=== PATIENT | female | born 1940 | race Caucasian/White ===

== ENCOUNTER 2019-12-01 10:47 | Inpatient (IN) | payer OTHER, SELFPAY ==
--- NOTE | 2019-12-01 10:50 | ED.WEAKNESS ---
HPI - Weakness General Chief complaint: Weakness Stated complaint: DIZZY,WEAK FOR DAYS Time Seen by Provider: 12/01/19 10:50 Source: patient and EMS Mode of arrival: EMS Limitations: no limitations History of Present Illness MD Complaint: generalized weakness Onset (ago): day(s) (3) Duration: constant Location: generalized Migration: none Severity: moderate Relieving factors: none Exacerbating factors: movement and exertion Associated symptoms: dysuria, loss of appetite and myalgias Related Data Home Medications Medication Instructions Recorded Confirmed albuterol sulfate mg INHALATION Q6H PRN 11/21/19 11/21/19 apixaban 5 mg tablet 5 mg PO BID 11/21/19 11/21/19 ascorbic acid (vitamin C) 500 mg PO 11/21/19 11/21/19 tablet atorvastatin 40 mg tablet mg PO 11/21/19 11/21/19 carvedilol 12.5 mg tablet 12.5 mg PO BID 11/21/19 11/21/19 cyanocobalamin (vitamin B-12) 1,000 mcg IM 11/21/19 11/21/19 1,000 mcg/mL injection solution dexlansoprazole 30 mg 30 mg PO DAILY 11/21/19 11/21/19 capsule,biphase delayed release duloxetine 30 mg capsule,delayed 30 mg PO DAILY 11/21/19 11/21/19 release fluticasone 500 mcg-salmeterol 50 INHALATION 11/21/19 11/21/19 mcg/dose blistr powdr for inhalation furosemide 40 mg tablet 40 mg PO BID 11/21/19 11/21/19 losartan 25 mg tablet 25 mg PO DAILY 11/21/19 11/21/19 losartan 50 mg tablet 75 mg PO DAILY 11/21/19 11/21/19 potassium chloride 10 mEq 10 meq PO BID 11/21/19 11/21/19 tablet,extended release sucralfate 100 mg/mL oral 10 ml PO BEDTIME 11/21/19 11/21/19 suspension syringe with needle, safety 3 mL #100 ea 11/21/19 11/21/19 25 gauge x 5/8 Previous Rx's Medication Instructions Recorded levothyroxine 100 mcg tablet 100 mcg PO QAM #90 tab 11/23/19 nitroglycerin 0.4 mg sublingual 0.4 mg SUBLINGUAL Q5M PRN #25 tab 11/30/19 tablet Allergies Allergy/AdvReac Type Severity Reaction Status Date / Time morphine [MORPHINE] Allergy Unknown RASH Verified 11/21/19 09:16 pregabalin [From LYRICA] Allergy Unknown NAUSEA, Verified 11/21/19 09:16 felt high on drugs Review of Systems Review of Systems: Constitutional : No Weight loss, No Fever, positive Chills, positive Fatigue, positive Malaise ENT/Mouth : No sore throat, No Rhinorrhea Eyes: No Eye Pain, No Swelling, No Redness Cardiovascular : No Chest Pain, No SOB, No Dyspnea on Exertion, No Orthopnea, No Edema, No Palpitations Respiratory : No Cough, No Sputum, No Wheezing Gastrointestinal : positive Nausea, No Vomiting, No Diarrhea, No Constipation, No abdominal Pain, No Hematochezia, No Melena Genitourinary : No Dysuria, positive hesitancy Musculoskeletal : No joint pain, No Myalgias, No Joint Swelling Skin : No Skin Lesions, No rash Neuro : positive Weakness, No Numbness, positive constant Dizziness, No Headache Psych : No Anxiety/Panic, No Depression Heme/Lymph: No Bruising, No Bleeding,No Lymphadenopathy Endocrine : No Polyuria, No Polydipsia All other systems reviewed and are negative [facility] Past Medical History Medical History (Updated 12/01/19 @ 15:31 by Germania Fraser DO) Afib Anxiety CAD (coronary artery disease) Clostridium difficile colitis Diverticulitis DVT (deep venous thrombosis) GERD (gastroesophageal reflux disease) HTN (hypertension) Hypercholesterolemia Surgical History H/O angioplasty H/O cardiac catheterization H/O: hysterectomy Hx of appendectomy Hx of cholecystectomy Social History Social History Alcohol intake: current Alcohol intake frequency: holidays/special occasions only Smoking Status: Former smoker Smoked in Last 30 Days: No Use of substances other than those prescribed or required for medical reasons: No Advance Directives: No Advance Directives Information Provided: Yes Physical Exam Vital Signs: Vital Signs: Vital Signs Temp Pulse Resp BP Pulse Ox 12/01/19 10:55 97.9 F 89 18 187/79 H 99 Body Mass Index 45.7 Appearance: Alert. Oriented X3. No acute distress. anxious Eyes: Pupils equal, round and reactive to light. ENT: Pharynx normal. Neck: Normal inspection. Neck supple. CVS: Normal heart rate and rhythm. Pulses normal. Respiratory: No respiratory distress. Breath sounds normal. Abdomen: Soft and nontender. Skin: Skin warm and dry. Normal skin color. Normal skin turgor. Extremities: No lower extremity edema. No calf ttp Neuro: Oriented X 3. No motor deficit. No sensory deficit. Course Course Course Narrative: given CT scan started antibiotics as well as rapid covid sent off plan for admit MDM - Weakness MDM Narrative Medical decision making narrative: 79 yo female on eliquis reports malaise, anorexia, feels dizzy all the time, no GIB symptoms, no CP/SOB, has chills at this time will need labs, CT head for ICH, UA, straight cath, gentle fluids, ortho VS, dispo per results and findings Lab Data Result diagrams: 12/01/19 11:32 12/01/19 12:00 Labs: Lab Results 12/01/19 12/01/19 12/01/19 Range/Units 11:31 11:32 11:32 WBC 7.5 (4.8-10.8) X10*3/uL RBC 4.12 L (4.20-5.50) X10*6/uL Hgb 11.8 L (12.0-16.0) g/dl Hct 37.5 (37-47) % MCV 91.0 (80-98) fL MCH 28.6 (27.0-33.0) pg MCHC 31.5 (31.0-35.0) g/dl RDW 12.7 (11.0-16.0) % Plt Count 236 (160-400) X10*3/uL MPV 9.5 (9.4-12.3) fL Immature Gran % (Auto) 0.8 H (0.0-0.4) % Neut % (Auto) 60.8 (45-73) % Lymph % (Auto) 27.5 (20-40) % Cottle % (Auto) 9.0 (2-11) % Eos % (Auto) 1.6 (0-4) % Baso % (Auto) 0.3 (0-2) % Lymph # (Auto) 2.1 (1.2-4.9) X10*3/uL Cottle # (Auto) 0.7 (0.1-1.2) X10*3/uL Eos # (Auto) 0.1 (0.0-0.4) X10*3/uL Baso # (Auto) 0.0 (0.0-0.2) X10*3/uL Abs Immat Gran (auto) 0.06 H (0.00-0.03) X10*3/uL Absolute Neuts (auto) 4.6 (2.0-8.3) X10*3/uL Absolute Nucleated RBC 0.000 (0.0-0.012) X10*3/uL Nucleated RBC % (auto) 0.0 (0.0-0.2) /100WBC PT (10.8-13.0) SEC INR (0.9-1.1) APTT (24.1-38.0) SEC Sodium (135-145) mmol/L Potassium (3.3-5.1) mmol/l Chloride (96-108) mmol/L Carbon Dioxide (22-29) mmol/L Anion Gap (12-20) BUN (9-16) mg/dL Creatinine (0.5-1.4) mg/dL Estim Creat Clear Calc Estimated GFR Random Glucose (60-115) mg/dL Lactic Acid 1.4 (0.5-2.0) mmol/L Calcium (8.4-10.2) mg/dL Magnesium (1.6-2.6) mg/dL Total Bilirubin (0.0-1.0) mg/dL Direct Bilirubin (0.0-0.5) mg/dL AST (5-31) U/L ALT (0-31) U/L Alkaline Phosphatase (39-117) U/L Troponin I High Sens 7.0 (<3.5-17.0) ng/L B-Natriuretic Peptide 99 (<100) pg/mL Total Protein (6.5-8.0) g/dL Albumin (3.5-5.0) g/dL Lipase (8-78) U/L Urine Color Urine Appearance Urine pH (5.0-8.0) Ur Specific [place] (1.005-1.025) Urine Protein (NEG-TRACE) MG/DL Urine Glucose (UA) (NEG) MG/DL Urine Ketones (NEG) MG/DL Urine Blood (NEG) Urine Nitrite (NEG) Ur Leukocyte Esterase (NEG) Urine RBC (0) /HPF Urine WBC (0-4) /HPF Ur Squamous Epith Cells /LPF Calcium Oxalate Crystal /LPF Urine Bacteria /LPF 12/01/19 12/01/19 12/01/19 Range/Units 12:00 12:00 12:17 WBC (4.8-10.8) X10*3/uL RBC (4.20-5.50) X10*6/uL Hgb (12.0-16.0) g/dl Hct (37-47) % MCV (80-98) fL MCH (27.0-33.0) pg MCHC (31.0-35.0) g/dl RDW (11.0-16.0) % Plt Count (160-400) X10*3/uL MPV (9.4-12.3) fL Immature Gran % (Auto) (0.0-0.4) % Neut % (Auto) (45-73) % Lymph % (Auto) (20-40) % Cottle % (Auto) (2-11) % Eos % (Auto) (0-4) % Baso % (Auto) (0-2) % Lymph # (Auto) (1.2-4.9) X10*3/uL [place]le # (Auto) (0.1-1.2) X10*3/uL Eos # (Auto) (0.0-0.4) X10*3/uL Baso # (Auto) (0.0-0.2) X10*3/uL Abs Immat Gran (auto) (0.00-0.03) X10*3/uL Absolute Neuts (auto) (2.0-8.3) X10*3/uL Absolute Nucleated RBC (0.0-0.012) X10*3/uL Nucleated RBC % (auto) (0.0-0.2) /100WBC PT 12.0 (10.8-13.0) SEC INR 1.0 (0.9-1.1) APTT 33.7 (24.1-38.0) SEC Sodium 142 (135-145) mmol/L Potassium 3.9 (3.3-5.1) mmol/l Chloride 106 (96-108) mmol/L Carbon Dioxide 29 (22-29) mmol/L Anion Gap 11 L (12-20) BUN 12 (9-16) mg/dL Creatinine 0.81 (0.5-1.4) mg/dL Estim Creat Clear Calc 64.5 Estimated GFR > 60 Random Glucose 101 (60-115) mg/dL Lactic Acid (0.5-2.0) mmol/L Calcium 8.5 (8.4-10.2) mg/dL Magnesium 1.9 (1.6-2.6) mg/dL Total Bilirubin 0.5 (0.0-1.0) mg/dL Direct Bilirubin 0.2 (0.0-0.5) mg/dL AST 13 (5-31) U/L ALT 11 (0-31) U/L Alkaline Phosphatase 175 H (39-117) U/L Troponin I High Sens (<3.5-17.0) ng/L B-Natriuretic Peptide (<100) pg/mL Total Protein 6.2 L (6.5-8.0) g/dL Albumin 3.7 (3.5-5.0) g/dL Lipase 10 (8-78) U/L Urine Color YELLOW Urine Appearance CLEAR Urine pH 6.0 (5.0-8.0) Ur Specific [place] 1.025 (1.005-1.025) Urine Protein NEG (NEG-TRACE) MG/DL Urine Glucose (UA) NEG (NEG) MG/DL Urine Ketones NEG (NEG) MG/DL Urine Blood NEG (NEG) Urine Nitrite NEG (NEG) Ur Leukocyte Esterase NEG (NEG) Urine RBC 0 (0) /HPF Urine WBC 0-2 (0-4) /HPF Ur Squamous Epith Cells TRACE /LPF Calcium Oxalate Crystal TRACE /LPF Urine Bacteria NONE /LPF ECG Data Attestation: I personally reviewed and interpreted this ECG as follows: ECG interpretation date: 12/01/19 ECG interpretation time: 11:34 Interpretation: Rate: 86 Rhythm: NSR [place]: normal Normal P waves. 1st degree AVB Normal QRS complex. poor R wave progression ST T wave : normal qTC: normal prior studies: no acute ischemia The study has been interpreted contemporaneously by me. . Discharge Plan Discharge Clinical Impression: Weakness, Pneumonia Patient Disposition: Admitted As Inpatient Prescriptions: No Action levothyroxine 100 mcg tablet 100 mcg PO QAM Qty: 90 RF: 1 nitroglycerin 0.4 mg tablet, sublingual 0.4 mg sublingual Q5M PRN (Reason: chest pain) Qty: 25 RF: 0 ascorbic acid (vitamin C) 500 mg tablet PO RF: 0 fluticasone propion-salmeterol 500-50 mcg/dose blister with device inhalation RF: 0 sucralfate 100 mg/mL suspension 10 ml PO BEDTIME RF: 0 Eliquis 5 mg tablet 5 mg PO BID RF: 0 losartan 50 mg tablet 75 mg PO DAILY RF: 0 carvedilol 12.5 mg tablet 12.5 mg PO BID RF: 0 furosemide 40 mg tablet 40 mg PO BID RF: 0 albuterol sulfate 2.5 mg /3 mL (0.083 %) solution for nebulization inhalation Q6H PRNRF: 0 Dexilant 30 mg capsule,biphase delayed releas 30 mg PO DAILY RF: 0 duloxetine 30 mg capsule,delayed release(DR/EC) 30 mg PO DAILY RF: 0 cyanocobalamin (vitamin B-12) 1,000 mcg/mL solution 1,000 mcg IM RF: 0 atorvastatin 40 mg tablet PO RF: 0 losartan 25 mg tablet 25 mg PO DAILY RF: 0 potassium chloride 10 mEq tablet extended release 10 meq PO BID RF: 0 (DME) BD Integra Syringe 3 mL 25 gauge x 5/8 syringe See Rx Instructions ml .ROUTE .MEDSUPPLY Qty: 100 RF: 0
[2019-12-01 10:55] VITALS: BP 187/79; PULSE 89; RESP 18; TEMP 36.6; O2SAT 99; BMI 45.7
--- NOTE | 2019-12-01 11:01 | XR_ITS ---
EXAMINATION: XR CHEST CLINICAL INFORMATION: Weakness COMPARISON: 12/17/2018 TECHNIQUE: Frontal view of the chest was obtained. FINDINGS: Rotated positioning. There is prominence of the cardiac silhouette, accentuated by the rotated positioning. Calcification of the aortic arch. There is opacity in the peripheral aspect of the left lower lung, which could be related to overlapping densities versus underlying airspace disease. Mild patchy opacity in the left upper lobe, new/more prominent than previous, could represent atelectasis or infiltrate. Blunting of the left costophrenic angle, from pleural thickening or trace pleural effusion. Monitor leads overlie the chest. Left shoulder hemiarthroplasty. IMPRESSION: 1. Opacity in the peripheral aspect of the left lower lung, could be related to overlapping densities versus airspace disease. Additional frontal and lateral radiographs can be obtained for further clarification as clinically warranted. Mild patchy opacity in the left upper lobe, could represent atelectasis or infiltrate. 2. Left costophrenic angle pleural thickening or trace pleural effusion.
--- NOTE | 2019-12-01 11:01 | CT_ITS ---
EXAMINATION: CT HEAD WITHOUT CONTRAST CLINICAL INFORMATION: Dizziness on Eliquis. COMPARISON: No prior CTs available for comparison. Correlation with MRI 04/26/2009. TECHNIQUE: Contiguous axial imaging was performed from the skull base to vertex without intravenous administration of contrast. This CT examination was performed using dose optimization techniques as appropriate, variously including the following: *Automated exposure control *Adjustment of mA and/or kV according to patient size (this includes techniques or standardized protocols for targeted exams where dose is matched to indication/reason for exam; i.e. extremities or head) *Use of iterative reconstruction technique DLP: 766 mGy-cm. FINDINGS: There is no evidence of acute intracranial hemorrhage or territorial infarction. No abnormal mass effect or midline shift is seen. [place] to white matter differentiation is well preserved. No extra-axial fluid collections are identified. Basal ganglia calcification. [id number] periventricular and deep white matter hypodensities, more commonly seen with chronic microangiopathic changes. The osseous structures and soft tissues are normal. Mild right ethmoid sinus mucosal thickening. The mastoid air cells and remainder of the visualized portions of the paranasal sinuses are well aerated. IMPRESSION: No CT evidence of acute intracranial pathology. Mild right ethmoid sinus mucosal thickening.
--- NOTE | 2019-12-01 11:01 | ECG_ITS ---
Test Reason : WEAKNESS Blood Pressure : / mmHG Vent. Rate : 086 BPM Atrial Rate : 086 BPM P-R Int : 208 ms QRS Dur : 088 ms QT Int : 370 ms P-R-T Axes : 047 071 104 degrees QTc Int : 442 ms Normal sinus rhythm Nonspecific ST abnormality T-wave inversion in Lateral leads Abnormal ECG When compared with ECG of 12-JUN-2019 10:31, Premature ventricular complexes are no longer Present Nonspecific T wave abnormality, improved in Lateral leads Referred By: Germania Fraser Electronically Signed By:KAN MILLIGAN MD
[2019-12-01] MEDS: Meclizine HCl 25 MG TABLET PO (11:29)
[2019-12-01] MEDS: ondansetron HCL 4 MG/2 ML VIAL IVPUSH (11:29)
[2019-12-01] MEDS: 0.9 % Sodium Chloride 500 ML 1000 ML IV (11:30)
[2019-12-01 11:47] LABS: MANUAL DIFF FLAG NO
[2019-12-01 11:54] LABS: Basophils Percent Auto 0.3 % (0-2); Eosinophils Absolute Auto 0.1 X10*3/uL (0.0-0.4); Eosinophils Percent Auto 1.6 % (0-4); Hematocrit 37.5 % (37-47); Hemoglobin 11.8 g/dl (12.0-16.0); Imm Gran Abs Auto 0.06 X10*3/uL (0.00-0.03); Imm Gran Pct Auto 0.8 % (0.0-0.4); Lymphocytes Absolute Auto 2.1 X10*3/uL (1.2-4.9); Lymphocytes Percent Auto 27.5 % (20-40); Mean Corpuscular HGB Conc 31.5 g/dl (31.0-35.0); Mean Corpuscular Hemoglobin 28.6 pg (27.0-33.0); Mean Platelet Volume 9.5 fL (9.4-12.3); Monocytes Absolute Auto 0.7 X10*3/uL (0.1-1.2); Neutrophils Absolute Auto 4.6 X10*3/uL (2.0-8.3); Neutrophils Percent Auto 60.8 % (45-73); Platelet Count 236 X10*3/uL (160-400); Red Blood Count 4.12 X10*6/uL (4.20-5.50); Red Cell Distribution Width 12.7 % (11.0-16.0); White Blood Count 7.5 X10*3/uL (4.8-10.8)
[2019-12-01 12:14] LABS: Lactic Acid 1.4 mmol/L (0.5-2.0)
[2019-12-01 12:20] LABS: Partial Thromboplastin Time 33.7 SEC (24.1-38.0)
[2019-12-01 12:25] LABS: B Type Natriuretic Peptide 99 pg/mL (<100)
[2019-12-01 12:35] LABS: Alanine Aminotransferase 11 U/L (0-31); Albumin Level 3.7 g/dL (3.5-5.0); Alkaline Phosphatase 175 U/L (39-117); Anion Gap 11 (12-20); Aspartate Amino Transferase 13 U/L (5-31); Bilirubin Direct 0.2 mg/dL (0.0-0.5); Bilirubin Total 0.5 mg/dL (0.0-1.0); Blood Urea Nitrogen 12 mg/dL (9-16); Calcium 8.5 mg/dL (8.4-10.2); Carbon Dioxide 29 mmol/L (22-29); Chloride 106 mmol/L (96-108); Creatinine Clr Calc Pharmacy 64.5; Estimated Glomerular Filt Rate > 60; Glucose Random 101 mg/dL (60-115); Lipase 10 U/L (8-78); Magnesium 1.9 mg/dL (1.6-2.6); Potassium 3.9 mmol/l (3.3-5.1); Sodium 142 mmol/L (135-145); Total Protein 6.2 g/dL (6.5-8.0)
[2019-12-01 12:47] LABS: Glucose Urine UA NEG (NEG); Leukocyte Esterase Urine NEG (NEG); Nitrite Urine NEG (NEG); Specific Gravity - Urine 1.025 (1.005-1.025); Urine Blood NEG (NEG); Urine Ketones NEG (NEG); Urine Protein NEG (NEG-TRACE)
[2019-12-01 12:53] LABS: Appearance Urine CLEAR; Color Urine YELLOW
[2019-12-01 13:19] LABS: RBC Urine 0 /HPF (0); Squamous Epithelial Cell Urine TRACE /LPF; WBC Urine 0-2 /HPF (0-4)
[2019-12-01 13:20] LABS: Calcium Oxalate Crystals Urine TRACE /LPF
--- NOTE | 2019-12-01 13:36 | CT_ITS ---
EXAMINATION: CT CHEST WITHOUT CONTRAST CLINICAL INFORMATION: Evaluate for pneumonia. COMPARISON: Prior chest x-ray from earlier today. TECHNIQUE: Multidetector volumetric CT imaging of the chest was done. Axial MIP volume rendering provided. Sagittal and coronal reformatted images were obtained. This CT examination was performed using dose optimization techniques as appropriate, variously including the following: *Automated exposure control *Adjustment of mA and/or kV according to patient size (this includes techniques or standardized protocols for targeted exams where dose is matched to indication/reason for exam; i.e. extremities or head) *Use of iterative reconstruction technique DLP: 476 mGy-cm FINDINGS: LUNGS: Trachea and central airway are patent. There is airspace and ground-glass opacity in the peripheral aspect of the left lower lobe, as well as in the peripheral left lower lobe. Area of ground-glass opacity in the left upper lobe, for example image 4:18. This could represent infectious or inflammatory process. Mild ground-glass and airspace opacity in the superior peripheral aspect of the left lower lobe. Linear opacities in the inferior lingula adjacent the cardiac silhouette, which could represent atelectasis or infiltrate. MEDIASTINUM: Subcentimeter lymph nodes in the mediastinum, larger measuring 8.5 mm in short axis. No hilar lymphadenopathy. Streak artifact limits evaluation of the thyroid gland. Normal caliber aorta with atherosclerotic vascular calcification. Coronary artery calcification. Normal heart size. No pericardial effusion. There are surgical clips in the posterior mediastinum. PLEURA: There is no pleural effusion. No pleural mass or thickening. AXILLA: No lymphadenopathy. UPPER ABDOMEN: Right renal 4.4 cm cyst. Transverse colon diverticulosis. OSSEOUS STRUCTURES: Multilevel disc degeneration in the visualized thoracolumbar spine. Arthroplasty of the left humerus. IMPRESSION: 1. Airspace opacities and ground glass opacities, in the left upper lobe, left lower lobe, which could reflect infectious or inflammatory process. Linear opacities in the inferior lingula adjacent to the cardiac silhouette could represent atelectasis or infiltrate. 2. Right renal 4.4 cm cyst.
--- NOTE | 2019-12-01 15:51 | PM.EVENT ---
Event Note Event Note: I saw and examined the patient and participated in the alva portion of the E/M service. I agree with the history and exam as documented by [employer]OR [employer]. She presents with weakness, and PNA on CXR. Will admit for IV Abx for PNA, check covid and Physical therapy. Otherwise, I agree with assessment and plan as outlined in the H and P.
[2019-12-01 15:59] VITALS: BP 147/54; PULSE 87; RESP 16
[2019-12-01 16:22] LABS: C Reactive Protein 1.47 mg/dL (< or = 0.50); Lactate Dehydrogenase 89 U/L (122-220)
[2019-12-01 16:27] LABS: Procalcitonin 0.03 ng/mL
[2019-12-01] MEDS: cefTRIAXone sodium 1 GM in 0.9 % Sodium Chloride 50 ML IV (16:37)
[2019-12-01] MEDS: Azithromycin 500 MG TABLET PO (16:38)
[2019-12-01 16:43] LABS: Ferritin 60 ng/mL (10-250)
[2019-12-01 16:44] LABS: SARS COV2 PCR INHOUSE NEGATIVE (Negative)
--- NOTE | 2019-12-01 16:53 | PC.NURSE ---
PT IS A TOUGH STICK. IV LINE INFILTRATED. MULTIPLE RNS ATTEMPTED. PAT RN TO ATTEMPT AND US GUIDED NEEDED.
--- NOTE | 2019-12-01 17:43 | PM.IMHP ---
History of Present Illness Date of Service: 12/01/19 <Marlyn Shook NP - Last Filed: 12/01/19 17:54> Chief Complaint: Weakness <Marlyn Shook NP - Last Filed: 12/01/19 17:54> 79-year-old woman presenting to the ER with complaints of several days of weakness, chills, cough with thick sputum. She denied fever, sick contacts, recent travel. She did report that she has aides that come into her house to help. She denies chest pain, nausea, vomiting, diarrhea. She reported that she was also felt quite weak and having difficulty with ambulation. Chest CT in the ER showed airspace opacities in ground-glass of PC in the left lower lobe left lower lobe. Her coronavirus PCR was negative. She was not noted to have a fever or leukocytosis. All of her labs within acceptable limits. In the ER , she was given a dose of ceftriaxone, azithromycin, Zofran, half a L of IV fluid and meclizine. to be admitted for further management treatment community-acquired pneumonia. <Marlyn Shook NP - Last Filed: 12/01/19 17:54> Review of Systems Review of Systems: Denies any recent fever, or decrease in appetite respiratory See HPI cardiovascular is adjustment of any PND or edema gastrointestinal denies any dysphagia abdominal pain nausea vomiting or diarrhea genitourinary reports dysuria musculoskeletal denies any joint pain or swelling neuropsych denies any weakness or seizures all other systems reviewed are negative <Marlyn Shook NP - Last Filed: 12/01/19 17:54> [facility] Medical History: Medical History (Updated 12/07/19 @ 12:19 by Jet Toribio MD) Afib Anxiety CAD (coronary artery disease) Clostridium difficile colitis Diverticulitis DVT (deep venous thrombosis) GERD (gastroesophageal reflux disease) HTN (hypertension) Hypercholesterolemia <Marlyn Shook NP - Last Filed: 12/01/19 17:54> Functional capacity: uses cane/walker <Marlyn Shook NP - Last Filed: 12/01/19 17:54> Pertinent family history: denies cardiac disease <Marlyn Shook NP - Last Filed: 12/01/19 17:54> Surgical History: Surgical History H/O angioplasty H/O cardiac catheterization H/O: hysterectomy Hx of appendectomy Hx of cholecystectomy <aMrlyn Shook NP - Last Filed: 12/01/19 17:54> Social History: Social History Housing: House Alcohol intake: current Alcohol intake frequency: holidays/special occasions only Smoking Status: Former smoker Second Hand Smoke Exposure: No service: No Current occupational status: retired <Marlyn Shook NP - Last Filed: 12/01/19 17:54> Meds Allergies/Adverse reactions: Allergies Allergy/AdvReac Type Severity Reaction Status Date / Time morphine [MORPHINE] Allergy Unknown RASH Verified 11/21/19 09:16 pregabalin [From LYRICA] Allergy Unknown NAUSEA, Verified 11/21/19 09:16 felt high on drugs <Marlyn Shook NP - Last Filed: 12/01/19 17:54> Home medications: Home Medications Medication Instructions Recorded Confirmed Type ascorbic acid (vitamin C) 500 mg 500 mg PO BID 11/21/19 12/01/19 History tablet atorvastatin 40 mg tablet 40 mg PO BEDTIME 11/21/19 12/01/19 History carvedilol 12.5 mg tablet 12.5 mg PO BID 11/21/19 12/01/19 History cyanocobalamin (vitamin B-12) 1,000 mcg IM Q30D 11/21/19 12/01/19 History 1,000 mcg/mL injection solution dexlansoprazole 30 mg 30 mg PO DAILY 11/21/19 12/01/19 History capsule,biphase delayed release duloxetine 30 mg capsule,delayed 30 mg PO DAILY 11/21/19 12/01/19 History release fluticasone 500 mcg-salmeterol 50 1 inh INHALATION BID 11/21/19 12/01/19 History mcg/dose blistr powdr for inhalation furosemide 40 mg tablet 40 mg PO DAILY 11/21/19 12/01/19 History losartan 50 mg tablet 75 mg PO DAILY 11/21/19 12/01/19 History sucralfate 100 mg/mL oral 1 g PO BEDTIME 11/21/19 12/01/19 History suspension syringe with needle, safety 3 mL #100 ea 11/21/19 11/21/19 History 25 gauge x 5/8 Spiriva with HandiHaler 1 cap INHALATION DAILY 12/01/19 12/01/19 History albuterol sulfate 2.5 mg INHALATION Q6H PRN 12/01/19 12/01/19 History albuterol sulfate [ProAir HFA] 2 puff INHALATION Q4H PRN 12/01/19 12/01/19 History aspirin 81 mg PO DAILY 12/01/19 12/01/19 History cholecalciferol (vitamin D3) 25 mcg PO DAILY 12/01/19 12/01/19 History [Vitamin D3] dicyclomine 10 mg PO QID PRN 12/01/19 12/01/19 History ezetimibe [Zetia] 10 mg PO DAILY 12/01/19 12/01/19 History ferrous sulfate 325 mg PO DAILY 12/01/19 12/01/19 History <Marlyn Shook NP - Last Filed: 12/01/19 17:54> Physical Exam Vital Signs and Narrative: Vital Signs: Last Vital Signs Temp 97.9 F 12/01/19 10:55 Pulse 87 12/01/19 15:59 Resp 16 12/01/19 15:59 BP 147/54 H 12/01/19 15:59 Pulse Ox 99 12/01/19 10:55 Body Mass Index 45.7 <Marlyn Shook NP - Last Filed: 12/01/19 17:54> Appearing in no acute distress head is normocephalic atraumatic eyes pupils are PERRLA sclera is anicteric mouth throat mucous membranes are intact and moist neck is supple no lymphadenopathy, no JVD noted lung sounds diminished throughout heart regular rate rhythm, clear S1, S2 positive bowel sounds, abdomen is soft, nontender, obese neuro patient is alert x3, no focal deficits <Marlyn Shook NP - Last Filed: 12/01/19 17:54> Results Labs Labs: Laboratory Tests 12/01/19 12/01/19 12/01/19 11:31 11:32 11:32 WBC 7.5 RBC 4.12 L Hgb 11.8 L Hct 37.5 MCV 91.0 MCH 28.6 MCHC 31.5 RDW 12.7 Plt Count 236 MPV 9.5 Immature Gran % (Auto) 0.8 H Neut % (Auto) 60.8 Lymph % (Auto) 27.5 Louisa % (Auto) 9.0 Eos % (Auto) 1.6 Baso % (Auto) 0.3 Lymph # (Auto) 2.1 Louisa # (Auto) 0.7 Eos # (Auto) 0.1 Baso # (Auto) 0.0 Abs Immat Gran (auto) 0.06 H Absolute Neuts (auto) 4.6 Absolute Nucleated RBC 0.000 Nucleated RBC % (auto) 0.0 PT INR APTT Sodium Potassium Chloride Carbon Dioxide Anion Gap BUN Creatinine Estim Creat Clear Calc Estimated GFR Random Glucose Lactic Acid 1.4 Calcium Magnesium Ferritin Total Bilirubin Direct Bilirubin AST ALT Alkaline Phosphatase Lactate Dehydrogenase Troponin I High Sens 7.0 C-Reactive Protein B-Natriuretic Peptide 99 Total Protein Albumin Lipase Procalcitonin Urine Color Urine Appearance Urine pH Ur Specific [place] Urine Protein Urine Glucose (UA) Urine Ketones Urine Blood Urine Nitrite Ur Leukocyte Esterase Urine RBC Urine WBC Ur Squamous Epith Cells Calcium Oxalate Crystal Urine Bacteria Coronavirus (PCR) 12/01/19 12/01/19 12/01/19 12:00 12:00 12:00 WBC RBC Hgb Hct MCV MCH MCHC RDW Plt Count MPV Immature Gran % (Auto) Neut % (Auto) Lymph % (Auto) Louisa % (Auto) Eos % (Auto) Baso % (Auto) Lymph # (Auto) Louisa # (Auto) Eos # (Auto) Baso # (Auto) Abs Immat Gran (auto) Absolute Neuts (auto) Absolute Nucleated RBC Nucleated RBC % (auto) PT 12.0 INR 1.0 APTT 33.7 Sodium 142 Potassium 3.9 Chloride 106 Carbon Dioxide 29 Anion Gap 11 L BUN 12 Creatinine 0.81 Estim Creat Clear Calc 64.5 Estimated GFR > 60 Random Glucose 101 Lactic Acid Calcium 8.5 Magnesium 1.9 Ferritin 60 Total Bilirubin 0.5 Direct Bilirubin 0.2 AST 13 ALT 11 Alkaline Phosphatase 175 H Lactate Dehydrogenase 89 L Troponin I High Sens C-Reactive Protein 1.47 H B-Natriuretic Peptide Total Protein 6.2 L Albumin 3.7 Lipase 10 Procalcitonin 0.03 Urine Color Urine Appearance Urine pH Ur Specific [place] Urine Protein Urine Glucose (UA) Urine Ketones Urine Blood Urine Nitrite Ur Leukocyte Esterase Urine RBC Urine WBC Ur Squamous Epith Cells Calcium Oxalate Crystal Urine Bacteria Coronavirus (PCR) 12/01/19 12/01/19 12:17 15:35 WBC RBC Hgb Hct MCV MCH MCHC RDW Plt Count MPV Immature Gran % (Auto) Neut % (Auto) Lymph % (Auto) Louisa % (Auto) Eos % (Auto) Baso % (Auto) Lymph # (Auto) Louisa # (Auto) Eos # (Auto) Baso # (Auto) Abs Immat Gran (auto) Absolute Neuts (auto) Absolute Nucleated RBC Nucleated RBC % (auto) PT INR APTT Sodium Potassium Chloride Carbon Dioxide Anion Gap BUN Creatinine Estim Creat Clear Calc Estimated GFR Random Glucose Lactic Acid Calcium Magnesium Ferritin Total Bilirubin Direct Bilirubin AST ALT Alkaline Phosphatase Lactate Dehydrogenase Troponin I High Sens C-Reactive Protein B-Natriuretic Peptide Total Protein Albumin Lipase Procalcitonin Urine Color YELLOW Urine Appearance CLEAR Urine pH 6.0 Ur Specific [place] 1.025 Urine Protein NEG Urine Glucose (UA) NEG Urine Ketones NEG Urine Blood NEG Urine Nitrite NEG Ur Leukocyte Esterase NEG Urine RBC 0 Urine WBC 0-2 Ur Squamous Epith Cells TRACE Calcium Oxalate Crystal TRACE Urine Bacteria NONE Coronavirus (PCR) NEGATIVE <Marlyn Shook NP - Last Filed: 12/01/19 17:54> Assessment and Plan (1) Community acquired pneumonia: Status: Acute <Marlyn Shook NP - Last Filed: 12/01/19 17:54> (2) Weakness: Status: Acute <Marlyn Shook NP - Last Filed: 12/01/19 17:54> (3) Hypercholesterolemia: Status: Acute <Marlyn Shook NP - Last Filed: 12/01/19 17:54> (4) HTN (hypertension): Status: Inactive <Marlyn Shook NP - Last Filed: 12/01/19 17:54> (5) CAD (coronary artery disease): Status: Acute <Marlyn Shook NP - Last Filed: 12/01/19 17:54> 79-year-old woman admitted with community-acquired pneumonia and weakness. Community-acquired pneumonia. Rocephin, azithromycin, Robitussin for cough, supplemental oxygen as needed. Weakness. Physical therapy evaluation. Hypertension. Home medications. History of atrial fibrillation. Continue Eliquis and carvedilol. History of coronary artery disease. Continue statin and beta-becca. Obesity. BMI 45.7. Likely contributing to worsening medical conditions include hypertension. DVT prophylaxis with Eliquis Case discussed with Dr. Christy Full code <Marlyn Shook NP - Last Filed: 12/01/19 17:54>
--- NOTE | 2019-12-01 17:44 | PC.NURSE ---
CALL FOR REPORT TO [facility]3 STATES UNAWARE OF GETTING THE ADMISSION AND THE BED ISNT CLEAN
--- NOTE | 2019-12-01 18:09 | PC.NURSE ---
REPORT GIVEN TO JANAK ON S3
--- NOTE | 2019-12-01 18:39 | PC.NURSE ---
PT VOIDED IN BED [facility], CLEANED UP AND REPOSITIONED. AWAITING TRANSFER TO [facility] FOR ADMISSION.
--- NOTE | 2019-12-01 20:05 | PC.NURSE ---
raissa guido will call back for report.
[2019-12-01 20:49] VITALS: BP 143/63; PULSE 87; RESP 16; TEMP 36.9; O2SAT 96
[2019-12-01 21:58] VITALS: BP 146/64; PULSE 81; RESP 20; TEMP 36.5; O2SAT 97
[2019-12-01] MEDS: Ascorbic Acid 500 MG TABLET PO (22:35)
[2019-12-01 22:36] VITALS: BP 146/76; PULSE 84
[2019-12-01] MEDS: Apixaban 5 MG TABLET PO (22:36)
[2019-12-01] MEDS: Atorvastatin Calcium 40 MG TABLET PO (22:36)
[2019-12-01] MEDS: carvediloL 12.5 MG TABLET PO (22:36)
[2019-12-01] MEDS: 0.9 % Sodium Chloride Flush 3 ML SYRINGE IVFLUSH (22:49)
[2019-12-01 23:16] VITALS: BP 148/46; PULSE 85; RESP 19; TEMP 36.1
[2019-12-02] VITALS (8 sets, daily range): BP systolic 119–154; BP diastolic 48–73; PULSE 60–84; RESP 16–19; TEMP 35.6–37.1; O2SAT 95–97; BMI 45.7
[2019-12-02] MEDS: Levothyroxine Sodium 100 MCG TABLET PO (05:59)
[2019-12-02 06:23] LABS: MANUAL DIFF FLAG NO
[2019-12-02 06:50] LABS: Basophils Percent Auto 0.3 % (0-2); Eosinophils Absolute Auto 0.1 X10*3/uL (0.0-0.4); Eosinophils Percent Auto 1.7 % (0-4); Hemoglobin 11.2 g/dl (12.0-16.0); Imm Gran Abs Auto 0.04 X10*3/uL (0.00-0.03); Imm Gran Pct Auto 0.6 % (0.0-0.4); Lymphocytes Absolute Auto 2.1 X10*3/uL (1.2-4.9); Lymphocytes Percent Auto 32.6 % (20-40); Mean Corpuscular HGB Conc 31.1 g/dl (31.0-35.0); Mean Corpuscular Hemoglobin 28.8 pg (27.0-33.0); Mean Corpuscular Volume 92.5 fL (80-98); Mean Platelet Volume 9.7 fL (9.4-12.3); Monocytes Absolute Auto 0.8 X10*3/uL (0.1-1.2); Monocytes Percent Auto 11.8 % (2-11); Neutrophils Absolute Auto 3.5 X10*3/uL (2.0-8.3); Platelet Count 203 X10*3/uL (160-400); Red Blood Count 3.89 X10*6/uL (4.20-5.50); Red Cell Distribution Width 12.8 % (11.0-16.0); White Blood Count 6.5 X10*3/uL (4.8-10.8)
[2019-12-02 06:59] LABS: Anion Gap 10 (12-20); Blood Urea Nitrogen 13 mg/dL (9-16); Calcium 8.6 mg/dL (8.4-10.2); Carbon Dioxide 31 mmol/L (22-29); Chloride 107 mmol/L (96-108); Creatinine Clr Calc Pharmacy 64.5; Estimated Glomerular Filt Rate > 60; Glucose Random 104 mg/dL (60-115); Potassium 4.2 mmol/l (3.3-5.1); Sodium 144 mmol/L (135-145)
[2019-12-02] MEDS: Aspirin 81 MG TAB.CHEW PO (08:40)
[2019-12-02] MEDS: carvediloL 12.5 MG TABLET PO ×2 (08:41→21:21)
[2019-12-02] MEDS: Losartan Potassium 25 MG TABLET 75 MG PO (08:41)
[2019-12-02] MEDS: DULoxetine HCl 30 MG CAPSULE.DR PO (08:41)
[2019-12-02] MEDS: Ezetimibe 10 MG TABLET PO (08:41)
[2019-12-02] MEDS: Cholecalciferol (Vitamin D3) 25 MCG TABLET PO (08:41)
[2019-12-02] MEDS: Apixaban 5 MG TABLET PO ×2 (08:41→21:20)
[2019-12-02] MEDS: Ferrous Sulfate 324 MG TABLET.DR PO (08:41)
[2019-12-02] MEDS: Ascorbic Acid 500 MG TABLET PO ×2 (08:42→21:21)
[2019-12-02] MEDS: 0.9 % Sodium Chloride Flush 3 ML SYRINGE IVFLUSH ×3 (08:42→23:34)
--- NOTE | 2019-12-02 13:00 | MHC.CM.PN ---
IMM 12/02/19 Female 79 DX CAP. Pt lives alone with assist [facility] daily x [address] [facility] in place. Pt uses walker/cane as needed. DP home resumption [employer] [facility] + [facility]. CM will follow.
--- NOTE | 2019-12-02 13:01 | HO.PM.IMPN ---
Subjective Subjective Date of Service: 12/02/19 Interval History: Seen in follow up for CAP. Generally still doesn't feel good Physical Exam Vital Signs: Vital Signs: Selected Entries 12/02/19 11:14 Temperature 97.7 F Pulse Rate 77 Respiratory Rate 16 Blood Pressure 135/66 Pulse Oximetry 96 Oxygen Flow Rate 2 Appearing in no acute distress head is normocephalic atraumatic eyes pupils are PERRLA sclera is anicteric mouth throat mucous membranes are intact and moist neck is supple no lymphadenopathy, no JVD noted lung sounds diminished throughout heart regular rate rhythm, clear S1, S2 positive bowel sounds, abdomen is soft, nontender, obese neuro patient is alert x3, no focal deficits Objective Data Current Medications Generic Name Dose Route Start Last Admin Trade Name Freq PRN Reason Stop Dose Admin Acetaminophen 650 mg 12/01/19 20:57 Acetaminophen 325 Mg Tablet PO Q6H PRN Pain, Mild (Pain Scale 1-3) Apixaban 5 mg 12/01/19 21:00 12/02/19 08:41 Apixaban 5 Mg Tablet PO 5 mg BID DANIEL Administration Ascorbic Acid 500 mg 12/01/19 21:00 12/02/19 08:42 Ascorbic Acid 500 Mg Tablet PO 500 mg BID DANIEL Administration Aspirin 81 mg 12/02/19 09:00 12/02/19 08:40 Aspirin 81 Mg Tab.Chew PO 81 mg DAILY DANIEL Administration Atorvastatin Calcium 40 mg 12/01/19 21:00 12/01/19 22:36 Atorvastatin Calcium 40 Mg Tablet PO 40 mg BEDTIME DANIEL Administration Carvedilol 12.5 mg 12/01/19 21:00 12/02/19 08:41 Carvedilol 12.5 Mg Tablet PO 12.5 mg BID DANIEL Administration Protocol Cyanocobalamin 1,000 mcg 12/16/19 10:00 Cyanocobalamin (Vitamin B-12) 1,000 Mcg/Ml Vial IM Q30D DANIEL Dicyclomine HCl 10 mg 12/01/19 20:57 Dicyclomine Hcl 10 Mg Capsule PO QID PRN Abdominal Pain Duloxetine HCl 30 mg 12/02/19 09:00 12/02/19 08:41 Duloxetine Hcl 30 Mg Capsule.Dr PO 30 mg DAILY DANIEL Administration Ezetimibe 10 mg 12/02/19 09:00 12/02/19 08:41 Ezetimibe 10 Mg Tablet PO 10 mg DAILY DANIEL Administration Ferrous Sulfate 324 mg 12/02/19 09:00 12/02/19 08:41 Ferrous Sulfate 324 Mg Tablet. PO 324 mg DAILY DANIEL Administration Furosemide 40 mg 12/01/19 20:57 Furosemide 40 Mg Tablet PO DAILY PRN SWELLING Protocol Guaifenesin/Dextromethorphan 5 ml 12/01/19 20:57 Guaifenesin Dm 100/10/5 Ml 5 Ml Syrup PO Q4H PRN cough Ceftriaxone Sodium 1 gm/ 50 mls @ 100 mls/hr 12/02/19 15:00 Sodium Chloride IV Q24H DANIEL Azithromycin 500 mg/ Sodium 250 mls @ 250 mls/hr 12/02/19 15:00 Chloride IV Q24H DANIEL Levothyroxine Sodium 100 mcg 12/02/19 06:30 12/02/19 05:59 Levothyroxine Sodium 100 Mcg Tablet PO 100 mcg DAILY@0630 DANIEL Administration Losartan Potassium 75 mg 12/02/19 09:00 12/02/19 08:41 Losartan Potassium 25 Mg Tablet PO 75 mg DAILY DANIEL Administration Protocol Nitroglycerin 0.4 mg 12/01/19 20:57 Nitroglycerin 0.4 Mg Tab.Subl SUBLINGUAL Q5M PRN chest pain Non-Formulary Medication 30 mg 12/02/19 09:00 Dexlansoprazole PO DAILY [facility] Ondansetron HCl 4 mg 12/01/19 20:57 Ondansetron Hcl 4 Mg/2 Ml Vial IVPUSH Q8H PRN Nausea and Vomiting Pharmacy Consult 1 each 12/01/19 17:36 Consult Rx Perform Med Rec MISCELLANE ONCE PRN Consult order Potassium Chloride 10 meq 12/01/19 21:00 12/02/19 08:40 Potassium Chloride Er 10 Meq Capsule.Er PO 10 meq BID DANIEL Administration Sodium Chloride 3 ml 12/02/19 00:00 12/02/19 08:42 0.9 % Sodium Chloride Flush 3 Ml Syringe IVFLUSH 3 ml QSHIFT [facility] Administration Sucralfate 1 gm 12/01/19 21:00 12/01/19 22:38 Sucralfate 1 Gm/10 Ml Oral.Susp PO 1 gm BEDTIME DANIEL Administration Vitamin D 25 mcg 12/02/19 09:00 12/02/19 08:41 Cholecalciferol (Vitamin D3) 25 Mcg Tablet PO 25 mcg DAILY DANIEL Administration Labs CBC & Chem 7: 12/02/19 05:56 12/02/19 05:56 Assessment and Plan (1) Community acquired pneumonia: Status: Acute (2) Weakness: Status: Acute (3) Hypercholesterolemia: Status: Acute (4) HTN (hypertension): Status: Inactive (5) CAD (coronary artery disease): Status: Acute Assessment and Plan: 79-year-old woman admitted with community-acquired pneumonia and weakness. Community-acquired pneumonia. Clinically stable, still feels fairly weak Rocephin, azithromycin, Robitussin for cough, supplemental oxygen as needed. Weakness. Physical therapy evaluation before dc Hypertension. Home medications (coreg, Lasix) History of atrial fibrillation. Continue Eliquis and carvedilol. History of coronary artery disease. Continue statin and beta-becca. Obesity. BMI 45.7. Likely contributing to worsening medical conditions include hypertension AFIB rate controlled, continue Coreg and Eliquis
[2019-12-02] MEDS: cefTRIAXone sodium 1 GM in 0.9 % Sodium Chloride 50 ML IV (16:06)
[2019-12-02] MEDS: Azithromycin 500 MG in 0.9 % Sodium Chloride 250 ML 250 MG IV (17:01)
[2019-12-02] MEDS: Atorvastatin Calcium 40 MG TABLET PO (21:21)
[2019-12-03] VITALS (10 sets, daily range): BP systolic 116–160; BP diastolic 58–84; PULSE 73–91; RESP 16–20; TEMP 36.4–36.7; O2SAT 94–98
[2019-12-03] MEDS: Levothyroxine Sodium 100 MCG TABLET PO (06:14)
[2019-12-03] MEDS: Ezetimibe 10 MG TABLET PO (08:56)
[2019-12-03] MEDS: Ascorbic Acid 500 MG TABLET PO ×2 (08:56→20:18)
[2019-12-03] MEDS: DULoxetine HCl 30 MG CAPSULE.DR PO (08:56)
[2019-12-03] MEDS: carvediloL 12.5 MG TABLET PO ×2 (08:56→20:19)
[2019-12-03] MEDS: Ferrous Sulfate 324 MG TABLET.DR PO (08:57)
[2019-12-03] MEDS: Aspirin 81 MG TAB.CHEW PO (08:57)
[2019-12-03] MEDS: Losartan Potassium 25 MG TABLET 75 MG PO (08:57)
[2019-12-03] MEDS: Cholecalciferol (Vitamin D3) 25 MCG TABLET PO (08:57)
[2019-12-03] MEDS: Apixaban 5 MG TABLET PO ×2 (08:57→20:18)
[2019-12-03] MEDS: 0.9 % Sodium Chloride Flush 3 ML SYRINGE IVFLUSH ×3 (08:57→20:19)
--- NOTE | 2019-12-03 11:13 | HO.PM.IMPN ---
Subjective Subjective Interval History: Seen in follow up for CAP. She feels a little better but c/o vertigo this morning. She did well with ambulation Physical Exam Vital Signs: Vital Signs: Vital Signs Temp Pulse Resp BP Pulse Ox 12/03/19 11:01 85 126/59 L 12/03/19 08:57 85 126/59 L 12/03/19 08:56 85 126/59 L 12/03/19 07:17 97.8 F 85 16 126/59 L 95 12/03/19 00:00 97.7 F 79 20 116/58 L 94 12/02/19 21:21 84 147/73 H 12/02/19 19:34 98.7 F 83 18 139/66 95 12/02/19 15:18 98 F 83 18 154/71 H 96 12/02/19 11:14 97.7 F 77 16 135/66 96 Body Mass Index 45.7 Appearing in no acute distress head is normocephalic atraumatic eyes pupils are PERRLA sclera is anicteric mouth throat mucous membranes are intact and moist neck is supple no lymphadenopathy, no JVD noted lung sounds diminished throughout heart regular rate rhythm, clear S1, S2 positive bowel sounds, abdomen is soft, nontender, obese neuro patient is alert x3, no focal deficits Objective Data Current Medications Generic Name Dose Route Start Last Admin Trade Name Francescoq PRN Reason Stop Dose Admin Acetaminophen 650 mg 12/01/19 20:57 Acetaminophen 325 Mg Tablet PO Q6H PRN Pain, Mild (Pain Scale 1-3) Apixaban 5 mg 12/01/19 21:00 12/03/19 08:57 Apixaban 5 Mg Tablet PO 5 mg BID DANIEL Administration Ascorbic Acid 500 mg 12/01/19 21:00 12/03/19 08:56 Ascorbic Acid 500 Mg Tablet PO 500 mg BID DANIEL Administration Aspirin 81 mg 12/02/19 09:00 12/03/19 08:57 Aspirin 81 Mg Tab.Chew PO 81 mg DAILY DANIEL Administration Atorvastatin Calcium 40 mg 12/01/19 21:00 12/02/19 21:21 Atorvastatin Calcium 40 Mg Tablet PO 40 mg BEDTIME DANIEL Administration Carvedilol 12.5 mg 12/01/19 21:00 12/03/19 08:56 Carvedilol 12.5 Mg Tablet PO 12.5 mg BID DANIEL Administration Protocol Cyanocobalamin 1,000 mcg 12/16/19 10:00 Cyanocobalamin (Vitamin B-12) 1,000 Mcg/Ml Vial IM Q30D [facility] Dicyclomine HCl 10 mg 12/01/19 20:57 Dicyclomine Hcl 10 Mg Capsule PO QID PRN Abdominal Pain Duloxetine HCl 30 mg 12/02/19 09:00 12/03/19 08:56 Duloxetine Hcl 30 Mg Capsule. PO 30 mg DAILY DANIEL Administration Ezetimibe 10 mg 12/02/19 09:00 12/03/19 08:56 Ezetimibe 10 Mg Tablet PO 10 mg DAILY DANIEL Administration Ferrous Sulfate 324 mg 12/02/19 09:00 12/03/19 08:57 Ferrous Sulfate 324 Mg Tablet. PO 324 mg DAILY DANIEL Administration Furosemide 40 mg 12/01/19 20:57 Furosemide 40 Mg Tablet PO DAILY PRN SWELLING Protocol Guaifenesin/Dextromethorphan 5 ml 12/01/19 20:57 Guaifenesin Dm 100/10/5 Ml 5 Ml Syrup PO Q4H PRN cough Ceftriaxone Sodium 1 gm/ 50 mls @ 100 mls/hr 12/02/19 15:00 12/02/19 16:36 Sodium Chloride IV Infused Q24H DANIEL Infusion Azithromycin 500 mg/ Sodium 250 mls @ 250 mls/hr 12/02/19 15:00 12/02/19 23:31 Chloride IV Infused Q24H DANIEL Infusion Levothyroxine Sodium 100 mcg 12/02/19 06:30 12/03/19 06:14 Levothyroxine Sodium 100 Mcg Tablet PO 100 mcg DAILY@0630 DANIEL Administration Losartan Potassium 75 mg 12/02/19 09:00 12/03/19 08:57 Losartan Potassium 25 Mg Tablet PO 75 mg DAILY DANIEL Administration Protocol Nitroglycerin 0.4 mg 12/01/19 20:57 Nitroglycerin 0.4 Mg Tab.Subl SUBLINGUAL Q5M PRN chest pain Non-Formulary Medication 30 mg 12/02/19 09:00 Dexlansoprazole PO DAILY [facility] Ondansetron HCl 4 mg 12/01/19 20:57 Ondansetron Hcl 4 Mg/2 Ml Vial IVPUSH Q8H PRN Nausea and Vomiting Pharmacy Consult 1 each 12/01/19 17:36 Consult Rx Perform Med Rec MISCELLANE ONCE PRN Consult order Potassium Chloride 10 meq 12/01/19 21:00 12/03/19 08:57 Potassium Chloride Er 10 Meq Capsule.Er PO 10 meq BID DANIEL Administration Sodium Chloride 3 ml 12/02/19 00:00 12/03/19 08:57 0.9 % Sodium Chloride Flush 3 Ml Syringe IVFLUSH 3 ml QSHIFT DANIEL Administration Sucralfate 1 gm 12/01/19 21:00 12/02/19 21:22 Sucralfate 1 Gm/10 Ml Oral.Susp PO 1 gm BEDTIME DANIEL Administration Vitamin D 25 mcg 12/02/19 09:00 12/03/19 08:57 Cholecalciferol (Vitamin D3) 25 Mcg Tablet PO 25 mcg DAILY DANIEL Administration Labs CBC & Chem 7: 12/02/19 05:56 12/02/19 05:56 Microbiology Microbiology Results: Microbiology 12/01/19 11:59 Blood - Venous Blood Culture - Preliminary No growth after 24 hours. 12/01/19 11:32 Blood - Venous Blood Culture - Preliminary No growth after 24 hours. Assessment and Plan (1) Community acquired pneumonia: Status: Acute (2) Weakness: Status: Acute (3) Hypercholesterolemia: Status: Acute (4) HTN (hypertension): Status: Inactive (5) CAD (coronary artery disease): Status: Acute Assessment and Plan: 79-year-old woman admitted with community-acquired pneumonia and weakness. Community-acquired pneumonia. Clinically stable, still feels fairly weak Rocephin, azithromycin, Robitussin for cough, supplemental oxygen as needed. Change to PO Abx Weakness. Physical therapy is following Hypertension. Home medications (coreg, Lasix) History of atrial fibrillation. Continue Eliquis and carvedilol. History of coronary artery disease. Continue statin and beta-becca. Obesity. BMI 45.7. Likely contributing to worsening medical conditions include hypertension AFIB rate controlled, continue Coreg and Eliquis Vertigo--Benign positional type, will try Meclizine Trnasfer to med surg
[2019-12-03] MEDS: cefTRIAXone sodium 1 GM in 0.9 % Sodium Chloride 50 ML IV (14:20)
[2019-12-03] MEDS: guaiFENesin DM 100/10/5 ML 5 ML SYRUP PO (14:20)
[2019-12-03] MEDS: Azithromycin 500 MG in 0.9 % Sodium Chloride 250 ML 250 MG IV (15:04)
[2019-12-03] MEDS: Atorvastatin Calcium 40 MG TABLET PO (20:18)
[2019-12-03] MEDS: Acetaminophen 325 MG TABLET 650 MG PO (20:18)
[2019-12-04] VITALS (8 sets, daily range): BP systolic 127–149; BP diastolic 63–85; PULSE 72–97; RESP 17–20; TEMP 36.4–36.7; O2SAT 93–95
[2019-12-04] MEDS: ondansetron HCL 4 MG/2 ML VIAL IVPUSH (05:52)
[2019-12-04] MEDS: 0.9 % Sodium Chloride Flush 3 ML SYRINGE IVFLUSH ×3 (09:19→21:53)
[2019-12-04] MEDS: Losartan Potassium 25 MG TABLET 75 MG PO (09:20)
[2019-12-04] MEDS: Aspirin 81 MG TAB.CHEW PO (09:23)
[2019-12-04] MEDS: DULoxetine HCl 30 MG CAPSULE.DR PO (09:23)
[2019-12-04] MEDS: Ezetimibe 10 MG TABLET PO (09:23)
[2019-12-04] MEDS: Cholecalciferol (Vitamin D3) 25 MCG TABLET PO (09:24)
[2019-12-04] MEDS: Ascorbic Acid 500 MG TABLET PO ×2 (09:24→21:52)
[2019-12-04] MEDS: Apixaban 5 MG TABLET PO ×2 (09:24→21:52)
[2019-12-04] MEDS: Ferrous Sulfate 324 MG TABLET.DR PO (09:24)
[2019-12-04] MEDS: carvediloL 12.5 MG TABLET PO ×2 (09:24→21:52)
--- NOTE | 2019-12-04 13:09 | MHC.CM.PN ---
DP Return home with [facility] and [facility] cytogenetic technologist
[2019-12-04] MEDS: cefTRIAXone sodium 1 GM in 0.9 % Sodium Chloride 50 ML IV (16:08)
[2019-12-04] MEDS: Azithromycin 500 MG in 0.9 % Sodium Chloride 250 ML 250 MG IV (16:10)
--- NOTE | 2019-12-04 16:49 | HO.PM.IMPN ---
Subjective Subjective Date of Service: 12/04/19 Interval History: Seen in follow up for CAP. She feels a little better but c/o vertigo this morning. She is overall feeling better, minimal SOB and weakness is better Review of Systems Feel dizzy--vertigo type No SOB weakness if better Physical Exam Vital Signs: Vital Signs: Vital Signs Temp Pulse Resp BP Pulse Ox 12/04/19 15:14 97.6 F 85 18 127/77 93 12/04/19 12:29 97.9 F 72 20 137/63 95 12/04/19 11:17 97 129/68 12/04/19 09:24 97 129/68 12/04/19 09:20 97 129/68 12/04/19 08:00 97.5 F 92 20 149/85 H 95 12/04/19 04:57 97.7 F 79 18 138/78 95 12/03/19 23:42 97.8 F 73 18 136/63 98 12/03/19 20:19 77 134/84 12/03/19 20:05 98.0 F 91 16 134/84 95 Body Mass Index 45.7 Appearing in no acute distress head is normocephalic atraumatic eyes pupils are PERRLA sclera is anicteric mouth throat mucous membranes are intact and moist neck is supple no lymphadenopathy, no JVD noted lung sounds diminished throughout heart regular rate rhythm, clear S1, S2 positive bowel sounds, abdomen is soft, nontender, obese neuro patient is alert x3, no focal deficits Objective Data Current Medications Generic Name Dose Route Start Last Admin Trade Name Freq PRN Reason Stop Dose Admin Acetaminophen 650 mg 12/01/19 20:57 12/03/19 20:18 Acetaminophen 325 Mg Tablet PO 650 mg Q6H PRN Administration Pain, Mild (Pain Scale 1-3) Apixaban 5 mg 12/01/19 21:00 12/04/19 09:24 Apixaban 5 Mg Tablet PO 5 mg BID DANIEL Administration Ascorbic Acid 500 mg 12/01/19 21:00 12/04/19 09:24 Ascorbic Acid 500 Mg Tablet PO 500 mg BID DANIEL Administration Aspirin 81 mg 12/02/19 09:00 12/04/19 09:23 Aspirin 81 Mg Tab.Chew PO 81 mg DAILY DANIEL Administration Atorvastatin Calcium 40 mg 12/01/19 21:00 12/03/19 20:18 Atorvastatin Calcium 40 Mg Tablet PO 40 mg BEDTIME DANIEL Administration Carvedilol 12.5 mg 12/01/19 21:00 12/04/19 09:24 Carvedilol 12.5 Mg Tablet PO 12.5 mg BID DANIEL Administration Protocol Cyanocobalamin 1,000 mcg 12/16/19 10:00 Cyanocobalamin (Vitamin B-12) 1,000 Mcg/Ml Vial IM Q30D DANIEL Dicyclomine HCl 10 mg 12/01/19 20:57 Dicyclomine Hcl 10 Mg Capsule PO QID PRN Abdominal Pain Duloxetine HCl 30 mg 12/02/19 09:00 12/04/19 09:23 Duloxetine Hcl 30 Mg Capsule. PO 30 mg DAILY DANIEL Administration Ezetimibe 10 mg 12/02/19 09:00 12/04/19 09:23 Ezetimibe 10 Mg Tablet PO 10 mg DAILY DANIEL Administration Ferrous Sulfate 324 mg 12/02/19 09:00 12/04/19 09:24 Ferrous Sulfate 324 Mg Tablet. PO 324 mg DAILY DANIEL Administration Furosemide 40 mg 12/01/19 20:57 Furosemide 40 Mg Tablet PO DAILY PRN SWELLING Protocol Guaifenesin/Dextromethorphan 5 ml 12/01/19 20:57 12/03/19 14:20 Guaifenesin Dm 100/10/5 Ml 5 Ml Syrup PO 5 ml Q4H PRN Administration cough Ceftriaxone Sodium 1 gm/ 50 mls @ 100 mls/hr 12/02/19 15:00 12/04/19 16:08 Sodium Chloride IV 100 mls/hr Q24H DANIEL Administration Azithromycin 500 mg/ Sodium 250 mls @ 250 mls/hr 12/02/19 15:00 12/04/19 16:10 Chloride IV 250 mls/hr Q24H DANIEL Administration Levothyroxine Sodium 100 mcg 12/02/19 06:30 12/04/19 05:54 Levothyroxine Sodium 100 Mcg Tablet PO Not Given DAILY@0630 PENDING SALE TO [facility] Losartan Potassium 75 mg 12/02/19 09:00 12/04/19 09:20 Losartan Potassium 25 Mg Tablet PO 75 mg DAILY DANIEL Administration Protocol Nitroglycerin 0.4 mg 12/01/19 20:57 Nitroglycerin 0.4 Mg Tab.Subl SUBLINGUAL Q5M PRN chest pain Omeprazole 40 mg 12/04/19 06:30 12/04/19 06:35 Omeprazole 40 Mg Capsule. PO Not Given DAILY@0630 PENDING [facility] TO [facility] Ondansetron HCl 4 mg 12/01/19 20:57 12/04/19 05:52 Ondansetron Hcl 4 Mg/2 Ml Vial IVPUSH 4 mg Q8H PRN Administration Nausea and Vomiting Pharmacy Consult 1 each 12/01/19 17:36 Consult Rx Perform Med Rec MISCELLANE ONCE PRN Consult order Potassium Chloride 10 meq 12/01/19 21:00 12/04/19 09:23 Potassium Chloride Er 10 Meq Capsule.Er PO 10 meq BID DANIEL Administration Sodium Chloride 3 ml 12/02/19 00:00 12/04/19 16:08 0.9 % Sodium Chloride Flush 3 Ml Syringe IVFLUSH 3 ml QSHIFT DANIEL Administration Sucralfate 1 gm 12/01/19 21:00 12/03/19 20:19 Sucralfate 1 Gm/10 Ml Oral.Susp PO 1 gm BEDTIME DANIEL Administration Vitamin D 25 mcg 12/02/19 09:00 12/04/19 09:24 Cholecalciferol (Vitamin D3) 25 Mcg Tablet PO 25 mcg DAILY DANIEL Administration Labs CBC & Chem 7: 12/02/19 05:56 12/02/19 05:56 Microbiology Microbiology Results: Microbiology 12/01/19 11:59 Blood - Venous Blood Culture - Preliminary No growth after 48 hours. 12/01/19 11:32 Blood - Venous Blood Culture - Preliminary No growth after 48 hours. Assessment and Plan (1) Community acquired pneumonia: Status: Acute (2) Weakness: Status: Acute (3) Hypercholesterolemia: Status: Acute (4) HTN (hypertension): Status: Inactive (5) CAD (coronary artery disease): Status: Acute Assessment and Plan: 79-year-old woman admitted with community-acquired pneumonia and weakness. Community-acquired pneumonia. Clinically stable, still feels fairly weak Rocephin, azithromycin, Robitussin for cough, supplemental oxygen as needed. Change to PO Abx in the morning for d/c Weakness. Home with home PT Hypertension. Home medications (coreg, Lasix) History of atrial fibrillation. Continue Eliquis and carvedilol. History of coronary artery disease. Continue statin and beta-becca. Obesity. BMI 45.7. Likely contributing to worsening medical conditions include hypertension , weight loss advised AFIB rate controlled, continue Coreg and Eliquis Vertigo--Benign positional type, will try Meclizine Trnasfer to med surg if bed needed
[2019-12-04] MEDS: Atorvastatin Calcium 40 MG TABLET PO (21:52)
[2019-12-05] MEDS: Omeprazole 40 MG CAPSULE.DR PO (06:25)
[2019-12-05] MEDS: Levothyroxine Sodium 100 MCG TABLET PO (06:25)
[2019-12-05 07:38] VITALS: PULSE 83; RESP 18; TEMP 36.9; O2SAT 95
[2019-12-05 07:50] VITALS: BP 179/81
[2019-12-05] MEDS: ondansetron HCL 4 MG/2 ML VIAL IVPUSH (08:01)
[2019-12-05] MEDS: 0.9 % Sodium Chloride Flush 3 ML SYRINGE IVFLUSH ×2 (08:02→14:42)
[2019-12-05] MEDS: Furosemide 40 MG TABLET PO (08:03)
[2019-12-05] MEDS: Ascorbic Acid 500 MG TABLET PO ×2 (08:03→21:44)
[2019-12-05] MEDS: Ezetimibe 10 MG TABLET PO (08:03)
[2019-12-05] MEDS: Aspirin 81 MG TAB.CHEW PO (08:03)
[2019-12-05] MEDS: Acetaminophen 325 MG TABLET 650 MG PO (08:03)
[2019-12-05] MEDS: Ferrous Sulfate 324 MG TABLET.DR PO (08:03)
[2019-12-05] MEDS: Apixaban 5 MG TABLET PO ×2 (08:03→21:44)
[2019-12-05] MEDS: DULoxetine HCl 30 MG CAPSULE.DR PO (08:04)
[2019-12-05] MEDS: Cholecalciferol (Vitamin D3) 25 MCG TABLET PO (08:04)
[2019-12-05] MEDS: carvediloL 12.5 MG TABLET PO ×2 (08:04→21:44)
[2019-12-05] MEDS: Losartan Potassium 25 MG TABLET 75 MG PO (08:04)
--- NOTE | 2019-12-05 12:41 | PM.DS ---
DS: Providers Provider Date of admission: 12/01/19 17:36 Date of discharge: 12/01/19 Date of Service: 12/01/19 Primary care physician: Unknown Physician DS: Diagnosis Discharge Diagnosis (1) Community acquired pneumonia: Status: Acute (2) Weakness: Status: Acute (3) Hypercholesterolemia: Status: Acute (4) HTN (hypertension): Status: Inactive (5) CAD (coronary artery disease): Status: Acute DS: Summary Hospital Course Hospital Course: See H and P for detail. 79 year female with AFIB, CAD, DVT, HTN, HLD, CODP who presented with shortness of breath and generalized weakness and found to have Community-acquired pneumonia. COVID test was negative. She was initiated on IV ceftriaxone and azithromycin admitted for further management. During hospitalization patient was continued on azithromycin and ceftriaxone and over the course of hospitalization has significantly improved she is feeling much better she is not hypoxic. She does use oxygen at 2 L by nasal cannula at all time at home. Are she has been evaluated by Physical therapy and overall is feeling better and would like to go home. She will be discharged with Ceftin to complete a 7 day course of antibiotics. Presently has no fever and WBC is normal. Time Spent with Patient Time attestation: Total time spent providing and/or coordinating discharge services: Physical Exam Vital Signs: Vital Signs: Selected Entries 12/07/19 08:00 Temperature 96.9 F Pulse Rate 80 Respiratory Rate 20 Blood Pressure 129/62 Pulse Oximetry 94 Oxygen Delivery Me thod Nasal Cannula Oxygen Flow Rate 2 Appearing in no acute distress head is normocephalic atraumatic eyes pupils are PERRLA sclera is anicteric mouth throat mucous membranes are intact and moist neck is supple no lymphadenopathy, no JVD noted lung sounds diminished throughout heart regular rate rhythm, clear S1, S2 positive bowel sounds, abdomen is soft, nontender, obese neuro patient is alert x3, no focal deficits DS: Data Data Completed and Pending Labs on day of discharge: Preliminary micro results at discharge 12/01/19 11:59 Blood Culture - Preliminary Blood - Venous No growth after 48 hours. 12/01/19 11:32 Blood Culture - Preliminary Blood - Venous No growth after 48 hours. Discharge Plan Discharge Anticipated Discharge Date/Time: 12/07/19 09:48 Patient Disposition: Home Health Service Referrals: [facility] [Other] [facility] [Outside] Physician,Unknown [Primary Care Provider] - Discharge Medications: New cefuroxime axetil 500 mg tablet 500 mg PO BID 3 Days Qty: 6 RF: 0 Continued levothyroxine 100 mcg tablet 100 mcg PO QAM Qty: 90 RF: 1 nitroglycerin 0.4 mg tablet, sublingual 0.4 mg sublingual Q5M PRN (Reason: chest pain) Qty: 25 RF: 0 Spiriva with HandiHaler 18 mcg Capsule, W/Inhalation Device 1 cap INHALATION DAILY RF: 0 ferrous sulfate 325 mg (65 mg iron) Tablet 325 mg PO DAILY RF: 0 aspirin 81 mg Tablet 81 mg PO DAILY RF: 0 cholecalciferol (vitamin D3) [Vitamin D3] 25 mcg (1,000 unit) Capsule 25 mcg PO DAILY RF: 0 albuterol sulfate 2.5 mg /3 mL (0.083 %) Solution For Nebulization 2.5 mg INHALATION Q6H PRN (Reason: Respiratory Distress) RF: 0 dicyclomine 10 mg Capsule 10 mg PO QID PRN (Reason: Abdominal Pain) RF: 0 albuterol sulfate [ProAir HFA] 90 mcg/actuation Hfa Aerosol Inhaler 2 puff INHALATION Q4H PRN (Reason: Respiratory Distress) RF: 0 ezetimibe [Zetia] 10 mg Tablet 10 mg PO DAILY RF: 0 ascorbic acid (vitamin C) 500 mg tablet 500 mg PO BID RF: 0 fluticasone propion-salmeterol 500-50 mcg/dose blister with device 1 inh inhalation BID RF: 0 sucralfate 100 mg/mL suspension 1 g PO BEDTIME RF: 0 Eliquis 5 mg tablet 5 mg PO BID RF: 0 losartan 50 mg tablet 75 mg PO DAILY RF: 0 carvedilol 12.5 mg tablet 12.5 mg PO BID RF: 0 furosemide 40 mg tablet 40 mg PO DAILY RF: 0 Dexilant 30 mg capsule,biphase delayed releas 30 mg PO DAILY RF: 0 duloxetine 30 mg capsule,delayed release(DR/EC) 30 mg PO DAILY RF: 0 cyanocobalamin (vitamin B-12) 1,000 mcg/mL solution 1,000 mcg IM Q30D RF: 0 atorvastatin 40 mg tablet 40 mg PO BEDTIME RF: 0 potassium chloride 10 mEq tablet extended release 10 meq PO BID RF: 0 (DME) BD Integra Syringe 3 mL 25 gauge x 5/8 syringe See Rx Instructions ml .ROUTE .MEDSUPPLY Qty: 100 RF: 0 Discharge Orders: Discharge Order (Routine); Ordered 12/07/19 Ordered By: Jac Christy Diet: advance to your usual diet Activity on Discharge: As tolerated Visit Report Forms: Patient Portal Discharge page Care Plan Goals: To fully recover from pneumonia Health Concerns: pneumonia, you don't have Kaufman virus Plan of Treatment: Use your inhalers as usual, take antibiotics (Ceftin ) as recommended, and follow up with your doctor savannah week. Call for appointment
--- NOTE | 2019-12-05 12:47 | P.PNIM_ITS ---
Subjective Subjective Date of Service: 12/05/19 Interval History: Seen in follow up for CAP. No shortness of breath, but has nausea Review of Systems Gen no fever Resp no sob GI: nausea Physical Exam Vital Signs: Vital Signs: Vital Signs Temp Pulse Resp BP Pulse Ox 12/05/19 07:50 179/81 H 12/05/19 07:38 98.4 F 83 18 95 12/04/19 23:53 98.0 F 83 17 139/65 93 12/04/19 15:14 97.6 F 85 18 127/77 93 Body Mass Index 45.7 Appearing in no acute distress head is normocephalic atraumatic eyes pupils are PERRLA sclera is anicteric mouth throat mucous membranes are intact and moist neck is supple no lymphadenopathy, no JVD noted lung sounds diminished throughout heart regular rate rhythm, clear S1, S2 positive bowel sounds, abdomen is soft, nontender, obese neuro patient is alert x3, no focal deficits Objective Data Current Medications Generic Name Dose Route Start Last Admin Trade Name Freq PRN Reason Stop Dose Admin Acetaminophen 650 mg 12/01/19 20:57 12/05/19 08:03 Acetaminophen 325 Mg Tablet PO 650 mg Q6H PRN Administration Pain, Mild (Pain Scale 1-3) Apixaban 5 mg 12/01/19 21:00 12/05/19 08:03 Apixaban 5 Mg Tablet PO 5 mg BID DANIEL Administration Ascorbic Acid 500 mg 12/01/19 21:00 12/05/19 08:03 Ascorbic Acid 500 Mg Tablet PO 500 mg BID DANIEL Administration Aspirin 81 mg 12/02/19 09:00 12/05/19 08:03 Aspirin 81 Mg Tab.Chew PO 81 mg DAILY DANIEL Administration Atorvastatin Calcium 40 mg 12/01/19 21:00 12/04/19 21:52 Atorvastatin Calcium 40 Mg Tablet PO 40 mg BEDTIME DANIEL Administration Carvedilol 12.5 mg 12/01/19 21:00 12/05/19 08:04 Carvedilol 12.5 Mg Tablet PO 12.5 mg BID DANIEL Administration Protocol Cyanocobalamin 1,000 mcg 12/16/19 10:00 Cyanocobalamin (Vitamin B-12) 1,000 Mcg/Ml Vial IM Q30D DANIEL Dicyclomine HCl 10 mg 12/01/19 20:57 Dicyclomine Hcl 10 Mg Capsule PO QID PRN Abdominal Pain Duloxetine HCl 30 mg 12/02/19 09:00 12/05/19 08:04 Duloxetine Hcl 30 Mg Capsule. PO 30 mg DAILY DANIEL Administration Ezetimibe 10 mg 12/02/19 09:00 12/05/19 08:03 Ezetimibe 10 Mg Tablet PO 10 mg DAILY DANIEL Administration Ferrous Sulfate 324 mg 12/02/19 09:00 12/05/19 08:03 Ferrous Sulfate 324 Mg Tablet. PO 324 mg DAILY DANIEL Administration Furosemide 40 mg 12/01/19 20:57 12/05/19 08:03 Furosemide 40 Mg Tablet PO 40 mg DAILY PRN Administration SWELLING Protocol Guaifenesin/Dextromethorphan 5 ml 12/01/19 20:57 12/03/19 14:20 Guaifenesin Dm 100/10/5 Ml 5 Ml Syrup PO 5 ml Q4H PRN Administration cough Ceftriaxone Sodium 1 gm/ 50 mls @ 100 mls/hr 12/02/19 15:00 12/04/19 17:08 Sodium Chloride IV Infused Q24H DANIEL Infusion Azithromycin 500 mg/ Sodium 250 mls @ 250 mls/hr 12/02/19 15:00 12/04/19 17: 11 Chloride IV Infused Q24H DANIEL Infusion Levothyroxine Sodium 100 mcg 12/02/19 06:30 12/05/19 06:25 Levothyroxine Sodium 100 Mcg Tablet PO 100 mcg DAILY@0630 DANIEL Administration Losartan Potassium 75 mg 12/02/19 09:00 12/05/19 08:04 Losartan Potassium 25 Mg Tablet PO 75 mg DAILY DANIEL Administration Protocol Nitroglycerin 0.4 mg 12/01/19 20:57 Nitroglycerin 0.4 Mg Tab.Subl SUBLINGUAL Q5M PRN chest pain Omeprazole 40 mg 12/04/19 06:30 12/05/19 06:25 Omeprazole 40 Mg Capsule. PO 40 mg DAILY@0630 DANIEL Administration Ondansetron HCl 4 mg 12/01/19 20:57 12/05/19 08:01 Ondansetron Hcl 4 Mg/2 Ml Vial IVPUSH 4 mg Q8H PRN Administration Nausea and Vomiting Ondansetron HCl 4 mg 12/05/19 12:46 Ondansetron Hcl 4 Mg/2 Ml Vial IVPUSH Q8H PRN Nausea and Vomiting Pharmacy Consult 1 each 10/13/20 17:36 Consult Rx Perform Med Rec MISCELLANE ONCE PRN Consult order Potassium Chloride 10 meq 12/01/19 21:00 12/05/19 08:04 Potassium Chloride Er 10 Meq Capsule.Er PO 10 meq BID DANIEL Administration Sodium Chloride 3 ml 12/02/19 00:00 12/05/19 08:02 0.9 % Sodium Chloride Flush 3 Ml Syringe IVFLUSH 3 ml QSHIFT DANIEL Administration Sucralfate 1 gm 12/01/19 21:00 12/04/19 21:52 Sucralfate 1 Gm/10 Ml Oral.Susp PO 1 gm BEDTIME DANIEL Administration Vitamin D 25 mcg 12/02/19 09:00 12/05/19 08:04 Cholecalciferol (Vitamin D3) 25 Mcg Tablet PO 25 mcg DAILY DANIEL Administration Labs CBC & Chem 7: 12/02/19 05:56 12/02/19 05:56 Microbiology Microbiology Results: Microbiology 12/01/19 11:59 Blood - Venous Blood Culture - Preliminary No growth after 48 hours. 12/01/19 11:32 Blood - Venous Blood Culture - Preliminary No growth after 48 hours. Assessment and Plan (1) Community acquired pneumonia: Status: Acute (2) Weakness: Status: Acute (3) Hypercholesterolemia: Status: Acute (4) HTN (hypertension): Status: Inactive (5) CAD (coronary artery disease): Status: Acute Assessment and Plan: 79-year-old woman admitted with community-acquired pneumonia and weakness. Community-acquired pneumonia. Clinically improve. change Ceftriaxone to PO Ceftin Weakness. Home with home PT Hypertension. Home medications (coreg, Lasix) History of atrial fibrillation. Continue Eliquis and carvedilol. History of coronary artery disease. Continue statin and beta-becca. Obesity. BMI 45.7. Likely contributing to worsening medical conditions include hypertension , weight loss advised AFIB rate controlled, continue Coreg and Eliquis Vertigo--Benign positional type, will try Meclizine GI: nause. Matthew Trnasfer to med surg if bed needed
[2019-12-05] MEDS: cefTRIAXone sodium 1 GM in 0.9 % Sodium Chloride 50 ML IV (14:42)
[2019-12-05 15:41] VITALS: BP 145/66; PULSE 75; RESP 16; TEMP 36.5; O2SAT 93
[2019-12-05] MEDS: Azithromycin 500 MG in 0.9 % Sodium Chloride 250 ML 250 MG IV (15:57)
[2019-12-05 21:44] VITALS: BP 133/60; PULSE 77
[2019-12-05] MEDS: Atorvastatin Calcium 40 MG TABLET PO (21:44)
[2019-12-05 23:46] VITALS: BP 106/52; PULSE 73; RESP 20; TEMP 36.7; O2SAT 94
[2019-12-06] VITALS (7 sets, daily range): BP systolic 139–175; BP diastolic 56–82; PULSE 77–86; RESP 18–20; TEMP 36.3–36.4; O2SAT 95–97
[2019-12-06] MEDS: 0.9 % Sodium Chloride Flush 3 ML SYRINGE IVFLUSH ×3 (00:07→15:22)
[2019-12-06] MEDS: Levothyroxine Sodium 100 MCG TABLET PO (05:47)
[2019-12-06] MEDS: Omeprazole 40 MG CAPSULE.DR PO (05:47)
[2019-12-06] MEDS: Ezetimibe 10 MG TABLET PO (08:21)
[2019-12-06] MEDS: Aspirin 81 MG TAB.CHEW PO (08:21)
[2019-12-06] MEDS: Apixaban 5 MG TABLET PO ×2 (08:21→21:35)
[2019-12-06] MEDS: Cholecalciferol (Vitamin D3) 25 MCG TABLET PO (08:22)
[2019-12-06] MEDS: carvediloL 12.5 MG TABLET PO ×2 (08:22→21:35)
[2019-12-06] MEDS: Ferrous Sulfate 324 MG TABLET.DR PO (08:22)
[2019-12-06] MEDS: Ascorbic Acid 500 MG TABLET PO ×2 (08:22→21:36)
[2019-12-06] MEDS: DULoxetine HCl 30 MG CAPSULE.DR PO (08:22)
[2019-12-06] MEDS: Losartan Potassium 25 MG TABLET 75 MG PO (08:25)
[2019-12-06] MEDS: ondansetron HCL 4 MG/2 ML VIAL IVPUSH (08:36)
[2019-12-06] MEDS: Furosemide 40 MG TABLET PO (10:30)
--- NOTE | 2019-12-06 10:36 | HO.PM.IMPN ---
Subjective Subjective Date of Service: 12/06/19 Interval History: Seen in follow up for CAP. vertigo and dizzy Review of Systems Gen: no fever GI: Nausea Neuro: vertigo Resp: no sob Physical Exam Vital Signs: Vital Signs: Vital Signs Temp Pulse Resp BP Pulse Ox 12/06/19 08:25 80 174/81 H 12/06/19 08:22 80 174/81 H 12/06/19 08:00 97.3 F 86 18 97 12/05/19 23:46 98.1 F 73 20 106/52 L 94 12/05/19 21:44 77 133/60 12/05/19 15:41 97.7 F 75 16 145/66 H 93 Body Mass Index 45.7 Appearing in no acute distress head is normocephalic atraumatic eyes pupils are PERRLA sclera is anicteric mouth throat mucous membranes are intact and moist neck is supple no lymphadenopathy, no JVD noted lung sounds diminished throughout heart regular rate rhythm, clear S1, S2 positive bowel sounds, abdomen is soft, nontender, obese neuro patient is alert x3, no focal deficits Objective Data Current Medications Generic Name Dose Route Start Last Admin Trade Name Freq PRN Reason Stop Dose Admin Acetaminophen 650 mg 12/01/19 20:57 12/05/19 08:03 Acetaminophen 325 Mg Tablet PO 650 mg Q6H PRN Administration Pain, Mild (Pain Scale 1-3) Apixaban 5 mg 12/01/19 21:00 12/06/19 08:21 Apixaban 5 Mg Tablet PO 5 mg BID DANIEL Administration Ascorbic Acid 500 mg 12/01/19 21:00 12/06/19 08:22 Ascorbic Acid 500 Mg Tablet PO 500 mg BID DANIEL Administration Aspirin 81 mg 12/02/19 09:00 12/06/19 08:21 Aspirin 81 Mg Tab.Chew PO 81 mg DAILY DANIEL Administration Atorvastatin Calcium 40 mg 12/01/19 21:00 12/05/19 21:44 Atorvastatin Calcium 40 Mg Tablet PO 40 mg BEDTIME DANIEL Administration Carvedilol 12.5 mg 12/01/19 21:00 12/06/19 08:22 Carvedilol 12.5 Mg Tablet PO 12.5 mg BID DANIEL Administration Protocol Cyanocobalamin 1,000 mcg 12/16/19 10:00 Cyanocobalamin (Vitamin B-12) 1,000 Mcg/Ml Vial IM Q30D [facility] Dicyclomine HCl 10 mg 12/01/19 20:57 Dicyclomine Hcl 10 Mg Capsule PO QID PRN Abdominal Pain Duloxetine HCl 30 mg 12/02/19 09:00 12/06/19 08:22 Duloxetine Hcl 30 Mg Capsule. PO 30 mg DAILY DANIEL Administration Ezetimibe 10 mg 12/02/19 09:00 12/06/19 08:21 Ezetimibe 10 Mg Tablet PO 10 mg DAILY DANIEL Administration Ferrous Sulfate 324 mg 12/02/19 09:00 12/06/19 08:22 Ferrous Sulfate 324 Mg Tablet. PO 324 mg DAILY DANIEL Administration Furosemide 40 mg 12/01/19 20:57 12/06/19 10:30 Furosemide 40 Mg Tablet PO 40 mg DAILY PRN Administration SWELLING Protocol Guaifenesin/Dextromethorphan 5 ml 12/01/19 20:57 12/03/19 14:20 Guaifenesin Dm 100/10/5 Ml 5 Ml Syrup PO 5 ml Q4H PRN Administration cough Ceftriaxone Sodium 1 gm/ 50 mls @ 100 mls/hr 12/02/19 15:00 12/05/19 15:55 Sodium Chloride IV Infused Q24H ADNIEL Infusion Azithromycin 500 mg/ Sodium 250 mls @ 250 mls/hr 12/02/19 15:00 12/05/19 18:06 Chloride IV Infused Q24H DANIEL Infusion Promethazine HCl 12.5 mg/ 50.5 mls @ 202 mls/hr 12/05/19 12:51 12/05/19 14:00 Sodium Chloride IV Infused Q4H PRN Infusion Nausea and Vomiting Levothyroxine Sodium 100 mcg 12/02/19 06:30 12/06/19 05:47 Levothyroxine Sodium 100 Mcg Tablet PO 100 mcg DAILY@0630 DANILE Administration Losartan Potassium 75 mg 12/02/19 09:00 12/06/19 08:25 Losartan Potassium 25 Mg Tablet PO 75 mg DAILY DANIEL Administration Protocol Meclizine HCl 12.5 mg 12/06/19 10:33 Meclizine Hcl 12.5 Mg Tablet PO 12/06/19 10:34 ONCE ONE Nitroglycerin 0.4 mg 12/01/19 20:57 Nitroglycerin 0.4 Mg Tab.Subl SUBLINGUAL Q5M PRN chest pain Omeprazole 40 mg 12/04/19 06:30 12/06/19 05:47 Omeprazole 40 Mg Capsule. PO 40 mg DAILY@0630 DANIEL Administration Ondansetron HCl 4 mg 12/01/19 20:57 12/06/19 08:36 Ondansetron Hcl 4 Mg/2 Ml Vial IVPUSH 4 mg Q8H PRN Administration Nausea and Vomiting Pharmacy Consult 1 each 12/01/19 17:36 Consult Rx Perform Med Rec MISCELLANE ONCE PRN Consult order Potassium Chloride 10 meq 12/01/19 21:00 12/06/19 08:22 Potassium Chloride Er 10 Meq Capsule.Er PO 10 meq BID DANIEL Administration Sodium Chloride 3 ml 12/02/19 00:00 12/06/19 08:25 0.9 % Sodium Chloride Flush 3 Ml Syringe IVFLUSH 3 ml QSHIFT DANIEL Administration Sucralfate 1 gm 12/01/19 21:00 12/05/19 21:59 Sucralfate 1 Gm/10 Ml Oral.Susp PO 1 gm BEDTIME DANIEL Administration Vitamin D 25 mcg 12/02/19 09:00 12/06/19 08:22 Cholecalciferol (Vitamin D3) 25 Mcg Tablet PO 25 mcg DAILY DANIEL Administration Labs CBC & Chem 7: 12/02/19 05:56 12/02/19 05:56 Microbiology Microbiology Results: Microbiology 12/01/19 11:59 Blood - Venous Blood Culture - Preliminary No growth after 48 hours. 12/01/19 11:32 Blood - Venous Blood Culture - Preliminary No growth after 48 hours. Assessment and Plan (1) Community acquired pneumonia: Status: Acute (2) Weakness: Status: Acute (3) Hypercholesterolemia: Status: Acute (4) HTN (hypertension): Status: Inactive (5) CAD (coronary artery disease): Status: Acute Assessment and Plan: 79-year-old woman admitted with community-acquired pneumonia and weakness. Community-acquired pneumonia. Clinically improve. change Ceftriaxone to PO Ceftin once nausea improves Weakness. Home with home PT Hypertension. Home medications (coreg, Lasix) History of atrial fibrillation. Continue Eliquis and carvedilol. History of coronary artery disease. Continue statin and beta-becca. Obesity. BMI 45.7. Likely contributing to worsening medical conditions include hypertension , weight loss advised AFIB rate controlled, continue Coreg and Eliquis Vertigo--Benign positional type, will try Meclizine GI: nause. Zofran, Phenergan Trnasfer to med surg if bed needed Discharge tomorrow
[2019-12-06] MEDS: Meclizine HCl 12.5 MG TABLET PO (11:51)
[2019-12-06] MEDS: cefTRIAXone sodium 1 GM in 0.9 % Sodium Chloride 50 ML IV (14:19)
[2019-12-06] MEDS: Azithromycin 500 MG in 0.9 % Sodium Chloride 250 ML 250 MG IV (15:10)
[2019-12-06] MEDS: Atorvastatin Calcium 40 MG TABLET PO (21:35)
[2019-12-07 00:04] VITALS: BP 138/58; PULSE 76; RESP 18; TEMP 36.9; O2SAT 93
[2019-12-07] MEDS: 0.9 % Sodium Chloride Flush 3 ML SYRINGE IVFLUSH ×2 (01:21→08:54)
[2019-12-07 03:48] VITALS: PULSE 75; RESP 18; TEMP 36.5; O2SAT 91
[2019-12-07 04:21] VITALS: BP 109/52
[2019-12-07] MEDS: Levothyroxine Sodium 100 MCG TABLET PO (05:47)
[2019-12-07] MEDS: Omeprazole 40 MG CAPSULE.DR PO (05:47)
[2019-12-07 08:00] VITALS: BP 129/62; PULSE 80; RESP 20; TEMP 36.1; O2SAT 94
--- NOTE | 2019-12-07 08:44 | MHC.CM.PN ---
IMM 12/07/19 DC today with resumption of [facility] and [facility] [facility] services. [facility].
[2019-12-07] MEDS: Apixaban 5 MG TABLET PO (08:53)
[2019-12-07] MEDS: Cholecalciferol (Vitamin D3) 25 MCG TABLET PO (08:54)
[2019-12-07] MEDS: Ascorbic Acid 500 MG TABLET PO (08:54)
[2019-12-07] MEDS: Furosemide 40 MG TABLET PO (08:54)
[2019-12-07] MEDS: Ferrous Sulfate 324 MG TABLET.DR PO (08:54)
[2019-12-07] MEDS: DULoxetine HCl 30 MG CAPSULE.DR PO (08:54)
[2019-12-07] MEDS: Ezetimibe 10 MG TABLET PO (08:54)
[2019-12-07] MEDS: Aspirin 81 MG TAB.CHEW PO (08:54)
[2019-12-07] MEDS: ondansetron HCL 4 MG/2 ML VIAL IVPUSH (08:58)
[2019-12-07] MEDS: Losartan Potassium 25 MG TABLET 75 MG PO (08:58)
[2019-12-07] MEDS: carvediloL 12.5 MG TABLET PO (08:59)
--- NOTE | 2019-12-07 10:00 | HO.PM.IMPN ---
Subjective Subjective Interval History: Seen in follow up for CAP. Still has some vertigo, better with Meclizine Review of Systems Neuro: dizzimes Resp: no sob GI..Nausea Physical Exam Vital Signs: Vital Signs: Vital Signs Temp Pulse Resp BP Pulse Ox 12/07/19 08:00 96.9 F 80 20 129/62 94 12/07/19 04:21 109/52 L 12/07/19 03:48 97.7 F 75 18 91 L 12/07/19 00:04 98.5 F 76 18 138/58 L 93 12/06/19 19:48 97.3 F 79 18 155/64 H 95 12/06/19 15:46 97.3 F 84 18 150/56 H 95 12/06/19 13:37 77 139/62 12/06/19 11:40 97.5 F 78 20 175/82 H 95 Body Mass Index 45.7 Appearing in no acute distress head is normocephalic atraumatic eyes pupils are PERRLA sclera is anicteric mouth throat mucous membranes are intact and moist neck is supple no lymphadenopathy, no JVD noted lung sounds diminished throughout heart regular rate rhythm, clear S1, S2 positive bowel sounds, abdomen is soft, nontender, obese neuro patient is alert x3, no focal deficits Objective Data Current Medications Generic Name Dose Route Start Last Admin Trade Name Francescoq PRN Reason Stop Dose Admin Acetaminophen 650 mg 12/01/19 20:57 12/05/19 08:03 Acetaminophen 325 Mg Tablet PO 650 mg Q6H PRN Administration Pain, Mild (Pain Scale 1-3) Apixaban 5 mg 12/01/19 21:00 12/07/19 08:53 Apixaban 5 Mg Tablet PO 5 mg BID DANIEL Administration Ascorbic Acid 500 mg 12/01/19 21:00 12/07/19 08:54 Ascorbic Acid 500 Mg Tablet PO 500 mg BID DANIEL Administration Aspirin 81 mg 12/02/19 09:00 12/07/19 08:54 Aspirin 81 Mg Tab.Chew PO 81 mg DAILY DANIEL Administration Atorvastatin Calcium 40 mg 12/01/19 21:00 12/06/19 21:35 Atorvastatin Calcium 40 Mg Tablet PO 40 mg BEDTIME DANIEL Administration Carvedilol 12.5 mg 12/01/19 21:00 12/07/19 08:59 Carvedilol 12.5 Mg Tablet PO 12.5 mg BID DANIEL Administration Protocol Cyanocobalamin 1,000 mcg 12/16/19 10:00 Cyanocobalamin (Vitamin B-12) 1,000 Mcg/Ml Vial IM Q30D DANIEL Dicyclomine HCl 10 mg 12/01/19 20:57 Dicyclomine Hcl 10 Mg Capsule PO QID PRN Abdominal Pain Duloxetine HCl 30 mg 12/02/19 09:00 12/07/19 08:54 Duloxetine Hcl 30 Mg Capsule. PO 30 mg DAILY DANIEL Administration Ezetimibe 10 mg 12/02/19 09:00 12/07/19 08:54 Ezetimibe 10 Mg Tablet PO 10 mg DAILY DANIEL Administration Ferrous Sulfate 324 mg 12/02/19 09:00 12/07/19 08:54 Ferrous Sulfate 324 Mg Tablet. PO 324 mg DAILY DANIEL Administration Furosemide 40 mg 12/01/19 20:57 12/07/19 08:54 Furosemide 40 Mg Tablet PO 40 mg DAILY PRN Administration SWELLING Protocol Guaifenesin/Dextromethorphan 5 ml 12/01/19 20:57 12/03/19 14:20 Guaifenesin Dm 100/10/5 Ml 5 Ml Syrup PO 5 ml Q4H PRN Administration cough Ceftriaxone Sodium 1 gm/ 50 mls @ 100 mls/hr 12/02/19 15:00 12/06/19 15:00 Sodium Chloride IV Infused Q24H DANIEL Infusion Azithromycin 500 mg/ Sodium 250 mls @ 250 mls/hr 12/02/19 15:00 12/06/19 17:23 Chloride IV Infused Q24H DANIEL Infusion Promethazine HCl 12.5 mg/ 50.5 mls @ 202 mls/hr 12/05/19 12:51 12/05/19 14:00 Sodium Chloride IV Infused Q4H PRN Infusion Nausea and Vomiting Levothyroxine Sodium 100 mcg 12/02/19 06:30 12/07/19 05:47 Levothyroxine Sodium 100 Mcg Tablet PO 100 mcg DAILY@0630 DANIEL Administration Losartan Potassium 75 mg 12/02/19 09:00 12/07/19 08:58 Losartan Potassium 25 Mg Tablet PO 75 mg DAILY DANIEL Administration Protocol Meclizine HCl 12.5 mg 12/06/19 10:33 Meclizine Hcl 12.5 Mg Tablet PO Q8H PRN Vertigo Nitroglycerin 0.4 mg 12/01/19 20:57 Nitroglycerin 0.4 Mg Tab.Subl SUBLINGUAL Q5M PRN chest pain Omeprazole 40 mg 12/04/19 06:30 12/07/19 05:47 Omeprazole 40 Mg Capsule. PO 40 mg DAILY@0630 DANIEL Administration Ondansetron HCl 4 mg 12/01/19 20:57 12/07/19 08:58 Ondansetron Hcl 4 Mg/2 Ml Vial IVPUSH 4 mg Q8H PRN Administration Nausea and Vomiting Pharmacy Consult 1 each 12/01/19 17:36 Consult Rx Perform Med Rec MISCELLANE ONCE PRN Consult order Potassium Chloride 10 meq 12/01/19 21:00 12/07/19 08:54 Potassium Chloride Er 10 Meq Capsule.Er PO 10 meq BID DANIEL Administration Sodium Chloride 3 ml 12/02/19 00:00 12/07/19 08:54 0.9 % Sodium Chloride Flush 3 Ml Syringe IVFLUSH 3 ml QSHIFT DAINEL Administration Sucralfate 1 gm 12/01/19 21:00 12/06/19 21:35 Sucralfate 1 Gm/10 Ml Oral.Susp PO 1 gm BEDTIME DANIEL Administration Vitamin D 25 mcg 12/02/19 09:00 12/07/19 08:54 Cholecalciferol (Vitamin D3) 25 Mcg Tablet PO 25 mcg DAILY DANIEL Administration Labs CBC & Chem 7: 12/02/19 05:56 12/02/19 05:56 Microbiology Microbiology Results: Microbiology 12/01/19 11:59 Blood - Venous Blood Culture - Final No growth after 5 days. 12/01/19 11:32 Blood - Venous Blood Culture - Final No growth after 5 days. Assessment and Plan (1) Community acquired pneumonia: Status: Acute (2) Weakness: Status: Acute (3) Hypercholesterolemia: Status: Acute (4) HTN (hypertension): Status: Inactive (5) CAD (coronary artery disease): Status: Acute Assessment and Plan: 79-year-old woman admitted with community-acquired pneumonia and weakness. Community-acquired pneumonia. Clinically improve. change Ceftriaxone to PO Ceftin once nausea improves Weakness. Home with home PT Hypertension. Home medications (coreg, Lasix) History of atrial fibrillation. Continue Eliquis and carvedilol. History of coronary artery disease. Continue statin and beta-becca. Obesity. BMI 45.7. Likely contributing to worsening medical conditions include hypertension , weight loss advised AFIB rate controlled, continue Coreg and Eliquis Vertigo--Benign positional type, Tried meclizine, Neuro eval and may benefit from vistular rehab GI: nause. Zofran, Phenergan Trnasfer to med surg if bed needed Discharge probably later today
[2019-12-07 10:42] VITALS: BP 129/62; PULSE 80; O2SAT 94
[2019-12-07 11:27] VITALS: BP 134/64; PULSE 78; RESP 20; TEMP 37; O2SAT 97
--- NOTE | 2019-12-07 12:13 | PM.NEUROCN ---
History of Present Illness Data of Consult Primary Care Provider: Unknown Physician 79 yo woman who started having headache and dizziness (sense of motion) a few days ago. She was admitted in hospital and was diagnosed with penumonia and getting antibiotics. Headache adn dizziness were still there. Dizziness was worse with getting up and around and better at rest. No brainstem symptoms. No ear symptoms. Review of Systems Review of Systems: General: no loss of weight, or fever Neuro: Headache and dizziness Psych: no active issues reported Heart: no SOB or chest pain Lungs: no cough or SOB Extremiteis: no edema Musculoskeletal: no joint pains Sleep: no sleep issues reported skin: no rashes ENT: no URI symptoms Neck: no neck pain PMFSH Past Medical History Medical History (Updated 12/07/19 @ 12:19 by Jet Toribio MD) Afib Anxiety CAD (coronary artery disease) Clostridium difficile colitis Diverticulitis DVT (deep venous thrombosis) GERD (gastroesophageal reflux disease) HTN (hypertension) Hypercholesterolemia Functional capacity: uses cane/walker Surgical History Surgical History H/O angioplasty H/O cardiac catheterization H/O: hysterectomy Hx of appendectomy Hx of cholecystectomy Social History Social History Housing: House Do you presently have visiting nurse or other home services: Yes Alcohol intake: current Alcohol intake frequency: holidays/special occasions only Smoking Status: Former smoker Smoked in Last 30 Days: No Patient Interested in Nicotine Replacement: No Patient Given Instructions on How to Stop Smoking: No Second Hand Smoke Exposure: No Use of substances other than those prescribed or required for medical reasons: No Currently Displaying Signs/Symptoms of Drug Intoxication Withdrawal: No Any prior treatment program specific to substance use: No Have you been hit, kicked, punched, or otherwise hurt by someone within the past year? If so, by whom?: No Do you feel safe in your current relationship?: No Current Relationship Is there a partner from a previous relationship who is making you feel unsafe now?: No Are you made to feel afraid or neglected: No Advance Directives: No Advance Directives Information Provided: Yes Do you have thoughts of harming others: None Do you have a plan to hurt others: No Plan Recently lost weight without trying: No service: No Current occupational status: retired [email or web address] Allergies Allergy/AdvReac Type Severity Reaction Status Date / Time morphine [MORPHINE] Allergy Unknown RASH Verified 11/21/19 09:16 pregabalin [From LYRICA] Allergy Unknown NAUSEA, Verified 11/21/19 09:16 felt high on drugs Home Medications Medication Instructions Recorded Confirmed Type apixaban 5 mg tablet 5 mg PO BID 11/21/19 12/01/19 History ascorbic acid (vitamin C) 500 mg 500 mg PO BID 11/21/19 12/01/19 History tablet atorvastatin 40 mg tablet 40 mg PO BEDTIME 11/21/19 12/01/19 History carvedilol 12.5 mg tablet 12.5 mg PO BID 11/21/19 12/01/19 History cyanocobalamin (vitamin B-12) 1,000 mcg IM Q30D 11/21/19 12/01/19 History 1,000 mcg/mL injection solution dexlansoprazole 30 mg 30 mg PO DAILY 11/21/19 12/01/19 History capsule,biphase delayed release duloxetine 30 mg capsule,delayed 30 mg PO DAILY 11/21/19 12/01/19 History release fluticasone 500 mcg-salmeterol 50 1 inh INHALATION BID 11/21/19 12/01/19 History mcg/dose blistr powdr for inhalation furosemide 40 mg tablet 40 mg PO DAILY 11/21/19 12/01/19 History losartan 50 mg tablet 75 mg PO DAILY 11/21/19 12/01/19 History potassium chloride 10 mEq 10 meq PO BID 11/21/19 12/01/19 History tablet,extended release sucralfate 100 mg/mL oral 1 g PO BEDTIME 11/21/19 12/01/19 History suspension syringe with needle, safety 3 mL #100 ea 11/21/19 11/21/19 History 25 gauge x 5/8 albuterol sulfate 2.5 mg INHALATION Q6H PRN 12/01/19 12/01/19 History albuterol sulfate [ProAir HFA] 2 puff INHALATION Q4H PRN 12/01/19 12/01/19 History aspirin 81 mg PO DAILY 12/01/19 12/01/19 History cholecalciferol (vitamin D3) 25 mcg PO DAILY 12/01/19 12/01/19 History [Vitamin D3] dicyclomine 10 mg PO QID PRN 12/01/19 12/01/19 History ezetimibe [Zetia] 10 mg PO DAILY 12/01/19 12/01/19 History ferrous sulfate 325 mg PO DAILY 12/01/19 12/01/19 History tiotropium bromide [Spiriva with 1 cap INHALATION DAILY 12/01/19 12/01/19 History HandiHaler] Physical Exam Vital Signs: Vital Signs: Vital Signs Temp Pulse Resp BP Pulse Ox 12/07/19 11:27 98.6 F 78 20 134/64 97 12/07/19 10:42 80 129/62 94 12/07/19 08:00 96.9 F 80 20 129/62 94 12/07/19 04:21 109/52 L 12/07/19 03:48 97.7 F 75 18 91 L 12/07/19 00:04 98.5 F 76 18 138/58 L 93 12/06/19 19:48 97.3 F 79 18 155/64 H 95 12/06/19 15:46 97.3 F 84 18 150/56 H 95 12/06/19 13:37 77 139/62 Body Mass Index 45.7 Mental status examination: Normal attention, orientation, memory and affect Cranial Nerve examination: Pupils are equal, round and reactive to light. External ocular muscles are intact. Visual diallo are full. Face is symmetrical. Facial sensations are normal. Tongue is midline. Palate elevates symmetrically. Shoulder shrugging is normal. Hearing to bedside conversation is normal. Motor examination: Normal muscle tone, bulk and strength, Deep tendon reflexes are 2+. Plantar reflexes are flexor bilaterally. Cerebellar examination: Finger to nose is normal. Speech: Normal. Extrapyramidal system: Within normal limits. Involuntary movements: None. Results Labs CBC & Chem 7: 12/02/19 05:56 12/02/19 05:56 Microbiology Microbiology Results: Microbiology 12/01/19 11:59 Blood - Venous Blood Culture - Final No growth after 5 days. 12/01/19 11:32 Blood - Venous Blood Culture - Final No growth after [address] brain: OK Assessment and Plan (1) Dizziness: Status: Acute Infection related dizziness and headache. use PRN meds. No neuro tests needed
[2019-12-07] MEDS: Meclizine HCl 12.5 MG TABLET PO (12:21)
== END 2019-12-07 15:45 | disposition home health service (06) | DRG 194 ==
LOC: HO.ED 15:31 → HO.IMC 18:20
PROVIDERS: Nurse Practitioner Acute Care; Admitting Provider Internal Medicine; Emergency Provider Emergency Medicine; Visit Provider Internal Medicine
DX: J18.9 Pneumonia, unspecified organism (principal); Z68.42 Body mass index [BMI] 45.0-49.9, adult; F41.9 Anxiety disorder, unspecified; I25.10 Atherosclerotic heart disease of native coronary artery without angina pectoris; K21.9 Gastro-esophageal reflux disease without esophagitis; E78.00 Pure hypercholesterolemia, unspecified; Z87.891 Personal history of nicotine dependence; E66.9 Obesity, unspecified; H81.10 Benign paroxysmal vertigo, unspecified ear; Z20.828 Contact with and (suspected) exposure to other viral communicable diseases; Z86.718 Personal history of other venous thrombosis and embolism; Z88.5 Allergy status to narcotic agent; Z79.01 Long term (current) use of anticoagulants; Z79.52 Long term (current) use of systemic steroids; Z79.82 Long term (current) use of aspirin; Z79.890 Hormone replacement therapy; Z79.899 Other long term (current) drug therapy
CPT/HCPCS: 36415; 70450; 71045; 71250; 80048; 80076; 81001; 81003; 82728; 83605; 83615; 83690; 83735; 83880; 84145; 84484; 85025; 85610; 85730; 86140; 87040; 87635; 93005; 96365; 97110; 97116; 97162; 99223; 99285; J2405

== ENCOUNTER → 2020-01-07 11:20 | Outpatient (BNVA) | payer OTHER, SELFPAY | PROVIDERS: PCP Internal Medicine; Referring Provider Internal Medicine; Visit Provider Internal Medicine | DX: J44.9 Chronic obstructive pulmonary disease, unspecified (principal); J98.4 Other disorders of lung; J96.91 Respiratory failure, unspecified with hypoxia; G47.33 Obstructive sleep apnea (adult) (pediatric); E66.01 Morbid (severe) obesity due to excess calories; Z79.899 Other long term (current) drug therapy | CPT/HCPCS: 99212 ==

== ENCOUNTER 2020-01-25 09:51 | Outpatient (REF) | payer OTHER, SELFPAY ==
--- NOTE | 2020-01-25 10:17 | XR_ITS ---
EXAMINATION: XR CHEST CLINICAL INFORMATION: Hemoptysis COMPARISON: Previous chest x-ray and chest CT November 2012 TECHNIQUE: 2 views of the chest were obtained. FINDINGS: The cardiac and mediastinal contours are stable. The lungs are clear. There is no pleural effusion or pneumothorax. There are surgical clips in the region of the GE junction/distal esophagus. There is a left humeral prosthesis. There are degenerative changes of the spine and mild scoliosis. XR/XR chest 2V IMPRESSION: No evidence for acute disease in the chest.
[2020-01-25 10:29] LABS: MANUAL DIFF FLAG NO
[2020-01-25 10:38] LABS: Basophils Percent Auto 0.2 % (0-2); Eosinophils Absolute Auto 0.1 X10*3/uL (0.0-0.4); Eosinophils Percent Auto 0.7 % (0-4); Hemoglobin 11.8 g/dl (12.0-16.0); Imm Gran Abs Auto 0.04 X10*3/uL (0.00-0.03); Imm Gran Pct Auto 0.5 % (0.0-0.4); Lymphocytes Absolute Auto 2.2 X10*3/uL (1.2-4.9); Lymphocytes Percent Auto 27.7 % (20-40); Mean Corpuscular HGB Conc 31.9 g/dl (31.0-35.0); Mean Corpuscular Hemoglobin 29.1 pg (27.0-33.0); Mean Corpuscular Volume 91.4 fL (80-98); Mean Platelet Volume 9.5 fL (9.4-12.3); Monocytes Absolute Auto 0.7 X10*3/uL (0.1-1.2); Monocytes Percent Auto 8.6 % (2-11); Neutrophils Percent Auto 62.3 % (45-73); Platelet Count 263 X10*3/uL (160-400); Red Blood Count 4.05 X10*6/uL (4.20-5.50); Red Cell Distribution Width 13.1 % (11.0-16.0); Retic HGB Equivalent 31.3 pg (30.0-35.0); Reticulocyte Percent 2.2 % (0.5-1.8); Reticulocytes Absolute 0.089 X10*6/uL (0.026-0.095); White Blood Count 8.1 X10*3/uL (4.8-10.8)
[2020-01-25 11:03] LABS: Alanine Aminotransferase 18 U/L (0-31); Albumin Level 3.7 g/dL (3.5-5.0); Alkaline Phosphatase 182 U/L (39-117); Anion Gap 13 (12-20); Aspartate Amino Transferase 18 U/L (5-31); Bilirubin Total 0.5 mg/dL (0.0-1.0); Blood Urea Nitrogen 20 mg/dL (9-16); Calcium 8.8 mg/dL (8.4-10.2); Carbon Dioxide 30 mmol/L (22-29); Chloride 104 mmol/L (96-108); Estimated Glomerular Filt Rate > 60; Glucose Random 112 mg/dL (60-115); Iron 63 mcg/dL (30-160); Percent Iron Saturation 21 % (15-50); Potassium 3.8 mmol/l (3.3-5.1); Sodium 143 mmol/L (135-145); Total Iron Binding Capacity 299 mcg/dL (228-428); Total Protein 6.5 g/dL (6.5-8.0); Unsaturated Iron Binding 236 ug/dL
[2020-01-25 11:25] LABS: Ferritin 45 ng/mL (10-250); Thyroid Stimulating Hormone 4.72 uIU/mL (0.32-4.0)
[2020-01-25 11:54] LABS: Vitamin B12 675 pg/mL (200-900)
== END 2020-01-25 09:52 | disposition home or self-care (01) ==
LOC: HO.LAB 09:51
PROVIDERS: PCP Internal Medicine; Visit Provider Internal Medicine
DX: R04.2 Hemoptysis (principal)
CPT/HCPCS: 36415; 71046; 80053; 82607; 82728; 82746; 83540; 84443; 85025; 85045

== ENCOUNTER 2020-02-22 09:53 | Outpatient (REF) | payer OTHER, SELFPAY ==
--- NOTE | 2020-02-22 09:59 | XR_ITS ---
EXAMINATION: XR SINUSES CLINICAL INFORMATION: Nasal congestion COMPARISON: Previous head CT scan November 2019 and sinus x-rays November 2015 TECHNIQUE: 3 views of the sinuses were obtained. FINDINGS: There is increased soft tissue attenuation of the left maxillary sinus questionable for sinusitis. The left paranasal sinus appears smaller than the right when compared with previous CT scan of the brain November 2019 and may account for some of the apparent changes on x-ray. No air-fluid level is seen. The paranasal sinuses are otherwise clear. Bony structures are unremarkable. XR/XR sinus min 3V IMPRESSION: Increased soft tissue attenuation of the left maxillary sinus compared to the right questionable for sinusitis. Some of these changes may be due to small size of the left maxillary sinus compared to the right when compared with prior CT scan.
--- NOTE | 2020-02-22 09:59 | US_ITS ---
EXAMINATION: US ABDOMINAL AORTA CLINICAL INFORMATION: Aortic aneurysm. COMPARISON: CT abdomen and pelvis 12/21/2018 TECHNIQUE: Retroperitoneal ultrasound imaging with attention to abdominal aorta was performed. FINDINGS: The proximal abdominal aorta measures 2.5 x 2.7 cm. The mid abdominal aorta measures 3.3 x 3.8 cm.] The distal abdominal aorta measures 2.3 x 2.5 cm. The exam was discontinued as the patient was unable to tolerate the exam further. Hence, the common iliac arteries and the peak systolic velocity of the abdominal aorta was not obtained. US/US abdominal aortic aneurysm IMPRESSION: Mild aneurysmal dilatation of the abdominal aorta measuring 3.8 x 3.3 cm. On the previous CT abdomen exam 12/21/2018, it measured approximately 3.3 x 3.1 cm and minimal thrombus around the right and left aortic frazier. Both the common and external iliac arteries were not evaluated. Peak systolic velocity of the aorta was not evaluated as the patient could not tolerate the exam and the exam was stopped.
== END 2020-02-22 09:54 | disposition home or self-care (01) ==
LOC: HO.US 09:53
PROVIDERS: PCP Internal Medicine; Visit Provider Internal Medicine
DX: I71.4 Abdominal aortic aneurysm, without rupture (principal); R09.81 Nasal congestion
CPT/HCPCS: 70220; 76706

== ENCOUNTER 2020-05-31 10:03 | Outpatient (REF) | payer OTHER, SELFPAY ==
[2020-05-31 11:17] LABS: Venous Blood Gas Refer to POC result
[2020-05-31 11:19] LABS: VBG Base Excess 6.3 mmol/L; VBG HCO3 32 mmol/L (22-26); VBG pCO2 54 mmHg; VBG pH 7.39 (7.32-7.43); VBG pO2 34 mmHg
[2020-05-31 11:55] LABS: Thyroid Stimulating Hormone 3.68 uIU/mL (0.32-4.0)
[2020-05-31 12:13] LABS: Glucose Urine UA NEG (NEG); Leukocyte Esterase Urine NEG (NEG); Nitrite Urine NEG (NEG); Specific Gravity - Urine 1.025 (1.005-1.025); Urine Blood NEG (NEG); Urine Ketones NEG (NEG); Urine Protein NEG (NEG-TRACE)
[2020-05-31 12:14] LABS: Appearance Urine HAZY; Color Urine YELLOW
== END 2020-05-31 10:04 | disposition home or self-care (01) ==
LOC: HO.LAB 10:03
PROVIDERS: Internal Medicine; PCP Internal Medicine; Visit Provider Internal Medicine
DX: J44.9 Chronic obstructive pulmonary disease, unspecified (principal); J98.4 Other disorders of lung; J96.91 Respiratory failure, unspecified with hypoxia; G47.33 Obstructive sleep apnea (adult) (pediatric); E66.01 Morbid (severe) obesity due to excess calories; E03.9 Hypothyroidism, unspecified; R30.0 Dysuria
CPT/HCPCS: 36415; 81003; 84439; 84443; 99212

== ENCOUNTER 2020-07-27 10:04 | Outpatient (REF) | payer OTHER, SELFPAY ==
[2020-07-27 11:40] LABS: MANUAL DIFF FLAG NO
[2020-07-27 11:49] LABS: Basophils Percent Auto 0.2 % (0-2); Eosinophils Absolute Auto 0.1 X10*3/uL (0.0-0.4); Eosinophils Percent Auto 1.2 % (0-4); Hematocrit 37.3 % (37-47); Hemoglobin 11.7 g/dl (12.0-16.0); Imm Gran Abs Auto 0.09 X10*3/uL (0.00-0.03); Imm Gran Pct Auto 1.1 % (0.0-0.4); Immature Retic Fraction 22.1 % (3.0-15.9); Lymphocytes Absolute Auto 2.1 X10*3/uL (1.2-4.9); Lymphocytes Percent Auto 25.2 % (20-40); Mean Corpuscular HGB Conc 31.4 g/dl (31.0-35.0); Mean Corpuscular Hemoglobin 28.6 pg (27.0-33.0); Mean Corpuscular Volume 91.2 fL (80-98); Mean Platelet Volume 9.9 fL (9.4-12.3); Monocytes Absolute Auto 0.8 X10*3/uL (0.1-1.2); Monocytes Percent Auto 9.7 % (2-11); Neutrophils Absolute Auto 5.1 X10*3/uL (2.0-8.3); Neutrophils Percent Auto 62.6 % (45-73); Platelet Count 300 X10*3/uL (160-400); Red Blood Count 4.09 X10*6/uL (4.20-5.50); Red Cell Distribution Width 13.2 % (11.0-16.0); Retic HGB Equivalent 30.5 pg (30.0-35.0); Reticulocyte Percent 1.9 % (0.5-1.8); Reticulocytes Absolute 0.077 X10*6/uL (0.026-0.095); White Blood Count 8.2 X10*3/uL (4.8-10.8)
[2020-07-27 12:15] LABS: B Type Natriuretic Peptide 68 pg/mL (<100)
[2020-07-27 12:54] LABS: Alanine Aminotransferase 15 U/L (0-31); Albumin Level 3.5 g/dL (3.5-5.0); Alkaline Phosphatase 190 U/L (39-117); Anion Gap 13 (12-20); Aspartate Amino Transferase 18 U/L (5-31); Bilirubin Total 0.4 mg/dL (0.0-1.0); Blood Urea Nitrogen 17 mg/dL (9-16); Calcium 9.2 mg/dL (8.4-10.2); Carbon Dioxide 27 mmol/L (22-29); Chloride 107 mmol/L (96-108); Cholesterol 165 mg/dL; Estimated Glomerular Filt Rate 59; Folate 8.9 ng/mL (> or = 4.0); Glucose Random 110 mg/dL (60-115); HDL Cholesterol 33 mg/dL; Iron 59 mcg/dL (30-160); LDL Cholesterol Calculated 88 mg/dl; Percent Iron Saturation 20 % (15-50); Potassium 4.2 mmol/L (3.3-5.1); Sodium 143 mmol/L (135-145); Total Iron Binding Capacity 300 mcg/dL (228-428); Total Protein 6.2 g/dL (6.5-8.0); Triglycerides 224 mg/dL; Unsaturated Iron Binding 241 ug/dL; Vitamin B12 > 2000 pg/mL (200-900)
[2020-07-27 12:58] LABS: Free T4 (Free Thyroxine) 0.87 ng/dL (0.71-1.85); Thyroid Stimulating Hormone 4.25 uIU/mL (0.32-4.0); Vitamin D 25-OH Total 16.9 ng/mL (>30)
[2020-07-27 13:32] LABS: Ferritin 51 ng/mL (10-250)
== END 2020-07-27 10:05 | disposition home or self-care (01) ==
LOC: HO.LAB 10:04
PROVIDERS: PCP Internal Medicine; Visit Provider Internal Medicine
DX: I11.0 Hypertensive heart disease with heart failure (principal); I50.32 Chronic diastolic (congestive) heart failure; I25.10 Atherosclerotic heart disease of native coronary artery without angina pectoris; E78.00 Pure hypercholesterolemia, unspecified; E03.9 Hypothyroidism, unspecified
CPT/HCPCS: 36415; 80053; 80061; 82306; 82607; 82728; 82746; 83540; 83880; 84439; 84443; 85025; 85045

== ENCOUNTER 2020-09-16 10:06 | Outpatient (REF) | payer OTHER, SELFPAY ==
[2020-09-16 11:31] LABS: Free T4 (Free Thyroxine) 0.93 ng/dL (0.71-1.85); Thyroid Stimulating Hormone 3.62 uIU/mL (0.32-4.0)
== END 2020-09-16 10:07 | disposition home or self-care (01) ==
LOC: HO.LAB 10:06
PROVIDERS: PCP Internal Medicine; Visit Provider Internal Medicine
DX: E03.9 Hypothyroidism, unspecified (principal)
CPT/HCPCS: 36415; 84439; 84443

== ENCOUNTER 2020-10-21 10:20 | Outpatient (REF) | payer OTHER, SELFPAY ==
--- NOTE | ~2020-10-21 | MM_ITS ---
EXAMINATION: BONE DENSITOMETRY CLINICAL INDICATION: Other specified disorders of bone density and structure. COMPARISON: Previous BD dated 09/25/2011 and baseline BD dated 03/22/2009. TECHNIQUE: Using a [employer] DXA System (software version: 13.1) manufactured by [employer], dual-energy x-ray absorptiometry was performed of the spine and left hip. The images are of good technical quality. Summary results are attached. FINDINGS: AP SPINE L1-L4 (excluding L3): The data of L1-L4 has been changed to exclude the L3 vertebral body, because levocurvature and degenerative changes at this level may cause overestimation of lumbar spine density. Current: BMD 0.945 g/cm2, Z-score -1.2, T-score -1.9, osteopenia, 5.2% decrease from previous, 4.8% decrease from baseline (<5% change is not significant). Prior: BMD 0.997 g/cm2. Baseline: BMD 0.993 g/cm2. LEFT FEMUR, NECK: Current: BMD 0.698 g/cm2, Z-score -1.0, T-score -2.4, osteopenia. Prior: BMD 0.773 g/cm2. Baseline: BMD 0.796 g/cm2. LEFT FEMUR, TOTAL: Current: BMD 0.806 g/cm2, Z-score -0.4, T-score -1.6, osteopenia, 4.2% decrease from previous, 6.7% decrease from baseline (<5% change is not significant). Prior: BMD 0.841 g/cm2. Baseline: BMD 0.864 g/cm2. IDENTIFIED RISK FACTORS: Height loss. Early menopause, secondary osteoporosis, anticonvulsants, hysterectomy, bilateral oophorectomy. HISTORY OF FRACTURE: None listed. MEDICATIONS: Calcium supplements or multivitamin, vitamin D. MM/XR DEXA axial skeleton IMPRESSION: 1. DIAGNOSIS: Osteopenia based on the lowest T-score value of -2.4 in the femoral neck applying World Health Organization criteria. 2. 10-YEAR FRACTURE RISK PREDICTION, FRAX: Major osteoporotic fracture (clinical spine, forearm, hip or shoulder) 16.2%. Hip fracture 5.2%. 3. Treatment Recommendations: NOF guidelines recommend consideration for treatment in postmenopausal women and men age 50 and older presenting with the following: -A hip or vertebral (clinical or morphometric) fracture. -T-score less than or equal to -2.5 at the femoral neck or spine after appropriate evaluation to exclude secondary causes. -Low bone mass at the hip or spine and a 10-year fracture probability by FRAX of greater than or equal to 3% for hip fracture or greater than or equal to 20% for major osteoporotic fracture based on the [place] adapted WHO algorithm. 4. Other Recommendations: All treatment decisions require clinical judgment and consideration of individual patient factors, including patient preferences, comorbidities, previous drug use, risk factors not captured in the FRAX model (e.g. frailty, falls, vitamin D deficiency, increased bone turnover, interval significant decline in bone density) and possible under or overestimation of fracture risk by FRAX. Additional medical evaluation for secondary cause of low bone mineral density may be appropriate. FUTURE SCAN RECOMMENDATION: People with diagnosed cases of osteoporosis or at high risk for fracture should have regular bone mineral density tests. For patients eligible for Medicare, routine testing is allowed once every 2 years. The testing frequency can be increased to one year for patients who have rapidly progressing disease, those who are receiving or discontinuing medical therapy to restore bone mass, or have additional risk factors.
== END 2020-10-21 10:21 | disposition home or self-care (01) ==
LOC: HO.MAMMO 10:20
PROVIDERS: PCP Internal Medicine; Visit Provider Internal Medicine
DX: Z13.820 Encounter for screening for osteoporosis (principal); M85.80 Other specified disorders of bone density and structure, unspecified site; Z78.0 Asymptomatic menopausal state; Z98.890 Other specified postprocedural states; Z90.722 Acquired absence of ovaries, bilateral; Z79.899 Other long term (current) drug therapy
CPT/HCPCS: 77080

== ENCOUNTER → 2020-10-27 08:59 | Outpatient (BNVA) | payer OTHER, SELFPAY | PROVIDERS: PCP Internal Medicine; Visit Provider Internal Medicine | DX: J43.1 Panlobular emphysema (principal); J98.4 Other disorders of lung; J96.91 Respiratory failure, unspecified with hypoxia; J96.92 Respiratory failure, unspecified with hypercapnia | CPT/HCPCS: 99212 ==

== ENCOUNTER → 2021-01-11 12:49 | Outpatient (BNVA) | payer OTHER, SELFPAY | PROVIDERS: PCP Internal Medicine; Visit Provider Anesthesiology | DX: M47.816 Spondylosis without myelopathy or radiculopathy, lumbar region (principal); M51.36 Other intervertebral disc degeneration, lumbar region; G89.4 Chronic pain syndrome | CPT/HCPCS: 99202 ==

== ENCOUNTER 2021-02-02 11:03 | Outpatient (REF) | payer OTHER, SELFPAY ==
[2021-02-02 11:46] LABS: Basophils Percent Auto 0.3 % (0-2); Eosinophils Absolute Auto 0.1 X10*3/uL (0.0-0.4); Eosinophils Percent Auto 0.5 % (0-4); Hematocrit 41.2 % (37.0-47.0); Hemoglobin 13.1 g/dl (12.0-16.0); Imm Gran Abs Auto 0.06 X10*3/uL (0.00-0.03); Imm Gran Pct Auto 0.6 % (0.0-0.4); Lymphocytes Absolute Auto 2.5 X10*3/uL (1.2-4.9); Lymphocytes Percent Auto 26.4 % (20-40); MANUAL DIFF FLAG NO; Mean Corpuscular HGB Conc 31.8 g/dl (31.0-35.0); Mean Corpuscular Hemoglobin 28.7 pg (27.0-33.0); Mean Corpuscular Volume 90.4 fL (80.0-98.0); Mean Platelet Volume 9.6 fL (9.4-12.3); Monocytes Absolute Auto 0.8 X10*3/uL (0.1-1.2); Monocytes Percent Auto 8.3 % (2-11); Neutrophils Percent Auto 63.9 % (45-73); Platelet Count 289 X10*3/uL (160-400); Red Blood Count 4.56 X10*6/uL (4.20-5.50); Red Cell Distribution Width 13.6 % (11.0-16.0); White Blood Count 9.5 X10*3/uL (4.8-10.8)
[2021-02-02 11:52] LABS: Estimated Average Glucose 114 mg/dL; Hemoglobin A1C 150.9048 umol/L; Hemoglobin A1c % 5.6 %
[2021-02-02 12:14] LABS: Alanine Aminotransferase 12 U/L (0-31); Alkaline Phosphatase 158 U/L (39-117); Anion Gap 14 (12-20); Aspartate Amino Transferase 16 U/L (5-31); Bilirubin Total 0.6 mg/dL (0.0-1.0); Blood Urea Nitrogen 19 mg/dL (9-16); C Reactive Protein 2.52 mg/dL (< or = 0.50); Calcium 9.5 mg/dL (8.4-10.2); Carbon Dioxide 30 mmol/L (22-29); Chloride 103 mmol/L (96-108); Estimated Glomerular Filt Rate 34; Glucose Random 104 mg/dL (60-115); Potassium 3.8 mmol/L (3.3-5.1); Sodium 143 mmol/L (135-145); Total Protein 6.9 g/dL (6.5-8.0)
[2021-02-02 12:20] LABS: B Type Natriuretic Peptide 98 pg/mL (<100)
[2021-02-02 12:35] LABS: Free T4 (Free Thyroxine) 0.91 ng/dL (0.71-1.85); Thyroid Stimulating Hormone 5.29 uIU/mL (0.32-4.0)
[2021-02-02 13:10] LABS: Erythrocyte Sedimentation Rate 44 MM/HR (0-20)
== END 2021-02-02 11:04 | disposition home or self-care (01) ==
LOC: HO.LAB 11:03
PROVIDERS: PCP Internal Medicine; Visit Provider Internal Medicine
DX: L65.9 Nonscarring hair loss, unspecified (principal); E11.65 Type 2 diabetes mellitus with hyperglycemia
CPT/HCPCS: 36415; 80053; 83036; 83880; 84439; 84443; 85025; 85652; 86140

== ENCOUNTER 2021-02-19 11:01 | Inpatient (IN) | payer OTHER, SELFPAY ==
[2021-02-19] VITALS (11 sets, daily range): BP systolic 114–140; BP diastolic 50–75; PULSE 50–111; RESP 16–22; TEMP 36.4–37.1; O2SAT 18–99; BMI 38.1
--- NOTE | ~2021-02-19 | CT_ITS ---
EXAMINATION: CT ANGIOGRAM OF THE CHEST WITH AND WITHOUT CONTRAST (CT PULMONARY ANGIOGRAM FOR PE) CLINICAL INFORMATION: Reason for Exam Shortness of breath, cough, pleuritic chest pain. COMPARISON: CT chest 12/01/2019 TECHNIQUE: Prior to contrast administration, noncontrast localization images were obtained. Subsequently, multidetector volumetric imaging was performed from the thoracic inlet to below the diaphragms following the administration of 65 mL Omnipaque 350 intravenous contrast. No contrast reaction reported Sagittal, coronal, and MIP oblique sagittal reformatted images were obtained on the CT workstation, uploaded to PACS, and reviewed. This CT examination was performed using dose optimization techniques as appropriate, variously including the following: *Automated exposure control *Adjustment of mA and/or kV according to patient size (this includes techniques or standardized protocols for targeted exams where dose is matched to indication/reason for exam; i.e. extremities or head) *Use of iterative reconstruction technique Total exam dose-length product 649 mGy-cm FINDINGS: QUALITY OF STUDY/CONTRAST BOLUS: Satisfactory. PULMONARY ARTERIES: No central or segmental pulmonary emboli. THORACIC AORTA: No aneurysm or dissection. There are scattered vascular wall calcifications of the aorta. LUNG: No acute airways disease. Small area of chronic unchanged subpleural parenchymal scarring at the posterior left upper lobe adjacent to major fissure. The central bronchial airways are open. No interstitial lung disease. No suspicious lung nodules. PLEURA: No pleural effusion or pneumothorax. MEDIASTINUM: Normal heart size. No pericardial effusion. No evidence of septal bowing or right heart strain.. There is an enlarged precarinal lymph node measuring 1.2 cm in short axis diameter. Axial image 19/64 series 5. This previously measured 0.8 cm on CAT scan 12/01/2019. There are a few smaller subcentimeter lymph nodes in the pretracheal retrovascular space and AP window CHEST WALL/AXILLA: No axillary or internal mammary lymphadenopathy. OSSEOUS STRUCTURES: No acute or suspicious osseous abnormality. UPPER ABDOMEN: Surgical clips at GE junction. Exophytic cyst upper pole right kidney measuring 5 cm. No follow-up imaging is recommended for simple renal cyst.. No reflux of contrast into the hepatic veins to suggest elevated right heart pressures. CT/CT angio chest PE protocol IMPRESSION: 1. No evidence of pulmonary embolism 2. Mildly enlarged precarinal lymph node in the mediastinum. VTE: negative
--- NOTE | ~2021-02-19 | XR_ITS ---
EXAMINATION: XR CHEST CLINICAL INFORMATION: Shortness of breath, cough. COMPARISON: 01/25/2020 chest radiographs. TECHNIQUE: Frontal view of the chest was obtained. FINDINGS: Minimal linear markings are seen in the left midlung. The right lung is clear. The heart and mediastinal structures are unremarkable. XR/XR chest 1V IMPRESSION: Minimal left midlung atelectasis versus scarring. No acute cardiopulmonary process.
--- NOTE | 2021-02-19 11:18 | ED.URI ---
HPI - URI/Sore Throat General Chief Complaint: Upper Respiratory Symptoms Stated Complaint: GENERAL WEAKNESS,ON HOME O2 Time Seen by Provider: 02/19/21 11:18 Source: patient Mode of arrival: ambulatory Limitations: no limitations History of Present Illness HPI Narrative: This is an 88-year-old female past medical history significant for type 2 diabetes, renal insufficiency, COPD, CAD, hypertension, CRISTA, atrial fibrillation and heart failure presenting to the emergency department with 1 week of malaise, body aches, cough, sore throat, shortness of breath, fevers/chills. Patient tells me that her cough has been productive in nature of green sputum. She tells me that she feels like her body aches started all of a sudden. She also reports shortness of breath, patient uses 2 L via nasal cannula at baseline. She tells me she has had no sick contacts. She is vaccinated against COVID-19. She denies headache, dizziness, vision changes, chest pain, abdominal pain, nausea, vomiting. MD elicited complaint: cough (productive), sore throat and other (Body aches ) Onset (ago): week(s) (1) Consistency: constant Severity: moderate Able to tolerate fluids by mouth: Yes Exacerbating factors: nothing Relieving factors: nothing Associated symptoms: denies other symptoms Treatments prior to arrival: none Related Data Home Medications Medication Instructions Recorded Confirmed sucralfate 100 mg/mL oral 1 g PO BEDTIME 11/21/19 10/05/20 suspension aspirin 81 mg tablet 81 mg PO DAILY 12/01/19 10/05/20 cholecalciferol (vitamin D3) 25 25 mcg PO DAILY 12/01/19 10/05/20 mcg (1,000 unit) capsule (Vitamin D3) dicyclomine 10 mg capsule 10 mg PO QID PRN 12/01/19 10/05/20 ferrous sulfate 325 mg (65 mg 325 mg PO DAILY 12/01/19 10/05/20 iron) tablet Previous Rx's Medication Instructions Recorded docusate sodium 100 mg capsule 100 mg PO BID PRN #60 cap 02/16/20 dexlansoprazole 30 mg 30 mg PO DAILY #90 cap 04/21/20 capsule,biphase delayed release (Dexilant) PUREWICK #90 ea 04/25/20 furosemide 40 mg tablet 40 mg PO BID #180 tab 05/04/20 syringe with needle, safety 3 mL 1 ml TOPICAL Q4W #3 ea 05/08/20 25 gauge x 5/8 (BD Integra Syringe) ascorbic acid (vitamin C) 500 mg 500 mg PO BID #180 tab 05/13/20 tablet levothyroxine 100 mcg tablet 100 mcg PO QAM #90 tab 05/26/20 atorvastatin 40 mg tablet 40 mg PO DAILY #90 tab 06/08/20 ezetimibe 10 mg tablet 10 mg PO DAILY #90 tab 06/19/20 apixaban 5 mg tablet (Eliquis) 5 mg PO BID 90 Days #180 tab 08/04/20 duloxetine 30 mg capsule,delayed 30 mg PO DAILY #90 cap 08/04/20 release clotrimazole 1 % topical cream See Rx Instructions TOPICAL BID 08/31/20 #45 g stair lift and ramp #1 ea 08/31/20 Accu-Chek Ruth Plus Meter #1 ea NS 09/02/20 (blood-glucose meter) Accu-Chek Ruth Plus test strp #100 ea NS 09/02/20 (blood sugar diagnostic) Accu-Chek Softclix Lancets #100 ea NS 09/02/20 (lancets) blood sugar diagnostic (OneTouch #100 ea 09/14/20 Ultra Test) blood-glucose meter (OneTouch #1 ea 09/14/20 Ultra2 Meter) lancets (OneTouch UltraSoft #100 ea 09/14/20 Lancets) blood sugar diagnostic (OneTouch #50 ea 09/16/20 Ultra Test) blood-glucose meter (OneTouch #1 ea 09/16/20 UltraMini) lancets (OneTouch UltraSoft #100 ea 09/16/20 Lancets) fluticasone 500 mcg-salmeterol 50 1 inh INHALATION BID #60 ea 09/19/20 mcg/dose blistr powdr for inhalation losartan 50 mg tablet 75 mg PO DAILY #45 tab 09/26/20 Wheelchair Ramp #1 ea 10/06/20 Transfer Bench #1 ea 11/01/20 blood pressure monitor (Blood #1 ea 11/03/20 Pressure Kit) carvedilol 25 mg tablet 25 mg PO BID 90 Days #180 tab 11/09/20 cyanocobalamin (vitamin B-12) 1,000 mcg IM Q4W 90 Days #4 ml 11/09/20 1,000 mcg/mL injection solution semaglutide 1 mg/dose (4 mg/3 mL) 1 mg (0.75 mL) SUBCUT QWEEK 30 11/23/20 subcutaneous pen injector Days #3.75 ml tizanidine 4 mg capsule 4 mg PO BEDTIME PRN #30 cap 11/29/20 potassium chloride 10 mEq 10 meq PO BID #180 tab 12/05/20 tablet,extended release nitroglycerin 0.4 mg sublingual 0.4 mg SUBLINGUAL Q5M PRN 90 Days 01/02/21 tablet #25 tab meclizine 12.5 mg tablet 12.5 mg PO DAILY PRN #30 tab 01/08/21 tiotropium bromide 18 mcg capsule 1 cap INHALATION DAILY #90 ea 01/08/21 with inhalation device (Spiriva with HandiHaler) albuterol sulfate 90 mcg/actuation 2 puff PO Q4H PRN #8.5 ea 01/13/21 aerosol inhaler albuterol sulfate 2.5 mg (3 mL) INHALATION Q6H PRN 01/17/21 #450 ml ipratropium 0.5 mg-albuterol 3 mg 3 ml INHALATION Q4-6H PRN 30 Days 01/18/21 (2.5 mg base)/3 mL nebulization #180 ml [facility] #1 ea 01/23/21 [id number]-birztamdo 3.5 4 drp OTIC (EAR) LEFT Q8H 5 Days 02/07/21 mg-10,000 unit/mL-1 % ear #10 ml drops,susp Allergies Allergy/AdvReac Type Severity Reaction Status Date / Time morphine [MORPHINE] Allergy Unknown RASH Verified 01/23/21 10:38 pregabalin [From LYRICA] Allergy Unknown NAUSEA, Verified 01/23/21 10:38 felt high on drugs Review of Systems Review of Systems: Constitutional : No Weight loss, + Fever, + Chills, No Fatigue, No Malaise ENT/Mouth : + sore throat, No Rhinorrhea Eyes: No Eye Pain, No Swelling, No Redness Cardiovascular : No Chest Pain, + SOB, + Dyspnea on Exertion, No Orthopnea, No Edema, No Palpitations Respiratory : No Cough, No Sputum, No Wheezing Gastrointestinal : No Nausea, No Vomiting, No Diarrhea, No Constipation, No abdominal Pain, No Hematochezia, No Melena Genitourinary : No Dysuria, No Urinary Frequency, No Hematuria, Musculoskeletal : No joint pain, No Myalgias, No Joint Swelling Skin : No Skin Lesions, No rash Neuro : No Weakness, No Numbness, No Dizziness, No Headache All other systems reviewed and are negative Yes all other systems are reviewed and are negative [facility] Past Medical History Attestation statement: The following information was validated with the patient. 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 Diarrhea Diverticulitis DVT (deep venous thrombosis) Fibromyalgia GERD (gastroesophageal reflux disease) History of spinal stenosis HTN (hypertension) Hypercholesterolemia Hypothyroid Low back pain Lower extremity weakness Nasal congestion Obesity (BMI 30-39.9) Obstructive sleep apnea Otitis externa Paroxysmal atrial fibrillation Pernicious anemia Respiratory failure with hypoxia and hypercapnia Restrictive lung disease Spondylosis of lumbar spine Surgical History H/O angioplasty H/O cardiac catheterization History of arthroplasty of left shoulder Hx of appendectomy Hx of cholecystectomy S/P BREANN-BSO (total abdominal hysterectomy and bilateral salpingo-oophorectomy) Family History Family History Father Hypertension CVD (cardiovascular disease) Mother Colon cancer Sister Leukemia Sister Colon cancer Son Lung cancer Colon polyps Social History Social History Housing: Apartment Do you presently have visiting nurse or other home services: Yes Alcohol intake: current Alcohol intake frequency: holidays/special occasions only Patient Tobacco Use Status: Former Tobacco user Tobacco use type: Cigarette Years Smoked: stopped 2009 e-Cigarette/Vaping Use: Never Used Second Hand Smoke Exposure: No Advance Directives: No Advance Directives Information Provided: No service: No Current occupational status: retired Current occupational exposures/hazards: No Physical Exam Vital Signs: Vital Signs: Last Vital Signs Temp 97.5 F 02/19/21 18:31 Pulse 111 H 02/19/21 18:31 Resp 20 02/19/21 18:31 BP 130/72 02/19/21 18:31 Pulse Ox 95 02/19/21 18:31 Oxygen Flow Rate 2 02/19/21 11:11 BMI result Body Mass Index 38.1 VSS patient on 2L via nasal canula Appearance: Alert.? Oriented X3.? No acute distress.? Head: Normocephalic, atraumatic, no step-offs or deformities Eyes: Pupils equal, round and reactive to light.? ENT: Pharynx normal.? Neck: Normal inspection.? Neck supple.? CVS: Normal heart rate and rhythm.? Pulses normal.? Respiratory: No respiratory distress.? Breath sounds normal.? Abdomen: Soft and nontender.? Skin: Skin warm and dry.? Normal skin color.? Normal skin turgor.? Extremities: 1+ pitting edema b/l.? No calf ttp. 5/5 strength to bilateral upper and lower extremities Back: No midline tenderness, no C-spine tenderness, full range of motion, no CVA tenderness bilaterally Neuro: Oriented X 3.? No motor deficit.? No sensory deficit. Course Reevaluation(s) Reevaluation #1: No leukocytosis, no anemia. Troponin is noted to be elevated 30.7, will repeat this in 3 hours. BNP 90. No acute electrolyte abnormalities. Carbon dioxide is noted to be slightly elevated however, this appears to be patient's baseline. is COVID negative. Cxray no acute findings. At this time this CTA of the chest has been ordered due to patient's pleuritic chest pain, PE can not be ruled out using PERC criteria. Time: 12:57 Reevaluation #2: CTA is negative for VTE/PE. It shows an enlarged precarinal lymph node in the mediastinum. At this time we have a troponin pending. Patient continues to not complain of chest pain. Time: 14:52 Reevaluation #3: Troponin flat. Patient is now having expiratory wheezes, I have ordered a DuoNeb X2. Time: 16:30 Additional Reevaluation(s): 1819 Ambulatory trial, unsuccessful due to patient being weak, and feeling like she is going to fall. I will admit patient for COPD exacerbation and bronchitis. At this time patient will be admitted to the hospitalist team. MDM - URI/Sore Throat MDM Narrative Medical decision making narrative: 1123 88 YO F pmhx DM renal insufficiency, COPD, CAD, HTN, CRISTA, afib and CHF presenting to the ED w/ 1 week of malaise, body aches, productive cough of green sputum, sore throat, shortness of breath currently at baseline 2L via nasal canula, subjective fevers/chills. Upon physical examination patient appears well, she is on 2 L via nasal cannula and saturating at 97%. Lungs are clear. Regular rate and rhythm. Abdomen soft nontender nondistended. No focal neuro deficits. Has 1+ pitting edema bilaterally. Patient tells me this is her baseline. Plan at this time is to obtain basic labs, chest x-ray, EKG, troponin & BNP Medical Records Attestation: I reviewed the patient's medical records. Lab Data Attestation: I reviewed the patient's lab results. Result diagrams: 02/19/21 12:18 02/19/21 12:18 Labs: Lab Results 02/19/21 02/19/21 02/19/21 Range/Units 12:18 12:18 12:18 WBC 7.8 (4.8-10.8) X10*3/uL RBC 4.55 (4.20-5.50) X10*6/uL Hgb 12.8 (12.0-16.0) g/dl Hct 40.3 (37.0-47.0) % MCV 88.6 (80.0-98.0) fL MCH 28.1 (27.0-33.0) pg MCHC 31.8 (31.0-35.0) g/dl RDW 13.8 (11.0-16.0) % Plt Count 221 (160-400) X10*3/uL MPV 9.7 (9.4-12.3) fL Immature Gran % (Auto) 0.8 H (0.0-0.4) % Neut % (Auto) 68.4 (45-73) % Lymph % (Auto) 16.5 L (20-40) % [place] % (Auto) 13.4 H (2-11) % Eos % (Auto) 0.6 (0-4) % Baso % (Auto) 0.3 (0-2) % Lymph # (Auto) 1.3 (1.2-4.9) X10*3/uL [place] # (Auto) 1.1 (0.1-1.2) X10*3/uL Eos # (Auto) 0.1 (0.0-0.4) X10*3/uL Baso # (Auto) 0.0 (0.0-0.2) X10*3/uL Abs Immat Gran (auto) 0.06 H (0.00-0.03) X10*3/uL Absolute Neuts (auto) 5.3 (2.0-8.3) x10*3/uL Absolute Nucleated RBC 0.000 (0.0-0.012) X10*3/uL Nucleated RBC % (auto) 0.0 (0.0-0.2) /100WBC Smear Tech's Comments VERIFIED Sodium 142 (135-145) mmol/L Potassium 3.3 (3.3-5.1) mmol/L Chloride 95 L (96-108) mmol/L Carbon Dioxide 34 H (22-29) mmol/L Anion Gap 16 (12-20) BUN 16 (9-16) mg/dL Creatinine 1.27 (0.5-1.4) mg/dL Estim Creat Clear Calc 36.4 Estimated GFR 40 Random Glucose 96 (60-115) mg/dL Calcium 8.7 D (8.4-10.2) mg/dL Magnesium 1.7 (1.6-2.6) mg/dL Total Bilirubin 0.7 (0.0-1.0) mg/dL AST 24 D (5-31) U/L ALT 14 (0-31) U/L Alkaline Phosphatase 162 H (39-117) U/L Troponin I High Sens 30.7 H (<3.5-17.0) ng/L B-Natriuretic Peptide (<100) pg/mL Total Protein 6.9 (6.5-8.0) g/dL Albumin 3.8 (3.5-5.0) g/dL Urine Color Urine Appearance Urine pH (5.0-8.0) Ur Specific [place] (1.005-1.025) Urine Protein (NEG-TRACE) MG/DL Urine Glucose (UA) (NEG) MG/DL Urine Ketones (NEG) MG/DL Urine Blood (NEG) Urine Nitrite (NEG) Ur Leukocyte Esterase (NEG) Urine RBC (0) /HPF Urine WBC (0-4) /HPF Ur Squamous Epith Cells /LPF Urine Bacteria /LPF COVID-19 (VALARIE) (Negative) COVID-19 Clin Com 02/19/21 02/19/21 02/19/21 Range/Units 12:18 12:18 15:57 WBC (4.8-10.8) X10*3/uL RBC (4.20-5.50) X10*6/uL Hgb (12.0-16.0) g/dl Hct (37.0-47.0) % MCV (80.0-98.0) fL MCH (27.0-33.0) pg MCHC (31.0-35.0) g/dl RDW (11.0-16.0) % Plt Count (160-400) X10*3/uL MPV (9.4-12.3) fL Immature Gran % (Auto) (0.0-0.4) % Neut % (Auto) (45-73) % Lymph % (Auto) (20-40) % [place] % (Auto) (2-11) % Eos % (Auto) (0-4) % Baso % (Auto) (0-2) % Lymph # (Auto) (1.2-4.9) X10*3/uL [place] # (Auto) (0.1-1.2) X10*3/uL Eos # (Auto) (0.0-0.4) X10*3/uL Baso # (Auto) (0.0-0.2) X10*3/uL Abs Immat Gran (auto) (0.00-0.03) X10*3/uL Absolute Neuts (auto) (2.0-8.3) x10*3/uL Absolute Nucleated RBC (0.0-0.012) X10*3/uL Nucleated RBC % (auto) (0.0-0.2) /100WBC Smear Tech's Comments Sodium (135-145) mmol/L Potassium (3.3-5.1) mmol/L Chloride (96-108) mmol/L Carbon Dioxide (22-29) mmol/L Anion Gap (12-20) BUN (9-16) mg/dL Creatinine (0.5-1.4) mg/dL Estim Creat Clear Calc Estimated GFR Random Glucose (60-115) mg/dL Calcium (8.4-10.2) mg/dL Magnesium (1.6-2.6) mg/dL Total Bilirubin (0.0-1.0) mg/dL AST (5-31) U/L ALT (0-31) U/L Alkaline Phosphatase (39-117) U/L Troponin I High Sens 34.1 H (<3.5-17.0) ng/L B-Natriuretic Peptide 90 (<100) pg/mL Total Protein (6.5-8.0) g/dL Albumin (3.5-5.0) g/dL Urine Color Urine Appearance Urine pH (5.0-8.0) Ur Specific [place] (1.005-1.025) Urine Protein (NEG-TRACE) MG/DL Urine Glucose (UA) (NEG) MG/DL Urine Ketones (NEG) MG/DL Urine Blood (NEG) Urine Nitrite (NEG) Ur Leukocyte Esterase (NEG) Urine RBC (0) /HPF Urine WBC (0-4) /HPF Ur Squamous Epith Cells /LPF Urine Bacteria /LPF COVID-19 (VALARIE) Negative (Negative) COVID-19 Clin Com See Note 02/19/21 Range/Units 15:57 WBC (4.8-10.8) X10*3/uL RBC (4.20-5.50) X10*6/uL Hgb (12.0-16.0) g/dl Hct (37.0-47.0) % MCV (80.0-98.0) fL MCH (27.0-33.0) pg MCHC (31.0-35.0) g/dl RDW (11.0-16.0) % Plt Count (160-400) X10*3/uL MPV (9.4-12.3) fL Immature Gran % (Auto) (0.0-0.4) % Neut % (Auto) (45-73) % Lymph % (Auto) (20-40) % [place] % (Auto) (2-11) % Eos % (Auto) (0-4) % Baso % (Auto) (0-2) % Lymph # (Auto) (1.2-4.9) X10*3/uL [place] # (Auto) (0.1-1.2) X10*3/uL Eos # (Auto) (0.0-0.4) X10*3/uL Baso # (Auto) (0.0-0.2) X10*3/uL Abs Immat Gran (auto) (0.00-0.03) X10*3/uL Absolute Neuts (auto) (2.0-8.3) x10*3/uL Absolute Nucleated RBC (0.0-0.012) X10*3/uL Nucleated RBC % (auto) (0.0-0.2) /100WBC Smear Tech's Comments Sodium (135-145) mmol/L Potassium (3.3-5.1) mmol/L Chloride (96-108) mmol/L Carbon Dioxide (22-29) mmol/L Anion Gap (12-20) BUN (9-16) mg/dL Creatinine (0.5-1.4) mg/dL Estim Creat Clear Calc Estimated GFR Random Glucose (60-115) mg/dL Calcium (8.4-10.2) mg/dL Magnesium (1.6-2.6) mg/dL Total Bilirubin (0.0-1.0) mg/dL AST (5-31) U/L ALT (0-31) U/L Alkaline Phosphatase (39-117) U/L Troponin I High Sens (<3.5-17.0) ng/L B-Natriuretic Peptide (<100) pg/mL Total Protein (6.5-8.0) g/dL Albumin (3.5-5.0) g/dL Urine Color YELLOW Urine Appearance CLEAR Urine pH 6.0 (5.0-8.0) Ur Specific [place] 1.010 (1.005-1.025) Urine Protein 1+ H (NEG-TRACE) MG/DL Urine Glucose (UA) NEG (NEG) MG/DL Urine Ketones NEG (NEG) MG/DL Urine Blood TRACE (NEG) Urine Nitrite NEG (NEG) Ur Leukocyte Esterase NEG (NEG) Urine RBC 0 (0) /HPF Urine WBC 0-2 (0-4) /HPF Ur Squamous Epith Cells TRACE /LPF Urine Bacteria NONE /LPF COVID-19 (VALARIE) (Negative) COVID-19 Clin Com Imaging Data Chest x-ray: Attestation: I personally reviewed and interpreted this imaging study as follows: Radiologist's impression: XR/XR chest 1V IMPRESSION: Minimal left midlung atelectasis versus scarring. No acute cardiopulmonary process. ? CTA: Attestation: I personally reviewed and interpreted this imaging study as follows: Radiologist's impression: CT/CT angio chest PE protocol IMPRESSION: ? 1. No evidence of pulmonary embolism 2. Mildly enlarged precarinal lymph node in the mediastinum. ? VTE: negative ECG Data Attestation: I personally reviewed and interpreted this ECG as follows: ECG interpretation date: 02/19/21 ECG interpretation time: 11:55 Prior ECG tracings: available for review Interpretation: Ventricular rate of 108, NE normal, QRS normal, QT/QTC normal. EKG shows sinus tachycardia with P a CTs. There are new ST depressions noted in leads V5 and V6. No acute ischemia. No significant changes when compared to EKG from December 01, 2019. Critical Care Time Critical Care Time Critical Care Time: No Discharge Plan Discharge Clinical Impression: Bronchitis, COPD exacerbation Patient Disposition: Admitted As Inpatient Instructions: Acute Bronchitis (ED) Additional Instructions: Take your medications as prescribed. If you were prescribed antibiotics today, it is important that you take your medication to their entirety, do not skip any doses, do not finish them early. Follow-up with your primary care provider this week. Return to the emergency department with new or worsening symptoms. In case of emergency call 911 Prescriptions: No Action docusate sodium 100 mg capsule 100 mg PO BID PRN (Reason: consti) Qty: 60 RF: 11 dexlansoprazole [Dexilant] 30 mg capsule,biphase delayed releas 30 mg PO DAILY Qty: 90 RF: 3 (DME) RICKCK See Rx Instructions .Route .MEDSUPPLY Qty: 90 RF: 3 furosemide 40 mg tablet 40 mg PO BID Qty: 180 RF: 3 syringe with needle, safety [BD Integra Syringe] 3 mL 25 gauge x 5/8 syringe 1 ml topical Q4W Qty: 3 RF: 12 ascorbic acid (vitamin C) 500 mg tablet 500 mg PO BID Qty: 180 RF: 3 levothyroxine 100 mcg tablet 100 mcg PO QAM Qty: 90 RF: 3 atorvastatin 40 mg tablet 40 mg PO DAILY Qty: 90 RF: 3 ezetimibe 10 mg tablet 10 mg PO DAILY Qty: 90 RF: 3 duloxetine 30 mg capsule,delayed release(DR/EC) 30 mg PO DAILY Qty: 90 RF: 2 Eliquis 5 mg tablet 5 mg PO BID 90 Days Qty: 180 RF: 3 (DME) stair lift and ramp See Rx Instructions .Route .MEDSUPPLY Qty: 1 RF: 0 clotrimazole 1 % cream See Rx Instructions topical BID Qty: 45 RF: 11 (DME) lancets [Accu-Chek Softclix Lancets] Misc See Rx Instructions .ROUTE .MEDSUPPLY Qty: 100 RF: 3 (DME) blood-glucose meter [Accu-Chek Ruth Plus Meter] Misc See Rx Instructions .ROUTE .MEDSUPPLY Qty: 1 RF: 0 (DME) Accu-Chek Ruth Plus test strp Strip See Rx Instructions .ROUTE .MEDSUPPLY Qty: 100 RF: 3 (DME) OneTouch Ultra Test Strip See Rx Instructions .Route Qty: 100 RF: 3 (DME) blood-glucose meter [OneTouch Ultra2 Meter] Kit See Rx Instructions .Route Qty: 1 RF: 0 (DME) lancets [OneTouch UltraSoft Lancets] Misc See Rx Instructions .Route Qty: 100 RF: 3 (DME) blood-glucose meter [OneTouch UltraMini] Kit See Rx Instructions .Route Qty: 1 RF: 0 (DME) OneTouch Ultra Test Strip See Rx Instructions .Route Qty: 50 RF: 11 (DME) lancets [OneTouch UltraSoft Lancets] Misc See Rx Instructions .Route Qty: 100 RF: 11 fluticasone propion-salmeterol 500-50 mcg/dose blister with device 1 inh inhalation BID Qty: 60 RF: 11 losartan 50 mg tablet 75 mg PO DAILY Qty: 45 RF: 3 (DME) Wheelchair Ramp See Rx Instructions .Route .MEDSUPPLY Qty: 1 RF: 0 (DME) Transfer Bench Misc See Rx Instructions .Route Qty: 1 RF: 0 (DME) blood pressure monitor [Blood Pressure Kit] Kit See Rx Instructions .Route Qty: 1 RF: 0 carvedilol 25 mg tablet 25 mg PO BID 90 Days Qty: 180 RF: 2 cyanocobalamin (vitamin B-12) 1,000 mcg/mL solution 1,000 mcg IM Q4W 90 Days Qty: 4 RF: 5 semaglutide 1 mg/dose (4 mg/3 mL) pen injector 1 mg subcut QWEEK 30 Days Qty: 3.75 RF: 3 tizanidine 4 mg capsule 4 mg PO BEDTIME PRN (Reason: muscle spasticity) Qty: 30 RF: 0 potassium chloride 10 mEq tablet extended release 10 meq PO BID Qty: 180 RF: 3 nitroglycerin 0.4 mg tablet, sublingual 0.4 mg sublingual Q5M PRN (Reason: for angina) 90 Days Qty: 25 RF: 0 meclizine 12.5 mg tablet 12.5 mg PO DAILY PRN (Reason: for motion sickness) Qty: 30 RF: 5 Spiriva with HandiHaler 18 mcg capsule, w/inhalation device 1 cap inhalation DAILY Qty: 90 RF: 3 albuterol sulfate 90 mcg/actuation HFA aerosol inhaler 2 puff PO Q4H PRN (Reason: for respiratory distress) Qty: 8.5 RF: 0 albuterol sulfate 2.5 mg /3 mL (0.083 %) solution for nebulization 2.5 mg inhalation Q6H PRN (Reason: shortness of breath or wheezing) Qty: 450 RF: 1 ipratropium-albuterol 0.5 mg-3 mg(2.5 mg base)/3 mL solution for nebulization 3 ml inhalation Q4-6H PRN (Reason: wheezing.DYSPNEA) 30 Days Qty: 180 RF: 3 pdfnnuze-ywjqiajda-IV 3.5-10,000-1 mg/mL-unit/mL-% drops,suspension 4 drp otic (ear) left Q8H 5 Days Qty: 10 RF: 0 ferrous sulfate 325 mg (65 mg iron) Tablet 325 mg PO DAILY RF: 0 aspirin 81 mg Tablet 81 mg PO DAILY RF: 0 cholecalciferol (vitamin D3) [Vitamin D3] 25 mcg (1,000 unit) Capsule 25 mcg PO DAILY RF: 0 dicyclomine 10 mg Capsule 10 mg PO QID PRN (Reason: Abdominal Pain) RF: 0 (DME) hospital bed See Rx Instructions .Route .MEDSUPPLY Qty: 1 RF: 0 sucralfate 100 mg/mL suspension 1 g PO BEDTIME RF: 0
--- NOTE | 2021-02-19 11:20 | ECG_ITS ---
Test Reason : CP Blood Pressure : / mmHG Vent. Rate : 108 BPM Atrial Rate : 108 BPM P-R Int : 196 ms QRS Dur : 090 ms QT Int : 342 ms P-R-T Axes : 101 060 118 degrees QTc Int : 458 ms Sinus tachycardia with Premature atrial complexes ST & T wave abnormality, consider lateral ischemia Abnormal ECG When compared with ECG of 01-DEC-2019 11:04, Premature atrial complexes are now Present T wave inversion now evident in Lateral leads Referred By: Samantha Cheek Electronically Signed By:TATO PERDOMO MD
[2021-02-19 12:37] LABS: Basophils Percent Auto 0.3 % (0-2); Eosinophils Absolute Auto 0.1 X10*3/uL (0.0-0.4); Eosinophils Percent Auto 0.6 % (0-4); Hematocrit 40.3 % (37.0-47.0); Hemoglobin 12.8 g/dl (12.0-16.0); Imm Gran Abs Auto 0.06 X10*3/uL (0.00-0.03); Imm Gran Pct Auto 0.8 % (0.0-0.4); Lymphocytes Absolute Auto 1.3 X10*3/uL (1.2-4.9); Lymphocytes Percent Auto 16.5 % (20-40); MANUAL DIFF FLAG SCAN; Mean Corpuscular HGB Conc 31.8 g/dl (31.0-35.0); Mean Corpuscular Hemoglobin 28.1 pg (27.0-33.0); Mean Corpuscular Volume 88.6 fL (80.0-98.0); Mean Platelet Volume 9.7 fL (9.4-12.3); Monocytes Absolute Auto 1.1 X10*3/uL (0.1-1.2); Monocytes Percent Auto 13.4 % (2-11); Neutrophils Absolute Auto 5.3 x10*3/uL (2.0-8.3); Neutrophils Percent Auto 68.4 % (45-73); PLT CLUMP 1; Red Blood Count 4.55 X10*6/uL (4.20-5.50); Red Cell Distribution Width 13.8 % (11.0-16.0); SCAN SMEAR FLAG 1
[2021-02-19 12:41] LABS: COVID-19 Test Negative (Negative)
[2021-02-19 12:46] LABS: White Blood Count 7.8 X10*3/uL (4.8-10.8)
[2021-02-19 12:47] LABS: Platelet Count 221 X10*3/uL (160-400)
[2021-02-19 12:48] LABS: SLIDE REVIEW VERIFIED; Troponin-I High Sensitivity 30.7 ng/L (<3.5-17.0)
[2021-02-19 12:49] LABS: B Type Natriuretic Peptide 90 pg/mL (<100)
[2021-02-19 12:56] LABS: Alanine Aminotransferase 14 U/L (0-31); Albumin Level 3.8 g/dL (3.5-5.0); Alkaline Phosphatase 162 U/L (39-117); Anion Gap 16 (12-20); Aspartate Amino Transferase 24 U/L (5-31); Bilirubin Total 0.7 mg/dL (0.0-1.0); Blood Urea Nitrogen 16 mg/dL (9-16); Calcium 8.7 mg/dL (8.4-10.2); Carbon Dioxide 34 mmol/L (22-29); Chloride 95 mmol/L (96-108); Creatinine Clr Calc Pharmacy 36.4; Estimated Glomerular Filt Rate 40; Glucose Random 96 mg/dL (60-115); Magnesium 1.7 mg/dL (1.6-2.6); Potassium 3.3 mmol/L (3.3-5.1); Sodium 142 mmol/L (135-145); Total Protein 6.9 g/dL (6.5-8.0)
[2021-02-19] MEDS: iohexoL 350 MG/ML 100 ML INFUS..BTL IV (13:59)
--- NOTE | 2021-02-19 15:43 | PC.NURSE ---
Patient was change and reposition in bed .
--- NOTE | 2021-02-19 15:58 | PC.NURSE ---
PATIENT WAS ASSISTED ON BED MARSHALL BY THIS PCT .
[2021-02-19 16:06] LABS: Appearance Urine CLEAR; Color Urine YELLOW; Glucose Urine UA NEG (NEG); Leukocyte Esterase Urine NEG (NEG); Nitrite Urine NEG (NEG); UACC Culture Trigger NO; Urine Blood TRACE (NEG); Urine Ketones NEG (NEG); Urine Protein 1+ MG/DL (NEG-TRACE)
[2021-02-19 16:13] LABS: RBC Urine 0 /HPF (0); Squamous Epithelial Cell Urine TRACE /LPF; WBC Urine 0-2 /HPF (0-4)
[2021-02-19 16:25] LABS: Troponin-I High Sensitivity 34.1 ng/L (<3.5-17.0)
[2021-02-19] MEDS: Albuterol/Iprat 2.5/0.5MG 3 ML AMPUL.NEB INHALE ×2 (16:40→18:15)
--- NOTE | 2021-02-19 18:36 | PC.NURSE ---
patient went for a short walk ,during walking patient stated she felt dizzy, came back to bed 02 stat drop to 86 % on 2 l ,also heart rate went up to 125 VENECIA Almendarez and rn rita peng is aware .
--- NOTE | 2021-02-19 20:21 | P.HPHOSP_ITS ---
History of Present Illness Date of Service: 02/19/21 Chief Complaint: sob 80F presented with SOB. patient has a PMH including chronic hypxic respiratory failure on 2L home o2 due to severe copd, DM (most recent a1c 5.6), paroxysmal atrial fibrillation on eliquis, chronic systolic and diastolic chf, CAD. she is complaining of 4-5 worsening shortness of breath, worse on exertion, associated with cough with green sputum, fever of 102 at home, chills, myalgias. she denies sick contacts, only leaves house to see doctors. in ED found to be hypoxic to 85% on ambulation on baseline 2L, CTA showed no PE, or lung opacities, did have mildly enlarged precarinal lymph node. Review of Systems Review of Systems: Constitutional: fever, Chills Eyes: denies blurry vision ENT: denies sore throat CVS: denies chest pain Respiratory: dyspnea GI: no abdominal pain : denies dysuria MSK: denies neck pain Skin: denies rash Neuro: denies specific motor weakness Psych: denies suicidal ideation Endocrine: denies heat/cold intolerance Hematologic: denies easy bleeding Allergy: denies hives [facility] Medical History Abdominal aortic aneurysm CAD (coronary artery disease) Carpal tunnel syndrome Chronic pain syndrome Clostridium difficile colitis Congestive heart failure COPD (chronic obstructive pulmonary disease) Coronary artery disease 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 Diarrhea Diverticulitis DVT (deep venous thrombosis) Fibromyalgia GERD (gastroesophageal reflux disease) History of spinal stenosis HTN (hypertension) Hypercholesterolemia Hypothyroid Low back pain Lower extremity weakness Nasal congestion Obesity (BMI 30-39.9) Obstructive sleep apnea Otitis externa Paroxysmal atrial fibrillation Pernicious anemia Respiratory failure with hypoxia and hypercapnia Restrictive lung disease Spondylosis of lumbar spine Family History Father Hypertension CVD (cardiovascular disease) Mother Colon cancer Sister Leukemia Sister Colon cancer Son Lung cancer Colon polyps Surgical History H/O angioplasty H/O cardiac catheterization History of arthroplasty of left shoulder Hx of appendectomy Hx of cholecystectomy S/P BREANN-BSO (total abdominal hysterectomy and bilateral salpingo-oophorectomy) Social History Housing: Apartment Do you presently have visiting nurse or other home services: Yes Alcohol intake: current Alcohol intake frequency: holidays/special occasions only Patient Tobacco Use Status: Former Tobacco user Tobacco use type: Cigarette Years Smoked: stopped 2009 e-Cigarette/Vaping Use: Never Used Second Hand Smoke Exposure: No Advance Directives: No Advance Directives Information Provided: No service: No Current occupational status: retired Current occupational exposures/hazards: No Meds Allergies Allergy/AdvReac Type Severity Reaction Status Date / Time morphine [MORPHINE] Allergy Unknown RASH Verified 01/23/21 10:38 pregabalin [From LYRICA] Allergy Unknown NAUSEA, Verified 01/23/21 10:38 felt high on drugs Active Medications: Current Medications Apixaban (Apixaban 5 Mg Tablet) 5 mg PO BID [facility] Ascorbic Acid (Ascorbic Acid 500 Mg Tablet) 500 mg PO BID [facility] Aspirin (Aspirin 81 Mg Tab.Chew) 81 mg PO DAILY [facility] Atorvastatin Calcium (Atorvastatin Calcium 40 Mg Tablet) 40 mg PO DAILY [facility] Carvedilol (Carvedilol 25 Mg Tablet) 25 mg PO BID [facility]; Protocol Dextrose (Dextrose 50 % 25 Gm/50 Ml Vial) 25 gm IVPUSH Q15M PRN; Protocol PRN Reason: per Hypoglycemia Standing Ord. Dicyclomine HCl (Dicyclomine Hcl 10 Mg Capsule) 10 mg PO BID PRN PRN Reason: Abdominal Pain Docusate Sodium (Docusate Sodium 100 Mg Capsule) 100 mg PO BID PRN PRN Reason: consti Duloxetine HCl (Duloxetine Hcl 30 Mg Capsule.) 30 mg PO DAILY [facility] Ezetimibe (Ezetimibe 10 Mg Tablet) 10 mg PO DAILY [facility] Ferrous Sulfate (Ferrous Sulfate 324 Mg Tablet.) 324 mg PO DAILY [facility] Fluticasone/Vilanterol (Fluticasone/Vilanterol 200/25 Blst.W.Dev) 1 puff INHALE RDAILY [facility] Furosemide (Furosemide 40 Mg Tablet) 40 mg PO BIDWM [facility]; Protocol Glucose (Glucose Gel 15 Gm Gel..Gram.) 15 gm PO Q15M PRN; Protocol PRN Reason: per Hypoglycemia Standing Ord. Insulin Human Lispro (Insulin Lispro 100 Unit/Ml 3 Ml Vial) 0 unit SUBCUT QIDACHS [facility]; Protocol Levothyroxine Sodium (Levothyroxine Sodium 100 Mcg Tablet) 100 mcg PO DAILY@0600 [facility] Losartan Potassium (Losartan Potassium 25 Mg Tablet) 75 mg PO DAILY [facility]; Protocol Meclizine HCl (Meclizine Hcl 12.5 Mg Tablet) 12.5 mg PO DAILY PRN PRN Reason: for motion sickness Nitroglycerin (Nitroglycerin 0.4 Mg Tab.Subl) 0.4 mg SUBLINGUAL Q5M PRN PRN Reason: for angina Non-Formulary Medication (Dexlansoprazole [Dexilant]) 30 mg PO DAILY [facility] Potassium Chloride (Potassium Chloride Er 10 Meq Capsule.Er) 10 meq PO BID [facility] Sucralfate (Sucralfate Oral Suspension 1 Gm/10 Ml Oral.Susp) 1 gm PO BEDTIME [facility] Vitamin D (Cholecalciferol (Vitamin D3) 25 Mcg Tablet) 25 mcg PO DAILY [facility] Home Medications Medication Instructions Recorded Confirmed Last Taken Type sucralfate 100 mg/mL oral 1 g PO BEDTIME 11/21/19 02/19/21 Unknown History suspension aspirin 81 mg tablet 81 mg PO DAILY 12/01/19 02/19/21 Unknown History cholecalciferol (vitamin D3) 25 25 mcg PO DAILY 12/01/19 02/19/21 Unknown History mcg (1,000 unit) capsule (Vitamin D3) dicyclomine 10 mg capsule 10 mg PO BID PRN 12/01/19 02/19/21 Unknown History ferrous sulfate 325 mg (65 mg 325 mg PO DAILY 12/01/19 02/19/21 Unknown History iron) tablet Physical Exam Vital Signs and Narrative: Vital Signs: Last Vital Signs Temp 97.5 F 02/19/21 18:31 Pulse 101 H 02/19/21 20:00 Resp 16 02/19/21 20:00 BP 114/67 02/19/21 20:00 Pulse Ox 94 02/19/21 20:03 Oxygen Flow Rate 2 02/19/21 20:03 BMI result Body Mass Index 38.1 General: dyspneic, tachypneic HEENT: atraumatic Neck: normal to visual inspection CVS: S1, S2, RRR Resp: rhonchi, accessory muscles used Chest: non tender GI: soft, non tender, non distended : no CVA tenderness Skin: no rashes Extremities: no edema Neuro: Oriented X3, grossly intact Psych: cooperative Results Labs CBC and Chem 7: 01/02/22 12:18 02/19/21 12:18 Labs: Laboratory Results - last 24 hr 02/19/21 02/19/21 02/19/21 12:18 12:18 12:18 MCV 88.6 MCH 28.1 MCHC 31.8 RDW 13.8 Plt Count 221 MPV 9.7 Immature Gran % (Auto) 0.8 H Neut % (Auto) 68.4 Lymph % (Auto) 16.5 L [place] % (Auto) 13.4 H Eos % (Auto) 0.6 Baso % (Auto) 0.3 Lymph # (Auto) 1.3 [place] # (Auto) 1.1 Eos # (Auto) 0.1 Baso # (Auto) 0.0 Abs Immat Gran (auto) 0.06 H Absolute Neuts (auto) 5.3 Absolute Nucleated RBC 0.000 Nucleated RBC % (auto) 0.0 Smear Tech's Comments VERIFIED Anion Gap 16 Estim Creat Clear Calc 36.4 Estimated GFR 40 Random Glucose 96 Calcium 8.7 D Magnesium 1.7 Total Bilirubin 0.7 AST 24 D ALT 14 Alkaline Phosphatase 162 H Troponin I High Sens 30.7 H B-Natriuretic Peptide Total Protein 6.9 Albumin 3.8 Urine Color Urine Appearance Urine pH Ur Specific [place] Urine Protein Urine Glucose (UA) Urine Ketones Urine Blood Urine Nitrite Ur Leukocyte Esterase Urine RBC Urine WBC Ur Squamous Epith Cells Urine Bacteria COVID-19 ([facility]) COVID-19 Clin Com 02/19/21 02/19/21 02/19/21 12:18 12:18 15:57 MCV MCH MCHC RDW Plt Count MPV Immature Gran % (Auto) Neut % (Auto) Lymph % (Auto) [place] % (Auto) Eos % (Auto) Baso % (Auto) Lymph # (Auto) [place] # (Auto) Eos # (Auto) Baso # (Auto) Abs Immat Gran (auto) Absolute Neuts (auto) Absolute Nucleated RBC Nucleated RBC % (auto) Smear Tech's Comments Anion Gap Estim Creat Clear Calc Estimated GFR Random Glucose Calcium Magnesium Total Bilirubin AST ALT Alkaline Phosphatase Troponin I High Sens 34.1 H B-Natriuretic Peptide 90 Total Protein Albumin Urine Color Urine Appearance Urine pH Ur Specific [place] Urine Protein Urine Glucose (UA) Urine Ketones Urine Blood Urine Nitrite Ur Leukocyte Esterase Urine RBC Urine WBC Ur Squamous Epith Cells Urine Bacteria COVID-19 ([facility]) Negative COVID-19 Clin Com See Note 02/19/21 15:57 MCV MCH MCHC RDW Plt Count MPV Immature Gran % (Auto) Neut % (Auto) Lymph % (Auto) [place] % (Auto) Eos % (Auto) Baso % (Auto) Lymph # (Auto) [place] # (Auto) Eos # (Auto) Baso # (Auto) Abs Immat Gran (auto) Absolute Neuts (auto) Absolute Nucleated RBC Nucleated RBC % (auto) Smear Tech's Comments Anion Gap Estim Creat Clear Calc Estimated GFR Random Glucose Calcium Magnesium Total Bilirubin AST ALT Alkaline Phosphatase Troponin I High Sens B-Natriuretic Peptide Total Protein Albumin Urine Color YELLOW Urine Appearance CLEAR Urine pH 6.0 Ur Specific [place] 1.010 Urine Protein 1+ H Urine Glucose (UA) NEG Urine Ketones NEG Urine Blood TRACE Urine Nitrite NEG Ur Leukocyte Esterase NEG Urine RBC 0 Urine WBC 0-2 Ur Squamous Epith Cells TRACE Urine Bacteria NONE COVID-19 ([facility]) COVID-19 Clin Com Imaging Radiologist's Impressions: Impressions Chest X-Ray 02/19/21 11:39 IMPRESSION: Minimal left midlung atelectasis versus scarring. No acute cardiopulmonary process. Chest CTA 02/19/21 14:10 IMPRESSION: 1. No evidence of pulmonary embolism 2. Mildly enlarged precarinal lymph node in the mediastinum. VTE: negative Assessment and Plan (1) COPD exacerbation: Status: Acute 80F presented with sob acute on chronic hypoxic respiratory failure due to severe copd with acute decompensation due to possible underlying viral infection solumedrol, duonebs, azithro check resp viral panel paroxysmal afib eliquis, coreg chronic systolic and diastolic chf appears euvolemic continue coreg, lasix, losartan DM last a1c 5.6 hold semaglutide insulin sliding scale, monitor poc hypothyroid synthroid CAD asa, statin eliquis obesity weight loss chronic iron defeciency anemia ferrous sulfate dvt prophylaxis - on eliquis for afib full code Quality Stroke Does the patient have a stroke diagnosis?: No VTE Prior VTE?: No VTE Risk Level:: Medical - moderate - high VTE Device Contraindication: Treatment Not Indicated VTE Drug Contraindication: N/A - Med Ordered
[2021-02-19 21:32] LABS: Glucose, Whole Blood 91 mg/dL (60-115)
[2021-02-19] MEDS: Azithromycin 500 MG TABLET PO (21:36)
[2021-02-19] MEDS: Apixaban 5 MG TABLET PO (21:36)
[2021-02-19] MEDS: carvediloL 25 MG TABLET PO (21:36)
[2021-02-19] MEDS: Ascorbic Acid 500 MG TABLET PO (21:36)
[2021-02-19] MEDS: methylPREDNISolone Sod Succ 125 MG/2 ML VIAL 60 MG IVPUSH (21:37)
[2021-02-19] MEDS: Sucralfate Oral Suspension 1 GM/10 ML ORAL.SUSP PO (21:37)
[2021-02-19 22:05] LABS: Glucose, Whole Blood 90 mg/dL (60-115)
[2021-02-19 23:35] LABS: Adenovirus PCR Not Detected (Not Detect.); Bordetella parapertussis PCR Not Detected (Not Detect.); Bordetella pertussis PCR Not Detected (Not Detect.); Chlamydia pneumoniae PCR Not Detected (Not Detect.); Coronavirus 229E PCR Not Detected (Not Detect.); Coronavirus HKU1 PCR Not Detected (Not Detect.); Coronavirus NL63 PCR Not Detected (Not Detect.); Coronavirus OC43 PCR Not Detected (Not Detect.); Human metapneumovirus PCR Not Detected (Not Detect.); Influenza A PCR Not Detected (Not Detect.); Influenza B PCR Not Detected (Not Detect.); Mycoplasma pneumoniae PCR Not Detected (Not Detect.); Parainfluenza 1 PCR Not Detected (Not Detect.); Parainfluenza 2 PCR Not Detected (Not Detect.); Parainfluenza 3 PCR Not Detected (Not Detect.); Parainfluenza 4 PCR Not Detected (Not Detect.); Rhino/Enterovirus PCR Not Detected (Not Detect.); SARS-CoV-2 PCR Not Detected (Not Detect.)
[2021-02-19] MEDS: 0.9 % Sodium Chloride Flush 3 ML SYRINGE IVFLUSH (23:48)
[2021-02-20] VITALS (11 sets, daily range): BP systolic 90–138; BP diastolic 49–74; PULSE 76–94; RESP 17–20; TEMP 36–36.6; O2SAT 90–99
[2021-02-20 05:54] LABS: Hematocrit 39.6 % (37.0-47.0); Hemoglobin 12.4 g/dl (12.0-16.0); Mean Corpuscular HGB Conc 31.3 g/dl (31.0-35.0); Mean Corpuscular Hemoglobin 28.6 pg (27.0-33.0); Mean Corpuscular Volume 91.5 fL (80.0-98.0); Mean Platelet Volume 9.9 fL (9.4-12.3); Platelet Count 201 X10*3/uL (160-400); Red Blood Count 4.33 X10*6/uL (4.20-5.50); Red Cell Distribution Width 13.7 % (11.0-16.0); White Blood Count 7.7 X10*3/uL (4.8-10.8)
[2021-02-20] MEDS: Levothyroxine Sodium 100 MCG TABLET PO (06:09)
[2021-02-20 06:17] LABS: Anion Gap 15 (12-20); Blood Urea Nitrogen 20 mg/dL (9-16); Calcium 8.8 mg/dL (8.4-10.2); Carbon Dioxide 33 mmol/L (22-29); Chloride 97 mmol/L (96-108); Creatinine Clr Calc Pharmacy 33.7; Estimated Glomerular Filt Rate 37; Glucose Fasting 108 mg/dL (60-99); Magnesium 1.9 mg/dL (1.6-2.6); Potassium 3.4 mmol/L (3.3-5.1); Sodium 142 mmol/L (135-145)
[2021-02-20 07:54] LABS: Glucose, Whole Blood 87 mg/dL (60-115)
[2021-02-20] MEDS: Fluticasone/Vilanterol 200/25 BLST.W.DEV 1 PUFF INHALE (08:08)
[2021-02-20] MEDS: Albuterol/Iprat 2.5/0.5MG 3 ML AMPUL.NEB INHALE ×3 (08:08→20:10)
[2021-02-20 08:20] LABS: RSV PCR Detected (Not Detect.)
[2021-02-20] MEDS: 0.9 % Sodium Chloride Flush 3 ML SYRINGE IVFLUSH ×3 (08:58→23:10)
[2021-02-20] MEDS: Cholecalciferol (Vitamin D3) 25 MCG TABLET PO (08:58)
[2021-02-20] MEDS: Ascorbic Acid 500 MG TABLET PO ×2 (08:58→21:36)
[2021-02-20] MEDS: Ferrous Sulfate 324 MG TABLET.DR PO (08:59)
[2021-02-20] MEDS: Furosemide 40 MG TABLET PO ×2 (08:59→17:51)
[2021-02-20] MEDS: carvediloL 25 MG TABLET PO ×2 (08:59→21:37)
[2021-02-20] MEDS: Atorvastatin Calcium 40 MG TABLET PO (08:59)
[2021-02-20] MEDS: Apixaban 5 MG TABLET PO ×2 (08:59→21:36)
[2021-02-20] MEDS: Aspirin 81 MG TAB.CHEW PO (08:59)
[2021-02-20] MEDS: DULoxetine HCl 30 MG CAPSULE.DR PO (08:59)
[2021-02-20] MEDS: Ezetimibe 10 MG TABLET PO (08:59)
[2021-02-20] MEDS: Losartan Potassium 25 MG TABLET 75 MG PO (09:00)
[2021-02-20] MEDS: methylPREDNISolone Sod Succ 125 MG/2 ML VIAL 60 MG IVPUSH ×2 (09:03→21:44)
--- NOTE | 2021-02-20 10:53 | HO.PM.IMPN ---
Subjective Subjective Date of Service: 02/20/21 Interval History: acute on chronic hypoxic respiratory failure due to severe copd Review of Systems sob similar to last night Has some cough dry Denies any chest pain or abdominal pain or fevers or chills Physical Exam Vital Signs: Vital Signs: Last Vital Signs Temp 97.7 F 02/20/21 07:55 Pulse 93 02/20/21 09:00 Resp 20 02/20/21 08:11 BP 109/53 L 02/20/21 09:00 Pulse Ox 94 02/20/21 07:55 Oxygen Flow Rate 2 02/19/21 20:03 BMI result Body Mass Index 38.1 Appearance: Alert.? Oriented X3.? not in distress.? Eyes: Pupils equal, round and reactive to light.? Sclera nonicteric.? ENT: Pharynx normal.? Moist mucous membranes. cvs: rrr, [id number] , no murmur res: air entry seems similar, has rhonchii abd: no rebound or guarding ,nt, bs present. ext pulses present , no cyanosis. neuro: axo3 , nonfocal. Objective Data Active Medications Acetaminophen (Acetaminophen 325 Mg Tablet) 650 mg PO Q6H PRN PRN Reason: Pain, Mild (Pain Scale 1-3) Albuterol/Ipratropium (Albuterol/Iprat 2.5/0.5mg 3 Ml Ampul.Neb) 3 ml INHALE RQ4H WHILE AWAKE [facility] Last Admin: 02/20/21 08:08 Dose: 3 ml Documented by: CHINA Apixaban (Apixaban 5 Mg Tablet) 5 mg PO BID [facility] Last Admin: 02/20/21 08:59 Dose: 5 mg Documented by: MARVIN Ascorbic Acid (Ascorbic Acid 500 Mg Tablet) 500 mg PO BID [facility] Last Admin: 02/20/21 08:58 Dose: 500 mg Documented by: MARVIN Aspirin (Aspirin 81 Mg Tab.Chew) 81 mg PO DAILY [facility] Last Admin: 02/20/21 08:59 Dose: 81 mg Documented by: MARVIN Atorvastatin Calcium (Atorvastatin Calcium 40 Mg Tablet) 40 mg PO DAILY [facility] Last Admin: 02/20/21 08:59 Dose: 40 mg Documented by: MARVIN Azithromycin (Azithromycin 500 Mg Tablet) 500 mg PO Q24H [facility] Last Admin: 02/19/21 21:36 Dose: 500 mg Documented by: OCTAVIO Carvedilol (Carvedilol 25 Mg Tablet) 25 mg PO BID [facility]; Protocol Last Admin: 02/20/21 08:59 Dose: 25 mg Documented by: MARVIN Dextrose (Dextrose 50 % 25 Gm/50 Ml Vial) 25 gm IVPUSH Q15M PRN; Protocol PRN Reason: per Hypoglycemia Standing Ord. Dicyclomine HCl (Dicyclomine Hcl 10 Mg Capsule) 10 mg PO BID PRN PRN Reason: Abdominal Pain Docusate Sodium (Docusate Sodium 100 Mg Capsule) 100 mg PO BID PRN PRN Reason: consti Duloxetine HCl (Duloxetine Hcl 30 Mg Capsule.) 30 mg PO DAILY [facility] Last Admin: 02/20/21 08:59 Dose: 30 mg Documented by: MARVIN Ezetimibe (Ezetimibe 10 Mg Tablet) 10 mg PO DAILY [facility] Last Admin: 02/20/21 08:59 Dose: 10 mg Documented by: MARVIN Ferrous Sulfate (Ferrous Sulfate 324 Mg Tablet.) 324 mg PO DAILY [facility] Last Admin: 02/20/21 08:59 Dose: 324 mg Documented by: MARVIN Fluticasone/Vilanterol (Fluticasone/Vilanterol 200/25 Blst.W.Dev) 1 puff INHALE RDAILY [facility] Last Admin: 02/20/21 08:08 Dose: 1 puff Documented by: CHINA Furosemide (Furosemide 40 Mg Tablet) 40 mg PO BIDWM [facility]; Protocol Last Admin: 02/20/21 08:59 Dose: 40 mg Documented by: MARVIN Glucose (Glucose Gel 15 Gm Gel..Gram.) 15 gm PO Q15M PRN; Protocol PRN Reason: per Hypoglycemia Standing Ord. Insulin Human Lispro (Insulin Lispro 100 Unit/Ml 3 Ml Vial) 0 unit SUBCUT QIDACHS [facility]; Protocol Last Admin: 02/20/21 07:52 Dose: Not Given Documented by: MARVIN Non-Admin Reason: No Insulin Coverage Levothyroxine Sodium (Levothyroxine Sodium 100 Mcg Tablet) 100 mcg PO DAILY@0600 [facility] Last Admin: 02/20/21 06:09 Dose: 100 mcg Documented by: SOUMYA Losartan Potassium (Losartan Potassium 25 Mg Tablet) 75 mg PO DAILY [facility]; Protocol Last Admin: 02/20/21 09:00 Dose: 75 mg Documented by: MARVIN Meclizine HCl (Meclizine Hcl 12.5 Mg Tablet) 12.5 mg PO DAILY PRN PRN Reason: for motion sickness Methylprednisolone Sodium Succinate (Methylprednisolone Sod Succ 125 Mg/2 Ml Vial) 60 mg IVPUSH Q12H [facility] Last Admin: 02/20/21 09:03 Dose: 60 mg Documented by: MARVIN Nitroglycerin (Nitroglycerin 0.4 Mg Tab.Subl) 0.4 mg SUBLINGUAL Q5M PRN PRN Reason: for angina Omeprazole (Omeprazole 20 Mg Capsule.Dr) 20 mg PO DAILY@0630 [facility] Potassium Chloride (Potassium Chloride Er 10 Meq Capsule.Er) 10 meq PO BID [facility] Last Admin: 02/20/21 08:59 Dose: 10 meq Documented by: MARVIN Sodium Chloride (0.9 % Sodium Chloride Flush 3 Ml Syringe) 3 ml IVFLUSH QSHIFT [facility] Last Admin: 02/20/21 08:58 Dose: 3 ml Documented by: MARVIN Sodium Chloride (Sodium Chloride 0.65 % Nasal 44 Ml Sprbtl) 1 spray NOSTRIL-B Q1H PRN PRN Reason: dry nose Sucralfate (Sucralfate Oral Suspension 1 Gm/10 Ml Oral.Susp) 1 gm PO BEDTIME [facility] Last Admin: 02/19/21 21:37 Dose: 1 gm Documented by: OCTAVIO Vitamin D (Cholecalciferol (Vitamin D3) 25 Mcg Tablet) 25 mcg PO DAILY [facility] Last Admin: 02/20/21 08:58 Dose: 25 mcg Documented by: MARVIN Labs CBC & Chem 7: 02/20/21 05:41 02/20/21 05:40 Labs: Laboratory Results - last 24 hr 02/19/21 02/19/21 02/19/21 12:18 12:18 12:18 MCV 88.6 MCH 28.1 MCHC 31.8 RDW 13.8 Plt Count 221 MPV 9.7 Immature Gran % (Auto) 0.8 H Neut % (Auto) 68.4 Lymph % (Auto) 16.5 L [place] % (Auto) 13.4 H Eos % (Auto) 0.6 Baso % (Auto) 0.3 Lymph # (Auto) 1.3 [place] # (Auto) 1.1 Eos # (Auto) 0.1 Baso # (Auto) 0.0 Abs Immat Gran (auto) 0.06 H Absolute Neuts (auto) 5.3 Absolute Nucleated RBC 0.000 Nucleated RBC % (auto) 0.0 Smear Tech's Comments VERIFIED Anion Gap 16 Estim Creat Clear Calc 36.4 Estimated GFR 40 POC Glucose Random Glucose 96 Fasting Glucose Calcium 8.7 D Magnesium 1.7 Total Bilirubin 0.7 AST 24 D ALT 14 Alkaline Phosphatase 162 H Troponin I High Sens 30.7 H B-Natriuretic Peptide Total Protein 6.9 Albumin 3.8 Urine Color Urine Appearance Urine pH Ur Specific [place] Urine Protein Urine Glucose (UA) Urine Ketones Urine Blood Urine Nitrite Ur Leukocyte Esterase Urine RBC Urine WBC Ur Squamous Epith Cells Urine Bacteria Respiratory Panel Rod Adenovirus (Rapid PCR) B.pert (TEM-PCR) B.parapertussis DNA PCR C. pneumoniae DNA (PCR) Coronavirus OC43 (PCR) Coronavirus HKU1 (PCR) Coronavirus 229E (PCR) COVID-19 ([facility]) COVID-19 Clin Com Coronavirus NL63 (PCR) Human Metapneumovir PCR Influenza A (RT-PCR) Influenza B (RT-PCR) M. pneumoniae (PCR) Parainfluenza 1 (PCR) Parainfluenza 2 (PCR) Parainfluenza 3 (PCR) Parainfluenza 4 (PCR) RSV (PCR) Entero/Rhino (PCR) SARS-CoV-2 RNA (RT-PCR) 02/19/21 02/19/21 02/19/21 12:18 12:18 15:57 MCV MCH MCHC RDW Plt Count MPV Immature Gran % (Auto) Neut % (Auto) Lymph % (Auto) [place] % (Auto) Eos % (Auto) Baso % (Auto) Lymph # (Auto) [place] # (Auto) Eos # (Auto) Baso # (Auto) Abs Immat Gran (auto) Absolute Neuts (auto) Absolute Nucleated RBC Nucleated RBC % (auto) Smear Tech's Comments Anion Gap Estim Creat Clear Calc Estimated GFR POC Glucose Random Glucose Fasting Glucose Calcium Magnesium Total Bilirubin AST ALT Alkaline Phosphatase Troponin I High Sens 34.1 H B-Natriuretic Peptide 90 Total Protein Albumin Urine Color Urine Appearance Urine pH Ur Specific [place] Urine Protein Urine Glucose (UA) Urine Ketones Urine Blood Urine Nitrite Ur Leukocyte Esterase Urine RBC Urine WBC Ur Squamous Epith Cells Urine Bacteria Respiratory Panel Rod Adenovirus (Rapid PCR) B.pert (TEM-PCR) B.parapertussis DNA PCR C. pneumoniae DNA (PCR) Coronavirus OC43 (PCR) Coronavirus HKU1 (PCR) Coronavirus 229E (PCR) COVID-19 ([facility]) Negative COVID-19 Clin Com See Note Coronavirus NL63 (PCR) Human Metapneumovir PCR Influenza A (RT-PCR) Influenza B (RT-PCR) M. pneumoniae (PCR) Parainfluenza 1 (PCR) Parainfluenza 2 (PCR) Parainfluenza 3 (PCR) Parainfluenza 4 (PCR) RSV (PCR) Entero/Rhino (PCR) SARS-CoV-2 RNA (RT-PCR) 02/19/21 02/19/21 02/19/21 15:57 21:28 22:00 MCV MCH MCHC RDW Plt Count MPV Immature Gran % (Auto) Neut % (Auto) Lymph % (Auto) [place] % (Auto) Eos % (Auto) Baso % (Auto) Lymph # (Auto) [place] # (Auto) Eos # (Auto) Baso # (Auto) Abs Immat Gran (auto) Absolute Neuts (auto) Absolute Nucleated RBC Nucleated RBC % (auto) Smear Tech's Comments Anion Gap Estim Creat Clear Calc Estimated GFR POC Glucose 91 90 Random Glucose Fasting Glucose Calcium Magnesium Total Bilirubin AST ALT Alkaline Phosphatase Troponin I High Sens B-Natriuretic Peptide Total Protein Albumin Urine Color YELLOW Urine Appearance CLEAR Urine pH 6.0 Ur Specific [place] 1.010 Urine Protein 1+ H Urine Glucose (UA) NEG Urine Ketones NEG Urine Blood TRACE Urine Nitrite NEG Ur Leukocyte Esterase NEG Urine RBC 0 Urine WBC 0-2 Ur Squamous Epith Cells TRACE Urine Bacteria NONE Respiratory Panel Rod Adenovirus (Rapid PCR) B.pert (TEM-PCR) B.parapertussis DNA PCR C. pneumoniae DNA (PCR) Coronavirus OC43 (PCR) Coronavirus HKU1 (PCR) Coronavirus 229E (PCR) COVID-19 ([facility]) COVID-19 Clin Com Coronavirus NL63 (PCR) Human Metapneumovir PCR Influenza A (RT-PCR) Influenza B (RT-PCR) M. pneumoniae (PCR) Parainfluenza 1 (PCR) Parainfluenza 2 (PCR) Parainfluenza 3 (PCR) Parainfluenza 4 (PCR) RSV (PCR) Entero/Rhino (PCR) SARS-CoV-2 RNA (RT-PCR) 02/19/21 02/20/21 02/20/21 23:20 05:40 05:41 MCV 91.5 MCH 28.6 MCHC 31.3 RDW 13.7 Plt Count 201 MPV 9.9 Immature Gran % (Auto) Neut % (Auto) Lymph % (Auto) [place] % (Auto) Eos % (Auto) Baso % (Auto) Lymph # (Auto) [place] # (Auto) Eos # (Auto) Baso # (Auto) Abs Immat Gran (auto) Absolute Neuts (auto) Absolute Nucleated RBC 0.000 Nucleated RBC % (auto) 0.0 Smear Tech's Comments Anion Gap 15 Estim Creat Clear Calc 33.7 Estimated GFR 37 POC Glucose Random Glucose Fasting Glucose 108 H Calcium 8.8 Magnesium 1.9 Total Bilirubin AST ALT Alkaline Phosphatase Troponin I High Sens B-Natriuretic Peptide Total Protein Albumin Urine Color Urine Appearance Urine pH Ur Specific [place] Urine Protein Urine Glucose (UA) Urine Ketones Urine Blood Urine Nitrite Ur Leukocyte Esterase Urine RBC Urine WBC Ur Squamous Epith Cells Urine Bacteria Respiratory Panel Rod See Note Adenovirus (Rapid PCR) Not Detected B.pert (TEM-PCR) Not Detected B.parapertussis DNA PCR Not Detected C. pneumoniae DNA (PCR) Not Detected Coronavirus OC43 (PCR) Not Detected Coronavirus HKU1 (PCR) Not Detected Coronavirus 229E (PCR) Not Detected COVID-19 ([facility]) COVID-19 Clin Com Coronavirus NL63 (PCR) Not Detected Human Metapneumovir PCR Not Detected Influenza A (RT-PCR) Not Detected Influenza B (RT-PCR) Not Detected M. pneumoniae (PCR) Not Detected Parainfluenza 1 (PCR) Not Detected Parainfluenza 2 (PCR) Not Detected Parainfluenza 3 (PCR) Not Detected Parainfluenza 4 (PCR) Not Detected RSV (PCR) Detected A Entero/Rhino (PCR) Not Detected SARS-CoV-2 RNA (RT-PCR) Not Detected 02/20/21 07:50 MCV MCH MCHC RDW Plt Count MPV Immature Gran % (Auto) Neut % (Auto) Lymph % (Auto) [place] % (Auto) Eos % (Auto) Baso % (Auto) Lymph # (Auto) [place] # (Auto) Eos # (Auto) Baso # (Auto) Abs Immat Gran (auto) Absolute Neuts (auto) Absolute Nucleated RBC Nucleated RBC % (auto) Smear Tech's Comments Anion Gap Estim Creat Clear Calc Estimated GFR POC Glucose 87 Random Glucose Fasting Glucose Calcium Magnesium Total Bilirubin AST ALT Alkaline Phosphatase Troponin I High Sens B-Natriuretic Peptide Total Protein Albumin Urine Color Urine Appearance Urine pH Ur Specific [place] Urine Protein Urine Glucose (UA) Urine Ketones Urine Blood Urine Nitrite Ur Leukocyte Esterase Urine RBC Urine WBC Ur Squamous Epith Cells Urine Bacteria Respiratory Panel Rod Adenovirus (Rapid PCR) B.pert (TEM-PCR) B.parapertussis DNA PCR C. pneumoniae DNA (PCR) Coronavirus OC43 (PCR) Coronavirus HKU1 (PCR) Coronavirus 229E (PCR) COVID-19 ([facility]) COVID-19 Clin Com Coronavirus NL63 (PCR) Human Metapneumovir PCR Influenza A (RT-PCR) Influenza B (RT-PCR) M. pneumoniae (PCR) Parainfluenza 1 (PCR) Parainfluenza 2 (PCR) Parainfluenza 3 (PCR) Parainfluenza 4 (PCR) RSV (PCR) Entero/Rhino (PCR) SARS-CoV-2 RNA (RT-PCR) Assessment and Plan (1) COPD exacerbation: Status: Acute (2) Bronchitis: Status: Acute Assessment and Plan: acute on chronic hypoxic respiratory failure due to severe copd with acute decompensation due to possible underlying viral infection res panel-shows rsv uri solumedrol, duonebs, azithro check resp viral panel paroxysmal afib eliquis, coreg chronic systolic and diastolic chf appears euvolemic continue coreg, lasix, losartan DM last a1c 5.6 hold semaglutide insulin sliding scale, monitor poc hypothyroid synthroid CAD asa, statin eliquis obesity weight loss chronic iron defeciency anemia ferrous sulfate dvt prophylaxis - on eliquis for afib full code Quality Stroke Does the patient have a stroke diagnosis?: No VTE Prior VTE?: No VTE Risk Level:: Medical - moderate - high VTE Device Contraindication: Treatment Not Indicated VTE Drug Contraindication: N/A - Med Ordered
[2021-02-20 11:58] LABS: Glucose, Whole Blood 109 mg/dL (60-115)
--- NOTE | 2021-02-20 15:35 | MHC.CM.PN ---
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 'she reports she is independent as she can but takes time for tasks to be completed rright now 14 hours of charge accounts audit clerk is all she needs but can be increased if needed. her daughter lives close by [place] [phone], discharge plan 1. [facility] for nursing 2. self resumpiton of her charge accounts audit clerk hpurs 14 hrs week 3 ?[facility] for her home oxygen [address] georgina reyes 5. pulmonary dr velez pulmonary 6. transportation family 7 medicare imm
--- NOTE | 2021-02-20 15:43 | MHC.CLN ---
NUTRITION PATIENT WITH SIGNIFICANT WEIGHT LOSS X 9 MONTHS, -37#, 15.5%. REPORTS THAT SHE WAS TRYING TO LOSE WEIGHT BY EATING LESS. REPORTS DECREASE IN APPETITE X 1 WEEK. REPORTS SOME CONCERNS WITH CHEWING AND ASKED FOR SOFTER FOOD. CHANGED DIET CONSISTENCY TO NDD2 FOR EASE OF CHEWING AND ALERTED MD OF CHEWING CONCERNS.
[2021-02-20 16:11] LABS: Glucose, Whole Blood 141 mg/dL (60-115)
[2021-02-20 19:53] LABS: Glucose, Whole Blood 163 mg/dL (60-115)
[2021-02-20] MEDS: Insulin Lispro 100 UNIT/ML 3 ML VIAL SUBCUT (21:34)
[2021-02-20] MEDS: Sucralfate Oral Suspension 1 GM/10 ML ORAL.SUSP PO (21:36)
[2021-02-20] MEDS: Azithromycin 500 MG TABLET PO (21:36)
[2021-02-21] VITALS (11 sets, daily range): BP systolic 90–133; BP diastolic 51–64; PULSE 72–96; RESP 14–20; TEMP 36–36.7; O2SAT 91–96
[2021-02-21] MEDS: Levothyroxine Sodium 100 MCG TABLET PO (05:35)
[2021-02-21 07:40] LABS: Glucose, Whole Blood 154 mg/dL (60-115)
[2021-02-21] MEDS: Fluticasone/Vilanterol 200/25 BLST.W.DEV 1 PUFF INHALE (07:58)
[2021-02-21] MEDS: Albuterol/Iprat 2.5/0.5MG 3 ML AMPUL.NEB INHALE ×4 (07:58→20:23)
[2021-02-21] MEDS: Insulin Lispro 100 UNIT/ML 3 ML VIAL SUBCUT ×4 (08:16→20:59)
[2021-02-21] MEDS: 0.9 % Sodium Chloride Flush 3 ML SYRINGE IVFLUSH ×3 (08:17→20:59)
[2021-02-21] MEDS: Omeprazole 20 MG CAPSULE.DR PO (08:17)
[2021-02-21] MEDS: Cholecalciferol (Vitamin D3) 25 MCG TABLET PO (08:17)
[2021-02-21] MEDS: Ascorbic Acid 500 MG TABLET PO ×2 (08:17→20:58)
[2021-02-21] MEDS: Ezetimibe 10 MG TABLET PO (08:17)
[2021-02-21] MEDS: Furosemide 40 MG TABLET PO (08:17)
[2021-02-21] MEDS: Atorvastatin Calcium 40 MG TABLET PO (08:18)
[2021-02-21] MEDS: DULoxetine HCl 30 MG CAPSULE.DR PO (08:18)
[2021-02-21] MEDS: Apixaban 5 MG TABLET PO ×2 (08:18→20:58)
[2021-02-21] MEDS: Aspirin 81 MG TAB.CHEW PO (08:18)
[2021-02-21] MEDS: Ferrous Sulfate 324 MG TABLET.DR PO (08:18)
[2021-02-21] MEDS: methylPREDNISolone Sod Succ 125 MG/2 ML VIAL 60 MG IVPUSH ×2 (08:18→20:58)
[2021-02-21] MEDS: Losartan Potassium 25 MG TABLET 75 MG PO (08:18)
[2021-02-21] MEDS: carvediloL 25 MG TABLET PO ×2 (08:18→21:00)
[2021-02-21] MEDS: Acetaminophen 325 MG TABLET 650 MG PO (08:22)
--- NOTE | 2021-02-21 11:16 | P.PNIM_ITS ---
Subjective Subjective Date of Service: 02/21/21 Interval History: f/u on copd exacerbation, doing better. Review of Systems +sob, no fever Physical Exam Vital Signs: Vital Signs: Last Vital Signs Temp 96.8 F 02/21/21 07:32 Pulse 96 02/21/21 07:59 Resp 18 02/21/21 07:59 BP 133/64 02/21/21 07:32 Pulse Ox 93 02/21/21 07:32 Oxygen Flow Rate 2 02/19/21 20:03 BMI result Body Mass Index 38.1 Const: Other: General: AO X 3, no acute distress Resp: occasional wheeze CVS: S1,S2,RRR GI: +BS, NT, no distention Skin: No rash Neuro: motor grossly intact Psych: appropriate affect Objective Data Active Medications Acetaminophen (Acetaminophen 325 Mg Tablet) 650 mg PO Q6H PRN PRN Reason: Pain, Mild (Pain Scale 1-3) Last Admin: 02/21/21 08:22 Dose: 650 mg Documented by: KENNETH Albuterol/Ipratropium (Albuterol/Iprat 2.5/0.5mg 3 Ml Ampul.Neb) 3 ml INHALE RQ4H WHILE AWAKE [facility] Last Admin: 02/21/21 07:58 Dose: 3 ml Documented by: CHINA Apixaban (Apixaban 5 Mg Tablet) 5 mg PO BID [facility] Last Admin: 02/21/21 08:18 Dose: 5 mg Documented by: KENNETH Ascorbic Acid (Ascorbic Acid 500 Mg Tablet) 500 mg PO BID [facility] Last Admin: 02/21/21 08:17 Dose: 500 mg Documented by: KENNETH Aspirin (Aspirin 81 Mg Tab.Chew) 81 mg PO DAILY [facility] Last Admin: 02/21/21 08:18 Dose: 81 mg Documented by: KENNETH Atorvastatin Calcium (Atorvastatin Calcium 40 Mg Tablet) 40 mg PO DAILY [facility] Last Admin: 02/21/21 08:18 Dose: 40 mg Documented by: KENNETH Azithromycin (Azithromycin 500 Mg Tablet) 500 mg PO Q24H [facility] Last Admin: 02/20/21 21:36 Dose: 500 mg Documented by: PARI Carvedilol (Carvedilol 25 Mg Tablet) 25 mg PO BID [facility]; Protocol Last Admin: 02/21/21 08:18 Dose: 25 mg Documented by: KENNETH Dextrose (Dextrose 50 % 25 Gm/50 Ml Vial) 25 gm IVPUSH Q15M PRN; Protocol PRN Reason: per Hypoglycemia Standing Ord. Dicyclomine HCl (Dicyclomine Hcl 10 Mg Capsule) 10 mg PO BID PRN PRN Reason: Abdominal Pain Docusate Sodium (Docusate Sodium 100 Mg Capsule) 100 mg PO BID PRN PRN Reason: consti Duloxetine HCl (Duloxetine Hcl 30 Mg Capsule.) 30 mg PO DAILY [facility] Last Admin: 02/21/21 08:18 Dose: 30 mg Documented by: KENNETH Ezetimibe (Ezetimibe 10 Mg Tablet) 10 mg PO DAILY [facility] Last Admin: 02/21/21 08:17 Dose: 10 mg Documented by: KENNETH Ferrous Sulfate (Ferrous Sulfate 324 Mg Tablet.) 324 mg PO DAILY [facility] Last Admin: 02/21/21 08:18 Dose: 324 mg Documented by: KENNETH Fluticasone/Vilanterol (Fluticasone/Vilanterol 200/25 Blst.W.Dev) 1 puff INHALE RDAILY [facility] Last Admin: 02/21/21 07:58 Dose: 1 puff Documented by: CHINA Furosemide (Furosemide 40 Mg Tablet) 40 mg PO BIDWM [facility]; Protocol Last Admin: 02/21/21 08:17 Dose: 40 mg Documented by: KENNETH Glucose (Glucose Gel 15 Gm Gel..Gram.) 15 gm PO Q15M PRN; Protocol PRN Reason: per Hypoglycemia Standing Ord. Insulin Human Lispro (Insulin Lispro 100 Unit/Ml 3 Ml Vial) 0 unit SUBCUT QIDACHS [facility]; Protocol Last Admin: 02/21/21 08:16 Dose: 2 unit Documented by: KENNETH Levothyroxine Sodium (Levothyroxine Sodium 100 Mcg Tablet) 100 mcg PO DAILY@0600 [facility] Last Admin: 02/21/21 05:35 Dose: 100 mcg Documented by: ROSALVAASY Losartan Potassium (Losartan Potassium 25 Mg Tablet) 75 mg PO DAILY [facility]; Protocol Last Admin: 02/21/21 08:18 Dose: 75 mg Documented by: KENNETH Meclizine HCl (Meclizine Hcl 12.5 Mg Tablet) 12.5 mg PO DAILY PRN PRN Reason: for motion sickness Methylprednisolone Sodium Succinate (Methylprednisolone Sod Succ 125 Mg/2 Ml Vial) 60 mg IVPUSH Q12H [facility] Last Admin: 02/21/21 08:18 Dose: 60 mg Documented by: KENNETH Nitroglycerin (Nitroglycerin 0.4 Mg Tab.Subl) 0.4 mg SUBLINGUAL Q5M PRN PRN Reason: for angina Omeprazole (Omeprazole 20 Mg Capsule.Dr) 20 mg PO DAILY@0630 [facility] Last Admin: 02/21/21 08:17 Dose: 20 mg Documented by: KENNETH Potassium Chloride (Potassium Chloride Er 10 Meq Capsule.Er) 10 meq PO BID [facility] Last Admin: 02/21/21 08:17 Dose: 10 meq Documented by: KENNETH Sodium Chloride (0.9 % Sodium Chloride Flush 3 Ml Syringe) 3 ml IVFLUSH QSHIFT [facility] Last Admin: 02/21/21 08:17 Dose: 3 ml Documented by: KENNETH Sodium Chloride (Sodium Chloride 0.65 % Nasal 44 Ml Sprbtl) 1 spray NOSTRIL-B Q1H PRN PRN Reason: dry nose Sucralfate (Sucralfate Oral Suspension 1 Gm/10 Ml Oral.Susp) 1 gm PO BEDTIME [facility] Last Admin: 02/20/21 21:36 Dose: 1 gm Documented by: PARI Vitamin D (Cholecalciferol (Vitamin D3) 25 Mcg Tablet) 25 mcg PO DAILY [facility] Last Admin: 02/21/21 08:17 Dose: 25 mcg Documented by: KENNETH Labs CBC & Chem 7: 02/20/21 05:41 02/20/21 05:40 Labs: Laboratory Results - last 24 hr 02/20/21 02/20/21 02/20/21 11:38 16:03 19:45 POC Glucose 109 141 H 163 H 02/21/21 07:28 POC Glucose 154 H Assessment and Plan (1) COPD exacerbation: Status: Acute (2) Bronchitis: Status: Acute Assessment and Plan: acute on chronic hypoxic respiratory failure due to severe copd with acute decompensation due RSV -continue bronchidilators, change to PO prednisone paroxysmal afib eliquis, coreg chronic systolic and diastolic chf appears euvolemic continue coreg, lasix, losartan DM last a1c 5.6 hold semaglutide insulin sliding scale, monitor poc hypothyroid synthroid CAD asa, statin eliquis obesity weight loss chronic iron defeciency anemia ferrous sulfate dvt prophylaxis - on eliquis for afib full code Dispo: home with VNA tomorrow Quality Stroke Does the patient have a stroke diagnosis?: No VTE Prior VTE?: No VTE Risk Level:: Medical - moderate - high VTE Device Contraindication: Treatment Not Indicated VTE Drug Contraindication: N/A - Med Ordered
[2021-02-21 11:21] LABS: Glucose, Whole Blood 242 mg/dL (60-115)
[2021-02-21 16:59] LABS: Glucose, Whole Blood 200 mg/dL (60-115)
[2021-02-21 20:13] LABS: Glucose, Whole Blood 185 mg/dL (60-115)
[2021-02-21] MEDS: Sucralfate Oral Suspension 1 GM/10 ML ORAL.SUSP PO (20:58)
[2021-02-21] MEDS: Azithromycin 500 MG TABLET PO (20:58)
[2021-02-22] VITALS (10 sets, daily range): BP systolic 117–149; BP diastolic 58–71; PULSE 78–92; RESP 16–20; TEMP 35.8–36.7; O2SAT 83–95
[2021-02-22] MEDS: Levothyroxine Sodium 100 MCG TABLET PO (05:36)
[2021-02-22] MEDS: Omeprazole 20 MG CAPSULE.DR PO (05:36)
[2021-02-22 07:48] LABS: Glucose, Whole Blood 168 mg/dL (60-115)
[2021-02-22] MEDS: Albuterol/Iprat 2.5/0.5MG 3 ML AMPUL.NEB INHALE ×4 (07:51→20:33)
[2021-02-22] MEDS: DULoxetine HCl 30 MG CAPSULE.DR PO (07:53)
[2021-02-22] MEDS: Losartan Potassium 25 MG TABLET 75 MG PO (07:53)
[2021-02-22] MEDS: Atorvastatin Calcium 40 MG TABLET PO (07:54)
[2021-02-22] MEDS: Furosemide 40 MG TABLET PO ×2 (07:55→16:50)
[2021-02-22] MEDS: Cholecalciferol (Vitamin D3) 25 MCG TABLET PO (07:55)
[2021-02-22] MEDS: Ascorbic Acid 500 MG TABLET PO ×2 (07:55→21:14)
[2021-02-22] MEDS: Aspirin 81 MG TAB.CHEW PO (07:56)
[2021-02-22] MEDS: Ferrous Sulfate 324 MG TABLET.DR PO (07:56)
[2021-02-22] MEDS: Ezetimibe 10 MG TABLET PO (07:56)
[2021-02-22] MEDS: Apixaban 5 MG TABLET PO ×2 (07:57→21:14)
[2021-02-22] MEDS: carvediloL 25 MG TABLET PO ×2 (07:57→21:14)
[2021-02-22] MEDS: Insulin Lispro 100 UNIT/ML 3 ML VIAL SUBCUT ×3 (07:58→21:20)
[2021-02-22] MEDS: Fluticasone/Vilanterol 200/25 BLST.W.DEV 1 PUFF INHALE (07:59)
[2021-02-22] MEDS: methylPREDNISolone Sod Succ 125 MG/2 ML VIAL 60 MG IVPUSH ×2 (08:04→21:14)
[2021-02-22] MEDS: 0.9 % Sodium Chloride Flush 3 ML SYRINGE IVFLUSH ×3 (08:07→21:14)
--- NOTE | 2021-02-22 10:53 | HO.PM.IMPN ---
Subjective Subjective Date of Service: 02/22/21 Interval History: f/u on copd exacerbation, feels the same Review of Systems +sob, no fever Physical Exam Vital Signs: Vital Signs: Last Vital Signs Temp 97.3 F 02/22/21 07:31 Pulse 92 02/22/21 10:25 Resp 16 02/22/21 07:52 BP 117/71 02/22/21 07:31 Pulse Ox 92 02/22/21 07:31 Oxygen Flow Rate 2 02/19/21 20:03 BMI result Body Mass Index 38.1 Const: Other: General: AO X 3, no acute distress, feels weak Resp: occasional wheeze CVS: S1,S2,RRR GI: +BS, NT, no distention Skin: No rash Neuro: motor grossly intact Psych: appropriate affect Objective Data Active Medications Acetaminophen (Acetaminophen 325 Mg Tablet) 650 mg PO Q6H PRN PRN Reason: Pain, Mild (Pain Scale 1-3) Last Admin: 02/21/21 08:22 Dose: 650 mg Documented by: KENNETH Albuterol/Ipratropium (Albuterol/Iprat 2.5/0.5mg 3 Ml Ampul.Neb) 3 ml INHALE RQ4H WHILE AWAKE [facility] Last Admin: 02/22/21 07:51 Dose: 3 ml Documented by: KAIT Apixaban (Apixaban 5 Mg Tablet) 5 mg PO BID [facility] Last Admin: 02/22/21 07:57 Dose: 5 mg Documented by: REYNOLD Ascorbic Acid (Ascorbic Acid 500 Mg Tablet) 500 mg PO BID [facility] Last Admin: 02/22/21 07:55 Dose: 500 mg Documented by: REYNOLD Aspirin (Aspirin 81 Mg Tab.Chew) 81 mg PO DAILY [facility] Last Admin: 02/22/21 07:56 Dose: 81 mg Documented by: REYNOLD Atorvastatin Calcium (Atorvastatin Calcium 40 Mg Tablet) 40 mg PO DAILY [facility] Last Admin: 02/22/21 07:54 Dose: 40 mg Documented by: REYNOLD Azithromycin (Azithromycin 500 Mg Tablet) 500 mg PO Q24H [facility] Last Admin: 02/21/21 20:58 Dose: 500 mg Documented by: MER Carvedilol (Carvedilol 25 Mg Tablet) 25 mg PO BID [facility]; Protocol Last Admin: 02/22/21 07:57 Dose: 25 mg Documented by: REYNOLD Dextrose (Dextrose 50 % 25 Gm/50 Ml Vial) 25 gm IVPUSH Q15M PRN; Protocol PRN Reason: per Hypoglycemia Standing Ord. Dicyclomine HCl (Dicyclomine Hcl 10 Mg Capsule) 10 mg PO BID PRN PRN Reason: Abdominal Pain Docusate Sodium (Docusate Sodium 100 Mg Capsule) 100 mg PO BID PRN PRN Reason: consti Duloxetine HCl (Duloxetine Hcl 30 Mg Capsule.) 30 mg PO DAILY [facility] Last Admin: 02/22/21 07:53 Dose: 30 mg Documented by: REYNOLD Ezetimibe (Ezetimibe 10 Mg Tablet) 10 mg PO DAILY [facility] Last Admin: 02/22/21 07:56 Dose: 10 mg Documented by: REYNOLD Ferrous Sulfate (Ferrous Sulfate 324 Mg Tablet.) 324 mg PO DAILY [facility] Last Admin: 02/22/21 07:56 Dose: 324 mg Documented by: REYNOLD Fluticasone/Vilanterol (Fluticasone/Vilanterol 200/25 Blst.W.Dev) 1 puff INHALE RDAILY [facility] Last Admin: 02/22/21 07:59 Dose: 1 puff Documented by: KAIT Furosemide (Furosemide 40 Mg Tablet) 40 mg PO BIDWM [facility]; Protocol Last Admin: 02/22/21 07:55 Dose: 40 mg Documented by: REYNOLD Glucose (Glucose Gel 15 Gm Gel..Gram.) 15 gm PO Q15M PRN; Protocol PRN Reason: per Hypoglycemia Standing Ord. Insulin Human Lispro (Insulin Lispro 100 Unit/Ml 3 Ml Vial) 0 unit SUBCUT QIDACHS [facility]; Protocol Last Admin: 02/22/21 07:58 Dose: 2 unit Documented by: REYNOLD Levothyroxine Sodium (Levothyroxine Sodium 100 Mcg Tablet) 100 mcg PO DAILY@0600 [facility] Last Admin: 02/22/21 05:36 Dose: 100 mcg Documented by: MER Losartan Potassium (Losartan Potassium 25 Mg Tablet) 75 mg PO DAILY [facility]; Protocol Last Admin: 02/22/21 07:53 Dose: 75 mg Documented by: REYNOLD Meclizine HCl (Meclizine Hcl 12.5 Mg Tablet) 12.5 mg PO DAILY PRN PRN Reason: for motion sickness Methylprednisolone Sodium Succinate (Methylprednisolone Sod Succ 125 Mg/2 Ml Vial) 60 mg IVPUSH Q12H [facility] Last Admin: 02/22/21 08:04 Dose: 60 mg Documented by: REYNOLD Nitroglycerin (Nitroglycerin 0.4 Mg Tab.Subl) 0.4 mg SUBLINGUAL Q5M PRN PRN Reason: for angina Omeprazole (Omeprazole 20 Mg Capsule.Dr) 20 mg PO DAILY@0630 [facility] Last Admin: 02/22/21 05:36 Dose: 20 mg Documented by: MER Potassium Chloride (Potassium Chloride Er 10 Meq Capsule.Er) 10 meq PO BID [facility] Last Admin: 02/22/21 07:53 Dose: 10 meq Documented by: REYNOLD Sodium Chloride (0.9 % Sodium Chloride Flush 3 Ml Syringe) 3 ml IVFLUSH QSHIFT [facility] Last Admin: 02/22/21 08:07 Dose: 3 ml Documented by: REYNOLD Sodium Chloride (Sodium Chloride 0.65 % Nasal 44 Ml Sprbtl) 1 spray NOSTRIL-B Q1H PRN PRN Reason: dry nose Sucralfate (Sucralfate Oral Suspension 1 Gm/10 Ml Oral.Susp) 1 gm PO BEDTIME [facility] Last Admin: 02/21/21 20:58 Dose: 1 gm Documented by: MER Vitamin D (Cholecalciferol (Vitamin D3) 25 Mcg Tablet) 25 mcg PO DAILY [facility] Last Admin: 02/22/21 07:55 Dose: 25 mcg Documented by: REYNOLD Labs CBC & Chem 7: 02/20/21 05:41 02/20/21 05:40 Labs: Laboratory Results - last 24 hr 02/21/21 02/21/21 02/21/21 11:08 16:49 19:54 POC Glucose 242 H 200 H 185 H 02/22/21 07:28 POC Glucose 168 H Assessment and Plan (1) COPD exacerbation: Status: Acute (2) Bronchitis: Status: Acute Assessment and Plan: acute on chronic hypoxic respiratory failure due to severe copd with acute decompensation due RSV -continue bronchidilators, change to PO prednisone paroxysmal afib eliquis for stroke prevention Coreg for rate control chronic systolic and diastolic chf appears euvolemic continue coreg, lasix, losartan DM last a1c 5.6 hold semaglutide insulin sliding scale, monitor poc hypothyroid synthroid CAD asa, statin eliquis obesity weight loss chronic iron defeciency anemia ferrous sulfate dvt prophylaxis - on eliquis for afib full code Dispo:PT eval for possible STR Quality Stroke Does the patient have a stroke diagnosis?: No VTE Prior VTE?: No VTE Risk Level:: Medical - moderate - high VTE Device Contraindication: Treatment Not Indicated VTE Drug Contraindication: N/A - Med Ordered
[2021-02-22 11:44] LABS: Glucose, Whole Blood 141 mg/dL (60-115)
--- NOTE | 2021-02-22 14:50 | MHC.CM.PN ---
NURSE CREW BOSS NOTE ELECTRONIC MEDICAL RECORD REVIEWED ALONG WITH CASE DISCUSSED ON MULTIPLE DISCIPLIANRY ROUNDS. MET WITH PATIENT GAVE HER A UPDATE ON THE SHORT TERM REHAB FACILITIES SHE REALLY WANTED TO BE ABLE TO GO TO THE [facility] SHE WAS THERE BEFORE , BBBBUT THEY ARE CLOSED TO NEW ADMISSIONS. I INFORMED HER MANY STR WERE FOLLOWING HER AND THEY MAY HAVE A BED AT 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 SHE HAS A ELEVATD TOILET SEAT. .
[2021-02-22 15:55] LABS: Glucose, Whole Blood 198 mg/dL (60-115)
[2021-02-22 20:20] LABS: Glucose, Whole Blood 156 mg/dL (60-115)
[2021-02-22] MEDS: Azithromycin 500 MG TABLET PO (21:14)
[2021-02-22] MEDS: Sucralfate Oral Suspension 1 GM/10 ML ORAL.SUSP PO (21:14)
[2021-02-23] VITALS: BP 130/59; PULSE 77; RESP 18; TEMP 36.6; O2SAT 93
[2021-02-23 04:00] VITALS: BP 154/67; PULSE 82; RESP 18; TEMP 36.2; O2SAT 94
[2021-02-23] MEDS: Omeprazole 20 MG CAPSULE.DR PO (05:50)
[2021-02-23] MEDS: Levothyroxine Sodium 100 MCG TABLET PO (05:50)
[2021-02-23 07:38] LABS: Glucose, Whole Blood 156 mg/dL (60-115)
[2021-02-23] MEDS: Insulin Lispro 100 UNIT/ML 3 ML VIAL SUBCUT (07:51)
[2021-02-23] MEDS: Atorvastatin Calcium 40 MG TABLET PO (07:52)
[2021-02-23] MEDS: Ferrous Sulfate 324 MG TABLET.DR PO (07:52)
[2021-02-23] MEDS: DULoxetine HCl 30 MG CAPSULE.DR PO (07:52)
[2021-02-23] MEDS: carvediloL 25 MG TABLET PO (07:53)
[2021-02-23] MEDS: Furosemide 40 MG TABLET PO (07:53)
[2021-02-23] MEDS: Apixaban 5 MG TABLET PO (07:53)
[2021-02-23] MEDS: Aspirin 81 MG TAB.CHEW PO (07:53)
[2021-02-23] MEDS: Ascorbic Acid 500 MG TABLET PO (07:53)
[2021-02-23] MEDS: Losartan Potassium 25 MG TABLET 75 MG PO (07:53)
[2021-02-23] MEDS: Ezetimibe 10 MG TABLET PO (07:54)
[2021-02-23] MEDS: Cholecalciferol (Vitamin D3) 25 MCG TABLET PO (07:54)
[2021-02-23 07:59] VITALS: BP 149/70; PULSE 96; RESP 20; TEMP 36.7; O2SAT 92
[2021-02-23] MEDS: Fluticasone/Vilanterol 200/25 BLST.W.DEV 1 PUFF INHALE (08:19)
[2021-02-23] MEDS: Albuterol/Iprat 2.5/0.5MG 3 ML AMPUL.NEB INHALE ×2 (08:19→11:40)
[2021-02-23 08:20] VITALS: PULSE 84; RESP 16; O2SAT 84
--- NOTE | 2021-02-23 11:15 | P.DS_ITS ---
DS: Providers Provider Date of Service: 02/23/21 Date of admission: 02/19/21 20:19 Primary care physician: Unknown Physician DS: Diagnosis Discharge Diagnosis (1) COPD exacerbation: Status: Resolved (2) Bronchitis: Status: Resolved DS: Summary Hospital Course Hospital Course: Patient was admitted due to exacerbation of COPD exacerbation due to RSV and treated with bronchidilators and seroid and is doing much better now. Will discharge home with Oral prednisone and continue inhalers. No change in chronic medications for AFIB, chronin systolic and diastolic CHF, CAD, iron deficiecy anemia, AFIB, HLD, Hypothyroidism. She declined rehab and will go home with VNS Time Spent with Patient Time attestation: Total time spent providing and/or coordinating discharge services: Discharge coordination time: Greater than 30 minutes Quality: Stroke Does the patient have a stroke diagnosis?: No Physical Exam Verdana 4l Vital Signs: Verdana 4d Verdana 4d Vital Signs: Verdana 4d Verdana 4Bd Last Vital Signs Verdana 4d Bar Roller New 4d Bar Roller New 4d Temp 98.1 F 02/23/21 07:59 Bar Roller New 4d Pulse 84 02/23/21 08:20 Bar Roller New 4d Resp 16 02/23/21 08:20 BP 149/70 H 02/23/21 07:59 Pulse Ox 92 02/23/21 07:59 Oxygen Flow Rate 2 02/19/21 20:03 BMI result Body Mass Index 38.1 DS: Data Data Completed and Pending Labs on day of discharge: Laboratory Results - last 24 hr 02/22/21 02/22/21 02/22/21 11:34 15:39 19:55 POC Glucose 141 H 198 H 156 H 02/23/21 07:27 POC Glucose 156 H Discharge Plan Discharge Anticipated Discharge Date/Time: 02/23/21 11:01 Patient Disposition: Home Health Service Discharge Diagnosis: Acute COPD exacerbation with bronchitis Referrals: [facility] [Other] - 1 Week (RESUMPTION OF YOU NURSING VISITS WITH [facility] , SELF REUMPTIOJ OF YOUR [facility]ANT SPECIALIST SERVICES PATIENT ALREADY HAS SET UP PCP DR PURCELL PATIENT INSTRUCTED TO CALL FOR [facility] FOLLOW UP TRANSPORTATION [facility] SELF RESUMPTION OF HER HOME OXYGEN) Physician,Unknown J [Physician] - 1 Week Discharge Medications: New prednisone 20 mg tablet 20 mg PO DAILY Qty: 4 0RF Continued (DME) PUREWICK See Rx Instructions .Route .MEDSUPPLY Qty: 90 3RF Rx Instructions: As directed syringe with needle, safety [BD Integra Syringe] 3 mL 25 gauge x 5/8 syringe 1 ml topical Q4W Qty: 3 12RF Eliquis 5 mg tablet 5 mg PO BID 90 Days Qty: 180 3RF (DME) stair lift and ramp See Rx Instructions .Route .MEDSUPPLY Qty: 1 0RF Rx Instructions: As directed clotrimazole 1 % cream See Rx Instructions topical BID Qty: 45 11RF Rx Instructions: apply to affected area topical 2 times a day; (DME) lancets [Accu-Chek Softclix Lancets] Misc See Rx Instructions .ROUTE .MEDSUPPLY Qty: 100 3RF Rx Instructions: As directed daily (DME) blood-glucose meter [Accu-Chek Ruth Plus Meter] Misc See Rx Instructions .ROUTE .MEDSUPPLY Qty: 1 0RF Rx Instructions: As directed test blood glucose daily (DME) Accu-Chek Ruth Plus test strp Strip See Rx Instructions .ROUTE .MEDSUPPLY Qty: 100 3RF Rx Instructions: test blood glucose daily (DME) OneTouch Ultra Test Strip See Rx Instructions .Route Qty: 100 3RF Rx Instructions: As directed test blood glucose daily (DME) blood-glucose meter [OneTouch Ultra2 Meter] Kit See Rx Instructions .Route Qty: 1 0RF Rx Instructions: As directed (DME) lancets [OneTouch UltraSoft Lancets] Misc See Rx Instructions .Route Qty: 100 3RF Rx Instructions: As directed test blood glucose daily (DME) blood-glucose meter [OneTouch UltraMini] Kit See Rx Instructions .Route Qty: 1 0RF Rx Instructions: As directed fluticasone propion-salmeterol 500-50 mcg/dose blister with device 1 inh inhalation BID Qty: 60 11RF (DME) Wheelchair Ramp See Rx Instructions .Route .MEDSUPPLY Qty: 1 0RF Rx Instructions: As directed (DME) Transfer Bench Misc See Rx Instructions .Route Qty: 1 0RF Rx Instructions: As directed for bath tub (DME) blood pressure monitor [Blood Pressure Kit] Kit See Rx Instructions .Route Qty: 1 0RF Rx Instructions: As directed carvedilol 25 mg tablet 25 mg PO BID 90 Days Qty: 180 2RF cyanocobalamin (vitamin B-12) 1,000 mcg/mL solution 1,000 mcg IM Q4W 90 Days Qty: 4 5RF semaglutide 1 mg/dose (4 mg/3 mL) pen injector 1 mg subcut QWEEK 30 Days Qty: 3.75 3RF Rx Instructions: for 4 doses potassium chloride 10 mEq tablet extended release 10 meq PO BID Qty: 180 3RF nitroglycerin 0.4 mg tablet, sublingual 0.4 mg sublingual Q5M PRN (Reason: for angina) 90 Days Qty: 25 0RF meclizine 12.5 mg tablet 12.5 mg PO DAILY PRN (Reason: for motion sickness) Qty: 30 5RF Spiriva with HandiHaler 18 mcg capsule, w/inhalation device 1 cap inhalation DAILY Qty: 90 3RF albuterol sulfate 2.5 mg /3 mL (0.083 %) solution for nebulization 2.5 mg inhalation Q6H PRN (Reason: shortness of breath or wheezing) Qty: 450 1RF ipratropium-albuterol 0.5 mg-3 mg(2.5 mg base)/3 mL solution for nebulization 3 ml inhalation Q4-6H PRN (Reason: wheezing.DYSPNEA) 30 Days Qty: 180 3RF docusate sodium 100 mg capsule 100 mg PO BID PRN (Reason: consti) Qty: 60 11RF ferrous sulfate 325 mg (65 mg iron) Tablet 325 mg PO DAILY 0RF aspirin 81 mg Tablet 81 mg PO DAILY 0RF cholecalciferol (vitamin D3) [Vitamin D3] 25 mcg (1,000 unit) Capsule 25 mcg PO DAILY 0RF dicyclomine 10 mg Capsule 10 mg PO BID PRN (Reason: Abdominal Pain) 0RF (DME) hospital bed See Rx Instructions .Route .MEDSUPPLY Qty: 1 0RF Rx Instructions: As directed sucralfate 100 mg/mL suspension 1 g PO BEDTIME 0RF No Action guaifenesin [Mucinex] 600 mg tablet extended release 12hr 600 mg PO Q12H PRN (Reason: congestion) Qty: 20 0RF furosemide 40 mg tablet 40 mg PO BID Qty: 180 3RF levothyroxine 100 mcg tablet 100 mcg PO QAM Qty: 90 3RF duloxetine 30 mg capsule,delayed release(DR/EC) 30 mg PO DAILY Qty: 90 2RF atorvastatin 40 mg tablet 40 mg PO DAILY Qty: 90 3RF ezetimibe 10 mg tablet 10 mg PO DAILY Qty: 90 3RF Dexilant 30 mg capsule,biphase delayed releas 30 mg PO DAILY Qty: 90 3RF ascorbic acid (vitamin C) 500 mg tablet 500 mg PO BID Qty: 180 3RF albuterol sulfate 90 mcg/actuation HFA aerosol inhaler 2 puff PO Q4H PRN (Reason: for respiratory distress) Qty: 8.5 0RF (DME) [facility] Bed diagnosis I50.32 See Rx Instructions .Route .MEDSUPPLY Qty: 1 0RF Rx Instructions: As directed, GERMAN 99 (DME) Nebulizer supplies See Rx Instructions .Route .MEDSUPPLY Qty: 3 3RF Rx Instructions: As directed losartan 25 mg tablet 50 mg PO DAILY 0RF Discharge Orders: Discharge Order (Routine); Ordered 02/23/21 Ordered By: Jac Christy Diet: advance to usual diet Activity on Discharge: As tolerated Stand Alone Forms: Patient Portal Discharge page Activity Restrictions/Additional Instructions: Take your medications as prescribed. If you were prescribed antibiotics today, it is important that you take your medication to their entirety, do not skip any doses, do not finish them early. Follow-up with your primary care provider this week. Return to the emergency department with new or worsening symptoms. In case of emergency call 911 Care Plan Goals: Full recovery from COPD exacerbation Health Concerns: COPD that is chronic Plan of Treatment: Continue taking your inhalers, take Prednisone as directed. Follow up with your Doctor. you declined rehab Assessment: As above Patient Instructions: Acute Bronchitis (ED) Discharge Date/Time: 02/23/21 18:19
--- NOTE | 2021-02-23 11:33 | W.MHC.F2F ---
Service Date Service Date: 02/23/21 Encounter Date of encounter: 02/23/21 Reasons for Services Signs and symptoms assessed: Shortness of breath, chronic and advanced COPD Reason for physical therapy: therapeutic exercises and energy conservation Homebound: Leaving the home is medically contraindicated at this time without the asist of a device and/or another person due th the listed conditions above and below. Reason homebound: shortness of breath at rest Homebound supporting statement: Homebound due to weakness and shortness of breath with minimal effort and therefore needs the assistance of another person Certification: Based on the above findings, I certify that this patient is confined to the home and needs intermittent residential care, physical therapy and/or speech therapy, or continues to need occupational therapy. The patient is under my care, and I have initiated the establishment of the plan of care. The patient will be followed by a physician who will periodically review the plan of care.
[2021-02-23 11:34] LABS: Glucose, Whole Blood 143 mg/dL (60-115)
[2021-02-23 11:41] VITALS: PULSE 84; RESP 16; O2SAT 94
--- NOTE | 2021-02-23 13:23 | MHC.CM.PN ---
nurse telephonic nurse case manager note electronic medical record reviewed seen by reggie amador with improvement since yesterday and recomending ok to go home with vna andf home pt . 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
--- NOTE | 2021-02-23 15:40 | MHC.CM.PN ---
NURSE CLOTH MERCERIZER BACK TENDER NOTE patient is awaiting to go to short term rehab i spoke with her daughter she would like me to advance my search out of the area to see if we can get one quicker , she reported she is still sick with the covid . referrals to [place] sent out today can be ready tomorrow , will need [facility] transportation see allscript for hcp and vacination information
[2021-02-23 16:12] LABS: Glucose, Whole Blood 140 mg/dL (60-115)
== END 2021-02-23 18:19 | disposition home health service (06) | DRG 190 ==
LOC: HO.ED 19:13 → HO.EDOVER 20:28 → HO.S3 22:12
PROVIDERS: Internal Medicine; Physician Assistant; Admitting Provider Internal Medicine; Emergency Provider Emergency Medicine; PCP Internal Medicine; Visit Provider Internal Medicine
DX: J44.1 Chronic obstructive pulmonary disease with (acute) exacerbation (principal); J96.21 Acute and chronic respiratory failure with hypoxia; I50.42 Chronic combined systolic (congestive) and diastolic (congestive) heart failure; J20.5 Acute bronchitis due to respiratory syncytial virus; E03.9 Hypothyroidism, unspecified; I25.10 Atherosclerotic heart disease of native coronary artery without angina pectoris; E11.9 Type 2 diabetes mellitus without complications; J44.0 Chronic obstructive pulmonary disease with (acute) lower respiratory infection; D50.9 Iron deficiency anemia, unspecified; G47.33 Obstructive sleep apnea (adult) (pediatric); I48.0 Paroxysmal atrial fibrillation; E66.9 Obesity, unspecified; Z68.38 Body mass index [BMI] 38.0-38.9, adult; Z20.822 Contact with and (suspected) exposure to COVID-19; Z87.891 Personal history of nicotine dependence; Z99.81 Dependence on supplemental oxygen; Z88.5 Allergy status to narcotic agent; Z79.01 Long term (current) use of anticoagulants; Z79.82 Long term (current) use of aspirin; Z79.890 Hormone replacement therapy; Z79.899 Other long term (current) drug therapy
CPT/HCPCS: 36415; 71045; 71275; 80048; 80053; 81001; 82947; 83735; 83880; 84484; 85025; 85027; 87633; 87635; 93005; 94640; 96374; 97116; 97162; 99285; J2930; Q9967

== ENCOUNTER → 2021-02-20 16:22 | Outpatient (BNVA) | payer OTHER, SELFPAY | PROVIDERS: PCP Internal Medicine; Visit Provider Anesthesiology ==

== ENCOUNTER → 2021-03-15 11:16 | Outpatient (BNVA) | payer OTHER, SELFPAY | PROVIDERS: PCP Internal Medicine; Visit Provider Internal Medicine | DX: Z13.89 Encounter for screening for other disorder (principal) | CPT/HCPCS: Q3014 ==

== ENCOUNTER 2021-03-27 07:20 | Outpatient (REF) | payer OTHER, SELFPAY ==
[2021-03-27 11:22] LABS: Appearance Urine HAZY; Color Urine YELLOW; Glucose Urine UA NEG (NEG); Leukocyte Esterase Urine NEG (NEG); Nitrite Urine NEG (NEG); Specific Gravity - Urine >= 1.030 (1.005-1.025); Urine Blood NEG (NEG); Urine Ketones NEG (NEG); Urine Protein 1+ MG/DL (NEG-TRACE)
[2021-03-27 12:05] LABS: Free T4 (Free Thyroxine) 0.79 ng/dL (0.71-1.85); Thyroid Stimulating Hormone 5.38 uIU/mL (0.32-4.0)
[2021-03-27 12:08] LABS: Alanine Aminotransferase 14 U/L (0-31); Albumin Level 3.8 g/dL (3.5-5.0); Alkaline Phosphatase 145 U/L (39-117); Anion Gap 14 (12-20); Aspartate Amino Transferase 22 U/L (5-31); Bilirubin Total 0.6 mg/dL (0.0-1.0); Blood Urea Nitrogen 19 mg/dL (9-16); Calcium 9.5 mg/dL (8.4-10.2); Carbon Dioxide 29 mmol/L (22-29); Chloride 103 mmol/L (96-108); Estimated Glomerular Filt Rate 58; Glucose Random 99 mg/dL (60-115); Potassium 3.9 mmol/L (3.3-5.1); Sodium 142 mmol/L (135-145); Total Protein 6.6 g/dL (6.5-8.0)
[2021-03-27 12:09] LABS: Bacteria Urine TRACE /LPF; RBC Urine 0 /HPF (0); Renal Epithelial Cells Urine TRACE /LPF; Squamous Epithelial Cell Urine 1+ /LPF
== END 2021-03-27 07:21 | disposition home or self-care (01) ==
LOC: HO.LAB 07:20
PROVIDERS: PCP Internal Medicine; Visit Provider Internal Medicine
DX: E03.9 Hypothyroidism, unspecified (principal); N28.9 Disorder of kidney and ureter, unspecified
CPT/HCPCS: 36415; 80053; 81001; 84439; 84443

== ENCOUNTER → 2021-04-19 10:55 | Outpatient (BNVA) | payer OTHER, SELFPAY | PROVIDERS: PCP Internal Medicine; Visit Provider Internal Medicine | DX: J43.1 Panlobular emphysema (principal); G47.33 Obstructive sleep apnea (adult) (pediatric); E66.9 Obesity, unspecified; J96.91 Respiratory failure, unspecified with hypoxia; J96.92 Respiratory failure, unspecified with hypercapnia; Z68.39 Body mass index [BMI] 39.0-39.9, adult | CPT/HCPCS: 99212 ==

== ENCOUNTER 2021-05-17 09:40 | Outpatient (REF) | payer OTHER, SELFPAY ==
--- NOTE | ~2021-05-17 | US_ITS ---
EXAMINATION: US SOFT TISSUE NECK CLINICAL INFORMATION: Right submandibular area lump. COMPARISON: None TECHNIQUE: Ultrasound of the neck soft tissues was performed with high-frequency grayscale imaging and color Doppler. FINDINGS: In the area indicated by the patient, there is a lump which corresponds an ultrasound finding of a small lymph node measuring 0.59 x 0.37 to 0.23 cm. It appears benign. US/US soft tiss head and/or neck IMPRESSION: There is a small lymph node in the area where the patient complains of a lump anterior to the right submandibular gland.
== END 2021-05-17 09:41 | disposition home or self-care (01) ==
LOC: HO.HMGCX 09:40
PROVIDERS: Visit Provider Internal Medicine
DX: M27.8 Other specified diseases of jaws (principal)
CPT/HCPCS: 76536

== ENCOUNTER → 2021-05-22 10:52 | Outpatient (BNVA) | payer OTHER, SELFPAY | PROVIDERS: PCP Internal Medicine; Referring Provider Internal Medicine; Visit Provider Internal Medicine | DX: I48.0 Paroxysmal atrial fibrillation (principal); I25.10 Atherosclerotic heart disease of native coronary artery without angina pectoris; R00.1 Bradycardia, unspecified; I10 Essential (primary) hypertension; E11.9 Type 2 diabetes mellitus without complications; G47.33 Obstructive sleep apnea (adult) (pediatric); Z79.01 Long term (current) use of anticoagulants; Z79.899 Other long term (current) drug therapy | CPT/HCPCS: 99212 ==

== ENCOUNTER 2021-06-15 11:17 | Emergency (ER) | payer OTHER, SELFPAY ==
--- NOTE | ~2021-06-15 | US_ITS ---
EXAMINATION: US VENOUS ULTRASOUND WITH DOPPLER LOWER EXTREMITY, LEFT CLINICAL INFORMATION: Left lower terminate pain COMPARISON: None TECHNIQUE: Ultrasound of the deep veins is performed from the hip to the calf with compression sonography and color and pulse Doppler assessment. Spectral analysis with color-flow imaging is performed. FINDINGS: There is normal venous compression and respiratory variation and augmented flow. The visualized common femoral vein, superficial femoral vein, profunda femoral vein, popliteal vein, and the trifurcation region shows no evidence of deep venous thrombosis. There is no significant popliteal fossa cyst. US/US venous duplex LE LT IMPRESSION: No acute DVT demonstrated in the left lower extremity.
--- NOTE | ~2021-06-15 | XR_ITS ---
EXAMINATION: XR FOOT, LEFT CLINICAL INFORMATION: Great toe pain COMPARISON: None TECHNIQUE: AP, lateral, and oblique views of the left foot. FINDINGS: No acute fracture or dislocation.. Alignment is anatomic. Small marginal osteophytes along the first metatarsophalangeal joint. Moderate plantar calcaneal enthesophyte. XR/XR foot LT 2V IMPRESSION: No acute fracture or dislocation.
[2021-06-15 11:35] VITALS: BP 131/56; BP 140/84; PULSE 94; PULSE 98; RESP 18; TEMP 36.5; O2SAT 98; BMI 38.0
--- NOTE | 2021-06-15 11:37 | ED.GENADULT ---
HPI - General Adult General Chief complaint: Extremity Injury, Lower Stated complaint: LLE PAIN Time Seen by Provider: 06/15/21 11:36 Source: patient Mode of arrival: ambulatory Limitations: no limitations History of Present Illness HPI narrative: Patient is an 81 year old female presenting to the emergency department today with left great toe pain. Patient states that she woke up this morning and her left great toe was red, swollen, and painful. Patient denies any dizziness, lightheadedness, abdominal pain, nausea, vomiting, fever, chills, blurry vision, double vision, loss of vision, chest pain, difficulty breathing, shortness of breath, back pain, night sweats, pain with urination, increased urinary frequency, increased urinary urgency, blood in her urine or stool, syncope or a near syncopal episode, recent trauma or falls, bowel incontinence, bladder incontinence, bowel retention, bladder retention, or any other complaints at this time. Patient denies any history of gout. Onset (ago): hour(s) Location: left (great toe) Radiation: non-radiation Severity: mild Severity scale (1-10): 4 Quality: burning and stabbing Pain Consistency: constant Relieving factors: none Exacerbating factors: movement Associated symptoms: denies other symptoms Treatments prior to arrival: none Related Data Home Medications Medication Instructions Recorded Confirmed sucralfate 100 mg/mL oral 1 g PO BEDTIME 11/21/19 05/22/21 suspension aspirin 81 mg tablet 81 mg PO DAILY 12/01/19 05/22/21 cholecalciferol (vitamin D3) 25 25 mcg PO DAILY 12/01/19 05/22/21 mcg (1,000 unit) capsule (Vitamin D3) dicyclomine 10 mg capsule 10 mg PO BID PRN 12/01/19 05/22/21 ferrous sulfate 325 mg (65 mg 325 mg PO DAILY 12/01/19 05/22/21 iron) tablet losartan 25 mg tablet 50 mg PO DAILY tab 03/15/21 05/22/21 Previous Rx's Medication Instructions Recorded PUREWICK #90 ea 04/25/20 clotrimazole 1 % topical cream See Rx Instructions TOPICAL BID 08/31/20 #45 g stair lift and ramp #1 ea 08/31/20 Accu-Chek Ruth Plus Meter #1 ea NS 09/02/20 (blood-glucose meter) Accu-Chek Ruth Plus test strp #100 ea NS 09/02/20 (blood sugar diagnostic) Accu-Chek Softclix Lancets #100 ea NS 09/02/20 (lancets) blood sugar diagnostic (OneTouch #100 ea 09/14/20 Ultra Test) blood-glucose meter (OneTouch #1 ea 09/14/20 Ultra2 Meter) lancets (OneTouch UltraSoft #100 ea 09/14/20 Lancets) blood-glucose meter (OneTouch #1 ea 09/16/20 UltraMini) fluticasone 500 mcg-salmeterol 50 1 inh INHALATION BID #60 ea 09/19/20 mcg/dose blistr powdr for inhalation Wheelchair Ramp #1 ea 10/06/20 Transfer Bench #1 ea 11/01/20 blood pressure monitor (Blood #1 ea 11/03/20 Pressure Kit) cyanocobalamin (vitamin B-12) 1,000 mcg IM Q4W 90 Days #4 ml 11/09/20 1,000 mcg/mL injection solution potassium chloride 10 mEq 10 meq PO BID #180 tab 12/05/20 tablet,extended release nitroglycerin 0.4 mg sublingual 0.4 mg SUBLINGUAL Q5M PRN 90 Days 01/02/21 tablet #25 tab meclizine 12.5 mg tablet 12.5 mg PO DAILY PRN #30 tab 01/08/21 tiotropium bromide 18 mcg capsule 1 cap INHALATION DAILY #90 ea 01/08/21 with inhalation device (Spiriva with HandiHaler) ipratropium 0.5 mg-albuterol 3 mg 3 ml INHALATION Q4-6H PRN 30 Days 01/18/21 (2.5 mg base)/3 mL nebulization #180 ml [facility] bed #1 ea 01/23/21 docusate sodium 100 mg capsule 100 mg PO BID PRN #60 cap 02/22/21 guaifenesin 600 mg tablet, 600 mg PO Q12H PRN #20 tab 03/03/21 extended release 12 hr (Mucinex) ascorbic acid (vitamin C) 500 mg 500 mg PO BID #180 tab 03/15/21 tablet atorvastatin 40 mg tablet 40 mg PO DAILY #90 tab 03/15/21 dexlansoprazole 30 mg 30 mg PO DAILY #90 cap 03/15/21 capsule,biphase delayed release (Dexilant) duloxetine 30 mg capsule,delayed 30 mg PO DAILY #90 cap 03/15/21 release ezetimibe 10 mg tablet 10 mg PO DAILY #90 tab 03/15/21 furosemide 40 mg tablet 40 mg PO BID #180 tab 03/15/21 levothyroxine 100 mcg tablet 100 mcg PO QAM #90 tab 03/15/21 Nebulizer supplies #3 ea 03/22/21 [facility] Bed #1 ea 03/22/21 diagnosis I50.32 semaglutide 1 mg/dose (4 mg/3 mL) 1.5 mg (1.125 mL) SUBCUT QWEEK 30 04/07/21 subcutaneous pen injector Days #5.625 ml cholestyramine-aspartame 4 gram 4 g PO QIDACHS #120 packet 04/28/21 oral powder for susp in a packet (Prevalite) ketoconazole 2 % shampoo 1 appl TOPICAL 2XW #120 ml 04/28/21 albuterol sulfate 2.5 mg (3 mL) INHALATION Q6H PRN 05/01/21 #450 ml apixaban 5 mg tablet (Eliquis) 5 mg PO BID 90 Days #180 tab 05/15/21 albuterol sulfate 90 mcg/actuation 2 puff PO Q4H PRN #8.5 ea 05/18/21 aerosol inhaler syringe with needle, safety 3 mL 1 ml TOPICAL Q4W #3 ea 05/22/21 25 gauge x 5/8 (BD Integra Syringe) carvedilol 25 mg tablet 25 mg PO BID 90 Days #180 tab 05/24/21 prednisone 20 mg tablet 20 mg PO DAILY 5 Days #5 tab 06/15/21 Allergies Allergy/AdvReac Type Severity Reaction Status Date / Time morphine [MORPHINE] Allergy Unknown RASH Verified 05/22/21 11:06 pregabalin [From LYRICA] Allergy Unknown NAUSEA, Verified 05/22/21 11:06 felt high on drugs Review of Systems Constitutional: Constitutional: Reports no additional constitutional complaints, Denies chills, Denies fever(s) and Denies night sweats Eyes: Eyes: Reports no additional eye complaints, Denies blurry vision, Denies change in vision, Denies diplopia, Denies eye discharge, Denies loss of vision and Denies eye pain ENT: Denies dizziness Cardiovascular: Cardiovascular: Reports no additional cardiovascular complaints, Denies chest pain, Denies lightheadedness, Denies Loss of Consciousness and Denies dyspnea Respiratory: Respiratory: Reports no additional respiratory complaints and Denies dyspnea Gastrointestinal: Gastrointestinal: Reports no additional gastrointestinal complaints, Denies abdominal pain, Denies melena, Denies hematochezia, Denies change in bowel habits and Denies change in stool character Comments: left great toe pain and swelling Genitourinary: Genitourinary: Denies hematuria, Denies urinary frequency, Denies dysuria, Denies urinary incontinence, Denies urinary hesitancy and Denies urinary urgency Musculoskeletal: Musculoskeletal: Reports no additional musculoskeletal complaints, Denies numbness and Denies tingling Neurologic: Denies dizziness, Denies loss of vision, Denies numbness and Denies tingling Psychiatric: Psychiatric: Reports no additional psychiatric complaints Endocrine: Endocrine: Reports no additional endocrine complaints Hematologic/Lymphatic: Hematologic/Lymphatic: Reports no additional hematologic/lymphatic complaints Allergic/Immunologic: Allergic/Immunologic: Reports no additional allergic/immunologic complaints [facility] Past Medical History Attestation statement: The following information was validated with the patient. 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 Diarrhea Diverticulitis DVT (deep venous thrombosis) Fibromyalgia GERD (gastroesophageal reflux disease) History of spinal stenosis HTN (hypertension) Hypercholesterolemia Hypothyroid Low back pain Lower extremity weakness Nasal congestion Obesity (BMI 30-39.9) Obstructive sleep apnea Otitis externa Paroxysmal atrial fibrillation Pernicious anemia Respiratory failure with hypoxia and hypercapnia Restrictive lung disease Spondylosis of lumbar spine Surgical History H/O angioplasty H/O cardiac catheterization History of arthroplasty of left shoulder Hx of appendectomy Hx of cholecystectomy S/P BREANN-BSO (total abdominal hysterectomy and bilateral salpingo-oophorectomy) Family History Family History Father Hypertension CVD (cardiovascular disease) Mother Colon cancer Sister Leukemia Sister Colon cancer Son Lung cancer Colon polyps Social History Social History Household Members: None Housing: Apartment Do you presently have visiting nurse or 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7 F 97.6 F 97.6 F Pulse Rate 94 97 90 Respiratory Rate 18 18 16 Blood Pressure 131/56 L 151/63 H 163/86 H Pulse Oximetry 98 99 99 BMI result Body Mass Index 38.0 Const General: cooperative, no acute distress, alert and awake Nutritional Appearance: well nourished Orientation/consciousness: patient oriented x3 Limitations: no limitations [facility] Head: Yes normal to inspection and Yes atraumatic Ears: hearing grossly normal bilaterally and external ears normal General nose exam: Normal external nose present, no nasal discharge noted and no epistaxis Face and sinus: Yes normal facial exam, No abrasion and No laceration Mouth: Normal oral and palatal mucosa present, no drooling and no muffled voice Eyes General: appearance normal, both eyes and all related structures Periorbital: periorbital findings normal Eyelids: Yes eyelids normal Conjunctivae: conjunctivae normal Pupils: Equal, round and reactive pupils present EOM: EOMs intact bilaterally Neck Neck: Yes normal visual inspection, Yes full ROM and Yes no lymphadenopathy Chest Chest palpation & inspection: normal inspection of the chest Resp Effort & Inspection: normal respiratory effort and able to speak in complete sentences Auscultation: clear to auscultation bilaterally Cardio Rate: regular rate Rhythm: regular rhythm GI Inspection: Yes normal to inspection Skin Other: warmth, erythema, and swelling to the left great toe Neuro General: patient oriented x3 and moves all extremities Cranial nerves: Yes Equal, round and reactive pupils present Cognition (Neuro): normal cognition Motor exam (neuro): 5/5 motor strength present throughout Sensory Exam: Normal double simultaneous stimulation for sensation Coordination: [id number] test normal Extrem General: Yes normal to inspection, Yes full ROM and Yes capillary refill normal Psych Appearance: grossly normal Mental Status: mental status grossly normal Affect: normal affect Attitude: cooperative Thought process: Normal thought process present Thought content: Normal thought content present Insight: Good insight present (Psych) Medical Decision Making MDM Narrative Medical decision making narrative: Patient is an 81 year old female presenting to the emergency department today with left great toe pain and swelling. Patient's physical exam showed erythema, swelling, and warmth to the left great toe but was otherwise unremarkable. Patient's physical exam findings were consistent with gout and did not appear cellulitic in nature. Patient's blood work was unremarkable. Patient's left foot x-ray showed no acute process. I explained my physical exam findings as well as all test results to the patient. I answered all questions asked by the patient. I stressed the importance of the patient taking her medication as prescribed. I stressed the importance of the patient following up with her primary care provider. I stressed the importance of the patient returning to the emergency department immediately if her symptoms were to worsen or if she were to develop any dizziness, shortness of breath, difficulty breathing, chest pain, blurry vision, loss of vision, nausea, vomiting, abdominal pain, fever, chills, back pain, or any other complaints. Patient verbalized agreement and understanding with this treatment plan and discharge. Differential Diagnosis Differential Diagnosis: gout Medical Records Medical records reviewed: Yes I reviewed the patient's medical records. Lab Data Lab results reviewed: Yes I reviewed the patient's lab results. Result diagrams: 06/15/21 12:42 06/15/21 14:18 Labs: Lab Results 06/15/21 06/15/21 06/15/21 Range/Units 12:42 12:42 14:18 WBC 9.2 (4.8-10.8) X10*3/uL RBC 4.30 (4.20-5.50) X10*6/uL Hgb 12.4 (12.0-16.0) g/dl Hct 39.4 (37.0-47.0) % MCV 91.6 (80.0-98.0) fL MCH 28.8 (27.0-33.0) pg MCHC 31.5 (31.0-35.0) g/dl RDW 13.5 (11.0-16.0) % Plt Count 268 D (160-400) X10*3/uL MPV 9.5 (9.4-12.3) fL Immature Gran % (Auto) 0.4 (0.0-0.4) % Neut % (Auto) 63.0 (45-73) % Lymph % (Auto) 27.1 (20-40) % Avery % (Auto) 8.7 (2-11) % Eos % (Auto) 0.5 (0-4) % Baso % (Auto) 0.3 (0-2) % Lymph # (Auto) 2.5 (1.2-4.9) X10*3/uL Avery # (Auto) 0.8 (0.1-1.2) X10*3/uL Eos # (Auto) 0.1 (0.0-0.4) X10*3/uL Baso # (Auto) 0.0 (0.0-0.2) X10*3/uL Abs Immat Gran (auto) 0.04 H (0.00-0.03) X10*3/uL Absolute Neuts (auto) 5.8 (2.0-8.3) x10*3/uL Absolute Nucleated RBC 0.000 (0.0-0.012) X10*3/uL Nucleated RBC % (auto) 0.0 (0.0-0.2) /100WBC ESR 40 H (0-20) MM/HR Sodium 143 (135-145) mmol/L Potassium 3.9 (3.3-5.1) mmol/L Chloride 105 (96-108) mmol/L Carbon Dioxide 30 H (22-29) mmol/L Anion Gap 12 (12-20) BUN 18 H (9-16) mg/dL Creatinine 0.86 (0.5-1.4) mg/dL Estim Creat Clear Calc 52.7 Estimated GFR > 60 Random Glucose 90 (60-115) mg/dL Calcium 9.2 (8.4-10.2) mg/dL Total Bilirubin 0.4 (0.0-1.0) mg/dL AST 16 (5-31) U/L ALT 10 (0-31) U/L Alkaline Phosphatase 147 H (39-117) U/L C-Reactive Protein 3.13 H (< or = 0.50) mg/dL Total Protein 6.2 L (6.5-8.0) g/dL Albumin 3.5 (3.5-5.0) g/dL Imaging Data Left foot x-ray: Attestation: I personally reviewed and interpreted this imaging study as follows: My impression: No acute process. Radiologist's impression: EXAMINATION: XR FOOT, LEFT CLINICAL INFORMATION: Great toe pain? COMPARISON: None? TECHNIQUE: AP, lateral, and oblique views of the left foot. FINDINGS: No acute fracture or dislocation.. Alignment is anatomic. Small marginal osteophytes along the first metatarsophalangeal joint. Moderate plantar calcaneal enthesophyte. XR/XR foot LT 2V IMPRESSION: No acute fracture or dislocation. Dictated By: Jeramie Chandra MD Signed By: Electronically signed by Jeramie Chandra MD 06/15/21 [id number] Venous US: Attestation: I personally reviewed and interpreted this imaging study as follows: Radiologist's impression: EXAMINATION:? US VENOUS ULTRASOUND WITH DOPPLER LOWER EXTREMITY, LEFT CLINICAL INFORMATION:? Left lower terminate pain COMPARISON:? None TECHNIQUE: Ultrasound of the deep veins is performed from the hip to the calf with compression sonography and color and pulse Doppler assessment. Spectral analysis with color-flow imaging is performed. FINDINGS: There is normal venous compression and respiratory variation and augmented flow. The visualized common femoral vein, superficial femoral vein, profunda femoral vein, popliteal vein, and the trifurcation region shows no evidence of deep venous thrombosis. ? There is no significant popliteal fossa cyst. US/US venous duplex LE LT IMPRESSION: No acute DVT demonstrated in the left lower extremity. Dictated By: Juan Camacho MD Signed By: Electronically signed by Juan Camacho MD 06/15/21 125 Discharge Plan Discharge Clinical Impression: Gout Patient Disposition: Home, Self-Care Instructions: Gout (ED) Additional Instructions: Follow up with your primary care provider. Return to the emergency department immediately if your symptoms worsen or if you develop any dizziness, shortness of breath, difficulty breathing, chest pain, blurry vision, loss of vision, nausea, vomiting, abdominal pain, fever, chills, back pain, or any other complaints. Prescriptions: New prednisone 20 mg tablet 20 mg PO DAILY 5 Days Qty: 5 0RF No Action (DME) PUREWICK See Rx Instructions .Route .MEDSUPPLY Qty: 90 3RF Rx Instructions: As directed (DME) stair lift and ramp See Rx Instructions .Route .MEDSUPPLY Qty: 1 0RF Rx Instructions: As directed clotrimazole 1 % cream See Rx Instructions topical BID Qty: 45 11RF Rx Instructions: apply to affected area topical 2 times a day; (DME) lancets [Accu-Chek Softclix Lancets] Misc See Rx Instructions .ROUTE .MEDSUPPLY Qty: 100 3RF Rx Instructions: As directed daily (DME) blood-glucose meter [Accu-Chek Ruth Plus Meter] Misc See Rx Instructions .[facility] 0RF Rx Instructions: As directed test blood glucose daily (DME) Accu-Chek Ruth Plus test strp Strip See Rx Instructions .ROUTE .[facility] Qty: 100 3RF Rx Instructions: test blood glucose daily (DME) OneTouch Ultra Test Strip See Rx Instructions .Route Qty: 100 3RF Rx Instructions: As directed test blood glucose daily (DME) blood-glucose meter [OneTouch Ultra2 Meter] Kit See Rx Instructions .Route Qty: 1 0RF Rx Instructions: As directed (DME) lancets [OneTouch UltraSoft Lancets] Misc See Rx Instructions .Route Qty: 100 3RF Rx Instructions: As directed test blood glucose daily (DME) blood-glucose meter [OneTouch UltraMini] Kit See Rx Instructions .Route Qty: 1 0RF Rx Instructions: As directed fluticasone propion-salmeterol 500-50 mcg/dose blister with device 1 inh inhalation BID Qty: 60 11RF (DME) Wheelchair Ramp See Rx Instructions .Route .MEDSUPPLY Qty: 1 0RF Rx Instructions: As directed (DME) Transfer Bench Misc See Rx Instructions .Route Qty: 1 0RF Rx Instructions: As directed for bath tub (DME) blood pressure monitor [Blood Pressure Kit] Kit See Rx Instructions .Route Qty: 1 0RF Rx Instructions: As directed cyanocobalamin (vitamin B-12) 1,000 mcg/mL solution 1,000 mcg IM Q4W 90 Days Qty: 4 5RF potassium chloride 10 mEq tablet extended release 10 meq PO BID Qty: 180 3RF nitroglycerin 0.4 mg tablet, sublingual 0.4 mg sublingual Q5M PRN (Reason: for angina) 90 Days Qty: 25 0RF meclizine 12.5 mg tablet 12.5 mg PO DAILY PRN (Reason: for motion sickness) Qty: 30 5RF Spiriva with HandiHaler 18 mcg capsule, w/inhalation device 1 cap inhalation DAILY Qty: 90 3RF ipratropium-albuterol 0.5 mg-3 mg(2.5 mg base)/3 mL solution for nebulization 3 ml inhalation Q4-6H PRN (Reason: wheezing.DYSPNEA) 30 Days Qty: 180 3RF docusate sodium 100 mg capsule 100 mg PO BID PRN (Reason: consti) Qty: 60 11RF guaifenesin [Mucinex] 600 mg tablet extended release 12hr 600 mg PO Q12H PRN (Reason: congestion) Qty: 20 0RF furosemide 40 mg tablet 40 mg PO BID Qty: 180 3RF levothyroxine 100 mcg tablet 100 mcg PO QAM Qty: 90 3RF duloxetine 30 mg capsule,delayed release(DR/EC) 30 mg PO DAILY Qty: 90 2RF atorvastatin 40 mg tablet 40 mg PO DAILY Qty: 90 3RF ezetimibe 10 mg tablet 10 mg PO DAILY Qty: 90 3RF Dexilant 30 mg capsule,biphase delayed releas 30 mg PO DAILY Qty: 90 3RF ascorbic acid (vitamin C) 500 mg tablet 500 mg PO BID Qty: 180 3RF (DME) [facility] Bed diagnosis I50.32 See Rx Instructions .Route .MEDSUPPLY Qty: 1 0RF Rx Instructions: As directed, GERMAN 99 (DME) Nebulizer supplies See Rx Instructions .Route .MEDSUPPLY Qty: 3 3RF Rx Instructions: As directed semaglutide 1 mg/dose (4 mg/3 mL) pen injector 1.5 mg subcut QWEEK 30 Days Qty: 5.625 11RF Rx Instructions: for 4 doses albuterol sulfate 2.5 mg /3 mL (0.083 %) solution for nebulization 2.5 mg inhalation Q6H PRN (Reason: for wheezing) Qty: 450 1RF Eliquis 5 mg tablet 5 mg PO BID 90 Days Qty: 180 3RF albuterol sulfate 90 mcg/actuation HFA aerosol inhaler 2 puff PO Q4H PRN (Reason: for respiratory distress) Qty: 8.5 0RF BD Integra Syringe 3 mL 25 gauge x 5/8 syringe 1 ml topical Q4W Qty: 3 12RF carvedilol 25 mg tablet 25 mg PO BID 90 Days Qty: 180 2RF ferrous sulfate 325 mg (65 mg iron) Tablet 325 mg PO DAILY 0RF aspirin 81 mg Tablet 81 mg PO DAILY 0RF cholecalciferol (vitamin D3) [Vitamin D3] 25 mcg (1,000 unit) Capsule 25 mcg PO DAILY 0RF dicyclomine 10 mg Capsule 10 mg PO BID PRN (Reason: Abdominal Pain) 0RF cholestyramine-aspartame [Prevalite] 4 gram powder in packet 4 g PO QIDACHS Qty: 120 1RF Rx Instructions: no meds 1 hr before/4-6 hr after dose ketoconazole 2 % shampoo 1 appl topical 2XW Qty: 120 0RF (DME) hospital bed See Rx Instructions .Route .MEDSUPPLY Qty: 1 0RF Rx Instructions: As directed sucralfate 100 mg/mL suspension 1 g PO BEDTIME 0RF losartan 25 mg tablet 50 mg PO DAILY 0RF Referrals: Po,Chantal Albrecht MD [Primary Care Provider] - (Follow up with your PCP. ) Print Language: German
[2021-06-15 12:46] LABS: MANUAL DIFF FLAG NO
[2021-06-15 12:51] VITALS: BP 151/63; PULSE 97; RESP 18; TEMP 36.4; O2SAT 99
[2021-06-15 12:53] LABS: Basophils Percent Auto 0.3 % (0-2); Eosinophils Absolute Auto 0.1 X10*3/uL (0.0-0.4); Eosinophils Percent Auto 0.5 % (0-4); Hematocrit 39.4 % (37.0-47.0); Hemoglobin 12.4 g/dl (12.0-16.0); Imm Gran Abs Auto 0.04 X10*3/uL (0.00-0.03); Imm Gran Pct Auto 0.4 % (0.0-0.4); Lymphocytes Absolute Auto 2.5 X10*3/uL (1.2-4.9); Lymphocytes Percent Auto 27.1 % (20-40); Mean Corpuscular HGB Conc 31.5 g/dl (31.0-35.0); Mean Corpuscular Hemoglobin 28.8 pg (27.0-33.0); Mean Corpuscular Volume 91.6 fL (80.0-98.0); Mean Platelet Volume 9.5 fL (9.4-12.3); Monocytes Absolute Auto 0.8 X10*3/uL (0.1-1.2); Monocytes Percent Auto 8.7 % (2-11); Neutrophils Absolute Auto 5.8 x10*3/uL (2.0-8.3); Platelet Count 268 X10*3/uL (160-400); Red Cell Distribution Width 13.5 % (11.0-16.0); White Blood Count 9.2 X10*3/uL (4.8-10.8)
--- NOTE | 2021-06-15 13:11 | PC.NURSE ---
n change in assessment. continues to complain of pain. provider approached for pain meds left toe red, inflammed, tender, elevated.
[2021-06-15 14:14] LABS: Erythrocyte Sedimentation Rate 40 MM/HR (0-20)
[2021-06-15] MEDS: Indomethacin 25 MG CAPSULE PO (14:44)
[2021-06-15 14:46] LABS: Alanine Aminotransferase 10 U/L (0-31); Albumin Level 3.5 g/dL (3.5-5.0); Alkaline Phosphatase 147 U/L (39-117); Anion Gap 12 (12-20); Aspartate Amino Transferase 16 U/L (5-31); Bilirubin Total 0.4 mg/dL (0.0-1.0); Blood Urea Nitrogen 18 mg/dL (9-16); C Reactive Protein 3.13 mg/dL (< or = 0.50); Calcium 9.2 mg/dL (8.4-10.2); Carbon Dioxide 30 mmol/L (22-29); Chloride 105 mmol/L (96-108); Creatinine Clr Calc Pharmacy 52.7; Estimated Glomerular Filt Rate > 60; Glucose Random 90 mg/dL (60-115); Potassium 3.9 mmol/L (3.3-5.1); Sodium 143 mmol/L (135-145); Total Protein 6.2 g/dL (6.5-8.0)
[2021-06-15 15:01] VITALS: BP 163/86; PULSE 90; RESP 16; TEMP 36.4; O2SAT 99
[2021-06-15 18:00] VITALS: BP 158/60; PULSE 85; RESP 16; TEMP 36.4; O2SAT 99
[2021-06-15] MEDS: predniSONE 20 MG TABLET 40 MG PO (18:04)
== END 2021-06-15 18:12 | disposition home or self-care (01) ==
PROVIDERS: Physician Assistant Medical; Emergency Provider Internal Medicine; PCP Internal Medicine
DX: M10.9 Gout, unspecified (principal); M79.605 Pain in left leg; I10 Essential (primary) hypertension; I25.10 Atherosclerotic heart disease of native coronary artery without angina pectoris; I48.0 Paroxysmal atrial fibrillation; J44.9 Chronic obstructive pulmonary disease, unspecified; Z86.718 Personal history of other venous thrombosis and embolism
CPT/HCPCS: 36415; 73620; 80053; 85025; 85652; 86140; 93971; 99284

== ENCOUNTER → 2021-06-29 11:07 | Outpatient (REF) | payer OTHER, SELFPAY ==
--- NOTE | 2021-06-29 11:14 | HM_ITS ---
* Total monitoring time 7 days and 2 hours. * Underlying rhythm is sinus. Average rate 103/Min. Range 86 to 128/Min. About 59% of the time, rate > 100/Min. * No atrial fibrillation or flutter or AV blocks or pauses. * Frequent supraventricular ectopy. [place] of 6.6%. * Frequent ventricular ectopy. 2 morphologies. 89 couplets. 2 episodes. Longest run 4 beats. Overall burden 2.75%. * No patient events. MTDD
== END ==
LOC: HO.CARD 11:07
PROVIDERS: PCP Internal Medicine; Visit Provider Internal Medicine
DX: I48.0 Paroxysmal atrial fibrillation (principal); R00.1 Bradycardia, unspecified; R00.2 Palpitations
CPT/HCPCS: 93246

== ENCOUNTER 2021-07-21 11:09 | Outpatient (REF) | payer OTHER, SELFPAY ==
[2021-07-21 11:36] LABS: MANUAL DIFF FLAG NO
[2021-07-21 12:06] LABS: Basophils Percent Auto 0.4 % (0-2); Eosinophils Percent Auto 0.5 % (0-4); Hematocrit 36.9 % (37.0-47.0); Hemoglobin 11.6 g/dl (12.0-16.0); Imm Gran Abs Auto 0.05 X10*3/uL (0.00-0.03); Imm Gran Pct Auto 0.6 % (0.0-0.4); Lymphocytes Absolute Auto 2.3 X10*3/uL (1.2-4.9); Lymphocytes Percent Auto 28.2 % (20-40); Mean Corpuscular HGB Conc 31.4 g/dl (31.0-35.0); Mean Corpuscular Hemoglobin 27.7 pg (27.0-33.0); Mean Corpuscular Volume 88.1 fL (80.0-98.0); Mean Platelet Volume 9.5 fL (9.4-12.3); Monocytes Absolute Auto 0.7 X10*3/uL (0.1-1.2); Monocytes Percent Auto 8.3 % (2-11); Neutrophils Absolute Auto 5.1 x10*3/uL (2.0-8.3); Platelet Count 323 X10*3/uL (160-400); Red Blood Count 4.19 X10*6/uL (4.20-5.50); Red Cell Distribution Width 13.3 % (11.0-16.0); White Blood Count 8.2 X10*3/uL (4.8-10.8)
[2021-07-21 12:32] LABS: Alanine Aminotransferase 13 U/L (0-31); Albumin Level 3.6 g/dL (3.5-5.0); Alkaline Phosphatase 161 U/L (39-117); Anion Gap 14 (12-20); Aspartate Amino Transferase 16 U/L (5-31); Bilirubin Total 0.7 mg/dL (0.0-1.0); Blood Urea Nitrogen 14 mg/dL (9-16); Calcium 9.2 mg/dL (8.4-10.2); Carbon Dioxide 27 mmol/L (22-29); Chloride 106 mmol/L (96-108); Cholesterol 201 mg/dL; Estimated Glomerular Filt Rate 57; Glucose Random 89 mg/dL (60-115); HDL Cholesterol 37 mg/dL; LDL Cholesterol Calculated 126 mg/dl; Potassium 4.1 mmol/L (3.3-5.1); Sodium 143 mmol/L (135-145); Total Protein 6.5 g/dL (6.5-8.0); Triglycerides 194 mg/dL
[2021-07-21 12:39] LABS: B Type Natriuretic Peptide 341 pg/mL (<100)
[2021-07-21 12:49] LABS: Microalbum/Creatinine Ratio Ur 12.3 ug/mg cr
[2021-07-21 12:54] LABS: Free T4 (Free Thyroxine) 0.98 ng/dL (0.71-1.85); Thyroid Stimulating Hormone 4.56 uIU/mL (0.32-4.0); Vitamin D 25-OH Total 16.1 ng/mL (>30)
[2021-07-21 12:58] LABS: Estimated Average Glucose 108 mg/dL; Hemoglobin A1c % 5.4 %
[2021-07-21 13:13] LABS: Folate 12.1 ng/mL (> or = 4.0)
[2021-07-21 14:23] LABS: Vitamin B12 1105 pg/mL (200-900)
== END 2021-07-21 11:10 | disposition home or self-care (01) ==
LOC: HO.LAB 11:09
PROVIDERS: PCP Internal Medicine; Visit Provider Internal Medicine
DX: E11.65 Type 2 diabetes mellitus with hyperglycemia (principal); E03.9 Hypothyroidism, unspecified; I50.32 Chronic diastolic (congestive) heart failure; E78.00 Pure hypercholesterolemia, unspecified; I25.10 Atherosclerotic heart disease of native coronary artery without angina pectoris; M81.0 Age-related osteoporosis without current pathological fracture
CPT/HCPCS: 36415; 80053; 80061; 82043; 82306; 82607; 82746; 83036; 83880; 84439; 84443; 85025

== ENCOUNTER 2021-08-07 09:39 | Outpatient (REF) | payer OTHER, SELFPAY ==
[2021-08-07 11:18] LABS: Free T4 (Free Thyroxine) 0.95 ng/dL (0.71-1.85); Thyroid Stimulating Hormone 3.68 uIU/mL (0.32-4.0)
[2021-08-07 11:23] LABS: Alanine Aminotransferase 11 U/L (0-31); Albumin Level 3.6 g/dL (3.5-5.0); Alkaline Phosphatase 163 U/L (39-117); Anion Gap 14 (12-20); Aspartate Amino Transferase 16 U/L (5-31); Bilirubin Total 0.4 mg/dL (0.0-1.0); Blood Urea Nitrogen 17 mg/dL (9-16); Calcium 9.1 mg/dL (8.4-10.2); Carbon Dioxide 27 mmol/L (22-29); Chloride 104 mmol/L (96-108); Cholesterol 195 mg/dL; Estimated Glomerular Filt Rate > 60; Glucose Random 94 mg/dL (60-115); HDL Cholesterol 36 mg/dL; LDL Cholesterol Calculated 119 mg/dl; Potassium 3.8 mmol/L (3.3-5.1); Sodium 141 mmol/L (135-145); Total Protein 6.4 g/dL (6.5-8.0); Triglycerides 202 mg/dL
== END 2021-08-07 09:40 | disposition home or self-care (01) ==
LOC: HO.LAB 09:39
PROVIDERS: PCP Internal Medicine; Visit Provider Internal Medicine
DX: E78.00 Pure hypercholesterolemia, unspecified (principal); R42 Dizziness and giddiness
CPT/HCPCS: 36415; 80053; 80061; 84439; 84443

== ENCOUNTER 2021-08-26 12:54 | Inpatient (IN) | payer OTHER, SELFPAY ==
[2021-08-26] VITALS (9 sets, daily range): BP systolic 74–146; BP diastolic 41–77; PULSE 64–83; RESP 12–22; TEMP 36.5–37.1; O2SAT 95–100; BMI 37.4
--- NOTE | ~2021-08-26 | XR_ITS ---
EXAMINATION: XR CHEST CLINICAL INFORMATION: Weakness COMPARISON: Chest radiograph 02/19/2021 TECHNIQUE: 2 views of the chest were obtained. FINDINGS: Clear lungs. No pleural effusion or pneumothorax. Cardiac silhouette is mildly enlarged unchanged from prior. Left shoulder arthroplasty. Mediastinal surgical clips. XR/XR chest 2V IMPRESSION: Clear lungs.
--- NOTE | ~2021-08-26 | CT_ITS ---
EXAMINATION: CT HEAD WITHOUT CONTRAST CLINICAL INFORMATION: Dizziness COMPARISON: Previous head CT most recent 08/26/2021 TECHNIQUE: Contiguous axial imaging was performed from the skull base to vertex without intravenous administration of contrast. This CT examination was performed using dose optimization techniques as appropriate, variously including the following: *Automated exposure control *Adjustment of mA and/or kV according to patient size (this includes techniques or standardized protocols for targeted exams where dose is matched to indication/reason for exam; i.e. extremities or head) *Use of iterative reconstruction technique DLP: 654 mGy-cm FINDINGS: There is no evidence of an extra-axial collection. There is no evidence of intra-axial or extra-axial hemorrhage. Ventricles and extra-axial CSF spaces are appropriate. There is nonspecific periventricular white matter disease. No mass, mass effect or infarct is seen. There is evidence of atherosclerotic disease. No skull fracture is seen. There are mild inflammatory changes seen in the floor right maxillary sinus. The paranasal sinuses mastoid air cells and middle ears are otherwise clear. CT/CT head/brain wo con IMPRESSION: No acute findings.
--- NOTE | ~2021-08-26 | MR_ITS ---
EXAMINATION: MR BRAIN WITHOUT CONTRAST CLINICAL INFORMATION: Dizziness. COMPARISON: CT angiogram from 08/28/2021. TECHNIQUE: Multiplanar, multisequence imaging of the brain was performed without contrast. Limited study with motion artifacts. FINDINGS: No diffusion abnormalities are identified to suggest an acute infarct. The ventricles are normal in size. No mass effect or midline shift is seen. Yczy-cp-axenjrrx chronic white matter microangiopathic changes are noted. No extra-axial fluid collections are seen. Small chronic lacunar infarcts are noted in the right cerebellar hemisphere. The ventral pontine distortion is again evident due to dolichoectasia of the basilar artery. The gradient refocused acquisition is normal. The craniovertebral junction, marrow signal, and midline structures are normal. The dural venous sinus flow voids are maintained. There are moderate bilateral mastoid effusions. Mild ethmoid sinus mucosal thickening is noted with a small independent fluid level in the right sphenoid sinus cavity. The major intracranial flow voids at the level of the [place] are preserved. 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 Additional high-grade stenosis is partially visualized in the proximal intradural left vertebral artery with slow vascular flow phenomenon in the cervical V3 segment. Reversal of the normal cervical lordosis is evident with multilevel spondylosis. MR/MR head/brain wo con IMPRESSION: No acute intracranial process. Ilrt-ou-kdsndtez chronic white matter microangiopathy. 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 High-grade stenosis with poor flow-related signal in the intradural left vertebral artery and slow flow phenomenon in the upper cervical V3 segment. 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 Nonspecific moderate bilateral mastoid effusions. Small fluid level in the dependent right sphenoid sinus cavity.
--- NOTE | ~2021-08-26 | XR_ITS ---
EXAMINATION: XR ABDOMEN KUB CLINICAL INDICATION: Pre-MRI. COMPARISON: None TECHNIQUE: AP of the abdomen. FINDINGS: There are surgical clips seen in the left medial lower chest in the region of the distal thoracic esophagus and GE junction. No other surgical clips are seen. Bowel gas pattern is normal. There is no free air. There is scoliosis and degenerative change of the spine. XR/XR KUB IMPRESSION: Surgical clips in the left medial lower chest in the region of the distal thoracic esophagus and GE junction.
--- NOTE | ~2021-08-26 | CT_ITS ---
EXAMINATION: CT head/brain wo con CLINICAL INFORMATION: Reason for Exam dizziness COMPARISON: CT brain 12/01/2019 TECHNIQUE: Contiguous axial imaging was performed from the skull base to vertex without intravenous contrast. Sagittal and coronal reformatted images were obtained. This CT examination was performed using dose optimization techniques as appropriate, variously including the following: * Automated exposure control * Adjustment of mA and/or kV according to patient size (this includes techniques or standardized protocols for targeted exams where dose is matched to indication/reason for exam; i.e. extremities or head) Use of iterative reconstruction technique DLP: 699 mGy-cm FINDINGS: No acute osseous or soft tissue abnormality. Bilateral partial mastoid effusions. No bony erosion. There is no evidence of acute intracranial hemorrhage or territorial infarction. No abnormal mass effect or midline shift is seen. [place] to white matter differentiation is well preserved. No extra-axial fluid collections are identified. No hydrocephalus. Patchy periventricular and deep white matter hypoattenuation is consistent with moderate small vessel ischemic changes. CT/CT head/brain wo con IMPRESSION: 1. No acute intracranial abnormality.
--- NOTE | ~2021-08-26 | CT_ITS ---
EXAMINATION: CT ANGIOGRAM NECK WITH CONTRAST CT ANGIOGRAM BRAIN WITH CONTRAST CLINICAL INFORMATION: Dizziness. COMPARISON: None. TECHNIQUE: Test bolus sequences followed by intravenous administration 80 mL of Omnipaque 350. Helical imaging was performed in the axial plane from the thoracic inlet to the skull vertex. Delayed postcontrast imaging of the head was also performed. The data was processed at the process safety engineering technologist workstation for generation of MIP sequences. Angled MIPs and volume rendered reformatted images were also generated at an offline 3D workstation. Stenoses are assessed in accordance with NASCET criteria unless otherwise indicated. This CT examination was performed using dose optimization techniques as appropriate, variously including the following: *Automated exposure control *Adjustment of mA and/or kV according to patient size (this includes techniques or standardized protocols for targeted exams where dose is matched to indication/reason for exam; i.e. extremities or head) *Use of iterative reconstruction technique DLP: 1421 mGy-cm FINDINGS: Head CT: There is no intracranial hemorrhage, extra-axial collection, mass effect, or territorial infarction. Hypoattenuation within the cerebral white matter most likely reflects sequela of chronic microangiopathy. The ventricles and sulci are commensurate. No hydrocephalus is seen. The dural venous sinuses appear normally opacified. The extracranial structures are unremarkable. Neck CTA: The left vertebral artery appears occluded from its origin but reconstitutes at the V3 segment. The right vertebral artery is normal in course and caliber. The aortic arch demonstrates atheromatous calcifications. There is focal mild to moderate stenosis of the left common carotid artery origin. The common carotid arteries demonstrate atheromatous calcifications with a retropharyngeal course. There is mild stenosis of the proximal left internal carotid artery estimated as less than 50%. There is no significant stenosis of the proximal right internal carotid artery. Head CTA: Significant atheromatous changes are noted at the bilateral carotid siphons resulting moderate to severe stenosis of the right paraclinoid segment and mild stenosis of the left paraclinoid segment. No large vessel occlusion is seen. The ACAs and MCAs are patent. The intradural left vertebral artery reconstitutes but with decreased contrast opacification compared with the contralateral side. Significant atheromatous calcifications are seen along the intradural left vertebral artery. There is focal high-grade stenosis of the left vertebral basilar junction. The right vertebral artery is patent and supplies the basilar artery which is patent. There is -type origin the left BUSINESS SERVICES COORDINATOR. There is an aneurysm projecting inferiorly from the right MCA bifurcation measuring up to 4.6 mm as seen on series 6 image 337. Non-vascular findings: There is emphysema within the upper lungs. There is no consolidation. CT/CT angio head neck IMPRESSION: No intracranial hemorrhage or territorial infarction. 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 Right vertebral artery and basilar artery are patent. 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 This critical result was discussed with Dr. Javier on 08/28/2021 10:20 AM, and it was ascertained that the content and urgency of the report was understood at the time of direct communication.
--- NOTE | 2021-08-26 13:11 | ECG_ITS ---
Test Reason : SOB Blood Pressure : / mmHG Vent. Rate : 075 BPM Atrial Rate : 075 BPM P-R Int : 228 ms QRS Dur : 090 ms QT Int : 428 ms P-R-T Axes : 089 047 121 degrees QTc Int : 477 ms Sinus rhythm with 1st degree A-V block with Premature atrial complexes Septal infarct , age undetermined Abnormal ECG When compared with ECG of 19-FEB-2021 11:55, VT interval has increased Nonspecific T wave abnormality now evident in Inferior leads Referred By: Generic ED Physician Electronically Signed By:Adelfo Anthony
--- NOTE | 2021-08-26 13:40 | ED.DIZZY ---
HPI - Dizziness General Chief Complaint: Dizziness Stated Complaint: dizziness Time Seen by Provider: 08/26/21 13:17 Source: patient and EMS Mode of arrival: EMS Limitations: no limitations History of Present Illness HPI Narrative: 81-year-old female type 2 diabetes, renal insufficiency, COPD, CAD, HTN, CRISTA, hypertension, CHF, Afib on eliquis who presents with reports of several hours of weakness, dizziness states I feel like I am going to pass out with nausea. 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 Patient denies any headache, vision changes, vomiting, chest pain, palpitations. Patient is oxygen dependent with a history of COPD and reports chronic shortness of breath but this is unchanged from previous. She does take several medications for blood pressure and took all of her home medications this morning Related Data Home Medications Medication Instructions Recorded Confirmed sucralfate 100 mg/mL oral 1 g PO BEDTIME 11/21/19 08/26/21 suspension aspirin 81 mg tablet 81 mg PO DAILY 12/01/19 08/26/21 cholecalciferol (vitamin D3) 25 25 mcg PO DAILY 12/01/19 08/26/21 mcg (1,000 unit) capsule (Vitamin D3) dicyclomine 10 mg capsule 10 - 20 mg PO QID PRN Abdominal 12/01/19 08/26/21 Pain ferrous sulfate 325 mg (65 mg 325 mg PO DAILY 12/01/19 08/26/21 iron) tablet diltiazem HCl 120 mg 1 cap PO DAILY 08/26/21 08/26/21 capsule,extended release 24 hr, controlled (DILT-XR) Previous Rx's Medication Instructions Recorded PUREWICK #90 ea 04/25/20 clotrimazole 1 % topical cream See Rx Instructions topical BID 08/31/20 #45 grams stair lift and ramp #1 ea 08/31/20 Accu-Chek Ruth Plus Meter #1 ea 09/02/20 (blood-glucose meter) Accu-Chek Ruth Plus test strp #100 ea 09/02/20 (blood sugar diagnostic) Accu-Chek Softclix Lancets #100 ea 09/02/20 (lancets) blood-glucose meter (OneTouch #1 ea 09/14/20 Ultra2 Meter) lancets (OneTouch UltraSoft #100 ea 09/14/20 Lancets) blood-glucose meter (OneTouch #1 ea 09/16/20 UltraMini) fluticasone 500 mcg-salmeterol 50 1 inh inhalation BID #60 ea 09/19/20 mcg/dose blistr powdr for inhalation Wheelchair Ramp #1 ea 10/06/20 Transfer Bench #1 ea 11/01/20 blood pressure monitor (Blood #1 ea 11/03/20 Pressure Kit) cyanocobalamin (vitamin B-12) 1,000 mcg IM Q4W 90 days #4 mL 11/09/20 1,000 mcg/mL injection solution potassium chloride 10 mEq 10 meq PO BID #180 tabs 12/05/20 tablet,extended release nitroglycerin 0.4 mg sublingual 0.4 mg sublingual Q5M PRN for 01/02/21 tablet angina 90 days #25 tabs meclizine 12.5 mg tablet 12.5 mg PO DAILY PRN for motion 01/08/21 sickness #30 tabs tiotropium bromide 18 mcg capsule 1 cap inhalation DAILY #90 ea 01/08/21 with inhalation device (Spiriva with HandiHaler) hospital bed #1 ea 01/23/21 docusate sodium 100 mg capsule 100 mg PO BID PRN consti #60 caps 02/22/21 guaifenesin 600 mg tablet, 600 mg PO Q12H PRN congestion #20 03/03/21 extended release 12 hr (Mucinex) tabs ascorbic acid (vitamin C) 500 mg 500 mg PO BID #180 tabs 03/15/21 tablet atorvastatin 40 mg tablet 40 mg PO DAILY #90 tabs 03/15/21 dexlansoprazole 30 mg 30 mg PO DAILY #90 caps 03/15/21 capsule,biphase delayed release (Dexilant) duloxetine 30 mg capsule,delayed 30 mg PO DAILY #90 caps 03/15/21 release ezetimibe 10 mg tablet 10 mg PO DAILY #90 tabs 03/15/21 furosemide 40 mg tablet 40 mg PO BID #180 tabs 03/15/21 levothyroxine 100 mcg tablet 100 mcg PO QAM #90 tabs 03/15/21 Nebulizer supplies #3 ea 03/22/21 Semi Electric Hospital Bed #1 ea 03/22/21 diagnosis I50.32 semaglutide 1 mg/dose (4 mg/3 mL) 1.5 mg (1.125 mL) subcut QWEEK 30 04/07/21 subcutaneous pen injector days #5.625 mL cholestyramine-aspartame 4 gram 4 g PO QIDACHS #120 packets 04/28/21 oral powder for susp in a packet (Prevalite) albuterol sulfate 2.5 mg (3 mL) inhalation Q6H PRN 05/01/21 for wheezing #450 mL apixaban 5 mg tablet (Eliquis) 5 mg PO BID 90 days #180 tabs 05/15/21 blood sugar diagnostic (OneTouch #100 strips 06/20/21 Ultra Test) losartan 50 mg tablet 50 mg PO DAILY 90 days #90 tabs 06/22/21 ipratropium 0.5 mg-albuterol 3 mg 3 ml inhalation Q4-6H PRN for 07/04/21 (2.5 mg base)/3 mL nebulization wheezing #180 mL soln carvedilol 25 mg tablet 25 mg PO BID 90 days #180 tabs 07/07/21 albuterol sulfate 90 mcg/actuation 2 puff PO Q4H PRN for respiratory 08/01/21 aerosol inhaler distress #8.5 ea meloxicam 7.5 mg tablet 7.5 mg PO DAILY #20 tabs 08/18/21 Allergies Allergy/AdvReac Type Severity Reaction Status Date / Time morphine [MORPHINE] Allergy Unknown RASH Verified 08/03/21 11:19 pregabalin [From LYRICA] Allergy Unknown NAUSEA, Verified 08/03/21 11:19 felt high on drugs Review of Systems Review of Systems: Yes all other systems are reviewed and are negative Constitutional: Constitutional: Reports no additional constitutional complaints, Denies body ache(s), Denies chills, Denies fever(s), Denies headache(s) and Reports weakness Eyes: Eyes: Reports no additional eye complaints and Denies change in vision ENT: Reports system reviewed and no additional complaints, except as documented, Reports dizziness, Denies headache(s), Denies nasal congestion, Denies nasal discharge and Denies neck pain Cardiovascular: Cardiovascular: Reports no additional cardiovascular complaints, Denies chest pain, Denies leg edema and Denies dyspnea Respiratory: Respiratory: Reports no additional respiratory complaints, Denies cough and Denies dyspnea Gastrointestinal: Gastrointestinal: Reports no additional gastrointestinal complaints, Denies abdominal pain, Denies diarrhea, Reports nausea and Denies vomiting Genitourinary: Genitourinary: Reports no additional female genitourinary complaints and Denies urinary incontinence Musculoskeletal: Musculoskeletal: Reports no additional musculoskeletal complaints, Denies back pain, Denies arthralgias, Denies joint swelling, Denies neck pain, Denies numbness and Denies tingling Integumentary/Breasts: Skin/Breast: Reports system reviewed and no additional complaints, except as docu and Denies rash Neurologic: Reports system reviewed and no additional complaints, except as documented, Denies Abnormal speech present, Reports dizziness, Denies headache(s), Denies numbness, Denies tingling and Reports weakness PMFSH Past Medical History Attestation statement: The following information was validated with the patient. 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 Diarrhea Diverticulitis DVT (deep venous thrombosis) Fibromyalgia GERD (gastroesophageal reflux disease) History of spinal stenosis HTN (hypertension) Hypercholesterolemia Hypothyroid Low back pain Lower extremity weakness Nasal congestion Obesity (BMI 30-39.9) Obstructive sleep apnea Otitis externa Paroxysmal atrial fibrillation Pernicious anemia Respiratory failure with hypoxia and hypercapnia Restrictive lung disease Spondylosis of lumbar spine Surgical History H/O angioplasty H/O cardiac catheterization History of arthroplasty of left shoulder Hx of appendectomy Hx of cholecystectomy S/P BREANN-BSO (total abdominal hysterectomy and bilateral salpingo-oophorectomy) Family History Family History Father Hypertension CVD (cardiovascular disease) Mother Colon cancer Sister Leukemia Sister Colon cancer Son Lung cancer Colon polyps Social History Social History Household Members: None Housing: Apartment Do you presently have visiting nurse or 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 home 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) Alcohol intake: never Patient Tobacco Use Status: Former Tobacco user Tobacco use type: Cigarette Years Smoked: stopped 2009 e-Cigarette/Vaping Use: Never Used Second Hand Smoke Exposure: No Advance Directives: No Advance Directives Information Provided: Yes service: No Current occupational status: retired Current occupational exposures/hazards: No Cognitive needs: No Hearing needs: No Vision needs: Yes Physical Exam Vital Signs: Vital Signs: Last Vital Signs Temp 98.7 F 08/26/21 19:08 Pulse 81 08/26/21 19:08 Resp 15 08/26/21 19:08 BP 141/77 H 08/26/21 19:08 Pulse Ox 99 08/26/21 19:08 O2 Del Method 08/26/21 19:08 O2 Flow Rate 3 08/26/21 17:49 Oxygen Flow Rate 2 08/26/21 13:05 BMI result Body Mass Index 37.4 Const: General: cooperative, healthy appearing, comfortable and no acute distress Orientation/consciousness: patient oriented x3 Limitations: no limitations HEENT: Head: Yes normal to inspection Ears: hearing grossly normal bilaterally General nose exam: Normal external nose present Face and sinus: Yes normal facial exam Mouth: Normal oral and palatal mucosa present Throat: Yes posterior oropharynx normal Eyes: General: appearance normal, both eyes and all related structures Pupils: Equal, round and reactive pupils present Neck: Neck: Yes normal visual inspection, Yes full ROM, Yes no lymphadenopathy and Yes no meningeal signs Chest: Chest palpation & inspection: normal inspection of the chest Resp: Effort & Inspection: normal respiratory effort Auscultation: clear to auscultation bilaterally Cardio: Rate: regular rate Rhythm: regular rhythm Peripheral pulses: Peripheral pulses 2+ throughout GI: Inspection: Yes normal to inspection Palpation (GI): Soft to palpation and nontender Auscultation: normal bowel sounds Back/Spine/Pelvis: Thoracic/Lumbar Spine: thoracic and lumbar spine normal to inspection Skin: General skin exam: no rashes or lesions noted Neuro: Other: Bilateral lower extremities 4/5 Upper extremities 5/5 General: patient oriented x3, no meningeal signs, no focal motor deficits, normal sensation to monofilament and Unable to assess gait Cranial nerves: Yes CN's II-XII intact bilaterally, Yes Equal, round and reactive pupils present, Yes Bilaterally intact EOM present, Yes Nystagmus not present, Yes Normal facial strength present and Yes Midline tongue present Cognition (Neuro): normal cognition Speech: No Abnormal speech present Gait exam (Neuro): Unable to assess gait Sensory Exam: Normal double simultaneous stimulation for sensation Coordination: [id number] test normal Extrem: General: Yes normal to inspection and Yes no calf tenderness NIH Stroke Scale Internal: Initial- Upon Arrival Level of Consciousness: Alert Level of Consciousness Questions: Answers both questions correctly Level of Consciousness Commands: Performs both tasks correctly Best Gaze: Normal Visual: No visual loss Facial Palsy: Normal Motor Arm (Right): No drift Motor Arm (Left): No drift Motor Leg (Right): No drift Motor Leg (Left): No drift Limb Ataxia: Absent Sensory: Normal Best Language: No aphasia Dysarthia: Normal Extinction and Inattention: No abnormality Score: 0 Course Course Course Narrative: I reviewed patient's previous records. She has longstanding history of intermittent dizziness. She has been seen by Cardiology. She had outpatient loop recorder that was negative. Normal neuro exam. Low concern for ICH/CVA although worsening symptoms today with no recent CT head. Will check CT head, CXR results pending, initial troponin indeterminate. Plan to repeat. Blood pressure is improving with 500 mL of normal saline Reevaluation(s) Reevaluation #1: Medications reconciled. CT head negative.. Repeat troponin negative. Orthostatics negative. Patient feels well at rest but tells me that when she stands up and moves around she feels generally weak and lightheaded. Again or neurological exam is nonfocal. There are no deficits. VSS. I think it is best for patient have a physical therapy evaluation and determine if she needs short-term rehab placement. Patient is agreeable to this. PT consult ordered. Case management consult ordered. Patient placed in physician observation pending disposition. Time: 20:40 MDM - Dizziness MDM Narrative Medical decision making narrative: 81-year-old female that presents to the emergency room with reports of generalized weakness, lightheadedness, nausea for several hours with an assisted fall to the ground with no reports of head strike or loss of consciousness. On arrival patient is alert oriented x3. She has a normal neurological exam the exception of some mild diffuse weakness. Her initial blood pressure is 74/41. Repeat blood pressure in the room without intervention is 90/50. Took all home blood pressure medications. Tacky mucous membranes. 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 At this time infection not suspected. Will need labs, chest x-ray, EKG, COVID screen, UA. Will give 500 cc of normal saline -Low concern for ACS with negative troponinx2, EKG. -Considered underlying infection as cause (negative CXR, UA) with no fever, no leukocytosis -Considered dehydration/eletrolyte abnormality with no normal labs -Considered ICH d/t AC use-negative CT head. Considered CVA however normal neuro exam. Medical Records Attestation: I reviewed the patient's medical records. Lab Data Attestation: I reviewed the patient's lab results. Result diagrams: 08/26/21 13:35 08/26/21 13:35 Labs: Lab Results 08/26/21 08/26/21 08/26/21 Range/Units 13:35 13:35 13:35 WBC 6.7 (4.8-10.8) X10*3/uL RBC 3.94 L (4.20-5.50) X10*6/uL Hgb 10.6 L (12.0-16.0) g/dl Hct 34.1 L (37.0-47.0) % MCV 86.5 (80.0-98.0) fL MCH 26.9 L (27.0-33.0) pg MCHC 31.1 (31.0-35.0) g/dl RDW 13.7 (11.0-16.0) % Plt Count 302 (160-400) X10*3/uL MPV 9.7 (9.4-12.3) fL Immature Gran % (Auto) 0.3 (0.0-0.4) % Neut % (Auto) 52.6 (45-73) % Lymph % (Auto) 35.4 (20-40) % [place] % (Auto) 10.7 (2-11) % Eos % (Auto) 0.7 (0-4) % Baso % (Auto) 0.3 (0-2) % Lymph # (Auto) 2.4 (1.2-4.9) X10*3/uL [place] # (Auto) 0.7 (0.1-1.2) X10*3/uL Eos # (Auto) 0.1 (0.0-0.4) X10*3/uL Baso # (Auto) 0.0 (0.0-0.2) X10*3/uL Abs Immat Gran (auto) 0.02 (0.00-0.03) X10*3/uL Absolute Neuts (auto) 3.5 (2.0-8.3) x10*3/uL Absolute Nucleated RBC 0.000 (0.0-0.012) X10*3/uL Nucleated RBC % (auto) 0.0 (0.0-0.2) /100WBC PT (10.0-13.1) SEC INR (0.9-1.1) Sodium 140 (135-145) mmol/L Potassium 4.8 D (3.3-5.1) mmol/L Chloride 110 H (96-108) mmol/L Carbon Dioxide 20 L (22-29) mmol/L Anion Gap 15 (12-20) BUN 19 H (9-16) mg/dL Creatinine 1.17 (0.5-1.4) mg/dL Estim Creat Clear Calc 38.4 Estimated GFR 44 Random Glucose 114 (60-115) mg/dL Lactic Acid (0.5-2.0) mmol/L Calcium 8.9 (8.4-10.2) mg/dL Magnesium 2.1 (1.6-2.6) mg/dL Total Bilirubin 0.6 (0.0-1.0) mg/dL Direct Bilirubin 0.2 (0.0-0.5) mg/dL AST 22 (5-31) U/L ALT 12 (0-31) U/L Alkaline Phosphatase 155 H (39-117) U/L Troponin I High Sens 12.6 D (<3.5-17.0) ng/L B-Natriuretic Peptide (<100) pg/mL Total Protein 6.5 (6.5-8.0) g/dL Albumin 3.6 (3.5-5.0) g/dL Urine Color Urine Appearance Urine pH (5.0-8.0) Ur Specific [place] (1.005-1.025) Urine Protein (NEG-TRACE) MG/DL Urine Glucose (UA) (NEG) MG/DL Urine Ketones (NEG) MG/DL Urine Blood (NEG) Urine Nitrite (NEG) Ur Leukocyte Esterase (NEG) COVID-19 (VALARIE) (Negative) COVID-19 Clin Com 08/26/21 08/26/21 08/26/21 Range/Units 13:35 13:43 14:44 WBC (4.8-10.8) X10*3/uL RBC (4.20-5.50) X10*6/uL Hgb (12.0-16.0) g/dl Hct (37.0-47.0) % MCV (80.0-98.0) fL MCH (27.0-33.0) pg MCHC (31.0-35.0) g/dl RDW (11.0-16.0) % Plt Count (160-400) X10*3/uL MPV (9.4-12.3) fL Immature Gran % (Auto) (0.0-0.4) % Neut % (Auto) (45-73) % Lymph % (Auto) (20-40) % [place] % (Auto) (2-11) % Eos % (Auto) (0-4) % Baso % (Auto) (0-2) % Lymph # (Auto) (1.2-4.9) X10*3/uL [place] # (Auto) (0.1-1.2) X10*3/uL Eos # (Auto) (0.0-0.4) X10*3/uL Baso # (Auto) (0.0-0.2) X10*3/uL Abs Immat Gran (auto) (0.00-0.03) X10*3/uL Absolute Neuts (auto) (2.0-8.3) x10*3/uL Absolute Nucleated RBC (0.0-0.012) X10*3/uL Nucleated RBC % (auto) (0.0-0.2) /100WBC PT 11.7 (10.0-13.1) SEC INR 1.0 (0.9-1.1) Sodium (135-145) mmol/L Potassium (3.3-5.1) mmol/L Chloride (96-108) mmol/L Carbon Dioxide (22-29) mmol/L Anion Gap (12-20) BUN (9-16) mg/dL Creatinine (0.5-1.4) mg/dL Estim Creat Clear Calc Estimated GFR Random Glucose (60-115) mg/dL Lactic Acid 1.2 (0.5-2.0) mmol/L Calcium (8.4-10.2) mg/dL Magnesium (1.6-2.6) mg/dL Total Bilirubin (0.0-1.0) mg/dL Direct Bilirubin (0.0-0.5) mg/dL AST (5-31) U/L ALT (0-31) U/L Alkaline Phosphatase (39-117) U/L Troponin I High Sens (<3.5-17.0) ng/L B-Natriuretic Peptide 384 H (<100) pg/mL Total Protein (6.5-8.0) g/dL Albumin (3.5-5.0) g/dL Urine Color Urine Appearance Urine pH (5.0-8.0) Ur Specific [place] (1.005-1.025) Urine Protein (NEG-TRACE) MG/DL Urine Glucose (UA) (NEG) MG/DL Urine Ketones (NEG) MG/DL Urine Blood (NEG) Urine Nitrite (NEG) Ur Leukocyte Esterase (NEG) COVID-19 (VALARIE) (Negative) COVID-19 Clin Com 08/26/21 08/26/21 08/26/21 Range/Units 14:44 15:06 17:14 WBC (4.8-10.8) X10*3/uL RBC (4.20-5.50) X10*6/uL Hgb (12.0-16.0) g/dl Hct (37.0-47.0) % MCV (80.0-98.0) fL MCH (27.0-33.0) pg MCHC (31.0-35.0) g/dl RDW (11.0-16.0) % Plt Count (160-400) X10*3/uL MPV (9.4-12.3) fL Immature Gran % (Auto) (0.0-0.4) % Neut % (Auto) (45-73) % Lymph % (Auto) (20-40) % [place] % (Auto) (2-11) % Eos % (Auto) (0-4) % Baso % (Auto) (0-2) % Lymph # (Auto) (1.2-4.9) X10*3/uL [place] # (Auto) (0.1-1.2) X10*3/uL Eos # (Auto) (0.0-0.4) X10*3/uL Baso # (Auto) (0.0-0.2) X10*3/uL Abs Immat Gran (auto) (0.00-0.03) X10*3/uL Absolute Neuts (auto) (2.0-8.3) x10*3/uL Absolute Nucleated RBC (0.0-0.012) X10*3/uL Nucleated RBC % (auto) (0.0-0.2) /100WBC PT (10.0-13.1) SEC INR (0.9-1.1) Sodium (135-145) mmol/L Potassium (3.3-5.1) mmol/L Chloride (96-108) mmol/L Carbon Dioxide (22-29) mmol/L Anion Gap (12-20) BUN (9-16) mg/dL Creatinine (0.5-1.4) mg/dL Estim Creat Clear Calc Estimated GFR Random Glucose (60-115) mg/dL Lactic Acid (0.5-2.0) mmol/L Calcium (8.4-10.2) mg/dL Magnesium (1.6-2.6) mg/dL Total Bilirubin (0.0-1.0) mg/dL Direct Bilirubin (0.0-0.5) mg/dL AST (5-31) U/L ALT (0-31) U/L Alkaline Phosphatase (39-117) U/L Troponin I High Sens 13.2 (<3.5-17.0) ng/L B-Natriuretic Peptide (<100) pg/mL Total Protein (6.5-8.0) g/dL Albumin (3.5-5.0) g/dL Urine Color YELLOW Urine Appearance HAZY Urine pH 5.5 (5.0-8.0) Ur Specific [place] >= 1.030 H (1.005-1.025) Urine Protein TRACE (NEG-TRACE) MG/DL Urine Glucose (UA) NEG (NEG) MG/DL Urine Ketones NEG (NEG) MG/DL Urine Blood NEG (NEG) Urine Nitrite NEG (NEG) Ur Leukocyte Esterase NEG (NEG) COVID-19 (VALARIE) Negative (Negative) COVID-19 Clin Com See Note Imaging Data Chest x-ray: Attestation: I personally reviewed and interpreted this imaging study as follows: Radiologist's impression: EXAMINATION: XR CHEST CLINICAL INFORMATION: Weakness COMPARISON: Chest radiograph 02/19/2021 TECHNIQUE: 2 views of the chest were obtained. FINDINGS: Clear lungs. No pleural effusion or pneumothorax. Cardiac silhouette is mildly enlarged unchanged from prior. Left shoulder arthroplasty. Mediastinal surgical clips. XR/XR chest 2V IMPRESSION: Clear lungs. CT scan - head: Attestation: I personally reviewed and interpreted this imaging study as follows: Radiologist's impression: [address] [address] [address] Scan Report Signed Patient: Carly Unger MR#: [id number] : 1940 Acct:[id number] Age/Sex: 81 / F ADM Date: 08/26/21 Loc: .ED Attending Dr: Ordering Physician: Evelyn Ervin NP Date of Service: 08/26/21 Procedure(s): CT head/brain wo con Accession Number(s): [id number] cc: Evelyn Ervin NP~ EXAMINATION: ?CT head/brain wo con CLINICAL INFORMATION: Reason for Exam dizziness COMPARISON: CT brain 12/01/2019 TECHNIQUE: Contiguous axial imaging was performed from the skull base to vertex without intravenous contrast. Sagittal and coronal reformatted images were obtained. This CT examination was performed using dose optimization techniques as appropriate, variously including the following: *? Automated exposure control *? Adjustment of mA and/or kV according to patient size (this includes techniques or standardized protocols for targeted exams where dose is matched to indication/reason for exam; i.e. extremities or head) Use of iterative reconstruction technique DLP: 699? mGy-cm FINDINGS: No acute osseous or soft tissue abnormality.? Bilateral partial mastoid effusions. No bony erosion. There is no evidence of acute intracranial hemorrhage or territorial infarction. No abnormal mass effect or midline shift is seen. [place] to white matter differentiation is well preserved. No extra-axial fluid collections are identified. No hydrocephalus. Patchy periventricular and deep white matter hypoattenuation is consistent with moderate small vessel ischemic changes. ? CT/CT head/brain wo con IMPRESSION: ? 1.? No acute intracranial abnormality. ? ECG Data Attestation: I personally reviewed and interpreted this ECG as follows: ECG interpretation date: 08/26/21 ECG interpretation time: 13:23 Interpretation: Sinus rhythm with first-degree AV block with rate of 75, normal QRS, normal QT Discharge Plan Discharge Clinical Impression: Dizziness, Weakness Patient Disposition: Still a Patient Prescriptions: No Action (DME) PUREWICK See Rx Instructions .Route .MEDSUPPLY Qty: 90 3RF Rx Instructions: As directed (DME) stair lift and ramp See Rx Instructions .Route .MEDSUPPLY Qty: 1 0RF Rx Instructions: As directed clotrimazole 1 % cream See Rx Instructions topical BID Qty: 45 11RF Rx Instructions: apply to affected area topical 2 times a day; (DME) lancets [Accu-Chek Softclix Lancets] Misc See Rx Instructions .ROUTE .MEDSUPPLY Qty: 100 3RF Rx Instructions: As directed daily (DME) blood-glucose meter [Accu-Chek Ruth Plus Meter] Misc See Rx Instructions .ROUTE .MEDSUPPLY Qty: 1 0RF Rx Instructions: As directed test blood glucose daily (DME) Accu-Chek Ruth Plus test strp Strip See Rx Instructions .ROUTE .MEDSUPPLY Qty: 100 3RF Rx Instructions: test blood glucose daily (DME) blood-glucose meter [OneTouch Ultra2 Meter] Kit See Rx Instructions .Route Qty: 1 0RF Rx Instructions: As directed (DME) lancets [OneTouch UltraSoft Lancets] Misc See Rx Instructions .Route Qty: 100 3RF Rx Instructions: As directed test blood glucose daily (DME) blood-glucose meter [OneTouch UltraMini] Kit See Rx Instructions .Route Qty: 1 0RF Rx Instructions: As directed fluticasone propion-salmeterol 500-50 mcg/dose blister with device 1 inh inhalation BID Qty: 60 11RF (DME) Wheelchair Ramp See Rx Instructions .Route .MEDSUPPLY Qty: 1 0RF Rx Instructions: As directed (DME) Transfer Bench Misc See Rx Instructions .Route Qty: 1 0RF Rx Instructions: As directed for bath tub (DME) blood pressure monitor [Blood Pressure Kit] Kit See Rx Instructions .Route Qty: 1 0RF Rx Instructions: As directed cyanocobalamin (vitamin B-12) 1,000 mcg/mL solution 1,000 mcg IM Q4W 90 Days Qty: 4 5RF potassium chloride 10 mEq tablet extended release 10 meq PO BID Qty: 180 3RF nitroglycerin 0.4 mg tablet, sublingual 0.4 mg sublingual Q5M PRN (Reason: for angina) 90 Days Qty: 25 0RF meclizine 12.5 mg tablet 12.5 mg PO DAILY PRN (Reason: for motion sickness) Qty: 30 5RF Spiriva with HandiHaler 18 mcg capsule, w/inhalation device 1 cap inhalation DAILY Qty: 90 3RF docusate sodium 100 mg capsule 100 mg PO BID PRN (Reason: consti) Qty: 60 11RF guaifenesin [Mucinex] 600 mg tablet extended release 12hr 600 mg PO Q12H PRN (Reason: congestion) Qty: 20 0RF furosemide 40 mg tablet 40 mg PO BID Qty: 180 3RF levothyroxine 100 mcg tablet 100 mcg PO QAM Qty: 90 3RF duloxetine 30 mg capsule,delayed release(DR/EC) 30 mg PO DAILY Qty: 90 2RF atorvastatin 40 mg tablet 40 mg PO DAILY Qty: 90 3RF ezetimibe 10 mg tablet 10 mg PO DAILY Qty: 90 3RF Dexilant 30 mg capsule,biphase delayed releas 30 mg PO DAILY Qty: 90 3RF ascorbic acid (vitamin C) 500 mg tablet 500 mg PO BID Qty: 180 3RF (DME) [facility] Bed diagnosis I50.32 See Rx Instructions .Route .MEDSUPPLY Qty: 1 0RF Rx Instructions: As directed, GERMAN 99 (DME) Nebulizer supplies See Rx Instructions .Route .MEDSUPPLY Qty: 3 3RF Rx Instructions: As directed semaglutide 1 mg/dose (4 mg/3 mL) pen injector 1.5 mg subcut QWEEK 30 Days Qty: 5.625 11RF Rx Instructions: for 4 doses albuterol sulfate 2.5 mg /3 mL (0.083 %) solution for nebulization 2.5 mg inhalation Q6H PRN (Reason: for wheezing) Qty: 450 1RF Eliquis 5 mg tablet 5 mg PO BID 90 Days Qty: 180 3RF (DME) OneTouch Ultra Test Strip See Rx Instructions .ROUTE .COMPLEX Qty: 100 3RF Dose Instruction: DIRECTED TEST BLOOD GLUCOSE DAILY Rx Instructions: DIRECTED TEST BLOOD GLUCOSE DAILY losartan 50 mg tablet 50 mg PO DAILY 90 Days Qty: 90 1RF ipratropium-albuterol 0.5 mg-3 mg(2.5 mg base)/3 mL solution for nebulization 3 ml inhalation Q4-6H PRN (Reason: for wheezing) Qty: 180 3RF carvedilol 25 mg tablet 25 mg PO BID 90 Days Qty: 180 2RF albuterol sulfate 90 mcg/actuation HFA aerosol inhaler 2 puff PO Q4H PRN (Reason: for respiratory distress) Qty: 8.5 0RF meloxicam 7.5 mg tablet 7.5 mg PO DAILY Qty: 20 0RF ferrous sulfate 325 mg (65 mg iron) Tablet 325 mg PO DAILY aspirin 81 mg Tablet 81 mg PO DAILY cholecalciferol (vitamin D3) [Vitamin D3] 25 mcg (1,000 unit) Capsule 25 mcg PO DAILY dicyclomine 10 mg Capsule 10 - 20 mg PO QID PRN (Reason: Abdominal Pain) diltiazem HCl [DILT-XR] 120 mg capsule,ext.rel 24h degradable 1 cap PO DAILY cholestyramine-aspartame [Prevalite] 4 gram powder in packet 4 g PO QIDACHS Qty: 120 1RF Rx Instructions: no meds 1 hr before/4-6 hr after dose (DME) hospital bed See Rx Instructions .Route .MEDSUPPLY Qty: 1 0RF Rx Instructions: As directed sucralfate 100 mg/mL suspension 1 g PO BEDTIME
[2021-08-26 13:41] LABS: MANUAL DIFF FLAG NO
[2021-08-26 13:42] LABS: Basophils Percent Auto 0.3 % (0-2); Eosinophils Absolute Auto 0.1 X10*3/uL (0.0-0.4); Eosinophils Percent Auto 0.7 % (0-4); Hematocrit 34.1 % (37.0-47.0); Hemoglobin 10.6 g/dl (12.0-16.0); Imm Gran Abs Auto 0.02 X10*3/uL (0.00-0.03); Imm Gran Pct Auto 0.3 % (0.0-0.4); Lymphocytes Absolute Auto 2.4 X10*3/uL (1.2-4.9); Lymphocytes Percent Auto 35.4 % (20-40); Mean Corpuscular HGB Conc 31.1 g/dl (31.0-35.0); Mean Corpuscular Hemoglobin 26.9 pg (27.0-33.0); Mean Corpuscular Volume 86.5 fL (80.0-98.0); Mean Platelet Volume 9.7 fL (9.4-12.3); Monocytes Absolute Auto 0.7 X10*3/uL (0.1-1.2); Monocytes Percent Auto 10.7 % (2-11); Neutrophils Absolute Auto 3.5 x10*3/uL (2.0-8.3); Neutrophils Percent Auto 52.6 % (45-73); Platelet Count 302 X10*3/uL (160-400); Red Blood Count 3.94 X10*6/uL (4.20-5.50); Red Cell Distribution Width 13.7 % (11.0-16.0); White Blood Count 6.7 X10*3/uL (4.8-10.8)
[2021-08-26] MEDS: 0.9 % Sodium Chloride 500 ML 999 ML IV (13:47)
[2021-08-26 13:59] LABS: Lactic Acid 1.2 mmol/L (0.5-2.0)
[2021-08-26 14:05] LABS: Alanine Aminotransferase 12 U/L (0-31); Albumin Level 3.6 g/dL (3.5-5.0); Alkaline Phosphatase 155 U/L (39-117); Anion Gap 15 (12-20); Aspartate Amino Transferase 22 U/L (5-31); B Type Natriuretic Peptide 384 pg/mL (<100); Bilirubin Direct 0.2 mg/dL (0.0-0.5); Bilirubin Total 0.6 mg/dL (0.0-1.0); Blood Urea Nitrogen 19 mg/dL (9-16); Calcium 8.9 mg/dL (8.4-10.2); Carbon Dioxide 20 mmol/L (22-29); Chloride 110 mmol/L (96-108); Creatinine Clr Calc Pharmacy 38.4; Estimated Glomerular Filt Rate 44; Glucose Random 114 mg/dL (60-115); Magnesium 2.1 mg/dL (1.6-2.6); Potassium 4.8 mmol/L (3.3-5.1); Sodium 140 mmol/L (135-145); Total Protein 6.5 g/dL (6.5-8.0); Troponin-I High Sensitivity 12.6 ng/L (<3.5-17.0)
[2021-08-26 15:09] LABS: COVID-19 Test Negative (Negative)
[2021-08-26 15:14] LABS: Prothrombin Time 11.7 SEC (10.0-13.1)
[2021-08-26 15:17] LABS: Appearance Urine HAZY; Color Urine YELLOW; Glucose Urine UA NEG (NEG); Leukocyte Esterase Urine NEG (NEG); Nitrite Urine NEG (NEG); PH 5.5 (5.0-8.0); Specific Gravity - Urine >= 1.030 (1.005-1.025); Urine Blood NEG (NEG); Urine Ketones NEG (NEG); Urine Protein TRACE MG/DL (NEG-TRACE)
[2021-08-26 17:58] LABS: Troponin-I High Sensitivity 13.2 ng/L (<3.5-17.0)
[2021-08-26] MEDS: Meclizine HCl 25 MG TABLET PO (19:07)
[2021-08-26] MEDS: Apixaban 5 MG TABLET PO (21:35)
[2021-08-26] MEDS: Furosemide 40 MG TABLET PO (21:36)
[2021-08-26] MEDS: carvediloL 25 MG TABLET PO (21:36)
[2021-08-26] MEDS: Ascorbic Acid 500 MG TABLET PO (21:36)
[2021-08-26] MEDS: Sucralfate Oral Suspension 1 GM/10 ML ORAL.SUSP PO (21:36)
--- NOTE | 2021-08-26 22:08 | PC.NURSE ---
pt refused PO potassium stating, it is too large for me to swallow
[2021-08-27] VITALS (11 sets, daily range): BP systolic 95–152; BP diastolic 32–73; PULSE 66–82; RESP 14–19; TEMP 36.8; O2SAT 95–99
[2021-08-27] MEDS: 0.9 % Sodium Chloride 500 ML IV (01:03)
--- NOTE | 2021-08-27 01:03 | PC.NURSE ---
Pt blood pressures were running around 97/40. Consulted Dr Fraser and she orderd 500mL bolus normal saline. Will continue to monitor BP, Dr Fraser instructed to hold BP medications in the moning
--- NOTE | 2021-08-27 05:09 | PC.NURSE ---
Pt is able to void by herself in a bedpan, can advise staff when she needs to go and is able to turn herself to assist with positioning.
[2021-08-27] MEDS: Levothyroxine Sodium 100 MCG TABLET PO (06:01)
[2021-08-27] MEDS: Omeprazole 20 MG CAPSULE.DR PO (06:01)
[2021-08-27] MEDS: dilTIAZem HCL CD 120 MG CAP.ER.DEG PO (08:46)
[2021-08-27] MEDS: Atorvastatin Calcium 40 MG TABLET PO (08:46)
[2021-08-27] MEDS: Ezetimibe 10 MG TABLET PO (08:46)
[2021-08-27] MEDS: DULoxetine HCl 30 MG CAPSULE.DR PO (08:46)
[2021-08-27] MEDS: Ferrous Sulfate 324 MG TABLET.DR PO (08:46)
[2021-08-27] MEDS: Aspirin 81 MG TAB.CHEW PO (08:47)
[2021-08-27] MEDS: carvediloL 25 MG TABLET PO ×2 (08:47→21:56)
[2021-08-27] MEDS: Ascorbic Acid 500 MG TABLET PO ×2 (08:48→21:56)
[2021-08-27] MEDS: Apixaban 5 MG TABLET PO ×2 (08:48→21:56)
[2021-08-27] MEDS: Furosemide 40 MG TABLET PO ×2 (08:49→21:55)
[2021-08-27] MEDS: Clotrimazole 1 % Cream 15 GM TUBE 1 APPL TOPICAL (08:57)
[2021-08-27] MEDS: Losartan Potassium 50 MG TABLET PO (09:00)
[2021-08-27] MEDS: Cholecalciferol (Vitamin D3) 25 MCG TABLET PO (09:00)
--- NOTE | 2021-08-27 11:25 | MHC.CM.ED ---
Received case management consult overnight. Patient came to the ER due to dizziness. Work up is essentially negative. Met with patient in regards to discharge planning. Patient lives alone, ambulates with a cane/walker, is active with [facility] and has oxygen at home. PCP verified. Patient denies having a HCP. Refuses to complete one. Patient received J&J x1 and 2 Moderna vaccines. Patient is declining the need for STR and is requesting to go home. She will arrange transportation for 12:20pm. Patient, Nadine RN and Ansley CUADRA aware. Continue to monitor for d/c needs.
[2021-08-27] MEDS: 0.9 % Sodium Chloride 1,000 ML 999 ML IVCONT (13:20)
[2021-08-27 13:29] LABS: MANUAL DIFF FLAG NO
[2021-08-27 13:42] LABS: Lactic Acid 0.6 mmol/L (0.5-2.0)
[2021-08-27 13:45] LABS: Basophils Percent Auto 0.3 % (0-2); Eosinophils Absolute Auto 0.1 X10*3/uL (0.0-0.4); Eosinophils Percent Auto 1.3 % (0-4); Imm Gran Abs Auto 0.02 X10*3/uL (0.00-0.03); Imm Gran Pct Auto 0.3 % (0.0-0.4); Lymphocytes Absolute Auto 1.7 X10*3/uL (1.2-4.9); Lymphocytes Percent Auto 26.7 % (20-40); Mean Corpuscular HGB Conc 31.4 g/dl (31.0-35.0); Mean Corpuscular Hemoglobin 27.4 pg (27.0-33.0); Mean Corpuscular Volume 87.1 fL (80.0-98.0); Mean Platelet Volume 9.6 fL (9.4-12.3); Monocytes Absolute Auto 0.6 X10*3/uL (0.1-1.2); Monocytes Percent Auto 8.8 % (2-11); Neutrophils Absolute Auto 3.9 x10*3/uL (2.0-8.3); Neutrophils Percent Auto 62.6 % (45-73); Platelet Count 282 X10*3/uL (160-400); Red Blood Count 4.02 X10*6/uL (4.20-5.50); Red Cell Distribution Width 13.6 % (11.0-16.0); White Blood Count 6.3 X10*3/uL (4.8-10.8)
[2021-08-27 14:02] LABS: Alanine Aminotransferase 12 U/L (0-31); Albumin Level 3.7 g/dL (3.5-5.0); Alkaline Phosphatase 149 U/L (39-117); Anion Gap 14 (12-20); Aspartate Amino Transferase 17 U/L (5-31); Bilirubin Direct 0.2 mg/dL (0.0-0.5); Bilirubin Total 0.5 mg/dL (0.0-1.0); Blood Urea Nitrogen 12 mg/dL (9-16); Calcium 8.6 mg/dL (8.4-10.2); Carbon Dioxide 25 mmol/L (22-29); Chloride 106 mmol/L (96-108); Creatinine Clr Calc Pharmacy 48.9; Estimated Glomerular Filt Rate 59; Glucose Random 103 mg/dL (60-115); Magnesium 1.7 mg/dL (1.6-2.6); Potassium 3.7 mmol/L (3.3-5.1); Sodium 141 mmol/L (135-145); Total Protein 6.2 g/dL (6.5-8.0)
--- NOTE | 2021-08-27 17:59 | PC.NURSE ---
pt with same C/O as when she got here, same lightheadedness and weakness. BP became and issue earlier in shift, IV bolus given. she will be staying overnight and not going home as planned. MD is aware of all the BP's
[2021-08-27] MEDS: Sucralfate Oral Suspension 1 GM/10 ML ORAL.SUSP PO (21:55)
[2021-08-28] VITALS (11 sets, daily range): BP systolic 58–135; BP diastolic 30–94; PULSE 69–82; RESP 14–20; TEMP 36.4–36.8; O2SAT 95–98; BMI 38.7
[2021-08-28] MEDS: Levothyroxine Sodium 100 MCG TABLET PO (06:09)
[2021-08-28] MEDS: Omeprazole 20 MG CAPSULE.DR PO (06:09)
[2021-08-28 08:06] LABS: Glucose, Whole Blood 97 mg/dL (60-115)
--- NOTE | 2021-08-28 08:12 | ECG_ITS ---
Test Reason : dizzy Blood Pressure : / mmHG Vent. Rate : 076 BPM Atrial Rate : 076 BPM P-R Int : 246 ms QRS Dur : 090 ms QT Int : 408 ms P-R-T Axes : 070 016 117 degrees QTc Int : 459 ms Sinus rhythm with 1st degree A-V block Septal infarct (cited on or before 26-AUG-2021) Abnormal ECG When compared with ECG of 26-AUG-2021 13:23, Premature atrial complexes are no longer Present Nonspecific T wave abnormality no longer evident in Inferior leads Referred By: Corin Javier Electronically Signed By:TATO PERDOMO MD
--- NOTE | 2021-08-28 08:16 | PC.NURSE ---
pt incontinent of urine, pt cleaned up while being moved around pt keeps saying how dizzy she is feeling, took bp 94/33 hr 70 and then stood the pt up and bp dropped to 58/30 and pt reports feeling extremely dizzy, feels like she is going to fall on her face, no facial droop at this time, no arm drift and hand grasp strong and equal, ns on the monitor dr dickson aware of this finding
[2021-08-28 08:33] LABS: MANUAL DIFF FLAG NO
[2021-08-28 08:41] LABS: Basophils Percent Auto 0.3 % (0-2); Eosinophils Absolute Auto 0.1 X10*3/uL (0.0-0.4); Eosinophils Percent Auto 0.9 % (0-4); Hematocrit 36.4 % (37.0-47.0); Hemoglobin 11.5 g/dl (12.0-16.0); Imm Gran Abs Auto 0.02 X10*3/uL (0.00-0.03); Imm Gran Pct Auto 0.3 % (0.0-0.4); Lymphocytes Percent Auto 26.7 % (20-40); Mean Corpuscular HGB Conc 31.6 g/dl (31.0-35.0); Mean Corpuscular Hemoglobin 27.6 pg (27.0-33.0); Mean Corpuscular Volume 87.3 fL (80.0-98.0); Mean Platelet Volume 9.6 fL (9.4-12.3); Monocytes Absolute Auto 0.7 X10*3/uL (0.1-1.2); Monocytes Percent Auto 9.5 % (2-11); Neutrophils Absolute Auto 4.6 x10*3/uL (2.0-8.3); Neutrophils Percent Auto 62.3 % (45-73); Platelet Count 318 X10*3/uL (160-400); Red Blood Count 4.17 X10*6/uL (4.20-5.50); Red Cell Distribution Width 13.7 % (11.0-16.0); White Blood Count 7.4 X10*3/uL (4.8-10.8)
[2021-08-28] MEDS: Fluticasone/Vilanterol 200/25 BLST.W.DEV 1 PUFF INHALE (08:46)
[2021-08-28 08:47] LABS: D Dimer High Sensitivity 227 NG/ML
[2021-08-28 09:02] LABS: Alanine Aminotransferase 12 U/L (0-31); Albumin Level 3.7 g/dL (3.5-5.0); Alkaline Phosphatase 158 U/L (39-117); Anion Gap 13 (12-20); Aspartate Amino Transferase 21 U/L (5-31); Bilirubin Total 0.6 mg/dL (0.0-1.0); Blood Urea Nitrogen 10 mg/dL (9-16); Calcium 8.6 mg/dL (8.4-10.2); Carbon Dioxide 26 mmol/L (22-29); Chloride 105 mmol/L (96-108); Creatinine Clr Calc Pharmacy 47.3; Estimated Glomerular Filt Rate 56; Glucose Random 105 mg/dL (60-115); Potassium 4.2 mmol/L (3.3-5.1); Sodium 140 mmol/L (135-145); Total Protein 6.5 g/dL (6.5-8.0)
[2021-08-28] MEDS: 0.9 % Sodium Chloride 1,000 ML 999 ML IV (09:10)
[2021-08-28] MEDS: iohexoL 350 MG/ML 100 ML INFUS..BTL 80 ML IV (09:58)
[2021-08-28 10:19] LABS: Glucose, Whole Blood 74 mg/dL (60-115)
[2021-08-28] MEDS: Dextrose 5 % and 0.45 % NaCl 1,000 ML 80 ML IVCONT ×2 (10:23→22:32)
[2021-08-28] MEDS: Clotrimazole 1 % Cream 15 GM TUBE 1 APPL TOPICAL (10:27)
--- NOTE | 2021-08-28 10:35 | PC.NURSE ---
pt reports feeling slightly dizzy when laying still but once moving around dizziness increases
[2021-08-28 13:23] LABS: Glucose, Whole Blood 87 mg/dL (60-115)
--- NOTE | 2021-08-28 13:58 | P.HPHOSP_ITS ---
History of Present Illness Date of Service: 08/28/21 Attending physician on admission: Jac [facility] Chief Complaint: Dizziness 81-year-old woman presented to the ER with complaints of lightheadedness especially with standing worsen Saturday and on and off over the last several months. She denied chest pain, shortness breath, nausea, vomiting, diarrhea, recent illness. She did report that often on she does see a white flash on the left side but no other symptoms. She denies any loss of consciousness. She reports that she lives alone and over the weekend the lightheadedness had been so severe she decided to come to the ER for further evaluation. Apparently she initially came to the ER on 08/26/2021 with this weakness and dizziness in the plan was to transfer to short-term rehab however patient declined. At some point she was found to be hypotensive with systolic blood pressure in the 90s, she is on multiple antihypertensive medications. After resolution of this plan was to send the patient home but her caregiver mentioned the frequent falls and dizziness and was concerned about this. 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 Plan was to admit patient. 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 She has been giving her regularly scheduled medications other than antihypertensives as well as IV fluids. She will be placed on observation for dizziness. Review of Systems Review of Systems: Denies any recent fever chills or decrease in appetite respiratory denies any shortness of breath coverage production cardiovascular denies chest pain gastrointestinal denies any dysphagia abdominal pain nausea vomiting or diarrhea genitourinary denies any dysuria frequency or hematuria musculoskeletal denies any joint pain or swelling neuropsych denies any weakness or seizures all other systems reviewed are negative [facility] Medical History (Updated 08/28/21 @ 14:00 by Marlyn Shook NP) Abdominal aortic aneurysm CAD (coronary artery disease) Carpal tunnel syndrome Chronic pain syndrome Clostridium difficile colitis Congestive heart failure COPD (chronic obstructive pulmonary disease) 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 Diarrhea Diverticulitis DVT (deep venous thrombosis) Fibromyalgia GERD (gastroesophageal reflux disease) History of spinal stenosis HTN (hypertension) Hypercholesterolemia Hypothyroid Low back pain Lower extremity weakness Nasal congestion Obesity (BMI 30-39.9) Obstructive sleep apnea Otitis externa Paroxysmal atrial fibrillation Pernicious anemia Respiratory failure with hypoxia and hypercapnia Restrictive lung disease Spondylosis of lumbar spine Family History Father Hypertension CVD (cardiovascular disease) Mother Colon cancer Sister Leukemia Sister Colon cancer Son Lung cancer Colon polyps Surgical History H/O angioplasty H/O cardiac catheterization History of arthroplasty of left shoulder Hx of appendectomy Hx of cholecystectomy S/P BREANN-BSO (total abdominal hysterectomy and bilateral salpingo-oophorectomy) Social History Household Members: None Housing: Apartment Do you presently have visiting nurse or other home services: Yes (domestic maid and vna) Alcohol intake: never Patient Tobacco Use Status: Former Tobacco user Tobacco use type: Cigarette Years Smoked: stopped 2009 e-Cigarette/Vaping Use: Never Used Second Hand Smoke Exposure: No Advance Directives: No Advance Directives Information Provided: Yes service: No Current occupational status: retired Current occupational exposures/hazards: No Cognitive needs: No Hearing needs: No Vision needs: Yes Meds Allergies Allergy/AdvReac Type Severity Reaction Status Date / Time morphine [MORPHINE] Allergy Unknown RASH Verified 08/03/21 11:19 pregabalin [From LYRICA] Allergy Unknown NAUSEA, Verified 08/03/21 11:19 felt high on drugs Active Medications: Current Medications Acetaminophen (Acetaminophen 325 Mg Tablet) 650 mg PO Q6H PRN PRN Reason: Pain, Mild (Pain Scale 1-3) Albuterol Sulfate (Albuterol Sulfate (0.083%) 2.5 Mg/3 Ml Vial.Neb) 2.5 mg INHALE Q6H PRN PRN Reason: for wheezing Albuterol Sulfate (Albuterol Sulfate 90 Mcg 8 Gm Inhaler) 2 puff INHALE Q4H PRN PRN Reason: for respiratory distress Albuterol/Ipratropium (Albuterol/Iprat 2.5/0.5mg 3 Ml Ampul.Neb) 3 ml INHALE Q4H PRN PRN Reason: for wheezing Apixaban (Apixaban 5 Mg Tablet) 5 mg PO BID DANIEL Last Admin: 08/28/21 10:27 Dose: Not Given Ascorbic Acid (Ascorbic Acid 500 Mg Tablet) 500 mg PO BID [facility] Last Admin: 08/28/21 10:27 Dose: Not Given Aspirin (Aspirin 81 Mg Tab.Chew) 81 mg PO DAILY [facility] Last Admin: 08/28/21 10:26 Dose: Not Given Atorvastatin Calcium (Atorvastatin Calcium 40 Mg Tablet) 40 mg PO DAILY [facility] Last Admin: 08/28/21 10:25 Dose: Not Given Carvedilol (Carvedilol 25 Mg Tablet) 25 mg PO BID [facility]; Protocol Last Admin: 08/28/21 10:27 Dose: Not Given Clotrimazole (Clotrimazole 1 % Cream 15 Gm Tube) 1 appl TOPICAL BID [facility]; Protocol Last Admin: 08/28/21 10:27 Dose: 1 appl Dicyclomine HCl (Dicyclomine Hcl 10 Mg Capsule) 10 mg PO QID PRN PRN Reason: Abdominal Pain Diltiazem HCl (Diltiazem Hcl Cd 120 Mg Cap.Er.Deg) 120 mg PO DAILY [facility]; Protocol Last Admin: 08/28/21 10:25 Dose: Not Given Docusate Sodium (Docusate Sodium 100 Mg Capsule) 100 mg PO BID PRN PRN Reason: consti Duloxetine HCl (Duloxetine Hcl 30 Mg Capsule.) 30 mg PO DAILY [facility] Last Admin: 08/28/21 10:25 Dose: Not Given Ezetimibe (Ezetimibe 10 Mg Tablet) 10 mg PO DAILY [facility] Last Admin: 08/28/21 10:25 Dose: Not Given Ferrous Sulfate (Ferrous Sulfate 324 Mg Tablet.) 324 mg PO DAILY [facility] Last Admin: 08/28/21 10:24 Dose: Not Given Fluticasone/Vilanterol (Fluticasone/Vilanterol 200/25 Blst.W.Dev) 1 puff INHALE RDAILY [facility] Last Admin: 08/28/21 08:46 Dose: 1 puff Furosemide (Furosemide 40 Mg Tablet) 40 mg PO BID [facility]; Protocol Last Admin: 08/28/21 10:26 Dose: Not Given Guaifenesin (Guaifenesin La 600 Mg Tab.Er.12h) 600 mg PO Q12H PRN PRN Reason: congestion Dextrose/Sodium Chloride (D51/2ns) 1,000 mls @ 80 mls/hr IVCONT .[id number] [facility] Last Admin: 08/28/21 10:23 Dose: 80 mls/hr Levothyroxine Sodium (Levothyroxine Sodium 100 Mcg Tablet) 100 mcg PO DAILY@0600 [facility] Last Admin: 08/28/21 06:09 Dose: 100 mcg Losartan Potassium (Losartan Potassium 50 Mg Tablet) 50 mg PO DAILY [facility]; Protocol Last Admin: 08/28/21 10:24 Dose: Not Given Meclizine HCl (Meclizine Hcl 12.5 Mg Tablet) 12.5 mg PO DAILY PRN PRN Reason: for motion sickness Nitroglycerin (Nitroglycerin 0.4 Mg Tab.Subl) 0.4 mg SUBLINGUAL Q5M PRN PRN Reason: for angina Non-Formulary Medication (Cholestyramine-Aspartame [Prevalite]) 4 gm PO QIDACHS [facility] Omeprazole (Omeprazole 20 Mg Capsule.Dr) 20 mg PO DAILY@0630 [facility] [place] Last Admin: 08/28/21 06:09 Dose: 20 mg Ondansetron HCl (Ondansetron Hcl 4 Mg/2 Ml Vial) 4 mg IVPUSH Q8H PRN PRN Reason: Nausea and Vomiting Potassium Chloride (Potassium Chloride Er 10 Meq Capsule.Er) 10 meq PO BID [facility] [place] Last Admin: 08/28/21 10:26 Dose: Not Given Sodium Chloride (0.9 % Sodium Chloride Flush 3 Ml Syringe) 3 ml IVFLUSH QSHIFT [facility] Sucralfate (Sucralfate Oral Suspension 1 Gm/10 Ml Oral.Susp) 1 gm PO BEDTIME [facility] [place] Last Admin: 08/27/21 21:55 Dose: 1 gm Tiotropium [place] (Tiotropium [place] 18 Mcg Cap.W.Dev) 1 puff INHALE RDAILY [facility] [place] Last Admin: 08/28/21 08:46 Dose: 1 puff Vitamin D (Cholecalciferol (Vitamin D3) 25 Mcg Tablet) 25 mcg PO DAILY [facility] [place] Last Admin: 08/28/21 10:25 Dose: Not Given Home Medications Medication Instructions Recorded Confirmed Last Taken Type sucralfate 100 mg/mL oral 1 g PO BEDTIME 11/21/19 08/26/21 Unknown History suspension aspirin 81 mg tablet 81 mg PO DAILY 12/01/19 08/26/21 Unknown History cholecalciferol (vitamin D3) 25 25 mcg PO DAILY 12/01/19 08/26/21 Unknown History mcg (1,000 unit) capsule (Vitamin D3) dicyclomine 10 mg capsule 10 - 20 mg PO QID PRN Abdominal 12/01/19 08/26/21 Unknown History Pain ferrous sulfate 325 mg (65 mg 325 mg PO DAILY 12/01/19 08/26/21 Unknown History iron) tablet diltiazem HCl 120 mg 1 cap PO DAILY 08/26/21 08/26/21 Unknown History capsule,extended release 24 hr, controlled (DILT-XR) Physical Exam Vital Signs and Narrative: Vital Signs: Last Vital Signs Temp 97.6 F 08/28/21 13:11 Pulse 75 08/28/21 13:11 Resp 20 08/28/21 09:18 BP 135/47 L 08/28/21 13:11 Pulse Ox 95 08/28/21 08:04 O2 Del Method 08/28/21 08:04 O2 Flow Rate 3 08/28/21 05:58 Oxygen Flow Rate 2 08/26/21 13:05 BMI result Body Mass Index 37.4 Appearing in no acute distress head is normocephalic atraumatic eyes pupils are PERRLA sclera is anicteric mouth throat mucous membranes are intact and moist neck is supple no lymphadenopathy, no JVD noted lung sounds are clear to auscultation heart regular rate rhythm, clear S1, S2 positive bowel sounds, abdomen is soft, nontender neuro patient is alert x3, no focal deficits Results Labs CBC and Chem 7: 08/28/21 08:30 08/28/21 08:30 Labs: Laboratory Results - last 24 hr 08/27/21 08/28/21 08/28/21 13:24 07:56 08:30 MCV 87.3 MCH 27.6 MCHC 31.6 RDW 13.7 Plt Count 318 MPV 9.6 Immature Gran % (Auto) 0.3 Neut % (Auto) 62.3 Lymph % (Auto) 26.7 [place] % (Auto) 9.5 Eos % (Auto) 0.9 Baso % (Auto) 0.3 Lymph # (Auto) 2.0 [place] # (Auto) 0.7 Eos # (Auto) 0.1 Baso # (Auto) 0.0 Abs Immat Gran (auto) 0.02 Absolute Neuts (auto) 4.6 Absolute Nucleated RBC 0.000 Nucleated RBC % (auto) 0.0 D-Dimer High Sensitivty Anion Gap 14 Estim Creat Clear Calc 48.9 Estimated GFR 59 POC Glucose 97 Random Glucose 103 Calcium 8.6 Magnesium 1.7 Total Bilirubin 0.5 Direct Bilirubin 0.2 AST 17 ALT 12 Alkaline Phosphatase 149 H Total Protein 6.2 L Albumin 3.7 08/28/21 08/28/21 08/28/21 08:30 08:30 10:14 MCV MCH MCHC RDW Plt Count MPV Immature Gran % (Auto) Neut % (Auto) Lymph % (Auto) [place] % (Auto) Eos % (Auto) Baso % (Auto) Lymph # (Auto) [place] # (Auto) Eos # (Auto) Baso # (Auto) Abs Immat Gran (auto) Absolute Neuts (auto) Absolute Nucleated RBC Nucleated RBC % (auto) D-Dimer High Sensitivty 227 Anion Gap 13 Estim Creat Clear Calc 47.3 Estimated GFR 56 POC Glucose 74 Random Glucose 105 Calcium 8.6 Magnesium Total Bilirubin 0.6 Direct Bilirubin AST 21 ALT 12 Alkaline Phosphatase 158 H Total Protein 6.5 Albumin 3.7 08/28/21 13:15 MCV MCH MCHC RDW Plt Count MPV Immature Gran % (Auto) Neut % (Auto) Lymph % (Auto) [place] % (Auto) Eos % (Auto) Baso % (Auto) Lymph # (Auto) [place] # (Auto) Eos # (Auto) Baso # (Auto) Abs Immat Gran (auto) Absolute Neuts (auto) Absolute Nucleated RBC Nucleated RBC % (auto) D-Dimer High Sensitivty Anion Gap Estim Creat Clear Calc Estimated GFR POC Glucose 87 Random Glucose Calcium Magnesium Total Bilirubin Direct Bilirubin AST ALT Alkaline Phosphatase Total Protein Albumin Imaging Radiologist's Impressions: Impressions Head CT 08/28/21 08:48 IMPRESSION: No acute findings. Head/Neck CTA 08/28/21 09:58 IMPRESSION: No intracranial hemorrhage or territorial infarction. 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 Right vertebral artery and basilar artery are patent. 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 This critical result was discussed with Dr. Javier on 08/28/2021 10:20 AM, and it was ascertained that the content and urgency of the report was understood at the time of direct communication. Assessment and Plan (1) Hypotension: Status: Acute (2) Occlusion of left vertebral artery: Status: Acute Plan 81-year-old woman placed on observation for dizziness and weakness Dizziness Mostly while standing, she is on multiple antihypertensives, will continue to hold Likely initially related to hypotension Monitor blood pressure closely On meclizine Hypotension. 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 BMI 37.4 Discussed importance of weight management as this is contributing to worsening of other comorbidities sign Hypothyroidism Continue levothyroxine History of paroxysmal atrial fibrillation No exacerbation Continue diltiazem and apixaban Coronary artery disease line continue aspirin and statin COPD. No exacerbation Continue albuterol and other necessary inhalers as needed Supplemental oxygen if needed DVT prophylaxis with Apixaban Attending Dr. Christy OBS Quality Stroke Does the patient have a stroke diagnosis?: No VTE Prior VTE?: No VTE Risk Level:: Medical - moderate - high VTE Device Contraindication: Treatment Not Indicated VTE Drug Contraindication: N/A - Med Ordered
--- NOTE | 2021-08-28 17:18 | PC.NURSE ---
patient a&ox3, pt brought from ed to overflow 3, monitoring and evaluation advisor applied- nsr 80s, vss, ivf running per order, call renteria within reach, will continue to monitor.
--- NOTE | 2021-08-28 19:39 | PHA.MEDREC ---
Pharmacy Consult ? Medication Reconciliation Pharmacy has reviewed the medication reconciliation completed by Ellie. There are no remarkable issues for provider's attention. Louise Melissa, VioletD
[2021-08-28] MEDS: carvediloL 25 MG TABLET PO (22:33)
[2021-08-28] MEDS: Dicyclomine HCl 10 MG CAPSULE PO (22:33)
[2021-08-28] MEDS: Furosemide 40 MG TABLET PO (22:33)
[2021-08-28] MEDS: Ascorbic Acid 500 MG TABLET PO (22:33)
[2021-08-28] MEDS: Apixaban 5 MG TABLET PO (22:33)
[2021-08-28] MEDS: Sucralfate Oral Suspension 1 GM/10 ML ORAL.SUSP PO (22:33)
[2021-08-29] MEDS: Acetaminophen 325 MG TABLET 650 MG PO (02:04)
[2021-08-29] MEDS: Omeprazole 20 MG CAPSULE.DR PO (05:30)
[2021-08-29] MEDS: Levothyroxine Sodium 100 MCG TABLET PO (05:30)
[2021-08-29 06:29] LABS: MANUAL DIFF FLAG NO
--- NOTE | 2021-08-29 06:49 | PC.NURSE ---
At 0645 pt had 13 beats of VTACH while using the bedpan, pt denies any symptoms, Dr. Hewitt was made aware.
[2021-08-29 07:02] LABS: Anion Gap 10 (12-20); Blood Urea Nitrogen 13 mg/dL (9-16); Calcium 8.6 mg/dL (8.4-10.2); Carbon Dioxide 30 mmol/L (22-29); Chloride 104 mmol/L (96-108); Creatinine Clr Calc Pharmacy 48.3; Estimated Glomerular Filt Rate 56; Glucose Random 111 mg/dL (60-115); Potassium 3.7 mmol/L (3.3-5.1); Sodium 140 mmol/L (135-145)
[2021-08-29 07:03] LABS: Basophils Percent Auto 0.3 % (0-2); Eosinophils Absolute Auto 0.1 X10*3/uL (0.0-0.4); Eosinophils Percent Auto 0.9 % (0-4); Hematocrit 32.9 % (37.0-47.0); Hemoglobin 10.5 g/dl (12.0-16.0); Imm Gran Abs Auto 0.03 X10*3/uL (0.00-0.03); Imm Gran Pct Auto 0.4 % (0.0-0.4); Lymphocytes Absolute Auto 2.5 X10*3/uL (1.2-4.9); Lymphocytes Percent Auto 31.8 % (20-40); Mean Corpuscular HGB Conc 31.9 g/dl (31.0-35.0); Mean Corpuscular Hemoglobin 27.8 pg (27.0-33.0); Mean Platelet Volume 9.9 fL (9.4-12.3); Monocytes Absolute Auto 0.8 X10*3/uL (0.1-1.2); Monocytes Percent Auto 10.5 % (2-11); Neutrophils Absolute Auto 4.5 x10*3/uL (2.0-8.3); Neutrophils Percent Auto 56.1 % (45-73); Platelet Count 265 X10*3/uL (160-400); Red Blood Count 3.78 X10*6/uL (4.20-5.50); Red Cell Distribution Width 13.6 % (11.0-16.0); White Blood Count 7.9 X10*3/uL (4.8-10.8)
[2021-08-29 07:12] LABS: Magnesium 1.6 mg/dL (1.6-2.6)
[2021-08-29 07:46] VITALS: BP 113/60; PULSE 76; RESP 18; TEMP 36.4; O2SAT 95
[2021-08-29] MEDS: Fluticasone/Vilanterol 200/25 BLST.W.DEV 1 PUFF INHALE (08:55)
[2021-08-29 08:56] VITALS: PULSE 74; RESP 16; O2SAT 95
[2021-08-29] MEDS: Dextrose 5 % and 0.45 % NaCl 1,000 ML 80 ML IVCONT (10:30)
[2021-08-29] MEDS: Apixaban 5 MG TABLET PO ×2 (10:32→22:01)
[2021-08-29] MEDS: Cholecalciferol (Vitamin D3) 25 MCG TABLET PO (10:32)
[2021-08-29] MEDS: DULoxetine HCl 30 MG CAPSULE.DR PO (10:32)
[2021-08-29] MEDS: Ezetimibe 10 MG TABLET PO (10:33)
[2021-08-29] MEDS: Aspirin 81 MG TAB.CHEW PO (10:33)
[2021-08-29] MEDS: Ferrous Sulfate 324 MG TABLET.DR PO (10:38)
--- NOTE | 2021-08-29 10:38 | MHC.CLN ---
RE: CONSULT PT REPORTED 34# OR MORE WT LOSS ON NURSING ADMISSION ASSESSMENT PREVIOUS WT HX FOLLOWS: 93KG (08/28/21) 91.5KG (08/03/21) X 30 DAYS = 1.6% NON-SIGNIFICANT WT CHANGE 91.6KG (05/22/21) [id number] =1.5% NON-SIGNIFICANT WT CHANGE 91.6KG (02/19/21) X 180DAYS = 1.5% NON-SIGNIFICANT WT CHANGE 102.5KG (09/21/2020) X 1 YEAR = 9% NON-SIGNIFICANT WT CHANGE PT DOES NOT TRIGGER FOR WT LOSS AT THIS TIME-REMAINS OBESE FOR HT CONTINUE CURRENT CARE PLAN
[2021-08-29] MEDS: Ascorbic Acid 500 MG TABLET PO ×2 (10:41→22:01)
[2021-08-29] MEDS: 0.9 % Sodium Chloride Flush 3 ML SYRINGE IVFLUSH ×2 (10:42→15:23)
[2021-08-29] MEDS: Atorvastatin Calcium 40 MG TABLET PO (10:43)
[2021-08-29 11:10] VITALS: BP 119/54; PULSE 76; RESP 20; TEMP 36.6; O2SAT 98
--- NOTE | 2021-08-29 12:08 | P.PNIM_ITS ---
Subjective Subjective Date of Service: 08/29/21 <Marlyn Shook NP - Last Filed: 08/29/21 15:43> 11/01/21 <Jac Christy MD - Last Filed: 11/01/21 07:17> Review of Systems Follow up dizziness dizzy with standing denied chest pain or sob some nausea with breakfast <Marlyn Shook NP - Last Filed: 08/29/21 15:43> Physical Exam Vital Signs: Vital Signs: Last Vital Signs Temp 97.8 F 08/29/21 11:10 Pulse 76 08/29/21 11:10 Resp 20 08/29/21 11:10 BP 119/54 L 08/29/21 11:10 Pulse Ox 98 08/29/21 11:10 O2 Del Method 08/29/21 11:10 O2 Flow Rate 2 08/29/21 11:10 Oxygen Flow Rate 2 08/26/21 13:05 BMI result Body Mass Index 38.7 <Marlyn Shook NP - Last Filed: 08/29/21 15:43> Appearing in no acute distress lung sounds are clear to auscultation heart regular rate rhythm, clear S1, S2 positive bowel sounds, abdomen is soft, nontender neuro patient is alert x3, no focal deficits <Marlyn Shook NP - Last Filed: 08/29/21 15:43> Objective Data Active Medications Acetaminophen (Acetaminophen 325 Mg Tablet) 650 mg PO Q6H PRN PRN Reason: Pain, Mild (Pain Scale 1-3) Last Admin: 08/29/21 02:04 Dose: 650 mg Documented By: FARHANA Albuterol Sulfate (Albuterol Sulfate (0.083%) 2.5 Mg/3 Ml Vial.Neb) 2.5 mg INHALE Q6H PRN PRN Reason: for wheezing Albuterol Sulfate (Albuterol Sulfate 90 Mcg 8 Gm Inhaler) 2 puff INHALE Q4H PRN PRN Reason: for respiratory distress Albuterol/Ipratropium (Albuterol/Iprat 2.5/0.5mg 3 Ml Ampul.Neb) 3 ml INHALE Q4H PRN PRN Reason: for wheezing Apixaban (Apixaban 5 Mg Tablet) 5 mg PO BID DANIEL Last Admin: 08/29/21 10:32 Dose: 5 mg Documented By: HO.LEWISK Ascorbic Acid (Ascorbic Acid 500 Mg Tablet) 500 mg PO BID [facility] Last Admin: 08/29/21 10:41 Dose: 500 mg Documented By: JUNI Aspirin (Aspirin 81 Mg Tab.Chew) 81 mg PO DAILY [facility] Last Admin: 08/29/21 10:33 Dose: 81 mg Documented By: JUNI Atorvastatin Calcium (Atorvastatin Calcium 40 Mg Tablet) 40 mg PO DAILY [facility] Last Admin: 08/29/21 10:43 Dose: 40 mg Documented By: JUNI Carvedilol (Carvedilol 25 Mg Tablet) 25 mg PO BID [facility]; Protocol Last Admin: 08/28/21 22:33 Dose: 25 mg Documented By: FARHANA Clotrimazole (Clotrimazole 1 % Cream 15 Gm Tube) 1 appl TOPICAL BID [facility]; Protocol Last Admin: 08/28/21 22:34 Dose: Not Given Documented By: FARHANA Non-Admin Reason: Med Not Available Dicyclomine HCl (Dicyclomine Hcl 10 Mg Capsule) 10 mg PO QID PRN PRN Reason: Abdominal Pain Last Admin: 08/28/21 22:33 Dose: 10 mg Documented By: FARHANA Diltiazem HCl (Diltiazem Hcl Cd 120 Mg Cap.Er.Deg) 120 mg PO DAILY [facility]; Protocol Last Admin: 08/28/21 10:25 Dose: Not Given Documented By: GERALDO Non-Admin Reason: Decreased Blood Pressure Docusate Sodium (Docusate Sodium 100 Mg Capsule) 100 mg PO BID PRN PRN Reason: consti Duloxetine HCl (Duloxetine Hcl 30 Mg Capsule.) 30 mg PO DAILY [facility] Last Admin: 08/29/21 10:32 Dose: 30 mg Documented By: JUNI Ezetimibe (Ezetimibe 10 Mg Tablet) 10 mg PO DAILY [facility] Last Admin: 08/29/21 10:33 Dose: 10 mg Documented By: JUNI Ferrous Sulfate (Ferrous Sulfate 324 Mg Tablet.) 324 mg PO DAILY [facility] Last Admin: 08/29/21 10:38 Dose: 324 mg Documented By: JUNI Fluticasone/Vilanterol (Fluticasone/Vilanterol 200/25 Blst.W.Dev) 1 puff INHALE RDAILY [facility] Last Admin: 08/29/21 08:55 Dose: 1 puff Documented By: FLORENTINO Furosemide (Furosemide 40 Mg Tablet) 40 mg PO BID [facility]; Protocol Last Admin: 08/28/21 22:33 Dose: 40 mg Documented By: FARHANA Guaifenesin (Guaifenesin La 600 Mg Tab.Er.12h) 600 mg PO Q12H PRN PRN Reason: congestion Dextrose/Sodium Chloride (D51/2ns) 1,000 mls @ 80 mls/hr IVCONT .[id number] [facility] Last Admin: 08/29/21 10:30 Dose: 80 mls/hr Documented By: JUNI Levothyroxine Sodium (Levothyroxine Sodium 100 Mcg Tablet) 100 mcg PO DAILY@0600 [facility] Last Admin: 08/29/21 05:30 Dose: 100 mcg Documented By: FARHANA Losartan Potassium (Losartan Potassium 50 Mg Tablet) 50 mg PO DAILY [facility]; Protocol Last Admin: 08/28/21 10:24 Dose: Not Given Documented By: GERALDO Non-Admin Reason: Decreased Blood Pressure Meclizine HCl (Meclizine Hcl 12.5 Mg Tablet) 12.5 mg PO DAILY PRN PRN Reason: for motion sickness Nitroglycerin (Nitroglycerin 0.4 Mg Tab.Subl) 0.4 mg SUBLINGUAL Q5M PRN PRN Reason: for angina Non-Formulary Medication (Cholestyramine-Aspartame [Prevalite]) 4 gm PO QIDACHS [facility] Omeprazole (Omeprazole 20 Mg Capsule.Dr) 20 mg PO DAILY@0630 [facility] Last Admin: 08/29/21 05:30 Dose: 20 mg Documented By: FARHANA Ondansetron HCl (Ondansetron Hcl 4 Mg/2 Ml Vial) 4 mg IVPUSH Q8H PRN PRN Reason: Nausea and Vomiting Potassium Chloride (Potassium Chloride Er 10 Meq Capsule.Er) 10 meq PO BID [facility] Last Admin: 08/29/21 10:32 Dose: 10 meq Documented By: JUNI Sodium Chloride (0.9 % Sodium Chloride Flush 3 Ml Syringe) 3 ml IVFLUSH QSHIFT [facility] Last Admin: 08/29/21 10:42 Dose: 3 ml Documented By: JUNI Sucralfate (Sucralfate Oral Suspension 1 Gm/10 Ml Oral.Susp) 1 gm PO BEDTIME [facility] Last Admin: 08/28/21 22:33 Dose: 1 gm Documented By: FARHANA Tiotropium [place] (Tiotropium [place] 18 Mcg Cap.W.Dev) 1 puff INHALE RDAILY [facility] Last Admin: 08/29/21 08:55 Dose: 1 puff Documented By: FLORENTINO Vitamin D (Cholecalciferol (Vitamin D3) 25 Mcg Tablet) 25 mcg PO DAILY [facility] Last Admin: 08/29/21 10:32 Dose: 25 mcg Documented By: JUNI <Marlyn Shook NP - Last Filed: 08/29/21 15:43> Labs CBC & Chem 7: : 08/29/21 05:56 08/29/21 05:56 <Marlyn Shook NP - Last Filed: 08/29/21 15:43> Labs: Laboratory Results - last 24 hr 08/28/21 08/29/21 08/29/21 13:15 05:56 05:56 MCV 87.0 MCH 27.8 MCHC 31.9 RDW 13.6 Plt Count 265 MPV 9.9 Immature Gran % (Auto) 0.4 Neut % (Auto) 56.1 Lymph % (Auto) 31.8 [place] % (Auto) 10.5 Eos % (Auto) 0.9 Baso % (Auto) 0.3 Lymph # (Auto) 2.5 [place] # (Auto) 0.8 Eos # (Auto) 0.1 Baso # (Auto) 0.0 Abs Immat Gran (auto) 0.03 Absolute Neuts (auto) 4.5 Absolute Nucleated RBC 0.000 Nucleated RBC % (auto) 0.0 Anion Gap 10 L Estim Creat Clear Calc 48.3 Estimated GFR 56 POC Glucose 87 Random Glucose 111 Calcium 8.6 Magnesium 1.6 <Marlyn Shook NP - Last Filed: 08/29/21 15:43> Microbiology Microbiology Results: Microbiology 08/26/21 14:44 Blood Culture - Preliminary Blood - Venous No growth after 48 hours. 08/26/21 13:43 Blood Culture - Preliminary Blood - Venous No growth after 48 hours. <Marlyn Shook NP - Last Filed: 08/29/21 15:43> Assessment and Plan (1) Hypotension: Status: Resolved <Marlyn Shook NP - Last Filed: 08/29/21 15:43> Assessment and Plan: 81-year-old woman placed on observation for dizziness and weakness Dizziness Mostly while standing, she is on multiple antihypertensives, will continue to hold Likely initially related to hypotension vs stroke MRI pending Monitor blood pressure closely On meclizine Hypotension. 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 BMI 37.4 Discussed importance of weight management as this is contributing to worsening of other comorbidities sign Hypothyroidism Continue levothyroxine History of paroxysmal atrial fibrillation No exacerbation Continue diltiazem and apixaban Coronary artery disease continue aspirin and statin COPD.? No exacerbation Continue albuterol and other necessary inhalers as needed Supplemental oxygen if needed DVT prophylaxis with Apixaban Attending Dr. Christy OBS <Marlyn Shook NP - Last Filed: 08/29/21 15:43> Quality Stroke Does the patient have a stroke diagnosis?: No <Marlyn Shook NP - Last Filed: 08/29/21 15:43> VTE Prior VTE?: No <Marlyn Shook NP - Last Filed: 08/29/21 15:43> VTE Risk Level:: Medical - moderate - high <Marlyn Shook NP - Last Filed: 08/29/21 15:43> VTE Device Contraindication: Treatment Not Indicated <Marlyn Shook NP - Last Filed: 08/29/21 15:43> VTE Drug Contraindication: N/A - Med Ordered <Marlyn Shook NP - Last Filed: 08/29/21 15:43>
--- NOTE | 2021-08-29 14:40 | MHC.CM.PN ---
CM met with pt to discuss PT recommendation for STR. Pt prefers to go home with [facility] and [facility]; however, she is willing to consider [facility] SNF's-pending Nickie rojas. Pt adamant she will not return to [facility]. Five SNF referrals made.
[2021-08-29 15:12] VITALS: BP 142/67; PULSE 80; RESP 18; TEMP 36.7; O2SAT 95
--- NOTE | 2021-08-29 16:03 | MHC.CM.PN ---
Per RNCM pt status has changed from OBS to Inpatient. IMM addressed, original to pt and copy in filed in chart.
--- NOTE | 2021-08-29 18:16 | PM.EVENT ---
Event Note Date of Service: 08/29/21 Event Note: patient had a panic episode during MRI and refused to do the MRI study without anxiolytic. 0.5 mg of IV lorazepam ordered
[2021-08-29 18:52] VITALS: BP 132/60; PULSE 78; RESP 18; TEMP 36.4; O2SAT 94
--- NOTE | 2021-08-29 20:00 | PC.NURSE ---
Patient refusing to go to MRI w/o anti anxiety meds. Dr Reveles ordered one time dose IV ativan. Ativan shortage at this time, none available from pharmacy at this time. ordered PO ativan, but MRI appointments ending, and Dr Reveles agreed to do MRI for morning instead for planned appointment with planned med administration. Patient agreeable with new plan. Ativan held.
[2021-08-29] MEDS: Sucralfate Oral Suspension 1 GM/10 ML ORAL.SUSP PO (22:01)
[2021-08-29] MEDS: Clotrimazole 1 % Cream 15 GM TUBE 1 APPL TOPICAL (22:03)
[2021-08-29 23:11] VITALS: BP 139/63; PULSE 98; RESP 18; TEMP 36.4; O2SAT 93
[2021-08-30] VITALS (7 sets, daily range): BP systolic 124–172; BP diastolic 58–81; PULSE 76–94; RESP 16–20; TEMP 36.1–36.9; O2SAT 95–97
[2021-08-30] MEDS: Dextrose 5 % and 0.45 % NaCl 1,000 ML 80 ML IVCONT ×2 (00:11→09:37)
--- NOTE | 2021-08-30 04:15 | PC.NURSE ---
Patient c/o bladder discomfort while voiding at approx 2100, patient voiding via purewick. Bladderscanned for 127ml. Patient denies pain, resting, non labored respirations. Left AC IV infiltrated. New #[id number] IV inserted right lower arm.
[2021-08-30] MEDS: Omeprazole 20 MG CAPSULE.DR PO (07:02)
[2021-08-30] MEDS: Levothyroxine Sodium 100 MCG TABLET PO (07:02)
[2021-08-30] MEDS: Fluticasone/Vilanterol 200/25 BLST.W.DEV 1 PUFF INHALE (07:26)
[2021-08-30] MEDS: Ezetimibe 10 MG TABLET PO (09:32)
[2021-08-30] MEDS: Ascorbic Acid 500 MG TABLET PO ×2 (09:32→20:39)
[2021-08-30] MEDS: Aspirin 81 MG TAB.CHEW PO (09:32)
[2021-08-30] MEDS: DULoxetine HCl 30 MG CAPSULE.DR PO (09:33)
[2021-08-30] MEDS: Apixaban 5 MG TABLET PO ×2 (09:33→20:39)
[2021-08-30] MEDS: Atorvastatin Calcium 40 MG TABLET PO (09:33)
[2021-08-30] MEDS: Cholecalciferol (Vitamin D3) 25 MCG TABLET PO (09:33)
[2021-08-30] MEDS: Clotrimazole 1 % Cream 15 GM TUBE 1 APPL TOPICAL ×2 (09:33→20:54)
[2021-08-30] MEDS: Ferrous Sulfate 324 MG TABLET.DR PO (09:33)
--- NOTE | 2021-08-30 09:34 | HO.PM.IMPN ---
Subjective Subjective Date of Service: 08/30/21 Review of Systems Follow up dizziness dizzy with standing denied chest pain or sob some nausea with breakfast Physical Exam Vital Signs: Vital Signs: Last Vital Signs Temp 97.7 F 08/30/21 07:26 Pulse 76 08/30/21 07:27 Resp 18 08/30/21 07:27 BP 143/66 H 08/30/21 07:26 Pulse Ox 95 08/30/21 07:26 O2 Del Method 08/30/21 07:26 O2 Flow Rate 2 08/30/21 07:26 Oxygen Flow Rate 2 08/26/21 13:05 BMI result Body Mass Index 38.7 Appearing in no acute distress lung sounds are clear to auscultation heart regular rate rhythm, clear S1, S2 positive bowel sounds, abdomen is soft, nontender neuro patient is alert x3, no focal deficits Objective Data Active Medications Acetaminophen (Acetaminophen 325 Mg Tablet) 650 mg PO Q6H PRN PRN Reason: Pain, Mild (Pain Scale 1-3) Last Admin: 08/29/21 02:04 Dose: 650 mg Documented By: FARHANA Albuterol Sulfate (Albuterol Sulfate (0.083%) 2.5 Mg/3 Ml Vial.Neb) 2.5 mg INHALE Q6H PRN PRN Reason: for wheezing Albuterol Sulfate (Albuterol Sulfate 90 Mcg 8 Gm Inhaler) 2 puff INHALE Q4H PRN PRN Reason: for respiratory distress Albuterol/Ipratropium (Albuterol/Iprat 2.5/0.5mg 3 Ml Ampul.Neb) 3 ml INHALE Q4H PRN PRN Reason: for wheezing Apixaban (Apixaban 5 Mg Tablet) 5 mg PO BID [facility] Last Admin: 08/29/21 22:01 Dose: 5 mg Documented By: URSULA Ascorbic Acid (Ascorbic Acid 500 Mg Tablet) 500 mg PO BID [facility] Last Admin: 08/29/21 22:01 Dose: 500 mg Documented By: URSULA Aspirin (Aspirin 81 Mg Tab.Chew) 81 mg PO DAILY [facility] Last Admin: 08/29/21 10:33 Dose: 81 mg Documented By: JUNI Atorvastatin Calcium (Atorvastatin Calcium 40 Mg Tablet) 40 mg PO DAILY [facility] Last Admin: 08/29/21 10:43 Dose: 40 mg Documented By: JUNI Carvedilol (Carvedilol 25 Mg Tablet) 25 mg PO BID [facility]; Protocol Last Admin: 08/28/21 22:33 Dose: 25 mg Documented By: FARHANA Clotrimazole (Clotrimazole 1 % Cream 15 Gm Tube) 1 appl TOPICAL BID [facility]; Protocol Last Admin: 08/29/21 22:03 Dose: 1 appl Documented By: URSULA Dicyclomine HCl (Dicyclomine Hcl 10 Mg Capsule) 10 mg PO QID PRN PRN Reason: Abdominal Pain Last Admin: 08/28/21 22:33 Dose: 10 mg Documented By: FARHANA Diltiazem HCl (Diltiazem Hcl Cd 120 Mg Cap.Er.Deg) 120 mg PO DAILY [facility]; Protocol Last Admin: 08/28/21 10:25 Dose: Not Given Documented By: GERALDO Non-Admin Reason: Decreased Blood Pressure Docusate Sodium (Docusate Sodium 100 Mg Capsule) 100 mg PO BID PRN PRN Reason: consti Duloxetine HCl (Duloxetine Hcl 30 Mg Capsule.) 30 mg PO DAILY [facility] Last Admin: 08/29/21 10:32 Dose: 30 mg Documented By: JUNI Ezetimibe (Ezetimibe 10 Mg Tablet) 10 mg PO DAILY [facility] Last Admin: 08/29/21 10:33 Dose: 10 mg Documented By: JUNI Ferrous Sulfate (Ferrous Sulfate 324 Mg Tablet.) 324 mg PO DAILY [facility] Last Admin: 08/29/21 10:38 Dose: 324 mg Documented By: JUNI Fluticasone/Vilanterol (Fluticasone/Vilanterol 200/25 Blst.W.Dev) 1 puff INHALE RDAILY [facility] Last Admin: 08/30/21 07:26 Dose: 1 puff Documented By: FLORENTINO Furosemide (Furosemide 40 Mg Tablet) 40 mg PO BID [facility]; Protocol Last Admin: 08/28/21 22:33 Dose: 40 mg Documented By: FARHANA Guaifenesin (Guaifenesin La 600 Mg Tab.Er.12h) 600 mg PO Q12H PRN PRN Reason: congestion Dextrose/Sodium Chloride (D51/2ns) 1,000 mls @ 80 mls/hr IVCONT .[id number] [facility] Last Admin: 08/30/21 00:11 Dose: 80 mls/hr Documented By: URSULA Levothyroxine Sodium (Levothyroxine Sodium 100 Mcg Tablet) 100 mcg PO DAILY@0600 [facility] Last Admin: 08/30/21 07:02 Dose: 100 mcg Documented By: URSULA Losartan Potassium (Losartan Potassium 50 Mg Tablet) 50 mg PO DAILY [facility]; Protocol Last Admin: 08/28/21 10:24 Dose: Not Given Documented By: GERALDO Non-Admin Reason: Decreased Blood Pressure Meclizine HCl (Meclizine Hcl 12.5 Mg Tablet) 12.5 mg PO DAILY PRN PRN Reason: for motion sickness Nitroglycerin (Nitroglycerin 0.4 Mg Tab.Subl) 0.4 mg SUBLINGUAL Q5M PRN PRN Reason: for angina Non-Formulary Medication (Cholestyramine-Aspartame [Prevalite]) 4 gm PO QIDACHS [facility] Omeprazole (Omeprazole 20 Mg Capsule.Dr) 20 mg PO DAILY@0630 [facility] Last Admin: 08/30/21 07:02 Dose: 20 mg Documented By: URSULA Ondansetron HCl (Ondansetron Hcl 4 Mg/2 Ml Vial) 4 mg IVPUSH Q8H PRN PRN Reason: Nausea and Vomiting Potassium Chloride (Potassium Chloride Er 10 Meq Capsule.Er) 10 meq PO BID [facility] Last Admin: 08/29/21 22:01 Dose: 10 meq Documented By: URSULA Sodium Chloride (0.9 % Sodium Chloride Flush 3 Ml Syringe) 3 ml IVFLUSH QSHIFT [facility] Last Admin: 08/30/21 00:12 Dose: Not Given Documented By: URSULA Non-Admin Reason: IV Running Sucralfate (Sucralfate Oral Suspension 1 Gm/10 Ml Oral.Susp) 1 gm PO BEDTIME [facility] Last Admin: 08/29/21 22:01 Dose: 1 gm Documented By: URSULA Tiotropium [place] (Tiotropium [place] 18 Mcg Cap.W.Dev) 1 puff INHALE RDAILY [facility] Last Admin: 08/30/21 07:26 Dose: 1 puff Documented By: FLORENTINO Vitamin D (Cholecalciferol (Vitamin D3) 25 Mcg Tablet) 25 mcg PO DAILY [facility] Last Admin: 08/29/21 10:32 Dose: 25 mcg Documented By: JUNI Labs CBC & Chem 7: 08/29/21 05:56 08/29/21 05:56 Assessment and Plan (1) Hypotension: Status: Acute Plan 81-year-old woman placed on observation for dizziness and weakness Dizziness Mostly while standing, she is on multiple antihypertensives, will continue to hold Likely initially related to hypotension vs stroke MRI pending, premedicate with antianxiolytics prior Monitor blood pressure closely On meclizine IV fluids PT consult recommend short-term rehab Hypotension. 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 BMI 37.4 Discussed importance of weight management as this is contributing to worsening of other comorbidities sign Hypothyroidism Continue levothyroxine History of paroxysmal atrial fibrillation No exacerbation Continue diltiazem and apixaban Coronary artery disease continue aspirin and statin COPD.? No exacerbation Continue albuterol and other necessary inhalers as needed Supplemental oxygen if needed DVT prophylaxis with Apixaban Attending Dr. Espinosa Continue hospitalization for treatment of dizziness requiring MRI and neurology consultation which are still pending Quality Stroke Does the patient have a stroke diagnosis?: No VTE Prior VTE?: No VTE Risk Level:: Medical - moderate - high VTE Device Contraindication: Treatment Not Indicated VTE Drug Contraindication: N/A - Med Ordered
--- NOTE | 2021-08-30 09:43 | PM.NEUROCN ---
History of Present Illness Data of Consult Service Date: 08/30/21 Primary Care Provider: Chantal Lay MD [facility] Reason for consult: Dizziness and vertebral stenosis 81 years old woman with multiple medical problems taking multiple medicines usually ambulating with the help of a cart if she went to a grocery store. She was in [employer] and was using 1 of those cards when she needed to go to bathroom. She went to the restroom and when she tried to come off commode she felt lightheaded and dizzy. There was no sense of spinning, any focal weakness or numbness, double vision, or loss of vision. There was no obvious confusion. She felt uncomfortable and put herself on the ground. Her helper called for embolus and she was brought here for she said that her speech now was not normal. 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 Diarrhea Diverticulitis DVT (deep venous thrombosis) Fibromyalgia GERD (gastroesophageal reflux disease) History of spinal stenosis HTN (hypertension) Hypercholesterolemia Hypothyroid Low back pain Lower extremity weakness Nasal congestion Obesity (BMI 30-39.9) Obstructive sleep apnea Otitis externa Paroxysmal atrial fibrillation Pernicious anemia Respiratory failure with hypoxia and hypercapnia Restrictive lung disease Spondylosis of lumbar spine Family History Family History Father Hypertension CVD (cardiovascular disease) Mother Colon cancer Sister Leukemia Sister Colon cancer Son Lung cancer Colon polyps Surgical History Surgical History H/O angioplasty H/O cardiac catheterization History of arthroplasty of left shoulder Hx of appendectomy Hx of cholecystectomy S/P BREANN-BSO (total abdominal hysterectomy and bilateral salpingo-oophorectomy) Social History Social History Household Members: None Housing: Apartment Do you presently have visiting nurse or other home services: Yes Alcohol intake: never Patient Tobacco Use Status: Former Tobacco user Tobacco use type: Cigarette Years Smoked: stopped 2009 e-Cigarette/Vaping Use: Never Used Second Hand Smoke Exposure: No service: No Current occupational status: retired Current occupational exposures/hazards: No Cognitive needs: No Hearing needs: No Vision needs: Yes Meds Allergies Allergy/AdvReac Type Severity Reaction Status Date / Time morphine [MORPHINE] Allergy Unknown RASH Verified 08/03/21 11:19 pregabalin [From LYRICA] Allergy Unknown NAUSEA, Verified 08/03/21 11:19 felt high on drugs Active Medications: Current Medications Acetaminophen (Acetaminophen 325 Mg Tablet) 650 mg PO Q6H PRN PRN Reason: Pain, Mild (Pain Scale 1-3) Last Admin: 08/29/21 02:04 Dose: 650 mg Albuterol Sulfate (Albuterol Sulfate (0.083%) 2.5 Mg/3 Ml Vial.Neb) 2.5 mg INHALE Q6H PRN PRN Reason: for wheezing Albuterol Sulfate (Albuterol Sulfate 90 Mcg 8 Gm Inhaler) 2 puff INHALE Q4H PRN PRN Reason: for respiratory distress Albuterol/Ipratropium (Albuterol/Iprat 2.5/0.5mg 3 Ml Ampul.Neb) 3 ml INHALE Q4H PRN PRN Reason: for wheezing Apixaban (Apixaban 5 Mg Tablet) 5 mg PO BID [facility] Last Admin: 08/30/21 09:33 Dose: 5 mg Ascorbic Acid (Ascorbic Acid 500 Mg Tablet) 500 mg PO BID [facility] Last Admin: 08/30/21 09:32 Dose: 500 mg Aspirin (Aspirin 81 Mg Tab.Chew) 81 mg PO DAILY [facility] Last Admin: 08/30/21 09:32 Dose: 81 mg Atorvastatin Calcium (Atorvastatin Calcium 40 Mg Tablet) 40 mg PO DAILY [facility] Last Admin: 08/30/21 09:33 Dose: 40 mg Carvedilol (Carvedilol 25 Mg Tablet) 25 mg PO BID [facility]; Protocol Last Admin: 08/28/21 22:33 Dose: 25 mg Clotrimazole (Clotrimazole 1 % Cream 15 Gm Tube) 1 appl TOPICAL BID [facility]; Protocol Last Admin: 08/30/21 09:33 Dose: 1 appl Dicyclomine HCl (Dicyclomine Hcl 10 Mg Capsule) 10 mg PO QID PRN PRN Reason: Abdominal Pain Last Admin: 08/28/21 22:33 Dose: 10 mg Diltiazem HCl (Diltiazem Hcl Cd 120 Mg Cap.Er.Deg) 120 mg PO DAILY [facility]; Protocol Last Admin: 08/28/21 10:25 Dose: Not Given Docusate Sodium (Docusate Sodium 100 Mg Capsule) 100 mg PO BID PRN PRN Reason: consti Duloxetine HCl (Duloxetine Hcl 30 Mg Capsule.Dr) 30 mg PO DAILY [facility] Last Admin: 08/30/21 09:33 Dose: 30 mg Ezetimibe (Ezetimibe 10 Mg Tablet) 10 mg PO DAILY [facility] Last Admin: 08/30/21 09:32 Dose: 10 mg Ferrous Sulfate (Ferrous Sulfate 324 Mg Tablet.) 324 mg PO DAILY [facility] Last Admin: 08/30/21 09:33 Dose: 324 mg Fluticasone/Vilanterol (Fluticasone/Vilanterol 200/25 Blst.W.Dev) 1 puff INHALE RDAILY [facility] Last Admin: 08/30/21 07:26 Dose: 1 puff Furosemide (Furosemide 40 Mg Tablet) 40 mg PO BID [facility]; Protocol Last Admin: 08/28/21 22:33 Dose: 40 mg Guaifenesin (Guaifenesin La 600 Mg Tab.Er.12h) 600 mg PO Q12H PRN PRN Reason: congestion Dextrose/Sodium Chloride (D51/2ns) 1,000 mls @ 80 mls/hr IVCONT .[id number] [facility] Last Admin: 08/30/21 09:37 Dose: 80 mls/hr Levothyroxine Sodium (Levothyroxine Sodium 100 Mcg Tablet) 100 mcg PO DAILY@0600 [facility] Last Admin: 08/30/21 07:02 Dose: 100 mcg Losartan Potassium (Losartan Potassium 50 Mg Tablet) 50 mg PO DAILY [facility]; Protocol Last Admin: 08/28/21 10:24 Dose: Not Given Meclizine HCl (Meclizine Hcl 12.5 Mg Tablet) 12.5 mg PO DAILY PRN PRN Reason: for motion sickness Nitroglycerin (Nitroglycerin 0.4 Mg Tab.Subl) 0.4 mg SUBLINGUAL Q5M PRN PRN Reason: for angina Non-Formulary Medication (Cholestyramine-Aspartame [Prevalite]) 4 gm PO QIDACHS [facility] Omeprazole (Omeprazole 20 Mg Capsule.Dr) 20 mg PO DAILY@0630 [facility] Last Admin: 08/30/21 07:02 Dose: 20 mg Ondansetron HCl (Ondansetron Hcl 4 Mg/2 Ml Vial) 4 mg IVPUSH Q8H PRN PRN Reason: Nausea and Vomiting Potassium Chloride (Potassium Chloride Er 10 Meq Capsule.Er) 10 meq PO BID [facility] Last Admin: 08/30/21 09:32 Dose: 10 meq Sodium Chloride (0.9 % Sodium Chloride Flush 3 Ml Syringe) 3 ml IVFLUSH QSHIFT [facility] Last Admin: 08/30/21 09:34 Dose: Not Given Sucralfate (Sucralfate Oral Suspension 1 Gm/10 Ml Oral.Susp) 1 gm PO BEDTIME [facility] Last Admin: 08/29/21 22:01 Dose: 1 gm Tiotropium [place] (Tiotropium [place] 18 Mcg Cap.W.Dev) 1 puff INHALE RDAILY [facility] Last Admin: 08/30/21 07:26 Dose: 1 puff Vitamin D (Cholecalciferol (Vitamin D3) 25 Mcg Tablet) 25 mcg PO DAILY [facility] Last Admin: 08/30/21 09:33 Dose: 25 mcg Home Medications Medication Instructions Recorded Confirmed Last Taken Type sucralfate 100 mg/mL oral 1 g PO BEDTIME 11/21/19 08/26/21 Unknown History suspension aspirin 81 mg tablet 81 mg PO DAILY 12/01/19 08/26/21 Unknown History cholecalciferol (vitamin D3) 25 25 mcg PO DAILY 12/01/19 08/26/21 Unknown History mcg (1,000 unit) capsule (Vitamin D3) dicyclomine 10 mg capsule 10 - 20 mg PO QID PRN Abdominal 12/01/19 08/26/21 Unknown History Pain ferrous sulfate 325 mg (65 mg 325 mg PO DAILY 12/01/19 08/26/21 Unknown History iron) tablet diltiazem HCl 120 mg 1 cap PO DAILY 08/26/21 08/26/21 Unknown History capsule,extended release 24 hr, controlled (DILT-XR) Physical Exam Vital Signs: Vital Signs: Last Vital Signs Temp 97.7 F 08/30/21 07:26 Pulse 76 08/30/21 07:27 Resp 18 08/30/21 07:27 BP 143/66 H 08/30/21 07:26 Pulse Ox 95 08/30/21 07:26 O2 Del Method 08/30/21 07:26 O2 Flow Rate 2 08/30/21 07:26 Oxygen Flow Rate 2 08/26/21 13:05 BMI result Body Mass Index 38.7 Neuro: Other: She was significantly obese woman in no acute distress. She was hiccuping frequently. Spontaneity and fluency of speech were normal. Comprehension was normal. Affect was anxious. Pupils were round reactive. Visual diallo seemed intact though she made some mistakes on left side. Face was pendulous and symmetrical. Tongue was midline. There was no obvious focal weakness though she has difficulty lifting her legs against gravity. She seemed to have significant arthritis and obesity. Deep tendon reflexes are absent with flexor plantars. Speech was normal except frequent interruption by hiccups Results Labs CBC & Chem 7: 08/29/21 05:56 08/29/21 05:56 Labs: Noncontrast head CT revealed [id number] chronic microvascular ischemic changes but otherwise no significant abnormality. Mild basal ganglia calcification was noted. CTA of brain and neck revealed occluded left vertebral artery with reconstitution and a 4.6 mm right MCA aneurysm. Microbiology Microbiology Results: Microbiology 08/26/21 14:44 Blood - Venous Blood Culture - Preliminary No growth after 48 hours. 08/26/21 13:43 Blood - Venous Blood Culture - Preliminary No growth after 48 hours. Assessment and Plan (1) Dizziness: Status: Acute Nonspecific type of dizziness with no clear indication of either vestibular disorder. Symptoms were not specific for vertebral artery ischemia either. I would consider bradycardia worse is hypotension or iatrogenic factors. Adjustment of medicines and appropriate common sense precautions are recommended. I noted that she has difficulty complaining MRI. MRI probably would not add any more significant data. An EEG on the other hand can be useful as per size reason for her dizziness has not been ascertained. (2) Vertebral artery stenosis: Status: Acute It was asymptomatic and treatment was control of vascular risk factors including anti-platelet agent, statin, and avoidance of hypertension (3) Aneurysm of middle cerebral artery: Status: Acute This was also asymptomatic. At this time no action was recommended other than repeating CTA of brain in a year time Procedures Date of Service Date of Service: 08/30/21
[2021-08-30] MEDS: LORazepam 1 MG TABLET PO (11:00)
--- NOTE | 2021-08-30 11:57 | MHC.CM.PN ---
Per MD Rounds, patient requires continued hospitalization due to pending Neurological Consult and an MRI. D/C plan is to STR vs Home with [facility] and home O2. CM will continue to follow.
[2021-08-30] MEDS: 0.9 % Sodium Chloride Flush 3 ML SYRINGE IVFLUSH ×2 (15:55→20:41)
[2021-08-30] MEDS: Sucralfate Oral Suspension 1 GM/10 ML ORAL.SUSP PO (20:40)
[2021-08-31] VITALS (12 sets, daily range): BP systolic 130–160; BP diastolic 64–93; PULSE 61–101; RESP 15–21; TEMP 36.2–37.1; O2SAT 95–96
[2021-08-31] MEDS: Levothyroxine Sodium 100 MCG TABLET PO (05:32)
[2021-08-31] MEDS: Omeprazole 20 MG CAPSULE.DR PO (05:33)
[2021-08-31] MEDS: Fluticasone/Vilanterol 200/25 BLST.W.DEV 1 PUFF INHALE (08:49)
[2021-08-31] MEDS: Albuterol Sulfate (0.083%) 2.5 MG/3 ML VIAL.NEB INHALE (08:55)
--- NOTE | 2021-08-31 09:07 | P.CDIC_ITS ---
CDI Concurrent Query Documentation Clarification: PHYSICIAN'S DOCUMENTATION REQUEST Date of Query: 08/31/21 09 Patient Name: Carly Unger Admit Date: 08/28/21 Dear Doctor, A review of the medical record indicates additional documentation may be needed. Please review below and update the documentation accordingly. Clinical Indicators: Risk Factors/Clinical Indicators/Treatments PMH: Congestive heart failure BNP 384 H Home medication: Furosemide 40 mg tab Please provide further specificity regarding the most likely type and acuity of CHF you are evaluating, treating, or monitoring: Type: * Systolic * Diastolic * Combined Systolic/Diastolic * Other ? please specify * Unable to determine Acuity: * Chronic * Acute on chronic * Unable to determine Use of terms such as suspected, likely, concern for, or probable (associated with a specific diagnosis that is being evaluated, monitored, or treated as if it exists) are acceptable and can be coded in the inpatient setting, when documented at the time of discharge. Thank you, Pema Leblanc [facility], CDIS Extension: [phone] Please use your independent medical judgment in providing your response. THIS QUERY IS PART OF THE PERMANENT MEDICAL RECORD Provider Response: CHF (CHF unspecified, chronic)
[2021-08-31] MEDS: Cholecalciferol (Vitamin D3) 25 MCG TABLET PO (10:16)
[2021-08-31] MEDS: Ezetimibe 10 MG TABLET PO (10:16)
[2021-08-31] MEDS: DULoxetine HCl 30 MG CAPSULE.DR PO (10:17)
[2021-08-31] MEDS: Apixaban 5 MG TABLET PO ×2 (10:17→21:18)
[2021-08-31] MEDS: Ferrous Sulfate 324 MG TABLET.DR PO (10:17)
[2021-08-31] MEDS: Atorvastatin Calcium 40 MG TABLET PO (10:17)
[2021-08-31] MEDS: Ascorbic Acid 500 MG TABLET PO ×2 (10:17→21:18)
[2021-08-31] MEDS: Aspirin 81 MG TAB.CHEW PO (10:18)
[2021-08-31] MEDS: 0.9 % Sodium Chloride Flush 3 ML SYRINGE IVFLUSH (10:18)
[2021-08-31] MEDS: Clotrimazole 1 % Cream 15 GM TUBE 1 APPL TOPICAL ×2 (10:20→21:22)
--- NOTE | 2021-08-31 11:15 | MHC.CM.PN ---
Per ROUNDS discussion, patient may be medically cleared for discharge, to STR, this afternoon (pending EEG) or tomorrow; Insurance Auth requested from [facility].
--- NOTE | 2021-08-31 15:57 | HO.PM.IMPN ---
Subjective Subjective Date of Service: 08/31/21 Interval History: Seen and examined this morning Follow-up for dizziness No shortness of breath no cough Review of Systems Review of Systems: Yes all other systems are reviewed and are negative Constitutional Constitutional: Denies chills and Denies fever(s) Cardiovascular Cardiovascular: Denies chest pain, Denies palpitations and Denies dyspnea Respiratory Respiratory: Denies cough and Denies dyspnea Endocrine Endocrine: Denies palpitations Physical Exam Vital Signs: Vital Signs: Last Vital Signs Temp 97.6 F 08/31/21 11:50 Pulse 85 08/31/21 15:48 Resp 21 H 08/31/21 11:50 BP 155/72 H 08/31/21 15:48 Pulse Ox 95 08/31/21 11:50 O2 Del Method 08/31/21 11:50 O2 Flow Rate 2 08/31/21 11:50 Oxygen Flow Rate 2 08/26/21 13:05 BMI result Body Mass Index 38.7 Const: General: cooperative, comfortable, no acute distress, alert and awake Nutritional Appearance: overweight Resp: Effort & Inspection: normal respiratory effort and able to speak in complete sentences Cardio: Rate: regular rate Heart sounds: S1 normal heart sound present and S2 normal heart sound present GI: Palpation (GI): Soft to palpation and nontender Extrem: General: Yes no pedal edema Objective Data Active Medications Acetaminophen (Acetaminophen 325 Mg Tablet) 650 mg PO Q6H PRN PRN Reason: Pain, Mild (Pain Scale 1-3) Last Admin: 08/29/21 02:04 Dose: 650 mg Documented By: FARHANA Albuterol Sulfate (Albuterol Sulfate (0.083%) 2.5 Mg/3 Ml Vial.Neb) 2.5 mg INHALE Q6H PRN PRN Reason: for wheezing Last Admin: 08/31/21 08:55 Dose: 2.5 mg Documented By: BECCA Albuterol Sulfate (Albuterol Sulfate 90 Mcg 8 Gm Inhaler) 2 puff INHALE Q4H PRN PRN Reason: for respiratory distress Albuterol/Ipratropium (Albuterol/Iprat 2.5/0.5mg 3 Ml Ampul.Neb) 3 ml INHALE Q4H PRN PRN Reason: for wheezing Apixaban (Apixaban 5 Mg Tablet) 5 mg PO BID DANIEL Last Admin: 08/31/21 10:17 Dose: 5 mg Documented By: KARTHIKEYAN Ascorbic Acid (Ascorbic Acid 500 Mg Tablet) 500 mg PO BID COUNT INCLUDES THE [facility] Last Admin: 08/31/21 10:17 Dose: 500 mg Documented By: KARTHIKEYAN Aspirin (Aspirin 81 Mg Tab.Chew) 81 mg PO DAILY COUNT INCLUDES THE [facility] Last Admin: 08/31/21 10:18 Dose: 81 mg Documented By: KARTHIKEYAN Atorvastatin Calcium (Atorvastatin Calcium 40 Mg Tablet) 40 mg PO DAILY COUNT INCLUDES THE [facility] Last Admin: 08/31/21 10:17 Dose: 40 mg Documented By: KARTHIKEYAN Carvedilol (Carvedilol 25 Mg Tablet) 25 mg PO BID COUNT INCLUDES [facility]; Protocol Last Admin: 08/28/21 22:33 Dose: 25 mg Documented By: CASTILLaverne Clotrimazole (Clotrimazole 1 % Cream 15 Gm Tube) 1 appl TOPICAL BID COUNT INCLUDES THE [facility]; Protocol Last Admin: 08/31/21 10:20 Dose: 1 appl Documented By: KARTHIKEYAN Dicyclomine HCl (Dicyclomine Hcl 10 Mg Capsule) 10 mg PO QID PRN PRN Reason: Abdominal Pain Last Admin: 08/28/21 22:33 Dose: 10 mg Documented By: FARHANA Diltiazem HCl (Diltiazem Hcl Cd 120 Mg Cap.Er.Deg) 120 mg PO DAILY COUNT [facility]CLUDES [facility]; Protocol Last Admin: 08/28/21 10:25 Dose: Not Given Documented By: GERALDO Non-Admin Reason: Decreased Blood Pressure Docusate Sodium (Docusate Sodium 100 Mg Capsule) 100 mg PO BID PRN PRN Reason: consti Duloxetine HCl (Duloxetine Hcl 30 Mg Capsule.) 30 mg PO DAILY COUNT INCLUDES THE [facility] Last Admin: 08/31/21 10:17 Dose: 30 mg Documented By: KARTHIKEYAN Ezetimibe (Ezetimibe 10 Mg Tablet) 10 mg PO DAILY COUNT INCLUDES [facility] Last Admin: 08/31/21 10:16 Dose: 10 mg Documented By: KARTHIKEYAN Ferrous Sulfate (Ferrous Sulfate 324 Mg Tablet.) 324 mg PO DAILY COUNT INCLUDES THE [facility] Last Admin: 08/31/21 10:17 Dose: 324 mg Documented By: KARTHIKEYAN Fluticasone/Vilanterol (Fluticasone/Vilanterol 200/25 Blst.W.Dev) 1 puff INHALE RDAILY COUNT INCLUDES THE [facility] Last Admin: 08/31/21 08:49 Dose: 1 puff Documented By: BECCA Furosemide (Furosemide 40 Mg Tablet) 40 mg PO BID COUNT INCLUDES THE [facility]; Protocol Last Admin: 08/28/21 22:33 Dose: 40 mg Documented By: FARHANA Guaifenesin (Guaifenesin La 600 Mg Tab.Er.12h) 600 mg PO Q12H PRN PRN Reason: congestion Levothyroxine Sodium (Levothyroxine Sodium 100 Mcg Tablet) 100 mcg PO DAILY@0600 COUNT INCLUDES THE [facility] Last Admin: 08/31/21 05:32 Dose: 100 mcg Documented By: ANAHY Losartan Potassium (Losartan Potassium 50 Mg Tablet) 50 mg PO DAILY COUNT INCLUDES THE [facility]; Protocol Last Admin: 08/28/21 10:24 Dose: Not Given Documented By: GERALDO Non-Admin Reason: Decreased Blood Pressure Meclizine HCl (Meclizine Hcl 12.5 Mg Tablet) 12.5 mg PO DAILY PRN PRN Reason: for motion sickness Nitroglycerin (Nitroglycerin 0.4 Mg Tab.Subl) 0.4 mg SUBLINGUAL Q5M PRN PRN Reason: for angina Non-Formulary Medication (Cholestyramine-Aspartame [Prevalite]) 4 gm PO QIDACHS COUNT INCLUDES THE [facility] Omeprazole (Omeprazole 20 Mg Capsule.Dr) 20 mg PO DAILY@0630 COUNT INCLUDES THE [facility] Last Admin: 08/31/21 05:33 Dose: 20 mg Documented By: ANAHY Ondansetron HCl (Ondansetron Hcl 4 Mg/2 Ml Vial) 4 mg IVPUSH Q8H PRN PRN Reason: Nausea and Vomiting Potassium Chloride (Potassium Chloride Er 10 Meq Capsule.Er) 10 meq PO BID COUNT INCLUDES THE [facility] Last Admin: 08/31/21 10:16 Dose: 10 meq Documented By: KARTHIKEYAN Sodium Chloride (0.9 % Sodium Chloride Flush 3 Ml Syringe) 3 ml IVFLUSH QSHIFT COUNT INCLUDES THE [facility] Last Admin: 08/31/21 10:18 Dose: 3 ml Documented By: KARTHIKEYAN Sucralfate (Sucralfate Oral Suspension 1 Gm/10 Ml Oral.Susp) 1 gm PO BEDTIME COUNT INCLUDES THE [facility] Last Admin: 08/30/21 20:40 Dose: 1 gm Documented By: ANAHY Tiotropium [place] (Tiotropium [place] 18 Mcg Cap.W.Dev) 1 puff INHALE RDAILY COUNT INCLUDES THE [facility] Last Admin: 08/31/21 08:49 Dose: 1 puff Documented By: BECCA Vitamin D (Cholecalciferol (Vitamin D3) 25 Mcg Tablet) 25 mcg PO DAILY COUNT INCLUDES THE [facility] Last Admin: 08/31/21 10:16 Dose: 25 mcg Documented By: KARTHIKEYAN Labs CBC & Chem 7: 08/29/21 05:56 08/29/21 05:56 Microbiology Microbiology Results: Microbiology 08/26/21 13:43 Blood Culture - Final Blood - Venous No growth after 5 days. Assessment and Plan (1) Dizziness: Status: Acute Plan 81-year-old woman placed on observation for dizziness and weakness Dizziness Mostly with movement Brain MRI negative for acute stroke Orthostatics negative prn meclizine PT consult recommend short-term rehab seen by neuro - rec EEG Hypotension. 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 BMI 37.4 Discussed importance of weight management as this is contributing to worsening of other comorbidities sign Hypothyroidism Continue levothyroxine History of paroxysmal atrial fibrillation No exacerbation Continue diltiazem and apixaban Coronary artery disease continue aspirin and statin COPD.? No exacerbation Continue albuterol and other necessary inhalers as needed Supplemental oxygen if needed DVT prophylaxis with Apixaban Attending Dr. Espinosa Continue hospitalization for treatment of dizziness and EEG Quality Stroke Does the patient have a stroke diagnosis?: No VTE Prior VTE?: No VTE Risk Level:: Medical - moderate - high VTE Device Contraindication: Treatment Not Indicated VTE Drug Contraindication: N/A - Med Ordered
[2021-08-31] MEDS: Sucralfate Oral Suspension 1 GM/10 ML ORAL.SUSP PO (21:18)
--- NOTE | 2021-09-01 | EEG_ITS ---
This is a 16-channel EEG with an EKG lead. The patient is reported awake during the tracing. Background EEG rhythm is 7 to 8 hertz, 5 to 30 microvolt posteriorly, lower amplitude fast anteriorly. Photic stimulation does not produce any significant driving. Hyperventilation is not performed. No sharp wave spikes or paroxysmal tendency noted. Cardiac lead does not reveal any significant abnormality. IMPRESSION: Mild slowing with no epileptic tendency. MD FRANKLIN Vogel/ITAL[place] / [id number]
[2021-09-01] MEDS: 0.9 % Sodium Chloride Flush 3 ML SYRINGE IVFLUSH ×2 (00:31→09:14)
[2021-09-01 03:52] VITALS: BP 145/69; PULSE 93; RESP 18; TEMP 36.8; O2SAT 95
[2021-09-01] MEDS: Omeprazole 20 MG CAPSULE.DR PO (06:13)
[2021-09-01] MEDS: Levothyroxine Sodium 100 MCG TABLET PO (06:13)
[2021-09-01 07:22] VITALS: BP 134/68; PULSE 96; RESP 19; TEMP 36.3; O2SAT 96
[2021-09-01] MEDS: Cholecalciferol (Vitamin D3) 25 MCG TABLET PO (09:08)
[2021-09-01] MEDS: dilTIAZem HCL CD 120 MG CAP.ER.DEG PO (09:09)
[2021-09-01] MEDS: Aspirin 81 MG TAB.CHEW PO (09:09)
[2021-09-01] MEDS: DULoxetine HCl 30 MG CAPSULE.DR PO (09:10)
[2021-09-01] MEDS: Ascorbic Acid 500 MG TABLET PO (09:10)
[2021-09-01] MEDS: Ezetimibe 10 MG TABLET PO (09:10)
[2021-09-01] MEDS: Ferrous Sulfate 324 MG TABLET.DR PO (09:11)
[2021-09-01] MEDS: Atorvastatin Calcium 40 MG TABLET PO (09:11)
[2021-09-01] MEDS: Apixaban 5 MG TABLET PO (09:11)
--- NOTE | 2021-09-01 11:27 | HO.PM.IMPN ---
Subjective Subjective Date of Service: 09/01/21 Interval History: Seen and examined this morning Follow-up for dizziness Still feeling dizzy upon standing, no dizziness at rest Review of Systems Review of Systems: Yes all other systems are reviewed and are negative Constitutional Constitutional: Denies chills and Denies fever(s) Cardiovascular Cardiovascular: Denies chest pain, Denies palpitations and Denies dyspnea Respiratory Respiratory: Denies cough and Denies dyspnea Gastrointestinal Gastrointestinal: Denies abdominal pain, Denies nausea and Denies vomiting Endocrine Endocrine: Denies palpitations Physical Exam Vital Signs: Vital Signs: Last Vital Signs Temp 97.4 F 09/01/21 07:22 Pulse 96 09/01/21 07:22 Resp 19 09/01/21 07:22 BP 134/68 09/01/21 07:22 Pulse Ox 96 09/01/21 07:22 O2 Del Method 09/01/21 07:22 O2 Flow Rate 2 09/01/21 07:22 Oxygen Flow Rate 2 08/26/21 13:05 BMI result Body Mass Index 38.7 Const: General: cooperative, comfortable, no acute distress, alert and awake Nutritional Appearance: overweight Resp: Effort & Inspection: normal respiratory effort and able to speak in complete sentences Cardio: Rate: regular rate Heart sounds: S1 normal heart sound present and S2 normal heart sound present GI: Palpation (GI): Soft to palpation and nontender Extrem: General: Yes no pedal edema Objective Data Active Medications Acetaminophen (Acetaminophen 325 Mg Tablet) 650 mg PO Q6H PRN PRN Reason: Pain, Mild (Pain Scale 1-3) Last Admin: 08/29/21 02:04 Dose: 650 mg Documented By: FARHANA Albuterol Sulfate (Albuterol Sulfate (0.083%) 2.5 Mg/3 Ml Vial.Neb) 2.5 mg INHALE Q6H PRN PRN Reason: for wheezing Last Admin: 08/31/21 08:55 Dose: 2.5 mg Documented By: BECCA Albuterol Sulfate (Albuterol Sulfate 90 Mcg 8 Gm Inhaler) 2 puff INHALE Q4H PRN PRN Reason: for respiratory distress Albuterol/Ipratropium (Albuterol/Iprat 2.5/0.5mg 3 Ml Ampul.Neb) 3 ml INHALE Q4H PRN PRN Reason: for wheezing Apixaban (Apixaban 5 Mg Tablet) 5 mg PO BID [facility] Last Admin: 09/01/21 09:11 Dose: 5 mg Documented By: DIPIKA Ascorbic Acid (Ascorbic Acid 500 Mg Tablet) 500 mg PO BID [facility] Last Admin: 09/01/21 09:10 Dose: 500 mg Documented By: DIPIKA Aspirin (Aspirin 81 Mg Tab.Chew) 81 mg PO DAILY [facility] Last Admin: 09/01/21 09:09 Dose: 81 mg Documented By: DIPIKA Atorvastatin Calcium (Atorvastatin Calcium 40 Mg Tablet) 40 mg PO DAILY [facility] Last Admin: 09/01/21 09:11 Dose: 40 mg Documented By: DIPIKA Carvedilol (Carvedilol 25 Mg Tablet) 25 mg PO BID [facility]; Protocol Last Admin: 08/28/21 22:33 Dose: 25 mg Documented By: FARHANA Clotrimazole (Clotrimazole 1 % Cream 15 Gm Tube) 1 appl TOPICAL BID [facility]; Protocol Last Admin: 08/31/21 21:22 Dose: 1 appl Documented By: DOBROTaryn Dicyclomine HCl (Dicyclomine Hcl 10 Mg Capsule) 10 mg PO QID PRN PRN Reason: Abdominal Pain Last Admin: 08/28/21 22:33 Dose: 10 mg Documented By: FARHANA Diltiazem HCl (Diltiazem Hcl Cd 120 Mg Cap.Er.Deg) 120 mg PO DAILY [facility]; Protocol Last Admin: 09/01/21 09:09 Dose: 120 mg Documented By: DIPIKA Docusate Sodium (Docusate Sodium 100 Mg Capsule) 100 mg PO BID PRN PRN Reason: consti Duloxetine HCl (Duloxetine Hcl 30 Mg Capsule.) 30 mg PO DAILY [facility] Last Admin: 09/01/21 09:10 Dose: 30 mg Documented By: DIPIKA Ezetimibe (Ezetimibe 10 Mg Tablet) 10 mg PO DAILY [facility] Last Admin: 09/01/21 09:10 Dose: 10 mg Documented By: DIPIKA Ferrous Sulfate (Ferrous Sulfate 324 Mg Tablet.) 324 mg PO DAILY [facility] Last Admin: 09/01/21 09:11 Dose: 324 mg Documented By: DIPIKA Fluticasone/Vilanterol (Fluticasone/Vilanterol 200/25 Blst.W.Dev) 1 puff INHALE RDAILY [facility] Last Admin: 09/01/21 07:34 Dose: Not Given Documented By: FLORENTINO Non-Admin Reason: Patient Refused Furosemide (Furosemide 40 Mg Tablet) 40 mg PO BID [facility]; Protocol Last Admin: 08/28/21 22:33 Dose: 40 mg Documented By: CASTILLaverne Guaifenesin (Guaifenesin La 600 Mg Tab.Er.12h) 600 mg PO Q12H PRN PRN Reason: congestion Levothyroxine Sodium (Levothyroxine Sodium 100 Mcg Tablet) 100 mcg PO DAILY@0600 [facility] Last Admin: 09/01/21 06:13 Dose: 100 mcg Documented By: ANYA Losartan Potassium (Losartan Potassium 50 Mg Tablet) 50 mg PO DAILY [facility]; Protocol Last Admin: 08/28/21 10:24 Dose: Not Given Documented By: GERALDO Non-Admin Reason: Decreased Blood Pressure Meclizine HCl (Meclizine Hcl 12.5 Mg Tablet) 12.5 mg PO DAILY PRN PRN Reason: for motion sickness Nitroglycerin (Nitroglycerin 0.4 Mg Tab.Subl) 0.4 mg SUBLINGUAL Q5M PRN PRN Reason: for angina Non-Formulary Medication (Cholestyramine-Aspartame [Prevalite]) 4 gm PO QIDACHS [facility] Omeprazole (Omeprazole 20 Mg Capsule.Dr) 20 mg PO DAILY@0630 [facility] Last Admin: 09/01/21 06:13 Dose: 20 mg Documented By: ANYA Ondansetron HCl (Ondansetron Hcl 4 Mg/2 Ml Vial) 4 mg IVPUSH Q8H PRN PRN Reason: Nausea and Vomiting Potassium Chloride (Potassium Chloride Er 10 Meq Capsule.Er) 10 meq PO BID [facility] Last Admin: 09/01/21 09:09 Dose: 10 meq Documented By: DIPIKA Sodium Chloride (0.9 % Sodium Chloride Flush 3 Ml Syringe) 3 ml IVFLUSH QSHIFT [facility] Last Admin: 09/01/21 09:14 Dose: 3 ml Documented By: DIPIKA Sucralfate (Sucralfate Oral Suspension 1 Gm/10 Ml Oral.Susp) 1 gm PO BEDTIME [facility] Last Admin: 08/31/21 21:18 Dose: 1 gm Documented By: CHUY Tiotropium [place] (Tiotropium [place] 18 Mcg Cap.W.Dev) 1 puff INHALE RDAILY [facility] Last Admin: 09/01/21 07:34 Dose: Not Given Documented By: FLORENTINO Non-Admin Reason: Patient Refused Vitamin D (Cholecalciferol (Vitamin D3) 25 Mcg Tablet) 25 mcg PO DAILY [facility] Last Admin: 09/01/21 09:08 Dose: 25 mcg Documented By: DIPIKA Labs CBC & Chem 7: 08/29/21 05:56 08/29/21 05:56 Microbiology Microbiology Results: Microbiology 08/26/21 14:44 Blood Culture - Final Blood - Venous No growth after 5 days. 08/26/21 13:43 Blood Culture - Final Blood - Venous No growth after 5 days. Assessment and Plan (1) Dizziness: Status: Acute Plan 81-year-old woman placed on observation for dizziness and weakness Dizziness Mostly with movement Brain MRI negative for acute stroke Orthostatics negative prn meclizine PT consult recommend short-term rehab seen by neuro - rec EEG, report pending Hypotension. 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 BMI 37.4 Discussed importance of weight management as this is contributing to worsening of other comorbidities sign Hypothyroidism Continue levothyroxine History of paroxysmal atrial fibrillation No exacerbation Continue diltiazem and apixaban Coronary artery disease continue aspirin and statin COPD.? No exacerbation Continue albuterol and other necessary inhalers as needed Supplemental oxygen if needed DVT prophylaxis with Apixaban Attending Dr. Espinosa Continue hospitalization for treatment of dizziness and EEG Quality Stroke Does the patient have a stroke diagnosis?: No VTE Prior VTE?: No VTE Risk Level:: Medical - moderate - high VTE Device Contraindication: Treatment Not Indicated VTE Drug Contraindication: N/A - Med Ordered
[2021-09-01 11:38] VITALS: BP 140/69; PULSE 95; RESP 19; TEMP 36.7; O2SAT 98
--- NOTE | 2021-09-01 12:09 | PM.DS ---
DS: Providers Provider Date of Service: 09/01/21 Date of admission: 08/28/21 13:54 Date of discharge: 09/01/21 Primary care physician: Chantal Lay MD Consults: 08/28/21 13:54 Consult to Neurology Routine Consulting Provider: [facility] Reason for consultation: dizziness, vertebral artery occlusion Has provider been notified: No Attending physician on discharge: Jonathon Espinosa Discharging clinician: Laurie Jaime DS: Diagnosis Discharge Diagnosis (1) Dizziness: Status: Acute DS: Summary Hospital Course Hospital Course: From H&P on day of admission 81-year-old woman presented to the ER with complaints of lightheadedness especially with standing worsen Saturday and on and off over the last several months.? She denied chest pain, shortness breath, nausea, vomiting, diarrhea, recent illness.? She did report that often on she does see a white flash on the left side but no other symptoms.? She denies any loss of consciousness.? She reports that she lives alone and over the weekend the lightheadedness had been so severe she decided to come to the ER for further evaluation.? Apparently she initially came to the ER on 08/26/2021 with this weakness and dizziness in the plan was to transfer to short-term rehab however patient declined.? At some point she was found to be hypotensive with systolic blood pressure in the 90s, she is on multiple antihypertensive medications.? After resolution of this plan was to send the patient home but her caregiver mentioned the frequent falls and dizziness and was concerned about this.? 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 Plan was to admit patient.? 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 She has been giving her regularly scheduled medications other than antihypertensives as well as IV fluids.? She will be placed on observation for dizziness. Dizziness Mostly with movement. Brain MRI negative for acute stroke. Orthostatics blood pressure negative. She was seen in consultation by Neurology who recommended EEG. EEG was obtained but report was pending at the time of discharge. She was seen by Physical therapy who recommended short-term rehab. She was treated with p.r.n. meclizine with no significant change in her symptoms. Hypotension. Severe was initially noted to be hypotensive on arrival. Her blood pressure medicine was placed on hold. Her blood pressure has rebounded and her Coreg has been resumed. Losartan and Lasix can be resumed as blood pressure allows. 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 Recommend outpatient follow up, likely with [facility] neurosurgery. No acute intervention required at this time. Chronic respiratory failure secondary to COPD. Patient was maintained on her home 2 L of supplemental oxygen. Time Spent with Patient Time attestation: Total time spent providing and/or coordinating discharge services: Discharge coordination time: Greater than 30 minutes Quality: Safe Use of Opioids Does Pt have an Active Cancer Diagnosis on the Problem List?: No Quality: Stroke Does the patient have a stroke diagnosis?: No Physical Exam Vital Signs: Vital Signs: Last Vital Signs Temp 98.0 F 09/01/21 11:38 Pulse 95 09/01/21 11:38 Resp 19 09/01/21 11:38 BP 140/69 H 09/01/21 11:38 Pulse Ox 98 09/01/21 11:38 O2 Del Method 09/01/21 11:38 O2 Flow Rate 2 09/01/21 11:38 Oxygen Flow Rate 2 08/26/21 13:05 BMI result Body Mass Index 38.7 Discharge Plan Discharge Patient Disposition: [facility] Discharge Diagnosis: Dizziness hypotension Referrals: [facility] [Outside] - 1 Week Po,Chantal Albrecht MD [Primary Care Provider] - 1 Week Discharge Medications: Continued (DME) PUREWICK See Rx Instructions .Route .MEDSUPPLY Qty: 90 3RF Rx Instructions: As directed (DME) stair lift and ramp See Rx Instructions .Route .MEDSUPPLY Qty: 1 0RF Rx Instructions: As directed clotrimazole 1 % cream See Rx Instructions topical BID Qty: 45 11RF Rx Instructions: apply to affected area topical 2 times a day; (DME) lancets [Accu-Chek Softclix Lancets[place] [facility] [place] Instructions .ROUTE .MEDSUPPLY Qty: 100 3RF Rx Instructions: As directed daily (DME) blood-glucose meter [Accu-Chek Ruth Plus Meter] Mis See Rx Instructions .ROUTE .MEDSUPPLY Qty: 1 0RF Rx Instructions: As directed test blood glucose daily (DME) Accu-Chek Ruth Plus test strp Strip See Rx Instructions .ROUTE .MEDSUPPLY Qty: 100 3RF Rx Instructions: test blood glucose daily (DME) blood-glucose meter [OneTouch Ultra2 Meter] Kit See Rx Instructions .Route Qty: 1 0RF Rx Instructions: As directed (DME) lancets [OneTouch UltraSoft Lancets] [facility] [place] Rx Instructions .Route Qty: 100 3RF Rx Instructions: As directed test blood glucose daily (DME) blood-glucose meter [OneTouch UltraMini] Kit See Rx Instructions .Route Qty: 1 0RF Rx Instructions: As directed fluticasone propion-salmeterol 500-50 mcg/dose blister with device 1 inh inhalation BID Qty: 60 11RF (DME) Wheelchair Ramp See Rx Instructions .Route .MEDSUPPLY Qty: 1 0RF Rx Instructions: As directed (DME) Transfer Bench [facility] [place] Rx Instructions .Route Qty: 1 0RF Rx Instructions: As directed for bath tub (DME) blood pressure monitor [Blood Pressure Kit] Kit See Rx Instructions .Route Qty: 1 0RF Rx Instructions: As directed cyanocobalamin (vitamin B-12) 1,000 mcg/mL solution 1,000 mcg IM Q4W 90 Days Qty: 4 5RF nitroglycerin 0.4 mg tablet, sublingual 0.4 mg sublingual Q5M PRN (Reason: for angina) 90 Days Qty: 25 0RF Spiriva with HandiHaler 18 mcg capsule, w/inhalation device 1 cap inhalation DAILY Qty: 90 3RF docusate sodium 100 mg capsule 100 mg PO BID PRN (Reason: consti) Qty: 60 11RF guaifenesin [Mucinex] 600 mg tablet extended release 12hr 600 mg PO Q12H PRN (Reason: congestion) Qty: 20 0RF levothyroxine 100 mcg tablet 100 mcg PO QAM Qty: 90 3RF duloxetine 30 mg capsule,delayed release(DR/EC) 30 mg PO DAILY Qty: 90 2RF atorvastatin 40 mg tablet 40 mg PO DAILY Qty: 90 3RF ezetimibe 10 mg tablet 10 mg PO DAILY Qty: 90 3RF Dexilant 30 mg capsule,biphase delayed releas 30 mg PO DAILY Qty: 90 3RF ascorbic acid (vitamin C) 500 mg tablet 500 mg PO BID Qty: 180 3RF (DME) [facility] Bed diagnosis I50.32 See Rx Instructions .Route .MEDSUPPLY Qty: 1 0RF Rx Instructions: As directed, GERMAN 99 (DME) Nebulizer supplies See Rx Instructions .Route .MEDSUPPLY Qty: 3 3RF Rx Instructions: As directed semaglutide 1 mg/dose (4 mg/3 mL) pen injector 1.5 mg subcut QWEEK 30 Days Qty: 5.625 11RF Rx Instructions: for 4 doses albuterol sulfate 2.5 mg /3 mL (0.083 %) solution for nebulization 2.5 mg inhalation Q6H PRN (Reason: for wheezing) Qty: 450 1RF Eliquis 5 mg tablet 5 mg PO BID 90 Days Qty: 180 3RF (DME) OneTouch Ultra Test Strip See Rx Instructions .ROUTE .COMPLEX Qty: 100 3RF Dose Instruction: DIRECTED TEST BLOOD GLUCOSE DAILY Rx Instructions: DIRECTED TEST BLOOD GLUCOSE DAILY ipratropium-albuterol 0.5 mg-3 mg(2.5 mg base)/3 mL solution for nebulization 3 ml inhalation Q4-6H PRN (Reason: for wheezing) Qty: 180 3RF carvedilol 25 mg tablet 25 mg PO BID 90 Days Qty: 180 2RF albuterol sulfate 90 mcg/actuation HFA aerosol inhaler 2 puff PO Q4H PRN (Reason: for respiratory distress) Qty: 8.5 0RF meloxicam 7.5 mg tablet 7.5 mg PO DAILY Qty: 20 0RF ferrous sulfate 325 mg (65 mg iron) Tablet 325 mg PO DAILY aspirin 81 mg Tablet 81 mg PO DAILY cholecalciferol (vitamin D3) [Vitamin D3] 25 mcg (1,000 unit) Capsule 25 mcg PO DAILY dicyclomine 10 mg Capsule 10 - 20 mg PO QID PRN (Reason: Abdominal Pain) diltiazem HCl [DILT-XR] 120 mg capsule,ext.rel 24h degradable 1 cap PO DAILY cholestyramine-aspartame [Prevalite] 4 gram powder in packet 4 g PO QIDACHS Qty: 120 1RF Rx Instructions: no meds 1 hr before/4-6 hr after dose (DME) hospital bed See Rx Instructions .Route .MEDSUPPLY Qty: 1 0RF Rx Instructions: As directed sucralfate 100 mg/mL suspension 1 g PO BEDTIME Changed meclizine 12.5 mg tablet 12.5 mg PO BID PRN (Reason: for motion sickness) Qty: 30 5RF Held potassium chloride 10 mEq tablet extended release 10 meq PO BID Qty: 180 3RF Hold Instructions: hold since lasix on hold. rec to repeat labs early next week and resume as needed furosemide 40 mg tablet 40 mg PO BID Qty: 180 3RF Hold Instructions: Can resume for leg edema or as blood pressure allows losartan 50 mg tablet 50 mg PO DAILY 90 Days Qty: 90 1RF Hold Instructions: Can resume if blood pressure allows Discharge Orders: Discharge Order (Routine); Ordered 09/01/21 Ordered By: Laurie Jaime Activity on Discharge: As tolerated Stand Alone Forms: Patient Portal Discharge page Other Ambulatory Orders: Basic Metabolic Panel (Routine) Timeframe: [id number] Facility: [facility] - Location: Laboratory Ordered By: Laurie Jaime Care Plan Goals: See below Health Concerns: Dizziness - can use meclizine bid prn for dizziness Aneurysm Right MCA bifurcation - outpatient follow up required. Likely needs [facility] neurosurgery eval. Call PCP for follow up appointment Left vertebral artery stenosis - continue aspirin, statin Losartan on hold can resume as BP allows Lasix on hold, monitor fluid status, can resume as BP allows. Repeat labs Saturday Repeat BMP Saturday and resume potassium/lasix as needed Plan of Treatment: see above Assessment: see discharge summary Discharge Date/Time: 09/01/21 16:30
[2021-09-01 12:57] LABS: COVID-19 Test Negative (Negative); IDNOW Serial# 16C4AD1C
--- NOTE | 2021-09-01 13:48 | MHC.CM.PN ---
Pt has been medically cleared for discharge today. Pt to discharge to [facility] via S ambulance. 2nd IMM addressed.
== END 2021-09-01 16:30 | disposition skilled nursing facility (03) | DRG 315 ==
LOC: HO.ED 08-28 10:55 → HO.EDOVER 08-28 16:06 → HO.IMC 08-28 19:00 → HO.EDOVER 08-29 15:52
PROVIDERS: Emergency Medicine; Internal Medicine; Nurse Practitioner Family; Physician Assistant; Admitting Provider Nurse Practitioner Acute Care; Emergency Provider Student in an Organized Health Care Education/Training Program; PCP Internal Medicine; Visit Provider Physician Assistant Medical
DX: I95.9 Hypotension, unspecified (principal); I50.42 Chronic combined systolic (congestive) and diastolic (congestive) heart failure; J96.11 Chronic respiratory failure with hypoxia; I25.10 Atherosclerotic heart disease of native coronary artery without angina pectoris; I11.0 Hypertensive heart disease with heart failure; E03.9 Hypothyroidism, unspecified; E11.9 Type 2 diabetes mellitus without complications; K21.9 Gastro-esophageal reflux disease without esophagitis; M79.7 Fibromyalgia; G47.33 Obstructive sleep apnea (adult) (pediatric); I65.02 Occlusion and stenosis of left vertebral artery; I44.0 Atrioventricular block, first degree; J44.9 Chronic obstructive pulmonary disease, unspecified; I67.1 Cerebral aneurysm, nonruptured; Z20.822 Contact with and (suspected) exposure to COVID-19; E66.9 Obesity, unspecified; I48.0 Paroxysmal atrial fibrillation; Z68.38 Body mass index [BMI] 38.0-38.9, adult; Z95.1 Presence of aortocoronary bypass graft; Z88.5 Allergy status to narcotic agent; Z88.8 Allergy status to other drugs, medicaments and biological substances; Z79.01 Long term (current) use of anticoagulants; Z79.82 Long term (current) use of aspirin; Z79.51 Long term (current) use of inhaled steroids; Z79.890 Hormone replacement therapy; Z79.899 Other long term (current) drug therapy
CPT/HCPCS: 36415; 70450; 70496; 70498; 70551; 71046; 74018; 80048; 80053; 80076; 81003; 82947; 83605; 83735; 83880; 84484; 85025; 85379; 85610; 87040; 87635; 93005; 94640; 95816; 96361; 96365; 96366; 96375; 97162; 99219; 99285; Q9967

== ENCOUNTER 2021-10-02 | Outpatient (REF) | payer OTHER, SELFPAY ==
[2021-10-03 16:29] LABS: Appearance Urine Cloudy; Color Urine Yellow; Glucose Urine UA Negative (Negative); Leukocyte Esterase Urine Moderate (2+) (Negative); Nitrite Urine Positive (Negative); Specific Gravity - Urine >= 1.030 (1.005-1.025); Urine Blood Trace (Negative); Urine Ketones Negative (Negative); Urine Protein 30 (1+) mg/dL (Neg-Trace)
[2021-10-03 16:54] LABS: RBC Urine 0-2 /HPF (0-2); UACC Culture Trigger YES; WBC Urine >50 /HPF (0-5)
[2021-10-03 16:55] LABS: Bacteria Urine 4+ (None Seen); Calcium Oxalate Crystals Urine Present; Granular Casts Urine Present; Hyaline Casts Urine 0-2 /LPF (0-2); WBC Clumps Urine Present
[2021-10-03 17:30] LABS: CDiff Gene PCR NEGATIVE (Negative)
[2021-10-03 17:50] LABS: Leukocytes Stool Qualitative FEW: < 2/OIF (NEGATIVE)
== END 2021-10-02 00:01 | disposition home or self-care (01) ==
LOC: HO.LNP
PROVIDERS: Visit Provider Internal Medicine
DX: K90.89 Other intestinal malabsorption (principal)
CPT/HCPCS: 81001; 87086; 87338; 87493; 89055

== ENCOUNTER 2021-11-01 13:26 | Emergency (ER) | payer OTHER, SELFPAY ==
[2021-11-01] VITALS (7 sets, daily range): BP systolic 155–178; BP diastolic 70–97; PULSE 74–108; RESP 16–18; TEMP 36.5–36.9; O2SAT 95–98; BMI 35.3
--- NOTE | ~2021-11-01 | CT_ITS ---
EXAMINATION: CTA Chest, Abdomen CLINICAL INFORMATION: Epigastric pain radiating to the back, evaluate for dissection COMPARISON: CTA chest on 02/19/2021 TECHNIQUE: Helical computed tomography was performed from the inferior neck through the pubic symphysis after administration of 85 mL Omnipaque 350 intravenous contrast. Multiplanar reconstructions are available for interpretation. MIPS images were performed and reviewed. DOSE LOWERING TECHNIQUES: This CT examination was performed using dose optimization techniques as appropriate, variously including the following: - Automated exposure control - Adjustment of mA and/or kV according to patient size (this includes techniques or standardized protocols for targeted exams were dose is matched to indication/reason for exam; i.e. extremities or head) - Use of degenerative construction technique Total DLP is 1446 mGy*cm. FINDINGS: Lungs: Mild apical predominant emphysematous disease. Unless attenuation and tree-in-bud opacities in the right upper lobe. There are scattered pulmonary nodules including a lateral right upper lobe nodule measuring 4 mm, a posterior right upper lobe nodule measuring 5 mm, and a lateral right lower lobe nodule measuring 4 mm There are multiple additional bilateral pulmonary nodules. Airways: The central airways are patent. Mild bronchial wall thickening. There is no bronchiectasis. Pleura: The pleural surfaces are normal bilaterally. There is no pleural effusion. There is no pneumothorax. Mediastinum/[place]: There are no pathologically enlarged mediastinal or hilar lymph nodes. Cardiovascular: The heart is globally normal in size. The thoracic aorta is normal in course and caliber. The main pulmonary artery is normal in caliber. There is no pericardial effusion or pericardial thickening. There is moderate mixed calcific and noncalcific atherosclerotic disease of the aortic arch and descending thoracic aorta. Liver: Normal in size and attenuation. No focal lesions. Gallbladder and bile ducts: Gallbladder not visualized. No intrahepatic or extrahepatic biliary ductal dilatation. Spleen: Normal in size and attenuation. Pancreas: Unremarkable. Adrenal glands: Unremarkable. Right kidney: Partially visualized right kidney with a large upper pole cyst There is no hydronephrosis or hydroureter. Left kidney: Partially visualized with a upper pole cyst. There is no hydronephrosis or hydroureter. Lymph nodes: There is no lymphadenopathy in the abdomen or pelvis. Gastrointestinal tract: Multiple surgical clips adjacent to the gastroesophageal junction. Visualized portions of the small and large bowel are normal in caliber without bowel wall thickening. Colonic diverticulosis is noted. Vasculature: The proximal abdominal aorta is normal in caliber. The celiac artery, SMA, and left renal artery are patent. There is moderate mixed calcific and noncalcific atherosclerotic disease. Additional findings: There is no intraperitoneal free air or fluid. Soft tissues: Unremarkable. Osseous structures: No lytic or blastic lesions identified. CT/CT abdomen pelvis w IV con IMPRESSION: 1. Normal caliber aorta. No evidence of dissection or aneurysm. Moderate mixed calcific and noncalcific atherosclerotic disease. 2. Right upper lobe ground glass attenuation and tree-in-bud opacities suggests small airways disease. 3. Bilateral pulmonary nodules. Many of these nodules were not present on the exam on 02/19/2021. Recommend short interval follow-up.
--- NOTE | 2021-11-01 13:37 | ED.FALL ---
HPI - Fall General Chief Complaint: Abdominal Pain <VENECIA Ramsey - Last Filed: 11/01/21 18:35> Stated Complaint: ABD PAIN <VENECIA Ramsey - Last Filed: 11/01/21 18:35> Time Seen by Provider: 11/01/21 13:28 <VENECIA Ramsey - Last Filed: 11/01/21 18:35> Source: patient <VENECIA Ramsey Last Filed: 11/01/21 18:35> Mode of arrival: ambulatory <VENECIA Ramsey - Last Filed: 11/01/21 18:35> Limitations: no limitations <VENECIA Ramsey Last Filed: 11/01/21 18:35> History of Present Illness HPI Narrative: 81-year-old female with extensive cardiac history, COPD, CHF, coronary artery disease, vetebral aneurysm and diabetes presents to the ED for 3 hours of epigastric abdominal pain and also 3 days of green diarrhea. Patient admits to recently being on new antibiotics but does not know the name. Patient recently discharged from half-way in September. Patient states no fever, chills, chest pain, shortness of breath, pleurisy, recent surgery, leg swelling, recent travel, or recent surgery. <VENECIA Ramsey Last Filed: 11/01/21 18:35> Related Data Home Medications: Home Medications Medication Instructions Recorded Confirmed sucralfate 100 mg/mL oral 1 g PO BEDTIME 11/21/19 08/26/21 suspension aspirin 81 mg tablet 81 mg PO DAILY 12/01/19 08/26/21 cholecalciferol (vitamin D3) 25 25 mcg PO DAILY 12/01/19 08/26/21 mcg (1,000 unit) capsule (Vitamin D3) dicyclomine 10 mg capsule 10 - 20 mg PO QID PRN Abdominal 12/01/19 08/26/21 Pain ferrous sulfate 325 mg (65 mg 325 mg PO DAILY 12/01/19 08/26/21 iron) tablet diltiazem HCl 120 mg 1 cap PO DAILY 08/26/21 08/26/21 capsule,extended release 24 hr, controlled (DILT-XR) Previous Rx's Medication Instructions Recorded PUREWICK #90 ea 04/25/20 stair lift and ramp #1 ea 08/31/20 Accu-Chek Ruth Plus Meter #1 ea 09/02/20 (blood-glucose meter) Accu-Chek Ruth Plus test strp #100 ea 09/02/20 (blood sugar diagnostic) Accu-Chek Softclix Lancets #100 ea 09/02/20 (lancets) blood-glucose meter (OneTouch #1 ea 09/14/20 Ultra2 Meter kit) lancets (OneTouch UltraSoft #100 ea 09/14/20 Lancets) blood-glucose meter (OneTouch #1 ea 09/16/20 UltraMini kit) Wheelchair Ramp #1 ea 10/06/20 Transfer Bench #1 ea 11/01/20 blood pressure monitor (Blood #1 ea 11/03/20 Pressure Kit) cyanocobalamin (vitamin B-12) 1,000 mcg IM Q4W 90 days #4 mL 11/09/20 1,000 mcg/mL injection solution potassium chloride 10 mEq 10 meq PO BID #180 tabs 12/05/20 tablet,extended release nitroglycerin 0.4 mg sublingual 0.4 mg sublingual Q5M PRN for 01/02/21 tablet angina 90 days #25 tabs hospital bed #1 ea 01/23/21 docusate sodium 100 mg capsule 100 mg PO BID PRN consti #60 caps 02/22/21 guaifenesin 600 mg tablet, 600 mg PO Q12H PRN congestion #20 03/03/21 extended release 12 hr (Mucinex) tabs ascorbic acid (vitamin C) 500 mg 500 mg PO BID #180 tabs 03/15/21 tablet atorvastatin 40 mg tablet 40 mg PO DAILY #90 tabs 03/15/21 dexlansoprazole 30 mg 30 mg PO DAILY #90 caps 03/15/21 capsule,biphase delayed release (Dexilant) ezetimibe 10 mg tablet 10 mg PO DAILY #90 tabs 03/15/21 furosemide 40 mg tablet 40 mg PO BID #180 tabs 03/15/21 levothyroxine 100 mcg tablet 100 mcg PO QAM #90 tabs 03/15/21 Nebulizer supplies #3 ea 03/22/21 Semi Electric Hospital Bed #1 ea 03/22/21 diagnosis I50.32 albuterol sulfate 2.5 mg/3 mL 2.5 mg (3 mL) inhalation Q6H PRN 05/01/21 (0.083 %) solution for nebulization for wheezing #450 mL apixaban 5 mg tablet (Eliquis) 5 mg PO BID 90 days #180 tabs 05/15/21 blood sugar diagnostic (OneTouch #100 strips 06/20/21 Ultra Test strips) losartan 50 mg tablet 50 mg PO DAILY 90 days #90 tabs 06/22/21 ipratropium 0.5 mg-albuterol 3 mg 3 ml inhalation Q4-6H PRN for 07/04/21 (2.5 mg base)/3 mL nebulization wheezing #180 mL soln carvedilol 25 mg tablet 25 mg PO BID 90 days #180 tabs 07/07/21 fluticasone 500 mcg-salmeterol 50 1 inh inhalation BID #60 ea 09/18/21 mcg/dose blistr powdr for inhalation clotrimazole 1 % topical cream See Rx Instructions topical BID 09/24/21 #45 grams nitrofurantoin macrocrystal 100 mg 100 mg PO BID #14 caps 10/03/21 capsule (Macrodantin) duloxetine 30 mg capsule,delayed 30 mg PO DAILY #90 caps 10/04/21 release meloxicam 7.5 mg tablet 7.5 mg PO DAILY #20 tabs 10/04/21 semaglutide 1 mg/dose (4 mg/3 mL) 1.5 mg (1.125 mL) subcut QWEEK 30 10/05/21 subcutaneous pen injector days #5.625 mL meclizine 12.5 mg tablet 12.5 mg PO BID PRN for motion 10/16/21 sickness #30 tabs albuterol sulfate 90 mcg/actuation 2 puff PO Q4H PRN for respiratory 10/19/21 aerosol inhaler distress #8.5 ea air mattress #1 ea 10/27/21 tiotropium bromide 18 mcg capsule 1 cap inhalation DAILY #90 ea 10/29/21 with inhalation device (Spiriva with HandiHaler) cholestyramine-aspartame 4 gram 4 g PO QIDACHS #120 packets 10/31/21 oral powder for susp in a packet (Prevalite) loperamide 2 mg capsule 2 mg PO QID PRN loose stool #14 11/01/21 caps cefuroxime axetil 250 mg tablet 250 mg PO BID 7 days #14 tabs 11/02/21 <VENECIA Ramsey - Last Filed: 11/01/21 18:35> Allergies/Adverse Reactions: Allergies Allergy/AdvReac Type Severity Reaction Status Date / Time morphine [MORPHINE] Allergy Unknown RASH Verified 10/05/21 16:21 pregabalin [From LYRICA] Allergy Unknown NAUSEA, Verified 10/05/21 16:21 felt high on drugs <VENECIA Ramsey - Last Filed: 11/01/21 18:35> Review of Systems Review of Systems: Epigastric abdominal pain, green diarrhea <VENECIA Ramsey - Last Filed: 11/01/21 18:35> Yes all other systems are reviewed and are negative <VENECIA Ramsey - Last Filed: 11/01/21 18:35> [facility] Past Medical History Medical History: Medical History (Updated 11/02/21 @ 01:51 by VENECIA Ricci) Abdominal aortic aneurysm Atrial fibrillation CAD (coronary artery disease) Carpal tunnel syndrome Chronic anticoagulation Chronic pain syndrome Clostridium difficile colitis Congestive heart failure COPD (chronic obstructive pulmonary disease) 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 Diarrhea Diverticulitis DVT (deep venous thrombosis) Fibromyalgia First degree atrioventricular block GERD (gastroesophageal reflux disease) History of spinal stenosis HTN (hypertension) Hypercholesterolemia Hypothyroid Low back pain Lower extremity weakness Nasal congestion Obesity (BMI 30-39.9) Obstructive sleep apnea Otitis externa Paroxysmal atrial fibrillation Pernicious anemia Respiratory failure with hypoxia and hypercapnia Restrictive lung disease Spondylosis of lumbar spine <VENECIA Ramsey - Last Filed: 11/01/21 18:35> Surgical History: Surgical History H/O angioplasty H/O cardiac catheterization History of arthroplasty of left shoulder Hx of appendectomy Hx of cholecystectomy S/P BREANN-BSO (total abdominal hysterectomy and bilateral salpingo-oophorectomy) <VENECIA Ramsey - Last Filed: 11/01/21 18:35> Family History Family History: Family History Father Hypertension CVD (cardiovascular disease) Mother Colon cancer Sister Leukemia Sister Colon cancer Son Lung cancer Colon polyps <VENECIA Ramsey - Last Filed: 11/01/21 18:35> Social History Social History: Social History Household Members: None Housing: Apartment Do you presently have visiting nurse or other home services: Yes Alcohol intake: never Patient Tobacco Use Status: Former Tobacco user Tobacco use type: Cigarette Years Smoked: stopped 2009 e-Cigarette/Vaping Use: Never Used Second Hand Smoke Exposure: No Use of substances other than those prescribed or required for medical reasons: No Advance Directives: Yes Advance Directives on File: Yes Advance Directives Date on File: 10/10/21 service: No Current occupational status: retired Current occupational exposures/hazards: No Cognitive needs: No Hearing needs: No Vision needs: Yes <VENECIA Ramsey Last Filed: 11/01/21 18:35> Physical Exam Vital Signs: Vital Signs: Last Vital Signs Temp 98.6 F 11/02/21 01:02 Pulse 88 11/02/21 01:02 Resp 16 11/02/21 01:02 BP 154/84 H 11/02/21 01:02 Pulse Ox 98 11/02/21 01:02 O2 Del Method 11/02/21 01:02 O2 Flow Rate 2 11/02/21 01:02 Oxygen Flow Rate 3 11/01/21 13:37 BMI result Body Mass Index 35.3 <VENECIA Ramsey - Last Filed: 11/01/21 18:35> Vital Signs: Last Vital Signs Temp 98.6 F 11/02/21 01:02 Pulse 88 11/02/21 01:02 Resp 16 11/02/21 01:02 BP 154/84 H 11/02/21 01:02 Pulse Ox 98 11/02/21 01:02 O2 Del Method 11/02/21 01:02 O2 Flow Rate 2 11/02/21 01:02 Oxygen Flow Rate 3 11/01/21 13:37 BMI result Body Mass Index 35.3 <VENECIA Ricci - Last Filed: 11/02/21 01:53> Const: General: cooperative, healthy appearing, comfortable, no acute distress, well developed, alert, awake and Physically active <VENECIA Ramsey Last Filed: 11/01/21 18:35> Orientation/consciousness: oriented to person, oriented to place, oriented to time and patient oriented x3 <Nathan Roberth, PA Last Filed: 11/01/21 18:35> HEENT: Head: Yes normal to inspection, Yes No palpable skull fracture present, Yes normocephalic, Yes atraumatic and No abrasion <VENECIA Ramsey Last Filed: 11/01/21 18:35> Eyes: General: appearance normal, both eyes and all related structures <VENECIA Ramsey Last Filed: 11/01/21 18:35> Neck: Neck: Yes normal visual inspection, Yes full ROM, Yes no lymphadenopathy, Yes no meningeal signs, Yes trachea midline, Yes supple, No anterior neck swelling and No tender <Nathan Roberth, [facility] Last Filed: 11/01/21 18:35> Chest: Chest palpation & inspection: normal inspection of the chest and normal palpation of entire chest wall <VENECIA Ramsey Last Filed: 11/01/21 18:35> Resp: Effort & Inspection: normal respiratory effort and able to speak in complete sentences <Nathan Lepe [facility] Last Filed: 11/01/21 18:35> Auscultation: clear to auscultation bilaterally <Nathan Lepe [facility] Last Filed: 11/01/21 18:35> Cardio: Jugular venous distension: no JVD <Nathan Roberth, [facility] Last Filed: 11/01/21 18:35> Heart sounds: S1 normal heart sound present and S2 normal heart sound present <VENECIA Ramsey Last Filed: 11/01/21 18:35> GI: Inspection: Yes normal to inspection and No abdominal wall ecchymosis <Nathan Lepe [facility] Last Filed: 11/01/21 18:35> Palpation (GI): Soft to palpation, not firm, Tenderness to palpation present (GI) in the epigastrum, no guarding and not rigid <VENECIA Ramsey Last Filed: 11/01/21 18:35> : General: No CVA tenderness and Yes no CVA tenderness <VENECIA Ramsey Last Filed: 11/01/21 18:35> Back/Spine/Pelvis: Back: no CVA tenderness, No CVA tenderness and No back tenderness <VENECIA Ramsey Last Filed: 11/01/21 18:35> Skin: General skin exam: no rashes or lesions noted and elasticity normal <VENECIA Ramsey Last Filed: 11/01/21 18:35> Neuro: General: oriented to person, oriented to place, oriented to time, patient oriented x3, gait normal, tone normal, moves all extremities, Normal light touch and pain sensation, no meningeal signs, no focal motor deficits and CN's II-XI intact bilaterally <VENECIA Ramsey Last Filed: 11/01/21 18:35> Extrem: Other: Lower extremities negative for swelling, pitting edema, or calf tenderness <VENECIA Ramsey Last Filed: 11/01/21 18:35> General: Yes normal to inspection and Yes full ROM <VENECIA Ramsey Last Filed: 11/01/21 18:35> Psych: Appearance: grossly normal, well kempt and not disheveled <VENECIA Ramsey Last Filed: 11/01/21 18:35> Course Course Course Narrative: Due to chronic history will do EKG and troponin. Labs ordered. Stool sample ordered check for C diff due to patient being on new antibiotic and recently came from half-way in September. Probably patient will need imaging of abdomen. <VENECIA Ramsey Last Filed: 11/01/21 18:35> Reevaluation(s) Reevaluation #1: Patient denies any chest pain or shortness of breath but due to patient stay epigastric pain radiating to back with elevated blood pressure patient was sent for chest CT to rule out dissection althoug patient denies chest pain/shortness of breath.. Patient also sent for abdominal CT scan to rule out colitis due to patient being abdominal pain with green diarrhea. Patient still refusing to given stool sample although she is having diarrhea. Patient denies given UA. Second troponin ordered. Sign out case to VENECIA Singh. Not suspecting PE. Patient sleeping comfortably in bed. <VENECIA Ramsey Last Filed: 11/01/21 18:35> Patient denies any chest pain or shortness of breath but due to patient stay epigastric pain radiating to back with elevated blood pressure patient was sent for chest CT to rule out dissection although patient denies chest pain/shortness of breath.. Patient also sent for abdominal CT scan to rule out colitis due to patient being abdominal pain with green diarrhea. Patient still refusing to given stool sample although she is having diarrhea. Patient denies given UA. Second troponin ordered. Sign out case to VENECIA Singh. Not suspecting PE. Patient sleeping comfortably in bed. <VENECIA Ricci - Last Filed: 11/02/21 01:53> Time: 18:20 <VENECIA Ramsey - Last Filed: 11/01/21 18:35> Reevaluation #2: CTA of the chest with normal caliber aorta, no evidence of dissection or aneurysm. Right upper lobe ground-glass attenuation and tree-in-bud opacities noted suggesting small airway disease, patient denies chest pain, shortness of breath or wheezing. Bilateral pulmonary nodules are noted, new from previous examinations, on patient's discharge I did educate her on this and advised her to follow-up with her PCP. I attached CTA results to patient's discharge for her to speak to her PCP about them. No signs of colitis at this time. Diarrhea likely secondary to viral infection. I do not suspect C diff as patient did not have elevated white blood cell count. Patient refusing to give a stool sample in refusing to give urine. Second troponin is pending at this time. Patient anticoagulated no sob unlikely PE <VENECIA Ricci - Last Filed: 11/02/21 01:53> Time: 19:25 <VENECIA Ricci Last Filed: 11/02/21 01:53> Reevaluation #3: Second troponin is not noted to not be doubling the delta, to note patient's baseline troponin is around 15, unlikley acs. No signs of disection or PE either. Patient's potassium was elevated however patient was given Lokelma. UA is pending. Patient unable to give of a stool sample however has not had any bowel movements since I took over. <VENECIA Ricci - Last Filed: 11/02/21 01:53> Time: 01:05 <VENECIA Ricci Last Filed: 11/02/21 01:53> Additional Reevaluation(s): 0151 Urine positive for infection be discharged with Ceftin. This could be contributing to patient's symptoms. Patient will be discharged home with prompt PCP follow-up. Advised to return with any new or worsening symptoms. At this time I feel comfortable with discharge. <VENECIA Ricci - Last Filed: 11/02/21 01:53> MDM - Fall MDM Narrative Medical decision making narrative: Abdominal pain. Diarrhea <VENECIA Ramsey - Last Filed: 11/01/21 18:35> Lab Data Result diagrams: : 11/01/21 14:28 11/01/21 15:49 <VENECIA Ramsey - Last Filed: 11/01/21 18:35> Labs: Lab Results 11/01/21 11/01/21 11/01/21 Range/Units 14:28 14:28 14:28 WBC 8.2 (4.8-10.8) X10*3/uL RBC 4.51 (4.20-5.50) X10*6/uL Hgb 12.2 (12.0-16.0) g/dl Hct 38.4 (37.0-47.0) % MCV 85.1 (80.0-98.0) fL MCH 27.1 (27.0-33.0) pg MCHC 31.8 (31.0-35.0) g/dl RDW 14.5 (11.0-16.0) % Plt Count 298 (160-400) X10*3/uL MPV 9.4 (9.4-12.3) fL Immature Gran % (Auto) 0.5 H (0.0-0.4) % Neut % (Auto) 60.2 (45-73) % Lymph % (Auto) 25.3 (20-40) % [place] % (Auto) 9.9 (2-11) % Eos % (Auto) 3.6 (0-4) % Baso % (Auto) 0.5 (0-2) % Lymph # (Auto) 2.1 (1.2-4.9) X10*3/uL [place] # (Auto) 0.8 (0.1-1.2) X10*3/uL Eos # (Auto) 0.3 (0.0-0.4) X10*3/uL Baso # (Auto) 0.0 (0.0-0.2) X10*3/uL Abs Immat Gran (auto) 0.04 H (0.00-0.03) X10*3/uL Absolute Neuts (auto) 4.9 (2.0-8.3) x10*3/uL Absolute Nucleated RBC 0.000 (0.0-0.012) X10*3/uL Nucleated RBC % (auto) 0.0 (0.0-0.2) /100WBC PT 12.3 (10.0-13.1) SEC INR 1.1 (0.9-1.1) APTT 33.8 (26.0-36.4) SEC Sodium (135-145) mmol/L Potassium (3.3-5.1) mmol/L Chloride (96-108) mmol/L Carbon Dioxide (22-29) mmol/L Anion Gap (12-20) BUN (9-16) mg/dL Creatinine (0.5-1.4) mg/dL Estim Creat Clear Calc Estimated GFR Random Glucose (60-115) mg/dL Calcium (8.4-10.2) mg/dL Total Bilirubin (0.0-1.0) mg/dL AST (5-31) U/L ALT (0-31) U/L Alkaline Phosphatase (39-117) U/L Troponin I High Sens 16.7 (<3.5-17.0) ng/L B-Natriuretic Peptide 187 H (<100) pg/mL Total Protein (6.5-8.0) g/dL Albumin (3.5-5.0) g/dL Lipase (8-78) U/L Urine Color Urine Appearance Urine pH (5.0-9.0) Ur Specific [place] (1.005-1.025) Urine Protein (Neg-Trace) mg/dL Urine Glucose (UA) (Negative) mg/dL Urine Ketones (Negative) mg/dL Urine Blood (Negative) Urine Nitrite (Negative) Ur Leukocyte Esterase (Negative) COVID-19 ([facility]) (Negative) COVID-19 Clin Com 11/01/21 11/01/21 11/01/21 Range/Units 15:49 19:41 19:41 WBC (4.8-10.8) X10*3/uL RBC (4.20-5.50) X10*6/uL Hgb (12.0-16.0) g/dl Hct (37.0-47.0) % MCV (80.0-98.0) fL MCH (27.0-33.0) pg MCHC (31.0-35.0) g/dl RDW (11.0-16.0) % Plt Count (160-400) X10*3/uL MPV (9.4-12.3) fL Immature Gran % (Auto) (0.0-0.4) % Neut % (Auto) (45-73) % Lymph % (Auto) (20-40) % [place] % (Auto) (2-11) % Eos % (Auto) (0-4) % Baso % (Auto) (0-2) % Lymph # (Auto) (1.2-4.9) X10*3/uL [place] # (Auto) (0.1-1.2) X10*3/uL Eos # (Auto) (0.0-0.4) X10*3/uL Baso # (Auto) (0.0-0.2) X10*3/uL Abs Immat Gran (auto) (0.00-0.03) X10*3/uL Absolute Neuts (auto) (2.0-8.3) x10*3/uL Absolute Nucleated RBC (0.0-0.012) X10*3/uL Nucleated RBC % (auto) (0.0-0.2) /100WBC PT (10.0-13.1) SEC INR (0.9-1.1) APTT (26.0-36.4) SEC Sodium 141 (135-145) mmol/L Potassium 5.5 H D (3.3-5.1) mmol/L Chloride 107 (96-108) mmol/L Carbon Dioxide 22 (22-29) mmol/L Anion Gap 18 (12-20) BUN 12 (9-16) mg/dL Creatinine 0.84 (0.5-1.4) mg/dL Estim Creat Clear Calc 51.9 Estimated GFR > 60 Random Glucose 88 (60-115) mg/dL Calcium 8.9 (8.4-10.2) mg/dL Total Bilirubin 0.4 (0.0-1.0) mg/dL AST 26 (5-31) U/L ALT 11 (0-31) U/L Alkaline Phosphatase 167 H (39-117) U/L Troponin I High Sens 19.7 H (<3.5-17.0) ng/L B-Natriuretic Peptide (<100) pg/mL Total Protein 6.2 L (6.5-8.0) g/dL Albumin 3.3 L (3.5-5.0) g/dL Lipase 15 (8-78) U/L Urine Color Urine Appearance Urine pH (5.0-9.0) Ur Specific [place] (1.005-1.025) Urine Protein (Neg-Trace) mg/dL Urine Glucose (UA) (Negative) mg/dL Urine Ketones (Negative) mg/dL Urine Blood (Negative) Urine Nitrite (Negative) Ur Leukocyte Esterase (Negative) COVID-19 ([facility]) Negative (Negative) COVID-19 Clin Com See Note 11/02/21 Range/Units 01:05 WBC (4.8-10.8) X10*3/uL RBC (4.20-5.50) X10*6/uL Hgb (12.0-16.0) g/dl Hct (37.0-47.0) % MCV (80.0-98.0) fL MCH (27.0-33.0) pg MCHC (31.0-35.0) g/dl RDW (11.0-16.0) % Plt Count (160-400) X10*3/uL MPV (9.4-12.3) fL Immature Gran % (Auto) (0.0-0.4) % Neut % (Auto) (45-73) % Lymph % (Auto) (20-40) % [place] % (Auto) (2-11) % Eos % (Auto) (0-4) % Baso % (Auto) (0-2) % Lymph # (Auto) (1.2-4.9) X10*3/uL [place] # (Auto) (0.1-1.2) X10*3/uL Eos # (Auto) (0.0-0.4) X10*3/uL Baso # (Auto) (0.0-0.2) X10*3/uL Abs Immat Gran (auto) (0.00-0.03) X10*3/uL Absolute Neuts (auto) (2.0-8.3) x10*3/uL Absolute Nucleated RBC (0.0-0.012) X10*3/uL Nucleated RBC % (auto) (0.0-0.2) /100WBC PT (10.0-13.1) SEC INR (0.9-1.1) APTT (26.0-36.4) SEC Sodium (135-145) mmol/L Potassium (3.3-5.1) mmol/L Chloride (96-108) mmol/L Carbon Dioxide (22-29) mmol/L Anion Gap (12-20) BUN (9-16) mg/dL Creatinine (0.5-1.4) mg/dL Estim Creat Clear Calc Estimated GFR Random Glucose (60-115) mg/dL Calcium (8.4-10.2) mg/dL Total Bilirubin (0.0-1.0) mg/dL AST (5-31) U/L ALT (0-31) U/L Alkaline Phosphatase (39-117) U/L Troponin I High Sens (<3.5-17.0) ng/L B-Natriuretic Peptide (<100) pg/mL Total Protein (6.5-8.0) g/dL Albumin (3.5-5.0) g/dL Lipase (8-78) U/L Urine Color Yellow Urine Appearance Clear Urine pH 6.0 (5.0-9.0) Ur Specific [place] >= 1.030 H (1.005-1.025) Urine Protein Negative (Neg-Trace) mg/dL Urine Glucose (UA) Negative (Negative) mg/dL Urine Ketones Negative (Negative) mg/dL Urine Blood Negative (Negative) Urine Nitrite Negative (Negative) Ur Leukocyte Esterase Moderate (2+) H (Negative) COVID-19 ([facility]) (Negative) COVID-19 Clin Com <VENECIA Ramsey - Last Filed: 11/01/21 18:35> Lab Results 11/01/21 11/01/21 11/01/21 Range/Units 14:28 14:28 14:28 WBC 8.2 (4.8-10.8) X10*3/uL RBC 4.51 (4.20-5.50) X10*6/uL Hgb 12.2 (12.0-16.0) g/dl Hct 38.4 (37.0-47.0) % MCV 85.1 (80.0-98.0) fL MCH 27.1 (27.0-33.0) pg MCHC 31.8 (31.0-35.0) g/dl RDW 14.5 (11.0-16.0) % Plt Count 298 (160-400) X10*3/uL MPV 9.4 (9.4-12.3) fL Immature Gran % (Auto) 0.5 H (0.0-0.4) % Neut % (Auto) 60.2 (45-73) % Lymph % (Auto) 25.3 (20-40) % [place] % (Auto) 9.9 (2-11) % Eos % (Auto) 3.6 (0-4) % Baso % (Auto) 0.5 (0-2) % Lymph # (Auto) 2.1 (1.2-4.9) X10*3/uL [place] # (Auto) 0.8 (0.1-1.2) X10*3/uL Eos # (Auto) 0.3 (0.0-0.4) X10*3/uL Baso # (Auto) 0.0 (0.0-0.2) X10*3/uL Abs Immat Gran (auto) 0.04 H (0.00-0.03) X10*3/uL Absolute Neuts (auto) 4.9 (2.0-8.3) x10*3/uL Absolute Nucleated RBC 0.000 (0.0-0.012) X10*3/uL Nucleated RBC % (auto) 0.0 (0.0-0.2) /100WBC PT 12.3 (10.0-13.1) SEC INR 1.1 (0.9-1.1) APTT 33.8 (26.0-36.4) SEC Sodium (135-145) mmol/L Potassium (3.3-5.1) mmol/L Chloride (96-108) mmol/L Carbon Dioxide (22-29) mmol/L Anion Gap (12-20) BUN (9-16) mg/dL Creatinine (0.5-1.4) mg/dL Estim Creat Clear Calc Estimated GFR Random Glucose (60-115) mg/dL Calcium (8.4-10.2) mg/dL Total Bilirubin (0.0-1.0) mg/dL AST (5-31) U/L ALT (0-31) U/L Alkaline Phosphatase (39-117) U/L Troponin I High Sens 16.7 (<3.5-17.0) ng/L B-Natriuretic Peptide 187 H (<100) pg/mL Total Protein (6.5-8.0) g/dL Albumin (3.5-5.0) g/dL Lipase (8-78) U/L Urine Color Urine Appearance Urine pH (5.0-9.0) Ur Specific [place] (1.005-1.025) Urine Protein (Neg-Trace) mg/dL Urine Glucose (UA) (Negative) mg/dL Urine Ketones (Negative) mg/dL Urine Blood (Negative) Urine Nitrite (Negative) Ur Leukocyte Esterase (Negative) COVID-19 ([facility]) (Negative) COVID-19 Clin Com 11/01/21 11/01/21 11/01/21 Range/Units 15:49 19:41 19:41 WBC (4.8-10.8) X10*3/uL RBC (4.20-5.50) X10*6/uL Hgb (12.0-16.0) g/dl Hct (37.0-47.0) % MCV (80.0-98.0) fL MCH (27.0-33.0) pg MCHC (31.0-35.0) g/dl RDW (11.0-16.0) % Plt Count (160-400) X10*3/uL MPV (9.4-12.3) fL Immature Gran % (Auto) (0.0-0.4) % Neut % (Auto) (45-73) % Lymph % (Auto) (20-40) % [place] % (Auto) (2-11) % Eos % (Auto) (0-4) % Baso % (Auto) (0-2) % Lymph # (Auto) (1.2-4.9) X10*3/uL [place] # (Auto) (0.1-1.2) X10*3/uL Eos # (Auto) (0.0-0.4) X10*3/uL Baso # (Auto) (0.0-0.2) X10*3/uL Abs Immat Gran (auto) (0.00-0.03) X10*3/uL Absolute Neuts (auto) (2.0-8.3) x10*3/uL Absolute Nucleated RBC (0.0-0.012) X10*3/uL Nucleated RBC % (auto) (0.0-0.2) /100WBC PT (10.0-13.1) SEC INR (0.9-1.1) APTT (26.0-36.4) SEC Sodium 141 (135-145) mmol/L Potassium 5.5 H D (3.3-5.1) mmol/L Chloride 107 (96-108) mmol/L Carbon Dioxide 22 (22-29) mmol/L Anion Gap 18 (12-20) BUN 12 (9-16) mg/dL Creatinine 0.84 (0.5-1.4) mg/dL Estim Creat Clear Calc 51.9 Estimated GFR > 60 Random Glucose 88 (60-115) mg/dL Calcium 8.9 (8.4-10.2) mg/dL Total Bilirubin 0.4 (0.0-1.0) mg/dL AST 26 (5-31) U/L ALT 11 (0-31) U/L Alkaline Phosphatase 167 H (39-117) U/L Troponin I High Sens 19.7 H (<3.5-17.0) ng/L B-Natriuretic Peptide (<100) pg/mL Total Protein 6.2 L (6.5-8.0) g/dL Albumin 3.3 L (3.5-5.0) g/dL Lipase 15 (8-78) U/L Urine Color Urine Appearance Urine pH (5.0-9.0) Ur Specific [place] (1.005-1.025) Urine Protein (Neg-Trace) mg/dL Urine Glucose (UA) (Negative) mg/dL Urine Ketones (Negative) mg/dL Urine Blood (Negative) Urine Nitrite (Negative) Ur Leukocyte Esterase (Negative) COVID-19 ([facility]) Negative (Negative) COVID-19 Clin Com See Note 11/02/21 Range/Units 01:05 WBC (4.8-10.8) X10*3/uL RBC (4.20-5.50) X10*6/uL Hgb (12.0-16.0) g/dl Hct (37.0-47.0) % MCV (80.0-98.0) fL MCH (27.0-33.0) pg MCHC (31.0-35.0) g/dl RDW (11.0-16.0) % Plt Count (160-400) X10*3/uL MPV (9.4-12.3) fL Immature Gran % (Auto) (0.0-0.4) % Neut % (Auto) (45-73) % Lymph % (Auto) (20-40) % [place] % (Auto) (2-11) % Eos % (Auto) (0-4) % Baso % (Auto) (0-2) % Lymph # (Auto) (1.2-4.9) X10*3/uL [place] # (Auto) (0.1-1.2) X10*3/uL Eos # (Auto) (0.0-0.4) X10*3/uL Baso # (Auto) (0.0-0.2) X10*3/uL Abs Immat Gran (auto) (0.00-0.03) X10*3/uL Absolute Neuts (auto) (2.0-8.3) x10*3/uL Absolute Nucleated RBC (0.0-0.012) X10*3/uL Nucleated RBC % (auto) (0.0-0.2) /100WBC PT (10.0-13.1) SEC INR (0.9-1.1) APTT (26.0-36.4) SEC Sodium (135-145) mmol/L Potassium (3.3-5.1) mmol/L Chloride (96-108) mmol/L Carbon Dioxide (22-29) mmol/L Anion Gap (12-20) BUN (9-16) mg/dL Creatinine (0.5-1.4) mg/dL Estim Creat Clear Calc Estimated GFR Random Glucose (60-115) mg/dL Calcium (8.4-10.2) mg/dL Total Bilirubin (0.0-1.0) mg/dL AST (5-31) U/L ALT (0-31) U/L Alkaline Phosphatase (39-117) U/L Troponin I High Sens (<3.5-17.0) ng/L B-Natriuretic Peptide (<100) pg/mL Total Protein (6.5-8.0) g/dL Albumin (3.5-5.0) g/dL Lipase (8-78) U/L Urine Color Yellow Urine Appearance Clear Urine pH 6.0 (5.0-9.0) Ur Specific [place] >= 1.030 H (1.005-1.025) Urine Protein Negative (Neg-Trace) mg/dL Urine Glucose (UA) Negative (Negative) mg/dL Urine Ketones Negative (Negative) mg/dL Urine Blood Negative (Negative) Urine Nitrite Negative (Negative) Ur Leukocyte Esterase Moderate (2+) H (Negative) COVID-19 (VALARIE) (Negative) COVID-19 Clin Com <VENECIA Ricci - Last Filed: 11/02/21 01:53> ECG Data Interpretation: Sinus rhythm. Ventricular rate 100. Pr interval 204. QRS 86. QTC 459. Negative STEMI <VENECIA Ramsey Last Filed: 11/01/21 18:35> Critical Care Time Critical Care Time Critical Care Time: No <VENECIA Ricci Last Filed: 11/02/21 01:53> Discharge Plan Discharge Clinical Impression: Abdominal pain, Diarrhea, Acute UTI <VENECIA Ramsey Last Filed: 11/01/21 18:35> Patient Disposition: Home, Self-Care <VENECIA Ramsey Last Filed: 11/01/21 18:35> Instructions: Acute Diarrhea (ED), Abdominal Pain (ED), Pulmonary Nodules (ED), Urinary Tract Infection in Older Adults (ED) <VENECIA Ramsey Last Filed: 11/01/21 18:35> Additional Instructions: Take your medications as prescribed. If you were prescribed antibiotics today, it is important that you take your medication to their entirety, do not skip any doses, do not finish them early. Follow-up with your primary care provider this week. Follow up with GI if needed information below Drink plenty of fluids Return to the emergency department with new or worsening symptoms. Such as fevers, chills, chest pain, shortness of breath, nausea, vomiting, dizziness, headache, vision changes, lethargy In case of emergency call 911 CT/CT abdomen pelvis w IV con IMPRESSION: ? 1.? Normal caliber aorta. No evidence of dissection or aneurysm. Moderate mixed calcific and noncalcific atherosclerotic disease. 2.? Right upper lobe ground glass attenuation and tree-in-bud opacities suggests small airways disease. 3.? Bilateral pulmonary nodules. Many of these nodules were not present on the exam on 02/19/2021. Recommend short interval follow-up. ? <VENECIA Ramsey - Last Filed: 11/01/21 18:35> Prescriptions: New loperamide 2 mg capsule 2 mg PO QID PRN (Reason: loose stool) Qty: 14 0RF cefuroxime axetil 250 mg tablet 250 mg PO BID 7 Days Qty: 14 0RF No Action (DME) PUREWICK See Rx Instructions .Route .MEDSUPPLY Qty: 90 3RF Rx Instructions: As directed (DME) stair lift and ramp See Rx Instructions .Route .MEDSUPPLY Qty: 1 0RF Rx Instructions: As directed (DME) lancets [Accu-Chek Softclix Lancets] [facility] See Rx Instructions .ROUTE .MEDSUPPLY Qty: 100 3RF Rx Instructions: As directed daily (DME) blood-glucose meter [Accu-Chek Ruth Plus Meter] Misc See Rx Instructions .ROUTE .MEDSUPPLY Qty: 1 0RF Rx Instructions: As directed test blood glucose daily (DME) Accu-Chek Ruth Plus test strp Strip See Rx Instructions .ROUTE .MEDSUPPLY Qty: 100 3RF Rx Instructions: test blood glucose daily (DME) blood-glucose meter [OneTouch Ultra2 Meter] Kit See Rx Instructions .Route Qty: 1 0RF Rx Instructions: As directed (DME) lancets [OneTouch UltraSoft Lancets] Misc See Rx Instructions .Route Qty: 100 3RF Rx Instructions: As directed test blood glucose daily (DME) blood-glucose meter [OneTouch UltraMini] Kit See Rx Instructions .Route Qty: 1 0RF Rx Instructions: As directed (DME) Wheelchair Ramp See Rx Instructions .Route .MEDSUPPLY Qty: 1 0RF Rx Instructions: As directed (DME) Transfer Bench Misc See Rx Instructions .Route Qty: 1 0RF Rx Instructions: As directed for bath tub (DME) blood pressure monitor [Blood Pressure Kit] Kit See Rx Instructions .Route Qty: 1 0RF Rx Instructions: As directed cyanocobalamin (vitamin B-12) 1,000 mcg/mL solution 1,000 mcg IM Q4W 90 Days Qty: 4 5RF potassium chloride 10 mEq tablet extended release 10 meq PO BID Qty: 180 3RF Hold Instructions: hold since lasix on hold. rec to repeat labs early next week and resume as needed nitroglycerin 0.4 mg tablet, sublingual 0.4 mg sublingual Q5M PRN (Reason: for angina) 90 Days Qty: 25 0RF docusate sodium 100 mg capsule 100 mg PO BID PRN (Reason: consti) Qty: 60 11RF guaifenesin [Mucinex] 600 mg tablet extended release 12hr 600 mg PO Q12H PRN (Reason: congestion) Qty: 20 0RF furosemide 40 mg tablet 40 mg PO BID Qty: 180 3RF Hold Instructions: Can resume for leg edema or as blood pressure allows levothyroxine 100 mcg tablet 100 mcg PO QAM Qty: 90 3RF atorvastatin 40 mg tablet 40 mg PO DAILY Qty: 90 3RF ezetimibe 10 mg tablet 10 mg PO DAILY Qty: 90 3RF Dexilant 30 mg capsule,biphase delayed releas 30 mg PO DAILY Qty: 90 3RF ascorbic acid (vitamin C) 500 mg tablet 500 mg PO BID Qty: 180 3RF (DME) [facility] Hospital Bed diagnosis I50.32 See Rx Instructions .Route .MEDSUPPLY Qty: 1 0RF Rx Instructions: As directed, GERMAN 99 (DME) Nebulizer supplies See Rx Instructions .Route .MEDSUPPLY Qty: 3 3RF Rx Instructions: As directed albuterol sulfate 2.5 mg /3 mL (0.083 %) solution for nebulization 2.5 mg inhalation Q6H PRN (Reason: for wheezing) Qty: 450 1RF Eliquis 5 mg tablet 5 mg PO BID 90 Days Qty: 180 3RF (DME) OneTouch Ultra Test Strip See Rx Instructions .ROUTE .COMPLEX Qty: 100 3RF Dose Instruction: DIRECTED TEST BLOOD GLUCOSE DAILY Rx Instructions: DIRECTED TEST BLOOD GLUCOSE DAILY losartan 50 mg tablet 50 mg PO DAILY 90 Days Qty: 90 1RF Hold Instructions: Can resume if blood pressure allows ipratropium-albuterol 0.5 mg-3 mg(2.5 mg base)/3 mL solution for nebulization 3 ml inhalation Q4-6H PRN (Reason: for wheezing) Qty: 180 3RF carvedilol 25 mg tablet 25 mg PO BID 90 Days Qty: 180 2RF fluticasone propion-salmeterol 500-50 mcg/dose blister with device 1 inh inhalation BID Qty: 60 11RF clotrimazole 1 % cream See Rx Instructions topical BID Qty: 45 11RF Rx Instructions: apply to affected area topical 2 times a day; nitrofurantoin macrocrystal [Macrodantin] 100 mg capsule 100 mg PO BID Qty: 14 0RF Rx Instructions: must administer with a meal/food duloxetine 30 mg capsule,delayed release(DR/EC) 30 mg PO DAILY Qty: 90 3RF meloxicam 7.5 mg tablet 7.5 mg PO DAILY Qty: 20 5RF meclizine 12.5 mg tablet 12.5 mg PO BID PRN (Reason: for motion sickness) Qty: 30 5RF albuterol sulfate 90 mcg/actuation HFA aerosol inhaler 2 puff PO Q4H PRN (Reason: for respiratory distress) Qty: 8.5 0RF (DME) air mattress See Rx Instructions .Route .MEDSUPPLY Qty: 1 0RF Rx Instructions: As directed Spiriva with HandiHaler 18 mcg capsule, w/inhalation device 1 cap inhalation DAILY Qty: 90 3RF cholestyramine-aspartame [Prevalite] 4 gram powder in packet 4 g PO QIDACHS Qty: 120 1RF Rx Instructions: no meds 1 hr before/4-6 hr after dose ferrous sulfate 325 mg (65 mg iron) Tablet 325 mg PO DAILY aspirin 81 mg Tablet 81 mg PO DAILY cholecalciferol (vitamin D3) [Vitamin D3] 25 mcg (1,000 unit) Capsule 25 mcg PO DAILY dicyclomine 10 mg Capsule 10 - 20 mg PO QID PRN (Reason: Abdominal Pain) diltiazem HCl [DILT-XR] 120 mg capsule,ext.rel 24h degradable 1 cap PO DAILY (DME) hospital bed See Rx Instructions .Route .MEDSUPPLY Qty: 1 0RF Rx Instructions: As directed semaglutide 1 mg/dose (4 mg/3 mL) pen injector 1.5 mg subcut QWEEK 30 Days Qty: 5.625 11RF Rx Instructions: for 4 doses sucralfate 100 mg/mL suspension 1 g PO BEDTIME <VENECIA Ramsey - Last Filed: 11/01/21 18:35> Referrals: Froilan Negron [Physician] - 1 week Po,Chantal Albrecht MD [Primary Care Provider] - 2 days <VENECIA Ramsey - Last Filed: 11/01/21 18:35>
--- NOTE | 2021-11-01 13:52 | ECG_ITS ---
Test Reason : EPIGASTRIC PAIN Blood Pressure : / mmHG Vent. Rate : 100 BPM Atrial Rate : 100 BPM P-R Int : 204 ms QRS Dur : 086 ms QT Int : 356 ms P-R-T Axes : 066 036 102 degrees QTc Int : 459 ms Sinus rhythm with occasional Premature ventricular complexes Septal infarct (cited on or before 26-AUG-2021) Abnormal ECG When compared with ECG of 28-AUG-2021 09:46, Premature ventricular complexes are now Present LA interval has decreased Referred By: Nathan Lepe Electronically Signed By:ELIZABETH HORTON
[2021-11-01 14:34] LABS: MANUAL DIFF FLAG NO
[2021-11-01 14:37] LABS: Basophils Percent Auto 0.5 % (0-2); Eosinophils Absolute Auto 0.3 X10*3/uL (0.0-0.4); Eosinophils Percent Auto 3.6 % (0-4); Hematocrit 38.4 % (37.0-47.0); Hemoglobin 12.2 g/dl (12.0-16.0); Imm Gran Abs Auto 0.04 X10*3/uL (0.00-0.03); Imm Gran Pct Auto 0.5 % (0.0-0.4); Lymphocytes Absolute Auto 2.1 X10*3/uL (1.2-4.9); Lymphocytes Percent Auto 25.3 % (20-40); Mean Corpuscular HGB Conc 31.8 g/dl (31.0-35.0); Mean Corpuscular Hemoglobin 27.1 pg (27.0-33.0); Mean Corpuscular Volume 85.1 fL (80.0-98.0); Mean Platelet Volume 9.4 fL (9.4-12.3); Monocytes Absolute Auto 0.8 X10*3/uL (0.1-1.2); Monocytes Percent Auto 9.9 % (2-11); Neutrophils Absolute Auto 4.9 x10*3/uL (2.0-8.3); Neutrophils Percent Auto 60.2 % (45-73); Platelet Count 298 X10*3/uL (160-400); Red Blood Count 4.51 X10*6/uL (4.20-5.50); Red Cell Distribution Width 14.5 % (11.0-16.0); White Blood Count 8.2 X10*3/uL (4.8-10.8)
[2021-11-01 14:46] LABS: INTERNATIONAL NORM RATIO 1.1 (0.9-1.1); Prothrombin Time 12.3 SEC (10.0-13.1)
[2021-11-01 14:49] LABS: Partial Thromboplastin Time 33.8 SEC (26.0-36.4)
[2021-11-01 14:58] LABS: Troponin-I High Sensitivity 16.7 ng/L (<3.5-17.0)
[2021-11-01 16:32] LABS: Alanine Aminotransferase 11 U/L (0-31); Albumin Level 3.3 g/dL (3.5-5.0); Alkaline Phosphatase 167 U/L (39-117); Anion Gap 18 (12-20); Aspartate Amino Transferase 26 U/L (5-31); Bilirubin Total 0.4 mg/dL (0.0-1.0); Blood Urea Nitrogen 12 mg/dL (9-16); Calcium 8.9 mg/dL (8.4-10.2); Carbon Dioxide 22 mmol/L (22-29); Chloride 107 mmol/L (96-108); Creatinine Clr Calc Pharmacy 51.9; Estimated Glomerular Filt Rate > 60; Glucose Random 88 mg/dL (60-115); Lipase 15 U/L (8-78); Potassium 5.5 mmol/L (3.3-5.1); Sodium 141 mmol/L (135-145); Total Protein 6.2 g/dL (6.5-8.0)
[2021-11-01] MEDS: iohexoL 350 MG/ML 100 ML INFUS..BTL IV (17:44)
--- NOTE | 2021-11-01 18:07 | PC.NURSE ---
PATIENT WAS INC OF URINE ,JEVON CARE GIVEN LINEN CHANGE .
[2021-11-01 18:22] LABS: B Type Natriuretic Peptide 187 pg/mL (<100)
[2021-11-01 20:10] LABS: COVID-19 Test Negative (Negative)
[2021-11-01] MEDS: Sodium Zirconium Cyclosilicate 10 GM POWD.PACK PO (20:18)
[2021-11-01] MEDS: Acetaminophen 325 MG TABLET 650 MG PO (20:18)
[2021-11-01 20:46] LABS: Troponin-I High Sensitivity 19.7 ng/L (<3.5-17.0)
--- NOTE | 2021-11-01 22:45 | PC.NURSE ---
PATIENT WAS INCONTINENT OF LARGE AMOUNT OF URINE ,CARE GIVEN ,BEDDING CHANGE .
[2021-11-02 01:02] VITALS: BP 154/84; PULSE 88; RESP 16; TEMP 37; O2SAT 98
[2021-11-02 01:13] LABS: Appearance Urine Clear; Color Urine Yellow; Glucose Urine UA Negative (Negative); Leukocyte Esterase Urine Moderate (2+) (Negative); Nitrite Urine Negative (Negative); Specific Gravity - Urine >= 1.030 (1.005-1.025); UMIC TRIGGER UACC YES; Urine Blood Negative (Negative); Urine Ketones Negative (Negative); Urine Protein Negative (Neg-Trace)
[2021-11-02 01:51] LABS: Bacteria Urine None Seen (None Seen); Hyaline Casts Urine 0-2 /LPF (0-2); RBC Urine 0-2 /HPF (0-2); UACC Culture Trigger YES; WBC Urine 21-50 /HPF (0-5)
--- NOTE | 2021-11-02 06:21 | PC.NURSE ---
PATIENT WAS INCONTINENT OF URINE ,ANITHA CARE GIVEN LINEN CHANGE PATIENT RESTING QUIETLY IN BED .
[2021-11-02 06:25] VITALS: BP 164/87; PULSE 90; RESP 20; TEMP 36.6; O2SAT 96
--- NOTE | 2021-11-02 07:17 | PC.NURSE ---
Pt A&Ox4, pain 2/10 to her mid back at this time. DC instructions reviewed w/pt. IV removed, set up with breakfast tray at this time. Call renteria within reach. Awaiting ambulance. Primary RN aware.
[2021-11-02 10:21] LABS: CDiff Gene PCR POSITIVE (Negative)
[2021-11-02 12:03] LABS: CDIFF Internal ctrl Dots and bkg OK (V); CDiff Toxin Negative (Negative)
[2021-11-02 14:03] LABS: Adenovirus F 40/41 Not Detected (Not Detect.); Astrovirus Not Detected (Not Detect.); Campylobacter Not Detected (Not Detect.); Cryptosporidium Not Detected (Not Detect.); Cyclospora cayetanensis Not Detected (Not Detect.); E. coli EAEC Not Detected (Not Detect.); E. coli EPEC Not Detected (Not Detect.); E. coli ETEC Not Detected (Not Detect.); E. coli STEC Not Detected (Not Detect.); Entamoeba histolytica Not Detected (Not Detect.); Giardia lamblia Not Detected (Not Detect.); Norovirus GI/GII Not Detected (Not Detect.); Plesiomonas shigelloides Not Detected (Not Detect.); Rotavirus A Not Detected (Not Detect.); Salmonella Not Detected (Not Detect.); Sapovirus Not Detected (Not Detect.); Shigella sp./EIEC Not Detected (Not Detect.); Vibrio Not Detected (Not Detect.); Vibrio Cholerae Not Detected (Not Detect.); Yersinia enterocolitica Not Detected (Not Detect.)
== END 2021-11-02 13:07 | disposition home or self-care (01) ==
PROVIDERS: Physician Assistant; Emergency Provider Emergency Medicine; PCP Internal Medicine
DX: N39.0 Urinary tract infection, site not specified (principal); R10.13 Epigastric pain; R06.02 Shortness of breath; E11.9 Type 2 diabetes mellitus without complications; R19.7 Diarrhea, unspecified; Z20.822 Contact with and (suspected) exposure to COVID-19; Z79.899 Other long term (current) drug therapy
CPT/HCPCS: 36415; 71275; 74177; 80053; 81001; 83690; 83880; 84484; 85025; 85610; 85730; 87086; 87324; 87493; 87507; 87635; 93005; 99285; Q9967

== ENCOUNTER 2021-12-07 16:45 | Outpatient (REF) | payer OTHER, SELFPAY ==
[2021-12-07 17:05] LABS: Appearance Urine Cloudy; Color Urine Yellow; Glucose Urine UA Negative (Negative); Leukocyte Esterase Urine Trace (Negative); Nitrite Urine Negative (Negative); PH 5.5 (5.0-9.0); Specific Gravity - Urine 1.025 (1.005-1.025); UMIC TRIGGER UACC YES; Urine Blood Negative (Negative); Urine Ketones Negative (Negative); Urine Protein Trace mg/dL (Neg-Trace)
[2021-12-07 17:34] LABS: Bacteria Urine 4+ (None Seen); Calcium Oxalate Crystals Urine Present; Hyaline Casts Urine 0-2 /LPF (0-2); RBC Urine 0-2 /HPF (0-2); WBC Urine 0-5 /HPF (0-5)
[2021-12-08 02:34] LABS: CDiff Gene PCR NEGATIVE (Negative)
== END 2021-12-07 16:46 | disposition home or self-care (01) ==
LOC: HO.LNP 16:45
PROVIDERS: Visit Provider Internal Medicine
DX: A04.72 Enterocolitis due to Clostridium difficile, not specified as recurrent (principal)
CPT/HCPCS: 81001; 81003; 87493

== ENCOUNTER → 2021-12-13 10:15 | Outpatient (BNVA) | payer OTHER, SELFPAY | PROVIDERS: PCP Internal Medicine; Visit Provider Internal Medicine | DX: J44.9 Chronic obstructive pulmonary disease, unspecified (principal); G47.33 Obstructive sleep apnea (adult) (pediatric); J96.90 Respiratory failure, unspecified, unspecified whether with hypoxia or hypercapnia; J98.4 Other disorders of lung; E66.9 Obesity, unspecified; J96.91 Respiratory failure, unspecified with hypoxia; J96.92 Respiratory failure, unspecified with hypercapnia; R91.1 Solitary pulmonary nodule; Z99.81 Dependence on supplemental oxygen | CPT/HCPCS: 99212 ==

== ENCOUNTER 2022-02-16 17:23 | Outpatient (REF) | payer OTHER, SELFPAY ==
[2022-02-16 17:45] LABS: Appearance Urine Cloudy; Color Urine Yellow; Glucose Urine UA Negative (Negative); Leukocyte Esterase Urine Negative (Negative); Nitrite Urine Negative (Negative); PH 5.5 (5.0-9.0); UMIC TRIGGER UACC YES; Urine Blood Negative (Negative); Urine Ketones Negative (Negative); Urine Protein 30 (1+) mg/dL (Neg-Trace)
[2022-02-16 17:57] LABS: Bacteria Urine None Seen (None Seen); Calcium Oxalate Crystals Urine Present; RBC Urine 0-2 /HPF (0-2); WBC Urine 0-5 /HPF (0-5)
== END 2022-02-16 17:24 | disposition home or self-care (01) ==
LOC: HO.LNP 17:23
PROVIDERS: Visit Provider Internal Medicine
DX: N39.0 Urinary tract infection, site not specified (principal)
CPT/HCPCS: 81001

== ENCOUNTER 2022-03-01 08:29 | Outpatient (REF) | payer OTHER, SELFPAY ==
--- NOTE | ~2022-03-01 | CT_ITS ---
EXAMINATION CT CHEST WITHOUT CONTRAST - HIGH RESOLUTION CLINICAL INFORMATION: Abnormal findings of lung diallo. COMPARISON: None. TECHNIQUE: Axial 5 mm thin and reformatted 5 mm thin sagittal and coronal images of chest were obtained. In addition high-resolution axial 1.5 minutes thin images of the chest at intervals were obtained as well. DLP 217. This CT examination was performed using dose optimization technique as appropriate, variously including the following: Automated exposure control Adjustment of MA and/or KV according to patient size(this includes techniques or standardized protocols for targeted exams where dose is matched to indication/reason for exam; extremities or head. Use of iterative reconstruction techniques. FINDINGS: CHEST: Lungs: There is mild centrilobular emphysema without acute pneumonic process. Minimal subpleural atelectatic changes are seen in the left upper lobe. There are several poorly nodules visualized: A 2 mm nodule right upper lobe axial image 74/6, a 2 nodule left upper lobe laterally image 78/6, a subpleural 3 mm nodule right lower lobe axial image 87/6, a 4 mm and 5 mm ground-glass nodules right lower lobe axial image 99/6. The tree-in-bud appearance right upper lobe has resolved. 2 mm nodule right middle lobe laterally axial image 136/6. No additional nodules seen. There is plate-like atelectasis left lower lobe. Mediastinum: The heart size and the great vessels are normal caliber. There are small shotty mediastinal lymph nodes. The largest precarinal lymph node measures 1.4 cm. Central trachea and the bronchi are widely patent. There is atherosclerotic calcification of abdominal aorta without aneurysmal dilatation. Thyroid lobes are symmetrical and normal. There is moderate coronary artery calcifications present. No pericardial fluid collection. Pleura: There is no pleural thickening, calcification or effusion. Axilla: No abnormal size lymph nodes seen. The chest wall is unremarkable. Osseous Structures: There is no aggressive lytic or sclerotic process seen. ABDOMEN AND PELVIS: Visualized liver and spleen is unremarkable. There is a hypodense cyst upper pole right kidney. There is a small hiatal hernia. Surgical anisa are seen in the epigastric region from previous intervention. CT/CT chest wo con - High Res IMPRESSION: 1. Centrilobular emphysema without acute pneumonic process. 2. There are several small pulmonary nodules. The tree-in-bud appearance in the right upper lobe has resolved. 3. No abnormal mediastinal or axillary lymphadenopathy seen. 4. Moderate coronary artery calcifications. 5. Moderate atherosclerotic calcification of the abdominal aorta without aneurysmal dilatation.
== END 2022-03-01 08:30 | disposition home or self-care (01) ==
LOC: HO.CT 08:29
PROVIDERS: Visit Provider Internal Medicine
DX: R91.8 Other nonspecific abnormal finding of lung field (principal); J44.9 Chronic obstructive pulmonary disease, unspecified
CPT/HCPCS: 71250

== ENCOUNTER → 2022-03-19 10:24 | Outpatient (BNVA) | payer OTHER, SELFPAY | PROVIDERS: PCP Internal Medicine; Visit Provider Internal Medicine | DX: J44.9 Chronic obstructive pulmonary disease, unspecified (principal); J98.4 Other disorders of lung; J96.91 Respiratory failure, unspecified with hypoxia; J96.92 Respiratory failure, unspecified with hypercapnia; R91.1 Solitary pulmonary nodule; E66.9 Obesity, unspecified; Z68.35 Body mass index [BMI] 35.0-35.9, adult; G47.33 Obstructive sleep apnea (adult) (pediatric) | CPT/HCPCS: 99212 ==

== ENCOUNTER → 2022-03-21 10:10 | Outpatient (REF) | payer OTHER, SELFPAY ==
--- NOTE | 2022-03-21 10:12 | CA_ITS ---
Transthoracic Echocardiogram Patient (Last, First, Middle): Carly Unger L Gender: Female Date of : 1940 Age: 81 Procedure Date: 03/21/2022 Procedure Type: Transthoracic Echocardiogram Location: OP Height: 154.94 cm Weight: 84.37 kg BSA: 1.83 m2 Heart Rate: bpm BP: 130 / 60 mmHg Gear Hobber: TO Referring MD: Clarke Rudolph MD [employer] Machine: Mehran Covarrubias MD Symptoms: I25.10 - Atherosclerotic heart disease of [place] coronary... Study Quality: Technically Difficult/unable to tolerate ECG Rhythm: Sinus Conclusions: - 1. Technically limited study as patient could not tolerate the entire procedure 2. LV systolic function appears mildly depressed with mild LVH with impaired relaxation filling pattern 3. Limited cardiac valvular Dopplers 4. Small pericardial effusion, more prominent newer the left ventricle Findings Left Ventricle Normal left ventricular cavity size. There is mildly increased left ventricular wall thickness. The left ventricular systolic function is mildly decreased. The visually estimated ejection fraction is between 40-45%. Regional wall motion abnormalities can not be excluded due to suboptimal endocardial definition. Spectral Doppler is indicative of an impaired relaxation filling pattern. E/E prime ratio is between 8 and 15 consistent with indeterminate filling pressures. technically limited study due to patient's inability to tolerate the entire procedure Right Ventricle Normal right ventricular cavity size. There is a pacemaker wire seen in the right ventricle. Atria The left atrium is likely dilated. Interatrial shunt cannot be excluded. The right atrium is likely dilated. A pacemaker wire is identified in the right atrium. Aortic Valve The aortic valve was not well visualized. There is mild calcification of the aortic valve. There is no aortic valve regurgitation. Mitral Valve The mitral valve was not well visualized. There is moderate mitral annular calcification. Pulmonic Valve The pulmonic valve was not well visualized. Tricuspid Valve The tricuspid valve was not well visualized. The right ventricular systolic pressure is not calculated. Great Vessels The aorta was not well visualized. The pulmonary artery was not well visualized. Venous The inferior vena cava was not well visualized. Pericardium/Pleural There is a small loculated pericardial effusion overlying the left ventricle. Prior Study Comparison Changes noted compared to prior study dated: 10/06/2019. LV systolic function appears depressed Measurements 2D Linear Measurements IVSd: 1.41 0.6-0.9/0.6-1.0 cm LVIDd: 4.43 3.9-5.3/4.2-5.9 cm LVIDd Index: 2.42 2.4-3.2/2.2-3.1 cm/m2 LVIDs: 3.40 2.0-3.6 cm LVPWd: 1.14 0.7-1.1 cm LA Diam: 3.50 2.7-3.8/3.0-4.0 cm LAIDs Index: 1.91 1.5-2.3 cm/m2 LV Mass: 263.26 67-162/88-224 g LV Mass Index: 143.86 43-95/49-115 g/m2 LVOT Diam: 2.00 3.0+(-)1.3 cm Mitral Valve MV VTI: 0.17 MV Pk Edgardo: 0.90 MV Mn Edgardo: 0.65 MV Pk Grad: 3.00 MV Mn Grad: 2.00 MV Pk E: 0.60 MV PK A: 0.73 MV Decel Time: 141.00 E/A: 0.80 E'Lateral: 4.35 E'Medial: 7.07 E/E' Med: 8.50 E/E' Lat: 13.90 PHT: 41.00 MVA PHT: 5.37 MVA Continuity: 2.19 Decel [place]: 4.29 Aortic Valve AoV Pk Edgardo: 1.51 AoV Mn Edgardo: 0.99 AoV VTI: 0.28 AoV Pk Grad: 9.00 Aov Mn Grad: 5.00 SACHI Cont.VTI: 1.34 LVOT LVOT Pk Edgardo: 0.62 LVOT Mn Edgardo: 0.40 LVOT VTI: 0.12 LVOT Pk Grad: 2.00 LVOT Mn Grad: 1.00 LVOT Diam: 2.00 LVOT Area: 3.14 Diastolic Function MV Pk E: 0.60 MV Pk A: 0.73 E/A: 0.80 E'Medial: 7.07 E/E' Med: 8.50 E' Laterial: 4.35 E/E' Lat: 13.90 Right Ventricle TAPSE (mm): 19.10 TVS' Edgardo: 10.00 Tricuspid Valve TR Pk Edgardo: 2.67 TR Pk Grad: 29.00 Great Vessels Aorta Sinus of Valsalva: 3.34 2.0-3.5 cm Ao Asc: 3.30 2.1-3.4 cm Updated in Other Vendor System with Status of Final Mehran Covarrubias MD electronically signed on 03/21/2022 2:14:40 PM with status of Final
== END ==
LOC: HO.CARD 10:10
PROVIDERS: PCP Internal Medicine; Visit Provider Internal Medicine
DX: I25.10 Atherosclerotic heart disease of native coronary artery without angina pectoris (principal); R06.02 Shortness of breath
CPT/HCPCS: 93306

== ENCOUNTER 2022-04-04 19:46 | Outpatient (REF) | payer OTHER, SELFPAY ==
[2022-04-04 20:03] LABS: Appearance Urine Clear; Color Urine Yellow; Glucose Urine UA Negative (Negative); Leukocyte Esterase Urine Trace (Negative); Nitrite Urine Negative (Negative); PH 5.5 (5.0-9.0); Specific Gravity - Urine 1.025 (1.005-1.025); UMIC TRIGGER UACC YES; Urine Blood Negative (Negative); Urine Ketones Negative (Negative); Urine Protein Trace mg/dL (Neg-Trace)
[2022-04-04 20:07] LABS: Bacteria Urine None Seen (None Seen); Hyaline Casts Urine 0-2 /LPF (0-2); RBC Urine 0-2 /HPF (0-2); Squamous Epithelial Cell Urine 0-2 /HPF (0-2); WBC Urine 0-5 /HPF (0-5)
== END 2022-04-04 19:47 | disposition home or self-care (01) ==
LOC: HO.LNP 19:46
PROVIDERS: Physician Assistant Medical; Visit Provider Internal Medicine
DX: N39.0 Urinary tract infection, site not specified (principal)
CPT/HCPCS: 81001; 81003

== ENCOUNTER 2022-04-20 16:04 | Outpatient (REF) | payer OTHER, SELFPAY ==
[2022-04-20 16:12] LABS: Appearance Urine Cloudy; Color Urine Yellow; Glucose Urine UA Negative (Negative); Leukocyte Esterase Urine Trace (Negative); Nitrite Urine Negative (Negative); UMIC TRIGGER UACC YES; Urine Blood Negative (Negative); Urine Ketones Negative (Negative); Urine Protein Negative (Neg-Trace)
[2022-04-20 16:26] LABS: Bacteria Urine None Seen (None Seen); Calcium Oxalate Crystals Urine Present; Hyaline Casts Urine 0-2 /LPF (0-2); RBC Urine 0-2 /HPF (0-2); Squamous Epithelial Cell Urine 0-2 /HPF (0-2); UACC Culture Trigger YES
== END 2022-04-20 16:05 | disposition home or self-care (01) ==
LOC: HO.LNP 16:04
PROVIDERS: Visit Provider Internal Medicine
DX: R42 Dizziness and giddiness (principal); R82.90 Unspecified abnormal findings in urine
CPT/HCPCS: 81001; 87086

== ENCOUNTER 2022-05-25 16:04 | Outpatient (REF) | payer OTHER, SELFPAY ==
[2022-05-26 18:05] LABS: CDiff Gene PCR NEGATIVE (Negative)
== END 2022-05-25 16:05 | disposition home or self-care (01) ==
LOC: HO.LNP 16:04
PROVIDERS: Visit Provider Internal Medicine
DX: A04.72 Enterocolitis due to Clostridium difficile, not specified as recurrent (principal)
CPT/HCPCS: 87493

== ENCOUNTER → 2022-07-23 10:24 | Outpatient (BNVA) | payer OTHER, SELFPAY | PROVIDERS: PCP Internal Medicine; Visit Provider Internal Medicine | DX: J44.9 Chronic obstructive pulmonary disease, unspecified (principal); J96.91 Respiratory failure, unspecified with hypoxia; J96.92 Respiratory failure, unspecified with hypercapnia; G47.33 Obstructive sleep apnea (adult) (pediatric); R91.1 Solitary pulmonary nodule | CPT/HCPCS: 99212 ==

== ENCOUNTER 2022-08-09 17:03 | Outpatient (REF) | payer OTHER, SELFPAY ==
[2022-08-09 17:40] LABS: Appearance Urine Turbid; Color Urine Yellow; Glucose Urine UA Negative (Negative); Leukocyte Esterase Urine Moderate (2+) (Negative); Nitrite Urine Positive (Negative); PH >= 9.0 (5.0-9.0); UMIC TRIGGER UACC YES; Urine Blood Negative (Negative); Urine Ketones Negative (Negative); Urine Protein 30 (1+) mg/dL (Neg-Trace)
[2022-08-09 17:58] LABS: Bacteria Urine 4+ (None Seen); Calcium Oxalate Crystals Urine Present; Hyaline Casts Urine 0-2 /LPF (0-2); UACC Culture Trigger YES; WBC Urine 0-5 /HPF (0-5)
[2022-08-09 18:37] LABS: Creatinine Urine 93.89 mg/dL
== END 2022-08-09 17:04 | disposition home or self-care (01) ==
LOC: HO.LNP 17:03
PROVIDERS: Visit Provider Internal Medicine
DX: E11.65 Type 2 diabetes mellitus with hyperglycemia (principal); E78.00 Pure hypercholesterolemia, unspecified; R42 Dizziness and giddiness; R82.90 Unspecified abnormal findings in urine
CPT/HCPCS: 81001; 87086

== ENCOUNTER 2022-08-30 12:16 | Outpatient (REF) | payer OTHER, SELFPAY ==
[2022-08-30 12:34] LABS: Appearance Urine Cloudy; Color Urine Yellow; Glucose Urine UA Negative (Negative); Leukocyte Esterase Urine Moderate (2+) (Negative); Nitrite Urine Positive (Negative); UMIC TRIGGER UA YES; Urine Blood Negative (Negative); Urine Ketones Negative (Negative); Urine Protein Trace mg/dL (Neg-Trace)
[2022-08-30 12:42] LABS: Bacteria Urine 4+ (None Seen); Calcium Oxalate Crystals Urine Present; Hyaline Casts Urine 0-2 /LPF (0-2); RBC Urine 0-2 /HPF (0-2); Squamous Epithelial Cell Urine 0-2 /HPF (0-2); WBC Urine 0-5 /HPF (0-5)
== END 2022-08-30 12:17 | disposition home or self-care (01) ==
LOC: HO.LNP 12:16
PROVIDERS: Visit Provider Internal Medicine
DX: N39.0 Urinary tract infection, site not specified (principal)
CPT/HCPCS: 81001

== ENCOUNTER 2022-09-10 10:33 | Outpatient (AMB) | payer OTHER, SELFPAY ==
[2022-09-10 10:41] VITALS: BP 136/74; PULSE 48; O2SAT 95; BMI 39.2
--- NOTE | 2022-09-10 10:41 | A.OFFPC_ITS ---
Vital Signs 09/10/22 10:41 Height 5 ft 1 in Weight 207 lb 3.752 oz BMI 39.2 BP 136/74 Blood Pressure Location Lt brachial Position Sitting Pulse 48 L Pulse Source Pulse Oximeter Pulse Oximetry (%) 95 Oxygen Delivery Method Nasal Cannula Intake Visit Reasons: DM , COPD Allergies morphine [MORPHINE] Allergy (Unknown, Verified 09/10/22 10:41) RASH pregabalin [From LYRICA] Allergy (Unknown, Verified 09/10/22 10:41) NAUSEA, felt high on drugs Medication List - Last Reconciled 09/10/22 by Chantal Lay MD Accu-Chek Ruth Plus Meter (blood-glucose meter) As directed test blood glucose daily NS Accu-Chek Ruth Plus test strp (blood sugar diagnostic) test blood glucose daily NS Accu-Chek Softclix Lancets (lancets) As directed daily NS acyclovir 5% 1 appl topical 6XD 7 days [Air mattress As directed] albuterol sulfate 90 mcg/actuation 2 puffs PO Q4H PRN albuterol sulfate 2.5 mg (3 mL) inhalation Q6H PRN apixaban (Eliquis) 5 mg PO BID 90 days ascorbic acid (vitamin C) 500 mg PO BID aspirin 81 mg PO DAILY atorvastatin 40 mg PO DAILY blood pressure monitor (Blood Pressure Kit) As directed blood sugar diagnostic (OneTouch Ultra Test strips) DIRECTED TEST BLOOD GLUCOSE DAILY blood-glucose meter (OneTouch UltraMini kit) As directed blood-glucose meter (OneTouch Ultra2 Meter kit) As directed cholecalciferol (vitamin D3) (Vitamin D3) 25 mcg PO DAILY clotrimazole 1% apply to affected area topical 2 times a day; cyanocobalamin (vitamin B-12) 1,000 mcg IM Q4W 90 days dexlansoprazole (Dexilant) 30 mg PO DAILY dicyclomine 10 - 20 mg PO QID PRN docusate sodium 100 mg PO BID PRN duloxetine 30 mg PO DAILY ezetimibe 10 mg PO DAILY ferrous sulfate 325 mg PO DAILY fluticasone propion-salmeterol 500-50 mcg/dose 1 inh inhalation BID [FOUR WHEEL SCOOTER As directed] furosemide 40 mg PO QAM [hospital bed As directed] ipratropium-albuterol 0.5 mg-3 mg(2.5 mg base)/3 mL 3 mL inhalation Q4-6H PRN lancets (OneTouch UltraSoft Lancets) As directed test blood glucose daily lancets (OneTouch Delica Lancets) test daily levothyroxine 100 mcg PO QAM loperamide 2 mg PO QID PRN meclizine 12.5 mg PO BID PRN metoprolol succinate ER 50 mg PO DAILY [Nebulizer supplies As directed] nitroglycerin 0.4 mg sublingual Q5M PRN 90 days ondansetron HCl 8 mg PO Q12H PRN pads for bedsores As directed semaglutide 3 mg (1.125 mL) subcut QWEEK 30 days [[facility] Bed diagnosis I50.32 As directed, GERMAN 99] [stair lift and ramp As directed] thiamine HCl (vitamin B1) 100 mg PO DAILY tiotropium bromide (Spiriva with HandiHaler) 1 cap inhalation DAILY tramadol 50 mg PO BEDTIME Transfer Bench As directed for bath tub [Wheelchair Ramp As directed] Tobacco use date assessed: 03/06/22 Fall risk assessment: No Falls in past year Last assessed Fall Risk: 09/10/22 Dental Screening Dental Screen Date: 09/10/22 Did you have a dental visit in the last 12 months?: No Did you have a dental problem in the last 6 months where you did not have access to dental care?: No Was dental information given to patient?: Patient has dentist HPI DM , COPD HPI Details 82-year-old female with multiple medical problems she has a controlled diabetes mellitus hypercholesterolemia hypertension coronary artery disease hypothyroidism with congestive heart failure atrial fibrillation coming in for follow-up last seen in May 2022 had some concerns about dysphagia and a barium swallow was requested. Patient is here for follow-up., Hankt complains of low back pain and noted weight gain. Concern with the patient the weight gain is there and that she has not been moving a lot. Advised the need to move given pain medication for the back meanwhile diabetes A1c has been under control concern about the impacted cerumen on the right ear wants it flushed. Patient complains of having some cognitive impairment and wants to be referred to the memory clinic. 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 Diarrhea Diverticulitis DVT (deep venous thrombosis) Fibromyalgia First degree atrioventricular block GERD (gastroesophageal reflux disease) History of spinal stenosis HTN (hypertension) Hypercholesterolemia Hypothyroid Low back pain Lower extremity weakness Nasal congestion Obesity (BMI 30-39.9) Obstructive sleep apnea Otitis externa Paroxysmal atrial fibrillation Pernicious anemia Pulmonary nodule Respiratory failure with hypoxia and hypercapnia Restrictive lung disease Spondylosis of lumbar spine Surgical History H/O angioplasty H/O cardiac catheterization History of arthroplasty of left shoulder Hx of appendectomy Hx of cholecystectomy S/P BREANN-BSO (total abdominal hysterectomy and bilateral salpingo-oophorectomy) Family History Father Hypertension CVD (cardiovascular disease) Mother Colon cancer Sister Leukemia Sister Colon cancer Son Lung cancer Colon polyps Social History Household Members: None Housing: Apartment Do you presently have visiting nurse or other home services: Yes Alcohol intake: never Patient Tobacco Use Status: Former Tobacco user Tobacco use type: Cigarette Years Smoked: stopped 2009 e-Cigarette/Vaping Use: Never Used Second Hand Smoke Exposure: No Advance Directives Date on File: 10/10/21 service: No Current occupational status: retired Current occupational exposures/hazards: No Cognitive needs: No Hearing needs: No Vision needs: Yes Questionnaire PHQ-9 Over the last 2 weeks, how often have you been bothered by any of the following problems? 1. Little interest or pleasure in doing things: not at all 2. Feeling down, depressed, or hopeless: not at all 3. Trouble falling or staying asleep, or sleeping too much: not at all 4. Feeling tired or having little energy: not at all 5. Poor appetite or overeating: not at all 6. Feeling bad about yourself - or that you are a failure or have let yourself or your family down: not at all 7. Trouble concentrating on things, such as reading the newspaper or watching television: not at all 8. Moving or speaking so slowly that other people could have noticed. Or the opposite - being so fidgety or restless that you have been moving around a lot more than usual: not at all 9. Thoughts that you would be better off or of hurting yourself in some way: not at all Total score: 0 Depression Screening Interpretation: Negative Source: Developed by Drs. Chang Perez, Allie Segovia, Emiliano Mitchell and colleagues, with an educational fernando from [employer]. Thrive Questionnaire Date Thrive assessed: 03/06/22 AUDIT C Alcohol Use Questionnaire (AUDIT-C) 1. How often do you have a drink containing alcohol?: Never 2. How many drinks containing alcohol do you have on a typical day when you are drinking?: 1 or 2 3. How often do you have six or more drinks on one occasion?: Never Total Score: 0 DONNY-7 AMB Questionnaire DONNY-7 Date DONNY - 7 assessed: 03/06/22 Source: Developed by Drs. Chang Perez, Allie Segovia, Emiliano Mitchell and colleagues, with an educational fernando from [employer]. Physical exam (Primary Care) Vital Signs: Last Vital Signs Pulse 48 L 09/10/22 10:41 BP 136/74 09/10/22 10:41 Pulse Ox 95 09/10/22 10:41 Oxygen Delivery Method Nasal Cannula 09/10/22 10:41 Care Plan Goal for BP management: cerumen impacted R ear BMI result Body Mass Index 39.2 Tobacco/Smoking Status: Tobacco use Status Tobacco use date assessed 03/06/22 09/10/22 10:43 Patient Tobacco Use Status Former Tobacco user 09/10/22 10:43 Tobacco use type Cigarette 09/10/22 10:43 e-Cigarette/Vaping Use Never Used 09/10/22 10:43 PHQ-9: PHQ-9 Score PHQ-9: Total score 0 09/10/22 11:05 Depression Screening Interpretation: Negative Thrive Assessment: Date of Thrive Assessment Date Thrive assessed 03/06/22 09/10/22 10:43 Const General: alert; No acute distress Eyes Conjunctivae: conjunctivae normal Resp Auscultation: clear to auscultation bilaterally Cardio Rate: regular rate Rhythm: regular rhythm GI Inspection: Yes normal to inspection Extrem General: Yes normal to inspection and No edema Office Procedures Cerumen Removal From which ear canal was the cerumen removed: right Removal: irrigation, otoscope w/curette and cerumen loop/spoon Notes: patient tolerated procedure well, no complications and ear canal clear [id number] Irrigation/Lavage Results AMB Hemoglobin A1c AMB Hemoglobin A1c 5.1 % Last Edit by Laurie Guerra CMA on 09/10/22 11 :05 Results Reviewed Results Reviewed: Laboratory Last Values Hgb A1c (Clinic) 5.1 % (4.0-6.0) 09/10/22 10:43 Assessment and Plan Assessment & Plan (1) Type 2 diabetes mellitus with hyperglycemia: Comment: [facility] Code(s): E11.65 - Type 2 diabetes mellitus with hyperglycemia Plan: Decrease the amount of carbohydrate intake, pasta, bread, rice and potatoes are all sugar and that is aside from all the sweet stuff, remember that fruits are good but they are Sweet also. Hemoglobin A1c goal less than 7.0 patient is under control presently on semaglutide concern with weight gain (2) Paroxysmal atrial fibrillation: Code(s): I48.0 - Paroxysmal atrial fibrillation Plan: Continue with anticoagulation (3) Congestive heart failure: Comment: systolic EF 40%, and diastolic dysfunction Code(s): I50.9 - Heart failure, unspecified Qualifiers: Heart failure type: diastolic Heart failure chronicity: chronic Qualified Code(s): I50.32 - Chronic diastolic (congestive) heart failure Plan: Continue on diuretics (4) Hypothyroid: Code(s): E03.9 - Hypothyroidism, unspecified Qualifiers: Hypothyroidism type: acquired Qualified Code(s): E03.9 - Hypothyroidism, unspecified Plan: Continue with thyroid medication (5) Obesity (BMI 30-39.9): Comment: HAS MODERATE OBESITY WITH FEATURES OF OBSTRUCTIVE SLEEP APNEA. LATELY SHE HAS LOST ABOUT 60 LB OF WEIGHT AND NOW MAINTAINING IT. Code(s): E66.9 - Obesity, unspecified Plan: Diet and exercise (6) COPD (chronic obstructive pulmonary disease): Comment: COPD IS RATHER SEVERE, BUT REMAINS STABLE EXPECTED. tx : ADVISED TO CONTINUE USING ADVAIR 500-50 1 INHALATION B.I.D.. AND DUONEB UPDRAFTS Q 6 HOURS WHILE AWAKE ( 4 TIMES A DAY ) ALSO MAY USE ALBUTEROL UPDRAFT OR ALBUTEROL HFA 2 PUFFS Q 4 HOURS P.R.N. Code(s): J44.9 - Chronic obstructive pulmonary disease, unspecified Plan: Continue with the inhalers (7) Atherosclerotic cardiovascular disease: Code(s): I25.10 - Atherosclerotic heart disease of [place] coronary artery without angina pectoris Plan: Control the cholesterol, weight, blood pressure, diabetes (8) Hypercholesterolemia: Code(s): E78.00 - Pure hypercholesterolemia, unspecified Plan: Avoid fried foods, chicken skin, eggs, butter margarine, pastries and meat. Be it pork or beef they have a lot of cholesterol LDL goal less than 70 and triglyceride of less than 150 (9) Osteopenia: Code(s): M85.80 - Other specified disorders of bone density and structure, unspecified site Plan: Bone density due October (10) Essential hypertension: Code(s): I10 - Essential (primary) hypertension Plan: Continue with blood pressure medication. Decrease salt intake and exercise patient is on diuretics, but because the blood pressure has been controlled continue to monitor (11) Impacted cerumen of right ear: Code(s): H61.21 - Impacted cerumen, right ear Plan: scoop and irrigation done TM intact (12) Cognitive changes: Code(s): R41.89 - Other symptoms and signs involving cognitive functions and awareness Orders: Orders XR DEXA axial skeleton 2 Months M81.0 - Age-related osteoporosis without current pathological fracture, M85.80 - Other specified disorders of bone density and structure, unspecified site AMB Hemoglobin A1c Today Z13.9 - Encounter for screening, unspecified Referrals Neuropsychiatry Referral R41.89 - Other symptoms and signs involving cognitive functions and awareness Medications: New tramadol 50 mg PO BEDTIME 30 tabs 0RF M51.36 - Other intervertebral disc degeneration, lumbar region Coding Level of Care Code Est Pt Level 4 (66110) Diagnoses Type 2 diabetes mellitus with hyperglycemia E11.65 Paroxysmal atrial fibrillation I48.0 Congestive heart failure I50.32 Heart failure type: diastolic Heart failure chronicity: chronic Hypothyroid E03.9 Hypothyroidism type: acquired Obesity (BMI 30-39.9) E66.9 COPD (chronic obstructive pulmonary disease) J44.9 Atherosclerotic cardiovascular disease I25.10 Hypercholesterolemia E78.00 Osteopenia M85.80 Essential hypertension I10 Impacted cerumen of right ear H61.21 Cognitive changes R41.89 CPT Codes Office Procedure - CPT: 89705-Bzo Irrigation/Lavage ([id number])
== END 2022-09-10 11:43 | disposition home or self-care (01) ==
PROVIDERS: Visit Provider Internal Medicine
DX: E11.65 Type 2 diabetes mellitus with hyperglycemia (principal); I48.0 Paroxysmal atrial fibrillation; I11.0 Hypertensive heart disease with heart failure; I50.32 Chronic diastolic (congestive) heart failure; H61.21 Impacted cerumen, right ear; E66.9 Obesity, unspecified; J44.9 Chronic obstructive pulmonary disease, unspecified; I25.10 Atherosclerotic heart disease of native coronary artery without angina pectoris; E78.00 Pure hypercholesterolemia, unspecified; M85.80 Other specified disorders of bone density and structure, unspecified site; R41.89 Other symptoms and signs involving cognitive functions and awareness
CPT/HCPCS: 69210; 83036; 99214

== ENCOUNTER 2022-09-12 19:53 | Outpatient (REF) | payer OTHER, SELFPAY ==
[2022-09-12 20:01] LABS: Appearance Urine Clear; Color Urine Yellow; Glucose Urine UA Negative (Negative); Leukocyte Esterase Urine Small (1+) (Negative); Nitrite Urine Negative (Negative); PH 5.5 (5.0-9.0); UMIC TRIGGER UA YES; Urine Blood Negative (Negative); Urine Ketones Negative (Negative); Urine Protein Negative (Neg-Trace)
[2022-09-12 20:09] LABS: Bacteria Urine None Seen (None Seen); Hyaline Casts Urine 0-2 /LPF (0-2); WBC Urine 21-50 /HPF (0-5)
[2022-09-12 20:10] LABS: Creatinine Urine 111.38 mg/dL; Microalbum/Creatinine Ratio Ur 25.1 ug/mg cr
== END 2022-09-12 19:54 | disposition home or self-care (01) ==
LOC: HO.LNP 19:53
PROVIDERS: Visit Provider Internal Medicine
DX: E11.65 Type 2 diabetes mellitus with hyperglycemia (principal); E78.00 Pure hypercholesterolemia, unspecified
CPT/HCPCS: 81001; 81003; 82043

== ENCOUNTER 2022-10-02 19:51 | Outpatient (REF) | payer OTHER, SELFPAY ==
[2022-10-02 20:15] LABS: Appearance Urine Turbid; Color Urine Yellow; Glucose Urine UA Negative (Negative); Leukocyte Esterase Urine Small (1+) (Negative); Nitrite Urine Positive (Negative); PH 7.5 (5.0-9.0); Specific Gravity - Urine 1.015 (1.005-1.025); UMIC TRIGGER UA YES; Urine Blood Negative (Negative); Urine Ketones Negative (Negative); Urine Protein Negative (Neg-Trace)
[2022-10-02 23:07] LABS: Bacteria Urine 4+ (None Seen); Hyaline Casts Urine 0-2 /LPF (0-2); RBC Urine 0-2 /HPF (0-2); Squamous Epithelial Cell Urine 0-2 /HPF (0-2); WBC Urine 0-5 /HPF (0-5)
== END 2022-10-02 19:52 | disposition home or self-care (01) ==
LOC: HO.LNP 19:51
PROVIDERS: Visit Provider Internal Medicine
DX: R30.0 Dysuria (principal)
CPT/HCPCS: 81001; 81003

== ENCOUNTER 2022-11-22 10:29 | Outpatient (AMB) | payer OTHER, SELFPAY ==
[2022-11-22 10:34] VITALS: BP 120/80; PULSE 96; O2SAT 98; BMI 39.1
--- NOTE | 2022-11-22 10:34 | MHC.OFFVIS ---
Intake Vital Signs 11/22/22 10:34 Height 5 ft 1 in Weight 207 lb BMI 39.1 BP 120/80 Blood Pressure Location Lt brachial Position Sitting Pulse 96 Pulse Source Pulse Oximeter Pulse Oximetry (%) 98 Oxygen Delivery Method Nasal Cannula Oxygen Flow Rate 2 Intake Visit Reasons: copd Intake Note: pt is here for follow and states she is wondering if anything is new for copd, she broke her acapella. Breathing is not good and states it is very hard to breath. Allergies morphine [MORPHINE] Allergy (Unknown, Verified 11/22/22 10:53) RASH pregabalin [From LYRICA] Allergy (Unknown, Verified 11/22/22 10:53) NAUSEA, felt high on drugs Medication List - Last Reconciled 11/22/22 by Tony Solomon MD acyclovir 5% 1 appl topical 6XD 7 days [Air mattress As directed] albuterol sulfate 90 mcg/actuation 2 puffs PO Q4H PRN albuterol sulfate 2.5 mg (3 mL) inhalation Q6H PRN apixaban (Eliquis) 5 mg PO BID 90 days ascorbic acid (vitamin C) 500 mg PO BID aspirin 81 mg PO DAILY atorvastatin 40 mg PO DAILY blood pressure monitor (Blood Pressure Kit) As directed blood sugar diagnostic ([employer] Ultra Test strips) DIRECTED TEST BLOOD GLUCOSE DAILY blood-glucose meter (OneTouch UltraMini kit) As directed blood-glucose meter (OneTouch Ultra2 Meter kit) As directed cholecalciferol (vitamin D3) (Vitamin D3) 25 mcg PO DAILY clotrimazole 1% apply to affected area topical 2 times a day; cyanocobalamin (vitamin B-12) 1,000 mcg IM Q4W 90 days dexlansoprazole (Dexilant) 30 mg PO DAILY dicyclomine 10 - 20 mg PO QID PRN docusate sodium 100 mg PO BID PRN duloxetine 30 mg PO DAILY ezetimibe 10 mg PO DAILY ferrous sulfate 325 mg PO DAILY fluticasone propion-salmeterol 500-50 mcg/dose 1 inh inhalation BID [FOUR WHEEL SCOOTER As directed] furosemide 40 mg PO QAM [hospital bed As directed] ipratropium-albuterol 0.5 mg-3 mg(2.5 mg base)/3 mL 3 mL inhalation Q4-6H PRN lancets (OneTouch UltraSoft Lancets) As directed test blood glucose daily lancets (OneTouch Delica Lancets) test daily levothyroxine 100 mcg PO QAM loperamide 2 mg PO QID PRN meclizine 12.5 mg PO BID PRN metoprolol succinate ER 50 mg PO DAILY [Nebulizer supplies As directed] nitroglycerin 0.4 mg sublingual Q5M PRN 90 days ondansetron HCl 8 mg PO Q12H PRN pads for bedsores As directed [pressure release mattress As directed] Saccharomyces boulardii (Florastor) 250 mg PO DAILY semaglutide 2 mg (0.75 mL) subcut QWEEK 30 days [[facility] Bed diagnosis I50.32 As directed, GERMAN 99] [stair lift and ramp As directed] thiamine HCl (vitamin B1) 100 mg PO DAILY tiotropium bromide (Spiriva with HandiHaler) 1 cap inhalation DAILY tramadol 50 mg PO BEDTIME Transfer Bench As directed for bath tub [Wheelchair Ramp As directed] white petrolatum 61% ([place] Moisture Barrier Cr) 1 appl topically To gluteal area TID PRN; 90 days zinc oxide-white petrolatum 10-78 % ([place] Moist Barrier-Zinc) 1 appl topical TID Do you need a note to return to daycare/school/sports/work: No HPI copd HPI Details Carly 82 years old female with advanced chronic obstructive pulmonary disease, chronic hypoxemic respiratory failure, and associated multiple comorbidities, Is non ambulatory, comes in the wheelchair, brought in by her SALES PROGRAM COORDINATOR. She is on oxygen 2 L/minute continuously. She has had no recent respiratory infection. Complains of shortness of breath on minimal effort and also frequent cough, with inability to bring up the mucus. She say is when she was using the vibrating Valve ( Acapella ) she was able to bring up phlegm more easily. She has had no recent respiratory infection. 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 Low back pain Respiratory failure with hypoxia and hypercapnia Lower extremity weakness Nasal congestion Otitis externa Coronary artery disease Restrictive lung disease Diarrhea History of spinal stenosis Fibromyalgia Obesity (BMI 30-39.9) Carpal tunnel syndrome Abdominal aortic aneurysm Hypothyroid Obstructive sleep apnea Congestive heart failure Pernicious anemia Paroxysmal atrial fibrillation COPD (chronic obstructive pulmonary disease) DVT (deep venous thrombosis) Diverticulitis GERD (gastroesophageal reflux disease) HTN (hypertension) Clostridium difficile colitis CAD (coronary artery disease) Hypercholesterolemia Surgical History S/P BREANN-BSO (total abdominal hysterectomy and bilateral salpingo-oophorectomy) History of arthroplasty of left shoulder Hx of cholecystectomy H/O angioplasty Hx of appendectomy H/O cardiac catheterization Family History Father Hypertension CVD (cardiovascular disease) Mother Colon cancer Sister Leukemia Sister Colon cancer Son Lung cancer Colon polyps Social History Household Members: None Housing: Apartment Do you presently have visiting nurse or other home services: Yes Alcohol intake: never Patient Tobacco Use Status: Former Tobacco user Tobacco use type: Cigarette Years Smoked: stopped 2009 e-Cigarette/Vaping Use: Never Used Second Hand Smoke Exposure: No Advance Directives Date on File: 10/10/21 service: No Current occupational status: retired Current occupational exposures/hazards: No Cognitive needs: No Hearing needs: No Vision needs: Yes Review of Systems Const All systems reviewed & are unremarkable except as noted in HPI and below Eyes Reports no additional complaints ENT Reports no additional complaints Card Denies chest pain, Denies irregular heart rhythm and Reports leg edema (MILD TOWARD THE EVENINGS) Resp Reports as per HPI GI Reports heartburn (CONTROLLED WITH MED) Reports no additional complaints Musc Reports abnormal gait (PATIENT HAS MARKEDLY IMPAIRED LOCOMOTION ), Reports back pain and Reports arthralgias Skin/Breast Reports system reviewed and no additional complaints, except as documented Neuro Reports abnormal gait (PATIENT HAS MARKEDLY IMPAIRED LOCOMOTION ) Psych Reports no additional complaints Physical Exam Vital Signs: Last Vital Signs Pulse 96 11/22/22 10:34 BP 120/80 11/22/22 10:34 Pulse Ox 98 11/22/22 10:34 Oxygen Delivery Method Nasal Cannula 11/22/22 10:34 Oxygen Flow Rate 2 10/05/23 10:34 BMI result Body Mass Index 39.1 Const Other: Patient in wheelchair, comfortable General: comfortable, no acute distress, alert and awake Orientation/consciousness: patient oriented x3 HEENT Head: Yes normal to inspection General nose exam: No nasal polyps present, No nasal discharge present and Other nasal findings present (Small amount of postnasal discharge, white mucus is noted) Face and sinus: Yes sinuses nontender Mouth: oropharynx normal Throat: Yes posterior oropharynx normal Eyes General: appearance normal, both eyes and all related structures Neck Neck: Yes normal visual inspection, Yes no lymphadenopathy, Yes trachea midline and Yes no JVD Thyroid: Thyroid normal Chest Chest palpation & inspection: normal inspection of the chest, normal palpation of entire chest wall and no tenderness Resp Other: Percussion note resonant, breath sounds are distant, especially decreased over the basilar areas. But no wheezes, rhonchi or crepitations are heard . Cardio Palpation: normal PMI Rate: regular rate Rhythm: regular rhythm Heart sounds: no gallops and no murmurs GI Palpation (GI): Soft to palpation, nontender, No hepatosplenomegaly present and no masses Auscultation: normal bowel sounds Back/Spine/Pelvis Thoracic/Lumbar Spine: thoracic and lumbar spine normal to inspection and thoraco-lumbar ROM limited Skin General skin exam: no rashes or lesions noted Neuro General: patient oriented x3, No gait normal (Non ambulatory ,patient in wheelchair) and no focal motor deficits Cranial nerves: Yes CN's II-XII intact bilaterally Extrem General: Yes normal to inspection, Yes no clubbing, cyanosis or edema and Yes no calf tenderness Psych Appearance: grossly normal and well kempt Speech and movement: Normal speech and movement present Assessment & Plan Assessment & Plan (1) COPD (chronic obstructive pulmonary disease): Comment: COPD IS RATHER SEVERE, BUT REMAINS STABLE EXPECTED. tx : ADVISED TO CONTINUE USING ADVAIR 500-50 1 INHALATION B.I.D.. AND DUONEB UPDRAFTS Q 6 HOURS WHILE AWAKE ( 4 TIMES A DAY ) ALSO MAY USE ALBUTEROL UPDRAFT OR ALBUTEROL HFA 2 PUFFS Q 4 HOURS P.R.N. I explained to her that the above combination is, maximum treatment for her. But she does need to use the DuoNeb updraft 3 to 4 times a day. ACAPELLA VALVE IS ORDERED FOR HER, AND SHE SHOULD USE IT EVERY FEW HOURS, Code(s): J44.9 - Chronic obstructive pulmonary disease, unspecified (2) Restrictive lung disease: Comment: Sec. to gross Obesity . Not expected to change Needs to continue doing Deep Breathing exercises tid Code(s): J98.4 - Other disorders of lung (3) Respiratory failure with hypoxia and hypercapnia: Comment: PATIENT HAS CHRONIC RESPIRATORY FAILURE SECONDARY TO ADVANCED COPD, OBESITY/HYPOVENTILATION SYNDROME. SHE HAS HYPOXEMIA WELL CHRONIC COMPENSATED HYPERCAPNIC FAILURE . UNFORTUNATELY SHE WAS NOT ABLE TO USE NONINVASIVE VENT SUPPORT(BIPAP ) WILL CONTINUE O2 2 L/MINUTE DURING THE DAY AND NIGHT. ADVISED THAT IF O2 SAT . FALLS BELOW 90 % SHE MAY INCREASE O2 FLOW TO 2.5 OR 3 L/MT . CONTNTINUE TO DO DEEP BREATHING EXERCISES AT LEAST THREE TIMES A DAY . Code(s): J96.91 - Respiratory failure, unspecified with hypoxia; J96.92 - Respiratory failure, unspecified with hypercapnia (4) Pulmonary nodule: Comment: IF YOU SMALL PULMONARY NODULES NOTED ON CT SCAN. LAST CT SCAN OF THE CHEST ON 03/01/2022, SHOWED STABLE PULMONARY NODULES ALONG WITH BRONCHIAL THICKENING. THERE WAS NO NEW CHANGE. NO NEED TO REPEAT THE CT SCAN, Code(s): R91.1 - Solitary pulmonary nodule Coding Level of Care Code Est Pt Level 4 (60910) Diagnoses Panlobular emphysema J44.9 Restrictive lung disease J98.4 Respiratory failure with hypoxia and hypercapnia J96.91; J96.92 Pulmonary nodule R91.1
== END 2022-11-22 11:10 | disposition home or self-care (01) ==
PROVIDERS: PCP Internal Medicine; Visit Provider Internal Medicine
DX: J44.9 Chronic obstructive pulmonary disease, unspecified (principal); J98.4 Other disorders of lung; J96.91 Respiratory failure, unspecified with hypoxia; J96.92 Respiratory failure, unspecified with hypercapnia; R91.1 Solitary pulmonary nodule
CPT/HCPCS: 99214

== ENCOUNTER 2022-11-22 10:29 | Outpatient (REF) | payer OTHER, SELFPAY ==
[2022-11-22 13:00] LABS: Alanine Aminotransferase 9 U/L (0-31); Albumin Level 3.7 g/dL (3.5-5.0); Alkaline Phosphatase 134 U/L (39-117); Anion Gap 18 (12-20); Aspartate Amino Transferase 15 U/L (5-31); Bilirubin Total 0.9 mg/dL (0.0-1.0); Blood Urea Nitrogen 17 mg/dL (9-16); Calcium 9.7 mg/dL (8.4-10.2); Carbon Dioxide 23 mmol/L (22-29); Chloride 106 mmol/L (96-108); Cholesterol 169 mg/dL (<200); Estimated Glomerular Filt Rate > 60; Glucose Random 98 mg/dL (60-115); HDL Cholesterol 46 mg/dL (>40); LDL Cholesterol Calculated 96 mg/dL (<100); Potassium 4.5 mmol/L (3.3-5.1); Sodium 142 mmol/L (135-145); Total Protein 6.8 g/dL (6.5-8.0); Triglycerides 139 mg/dL (<150)
[2022-11-22 13:14] LABS: Free T4 (Free Thyroxine) 0.96 ng/dL (0.71-1.85); Thyroid Stimulating Hormone 4.82 uIU/mL (0.32-4.0); Vitamin D 25-OH Total 23.4 ng/mL (>30)
== END 2022-11-22 10:30 | disposition home or self-care (01) ==
LOC: HO.LAB 10:29
PROVIDERS: Absent Provider Internal Medicine; PCP Internal Medicine; Visit Provider Internal Medicine
DX: J44.9 Chronic obstructive pulmonary disease, unspecified (principal); J98.4 Other disorders of lung; J96.91 Respiratory failure, unspecified with hypoxia; J96.92 Respiratory failure, unspecified with hypercapnia; R91.1 Solitary pulmonary nodule; E78.00 Pure hypercholesterolemia, unspecified; Z99.81 Dependence on supplemental oxygen; Z79.899 Other long term (current) drug therapy
CPT/HCPCS: 36415; 80053; 80061; 81001; 82306; 82607; 82746; 83036; 83880; 84439; 84443; 85025; 99212

== ENCOUNTER 2022-12-06 09:55 | Outpatient (REF) | payer OTHER, SELFPAY ==
[2022-12-06 11:55] LABS: Appearance Urine Turbid; Color Urine Yellow; Glucose Urine UA Negative (Negative); Leukocyte Esterase Urine Negative (Negative); Nitrite Urine Positive (Negative); PH 8.5 (5.0-9.0); Specific Gravity - Urine 1.015 (1.005-1.025); UMIC TRIGGER UACC YES; Urine Blood Negative (Negative); Urine Ketones Negative (Negative); Urine Protein Negative (Neg-Trace)
[2022-12-06 11:57] LABS: Bacteria Urine 4+ (None Seen); Hyaline Casts Urine 0-2 /LPF (0-2); Squamous Epithelial Cell Urine 0-2 /HPF (0-2); UACC Culture Trigger YES; WBC Urine 0-5 /HPF (0-5)
== END 2022-12-06 09:56 | disposition home or self-care (01) ==
LOC: HO.LAB 09:55
PROVIDERS: PCP Internal Medicine; Visit Provider Internal Medicine
DX: E11.8 Type 2 diabetes mellitus with unspecified complications (principal); N39.0 Urinary tract infection, site not specified; N28.9 Disorder of kidney and ureter, unspecified
CPT/HCPCS: 81001; 87086

== ENCOUNTER 2022-12-20 10:16 | Outpatient (AMB) | payer OTHER, SELFPAY ==
--- NOTE | 2022-12-20 10:16 | MHC.PC.OV ---
Intake Visit Reasons: 3 month f/u/[phone] Allergies morphine [MORPHINE] Allergy (Unknown, Verified 12/20/22 10:17) RASH pregabalin [From LYRICA] Allergy (Unknown, Verified 12/20/22 10:17) NAUSEA, felt high on drugs Tobacco use date assessed: 03/06/22 Fall risk assessment: No Falls in past year Last assessed Fall Risk: 12/20/22 Dental Screening Dental Screen Date: 12/20/22 Did you have a dental visit in the last 12 months?: Yes Did you have a dental problem in the last 6 months where you did not have access to dental care?: No Was dental information given to patient?: Patient has dentist HPI 3 month f/u/[phone] HPI Details 82-year-old morbidly obese female with controlled diabetes mellitus atrial fibrillation congestive heart failure hypothyroidism COPD coronary artery disease hypercholesterolemia hypertension coming in for follow-up [facility]. Last seen in August 2022. Patient follows up with pulmonary on the inhalers and nebulizer treatments continuing on oxygen October blood work showing an elevated BNP as well as cholesterol and TSH. Patient has sob- ? cardiac, patient has a cardiology and will make a schedule. 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 Low back pain Respiratory failure with hypoxia and hypercapnia Lower extremity weakness Nasal congestion Otitis externa Coronary artery disease Restrictive lung disease Diarrhea History of spinal stenosis Fibromyalgia Obesity (BMI 30-39.9) Carpal tunnel syndrome Abdominal aortic aneurysm Hypothyroid Obstructive sleep apnea Congestive heart failure Pernicious anemia Paroxysmal atrial fibrillation COPD (chronic obstructive pulmonary disease) DVT (deep venous thrombosis) Diverticulitis GERD (gastroesophageal reflux disease) HTN (hypertension) Clostridium difficile colitis CAD (coronary artery disease) Hypercholesterolemia Surgical History S/P BREANN-BSO (total abdominal hysterectomy and bilateral salpingo-oophorectomy) History of arthroplasty of left shoulder Hx of cholecystectomy H/O angioplasty Hx of appendectomy H/O cardiac catheterization Family History Father Hypertension CVD (cardiovascular disease) Mother Colon cancer Sister Leukemia Sister Colon cancer Son Lung cancer Colon polyps Social History Household Members: None Housing: Apartment Do you presently have visiting nurse or other home services: Yes Alcohol intake: never Patient Tobacco Use Status: Former Tobacco user Tobacco use type: Cigarette Years Smoked: stopped 2009 e-Cigarette/Vaping Use: Never Used Second Hand Smoke Exposure: No Advance Directives Date on File: 10/10/21 service: No Current occupational status: retired Current occupational exposures/hazards: No Cognitive needs: No Hearing needs: No Vision needs: Yes Questionnaire PHQ-9 Over the last 2 weeks, how often have you been bothered by any of the following problems? 1. Little interest or pleasure in doing things: not at all 2. Feeling down, depressed, or hopeless: not at all 3. Trouble falling or staying asleep, or sleeping too much: not at all 4. Feeling tired or having little energy: not at all 5. Poor appetite or overeating: not at all 6. Feeling bad about yourself - or that you are a failure or have let yourself or your family down: not at all 7. Trouble concentrating on things, such as reading the newspaper or watching television: not at all 8. Moving or speaking so slowly that other people could have noticed. Or the opposite - being so fidgety or restless that you have been moving around a lot more than usual: not at all 9. Thoughts that you would be better off or of hurting yourself in some way: not at all Total score: 0 Depression Screening Interpretation: Negative Depression Screening Done: Yes Source: Developed by Drs. Chang Perez, Allie Segovia, Emiliano Mitchell and colleagues, with an educational fernando from [employer]. Thrive Questionnaire Date Thrive assessed: 03/06/22 AUDIT C Alcohol Use Questionnaire (AUDIT-C) 1. How often do you have a drink containing alcohol?: Never 2. How many drinks containing alcohol do you have on a typical day when you are drinking?: 1 or 2 3. How often do you have six or more drinks on one occasion?: Never Total Score: 0 DONNY-7 AMB Questionnaire DONNY-7 Date DONNY - 7 assessed: 03/06/22 Source: Developed by Drs. Chang Perez, Allie Segovia, Emiliano Mitchell and colleagues, with an educational fernando from [employer]. Physical exam (Primary Care) Tobacco/Smoking Status: Tobacco use Status Tobacco use date assessed 03/06/22 12/20/22 10:18 Patient Tobacco Use Status Former Tobacco user 12/20/22 10:18 Tobacco use type Cigarette 12/20/22 10:18 e-Cigarette/Vaping Use Never Used 12/20/22 10:18 PHQ-9: PHQ-9 Score PHQ-9: Total score 0 12/20/22 10:18 Depression Screening Interpretation: Negative Thrive Assessment: Date of Thrive Assessment Date Thrive assessed 03/06/22 12/20/22 10:18 Telehealth Telehealth Location of provider rendering services: practice address Location of patient: address on file Patient Identification confirmed using: Name, : Yes Telehealth method: voice only Patient verbally consented to treatment: Yes Patient verbally consented to billing insurance company: Yes Patient informed of any privacy concerns related to visit: Yes Minutes spent on Phone/Video with Pt.: 25 Assessment and Plan Assessment & Plan (1) Type 2 diabetes mellitus with hyperglycemia: Comment: [facility] Code(s): E11.65 - Type 2 diabetes mellitus with hyperglycemia Plan: Decrease the amount of carbohydrate intake, pasta, bread, rice and potatoes are all sugar and that is aside from all the sweet stuff, remember that fruits are good but they are Sweet also. Hemoglobin A1c goal of less than 7.0 patient on semaglutide under control (2) COPD (chronic obstructive pulmonary disease): Comment: COPD IS RATHER SEVERE, BUT REMAINS STABLE EXPECTED. tx : ADVISED TO CONTINUE USING ADVAIR 500-50 1 INHALATION B.I.D.. AND DUONEB UPDRAFTS Q 6 HOURS WHILE AWAKE ( 4 TIMES A DAY ) ALSO MAY USE ALBUTEROL UPDRAFT OR ALBUTEROL HFA 2 PUFFS Q 4 HOURS P.R.N. I explained to her that the above combination is, maximum treatment for her. But she does need to use the DuoNeb updraft 3 to 4 times a day. ACAPELLA VALVE IS ORDERED FOR HER, AND SHE SHOULD USE IT EVERY FEW HOURS, Code(s): J44.9 - Chronic obstructive pulmonary disease, unspecified Plan: Patient follows up with Pulmonary and continue with inhalers as well as oxygen (3) Obesity (BMI 30-39.9): Comment: HAS MODERATE OBESITY WITH FEATURES OF OBSTRUCTIVE SLEEP APNEA. LATELY SHE HAS LOST ABOUT 60 LB OF WEIGHT AND NOW MAINTAINING IT. Code(s): E66.9 - Obesity, unspecified Plan: Discussed about needing to lose the weight but the problem is limited activity (4) Hypothyroid: Code(s): E03.9 - Hypothyroidism, unspecified Qualifiers: Hypothyroidism type: acquired Qualified Code(s): E03.9 - Hypothyroidism, unspecified Plan: Continue with the thyroid medication but will need retesting (5) Paroxysmal atrial fibrillation: Code(s): I48.0 - Paroxysmal atrial fibrillation Plan: Patient is sedentary continue with anticoagulation (6) Congestive heart failure: Comment: systolic EF 40%, and diastolic dysfunction Code(s): I50.9 - Heart failure, unspecified Qualifiers: Heart failure type: diastolic Heart failure chronicity: chronic Qualified Code(s): I50.32 - Chronic diastolic (congestive) heart failure Plan: Continue with diuretic regularly (7) Atherosclerotic cardiovascular disease: Code(s): I25.10 - Atherosclerotic heart disease of [place] coronary artery without angina pectoris Plan: Control the cholesterol, weight, blood pressure, diabetes (8) Essential hypertension: Code(s): I10 - Essential (primary) hypertension Plan: Continue with blood pressure medication. Decrease salt intake and exercise patient is on metoprolol 50 mg once a (9) Hypercholesterolemia: Code(s): E78.00 - Pure hypercholesterolemia, unspecified Plan: Avoid fried foods, chicken skin, eggs, butter margarine, pastries and meat. Be it pork or beef they have a lot of cholesterol LDL goal of less than 70 on Zetia 10 mg once a day atorvastatin 40 mg once a day Orders: Orders Hemoglobin A1c 3 Months E78.00 - Pure hypercholesterolemia, unspecified Thyroid Stimulating Hormone 3 Months E78.00 - Pure hypercholesterolemia, unspecified Free T4 (Free Thyroxine) 3 Months E78.00 - Pure hypercholesterolemia, unspecified Lipid Panel 3 Months E78.00 - Pure hypercholesterolemia, unspecified Comprehensive Met. Panel 3 Months E78.00 - Pure hypercholesterolemia, unspecified Medications: Changed From atorvastatin 40 mg PO DAILY 90 tabs 3RF E78.00 - Pure hypercholesterolemia, unspecified To atorvastatin 80 mg PO DAILY 90 days 90 tabs 3RF E78.00 - Pure hypercholesterolemia, unspecified Coding Level of Care Code Tele Est Pt Level 4 (06598) Diagnoses Type 2 diabetes mellitus with hyperglycemia E11.65 Panlobular emphysema J44.9 Obesity (BMI 30-39.9) E66.9 Acquired hypothyroidism E03.9 Hypothyroidism type: acquired Paroxysmal atrial fibrillation I48.0 Chronic diastolic congestive heart failure I50.32 Heart failure type: diastolic Heart failure chronicity: chronic Atherosclerotic cardiovascular disease I25.10 Essential hypertension I10 Hypercholesterolemia E78.00
== END 2022-12-20 10:51 | disposition home or self-care (01) ==
LOC: HO.HMGH 10:16
PROVIDERS: PCP Internal Medicine; Visit Provider Internal Medicine
DX: E11.65 Type 2 diabetes mellitus with hyperglycemia (principal); I48.0 Paroxysmal atrial fibrillation; I11.0 Hypertensive heart disease with heart failure; I50.32 Chronic diastolic (congestive) heart failure; I25.10 Atherosclerotic heart disease of native coronary artery without angina pectoris; E78.00 Pure hypercholesterolemia, unspecified
CPT/HCPCS: 99443

== ENCOUNTER 2023-01-17 11:17 | Inpatient (IN) | payer OTHER, SELFPAY ==
[2023-01-17] VITALS (14 sets, daily range): BP systolic 129–149; BP diastolic 59–95; PULSE 100–125; RESP 18–29; TEMP 36–38; O2SAT 93–99; BMI 40.2
--- NOTE | ~2023-01-17 | XR_ITS ---
EXAMINATION: XR CHEST 12:01 PM CLINICAL INFORMATION: Shortness of breath COMPARISON: 08/26/2021 TECHNIQUE: 2 views of the chest were obtained. FINDINGS: The cardiac silhouette is enlarged. The lungs are grossly clear. The aorta is uncoiled and calcified. Left humeral arthroplasty is again evident. XR/XR chest 2V IMPRESSION: No significant change since 08/26/2021
--- NOTE | 2023-01-17 11:23 | ECG_ITS ---
Test Reason : WEAKNESS Blood Pressure : / mmHG Vent. Rate : 119 BPM Atrial Rate : 119 BPM P-R Int : 200 ms QRS Dur : 084 ms QT Int : 308 ms P-R-T Axes : 091 105 095 degrees QTc Int : 433 ms Suspect limb lead reversal, interpretation assumes no reversal Sinus tachycardia with occasional Premature ventricular complexes Septal infarct (cited on or before 26-AUG-2021) Lateral infarct , age undetermined Abnormal ECG When compared with ECG of 01-NOV-2021 14:15, QRS axis Shifted right Referred By: Margoth Perla Electronically Signed By:TATO PERDOMO MD
[2023-01-17 11:47] LABS: VBG HCO3 27 mmol/L (22-26); VBG pCO2 43 mmHg; VBG pH 7.41 (7.32-7.43); VBG pO2 53 mmHg
[2023-01-17 11:50] LABS: Basophils Percent Auto 0.2 % (0-2); Eosinophils Percent Auto 0.2 % (0-4); Hematocrit 40.4 % (37.0-47.0); Imm Gran Abs Auto 0.09 X10*3/uL (0.00-0.03); Imm Gran Pct Auto 0.5 % (0.0-0.4); Lymphocytes Absolute Auto 1.6 X10*3/uL (1.2-4.9); Lymphocytes Percent Auto 9.8 % (20-40); Mean Corpuscular HGB Conc 32.2 g/dl (31.0-35.0); Mean Corpuscular Hemoglobin 29.2 pg (27.0-33.0); Mean Corpuscular Volume 90.8 fL (80.0-98.0); Mean Platelet Volume 9.6 fL (9.4-12.3); Monocytes Absolute Auto 1.9 X10*3/uL (0.1-1.2); Neutrophils Percent Auto 78.1 % (45-73); Platelet Count 260 X10*3/uL (160-400); Red Blood Count 4.45 X10*6/uL (4.20-5.50); Red Cell Distribution Width 13.6 % (11.0-16.0); SCAN SMEAR FLAG 1; White Blood Count 16.7 X10*3/uL (4.8-10.8)
[2023-01-17 11:51] LABS: Venous Blood Gas Refer to POC result
[2023-01-17 11:55] LABS: INTERNATIONAL NORM RATIO 1.1 (0.9-1.1); Prothrombin Time 12.8 SEC (11.1-13.3)
[2023-01-17 11:58] LABS: MANUAL DIFF FLAG NO; Monocytes Percent Auto 11.2 % (2-11); Partial Thromboplastin Time 30.1 SEC (26.0-36.4)
[2023-01-17 12:03] LABS: Alanine Aminotransferase 24 U/L (0-31); Albumin Level 3.8 g/dL (3.5-5.0); Alkaline Phosphatase 169 U/L (39-117); Anion Gap 13 (12-20); Aspartate Amino Transferase 30 U/L (5-31); Blood Urea Nitrogen 13 mg/dL (9-16); Carbon Dioxide 25 mmol/L (22-29); Chloride 105 mmol/L (96-108); Creatinine Clr Calc Pharmacy 53.6; Estimated Glomerular Filt Rate > 60; Glucose Random 119 mg/dL (60-115); Magnesium 2.2 mg/dL (1.6-2.6); Potassium 4.3 mmol/L (3.3-5.1); Sodium 139 mmol/L (135-145); Total Protein 7.7 g/dL (6.5-8.0)
[2023-01-17 12:10] LABS: Troponin-I High Sensitivity 37.9 ng/L (<3.5-17.0)
--- NOTE | 2023-01-17 12:44 | ED.GENADULT ---
HPI - General Adult General Chief complaint: Upper Respiratory Symptoms Stated complaint: DIFF BREATHING PER EMS Time Seen by Provider: 01/17/23 12:44 Source: patient and EMS Mode of arrival: EMS Limitations: no limitations History of Present Illness HPI narrative: Patient is a 82 year old assigned female at with a history of COPD on 2 liters of chronic oxygenation, DM, and HTN presenting to the emergency department today with shortness of breath and coughing up green phlegm. Patient states that over the last 4 days she has felt progressively worse with increased shortness of breath and coughing up green phlegm. Patient denies any dizziness, lightheadedness, abdominal pain, nausea, vomiting, fever, chills, blurry vision, double vision, loss of vision, chest pain, back pain, night sweats, pain with urination, increased urinary frequency, increased urinary urgency, blood in her urine or stool, syncope or a near syncopal episode, recent trauma or falls, bowel incontinence, bladder incontinence, bowel retention, bladder retention, or any other complaints at this time. Onset (ago): day(s) (4) Severity: moderate Severity scale (1-10): 5 Relieving factors: none Exacerbating factors: none Associated symptoms: cough and shortness of breath Treatments prior to arrival: none Related Data Home Medications Medication Instructions Recorded Confirmed aspirin 81 mg tablet 81 mg PO DAILY 12/01/19 09/10/22 cholecalciferol (vitamin D3) 25 25 mcg PO DAILY 12/01/19 09/10/22 mcg (1,000 unit) capsule (Vitamin D3) dicyclomine 10 mg capsule 10 - 20 mg PO QID PRN Abdominal 12/01/19 09/10/22 Pain ferrous sulfate 325 mg (65 mg 325 mg PO DAILY 12/01/19 09/10/22 iron) tablet Previous Rx's Medication Instructions Recorded stair lift and ramp #1 ea 08/31/20 blood-glucose meter (OneTouch #1 ea 09/14/20 Ultra2 Meter kit) lancets (OneTouch UltraSoft #100 ea 09/14/20 Lancets) blood-glucose meter (OneTouch #1 ea 09/16/20 UltraMini kit) Wheelchair Ramp #1 ea 10/06/20 Transfer Bench #1 ea 11/01/20 blood pressure monitor (Blood #1 ea 11/03/20 Pressure Kit) hospital bed #1 ea 01/23/21 Nebulizer supplies #3 ea 03/22/21 Semi Electric Hospital Bed #1 ea 03/22/21 diagnosis I50.32 loperamide 2 mg capsule 2 mg PO QID PRN loose stool #14 11/01/21 caps Air mattress #1 ea 11/27/21 cyanocobalamin (vitamin B-12) 1,000 mcg IM Q4W 90 days #4 mL 02/21/22 1,000 mcg/mL injection solution nitroglycerin 0.4 mg sublingual 0.4 mg sublingual Q5M PRN for 02/22/22 tablet angina 90 days #25 tabs docusate sodium 100 mg capsule 100 mg PO BID PRN consti #60 caps 03/20/22 ascorbic acid (vitamin C) 500 mg 500 mg PO BID #180 tabs 03/22/22 tablet apixaban 5 mg tablet (Eliquis) 5 mg PO BID 90 days #180 tabs 05/18/22 lancets 33 gauge (OneTouch Delica #100 ea 05/29/22 Lancets) blood sugar diagnostic (Decibel Music SystemsTouch #100 strips 05/30/22 Ultra Test strips) FOUR WHEEL SCOOTER #1 ea 06/08/22 clotrimazole 1 % topical cream See Rx Instructions topical BID 06/08/22 #45 grams ondansetron HCl 8 mg tablet 8 mg PO Q12H PRN nausea and 06/22/22 vomiting #30 tabs furosemide 40 mg tablet 40 mg PO QAM #90 tabs 07/02/22 pads for bedsores 7 7/8 X 11 3/4 #50 ea 07/10/22 tiotropium bromide 18 mcg capsule 1 cap inhalation DAILY #30 08/11/22 with inhalation device (Spiriva inhalations with HandiHaler) albuterol sulfate 90 mcg/actuation 2 puff PO Q4H PRN for respiratory 08/22/22 aerosol inhaler distress #8.5 ea albuterol sulfate 2.5 mg/3 mL 2.5 mg (3 mL) inhalation Q6H PRN 09/10/22 (0.083 %) solution for nebulization for wheezing #450 mL tramadol 50 mg tablet 50 mg PO BEDTIME #30 tabs 09/10/22 duloxetine 30 mg capsule,delayed 30 mg PO DAILY #90 caps 09/17/22 release thiamine HCl (vitamin B1) 100 mg 100 mg PO DAILY #90 tabs 09/17/22 tablet ipratropium 0.5 mg-albuterol 3 mg 3 ml inhalation Q4-6H PRN for 09/21/22 (2.5 mg base)/3 mL nebulization wheezing #180 mL soln fluticasone 500 mcg-salmeterol 50 1 inh inhalation BID #60 ea 10/11/22 mcg/dose blistr powdr for inhalation metoprolol succinate 50 mg 50 mg PO DAILY #30 tabs 10/18/22 tablet,extended release 24 hr pressure release mattress #1 ea 11/13/22 white petrolatum 61 % topical 1 appl topical .COMPLEX PRN 11/13/22 cream ([place] Moisture Barrier pressure areas 90 days #99 grams Cr) zinc oxide 10 %-white petrolatum 1 appl topical TID #99 grams 11/14/22 78 % topical cream ([place] Moist Barrier-Zinc) Saccharomyces boulardii 250 mg 250 mg PO DAILY #30 caps 11/15/22 capsule (Florastor) acyclovir 5 % topical cream 1 appl topical BID #5 grams 11/26/22 (Zovirax) dexlansoprazole 30 mg 30 mg PO DAILY #90 caps 12/19/22 capsule,biphase delayed release (Dexilant) atorvastatin 80 mg tablet 80 mg PO DAILY 90 days #90 tabs 12/20/22 meclizine 12.5 mg tablet 12.5 mg PO BID PRN for motion 12/21/22 sickness #60 tabs acyclovir 5 % topical ointment 1 appl topical 6XD 7 days #30 grams 01/15/23 ezetimibe 10 mg tablet 10 mg PO DAILY #90 tabs 01/15/23 levothyroxine 100 mcg tablet 100 mcg PO QAM #90 tabs 01/15/23 semaglutide 2 mg/dose (8 mg/3 mL) 2 mg (0.75 mL) subcut QWEEK 30 01/15/23 subcutaneous pen injector days #6 mL Allergies Allergy/AdvReac Type Severity Reaction Status Date / Time morphine [MORPHINE] Allergy Unknown RASH Verified 12/20/22 10:17 pregabalin [From LYRICA] Allergy Unknown NAUSEA, Verified 12/20/22 10:17 felt high on drugs Review of Systems Constitutional: Constitutional: Reports no additional constitutional complaints, Denies chills, Denies fever(s) and Denies night sweats Eyes: Eyes: Reports no additional eye complaints, Denies blurry vision, Denies change in vision, Denies diplopia, Denies eye discharge, Denies loss of vision and Denies eye pain ENT: Denies dizziness Cardiovascular: Cardiovascular: Reports no additional cardiovascular complaints, Denies chest pain, Denies lightheadedness, Denies Loss of Consciousness and Reports dyspnea Respiratory: Respiratory: Reports no additional respiratory complaints, Reports cough and Reports dyspnea Gastrointestinal: Gastrointestinal: Reports no additional gastrointestinal complaints, Denies abdominal pain, Denies melena, Denies hematochezia, Denies change in bowel habits and Denies change in stool character Genitourinary: Genitourinary: Denies hematuria, Denies urinary frequency, Denies dysuria, Denies urinary incontinence, Denies urinary hesitancy and Denies urinary urgency Musculoskeletal: Musculoskeletal: Reports no additional musculoskeletal complaints, Denies numbness and Denies tingling Neurologic: Denies dizziness, Denies loss of vision, Denies numbness and Denies tingling Psychiatric: Psychiatric: Reports no additional psychiatric complaints Endocrine: Endocrine: Reports no additional endocrine complaints Hematologic/Lymphatic: Hematologic/Lymphatic: Reports no additional hematologic/lymphatic complaints Allergic/Immunologic: Allergic/Immunologic: Reports no additional allergic/immunologic complaints [facility] Past Medical History Attestation statement: The following information was validated with the patient. 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 Low back pain Respiratory failure with hypoxia and hypercapnia Lower extremity weakness Nasal congestion Otitis externa Coronary artery disease Restrictive lung disease Diarrhea History of spinal stenosis Fibromyalgia Obesity (BMI 30-39.9) Carpal tunnel syndrome Abdominal aortic aneurysm Hypothyroid Obstructive sleep apnea Congestive heart failure Pernicious anemia Paroxysmal atrial fibrillation COPD (chronic obstructive pulmonary disease) DVT (deep venous thrombosis) Diverticulitis GERD (gastroesophageal reflux disease) HTN (hypertension) Clostridium difficile colitis CAD (coronary artery disease) Hypercholesterolemia Surgical History S/P BREANN-BSO (total abdominal hysterectomy and bilateral salpingo-oophorectomy) History of arthroplasty of left shoulder Hx of cholecystectomy H/O angioplasty Hx of appendectomy H/O cardiac catheterization Family History Family History Father Hypertension CVD (cardiovascular disease) Mother Colon cancer Sister Leukemia Sister Colon cancer Son Lung cancer Colon polyps Social History Social History Household Members: None Housing: Apartment Do you presently have visiting nurse or other home services: Yes Alcohol intake: never Patient Tobacco Use Status: Former Tobacco user Tobacco use type: Cigarette Years Smoked: stopped 2010 Smoked in Last 30 Days: No e-Cigarette/Vaping Use: Never Used Second Hand Smoke Exposure: No Use of substances other than those prescribed or required for medical reasons: No Advance Directives: Yes Advance Directives on File: Yes Advance Directives Date on File: 10/10/21 service: No Current occupational status: retired Current occupational exposures/hazards: No Cognitive needs: No Hearing needs: No Vision needs: Yes Physical Exam ED Vital Signs: Vital Signs - 24 hr 01/17/23 11:22 01/17/23 11:59 01/17/23 12:30 Temperature 98.4 F Pulse Rate 125 H 115 H Respiratory Rate 25 H 25 H Blood Pressure 149/77 H Pulse Oximetry 96 95 Oxygen Delivery Method Nasal Cannula Nasal Cannula Oxygen Flow Rate 01/17/23 13:00 01/17/23 14:00 01/17/23 14:34 Temperature 99.2 F Pulse Rate 114 H 113 H 116 H Respiratory Rate 25 H 21 H 24 H Blood Pressure 147/59 H Pulse Oximetry 96 95 94 Oxygen Delivery Method Nasal Cannula Nasal Cannula Nasal Cannula Oxygen Flow Rate 3 3 3 BMI result Body Mass Index 40.2 Const General: cooperative, no acute distress, alert and awake Nutritional Appearance: well nourished Orientation/consciousness: patient oriented x3 Limitations: no limitations HENMT Head: Yes normal to inspection and Yes atraumatic Ears: hearing grossly normal bilaterally and external ears normal General nose exam: Normal external nose present, no nasal discharge noted and no epistaxis Face and sinus: Yes normal facial exam, No abrasion and No laceration Mouth: Normal oral and palatal mucosa present, no drooling and no muffled voice Eyes General: appearance normal, both eyes and all related structures Periorbital: periorbital findings normal Eyelids: Yes eyelids normal Conjunctivae: conjunctivae normal Pupils: Equal, round and reactive pupils present EOM: EOMs intact bilaterally Neck Neck: Yes normal visual inspection, Yes full ROM and Yes no lymphadenopathy Chest Chest palpation & inspection: normal inspection of the chest Resp Effort & Inspection: able to speak in complete sentences and labored Auscultation: rhonchi throughout Cardio Rate: tachycardic Rhythm: regular rhythm GI Inspection: Yes normal to inspection Neuro General: patient oriented x3 and moves all extremities Cranial nerves: Yes Equal, round and reactive pupils present Cognition (Neuro): normal cognition Motor exam (neuro): 5/5 motor strength present throughout Sensory Exam: Normal double simultaneous stimulation for sensation Coordination: [id number]-so-oluc test normal Extrem General: Yes normal to inspection, Yes full ROM and Yes capillary refill normal Psych Appearance: grossly normal Mental Status: mental status grossly normal Affect: normal affect Attitude: cooperative Thought process: Normal thought process present Thought content: Normal thought content present Insight: Good insight present (Psych) Medications Administered Discontinued Medications Generic Name Dose Route Start Last Admin Trade Name Remi PRN Reason Stop Dose Admin Ceftriaxone Sodium 2 gm/ 50 mls @ 100 mls/hr 01/17/23 12:45 01/17/23 14:29 Sodium Chloride IV 01/17/23 13:14 100 mls/hr ONCE ONE Administration Methylprednisolone Sodium Succinate 60 mg 01/17/23 12:49 01/17/23 14:29 Methylprednisolone Sod Succ 125 Mg/2 Ml Vial IVPUSH 01/17/23 12:50 60 mg ONCE ONE Administration Medical Decision Making Medical Decision Making [facility] Narrative: Patient is an 82 year old assigned female at with a history of COPD on 2 liters of chronic oxygenation, DM, and HTN presenting to the emergency department today with worsening shortness of breath and feeling unwell. Patient's physical exam was as noted in the physical exam portion of this note. Patient's blood work showed an elevated WBC count of 16.7 but was otherwise unremarkable. Patient's urine is pending. Patient's EKG showed tachycardia with PVCs. Patient's chest x-ray showed no acute process. Patient's clinical presentation is most consistent with pneumonia. Patient's clinical presentation is not consistent with sepsis (@1454). I spoke with the hospitalist team who agreed to admission. Patient given IV ceftriaxone and fluids. I explained my physical exam findings as well as all test results to the patient. I answered all questions asked by the patient. Patient verbalized agreement and understanding with this treatment plan and admission. Differential Diagnosis Differential Diagnoses: The differential diagnosis associated with the presentation includes Pneumonia COPD exacerbation Cough UTI Admission/Observation Consideration of admission/observation: Escalation of care including admission/observation considered Patient admitted. Consult Healthcare Provider Management of the patient was discussed with: Hospitalist (agreed to admission) Lab Data MDM Lab Attestation statement: I reviewed the patient's lab results. My interpretation of these results are in the MDM Rationale portion of this note. 01/17/23 11:38 01/17/23 11:38 Labs: Lab Results 01/17/23 01/17/23 01/17/23 Range/Units 11:38 11:42 12:30 WBC 16.7 H (4.8-10.8) X10*3/uL RBC 4.45 (4.20-5.50) X10*6/uL Hgb 13.0 (12.0-16.0) g/dl Hct 40.4 (37.0-47.0) % MCV 90.8 (80.0-98.0) fL MCH 29.2 (27.0-33.0) pg MCHC 32.2 (31.0-35.0) g/dl RDW 13.6 (11.0-16.0) % Plt Count 260 (160-400) X10*3/uL MPV 9.6 (9.4-12.3) fL Immature Gran % (Auto) 0.5 H (0.0-0.4) % Neut % (Auto) 78.1 H (45-73) % Lymph % (Auto) 9.8 L (20-40) % Storey % (Auto) 11.2 H (2-11) % Eos % (Auto) 0.2 (0-4) % Baso % (Auto) 0.2 (0-2) % Lymph # (Auto) 1.6 (1.2-4.9) X10*3/uL [place]y # (Auto) 1.9 H (0.1-1.2) X10*3/uL Eos # (Auto) 0.0 (0.0-0.4) X10*3/uL Baso # (Auto) 0.0 (0.0-0.2) X10*3/uL Abs Immat Gran (auto) 0.09 H (0.00-0.03) X10*3/uL Absolute Neuts (auto) 13.0 H (2.0-8.3) x10*3/uL Absolute Nucleated RBC 0.000 (0.0-0.012) X10*3/uL Nucleated RBC % (auto) 0.0 (0.0-0.2) /100WBC Hold Purple Top SEE NOTE PT 12.8 (11.1-13.3) SEC INR 1.1 (0.9-1.1) APTT 30.1 (26.0-36.4) SEC VBG pH 7.41 (7.32-7.43) VBG pCO2 43 mmHg VBG pO2 53 mmHg VBG HCO3 27 H (22-26) mmol/L VBG O2 Saturation 83.0 % VBG Base Excess 3.0 mmol/L Sodium 139 (135-145) mmol/L Potassium 4.3 (3.3-5.1) mmol/L Chloride 105 (96-108) mmol/L Carbon Dioxide 25 (22-29) mmol/L Anion Gap 13 (12-20) BUN 13 (9-16) mg/dL Creatinine 0.86 (0.5-1.4) mg/dL Estim Creat Clear Calc 53.6 Estimated GFR > 60 Random Glucose 119 H (60-115) mg/dL Lactic Acid (0.5-2.0) mmol/L Calcium 10.0 (8.4-10.2) mg/dL Magnesium 2.2 (1.6-2.6) mg/dL Total Bilirubin 1.0 (0.0-1.0) mg/dL AST 30 (5-31) U/L ALT 24 (0-31) U/L Alkaline Phosphatase 169 H (39-117) U/L Troponin I High Sens 37.9 H (<3.5-17.0) ng/L Total Protein 7.7 (6.5-8.0) g/dL Albumin 3.8 (3.5-5.0) g/dL Influenza Type A (PCR) NEGATIVE (Negative) Influenza Type B (PCR) NEGATIVE (Negative) RSV RNA Qual (PCR) NEGATIVE (Negative) SARS-CoV-2 RNA (RT-PCR) NEGATIVE (Negative) 01/17/23 Range/Units 14:11 WBC (4.8-10.8) X10*3/uL RBC (4.20-5.50) X10*6/uL Hgb (12.0-16.0) g/dl Hct (37.0-47.0) % MCV (80.0-98.0) fL MCH (27.0-33.0) pg MCHC (31.0-35.0) g/dl RDW (11.0-16.0) % Plt Count (160-400) X10*3/uL MPV (9.4-12.3) fL Immature Gran % (Auto) (0.0-0.4) % Neut % (Auto) (45-73) % Lymph % (Auto) (20-40) % [place]y % (Auto) (2-11) % Eos % (Auto) (0-4) % Baso % (Auto) (0-2) % Lymph # (Auto) (1.2-4.9) X10*3/uL [place] # (Auto) (0.1-1.2) X10*3/uL Eos # (Auto) (0.0-0.4) X10*3/uL Baso # (Auto) (0.0-0.2) X10*3/uL Abs Immat Gran (auto) (0.00-0.03) X10*3/uL Absolute Neuts (auto) (2.0-8.3) x10*3/uL Absolute Nucleated RBC (0.0-0.012) X10*3/uL Nucleated RBC % (auto) (0.0-0.2) /100WBC Hold Purple Top PT (11.1-13.3) SEC INR (0.9-1.1) APTT (26.0-36.4) SEC VBG pH (7.32-7.43) VBG pCO2 mmHg VBG pO2 mmHg VBG HCO3 (22-26) mmol/L VBG O2 Saturation % VBG Base Excess mmol/L Sodium (135-145) mmol/L Potassium (3.3-5.1) mmol/L Chloride (96-108) mmol/L Carbon Dioxide (22-29) mmol/L Anion Gap (12-20) BUN (9-16) mg/dL Creatinine (0.5-1.4) mg/dL Estim Creat Clear Calc Estimated GFR Random Glucose (60-115) mg/dL Lactic Acid 0.9 (0.5-2.0) mmol/L Calcium (8.4-10.2) mg/dL Magnesium (1.6-2.6) mg/dL Total Bilirubin (0.0-1.0) mg/dL AST (5-31) U/L ALT (0-31) U/L Alkaline Phosphatase (39-117) U/L Troponin I High Sens 35.1 H (<3.5-17.0) ng/L Total Protein (6.5-8.0) g/dL Albumin (3.5-5.0) g/dL Influenza Type A (PCR) (Negative) Influenza Type B (PCR) (Negative) RSV RNA Qual (PCR) (Negative) SARS-CoV-2 RNA (RT-PCR) (Negative) Independent Interpretation I performed an independent interpretation of an: EKG and Plain X-Ray Interpretation: My interpretation is in agreement with the radiologist's impression of this imaging study. EXAMINATION: XR CHEST 12:01 PM CLINICAL INFORMATION: Shortness of breath COMPARISON: 08/26/2021 TECHNIQUE: 2 views of the chest were obtained. FINDINGS: The cardiac silhouette is enlarged. The lungs are grossly clear. The aorta is uncoiled and calcified. Left humeral arthroplasty is again evident. XR/XR chest 2V IMPRESSION: No significant change since 08/26/2021 Dictated By: Jeramie Hobson MD Signed By: Electronically signed by Jeramie Hobson MD 01/17/23 1216 Vent. Rate: 119 BPM Atrial Rate: 119 BPM P-R Int: 200 ms QRS Dur: 084 ms QT Int: 308 ms P-R-T Axes: 091 105 095 degrees QTc Int: 433 ms Suspect limb lead reversal, interpretation assumes no reversal Sinus tachycardia with occasional Premature ventricular complexes Septal infarct (cited on or before 26-AUG-2021) Lateral infarct , age undetermined Abnormal ECG When compared with ECG of 01-NOV-2021 14:15, QRS axis Shifted right DD/ 1144 Radiology Impression Discussion of test interpretation with radiology: I have reviewed the radiologist's reading. Independent Historian Clinical information obtained from an independent historian. History obtained from or confirmed by: EMS (EMS provided additional history and confirmed the history provided by the patient.) Critical Care Time Critical Care Time Critical Care Time: Yes Total Critical Care Time: 55 Attestation: I spent 55 minutes of Critical Care Time with this patient. This does not include time spent on separately reported billable procedures. Discharge Plan Discharge Clinical Impression: COPD (chronic obstructive pulmonary disease) Patient Disposition: Admitted As Inpatient Prescriptions: No Action (DME) stair lift and ramp See Rx Instructions .Route .MEDSUPPLY Qty: 1 0RF Rx Instructions: As directed (DME) blood-glucose meter [OneTouch Ultra2 Meter] Kit See Rx Instructions .Route Qty: 1 0RF Rx Instructions: As directed (DME) lancets [OneTouch UltraSoft Lancets] [facility] .Route Qty: 100 3RF Rx Instructions: As directed test blood glucose daily (DME) blood-glucose meter [OneTouch UltraMini] Kit See Rx Instructions .Route Qty: 1 0RF Rx Instructions: As directed (DME) Wheelchair Ramp See Rx Instructions .Route .MEDSUPPLY Qty: 1 0RF Rx Instructions: As directed (DME) Transfer Bench Misc See Rx Instructions .Route Qty: 1 0RF Rx Instructions: As directed for bath tub (DME) blood pressure monitor [Blood Pressure Kit] Kit See Rx Instructions .Route Qty: 1 0RF Rx Instructions: As directed (DME) [facility] Bed diagnosis I50.32 See Rx Instructions .Route .MEDSUPPLY Qty: 1 0RF Rx Instructions: As directed, GERMAN 99 (DME) Nebulizer supplies See Rx Instructions .Route .MEDSUPPLY Qty: 3 3RF Rx Instructions: As directed (DME) Air mattress See Rx Instructions .Route .MEDSUPPLY Qty: 1 0RF Rx Instructions: As directed cyanocobalamin (vitamin B-12) 1,000 mcg/mL solution 1,000 mcg IM Q4W 90 Days Qty: 4 11RF nitroglycerin 0.4 mg tablet, sublingual 0.4 mg sublingual Q5M PRN (Reason: for angina) 90 Days Qty: 25 0RF docusate sodium 100 mg capsule 100 mg PO BID PRN (Reason: consti) Qty: 60 11RF ascorbic acid (vitamin C) 500 mg tablet 500 mg PO BID Qty: 180 3RF Eliquis 5 mg tablet 5 mg PO BID 90 Days Qty: 180 3RF (DME) lancets [OneTouch Delica Lancets] [facility] See Rx Instructions .Route Qty: 100 0RF Rx Instructions: test daily (DME) OneTouch Ultra Test Strip See Rx Instructions .ROUTE .COMPLEX Qty: 100 3RF Dose Instruction: DIRECTED TEST BLOOD GLUCOSE DAILY Rx Instructions: DIRECTED TEST BLOOD GLUCOSE DAILY (DME) FOUR WHEEL SCOOTER See Rx Instructions .Route .MEDSUPPLY Qty: 1 0RF Rx Instructions: As directed clotrimazole 1 % cream See Rx Instructions topical BID Qty: 45 11RF Rx Instructions: apply to affected area topical 2 times a day; ondansetron HCl 8 mg tablet 8 mg PO Q12H PRN (Reason: nausea and vomiting) Qty: 30 0RF furosemide 40 mg tablet 40 mg PO QAM Qty: 90 3RF (DME) pads for bedsores 7 7/8 X 11 3/4 pad See Rx Instructions .Route Qty: 50 11RF Rx Instructions: As directed Spiriva with HandiHaler 18 mcg capsule, w/inhalation device 1 cap inhalation DAILY Qty: 30 0RF Rx Instructions: puncture 1 cap using device; one dose = 2 inhalations albuterol sulfate 90 mcg/actuation HFA aerosol inhaler 2 puff PO Q4H PRN (Reason: for respiratory distress) Qty: 8.5 5RF albuterol sulfate 2.5 mg /3 mL (0.083 %) solution for nebulization 2.5 mg inhalation Q6H PRN (Reason: for wheezing) Qty: 450 5RF duloxetine 30 mg capsule,delayed release(DR/EC) 30 mg PO DAILY Qty: 90 3RF thiamine HCl (vitamin B1) 100 mg tablet 100 mg PO DAILY Qty: 90 2RF ipratropium-albuterol 0.5 mg-3 mg(2.5 mg base)/3 mL solution for nebulization 3 ml inhalation Q4-6H PRN (Reason: for wheezing) Qty: 180 3RF fluticasone propion-salmeterol 500-50 mcg/dose blister with device 1 inh inhalation BID Qty: 60 11RF metoprolol succinate 50 mg tablet extended release 24 hr 50 mg PO DAILY Qty: 30 2RF (DME) pressure release mattress See Rx Instructions .Route .MEDSUPPLY Qty: 1 0RF Rx Instructions: As directed [place] Moisture Barrier Cr 61 % cream 1 appl topical .COMPLEX PRN (Reason: pressure areas) 90 Days Qty: 99 3RF Rx Instructions: 1 appl topically To gluteal area TID PRN; [place] Moist Barrier-Zinc 10-78 % cream 1 appl topical TID Qty: 99 0RF Rx Instructions: pressure sores gluteal area and thigh Saccharomyces boulardii [Florastor] 250 mg capsule 250 mg PO DAILY Qty: 30 2RF acyclovir [Zovirax] 5 % cream 1 appl topical BID Qty: 5 0RF Dexilant 30 mg capsule,biphase delayed releas 30 mg PO DAILY Qty: 90 3RF meclizine 12.5 mg tablet 12.5 mg PO BID PRN (Reason: for motion sickness) Qty: 60 5RF acyclovir 5 % ointment 1 appl topical 6XD 7 Days Qty: 30 3RF Rx Instructions: apply to genital lesions 6 times a day for 7 days ezetimibe 10 mg tablet 10 mg PO DAILY Qty: 90 3RF levothyroxine 100 mcg tablet 100 mcg PO QAM Qty: 90 3RF semaglutide 2 mg/dose (8 mg/3 mL) pen injector 2 mg subcut QWEEK 30 Days Qty: 6 11RF Rx Instructions: for 4 doses ferrous sulfate 325 mg (65 mg iron) Tablet 325 mg PO DAILY aspirin 81 mg Tablet 81 mg PO DAILY cholecalciferol (vitamin D3) [Vitamin D3] 25 mcg (1,000 unit) Capsule 25 mcg PO DAILY dicyclomine 10 mg Capsule 10 - 20 mg PO QID PRN (Reason: Abdominal Pain) loperamide 2 mg capsule 2 mg PO QID PRN (Reason: loose stool) Qty: 14 0RF (DME) hospital bed See Rx Instructions .Route .MEDSUPPLY Qty: 1 0RF Rx Instructions: As directed tramadol 50 mg tablet 50 mg PO BEDTIME Qty: 30 0RF atorvastatin 80 mg tablet 80 mg PO DAILY 90 Days Qty: 90 3RF
[2023-01-17 14:27] LABS: Lactic Acid 0.9 mmol/L (0.5-2.0)
[2023-01-17] MEDS: cefTRIAXone sodium 2 GM in 0.9 % Sodium Chloride 50 ML IV (14:29)
[2023-01-17] MEDS: methylPREDNISolone Sod Succ 125 MG/2 ML VIAL 60 MG IVPUSH (14:29)
[2023-01-17 14:40] LABS: Troponin-I High Sensitivity 35.1 ng/L (<3.5-17.0)
[2023-01-17 14:47] LABS: Influenza A PCR NEGATIVE (Negative); Influenza B PCR NEGATIVE (Negative); Resp Syncy Virus RNA Qual PCR NEGATIVE (Negative); SARS COV2 PCR INHOUSE NEGATIVE (Negative)
--- NOTE | 2023-01-17 15:48 | PM.IMHP ---
History of Present Illness Date of Service: 01/17/23 Chief Complaint: SOB An 82 years old lady with PMH of CAD, COPD on 2L, CHF, Fibromyalgia, Hypothyroid, PAF among others who presents with 1 week of Dyspnea and SOB. She reports that she started having upper respiratory symptoms last week that did not resolve and only got worse during the week with increase amount of greenish phlem and dyspnea with minimal exertion. No Fever, chills, weight loss, decrease appetite, chest pain, palpitations, nausea, vomiting, diarrhea or urinary symptoms. She lives alone with Aids helping her with her daily needs. In ED found hypoxic in respiratory distress. Admitted for further treatment. Review of Systems Review of Systems: No fever, chills but reports weakness No chest pain, palpitation having shortness of breath or coughing No abdominal pain, nausea or vomiting No urinary symptoms No any rash or wounds [facility] Medical History (Updated 01/18/23 @ 15:39 by Wyatt Banegas MD) Strong odor of stools Dysuria Pulmonary nodules Diarrhea Weakness Bradycardia Ingrowing nail Impacted cerumen of right ear Urinary incontinence Impacted cerumen of right ear Pulmonary nodule Chronic anticoagulation First degree atrioventricular block Atrial fibrillation Chronic pain syndrome 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 Low back pain Respiratory failure with hypoxia and hypercapnia Lower extremity weakness Nasal congestion Otitis externa Coronary artery disease Restrictive lung disease Diarrhea History of spinal stenosis Fibromyalgia Obesity (BMI 30-39.9) Carpal tunnel syndrome Abdominal aortic aneurysm Hypothyroid Obstructive sleep apnea Congestive heart failure Pernicious anemia Paroxysmal atrial fibrillation COPD (chronic obstructive pulmonary disease) DVT (deep venous thrombosis) Diverticulitis GERD (gastroesophageal reflux disease) HTN (hypertension) Clostridium difficile colitis CAD (coronary artery disease) Hypercholesterolemia Family History Father Hypertension CVD (cardiovascular disease) Mother Colon cancer Sister Leukemia Sister Colon cancer Son Lung cancer Colon polyps Surgical History S/P BREANN-BSO (total abdominal hysterectomy and bilateral salpingo-oophorectomy) History of arthroplasty of left shoulder Hx of cholecystectomy H/O angioplasty Hx of appendectomy H/O cardiac catheterization Social History Household Members: None Housing: Apartment Do you presently have visiting nurse or other home services: Yes Alcohol intake: never Patient Tobacco Use Status: Former Tobacco user Tobacco use type: Cigarette Years Smoked: stopped 2010 Smoked in Last 30 Days: No e-Cigarette/Vaping Use: Never Used Second Hand Smoke Exposure: No Use of substances other than those prescribed or required for medical reasons: No Currently Displaying Signs/Symptoms of Drug Intoxication Withdrawal: No Have you been hit, kicked, punched, or otherwise hurt by someone within the past year? If so, by whom?: No Do you feel safe in your current relationship?: No Current Relationship Is there a partner from a previous relationship who is making you feel unsafe now?: No Are you made to feel afraid or neglected: No Confucianist Healthcare Practices: Buddhism Advance Directives: Yes Advance Directives on File: Yes Advance Directives Date on File: 10/10/21 Do you have thoughts of harming others: None Do you have a plan to hurt others: No Plan Recently lost weight without trying: No Nutrition Risks: No Nutritional Risk Patient : No : No Poor oral hygiene: No service: No Current occupational status: retired Current occupational exposures/hazards: No Cognitive needs: No Hearing needs: No Vision needs: Yes Meds Allergies Allergy/AdvReac Type Severity Reaction Status Date / Time morphine [MORPHINE] Allergy Unknown RASH Verified 12/20/22 10:17 pregabalin [From LYRICA] Allergy Unknown NAUSEA, Verified 12/20/22 10:17 felt high on drugs Active Medications: Current Medications Acetaminophen (Acetaminophen 325 Mg Tablet) 650 mg PO Q6H PRN PRN Reason: Pain, Mild (Pain Scale 1-3) Albuterol Sulfate (Albuterol Sulfate (0.083%) 2.5 Mg/3 Ml Vial.Neb) 2.5 mg INHALE Q4H PRN PRN Reason: Shortness of Breath/Wheezing Albuterol/Ipratropium (Albuterol/Iprat 2.5/0.5mg 3 Ml Ampul.Neb) 3 ml INHALE RQ4H WHILE AWAKE DANIEL Apixaban (Apixaban 5 Mg Tablet) 5 mg PO BID DANIEL Sodium Chloride (Ns) 1,000 mls @ 999 mls/hr IV .Q1H1M DANIEL Stop: 01/17/23 16:00 Insulin Human Lispro (Insulin Lispro 100 Unit/Ml 3 Ml Vial) 0 unit SUBCUT QIDACHS [facility]; Protocol Levothyroxine Sodium (Levothyroxine Sodium 100 Mcg Tablet) 100 mcg PO DAILY@0600 [facility] Methylprednisolone Sodium Succinate (Methylprednisolone Sod Succ 40 Mg/Ml Vial) 40 mg IVPUSH Q12H DANIEL Metoprolol Succinate (Metoprolol Succinate Er 50 Mg Tab.Er.24h) 50 mg PO DAILY [facility]; Protocol Ondansetron HCl (Ondansetron Hcl 4 Mg/2 Ml Vial) 4 mg IVPUSH Q8H PRN PRN Reason: Nausea and Vomiting Sodium Chloride (0.9 % Sodium Chloride Flush 3 Ml Syringe) 3 ml IVFLUSH QSHIFT [facility] Home Medications Medication Instructions Recorded Confirmed Last Taken Type aspirin 81 mg tablet 81 mg PO DAILY 12/01/19 01/17/23 Unknown History cholecalciferol (vitamin D3) 25 25 mcg PO DAILY 12/01/19 01/17/23 Unknown History mcg (1,000 unit) capsule (Vitamin D3) dicyclomine 10 mg capsule 10 - 20 mg PO QID PRN Abdominal 12/01/19 01/17/23 Unknown History Pain ferrous sulfate 325 mg (65 mg 325 mg PO DAILY 12/01/19 01/17/23 Unknown History iron) tablet metoprolol succinate 50 mg 50 mg PO DAILY 01/17/23 01/17/23 Unknown History tablet,extended release 24 hr tirzepatide 2.5 mg/0.5 mL 2.5 mg subcut QWEEK 01/17/23 01/17/23 Unknown History subcutaneous pen injector (Vitalyunjaro) Physical Exam Vital Signs and Narrative: Vital Signs: Last Vital Signs Temp 99.2 F 01/17/23 14:34 Pulse 116 H 01/17/23 14:34 Resp 24 H 01/17/23 14:34 BP 147/59 H 01/17/23 14:34 Pulse Ox 94 01/17/23 14:34 O2 Del Method Nasal Cannula 01/17/23 14:34 O2 Flow Rate 3 01/17/23 14:34 Oxygen Flow Rate 3 01/17/23 11:59 BMI result Body Mass Index 40.2 Const: Other: Constitutional : Awake, interactive, obese, in mild resp distress Neck : Normal inspection, Supple Cardiovascular : RRR, no JVP, no lower extremity edema Respiratory : good bilateral air entry, no crackles, wheezes or rhonchi, using accessory muscles, tachypneic, in resp distress Gastrointestinal: soft, lax, Normal bowel sounds, Non tender Skin : Warm, Dry Neurological : Alert & oriented x3, No focal deficit Results Labs 01/18/23 05:07 01/18/23 05:07 Labs: Laboratory Results - last 24 hr 01/17/23 01/17/23 01/17/23 11:38 11:42 12:30 MCV 90.8 MCH 29.2 MCHC 32.2 RDW 13.6 Plt Count 260 MPV 9.6 Immature Gran % (Auto) 0.5 H Neut % (Auto) 78.1 H Lymph % (Auto) 9.8 L [place] % (Auto) 11.2 H Eos % (Auto) 0.2 Baso % (Auto) 0.2 Lymph # (Auto) 1.6 [place] # (Auto) 1.9 H Eos # (Auto) 0.0 Baso # (Auto) 0.0 Abs Immat Gran (auto) 0.09 H Absolute Neuts (auto) 13.0 H Absolute Nucleated RBC 0.000 Nucleated RBC % (auto) 0.0 Hold Purple Top SEE NOTE PT 12.8 INR 1.1 APTT 30.1 VBG pH 7.41 VBG pCO2 43 VBG pO2 53 VBG HCO3 27 H VBG O2 Saturation 83.0 VBG Base Excess 3.0 Anion Gap 13 Estim Creat Clear Calc 53.6 Estimated GFR > 60 Random Glucose 119 H Lactic Acid Calcium 10.0 Magnesium 2.2 Total Bilirubin 1.0 AST 30 ALT 24 Alkaline Phosphatase 169 H Total Protein 7.7 Albumin 3.8 Influenza Type A (PCR) NEGATIVE Influenza Type B (PCR) NEGATIVE RSV RNA Qual (PCR) NEGATIVE SARS-CoV-2 RNA (RT-PCR) NEGATIVE 01/17/23 14:11 MCV MCH MCHC RDW Plt Count MPV Immature Gran % (Auto) Neut % (Auto) Lymph % (Auto) [place] % (Auto) Eos % (Auto) Baso % (Auto) Lymph # (Auto) [place] # (Auto) Eos # (Auto) Baso # (Auto) Abs Immat Gran (auto) Absolute Neuts (auto) Absolute Nucleated RBC Nucleated RBC % (auto) Hold Purple Top PT INR APTT VBG pH VBG pCO2 VBG pO2 VBG HCO3 VBG O2 Saturation VBG Base Excess Anion Gap Estim Creat Clear Calc Estimated GFR Random Glucose Lactic Acid 0.9 Calcium Magnesium Total Bilirubin AST ALT Alkaline Phosphatase Total Protein Albumin Influenza Type A (PCR) Influenza Type B (PCR) RSV RNA Qual (PCR) SARS-CoV-2 RNA (RT-PCR) Imaging Radiologist's Impressions: Impressions Chest X-Ray 01/17/23 12:05 IMPRESSION: No significant change since 08/26/2021 Assessment and Plan (1) Congestive heart failure: Qualifiers: Heart failure type: diastolic Heart failure chronicity: chronic Qualified Code(s): I50.32 - Chronic diastolic (congestive) heart failure Status: Acute (2) COPD (chronic obstructive pulmonary disease): Status: Acute (3) Acute on chronic hypoxic respiratory failure: Status: Acute Plan An 82 years old lady with PMH of CAD, COPD on 2L, CHF, Fibromyalgia, Hypothyroid, PAF among others who presents with 1 week of Dyspnea and SOB. Acute on chronic hypoxic respiratory failure 2/2 COPD exacerbation IV Steroids Azithromycin PO Nebulizers ATC and PRN Wean O2 down as tolerated resume home meds Diabetes mellitus Sliding scale History of CRISTA CPAP at night Morbid Obesity BMI 40 Discussed importance of weight management Hypothyroidism Continue levothyroxine History of paroxysmal atrial fibrillation No exacerbation Continue diltiazem and apixaban Coronary artery disease continue aspirin and statin DVT prophylaxis with Apixaban The patient will need 2 overnight hosptial stay for treatment of hypoxic failure Quality Stroke Does the patient have a stroke diagnosis?: No VTE Prior VTE?: No VTE Risk Level:: Medical - moderate - high VTE Device Contraindication: Treatment Not Indicated VTE Drug Contraindication: N/A - Med Ordered
[2023-01-17] MEDS: Albuterol/Iprat 2.5/0.5MG 3 ML AMPUL.NEB INHALE ×2 (16:10→19:53)
[2023-01-17] MEDS: 0.9 % Sodium Chloride 1,000 ML 999 ML IV (16:24)
[2023-01-17] MEDS: Azithromycin 500 MG TABLET PO (16:45)
--- NOTE | 2023-01-17 17:25 | PHA.MEDREC ---
Pharmacy Consult ? Medication Reconciliation Pharmacy has completed the medication reconciliation.
[2023-01-17 18:32] LABS: Glucose, Whole Blood 129 mg/dL (60-115)
--- NOTE | 2023-01-17 19:20 | PC.NURSE ---
patient had episode of incontinence of urine, patient washed up, new linens given. patient given dinner, no insulin coverage needed. patient resting on 3l nc.
--- NOTE | 2023-01-17 19:46 | MHC.EDTECH ---
Patient changed and repositioned
--- NOTE | 2023-01-17 19:49 | PC.NURSE ---
report given to gt DENTON. floor aide will transport
[2023-01-17 19:50] LABS: Appearance Urine Cloudy; Color Urine Yellow; Glucose Urine UA Negative (Negative); Leukocyte Esterase Urine Trace (Negative); Nitrite Urine Negative (Negative); PH 5.5 (5.0-9.0); Specific Gravity - Urine 1.015 (1.005-1.025); UMIC TRIGGER UACC YES; Urine Blood Trace (Negative); Urine Ketones 15 mg/dL (Negative); Urine Protein 100 (2+) mg/dL (Neg-Trace)
[2023-01-17 20:11] LABS: Bacteria Urine None Seen (None Seen); RBC Urine 0-2 /HPF (0-2); WBC Urine 0-5 /HPF (0-5)
[2023-01-17 20:55] LABS: Glucose, Whole Blood 283 mg/dL (60-115)
[2023-01-17] MEDS: Insulin Lispro 100 UNIT/ML 3 ML VIAL SUBCUT (21:41)
[2023-01-17] MEDS: Apixaban 5 MG TABLET PO (21:42)
[2023-01-17] MEDS: 0.9 % Sodium Chloride Flush 3 ML SYRINGE IVFLUSH (23:32)
[2023-01-18] VITALS (9 sets, daily range): BP systolic 110–142; BP diastolic 55–90; PULSE 92–112; RESP 16–20; TEMP 36–36.8; O2SAT 93–97
[2023-01-18] MEDS: Levothyroxine Sodium 100 MCG TABLET PO (04:58)
[2023-01-18] MEDS: Omeprazole 20 MG CAPSULE.DR PO (04:58)
[2023-01-18 06:01] LABS: Hematocrit 37.7 % (37.0-47.0); Hemoglobin 12.1 g/dl (12.0-16.0); Mean Corpuscular HGB Conc 32.1 g/dl (31.0-35.0); Mean Corpuscular Volume 90.4 fL (80.0-98.0); Mean Platelet Volume 10.1 fL (9.4-12.3); Platelet Count 249 X10*3/uL (160-400); Red Blood Count 4.17 X10*6/uL (4.20-5.50); Red Cell Distribution Width 13.4 % (11.0-16.0); White Blood Count 12.7 X10*3/uL (4.8-10.8)
[2023-01-18 06:45] LABS: Anion Gap 11 (12-20); Blood Urea Nitrogen 17 mg/dL (9-16); Calcium 9.7 mg/dL (8.4-10.2); Carbon Dioxide 26 mmol/L (22-29); Chloride 109 mmol/L (96-108); Creatinine Clr Calc Pharmacy 55.5; Estimated Glomerular Filt Rate > 60; Sodium 142 mmol/L (135-145)
[2023-01-18 06:46] LABS: Glucose Random 189 mg/dL (60-115)
[2023-01-18] MEDS: Albuterol/Iprat 2.5/0.5MG 3 ML AMPUL.NEB INHALE ×3 (07:35→15:08)
[2023-01-18] MEDS: Fluticasone/Vilanterol 200/25 BLST.W.DEV 1 PUFF INHALE ×2 (07:36→19:36)
[2023-01-18 08:02] LABS: Glucose, Whole Blood 155 mg/dL (60-115)
[2023-01-18] MEDS: Apixaban 5 MG TABLET PO ×2 (08:07→20:18)
[2023-01-18] MEDS: Aspirin 81 MG TAB.CHEW PO (08:07)
[2023-01-18] MEDS: Insulin Lispro 100 UNIT/ML 3 ML VIAL SUBCUT ×2 (08:07→16:35)
[2023-01-18] MEDS: 0.9 % Sodium Chloride Flush 3 ML SYRINGE IVFLUSH ×3 (08:07→20:18)
[2023-01-18] MEDS: Ferrous Sulfate 324 MG TABLET.DR PO (08:07)
[2023-01-18] MEDS: DULoxetine HCl 30 MG CAPSULE.DR PO (08:08)
[2023-01-18] MEDS: Cholecalciferol (Vitamin D3) 25 MCG TABLET PO (08:08)
[2023-01-18] MEDS: Furosemide 40 MG TABLET PO (08:08)
[2023-01-18] MEDS: Metoprolol Succinate ER 50 MG TAB.ER.24H PO (08:08)
[2023-01-18] MEDS: Ezetimibe 10 MG TABLET PO (08:08)
[2023-01-18] MEDS: Thiamine HCL 100 MG TABLET PO (08:08)
[2023-01-18] MEDS: Atorvastatin Calcium 80 MG TABLET PO (08:08)
[2023-01-18] MEDS: methylPREDNISolone Sod Succ 40 MG/ML VIAL IVPUSH ×2 (08:09→21:24)
[2023-01-18 11:31] LABS: Glucose, Whole Blood 147 mg/dL (60-115)
--- NOTE | 2023-01-18 13:19 | MHC.CM.PN ---
Addendum entered by Tatiana Fernández RN 01/18/23 14:47: PT RECOMMENDING STR. DISCUSSED WITH PATIENT WHO IS REFUSING AT THIS TIME, PREFERS TO RETURN HOME AND RESUME SERVICES. AWARE. THIS CM SPOKE WITH CONRAD, CLINICAL DIRECTOR FOR [facility], WHO CONFIRMED PATIENT IS ACTIVE AND RECEIVING SN/PT SERVICES. HOWEVER, HEAD HOUSEKEEPER SERVICES ARE NOT THROUGH THIS AGENCY. AVEANNA AND PATIENT DO NOT KNOW WHICH AGENCY. CONRAD PROVIDED PHONE NUMBER FOR PHLEBOTOMIST MEDICAL LAB ASSISTANT RATNA JULIANNA [phone]. CALLED X2, NO ANSWER, NO VOICEMAIL. DAUGHTER AND GRANDDAUGHTER WERE BOTH ALSO UNABLE TO PROVIDE NAME OF AGENCY. WILL CALL BACK IF THEY ARE ABLE TO FIND THIS INFORMATION. CM WILL CONTINUE TO FOLLOW. Original Note: IMM DELIVERED PATIENT FROM HOME ALONE, REPORTS SHE IS ACTIVE WITH [facility] FOR SN[facility]PT AND HEAD HOUSEKEEPER. UNSURE HOW MANY HOURS. RETURN REFERRAL SENT TO CONFIRM. HOME O2 VIA [facility] AMBULATES WITH WALKER, USES W/C PRN. HEAD HOUSEKEEPER'S ASSIST WITH ADL'S. PCP: DR. PURCELL HCP: REPORTS DAUGHTER ROHITH IS HCP, COPY REQUESTED DP: GOAL IS HOME RESUME SERVICES VIA BLS, MAY NEED PT EVAL ?STR. CM WILL CONTINUE TO FOLLOW.
[2023-01-18] MEDS: Azithromycin 500 MG TABLET PO (15:00)
--- NOTE | 2023-01-18 15:39 | HO.PM.IMPN ---
Subjective Subjective Date of Service: 01/18/23 Interval History: seen and evaluated feels mildly better , still on O2 supplement having cough developed diarrhea. no abd pain no fever or chills Review of Systems Review of Systems: Yes all other systems are reviewed and are negative Physical Exam Vital Signs: Vital Signs: Last Vital Signs Temp 97.4 F 01/18/23 15:33 Pulse 102 H 01/18/23 15:33 Resp 16 01/18/23 15:33 BP 136/90 H 01/18/23 15:33 Pulse Ox 93 01/18/23 15:33 O2 Del Method Nasal Cannula 01/18/23 15:33 O2 Flow Rate 2.0 01/18/23 15:33 Oxygen Flow Rate 3 01/17/23 11:59 BMI result Body Mass Index 40.2 Const: Other: Constitutional : Awake, interactive, obese, in mild resp distress Neck : Normal inspection, Supple Cardiovascular : RRR, no JVP, no lower extremity edema Respiratory : good bilateral air entry, no crackles, wheezes or rhonchi, using accessory muscles, tachypneic, in resp distress Gastrointestinal: soft, lax, Normal bowel sounds, Non tender Skin : Warm, Dry Neurological : Alert & oriented x3, No focal deficit Objective Data Active Medications Acetaminophen (Acetaminophen 325 Mg Tablet) 650 mg PO Q6H PRN PRN Reason: Pain, Mild (Pain Scale 1-3) Albuterol Sulfate (Albuterol Sulfate (0.083%) 2.5 Mg/3 Ml Vial.Neb) 2.5 mg INHALE Q4H PRN PRN Reason: Shortness of Breath/Wheezing Albuterol/Ipratropium (Albuterol/Iprat 2.5/0.5mg 3 Ml Ampul.Neb) 3 ml INHALE RQ4H WHILE AWAKE [facility] Last Admin: 01/18/23 15:08 Dose: 3 ml Documented By: MUSHTAQ Apixaban (Apixaban 5 Mg Tablet) 5 mg PO BID [facility] Last Admin: 01/18/23 08:07 Dose: 5 mg Documented By: SUZAN Aspirin (Aspirin 81 Mg Tab.Chew) 81 mg PO DAILY [facility] Last Admin: 01/18/23 08:07 Dose: 81 mg Documented By: SUZAN Atorvastatin Calcium (Atorvastatin Calcium 80 Mg Tablet) 80 mg PO DAILY [facility] Last Admin: 01/18/23 08:08 Dose: 80 mg Documented By: SUZAN Azithromycin (Azithromycin 500 Mg Tablet) 500 mg PO Q24H [facility] Last Admin: 01/18/23 15:00 Dose: 500 mg Documented By: SUZAN Clotrimazole (Clotrimazole 1 % Cream 15 Gm Tube) 1 appl TOPICAL BID [facility]; Protocol Last Admin: 01/18/23 08:08 Dose: Not Given Documented By: SUZAN Non-Admin Reason: med not avil. Duloxetine HCl (Duloxetine Hcl 30 Mg Capsule.) 30 mg PO DAILY [facility] Last Admin: 01/18/23 08:08 Dose: 30 mg Documented By: SUZAN Ezetimibe (Ezetimibe 10 Mg Tablet) 10 mg PO DAILY [facility] Last Admin: 01/18/23 08:08 Dose: 10 mg Documented By: SUZAN Ferrous Sulfate (Ferrous Sulfate 324 Mg Tablet.) 324 mg PO DAILY [facility] Last Admin: 01/18/23 08:07 Dose: 324 mg Documented By: SUZAN Fluticasone/Vilanterol (Fluticasone/Vilanterol 200/25 Blst.W.Dev) 1 puff INHALE BID [facility] Last Admin: 01/18/23 07:36 Dose: 1 puff Documented By: MUSHTAQ Furosemide (Furosemide 40 Mg Tablet) 40 mg PO DAILY [facility]; Protocol Last Admin: 01/18/23 08:08 Dose: 40 mg Documented By: SUZAN Insulin Human Lispro (Insulin Lispro 100 Unit/Ml 3 Ml Vial) 0 unit SUBCUT QIDACHS [facility]; Protocol Last Admin: 01/18/23 11:45 Dose: Not Given Documented By: SUZAN Non-Admin Reason: No Insulin Coverage Levothyroxine Sodium (Levothyroxine Sodium 100 Mcg Tablet) 100 mcg PO DAILY@0600 [facility] Last Admin: 01/18/23 04:58 Dose: 100 mcg Documented By: RACQUEL Methylprednisolone Sodium Succinate (Methylprednisolone Sod Succ 40 Mg/Ml Vial) 40 mg IVPUSH Q12H [facility] Last Admin: 01/18/23 08:09 Dose: 40 mg Documented By: SUZAN Metoprolol Succinate (Metoprolol Succinate Er 50 Mg Tab.Er.24h) 50 mg PO DAILY [facility]; Protocol Last Admin: 01/18/23 08:08 Dose: 50 mg Documented By: SUZAN Omeprazole (Omeprazole 20 Mg Capsule.Dr) 20 mg PO DAILY@0630 [facility] Last Admin: 01/18/23 04:58 Dose: 20 mg Documented By: RACQUEL Ondansetron HCl (Ondansetron Hcl 4 Mg/2 Ml Vial) 4 mg IVPUSH Q8H PRN PRN Reason: Nausea and Vomiting Sodium Chloride (0.9 % Sodium Chloride Flush 3 Ml Syringe) 3 ml IVFLUSH QSHIFT [facility] Last Admin: 01/18/23 15:00 Dose: 3 ml Documented By: SUZAN Thiamine HCl (Thiamine Hcl 100 Mg Tablet) 100 mg PO DAILY [facility] Last Admin: 01/18/23 08:08 Dose: 100 mg Documented By: SUZAN Vitamin D (Cholecalciferol (Vitamin D3) 25 Mcg Tablet) 25 mcg PO DAILY [facility] Last Admin: 01/18/23 08:08 Dose: 25 mcg Documented By: SUZAN Labs 01/18/23 05:07 01/18/23 05:07 Labs: Laboratory Results - last 24 hr 01/17/23 01/17/23 01/17/23 18:29 19:38 20:52 MCV MCH MCHC RDW Plt Count MPV Absolute Nucleated RBC Nucleated RBC % (auto) Anion Gap Estim Creat Clear Calc Estimated GFR POC Glucose 129 H 283 H Random Glucose Calcium Urine Color Yellow Urine Appearance Cloudy Urine pH 5.5 Ur Specific [place] 1.015 Urine Protein 100 (2+) H Urine Glucose (UA) Negative Urine Ketones 15 Urine Blood Trace H Urine Nitrite Negative Ur Leukocyte Esterase Trace H Urine RBC 0-2 Urine WBC 0-5 Ur Squamous Epith Cells 3-5 Urine Bacteria None Seen Hyaline Casts 3-5 01/18/23 01/18/23 01/18/23 05:07 07:51 11:26 MCV 90.4 MCH 29.0 MCHC 32.1 RDW 13.4 Plt Count 249 MPV 10.1 Absolute Nucleated RBC 0.000 Nucleated RBC % (auto) 0.0 Anion Gap 11 L Estim Creat Clear Calc 55.5 Estimated GFR > 60 POC Glucose 155 H 147 H Random Glucose 189 H Calcium 9.7 Urine Color Urine Appearance Urine pH Ur Specific [place] Urine Protein Urine Glucose (UA) Urine Ketones Urine Blood Urine Nitrite Ur Leukocyte Esterase Urine RBC Urine WBC Ur Squamous Epith Cells Urine Bacteria Hyaline Casts Microbiology Microbiology Results: Microbiology 01/18/23 11:55 Gram Stain - Final Sputum - Expectorated Assessment and Plan (1) Acute on chronic hypoxic respiratory failure: Status: Acute (2) COPD (chronic obstructive pulmonary disease): Status: Acute Plan An 82 years old lady with PMH of CAD, COPD on 2L, CHF, Fibromyalgia, Hypothyroid, PAF among others who presents with 1 week of Dyspnea and SOB. Acute on chronic hypoxic respiratory failure 2/2 COPD exacerbation Continue IV Steroids Azithromycin PO Nebulizers ATC and PRN Wean O2 down as tolerated resume home inhalors Diabetes mellitus Sliding scale History of CRISTA CPAP at night Morbid Obesity BMI 40 Discussed importance of weight management Hypothyroidism Continue levothyroxine History of paroxysmal atrial fibrillation No exacerbation Continue diltiazem and apixaban Coronary artery disease continue aspirin and statin DVT prophylaxis with Apixaban The patient will need overnight hosptial stay for treatment of hypoxic failure Quality Stroke Does the patient have a stroke diagnosis?: No VTE Prior VTE?: No VTE Risk Level:: Medical - moderate - high VTE Device Contraindication: Treatment Not Indicated VTE Drug Contraindication: N/A - Med Ordered
[2023-01-18 15:50] LABS: Glucose, Whole Blood 211 mg/dL (60-115)
[2023-01-18 20:19] LABS: Glucose, Whole Blood 134 mg/dL (60-115)
[2023-01-19] VITALS (7 sets, daily range): BP systolic 134–150; BP diastolic 74–88; PULSE 93–106; RESP 18; TEMP 36.2–36.4; O2SAT 93–95
[2023-01-19] MEDS: Omeprazole 20 MG CAPSULE.DR PO (05:33)
[2023-01-19] MEDS: Levothyroxine Sodium 100 MCG TABLET PO (05:33)
[2023-01-19 06:51] LABS: Anion Gap 16 (12-20); Blood Urea Nitrogen 28 mg/dL (9-16); Calcium 9.8 mg/dL (8.4-10.2); Carbon Dioxide 24 mmol/L (22-29); Chloride 107 mmol/L (96-108); Creatinine Clr Calc Pharmacy 48.5; Estimated Glomerular Filt Rate 56; Glucose Random 147 mg/dL (60-115); Potassium 4.5 mmol/L (3.3-5.1); Sodium 142 mmol/L (135-145)
[2023-01-19 08:03] LABS: Glucose, Whole Blood 122 mg/dL (60-115)
[2023-01-19] MEDS: 0.9 % Sodium Chloride Flush 3 ML SYRINGE IVFLUSH ×3 (08:09→20:47)
[2023-01-19] MEDS: Aspirin 81 MG TAB.CHEW PO (08:09)
[2023-01-19] MEDS: methylPREDNISolone Sod Succ 40 MG/ML VIAL IVPUSH ×2 (08:09→20:46)
[2023-01-19] MEDS: Ezetimibe 10 MG TABLET PO (08:09)
[2023-01-19] MEDS: Ferrous Sulfate 324 MG TABLET.DR PO (08:10)
[2023-01-19] MEDS: DULoxetine HCl 30 MG CAPSULE.DR PO (08:10)
[2023-01-19] MEDS: Furosemide 40 MG TABLET PO (08:10)
[2023-01-19] MEDS: Thiamine HCL 100 MG TABLET PO (08:10)
[2023-01-19] MEDS: Cholecalciferol (Vitamin D3) 25 MCG TABLET PO (08:10)
[2023-01-19] MEDS: Metoprolol Succinate ER 50 MG TAB.ER.24H PO (08:10)
[2023-01-19] MEDS: Atorvastatin Calcium 80 MG TABLET PO (08:10)
[2023-01-19] MEDS: Apixaban 5 MG TABLET PO ×2 (08:10→20:47)
[2023-01-19] MEDS: Albuterol/Iprat 2.5/0.5MG 3 ML AMPUL.NEB INHALE ×3 (08:52→19:50)
[2023-01-19] MEDS: Fluticasone/Vilanterol 200/25 BLST.W.DEV 1 PUFF INHALE ×2 (08:53→19:50)
[2023-01-19 11:16] LABS: Glucose, Whole Blood 211 mg/dL (60-115)
--- NOTE | 2023-01-19 11:30 | MHC.CM.PN ---
CM MET WITH PT TO DISCUSS DC PLANS PT AWARE STR WAS BEING RECOMMENDED, HOWEVER SHE STATES SHE IS NOT INTERESTED IN GOING TO A FACILITY SHE REPORTS SHE HAS [facility] AT HOME FOR NURSING AND THERAPY DCP: PT WILL DC HOME TOMORROW WITH RESUMPTION OF [facility] SERVICES VIA BLS TRANSPORT
[2023-01-19] MEDS: Insulin Lispro 100 UNIT/ML 3 ML VIAL SUBCUT ×2 (12:04→20:47)
--- NOTE | 2023-01-19 12:45 | P.PNIM_ITS ---
Subjective Subjective Date of Service: 01/19/23 Interval History: seen and evaluated feels mildly better, still on O2 supplement still reporting cough resolved diarrhea. no abd pain no fever or chills Review of Systems Review of Systems: Yes all other systems are reviewed and are negative Physical Exam 2 Vital Signs: Vital Signs: Last Vital Signs Temp 97.2 F 01/19/23 07:25 Pulse 101 H 01/19/23 11:24 Resp 18 01/19/23 11:24 BP 134/74 01/19/23 07:25 Pulse Ox 95 01/19/23 07:25 O2 Del Method Nasal Cannula 01/19/23 07:25 O2 Flow Rate 3 01/19/23 07:25 Oxygen Flow Rate 3 01/17/23 11:59 BMI result Body Mass Index 40.2 Const: Other: Constitutional : Awake, interactive, obese, in mild resp distress Neck : Normal inspection, Supple Cardiovascular : RRR, no JVP, no lower extremity edema Respiratory : good bilateral air entry, no crackles, wheezes or rhonchi, in mild resp distress Gastrointestinal: soft, lax, Normal bowel sounds, Non tender Skin : Warm, Dry Neurological : Alert & oriented x3, No focal deficit Objective Data Active Medications Acetaminophen (Acetaminophen 325 Mg Tablet) 650 mg PO Q6H PRN PRN Reason: Pain, Mild (Pain Scale 1-3) Albuterol Sulfate (Albuterol Sulfate (0.083%) 2.5 Mg/3 Ml Vial.Neb) 2.5 mg INHALE Q4H PRN PRN Reason: Shortness of Breath/Wheezing Albuterol/Ipratropium (Albuterol/Iprat 2.5/0.5mg 3 Ml Ampul.Neb) 3 ml INHALE RQ4H WHILE AWAKE [facility] Last Admin: 01/19/23 11:23 Dose: 3 ml Documented By: PAVEL Apixaban (Apixaban 5 Mg Tablet) 5 mg PO BID [facility] Last Admin: 01/19/23 08:10 Dose: 5 mg Documented By: KATHERINE Aspirin (Aspirin 81 Mg Tab.Chew) 81 mg PO DAILY [facility] Last Admin: 01/19/23 08:09 Dose: 81 mg Documented By: KATHERINE Atorvastatin Calcium (Atorvastatin Calcium 80 Mg Tablet) 80 mg PO DAILY [facility] Last Admin: 01/19/23 08:10 Dose: 80 mg Documented By: KATHERINE Azithromycin (Azithromycin 500 Mg Tablet) 500 mg PO Q24H [facility] Last Admin: 01/18/23 15:00 Dose: 500 mg Documented By: SUZAN Clotrimazole (Clotrimazole 1 % Cream 15 Gm Tube) 1 appl TOPICAL BID [facility]; Protocol Last Admin: 01/19/23 08:24 Dose: Not Given Documented By: KATHERINE Non-Admin Reason: pt refused Cyanocobalamin (Cyanocobalamin (Vitamin B-12) 1,000 Mcg/Ml Vial) 1,000 mcg IM Q28D [facility] Duloxetine HCl (Duloxetine Hcl 30 Mg Capsule.) 30 mg PO DAILY [facility] Last Admin: 01/19/23 08:10 Dose: 30 mg Documented By: KATHERINE Ezetimibe (Ezetimibe 10 Mg Tablet) 10 mg PO DAILY [facility] Last Admin: 01/19/23 08:09 Dose: 10 mg Documented By: KATHERINE Ferrous Sulfate (Ferrous Sulfate 324 Mg Tablet.) 324 mg PO DAILY [facility] Last Admin: 01/19/23 08:10 Dose: 324 mg Documented By: KATHERINE Fluticasone/Vilanterol (Fluticasone/Vilanterol 200/25 Blst.W.Dev) 1 puff INHALE BID [facility] Last Admin: 01/19/23 08:53 Dose: 1 puff Documented By: PAVEL Furosemide (Furosemide 40 Mg Tablet) 40 mg PO DAILY [facility]; Protocol Last Admin: 01/19/23 08:10 Dose: 40 mg Documented By: KATHERINE Insulin Human Lispro (Insulin Lispro 100 Unit/Ml 3 Ml Vial) 0 unit SUBCUT QIDACHS [facility]; Protocol Last Admin: 01/19/23 12:04 Dose: 4 unit Documented By: KATHERINE Levothyroxine Sodium (Levothyroxine Sodium 100 Mcg Tablet) 100 mcg PO DAILY@0600 [facility] Last Admin: 01/19/23 05:33 Dose: 100 mcg Documented By: CONSUELO Methylprednisolone Sodium Succinate (Methylprednisolone Sod Succ 40 Mg/Ml Vial) 40 mg IVPUSH Q12H [facility] Last Admin: 01/19/23 08:09 Dose: 40 mg Documented By: KATHERINE Metoprolol Succinate (Metoprolol Succinate Er 50 Mg Tab.Er.24h) 50 mg PO DAILY [facility]; Protocol Last Admin: 01/19/23 08:10 Dose: 50 mg Documented By: KATHERINE Nitroglycerin (Nitroglycerin 0.4 Mg Tab.Subl) 0.4 mg SUBLINGUAL Q5M PRN PRN Reason: for angina Omeprazole (Omeprazole 20 Mg Capsule.Dr) 20 mg PO DAILY@0630 [facility] Last Admin: 01/19/23 05:33 Dose: 20 mg Documented By: CONSUELO Ondansetron HCl (Ondansetron Hcl 4 Mg/2 Ml Vial) 4 mg IVPUSH Q8H PRN PRN Reason: Nausea and Vomiting Sodium Chloride (0.9 % Sodium Chloride Flush 3 Ml Syringe) 3 ml IVFLUSH QSHIFT [facility] Last Admin: 01/19/23 08:09 Dose: 3 ml Documented By: KATHERINE Thiamine HCl (Thiamine Hcl 100 Mg Tablet) 100 mg PO DAILY [facility] Last Admin: 01/19/23 08:10 Dose: 100 mg Documented By: KATHERINE Vitamin D (Cholecalciferol (Vitamin D3) 25 Mcg Tablet) 25 mcg PO DAILY [facility] Last Admin: 01/19/23 08:10 Dose: 25 mcg Documented By: KATHERINE Labs 01/18/23 05:07 01/19/23 06:08 Labs: Laboratory Results - last 24 hr 01/18/23 01/18/23 01/19/23 15:38 20:15 06:08 Anion Gap 16 Estim Creat Clear Calc 48.5 Estimated GFR 56 POC Glucose 211 H 134 H Random Glucose 147 H Calcium 9.8 01/19/23 01/19/23 07:28 11:06 Anion Gap Estim Creat Clear Calc Estimated GFR POC Glucose 122 H 211 H Random Glucose Calcium Microbiology Microbiology Results: Microbiology 01/18/23 11:55 Gram Stain - Final Sputum - Expectorated Sputum Culture - Preliminary Culture in progress. 01/17/23 14:11 Blood Culture - Preliminary Blood - Venous No growth after 24 hours. 01/17/23 14:11 Blood Culture - Preliminary Blood - Venous No growth after 24 hours. Assessment and Plan (1) Acute on chronic hypoxic respiratory failure: Status: Acute (2) COPD (chronic obstructive pulmonary disease): Status: Acute Plan An 82 years old lady with PMH of CAD, COPD on 2L, CHF, Fibromyalgia, Hypothyroid, PAF among others who presents with 1 week of Dyspnea and SOB. Acute on chronic hypoxic respiratory failure 2/2 COPD exacerbation Continue IV Steroids Azithromycin PO Nebulizers ATC and PRN Wean O2 down as tolerated resume home inhalors Diabetes mellitus Sliding scale History of [place]RI[place] CPAP at night Morbid Obesity BMI 40 Discussed importance of weight management Hypothyroidism Continue levothyroxine History of paroxysmal atrial fibrillation No exacerbation Continue diltiazem and apixaban Coronary artery disease continue aspirin and statin DVT prophylaxis with Apixaban The patient will need overnight hosptial stay for treatment of hypoxic failure Quality Stroke Does the patient have a stroke diagnosis?: No VTE Prior VTE?: No VTE Risk Level:: Medical - moderate - high VTE Device Contraindication: Treatment Not Indicated VTE Drug Contraindication: N/A - Med Ordered
[2023-01-19 16:44] LABS: Glucose, Whole Blood 149 mg/dL (60-115)
[2023-01-19] MEDS: Azithromycin 500 MG TABLET PO (16:44)
--- NOTE | 2023-01-19 17:21 | PC.NURSE ---
MD Banegas made aware pt refusing to get out of bed into chair. Education provided to pt on importance of getting out of bed and frequent repositioning. Pt states she understands and states I will get out of bed tomorrow .
[2023-01-19 20:28] LABS: Glucose, Whole Blood 181 mg/dL (60-115)
[2023-01-20] MEDS: Levothyroxine Sodium 100 MCG TABLET PO (05:18)
[2023-01-20] MEDS: Omeprazole 20 MG CAPSULE.DR PO (05:18)
[2023-01-20 06:56] VITALS: BP 138/74; PULSE 85; RESP 16; TEMP 36.6; O2SAT 95
[2023-01-20 07:12] LABS: Glucose, Whole Blood 149 mg/dL (60-115)
[2023-01-20] MEDS: Metoprolol Succinate ER 50 MG TAB.ER.24H PO (08:30)
[2023-01-20] MEDS: Furosemide 40 MG TABLET PO (08:31)
[2023-01-20] MEDS: 0.9 % Sodium Chloride Flush 3 ML SYRINGE IVFLUSH (08:31)
[2023-01-20] MEDS: Ferrous Sulfate 324 MG TABLET.DR PO (08:31)
[2023-01-20] MEDS: Ezetimibe 10 MG TABLET PO (08:31)
[2023-01-20] MEDS: Thiamine HCL 100 MG TABLET PO (08:31)
[2023-01-20] MEDS: Atorvastatin Calcium 80 MG TABLET PO (08:31)
[2023-01-20] MEDS: Apixaban 5 MG TABLET PO (08:31)
[2023-01-20] MEDS: Cholecalciferol (Vitamin D3) 25 MCG TABLET PO (08:31)
[2023-01-20] MEDS: methylPREDNISolone Sod Succ 40 MG/ML VIAL IVPUSH (08:31)
[2023-01-20] MEDS: Aspirin 81 MG TAB.CHEW PO (08:31)
[2023-01-20] MEDS: DULoxetine HCl 30 MG CAPSULE.DR PO (08:31)
--- NOTE | 2023-01-20 11:01 | P.DS_ITS ---
DS: Providers Provider Date of Service: 01/20/23 Date of admission: 01/17/23 15:22 Primary care physician: Unknown Physician DS: Diagnosis Discharge Diagnosis (1) Acute on chronic hypoxic respiratory failure: Status: Acute (2) COPD (chronic obstructive pulmonary disease): Status: Acute DS: Summary Hospital Course Hospital Course: Admission note HPI An 82 years old lady with PMH of CAD, COPD on 2L, CHF, Fibromyalgia, Hypoth yroid, PAF among others who presents with 1 week of Dyspnea and SOB. She reports that she started having upper respiratory symptoms last week that did not resolve and only got worse during the week with increase amount of greenish phlem and dyspnea with minimal exertion. No Fever, chills, weight loss, decrease appetite, chest pain, palpitations, nausea, vomiting, diarrhea or urinary symptoms. She lives alone with [employer] helping her with her daily needs. In ED found hypoxic in respiratory distress. Admitted for further treatment. Hospital course The patient was admitted for treatment of acute on chronic hypoxic respiratory failure secondary to COPD exacerbation. Started on IV Steroids, Azithromycin PO, Nebulizers ATC and PRN and Weaned O2 down as tolerated with resuming his home inhalors with good response over the course of hospital stay as she feels comfortable on 2L her baseline. CPAP was used at night. Continue Azithromycin as prescribed Continue Prednisone as prescribed Use your home nebulizer 4 times daily for the next 3 days then as needed Time Attestation Discharge coordination time: Greater than 30 minutes Quality: Safe Use of Opioids Does Pt have an Active Cancer Diagnosis on the Problem List?: No Quality: Stroke Does the patient have a stroke diagnosis?: No Physical Exam Vital Signs: Vital Signs: Last Vital Signs Temp 98 F 01/20/23 06:56 Pulse 85 01/20/23 06:56 Resp 16 01/20/23 06:56 BP 138/74 01/20/23 06:56 Pulse Ox 95 01/20/23 06:56 O2 Del Method Nasal Cannula 01/20/23 06:56 O2 Flow Rate 2 01/20/23 06:56 Oxygen Flow Rate 3 01/17/23 11:59 BMI result Body Mass Index 40.2 Const: Other: Constitutional : Awake, interactive, obese, in mild resp distress Neck : Normal inspection, Supple Cardiovascular : RRR, no JVP, no lower extremity edema Respiratory : good bilateral air entry, no crackles, wheezes or rhonchi, not in distress Gastrointestinal: soft, lax, Normal bowel sounds, Non tender Skin : Warm, Dry Neurological : Alert & oriented x3, No focal deficit DS: Data Data Completed and Pending Labs on day of discharge: Laboratory Results - last 24 hr 01/19/23 01/19/23 01/19/23 11:06 16:33 20:25 POC Glucose 211 H 149 H 181 H 01/20/23 07:09 POC Glucose 149 H Preliminary micro results at discharge 01/17/23 14:11 Blood Culture - Preliminary Blood - Venous No growth after 48 hours. 01/17/23 14:11 Blood Culture - Preliminary Blood - Venous No growth after 48 hours. Imaging Chest x-ray: Radiologist's impression: ITS Impressions Chest X-Ray 01/17/23 12:05 IMPRESSION: No significant change since 08/26/2021 Discharge Plan Discharge Anticipated Discharge Date/Time: 01/20/23 10:32 Patient Disposition: Home Health Service Discharge Diagnosis: COPD exacerbation Referrals: Physician,Unknown J [Primary Care Provider] - 1 Week Discharge Medications: New azithromycin 500 mg Tablet 500 mg PO Q24H Qty: 3 0RF prednisone 20 mg tablet 40 mg PO DAILY Qty: 10 0RF Continued (DME) stair lift and ramp See Rx Instructions .Route .MEDSUPPLY Qty: 1 0RF Rx Instructions: As directed (DME) blood-glucose meter [OneTouch Ultra2 Meter] Kit See Rx Instructions .Route Qty: 1 0RF Rx Instructions: As directed (DME) lancets [[place]Touch UltraSoft Lancets[place] [facility] [place] .Route Qty: 100 3RF Rx Instructions: As directed test blood glucose daily (DME) blood-glucose meter [OneTouch UltraMini] Kit See Rx Instructions .Route Qty: 1 0RF Rx Instructions: As directed (DME) Wheelchair Ramp See Rx Instructions .Route .MEDSUPPLY Qty: 1 0RF Rx Instructions: As directed (DME) Transfer Bench Misc See Rx Instructions .Route Qty: 1 0RF Rx Instructions: As directed for bath tub (DME) blood pressure monitor [Blood Pressure Kit] Kit See Rx Instructions .Route Qty: 1 0RF Rx Instructions: As directed (DME) [facility] Bed diagnosis I50.32 See Rx Instructions .Route .MEDSUPPLY Qty: 1 0RF Rx Instructions: As directed, GERMAN 99 (DME) Nebulizer supplies See Rx Instructions .Route .MEDSUPPLY Qty: 3 3RF Rx Instructions: As directed (DME) Air mattress See Rx Instructions .Route .MEDSUPPLY Qty: 1 0RF Rx Instructions: As directed cyanocobalamin (vitamin B-12) 1,000 mcg/mL solution 1,000 mcg IM Q4W 90 Days Qty: 4 11RF nitroglycerin 0.4 mg tablet, sublingual 0.4 mg sublingual Q5M PRN (Reason: for angina) 90 Days Qty: 25 0RF docusate sodium 100 mg capsule 100 mg PO BID PRN (Reason: consti) Qty: 60 11RF ascorbic acid (vitamin C) 500 mg tablet 500 mg PO BID Qty: 180 3RF Eliquis 5 mg tablet 5 mg PO BID 90 Days Qty: 180 3RF (DME) lancets [OneTouch Delica Lancets] 33 gauge misc See Rx Instructions .Route Qty: 100 0RF Rx Instructions: test daily (DME) OneTouch Ultra Test Strip See Rx Instructions .ROUTE .COMPLEX Qty: 100 3RF Dose Instruction: DIRECTED TEST BLOOD GLUCOSE DAILY Rx Instructions: DIRECTED TEST BLOOD GLUCOSE DAILY (DME) FOUR WHEEL SCOOTER See Rx Instructions .Route .MEDSUPPLY Qty: 1 0RF Rx Instructions: As directed clotrimazole 1 % cream See Rx Instructions topical BID Qty: 45 11RF Rx Instructions: apply to affected area topical 2 times a day; ondansetron HCl 8 mg tablet 8 mg PO Q12H PRN (Reason: nausea and vomiting) Qty: 30 0RF furosemide 40 mg tablet 40 mg PO QAM Qty: 90 3RF (DME) pads for bedsores 7 7/8 X 11 3/4 pad See Rx Instructions .Route Qty: 50 11RF Rx Instructions: As directed Spiriva with HandiHaler 18 mcg capsule, w/inhalation device 1 cap inhalation DAILY Qty: 30 0RF Rx Instructions: puncture 1 cap using device; one dose = 2 inhalations albuterol sulfate 90 mcg/actuation HFA aerosol inhaler 2 puff PO Q4H PRN (Reason: for respiratory distress) Qty: 8.5 5RF albuterol sulfate 2.5 mg /3 mL (0.083 %) solution for nebulization 2.5 mg inhalation Q6H PRN (Reason: for wheezing) Qty: 450 5RF duloxetine 30 mg capsule,delayed release(DR/EC) 30 mg PO DAILY Qty: 90 3RF thiamine HCl (vitamin B1) 100 mg tablet 100 mg PO DAILY Qty: 90 2RF ipratropium-albuterol 0.5 mg-3 mg(2.5 mg base)/3 mL solution for nebulization 3 ml inhalation Q4-6H PRN (Reason: for wheezing) Qty: 180 3RF fluticasone propion-salmeterol 500-50 mcg/dose blister with device 1 inh inhalation BID Qty: 60 11RF (DME) pressure release mattress See Rx Instructions .Route .MEDSUPPLY Qty: 1 0RF Rx Instructions: As directed Dexilant 30 mg capsule,biphase delayed releas 30 mg PO DAILY Qty: 90 3RF meclizine 12.5 mg tablet 12.5 mg PO BID PRN (Reason: for motion sickness) Qty: 60 5RF acyclovir 5 % ointment 1 appl topical 6XD 7 Days Qty: 30 3RF Rx Instructions: apply to genital lesions 6 times a day for 7 days ezetimibe 10 mg tablet 10 mg PO DAILY Qty: 90 3RF levothyroxine 100 mcg tablet 100 mcg PO QAM Qty: 90 3RF ferrous sulfate 325 mg (65 mg iron) Tablet 325 mg PO DAILY aspirin 81 mg Tablet 81 mg PO DAILY cholecalciferol (vitamin D3) [Vitamin D3] 25 mcg (1,000 unit) Capsule 25 mcg PO DAILY dicyclomine 10 mg Capsule 10 - 20 mg PO QID PRN (Reason: Abdominal Pain) metoprolol succinate 50 mg tablet extended release 24 hr 50 mg PO DAILY Mounjaro 2.5 mg/0.5 mL pen injector 2.5 mg subcut QWEEK (DME) hospital bed See Rx Instructions .Route .MEDSUPPLY Qty: 1 0RF Rx Instructions: As directed atorvastatin 80 mg tablet 80 mg PO DAILY 90 Days Qty: 90 3RF Discharge Orders: Discharge Order (Routine); Ordered 01/20/23 Ordered By: Wyatt Banegas Diet: Low salt diet Activity on Discharge: As tolerated Stand Alone Forms: Patient Portal Discharge page Care Plan Goals: Read below Health Concerns: Read below Plan of Treatment: Read below Assessment: Continue Azithromycin as prescribed Continue Prednisone as prescribed Use your home nebulizer 4 times daily for the next 3 days then as needed
[2023-01-20 11:09] LABS: Glucose, Whole Blood 160 mg/dL (60-115)
--- NOTE | 2023-01-20 11:39 | MHC.CM.PN ---
PT WILL DC HOME TODAY WITH [employer] OF [employer] [facility] [employer] [facility] SHE WILL TRANSPORT VIA [facility] AT 1300 HOURS
[2023-01-20] MEDS: Insulin Lispro 100 UNIT/ML 3 ML VIAL SUBCUT (11:57)
== END 2023-01-20 13:15 | disposition home health service (06) | DRG 191 ==
LOC: HO.ED 15:35 → HO.EDOVER 15:48 → HO.S3 18:58
PROVIDERS: Physician Assistant Medical; Admitting Provider Student in an Organized Health Care Education/Training Program; Emergency Provider Emergency Medicine Emergency Medical Services; Visit Provider Student in an Organized Health Care Education/Training Program
DX: J44.1 Chronic obstructive pulmonary disease with (acute) exacerbation (principal); I50.32 Chronic diastolic (congestive) heart failure; Z68.41 Body mass index [BMI] 40.0-44.9, adult; J96.11 Chronic respiratory failure with hypoxia; I11.0 Hypertensive heart disease with heart failure; E11.9 Type 2 diabetes mellitus without complications; I48.0 Paroxysmal atrial fibrillation; I25.10 Atherosclerotic heart disease of native coronary artery without angina pectoris; G47.33 Obstructive sleep apnea (adult) (pediatric); E66.01 Morbid (severe) obesity due to excess calories; E03.9 Hypothyroidism, unspecified; Z20.822 Contact with and (suspected) exposure to COVID-19; Z99.81 Dependence on supplemental oxygen; Z79.01 Long term (current) use of anticoagulants; Z79.51 Long term (current) use of inhaled steroids; Z79.82 Long term (current) use of aspirin; Z79.899 Other long term (current) drug therapy
CPT/HCPCS: 0241U; 36415; 71046; 80048; 80053; 81001; 82803; 82947; 83605; 83735; 84484; 85025; 85027; 85610; 85730; 87040; 87070; 87205; 93005; 94640; 97162; 99285; J0696; J2920; J2930

== ENCOUNTER → 2023-01-17 11:23 | Outpatient (BNV) | payer OTHER, SELFPAY | PROVIDERS: Admitting Provider Student in an Organized Health Care Education/Training Program; Emergency Provider Emergency Medicine Emergency Medical Services; Visit Provider Internal Medicine Cardiovascular Disease | DX: I49.3 Ventricular premature depolarization (principal); R94.31 Abnormal electrocardiogram [ECG] [EKG] | CPT/HCPCS: 93010 ==

== ENCOUNTER → 2023-01-17 15:22 | Outpatient (BNV) | payer OTHER, SELFPAY | PROVIDERS: Admitting Provider Student in an Organized Health Care Education/Training Program; Emergency Provider Emergency Medicine Emergency Medical Services; Visit Provider Student in an Organized Health Care Education/Training Program | DX: J96.21 Acute and chronic respiratory failure with hypoxia (principal); J44.9 Chronic obstructive pulmonary disease, unspecified | CPT/HCPCS: 99222; 99232; 99239 ==

== ENCOUNTER 2023-02-08 18:22 | Inpatient (IN) | payer OTHER, SELFPAY ==
--- NOTE | ~2023-02-08 | XR_ITS ---
Examination: Right femur, chest and pelvis. CLINICAL INDICATION: Fall. Pain. COMPARISON: Chest: 01/17/2023 TECHNIQUE: Right femur 2 views. Chest one view. Pelvis 1 view FINDINGS: Chest: There is moderate cardiomegaly with normal pulmonary vascularity. Lungs are expanded and clear. There is mild dextroscoliosis of dorsolumbar spine. There are surgical anisa in lower midline mediastinum from previous intervention. AP pelvis and right hip: There is a subtrochanteric comminuted fracture right hip with no dislocation. The left hip joint space appears normal. Rest of the pelvis is normal. The soft tissues are normal. XR/XR pelvis 1-2V IMPRESSION: 1. Comminuted subtrochanteric fracture right hip with no dislocation. Rest of the pelvis is normal. 2. Moderate cardiomegaly. No acute process seen in the chest.
--- NOTE | ~2023-02-08 | XR_ITS ---
Examination: Right femur, chest and pelvis. CLINICAL INDICATION: Fall. Pain. COMPARISON: Chest: 01/17/2023 TECHNIQUE: Right femur 2 views. Chest one view. Pelvis 1 view FINDINGS: Chest: There is moderate cardiomegaly with normal pulmonary vascularity. Lungs are expanded and clear. There is mild dextroscoliosis of dorsolumbar spine. There are surgical anisa in lower midline mediastinum from previous intervention. AP pelvis and right hip: There is a subtrochanteric comminuted fracture right hip with no dislocation. The left hip joint space appears normal. Rest of the pelvis is normal. The soft tissues are normal. XR/XR chest 1V IMPRESSION: 1. Comminuted subtrochanteric fracture right hip with no dislocation. Rest of the pelvis is normal. 2. Moderate cardiomegaly. No acute process seen in the chest.
--- NOTE | ~2023-02-08 | XR_ITS ---
EXAMINATION: XR ABDOMEN KUB CLINICAL INDICATION: Constipation. COMPARISON: 02/10/2023 TECHNIQUE: 3 AP supine views of the abdomen. FINDINGS: Redemonstration of partially visualized intertrochanteric fracture of the right femur status post femoral screw and intramedullary higinio placement. S-shaped thoracolumbar scoliosis with multilevel degenerative changes. Surgical clips in the perihilar region. Loss of height of multiple lumbar vertebral bodies. Visualization limited due to body habitus. Gas is scattered throughout the proximal and transverse colon as well as descending colon. There is a paucity of gas in the rectosigmoid colon region. [id number] amount of stool in the colon. Multiple prominent air-filled loops of small bowel in the mid abdomen. XR/XR KUB IMPRESSION: Gas is scattered throughout the proximal and transverse colon as well as descending colon. There is a paucity of gas in the rectosigmoid colon region. [id number] amount of stool in the colon. Multiple prominent air-filled loops of small bowel in the mid abdomen. Continued surveillance recommended.
--- NOTE | ~2023-02-08 | FL_ITS ---
EXAMINATION: XR FLUOROSCOPY WITH IMAGES CLINICAL INFORMATION: Right femoral intramedullary nail. COMPARISON: Right femur radiographs 02/08/2023 TECHNIQUE: Fluoroscopy Time: 1.3 minutes. Cumulative Dose: 29.1 mGy. DAP: 0.496 Gycm2. Images: 4. FINDINGS: Partial visualization is made of a intertrochanteric fracture of the right femur status post femoral screw and intramedullary higinio placement. A distal interlocking screw is noted. FL/FL guidance in OR IMPRESSION: Intraprocedural fluoroscopy as detailed above.
--- NOTE | ~2023-02-08 | CT_ITS ---
CT HEAD WITHOUT IV CONTRAST CT CERVICAL SPINE WITHOUT IV CONTRAST INDICATION: Fall. Seizure. COMPARISON: Head CT 08/28/2021. TECHNIQUE: Multidetector CT acquisitions of the head and cervical spine were obtained without IV contrast. Multiplanar reformats were acquired and utilized for image interpretation. This CT examination was performed using dose optimization techniques as appropriate, variously including the following: *Automated exposure control *Adjustment of mA and/or kV according to patient size (this includes techniques or standardized protocols for targeted exams where dose is matched to indication/reason for exam; i.e. extremities or head) *Use of iterative reconstruction technique FINDINGS: HEAD: There is global cerebral volume loss, there is chronic microangiopathy, and there is atherosclerotic calcification throughout the intracranial arterial vasculature. There is no intracranial hemorrhage, hydrocephalus, extra-axial surface collection, midline shift, or other herniation pattern. [place] to white matter differentiation is diffusely maintained without evidence of an evolved acute territorial infarct. The basilar cisterns are preserved. No significant soft tissue abnormality. No acute osseous abnormality. The paranasal sinuses and the mastoid air cells are well aerated. CERVICAL SPINE: Reversal the cervical lordosis. No acute fractures and no acute subluxations. There is stable mild chronic vertebral body height loss at the C3, C4, and C5 levels. There are multilevel endplate osteophytes. Multilevel degenerative disc disease and multilevel hypertrophic facet arthropathy. Retropharyngeal course of the right common carotid artery and the proximal right internal carotid artery. Atherosclerotic calcification involving the carotid bifurcations bilaterally. CT/CT cervical spine wo IV con IMPRESSION: - No acute intracranial abnormality. There is global cerebral volume loss, there is chronic microangiopathy, and there is atherosclerotic calcification throughout the intracranial arterial vasculature. - No acute osseous abnormality within the cervical spine. Cervical spondylosis. Stable chronic reversal of the cervical lordosis.
--- NOTE | ~2023-02-08 | XR_ITS ---
Examination: Right femur, chest and pelvis. CLINICAL INDICATION: Fall. Pain. COMPARISON: Chest: 01/17/2023 TECHNIQUE: Right femur 2 views. Chest one view. Pelvis 1 view FINDINGS: Chest: There is moderate cardiomegaly with normal pulmonary vascularity. Lungs are expanded and clear. There is mild dextroscoliosis of dorsolumbar spine. There are surgical anisa in lower midline mediastinum from previous intervention. AP pelvis and right hip: There is a subtrochanteric comminuted fracture right hip with no dislocation. The left hip joint space appears normal. Rest of the pelvis is normal. The soft tissues are normal. XR/XR femur RT 2V IMPRESSION: 1. Comminuted subtrochanteric fracture right hip with no dislocation. Rest of the pelvis is normal. 2. Moderate cardiomegaly. No acute process seen in the chest.
[2023-02-08 18:50] VITALS: BP 144/90; BP 174/94; PULSE 112; PULSE 84; RESP 20; TEMP 37.1; O2SAT 96; BMI 31.9
--- NOTE | 2023-02-08 18:57 | ECG_ITS ---
Test Reason : FALL Blood Pressure : / mmHG Vent. Rate : 102 BPM Atrial Rate : 102 BPM P-R Int : 200 ms QRS Dur : 086 ms QT Int : 344 ms P-R-T Axes : 084 031 091 degrees QTc Int : 448 ms Sinus tachycardia Septal infarct (cited on or before 26-AUG-2021) Abnormal ECG When compared with ECG of 17-JAN-2023 11:44, Premature ventricular complexes are no longer Present QRS axis Shifted left Referred By: Petra Van Electronically Signed By:TATO PERDOMO MD
--- NOTE | 2023-02-08 19:01 | ED.GENADULT ---
HPI - General Adult General Chief complaint: Fall Stated complaint: fall, r leg and hip pain Time Seen by Provider: 02/08/23 18:23 History of Present Illness HPI narrative: 82 y/o F patient; PMH T2DM, HTN, COPD on 2L, extensive cardiac history, CHF, CAD, vertebral aneurysm, atrial fibrillation on Eliquis, CRISTA, hypothyroidism, obesity; presents from home with report of accidental fall. The patient states she was walking to her mailbox when she fell backwards. She struck the back of her head and landed on her right hip. She has not been ambulatory since the event occurred. She primarily complains of righ hip pain. She denies: SOB, cough/congestion, chest pain, nausea/vomiting, abdominal pain. Related Data Home Medications Medication Instructions Recorded Confirmed aspirin 81 mg tablet 81 mg PO DAILY 12/01/19 02/08/23 cholecalciferol (vitamin D3) 25 25 mcg PO DAILY 12/01/19 02/08/23 mcg (1,000 unit) capsule (Vitamin D3) dicyclomine 10 mg capsule 10 - 20 mg PO QID PRN Abdominal 12/01/19 02/08/23 Pain ferrous sulfate 325 mg (65 mg 325 mg PO DAILY 12/01/19 02/08/23 iron) tablet metoprolol succinate 50 mg 50 mg PO DAILY 01/17/23 02/08/23 tablet,extended release 24 hr acyclovir 5 % topical ointment 1 appl topical 6XD PRN genital 02/08/23 02/08/23 lesions Previous Rx's Medication Instructions Recorded stair lift and ramp #1 ea 08/31/20 blood-glucose meter (OneTouch #1 ea 09/14/20 Ultra2 Meter kit) blood-glucose meter (OneTouch #1 ea 09/16/20 UltraMini kit) Wheelchair Ramp #1 ea 10/06/20 Transfer Bench #1 ea 11/01/20 blood pressure monitor (Blood #1 ea 11/03/20 Pressure Kit) hospital bed #1 ea 01/23/21 Nebulizer supplies #3 ea 03/22/21 Semi Electric Hospital Bed #1 ea 03/22/21 diagnosis I50.32 Air mattress #1 ea 11/27/21 nitroglycerin 0.4 mg sublingual 0.4 mg sublingual Q5M PRN for 02/22/22 tablet angina 90 days #25 tabs docusate sodium 100 mg capsule 100 mg PO BID PRN consti #60 caps 03/20/22 ascorbic acid (vitamin C) 500 mg 500 mg PO BID #180 tabs 03/22/22 tablet apixaban 5 mg tablet (Eliquis) 5 mg PO BID 90 days #180 tabs 05/18/22 FOUR WHEEL SCOOTER #1 ea 06/08/22 clotrimazole 1 % topical cream See Rx Instructions topical BID 06/08/22 #45 grams ondansetron HCl 8 mg tablet 8 mg PO Q12H PRN nausea and 06/22/22 vomiting #30 tabs furosemide 40 mg tablet 40 mg PO QAM #90 tabs 07/02/22 pads for bedsores 7 78 X 11 3/4 #50 ea 07/10/22 tiotropium bromide 18 mcg capsule 1 cap inhalation DAILY #30 08/11/22 with inhalation device (Spiriva inhalations with HandiHaler) albuterol sulfate 2.5 mg/3 mL 2.5 mg (3 mL) inhalation Q6H PRN 09/10/22 (0.083 %) solution for nebulization for wheezing #450 mL duloxetine 30 mg capsule,delayed 30 mg PO DAILY #90 caps 09/17/22 release thiamine HCl (vitamin B1) 100 mg 100 mg PO DAILY #90 tabs 09/17/22 tablet ipratropium 0.5 mg-albuterol 3 mg 3 ml inhalation Q4-6H PRN for 09/21/22 (2.5 mg base)/3 mL nebulization wheezing #180 mL soln fluticasone 500 mcg-salmeterol 50 1 inh inhalation BID #60 ea 10/11/22 mcg/dose blistr powdr for inhalation pressure release mattress #1 ea 11/13/22 dexlansoprazole 30 mg 30 mg PO DAILY #90 caps 12/19/22 capsule,biphase delayed release (Dexilant) atorvastatin 80 mg tablet 80 mg PO DAILY 90 days #90 tabs 12/20/22 meclizine 12.5 mg tablet 12.5 mg PO BID PRN for motion 12/21/22 sickness #60 tabs ezetimibe 10 mg tablet 10 mg PO DAILY #90 tabs 01/15/23 levothyroxine 100 mcg tablet 100 mcg PO QAM #90 tabs 01/15/23 blood sugar diagnostic (OneTouch #100 strips 01/30/23 Ultra Test strips) cyanocobalamin (vitamin B-12) 1,000 mcg IM Q4W 90 days #4 mL 01/30/23 1,000 mcg/mL injection solution dulaglutide 3 mg/0.5 mL 3 mg (0.5 mL) subcut QWEEK #2 mL 01/30/23 subcutaneous pen injector (Trulicity) lancets #100 ea 01/30/23 lancets 33 gauge #100 ea 01/30/23 albuterol sulfate 90 mcg/actuation 2 puff PO Q4H PRN for respiratory 02/05/23 aerosol inhaler distress #8.5 ea Allergies Allergy/AdvReac Type Severity Reaction Status Date / Time morphine [MORPHINE] Allergy Unknown RASH Verified 02/08/23 19:19 pregabalin [From LYRICA] Allergy Unknown NAUSEA, Verified 02/08/23 19:19 felt high on drugs Review of Systems Review of Systems: Yes all other systems are reviewed and are negative [facility] Past Medical History Attestation statement: The following information was validated with the patient. 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 Low back pain Respiratory failure with hypoxia and hypercapnia Lower extremity weakness Nasal congestion Otitis externa Coronary artery disease Restrictive lung disease Diarrhea History of spinal stenosis Fibromyalgia Obesity (BMI 30-39.9) Carpal tunnel syndrome Abdominal aortic aneurysm Hypothyroid Obstructive sleep apnea Congestive heart failure Pernicious anemia Paroxysmal atrial fibrillation COPD (chronic obstructive pulmonary disease) DVT (deep venous thrombosis) Diverticulitis GERD (gastroesophageal reflux disease) HTN (hypertension) Clostridium difficile colitis CAD (coronary artery disease) Hypercholesterolemia Surgical History S/P BREANN-BSO (total abdominal hysterectomy and bilateral salpingo-oophorectomy) History of arthroplasty of left shoulder Hx of cholecystectomy H/O angioplasty Hx of appendectomy H/O cardiac catheterization Family History Family History Father Hypertension CVD (cardiovascular disease) Mother Colon cancer Sister Leukemia Sister Colon cancer Son Lung cancer Colon polyps Social History Social History Household Members: None Housing: Apartment Do you presently have visiting nurse or other home services: Yes Alcohol intake: never Patient Tobacco Use Status: Former Tobacco user Tobacco use type: Cigarette Years Smoked: stopped 2009 e-Cigarette/Vaping Use: Never Used Second Hand Smoke Exposure: No Advance Directives: Yes Advance Directives on File: Yes Advance Directives Date on File: 10/10/21 service: No Current occupational status: retired Current occupational exposures/hazards: No Cognitive needs: No Hearing needs: No Vision needs: Yes Physical Exam ED Vital Signs: Vital Signs - 24 hr 02/08/23 18:50 02/08/23 20:52 Temperature 98.8 F Pulse Rate 84 108 H Respiratory Rate 20 22 H Blood Pressure 174/94 H 150/87 H Pulse Oximetry 96 95 Oxygen Delivery Method Nasal Cannula Room Air BMI result Body Mass Index 31.9 Patient is afebrile and hemodynamically stable Const General: cooperative Nutritional Appearance: obese Orientation/consciousness: patient oriented x3 HENMT Head: Yes atraumatic Ears: TM's normal bilaterally Eyes General: appearance normal, both eyes and all related structures Pupils: Equal, round and reactive pupils present EOM: EOMs intact bilaterally Neck Neck: Yes full ROM and No tender Chest Chest palpation & inspection: normal inspection of the chest Resp Effort & Inspection: normal respiratory effort, no cough and no respiratory distress Auscultation: clear to auscultation bilaterally Cardio Rate: Other (irregularly ) Rhythm: other (irregular) Peripheral pulses: Peripheral pulses 2+ throughout GI Inspection: No distended Palpation (GI): Soft to palpation, not firm, nontender, no guarding and not rigid Auscultation: normal bowel sounds Neuro General: patient oriented x3 Cranial nerves: Yes CN's II-XII intact bilaterally and Yes Equal, round and reactive pupils present Extrem Other: Right lower extremity with pain to palpation of anterior hip. Pain with ROM. Soft compartments. NVI. Course Course Course Narrative: Patient is afebrile and hemodynamically stable. Will obtain CT Head/Neck, XR Right Pelvis with Femur, basic pre-op labs and EKG. Provided tylenol for pain control. Reevaluation(s) Reevaluation #1: Patient reports morphine allergy is a slight rash, she requests to receive the medication. Provided Morphine 2mg IV. XR consistent with right femoral fx involving the greater trochanters with displacement. Discussed with orthopedics. Recommend admission to medicine, holding eliquis. Reevaluation #2: CT Head/Neck unremarkable for acute traumatic changes. Laboratory studies unremarkable. Plan: Admit to hospitalist Condition: Stable Medications Administered Generic Name Dose Route Start Last Admin Trade Name Freq PRN Reason Stop Dose Admin Morphine Sulfate 4 mg 02/08/23 20:22 02/08/23 20:50 Morphine Sulfate 4 Mg/Ml Cartridge IVPUSH 4 mg Q4H PRN Administration Pain, Severe (Pain Scale 7-10) Protocol Discontinued Medications Generic Name Dose Route Start Last Admin Trade Name Freq PRN Reason Stop Dose Admin Acetaminophen 975 mg 02/08/23 18:59 02/08/23 21:02 Acetaminophen 325 Mg Tablet PO 02/08/23 19:00 Not Given ONCE ONE Morphine Sulfate 2 mg 02/08/23 19:39 02/08/23 20:11 Morphine Sulfate 2 Mg/Ml Cartridge IVPUSH 02/08/23 19:40 2 mg ONCE ONE Administration Protocol Medical Decision Making Lab Data 02/08/23 21:09 02/08/23 21:09 Labs: Lab Results 02/08/23 Range/Units 21:09 WBC 11.6 H (4.8-10.8) X10*3/uL RBC 4.10 L (4.20-5.50) X10*6/uL Hgb 11.8 L (12.0-16.0) g/dl Hct 37.0 (37.0-47.0) % MCV 90.2 (80.0-98.0) fL MCH 28.8 (27.0-33.0) pg MCHC 31.9 (31.0-35.0) g/dl RDW 13.0 (11.0-16.0) % Plt Count 433 H D (160-400) X10*3/uL MPV 8.9 L (9.4-12.3) fL Immature Gran % (Auto) 0.7 H (0.0-0.4) % Neut % (Auto) 79.8 H (45-73) % Lymph % (Auto) 11.2 L (20-40) % Chambers % (Auto) 7.6 (2-11) % Eos % (Auto) 0.5 (0-4) % Baso % (Auto) 0.2 (0-2) % Lymph # (Auto) 1.3 (1.2-4.9) X10*3/uL Chambers # (Auto) 0.9 (0.1-1.2) X10*3/uL Eos # (Auto) 0.1 (0.0-0.4) X10*3/uL Baso # (Auto) 0.0 (0.0-0.2) X10*3/uL Abs Immat Gran (auto) 0.08 H (0.00-0.03) X10*3/uL Absolute Neuts (auto) 9.2 H (2.0-8.3) x10*3/uL Absolute Nucleated RBC 0.000 (0.0-0.012) X10*3/uL Nucleated RBC % (auto) 0.0 (0.0-0.2) /100WBC Sodium 144 (135-145) mmol/L Potassium 4.4 (3.3-5.1) mmol/L Chloride 108 (96-108) mmol/L Carbon Dioxide 26 (22-29) mmol/L Anion Gap 14 (12-20) BUN 12 (9-16) mg/dL Creatinine 0.86 (0.5-1.4) mg/dL Estim Creat Clear Calc 51.0 Estimated GFR > 60 Random Glucose 128 H (60-115) mg/dL Calcium 9.7 (8.4-10.2) mg/dL Discharge Plan Discharge Clinical Impression: Fall, Closed fracture of right hip Patient Disposition: Admitted As Inpatient
--- NOTE | 2023-02-08 19:42 | MHC.EDTECH ---
Before this structural technician left for break at 19:10 I spoke to the charge nurse Brigida Rose RN and REGGIE saenz so my section would be covered. I asked REGGIE if she could please do the EKG so I could go on break and she said yes. When I get back from break EKG was not done because as reported patient was taken for CT.
[2023-02-08] MEDS: Morphine Sulfate 2 MG/ML CARTRIDGE IVPUSH (20:11)
--- NOTE | 2023-02-08 20:47 | MHC.EDTECH ---
This tech took over care for this patient at this time. at this time she still needs lab work done.
--- NOTE | 2023-02-08 20:48 | PHA.MEDREC ---
Pharmacy Consult ? Medication Reconciliation Pharmacy has completed the medication reconciliation. Patient was in severe pain. Reports nothing changed since last visit. Utilized discharge summary and claim history. Lasix has not been filled since June for a 90 day supply however patient did confirm she is still taking it. Louise Melissa, PharmD
[2023-02-08] MEDS: Morphine Sulfate 4 MG/ML CARTRIDGE IVPUSH (20:50)
[2023-02-08 20:52] VITALS: BP 150/87; PULSE 108; RESP 22; O2SAT 95
--- NOTE | 2023-02-08 21:02 | PC.NURSE ---
pt unable to take PO tylenol, unable to sit up d/t hip pain. pt laying flat
[2023-02-08 21:13] LABS: MANUAL DIFF FLAG NO
[2023-02-08 21:14] LABS: Basophils Percent Auto 0.2 % (0-2); Eosinophils Absolute Auto 0.1 X10*3/uL (0.0-0.4); Eosinophils Percent Auto 0.5 % (0-4); Hemoglobin 11.8 g/dl (12.0-16.0); Imm Gran Abs Auto 0.08 X10*3/uL (0.00-0.03); Imm Gran Pct Auto 0.7 % (0.0-0.4); Lymphocytes Absolute Auto 1.3 X10*3/uL (1.2-4.9); Lymphocytes Percent Auto 11.2 % (20-40); Mean Corpuscular HGB Conc 31.9 g/dl (31.0-35.0); Mean Corpuscular Hemoglobin 28.8 pg (27.0-33.0); Mean Corpuscular Volume 90.2 fL (80.0-98.0); Mean Platelet Volume 8.9 fL (9.4-12.3); Monocytes Absolute Auto 0.9 X10*3/uL (0.1-1.2); Monocytes Percent Auto 7.6 % (2-11); Neutrophils Absolute Auto 9.2 x10*3/uL (2.0-8.3); Neutrophils Percent Auto 79.8 % (45-73); Platelet Count 433 X10*3/uL (160-400); White Blood Count 11.6 X10*3/uL (4.8-10.8)
[2023-02-08 21:33] LABS: Anion Gap 14 (12-20); Blood Urea Nitrogen 12 mg/dL (9-16); Calcium 9.7 mg/dL (8.4-10.2); Carbon Dioxide 26 mmol/L (22-29); Chloride 108 mmol/L (96-108); Estimated Glomerular Filt Rate > 60; Glucose Random 128 mg/dL (60-115); Potassium 4.4 mmol/L (3.3-5.1); Sodium 144 mmol/L (135-145)
--- NOTE | 2023-02-08 21:42 | P.HPHOSP_ITS ---
History of Present Illness Date of Service: 02/08/23 Chief Complaint: Fall and right hip pain This is a 82-year-old female with pertinent history of chronic hypoxemic respiratory failure secondary to COPD, AFib on Eliquis, acn-[id number] diabetes mellitus, history of CRISTA noncompliant with CPAP, hypothyroidism, coronary artery disease, 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 Patient states as she was going to her mailbox, she lost her balance and fell. At baseline she uses a walker to ambulate but she was going to the mailbox with a cane. Did not lose consciousness prior to the fall. No jerking movement of extremities, no tongue bite. No chest pain or palpitations prior to the fall. Patient states she landed on her right hip and she has been having difficulty moving her right lower extremity and right hip pain after the fall. No fever, chills, chest discomfort, palpitations, shortness of breath, abdominal pain, changes in urinary or bowel habits. In the emergency department, imaging with subtrochanteric fracture of the right hip. Review of Systems 2 Constitutional: Constitutional: Reports no additional constitutional complaints Cardiovascular: Cardiovascular: Reports no additional cardiovascular complaints Respiratory: Respiratory: Reports no additional respiratory complaints Gastrointestinal: Gastrointestinal: Reports no additional gastrointestinal complaints Genitourinary: Genitourinary: Reports no additional female genitourinary complaints Musculoskeletal: Musculoskeletal: Reports arthralgias, Reports joint swelling and Reports limited range of motion [facility] Medical History Strong odor of stools Dysuria Pulmonary nodules Diarrhea Weakness Bradycardia Ingrowing nail Impacted cerumen of right ear Urinary incontinence Impacted cerumen of right ear Pulmonary nodule Chronic anticoagulation First degree atrioventricular block Atrial fibrillation Chronic pain syndrome 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 Low back pain Respiratory failure with hypoxia and hypercapnia Lower extremity weakness Nasal congestion Otitis externa Coronary artery disease Restrictive lung disease Diarrhea History of spinal stenosis Fibromyalgia Obesity (BMI 30-39.9) Carpal tunnel syndrome Abdominal aortic aneurysm Hypothyroid Obstructive sleep apnea Congestive heart failure Pernicious anemia Paroxysmal atrial fibrillation COPD (chronic obstructive pulmonary disease) DVT (deep venous thrombosis) Diverticulitis GERD (gastroesophageal reflux disease) HTN (hypertension) Clostridium difficile colitis CAD (coronary artery disease) Hypercholesterolemia Family History Father Hypertension CVD (cardiovascular disease) Mother Colon cancer Sister Leukemia Sister Colon cancer Son Lung cancer Colon polyps Surgical History S/P BREANN-BSO (total abdominal hysterectomy and bilateral salpingo-oophorectomy) History of arthroplasty of left shoulder Hx of cholecystectomy H/O angioplasty Hx of appendectomy H/O cardiac catheterization Social History Household Members: None Housing: Apartment Do you presently have visiting nurse or other home services: Yes Alcohol intake: never Patient Tobacco Use Status: Former Tobacco user Tobacco use type: Cigarette Years Smoked: stopped 2009 e-Cigarette/Vaping Use: Never Used Second Hand Smoke Exposure: No Advance Directives Date on File: 10/10/21 service: No Current occupational status: retired Current occupational exposures/hazards: No Cognitive needs: No Hearing needs: No Vision needs: Yes Meds Allergies Allergy/AdvReac Type Severity Reaction Status Date / Time morphine [MORPHINE] Allergy Unknown RASH Verified 02/08/23 19:19 pregabalin [From LYRICA] Allergy Unknown NAUSEA, Verified 02/08/23 19:19 felt high on drugs Active Medications: Current Medications Acetaminophen (Acetaminophen 325 Mg Tablet) 650 mg PO Q6H PRN PRN Reason: Pain, Mild (Pain Scale 1-3) Acyclovir (Acyclovir 5 % Oint 15 Gm Tube) gm TOPICAL 6XD PRN PRN Reason: genital lesions Albuterol Sulfate (Albuterol Sulfate (0.083%) 2.5 Mg/3 Ml Vial.Neb) 2.5 mg INHALE Q6H PRN PRN Reason: for wheezing Albuterol/Ipratropium (Albuterol/Iprat 2.5/0.5mg 3 Ml Ampul.Neb) 3 ml INHALE Q4-6H PRN PRN Reason: for wheezing Ascorbic Acid (Ascorbic Acid 500 Mg Tablet) 500 mg PO BID DANIEL Atorvastatin Calcium (Atorvastatin Calcium 80 Mg Tablet) 80 mg PO DAILY DANIEL Clotrimazole (Clotrimazole 1 % Cream 15 Gm Tube) 0 appl TOPICAL BID DANIEL; Protocol Cyanocobalamin (Cyanocobalamin (Vitamin B-12) 1,000 Mcg/Ml Vial) 1,000 mcg IM Q4W [facility] Dextrose (Dextrose 50 % 25 Gm/50 Ml Syringe) 25 gm IVPUSH Q15M PRN; Protocol PRN Reason: per Hypoglycemia Standing Ord. Duloxetine HCl (Duloxetine Hcl 30 Mg Capsule.Dr) 30 mg PO DAILY [facility] Ezetimibe (Ezetimibe 10 Mg Tablet) 10 mg PO DAILY [facility] Furosemide (Furosemide 40 Mg Tablet) 40 mg PO QAM DANIEL; Protocol Glucose (Glucose Gel 15 Gm Gel..Gram.) 15 gm PO Q15M PRN; Protocol PRN Reason: per Hypoglycemia Standing Ord. Insulin Human Lispro (Insulin Lispro 100 Unit/Ml 3 Ml Vial) 0 unit SUBCUT Q6H [facility]; Protocol Melatonin (Melatonin 3 Mg Tablet) 6 mg PO BEDTIME PRN PRN Reason: Insomnia Morphine Sulfate (Morphine Sulfate 4 Mg/Ml Cartridge) 4 mg IVPUSH Q4H PRN; Protocol PRN Reason: Pain, Severe (Pain Scale 7-10) Last Admin: 02/08/23 20:50 Dose: 4 mg Non-Formulary Medication (Aspirin) 81 mg PO DAILY [facility] Non-Formulary Medication (Dexlansoprazole [Dexilant]) 30 mg PO DAILY [facility] Non-Formulary Medication (Ferrous Sulfate) 325 mg PO DAILY [facility] Non-Formulary Medication (Fluticasone Propion-Salmeterol) 1 inhalation INHALE BID [facility] Ondansetron HCl (Ondansetron Hcl 4 Mg/2 Ml Vial) 4 mg IVPUSH Q8H PRN PRN Reason: Nausea and Vomiting Sodium Chloride (0.9 % Sodium Chloride Flush 3 Ml Syringe) 3 ml IVFLUSH QSHIFT [facility] Vitamin D (Cholecalciferol (Vitamin D3) 25 Mcg Tablet) 25 mcg PO DAILY [facility] Home Medications Medication Instructions Recorded Confirmed Last Taken Type aspirin 81 mg tablet 81 mg PO DAILY 12/01/19 02/08/23 02/08/23 History cholecalciferol (vitamin D3) 25 25 mcg PO DAILY 12/01/19 02/08/23 02/08/23 History mcg (1,000 unit) capsule (Vitamin D3) dicyclomine 10 mg capsule 10 - 20 mg PO QID PRN Abdominal 12/01/19 02/08/23 Unknown History Pain ferrous sulfate 325 mg (65 mg 325 mg PO DAILY 12/01/19 02/08/23 02/08/23 History iron) tablet metoprolol succinate 50 mg 50 mg PO DAILY 01/17/23 02/08/23 02/08/23 History tablet,extended release 24 hr acyclovir 5 % topical ointment 1 appl topical 6XD PRN genital 02/08/23 02/08/23 Unknown History lesions Physical Exam 2 Vital Signs and Narrative: Vital Signs: Last Vital Signs Temp 98.8 F 02/08/23 18:50 Pulse 108 H 02/08/23 20:52 Resp 22 H 02/08/23 20:52 BP 150/87 H 02/08/23 20:52 Pulse Ox 95 02/08/23 20:52 O2 Del Method Room Air 02/08/23 20:52 BMI result Body Mass Index 31.9 Elderly female lying in bed in mild distress on supplemental oxygen Neck supple, no JVD Tachycardic with regular rhythm, S1-S2 heard Decreased breath sounds at bases Abdomen soft nontender, no guarding, no rigidity Patient is awake, alert and oriented to self, place, time and person ; no focal motor deficit Extremity: Limited right lower extremity movement due to pain Psych: Normal mood No pedal edema Results Labs 02/08/23 21:09 02/08/23 21:09 Labs: Laboratory Results - last 24 hr 02/08/23 21:09 MCV 90.2 MCH 28.8 MCHC 31.9 RDW 13.0 Plt Count 433 H D MPV 8.9 L Immature Gran % (Auto) 0.7 H Neut % (Auto) 79.8 H Lymph % (Auto) 11.2 L Cocke % (Auto) 7.6 Eos % (Auto) 0.5 Baso % (Auto) 0.2 Lymph # (Auto) 1.3 Cocke # (Auto) 0.9 Eos # (Auto) 0.1 Baso # (Auto) 0.0 Abs Immat Gran (auto) 0.08 H Absolute Neuts (auto) 9.2 H Absolute Nucleated RBC 0.000 Nucleated RBC % (auto) 0.0 Anion Gap 14 Estim Creat Clear Calc 51.0 Estimated GFR > 60 Random Glucose 128 H Calcium 9.7 Imaging Radiologist's Impressions: Impressions Cervical Spine CT 02/08/23 19:25 IMPRESSION: - No acute intracranial abnormality. There is global cerebral volume loss, there is chronic microangiopathy, and there is atherosclerotic calcification throughout the intracranial arterial vasculature. - No acute osseous abnormality within the cervical spine. Cervical spondylosis. Stable chronic reversal of the cervical lordosis. Head CT 02/08/23 19:25 IMPRESSION: - No acute intracranial abnormality. There is global cerebral volume loss, there is chronic microangiopathy, and there is atherosclerotic calcification throughout the intracranial arterial vasculature. - No acute osseous abnormality within the cervical spine. Cervical spondylosis. Stable chronic reversal of the cervical lordosis. Chest X-Ray 02/08/23 19:40 IMPRESSION: 1. Comminuted subtrochanteric fracture right hip with no dislocation. Rest of the pelvis is normal. 2. Moderate cardiomegaly. No acute process seen in the chest. Femur X-Ray 02/08/23 19:40 IMPRESSION: 1. Comminuted subtrochanteric fracture right hip with no dislocation. Rest of the pelvis is normal. 2. Moderate cardiomegaly. No acute process seen in the chest. Pelvis X-Ray 02/08/23 19:40 IMPRESSION: 1. Comminuted subtrochanteric fracture right hip with no dislocation. Rest of the pelvis is normal. 2. Moderate cardiomegaly. No acute process seen in the chest. Assessment and Plan (1) Closed fracture of right hip: Status: Acute Plan This is a 82-year-old female with pertinent history of chronic hypoxemic respiratory failure secondary to COPD, AFib on Eliquis, [id number] diabetes mellitus, history of CRISTA noncompliant with CPAP, hypothyroidism, coronary artery disease, 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 #. Acute right hip subtrochanteric fracture due to mechanical fall: Will admit patient and initiate IV opioids p.r.n. for pain control. Orthopedic surgery consulted from the ER, appreciate assistance. Hold Eliquis and keep patient NPO. #. Preoperative risk: RCRI score 2. Will order BNP #. Chronic hypoxemic respiratory failure due to COPD: On home baseline oxygen. No exacerbation during admission. Continue home inhalers #. AFib: On beta-becca. Hold Eliquis as above #. Coronary artery disease: On antiplatelet agent and high-intensity statin #. Congestive heart failure with combined systolic and diastolic dysfunction: On beta-becca and diuretics. No decompensation during admission. Not on LUCIANO- inhibitor or ARB #. Dtf-esvnvuw-wuwgfaegr diabetes mellitus: Initiating Accu-Cheks with sliding scale insulin #. Hypothyroidism: On Synthroid #. CRISTA: Refused CPAP at bedtime DVT prophylaxis: Mechanical Full code Admit as inpatient and will require two night minimum hospital stay for treatment of right hip fracture (as above), which is not possible in a lesser acute setting. Specialist consult pending Quality Stroke Does the patient have a stroke diagnosis?: No VTE Prior VTE?: No VTE Risk Level:: Medical - moderate - high VTE Device Contraindication: N/A - Device Ordered VTE Drug Contraindication: Treatment Not Indicated
[2023-02-08] MEDS: HYDROmorphone HCl 1 MG/ML SYRINGE IVPUSH (21:44)
--- NOTE | 2023-02-08 22:10 | PC.NURSE ---
family left bedside for the night. pt resting more comfortably at this time. after PRN dilaudid. multiple doses of morphine had no effect per pt
--- NOTE | 2023-02-08 22:41 | PC.NURSE ---
pt able to rest comfortably with eyes closed, lab in room now for blood draw
[2023-02-08 23:23] LABS: B Type Natriuretic Peptide 710 pg/mL (<100)
[2023-02-08 23:35] VITALS: BMI 36.5
[2023-02-08 23:39] VITALS: BP 182/98; PULSE 110; RESP 18; TEMP 36.4; O2SAT 96
[2023-02-09] MEDS: 0.9 % Sodium Chloride Flush 3 ML SYRINGE IVFLUSH ×4 (00:11→21:17)
[2023-02-09] MEDS: HYDROmorphone HCl 1 MG/ML SYRINGE IVPUSH ×5 (01:19→21:17)
[2023-02-09 03:29] VITALS: BP 177/89; PULSE 113; RESP 20; TEMP 35.7; O2SAT 97
[2023-02-09 03:37] LABS: Glucose, Whole Blood 125 mg/dL (60-115)
[2023-02-09 05:40] LABS: MANUAL DIFF FLAG NO
[2023-02-09 05:46] LABS: Basophils Percent Auto 0.2 % (0-2); Eosinophils Percent Auto 0.2 % (0-4); Hematocrit 40.6 % (37.0-47.0); Hemoglobin 12.4 g/dl (12.0-16.0); Imm Gran Abs Auto 0.05 X10*3/uL (0.00-0.03); Imm Gran Pct Auto 0.6 % (0.0-0.4); Lymphocytes Absolute Auto 2.1 X10*3/uL (1.2-4.9); Lymphocytes Percent Auto 24.3 % (20-40); Mean Corpuscular HGB Conc 30.5 g/dl (31.0-35.0); Mean Corpuscular Hemoglobin 28.6 pg (27.0-33.0); Mean Corpuscular Volume 93.8 fL (80.0-98.0); Mean Platelet Volume 9.2 fL (9.4-12.3); Monocytes Absolute Auto 0.8 X10*3/uL (0.1-1.2); Monocytes Percent Auto 9.2 % (2-11); Neutrophils Absolute Auto 5.8 x10*3/uL (2.0-8.3); Neutrophils Percent Auto 65.5 % (45-73); Platelet Count 476 X10*3/uL (160-400); Red Blood Count 4.33 X10*6/uL (4.20-5.50); Red Cell Distribution Width 13.1 % (11.0-16.0); White Blood Count 8.8 X10*3/uL (4.8-10.8)
[2023-02-09 06:00] LABS: Anion Gap 15 (12-20); Blood Urea Nitrogen 12 mg/dL (9-16); Carbon Dioxide 28 mmol/L (22-29); Chloride 106 mmol/L (96-108); Creatinine Clr Calc Pharmacy 49.6; Estimated Glomerular Filt Rate 56; Glucose Random 130 mg/dL (60-115); Potassium 4.4 mmol/L (3.3-5.1); Sodium 145 mmol/L (135-145)
[2023-02-09 07:12] VITALS: BP 134/81; PULSE 100; RESP 22; TEMP 36.2; O2SAT 96
[2023-02-09 07:56] LABS: Glucose, Whole Blood 124 mg/dL (60-115)
--- NOTE | 2023-02-09 08:44 | P.PNIM_ITS ---
Subjective Subjective Date of Service: 02/09/23 Interval History: right hip pain Physical Exam 2 Vital Signs: Vital Signs: Last Vital Signs Temp 97.2 F 02/09/23 07:12 Pulse 100 02/09/23 07:12 Resp 22 H 02/09/23 07:12 BP 134/81 02/09/23 07:12 Pulse Ox 96 02/09/23 07:12 O2 Del Method Nasal Cannula 02/09/23 07:12 O2 Flow Rate 2 02/09/23 07:12 BMI result Body Mass Index 36.5 General: AO X 3, in pain Resp: CTA bilateral, no accessory muscles used CVS: S1,S2,RRR GI: soft, non tender, non distended Neuro: motor grossly intact, alert Psych: appropriate affect, appropriate insight Objective Data Active Medications Acetaminophen (Acetaminophen 325 Mg Tablet) 650 mg PO Q6H PRN PRN Reason: Pain, Mild (Pain Scale 1-3) Acyclovir (Acyclovir 5 % Oint 15 Gm Tube) 1 gm TOPICAL 6XD PRN PRN Reason: genital lesions Albuterol Sulfate (Albuterol Sulfate (0.083%) 2.5 Mg/3 Ml Vial.Neb) 2.5 mg INHALE Q6H PRN PRN Reason: for wheezing Albuterol/Ipratropium (Albuterol/Iprat 2.5/0.5mg 3 Ml Ampul.Neb) 3 ml INHALE Q4H PRN PRN Reason: for wheezing Ascorbic Acid (Ascorbic Acid 500 Mg Tablet) 500 mg PO BID [facility] Aspirin (Aspirin 81 Mg Tab.Chew) 81 mg PO DAILY [facility] Atorvastatin Calcium (Atorvastatin Calcium 80 Mg Tablet) 80 mg PO DAILY [facility] Clotrimazole (Clotrimazole 1 % Cream 15 Gm Tube) 1 appl TOPICAL BID [facility]; Protocol Cyanocobalamin (Cyanocobalamin (Vitamin B-12) 1,000 Mcg/Ml Vial) 1,000 mcg IM Q28D [facility] Dextrose (Dextrose 50 % 25 Gm/50 Ml Syringe) 25 gm IVPUSH Q15M PRN; Protocol PRN Reason: per Hypoglycemia Standing Ord. Duloxetine HCl (Duloxetine Hcl 30 Mg Capsule.) 30 mg PO DAILY [facility] Ezetimibe (Ezetimibe 10 Mg Tablet) 10 mg PO DAILY [facility] Ferrous Sulfate (Ferrous Sulfate 324 Mg Tablet.) 324 mg PO DAILY [facility] Fluticasone/Vilanterol (Fluticasone/Vilanterol 200/25 Blst.W.Dev) 1 puff INHALE RDAILY [facility] Furosemide (Furosemide 40 Mg Tablet) 40 mg PO DAILY [facility]; Protocol Glucose (Glucose Gel 15 Gm Gel..Gram.) 15 gm PO Q15M PRN; Protocol PRN Reason: per Hypoglycemia Standing Ord. Hydromorphone HCl (Hydromorphone Hcl 1 Mg/Ml Syringe) 1 mg IVPUSH Q4H PRN; Protocol PRN Reason: Pain, Severe (Pain Scale 7-10) Last Admin: 02/09/23 05:16 Dose: 1 mg Documented By: MAXIMILIAN Insulin Human Lispro (Insulin Lispro 100 Unit/Ml 3 Ml Vial) 0 unit SUBCUT Q6H [facility]; Protocol Last Admin: 02/09/23 03:40 Dose: Not Given Documented By: MAXIMILIAN Non-Admin Reason: No Insulin Coverage Levothyroxine Sodium (Levothyroxine Sodium 100 Mcg Tablet) 100 mcg PO DAILY@0600 [facility] Last Admin: 02/09/23 05:16 Dose: Not Given Documented By: MAXIMILIAN Non-Admin Reason: NPO Melatonin (Melatonin 3 Mg Tablet) 6 mg PO BEDTIME PRN PRN Reason: Insomnia Metoprolol Succinate (Metoprolol Succinate Er 50 Mg Tab.Er.24h) 50 mg PO DAILY [facility]; Protocol Omeprazole (Omeprazole 20 Mg Capsule.Dr) 20 mg PO DAILY [facility] Ondansetron HCl (Ondansetron Hcl 4 Mg/2 Ml Vial) 4 mg IVPUSH Q8H PRN PRN Reason: Nausea and Vomiting Sodium Chloride (0.9 % Sodium Chloride Flush 3 Ml Syringe) 3 ml IVFLUSH QSHIFT [facility] Last Admin: 02/09/23 00:11 Dose: 3 ml Documented By: MAXIMILIAN Thiamine HCl (Thiamine Hcl 100 Mg Tablet) 100 mg PO DAILY [facility] Tiotropium [place] (Tiotropium [place] 2.5 Mcg 1 Puff/2.5 Mcg Mist.Inhal) 2 puff INHALE RDAILY [facility] Vitamin D (Cholecalciferol (Vitamin D3) 25 Mcg Tablet) 25 mcg PO DAILY [facility] Labs 02/09/23 05:23 02/09/23 05:23 Labs: Laboratory Results - last 24 hr 02/08/23 02/08/23 02/09/23 21:09 22:42 03:32 MCV 90.2 MCH 28.8 MCHC 31.9 RDW 13.0 Plt Count 433 H D MPV 8.9 L Immature Gran % (Auto) 0.7 H Neut % (Auto) 79.8 H Lymph % (Auto) 11.2 L Winn % (Auto) 7.6 Eos % (Auto) 0.5 Baso % (Auto) 0.2 Lymph # (Auto) 1.3 Winn # (Auto) 0.9 Eos # (Auto) 0.1 Baso # (Auto) 0.0 Abs Immat Gran (auto) 0.08 H Absolute Neuts (auto) 9.2 H Absolute Nucleated RBC 0.000 Nucleated RBC % (auto) 0.0 Anion Gap 14 Estim Creat Clear Calc 51.0 Estimated GFR > 60 POC Glucose 125 H Random Glucose 128 H Calcium 9.7 B-Natriuretic Peptide 710 H 02/09/23 02/09/23 05:23 07:14 MCV 93.8 MCH 28.6 MCHC 30.5 L RDW 13.1 Plt Count 476 H MPV 9.2 L Immature Gran % (Auto) 0.6 H Neut % (Auto) 65.5 Lymph % (Auto) 24.3 Winn % (Auto) 9.2 Eos % (Auto) 0.2 Baso % (Auto) 0.2 Lymph # (Auto) 2.1 Winn # (Auto) 0.8 Eos # (Auto) 0.0 Baso # (Auto) 0.0 Abs Immat Gran (auto) 0.05 H Absolute Neuts (auto) 5.8 Absolute Nucleated RBC 0.000 Nucleated RBC % (auto) 0.0 Anion Gap 15 Estim Creat Clear Calc 49.6 Estimated GFR 56 POC Glucose 124 H Random Glucose 130 H Calcium 10.0 B-Natriuretic Peptide Assessment and Plan (1) Closed fracture of right hip: Status: Acute Plan 82F PMH chronic systolic and diastolic CHF, chronic hypoxic respiratory failure on 2 L home O2 due to COPD, paroxysmal atrial fibrillation, diabetes, CRISTA, hypothyroid, coronary disease presented with mechanical fall complicated by right hip fracture Right hip fracture status post mechanical fall Last dose of Eliquis 02/07/2023 in the evening Follow-up ortho Patient moderate risk for moderate risk surgery, benefits of surgery outweigh risks Chronic hypoxic respiratory failure secondary to COPD Continue home O2 Paroxysmal atrial fibrillation Holding Eliquis for surgery Continue metoprolol Coronary disease Continue aspirin and statin Chronic systolic and diastolic CHF Continue metoprolol, Lasix Diabetes Continue insulin Hypothyroid Continue Synthroid CRISTA Refuses CPAP Obesity Weight loss recommended DVT prophylaxis-mechanical for now, restart Eliquis after surgery Full code reason for continued hospitalization: Plan for inpatient surgery Quality Stroke Does the patient have a stroke diagnosis?: No VTE Prior VTE?: No VTE Risk Level:: Medical - moderate - high VTE Device Contraindication: N/A - Device Ordered VTE Drug Contraindication: Treatment Not Indicated
[2023-02-09] MEDS: ondansetron HCL 4 MG/2 ML VIAL IVPUSH (08:51)
[2023-02-09] MEDS: Tiotropium Bromide 2.5 mcg 1 PUFF/2.5 MCG MIST.INHAL 2 PUFF INHALE (11:12)
[2023-02-09 11:19] VITALS: PULSE 95; RESP 18; O2SAT 96
[2023-02-09] MEDS: Fluticasone/Vilanterol 200/25 BLST.W.DEV 1 PUFF INHALE (11:22)
[2023-02-09 11:26] LABS: Glucose, Whole Blood 109 mg/dL (60-115)
--- NOTE | 2023-02-09 12:10 | PM.CNOR ---
History of Present Illness HPI Consult date: 02/09/23 Chief complaint: Fall and hip pain Narrative: 82 yo female admitted to the medical service for a fall resulting in right intertrochanteric fracture of the femur. She has a PMH afib on Eliquis. COPD on home Oxygen, [id number] diabetes mellitus, history of CRISTA noncompliant with CPAP, hypothyroidism, coronary artery disease, congestive heart failure with combined systolic and diastolic dysfunction. She lives alone, ambulates with a walker and cane. She was ambulating to the mailbox with a cane when she lost her balance and fell. She was transported to the ED, xrays obtained and admitted to medicine. Orthopedics was consulted for surgical planning. 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 Low back pain Respiratory failure with hypoxia and hypercapnia Lower extremity weakness Nasal congestion Otitis externa Coronary artery disease Restrictive lung disease Diarrhea History of spinal stenosis Fibromyalgia Obesity (BMI 30-39.9) Carpal tunnel syndrome Abdominal aortic aneurysm Hypothyroid Obstructive sleep apnea Congestive heart failure Pernicious anemia Paroxysmal atrial fibrillation COPD (chronic obstructive pulmonary disease) DVT (deep venous thrombosis) Diverticulitis GERD (gastroesophageal reflux disease) HTN (hypertension) Clostridium difficile colitis CAD (coronary artery disease) Hypercholesterolemia Family History Family History Father Hypertension CVD (cardiovascular disease) Mother Colon cancer Sister Leukemia Sister Colon cancer Son Lung cancer Colon polyps Surgical History Surgical History S/P BREANN-BSO (total abdominal hysterectomy and bilateral salpingo-oophorectomy) History of arthroplasty of left shoulder Hx of cholecystectomy H/O angioplasty Hx of appendectomy H/O cardiac catheterization Social History Social History Household Members: None Housing: Apartment Do you presently have visiting nurse or other home services: Yes ([facility]UL) Alcohol intake: never Patient Tobacco Use Status: Former Tobacco user Tobacco use type: Cigarette Years Smoked: stopped 2009 e-Cigarette/Vaping Use: Never Used Second Hand Smoke Exposure: No Advance Directives Date on File: 10/10/21 service: No Current occupational status: retired Current occupational exposures/hazards: No Cognitive needs: No Hearing needs: No Vision needs: Yes Meds Allergies Allergy/AdvReac Type Severity Reaction Status Date / Time morphine [MORPHINE] Allergy Unknown RASH Verified 02/08/23 19:19 pregabalin [From LYRICA] Allergy Unknown NAUSEA, Verified 02/08/23 19:19 felt high on drugs Active Medications: Current Medications Acetaminophen (Acetaminophen 325 Mg Tablet) 650 mg PO Q6H PRN PRN Reason: Pain, Mild (Pain Scale 1-3) Acyclovir (Acyclovir 5 % Oint 15 Gm Tube) 1 gm TOPICAL 6XD PRN PRN Reason: genital lesions Albuterol Sulfate (Albuterol Sulfate (0.083%) 2.5 Mg/3 Ml Vial.Neb) 2.5 mg INHALE Q6H PRN PRN Reason: for wheezing Albuterol/Ipratropium (Albuterol/Iprat 2.5/0.5mg 3 Ml Ampul.Neb) 3 ml INHALE Q4H PRN PRN Reason: for wheezing Ascorbic Acid (Ascorbic Acid 500 Mg Tablet) 500 mg PO BID [facility] Last Admin: 02/09/23 09:48 Dose: Not Given Aspirin (Aspirin 81 Mg Tab.Chew) 81 mg PO DAILY [facility] Last Admin: 02/09/23 09:48 Dose: Not Given Atorvastatin Calcium (Atorvastatin Calcium 80 Mg Tablet) 80 mg PO DAILY [facility] Last Admin: 02/09/23 09:48 Dose: Not Given Clotrimazole (Clotrimazole 1 % Cream 15 Gm Tube) 1 appl TOPICAL BID [facility]; Protocol Last Admin: 02/09/23 09:49 Dose: Not Given Cyanocobalamin (Cyanocobalamin (Vitamin B-12) 1,000 Mcg/Ml Vial) 1,000 mcg IM Q28D [facility] Dextrose (Dextrose 50 % 25 Gm/50 Ml Syringe) 25 gm IVPUSH Q15M PRN; Protocol PRN Reason: per Hypoglycemia Standing Ord. Duloxetine HCl (Duloxetine Hcl 30 Mg Capsule.) 30 mg PO DAILY [facility] Last Admin: 02/09/23 09:49 Dose: Not Given Ezetimibe (Ezetimibe 10 Mg Tablet) 10 mg PO DAILY [facility] Last Admin: 02/09/23 09:49 Dose: Not Given Ferrous Sulfate (Ferrous Sulfate 324 Mg Tablet.) 324 mg PO DAILY [facility] Last Admin: 02/09/23 09:49 Dose: Not Given Fluticasone/Vilanterol (Fluticasone/Vilanterol 200/25 Blst.W.Dev) 1 puff INHALE RDAILY [facility] Last Admin: 02/09/23 11:22 Dose: 1 puff Furosemide (Furosemide 40 Mg Tablet) 40 mg PO DAILY [facility]; Protocol Last Admin: 02/09/23 09:49 Dose: Not Given Glucose (Glucose Gel 15 Gm Gel..Gram.) 15 gm PO Q15M PRN; Protocol PRN Reason: per Hypoglycemia Standing Ord. Hydromorphone HCl (Hydromorphone Hcl 1 Mg/Ml Syringe) 1 mg IVPUSH Q4H PRN; Protocol PRN Reason: Pain, Severe (Pain Scale 7-10) Last Admin: 02/09/23 09:35 Dose: 1 mg Insulin Human Lispro (Insulin Lispro 100 Unit/Ml 3 Ml Vial) 0 unit SUBCUT QIDACHS [facility]; Protocol Last Admin: 02/09/23 11:39 Dose: Not Given Levothyroxine Sodium (Levothyroxine Sodium 100 Mcg Tablet) 100 mcg PO DAILY@0600 [facility] Last Admin: 02/09/23 05:16 Dose: Not Given Melatonin (Melatonin 3 Mg Tablet) 6 mg PO BEDTIME PRN PRN Reason: Insomnia Metoprolol Succinate (Metoprolol Succinate Er 50 Mg Tab.Er.24h) 50 mg PO DAILY [facility]; Protocol Last Admin: 02/09/23 09:49 Dose: Not Given Omeprazole (Omeprazole 20 Mg Capsule.) 20 mg PO DAILY [facility] Last Admin: 02/09/23 09:49 Dose: Not Given Ondansetron HCl (Ondansetron Hcl 4 Mg/2 Ml Vial) 4 mg IVPUSH Q8H PRN PRN Reason: Nausea and Vomiting Last Admin: 02/09/23 08:51 Dose: 4 mg Sodium Chloride (0.9 % Sodium Chloride Flush 3 Ml Syringe) 3 ml IVFLUSH QSHIFT [facility] Last Admin: 02/09/23 09:38 Dose: 3 ml Thiamine HCl (Thiamine Hcl 100 Mg Tablet) 100 mg PO DAILY [facility] Last Admin: 02/09/23 09:49 Dose: Not Given Tiotropium [place] (Tiotropium [place] 2.5 Mcg 1 Puff/2.5 Mcg Mist.Inhal) 2 puff INHALE RDAILY [facility] Last Admin: 02/09/23 11:12 Dose: 2 puff Vitamin D (Cholecalciferol (Vitamin D3) 25 Mcg Tablet) 25 mcg PO DAILY [facility] Last Admin: 02/09/23 09:48 Dose: Not Given Home Medications Medication Instructions Recorded Confirmed Last Taken Type aspirin 81 mg tablet 81 mg PO DAILY 12/01/19 02/08/23 02/08/23 History cholecalciferol (vitamin D3) 25 25 mcg PO DAILY 12/01/19 02/08/23 02/08/23 History mcg (1,000 unit) capsule (Vitamin D3) dicyclomine 10 mg capsule 10 - 20 mg PO QID PRN Abdominal 12/01/19 02/08/23 Unknown History Pain ferrous sulfate 325 mg (65 mg 325 mg PO DAILY 12/01/19 02/08/23 02/08/23 History iron) tablet metoprolol succinate 50 mg 50 mg PO DAILY 01/17/23 02/08/23 02/08/23 History tablet,extended release 24 hr acyclovir 5 % topical ointment 1 appl topical 6XD PRN genital 02/08/23 02/08/23 Unknown History lesions Physical Exam Vital Signs: Vital Signs: Last Vital Signs Temp 97.2 F 02/09/23 07:12 Pulse 95 02/09/23 11:19 Resp 18 02/09/23 11:19 BP 134/81 02/09/23 07:12 Pulse Ox 96 02/09/23 07:12 O2 Del Method Nasal Cannula 02/09/23 07:12 O2 Flow Rate 2 02/09/23 07:12 BMI result Body Mass Index 36.5 Const: General: cooperative, healthy appearing, comfortable, no acute distress, well developed and alert Orientation/consciousness: patient oriented x3 HEENT: Head: Yes normal to inspection, Yes normocephalic and Yes atraumatic Eyes: General: appearance normal, both eyes and all related structures Neck: Neck: Yes normal visual inspection and Yes no lymphadenopathy Resp: Effort & Inspection: normal respiratory effort and able to speak in complete sentences Cardio: Rate: regular rate Peripheral pulses: Peripheral pulses 2+ throughout GI: Inspection: Yes normal to inspection Palpation (GI): Soft to palpation Skin: General skin exam: no rashes or lesions noted Neuro: General: patient oriented x3 Extrem: Other: Right hip skin intact, tenderness over the greater troch region with leg shortened and ER. NVi. Psych: Appearance: grossly normal Mental Status: mental status grossly normal Results Labs 02/09/23 05:23 02/09/23 05:23 Labs: Abnormal lab results 02/08/23 02/08/23 02/09/23 Range/Units 21:09 22:42 03:32 WBC 11.6 H (4.8-10.8) X10*3/uL RBC 4.10 L (4.20-5.50) X10*6/uL Hgb 11.8 L (12.0-16.0) g/dl MCHC (31.0-35.0) g/dl Plt Count 433 H D (160-400) X10*3/uL MPV 8.9 L (9.4-12.3) fL Immature Gran % (Auto) 0.7 H (0.0-0.4) % Neut % (Auto) 79.8 H (45-73) % Lymph % (Auto) 11.2 L (20-40) % Abs Immat Gran (auto) 0.08 H (0.00-0.03) X10*3/uL Absolute Neuts (auto) 9.2 H (2.0-8.3) x10*3/uL POC Glucose 125 H (60-115) mg/dL Random Glucose 128 H (60-115) mg/dL B-Natriuretic Peptide 710 H (<100) pg/mL 02/09/23 02/09/23 Range/Units 05:23 07:14 WBC (4.8-10.8) X10*3/uL RBC (4.20-5.50) X10*6/uL Hgb (12.0-16.0) g/dl MCHC 30.5 L (31.0-35.0) g/dl Plt Count 476 H (160-400) X10*3/uL MPV 9.2 L (9.4-12.3) fL Immature Gran % (Auto) 0.6 H (0.0-0.4) % Neut % (Auto) (45-73) % Lymph % (Auto) (20-40) % Abs Immat Gran (auto) 0.05 H (0.00-0.03) X10*3/uL Absolute Neuts (auto) (2.0-8.3) x10*3/uL POC Glucose 124 H (60-115) mg/dL Random Glucose 130 H (60-115) mg/dL B-Natriuretic Peptide (<100) pg/mL H & H 02/08/23 02/09/23 Range/Units 21:09 05:23 Hgb 11.8 L 12.4 (12.0-16.0) g/dl Hct 37.0 40.6 (37.0-47.0) % All other labs normal. Assessment and Plan (1) Closed fracture of right hip: Qualifiers: Encounter type: initial encounter Qualified Code(s): S72.001A - Fracture of unspecified part of neck of right femur, initial encounter for closed fracture Status: Acute Plan I discussed the case with Dr Covarrubias and explained the extent of the injury to the patient and options available which include surgical intervention. I explained the procedure in detail along with the length of recovery and rehab course. I explained the risk, benefits and alternatives. Risk including, but not limited to infection, blood clots, bleeding, non union or malunion and nerve/tissue damage to surrounding areas. I answered all their questions and with their understanding they have consented to move forward with Operative Fixation of of the right hip. The patient will be T&S, med clearance obtained and NPO after midnight. Procedures Date of Service Date of Service: 02/09/23
[2023-02-09] MEDS: Acetaminophen 1,000 MG/100 ML PIGGYBACK 400 MG IV ×2 (12:52→17:49)
--- NOTE | 2023-02-09 13:27 | MHC.CM.PN ---
pt was living alone with servies and home 02 prior to admission hcp does not remember name of agency pt to have surgery tomorrow for hip repair will likely need str when ready
[2023-02-09 15:29] VITALS: BP 133/64; PULSE 98; RESP 24; TEMP 36.3; O2SAT 94
[2023-02-09 16:31] LABS: Glucose, Whole Blood 105 mg/dL (60-115)
[2023-02-09 19:58] VITALS: BP 134/63; PULSE 92; RESP 18; TEMP 36.1; O2SAT 95
[2023-02-09 21:21] LABS: Glucose, Whole Blood 106 mg/dL (60-115)
[2023-02-09] MEDS: Acetaminophen 1,000 MG/100 ML PIGGYBACK 40 MG IV (23:51)
[2023-02-10] VITALS (13 sets, daily range): BP systolic 113–147; BP diastolic 56–68; PULSE 86–111; RESP 14–18; TEMP 36–36.4; O2SAT 91–97
[2023-02-10] MEDS: HYDROmorphone HCl 1 MG/ML SYRINGE IVPUSH ×3 (05:02→20:01)
[2023-02-10 05:29] LABS: Hematocrit 36.8 % (37.0-47.0); Hemoglobin 11.4 g/dl (12.0-16.0); Mean Corpuscular Hemoglobin 28.7 pg (27.0-33.0); Mean Corpuscular Volume 92.7 fL (80.0-98.0); Mean Platelet Volume 8.9 fL (9.4-12.3); Platelet Count 389 X10*3/uL (160-400); Red Blood Count 3.97 X10*6/uL (4.20-5.50); Red Cell Distribution Width 13.2 % (11.0-16.0); White Blood Count 7.5 X10*3/uL (4.8-10.8)
[2023-02-10 05:42] LABS: Anion Gap 14 (12-20); Blood Urea Nitrogen 19 mg/dL (9-16); Calcium 9.6 mg/dL (8.4-10.2); Carbon Dioxide 27 mmol/L (22-29); Chloride 104 mmol/L (96-108); Creatinine Clr Calc Pharmacy 40.9; Estimated Glomerular Filt Rate 45; Glucose Fasting 99 mg/dL (60-99); Potassium 4.1 mmol/L (3.3-5.1); Sodium 141 mmol/L (135-145)
[2023-02-10] MEDS: Acetaminophen 1,000 MG/100 ML PIGGYBACK 400 MG IV (06:05)
--- NOTE | 2023-02-10 06:19 | PC.NURSE ---
0030 Pt put out 75cc on day shift and less than 100 cc evening shift not taking much po and will be npo after mn notified ? IV fluids.Said to defer fluids.
--- NOTE | 2023-02-10 06:56 | HO.PM.IMPN ---
Subjective Subjective Date of Service: 02/10/23 Interval History: right hip pain Physical Exam Vital Signs: Vital Signs: Last Vital Signs Temp 96.8 F 02/10/23 04:00 Pulse 86 02/10/23 04:00 Resp 16 02/10/23 04:00 BP 140/65 H 02/10/23 04:00 Pulse Ox 95 02/10/23 04:00 O2 Del Method Nasal Cannula 02/10/23 04:00 O2 Flow Rate 2 02/10/23 04:00 BMI result Body Mass Index 36.5 Const: General: cooperative, healthy appearing, comfortable, no acute distress, well developed and alert Orientation/consciousness: patient oriented x3 HEENT: Head: Yes normal to inspection, Yes normocephalic and Yes atraumatic Eyes: General: appearance normal, both eyes and all related structures Neck: Neck: Yes normal visual inspection and Yes no lymphadenopathy Resp: Effort & Inspection: normal respiratory effort and able to speak in complete sentences Cardio: Rate: regular rate Peripheral pulses: Peripheral pulses 2+ throughout GI: Inspection: Yes normal to inspection Palpation (GI): Soft to palpation Skin: General skin exam: no rashes or lesions noted Neuro: General: patient oriented x3 Extrem: Other: Right hip skin intact, tenderness over the greater troch region with leg shortened and ER. NVi. Psych: Appearance: grossly normal Mental Status: mental status grossly normal Objective Data Active Medications Acetaminophen (Acetaminophen 325 Mg Tablet) 650 mg PO Q6H PRN PRN Reason: Pain, Mild (Pain Scale 1-3) Acyclovir (Acyclovir 5 % Oint 15 Gm Tube) 1 gm TOPICAL 6XD PRN PRN Reason: genital lesions Albuterol Sulfate (Albuterol Sulfate (0.083%) 2.5 Mg/3 Ml Vial.Neb) 2.5 mg INHALE Q6H PRN PRN Reason: for wheezing Albuterol/Ipratropium (Albuterol/Iprat 2.5/0.5mg 3 Ml Ampul.Neb) 3 ml INHALE Q4H PRN PRN Reason: for wheezing Ascorbic Acid (Ascorbic Acid 500 Mg Tablet) 500 mg PO BID [facility] Last Admin: 02/09/23 21:24 Dose: Not Given Documented By: MARY Non-Admin Reason: Patient Refused Aspirin (Aspirin 81 Mg Tab.Chew) 81 mg PO DAILY [facility] Last Admin: 02/09/23 09:48 Dose: Not Given Documented By: BERTRAND Non-Admin Reason: pt unable to tolerate Atorvastatin Calcium (Atorvastatin Calcium 80 Mg Tablet) 80 mg PO DAILY [facility] Last Admin: 02/09/23 09:48 Dose: Not Given Documented By: BERTRAND Non-Admin Reason: pt unable to tolerate Clotrimazole (Clotrimazole 1 % Cream 15 Gm Tube) 1 appl TOPICAL BID [facility]; Protocol Last Admin: 02/09/23 21:25 Dose: Not Given Documented By: MARY Non-Admin Reason: Med Not Available Cyanocobalamin (Cyanocobalamin (Vitamin B-12) 1,000 Mcg/Ml Vial) 1,000 mcg IM Q28D [facility] Dextrose (Dextrose 50 % 25 Gm/50 Ml Syringe) 25 gm IVPUSH Q15M PRN; Protocol PRN Reason: per Hypoglycemia Standing Ord. Duloxetine HCl (Duloxetine Hcl 30 Mg Capsule.) 30 mg PO DAILY [facility] Last Admin: 02/09/23 09:49 Dose: Not Given Documented By: BERTRAND Non-Admin Reason: pt unable to tolerate Ezetimibe (Ezetimibe 10 Mg Tablet) 10 mg PO DAILY [facility] Last Admin: 02/09/23 09:49 Dose: Not Given Documented By: BERTRAND Non-Admin Reason: pt unable to tolerate Ferrous Sulfate (Ferrous Sulfate 324 Mg Tablet.) 324 mg PO DAILY [facility] Last Admin: 02/09/23 09:49 Dose: Not Given Documented By: BERTRAND Non-Admin Reason: pt unable to tolerate Fluticasone/Vilanterol (Fluticasone/Vilanterol 200/25 Blst.W.Dev) 1 puff INHALE RDAILY [facility] Last Admin: 02/09/23 11:22 Dose: 1 puff Documented By: RICHARD Furosemide (Furosemide 40 Mg Tablet) 40 mg PO DAILY [facility]; Protocol Last Admin: 02/09/23 09:49 Dose: Not Given Documented By: BERTRAND Non-Admin Reason: pt unable to tolerate Glucose (Glucose Gel 15 Gm Gel..Gram.) 15 gm PO Q15M PRN; Protocol PRN Reason: per Hypoglycemia Standing Ord. Hydromorphone HCl (Hydromorphone Hcl 1 Mg/Ml Syringe) 1 mg IVPUSH Q4H PRN; Protocol PRN Reason: Pain, Severe (Pain Scale 7-10) Last Admin: 02/10/23 05:02 Dose: 1 mg Documented By: MARY Cefazolin Sodium/Dextrose (Ancef) 2 gm in 50 mls @ 100 mls/hr IV PREOP ONE Stop: 02/10/23 08:29 Promethazine HCl 12.5 mg/ (Sodium Chloride) 50.5 mls @ 202 mls/hr IV Q4H PRN PRN Reason: Nausea and Vomiting Insulin Human Lispro (Insulin Lispro 100 Unit/Ml 3 Ml Vial) 0 unit SUBCUT QIDACHS [facility]; Protocol Last Admin: 02/09/23 21:25 Dose: Not Given Documented By: MARY Non-Admin Reason: No Insulin Coverage Levothyroxine Sodium (Levothyroxine Sodium 100 Mcg Tablet) 100 mcg PO DAILY@0600 [facility] Last Admin: 02/10/23 05:13 Dose: Not Given Documented By: MARY Non-Admin Reason: NPO Melatonin (Melatonin 3 Mg Tablet) 6 mg PO BEDTIME PRN PRN Reason: Insomnia Metoprolol Succinate (Metoprolol Succinate Er 50 Mg Tab.Er.24h) 50 mg PO DAILY [facility]; Protocol Last Admin: 02/09/23 09:49 Dose: Not Given Documented By: BERTRAND Non-Admin Reason: pt unable to tolerate Omeprazole (Omeprazole 20 Mg Capsule.Dr) 20 mg PO DAILY [facility] Last Admin: 02/09/23 09:49 Dose: Not Given Documented By: BERTRAND Non-Admin Reason: pt unable to tolerate Ondansetron HCl (Ondansetron Hcl 4 Mg/2 Ml Vial) 4 mg IVPUSH Q8H PRN PRN Reason: Nausea and Vomiting Last Admin: 02/09/23 08:51 Dose: 4 mg Documented By: BERTRAND Oxycodone HCl (Oxycodone Hcl Immed Release 5 Mg Tablet) 5 mg PO Q4H PRN PRN Reason: Pain, Moderate(Pain Scale 4-6) Sodium Chloride (0.9 % Sodium Chloride Flush 3 Ml Syringe) 3 ml IVFLUSH QSHIFT [facility] Last Admin: 02/09/23 21:17 Dose: 3 ml Documented By: MARY Thiamine HCl (Thiamine Hcl 100 Mg Tablet) 100 mg PO DAILY [facility] Last Admin: 02/09/23 09:49 Dose: Not Given Documented By: BERTRAND Non-Admin Reason: pt unable to tolerate Tiotropium [place] (Tiotropium [place] 2.5 Mcg 1 Puff/2.5 Mcg Mist.Inhal) 2 puff INHALE RDAILY [facility] Last Admin: 02/09/23 11:12 Dose: 2 puff Documented By: RICHARD Vitamin D (Cholecalciferol (Vitamin D3) 25 Mcg Tablet) 25 mcg PO DAILY [facility] Last Admin: 02/09/23 09:48 Dose: Not Given Documented By: BERTRAND Non-Admin Reason: pt unable to tolerate Labs 02/10/23 05:14 02/10/23 05:14 Labs: Laboratory Results - last 24 hr 02/09/23 02/09/23 02/09/23 07:14 11:21 12:45 MCV MCH MCHC RDW Plt Count MPV Absolute Nucleated RBC Nucleated RBC % (auto) Anion Gap Estim Creat Clear Calc Estimated GFR POC Glucose 124 H 109 Fasting Glucose Calcium Blood Type A Positive Antibody Screen NEGATIVE 02/09/23 02/09/23 02/10/23 16:02 20:15 05:14 MCV 92.7 MCH 28.7 MCHC 31.0 RDW 13.2 Plt Count 389 MPV 8.9 L Absolute Nucleated RBC 0.000 Nucleated RBC % (auto) 0.0 Anion Gap 14 Estim Creat Clear Calc 40.9 Estimated GFR 45 POC Glucose 105 106 Fasting Glucose 99 Calcium 9.6 Blood Type Antibody Screen Assessment and Plan (1) Closed fracture of right hip: Status: Acute Plan 82F PMH chronic systolic and diastolic CHF, chronic hypoxic respiratory failure on 2 L home O2 due to COPD, paroxysmal atrial fibrillation, diabetes, CRISTA, hypothyroid, coronary disease presented with mechanical fall complicated by right hip fracture Right hip fracture status post mechanical fall Last dose of Eliquis 02/07/2023 in the evening plan for surgery Chronic hypoxic respiratory failure secondary to COPD Continue home O2 Paroxysmal atrial fibrillation Holding Eliquis for surgery Continue metoprolol Coronary disease Continue aspirin and statin Chronic systolic and diastolic CHF Continue metoprolol, Lasix Diabetes Continue insulin Hypothyroid Continue Synthroid CRISTA Refuses CPAP Obesity Weight loss recommended DVT prophylaxis-mechanical for now, restart Eliquis after surgery Full code reason for continued hospitalization: Plan for inpatient surgery Quality Stroke Does the patient have a stroke diagnosis?: No VTE Prior VTE?: No VTE Risk Level:: Medical - moderate - high VTE Device Contraindication: N/A - Device Ordered VTE Drug Contraindication: Treatment Not Indicated
[2023-02-10 07:27] LABS: Glucose, Whole Blood 93 mg/dL (60-115)
[2023-02-10] MEDS: Fluticasone/Vilanterol 200/25 BLST.W.DEV 1 PUFF INHALE (08:30)
[2023-02-10] MEDS: Tiotropium Bromide 2.5 mcg 1 PUFF/2.5 MCG MIST.INHAL 2 PUFF INHALE (08:30)
[2023-02-10] MEDS: 0.9 % Sodium Chloride Flush 3 ML SYRINGE IVFLUSH ×3 (08:44→19:51)
--- NOTE | 2023-02-10 08:54 | P.CONAN_ITS ---
HPI - Anesthesia Eval Consult details Narrative: Right femur fracture PMFSH Active Problems Active Problems: All Active Problems (Updated 02/09/23 @ 12:13 by Gretel Mccormick PA-C) Closed fracture of right hip (Acute) Fall (Acute) Cognitive changes (Acute) Pressure sore of ischial area (Acute) Dysarthria (Acute) Pulmonary nodule (Acute) C. 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) Dysphagia (Acute) Alopecia (Acute) Hypercholesterolemia (Acute) Dizziness (Acute) Type 2 diabetes mellitus with unspecified complications (Acute) Essential hypertension (Acute) Atherosclerotic cardiovascular disease (Acute) Seborrheic dermatitis (Acute) Bile salt-induced diarrhea (Acute) Mass of jaw (Acute) Renal insufficiency (Acute) Alopecia (Acute) Type 2 diabetes mellitus with hyperglycemia (Acute) Chronic pain syndrome (Acute) 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 (Acute) Spondylosis of lumbar spine (Acute) Respiratory failure with hypoxia and hypercapnia (Acute) Urinary tract infection (Acute) Osteopenia (Acute) Osteoarthritis, knee (Acute) Gait instability (Acute) Abdominal aortic aneurysm (Acute) Restrictive lung disease (Acute) Obesity (BMI 30-39.9) (Acute) Hypothyroid (Acute) Obstructive sleep apnea (Acute) Paroxysmal atrial fibrillation (Acute) Past Medical History Medical History Strong odor of stools Dysuria Pulmonary nodules Diarrhea Weakness Bradycardia Ingrowing nail Impacted cerumen of right ear Urinary incontinence Impacted cerumen of right ear Pulmonary nodule Chronic anticoagulation First degree atrioventricular block Atrial fibrillation Chronic pain syndrome 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 Low back pain Respiratory failure with hypoxia and hypercapnia Lower extremity weakness Nasal congestion Otitis externa Coronary artery disease Restrictive lung disease Diarrhea History of spinal stenosis Fibromyalgia Obesity (BMI 30-39.9) Carpal tunnel syndrome Abdominal aortic aneurysm Hypothyroid Obstructive sleep apnea Congestive heart failure Pernicious anemia Paroxysmal atrial fibrillation COPD (chronic obstructive pulmonary disease) DVT (deep venous thrombosis) Diverticulitis GERD (gastroesophageal reflux disease) HTN (hypertension) Clostridium difficile colitis CAD (coronary artery disease) Hypercholesterolemia Family History Family History Father Hypertension CVD (cardiovascular disease) Mother Colon cancer Sister Leukemia Sister Colon cancer Son Lung cancer Colon polyps Family history of problems with anesthesia: No Surgical History Surgical History S/P BREANN-BSO (total abdominal hysterectomy and bilateral salpingo-oophorectomy) History of arthroplasty of left shoulder Hx of cholecystectomy H/O angioplasty Hx of appendectomy H/O cardiac catheterization History of Problems with Anesthesia: No Social History Social History Household Members: None Housing: Apartment Do you presently have visiting nurse or other home services: Yes ([facility]) Alcohol intake: never Patient Tobacco Use Status: Former Tobacco user Tobacco use type: Cigarette Years Smoked: stopped 2009 e-Cigarette/Vaping Use: Never Used Second Hand Smoke Exposure: No Advance Directives Date on File: 10/10/21 service: No Current occupational status: retired Current occupational exposures/hazards: No Cognitive needs: No Hearing needs: No Vision needs: Yes Meds Allergies Allergy/AdvReac Type Severity Reaction Status Date / Time morphine [MORPHINE] Allergy Unknown RASH Verified 02/08/23 19:19 pregabalin [From LYRICA] Allergy Unknown NAUSEA, Verified 02/08/23 19:19 felt high on drugs Active Medications: Current Medications Acetaminophen (Acetaminophen 325 Mg Tablet) 650 mg PO Q6H PRN PRN Reason: Pain, Mild (Pain Scale 1-3) Acyclovir (Acyclovir 5 % Oint 15 Gm Tube) 1 gm TOPICAL 6XD PRN PRN Reason: genital lesions Albuterol Sulfate (Albuterol Sulfate (0.083%) 2.5 Mg/3 Ml Vial.Neb) 2.5 mg INHALE Q6H PRN PRN Reason: for wheezing Albuterol/Ipratropium (Albuterol/Iprat 2.5/0.5mg 3 Ml Ampul.Neb) 3 ml INHALE Q4H PRN PRN Reason: for wheezing Ascorbic Acid (Ascorbic Acid 500 Mg Tablet) 500 mg PO BID [facility] Last Admin: 02/10/23 08:45 Dose: Not Given Aspirin (Aspirin 81 Mg Tab.Chew) 81 mg PO DAILY [facility] Last Admin: 02/10/23 08:45 Dose: Not Given Atorvastatin Calcium (Atorvastatin Calcium 80 Mg Tablet) 80 mg PO DAILY [facility] Last Admin: 02/10/23 08:45 Dose: Not Given Clotrimazole (Clotrimazole 1 % Cream 15 Gm Tube) 1 appl TOPICAL BID [facility]; Protocol Last Admin: 02/09/23 21:25 Dose: Not Given Cyanocobalamin (Cyanocobalamin (Vitamin B-12) 1,000 Mcg/Ml Vial) 1,000 mcg IM Q28D [facility] Dextrose (Dextrose 50 % 25 Gm/50 Ml Syringe) 25 gm IVPUSH Q15M PRN; Protocol PRN Reason: per Hypoglycemia Standing Ord. Duloxetine HCl (Duloxetine Hcl 30 Mg Capsule.) 30 mg PO DAILY [facility] Last Admin: 02/10/23 08:46 Dose: Not Given Ezetimibe (Ezetimibe 10 Mg Tablet) 10 mg PO DAILY [facility] Last Admin: 02/10/23 08:47 Dose: Not Given Ferrous Sulfate (Ferrous Sulfate 324 Mg Tablet.) 324 mg PO DAILY [facility] Last Admin: 02/10/23 08:47 Dose: Not Given Fluticasone/Vilanterol (Fluticasone/Vilanterol 200/25 Blst.W.Dev) 1 puff INHALE RDAILY [facility] Last Admin: 02/10/23 08:30 Dose: 1 puff Furosemide (Furosemide 40 Mg Tablet) 40 mg PO DAILY [facility]; Protocol Last Admin: 02/09/23 09:49 Dose: Not Given Glucose (Glucose Gel 15 Gm Gel..Gram.) 15 gm PO Q15M PRN; Protocol PRN Reason: per Hypoglycemia Standing Ord. Hydromorphone HCl (Hydromorphone Hcl 1 Mg/Ml Syringe) 1 mg IVPUSH Q4H PRN; Protocol PRN Reason: Pain, Severe (Pain Scale 7-10) Last Admin: 02/10/23 05:02 Dose: 1 mg Promethazine HCl 12.5 mg/ (Sodium Chloride) 50.5 mls @ 202 mls/hr IV Q4H PRN PRN Reason: Nausea and Vomiting Insulin Human Lispro (Insulin Lispro 100 Unit/Ml 3 Ml Vial) 0 unit SUBCUT QIDACHS [facility]; Protocol Last Admin: 02/10/23 07:36 Dose: Not Given Levothyroxine Sodium (Levothyroxine Sodium 100 Mcg Tablet) 100 mcg PO DAILY@0600 [facility] Last Admin: 02/10/23 05:13 Dose: Not Given Melatonin (Melatonin 3 Mg Tablet) 6 mg PO BEDTIME PRN PRN Reason: Insomnia Metoprolol Succinate (Metoprolol Succinate Er 50 Mg Tab.Er.24h) 50 mg PO DAILY [facility]; Protocol Last Admin: 02/10/23 08:48 Dose: Not Given Omeprazole (Omeprazole 20 Mg Capsule.Dr) 20 mg PO DAILY [facility] Last Admin: 02/10/23 08:48 Dose: Not Given Ondansetron HCl (Ondansetron Hcl 4 Mg/2 Ml Vial) 4 mg IVPUSH Q8H PRN PRN Reason: Nausea and Vomiting Last Admin: 02/09/23 08:51 Dose: 4 mg Oxycodone HCl (Oxycodone Hcl Immed Release 5 Mg Tablet) 5 mg PO Q4H PRN PRN Reason: Pain, Moderate(Pain Scale 4-6) Sodium Chloride (0.9 % Sodium Chloride Flush 3 Ml Syringe) 3 ml IVFLUSH QSHIFT [facility] Last Admin: 02/10/23 08:44 Dose: 3 ml Thiamine HCl (Thiamine Hcl 100 Mg Tablet) 100 mg PO DAILY [facility] Last Admin: 02/10/23 08:49 Dose: Not Given Tiotropium [place] (Tiotropium [place] 2.5 Mcg 1 Puff/2.5 Mcg Mist.Inhal) 2 puff INHALE RDAILY [facility] Last Admin: 02/10/23 08:30 Dose: 2 puff Vitamin D (Cholecalciferol (Vitamin D3) 25 Mcg Tablet) 25 mcg PO DAILY [facility] Last Admin: 02/10/23 08:46 Dose: Not Given Home Medications Medication Instructions Recorded Confirmed Last Taken Type aspirin 81 mg tablet 81 mg PO DAILY 12/01/19 02/08/23 02/08/23 History cholecalciferol (vitamin D3) 25 25 mcg PO DAILY 12/01/19 02/08/23 02/08/23 History mcg (1,000 unit) capsule (Vitamin D3) dicyclomine 10 mg capsule 10 - 20 mg PO QID PRN Abdominal 12/01/19 02/08/23 Unknown History Pain ferrous sulfate 325 mg (65 mg 325 mg PO DAILY 12/01/19 02/08/23 02/08/23 History iron) tablet metoprolol succinate 50 mg 50 mg PO DAILY 01/17/23 02/08/23 02/08/23 History tablet,extended release 24 hr acyclovir 5 % topical ointment 1 appl topical 6XD PRN genital 02/08/23 02/08/23 Unknown History lesions Exam Height,Weight and Vital Signs: Height 5 ft 3 in Weight 93.4 kg Last Vital Signs Temp 96.8 F 02/10/23 07:53 Pulse 95 02/10/23 08:30 Resp 16 02/10/23 08:30 BP 146/63 H 02/10/23 07:53 Pulse Ox 91 L 02/10/23 07:53 O2 Del Method Nasal Cannula 02/10/23 07:53 O2 Flow Rate 2.0 02/10/23 07:53 Pertinent Lab Results Pertinent Lab Results: Laboratory Tests 02/08/23 02/08/23 02/09/23 21:09 22:42 03:32 WBC 11.6 H RBC 4.10 L Hgb 11.8 L Hct 37.0 MCV 90.2 MCH 28.8 MCHC 31.9 RDW 13.0 Plt Count 433 H D MPV 8.9 L Immature Gran % (Auto) 0.7 H Neut % (Auto) 79.8 H Lymph % (Auto) 11.2 L [place] % (Auto) 7.6 Eos % (Auto) 0.5 Baso % (Auto) 0.2 Lymph # (Auto) 1.3 [place] # (Auto) 0.9 Eos # (Auto) 0.1 Baso # (Auto) 0.0 Abs Immat Gran (auto) 0.08 H Absolute Neuts (auto) 9.2 H Absolute Nucleated RBC 0.000 Nucleated RBC % (auto) 0.0 Sodium 144 Potassium 4.4 Chloride 108 Carbon Dioxide 26 Anion Gap 14 BUN 12 Creatinine 0.86 Estim Creat Clear Calc 51.0 Estimated GFR > 60 POC Glucose 125 H Random Glucose 128 H Fasting Glucose Calcium 9.7 B-Natriuretic Peptide 710 H Blood Type Antibody Screen 02/09/23 02/09/23 02/09/23 05:23 07:14 11:21 WBC 8.8 RBC 4.33 Hgb 12.4 Hct 40.6 MCV 93.8 MCH 28.6 MCHC 30.5 L RDW 13.1 Plt Count 476 H MPV 9.2 L Immature Gran % (Auto) 0.6 H Neut % (Auto) 65.5 Lymph % (Auto) 24.3 [place] % (Auto) 9.2 Eos % (Auto) 0.2 Baso % (Auto) 0.2 Lymph # (Auto) 2.1 [place] # (Auto) 0.8 Eos # (Auto) 0.0 Baso # (Auto) 0.0 Abs Immat Gran (auto) 0.05 H Absolute Neuts (auto) 5.8 Absolute Nucleated RBC 0.000 Nucleated RBC % (auto) 0.0 Sodium 145 Potassium 4.4 Chloride 106 Carbon Dioxide 28 Anion Gap 15 BUN 12 Creatinine 0.95 Estim Creat Clear Calc 49.6 Estimated GFR 56 POC Glucose 124 H 109 Random Glucose 130 H Fasting Glucose Calcium 10.0 B-Natriuretic Peptide Blood Type Antibody Screen 02/09/23 02/09/23 02/09/23 12:45 16:02 20:15 WBC RBC Hgb Hct MCV MCH MCHC RDW Plt Count MPV Immature Gran % (Auto) Neut % (Auto) Lymph % (Auto) [place] % (Auto) Eos % (Auto) Baso % (Auto) Lymph # (Auto) [place] # (Auto) Eos # (Auto) Baso # (Auto) Abs Immat Gran (auto) Absolute Neuts (auto) Absolute Nucleated RBC Nucleated RBC % (auto) Sodium Potassium Chloride Carbon Dioxide Anion Gap BUN Creatinine Estim Creat Clear Calc Estimated GFR POC Glucose 105 106 Random Glucose Fasting Glucose Calcium B-Natriuretic Peptide Blood Type A Positive Antibody Screen NEGATIVE 02/10/23 02/10/23 05:14 07:22 WBC 7.5 RBC 3.97 L Hgb 11.4 L Hct 36.8 L MCV 92.7 MCH 28.7 MCHC 31.0 RDW 13.2 Plt Count 389 MPV 8.9 L Immature Gran % (Auto) Neut % (Auto) Lymph % (Auto) [place] % (Auto) Eos % (Auto) Baso % (Auto) Lymph # (Auto) [place] # (Auto) Eos # (Auto) Baso # (Auto) Abs Immat Gran (auto) Absolute Neuts (auto) Absolute Nucleated RBC 0.000 Nucleated RBC % (auto) 0.0 Sodium 141 Potassium 4.1 Chloride 104 Carbon Dioxide 27 Anion Gap 14 BUN 19 H Creatinine 1.15 Estim Creat Clear Calc 40.9 Estimated GFR 45 POC Glucose 93 Random Glucose Fasting Glucose 99 Calcium 9.6 B-Natriuretic Peptide Blood Type Antibody Screen Airway Mallampati Class: II TM Dist: >3cm Neck ROM: Full Denture: Upper and Lower Loose/Missing/Broken Teeth: No Heart: RRR Lungs: CTA Assessment and Plan Assessment Anesthesia Assessment: Anesthesia Plan Discussed and Chart Reviewed Final Anesthetic Review Family History of Problems with Anesthesia: No History of Problems with Anesthesia: No NPO: Yes ASA Class: IV Final Preanesthetic Review: No Changes in Pt Med Stat, Meds/Allgs Chart Reviewed, Consent Obtained/Reviewed and Anes Risks/Benef Reviewed Patient Risk: High Procedure Risk: Intermediate Anesthetic Plan Anesthetic Plan: GA Disposition: Standard PACU
--- NOTE | 2023-02-10 10:47 | P.BOP_ITS ---
Brief Operative Note Date of Service: 02/10/23 Pre-op diagnosis: Right hip fracture Post-op diagnosis: same Procedure: IMN right hip Implants: Unruly 125 deg [id number] IMN iwth 100 mm hjip screw and 37.5 mm distal interlock Surgeon: Greg Covarrubias MD Anesthesia: GETA and local Was an [employer] Sales Manager used for this Procedure?: No Estimated blood loss (mL): 100 IV fluids (mL): 1,000 Pathology: none sent Condition: stable Disposition: PACU
[2023-02-10 11:12] LABS: Glucose, Whole Blood 109 mg/dL (60-115)
--- NOTE | 2023-02-10 11:18 | PC.NURSE ---
SPOKE WITH ZAINAB, [employer] [place] [id number], AND PHARMACY REGARDING PATIENT IV TYLENOL ORDERS TO CLARIFY DOCUMENTATION IN RELATION TO MD ORDER.
[2023-02-10 16:30] LABS: Glucose, Whole Blood 91 mg/dL (60-115)
[2023-02-10] MEDS: Ascorbic Acid 500 MG TABLET PO (19:50)
[2023-02-10 20:18] LABS: Glucose, Whole Blood 85 mg/dL (60-115)
[2023-02-10] MEDS: oxyCODONE HCl Immed Release 5 MG TABLET PO (22:11)
[2023-02-11 03:53] VITALS: BP 133/56; PULSE 110; RESP 18; TEMP 36.3; O2SAT 95
[2023-02-11] MEDS: HYDROmorphone HCl 1 MG/ML SYRINGE IVPUSH ×4 (04:24→20:54)
[2023-02-11] MEDS: Levothyroxine Sodium 100 MCG TABLET PO (06:02)
[2023-02-11 06:03] LABS: Hematocrit 35.7 % (37.0-47.0); Hemoglobin 11.2 g/dl (12.0-16.0); Mean Corpuscular HGB Conc 31.4 g/dl (31.0-35.0); Mean Corpuscular Hemoglobin 29.5 pg (27.0-33.0); Mean Corpuscular Volume 93.9 fL (80.0-98.0); Mean Platelet Volume 9.4 fL (9.4-12.3); Platelet Count 413 X10*3/uL (160-400); Red Cell Distribution Width 13.2 % (11.0-16.0)
[2023-02-11] MEDS: oxyCODONE HCl Immed Release 5 MG TABLET PO (06:04)
[2023-02-11 06:08] LABS: Anion Gap 15 (12-20); Blood Urea Nitrogen 20 mg/dL (9-16); Calcium 9.3 mg/dL (8.4-10.2); Carbon Dioxide 25 mmol/L (22-29); Chloride 103 mmol/L (96-108); Creatinine Clr Calc Pharmacy 44.8; Estimated Glomerular Filt Rate 50; Glucose Fasting 100 mg/dL (60-99); Potassium 4.3 mmol/L (3.3-5.1); Sodium 139 mmol/L (135-145)
[2023-02-11 07:19] LABS: Glucose, Whole Blood 100 mg/dL (60-115)
[2023-02-11 07:43] VITALS: BP 136/63; PULSE 98; RESP 20; TEMP 36.6; O2SAT 96
--- NOTE | 2023-02-11 07:48 | HO.PM.IMPN ---
Subjective Subjective Date of Service: 02/11/23 Interval History: right hip pain Physical Exam Vital Signs: Vital Signs: Last Vital Signs Temp 97.8 F 02/11/23 07:43 Pulse 98 02/11/23 07:43 Resp 20 02/11/23 07:43 BP 136/63 02/11/23 07:43 Pulse Ox 96 02/11/23 07:43 O2 Del Method Nasal Cannula 02/11/23 07:43 O2 Flow Rate 2 02/11/23 07:43 BMI result Body Mass Index 36.5 Const: General: cooperative, healthy appearing, comfortable, no acute distress, well developed and alert Orientation/consciousness: patient oriented x3 HEENT: Head: Yes normal to inspection, Yes normocephalic and Yes atraumatic Eyes: General: appearance normal, both eyes and all related structures Neck: Neck: Yes normal visual inspection and Yes no lymphadenopathy Resp: Effort & Inspection: normal respiratory effort and able to speak in complete sentences Cardio: Rate: regular rate Peripheral pulses: Peripheral pulses 2+ throughout GI: Inspection: Yes normal to inspection Palpation (GI): Soft to palpation Skin: General skin exam: no rashes or lesions noted Neuro: General: patient oriented x3 Extrem: Other: Right hip skin intact, tenderness over the greater troch region with leg shortened and ER. NVi. Psych: Appearance: grossly normal Mental Status: mental status grossly normal Objective Data Active Medications Acetaminophen (Acetaminophen 325 Mg Tablet) 650 mg PO Q6H PRN PRN Reason: Pain, Mild (Pain Scale 1-3) Acyclovir (Acyclovir 5 % Oint 15 Gm Tube) 1 gm TOPICAL 6XD PRN PRN Reason: genital lesions Albuterol Sulfate (Albuterol Sulfate (0.083%) 2.5 Mg/3 Ml Vial.Neb) 2.5 mg INHALE Q6H PRN PRN Reason: for wheezing Albuterol/Ipratropium (Albuterol/Iprat 2.5/0.5mg 3 Ml Ampul.Neb) 3 ml INHALE Q4H PRN PRN Reason: for wheezing Ascorbic Acid (Ascorbic Acid 500 Mg Tablet) 500 mg PO BID [facility] Last Admin: 02/10/23 19:50 Dose: 500 mg Documented By: FARHANA Aspirin (Aspirin 81 Mg Tab.Chew) 81 mg PO DAILY [facility] Last Admin: 02/10/23 08:45 Dose: Not Given Documented By: ALYSSA Non-Admin Reason: NPO for O.R. Atorvastatin Calcium (Atorvastatin Calcium 80 Mg Tablet) 80 mg PO DAILY [facility] Last Admin: 02/10/23 08:45 Dose: Not Given Documented By: ALYSSA Non-Admin Reason: NPO for O.R. Clotrimazole (Clotrimazole 1 % Cream 15 Gm Tube) 1 appl TOPICAL BID [facility]; Protocol Last Admin: 02/10/23 21:26 Dose: Not Given Documented By: FARHANA Non-Admin Reason: Med Not Available Cyanocobalamin (Cyanocobalamin (Vitamin B-12) 1,000 Mcg/Ml Vial) 1,000 mcg IM Q28D [facility] Dextrose (Dextrose 50 % 25 Gm/50 Ml Syringe) 25 gm IVPUSH Q15M PRN; Protocol PRN Reason: per Hypoglycemia Standing Ord. Duloxetine HCl (Duloxetine Hcl 30 Mg Capsule.) 30 mg PO DAILY [facility] Last Admin: 02/10/23 08:46 Dose: Not Given Documented By: ALYSSA Non-Admin Reason: NPO for O.R. Ezetimibe (Ezetimibe 10 Mg Tablet) 10 mg PO DAILY [facility] Last Admin: 02/10/23 08:47 Dose: Not Given Documented By: ALYSSA Non-Admin Reason: NPO for O.R. Fentanyl (Fentanyl Citrate/Pf 100 Mcg/2 Ml Vial) 25 mcg IVPUSH Q5M PRN; Protocol PRN Reason: Pain, Moderate(Pain Scale 4-6) Ferrous Sulfate (Ferrous Sulfate 324 Mg Tablet.) 324 mg PO DAILY [facility] Last Admin: 02/10/23 08:47 Dose: Not Given Documented By: ALYSSA Non-Admin Reason: NPO for O.R. Fluticasone/Vilanterol (Fluticasone/Vilanterol 200/25 Blst.W.Dev) 1 puff INHALE RDAILY [facility] Last Admin: 02/10/23 08:30 Dose: 1 puff Documented By: PASTOR Furosemide (Furosemide 40 Mg Tablet) 40 mg PO DAILY [facility]; Protocol Last Admin: 02/10/23 10:25 Dose: Not Given Documented By: ALYSSA Non-Admin Reason: NPO for O.R. Glucose (Glucose Gel 15 Gm Gel..Gram.) 15 gm PO Q15M PRN; Protocol PRN Reason: per Hypoglycemia Standing Ord. Hydromorphone HCl (Hydromorphone Hcl 1 Mg/Ml Syringe) 1 mg IVPUSH Q4H PRN; Protocol PRN Reason: Pain, Severe (Pain Scale 7-10) Last Admin: 02/11/23 04:24 Dose: 1 mg Documented By: FARHANA Hydromorphone HCl (Hydromorphone Hcl 0.5 Mg/0.5 Ml Syringe) 0.25 mg IVPUSH Q5M PRN; Protocol PRN Reason: Pain, Severe (Pain Scale 7-10) Promethazine HCl 12.5 mg/ (Sodium Chloride) 50.5 mls @ 202 mls/hr IV Q4H PRN PRN Reason: Nausea and Vomiting Insulin Human Lispro (Insulin Lispro 100 Unit/Ml 3 Ml Vial) 0 unit SUBCUT QIDACHS [facility]; Protocol Last Admin: 02/11/23 07:24 Dose: Not Given Documented By: ALYSSA Non-Admin Reason: No Insulin Coverage Levothyroxine Sodium (Levothyroxine Sodium 100 Mcg Tablet) 100 mcg PO DAILY@0600 [facility] Last Admin: 02/11/23 06:02 Dose: 100 mcg Documented By: FARHANA Melatonin (Melatonin 3 Mg Tablet) 6 mg PO BEDTIME PRN PRN Reason: Insomnia Metoprolol Succinate (Metoprolol Succinate Er 50 Mg Tab.Er.24h) 50 mg PO DAILY [facility]; Protocol Last Admin: 02/10/23 08:48 Dose: Not Given Documented By: ALYSSA Non-Admin Reason: NPO for O.R. Omeprazole (Omeprazole 20 Mg Capsule.Dr) 20 mg PO DAILY [facility] Last Admin: 02/10/23 08:48 Dose: Not Given Documented By: ALYSSA Non-Admin Reason: NPO for O.R. Ondansetron HCl (Ondansetron Hcl 4 Mg/2 Ml Vial) 4 mg IVPUSH Q8H PRN PRN Reason: Nausea and Vomiting Last Admin: 02/09/23 08:51 Dose: 4 mg Documented By: BERTRAND Oxycodone HCl (Oxycodone Hcl Immed Release 5 Mg Tablet) 5 mg PO Q4H PRN PRN Reason: Pain, Moderate(Pain Scale 4-6) Last Admin: 02/11/23 06:04 Dose: 5 mg Documented By: FARHANA Sodium Chloride (0.9 % Sodium Chloride Flush 3 Ml Syringe) 3 ml IVFLUSH QSHIFT [facility] Last Admin: 02/10/23 19:51 Dose: 3 ml Documented By: FARHANA Thiamine HCl (Thiamine Hcl 100 Mg Tablet) 100 mg PO DAILY [facility] Last Admin: 02/10/23 08:49 Dose: Not Given Documented By: ALYSSA Non-Admin Reason: NPO for O.R. Tiotropium [place] (Tiotropium [place] 2.5 Mcg 1 Puff/2.5 Mcg Mist.Inhal) 2 puff INHALE RDAILY [facility] Last Admin: 02/10/23 08:30 Dose: 2 puff Documented By: PASTOR Vitamin D (Cholecalciferol (Vitamin D3) 25 Mcg Tablet) 25 mcg PO DAILY [facility] Last Admin: 02/10/23 08:46 Dose: Not Given Documented By: ALYSSA Non-Admin Reason: NPO for O.R. Labs 02/11/23 05:04 02/11/23 05:04 Labs: Laboratory Results - last 24 hr 02/10/23 02/10/23 02/10/23 11:07 16:26 19:14 MCV MCH MCHC RDW Plt Count MPV Absolute Nucleated RBC Nucleated RBC % (auto) Anion Gap Estim Creat Clear Calc Estimated GFR POC Glucose 109 91 85 Fasting Glucose Calcium 02/11/23 02/11/23 05:04 07:15 MCV 93.9 MCH 29.5 MCHC 31.4 RDW 13.2 Plt Count 413 H MPV 9.4 Absolute Nucleated RBC 0.000 Nucleated RBC % (auto) 0.0 Anion Gap 15 Estim Creat Clear Calc 44.8 Estimated GFR 50 POC Glucose 100 Fasting Glucose 100 H Calcium 9.3 Assessment and Plan (1) Closed fracture of right hip: Status: Acute Plan 82F PMH chronic systolic and diastolic CHF, chronic hypoxic respiratory failure on 2 L home O2 due to COPD, paroxysmal atrial fibrillation, diabetes, CRISTA, hypothyroid, coronary disease presented with mechanical fall complicated by right hip fracture Right hip fracture status post mechanical fall POD 1 right hip IMN 02/10/23 Chronic hypoxic respiratory failure secondary to COPD Continue home O2 Paroxysmal atrial fibrillation restart eliquis when okay from surgical standpoint Continue metoprolol Coronary disease Continue aspirin and statin Chronic systolic and diastolic CHF Continue metoprolol, Lasix Diabetes Continue insulin Hypothyroid Continue Synthroid CRISTA Refuses CPAP Obesity Weight loss recommended DVT prophylaxis-mechanical for now, restart Zhao when okay from surgical standpoint Full code reason for continued hospitalization: PT Quality Stroke Does the patient have a stroke diagnosis?: No VTE Prior VTE?: No VTE Risk Level:: Medical - moderate - high VTE Device Contraindication: N/A - Device Ordered VTE Drug Contraindication: Treatment Not Indicated
[2023-02-11] MEDS: 0.9 % Sodium Chloride Flush 3 ML SYRINGE IVFLUSH ×3 (08:06→20:54)
[2023-02-11] MEDS: Furosemide 40 MG TABLET PO (08:07)
[2023-02-11] MEDS: Thiamine HCL 100 MG TABLET PO (08:07)
[2023-02-11] MEDS: Cholecalciferol (Vitamin D3) 25 MCG TABLET PO (08:08)
[2023-02-11] MEDS: Atorvastatin Calcium 80 MG TABLET PO (08:08)
[2023-02-11] MEDS: Metoprolol Succinate ER 50 MG TAB.ER.24H PO (08:08)
[2023-02-11] MEDS: Ascorbic Acid 500 MG TABLET PO ×2 (08:08→20:54)
[2023-02-11] MEDS: Ezetimibe 10 MG TABLET PO (08:08)
[2023-02-11] MEDS: DULoxetine HCl 30 MG CAPSULE.DR PO (08:08)
[2023-02-11] MEDS: Aspirin 81 MG TAB.CHEW PO (08:08)
[2023-02-11] MEDS: Ferrous Sulfate 324 MG TABLET.DR PO (08:08)
[2023-02-11] MEDS: Omeprazole 20 MG CAPSULE.DR PO (08:08)
[2023-02-11] MEDS: Tiotropium Bromide 2.5 mcg 1 PUFF/2.5 MCG MIST.INHAL 2 PUFF INHALE (08:41)
[2023-02-11] MEDS: Fluticasone/Vilanterol 200/25 BLST.W.DEV 1 PUFF INHALE (08:41)
[2023-02-11 08:45] VITALS: PULSE 106; RESP 20; O2SAT 92
[2023-02-11 08:56] VITALS: O2SAT 95
--- NOTE | 2023-02-11 10:00 | HO.POSTANES ---
Post Anesthesia Evaluation Post Anesthesia Evaluation Date of Service: 02/11/23 Vital Signs: Vital Signs Temp Pulse Resp BP Pulse Ox O2 Del Method O2 Flow Rate 02/11/23 08:56 95 Nasal Cannula 02/11/23 08:45 106 H 20 02/11/23 07:43 97.8 F 98 20 136/63 96 Nasal Cannula 2 02/11/23 03:53 97.3 F 110 H 18 133/56 L 95 Nasal Cannula 2 02/10/23 23:37 97.5 F 111 H 18 126/63 94 Nasal Cannula 2 Anesthesia: General Mental Status: Awake Pain Control: Satisfactory Nausea/Vomiting: None Hydration: Adequate Anesthesia-Related Issues: No Anes. Related Issues
[2023-02-11 11:10] LABS: Glucose, Whole Blood 144 mg/dL (60-115)
--- NOTE | 2023-02-11 13:06 | PM.PNORT ---
Subjective Subjective Date of Service: 02/11/23 Principal diagnosis: POD#1 s/p IMN Interval history: No overnight events Physical Exam Vital Signs: Vital Signs: Last Vital Signs Temp 97.8 F 02/11/23 07:43 Pulse 106 H 02/11/23 08:45 Resp 20 02/11/23 08:45 BP 136/63 02/11/23 07:43 Pulse Ox 95 02/11/23 08:56 O2 Del Method Nasal Cannula 02/11/23 08:56 O2 Flow Rate 2 02/11/23 07:43 BMI result Body Mass Index 36.5 Extrem: Other: inc c/d/i SILT Firing ehl/ta/gc foot warm and well perfused Procedures Date of Service Date of Service: 02/11/23 Progress Note: A&P Assessment and plan (1) Closed fracture of right hip: Status: Acute Plan Right hip fracture s/p IMN doing well WBAT with PT SCDS and lvx Po pain control dispo planning Time Spent With Patient Time: Total time managing care of this patient today ____ minutes. Quality Stroke Does the patient have a stroke diagnosis?: No VTE Prior VTE?: No VTE Risk Level:: Medical - moderate - high VTE Device Contraindication: N/A - Device Ordered VTE Drug Contraindication: Treatment Not Indicated
[2023-02-11] MEDS: Enoxaparin Sodium 40 MG/0.4 ML SYRINGE SUBCUT (13:48)
[2023-02-11 15:30] VITALS: BP 132/80; PULSE 80; RESP 20; TEMP 36.4; O2SAT 94
[2023-02-11 16:29] LABS: Glucose, Whole Blood 116 mg/dL (60-115)
[2023-02-11] MEDS: ondansetron HCL 4 MG/2 ML VIAL IVPUSH (17:18)
[2023-02-11 19:26] VITALS: BP 128/59; PULSE 82; RESP 14; TEMP 36; O2SAT 94
[2023-02-11 19:38] LABS: Glucose, Whole Blood 115 mg/dL (60-115)
[2023-02-12] MEDS: HYDROmorphone HCl 1 MG/ML SYRINGE IVPUSH (02:09)
[2023-02-12 02:57] VITALS: BP 123/58; PULSE 73; RESP 16; TEMP 36.5; O2SAT 93
[2023-02-12] MEDS: Levothyroxine Sodium 100 MCG TABLET PO (05:53)
[2023-02-12 07:19] VITALS: BP 146/63; PULSE 82; RESP 20; TEMP 36.6; O2SAT 95
[2023-02-12 07:31] LABS: Glucose, Whole Blood 89 mg/dL (60-115)
[2023-02-12 07:51] VITALS: RESP 18; O2SAT 95
[2023-02-12] MEDS: Fluticasone/Vilanterol 200/25 BLST.W.DEV 1 PUFF INHALE (07:51)
[2023-02-12] MEDS: Tiotropium Bromide 2.5 mcg 1 PUFF/2.5 MCG MIST.INHAL 2 PUFF INHALE (07:51)
--- NOTE | 2023-02-12 08:15 | HO.PM.IMPN ---
Subjective Subjective Date of Service: 02/12/23 Interval History: constipation Physical Exam Vital Signs: Vital Signs: Last Vital Signs Temp 97.8 F 02/12/23 07:19 Pulse 82 02/12/23 07:19 Resp 18 02/12/23 07:51 BP 146/63 H 02/12/23 07:19 Pulse Ox 95 02/12/23 07:19 O2 Del Method Nasal Cannula 02/12/23 07:19 O2 Flow Rate 2 02/12/23 07:19 BMI result Body Mass Index 36.5 Extrem: Other: inc c/d/i SILT Firing ehl/ta/gc foot warm and well perfused Objective Data Active Medications Acetaminophen (Acetaminophen 325 Mg Tablet) 650 mg PO Q6H PRN PRN Reason: Pain, Mild (Pain Scale 1-3) Acyclovir (Acyclovir 5 % Oint 15 Gm Tube) 1 gm TOPICAL 6XD PRN PRN Reason: genital lesions Albuterol Sulfate (Albuterol Sulfate (0.083%) 2.5 Mg/3 Ml Vial.Neb) 2.5 mg INHALE Q6H PRN PRN Reason: for wheezing Albuterol/Ipratropium (Albuterol/Iprat 2.5/0.5mg 3 Ml Ampul.Neb) 3 ml INHALE Q4H PRN PRN Reason: for wheezing Ascorbic Acid (Ascorbic Acid 500 Mg Tablet) 500 mg PO BID [facility] Last Admin: 02/11/23 20:54 Dose: 500 mg Documented By: WAYNE Aspirin (Aspirin 81 Mg Tab.Chew) 81 mg PO DAILY [facility] Last Admin: 02/11/23 08:08 Dose: 81 mg Documented By: ALYSSA Atorvastatin Calcium (Atorvastatin Calcium 80 Mg Tablet) 80 mg PO DAILY [facility] Last Admin: 02/11/23 08:08 Dose: 80 mg Documented By: ALYSSA Clotrimazole (Clotrimazole 1 % Cream 15 Gm Tube) 1 appl TOPICAL BID [facility]; Protocol Last Admin: 02/11/23 20:56 Dose: Not Given Documented By: WAYNE Non-Admin Reason: Patient Refused Cyanocobalamin (Cyanocobalamin (Vitamin B-12) 1,000 Mcg/Ml Vial) 1,000 mcg IM Q28D [facility] Dextrose (Dextrose 50 % 25 Gm/50 Ml Syringe) 25 gm IVPUSH Q15M PRN; Protocol PRN Reason: per Hypoglycemia Standing Ord. Duloxetine HCl (Duloxetine Hcl 30 Mg Capsule.) 30 mg PO DAILY [facility] Last Admin: 02/11/23 08:08 Dose: 30 mg Documented By: ALYSSA Ezetimibe (Ezetimibe 10 Mg Tablet) 10 mg PO DAILY [facility] Last Admin: 02/11/23 08:08 Dose: 10 mg Documented By: ALYSSA Enoxaparin Sodium (Enoxaparin Sodium 40 Mg/0.4 Ml Syringe) 40 mg SUBCUT Q24H [facility] Last Admin: 02/11/23 13:48 Dose: 40 mg Documented By: ALYSSA Fentanyl (Fentanyl Citrate/Pf 100 Mcg/2 Ml Vial) 25 mcg IVPUSH Q5M PRN; Protocol PRN Reason: Pain, Moderate(Pain Scale 4-6) Ferrous Sulfate (Ferrous Sulfate 324 Mg Tablet.) 324 mg PO DAILY [facility] Last Admin: 02/11/23 08:08 Dose: 324 mg Documented By: ALYSSA Fluticasone/Vilanterol (Fluticasone/Vilanterol 200/25 Blst.W.Dev) 1 puff INHALE RDAILY [facility] Last Admin: 02/12/23 07:51 Dose: 1 puff Documented By: BLASCRegino Furosemide (Furosemide 40 Mg Tablet) 40 mg PO DAILY [facility]; Protocol Last Admin: 02/11/23 08:07 Dose: 40 mg Documented By: ALYSSA Glucose (Glucose Gel 15 Gm Gel..Gram.) 15 gm PO Q15M PRN; Protocol PRN Reason: per Hypoglycemia Standing Ord. Hydromorphone HCl (Hydromorphone Hcl 1 Mg/Ml Syringe) 1 mg IVPUSH Q4H PRN; Protocol PRN Reason: Pain, Severe (Pain Scale 7-10) Last Admin: 02/12/23 02:09 Dose: 1 mg Documented By: WAYNE Hydromorphone HCl (Hydromorphone Hcl 0.5 Mg/0.5 Ml Syringe) 0.25 mg IVPUSH Q5M PRN; Protocol PRN Reason: Pain, Severe (Pain Scale 7-10) Promethazine HCl 12.5 mg/ (Sodium Chloride) 50.5 mls @ 202 mls/hr IV Q4H PRN PRN Reason: Nausea and Vomiting Insulin Human Lispro (Insulin Lispro 100 Unit/Ml 3 Ml Vial) 0 unit SUBCUT QIDACHS [facility]; Protocol Last Admin: 02/11/23 20:56 Dose: Not Given Documented By: WAYNE Non-Admin Reason: No Insulin Coverage Levothyroxine Sodium (Levothyroxine Sodium 100 Mcg Tablet) 100 mcg PO DAILY@0600 [facility] Last Admin: 02/12/23 05:53 Dose: 100 mcg Documented By: WAYNE Melatonin (Melatonin 3 Mg Tablet) 6 mg PO BEDTIME PRN PRN Reason: Insomnia Metoprolol Succinate (Metoprolol Succinate Er 50 Mg Tab.Er.24h) 50 mg PO DAILY [facility]; Protocol Last Admin: 02/11/23 08:08 Dose: 50 mg Documented By: ALYSSA Omeprazole (Omeprazole 20 Mg Capsule.Dr) 20 mg PO DAILY [facility] Last Admin: 02/11/23 08:08 Dose: 20 mg Documented By: ALYSSA Ondansetron HCl (Ondansetron Hcl 4 Mg/2 Ml Vial) 4 mg IVPUSH Q8H PRN PRN Reason: Nausea and Vomiting Last Admin: 02/11/23 17:18 Dose: 4 mg Documented By: ALYSSA Oxycodone HCl (Oxycodone Hcl Immed Release 5 Mg Tablet) 5 mg PO Q4H PRN PRN Reason: Pain, Moderate(Pain Scale 4-6) Last Admin: 02/11/23 06:04 Dose: 5 mg Documented By: CASTILLaverne Sodium Chloride (0.9 % Sodium Chloride Flush 3 Ml Syringe) 3 ml IVFLUSH QSHIFT [facility] Last Admin: 02/11/23 20:54 Dose: 3 ml Documented By: WAYNE Thiamine HCl (Thiamine Hcl 100 Mg Tablet) 100 mg PO DAILY [facility] Last Admin: 02/11/23 08:07 Dose: 100 mg Documented By: ALYSSA Tiotropium [place] (Tiotropium [place] 2.5 Mcg 1 Puff/2.5 Mcg Mist.Inhal) 2 puff INHALE RDAILY [facility] Last Admin: 02/12/23 07:51 Dose: 2 puff Documented By: FLORENTINO Vitamin D (Cholecalciferol (Vitamin D3) 25 Mcg Tablet) 25 mcg PO DAILY [facility] Last Admin: 02/11/23 08:08 Dose: 25 mcg Documented By: ALYSSA Labs 02/11/23 05:04 02/11/23 05:04 Labs: Laboratory Results - last 24 hr 02/11/23 02/11/23 02/11/23 11:02 16:21 19:28 POC Glucose 144 H 116 H 115 02/12/23 07:20 POC Glucose 89 Assessment and Plan (1) Closed fracture of right hip: Status: Acute Plan 82F PMH chronic systolic and diastolic CHF, chronic hypoxic respiratory failure on 2 L home O2 due to COPD, paroxysmal atrial fibrillation, diabetes, CRISTA, hypothyroid, coronary disease presented with mechanical fall complicated by right hip fracture Right hip fracture status post mechanical fall POD 2 right hip IMN 02/10/23 constipation miralax Chronic hypoxic respiratory failure secondary to COPD Continue home O2 Paroxysmal atrial fibrillation eliquis, metoprolol Coronary disease Continue eliquis, aspirin and statin Chronic systolic and diastolic CHF Continue metoprolol, Lasix Diabetes Continue insulin Hypothyroid Continue Synthroid CRISTA Refuses CPAP Obesity Weight loss recommended DVT prophylaxis- eliquis Full code reason for continued hospitalization: PT Quality Stroke Does the patient have a stroke diagnosis?: No VTE Prior VTE?: No VTE Risk Level:: Medical - moderate - high VTE Device Contraindication: N/A - Device Ordered VTE Drug Contraindication: Treatment Not Indicated
[2023-02-12] MEDS: Apixaban 5 MG TABLET PO (08:55)
[2023-02-12] MEDS: Thiamine HCL 100 MG TABLET PO (08:55)
[2023-02-12] MEDS: Furosemide 40 MG TABLET PO (08:55)
[2023-02-12] MEDS: Aspirin 81 MG TAB.CHEW PO (08:55)
[2023-02-12] MEDS: Metoprolol Succinate ER 50 MG TAB.ER.24H PO (08:55)
[2023-02-12] MEDS: Atorvastatin Calcium 80 MG TABLET PO (08:55)
[2023-02-12] MEDS: Ferrous Sulfate 324 MG TABLET.DR PO (08:55)
[2023-02-12] MEDS: Cholecalciferol (Vitamin D3) 25 MCG TABLET PO (08:55)
[2023-02-12] MEDS: DULoxetine HCl 30 MG CAPSULE.DR PO (08:55)
[2023-02-12] MEDS: Ezetimibe 10 MG TABLET PO (08:55)
[2023-02-12] MEDS: Omeprazole 20 MG CAPSULE.DR PO (08:55)
[2023-02-12] MEDS: Ascorbic Acid 500 MG TABLET PO (08:56)
[2023-02-12] MEDS: oxyCODONE HCl Immed Release 5 MG TABLET PO ×3 (08:56→17:24)
[2023-02-12] MEDS: polyethylene glycoL 3350 17 GM POWD.PACK PO (08:56)
[2023-02-12] MEDS: 0.9 % Sodium Chloride Flush 3 ML SYRINGE IVFLUSH (08:56)
[2023-02-12 09:10] VITALS: BP 146/63; PULSE 82; O2SAT 95
[2023-02-12 09:23] LABS: Hemoglobin 10.5 g/dl (12.0-16.0); Mean Corpuscular HGB Conc 30.9 g/dl (31.0-35.0); Mean Corpuscular Hemoglobin 28.8 pg (27.0-33.0); Mean Corpuscular Volume 93.2 fL (80.0-98.0); Mean Platelet Volume 10.4 fL (9.4-12.3); PLT CLUMP 1; Red Blood Count 3.65 X10*6/uL (4.20-5.50); Red Cell Distribution Width 13.5 % (11.0-16.0)
[2023-02-12 09:41] LABS: Anion Gap 15 (12-20); Blood Urea Nitrogen 28 mg/dL (9-16); Calcium 9.5 mg/dL (8.4-10.2); Carbon Dioxide 24 mmol/L (22-29); Chloride 102 mmol/L (96-108); Creatinine Clr Calc Pharmacy 38.3; Estimated Glomerular Filt Rate 42; Glucose Fasting 80 mg/dL (60-99); Potassium 5.1 mmol/L (3.3-5.1); Sodium 136 mmol/L (135-145)
[2023-02-12 10:23] LABS: Platelet Count 366 X10*3/uL (160-400); White Blood Count 9.6 X10*3/uL (4.8-10.8)
--- NOTE | 2023-02-12 10:39 | PM.PNORT ---
Subjective Subjective Date of Service: 02/12/23 Principal diagnosis: POD#2 s/p IMN Interval history: No overnight events Resting in bed attempted to work with PT but was unable to do more than sit at the edge of bed due to pain Physical Exam Vital Signs: Vital Signs: Last Vital Signs Temp 97.8 F 02/12/23 07:19 Pulse 82 02/12/23 07:19 Resp 18 02/12/23 07:51 BP 146/63 H 02/12/23 07:19 Pulse Ox 95 02/12/23 07:19 O2 Del Method Nasal Cannula 02/12/23 07:19 O2 Flow Rate 2 02/12/23 07:19 BMI result Body Mass Index 36.5 Extrem: Other: incision clean dry and intact. Jenn intact. No erythema or effusion. Calf supple nontender. Neurovascularly intact. Procedures Date of Service Date of Service: 02/12/23 Progress Note: A&P Assessment and plan (1) Closed fracture of right hip: Status: Acute Plan Right hip fracture s/p IMN doing well WBAT with PT SCDS and lvx Po pain control dispo planning Time Spent With Patient Time: Total time managing care of this patient today ____ minutes. Quality Stroke Does the patient have a stroke diagnosis?: No VTE Prior VTE?: No VTE Risk Level:: Medical - moderate - high VTE Device Contraindication: N/A - Device Ordered VTE Drug Contraindication: Treatment Not Indicated
--- NOTE | 2023-02-12 10:42 | MHC.CM.PN ---
Addendum entered by Betty Benson 02/12/23 15:58: PT AWARE OF DC TIME VM MESSAGE LEFT FOR PTS DAUGHTER/HCP, FABIOLA [phone] Addendum entered by Betty Benson 02/12/23 15:56: [facility] HAS ACCEPTED PT AND OBTAINED AUTH COPY OF HCP FOUND IN [place] PT WILL DC TO [facility] AT 1700 HOURS VIA [facility] Original Note: per rounds pt is ready for dc to rehab awaiting completion of physical therapy eval
[2023-02-12 11:24] LABS: Glucose, Whole Blood 112 mg/dL (60-115)
[2023-02-12 12:37] VITALS: BP 136/62; PULSE 84; RESP 20; TEMP 36.6; O2SAT 93
--- NOTE | 2023-02-12 15:41 | P.DS_ITS ---
DS: Providers Provider Date of Service: 02/12/23 Date of admission: 02/08/23 21:38 Primary care physician: Chantal Lay MD Consults: 02/08/23 22:26 Consult to Orthopedics Routine Consulting Provider: [facility] Reason for consultation: Right hip fracture DS: Diagnosis Discharge Diagnosis (1) Closed fracture of right hip: Status: Acute DS: Summary Hospital Course Hospital Course: from initial hpi: 82-year-old female with pertinent history of chronic hypoxemic respiratory failure secondary to COPD, AFib on Eliquis, osc-ylshvyu-ybxrjsnns diabetes mellitus, history of CRISTA noncompliant with CPAP, hypothyroidism, coronary artery disease, congestive heart failure with combined systolic and diastolic dysfunction who presents to the emergency department for evaluation after a fal l. Patient states as she was going to her mailbox, she lost her balance and fell. At baseline she uses a walker to ambulate but she was going to the mailbox with a cane. Did not lose consciousness prior to the fall. No jerking movement of extremities, no tongue bite. No chest pain or palpitations prior to the fall. Patient states she landed on her right hip and she has been having difficulty moving her right lower extremity and right hip pain after the fall. No fever, chills, chest discomfort, palpitations, shortness of breath, abdominal pain, changes in urinary or bowel habits. In the emergency department, imaging with subtrochanteric fracture of the right hip. hospital course: Patient was admitted for mechanical fall complicated by right hip fracture. She underwent right hip IMN on 02/10/2023. Course was unremarkable. She [facility] be discharged to [facility] for [facility]-term rehab. For constipation she was given MiraLax. For chronic hypoxic respiratory failure secondary to COPD she was continue on are 2 L home O2. For paroxysmal atrial fibrillation she was continued on apixaban and metoprolol. Coronary artery disease she was continued on apixaban, aspirin, statin. For chronic systolic and diastolic CHF she remained euvolemic and was continued on maintenance Lasix and metoprolol. For diabetes was continued on insulin. For hypothyroidism was continued on Synthroid. For CRISTA patient non compliant with CPAP. For obesity weight loss recommended. Time Attestation Discharge coordination time: Greater than 30 minutes Quality: Safe Use of Opioids Does Pt have an Active Cancer Diagnosis on the Problem List?: No Quality: Stroke Does the patient have a stroke diagnosis?: No Physical Exam Vital Signs: Vital Signs: Last Vital Signs Temp 97.8 F 02/12/23 12:37 Pulse 84 02/12/23 12:37 Resp 20 02/12/23 12:37 BP 136/62 02/12/23 12:37 Pulse Ox 93 02/12/23 12:37 O2 Del Method Nasal Cannula 02/12/23 12:37 O2 Flow Rate 2 02/12/23 12:37 BMI result Body Mass Index 36.5 Extrem: Other: incision clean dry and intact. Jenn intact. No erythema or effusion. Calf supple nontender. Neurovascularly intact. DS: Data Data Completed and Pending Labs on day of discharge: Laboratory Results - last 24 hr 02/11/23 02/11/23 02/12/23 16:21 19:28 07:20 WBC RBC Hgb Hct MCV MCH MCHC RDW Plt Count MPV Absolute Nucleated RBC Nucleated RBC % (auto) Sodium Potassium Chloride Carbon Dioxide Anion Gap BUN Creatinine Estim Creat Clear Calc Estimated GFR POC Glucose 116 H 115 89 Fasting Glucose Calcium 02/12/23 02/12/23 07:50 11:09 WBC 9.6 RBC 3.65 L Hgb 10.5 L Hct 34.0 L MCV 93.2 MCH 28.8 MCHC 30.9 L RDW 13.5 Plt Count 366 MPV 10.4 Absolute Nucleated RBC 0.000 Nucleated RBC % (auto) 0.0 Sodium 136 Potassium 5.1 Chloride 102 Carbon Dioxide 24 Anion Gap 15 BUN 28 H Creatinine 1.23 Estim Creat Clear Calc 38.3 Estimated GFR 42 POC Glucose 112 Fasting Glucose 80 Calcium 9.5 Discharge Plan Discharge Anticipated Discharge Date/Time: 02/12/23 15:38 Patient Disposition: Xfer SNF Discharge Diagnosis: hip fracture Referrals: Gretel Mccormick PA-C [Physician National Sales Director] - 2 Weeks (02/28/23 14:45 [facility] Orth[facility] Surgeons Gretel Mccormick PA-C) Physician,Unknown J [Physician] - 1 Week Discharge Medications: Continued (DME) stair lift and ramp See Rx Instructions .Route .MEDSUPPLY Qty: 1 0RF Rx Instructions: As directed (DME) blood-glucose meter [OneTouch Ultra2 Meter] Kit See Rx Instructions .Route Qty: 1 0RF Rx Instructions: As directed (DME) blood-glucose meter [OneTouch UltraMini] Kit See Rx Instructions .Route Qty: 1 0RF Rx Instructions: As directed ([facility]) Wheelchair Ramp See Rx Instructions .Route .MEDSUPPLY Qty: 1 0RF Rx Instructions: As directed ([facility]) Transfer Bench Misc See Rx Instructions .Route Qty: 1 0RF Rx Instructions: As directed for bath tub (DME) blood pressure monitor [Blood Pressure Kit] Kit See Rx Instructions .Route Qty: 1 0RF Rx Instructions: As directed ([facility]) [facility] Bed diagnosis I50.32 See Rx Instructions .Route .MEDSUPPLY Qty: 1 0RF Rx Instructions: As directed, GERMAN [address] ([facility]) Nebulizer supplies See Rx Instructions .Route .MEDSUPPLY Qty: 3 3RF Rx Instructions: As directed ([facility]) Air mattress See Rx Instructions .Route .MEDSUPPLY Qty: 1 0RF Rx Instructions: As directed nitroglycerin 0.4 mg tablet, sublingual 0.4 mg sublingual Q5M PRN (Reason: for angina) 90 Days Qty: 25 0RF docusate sodium 100 mg capsule 100 mg PO BID PRN (Reason: consti) Qty: 60 11RF ascorbic acid (vitamin C) 500 mg tablet 500 mg PO BID Qty: 180 3RF Eliquis 5 mg tablet 5 mg PO BID 90 Days Qty: 180 3RF (DME) FOUR WHEEL SCOOTER See Rx Instructions .Route .MEDSUPPLY Qty: 1 0RF Rx Instructions: As directed clotrimazole 1 % cream See Rx Instructions topical BID Qty: 45 11RF Rx Instructions: apply to affected area topical 2 times a day; ondansetron HCl 8 mg tablet 8 mg PO Q12H PRN (Reason: nausea and vomiting) Qty: 30 0RF furosemide 40 mg tablet 40 mg PO QAM Qty: 90 3RF (DME) pads for bedsores 7 7/8 X 11 3/4 pad See Rx Instructions .Route Qty: 50 11RF Rx Instructions: As directed Spiriva with HandiHaler 18 mcg capsule, w/inhalation device 1 cap inhalation DAILY Qty: 30 0RF Rx Instructions: puncture 1 cap using device; one dose = 2 inhalations albuterol sulfate 2.5 mg /3 mL (0.083 %) solution for nebulization 2.5 mg inhalation Q6H PRN (Reason: for wheezing) Qty: 450 5RF duloxetine 30 mg capsule,delayed release(DR/EC) 30 mg PO DAILY Qty: 90 3RF thiamine HCl (vitamin B1) 100 mg tablet 100 mg PO DAILY Qty: 90 2RF ipratropium-albuterol 0.5 mg-3 mg(2.5 mg base)/3 mL solution for nebulization 3 ml inhalation Q4-6H PRN (Reason: for wheezing) Qty: 180 3RF fluticasone propion-salmeterol 500-50 mcg/dose blister with device 1 inh inhalation BID Qty: 60 11RF (DME) pressure release mattress See Rx Instructions .Route .MEDSUPPLY Qty: 1 0RF Rx Instructions: As directed Dexilant 30 mg capsule,biphase delayed releas 30 mg PO DAILY Qty: 90 3RF meclizine 12.5 mg tablet 12.5 mg PO BID PRN (Reason: for motion sickness) Qty: 60 5RF ezetimibe 10 mg tablet 10 mg PO DAILY Qty: 90 3RF levothyroxine 100 mcg tablet 100 mcg PO QAM Qty: 90 3RF (DME) lancets 33 gauge misc See Rx Instructions .Route Qty: 100 0RF Rx Instructions: test daily (DME) OneTouch Ultra Test Strip See Rx Instructions .ROUTE .COMPLEX Qty: 100 3RF Dose Instruction: DIRECTED TEST BLOOD GLUCOSE DAILY Rx Instructions: DIRECTED TEST BLOOD GLUCOSE DAILY cyanocobalamin (vitamin B-12) 1,000 mcg/mL solution 1,000 mcg IM Q4W 90 Days Qty: 4 11RF Trulicity 3 mg/0.5 mL pen injector 3 mg subcut QWEEK Qty: 2 11RF albuterol sulfate 90 mcg/actuation HFA aerosol inhaler 2 puff PO Q4H PRN (Reason: for respiratory distress) Qty: 8.5 5RF (DME) lancets Misc See Rx Instructions .Route Qty: 100 3RF Rx Instructions: As directed test blood glucose daily ferrous sulfate 325 mg (65 mg iron) Tablet 325 mg PO DAILY aspirin 81 mg Tablet 81 mg PO DAILY cholecalciferol (vitamin D3) [Vitamin D3] 25 mcg (1,000 unit) Capsule 25 mcg PO DAILY dicyclomine 10 mg Capsule 10 - 20 mg PO QID PRN (Reason: Abdominal Pain) metoprolol succinate 50 mg tablet extended release 24 hr 50 mg PO DAILY acyclovir 5 % ointment 1 appl topical 6XD PRN (Reason: genital lesions) Rx Instructions: apply to genital lesions 6 times a day for 7 days (DME) hospital bed See Rx Instructions .Route .MEDSUPPLY Qty: 1 0RF Rx Instructions: As directed atorvastatin 80 mg tablet 80 mg PO DAILY 90 Days Qty: 90 3RF Discharge Orders: Discharge Order (Routine); Ordered 02/12/23 Ordered By: Rosales Mccarthy Diet: Advance to usual diet Activity on Discharge: As tolerated Stand Alone Forms: Patient Portal Discharge page Care Plan Goals: recovery Health Concerns: hip fracture Plan of Treatment: rehab Assessment: Gait training, strengthening, ADLs Keep dressing clean,dry and intact-no showering or tub baths Follow up with Orthopedics in 2 weeks
[2023-02-12 15:45] VITALS: BP 149/69; PULSE 90; RESP 20; TEMP 36.8; O2SAT 96
[2023-02-12 16:17] LABS: Glucose, Whole Blood 109 mg/dL (60-115)
--- NOTE | 2023-03-20 15:50 | P.OP_ITS ---
Operative Note Operative Note Date of Service: 03/20/23 Narrative: Date of Service: 02/10/23 Pre-op diagnosis: Right hip fracture Post-op diagnosis: same Procedure: IMN right hip Implants: Unruly 125 deg [id number] IMN with 100 mm hip screw and 37.5 mm distal interlock Surgeon: Greg Covarrubias MD Anesthesia: GETA and local Was an Order Manager used for this Procedure?: No Estimated blood loss (mL): 100 IV fluids (mL): 1,000 Pathology: none sent Condition: stable Disposition: PACU Procedure in detail: Patient was brought to the operating room and prepped and draped in standard sterile fashion. Time-out was called to identify proper site procedure proper surgeon and IV antibiotics per weight were administered. She was positioned on the fracture table and a traction and slight internal rotation were performed and biplanar fluoroscopy confirmed initial fracture reduction. I then made a stab incision proximal to the greater trochanter in using a guidewire made a entry point just lateral to the tip of the greater trochanter and placed a guidewire into the femoral metadiaphysis. I then over-reamed with 15 mm Reamer placed my ball-tip guidewire down distally in the femur and measured my length. I selected a 125 deg [id number] mm im nail and reamed up to a 13. I then placed the nail. I then turned my attention to the hip screw where I used a guidewire and a tip apex distance of less than 1.5 measured a 100mm hip screw. I then pre drilled and placed a hip screw using biplanar fluoroscopy. Once I was satisfied with the position of the hip screw I turned my attention to the distal aspect of the nail. Using perfect [place] technique I placed 1 static distal interlocking screw in standard AO technique. I then removed all I then placed my set screw proximally and removed all extraneous instrumentation. Final biplanar radiographs were taken. I was satisfied with the position of the hardware and the fracture reduction. I then copiously irrigated closed with absorbable sutures anisa and injected 30 mL of into the area of the incisions. Traction was let down patient was placed in sterile dressing awakened from anesthesia brought to recovery room stable condition there were no known complications.
== END 2023-02-12 18:15 | disposition skilled nursing facility (03) | DRG 481 ==
LOC: HO.ED 20:35 → HO.EDOVER 21:47 → HO.S3 22:36
PROVIDERS: Orthopaedic Surgery; Admitting Provider Student in an Organized Health Care Education/Training Program; Emergency Provider Emergency Medicine; PCP Internal Medicine; Visit Provider Internal Medicine
PROC: 0QS636Z Reposition Right Upper Femur with Intramedullary Internal Fixation Device, Percutaneous Approach (ICD-10-PCS; principal; 2023-02-10 09:00)
DX: S72.24XA Nondisplaced subtrochanteric fracture of right femur, initial encounter for closed fracture (principal); I50.42 Chronic combined systolic (congestive) and diastolic (congestive) heart failure; J96.11 Chronic respiratory failure with hypoxia; W19.XXXA Unspecified fall, initial encounter; I25.10 Atherosclerotic heart disease of native coronary artery without angina pectoris; J44.9 Chronic obstructive pulmonary disease, unspecified; K59.00 Constipation, unspecified; I48.0 Paroxysmal atrial fibrillation; E66.9 Obesity, unspecified; Z68.36 Body mass index [BMI] 36.0-36.9, adult; E03.9 Hypothyroidism, unspecified; Z99.81 Dependence on supplemental oxygen; Z91.199 Patient's noncompliance with other medical treatment and regimen due to unspecified reason; Z23 Encounter for immunization; Z87.891 Personal history of nicotine dependence; Z79.01 Long term (current) use of anticoagulants; Z79.51 Long term (current) use of inhaled steroids; Z79.890 Hormone replacement therapy; Z79.899 Other long term (current) drug therapy
CPT/HCPCS: 36415; 70450; 71045; 72125; 72170; 73552; 74018; 80048; 82947; 83880; 85025; 85027; 86850; 86900; 86901; 90686; 93005; 97161; 99024; 99285; C1713; C1769; J0131; J0690; J1170; J1650; J2270; J2371; J2405; J2704

== ENCOUNTER → 2023-02-08 18:57 | Outpatient (BNV) | payer OTHER, SELFPAY | PROVIDERS: Admitting Provider Student in an Organized Health Care Education/Training Program; Emergency Provider Emergency Medicine; Visit Provider Internal Medicine Cardiovascular Disease | DX: R00.0 Tachycardia, unspecified (principal) | CPT/HCPCS: 93010 ==

== ENCOUNTER → 2023-02-08 21:38 | Outpatient (BNV) | payer OTHER, SELFPAY | PROVIDERS: Admitting Provider Student in an Organized Health Care Education/Training Program; Emergency Provider Emergency Medicine; Visit Provider Physician Assistant | DX: S72.141A Displaced intertrochanteric fracture of right femur, initial encounter for closed fracture (principal) | CPT/HCPCS: 27245; 99231 ==

== ENCOUNTER → 2023-02-08 21:38 | Outpatient (BNV) | payer OTHER, SELFPAY | PROVIDERS: Admitting Provider Student in an Organized Health Care Education/Training Program; Emergency Provider Emergency Medicine; Visit Provider Student in an Organized Health Care Education/Training Program | DX: S72.001A Fracture of unspecified part of neck of right femur, initial encounter for closed fracture (principal) | CPT/HCPCS: 99222; 99232; 99233; 99239 ==

== ENCOUNTER 2023-02-14 05:49 | Outpatient (REF) | payer OTHER, SELFPAY ==
[2023-02-14 05:52] LABS: MANUAL DIFF FLAG NO
[2023-02-14 06:19] LABS: Basophils Absolute Auto 0.1 X10*3/uL (0.0-0.2); Basophils Percent Auto 0.6 % (0-2); Eosinophils Absolute Auto 0.2 X10*3/uL (0.0-0.4); Eosinophils Percent Auto 1.9 % (0-4); Hematocrit 30.1 % (37.0-47.0); Hemoglobin 9.5 g/dl (12.0-16.0); Imm Gran Abs Auto 0.27 X10*3/uL (0.00-0.03); Imm Gran Pct Auto 3.1 % (0.0-0.4); Lymphocytes Percent Auto 23.6 % (20-40); Mean Corpuscular HGB Conc 31.6 g/dl (31.0-35.0); Mean Corpuscular Hemoglobin 28.7 pg (27.0-33.0); Mean Corpuscular Volume 90.9 fL (80.0-98.0); Mean Platelet Volume 9.6 fL (9.4-12.3); Monocytes Percent Auto 11.1 % (2-11); NRBC Pct Auto 0.3 /100WBC (0.0-0.2); Neutrophils Absolute Auto 5.2 x10*3/uL (2.0-8.3); Neutrophils Percent Auto 59.7 % (45-73); Platelet Count 398 X10*3/uL (160-400); Red Blood Count 3.31 X10*6/uL (4.20-5.50); Red Cell Distribution Width 13.9 % (11.0-16.0); White Blood Count 8.6 X10*3/uL (4.8-10.8)
[2023-02-14 06:28] LABS: Alanine Aminotransferase 7 U/L (0-31); Albumin Level 2.8 g/dL (3.5-5.0); Alkaline Phosphatase 140 U/L (39-117); Anion Gap 15 (12-20); Aspartate Amino Transferase 21 U/L (5-31); Bilirubin Total 0.7 mg/dL (0.0-1.0); Blood Urea Nitrogen 24 mg/dL (9-16); Calcium 9.2 mg/dL (8.4-10.2); Carbon Dioxide 29 mmol/L (22-29); Chloride 100 mmol/L (96-108); Estimated Glomerular Filt Rate > 60; Glucose Random 93 mg/dL (60-115); Potassium 3.9 mmol/L (3.3-5.1); Sodium 140 mmol/L (135-145); Total Protein 6.1 g/dL (6.5-8.0)
== END 2023-02-14 05:50 | disposition home or self-care (01) ==
LOC: HO.MMNH1L 05:49
PROVIDERS: Visit Provider Family Medicine
DX: E11.9 Type 2 diabetes mellitus without complications (principal); I11.0 Hypertensive heart disease with heart failure; I50.9 Heart failure, unspecified
CPT/HCPCS: 36415; 80053; 85025

== ENCOUNTER 2023-02-19 06:31 | Outpatient (REF) | payer OTHER, SELFPAY ==
[2023-02-19 06:18] LABS: MANUAL DIFF FLAG NO
[2023-02-19 06:26] LABS: Basophils Percent Auto 0.2 % (0-2); Eosinophils Absolute Auto 0.2 X10*3/uL (0.0-0.4); Eosinophils Percent Auto 1.6 % (0-4); Hematocrit 32.7 % (37.0-47.0); Hemoglobin 10.3 g/dl (12.0-16.0); Imm Gran Abs Auto 0.26 X10*3/uL (0.00-0.03); Imm Gran Pct Auto 2.4 % (0.0-0.4); Lymphocytes Percent Auto 27.4 % (20-40); Mean Corpuscular HGB Conc 31.5 g/dl (31.0-35.0); Mean Corpuscular Hemoglobin 28.8 pg (27.0-33.0); Mean Corpuscular Volume 91.3 fL (80.0-98.0); Mean Platelet Volume 9.8 fL (9.4-12.3); Monocytes Absolute Auto 1.4 X10*3/uL (0.1-1.2); Neutrophils Absolute Auto 6.1 x10*3/uL (2.0-8.3); Neutrophils Percent Auto 55.4 % (45-73); Platelet Count 370 X10*3/uL (160-400); Red Blood Count 3.58 X10*6/uL (4.20-5.50); Red Cell Distribution Width 14.5 % (11.0-16.0); White Blood Count 10.9 X10*3/uL (4.8-10.8)
[2023-02-19 06:54] LABS: Anion Gap 16 (12-20); Blood Urea Nitrogen 31 mg/dL (9-16); Calcium 9.9 mg/dL (8.4-10.2); Carbon Dioxide 34 mmol/L (22-29); Chloride 97 mmol/L (96-108); Estimated Glomerular Filt Rate 52; Glucose Random 75 mg/dL (60-115); Potassium 3.8 mmol/L (3.3-5.1); Sodium 143 mmol/L (135-145)
== END 2023-02-19 06:32 | disposition home or self-care (01) ==
LOC: HO.MMNH1L 06:31
PROVIDERS: Visit Provider Family Medicine
DX: E11.9 Type 2 diabetes mellitus without complications (principal); I11.0 Hypertensive heart disease with heart failure; I50.9 Heart failure, unspecified
CPT/HCPCS: 36415; 80048; 85025

== ENCOUNTER 2023-02-25 10:39 | Outpatient (REF) | payer OTHER, SELFPAY | END 2023-02-25 10:40 | disposition home or self-care (01) | LOC: HO.MMNH1L 10:39 | PROVIDERS: Visit Provider Family Medicine | DX: E11.9 Type 2 diabetes mellitus without complications (principal); I11.0 Hypertensive heart disease with heart failure; I50.9 Heart failure, unspecified | CPT/HCPCS: 36415; 80048; 85025 ==

== ENCOUNTER 2023-02-28 12:45 | Outpatient (REF) | payer OTHER, SELFPAY ==
--- NOTE | ~2023-02-28 | XR_ITS ---
EXAMINATION: XR FEMUR, RIGHT CLINICAL INFORMATION: Displaced intertrochanteric fracture right femur. COMPARISON: Right femur 02/08/2023. TECHNIQUE: AP and lateral views of the right femur were obtained. FINDINGS: An intramedullary higinio and screw is present. Alignment of fracture fragments from the comminuted intertrochanteric fracture seen on 02/08/2023 is significantly improved. There is no fracture healing as of yet. The lesser trochanter remains avulsed slightly. XR/XR femur RT 2V IMPRESSION: Status post ORIF right intertrochanteric fracture.
== END 2023-02-28 12:46 | disposition home or self-care (01) ==
LOC: HO.HOSX 12:45
PROVIDERS: Visit Provider Physician Assistant
DX: S72.001D Fracture of unspecified part of neck of right femur, subsequent encounter for closed fracture with routine healing (principal); S72.142D Displaced intertrochanteric fracture of left femur, subsequent encounter for closed fracture with routine healing; X58.XXXD Exposure to other specified factors, subsequent encounter
CPT/HCPCS: 73552; 99212

== ENCOUNTER 2023-02-28 14:35 | Outpatient (AMB) | payer OTHER, SELFPAY ==
--- NOTE | 2023-02-28 14:54 | A.OFFVIS_ITS ---
Intake Intake Visit Reasons: PO-Rt hip IMN 02/10/23 NE Intake Note: Carly an 82 year old female presents today in a stretcher for a post operative right hip IMN, DOS 02/10/23 NE. Patient reports that she is doing well, states having soreness in her hip. Allergies morphine [MORPHINE] Allergy (Unknown, Verified 02/28/23 14:55) RASH pregabalin [From LYRICA] Allergy (Unknown, Verified 02/28/23 14:55) NAUSEA, felt high on drugs HPI PO-Rt hip IMN 02/10/23 NE HPI Details 82-year-old female who returns to the [facility] today in a stretcher for post-op right hip IMN, 02/10/[address] Covarrubias. She continues to have soreness in her hip but is doing well overall. She is still in rehab , working with therapy to gait traing. She has no other concerns today. 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 Low back pain Respiratory failure with hypoxia and hypercapnia Lower extremity weakness Nasal congestion Otitis externa Coronary artery disease Restrictive lung disease Diarrhea History of spinal stenosis Fibromyalgia Obesity (BMI 30-39.9) Carpal tunnel syndrome Abdominal aortic aneurysm Hypothyroid Obstructive sleep apnea Congestive heart failure Pernicious anemia Paroxysmal atrial fibrillation COPD (chronic obstructive pulmonary disease) DVT (deep venous thrombosis) Diverticulitis GERD (gastroesophageal reflux disease) HTN (hypertension) Clostridium difficile colitis CAD (coronary artery disease) Hypercholesterolemia Surgical History S/P BREANN-BSO (total abdominal hysterectomy and bilateral salpingo-oophorectomy) History of arthroplasty of left shoulder Hx of cholecystectomy H/O angioplasty Hx of appendectomy H/O cardiac catheterization Family History Father Hypertension CVD (cardiovascular disease) Mother Colon cancer Sister Leukemia Sister Colon cancer Son Lung cancer Colon polyps Social History Household Members: None Housing: Apartment Do you presently have visiting nurse or other home services: Yes (priscila JEAN PAUL) Alcohol intake: never Patient Tobacco Use Status: Former Tobacco user Tobacco use type: Cigarette Years Smoked: stopped 2009 e-Cigarette/Vaping Use: Never Used Second Hand Smoke Exposure: No Advance Directives Date on File: 10/10/21 service: No Current occupational status: retired Current occupational exposures/hazards: No Cognitive needs: No Hearing needs: No Vision needs: Yes Review of Systems Const All systems reviewed & are unremarkable except as noted in HPI and below Physical Exam Extrem Other: Right hip Incision clean, dry and intact. No erythema or drainage. She has mild discomfort with hip flexion. NVI. Results Reviewed Results Reviewed: Xrays were obtained in the office today and personally reviewed by me of the right hip show intact IMN with stable fracture pattern Assessment & Plan Assessment & Plan (1) Closed fracture of right hip: Comment: 2022 fall subtrochanteric fracture Code(s): S72.001A - Fracture of unspecified part of neck of right femur, initial encounter for closed fracture Qualifiers: Encounter type: subsequent encounter Fracture healing: with routine healing Qualified Code(s): S72.001D - Fracture of unspecified part of neck of right femur, subsequent encounter for closed fracture with routine healing Plan Jenn removed, steri strips applied. She will continue working with PT and OT for gait training and strength . She should be walking with a walker with assistance. She will f/u in 4 weeks, sooner if needed. Orders: Orders XR femur RT 2V Today S72.142A - Displaced intertrochanteric fracture of left femur, initial encounter for closed fracture Patient Instructions: Scribed for Gretel Mccormick PA-C, by Brant Ross senior medical writer, on 02/28/2023 at 2:45 PM EST. I, Gretel Mccormick PA-C, have personally reviewed and agree with the information entered by the scribe. Coding Level of Care Code Global (89028) Diagnoses Closed fracture of right hip with routine healing, subsequent encounter S72.001D Encounter type: subsequent encounter Fracture healing: with routine healing
== END 2023-02-28 15:37 | disposition home or self-care (01) ==
PROVIDERS: Visit Provider Physician Assistant
DX: S72.141A Displaced intertrochanteric fracture of right femur, initial encounter for closed fracture (principal)
CPT/HCPCS: 99024

== ENCOUNTER 2023-03-01 05:58 | Outpatient (REF) | payer OTHER, SELFPAY ==
[2023-03-01 12:53] LABS: Influenza A PCR NEGATIVE (Negative); Influenza B PCR NEGATIVE (Negative); Resp Syncy Virus RNA Qual PCR NEGATIVE (Negative); SARS COV2 PCR INHOUSE NEGATIVE (Negative)
== END 2023-03-01 05:59 | disposition home or self-care (01) ==
LOC: HO.MMNH1L 05:58
PROVIDERS: Visit Provider Family Medicine
DX: S72.041D Displaced fracture of base of neck of right femur, subsequent encounter for closed fracture with routine healing (principal); X58.XXXD Exposure to other specified factors, subsequent encounter; E66.01 Morbid (severe) obesity due to excess calories; J96.11 Chronic respiratory failure with hypoxia; Z20.828 Contact with and (suspected) exposure to other viral communicable diseases; Z11.52 Encounter for screening for COVID-19
CPT/HCPCS: 0241U

== ENCOUNTER 2023-03-04 07:00 | Outpatient (REF) | payer OTHER, SELFPAY ==
[2023-03-04 06:28] LABS: MANUAL DIFF FLAG NO
[2023-03-04 07:01] LABS: Basophils Percent Auto 0.4 % (0-2); Eosinophils Absolute Auto 0.2 X10*3/uL (0.0-0.4); Hematocrit 31.9 % (37.0-47.0); Hemoglobin 9.8 g/dl (12.0-16.0); Imm Gran Abs Auto 0.04 X10*3/uL (0.00-0.03); Imm Gran Pct Auto 0.5 % (0.0-0.4); Lymphocytes Absolute Auto 2.9 X10*3/uL (1.2-4.9); Lymphocytes Percent Auto 37.5 % (20-40); Mean Corpuscular HGB Conc 30.7 g/dl (31.0-35.0); Mean Corpuscular Hemoglobin 28.9 pg (27.0-33.0); Mean Corpuscular Volume 94.1 fL (80.0-98.0); Mean Platelet Volume 10.1 fL (9.4-12.3); Monocytes Absolute Auto 0.8 X10*3/uL (0.1-1.2); Monocytes Percent Auto 9.8 % (2-11); Neutrophils Absolute Auto 3.8 x10*3/uL (2.0-8.3); Neutrophils Percent Auto 49.8 % (45-73); Platelet Count 325 X10*3/uL (160-400); Red Blood Count 3.39 X10*6/uL (4.20-5.50); Red Cell Distribution Width 15.9 % (11.0-16.0); White Blood Count 7.7 X10*3/uL (4.8-10.8)
[2023-03-04 07:19] LABS: Anion Gap 12 (12-20); Blood Urea Nitrogen 22 mg/dL (9-16); Calcium 9.5 mg/dL (8.4-10.2); Carbon Dioxide 31 mmol/L (22-29); Chloride 102 mmol/L (96-108); Estimated Glomerular Filt Rate > 60; Glucose Random 94 mg/dL (60-115); Potassium 3.1 mmol/L (3.3-5.1); Sodium 142 mmol/L (135-145)
== END 2023-03-04 07:01 | disposition home or self-care (01) ==
LOC: HO.MMNH1L 07:00
PROVIDERS: Visit Provider Family Medicine
DX: E11.9 Type 2 diabetes mellitus without complications (principal); I11.0 Hypertensive heart disease with heart failure; I50.9 Heart failure, unspecified
CPT/HCPCS: 36415; 80048; 85025

== ENCOUNTER 2023-03-05 14:54 | Outpatient (REF) | payer OTHER, SELFPAY ==
[2023-03-05 15:14] LABS: Appearance Urine Clear; Color Urine Yellow; Glucose Urine UA Negative (Negative); Leukocyte Esterase Urine Negative (Negative); Nitrite Urine Negative (Negative); Urine Blood Negative (Negative); Urine Ketones Negative (Negative); Urine Protein Negative (Neg-Trace)
== END 2023-03-05 14:55 | disposition home or self-care (01) ==
LOC: HO.MMNH1L 14:54
PROVIDERS: Visit Provider Family Medicine
DX: E11.9 Type 2 diabetes mellitus without complications (principal); S72.041D Displaced fracture of base of neck of right femur, subsequent encounter for closed fracture with routine healing; J96.11 Chronic respiratory failure with hypoxia; R82.90 Unspecified abnormal findings in urine
CPT/HCPCS: 81003; 87086

== ENCOUNTER 2023-03-11 06:25 | Outpatient (REF) | payer OTHER, SELFPAY ==
[2023-03-11 06:10] LABS: MANUAL DIFF FLAG NO
[2023-03-11 06:45] LABS: Basophils Percent Auto 0.4 % (0-2); Eosinophils Absolute Auto 0.2 X10*3/uL (0.0-0.4); Eosinophils Percent Auto 2.2 % (0-4); Hematocrit 30.2 % (37.0-47.0); Hemoglobin 9.2 g/dl (12.0-16.0); Imm Gran Abs Auto 0.03 X10*3/uL (0.00-0.03); Imm Gran Pct Auto 0.4 % (0.0-0.4); Lymphocytes Absolute Auto 3.1 X10*3/uL (1.2-4.9); Lymphocytes Percent Auto 44.7 % (20-40); Mean Corpuscular HGB Conc 30.5 g/dl (31.0-35.0); Mean Corpuscular Hemoglobin 29.6 pg (27.0-33.0); Mean Corpuscular Volume 97.1 fL (80.0-98.0); Mean Platelet Volume 10.1 fL (9.4-12.3); Monocytes Absolute Auto 0.8 X10*3/uL (0.1-1.2); Monocytes Percent Auto 11.4 % (2-11); Neutrophils Absolute Auto 2.9 x10*3/uL (2.0-8.3); Neutrophils Percent Auto 40.9 % (45-73); Platelet Count 249 X10*3/uL (160-400); Red Blood Count 3.11 X10*6/uL (4.20-5.50)
[2023-03-11 06:49] LABS: Anion Gap 11 (12-20); Blood Urea Nitrogen 22 mg/dL (9-16); Calcium 9.1 mg/dL (8.4-10.2); Carbon Dioxide 30 mmol/L (22-29); Chloride 105 mmol/L (96-108); Estimated Glomerular Filt Rate > 60; Glucose Random 88 mg/dL (60-115); Potassium 3.1 mmol/L (3.3-5.1); Sodium 143 mmol/L (135-145)
== END 2023-03-11 06:26 | disposition home or self-care (01) ==
LOC: HO.MMNH1L 06:25
PROVIDERS: Visit Provider Family Medicine
DX: E11.9 Type 2 diabetes mellitus without complications (principal); I11.0 Hypertensive heart disease with heart failure; I50.9 Heart failure, unspecified
CPT/HCPCS: 36415; 80048; 85025

== ENCOUNTER 2023-03-13 06:07 | Outpatient (REF) | payer OTHER, SELFPAY ==
[2023-03-13 06:49] LABS: Anion Gap 14 (12-20); Blood Urea Nitrogen 21 mg/dL (9-16); Calcium 9.3 mg/dL (8.4-10.2); Carbon Dioxide 31 mmol/L (22-29); Chloride 103 mmol/L (96-108); Estimated Glomerular Filt Rate > 60; Glucose Random 96 mg/dL (60-115); Potassium 4.2 mmol/L (3.3-5.1); Sodium 144 mmol/L (135-145)
== END 2023-03-13 06:08 | disposition home or self-care (01) ==
LOC: HO.MMNH1L 06:07
PROVIDERS: Visit Provider Family Medicine
DX: S72.041D Displaced fracture of base of neck of right femur, subsequent encounter for closed fracture with routine healing (principal); E11.9 Type 2 diabetes mellitus without complications; X58.XXXD Exposure to other specified factors, subsequent encounter
CPT/HCPCS: 36415; 80048

== ENCOUNTER 2023-03-18 06:35 | Outpatient (REF) | payer OTHER, SELFPAY ==
[2023-03-18 06:24] LABS: MANUAL DIFF FLAG NO
[2023-03-18 07:18] LABS: Basophils Percent Auto 0.3 % (0-2); Eosinophils Absolute Auto 0.2 X10*3/uL (0.0-0.4); Eosinophils Percent Auto 2.4 % (0-4); Hematocrit 29.6 % (37.0-47.0); Hemoglobin 9.2 g/dl (12.0-16.0); Imm Gran Abs Auto 0.04 X10*3/uL (0.00-0.03); Imm Gran Pct Auto 0.6 % (0.0-0.4); Lymphocytes Absolute Auto 2.6 X10*3/uL (1.2-4.9); Lymphocytes Percent Auto 38.2 % (20-40); Mean Corpuscular HGB Conc 31.1 g/dl (31.0-35.0); Mean Corpuscular Hemoglobin 29.5 pg (27.0-33.0); Mean Corpuscular Volume 94.9 fL (80.0-98.0); Mean Platelet Volume 9.7 fL (9.4-12.3); Monocytes Absolute Auto 0.7 X10*3/uL (0.1-1.2); Monocytes Percent Auto 9.7 % (2-11); Neutrophils Absolute Auto 3.3 x10*3/uL (2.0-8.3); Neutrophils Percent Auto 48.8 % (45-73); Platelet Count 235 X10*3/uL (160-400); Red Blood Count 3.12 X10*6/uL (4.20-5.50); Red Cell Distribution Width 15.6 % (11.0-16.0); White Blood Count 6.7 X10*3/uL (4.8-10.8)
[2023-03-18 07:31] LABS: Alanine Aminotransferase 13 U/L (0-31); Albumin Level 2.9 g/dL (3.5-5.0); Alkaline Phosphatase 126 U/L (39-117); Anion Gap 12 (12-20); Aspartate Amino Transferase 20 U/L (5-31); Bilirubin Total 0.4 mg/dL (0.0-1.0); Blood Urea Nitrogen 20 mg/dL (9-16); Calcium 9.1 mg/dL (8.4-10.2); Carbon Dioxide 29 mmol/L (22-29); Chloride 106 mmol/L (96-108); Estimated Glomerular Filt Rate > 60; Glucose Random 87 mg/dL (60-115); Potassium 3.3 mmol/L (3.3-5.1); Sodium 144 mmol/L (135-145); Total Protein 5.5 g/dL (6.5-8.0)
== END 2023-03-18 06:36 | disposition home or self-care (01) ==
LOC: HO.MMNH1L 06:35
PROVIDERS: Visit Provider Family Medicine
DX: E11.9 Type 2 diabetes mellitus without complications (principal); I11.0 Hypertensive heart disease with heart failure; I50.9 Heart failure, unspecified
CPT/HCPCS: 36415; 80053; 85025

== ENCOUNTER 2023-03-19 07:18 | Outpatient (REF) | payer OTHER, SELFPAY ==
[2023-03-20 10:28] LABS: CDiff Gene PCR NEGATIVE (Negative)
== END 2023-03-19 07:19 | disposition home or self-care (01) ==
LOC: HO.MMNH1L 07:18
PROVIDERS: Visit Provider Family Medicine
DX: S72.041D Displaced fracture of base of neck of right femur, subsequent encounter for closed fracture with routine healing (principal); E66.01 Morbid (severe) obesity due to excess calories; E11.9 Type 2 diabetes mellitus without complications; X58.XXXD Exposure to other specified factors, subsequent encounter
CPT/HCPCS: 87493

== ENCOUNTER 2023-03-20 06:22 | Outpatient (REF) | payer OTHER, SELFPAY | END 2023-03-20 06:23 | disposition home or self-care (01) | LOC: HO.MMNH1L 06:22 | PROVIDERS: Visit Provider Family Medicine | DX: Z13.89 Encounter for screening for other disorder (principal) ==

== ENCOUNTER 2023-03-21 10:28 | Outpatient (REF) | payer OTHER, SELFPAY ==
[2023-03-21 12:55] LABS: CDiff Gene PCR NEGATIVE (Negative)
== END 2023-03-21 10:29 | disposition home or self-care (01) ==
LOC: HO.MMNH1L 10:28
PROVIDERS: Visit Provider Family Medicine
DX: E11.9 Type 2 diabetes mellitus without complications (principal); J96.11 Chronic respiratory failure with hypoxia; I50.42 Chronic combined systolic (congestive) and diastolic (congestive) heart failure
CPT/HCPCS: 87493

== ENCOUNTER 2023-03-25 06:30 | Outpatient (REF) | payer OTHER, SELFPAY ==
[2023-03-25 06:07] LABS: MANUAL DIFF FLAG NO
[2023-03-25 06:51] LABS: Basophils Percent Auto 0.4 % (0-2); Eosinophils Absolute Auto 0.1 X10*3/uL (0.0-0.4); Eosinophils Percent Auto 1.5 % (0-4); Hematocrit 30.4 % (37.0-47.0); Hemoglobin 9.5 g/dl (12.0-16.0); Imm Gran Abs Auto 0.04 X10*3/uL (0.00-0.03); Imm Gran Pct Auto 0.5 % (0.0-0.4); Lymphocytes Absolute Auto 3.2 X10*3/uL (1.2-4.9); Lymphocytes Percent Auto 39.5 % (20-40); Mean Corpuscular HGB Conc 31.3 g/dl (31.0-35.0); Mean Corpuscular Hemoglobin 29.7 pg (27.0-33.0); Mean Platelet Volume 9.6 fL (9.4-12.3); Monocytes Absolute Auto 0.9 X10*3/uL (0.1-1.2); Monocytes Percent Auto 11.1 % (2-11); Neutrophils Absolute Auto 3.8 x10*3/uL (2.0-8.3); Platelet Count 229 X10*3/uL (160-400); Red Cell Distribution Width 15.1 % (11.0-16.0)
[2023-03-25 07:05] LABS: Alanine Aminotransferase 13 U/L (0-31); Alkaline Phosphatase 126 U/L (39-117); Anion Gap 12 (12-20); Aspartate Amino Transferase 18 U/L (5-31); Bilirubin Total 0.5 mg/dL (0.0-1.0); Blood Urea Nitrogen 24 mg/dL (9-16); Calcium 8.8 mg/dL (8.4-10.2); Carbon Dioxide 35 mmol/L (22-29); Chloride 99 mmol/L (96-108); Estimated Glomerular Filt Rate > 60; Glucose Random 101 mg/dL (60-115); Sodium 143 mmol/L (135-145); Total Protein 5.7 g/dL (6.5-8.0)
== END 2023-03-25 06:31 | disposition home or self-care (01) ==
LOC: HO.MMNH1L 06:30
PROVIDERS: Visit Provider Family Medicine
DX: E11.9 Type 2 diabetes mellitus without complications (principal); I11.0 Hypertensive heart disease with heart failure; I50.9 Heart failure, unspecified
CPT/HCPCS: 36415; 80053; 85025

== ENCOUNTER 2023-04-01 06:50 | Outpatient (REF) | payer OTHER, SELFPAY ==
[2023-04-01 06:08] LABS: MANUAL DIFF FLAG NO
[2023-04-01 07:26] LABS: Basophils Percent Auto 0.4 % (0-2); Eosinophils Absolute Auto 0.1 X10*3/uL (0.0-0.4); Eosinophils Percent Auto 1.6 % (0-4); Hematocrit 32.1 % (37.0-47.0); Hemoglobin 9.7 g/dl (12.0-16.0); Imm Gran Abs Auto 0.04 X10*3/uL (0.00-0.03); Imm Gran Pct Auto 0.5 % (0.0-0.4); Lymphocytes Absolute Auto 2.9 X10*3/uL (1.2-4.9); Lymphocytes Percent Auto 36.1 % (20-40); Mean Corpuscular HGB Conc 30.2 g/dl (31.0-35.0); Mean Corpuscular Volume 95.8 fL (80.0-98.0); Mean Platelet Volume 9.9 fL (9.4-12.3); Monocytes Absolute Auto 0.9 X10*3/uL (0.1-1.2); Monocytes Percent Auto 10.8 % (2-11); Neutrophils Percent Auto 50.6 % (45-73); Platelet Count 269 X10*3/uL (160-400); Red Blood Count 3.35 X10*6/uL (4.20-5.50); Red Cell Distribution Width 14.5 % (11.0-16.0); White Blood Count 7.9 X10*3/uL (4.8-10.8)
[2023-04-01 07:34] LABS: Anion Gap 13 (12-20); Blood Urea Nitrogen 25 mg/dL (9-16); Calcium 9.4 mg/dL (8.4-10.2); Carbon Dioxide 32 mmol/L (22-29); Chloride 105 mmol/L (96-108); Estimated Glomerular Filt Rate > 60; Glucose Random 93 mg/dL (60-115); Potassium 3.3 mmol/L (3.3-5.1); Sodium 147 mmol/L (135-145)
== END 2023-04-01 06:51 | disposition home or self-care (01) ==
LOC: HO.MMNH1L 06:50
PROVIDERS: Visit Provider Family Medicine
DX: E11.9 Type 2 diabetes mellitus without complications (principal); I11.0 Hypertensive heart disease with heart failure; I50.9 Heart failure, unspecified
CPT/HCPCS: 36415; 80048; 85025

== ENCOUNTER 2023-04-08 05:55 | Outpatient (REF) | payer OTHER, SELFPAY ==
[2023-04-08 05:47] LABS: MANUAL DIFF FLAG NO
[2023-04-08 07:05] LABS: Basophils Percent Auto 0.3 % (0-2); Eosinophils Absolute Auto 0.1 X10*3/uL (0.0-0.4); Eosinophils Percent Auto 1.9 % (0-4); Hematocrit 32.9 % (37.0-47.0); Hemoglobin 10.3 g/dl (12.0-16.0); Imm Gran Abs Auto 0.04 X10*3/uL (0.00-0.03); Imm Gran Pct Auto 0.5 % (0.0-0.4); Lymphocytes Absolute Auto 2.6 X10*3/uL (1.2-4.9); Lymphocytes Percent Auto 34.5 % (20-40); Mean Corpuscular HGB Conc 31.3 g/dl (31.0-35.0); Mean Corpuscular Hemoglobin 29.7 pg (27.0-33.0); Mean Corpuscular Volume 94.8 fL (80.0-98.0); Mean Platelet Volume 10.1 fL (9.4-12.3); Monocytes Absolute Auto 0.8 X10*3/uL (0.1-1.2); Monocytes Percent Auto 10.3 % (2-11); Neutrophils Percent Auto 52.5 % (45-73); Platelet Count 253 X10*3/uL (160-400); Red Blood Count 3.47 X10*6/uL (4.20-5.50); Red Cell Distribution Width 14.2 % (11.0-16.0); White Blood Count 7.5 X10*3/uL (4.8-10.8)
[2023-04-08 07:16] LABS: Alanine Aminotransferase 14 U/L (0-31); Alkaline Phosphatase 150 U/L (39-117); Anion Gap 17 (12-20); Aspartate Amino Transferase 24 U/L (5-31); Bilirubin Total 0.4 mg/dL (0.0-1.0); Blood Urea Nitrogen 15 mg/dL (9-16); Calcium 9.3 mg/dL (8.4-10.2); Carbon Dioxide 24 mmol/L (22-29); Chloride 104 mmol/L (96-108); Estimated Glomerular Filt Rate > 60; Potassium 3.7 mmol/L (3.3-5.1); Sodium 141 mmol/L (135-145); Total Protein 6.2 g/dL (6.5-8.0)
[2023-04-08 07:52] LABS: Glucose Random 58 mg/dL (60-115)
== END 2023-04-08 05:56 | disposition home or self-care (01) ==
LOC: HO.MMNH1L 05:55
PROVIDERS: Visit Provider Family Medicine
DX: E11.9 Type 2 diabetes mellitus without complications (principal); I11.0 Hypertensive heart disease with heart failure; I50.9 Heart failure, unspecified
CPT/HCPCS: 36415; 80053; 85025

== ENCOUNTER 2023-04-18 11:47 | Outpatient (REF) | payer OTHER, SELFPAY ==
--- NOTE | ~2023-04-18 | XR_ITS ---
EXAMINATION: XR FEMUR, RIGHT CLINICAL INFORMATION: Displaced left intertrochanteric fracture. COMPARISON: February 28, 2023. TECHNIQUE: AP and lateral views of the right femur were obtained. FINDINGS: Suspect decreased bone mineral density, which limits sensitivity for fracture. The patient is status post ORIF of a comminuted right intertrochanteric fracture. Bony fragments appear in similar anatomic alignment compared with February 28, 2023. There is a suggestion of early callus formation, suboptimally visualized. No evidence of hardware fracture or loosening. No new bony fracture identified. No evidence of knee joint effusion. Mild calcification of the popliteal artery. Previously seen surgical skin anisa have been removed. XR/XR femur RT 2V IMPRESSION: Findings as above.
== END 2023-04-18 11:48 | disposition home or self-care (01) ==
LOC: HO.HOSX 11:47
PROVIDERS: Visit Provider Physician Assistant
DX: S72.001D Fracture of unspecified part of neck of right femur, subsequent encounter for closed fracture with routine healing (principal); X58.XXXD Exposure to other specified factors, subsequent encounter
CPT/HCPCS: 73552; 99212

== ENCOUNTER 2023-04-18 12:22 | Outpatient (AMB) | payer OTHER, SELFPAY ==
--- NOTE | 2023-04-18 12:52 | A.OFFVIS_ITS ---
Intake Intake Visit Reasons: PO-Rt hip IMN 02/10/23 NE Intake Note: Carly an 82 year old female presents today for a post operative right hip IMN on 02/10/23 NE. Patient reports she is doing well, denies pain. States she has completed OT and will be discharged to go home this week. Allergies morphine [MORPHINE] Allergy (Unknown, Verified 04/18/23 12:54) RASH pregabalin [From LYRICA] Allergy (Unknown, Verified 04/18/23 12:54) NAUSEA, felt high on drugs HPI PO-Rt hip IMN 02/10/23 NE HPI Details 82-year-old female who returns to the [facility] today for post-op right hip IMN, 02/10/[address] Covarrubias. She states she has no pain and is doing well overall. She has completed occupational therapy and will be discharged to go home this week. She has no other concerns today. 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 Low back pain Respiratory failure with hypoxia and hypercapnia Lower extremity weakness Nasal congestion Otitis externa Coronary artery disease Restrictive lung disease Diarrhea History of spinal stenosis Fibromyalgia Obesity (BMI 30-39.9) Carpal tunnel syndrome Abdominal aortic aneurysm Hypothyroid Obstructive sleep apnea Congestive heart failure Pernicious anemia Paroxysmal atrial fibrillation COPD (chronic obstructive pulmonary disease) DVT (deep venous thrombosis) Diverticulitis GERD (gastroesophageal reflux disease) HTN (hypertension) Clostridium difficile colitis CAD (coronary artery disease) Hypercholesterolemia Surgical History S/P BREANN-BSO (total abdominal hysterectomy and bilateral salpingo-oophorectomy) History of arthroplasty of left shoulder Hx of cholecystectomy H/O angioplasty Hx of appendectomy H/O cardiac catheterization Family History Father Hypertension CVD (cardiovascular disease) Mother Colon cancer Sister Leukemia Sister Colon cancer Son Lung cancer Colon polyps Social History Household Members: None Housing: Apartment Do you presently have visiting nurse or other home services: Yes (priscila JEAN PAUL) Alcohol intake: never Patient Tobacco Use Status: Former Tobacco user Tobacco use type: Cigarette Years Smoked: stopped 2009 e-Cigarette/Vaping Use: Never Used Second Hand Smoke Exposure: No Advance Directives Date on File: 10/10/21 service: No Current occupational status: retired Current occupational exposures/hazards: No Cognitive needs: No Hearing needs: No Vision needs: Yes Review of Systems Const All systems reviewed & are unremarkable except as noted in HPI and below Physical Exam Extrem Other: Right hip Incision clean, dry and intact. No erythema or drainage. She has mild discomfort with hip flexion. NVI. Results Reviewed Results Reviewed: Xrays were obtained in the office today and personally reviewed by me of the right hip show intact IMN with stable fracture pattern Assessment & Plan Assessment & Plan (1) Closed fracture of right hip: Comment: 2022 fall subtrochanteric fracture Code(s): S72.001A - Fracture of unspecified part of neck of right femur, initial encounter for closed fracture Qualifiers: Encounter type: subsequent encounter Fracture healing: with routine healing Qualified Code(s): S72.001D - Fracture of unspecified part of neck of right femur, subsequent encounter for closed fracture with routine healing Plan She will continue with physical therapy to work on strengthening and gait training exercises. She will increase activity as tolerated and see me back in 6 weeks with new x-rays, sooner if needed. Orders: Orders XR femur RT 2V Today S72.142A - Displaced intertrochanteric fracture of left femur, initial encounter for closed fracture Patient Instructions: Scribed for Gretel Mccormick PA-C, by Brant Ross medical doctor md/medical director, on 04/18/2023 at 12:30 PM EST. IGretel PA-C, have personally reviewed and agree with the information entered by the scribe. Coding Level of Care Code Global (02729) Diagnoses Closed fracture of right hip with routine healing, subsequent encounter S72.001D Encounter type: subsequent encounter Fracture healing: with routine healing
== END 2023-04-18 13:47 | disposition home or self-care (01) ==
PROVIDERS: PCP Internal Medicine; Visit Provider Physician Assistant
DX: S72.001D Fracture of unspecified part of neck of right femur, subsequent encounter for closed fracture with routine healing (principal)
CPT/HCPCS: 99024

== ENCOUNTER 2023-05-29 12:44 | Outpatient (REF) | payer OTHER, SELFPAY | END 2023-05-29 12:45 | disposition home or self-care (01) | LOC: HO.HOSX 12:44 | PROVIDERS: Visit Provider Physician Assistant | DX: Z13.89 Encounter for screening for other disorder (principal) ==

== ENCOUNTER 2023-07-01 11:15 | Outpatient (AMB) | payer OTHER, SELFPAY ==
--- NOTE | 2023-07-01 11:15 | A.OFFPC_ITS ---
Intake Visit Reasons: HDF ~ Post hospital discharge FU Allergies morphine [MORPHINE] Allergy (Unknown, Verified 07/01/23 11:16) RASH pregabalin [From LYRICA] Allergy (Unknown, Verified 07/01/23 11:16) NAUSEA, felt high on drugs Medication List - Last Reconciled 07/01/23 by Chantal Lay MD acyclovir 5% 1 appl topical 6XD PRN [Air mattress As directed] albuterol sulfate 90 mcg/actuation 2 puffs PO Q4H PRN albuterol sulfate 2.5 mg (3 mL) inhalation Q6H PRN apixaban (Eliquis) 5 mg PO BID 90 days ascorbic acid (vitamin C) 500 mg PO BID aspirin 81 mg PO DAILY atorvastatin 80 mg PO DAILY 90 days azithromycin (Zithromax) For 250 mg dose pack: take 500 mg today (day 1), then 250 mg for 4 days (days 2-5) PO blood pressure monitor (Blood Pressure Kit) As directed blood sugar diagnostic (OneTouch Ultra Test strips) DIRECTED TEST BLOOD GLUCOSE DAILY blood-glucose meter (TriLog[employer] PharmaTouch UltraMini kit) As directed blood-glucose meter ([employer] PharmaTouch Ultra2 Meter kit) As directed cholecalciferol (vitamin D3) (Vitamin D3) 25 mcg PO DAILY clotrimazole 1% apply to affected area topical 2 times a day; compress.stocking,knee,reg,lrg As directed 20-30 mm HG cyanocobalamin (vitamin B-12) 1,000 mcg IM Q4W 90 days dexlansoprazole (Dexilant) 30 mg PO DAILY dicyclomine 10 - 20 mg PO QID PRN docusate sodium 100 mg PO BID PRN dulaglutide (Trulicity) 3 mg (0.5 mL) subcut QWEEK duloxetine 30 mg PO DAILY ezetimibe 10 mg PO DAILY ferrous sulfate 325 mg PO DAILY fluticasone propion-salmeterol 500-50 mcg/dose 1 inh inhalation BID [FOUR WHEEL SCOOTER As directed] furosemide 40 mg PO QAM [hospital bed As directed] ipratropium-albuterol 0.5 mg-3 mg(2.5 mg base)/3 mL 3 mL inhalation Q4-6H PRN ketoconazole 2% 1 appl topical 2XW lancets test daily lancets As directed test blood glucose daily levothyroxine 100 mcg PO QAM meclizine 12.5 mg PO BID PRN metoprolol succinate ER 50 mg PO DAILY [Nebulizer supplies As directed] nitroglycerin 0.4 mg sublingual Q5M PRN 90 days ondansetron HCl 8 mg PO Q12H PRN pads for bedsores As directed [pressure release mattress As directed] [[facility] Electric Hospital Bed diagnosis I50.32 As directed, GERMAN 99] [stair lift and ramp As directed] thiamine HCl (vitamin B1) 100 mg PO DAILY tiotropium bromide (Spiriva with HandiHaler) 1 cap inhalation DAILY tirzepatide (Mounjaro) mg subcut tramadol 50 mg PO BEDTIME Transfer Bench As directed for bath tub [UNDERPADS Disposable BED As directed] [Wheelchair Ramp As directed] Tobacco use date assessed: 06/21/23 Fall risk assessment: No Falls in past year Last assessed Fall Risk: 07/01/23 Dental Screening Dental Screen Date: 07/01/23 Did you have a dental visit in the last 12 months?: No Did you have a dental problem in the last 6 months where you did not have access to dental care?: No Was dental information given to patient?: No HPI HDF ~ Post hospital discharge FU HPI Details 83-year-old female wheelchair born with multiple medical problems atrial fibrillation obstructive sleep apnea hypothyroidism atherosclerotic heart disease lumbar degenerative disc disease diabetes mellitus renal insufficiency hypercholesterolemia mixed incontinence coming in for follow-up through Telehealth. Patient has complained of leg swelling recently. Review of the notes also patient was seen by orthopedics patient had a right hip fracture 02/10/2023 with right hip(femoral neck) intramedullary nailing. Then sent for rehab and then before that in January 20 had COPD exacerbation with respiratory failure.mixed incontinence coming in for follow-up through Telehealth. Patient has complained of leg swelling recently. [facility] Medical History (Updated 07/01/23 @ 11:37 by Chantal Lay MD) COPD (chronic obstructive pulmonary disease) Strong odor of stools Dysuria Pulmonary nodules Diarrhea Weakness Bradycardia Ingrowing nail Impacted cerumen of right ear Urinary incontinence Impacted cerumen of right ear Pulmonary nodule Chronic anticoagulation First degree atrioventricular block Atrial fibrillation Chronic pain syndrome 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 Low back pain Respiratory failure with hypoxia and hypercapnia Lower extremity weakness Nasal congestion Otitis externa Coronary artery disease Restrictive lung disease Diarrhea History of spinal stenosis Fibromyalgia Obesity (BMI 30-39.9) Carpal tunnel syndrome Abdominal aortic aneurysm Hypothyroid Obstructive sleep apnea Congestive heart failure Pernicious anemia Paroxysmal atrial fibrillation DVT (deep venous thrombosis) Diverticulitis GERD (gastroesophageal reflux disease) HTN (hypertension) Clostridium difficile colitis CAD (coronary artery disease) Hypercholesterolemia Surgical History S/P BREANN-BSO (total abdominal hysterectomy and bilateral salpingo-oophorectomy) History of arthroplasty of left shoulder Hx of cholecystectomy H/O angioplasty Hx of appendectomy H/O cardiac catheterization Family History Father Hypertension CVD (cardiovascular disease) Mother Colon cancer Sister Leukemia Sister Colon cancer Son Lung cancer Colon polyps Social History Household Members: None Housing: Apartment Do you presently have visiting nurse or other home services: Yes ([facility]) Alcohol intake: never Patient Tobacco Use Status: Former Tobacco user Tobacco use type: Cigarette Years Smoked: stopped 2009 e-Cigarette/Vaping Use: Never Used Second Hand Smoke Exposure: No Advance Directives Date on File: 10/10/21 service: No Current occupational status: retired Current occupational exposures/hazards: No Cognitive needs: No Hearing needs: No Vision needs: Yes Questionnaire PHQ-9 Over the last 2 weeks, how often have you been bothered by any of the following problems? 1. Little interest or pleasure in doing things: not at all 2. Feeling down, depressed, or hopeless: not at all 3. Trouble falling or staying asleep, or sleeping too much: not at all 4. Feeling tired or having little energy: not at all 5. Poor appetite or overeating: not at all 6. Feeling bad about yourself - or that you are a failure or have let yourself or your family down: not at all 7. Trouble concentrating on things, such as reading the newspaper or watching television: not at all 8. Moving or speaking so slowly that other people could have noticed. Or the opposite - being so fidgety or restless that you have been moving around a lot more than usual: not at all 9. Thoughts that you would be better off or of hurting yourself in some way: not at all Total score: 0 Depression Screening Interpretation: Negative Depression Screening Done: Yes [id number] - PHQ-9 Billing: Yes Source: Developed by Drs. Chang Perez, Emiliano Todd and colleagues, with an educational fernando from [email or web address]. Thrive Questionnaire Date Thrive assessed: 06/21/23 AUDIT C Alcohol Use Questionnaire (AUDIT-C) 1. How often do you have a drink containing alcohol?: Never 2. How many drinks containing alcohol do you have on a typical day when you are drinking?: 1 or 2 3. How often do you have six or more drinks on one occasion?: Never Total Score: 0 DONNY-7 AMB Questionnaire DONNY-7 Date DONNY - 7 assessed: 06/21/23 Source: Developed by Drs. Chang Perez, Allie Segovia, Emiliano Mitchell and colleagues, with an educational fernando from [email or web address]. Physical exam (Primary Care) Tobacco/Smoking Status: Tobacco use Status Tobacco use date assessed 06/21/23 07/01/23 11:17 Patient Tobacco Use Status Former Tobacco user 07/01/23 11:17 Tobacco use type Cigarette 07/01/23 11:17 e-Cigarette/Vaping Use Never Used 07/01/23 11:17 PHQ-9: PHQ-9 Score PHQ-9: Total score 0 07/01/23 11:17 Depression Screening Interpretation: Negative Thrive Assessment: Date of Thrive Assessment Date Thrive assessed 06/21/23 07/01/23 11:17 Telehealth Telehealth Telehealth Platform: Telephone Location of provider rendering services: practice address Location of patient: address on file Patient Identification confirmed using: Name, : Yes Telehealth method: voice only Patient verbally consented to treatment: Yes Patient verbally consented to billing insurance company: Yes Patient informed of any privacy concerns related to visit: Yes Minutes spent on Phone/Video with Pt.: 25 Assessment and Plan Assessment & Plan (1) Closed fracture of right hip: Comment: 2022 fall subtrochanteric fracture, status post intramedullary nailing January 2023 Code(s): S72.001A - Fracture of unspecified part of neck of right femur, initial encounter for closed fracture Qualifiers: Encounter type: subsequent encounter Fracture healing: with routine healing Qualified Code(s): S72.001D - Fracture of unspecified part of neck of right femur, subsequent encounter for closed fracture with routine healing Plan: Patient follows up with ortho and continued exercise needed (2) Atherosclerotic cardiovascular disease: Code(s): I25.10 - Atherosclerotic heart disease of [place] coronary artery without angina pectoris Plan: Control the cholesterol, weight, blood pressure, diabetes on apixaban twice a day 5 mg (3) COPD (chronic obstructive pulmonary disease): Comment: COPD IS RATHER SEVERE, BUT REMAINS STABLE EXPECTED. tx : ADVISED TO CONTINUE USING ADVAIR 500-50 1 INHALATION B.I.D.. AND DUONEB UPDRAFTS Q 6 HOURS WHILE AWAKE ( 4 TIMES A DAY ) ALSO MAY USE ALBUTEROL UPDRAFT OR ALBUTEROL HFA 2 PUFFS Q 4 HOURS P.R.N. I explained to her that the above combination is, maximum treatment for her. But she does need to use the DuoNeb updraft 3 to 4 times a day. ACAPELLA VALVE IS ORDERED FOR HER, AND SHE SHOULD USE IT EVERY FEW HOURS, Code(s): J44.9 - Chronic obstructive pulmonary disease, unspecified Plan: Continue with the inhalers (4) Peripheral vascular disease: Code(s): I73.9 - Peripheral vascular disease, unspecified Plan: When sitting down elevate the legs, exercise, and support stockings, prescript ion for support stockings printed, noted also hypoalbuminemia/low protein advised to increase protein intake not meats (5) Scalp pruritus: Code(s): L29.9 - Pruritus, unspecified Plan: Scalp shampoo sent but will need follow-up Medications: New ketoconazole 2% 1 appl topical 2XW 120 mL 0RF I73.9 - Peripheral vascular disease, unspecified compress.stocking,knee,reg,lrg As directed 20-30 mm HG 12 ea 0RF I73.9 - Peripheral vascular disease, unspecified Coding Level of Care Code Est Pt Level 4 (86505) Diagnoses Closed fracture of right hip with routine healing, subsequent encounter S72.001D Encounter type: subsequent encounter Fracture healing: with routine healing Atherosclerotic cardiovascular disease I25.10 Panlobular emphysema J44.9 Peripheral vascular disease I73.9 Scalp pruritus L29.9
== END 2023-07-01 14:22 | disposition home or self-care (01) ==
LOC: HO.HMGH 11:15
PROVIDERS: PCP Internal Medicine; Visit Provider Internal Medicine
DX: S72.001D Fracture of unspecified part of neck of right femur, subsequent encounter for closed fracture with routine healing (principal); I25.10 Atherosclerotic heart disease of native coronary artery without angina pectoris; J44.9 Chronic obstructive pulmonary disease, unspecified; I73.9 Peripheral vascular disease, unspecified; L29.9 Pruritus, unspecified
CPT/HCPCS: 99214

== ENCOUNTER 2023-07-08 15:58 | Inpatient (IN) | payer OTHER, SELFPAY ==
[2023-07-08] VITALS (10 sets, daily range): BP systolic 109–160; BP diastolic 58–100; PULSE 86–162; RESP 18–22; TEMP 36.9–37.1; O2SAT 95–100; BMI 39.3
--- NOTE | ~2023-07-08 | XR_ITS ---
EXAMINATION: XR CHEST CLINICAL INFORMATION: Shortness of breath. Rule out pulmonary edema. COMPARISON: Chest radiograph dated 02/08/2023. TECHNIQUE: Frontal view of the chest was obtained. FINDINGS: The trachea is in normal anatomic position. The cardiac silhouette is enlarged. There is calcific atherosclerotic disease of the aorta. There is no consolidation within either lung. There is linear atelectasis within the left midlung. No large pleural effusion. No pneumothorax. There is a left shoulder prosthesis. There are degenerative changes of the right shoulder. There are surgical clips overlying the lower chest. XR/XR chest 1V IMPRESSION: Cardiomegaly. No evidence of pulmonary edema.
--- NOTE | 2023-07-08 16:35 | ECG_ITS ---
Test Reason : TACHYCARDIA Blood Pressure : / mmHG Vent. Rate : 144 BPM Atrial Rate : 000 BPM P-R Int : 000 ms QRS Dur : 076 ms QT Int : 302 ms P-R-T Axes : 000 096 146 degrees QTc Int : 467 ms Supraventricular tachycardia with occasional Premature ventricular complexes Rightward axis Pulmonary disease pattern Septal infarct (cited on or before 26-AUG-2021) Abnormal ECG When compared with ECG of 08-FEB-2023 19:55, Premature ventricular complexes are now Present Questionable change in QRS axis Referred By: Martha Mccray Electronically Signed By:Adelfo Anthony
--- NOTE | 2023-07-08 16:36 | ED.GENADULT ---
HPI - General Adult General Chief complaint: General Medical Stated complaint: nausea,sob,HTN, hx AFIB Time Seen by Provider: 07/08/23 16:27 Source: patient and EMS Mode of arrival: EMS Limitations: no limitations History of Present Illness HPI narrative: Patient comes to the emergency room complaining of 1 day of weakness, palpitations, shortness of breath. Patient is known to have atrial fibrillation, CHF COPD. Patient takes Eliquis. At this time, patient denies chest pain. Related Data Home Medications ?Medication ?Instructions ?Recorded ?Confirmed aspirin 81 mg tablet 81 mg PO DAILY 12/01/19 07/01/23 cholecalciferol (vitamin D3) 25 25 mcg PO DAILY 12/01/19 07/01/23 mcg (1,000 unit) capsule (Vitamin D3) dicyclomine 10 mg capsule 10 - 20 mg PO QID PRN Abdominal 12/01/19 07/01/23 Pain ferrous sulfate 325 mg (65 mg 325 mg PO DAILY 12/01/19 07/01/23 iron) tablet acyclovir 5 % topical ointment 1 appl topical 6XD PRN genital 02/08/23 07/01/23 lesions tirzepatide 2.5 mg/0.5 mL mg subcut 02/28/23 07/01/23 subcutaneous pen injector (Marcio) tramadol 50 mg tablet 50 mg PO BEDTIME 06/21/23 07/01/23 Previous Rx's ?Medication ?Instructions ?Recorded stair lift and ramp #1 ea 08/31/20 blood-glucose meter (OneTouch #1 ea 09/14/20 Ultra2 Meter kit) blood-glucose meter (OneTouch #1 ea 09/16/20 UltraMini kit) Wheelchair Ramp #1 ea 10/06/20 Transfer Bench #1 ea 11/01/20 blood pressure monitor (Blood #1 ea 11/03/20 Pressure Kit) hospital bed #1 ea 01/23/21 Nebulizer supplies #3 ea 03/22/21 Semi Electric Hospital Bed #1 ea 03/22/21 diagnosis I50.32 Air mattress #1 ea 11/27/21 nitroglycerin 0.4 mg sublingual 0.4 mg sublingual Q5M PRN for 02/22/22 tablet angina 90 days #25 tabs FOUR WHEEL SCOOTER #1 ea 06/08/22 ondansetron HCl 8 mg tablet 8 mg PO Q12H PRN nausea and 06/22/22 vomiting #30 tabs furosemide 40 mg tablet 40 mg PO QAM #90 tabs 07/02/22 pads for bedsores 7 7/8 X 11 3/4 #50 ea 07/10/22 tiotropium bromide 18 mcg capsule 1 cap inhalation DAILY #30 08/11/22 with inhalation device (Spiriva inhalations with HandiHaler) albuterol sulfate 2.5 mg/3 mL 2.5 mg (3 mL) inhalation Q6H PRN 09/10/22 (0.083 %) solution for nebulization for wheezing #450 mL duloxetine 30 mg capsule,delayed 30 mg PO DAILY #90 caps 09/17/22 release thiamine HCl (vitamin B1) 100 mg 100 mg PO DAILY #90 tabs 09/17/22 tablet ipratropium 0.5 mg-albuterol 3 mg 3 ml inhalation Q4-6H PRN for 09/21/22 (2.5 mg base)/3 mL nebulization wheezing #180 mL soln fluticasone 500 mcg-salmeterol 50 1 inh inhalation BID #60 ea 10/11/22 mcg/dose blistr powdr for inhalation pressure release mattress #1 ea 11/13/22 dexlansoprazole 30 mg 30 mg PO DAILY #90 caps 12/19/22 capsule,biphase delayed release (Dexilant) atorvastatin 80 mg tablet 80 mg PO DAILY 90 days #90 tabs 12/20/22 meclizine 12.5 mg tablet 12.5 mg PO BID PRN for motion 12/21/22 sickness #60 tabs ezetimibe 10 mg tablet 10 mg PO DAILY #90 tabs 01/15/23 levothyroxine 100 mcg tablet 100 mcg PO QAM #90 tabs 01/15/23 blood sugar diagnostic (OneTouch #100 strips 01/30/23 Ultra Test strips) cyanocobalamin (vitamin B-12) 1,000 mcg IM Q4W 90 days #4 mL 01/30/23 1,000 mcg/mL injection solution dulaglutide 3 mg/0.5 mL 3 mg (0.5 mL) subcut QWEEK #2 mL 01/30/23 subcutaneous pen injector ([facility]) albuterol sulfate 90 mcg/actuation 2 puff PO Q4H PRN for respiratory 02/05/23 aerosol inhaler distress #8.5 ea lancets #100 ea 02/09/23 apixaban 5 mg tablet (Eliquis) 5 mg PO BID 90 days #180 tabs 05/20/23 ascorbic acid (vitamin C) 500 mg 500 mg PO BID #180 tabs 05/20/23 tablet docusate sodium 100 mg capsule 100 mg PO BID PRN consti #60 caps 05/20/23 UNDERPADS Disposable BED #3 ea 06/21/23 azithromycin 250 mg tablet See Rx Instructions PO .COMPLEX #6 06/21/23 (Zithromax) tabs clotrimazole 1 % topical cream See Rx Instructions topical BID 06/22/23 #45 grams metoprolol succinate 50 mg 50 mg PO DAILY #30 tabs 06/22/23 tablet,extended release 24 hr compress.stocking,knee,reg,lrg #12 ea 07/01/23 ketoconazole 2 % shampoo 1 appl topical 2XW #120 mL 07/01/23 lancets 33 gauge (OneTouch Delica #100 ea 07/01/23 Plus Lancet) Allergies Allergy/AdvReac Type Severity Reaction Status Date / Time morphine [MORPHINE] Allergy Unknown RASH Verified 07/08/23 16:33 pregabalin [From LYRICA] Allergy Unknown NAUSEA, Verified 07/08/23 16:33 felt high on drugs Review of Systems Review of Systems: Constitutional : No Weight loss, No Fever, No Chills, No Night Sweats, No Fatigue, No Malaise ENT/Mouth : No Hearing loss, No Ear Pain, No Nasal Congestion, No Sinus Pain, No Hoarseness, No sore throat, No Rhinorrhea, No Swallowing Difficulty Eyes: No Eye Pain, No Swelling, No Redness, No Foreign Body, No Discharge, No Vision Changes Cardiovascular : No Chest Pain, complaining of shortness of breath, worse with exertion, palpitations Respiratory : No Cough, No Sputum, No Wheezing, No Smoke Exposure, No Dyspnea Gastrointestinal : No Nausea, No Vomiting, No Diarrhea, No Constipation, No abdominal Pain, No Hematochezia, No Melena Genitourinary : no irregular bleeding, No Dysuria, No Urinary Frequency, No Hematuria, No Urinary Incontinence, No Urgency, No Flank Pain, No Urinary Flow Changes, No Hesitancy Musculoskeletal : No joint pain, No Myalgias, No Joint Swelling Skin : No Skin Lesions, No rash Neuro : No Weakness, No Numbness, No Paresthesias, No Loss of Consciousness, No Dizziness, No Headache Psych : No Anxiety/Panic, No Depression, No SI/HI/AH/VH, No Social Issues, Heme/Lymph: No Bruising, No Bleeding,No Lymphadenopathy Endocrine : No Polyuria, No Polydipsia, No Temperature Intolerance [facility] Past Medical History Medical History COPD (chronic obstructive pulmonary disease) Strong odor of stools Dysuria Pulmonary nodules Diarrhea Weakness Bradycardia Ingrowing nail Impacted cerumen of right ear Urinary incontinence Impacted cerumen of right ear Pulmonary nodule Chronic anticoagulation First degree atrioventricular block Atrial fibrillation Chronic pain syndrome 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 Low back pain Respiratory failure with hypoxia and hypercapnia Lower extremity weakness Nasal congestion Otitis externa Coronary artery disease Restrictive lung disease Diarrhea History of spinal stenosis Fibromyalgia Obesity (BMI 30-39.9) Carpal tunnel syndrome Abdominal aortic aneurysm Hypothyroid Obstructive sleep apnea Congestive heart failure Pernicious anemia Paroxysmal atrial fibrillation DVT (deep venous thrombosis) Diverticulitis GERD (gastroesophageal reflux disease) HTN (hypertension) Clostridium difficile colitis CAD (coronary artery disease) Hypercholesterolemia Surgical History S/P BREANN-BSO (total abdominal hysterectomy and bilateral salpingo-oophorectomy) History of arthroplasty of left shoulder Hx of cholecystectomy H/O angioplasty Hx of appendectomy H/O cardiac catheterization Family History Family History Father Hypertension CVD (cardiovascular disease) Mother Colon cancer Sister Leukemia Sister Colon cancer Son Lung cancer Colon polyps Social History Social History Household Members: None Housing: Apartment [facility] you [facility] Alcohol intake: never Patient Tobacco Use Status: Former Tobacco user Tobacco use type: Cigarette Years Smoked: stopped 2009 e-Cigarette/Vaping Use: Never Used Second Hand Smoke Exposure: No Advance Directives: Yes Advance Directives on File: Yes Advance Directives Date on File: 10/10/21 service: No Current occupational status: retired Current occupational exposures/hazards: No Cognitive needs: No Hearing needs: No Vision needs: Yes Physical Exam ED Vital Signs: Vital Signs - 24 hr 07/08/23 16:30 07/08/23 16:55 07/08/23 17:55 Temperature 98.8 F Pulse Rate 162 H 147 H Respiratory Rate 20 18 Blood Pressure 109/65 147/79 H 129/69 Pulse Oximetry 100 95 Oxygen Delivery Method Nasal Cannula Nasal Cannula Oxygen Flow Rate 2 07/08/23 18:01 07/08/23 19:59 07/08/23 20:11 Temperature 98.4 F Pulse Rate 147 H 152 H 150 H Respiratory Rate 22 H Blood Pressure 129/69 137/86 137/81 Pulse Oximetry 95 Oxygen Delivery Method Nasal Cannula Oxygen Flow Rate 2 BMI result Body Mass Index 39.3 Const Other: Appearance: Alert. Oriented X3. No acute distress. Eyes: Pupils equal, round and reactive to light. ENT: Pharynx normal. Neck: Normal inspection. Neck supple. No lymph nodes noted. No crepitus CVS: iirregularly irregular, heart rate 160s Respiratory: No respiratory distress. Breath sounds normal. No Wheezing. No rales Abdomen: Soft and nontender. No rigidity. No distention. Skin: Skin warm and dry. Normal skin color. Normal skin turgor. Extremities: No lower extremity edema. No Lacerations. No Rash Neuro: Oriented X 3. No motor deficit. No sensory deficit. Moving all extremities. No slurred speech. CN 2 through 12 grossly intact Psych: calm, cooperative, normal affect Course Course Course Narrative: -patient takes metoprolol at home, states she is compliant, also takes Eliquis. -patient's heart rate is in the 160s -patient getting 1 dose of metoprolol 5 mg. -all of patient's labs pending Medications Administered Generic Name Dose Route Start Last Admin Trade Name Freq PRN Reason Stop Dose Admin Diltiazem HCl 125 mg/ Sodium 125 mls @ 0 mls/hr 07/08/23 20:00 07/08/23 20:11 Chloride IVCONT 10 mg/hr .Q0M DANIEL 10 mls/hr Administration Protocol Per Protocol Discontinued Medications Generic Name Dose Route Start Last Admin Trade Name Freq PRN Reason Stop Dose Admin Diltiazem HCl 10 mg 07/08/23 17:40 07/08/23 18:01 Diltiazem Hcl 50 Mg/10 Ml Vial IVPUSH 07/08/23 17:41 10 mg STAT STA Administration Metoprolol Tartrate 5 mg 07/08/23 16:34 07/08/23 16:53 Metoprolol Tartrate 5 Mg/5 Ml Vial IVPUSH 07/08/23 16:35 5 mg ONCE ONE Administration Protocol Medical Decision Making Medical Decision Making [facility] Narrative: -after 1 dose of metoprolol IV 5 mg, patient's heart rate in the 143, blood pressure in the 120s. -Patient will be given a dose of Cardizem now. -my interpretation of labs: Hematology at baseline, normal chemistry, troponin 25.8 (at baseline), BNP 429, patient has had both lower and higher BNP -chest x-ray my interpretation: Cardiomegaly -after a dose of metoprolol and Cardizem, patient is still having intermittent AFib. With any minimal exertion, patient's heart rate goes up to the 150s. Patient was started on a Cardizem drip. -I discussed the patient with Dr. Humphrey, patient being admitted. Differential Diagnosis Differential Diagnoses: The differential diagnosis associated with the presentation includes (Atrial fibrillation, atrial flutter, SVT) Admission/Observation Consideration of admission/observation: Escalation of care including admission/observation considered Consult Healthcare Provider Management of the patient was discussed with: Hospitalist Lab Data [facility] Lab Attestation statement: I reviewed the patient's lab results. 07/08/23 16:50 07/08/23 16:50 Labs: Lab Results 07/08/23 Range/Units 16:50 WBC 10.0 (4.8-10.8) X10*3/uL RBC 4.37 D (4.20-5.50) X10*6/uL Hgb 11.7 L (12.0-16.0) g/dl Hct 37.3 (37.0-47.0) % MCV 85.4 (80.0-98.0) fL MCH 26.8 L (27.0-33.0) pg MCHC 31.4 (31.0-35.0) g/dl RDW 15.9 (11.0-16.0) % Plt Count 321 D (160-400) X10*3/uL MPV 9.2 L (9.4-12.3) fL Immature Gran % (Auto) 0.4 (0.0-0.4) % Neut % (Auto) 64.3 (45-73) % Lymph % (Auto) 23.0 (20-40) % Jones % (Auto) 11.0 (2-11) % Eos % (Auto) 1.0 (0-4) % Baso % (Auto) 0.3 (0-2) % Lymph # (Auto) 2.3 (1.2-4.9) X10*3/uL Jones # (Auto) 1.1 (0.1-1.2) X10*3/uL Eos # (Auto) 0.1 (0.0-0.4) X10*3/uL Baso # (Auto) 0.0 (0.0-0.2) X10*3/uL Abs Immat Gran (auto) 0.04 H (0.00-0.03) X10*3/uL Absolute Neuts (auto) 6.4 (2.0-8.3) x10*3/uL Absolute Nucleated RBC 0.000 (0.0-0.012) X10*3/uL Nucleated RBC % (auto) 0.0 (0.0-0.2) /100WBC Hold Blue Top SEE NOTE Sodium 144 (135-145) mmol/L Potassium 4.1 (3.3-5.1) mmol/L Chloride 107 (96-108) mmol/L Carbon Dioxide 25 (22-29) mmol/L Anion Gap 16 (12-20) BUN 10 (9-16) mg/dL Creatinine 0.79 (0.5-1.4) mg/dL Estim Creat Clear Calc 58.7 Estimated GFR > 60 Random Glucose 105 (60-115) mg/dL Calcium 9.8 (8.4-10.2) mg/dL Total Bilirubin 0.6 (0.0-1.0) mg/dL Direct Bilirubin 0.2 (0.0-0.5) mg/dL AST 31 (5-31) U/L ALT 20 (0-31) U/L Alkaline Phosphatase 174 H (39-117) U/L Troponin I High Sens 25.8 H (<3.5-17.0) ng/L B-Natriuretic Peptide 429 H (<100) pg/mL Total Protein 7.0 (6.5-8.0) g/dL Albumin 3.2 L (3.5-5.0) g/dL Independent Interpretation I performed an independent interpretation of an: Plain X-Ray Critical Care Time Critical Care Time Critical Care Time: Yes Total Critical Care Time: 75 Attestation: Please follow-up with your primary care physician tomorrow. If you have any worsening or new symptoms, please return to the emergency room or call 911 Discharge Plan Discharge Clinical Impression: Atrial fibrillation with RVR Patient Disposition: Admitted As Inpatient Prescriptions: No Action (DME) stair lift and ramp See Rx Instructions .Route .MEDSUPPLY Qty: 1 0RF Rx Instructions: As directed (DME) blood-glucose meter [OneTouch Ultra2 Meter] Kit See Rx Instructions .Route Qty: 1 0RF Rx Instructions: As directed (DME) blood-glucose meter [OneTouch UltraMini] Kit See Rx Instructions .Route Qty: 1 0RF Rx Instructions: As directed (DME) Wheelchair Ramp See Rx Instructions .Route .MEDSUPPLY Qty: 1 0RF Rx Instructions: As directed (DME) Transfer Bench Misc See Rx Instructions .Route Qty: 1 0RF Rx Instructions: As directed for bath tub (DME) blood pressure monitor [Blood Pressure Kit] Kit See Rx Instructions .Route Qty: 1 0RF Rx Instructions: As directed (DME) [facility] Bed diagnosis I50.32 See Rx Instructions .Route .MEDSUPPLY Qty: 1 0RF Rx Instructions: As directed, GERMAN 99 (DME) Nebulizer supplies See Rx Instructions .Route .MEDSUPPLY Qty: 3 3RF Rx Instructions: As directed (DME) Air mattress See Rx Instructions .Route .MEDSUPPLY Qty: 1 0RF Rx Instructions: As directed nitroglycerin 0.4 mg tablet, sublingual 0.4 mg sublingual Q5M PRN (Reason: for angina) 90 Days Qty: 25 0RF (DME) FOUR WHEEL SCOOTER See Rx Instructions .Route .MEDSUPPLY Qty: 1 0RF Rx Instructions: As directed ondansetron HCl 8 mg tablet 8 mg PO Q12H PRN (Reason: nausea and vomiting) Qty: 30 0RF furosemide 40 mg tablet 40 mg PO QAM Qty: 90 3RF (DME) pads for bedsores 7 7/8 X 11 3/4 pad See Rx Instructions .Route Qty: 50 11RF Rx Instructions: As directed Spiriva with HandiHaler 18 mcg capsule, w/inhalation device 1 cap inhalation DAILY Qty: 30 0RF Rx Instructions: puncture 1 cap using device; one dose = 2 inhalations albuterol sulfate 2.5 mg /3 mL (0.083 %) solution for nebulization 2.5 mg inhalation Q6H PRN (Reason: for wheezing) Qty: 450 5RF duloxetine 30 mg capsule,delayed release(DR/EC) 30 mg PO DAILY Qty: 90 3RF thiamine HCl (vitamin B1) 100 mg tablet 100 mg PO DAILY Qty: 90 2RF ipratropium-albuterol 0.5 mg-3 mg(2.5 mg base)/3 mL solution for nebulization 3 ml inhalation Q4-6H PRN (Reason: for wheezing) Qty: 180 3RF fluticasone propion-salmeterol 500-50 mcg/dose blister with device 1 inh inhalation BID Qty: 60 11RF (DME) pressure release mattress See Rx Instructions .Route .MEDSUPPLY Qty: 1 0RF Rx Instructions: As directed Dexilant 30 mg capsule,biphase delayed releas 30 mg PO DAILY Qty: 90 3RF meclizine 12.5 mg tablet 12.5 mg PO BID PRN (Reason: for motion sickness) Qty: 60 5RF ezetimibe 10 mg tablet 10 mg PO DAILY Qty: 90 3RF levothyroxine 100 mcg tablet 100 mcg PO QAM Qty: 90 3RF (DME) OneTouch Ultra Test Strip See Rx Instructions .ROUTE .COMPLEX Qty: 100 3RF Dose Instruction: DIRECTED TEST BLOOD GLUCOSE DAILY Rx Instructions: DIRECTED TEST BLOOD GLUCOSE DAILY cyanocobalamin (vitamin B-12) 1,000 mcg/mL solution 1,000 mcg IM Q4W 90 Days Qty: 4 11RF Trulicity 3 mg/0.5 mL pen injector 3 mg subcut QWEEK Qty: 2 11RF albuterol sulfate 90 mcg/actuation HFA aerosol inhaler 2 puff PO Q4H PRN (Reason: for respiratory distress) Qty: 8.5 5RF (DME) lancets Misc See Rx Instructions .Route Qty: 100 3RF Rx Instructions: As directed test blood glucose daily Eliquis 5 mg tablet 5 mg PO BID 90 Days Qty: 180 3RF docusate sodium 100 mg capsule 100 mg PO BID PRN (Reason: consti) Qty: 60 11RF ascorbic acid (vitamin C) 500 mg tablet 500 mg PO BID Qty: 180 3RF clotrimazole 1 % cream See Rx Instructions topical BID Qty: 45 11RF Rx Instructions: apply to affected area topical 2 times a day; metoprolol succinate 50 mg tablet extended release 24 hr 50 mg PO DAILY Qty: 30 2RF (DME) lancets [OneTouch Delica Plus Lancet] [facility] See Rx Instructions .ROUTE .COMPLEX Qty: 100 0RF Dose Instruction: USE TO TEST DAILY Rx Instructions: USE TO TEST DAILY ferrous sulfate 325 mg (65 mg iron) Tablet 325 mg PO DAILY aspirin 81 mg Tablet 81 mg PO DAILY cholecalciferol (vitamin D3) [Vitamin D3] 25 mcg (1,000 unit) Capsule 25 mcg PO DAILY dicyclomine 10 mg Capsule 10 - 20 mg PO QID PRN (Reason: Abdominal Pain) acyclovir 5 % ointment 1 appl topical 6XD PRN (Reason: genital lesions) Rx Instructions: apply to genital lesions 6 times a day for 7 days (DME) compress.stocking,knee,reg,lrg Misc See Rx Instructions .Route Qty: 12 0RF Rx Instructions: As directed 20-30 mm HG ketoconazole 2 % shampoo 1 appl topical 2XW Qty: 120 0RF (DME) hospital bed See Rx Instructions .Route .MEDSUPPLY Qty: 1 0RF Rx Instructions: As directed atorvastatin 80 mg tablet 80 mg PO DAILY 90 Days Qty: 90 3RF tramadol 50 mg tablet 50 mg PO BEDTIME azithromycin [Zithromax] 250 mg tablet See Rx Instructions PO .COMPLEX Qty: 6 0RF Rx Instructions: For 250 mg dose pack: take 500 mg today (day 1), then 250 mg for 4 days (days 2-5) PO (DME) UNDERPADS Disposable BED See Rx Instructions .Route .MEDSUPPLY Qty: 3 11RF Rx Instructions: As directed Marcio 2.5 mg/0.5 mL pen injector subcut Print Language: Mohawk
[2023-07-08 16:53] LABS: MANUAL DIFF FLAG NO
[2023-07-08] MEDS: Metoprolol Tartrate 5 MG/5 ML VIAL IVPUSH (16:53)
[2023-07-08 17:00] LABS: Basophils Percent Auto 0.3 % (0-2); Eosinophils Absolute Auto 0.1 X10*3/uL (0.0-0.4); Hematocrit 37.3 % (37.0-47.0); Hemoglobin 11.7 g/dl (12.0-16.0); Imm Gran Abs Auto 0.04 X10*3/uL (0.00-0.03); Imm Gran Pct Auto 0.4 % (0.0-0.4); Lymphocytes Absolute Auto 2.3 X10*3/uL (1.2-4.9); Mean Corpuscular HGB Conc 31.4 g/dl (31.0-35.0); Mean Corpuscular Hemoglobin 26.8 pg (27.0-33.0); Mean Corpuscular Volume 85.4 fL (80.0-98.0); Mean Platelet Volume 9.2 fL (9.4-12.3); Monocytes Absolute Auto 1.1 X10*3/uL (0.1-1.2); Neutrophils Absolute Auto 6.4 x10*3/uL (2.0-8.3); Neutrophils Percent Auto 64.3 % (45-73); Platelet Count 321 X10*3/uL (160-400); Red Blood Count 4.37 X10*6/uL (4.20-5.50); Red Cell Distribution Width 15.9 % (11.0-16.0)
[2023-07-08 17:17] LABS: Alanine Aminotransferase 20 U/L (0-31); Albumin Level 3.2 g/dL (3.5-5.0); Alkaline Phosphatase 174 U/L (39-117); Anion Gap 16 (12-20); Aspartate Amino Transferase 31 U/L (5-31); Bilirubin Direct 0.2 mg/dL (0.0-0.5); Bilirubin Total 0.6 mg/dL (0.0-1.0); Blood Urea Nitrogen 10 mg/dL (9-16); Calcium 9.8 mg/dL (8.4-10.2); Carbon Dioxide 25 mmol/L (22-29); Chloride 107 mmol/L (96-108); Creatinine Clr Calc Pharmacy 58.7; Estimated Glomerular Filt Rate > 60; Glucose Random 105 mg/dL (60-115); Potassium 4.1 mmol/L (3.3-5.1); Sodium 144 mmol/L (135-145)
[2023-07-08 17:21] LABS: B Type Natriuretic Peptide 429 pg/mL (<100)
[2023-07-08 17:24] LABS: Troponin-I High Sensitivity 25.8 ng/L (<3.5-17.0)
[2023-07-08] MEDS: dilTIAZem HCL 50 MG/10 ML VIAL 10 MG IVPUSH (18:01)
--- NOTE | 2023-07-08 18:11 | PC.NURSE ---
IV Cardizem given, patient hr now 88
--- NOTE | 2023-07-08 20:00 | PC.NURSE ---
This tech writer assumed care of this Pt at 1900. Pt A&Ox3, reports increase SOB, SpO2 95% on 2L via NC, RR 22, lung sounds clear, Pt heart rate noted to be between 109-150s in a-fib, Dr. Mccray made aware, awaiting for new order.
[2023-07-08] MEDS: dilTIAZem HCL 125 MG in 0.9 % Sodium Chloride 100 ML 10 MG IVCONT (20:11)
--- NOTE | 2023-07-08 20:21 | P.HPHOSP_ITS ---
History of Present Illness Date of Service: 07/08/23 Chief Complaint: Palpitations This is a 82-year-old female with pertinent history of chronic hypoxemic respiratory failure secondary to COPD on 2 L baseline supplemental oxygen, AFib on Eliquis, zcv-lkeukjg-kmlclfjfe diabetes mellitus, history of CRISTA noncompliant with CPAP, hypothyroidism, coronary artery disease, congestive heart failure with combined systolic and diastolic dysfunction who presents to the emergency department for evaluation of palpitations. Patient states she has had palpitations for a while, on and off and she presents today as her palpitations got worse. Patient states that since her hip fracture surgery in January, she has not been back to baseline. She works with physical therapy at home. Denies dyspnea, orthopnea or PND. No fever, chills, chest discomfort, cough, abdominal pain, changes in urinary or bowel habits. Does not use CPAP at bedtime as she is claustrophobic. In the emergency department, patient was found to be in AFib with RVR and initiated on IV diltiazem drip. Review of Systems 2 Cardiovascular: Cardiovascular: Reports rapid heart rate Respiratory: Respiratory: Reports no additional respiratory complaints Gastrointestinal: Gastrointestinal: Reports no additional gastrointestinal complaints Genitourinary: Genitourinary: Reports no additional female genitourinary complaints PENDING SALE TO [facility] Medical History COPD (chronic obstructive pulmonary disease) Strong odor of stools Dysuria Pulmonary nodules Diarrhea Weakness Bradycardia Ingrowing nail Impacted cerumen of right ear Urinary incontinence Impacted cerumen of right ear Pulmonary nodule Chronic anticoagulation First degree atrioventricular block Atrial fibrillation Chronic pain syndrome 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 Low back pain Respiratory failure with hypoxia and hypercapnia Lower extremity weakness Nasal congestion Otitis externa Coronary artery disease Restrictive lung disease Diarrhea History of spinal stenosis Fibromyalgia Obesity (BMI 30-39.9) Carpal tunnel syndrome Abdominal aortic aneurysm Hypothyroid Obstructive sleep apnea Congestive heart failure Pernicious anemia Paroxysmal atrial fibrillation DVT (deep venous thrombosis) Diverticulitis GERD (gastroesophageal reflux disease) HTN (hypertension) Clostridium difficile colitis CAD (coronary artery disease) Hypercholesterolemia Family History Father Hypertension CVD (cardiovascular disease) Mother Colon cancer Sister Leukemia Sister Colon cancer Son Lung cancer Colon polyps Surgical History S/P BREANN-BSO (total abdominal hysterectomy and bilateral salpingo-oophorectomy) History of arthroplasty of left shoulder Hx of cholecystectomy H/O angioplasty Hx of appendectomy H/O cardiac catheterization Social History Household Members: None Housing: Apartment Do you presently have visiting nurse or other home services: Yes ([facility]) Alcohol intake: never Patient Tobacco Use Status: Former Tobacco user Tobacco use type: Cigarette Years Smoked: stopped 2009 e-Cigarette/Vaping Use: Never Used Second Hand Smoke Exposure: No Advance Directives: Yes Advance Directives on File: Yes Advance Directives Date on File: 10/10/21 service: No Current occupational status: retired Current occupational exposures/hazards: No Cognitive needs: No Hearing needs: No Vision needs: Yes Meds Allergies Allergy/AdvReac Type Severity Reaction Status Date / Time morphine [MORPHINE] Allergy Unknown RASH Verified 07/08/23 16:33 pregabalin [From LYRICA] Allergy Unknown NAUSEA, Verified 07/08/23 16:33 felt high on drugs Active Medications: Current Medications Diltiazem HCl 125 mg/ Sodium (Chloride) 125 mls @ 0 mls/hr IVCONT .Q0M [facility]; Protocol Last Admin: 07/08/23 20:11 Dose: 10 mg/hr, 10 mls/hr Home Medications ?Medication ?Instructions ?Recorded ?Confirmed ?Last Taken ?Type aspirin 81 mg tablet 81 mg PO DAILY 12/01/19 07/01/23 02/08/23 History cholecalciferol (vitamin D3) 25 25 mcg PO DAILY 12/01/19 07/01/23 02/08/23 History mcg (1,000 unit) capsule (Vitamin D3) dicyclomine 10 mg capsule 10 - 20 mg PO QID PRN Abdominal 12/01/19 07/01/23 Unknown History Pain ferrous sulfate 325 mg (65 mg 325 mg PO DAILY 12/01/19 07/01/23 02/08/23 History iron) tablet acyclovir 5 % topical ointment 1 appl topical 6XD PRN genital 02/08/23 07/01/23 Unknown History lesions tirzepatide 2.5 mg/0.5 mL mg subcut 02/28/23 07/01/23 Unknown History subcutaneous pen injector (Marcio) tramadol 50 mg tablet 50 mg PO BEDTIME 06/21/23 07/01/23 Unknown History Physical Exam 2 Vital Signs and Narrative: Vital Signs: Last Vital Signs Temp 98.4 F 07/08/23 19:59 Pulse 150 H 07/08/23 20:11 Resp 22 H 07/08/23 19:59 BP 137/81 07/08/23 20:11 Pulse Ox 95 07/08/23 19:59 O2 Del Method Nasal Cannula 07/08/23 19:59 O2 Flow Rate 2 07/08/23 19:59 Oxygen Flow Rate 2 07/08/23 16:30 BMI result Body Mass Index 39.3 Elderly female lying in bed in mild distress on supplemental oxygen Neck supple, no JVD Irregularly irregular, S1-S2 heard Decreased breath sounds at bases Abdomen soft nontender, no guarding, no rigidity Patient is awake, alert and oriented to self, place, time and person ; no focal motor deficit Psych: Normal mood No pedal edema Results Labs 07/08/23 16:50 07/08/23 16:50 Labs: Laboratory Results - last 24 hr 07/08/23 16:50 MCV 85.4 MCH 26.8 L MCHC 31.4 RDW 15.9 Plt Count 321 D MPV 9.2 L Immature Gran % (Auto) 0.4 Neut % (Auto) 64.3 Lymph % (Auto) 23.0 [place] % (Auto) 11.0 Eos % (Auto) 1.0 Baso % (Auto) 0.3 Lymph # (Auto) 2.3 [place] # (Auto) 1.1 Eos # (Auto) 0.1 Baso # (Auto) 0.0 Abs Immat Gran (auto) 0.04 H Absolute Neuts (auto) 6.4 Absolute Nucleated RBC 0.000 Nucleated RBC % (auto) 0.0 Hold Blue Top SEE NOTE Anion Gap 16 Estim Creat Clear Calc 58.7 Estimated GFR > 60 Random Glucose 105 Calcium 9.8 Total Bilirubin 0.6 Direct Bilirubin 0.2 AST 31 ALT 20 Alkaline Phosphatase 174 H Troponin I High Sens 25.8 H B-Natriuretic Peptide 429 H Total Protein 7.0 Albumin 3.2 L Assessment and Plan (1) Atrial fibrillation with RVR: Status: Acute Plan This is a 82-year-old female with pertinent history of chronic hypoxemic respiratory failure secondary to COPD, AFib on Eliquis, djd-egwuvlv-ngsqvjydx diabetes mellitus, history of CRISTA noncompliant with CPAP, hypothyroidism, coronary artery disease, 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 #. AFib with RVR: Will admit patient with cardiac monitoring. On IV diltiazem drip. Obtaining TSH and consulting Cardiology. Patient on Eliquis and beta- becca #. Chronic hypoxemic respiratory failure due to COPD: On home baseline oxygen. No exacerbation during admission. Continue home inhalers #. Coronary artery disease: On antiplatelet agent and high-intensity statin #. Congestive heart failure with combined systolic and diastolic dysfunction: On beta-becca and diuretics. No decompensation during admission. Not on LUCIANO- inhibitor or ARB #. Cfx-vpvknan-phfwefxsg diabetes mellitus: Initiating Accu-Cheks with sliding scale insulin #. Hypothyroidism: On Synthroid #. CRISTA: Refused CPAP at bedtime #. Obesity: Counseled regarding diet and exercise #. Debility due to recent hip fracture: Is on physical therapy at home, will continue while in the hospital Med rec pending DVT prophylaxis: Zhao Full code Admit as inpatient and will require two night minimum hospital stay for IV diltiazem drip and close monitoring of heart rate (as above), which is not possible in a lesser acute setting. Specialist consult pending Quality Stroke Does the patient have a stroke diagnosis?: No VTE Prior VTE?: No VTE Risk Level:: Medical - moderate - high VTE Device Contraindication: Treatment Not Indicated VTE Drug Contraindication: N/A - Med Ordered
[2023-07-08 20:49] LABS: Glucose, Whole Blood 98 mg/dL (60-115)
[2023-07-08] MEDS: Apixaban 5 MG TABLET PO (20:53)
--- NOTE | 2023-07-08 22:47 | PC.NURSE ---
Pt HR ranging from low 90's-low 100s, per Dr. Santa decrease. Dilt Drip decreased to 10mg/hr.
--- NOTE | 2023-07-08 22:56 | PHA.MEDREC ---
Pharmacy Consult ? Medication Reconciliation Pharmacy has completed the medication reconciliation. Patient with paperwork from [facility], called to confirm last B12 injection however her paperwork is from her discharge on 05/16. They were not able to tell me and pt is unsure.
--- NOTE | 2023-07-08 23:12 | PC.NURSE ---
Dilt drip paused, HR in the mid 80s.
--- NOTE | 2023-07-08 23:25 | PC.NURSE ---
this rn assumed care of pt, pt resting in stretcher, no acute distress noted. pt has purewick in place at this time. pt a fib on tele 88-90bpm, dilt drip currently paused per protocol.
[2023-07-09] VITALS (16 sets, daily range): BP systolic 97–191; BP diastolic 44–90; PULSE 86–136; RESP 16–22; TEMP 36.3–37.2; O2SAT 92–96
[2023-07-09] MEDS: 0.9 % Sodium Chloride Flush 3 ML SYRINGE IVFLUSH ×2 (00:53→17:38)
--- NOTE | 2023-07-09 03:15 | PC.NURSE ---
aware of pt pulse rate at this time, verbal order to restart dilt drip at this time, drip started at 10mg/hr. 100-133bpm.
--- NOTE | 2023-07-09 04:34 | PC.NURSE ---
drip stopped per protocol at this time, pt 84-94bpm at this time.
--- NOTE | 2023-07-09 04:50 | PC.NURSE ---
pt reporting 9/10 lower back pain at this time, pt reports tylenol is not helpful with pain. aware, pt medicated as follows.
[2023-07-09 05:18] LABS: Hematocrit 33.9 % (37.0-47.0); Hemoglobin 10.4 g/dl (12.0-16.0); Mean Corpuscular HGB Conc 30.7 g/dl (31.0-35.0); Mean Corpuscular Hemoglobin 26.5 pg (27.0-33.0); Mean Corpuscular Volume 86.3 fL (80.0-98.0); Mean Platelet Volume 9.4 fL (9.4-12.3); Platelet Count 290 X10*3/uL (160-400); Red Blood Count 3.93 X10*6/uL (4.20-5.50); Red Cell Distribution Width 15.9 % (11.0-16.0); White Blood Count 8.9 X10*3/uL (4.8-10.8)
[2023-07-09] MEDS: traMADoL HCL 50 MG TABLET 25 MG PO ×2 (05:21→22:26)
[2023-07-09 05:35] LABS: Anion Gap 17 (12-20); Blood Urea Nitrogen 10 mg/dL (9-16); Calcium 9.8 mg/dL (8.4-10.2); Carbon Dioxide 28 mmol/L (22-29); Chloride 107 mmol/L (96-108); Creatinine Clr Calc Pharmacy 57.3; Estimated Glomerular Filt Rate > 60; Glucose Random 87 mg/dL (60-115); Potassium 4.6 mmol/L (3.3-5.1); Sodium 147 mmol/L (135-145)
[2023-07-09 05:55] LABS: Thyroid Stimulating Hormone 4.15 uIU/mL (0.32-4.0)
[2023-07-09 07:07] LABS: Glucose, Whole Blood 84 mg/dL (60-115)
--- NOTE | 2023-07-09 08:05 | PC.NURSE ---
this RN resumed care of pt at 0700. a&ox4. vss and up to date. sinus tachy on the school lunch monitor - between 100-105 bpm. pt denies chest pain/palpitations. pt remains on 2L via NC which is her baseline. pt resting on left side - states it promotes comfort. no sob/wob noted. respirations even and unlabored. resting comfortably w/ the lights dimmed. pt waiting for bed assignment at this time. plan of care ongoing. call renteria placed within reach.
[2023-07-09] MEDS: ondansetron HCL 4 MG/2 ML VIAL IVPUSH (09:31)
[2023-07-09] MEDS: Acetaminophen 325 MG TABLET 650 MG PO (09:31)
--- NOTE | 2023-07-09 09:31 | PC.NURSE ---
pt c/o abd discomfort and nausea. prn medication utilized. effectiveness pending. pt remains on 2L via NC - no sob/wob noted. respirations even and unlabored. pt continues to position herself on left side to promote comfort. plan of care ongoing. call renteria placed within reach.
--- NOTE | 2023-07-09 11:11 | PC.NURSE ---
cardizem drip remains paused at this time d/t HR remaining stable/wnl. pt currently nsr around 90bpm. pt still denying chest pain/palpitations. pt seen by admitting provider/aware of plan of care. resting comfortably w/ lights dimmed. plan of care ongoing. call renteria placed within reach.
[2023-07-09 11:36] LABS: Glucose, Whole Blood 91 mg/dL (60-115)
--- NOTE | 2023-07-09 11:41 | MHC.CM.PN ---
IMM 07/09/23, Pt lives alone and has home care, she describes as everything I need . She has home health aids and nurses that come to the home, she could not remember the name of the agency they come from. She has all the medical equipment that she needs including: walker, W/C, home O2, and other things. Her PCP is Dr. Po. NUÑEZ to follow for DC needs.
--- NOTE | 2023-07-09 13:18 | HO.PM.IMPN ---
Subjective Subjective Date of Service: 07/09/23 Interval History: Admitted due to symptoms of palpitations diagnosed to be in atrial fibrillation with rapid ventricular response treated with IV Cardizem currently in AFib with ventricular rate in high 90s with intermittent rapid ventricular response. Patient feeling better denies chest pain, denies palpitation, feels tired, no shortness of breath. Review of Systems All other system reviewed and negative Physical Exam Vital Signs: Vital Signs: Last Vital Signs Temp 98.9 F 07/09/23 12:00 Pulse 91 07/09/23 12:00 Resp 19 07/09/23 12:00 BP 127/61 07/09/23 12:00 Pulse Ox 94 07/09/23 12:00 O2 Del Method Nasal Cannula 07/09/23 12:00 O2 Flow Rate 2 07/09/23 12:00 Oxygen Flow Rate 2 07/08/23 16:30 BMI result Body Mass Index 39.3 Const: Other: General awake alert x3, resting comfortably in no acute distress. Neck supple no JVD. CVS irregular rate rhythm, Respiratory lungs clear to auscultation, no respiratory distress, no wheeze, no rhonchi. Gastrointestinal abdomen soft, non tender, bowel sounds audible Extremities no edema. Neuro non focal Skin no rash Psych appropriate affect Objective Data Active Medications Acetaminophen (Acetaminophen 325 Mg Tablet) 650 mg PO Q6H PRN PRN Reason: Pain, Mild (Pain Scale 1-3) Last Admin: 07/09/23 09:31 Dose: 650 mg Documented By: TATY Glucose (Glucose Gel 15 Gm Gel..Gram.) 15 gm PO Q15M PRN; Protocol PRN Reason: per Hypoglycemia Standing Ord. Diltiazem HCl 125 mg/ Sodium (Chloride) 125 mls @ 0 mls/hr IVCONT .Q0M [facility]; Protocol Last Titration: 07/09/23 04:34 Dose: 0 mg/hr, 0 mls/hr Documented By: KAYLEEN Dextrose ([id number]) 250 mls @ 750 mls/hr IV Q15M PRN; Protocol PRN Reason: per Hypoglycemia Standing Ord. Insulin Human Lispro (Insulin Lispro 100 Unit/Ml 3 Ml Vial) 0 unit SUBCUT QIDACHS [facility]; Protocol Last Admin: 07/09/23 12:24 Dose: Not Given Documented By: TATY Non-Admin Reason: No Insulin Coverage Melatonin (Melatonin 3 Mg Tablet) 6 mg PO BEDTIME PRN PRN Reason: Insomnia Ondansetron HCl (Ondansetron Hcl 4 Mg/2 Ml Vial) 4 mg IVPUSH Q8H PRN PRN Reason: Nausea and Vomiting Last Admin: 07/09/23 09:31 Dose: 4 mg Documented By: TATY Sodium Chloride (0.9 % Sodium Chloride Flush 3 Ml Syringe) 3 ml IVFLUSH QSHIFT DANIEL Last Admin: 07/09/23 08:00 Dose: Not Given Documented By: TATY Non-Admin Reason: Patient Asleep Labs 07/09/23 04:28 07/09/23 04:28 Labs: Laboratory Results - last 24 hr 07/08/23 07/08/23 07/09/23 16:50 20:46 04:28 MCV 85.4 86.3 MCH 26.8 L 26.5 L MCHC 31.4 30.7 L RDW 15.9 15.9 Plt Count 321 D 290 MPV 9.2 L 9.4 Immature Gran % (Auto) 0.4 Neut % (Auto) 64.3 Lymph % (Auto) 23.0 [place] % (Auto) 11.0 Eos % (Auto) 1.0 Baso % (Auto) 0.3 Lymph # (Auto) 2.3 [place] # (Auto) 1.1 Eos # (Auto) 0.1 Baso # (Auto) 0.0 Abs Immat Gran (auto) 0.04 H Absolute Neuts (auto) 6.4 Absolute Nucleated RBC 0.000 0.000 Nucleated RBC % (auto) 0.0 0.0 Hold Blue Top SEE NOTE Anion Gap 16 17 Estim Creat Clear Calc 58.7 57.3 Estimated GFR > 60 > 60 POC Glucose 98 Random Glucose 105 87 Calcium 9.8 9.8 Total Bilirubin 0.6 Direct Bilirubin 0.2 AST 31 ALT 20 Alkaline Phosphatase 174 H Troponin I High Sens 25.8 H B-Natriuretic Peptide 429 H Total Protein 7.0 Albumin 3.2 L TSH 4.15 H 07/09/23 07/09/23 07:04 11:32 MCV MCH MCHC RDW Plt Count MPV Immature Gran % (Auto) Neut % (Auto) Lymph % (Auto) [place] % (Auto) Eos % (Auto) Baso % (Auto) Lymph # (Auto) [place] # (Auto) Eos # (Auto) Baso # (Auto) Abs Immat Gran (auto) Absolute Neuts (auto) Absolute Nucleated RBC Nucleated RBC % (auto) Hold Blue Top Anion Gap Estim Creat Clear Calc Estimated GFR POC Glucose 84 91 Random Glucose Calcium Total Bilirubin Direct Bilirubin AST ALT Alkaline Phosphatase Troponin I High Sens B-Natriuretic Peptide Total Protein Albumin TSH Assessment and Plan (1) Atrial fibrillation with RVR: Status: Acute Plan 82-year-old female with pertinent history of chronic hypoxemic respiratory failure secondary to COPD, AFib on Eliquis, arl-epqzvsr-wtvdqmeof diabetes mellitus, history of CRISTA noncompliant with CPAP, hypothyroidism, coronary artery disease, 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 #. AFib with RVR: Status post IV Cardizem drip heart rate improved, will resume home dose of Toprol-XL 50 mg daily, DC Cardizem drip continue Eliquis Await Cardiology input continue tele monitor #. Chronic hypoxemic respiratory failure due to COPD: On home baseline oxygen. Chest x-ray unremarkable, No exacerbation during admission. Continue home inhalers #. Coronary artery disease: On antiplatelet agent and high-intensity statin #. Congestive heart failure with combined systolic and diastolic dysfunction: On beta-becca and diuretics. No decompensation during admission. Not on LUCIANO-inhibitor or ARB #. Ceg-lfduova-azkoyckzv diabetes mellitus: Initiating Accu-Cheks with sliding scale insulin #. Hypothyroidism: TSH 4.15 continue home dose of Synthroid #. CRISTA: Not using CPAP due to claustrophobia #. Obesity class 2: Recommend low-calorie diet/exercise #. Debility due to recent hip fracture: Continue PT # mood disorder continue duloxetine DVT prophylaxis: Eliquis Full code Will require continued inpatient hospital stay for close monitoring of heart rate (as above), with medication adjustment, which is not possible in a lesser acute setting. Specialist consult pending Quality Stroke Does the patient have a stroke diagnosis?: No VTE Prior VTE?: No VTE Risk Level:: Medical - moderate - high VTE Device Contraindication: Treatment Not Indicated VTE Drug Contraindication: N/A - Med Ordered
[2023-07-09] MEDS: Metoprolol Succinate ER 50 MG TAB.ER.24H PO (14:41)
--- NOTE | 2023-07-09 14:45 | PC.NURSE ---
medication administered per provider order. pt remains in nsr at this time. denies c/p, palpitations. pt remains on 2L via NC. no sob/wob noted. call renteria placed within reach.
[2023-07-09 17:17] LABS: Glucose, Whole Blood 88 mg/dL (60-115)
--- NOTE | 2023-07-09 18:23 | MHC.EDTECH ---
Woke patient to take vitals. Offered patient liquids and a snack patient refused. Purwick still in place.
--- NOTE | 2023-07-09 20:59 | P.CONCA_ITS ---
History of Present Illness History of Present Illness Date of Service: 07/09/23 Chief complaint: Palpitations Narrative: Pleasant 83-year-old female with known history of COPD, atrial fibrillation on Eliquis who is presenting palpitations. She has been noticed to be in supraventricular tachycardia. This was self-limiting. No obvious atrial fibrillation noted on telemetry or EKGs. She was given Cardizem but has been taken off of that currently. She is getting her home dose of metoprolol. She is saying that she was getting some chills and was also coughing and had productive sputum. She has known history of COPD as mentioned. 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 Low back pain Respiratory failure with hypoxia and hypercapnia Lower extremity weakness Nasal congestion Otitis externa Coronary artery disease Restrictive lung disease Diarrhea History of spinal stenosis Fibromyalgia Obesity (BMI 30-39.9) Carpal tunnel syndrome Abdominal aortic aneurysm Hypothyroid Obstructive sleep apnea Congestive heart failure Pernicious anemia Paroxysmal atrial fibrillation DVT (deep venous thrombosis) Diverticulitis GERD (gastroesophageal reflux disease) HTN (hypertension) Clostridium difficile colitis CAD (coronary artery disease) Hypercholesterolemia Family History Family History Father Hypertension CVD (cardiovascular disease) Mother Colon cancer Sister Leukemia Sister Colon cancer Son Lung cancer Colon polyps Surgical History Surgical History S/P BREANN-BSO (total abdominal hysterectomy and bilateral salpingo-oophorectomy) History of arthroplasty of left shoulder Hx of cholecystectomy H/O angioplasty Hx of appendectomy H/O cardiac catheterization Social History Social History Household Members: None Housing: Apartment [facility] you [facility] Alcohol intake: never Patient Tobacco Use Status: Former Tobacco user Tobacco use type: Cigarette Years Smoked: stopped 2009 e-Cigarette/Vaping Use: Never Used Second Hand Smoke Exposure: No Advance Directives: Yes Advance Directives on File: Yes Advance Directives Date on File: 10/10/21 Nutrition Risks: No Nutritional Risk service: No Current occupational status: retired Current occupational exposures/hazards: No Cognitive needs: No Hearing needs: No Vision needs: Yes Meds Allergies Allergy/AdvReac Type Severity Reaction Status Date / Time morphine [MORPHINE] Allergy Unknown RASH Verified 07/08/23 16:33 pregabalin [From LYRICA] Allergy Unknown NAUSEA, Verified 07/08/23 16:33 felt high on drugs Active Medications: Current Medications Acetaminophen (Acetaminophen 325 Mg Tablet) 650 mg PO Q6H PRN PRN Reason: Pain, Mild (Pain Scale 1-3) Last Admin: 07/09/23 09:31 Dose: 650 mg Apixaban (Apixaban 5 Mg Tablet) 5 mg PO BID COUNT [facility]CLUDES [facility] Aspirin (Aspirin Enteric Coated 81 Mg Tablet.) 81 mg PO DAILY COUNT INCLUDES [facility] Atorvastatin Calcium (Atorvastatin Calcium 80 Mg Tablet) 80 mg PO BEDTIME COUNT INCLUDES [facility] Dicyclomine HCl (Dicyclomine Hcl 10 Mg Capsule) 10 mg PO Q6H PRN PRN Reason: Abdominal Pain Duloxetine HCl (Duloxetine Hcl 30 Mg Capsule.) 30 mg PO DAILY COUNT INCLUDES [facility] Ezetimibe (Ezetimibe 10 Mg Tablet) 10 mg PO DAILY COUNT INCLUDES [facility] Fluticasone/Vilanterol (Fluticasone/Vilanterol 200/25 Blst.W.Dev) 1 puff INHALE RDAILY COUNT INCLUDES [facility] Furosemide (Furosemide 40 Mg Tablet) 40 mg PO DAILY COUNT [facility]CLUDES [facility]; Protocol Glucose (Glucose Gel 15 Gm Gel..Gram.) 15 gm PO Q15M PRN; Protocol PRN Reason: per Hypoglycemia Standing Ord. Dextrose (D10) 250 mls @ 750 mls/hr IV Q15M PRN; Protocol PRN Reason: per Hypoglycemia Standing Ord. Insulin Human Lispro (Insulin Lispro 100 Unit/Ml 3 Ml Vial) 0 unit SUBCUT QIDACHS COUNT [facility]CLUDES [facility]; Protocol Last Admin: 07/09/23 17:39 Dose: Not Given Levalbuterol HCl (Levalbuterol Hcl 1.25 Mg/3 Ml Vial.Neb) 1.25 mg INHALE Q4H PRN PRN Reason: sob Levothyroxine Sodium (Levothyroxine Sodium 100 Mcg Tablet) 100 mcg PO DAILY@0600 COUNT [facility]CLUDES [facility] Melatonin (Melatonin 3 Mg Tablet) 6 mg PO BEDTIME PRN PRN Reason: Insomnia Metoprolol Succinate (Metoprolol Succinate Er 50 Mg Tab.Er.24h) 50 mg PO DAILY COUNT [facility]CLUD[facility]; Protocol Nitroglycerin (Nitroglycerin 0.4 Mg Tab.Subl) 0.4 mg SUBLINGUAL Q5M PRN PRN Reason: for angina Omeprazole (Omeprazole 20 Mg Capsule.Dr) 20 mg PO DAILY@0630 COUNT [facility]CLUDES [facility] Ondansetron HCl (Ondansetron Hcl 4 Mg/2 Ml Vial) 4 mg IVPUSH Q8H PRN PRN Reason: Nausea and Vomiting Last Admin: 07/09/23 09:31 Dose: 4 mg Sodium Chloride (0.9 % Sodium Chloride Flush 3 Ml Syringe) [facility] Last Admin: 07/09/23 17:38 Dose: 3 ml Tiotropium [place] (Tiotropium [place] 2.5 Mcg 1 Puff/2.5 Mcg Mist.Inhal) 2 puff [facility] Medications ?Medication ?Instructions ?Recorded ?Confirmed ?Last Taken ?Type cholecalciferol (vitamin D3) 25 25 mcg PO DAILY 12/01/19 07/08/23 02/08/23 History mcg (1,000 unit) capsule (Vitamin D3) dicyclomine 10 mg capsule 10 mg PO Q6H PRN Abdominal Pain 12/01/19 07/08/23 Unknown History ferrous sulfate 325 mg (65 mg 325 mg PO DAILY 12/01/19 07/08/23 02/08/23 History iron) tablet tramadol 50 mg tablet 50 mg PO Q6H PRN Pain 06/21/23 07/08/23 Unknown History aspirin 81 mg tablet,delayed 81 mg PO DAILY 07/08/23 07/08/23 Unknown History release atorvastatin 80 mg tablet 80 mg PO BEDTIME 07/08/23 07/08/23 Unknown History dulaglutide 3 mg/0.5 mL 3 mg subcut FR 07/08/23 07/08/23 Unknown History subcutaneous pen injector (Trulicity) duloxetine 30 mg capsule,delayed 30 mg PO DAILY 07/08/23 07/08/23 Unknown History release sprinkle furosemide 40 mg tablet 40 mg PO DAILY 07/08/23 07/08/23 Unknown History levothyroxine 100 mcg tablet 100 mcg PO DAILY@0600 07/08/23 07/08/23 Unknown History meclizine 12.5 mg tablet 25 mg PO TID PRN for motion 07/08/23 07/08/23 Unknown History sickness omeprazole 20 mg capsule,delayed 20 mg PO DAILY@0630 07/08/23 07/08/23 Unknown History release umeclidinium 62.5 mcg/actuation 1 inh inhalation DAILY 07/08/23 07/08/23 Unknown History blister powder for inhalation (Incruse Ellipta) Physical Exam 2 Vital Signs: Vital Signs: Last Vital Signs Temp 97.7 F 07/09/23 17: Pulse 86 07/09/23 17:22 Resp 22 H 07/09/23 17:22 BP 134/56 L 07/09/23 17:22 Pulse Ox 96 07/09/23 17:22 O2 Del Method Nasal Cannula 07/09/23 17:22 O2 Flow Rate 2 07/09/23 17:22 Oxygen Flow Rate 2 07/08/23 16:30 BMI result Body Mass Index 39.3 GENERAL APPEARANCE: in no acute distress, pleasant. NECK: no carotid bruit, no jugular venous distention. SKIN: no suspicious lesions, warm and dry. HEART: no murmurs, regular rate and rhythm. LUNGS: clear to auscultation bilaterally. ABDOMEN: soft, nontender. EXTREMITIES: no edema. PERIPHERAL PULSES: equal. NEUROLOGIC: No gross deficits, AAO X 3 Objective Labs and Meds 07/09/23 04:28 07/09/23 04:28 Lab results: Laboratory Results - last 24 hr 07/09/23 07/09/23 07/09/23 04:28 07:04 11:32 WBC 8.9 RBC 3.93 L Hgb 10.4 L Hct 33.9 L MCV 86.3 MCH 26.5 L MCHC 30.7 L RDW 15.9 Plt Count 290 MPV 9.4 Absolute Nucleated RBC 0.000 Nucleated RBC % (auto) 0.0 Sodium 147 H Potassium 4.6 Chloride 107 Carbon Dioxide 28 Anion Gap 17 BUN 10 Creatinine 0.81 Estim Creat Clear Calc 57.3 Estimated GFR > 60 POC Glucose 84 91 Random Glucose 87 Calcium 9.8 TSH 4.15 H 07/09/23 17:10 WBC RBC Hgb Hct MCV MCH MCHC RDW Plt Count MPV Absolute Nucleated RBC Nucleated RBC % (auto) Sodium Potassium Chloride Carbon Dioxide Anion Gap BUN Creatinine Estim Creat Clear Calc Estimated GFR POC Glucose 88 Random Glucose Calcium TSH Assessment and Plan (1) SVT (supraventricular tachycardia): Status: Acute Plan Pleasant 83-year-old female with known history of atrial fibrillation on anticoagulation presenting with palpitations and narrow complex regular tachycardia which is likely supraventricular tachycardia. She has been out of it at this point. She is complaining of some chills and cough and phlegm and has known COPD. It is possible that she had viral illness and has some bronchitis which led to arrhythmia. In any case she is stable currently. If she has recurrent episodes then can add Cardizem CD 120 mg daily. Thank you for allowing me to participate in the care of your patient. Please feel free to contact me if you have any questions. Procedures Date of Service Date of Service: 07/09/23
[2023-07-09 21:51] LABS: Glucose, Whole Blood 105 mg/dL (60-115)
[2023-07-09] MEDS: Atorvastatin Calcium 80 MG TABLET PO (22:26)
[2023-07-09] MEDS: Apixaban 5 MG TABLET PO (22:26)
--- NOTE | 2023-07-09 23:53 | MHC.EDTECH ---
Patient had a bowl movement. Patient was cleaned up, small red sherly was noticed on left hip barrier cream applied. Patient advised to switch positions and not to lay on left side. patient is now laying on right side. Jeferson Rose notified.
[2023-07-10] VITALS (12 sets, daily range): BP systolic 114–137; BP diastolic 56–75; PULSE 76–92; RESP 16–24; TEMP 36.2–36.6; O2SAT 92–96
[2023-07-10] MEDS: levalbuterol HCL 1.25 MG/3 ML VIAL.NEB INHALE ×2 (03:38→18:22)
[2023-07-10] MEDS: Omeprazole 20 MG CAPSULE.DR PO (06:59)
[2023-07-10] MEDS: Levothyroxine Sodium 100 MCG TABLET PO (06:59)
[2023-07-10] MEDS: Aspirin Enteric Coated 81 MG TABLET.DR PO (07:54)
[2023-07-10] MEDS: Ezetimibe 10 MG TABLET PO (07:54)
[2023-07-10] MEDS: DULoxetine HCl 30 MG CAPSULE.DR PO (07:54)
[2023-07-10] MEDS: Apixaban 5 MG TABLET PO ×2 (07:54→21:11)
[2023-07-10] MEDS: Metoprolol Succinate ER 50 MG TAB.ER.24H PO (07:55)
[2023-07-10] MEDS: Furosemide 40 MG TABLET PO (07:55)
[2023-07-10 08:02] LABS: Glucose, Whole Blood 80 mg/dL (60-115)
--- NOTE | 2023-07-10 08:46 | MHC.CM.PN ---
Addendum entered by Tatiana Eisenberg 07/10/23 08:52: Pt states she will need BLS transport home at discharge. Original Note: This CM met with pt to clarify the services she receives at home and discuss her discharge plan. Pt states she is active with [facility], return referral placed in [facility]. Pt states she has [facility] coming to the home to provide personal care. Pt also states she has home O2 through [facility]. PT evaluated pt and they are recommending [facility]. This CM discussed this recommendation with pt and she is not in agreement with going to STR. Pt states she wants to return home with resumption of her previous services. HCP on file and verified.
[2023-07-10] MEDS: dilTIAZem HCL 30 MG TABLET PO ×3 (10:42→21:11)
[2023-07-10] MEDS: Tiotropium Bromide 2.5 mcg 1 PUFF/2.5 MCG MIST.INHAL 2 PUFF INHALE (11:26)
[2023-07-10] MEDS: Fluticasone/Vilanterol 200/25 BLST.W.DEV 1 PUFF INHALE (11:26)
[2023-07-10 11:28] LABS: Glucose, Whole Blood 115 mg/dL (60-115)
--- NOTE | 2023-07-10 14:01 | HO.PM.IMPN ---
Subjective Subjective Date of Service: 07/10/23 Interval History: Complaining of left buttock discomfort, generally feels weak, complaining intermittent palpitations no headache no dizziness, tolerating diet tele monitor showed atrial fibrillation with ventricular rate in 120s Review of Systems All other system reviewed and negative Physical Exam Vital Signs: Vital Signs: Last Vital Signs Temp 97.6 F 07/10/23 12:00 Pulse 82 07/10/23 12:00 Resp 20 07/10/23 12:00 BP 136/62 07/10/23 12:00 Pulse Ox 96 07/10/23 12:00 O2 Del Method Nasal Cannula 07/10/23 12:00 O2 Flow Rate 2 07/10/23 12:00 Oxygen Flow Rate 2 07/08/23 16:30 BMI result Body Mass Index 39.3 Const: Other: General awake alert x3, resting comfortably in no acute distress. Neck supple no JVD. CVS rapid irregular rate rhythm, Respiratory lungs clear to auscultation, no respiratory distress, no wheeze, no rhonchi. Gastrointestinal abdomen soft, non tender, bowel sounds audible Extremities no pitting edema./left hip normal examination, good range of motion Neuro non focal Skin dry scabs left buttock Psych appropriate affect Objective Data Active Medications Acetaminophen (Acetaminophen 325 Mg Tablet) 650 mg PO Q6H PRN PRN Reason: Pain, Mild (Pain Scale 1-3) Last Admin: 07/09/23 09:31 Dose: 650 mg Documented By: TATY Apixaban (Apixaban 5 Mg Tablet) 5 mg PO BID [facility] Last Admin: 07/10/23 07:54 Dose: 5 mg Documented By: PORFIRIO Aspirin (Aspirin Enteric Coated 81 Mg Tablet.Dr) 81 mg PO DAILY [facility] Last Admin: 07/10/23 07:54 Dose: 81 mg Documented By: PORFIRIO Atorvastatin Calcium (Atorvastatin Calcium 80 Mg Tablet) 80 mg PO BEDTIME [facility] Last Admin: 07/09/23 22:26 Dose: 80 mg Documented By: LORRIE Dicyclomine HCl (Dicyclomine Hcl 10 Mg Capsule) 10 mg PO Q6H PRN PRN Reason: Abdominal Pain Diltiazem HCl (Diltiazem Hcl 30 Mg Tablet) 30 mg PO TID [facility]; Protocol Last Admin: 07/10/23 10:42 Dose: 30 mg Documented By: TRISTAN Duloxetine HCl (Duloxetine Hcl 30 Mg Capsule.Dr) 30 mg PO DAILY [facility] Last Admin: 07/10/23 07:54 Dose: 30 mg Documented By: PORFIRIO Ezetimibe (Ezetimibe 10 Mg Tablet) 10 mg PO DAILY [facility] Last Admin: 07/10/23 07:54 Dose: 10 mg Documented By: PORFIRIO Fluticasone/Vilanterol (Fluticasone/Vilanterol 200/25 Blst.W.Dev) 1 puff INHALE RDAILY [facility] Last Admin: 07/10/23 11:26 Dose: 1 puff Documented By: CHINA Furosemide (Furosemide 40 Mg Tablet) 40 mg PO DAILY [facility]; Protocol Last Admin: 07/10/23 07:55 Dose: 40 mg Documented By: PORFIRIO Glucose (Glucose Gel 15 Gm Gel..Gram.) 15 gm PO Q15M PRN; Protocol PRN Reason: per Hypoglycemia Standing Ord. Guaifenesin/Dextromethorphan (Guaifenesin Dm 100/10/5 Ml 5 Ml Syrup) 10 ml PO Q6H PRN PRN Reason: cough Dextrose (D10) 250 mls @ 750 mls/hr IV Q15M PRN; Protocol PRN Reason: per Hypoglycemia Standing Ord. Insulin Human Lispro (Insulin Lispro 100 Unit/Ml 3 Ml Vial) 0 unit SUBCUT QIDACHS [facility]; Protocol Last Admin: 07/10/23 11:32 Dose: Not Given Documented By: TRISTAN Non-Admin Reason: No Insulin Coverage Levalbuterol HCl (Levalbuterol Hcl 1.25 Mg/3 Ml Vial.Neb) 1.25 mg INHALE Q4H PRN PRN Reason: sob Last Admin: 07/10/23 03:38 Dose: 1.25 mg Documented By: MATTON Levothyroxine Sodium (Levothyroxine Sodium 100 Mcg Tablet) 100 mcg PO DAILY@0600 [facility] Last Admin: 07/10/23 06:59 Dose: 100 mcg Documented By: AMINAH Melatonin (Melatonin 3 Mg Tablet) 6 mg PO BEDTIME PRN PRN Reason: Insomnia Metoprolol Succinate (Metoprolol Succinate Er 50 Mg Tab.Er.24h) 50 mg PO DAILY [facility]; Protocol Last Admin: 07/10/23 07:55 Dose: 50 mg Documented By: PORFIRIO Nitroglycerin (Nitroglycerin 0.4 Mg Tab.Subl) 0.4 mg SUBLINGUAL Q5M PRN PRN Reason: for angina Omeprazole (Omeprazole 20 Mg Capsule.Dr) 20 mg PO DAILY@0630 [facility] Last Admin: 07/10/23 06:59 Dose: 20 mg Documented By: AMINAH Ondansetron HCl (Ondansetron Hcl 4 Mg/2 Ml Vial) 4 mg IVPUSH Q8H PRN PRN Reason: Nausea and Vomiting Last Admin: 07/09/23 09:31 Dose: 4 mg Documented By: TATY Sodium Chloride (0.9 % Sodium Chloride Flush 3 Ml Syringe) 3 ml IVFLUSH QSHIFT [facility] Last Admin: 07/10/23 07:53 Dose: Not Given Documented By: PORFIRIO Non-Admin Reason: No Access Tiotropium [place] (Tiotropium [place] 2.5 Mcg 1 Puff/2.5 Mcg Mist.Inhal) 2 puff INHALE RDAILY [facility] Last Admin: 07/10/23 11:26 Dose: 2 puff Documented By: [place] Tramadol HCl (Tramadol Hcl 50 Mg Tablet) 25 mg PO Q6H PRN PRN Reason: Pain, Moderate(Pain Scale 4-6) Last Admin: 07/09/23 22:26 Dose: 25 mg Documented By: LORRIE Labs 07/09/23 04:28 07/09/23 04:28 Labs: Laboratory Results - last 24 hr 07/09/23 07/09/23 07/10/23 17:10 21:42 07:51 POC Glucose 88 105 80 07/10/23 11:11 POC Glucose 115 Assessment and Plan (1) Atrial fibrillation with RVR: Status: Acute Plan 82-year-old female with pertinent history of chronic hypoxemic respiratory failure secondary to COPD, AFib on Eliquis, [id number] diabetes mellitus, history of CRISTA noncompliant with CPAP, hypothyroidism, coronary artery disease, 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 #. AFib with RVR: Persistent intermittent RVR, continue Toprol-XL 50 mg and add Cardizem 30 mg t.i.d. transitioned to Cardizem CD 120 mg if blood pressure remains stable Case discussed with Cardiology they agree with current treatment plan, continue Eliquis #. Chronic hypoxemic respiratory failure due to COPD: On home baseline oxygen. Chest x-ray unremarkable, No exacerbation ,Continue home inhalers #. Coronary artery disease: On antiplatelet agent and high-intensity statin #. Congestive heart failure with combined systolic and diastolic dysfunction: On beta-becca and diuretics. No decompensation during admission. Not on LUCIANO-inhibitor or ARB #. Otk-ybiljef-bncgbairv diabetes mellitus: Initiating Accu-Cheks with sliding scale insulin #. Hypothyroidism: TSH 4.15 continue home dose of Synthroid #. CRISTA: Not using CPAP due to claustrophobia #. Obesity class 2: Recommend low-calorie diet/exercise #. Debility due to recent hip fracture: Seen by Physical therapy they recommend short-term rehab, however patient wishes to be discharged home with services will continue close monitoring, Complaining of soreness left buttock, noted to have normal examination, with localized dry scabs, question had herpes zoster, treat with Tylenol. # mood disorder continue duloxetine DVT prophylaxis: Eliquis Full code Will require continued inpatient hospital stay for close monitoring of heart rate (as above), with medication adjustment, which is not possible in a lesser acute setting. Specialist consult pending Quality Stroke Does the patient have a stroke diagnosis?: No VTE Prior VTE?: No VTE Risk Level:: Medical - moderate - high VTE Device Contraindication: Treatment Not Indicated VTE Drug Contraindication: N/A - Med Ordered
[2023-07-10] MEDS: traMADoL HCL 50 MG TABLET 25 MG PO (16:28)
[2023-07-10] MEDS: 0.9 % Sodium Chloride Flush 3 ML SYRINGE IVFLUSH (16:43)
[2023-07-10 18:13] LABS: Glucose, Whole Blood 76 mg/dL (60-115)
[2023-07-10 21:02] LABS: Glucose, Whole Blood 87 mg/dL (60-115)
[2023-07-10] MEDS: Atorvastatin Calcium 80 MG TABLET PO (21:11)
[2023-07-10] MEDS: traMADoL HCL 50 MG TABLET PO (23:13)
[2023-07-11] VITALS (8 sets, daily range): BP systolic 107–124; BP diastolic 49–58; PULSE 72–118; RESP 16–20; TEMP 36–37; O2SAT 93–96
[2023-07-11] MEDS: 0.9 % Sodium Chloride Flush 3 ML SYRINGE IVFLUSH ×2 (00:57→08:31)
[2023-07-11] MEDS: Levothyroxine Sodium 100 MCG TABLET PO (05:59)
[2023-07-11] MEDS: Omeprazole 20 MG CAPSULE.DR PO (05:59)
[2023-07-11 07:35] LABS: Glucose, Whole Blood 86 mg/dL (60-115)
[2023-07-11] MEDS: Tiotropium Bromide 2.5 mcg 1 PUFF/2.5 MCG MIST.INHAL 2 PUFF INHALE (08:04)
[2023-07-11] MEDS: Fluticasone/Vilanterol 200/25 BLST.W.DEV 1 PUFF INHALE (08:04)
[2023-07-11] MEDS: Aspirin Enteric Coated 81 MG TABLET.DR PO (08:29)
[2023-07-11] MEDS: Metoprolol Succinate ER 50 MG TAB.ER.24H PO (08:29)
[2023-07-11] MEDS: DULoxetine HCl 30 MG CAPSULE.DR PO (08:29)
[2023-07-11] MEDS: Ezetimibe 10 MG TABLET PO (08:29)
[2023-07-11] MEDS: Apixaban 5 MG TABLET PO (08:30)
[2023-07-11] MEDS: dilTIAZem HCL CD 120 MG CAP.ER.DEG PO (08:30)
[2023-07-11] MEDS: Furosemide 40 MG TABLET PO (08:30)
[2023-07-11] MEDS: traMADoL HCL 50 MG TABLET PO (08:37)
[2023-07-11 10:58] LABS: Glucose, Whole Blood 165 mg/dL (60-115)
--- NOTE | 2023-07-11 12:27 | PM.DS ---
DS: Providers Provider Date of Service: 07/11/23 Date of admission: 07/08/23 20:20 Primary care physician: Chantal Lay MD Consults: 07/08/23 20:19 Consult to Cardiology Routine Consulting Provider: [facility] [place] [facility] Reason for consultation: afib with rvr DS: Diagnosis Discharge Diagnosis (1) Atrial fibrillation with RVR: Status: Acute DS: Summary Hospital Course Hospital Course: History of present illness: Date of Service: 07/08/23 Chief Complaint: Palpitations This is a 82-year-old female with pertinent history of chronic hypoxemic respiratory failure secondary to COPD on 2 L baseline supplemental oxygen, AFib on Eliquis, tei-clndpxi-fshyusmvv diabetes mellitus, history of CRISTA noncompliant with CPAP, hypothyroidism, coronary artery disease, congestive heart failure with combined systolic and diastolic dysfunction who presents to the emergency department for evaluation of palpitations. Patient states she has had palpitations for a while, on and off and she presents today as her palpitations got worse. Patient states that since her hip fracture surgery in January, she has not been back to baseline. She works with physical therapy at home. Denies dyspnea, orthopnea or PND. No fever, chills, chest discomfort, cough, abdominal pain, changes in urinary or bowel habits. Does not use CPAP at bedtime as she is claustrophobic. In the emergency department, patient was found to be in AFib with RVR and initiated on IV diltiazem drip. 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 who presents to the emergency department for evaluation of weakness, shortness of breath and palpitation, no chest pain, patient noted to have narrow complex regular tachycardia initially felt to be AFib with RVR patient treated with IV Cardizem drip heart rate improved subsequently patient seen by transportation security officer he felt patient likely had supraventricular tachycardia, patient was continued on Toprol-XL and and placed on by mouth Cardizem patient heart rate improved blood pressure remained stable patient is feeling significantly better no recurrent episodes of shortness of breath or palpitations, she did have some chills and cough that is now resolved she had no worsening of chronic hypoxic respiratory failure, therefore being discharged home on Cardizem CD 120 mg daily and recommend to continue all home medications, in regard to debility due to recent hip fracture patient was evaluated by Physical therapy they recommend short-term rehab however patient wishes to be discharged home with services. In regard to history of atrial fibrillation patient has been continued on metoprolol and Eliquis , patient had no chest discomfort recommend to continue statins Congestive heart failure with combined systolic and diastolic dysfunction, no acute exacerbation noted continue diuretics,Not on LUCIANO-inhibitor or ARB Tkf-sttoxlx-ghymuuqjz diabetes mellitus blood sugars remained stable continue insulin Hypothyroidism: TSH 4.15 continue home dose of Synthroid CRISTA: Not using CPAP due to claustrophobia Obesity class 2: Recommend low-calorie diet/exercise Time Attestation Discharge Coordination Time (in mins): 40 Quality: Safe Use of Opioids Does Pt have an Active Cancer Diagnosis on the Problem List?: No Quality: Stroke Does the patient have a stroke diagnosis?: No Physical Exam Vital Signs: Vital Signs: Last Vital Signs Temp 98.6 F 07/11/23 11:02 Pulse 75 07/11/23 11:02 Resp 20 07/11/23 11:02 BP 113/56 L 07/11/23 11:02 Pulse Ox 93 07/11/23 11:02 O2 Del Method Nasal Cannula 07/11/23 11:02 O2 Flow Rate 2 07/11/23 11:02 Oxygen Flow Rate 2 07/08/23 16:30 BMI result Body Mass Index 39.3 Const: Other: General awake alert x3, resting comfortably in no acute distress. Neck supple no JVD. CVS regular rate rhythm, Respiratory lungs clear to auscultation, no respiratory distress, no wheeze, no rhonchi. Gastrointestinal abdomen soft, non tender, bowel sounds audible Extremities no pitting edema./left hip normal examination, good range of motion Neuro non focal Skin dry scabs left buttock Psych appropriate affect DS: Data Data Completed and Pending Completed studies during hospitalization [Text1]: Procedures Reposition Right Upper Femur with Intramedullary Internal Fixation Device, Percutaneous Approach (02/08/23) Labs on day of discharge: Laboratory Results - last 24 hr 07/10/23 07/10/23 07/11/23 16:18 20:53 07:30 POC Glucose 76 87 86 07/11/23 10:46 POC Glucose 165 H Discharge Plan Discharge Anticipated Discharge Date/Time: 07/11/23 12:09 Patient Disposition: Home Health Service Discharge Diagnosis: Atrial fibrillation with RVR Chronic hypoxic respiratory failure Referrals: Alireza,Chantal Albrecht MD [Primary Care Provider] - 1 Week Discharge Medications: New diltiazem HCl [Cardizem CD] 120 mg Capsule,Extended Release 24hr 120 mg PO DAILY Qty: 90 0RF Protocol: Hold for SBP/HR < HOLD for SBP < : 90 HOLD for HR < : 60 Continued (DME) stair lift and ramp See Rx Instructions .Route .MEDSUPPLY Qty: 1 0RF Rx Instructions: As directed (DME) blood-glucose meter [OneTouch Ultra2 Meter] Kit See Rx Instructions .Route Qty: 1 0RF Rx Instructions: As directed (DME) blood-glucose meter [OneTouch UltraMini] Kit See Rx Instructions .Route Qty: 1 0RF Rx Instructions: As directed (DME) Wheelchair Ramp See Rx Instructions .Route .MEDSUPPLY Qty: 1 0RF Rx Instructions: As directed (DME) Transfer Bench Misc See Rx Instructions .Route Qty: 1 0RF Rx Instructions: As directed for bath tub (DME) blood pressure monitor [Blood Pressure Kit] Kit See Rx Instructions .Route Qty: 1 0RF Rx Instructions: As directed (DME) [facility] Bed diagnosis I50.32 See Rx Instructions .Route .MEDSUPPLY Qty: 1 0RF Rx Instructions: As directed, GERMAN 99 (DME) Nebulizer supplies See Rx Instructions .Route .MEDSUPPLY Qty: 3 3RF Rx Instructions: As directed (DME) Air mattress See Rx Instructions .Route .MEDSUPPLY Qty: 1 0RF Rx Instructions: As directed nitroglycerin 0.4 mg tablet, sublingual 0.4 mg sublingual Q5M PRN (Reason: for angina) 90 Days Qty: 25 0RF (DME) FOUR WHEEL SCOOTER See Rx Instructions .Route .MEDSUPPLY Qty: 1 0RF Rx Instructions: As directed ondansetron HCl 8 mg tablet 8 mg PO Q12H PRN (Reason: nausea and vomiting) Qty: 30 0RF (DME) pads for bedsores 7 7/8 X 11 3/4 pad See Rx Instructions .Route Qty: 50 11RF Rx Instructions: As directed thiamine HCl (vitamin B1) 100 mg tablet 100 mg PO DAILY Qty: 90 2RF fluticasone propion-salmeterol 500-50 mcg/dose blister with device 1 inh inhalation BID Qty: 60 11RF (DME) pressure release mattress See Rx Instructions .Route .MEDSUPPLY Qty: 1 0RF Rx Instructions: As directed ezetimibe 10 mg tablet 10 mg PO DAILY Qty: 90 3RF (DME) OneTouch Ultra Test Strip See Rx Instructions .ROUTE .COMPLEX Qty: 100 3RF Dose Instruction: DIRECTED TEST BLOOD GLUCOSE DAILY Rx Instructions: DIRECTED TEST BLOOD GLUCOSE DAILY cyanocobalamin (vitamin B-12) 1,000 mcg/mL solution 1,000 mcg IM Q4W 90 Days Qty: 4 11RF albuterol sulfate 90 mcg/actuation HFA aerosol inhaler 2 puff PO Q4H PRN (Reason: for respiratory distress) Qty: 8.5 5RF (DME) lancets Misc See Rx Instructions .Route Qty: 100 3RF Rx Instructions: As directed test blood glucose daily Eliquis 5 mg tablet 5 mg PO BID 90 Days Qty: 180 3RF ascorbic acid (vitamin C) 500 mg tablet 500 mg PO BID Qty: 180 3RF metoprolol succinate 50 mg tablet extended release 24 hr 50 mg PO DAILY Qty: 30 2RF (DME) lancets [OneTouch Delica Plus Lancet] 33 gauge misc See Rx Instructions .ROUTE .COMPLEX Qty: 100 0RF Dose Instruction: USE TO TEST DAILY Rx Instructions: USE TO TEST DAILY ferrous sulfate 325 mg (65 mg iron) Tablet 325 mg PO DAILY cholecalciferol (vitamin D3) [Vitamin D3] 25 mcg (1,000 unit) Capsule 25 mcg PO DAILY dicyclomine 10 mg Capsule 10 mg PO Q6H PRN (Reason: Abdominal Pain) aspirin 81 mg Tablet,Delayed Release (Dr/Ec) 81 mg PO DAILY omeprazole 20 mg Capsule,Delayed Release(Dr/Ec) 20 mg PO DAILY@0630 Incruse Ellipta 62.5 mcg/actuation Blister With Device 1 inh INHALATION DAILY duloxetine 30 mg Capsule, Delayed Rel Sprinkle 30 mg PO DAILY furosemide 40 mg tablet 40 mg PO DAILY atorvastatin 80 mg tablet 80 mg PO BEDTIME meclizine 12.5 mg tablet 25 mg PO TID PRN (Reason: for motion sickness) levothyroxine 100 mcg tablet 100 mcg PO DAILY@0600 Trulicity 3 mg/0.5 mL pen injector 3 mg subcut FR (DME) compress.stocking,knee,reg,lrg Misc See Rx Instructions .Route Qty: 12 0RF Rx Instructions: As directed 20-30 mm HG (DME) hospital bed See Rx Instructions .Route .MEDSUPPLY Qty: 1 0RF Rx Instructions: As directed tramadol 50 mg tablet 50 mg PO Q6H PRN (Reason: Pain) (DME) UNDERPADS Disposable BED See Rx Instructions .Route .MEDSUPPLY Qty: 3 11RF Rx Instructions: As directed Discharge Orders: Discharge Order (Routine); Ordered 07/11/23 Ordered By: Kylah Hartman Diet: Diabetic diet Activity on Discharge: As tolerated Stand Alone Forms: Patient Portal Discharge page Print Language: Maori Care Plan Goals: Noted to have rapid heart rate Take Cardizem CD 120 mg 1 tablet daily Continue all home medication Resume physical therapy as before Patient declined short-term rehab Health Concerns: Diabetes mellitus Plan of Treatment: Outpatient follow-up with primary care physician and Cardiology call for appointment in 2-3 weeks Assessment: As above
[2023-07-11] MEDS: Insulin Lispro 100 UNIT/ML 3 ML VIAL SUBCUT (13:05)
--- NOTE | 2023-07-11 13:10 | MHC.CM.PN ---
pt's home care services are from [facility], , and [facility]. pt has been medically cleared for DC, she will go home today via BLS and resume her home care services. [facility], [facility], family and [facility] and updates were sent to Liv via [employer].
[2023-07-11 16:16] LABS: Glucose, Whole Blood 95 mg/dL (60-115)
== END 2023-07-11 17:15 | disposition home health service (06) | DRG 309 ==
LOC: HO.ED 20:35 → HO.EDOVER 21:01 → HO.IMC 07-10 00:30
PROVIDERS: Admitting Provider Student in an Organized Health Care Education/Training Program; Emergency Provider Emergency Medicine; PCP Internal Medicine; Visit Provider Hospitalist
DX: I47.10 Supraventricular tachycardia, unspecified (principal); I50.42 Chronic combined systolic (congestive) and diastolic (congestive) heart failure; J96.11 Chronic respiratory failure with hypoxia; I25.10 Atherosclerotic heart disease of native coronary artery without angina pectoris; E11.9 Type 2 diabetes mellitus without complications; E03.9 Hypothyroidism, unspecified; F39 Unspecified mood [affective] disorder; J44.9 Chronic obstructive pulmonary disease, unspecified; G47.33 Obstructive sleep apnea (adult) (pediatric); Z99.81 Dependence on supplemental oxygen; I48.19 Other persistent atrial fibrillation; E66.8 Other obesity; Z68.39 Body mass index [BMI] 39.0-39.9, adult; Z71.3 Dietary counseling and surveillance; Z91.199 Patient's noncompliance with other medical treatment and regimen due to unspecified reason; Z95.1 Presence of aortocoronary bypass graft; Z79.01 Long term (current) use of anticoagulants; Z79.82 Long term (current) use of aspirin; Z79.85 Long-term (current) use of injectable non-insulin antidiabetic drugs; Z79.51 Long term (current) use of inhaled steroids; Z79.899 Other long term (current) drug therapy
CPT/HCPCS: 36415; 71045; 80048; 80076; 82947; 83880; 84443; 84484; 85025; 85027; 93005; 97161; 97530; 99285; J2405

== ENCOUNTER → 2023-07-08 16:35 | Outpatient (BNV) | payer OTHER, SELFPAY | PROVIDERS: Admitting Provider Student in an Organized Health Care Education/Training Program; Emergency Provider Emergency Medicine; Visit Provider Internal Medicine Cardiovascular Disease | DX: R00.0 Tachycardia, unspecified (principal) | CPT/HCPCS: 93010 ==

== ENCOUNTER → 2023-07-08 17:12 | Outpatient (BNV) | payer OTHER, SELFPAY | PROVIDERS: Emergency Provider Emergency Medicine; Visit Provider Student in an Organized Health Care Education/Training Program | DX: I48.91 Unspecified atrial fibrillation (principal) | CPT/HCPCS: 99222; 99233; 99239 ==

== ENCOUNTER → 2023-07-08 20:20 | Outpatient (BNV) | payer OTHER, SELFPAY | PROVIDERS: Admitting Provider Student in an Organized Health Care Education/Training Program; Emergency Provider Emergency Medicine; Visit Provider Internal Medicine Cardiovascular Disease | DX: I47.10 Supraventricular tachycardia, unspecified (principal) | CPT/HCPCS: 99222 ==

== ENCOUNTER 2023-07-13 21:02 | Inpatient (IN) | payer OTHER, SELFPAY ==
--- NOTE | 2023-07-13 | ECG_ITS ---
Test Reason : DYSPNEA Blood Pressure : / mmHG Vent. Rate : 102 BPM Atrial Rate : 102 BPM P-R Int : 204 ms QRS Dur : 084 ms QT Int : 342 ms P-R-T Axes : 046 066 128 degrees QTc Int : 445 ms Sinus tachycardia Nonspecific T wave abnormality Abnormal ECG When compared with ECG of 08-JUL-2023 17:00, Premature ventricular complexes are no longer Present Criteria for Septal infarct are no longer Present Nonspecific T wave abnormality now evident in Anterior leads Referred By: Generic ED Physician Electronically Signed By:Adelfo Anthony
--- NOTE | ~2023-07-13 | XR_ITS ---
EXAMINATION: XR HIP, RIGHT CLINICAL INFORMATION: Right hip pain COMPARISON: Right femur April 18, 2023 TECHNIQUE: Two views of the right hip. FINDINGS: Status post internal fixation right hip fracture with long-standing intramedullary higinio and compression screw and femoral head and neck. No change in alignment since study April 18, 2023. No hardware failure. Fracture line is not visualized, healed intratrochanteric fracture. There is osteopenia. XR/XR hip RT w PEL1V IMPRESSION: Status post internal fixation right hip fracture. Fracture is healed.
--- NOTE | ~2023-07-13 | XR_ITS ---
EXAMINATION: XR CHEST CLINICAL INFORMATION: Shortness of breath COMPARISON: 07/08/2023 TECHNIQUE: Frontal view of the chest was obtained. FINDINGS: Lung volumes are symmetric. No focal consolidation is seen. Mild subsegmental atelectasis in the mid to lower lungs. No evidence of pneumothorax, significant pleural effusion, or overt pulmonary edema. Cardiac silhouette remains enlarged. Calcification is present at the aortic arch. Left shoulder arthroplasty hardware is redemonstrated. XR/XR chest 1V IMPRESSION: Mild subsegmental atelectasis without additional acute findings. Cardiac silhouette remains enlarged.
--- NOTE | ~2023-07-13 | XR_ITS ---
EXAMINATION: XR CHEST CLINICAL INFORMATION: Abnormal breath sounds COMPARISON: 07/13/2023 TECHNIQUE: Frontal view of the chest was obtained. FINDINGS: Lung volumes are symmetric. No focal consolidation is seen. No evidence of pneumothorax, significant pleural effusion, or overt pulmonary edema. Cardiac silhouette appears prominent though may be accentuated due to patient rotation. Calcification is present at the aortic arch. Partially visualized left shoulder arthroplasty hardware. XR/XR chest 1V IMPRESSION: No acute pulmonary findings.
[2023-07-13 21:05] VITALS: BP 139/68; PULSE 114
[2023-07-13 21:07] VITALS: BP 130/49; PULSE 107; RESP 22; TEMP 38.8; O2SAT 94; BMI 39.3
[2023-07-13 21:48] LABS: MANUAL DIFF FLAG NO
[2023-07-13 21:50] LABS: Basophils Percent Auto 0.3 % (0-2); Eosinophils Absolute Auto 0.1 X10*3/uL (0.0-0.4); Eosinophils Percent Auto 0.6 % (0-4); Hematocrit 35.1 % (37.0-47.0); Hemoglobin 11.2 g/dl (12.0-16.0); Imm Gran Abs Auto 0.04 X10*3/uL (0.00-0.03); Imm Gran Pct Auto 0.5 % (0.0-0.4); Lymphocytes Absolute Auto 1.1 X10*3/uL (1.2-4.9); Lymphocytes Percent Auto 13.5 % (20-40); Mean Corpuscular HGB Conc 31.9 g/dl (31.0-35.0); Mean Corpuscular Hemoglobin 27.2 pg (27.0-33.0); Mean Corpuscular Volume 85.2 fL (80.0-98.0); Mean Platelet Volume 8.8 fL (9.4-12.3); Monocytes Percent Auto 12.2 % (2-11); Neutrophils Absolute Auto 5.8 x10*3/uL (2.0-8.3); Neutrophils Percent Auto 72.9 % (45-73); Platelet Count 293 X10*3/uL (160-400); Red Blood Count 4.12 X10*6/uL (4.20-5.50); Red Cell Distribution Width 16.1 % (11.0-16.0); White Blood Count 7.9 X10*3/uL (4.8-10.8)
[2023-07-13 22:00] LABS: Troponin-I High Sensitivity 9.5 ng/L (<3.5-17.0)
--- NOTE | 2023-07-13 22:03 | ED.GENADULT ---
HPI - General Adult General Chief complaint: Dyspnea Stated complaint: sob, covid + 3 days ago Time Seen by Provider: 07/13/23 21:22 Source: patient Mode of arrival: EMS Limitations: no limitations History of Present Illness HPI narrative: Patient 83 years old with history of chronic hypoxemic respiratory failure secondary to COPD on home oxygen 2 L, AFib on Eliquis, diabetes, CRISTA noncompliant with CPAP congestive heart failure comes here for increased shortness of breath for last 2 days patient was just discharged here from here on 07/11/2023 for AFib with rapid ventricular rate since patient's discharge patient was not feeling good checked COVID 3 times at home which was positive was saturating 92% on 2 L on arrival also had temperature of 101.8 degrees coughing a lot with mucopurulent phlegm body aches tiredness with poor oral intake Related Data Home Medications ?Medication ?Instructions ?Recorded ?Confirmed cholecalciferol (vitamin D3) 25 25 mcg PO DAILY 12/01/19 07/08/23 mcg (1,000 unit) capsule (Vitamin D3) dicyclomine 10 mg capsule 10 mg PO Q6H PRN Abdominal Pain 12/01/19 07/08/23 ferrous sulfate 325 mg (65 mg 325 mg PO DAILY 12/01/19 07/08/23 iron) tablet tramadol 50 mg tablet 50 mg PO Q6H PRN Pain 06/21/23 07/08/23 aspirin 81 mg tablet,delayed 81 mg PO DAILY 07/08/23 07/08/23 release atorvastatin 80 mg tablet 80 mg PO BEDTIME 07/08/23 07/08/23 dulaglutide 3 mg/0.5 mL 3 mg subcut FR 07/08/23 07/08/23 subcutaneous pen injector (Trulicity) duloxetine 30 mg capsule,delayed 30 mg PO DAILY 07/08/23 07/08/23 release sprinkle furosemide 40 mg tablet 40 mg PO DAILY 07/08/23 07/08/23 levothyroxine 100 mcg tablet 100 mcg PO DAILY@0600 07/08/23 07/08/23 meclizine 12.5 mg tablet 25 mg PO TID PRN for motion 07/08/23 07/08/23 sickness omeprazole 20 mg capsule,delayed 20 mg PO DAILY@0607/08/23 07/08/23 release umeclidinium 62.5 mcg/actuation 1 inh inhalation DAILY 07/08/23 07/08/23 blister powder for inhalation (Incruse Ellipta) Previous Rx's ?Medication ?Instructions ?Recorded stair lift and ramp #1 ea 08/31/20 blood-glucose meter (OneTouch #1 ea 09/14/20 Ultra2 Meter kit) blood-glucose meter (OneTouch #1 ea 09/16/20 UltraMini kit) Wheelchair Ramp #1 ea 10/06/20 Transfer Bench #1 ea 11/01/20 blood pressure monitor (Blood #1 ea 11/03/20 Pressure Kit) hospital bed #1 ea 01/23/21 Nebulizer supplies #3 ea 03/22/21 Semi Electric Hospital Bed #1 ea 03/22/21 diagnosis I50.32 Air mattress #1 ea 11/27/21 nitroglycerin 0.4 mg sublingual 0.4 mg sublingual Q5M PRN for 02/22/22 tablet angina 90 days #25 tabs FOUR WHEEL SCOOTER #1 ea 06/08/22 ondansetron HCl 8 mg tablet 8 mg PO Q12H PRN nausea and 06/22/22 vomiting #30 tabs pads for bedsores 7 7/8 X 11 3/4 #50 ea 07/10/22 thiamine HCl (vitamin B1) 100 mg 100 mg PO DAILY #90 tabs 09/17/22 tablet fluticasone 500 mcg-salmeterol 50 1 inh inhalation BID #60 ea 10/11/22 mcg/dose blistr powdr for inhalation pressure release mattress #1 ea 11/13/22 ezetimibe 10 mg tablet 10 mg PO DAILY #90 tabs 01/15/23 blood sugar diagnostic (OneTouch #100 strips 01/30/23 Ultra Test strips) cyanocobalamin (vitamin B-12) 1,000 mcg IM Q4W 90 days #4 mL 01/30/23 1,000 mcg/mL injection solution albuterol sulfate 90 mcg/actuation 2 puff PO Q4H PRN for respiratory 02/05/23 aerosol inhaler distress #8.5 ea lancets #100 ea 02/09/23 apixaban 5 mg tablet (Eliquis) 5 mg PO BID 90 days #180 tabs 05/20/23 ascorbic acid (vitamin C) 500 mg 500 mg PO BID #180 tabs 05/20/23 tablet UNDERPADS Disposable BED #3 ea 06/21/23 metoprolol succinate 50 mg 50 mg PO DAILY #30 tabs 06/22/23 tablet,extended release 24 hr compress.stocking,knee,reg,lrg #12 ea 07/01/23 lancets 33 gauge (OneTouch Delica #100 ea 07/01/23 Plus Lancet) diltiazem HCl 120 mg 120 mg PO DAILY #90 caps 07/11/23 capsule,extended release 24 hr (Cardizem CD) Allergies Allergy/AdvReac Type Severity Reaction Status Date / Time morphine [MORPHINE] Allergy Unknown RASH Verified 07/13/23 21:14 pregabalin [From LYRICA] Allergy Unknown NAUSEA, Verified 07/13/23 21:14 felt high on drugs Review of Systems Review of Systems: Yes all other systems are reviewed and are negative [facility] Past Medical History Medical History COPD (chronic obstructive pulmonary disease) Strong odor of stools Dysuria Pulmonary nodules Diarrhea Weakness Bradycardia Ingrowing nail Impacted cerumen of right ear Urinary incontinence Impacted cerumen of right ear Pulmonary nodule Chronic anticoagulation First degree atrioventricular block Atrial fibrillation Chronic pain syndrome 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 Low back pain Respiratory failure with hypoxia and hypercapnia Lower extremity weakness Nasal congestion Otitis externa Coronary artery disease Restrictive lung disease Diarrhea History of spinal stenosis Fibromyalgia Obesity (BMI 30-39.9) Carpal tunnel syndrome Abdominal aortic aneurysm Hypothyroid Obstructive sleep apnea Congestive heart failure Pernicious anemia Paroxysmal atrial fibrillation DVT (deep venous thrombosis) Diverticulitis GERD (gastroesophageal reflux disease) HTN (hypertension) Clostridium difficile colitis CAD (coronary artery disease) Hypercholesterolemia Surgical History S/P BREANN-BSO (total abdominal hysterectomy and bilateral salpingo-oophorectomy) History of arthroplasty of left shoulder Hx of cholecystectomy H/O angioplasty Hx of appendectomy H/O cardiac catheterization Family History Family History Father Hypertension CVD (cardiovascular disease) Mother Colon cancer Sister Leukemia Sister Colon cancer Son Lung cancer Colon polyps Social History Social History Household Members: None Housing: Apartment Do you presently have visiting nurse or other home services: Yes Alcohol intake: never Patient Tobacco Use Status: Former Tobacco user Tobacco use type: Cigarette Years Smoked: stopped 2009 e-Cigarette/Vaping Use: Never Used Second Hand Smoke Exposure: No Advance Directives: Yes Advance Directives on File: Yes Advance Directives Date on File: 10/10/21 Do you have a plan to hurt others: No Plan service: No Current occupational status: retired Current occupational exposures/hazards: No Cognitive needs: No Hearing needs: No Vision needs: Yes Physical Exam ED Vital Signs: Vital Signs - 24 hr 07/13/23 21:07 07/13/23 22:23 Temperature 101.8 F H Pulse Rate 107 H 101 H Respiratory Rate 22 H 18 Blood Pressure 130/49 L Pulse Oximetry 94 Oxygen Delivery Method Room Air BMI result Body Mass Index 39.3 Appearance: Alert. Oriented X3. In moderate respiratory distress Eyes: No pallor ENT: Pharynx normal. Oral Mucosa moist Neck: Normal inspection. Neck supple. CVS: Tachycardic Pulses normal. Respiratory: Moterate respiratory distress. Equal air entry bilateral, bilateral crackles especially at bases posteriorly Abdomen: Soft and nontender. Bowel sounds are present, no mass palpable, no CVA tenderness Skin: Skin warm and dry. Normal skin color. Normal skin turgor. Extremities: No lower extremity edema. No calf tenderness Neuro: Oriented X 3. No motor deficit. Medications Administered Discontinued Medications Generic Name Dose Route Start Last Admin Trade Name Francescoq PRN Reason Stop Dose Admin Acetaminophen 650 mg 07/13/23 22:52 07/13/23 22:55 Acetaminophen 325 Mg Tablet PO 07/13/23 22:53 650 mg ONCE ONE Administration Apixaban 5 mg 07/13/23 22:36 07/13/23 22:55 Apixaban 5 Mg Tablet PO 07/13/23 22:37 5 mg ONCE ONE Administration Albuterol Sulfate 5 mg/ 0 mg 07/13/23 22:05 07/13/23 22:15 Albuterol/Ipratropium 3 ml INHALE 07/13/23 22:06 7.5 each ONCE ONE Administration Dexamethasone Sodium Phosphate 10 mg 07/13/23 22:25 07/13/23 22:37 Dexamethasone Sod Phosphate 10 Mg/Ml Vial IVPUSH 07/13/23 22:26 10 mg ONCE ONE Administration Sodium Chloride 1,000 mls @ 999 mls/hr 07/13/23 22:19 07/13/23 22:35 Ns IV 07/13/23 23:19 999 mls/hr .Q1H1M ONE Administration Medical Decision Making Medical Decision Making [facility] Narrative: Patient 83 years old with multiple comorbid condition with hypoxia secondary to COVID infection and COPD and acute on chronic CHF will admit patient for supportive treatment started on steroids. Differential Diagnosis Differential Diagnoses: The differential diagnosis associated with the presentation includes Pneumonia/COVID infection/CHF acute on chronic hypoxic respiratory failure due to COPD/CHF Admission/Observation Consideration of admission/observation: Escalation of care including admission/observation considered Consult Healthcare Provider Management of the patient was discussed with: Hospitalist Lab Data [facility] Lab Attestation statement: I reviewed the patient's lab results. 07/13/23 21:41 07/13/23 21:41 Labs: Lab Results 07/13/23 07/13/23 07/13/23 Range/Units 21:32 21:41 22:32 WBC 7.9 (4.8-10.8) X10*3/uL RBC 4.12 L (4.20-5.50) X10*6/uL Hgb 11.2 L (12.0-16.0) g/dl Hct 35.1 L (37.0-47.0) % MCV 85.2 (80.0-98.0) fL MCH 27.2 (27.0-33.0) pg MCHC 31.9 (31.0-35.0) g/dl RDW 16.1 H (11.0-16.0) % Plt Count 293 (160-400) X10*3/uL MPV 8.8 L (9.4-12.3) fL Immature Gran % (Auto) 0.5 H (0.0-0.4) % Neut % (Auto) 72.9 (45-73) % Lymph % (Auto) 13.5 L (20-40) % Bates % (Auto) 12.2 H (2-11) % Eos % (Auto) 0.6 (0-4) % Baso % (Auto) 0.3 (0-2) % Lymph # (Auto) 1.1 L (1.2-4.9) X10*3/uL Bates # (Auto) 1.0 (0.1-1.2) X10*3/uL Eos # (Auto) 0.1 (0.0-0.4) X10*3/uL Baso # (Auto) 0.0 (0.0-0.2) X10*3/uL Abs Immat Gran (auto) 0.04 H (0.00-0.03) X10*3/uL Absolute Neuts (auto) 5.8 (2.0-8.3) x10*3/uL Absolute Nucleated RBC 0.000 (0.0-0.012) X10*3/uL Nucleated RBC % (auto) 0.0 (0.0-0.2) /100WBC VBG pH 7.49 H (7.32-7.43) VBG pCO2 43 mmHg VBG pO2 60 mmHg VBG HCO3 33 H (22-26) mmol/L VBG O2 Saturation 90.0 % VBG Base Excess 9.6 mmol/L Sodium 143 (135-145) mmol/L Potassium 3.6 D (3.3-5.1) mmol/L Chloride 103 (96-108) mmol/L Carbon Dioxide 29 (22-29) mmol/L Anion Gap 15 (12-20) BUN 12 (9-16) mg/dL Creatinine 0.82 (0.5-1.4) mg/dL Estim Creat Clear Calc 54.5 Estimated GFR > 60 Random Glucose 104 (60-115) mg/dL Calcium 9.3 (8.4-10.2) mg/dL Total Bilirubin 0.3 (0.0-1.0) mg/dL AST 24 (5-31) U/L ALT 14 (0-31) U/L Alkaline Phosphatase 155 H (39-117) U/L Troponin I High Sens 9.5 D (<3.5-17.0) ng/L B-Natriuretic Peptide 113 H (<100) pg/mL Total Protein 6.9 (6.5-8.0) g/dL Albumin 3.4 L (3.5-5.0) g/dL Influenza Type A (PCR) NEGATIVE (Negative) Influenza Type B (PCR) NEGATIVE (Negative) RSV RNA Qual (PCR) NEGATIVE (Negative) SARS-CoV-2 RNA (RT-PCR) POSITIVE A (Negative) ABG Data Attestation ABG: I personally reviewed and interpreted this ABG as follows: Interpretation: Respiratory acidosis with metabolic alkalosis Independent Interpretation I performed an independent interpretation of an: EKG and Plain X-Ray Interpretation: Sinus tachycardia heart rate 102 beats per minute normal interval normal axis no acute ST T wave changes no acute ischemia External Record Review External record reviewed: Inpatient record and Outside ED record Discharge Plan Discharge Clinical Impression: COVID-19, Acute and chronic respiratory failure with hypoxia Patient Disposition: Admitted As Inpatient Print Language: Mohawk
[2023-07-13 22:04] LABS: Alanine Aminotransferase 14 U/L (0-31); Albumin Level 3.4 g/dL (3.5-5.0); Alkaline Phosphatase 155 U/L (39-117); Anion Gap 15 (12-20); Aspartate Amino Transferase 24 U/L (5-31); Bilirubin Total 0.3 mg/dL (0.0-1.0); Blood Urea Nitrogen 12 mg/dL (9-16); Calcium 9.3 mg/dL (8.4-10.2); Carbon Dioxide 29 mmol/L (22-29); Chloride 103 mmol/L (96-108); Creatinine Clr Calc Pharmacy 54.5; Estimated Glomerular Filt Rate > 60; Glucose Random 104 mg/dL (60-115); Potassium 3.6 mmol/L (3.3-5.1); Sodium 143 mmol/L (135-145); Total Protein 6.9 g/dL (6.5-8.0)
[2023-07-13 22:10] LABS: B Type Natriuretic Peptide 113 pg/mL (<100)
[2023-07-13] MEDS: Albuterol Sulfate 5 MG, Albuterol/Iprat 2.5/0.5MG 3 ML 3 ML INHALE (22:15)
[2023-07-13 22:23] VITALS: PULSE 101; RESP 18; O2SAT 96
[2023-07-13 22:23] LABS: Influenza A PCR NEGATIVE (Negative); Influenza B PCR NEGATIVE (Negative); Resp Syncy Virus RNA Qual PCR NEGATIVE (Negative); SARS COV2 PCR INHOUSE POSITIVE (Negative)
--- NOTE | 2023-07-13 22:29 | P.HPHOSP_ITS ---
History of Present Illness Date of Service: 07/13/23 Chief Complaint: Dyspnea This is a 82-year-old female with pertinent history of chronic hypoxemic respiratory failure secondary to COPD, AFib on Eliquis, bxa-uporthb-nykenhvsd diabetes mellitus, history of CRISTA noncompliant with CPAP, hypothyroidism, coronary artery disease, 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 Patient states her symptoms started 1 day prior to presentation. She has been having dyspnea which is constant, without any relieving factors. Patient took home COVID test which was positive. No sick contacts. Also has associated wheezing and nonproductive cough. Denies fever, chills, nausea, vomiting, chest pain, abdominal pain, changes in urinary bowel habits. In the emergency department, patient with wheezing despite multiple DuoNeb treatments. Tested positive for COVID-19. Review of Systems 2 Constitutional: Constitutional: Reports lethargy and Reports poor appetite Cardiovascular: Cardiovascular: Reports no additional cardiovascular complaints and Reports dyspnea on exertion Respiratory: Respiratory: Reports cough, Reports dyspnea on exertion and Reports wheezing Gastrointestinal: Gastrointestinal: Reports no additional gastrointestinal complaints Genitourinary: Genitourinary: Reports no additional female genitourinary complaints Allergic/Immunologic: Allergic/Immunologic: Reports wheezing [facility] Medical History COPD (chronic obstructive pulmonary disease) Strong odor of stools Dysuria Pulmonary nodules Diarrhea Weakness Bradycardia Ingrowing nail Impacted cerumen of right ear Urinary incontinence Impacted cerumen of right ear Pulmonary nodule Chronic anticoagulation First degree atrioventricular block Atrial fibrillation Chronic pain syndrome 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 Low back pain Respiratory failure with hypoxia and hypercapnia Lower extremity weakness Nasal congestion Otitis externa Coronary artery disease Restrictive lung disease Diarrhea History of spinal stenosis Fibromyalgia Obesity (BMI 30-39.9) Carpal tunnel syndrome Abdominal aortic aneurysm Hypothyroid Obstructive sleep apnea Congestive heart failure Pernicious anemia Paroxysmal atrial fibrillation DVT (deep venous thrombosis) Diverticulitis GERD (gastroesophageal reflux disease) HTN (hypertension) Clostridium difficile colitis CAD (coronary artery disease) Hypercholesterolemia Family History Father Hypertension CVD (cardiovascular disease) Mother Colon cancer Sister Leukemia Sister Colon cancer Son Lung cancer Colon polyps Surgical History S/P BREANN-BSO (total abdominal hysterectomy and bilateral salpingo-oophorectomy) History of arthroplasty of left shoulder Hx of cholecystectomy H/O angioplasty Hx of appendectomy H/O cardiac catheterization Social History Household Members: None Housing: Apartment Do you presently have visiting nurse or other home services: Yes Alcohol intake: never Patient Tobacco Use Status: Former Tobacco user Tobacco use type: Cigarette Years Smoked: stopped 2009 e-Cigarette/Vaping Use: Never Used Second Hand Smoke Exposure: No Advance Directives: Yes Advance Directives on File: Yes Advance Directives Date on File: 10/10/21 Do you have a plan to hurt others: No Plan service: No Current occupational status: retired Current occupational exposures/hazards: No Cognitive needs: No Hearing needs: No Vision needs: Yes Meds Allergies Allergy/AdvReac Type Severity Reaction Status Date / Time morphine [MORPHINE] Allergy Unknown RASH Verified 07/13/23 21:14 pregabalin [From LYRICA] Allergy Unknown NAUSEA, Verified 07/13/23 21:14 felt high on drugs Active Medications: Current Medications Albuterol/Ipratropium (Albuterol/Iprat 2.5/0.5mg 3 Ml Ampul.Neb) 3 ml INHALE RQ4H WHILE AWAKE DANIEL Albuterol/Ipratropium (Albuterol/Iprat 2.5/0.5mg 3 Ml Ampul.Neb) 3 ml INHALE Q4H PRN PRN Reason: Wheezing Sodium Chloride (Ns) 1,000 mls @ 999 mls/hr IV .Q1H1M ONE Stop: 07/13/23 23:19 Home Medications ?Medication ?Instructions ?Recorded ?Confirmed ?Last Taken ?Type cholecalciferol (vitamin D3) 25 25 mcg PO DAILY 12/01/19 07/08/23 02/08/23 History mcg (1,000 unit) capsule (Vitamin D3) dicyclomine 10 mg capsule 10 mg PO Q6H PRN Abdominal Pain 12/01/19 07/08/23 Unknown History ferrous sulfate 325 mg (65 mg 325 mg PO DAILY 12/01/19 07/08/23 02/08/23 History iron) tablet tramadol 50 mg tablet 50 mg PO Q6H PRN Pain 06/21/23 07/08/23 Unknown History aspirin 81 mg tablet,delayed 81 mg PO DAILY 07/08/23 07/08/23 Unknown History release atorvastatin 80 mg tablet 80 mg PO BEDTIME 07/08/23 07/08/23 Unknown History dulaglutide 3 mg/0.5 mL 3 mg subcut FR 07/08/23 07/08/23 Unknown History subcutaneous pen injector (Trulicity) duloxetine 30 mg capsule,delayed 30 mg PO DAILY 07/08/23 07/08/23 Unknown History release sprinkle furosemide 40 mg tablet 40 mg PO DAILY 07/08/23 07/08/23 Unknown History levothyroxine 100 mcg tablet 100 mcg PO DAILY@0600 07/08/23 07/08/23 Unknown History meclizine 12.5 mg tablet 25 mg PO TID PRN for motion 07/08/23 07/08/23 Unknown History sickness omeprazole 20 mg capsule,delayed 20 mg PO DAILY@0630 07/08/23 07/08/23 Unknown History release umeclidinium 62.5 mcg/actuation 1 inh inhalation DAILY 07/08/23 07/08/23 Unknown History blister powder for inhalation (Incruse Ellipta) Physical Exam 2 Vital Signs and Narrative: Vital Signs: Last Vital Signs Temp 101.8 F H 07/13/23 21:07 Pulse 101 H 07/13/23 22:23 Resp 18 07/13/23 22:23 BP 130/49 L 07/13/23 21:07 Pulse Ox 94 07/13/23 21:07 O2 Del Method Room Air 07/13/23 21:07 BMI result Body Mass Index 39.3 Elderly female lying in bed in mild distress on supplemental oxygen Neck supple, no JVD Irregularly irregular, S1-S2 heard Bilateral wheezing with tachypnea Abdomen soft nontender, no guarding, no rigidity Patient is awake, alert and oriented to self, place, time and person ; no focal motor deficit Psych: Normal mood No pedal edema Results Labs 07/13/23 21:41 07/13/23 21:41 Labs: Laboratory Results - last 24 hr 07/13/23 07/13/23 21:32 21:41 MCV 85.2 MCH 27.2 MCHC 31.9 RDW 16.1 H Plt Count 293 MPV 8.8 L Immature Gran % (Auto) 0.5 H Neut % (Auto) 72.9 Lymph % (Auto) 13.5 L [place] % (Auto) 12.2 H Eos % (Auto) 0.6 Baso % (Auto) 0.3 Lymph # (Auto) 1.1 L [place] # (Auto) 1.0 Eos # (Auto) 0.1 Baso # (Auto) 0.0 Abs Immat Gran (auto) 0.04 H Absolute Neuts (auto) 5.8 Absolute Nucleated RBC 0.000 Nucleated RBC % (auto) 0.0 Anion Gap 15 Estim Creat Clear Calc 54.5 Estimated GFR > 60 Random Glucose 104 Calcium 9.3 Total Bilirubin 0.3 AST 24 ALT 14 Alkaline Phosphatase 155 H Troponin I High Sens 9.5 D B-Natriuretic Peptide 113 H Total Protein 6.9 Albumin 3.4 L Influenza Type A (PCR) NEGATIVE Influenza Type B (PCR) NEGATIVE RSV RNA Qual (PCR) NEGATIVE SARS-CoV-2 RNA (RT-PCR) POSITIVE A Assessment and Plan (1) COVID-19: Status: Acute (2) COPD exacerbation: Status: Acute Plan This is a 82-year-old female with pertinent history of chronic hypoxemic respiratory failure secondary to COPD, AFib on Eliquis, cnj-oruncoq-ijsnvfike diabetes mellitus, history of CRISTA noncompliant with CPAP, hypothyroidism, coronary artery disease, 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 #. Acute respiratory distress on chronic hypoxemic respiratory failure due to COVID-19 infection leading to acute exacerbation of COPD: Will admit patient with supplemental oxygen. Home 2 L at baseline. Initiating scheduled and p.r.n. DuoNebs. IV systemic steroids. Continue home inhalers #. Atrial fibrillation: On Eliquis. Rate controlled in the ER. On Cardizem and beta-becca #. Coronary artery disease: On antiplatelet agent and high-intensity statin #. Congestive heart failure with combined systolic and diastolic dysfunction: On beta-becca and diuretics. No decompensation during admission. Not on LUCIANO- inhibitor or ARB #. Dug-fqbnqkr-lvipyucpy diabetes mellitus: Initiating Accu-Cheks with sliding scale insulin #. Hypothyroidism: On Synthroid #. CRISTA: Refused CPAP at bedtime #. Obesity: Counseled regarding diet and exercise Med rec pending DVT prophylaxis: Zhao Full code Quality Stroke Does the patient have a stroke diagnosis?: No VTE Prior VTE?: No VTE Risk Level:: Medical - moderate - high VTE Device Contraindication: Treatment Not Indicated VTE Drug Contraindication: N/A - Med Ordered
[2023-07-13] MEDS: 0.9 % Sodium Chloride 1,000 ML 999 ML IV (22:35)
[2023-07-13] MEDS: dexAMETHasone sod phosphate 10 MG/ML VIAL IVPUSH (22:37)
[2023-07-13 22:41] LABS: VBG Base Excess 9.6 mmol/L; VBG HCO3 33 mmol/L (22-26); VBG pCO2 43 mmHg; VBG pH 7.49 (7.32-7.43); VBG pO2 60 mmHg
[2023-07-13 22:47] LABS: Venous Blood Gas Refer to POC result
[2023-07-13] MEDS: Acetaminophen 325 MG TABLET 650 MG PO (22:55)
[2023-07-13] MEDS: Apixaban 5 MG TABLET PO (22:55)
[2023-07-14] VITALS (8 sets, daily range): BP systolic 123–153; BP diastolic 59–87; PULSE 94–146; RESP 18–21; TEMP 36.3–36.6; O2SAT 92–98
[2023-07-14 01:11] LABS: Lactic Acid 1.2 mmol/L (0.5-2.0)
[2023-07-14] MEDS: Metoprolol Tartrate 5 MG/5 ML VIAL IVPUSH (02:08)
--- NOTE | 2023-07-14 02:09 | PC.NURSE ---
iv metorpolol given as ordered for pt HR of 140s, afib on monitor. MD Santa aware. pt sleeping comfortably on stretcher in no apparent respiratory distress, respirations even and unlabored. wearing 2L O2 via NC at baseline. plan of care ongoing
[2023-07-14 03:11] LABS: Appearance Urine Clear; Color Urine Yellow; Glucose Urine UA Negative (Negative); Leukocyte Esterase Urine Large (3+) (Negative); Nitrite Urine Positive (Negative); UMIC TRIGGER UACC YES; Urine Blood Negative (Negative); Urine Ketones Negative (Negative); Urine Protein Trace mg/dL (Neg-Trace)
[2023-07-14 03:27] LABS: Bacteria Urine 4+ (None Seen); Hyaline Casts Urine 0-2 /LPF (0-2); RBC Urine 0-2 /HPF (0-2); Squamous Epithelial Cell Urine 0-2 /HPF (0-2); UACC Culture Trigger YES; WBC Urine 21-50 /HPF (0-5)
--- NOTE | 2023-07-14 06:05 | MHC.EDTECH ---
Pt underpads changed, new purewick placed. Pt repositioned, vital signs taken, call renteria within reach.
--- NOTE | 2023-07-14 07:30 | P.PNIM_ITS ---
Subjective Subjective Date of Service: 07/14/23 Review of Systems Follow up Covid 19 doing better but still with cough Physical Exam 2 Vital Signs: Vital Signs: Last Vital Signs Temp 97.6 F 07/14/23 06:04 Pulse 96 07/14/23 06:04 Resp 20 07/14/23 06:04 BP 123/60 07/14/23 06:04 Pulse Ox 94 07/14/23 06:04 O2 Del Method Nasal Cannula 07/14/23 06:04 O2 Flow Rate 2 07/14/23 06:04 BMI result Body Mass Index 39.3 Appearing in no acute distress head is normocephalic atraumatic eyes pupils are PERRLA sclera is anicteric mouth throat mucous membranes are intact and moist neck is supple no lymphadenopathy, no JVD noted lung sounds are clear to auscultation heart regular rate rhythm, clear S1, S2 positive bowel sounds, abdomen is soft, nontender neuro patient is alert x3, no focal deficits Objective Data Active Medications Acetaminophen (Acetaminophen 325 Mg Tablet) 650 mg PO Q6H PRN PRN Reason: Fever >100.4 Albuterol/Ipratropium (Albuterol/Iprat 2.5/0.5mg 3 Ml Ampul.Neb) 3 ml INHALE RQ4H WHILE AWAKE [facility] Last Admin: 07/14/23 07:12 Dose: Not Given Documented By: PAVEL Non-Admin Reason: Patient Refused Albuterol/Ipratropium (Albuterol/Iprat 2.5/0.5mg 3 Ml Ampul.Neb) 3 ml INHALE Q4H PRN PRN Reason: Wheezing Dexamethasone Sodium Phosphate (Dexamethasone Sod Phosphate 4 Mg/Ml Vial) 6 mg IVPUSH DAILY [facility] Glucose (Glucose Gel 15 Gm Gel..Gram.) 15 gm PO Q15M PRN; Protocol PRN Reason: per Hypoglycemia Standing Ord. Dextrose (D10) 250 mls @ 750 mls/hr IV Q15M PRN; Protocol PRN Reason: per Hypoglycemia Standing Ord. Insulin Human Lispro (Insulin Lispro 100 Unit/Ml 3 Ml Vial) 0 unit SUBCUT QIDACHS [facility]; Protocol Melatonin (Melatonin 3 Mg Tablet) 6 mg PO BEDTIME PRN PRN Reason: Insomnia Ondansetron HCl (Ondansetron Hcl 4 Mg/2 Ml Vial) 4 mg IVPUSH Q6H PRN PRN Reason: Nausea and Vomiting Sodium Chloride (0.9 % Sodium Chloride Flush 3 Ml Syringe) 3 ml IVFLUSH QSHIFT [facility] Labs 07/14/23 07:30 07/14/23 07:30 Labs: Laboratory Results - last 24 hr 07/13/23 07/13/23 07/13/23 21:32 21:41 22:32 MCV 85.2 MCH 27.2 MCHC 31.9 RDW 16.1 H Plt Count 293 MPV 8.8 L Immature Gran % (Auto) 0.5 H Neut % (Auto) 72.9 Lymph % (Auto) 13.5 L [place] % (Auto) 12.2 H Eos % (Auto) 0.6 Baso % (Auto) 0.3 Lymph # (Auto) 1.1 L [place] # (Auto) 1.0 Eos # (Auto) 0.1 Baso # (Auto) 0.0 Abs Immat Gran (auto) 0.04 H Absolute Neuts (auto) 5.8 Absolute Nucleated RBC 0.000 Nucleated RBC % (auto) 0.0 VBG pH 7.49 H VBG pCO2 43 VBG pO2 60 VBG HCO3 33 H VBG O2 Saturation 90.0 VBG Base Excess 9.6 Anion Gap 15 Estim Creat Clear Calc 54.5 Estimated GFR > 60 Random Glucose 104 Lactic Acid Calcium 9.3 Total Bilirubin 0.3 AST 24 ALT 14 Alkaline Phosphatase 155 H Troponin I High Sens 9.5 D B-Natriuretic Peptide 113 H Total Protein 6.9 Albumin 3.4 L Urine Color Urine Appearance Urine pH Ur Specific [place] Urine Protein Urine Glucose (UA) Urine Ketones Urine Blood Urine Nitrite Ur Leukocyte Esterase Urine RBC Urine WBC Ur Squamous Epith Cells Urine Bacteria Hyaline Casts Influenza Type A (PCR) NEGATIVE Influenza Type B (PCR) NEGATIVE RSV RNA Qual (PCR) NEGATIVE SARS-CoV-2 RNA (RT-PCR) POSITIVE A 07/14/23 07/14/23 00:43 03:06 MCV MCH MCHC RDW Plt Count MPV Immature Gran % (Auto) Neut % (Auto) Lymph % (Auto) [place] % (Auto) Eos % (Auto) Baso % (Auto) Lymph # (Auto) [place] # (Auto) Eos # (Auto) Baso # (Auto) Abs Immat Gran (auto) Absolute Neuts (auto) Absolute Nucleated RBC Nucleated RBC % (auto) VBG pH VBG pCO2 VBG pO2 VBG HCO3 VBG O2 Saturation VBG Base Excess Anion Gap Estim Creat Clear Calc Estimated GFR Random Glucose Lactic Acid 1.2 Calcium Total Bilirubin AST ALT Alkaline Phosphatase Troponin I High Sens B-Natriuretic Peptide Total Protein Albumin Urine Color Yellow Urine Appearance Clear Urine pH 6.0 Ur Specific [place] 1.010 Urine Protein Trace Urine Glucose (UA) Negative Urine Ketones Negative Urine Blood Negative Urine Nitrite Positive H Ur Leukocyte Esterase Large (3+) H Urine RBC 0-2 Urine WBC 21-50 Ur Squamous Epith Cells 0-2 Urine Bacteria 4+ Hyaline Casts 0-2 Influenza Type A (PCR) Influenza Type B (PCR) RSV RNA Qual (PCR) SARS-CoV-2 RNA (RT-PCR) Assessment and Plan (1) COPD exacerbation: Status: Acute (2) COVID-19: Status: Acute Plan This is a 82-year-old female with pertinent history of chronic hypoxemic respiratory failure secondary to COPD, AFib on Eliquis, qrt-vopmwro-bliypravd diabetes mellitus, history of CRISTA noncompliant with CPAP, hypothyroidism, coronary artery disease, 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 Acute respiratory distress on chronic hypoxemic respiratory failure due to COVID-19 infection leading to acute exacerbation of COPD continue supplemental oxygen. Home oxygen 2 L at baseline. continued scheduled and p.r.n. DuoNebs. IV systemic steroids. Continue home inhalers Atrial fibrillation On Eliquis On Cardizem and beta-becca Coronary artery disease On antiplatelet agent and high-intensity statin Congestive heart failure with combined systolic and diastolic dysfunction On beta-becca and diuretics. No decompensation during admission. Not on LUCIANO-inhibitor or ARB Sys-jgzogvg-mrnsjfncm diabetes mellitus Initiating Accu-Cheks with sliding scale insulin Hypothyroidism On Synthroid CRISTA Refused CPAP at bedtime Obesity Counseled regarding diet and exercise Med rec pending DVT prophylaxis: hZao Attending Dr. Christy Full code Continue hospital stay for treatment of COVID-19 with continuous shortness of breath cough Quality Stroke Does the patient have a stroke diagnosis?: No VTE Prior VTE?: No VTE Risk Level:: Medical - moderate - high VTE Device Contraindication: Treatment Not Indicated VTE Drug Contraindication: N/A - Med Ordered
[2023-07-14 07:50] LABS: MANUAL DIFF FLAG NO
[2023-07-14 07:53] LABS: Glucose, Whole Blood 196 mg/dL (60-115)
[2023-07-14 07:54] LABS: Basophils Percent Auto 0.2 % (0-2); Hematocrit 36.6 % (37.0-47.0); Hemoglobin 11.3 g/dl (12.0-16.0); Imm Gran Abs Auto 0.04 X10*3/uL (0.00-0.03); Imm Gran Pct Auto 0.7 % (0.0-0.4); Lymphocytes Absolute Auto 0.6 X10*3/uL (1.2-4.9); Lymphocytes Percent Auto 11.9 % (20-40); Mean Corpuscular HGB Conc 30.9 g/dl (31.0-35.0); Mean Corpuscular Hemoglobin 26.5 pg (27.0-33.0); Mean Corpuscular Volume 85.7 fL (80.0-98.0); Mean Platelet Volume 9.5 fL (9.4-12.3); Monocytes Absolute Auto 0.1 X10*3/uL (0.1-1.2); Monocytes Percent Auto 2.4 % (2-11); Neutrophils Absolute Auto 4.5 x10*3/uL (2.0-8.3); Neutrophils Percent Auto 84.8 % (45-73); Platelet Count 288 X10*3/uL (160-400); Red Blood Count 4.27 X10*6/uL (4.20-5.50); Red Cell Distribution Width 16.3 % (11.0-16.0); White Blood Count 5.4 X10*3/uL (4.8-10.8)
[2023-07-14] MEDS: Insulin Lispro 100 UNIT/ML 3 ML VIAL SUBCUT ×4 (07:59→22:15)
[2023-07-14 08:13] LABS: Anion Gap 15 (12-20); Blood Urea Nitrogen 12 mg/dL (9-16); Calcium 9.4 mg/dL (8.4-10.2); Carbon Dioxide 26 mmol/L (22-29); Chloride 105 mmol/L (96-108); Creatinine Clr Calc Pharmacy 53.8; Estimated Glomerular Filt Rate > 60; Glucose Random 203 mg/dL (60-115); Potassium 3.7 mmol/L (3.3-5.1); Sodium 142 mmol/L (135-145)
[2023-07-14] MEDS: dexAMETHasone sod phosphate 4 MG/ML VIAL 6 MG IVPUSH (08:42)
[2023-07-14] MEDS: 0.9 % Sodium Chloride Flush 3 ML SYRINGE IVFLUSH ×2 (08:46→17:25)
--- NOTE | 2023-07-14 11:30 | PHA.MEDREC ---
Pharmacy Consult ? Medication Reconciliation Pharmacy has completed the medication reconciliation. spoke with patients visiting nurse Marija ([phone]) and she read me her medication list. She reports patient is currently using Advair and does not have Incruse Ellipta at home, [facility] confirmed [facility] do not [facility] for [facility] either (claims show she was using it at sn[facility] but [facility] reports she does not have at home). [facility] reports patient tries to take Lasix 40mg every day however if she is peeing too much patient will either skip or take a half tablet. [facility] confirmed patient received trulicity yesterday. [facility] also reports that she is taking a daily probiotic but does not know the brand. [facility] explained that they have not received an omeprazole prescription for patient yet so in the mean time they have been giving her dexlansoprazole. [facility] confirmed that patient started diltiazem and she last received vitamin B injection on June 18.
[2023-07-14 12:47] LABS: Glucose, Whole Blood 179 mg/dL (60-115)
[2023-07-14] MEDS: Albuterol/Iprat 2.5/0.5MG 3 ML AMPUL.NEB INHALE ×2 (15:01→21:50)
[2023-07-14 16:47] LABS: Glucose, Whole Blood 161 mg/dL (60-115)
[2023-07-14] MEDS: traMADoL HCL 50 MG TABLET PO (17:25)
[2023-07-14 20:45] LABS: Glucose, Whole Blood 160 mg/dL (60-115)
[2023-07-14] MEDS: Apixaban 5 MG TABLET PO (22:14)
[2023-07-14] MEDS: Atorvastatin Calcium 80 MG TABLET PO (22:14)
--- NOTE | 2023-07-14 23:50 | MHC.EDTECH ---
PT INCONTINENT OF LARGE AMOUNT OF URINE. PT CLEANED AND BEDDING CHANGED. PUREWICK PLACED BACK. RN AWARE
[2023-07-15] VITALS (10 sets, daily range): BP systolic 150–191; BP diastolic 67–84; PULSE 73–109; RESP 16–20; TEMP 36.4–36.8; O2SAT 94–98; BMI 39.1
[2023-07-15] MEDS: traMADoL HCL 50 MG TABLET PO ×3 (00:13→21:43)
[2023-07-15] MEDS: 0.9 % Sodium Chloride Flush 3 ML SYRINGE IVFLUSH ×4 (00:17→21:36)
--- NOTE | 2023-07-15 01:24 | HO.WOUND ---
Maceration to back of inner thighs. Area cleansed. Barrier cream applied.
[2023-07-15] MEDS: Levothyroxine Sodium 100 MCG TABLET PO (05:46)
[2023-07-15] MEDS: Albuterol/Iprat 2.5/0.5MG 3 ML AMPUL.NEB INHALE ×4 (08:06→19:55)
[2023-07-15 08:17] LABS: Hemoglobin 11.7 g/dl (12.0-16.0); Mean Corpuscular HGB Conc 32.5 g/dl (31.0-35.0); Mean Corpuscular Hemoglobin 27.1 pg (27.0-33.0); Mean Corpuscular Volume 83.5 fL (80.0-98.0); Platelet Count 295 X10*3/uL (160-400); Red Blood Count 4.31 X10*6/uL (4.20-5.50); Red Cell Distribution Width 16.1 % (11.0-16.0); White Blood Count 8.1 X10*3/uL (4.8-10.8)
[2023-07-15 08:20] LABS: Glucose, Whole Blood 217 mg/dL (60-115)
[2023-07-15 08:38] LABS: Anion Gap 15 (12-20); Blood Urea Nitrogen 19 mg/dL (9-16); Calcium 9.7 mg/dL (8.4-10.2); Carbon Dioxide 23 mmol/L (22-29); Chloride 104 mmol/L (96-108); Creatinine Clr Calc Pharmacy 51.8; Estimated Glomerular Filt Rate > 60; Glucose Random 190 mg/dL (60-115); Potassium 4.1 mmol/L (3.3-5.1); Sodium 138 mmol/L (135-145)
[2023-07-15] MEDS: Cholecalciferol (Vitamin D3) 25 MCG TABLET PO (08:41)
[2023-07-15] MEDS: Ezetimibe 10 MG TABLET PO (08:41)
[2023-07-15] MEDS: Metoprolol Succinate ER 50 MG TAB.ER.24H PO (08:41)
[2023-07-15] MEDS: dilTIAZem HCL CD 120 MG CAP.ER.DEG PO (08:41)
[2023-07-15] MEDS: Thiamine HCL 100 MG TABLET PO (08:42)
[2023-07-15] MEDS: Aspirin Enteric Coated 81 MG TABLET.DR PO (08:42)
[2023-07-15] MEDS: Insulin Lispro 100 UNIT/ML 3 ML VIAL SUBCUT ×2 (08:42→12:28)
[2023-07-15] MEDS: Apixaban 5 MG TABLET PO ×2 (08:42→21:36)
[2023-07-15] MEDS: DULoxetine HCl 30 MG CAPSULE.DR PO (08:43)
[2023-07-15] MEDS: dexAMETHasone sod phosphate 4 MG/ML VIAL 6 MG IVPUSH (08:44)
--- NOTE | 2023-07-15 08:53 | P.PNIM_ITS ---
Subjective Subjective Date of Service: 07/15/23 Review of Systems Follow up Covid 19 doing better but still with cough c/o burning with urination Physical Exam 2 Vital Signs: Vital Signs: Last Vital Signs Temp 97.8 F 07/15/23 08:00 Pulse 102 H 07/15/23 08:08 Resp 18 07/15/23 08:08 BP 190/70 H 07/15/23 08:00 Pulse Ox 94 07/15/23 08:00 O2 Del Method Nasal Cannula 07/15/23 08:00 O2 Flow Rate 2 07/15/23 08:00 BMI result Body Mass Index 39.1 Appearing in no acute distress lung sounds dim heart regular rate rhythm, clear S1, S2 positive bowel sounds, abdomen is soft, nontender neuro patient is alert x3, no focal deficits Objective Data Active Medications Acetaminophen (Acetaminophen 325 Mg Tablet) 650 mg PO Q6H PRN PRN Reason: Fever >100.4 Albuterol Sulfate (Albuterol Sulfate (0.083%) 2.5 Mg/3 Ml Vial.Neb) 2.5 mg INHALE Q6H PRN PRN Reason: wheezing Albuterol/Ipratropium (Albuterol/Iprat 2.5/0.5mg 3 Ml Ampul.Neb) 3 ml INHALE RQ4H WHILE AWAKE [facility] Last Admin: 07/15/23 08:06 Dose: 3 ml Documented By: PASTOR Albuterol/Ipratropium (Albuterol/Iprat 2.5/0.5mg 3 Ml Ampul.Neb) 3 ml INHALE Q4H PRN PRN Reason: Wheezing Apixaban (Apixaban 5 Mg Tablet) 5 mg PO BID [facility] Last Admin: 07/15/23 08:42 Dose: 5 mg Documented By: POLINA Aspirin (Aspirin Enteric Coated 81 Mg Tablet.) 81 mg PO DAILY [facility] Last Admin: 07/15/23 08:42 Dose: 81 mg Documented By: POLINA Atorvastatin Calcium (Atorvastatin Calcium 80 Mg Tablet) 80 mg PO BEDTIME [facility] Last Admin: 07/14/23 22:14 Dose: 80 mg Documented By: HILDA Cyanocobalamin (Cyanocobalamin (Vitamin B-12) 1,000 Mcg/Ml Vial) 1,000 mcg IM Q28D [facility] Dexamethasone Sodium Phosphate (Dexamethasone Sod Phosphate 4 Mg/Ml Vial) 6 mg IVPUSH DAILY [facility] Last Admin: 07/15/23 08:44 Dose: 6 mg Documented By: POLINA Diltiazem HCl (Diltiazem Hcl Cd 120 Mg Cap.Er.Deg) 120 mg PO DAILY [facility]; Protocol Last Admin: 07/15/23 08:41 Dose: 120 mg Documented By: POLINA Duloxetine HCl (Duloxetine Hcl 30 Mg Capsule.Dr) 30 mg PO DAILY [facility] Last Admin: 07/15/23 08:43 Dose: 30 mg Documented By: POLINA Ezetimibe (Ezetimibe 10 Mg Tablet) 10 mg PO DAILY [facility] Last Admin: 07/15/23 08:41 Dose: 10 mg Documented By: POLINA Glucose (Glucose Gel 15 Gm Gel..Gram.) 15 gm PO Q15M PRN; Protocol PRN Reason: per Hypoglycemia Standing Ord. Dextrose (D10) 250 mls @ 750 mls/hr IV Q15M PRN; Protocol PRN Reason: per Hypoglycemia Standing Ord. Insulin Human Lispro (Insulin Lispro 100 Unit/Ml 3 Ml Vial) 0 unit SUBCUT QIDACHS [facility]; Protocol Last Admin: 07/15/23 08:42 Dose: 4 unit Documented By: POLINA Levothyroxine Sodium (Levothyroxine Sodium 100 Mcg Tablet) 100 mcg PO DAILY@0600 [facility] Last Admin: 07/15/23 05:46 Dose: 100 mcg Documented By: ANAYA Melatonin (Melatonin 3 Mg Tablet) 6 mg PO BEDTIME PRN PRN Reason: Insomnia Metoprolol Succinate (Metoprolol Succinate Er 50 Mg Tab.Er.24h) 50 mg PO DAILY [facility]; Protocol Last Admin: 07/15/23 08:41 Dose: 50 mg Documented By: POLINA Ondansetron HCl (Ondansetron Hcl 4 Mg/2 Ml Vial) 4 mg IVPUSH Q6H PRN PRN Reason: Nausea and Vomiting Sodium Chloride (0.9 % Sodium Chloride Flush 3 Ml Syringe) 3 ml IVFLUSH QSHIFT [facility] Last Admin: 07/15/23 08:42 Dose: 3 ml Documented By: POLINA Thiamine HCl (Thiamine Hcl 100 Mg Tablet) 100 mg PO DAILY [facility] Last Admin: 07/15/23 08:42 Dose: 100 mg Documented By: POLINA Tramadol HCl (Tramadol Hcl 50 Mg Tablet) 50 mg PO Q6H PRN PRN Reason: Pain, Moderate(Pain Scale 4-6) Last Admin: 07/15/23 06:53 Dose: 50 mg Documented By: ANAYA Vitamin D (Cholecalciferol (Vitamin D3) 25 Mcg Tablet) 25 mcg PO DAILY [facility] Last Admin: 07/15/23 08:41 Dose: 25 mcg Documented By: POLINA Labs 07/15/23 07:51 07/15/23 07:51 Labs: Laboratory Results - last 24 hr 07/14/23 07/14/23 07/14/23 12:38 16:43 20:40 MCV MCH MCHC RDW Plt Count MPV Absolute Nucleated RBC Nucleated RBC % (auto) Anion Gap Estim Creat Clear Calc Estimated GFR POC Glucose 179 H 161 H 160 H Random Glucose Calcium Magnesium 07/15/23 07/15/23 07:51 08:15 MCV 83.5 MCH 27.1 MCHC 32.5 RDW 16.1 H Plt Count 295 MPV 10.0 Absolute Nucleated RBC 0.000 Nucleated RBC % (auto) 0.0 Anion Gap 15 Estim Creat Clear Calc 51.8 Estimated GFR > 60 POC Glucose 217 H Random Glucose 190 H Calcium 9.7 Magnesium 2.0 Microbiology Microbiology Results: Microbiology 07/14/23 00:43 Blood Culture - Preliminary Blood - Venous No growth after 24 hours. 07/14/23 00:44 Blood Culture - Preliminary Blood - Venous No growth after 24 hours. 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 UTI Start Rocephin follow final urine cx Acute respiratory distress on chronic hypoxemic respiratory failure due to COVID-19 infection leading to acute exacerbation of COPD continue supplemental oxygen. Home oxygen 2 L at baseline. continued scheduled and p.r.n. DuRakan. IV systemic steroids. Continue home inhalers Atrial fibrillation On Eliquis On Cardizem and beta-becca Coronary artery disease On antiplatelet agent and high-intensity statin Congestive heart failure with combined systolic and diastolic dysfunction On beta-becca and diuretics. No decompensation during admission. Not on LUCIANO-inhibitor or ARB Hvk-uoikrgy-sszimbypl diabetes mellitus Initiating Accu-Cheks with sliding scale insulin Hypothyroidism On Synthroid CRISTA Refused CPAP at bedtime Obesity Counseled regarding diet and exercise DVT prophylaxis: Zhao Attending Dr. Christy Full code Continue hospital stay for treatment of COVID-19 with continuous shortness of breath cough Quality Stroke Does the patient have a stroke diagnosis?: No VTE Prior VTE?: No VTE Risk Level:: Medical - moderate - high VTE Device Contraindication: Treatment Not Indicated VTE Drug Contraindication: N/A - Med Ordered
[2023-07-15] MEDS: cefTRIAXone sodium 1 GM in 0.9 % Sodium Chloride 50 ML IV (09:44)
[2023-07-15 12:25] LABS: Glucose, Whole Blood 163 mg/dL (60-115)
--- NOTE | 2023-07-15 13:36 | MHC.CM.PN ---
IMM 07/14. Pt is a readmission, now with covid-19 infection/dyspnea. Pt lives alone at home, with [facility] services, Visiting [place] for personal care, and Home O2 through [facility]. Pt has a walker, wheelchair, and a hospital bed. Pt will need BLS/Jj transport back home at discharge. Pt is not agreeable to going to [facility] and would like to return home with resumption of services at discharge. HCP on file and verified. PCP: Dr. Cornejo Po
[2023-07-15 17:24] LABS: Glucose, Whole Blood 137 mg/dL (60-115)
[2023-07-15 17:51] LABS: Glucose, Whole Blood 203 mg/dL (60-115)
[2023-07-15] MEDS: Atorvastatin Calcium 80 MG TABLET PO (21:35)
[2023-07-15 21:53] LABS: Glucose, Whole Blood 131 mg/dL (60-115)
[2023-07-16] VITALS (11 sets, daily range): BP systolic 146–165; BP diastolic 69–86; PULSE 70–93; RESP 17–18; TEMP 36–36.7; O2SAT 95–98
[2023-07-16 07:52] LABS: Glucose, Whole Blood 82 mg/dL (60-115)
[2023-07-16] MEDS: Albuterol/Iprat 2.5/0.5MG 3 ML AMPUL.NEB INHALE ×4 (08:24→20:13)
[2023-07-16] MEDS: dilTIAZem HCL CD 120 MG CAP.ER.DEG PO (08:59)
[2023-07-16] MEDS: dexAMETHasone sod phosphate 4 MG/ML VIAL 6 MG IVPUSH (08:59)
[2023-07-16] MEDS: Thiamine HCL 100 MG TABLET PO (08:59)
[2023-07-16] MEDS: Apixaban 5 MG TABLET PO ×2 (08:59→22:09)
[2023-07-16] MEDS: Cholecalciferol (Vitamin D3) 25 MCG TABLET PO (08:59)
[2023-07-16] MEDS: DULoxetine HCl 30 MG CAPSULE.DR PO (08:59)
[2023-07-16] MEDS: cefTRIAXone sodium 1 GM in 0.9 % Sodium Chloride 50 ML IV (08:59)
[2023-07-16] MEDS: Metoprolol Succinate ER 50 MG TAB.ER.24H PO (08:59)
[2023-07-16] MEDS: Aspirin Enteric Coated 81 MG TABLET.DR PO (08:59)
[2023-07-16] MEDS: Ezetimibe 10 MG TABLET PO (08:59)
[2023-07-16] MEDS: 0.9 % Sodium Chloride Flush 3 ML SYRINGE IVFLUSH ×2 (09:00→18:11)
--- NOTE | 2023-07-16 10:26 | MHC.CM.PN ---
pt has been medically cleared for DC, she will go home today via BLS, her staff at [facility] have been notified and they will be at her home at 5pm today. Pt is active with [facility], they have been notified of DC, and DC summary will be faxed at [phone].
[2023-07-16 11:48] LABS: Glucose, Whole Blood 138 mg/dL (60-115)
--- NOTE | 2023-07-16 12:39 | HO.PM.IMPN ---
Subjective Subjective Date of Service: 07/16/23 Review of Systems Follow up Covid 19 doing better but still with cough Physical Exam Vital Signs: Vital Signs: Last Vital Signs Temp 97.6 F 07/16/23 11:19 Pulse 84 07/16/23 12:16 Resp 17 07/16/23 12:16 BP 150/86 H 07/16/23 11:19 Pulse Ox 96 07/16/23 11:19 O2 Del Method Nasal Cannula 07/16/23 11:19 O2 Flow Rate 2 07/16/23 11:19 BMI result Body Mass Index 39.1 Objective Data Active Medications Acetaminophen (Acetaminophen 325 Mg Tablet) 650 mg PO Q6H PRN PRN Reason: Fever >100.4 Albuterol Sulfate (Albuterol Sulfate (0.083%) 2.5 Mg/3 Ml Vial.Neb) 2.5 mg INHALE Q6H PRN PRN Reason: wheezing Albuterol/Ipratropium (Albuterol/Iprat 2.5/0.5mg 3 Ml Ampul.Neb) 3 ml INHALE RQ4H WHILE AWAKE [facility] Last Admin: 07/16/23 12:15 Dose: 3 ml Documented By: PASTOR Albuterol/Ipratropium (Albuterol/Iprat 2.5/0.5mg 3 Ml Ampul.Neb) 3 ml INHALE Q4H PRN PRN Reason: Wheezing Apixaban (Apixaban 5 Mg Tablet) 5 mg PO BID [facility] Last Admin: 07/16/23 08:59 Dose: 5 mg Documented By: ODETTE Aspirin (Aspirin Enteric Coated 81 Mg Tablet.) 81 mg PO DAILY [facility] Last Admin: 07/16/23 08:59 Dose: 81 mg Documented By: ODETTE Atorvastatin Calcium (Atorvastatin Calcium 80 Mg Tablet) 80 mg PO BEDTIME [facility] Last Admin: 07/15/23 21:35 Dose: 80 mg Documented By: ANAYA Cyanocobalamin (Cyanocobalamin (Vitamin B-12) 1,000 Mcg/Ml Vial) 1,000 mcg IM Q28D [facility] Dexamethasone Sodium Phosphate (Dexamethasone Sod Phosphate 4 Mg/Ml Vial) 6 mg IVPUSH DAILY [facility] Last Admin: 07/16/23 08:59 Dose: 6 mg Documented By: ODETTE Diltiazem HCl (Diltiazem Hcl Cd 120 Mg Cap.Er.Deg) 120 mg PO DAILY [facility]; Protocol Last Admin: 07/16/23 08:59 Dose: 120 mg Documented By: ODETTE Duloxetine HCl (Duloxetine Hcl 30 Mg Capsule.Dr) 30 mg PO DAILY [facility] Last Admin: 07/16/23 08:59 Dose: 30 mg Documented By: ODETTE Ezetimibe (Ezetimibe 10 Mg Tablet) 10 mg PO DAILY [facility] Last Admin: 07/16/23 08:59 Dose: 10 mg Documented By: ODETTE Glucose (Glucose Gel 15 Gm Gel..Gram.) 15 gm PO Q15M PRN; Protocol PRN Reason: per Hypoglycemia Standing Ord. Dextrose (D10) 250 mls @ 750 mls/hr IV Q15M PRN; Protocol PRN Reason: per Hypoglycemia Standing Ord. Ceftriaxone Sodium 1 gm/ (Sodium Chloride) 50 mls @ 100 mls/hr IV Q24H [facility] Last Infusion: 07/16/23 09:51 Dose: Infused Documented By: TRISTAN Insulin Human Lispro (Insulin Lispro 100 Unit/Ml 3 Ml Vial) 0 unit SUBCUT QIDACHS [facility]; Protocol Last Admin: 07/16/23 12:07 Dose: Not Given Documented By: TRISTAN Non-Admin Reason: No Insulin Coverage Levothyroxine Sodium (Levothyroxine Sodium 100 Mcg Tablet) 100 mcg PO DAILY@0600 [facility] Last Admin: 07/16/23 06:50 Dose: Not Given Documented By: ANAYA Non-Admin Reason: Patient Asleep Melatonin (Melatonin 3 Mg Tablet) 6 mg PO BEDTIME PRN PRN Reason: Insomnia Metoprolol Succinate (Metoprolol Succinate Er 50 Mg Tab.Er.24h) 50 mg PO DAILY [facility]; Protocol Last Admin: 07/16/23 08:59 Dose: 50 mg Documented By: ODETTE Ondansetron HCl (Ondansetron Hcl 4 Mg/2 Ml Vial) 4 mg IVPUSH Q6H PRN PRN Reason: Nausea and Vomiting Sodium Chloride (0.9 % Sodium Chloride Flush 3 Ml Syringe) 3 ml IVFLUSH QSHIFT [facility] Last Admin: 07/16/23 09:00 Dose: 3 ml Documented By: ODETTE Thiamine HCl (Thiamine Hcl 100 Mg Tablet) 100 mg PO DAILY [facility] Last Admin: 07/16/23 08:59 Dose: 100 mg Documented By: ODETTE Tramadol HCl (Tramadol Hcl 50 Mg Tablet) 50 mg PO Q6H PRN PRN Reason: Pain, Moderate(Pain Scale 4-6) Last Admin: 07/15/23 21:43 Dose: 50 mg Documented By: ANAYA Vitamin D (Cholecalciferol (Vitamin D3) 25 Mcg Tablet) 25 mcg PO DAILY [facility] Last Admin: 07/16/23 08:59 Dose: 25 mcg Documented By: ODETTE Labs 07/15/23 07:51 07/15/23 07:51 Labs: Laboratory Results - last 24 hr 07/15/23 07/15/23 07/15/23 17:21 17:48 21:23 POC Glucose 137 H 203 H 131 H 07/16/23 07/16/23 07:44 11:45 POC Glucose 82 138 H Microbiology Microbiology Results: Microbiology 07/14/23 Unknown Urine Culture - Final Urine clean catch - Clean Catch Midstream Escherichia coli 07/14/23 00:43 Blood Culture - Preliminary Blood - Venous No growth after 48 hours. 07/14/23 00:44 Blood Culture - Preliminary Blood - Venous No growth after 48 hours. 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 E coli UTI Continue Rocephin Acute respiratory distress on chronic hypoxemic respiratory failure due to COVID-19 infection leading to acute exacerbation of COPD. Resolved continue supplemental oxygen. Home oxygen 2 L at baseline. continued scheduled and p.r.n. DuoNebs. IV systemic steroids total 10 days for COVID. Continue home inhalers Atrial fibrillation On Eliquis On Cardizem and beta-becca Coronary artery disease On antiplatelet agent and high-intensity statin Congestive heart failure with combined systolic and diastolic dysfunction On beta-becca and diuretics. No decompensation during admission. Not on LUCIANO-inhibitor or ARB Lvx-yfwxmay-vdhggapib diabetes mellitus Initiating Accu-Cheks with sliding scale insulin Hypothyroidism On Synthroid CRISTA Refused CPAP at bedtime Obesity Counseled regarding diet and exercise DVT prophylaxis: Zhao Attending Dr. Espinosa Full code Continue hospital stay for treatment of COVID-19 with continuous shortness of breath cough Quality Stroke Does the patient have a stroke diagnosis?: No VTE Prior VTE?: No VTE Risk Level:: Medical - moderate - high VTE Device Contraindication: Treatment Not Indicated VTE Drug Contraindication: N/A - Med Ordered
--- NOTE | 2023-07-16 13:46 | MHC.CM.PN ---
Pt was medically cleared to DC home, JOAQUIN called her home care provider, [facility] [phone] and was told that they will not provide care until 07/18/23 because pt has Covid. JOAQUIN approached pt about going to [facility], which she adamantly refused. [facility] situation and [facility] to care for pt at home, awaiting return call.
[2023-07-16 16:17] LABS: Glucose, Whole Blood 144 mg/dL (60-115)
[2023-07-16 21:10] LABS: Glucose, Whole Blood 159 mg/dL (60-115)
[2023-07-16] MEDS: Melatonin 3 MG TABLET 6 MG PO (22:08)
[2023-07-16] MEDS: traMADoL HCL 50 MG TABLET PO (22:09)
[2023-07-16] MEDS: Atorvastatin Calcium 80 MG TABLET PO (22:09)
[2023-07-16] MEDS: Insulin Lispro 100 UNIT/ML 3 ML VIAL SUBCUT (23:02)
[2023-07-17] VITALS (12 sets, daily range): BP systolic 149–175; BP diastolic 68–93; PULSE 65–83; RESP 16–20; TEMP 35.8–36.5; O2SAT 97–99
[2023-07-17 08:20] LABS: Glucose, Whole Blood 116 mg/dL (60-115)
[2023-07-17] MEDS: Aspirin Enteric Coated 81 MG TABLET.DR PO (08:27)
[2023-07-17] MEDS: Ezetimibe 10 MG TABLET PO (08:27)
[2023-07-17] MEDS: Thiamine HCL 100 MG TABLET PO (08:27)
[2023-07-17] MEDS: 0.9 % Sodium Chloride Flush 3 ML SYRINGE IVFLUSH ×4 (08:27→21:03)
[2023-07-17] MEDS: DULoxetine HCl 30 MG CAPSULE.DR PO (08:27)
[2023-07-17] MEDS: dilTIAZem HCL CD 120 MG CAP.ER.DEG PO (08:27)
[2023-07-17] MEDS: cefTRIAXone sodium 1 GM in 0.9 % Sodium Chloride 50 ML IV (08:28)
[2023-07-17] MEDS: Cholecalciferol (Vitamin D3) 25 MCG TABLET PO (08:28)
[2023-07-17] MEDS: Apixaban 5 MG TABLET PO ×2 (08:28→21:03)
[2023-07-17] MEDS: Metoprolol Succinate ER 50 MG TAB.ER.24H PO (08:28)
[2023-07-17] MEDS: dexAMETHasone sod phosphate 4 MG/ML VIAL 6 MG IVPUSH (08:29)
[2023-07-17] MEDS: Cyanocobalamin (Vitamin B-12) 1,000 MCG/ML VIAL 1000 MCG IM (08:35)
[2023-07-17] MEDS: Albuterol/Iprat 2.5/0.5MG 3 ML AMPUL.NEB INHALE ×4 (08:56→19:47)
--- NOTE | 2023-07-17 09:46 | HO.PM.IMPN ---
Subjective Subjective Date of Service: 07/17/23 Review of Systems Follow up Covid 19 doing better but still with cough Physical Exam Vital Signs: Vital Signs: Last Vital Signs Temp 96.4 F L 07/17/23 08:07 Pulse 83 07/17/23 08:56 Resp 18 07/17/23 08:56 BP 175/93 H 07/17/23 08:28 Pulse Ox 98 07/17/23 08:07 O2 Del Method Room Air 07/17/23 08:07 O2 Flow Rate 2 07/16/23 15:33 BMI result Body Mass Index 39.1 Appearing in no acute distress lung sounds are clear to auscultation heart regular rate rhythm, clear S1, S2 positive bowel sounds, abdomen is soft, nontender neuro patient is alert x3, no focal deficits Objective Data Active Medications Acetaminophen (Acetaminophen 325 Mg Tablet) 650 mg PO Q6H PRN PRN Reason: Fever >100.4 Albuterol Sulfate (Albuterol Sulfate (0.083%) 2.5 Mg/3 Ml Vial.Neb) 2.5 mg INHALE Q6H PRN PRN Reason: wheezing Albuterol/Ipratropium (Albuterol/Iprat 2.5/0.5mg 3 Ml Ampul.Neb) 3 ml INHALE RQ4H WHILE AWAKE [facility] Last Admin: 07/17/23 08:56 Dose: 3 ml Documented By: PAVEL Albuterol/Ipratropium (Albuterol/Iprat 2.5/0.5mg 3 Ml Ampul.Neb) 3 ml INHALE Q4H PRN PRN Reason: Wheezing Apixaban (Apixaban 5 Mg Tablet) 5 mg PO BID [facility] Last Admin: 07/17/23 08:28 Dose: 5 mg Documented By: TRISTAN Aspirin (Aspirin Enteric Coated 81 Mg Tablet.) 81 mg PO DAILY [facility] Last Admin: 07/17/23 08:27 Dose: 81 mg Documented By: TRISTAN Atorvastatin Calcium (Atorvastatin Calcium 80 Mg Tablet) 80 mg PO BEDTIME [facility] Last Admin: 07/16/23 22:09 Dose: 80 mg Documented By: ALEKSANDAR Cyanocobalamin (Cyanocobalamin (Vitamin B-12) 1,000 Mcg/Ml Vial) 1,000 mcg IM Q28D [facility] Last Admin: 07/17/23 08:35 Dose: 1,000 mcg Documented By: TRISTAN Dexamethasone Sodium Phosphate (Dexamethasone Sod Phosphate 4 Mg/Ml Vial) 6 mg IVPUSH DAILY [facility] Last Admin: 07/17/23 08:29 Dose: 6 mg Documented By: TRISTAN Diltiazem HCl (Diltiazem Hcl Cd 120 Mg Cap.Er.Deg) 120 mg PO DAILY [facility]; Protocol Last Admin: 07/17/23 08:27 Dose: 120 mg Documented By: TRISTAN Duloxetine HCl (Duloxetine Hcl 30 Mg Capsule.Dr) 30 mg PO DAILY [facility] Last Admin: 07/17/23 08:27 Dose: 30 mg Documented By: TRISTAN Ezetimibe (Ezetimibe 10 Mg Tablet) 10 mg PO DAILY [facility] Last Admin: 07/17/23 08:27 Dose: 10 mg Documented By: TRISTAN Glucose (Glucose Gel 15 Gm Gel..Gram.) 15 gm PO Q15M PRN; Protocol PRN Reason: per Hypoglycemia Standing Ord. Dextrose (D10) 250 mls @ 750 mls/hr IV Q15M PRN; Protocol PRN Reason: per Hypoglycemia Standing Ord. Ceftriaxone Sodium 1 gm/ (Sodium Chloride) 50 mls @ 100 mls/hr IV Q24H [facility] Last Infusion: 07/17/23 09:02 Dose: Infused Documented By: TRISTAN Insulin Human Lispro (Insulin Lispro 100 Unit/Ml 3 Ml Vial) 0 unit SUBCUT QIDACHS [facility]; Protocol Last Admin: 07/17/23 08:10 Dose: Not Given Documented By: TRISTAN Non-Admin Reason: No Insulin Coverage Levothyroxine Sodium (Levothyroxine Sodium 100 Mcg Tablet) 100 mcg PO DAILY@0600 [facility] Last Admin: 07/17/23 06:00 Dose: Not Given Documented By: ALEKSANDAR Non-Admin Reason: Patient Asleep Melatonin (Melatonin 3 Mg Tablet) 6 mg PO BEDTIME PRN PRN Reason: Insomnia Last Admin: 07/16/23 22:08 Dose: 6 mg Documented By: ALEKSANDAR Metoprolol Succinate (Metoprolol Succinate Er 50 Mg Tab.Er.24h) 50 mg PO DAILY [facility]; Protocol Last Admin: 07/17/23 08:28 Dose: 50 mg Documented By: TRISTAN Ondansetron HCl (Ondansetron Hcl 4 Mg/2 Ml Vial) 4 mg IVPUSH Q6H PRN PRN Reason: Nausea and Vomiting Sodium Chloride (0.9 % Sodium Chloride Flush 3 Ml Syringe) 3 ml IVFLUSH QSHIFT [facility] Last Admin: 07/17/23 08:27 Dose: 3 ml Documented By: TRISTAN Thiamine HCl (Thiamine Hcl 100 Mg Tablet) 100 mg PO DAILY [facility] Last Admin: 07/17/23 08:27 Dose: 100 mg Documented By: TRISTAN Tramadol HCl (Tramadol Hcl 50 Mg Tablet) 50 mg PO Q6H PRN PRN Reason: Pain, Moderate(Pain Scale 4-6) Last Admin: 07/16/23 22:09 Dose: 50 mg Documented By: ALEKSANDAR Vitamin D (Cholecalciferol (Vitamin D3) 25 Mcg Tablet) 25 mcg PO DAILY [facility] Last Admin: 07/17/23 08:28 Dose: 25 mcg Documented By: TRISTAN Labs 07/15/23 07:51 07/15/23 07:51 Labs: Laboratory Results - last 24 hr 07/16/23 07/16/23 07/16/23 11:45 16:12 21:07 POC Glucose 138 H 144 H 159 H 07/17/23 08:00 POC Glucose 116 H Microbiology Microbiology Results: Microbiology 07/14/23 Unknown Urine Culture - Final Urine clean catch - Clean Catch Midstream Escherichia coli Assessment and Plan (1) COPD exacerbation: Status: Acute (2) COVID-19: Status: Acute Plan This is a 82-year-old female with pertinent history of chronic hypoxemic respiratory failure secondary to COPD, AFib on Eliquis, aby-gofzvbw-pxaavzupd diabetes mellitus, history of CRISTA noncompliant with CPAP, hypothyroidism, coronary artery disease, 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 E coli UTI Continue Rocephin Acute respiratory distress on chronic hypoxemic respiratory failure due to COVID-19 infection leading to acute exacerbation of COPD. Resolved continue supplemental oxygen. Home oxygen 2 L at baseline. continued scheduled and p.r.n. DuoNebs. IV systemic steroids total 10 days for COVID. Continue home inhalers Atrial fibrillation On Eliquis On Cardizem and beta-becca Coronary artery disease On antiplatelet agent and high-intensity statin Congestive heart failure with combined systolic and diastolic dysfunction On beta-becca and diuretics. No decompensation during admission. Not on LUCIANO-inhibitor or ARB Erp-qovcwor-towggpvlv diabetes mellitus Initiating Accu-Cheks with sliding scale insulin Hypothyroidism On Synthroid CRISTA Refused CPAP at bedtime Obesity Counseled regarding diet and exercise DVT prophylaxis: Zhao Attending Dr. Espinosa Full code DISPO Home with services when medically clear Continue hospital stay for treatment of COVID-19 with continuous shortness of breath cough Quality Stroke Does the patient have a stroke diagnosis?: No VTE Prior VTE?: No VTE Risk Level:: Medical - moderate - high VTE Device Contraindication: Treatment Not Indicated VTE Drug Contraindication: N/A - Med Ordered
[2023-07-17 12:19] LABS: Glucose, Whole Blood 167 mg/dL (60-115)
[2023-07-17] MEDS: Insulin Lispro 100 UNIT/ML 3 ML VIAL SUBCUT ×3 (12:37→21:03)
--- NOTE | 2023-07-17 14:32 | HO.WOUND ---
Wound Consult: Initial 83yr old?F admitted to [facility] on 07/14/23 - See progress notes and H&P for detailed history.? Wound consult placed for Bilateral Inner Thighs.? Patient agreeable to assessment and photo documentation.? Perineal area, bilaterla inner thighs assessed for MASD (Moisture Associated Skin Damage), intact pink mirrored tissue no open areas assessed at this time. Barrier cream in use already. Purewick in palce and no leaking noted on bed linen. Recommend continue to off load pressure, apply barrier cream and use Purewick while immobile in bed. Recommendations: 1. Turn and Reposition every 2 hours and as needed for patient comfort.? Use pillows or wedges to support off loading positions. 2. Off Load all bony prominences with use of pillows and heel boots if needed.? Apply Preventative foams where needed. ? 3. Monitor for incontinence and moisture control, use barrier creams when needed for prevention and treatment. 4. Provide adequate and supplemental nutrition.? 5. Order or Continue low air loss mattress. 6. When applicable maintain blood glucose levels per Providers order. 7. Perineal and Bilateral Inner Thighs - Cleanse with PH balance spray or wipes, pat dry. ?Apply thin layer of Barrier cream to wound bed - only pat and dab no scrub and rub when soiling occurs. Reapply thin layer PRN after each episode of incontinence. Re-consult wound care Nurse for wound deterioration or wound changes.
--- NOTE | 2023-07-17 14:55 | MHC.CM.PN ---
Pt has not been medically cleared for DC, anticipate DC on 07/18/23 to home and resume home care and VNA services.
[2023-07-17 16:47] LABS: Glucose, Whole Blood 153 mg/dL (60-115)
[2023-07-17 20:32] LABS: Glucose, Whole Blood 152 mg/dL (60-115)
[2023-07-17] MEDS: Atorvastatin Calcium 80 MG TABLET PO (21:03)
[2023-07-17] MEDS: traMADoL HCL 50 MG TABLET PO (21:13)
[2023-07-17] MEDS: Melatonin 3 MG TABLET 6 MG PO (21:13)
[2023-07-18] VITALS (8 sets, daily range): BP systolic 153–181; BP diastolic 64–90; PULSE 64–94; RESP 18–20; TEMP 36.1–37.1; O2SAT 91–98
--- NOTE | 2023-07-18 01:43 | PC.NURSE ---
Addendum entered by Dilcia Marley RN 07/18/23 04:45: Pt continued to have a nose bleed. Dr Fernández notified and at bedside to assess. packed right nare with gauze moistened with TNK - this lasted 45 to 60 minutes and became saturated with blood dripping to patients lip. Dr Fernández notified and at bedside a second time. Repacked right nare with gauze moistened with TNK. Pt also at this time coughed up a large blood clot (MD present to see this). Labs ordered and phlebotomy at bedside to draw labs. Original Note: Pt called to notify staff that her nose was bleeding. A small amout of blood is noted on tissue and sheet, also a small blood clot noted. Pt wearing oxygen - humidification added. Dr Fernández made aware via [employer]. Pt has been educated not to pick at or blow nose. Will continue to monitor.
[2023-07-18] MEDS: Tranexamic Acid 1,000 MG/10 ML VIAL 500 MG INTRANASAL (03:20)
--- NOTE | 2023-07-18 03:31 | PM.EVENT ---
Event Note Date of Service: 07/18/23 Event Note: 12:47 AM - Pt started to have mild bleeding from right nostril + small clot. Humidification was added to supplemental oxygen (nasal cannula). 2:19 AM - Nose bleeding is more steadily now. Pt has not been picking or blowing. 3:15 AM - Nasal packing (one gauze 2X2 in) soaked with TXA applied to right nostril. 4:08 AM - Nasal packing is saturated and more blood is dripping down to lip. Patient spitted a large blood clot (posterior drip). 4:25 AM - Nasal packing was removed and new nasal packing soaked with TXA reapplied. Aspirin and Eliquis on hold. 5:15 AM - Labs stat showed stable H&H. Mildly elevated INR. Vitamin K ordered. If bleeding persists will insert rapid rhino rocket. Time Spent With Patient Time: Total time managing care of this patient today ____ minutes.
[2023-07-18 04:57] LABS: Hematocrit 35.9 % (37.0-47.0); Hemoglobin 11.7 g/dl (12.0-16.0); Mean Corpuscular HGB Conc 32.6 g/dl (31.0-35.0); Mean Corpuscular Hemoglobin 27.3 pg (27.0-33.0); Mean Corpuscular Volume 83.7 fL (80.0-98.0); Mean Platelet Volume 8.9 fL (9.4-12.3); Platelet Count 367 X10*3/uL (160-400); Red Blood Count 4.29 X10*6/uL (4.20-5.50); Red Cell Distribution Width 15.4 % (11.0-16.0)
[2023-07-18 05:01] LABS: INTERNATIONAL NORM RATIO 1.3 (0.9-1.1); Prothrombin Time 16.1 SEC (11.1-13.3)
[2023-07-18 05:07] LABS: Anion Gap 14 (12-20); Blood Urea Nitrogen 30 mg/dL (9-16); Calcium 9.4 mg/dL (8.4-10.2); Carbon Dioxide 28 mmol/L (22-29); Chloride 104 mmol/L (96-108); Estimated Glomerular Filt Rate > 60; Glucose Random 129 mg/dL (60-115); Sodium 141 mmol/L (135-145)
[2023-07-18] MEDS: Phytonadione (Vit K1) 5 MG in 0.9 % Sodium Chloride 50 ML 50.5 MG IV (06:18)
[2023-07-18] MEDS: Levothyroxine Sodium 100 MCG TABLET PO (06:18)
[2023-07-18 07:43] LABS: Glucose, Whole Blood 118 mg/dL (60-115)
[2023-07-18] MEDS: Albuterol/Iprat 2.5/0.5MG 3 ML AMPUL.NEB INHALE ×4 (08:17→19:59)
[2023-07-18] MEDS: cefTRIAXone sodium 1 GM in 0.9 % Sodium Chloride 50 ML IV (08:21)
[2023-07-18] MEDS: dexAMETHasone sod phosphate 4 MG/ML VIAL 6 MG IVPUSH (08:22)
[2023-07-18] MEDS: Thiamine HCL 100 MG TABLET PO (08:24)
[2023-07-18] MEDS: Metoprolol Succinate ER 50 MG TAB.ER.24H PO (08:24)
[2023-07-18] MEDS: Ezetimibe 10 MG TABLET PO (08:24)
[2023-07-18] MEDS: DULoxetine HCl 30 MG CAPSULE.DR PO (08:24)
[2023-07-18] MEDS: Cholecalciferol (Vitamin D3) 25 MCG TABLET PO (08:24)
[2023-07-18] MEDS: dilTIAZem HCL CD 120 MG CAP.ER.DEG PO (08:25)
[2023-07-18] MEDS: 0.9 % Sodium Chloride Flush 3 ML SYRINGE IVFLUSH ×2 (08:25→21:04)
[2023-07-18 11:26] LABS: Glucose, Whole Blood 195 mg/dL (60-115)
[2023-07-18] MEDS: Insulin Lispro 100 UNIT/ML 3 ML VIAL SUBCUT ×2 (13:04→20:59)
--- NOTE | 2023-07-18 13:55 | HO.PM.IMPN ---
Subjective Subjective Date of Service: 07/18/23 Interval History: Seen and examined this morning Follow-up for COVID-19, UTI Overnight developed epistaxis requiring nasal packing. Eliquis, aspirin were placed on hold Denies shortness of breath Review of Systems Review of Systems: Yes all other systems are reviewed and are negative Constitutional Constitutional: Denies fever(s) Cardiovascular Cardiovascular: Denies chest pain Physical Exam Vital Signs: Vital Signs: Last Vital Signs Temp 97.3 F 07/18/23 11:20 Pulse 88 07/18/23 11:59 Resp 20 07/18/23 11:59 BP 157/64 H 07/18/23 11:20 Pulse Ox 96 07/18/23 11:20 O2 Del Method Oxymask 07/18/23 11:20 O2 Flow Rate 3 07/18/23 11:20 BMI result Body Mass Index 39.1 Const: Other: Constitutional-cooperative, comfortable, in no acute distress, alert and oriented to person, place, time HEENT-nasal packing noted right nostril Pulmonary-diminished breath sounds, no accessory muscle use, no respiratory distress GI abdomen is soft, nontender, nondistended Musculoskeletal patient is able to move all 4 extremities spontaneously trace bilateral lower extremity edema Neuro-cranial nerves 2-12 are grossly intact no focal neurological appreciated Objective Data Active Medications Acetaminophen (Acetaminophen 325 Mg Tablet) 650 mg PO Q6H PRN PRN Reason: Fever >100.4 Albuterol Sulfate (Albuterol Sulfate (0.083%) 2.5 Mg/3 Ml Vial.Neb) 2.5 mg INHALE Q6H PRN PRN Reason: wheezing Albuterol/Ipratropium (Albuterol/Iprat 2.5/0.5mg 3 Ml Ampul.Neb) 3 ml INHALE RQ4H WHILE AWAKE [facility] Last Admin: 07/18/23 11:59 Dose: 3 ml Documented By: CHINA Albuterol/Ipratropium (Albuterol/Iprat 2.5/0.5mg 3 Ml Ampul.Neb) 3 ml INHALE Q4H PRN PRN Reason: Wheezing Amoxicillin/Clavulanate Potassium (Amoxicillin/Potassium Clav 875 Mg Tablet) 875 mg PO Q12H [facility] Apixaban (Apixaban 5 Mg Tablet) 5 mg PO BID [facility] Last Admin: 07/17/23 21:03 Dose: 5 mg Documented By: JIM Aspirin (Aspirin Enteric Coated 81 Mg Tablet.) 81 mg PO DAILY [facility] Last Admin: 07/17/23 08:27 Dose: 81 mg Documented By: TRISTAN Atorvastatin Calcium (Atorvastatin Calcium 80 Mg Tablet) 80 mg PO BEDTIME [facility] Last Admin: 07/17/23 21:03 Dose: 80 mg Documented By: JIM Cyanocobalamin (Cyanocobalamin (Vitamin B-12) 1,000 Mcg/Ml Vial) 1,000 mcg IM Q28D [facility] Last Admin: 07/17/23 08:35 Dose: 1,000 mcg Documented By: TRISTAN Dexamethasone Sodium Phosphate (Dexamethasone Sod Phosphate 4 Mg/Ml Vial) 6 mg IVPUSH DAILY [facility] Last Admin: 07/18/23 08:22 Dose: 6 mg Documented By: ODETTE Diltiazem HCl (Diltiazem Hcl Cd 120 Mg Cap.Er.Deg) 120 mg PO DAILY [facility]; Protocol Last Admin: 07/18/23 08:25 Dose: 120 mg Documented By: ODETTE Duloxetine HCl (Duloxetine Hcl 30 Mg Capsule.) 30 mg PO DAILY [facility] Last Admin: 07/18/23 08:24 Dose: 30 mg Documented By: ODETTE Ezetimibe (Ezetimibe 10 Mg Tablet) 10 mg PO DAILY [facility] Last Admin: 07/18/23 08:24 Dose: 10 mg Documented By: ODETTE Glucose (Glucose Gel 15 Gm Gel..Gram.) 15 gm PO Q15M PRN; Protocol PRN Reason: per Hypoglycemia Standing Ord. Dextrose (D10) 250 mls @ 750 mls/hr IV Q15M PRN; Protocol PRN Reason: per Hypoglycemia Standing Ord. Insulin Human Lispro (Insulin Lispro 100 Unit/Ml 3 Ml Vial) 0 unit SUBCUT QIDACHS [facility]; Protocol Last Admin: 07/18/23 13:04 Dose: 2 unit Documented By: ODETTE Levothyroxine Sodium (Levothyroxine Sodium 100 Mcg Tablet) 100 mcg PO DAILY@0600 [facility] Last Admin: 07/18/23 06:18 Dose: 100 mcg Documented By: TIM Melatonin (Melatonin 3 Mg Tablet) 6 mg PO BEDTIME PRN PRN Reason: Insomnia Last Admin: 07/17/23 21:13 Dose: 6 mg Documented By: JIM Metoprolol Succinate (Metoprolol Succinate Er 50 Mg Tab.Er.24h) 50 mg PO DAILY [facility]; Protocol Last Admin: 07/18/23 08:24 Dose: 50 mg Documented By: ODETTE Ondansetron HCl (Ondansetron Hcl 4 Mg/2 Ml Vial) 4 mg IVPUSH Q6H PRN PRN Reason: Nausea and Vomiting Sodium Chloride (0.9 % Sodium Chloride Flush 3 Ml Syringe) 3 ml IVFLUSH QSHIFT [facility] Last Admin: 07/18/23 08:25 Dose: 3 ml Documented By: ODETTE Thiamine HCl (Thiamine Hcl 100 Mg Tablet) 100 mg PO DAILY [facility] Last Admin: 07/18/23 08:24 Dose: 100 mg Documented By: ODETTE Tramadol HCl (Tramadol Hcl 50 Mg Tablet) 50 mg PO Q6H PRN PRN Reason: Pain, Moderate(Pain Scale 4-6) Last Admin: 07/17/23 21:13 Dose: 50 mg Documented By: JIM Vitamin D (Cholecalciferol (Vitamin D3) 25 Mcg Tablet) 25 mcg PO DAILY [facility] Last Admin: 07/18/23 08:24 Dose: 25 mcg Documented By: ODETTE Labs 07/18/23 04:50 07/18/23 04:50 Labs: Laboratory Results - last 24 hr 07/17/23 07/17/23 07/18/23 16:43 20:28 04:50 MCV 83.7 MCH 27.3 MCHC 32.6 RDW 15.4 Plt Count 367 MPV 8.9 L Absolute Nucleated RBC 0.000 Nucleated RBC % (auto) 0.0 PT 16.1 H D INR 1.3 H Anion Gap 14 Estim Creat Clear Calc 53.0 Estimated GFR > 60 POC Glucose 153 H 152 H Random Glucose 129 H Calcium 9.4 07/18/23 07/18/23 07:39 11:21 MCV MCH MCHC RDW Plt Count MPV Absolute Nucleated RBC Nucleated RBC % (auto) PT INR Anion Gap Estim Creat Clear Calc Estimated GFR POC Glucose 118 H 195 H Random Glucose Calcium Assessment and Plan (1) Acute and chronic respiratory failure with hypoxia: Status: Acute (2) COVID-19: Status: Acute (3) Epistaxis: Status: Acute Plan This is a 82-year-old female with pertinent history of chronic hypoxemic respiratory failure secondary to COPD, AFib on Eliquis, [id number] diabetes mellitus, history of CRISTA noncompliant with CPAP, hypothyroidism, coronary artery disease, 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 Epistaxis Status post packing placement overnight Hold Eliquis, aspirin Start Augmentin for prophylaxis Will need packing removed after 48 hours; placed 04:30 07/17 E coli UTI Initially treated with IV cefuroxime, will change to Augmentin Acute respiratory distress on chronic hypoxemic respiratory failure due to COVID-19 infection leading to acute exacerbation of COPD. Resolved continue supplemental oxygen. Home oxygen 2 L at baseline. continued scheduled and p.r.n. DuoNebs. steroids total 10 days for COVID, we will transitioned to p.o. Continue home inhalers Atrial fibrillation On Eliquis - hold due to epistaxis On Cardizem and beta-becca Coronary artery disease continue high-intensity statin The aspirin for epistaxis as above Congestive heart failure with combined systolic and diastolic dysfunction On beta-becca and diuretics. No decompensation during admission. Not on LUCIANO-inhibitor or ARB [id number] diabetes mellitus Initiating Accu-Cheks with sliding scale insulin Hypothyroidism On Synthroid CRISTA Refused CPAP at bedtime Obesity Counseled regarding diet and exercise DVT prophylaxis: Eliquis on hold for now Attending Dr. Espinosa Full code DISPO Home with services when medically clear Continue hospital stay for treatment of COVID-19 with continuous shortness of breath cough, epistaxis Quality Stroke Does the patient have a stroke diagnosis?: No VTE Prior VTE?: No VTE Risk Level:: Medical - moderate - high VTE Device Contraindication: Treatment Not Indicated VTE Drug Contraindication: N/A - Med Ordered
[2023-07-18] MEDS: Amoxicillin/Potassium Clav 875 MG TABLET PO (14:51)
[2023-07-18] MEDS: traMADoL HCL 50 MG TABLET PO ×2 (14:51→20:59)
[2023-07-18 16:18] LABS: Glucose, Whole Blood 143 mg/dL (60-115)
[2023-07-18 20:29] LABS: Glucose, Whole Blood 173 mg/dL (60-115)
[2023-07-18] MEDS: Atorvastatin Calcium 80 MG TABLET PO (20:59)
[2023-07-19] VITALS (7 sets, daily range): BP systolic 124–202; BP diastolic 62–92; PULSE 53–81; RESP 18–20; TEMP 36.1–36.4; O2SAT 94–97
[2023-07-19] MEDS: Amoxicillin/Potassium Clav 875 MG TABLET PO ×2 (02:30→14:36)
[2023-07-19] MEDS: Levothyroxine Sodium 100 MCG TABLET PO (05:10)
[2023-07-19 06:26] LABS: Hematocrit 37.8 % (37.0-47.0); Mean Corpuscular HGB Conc 31.7 g/dl (31.0-35.0); Mean Corpuscular Hemoglobin 26.4 pg (27.0-33.0); Mean Corpuscular Volume 83.1 fL (80.0-98.0); Mean Platelet Volume 9.3 fL (9.4-12.3); Platelet Count 414 X10*3/uL (160-400); Red Blood Count 4.55 X10*6/uL (4.20-5.50); Red Cell Distribution Width 15.6 % (11.0-16.0); White Blood Count 11.9 X10*3/uL (4.8-10.8)
[2023-07-19 07:41] LABS: Glucose, Whole Blood 122 mg/dL (60-115)
[2023-07-19] MEDS: traMADoL HCL 50 MG TABLET PO (07:56)
[2023-07-19] MEDS: dilTIAZem HCL CD 120 MG CAP.ER.DEG PO (07:56)
[2023-07-19] MEDS: Thiamine HCL 100 MG TABLET PO (07:58)
[2023-07-19] MEDS: Cholecalciferol (Vitamin D3) 25 MCG TABLET PO (07:58)
[2023-07-19] MEDS: DULoxetine HCl 30 MG CAPSULE.DR PO (07:58)
[2023-07-19] MEDS: Metoprolol Succinate ER 50 MG TAB.ER.24H PO (07:58)
[2023-07-19] MEDS: Ezetimibe 10 MG TABLET PO (07:58)
[2023-07-19] MEDS: 0.9 % Sodium Chloride Flush 3 ML SYRINGE IVFLUSH (07:59)
[2023-07-19] MEDS: hydrALAZINE HCl 20 MG/ML VIAL 5 MG IVPUSH (10:19)
[2023-07-19] MEDS: oxyCODONE HCl Immed Release 5 MG TABLET PO (10:38)
[2023-07-19 11:46] LABS: Glucose, Whole Blood 140 mg/dL (60-115)
--- NOTE | 2023-07-19 14:48 | MHC.CM.PN ---
EMR reviewed and per MD rounds, pt is not medically cleared for discharge due to management of covid-19 infection symptoms, and epistaxis, anticipated discharge is tomorrow 07/19.
[2023-07-19] MEDS: Albuterol/Iprat 2.5/0.5MG 3 ML AMPUL.NEB INHALE (15:57)
--- NOTE | 2023-07-19 16:11 | HO.PM.IMPN ---
Subjective Subjective Date of Service: 07/19/23 Interval History: Seen and examined this morning Follow-up for COVID-19 Reporting some right hip pain, no shortness of breath No further epistaxis Review of Systems Review of Systems: Yes all other systems are reviewed and are negative Constitutional Constitutional: Denies chills and Denies fever(s) Cardiovascular Cardiovascular: Denies chest pain Gastrointestinal Gastrointestinal: Denies abdominal pain Physical Exam Vital Signs: Vital Signs: Last Vital Signs Temp 97.1 F 07/19/23 11:24 Pulse 70 07/19/23 15:58 Resp 18 07/19/23 15:58 BP 166/62 H 07/19/23 11:24 Pulse Ox 97 07/19/23 11:24 O2 Del Method Oxymask 07/19/23 11:24 O2 Flow Rate 3 07/19/23 11:24 BMI result Body Mass Index 39.1 Const: Other: Constitutional-cooperative, comfortable, in no acute distress, alert and oriented to person, place, time HEENT-nasal packing noted right nostril Pulmonary-diminished breath sounds, no accessory muscle use, no respiratory distress GI abdomen is soft, nontender, nondistended Musculoskeletal patient is able to move all 4 extremities spontaneously trace bilateral lower extremity edema Neuro-cranial nerves 2-12 are grossly intact no focal neurological appreciated Extrem: Other: Right hip/groin rash no bruising, erythema, open wounds Objective Data Active Medications Acetaminophen (Acetaminophen 325 Mg Tablet) 650 mg PO Q6H PRN PRN Reason: Fever >100.4 Albuterol Sulfate (Albuterol Sulfate (0.083%) 2.5 Mg/3 Ml Vial.Neb) 2.5 mg INHALE Q6H PRN PRN Reason: wheezing Albuterol/Ipratropium (Albuterol/Iprat 2.5/0.5mg 3 Ml Ampul.Neb) 3 ml INHALE RQ4H WHILE AWAKE [facility] Last Admin: 07/19/23 15:57 Dose: 3 ml Documented By: PAVEL Albuterol/Ipratropium (Albuterol/Iprat 2.5/0.5mg 3 Ml Ampul.Neb) 3 ml INHALE Q4H PRN PRN Reason: Wheezing Amoxicillin/Clavulanate Potassium (Amoxicillin/Potassium Clav 875 Mg Tablet) 875 mg PO Q12H [facility] Last Admin: 07/19/23 14:36 Dose: 875 mg Documented By: NOLAN Apixaban (Apixaban 5 Mg Tablet) 5 mg PO BID [facility] Last Admin: 07/17/23 21:03 Dose: 5 mg Documented By: JIM Aspirin (Aspirin Enteric Coated 81 Mg Tablet.) 81 mg PO DAILY [facility] Last Admin: 07/17/23 08:27 Dose: 81 mg Documented By: TRISTAN Atorvastatin Calcium (Atorvastatin Calcium 80 Mg Tablet) 80 mg PO BEDTIME [facility] Last Admin: 07/18/23 20:59 Dose: 80 mg Documented By: JIM Cyanocobalamin (Cyanocobalamin (Vitamin B-12) 1,000 Mcg/Ml Vial) 1,000 mcg IM Q28D [facility] Last Admin: 07/17/23 08:35 Dose: 1,000 mcg Documented By: TRISTAN Diltiazem HCl (Diltiazem Hcl Cd 120 Mg Cap.Er.Deg) 120 mg PO DAILY [facility]; Protocol Last Admin: 07/19/23 07:56 Dose: 120 mg Documented By: NOLAN Duloxetine HCl (Duloxetine Hcl 30 Mg Capsule.) 30 mg PO DAILY [facility] Last Admin: 07/19/23 07:58 Dose: 30 mg Documented By: NOLAN Ezetimibe (Ezetimibe 10 Mg Tablet) 10 mg PO DAILY [facility] Last Admin: 07/19/23 07:58 Dose: 10 mg Documented By: NOLAN Glucose (Glucose Gel 15 Gm Gel..Gram.) 15 gm PO Q15M PRN; Protocol PRN Reason: per Hypoglycemia Standing Ord. Dextrose (D10) 250 mls @ 750 mls/hr IV Q15M PRN; Protocol PRN Reason: per Hypoglycemia Standing Ord. Insulin Human Lispro (Insulin Lispro 100 Unit/Ml 3 Ml Vial) 0 unit SUBCUT QIDACHS [facility]; Protocol Last Admin: 07/19/23 11:51 Dose: Not Given Documented By: ISH Non-Admin Reason: No Insulin Coverage Levothyroxine Sodium (Levothyroxine Sodium 100 Mcg Tablet) 100 mcg PO DAILY@0600 [facility] Last Admin: 07/19/23 05:10 Dose: 100 mcg Documented By: JIM Melatonin (Melatonin 3 Mg Tablet) 6 mg PO BEDTIME PRN PRN Reason: Insomnia Last Admin: 07/17/23 21:13 Dose: 6 mg Documented By: JIM Metoprolol Succinate (Metoprolol Succinate Er 50 Mg Tab.Er.24h) 50 mg PO DAILY [facility]; Protocol Last Admin: 07/19/23 07:58 Dose: 50 mg Documented By: NOLAN Ondansetron HCl (Ondansetron Hcl 4 Mg/2 Ml Vial) 4 mg IVPUSH Q6H PRN PRN Reason: Nausea and Vomiting Sodium Chloride (0.9 % Sodium Chloride Flush 3 Ml Syringe) 3 ml IVFLUSH QSHIFT [facility] Last Admin: 07/19/23 07:59 Dose: 3 ml Documented By: NOLAN Thiamine HCl (Thiamine Hcl 100 Mg Tablet) 100 mg PO DAILY [facility] Last Admin: 07/19/23 07:58 Dose: 100 mg Documented By: NOLAN Tramadol HCl (Tramadol Hcl 50 Mg Tablet) 50 mg PO Q6H PRN PRN Reason: Pain, Moderate(Pain Scale 4-6) Last Admin: 07/19/23 07:56 Dose: 50 mg Documented By: NOLAN Vitamin D (Cholecalciferol (Vitamin D3) 25 Mcg Tablet) 25 mcg PO DAILY [facility] Last Admin: 07/19/23 07:58 Dose: 25 mcg Documented By: NOLAN Labs 07/19/23 05:50 07/18/23 04:50 Labs: Laboratory Results - last 24 hr 07/18/23 07/18/23 07/19/23 16:13 20:24 05:50 MCV 83.1 MCH 26.4 L MCHC 31.7 RDW 15.6 Plt Count 414 H MPV 9.3 L Absolute Nucleated RBC 0.000 Nucleated RBC % (auto) 0.0 POC Glucose 143 H 173 H 07/19/23 07/19/23 07:26 11:27 MCV MCH MCHC RDW Plt Count MPV Absolute Nucleated RBC Nucleated RBC % (auto) POC Glucose 122 H 140 H Microbiology Microbiology Results: Microbiology 07/14/23 00:43 Blood Culture - Final Blood - Venous No growth after 5 days. 07/14/23 00:44 Blood Culture - Final Blood - Venous No growth after 5 days. 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 Epistaxis Status post packing placement Hold Eliquis, aspirin Continue Augmentin for prophylaxis Will need packing removed after 48 hours; placed 04:30 07/17 E coli UTI Initially treated with IV cefuroxime, will change to Augmentin Acute respiratory distress on chronic hypoxemic respiratory failure due to COVID-19 infection leading to acute exacerbation of COPD. Resolved continue supplemental oxygen. Home oxygen 2 L at baseline. continued scheduled and p.r.n. DuoNebs. s/p 6 days of steroids Continue home inhalers Hypertension Blood pressure uncontrolled Question due to hip pain IV hydralazine Follow up blood pressure closely, if remains elevated will consider adding 5 mg of lisinopril Right hip pain Patient states she intermittently has had right hip/groin pain since she had hip fracture and repair She denies any trauma to the area Will obtain right hip and pelvis x-ray Symptomatic treatment Atrial fibrillation On Eliquis - hold due to epistaxis On Cardizem and beta-becca Coronary artery disease continue high-intensity statin The aspirin for epistaxis as above Congestive heart failure with combined systolic and diastolic dysfunction On beta-becca and diuretics. No decompensation during admission. Not on LUCIANO-inhibitor or ARB [id number] diabetes mellitus Initiating Accu-Cheks with sliding scale insulin Hypothyroidism On Synthroid CRISTA Refused CPAP at bedtime Obesity Counseled regarding diet and exercise DVT prophylaxis: Eliquis on hold for now Attending Dr. Espinosa Full code DISPO Home with services when medically clear - likely in am Continue hospital stay for treatment of COVID-19 with continuous shortness of breath cough, epistaxis Quality Stroke Does the patient have a stroke diagnosis?: No VTE Prior VTE?: No VTE Risk Level:: Medical - moderate - high VTE Device Contraindication: Treatment Not Indicated VTE Drug Contraindication: N/A - Med Ordered
[2023-07-19 16:25] LABS: Glucose, Whole Blood 97 mg/dL (60-115)
[2023-07-19 20:57] LABS: Glucose, Whole Blood 109 mg/dL (60-115)
[2023-07-19] MEDS: Atorvastatin Calcium 80 MG TABLET PO (23:26)
[2023-07-20] VITALS (11 sets, daily range): BP systolic 124–160; BP diastolic 54–78; PULSE 66–90; RESP 18–22; TEMP 36.1–36.6; O2SAT 94–98
[2023-07-20] MEDS: 0.9 % Sodium Chloride Flush 3 ML SYRINGE IVFLUSH ×4 (00:13→22:54)
[2023-07-20] MEDS: Amoxicillin/Potassium Clav 875 MG TABLET PO ×2 (04:08→14:32)
--- NOTE | 2023-07-20 05:17 | PM.EVENT ---
Event Note Date of Service: 07/20/23 Event Note: 4:25 AM - Right nostril nasal packing removed. No new bleeding noted. Continue to hold epixaban and aspirin until evaluation by ENT as an outpatient. We will provide supplemental oxygen via nasal cannula again with humidification. Time Spent With Patient Time: Total time managing care of this patient today ____ minutes.
[2023-07-20] MEDS: Levothyroxine Sodium 100 MCG TABLET PO (06:30)
[2023-07-20 07:00] LABS: Glucose, Whole Blood 79 mg/dL (60-115)
[2023-07-20] MEDS: Albuterol/Iprat 2.5/0.5MG 3 ML AMPUL.NEB INHALE ×4 (07:58→19:29)
[2023-07-20] MEDS: Cholecalciferol (Vitamin D3) 25 MCG TABLET PO (08:21)
[2023-07-20] MEDS: Ezetimibe 10 MG TABLET PO (08:21)
[2023-07-20] MEDS: Metoprolol Succinate ER 50 MG TAB.ER.24H PO (08:21)
[2023-07-20] MEDS: dilTIAZem HCL CD 120 MG CAP.ER.DEG PO (08:21)
[2023-07-20] MEDS: DULoxetine HCl 30 MG CAPSULE.DR PO (08:22)
[2023-07-20] MEDS: Thiamine HCL 100 MG TABLET PO (08:22)
[2023-07-20] MEDS: predniSONE 20 MG TABLET 40 MG PO (10:09)
[2023-07-20] MEDS: guaiFENesin LA 600 MG TAB.ER.12H PO ×2 (10:09→22:54)
[2023-07-20 10:40] LABS: Glucose, Whole Blood 131 mg/dL (60-115)
--- NOTE | 2023-07-20 13:02 | HO.PM.IMPN ---
Subjective Subjective Date of Service: 07/20/23 Interval History: Seen and examined this morning Follow-up for COVID-19 Reporting right anterior thigh pain, cough Nasal packing removed without incident Review of Systems Review of Systems: Yes all other systems are reviewed and are negative Constitutional Constitutional: Denies chills and Denies fever(s) Physical Exam Vital Signs: Vital Signs: Last Vital Signs Temp 96.9 F 07/20/23 11:15 Pulse 66 07/20/23 11:16 Resp 18 07/20/23 11:16 BP 144/54 H 07/20/23 11:15 Pulse Ox 97 07/20/23 11:15 O2 Del Method Nasal Cannula 07/20/23 11:15 O2 Flow Rate 2 07/20/23 11:15 BMI result Body Mass Index 39.1 Const: Other: Constitutional-cooperative, comfortable, in no acute distress, alert and oriented to person, place, time HEENT-nasal packing noted right nostril Pulmonary-diminished breath sounds, no accessory muscle use, no respiratory distress GI abdomen is soft, nontender, nondistended Musculoskeletal patient is able to move all 4 extremities spontaneously trace bilateral lower extremity edema Neuro-cranial nerves 2-12 are grossly intact no focal neurological appreciated Extrem: Other: Right hip/groin rash no bruising, erythema, open wounds Objective Data Active Medications Acetaminophen (Acetaminophen 325 Mg Tablet) 650 mg PO Q6H PRN PRN Reason: Fever >100.4 Albuterol Sulfate (Albuterol Sulfate (0.083%) 2.5 Mg/3 Ml Vial.Neb) 2.5 mg INHALE Q6H PRN PRN Reason: wheezing Albuterol/Ipratropium (Albuterol/Iprat 2.5/0.5mg 3 Ml Ampul.Neb) 3 ml INHALE RQ4H WHILE AWAKE [facility] Last Admin: 07/20/23 11:16 Dose: 3 ml Documented By: FLORENTINO Albuterol/Ipratropium (Albuterol/Iprat 2.5/0.5mg 3 Ml Ampul.Neb) 3 ml INHALE Q4H PRN PRN Reason: Wheezing Amoxicillin/Clavulanate Potassium (Amoxicillin/Potassium Clav 875 Mg Tablet) 875 mg PO Q12H [facility] Last Admin: 07/20/23 04:08 Dose: 875 mg Documented By: VIV Apixaban (Apixaban 5 Mg Tablet) 5 mg PO BID [facility] Last Admin: 07/17/23 21:03 Dose: 5 mg Documented By: JIM Aspirin (Aspirin Enteric Coated 81 Mg Tablet.) 81 mg PO DAILY [facility] Last Admin: 07/17/23 08:27 Dose: 81 mg Documented By: TRISTAN Atorvastatin Calcium (Atorvastatin Calcium 80 Mg Tablet) 80 mg PO BEDTIME [facility] Last Admin: 07/19/23 23:26 Dose: 80 mg Documented By: VIV Cyanocobalamin (Cyanocobalamin (Vitamin B-12) 1,000 Mcg/Ml Vial) 1,000 mcg IM Q28D [facility] Last Admin: 07/17/23 08:35 Dose: 1,000 mcg Documented By: TRISTAN Diltiazem HCl (Diltiazem Hcl Cd 120 Mg Cap.Er.Deg) 120 mg PO DAILY [facility]; Protocol Last Admin: 07/20/23 08:21 Dose: 120 mg Documented By: CHUY Duloxetine HCl (Duloxetine Hcl 30 Mg Capsule.) 30 mg PO DAILY [facility] Last Admin: 07/20/23 08:22 Dose: 30 mg Documented By: CHUY Ezetimibe (Ezetimibe 10 Mg Tablet) 10 mg PO DAILY [facility] Last Admin: 07/20/23 08:21 Dose: 10 mg Documented By: CHUY Glucose (Glucose Gel 15 Gm Gel..Gram.) 15 gm PO Q15M PRN; Protocol PRN Reason: per Hypoglycemia Standing Ord. Guaifenesin (Guaifenesin La 600 Mg Tab.Er.12h) 600 mg PO BID [facility] Last Admin: 07/20/23 10:09 Dose: 600 mg Documented By: CHUY Dextrose (D10) 250 mls @ 750 mls/hr IV Q15M PRN; Protocol PRN Reason: per Hypoglycemia Standing Ord. Insulin Human Lispro (Insulin Lispro 100 Unit/Ml 3 Ml Vial) 0 unit SUBCUT QIDACHS [facility]; Protocol Last Admin: 07/20/23 11:40 Dose: Not Given Documented By: CHUY Non-Admin Reason: No Insulin Coverage Levothyroxine Sodium (Levothyroxine Sodium 100 Mcg Tablet) 100 mcg PO DAILY@0600 [facility] Last Admin: 07/20/23 06:30 Dose: 100 mcg Documented By: JIM Melatonin (Melatonin 3 Mg Tablet) 6 mg PO BEDTIME PRN PRN Reason: Insomnia Last Admin: 07/17/23 21:13 Dose: 6 mg Documented By: JIM Metoprolol Succinate (Metoprolol Succinate Er 50 Mg Tab.Er.24h) 50 mg PO DAILY [facility]; Protocol Last Admin: 07/20/23 08:21 Dose: 50 mg Documented By: CHUY Ondansetron HCl (Ondansetron Hcl 4 Mg/2 Ml Vial) 4 mg IVPUSH Q6H PRN PRN Reason: Nausea and Vomiting Oxycodone HCl (Oxycodone Hcl Immed Release 5 Mg Tablet) 5 mg PO Q6H PRN PRN Reason: Pain, Moderate(Pain Scale 4-6) Prednisone (Prednisone 20 Mg Tablet) 40 mg PO DAILY [facility] Last Admin: 07/20/23 10:09 Dose: 40 mg Documented By: CHUY Sodium Chloride (0.9 % Sodium Chloride Flush 3 Ml Syringe) 3 ml IVFLUSH QSHIFT [facility] Last Admin: 07/20/23 08:22 Dose: 3 ml Documented By: CHUY Thiamine HCl (Thiamine Hcl 100 Mg Tablet) 100 mg PO DAILY [facility] Last Admin: 07/20/23 08:22 Dose: 100 mg Documented By: CHUY Tramadol HCl (Tramadol Hcl 50 Mg Tablet) 50 mg PO Q6H PRN PRN Reason: Pain, Moderate(Pain Scale 4-6) Last Admin: 07/19/23 07:56 Dose: 50 mg Documented By: NOLAN Vitamin D (Cholecalciferol (Vitamin D3) 25 Mcg Tablet) 25 mcg PO DAILY [facility] Last Admin: 07/20/23 08:21 Dose: 25 mcg Documented By: CHUY Labs 07/19/23 05:50 07/18/23 04:50 Labs: Laboratory Results - last 24 hr 07/19/23 07/19/23 07/20/23 16:17 20:48 06:50 POC Glucose 97 109 79 07/20/23 10:32 POC Glucose 131 H Assessment and Plan (1) Epistaxis: Status: Acute Plan This is a 82-year-old female with pertinent history of chronic hypoxemic respiratory failure secondary to COPD, AFib on Eliquis, [id number] diabetes mellitus, history of CRISTA noncompliant with CPAP, hypothyroidism, coronary artery disease, 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 Epistaxis Status post packing placement Hold Eliquis, aspirin Continue Augmentin for prophylaxis Packing removed 07/19 E coli UTI Initially treated with IV ceftriaxone, changed to Augmentin 07/17 Acute respiratory distress on chronic hypoxemic respiratory failure due to COVID-19 infection leading to acute exacerbation of COPD. continue supplemental oxygen. Home oxygen 2 L at baseline. continued scheduled and p.r.n. DuoNebs. s/p 6 days of Decadron, steroids stopped but still with some expiratory wheezing, will resume p.o. prednisone Continue home inhalers Hypertension Blood pressure under better control Continue metoprolol, diltiazem Follow up blood pressure closely, if remains elevated will consider adding 5 mg of lisinopril Right hip pain Patient states she intermittently has had right hip/groin pain since she had hip fracture and repair She denies any trauma to the area right hip and pelvis x-ray -negative for fracture or hardware malalignment Discussed with ortho, feels symptoms are likely muscular, recommends PT evaluation Symptomatic treatment Atrial fibrillation On Eliquis - hold due to epistaxis On Cardizem and beta-becca Coronary artery disease continue high-intensity statin The aspirin for epistaxis as above Congestive heart failure with combined systolic and diastolic dysfunction On beta-becca and diuretics. No decompensation during admission. Not on LUCIANO-inhibitor or ARB [id number] diabetes mellitus Initiating Accu-Cheks with sliding scale insulin Hypothyroidism On Synthroid CRISTA Refused CPAP at bedtime Obesity Counseled regarding diet and exercise DVT prophylaxis: Eliquis on hold for now Attending Dr. Espinosa Full code DISPO Home with services when medically clear, PT recommends rehab, patient declines to go to rehab Continue hospital stay for treatment of COVID-19 with continuous shortness of breath cough, epistaxis Quality Stroke Does the patient have a stroke diagnosis?: No VTE Prior VTE?: No VTE Risk Level:: Medical - moderate - high VTE Device Contraindication: Treatment Not Indicated VTE Drug Contraindication: N/A - Med Ordered
[2023-07-20 16:36] LABS: Glucose, Whole Blood 361 mg/dL (60-115)
[2023-07-20] MEDS: Insulin Lispro 100 UNIT/ML 3 ML VIAL SUBCUT ×2 (17:18→22:53)
[2023-07-20 20:17] LABS: Glucose, Whole Blood 244 mg/dL (60-115)
[2023-07-20] MEDS: Atorvastatin Calcium 80 MG TABLET PO (22:54)
[2023-07-21] VITALS (11 sets, daily range): BP systolic 131–179; BP diastolic 58–78; PULSE 65–96; RESP 18–20; TEMP 36–36.7; O2SAT 95–99
[2023-07-21] MEDS: Amoxicillin/Potassium Clav 875 MG TABLET PO ×2 (02:24→15:07)
[2023-07-21] MEDS: oxyCODONE HCl Immed Release 5 MG TABLET PO ×2 (02:24→15:07)
[2023-07-21] MEDS: ondansetron HCL 4 MG/2 ML VIAL IVPUSH ×2 (02:24→09:55)
[2023-07-21 03:40] LABS: MANUAL DIFF FLAG NO
[2023-07-21 03:41] LABS: Basophils Percent Auto 0.1 % (0-2); Eosinophils Percent Auto 0.1 % (0-4); Hemoglobin 12.4 g/dl (12.0-16.0); Imm Gran Abs Auto 0.29 X10*3/uL (0.00-0.03); Lymphocytes Absolute Auto 3.5 X10*3/uL (1.2-4.9); Lymphocytes Percent Auto 24.4 % (20-40); Mean Corpuscular HGB Conc 32.6 g/dl (31.0-35.0); Mean Corpuscular Hemoglobin 27.1 pg (27.0-33.0); Mean Corpuscular Volume 83.2 fL (80.0-98.0); Mean Platelet Volume 8.9 fL (9.4-12.3); Monocytes Percent Auto 7.3 % (2-11); Neutrophils Absolute Auto 9.4 x10*3/uL (2.0-8.3); Neutrophils Percent Auto 66.1 % (45-73); Platelet Count 389 X10*3/uL (160-400); Red Blood Count 4.57 X10*6/uL (4.20-5.50); White Blood Count 14.3 X10*3/uL (4.8-10.8)
[2023-07-21 03:45] LABS: Venous Blood Gas Refer to POC result
[2023-07-21 03:45] LABS: VBG Base Excess 5.3 mmol/L; VBG HCO3 30 mmol/L (22-26); VBG pCO2 46 mmHg; VBG pH 7.42 (7.32-7.43); VBG pO2 74 mmHg
[2023-07-21 04:03] LABS: Alanine Aminotransferase 14 U/L (0-31); Albumin Level 3.3 g/dL (3.5-5.0); Alkaline Phosphatase 115 U/L (39-117); Anion Gap 11 (12-20); Aspartate Amino Transferase 13 U/L (5-31); Bilirubin Total 0.5 mg/dL (0.0-1.0); Blood Urea Nitrogen 29 mg/dL (9-16); Calcium 9.2 mg/dL (8.4-10.2); Carbon Dioxide 28 mmol/L (22-29); Chloride 106 mmol/L (96-108); Creatinine Clr Calc Pharmacy 56.4; Estimated Glomerular Filt Rate > 60; Glucose Random 96 mg/dL (60-115); Potassium 4.4 mmol/L (3.3-5.1); Sodium 141 mmol/L (135-145); Total Protein 6.2 g/dL (6.5-8.0)
[2023-07-21] MEDS: Levothyroxine Sodium 100 MCG TABLET PO (05:09)
[2023-07-21 07:38] LABS: Glucose, Whole Blood 128 mg/dL (60-115)
[2023-07-21] MEDS: Albuterol/Iprat 2.5/0.5MG 3 ML AMPUL.NEB INHALE ×4 (08:03→19:48)
[2023-07-21] MEDS: Cholecalciferol (Vitamin D3) 25 MCG TABLET PO (09:52)
[2023-07-21] MEDS: Metoprolol Succinate ER 50 MG TAB.ER.24H PO (09:52)
[2023-07-21] MEDS: dilTIAZem HCL CD 120 MG CAP.ER.DEG PO (09:52)
[2023-07-21] MEDS: predniSONE 20 MG TABLET 40 MG PO (09:53)
[2023-07-21] MEDS: 0.9 % Sodium Chloride Flush 3 ML SYRINGE IVFLUSH ×2 (09:53→18:02)
[2023-07-21] MEDS: guaiFENesin LA 600 MG TAB.ER.12H PO ×2 (09:53→20:36)
[2023-07-21] MEDS: Thiamine HCL 100 MG TABLET PO (09:53)
[2023-07-21] MEDS: Ezetimibe 10 MG TABLET PO (09:53)
[2023-07-21] MEDS: DULoxetine HCl 30 MG CAPSULE.DR PO (09:53)
[2023-07-21] MEDS: traMADoL HCL 50 MG TABLET PO (09:55)
[2023-07-21 11:18] LABS: Glucose, Whole Blood 104 mg/dL (60-115)
--- NOTE | 2023-07-21 13:03 | HO.PM.IMPN ---
Subjective Subjective Date of Service: 07/21/23 Interval History: Seen and examined this morning Follow-up for respiratory failure, COVID-19 Still with some cough, had nausea overnight. Right hip pain intermittent, slightly better Review of Systems Review of Systems: Yes all other systems are reviewed and are negative Constitutional Constitutional: Denies fever(s) ENT Ears, Nose, Mouth, and Throat: Denies dizziness Cardiovascular Cardiovascular: Denies chest pain Neurologic Neurologic: Denies dizziness Physical Exam Vital Signs: Vital Signs: Last Vital Signs Temp 97.8 F 07/21/23 11:11 Pulse 68 07/21/23 11:20 Resp 18 07/21/23 11:20 BP 132/61 07/21/23 11:11 Pulse Ox 98 07/21/23 11:11 O2 Del Method Nasal Cannula 07/21/23 11:11 O2 Flow Rate 2 07/21/23 11:11 BMI result Body Mass Index 39.1 Const: Other: Constitutional-cooperative, comfortable, in no acute distress, alert and oriented to person, place, time HEENT-nasal packing noted right nostril Pulmonary-diminished breath sounds, scattered expiratory wheeze. no accessory muscle use, no respiratory distress GI abdomen is soft, nontender, nondistended Musculoskeletal patient is able to move all 4 extremities spontaneously trace bilateral lower extremity edema Neuro-cranial nerves 2-12 are grossly intact no focal neurological appreciated Extrem: Other: Right hip/groin rash no bruising, erythema, open wounds Objective Data Active Medications Acetaminophen (Acetaminophen 325 Mg Tablet) 650 mg PO Q6H PRN PRN Reason: Fever >100.4 Albuterol Sulfate (Albuterol Sulfate (0.083%) 2.5 Mg/3 Ml Vial.Neb) 2.5 mg INHALE Q2H PRN PRN Reason: Shortness of Breath/Wheezing Albuterol/Ipratropium (Albuterol/Iprat 2.5/0.5mg 3 Ml Ampul.Neb) 3 ml INHALE RQ4H WHILE AWAKE [facility] Last Admin: 07/21/23 11:19 Dose: 3 ml Documented By: FLORENTINO Amoxicillin/Clavulanate Potassium (Amoxicillin/Potassium Clav 875 Mg Tablet) 875 mg PO Q12H [facility] Last Admin: 07/21/23 02:24 Dose: 875 mg Documented By: VIV Apixaban (Apixaban 5 Mg Tablet) 5 mg PO BID [facility] Last Admin: 07/17/23 21:03 Dose: 5 mg Documented By: JIM Aspirin (Aspirin Enteric Coated 81 Mg Tablet.) 81 mg PO DAILY [facility] Last Admin: 07/17/23 08:27 Dose: 81 mg Documented By: TRISTAN Atorvastatin Calcium (Atorvastatin Calcium 80 Mg Tablet) 80 mg PO BEDTIME [facility] Last Admin: 07/20/23 22:54 Dose: 80 mg Documented By: VIV Cyanocobalamin (Cyanocobalamin (Vitamin B-12) 1,000 Mcg/Ml Vial) 1,000 mcg IM Q28D [facility] Last Admin: 07/17/23 08:35 Dose: 1,000 mcg Documented By: TRISTAN Diltiazem HCl (Diltiazem Hcl Cd 120 Mg Cap.Er.Deg) 120 mg PO DAILY [facility]; Protocol Last Admin: 07/21/23 09:52 Dose: 120 mg Documented By: MELINA Duloxetine HCl (Duloxetine Hcl 30 Mg Capsule.) 30 mg PO DAILY [facility] Last Admin: 07/21/23 09:53 Dose: 30 mg Documented By: MELINA Ezetimibe (Ezetimibe 10 Mg Tablet) 10 mg PO DAILY [facility] Last Admin: 07/21/23 09:53 Dose: 10 mg Documented By: MELINA Glucose (Glucose Gel 15 Gm Gel..Gram.) 15 gm PO Q15M PRN; Protocol PRN Reason: per Hypoglycemia Standing Ord. Guaifenesin (Guaifenesin La 600 Mg Tab.Er.12h) 600 mg PO BID [facility] Last Admin: 07/21/23 09:53 Dose: 600 mg Documented By: MELINA Dextrose (D10) 250 mls @ 750 mls/hr IV Q15M PRN; Protocol PRN Reason: per Hypoglycemia Standing Ord. Insulin Human Lispro (Insulin Lispro 100 Unit/Ml 3 Ml Vial) 0 unit SUBCUT QIDACHS [facility]; Protocol Last Admin: 07/21/23 11:18 Dose: Not Given Documented By: MELINA Non-Admin Reason: No Insulin Coverage Levothyroxine Sodium (Levothyroxine Sodium 100 Mcg Tablet) 100 mcg PO DAILY@0600 [facility] Last Admin: 07/21/23 05:09 Dose: 100 mcg Documented By: VIV Melatonin (Melatonin 3 Mg Tablet) 6 mg PO BEDTIME PRN PRN Reason: Insomnia Last Admin: 07/17/23 21:13 Dose: 6 mg Documented By: JIM Metoprolol Succinate (Metoprolol Succinate Er 50 Mg Tab.Er.24h) 50 mg PO DAILY [facility]; Protocol Last Admin: 07/21/23 09:52 Dose: 50 mg Documented By: MELINA Ondansetron HCl (Ondansetron Hcl 4 Mg/2 Ml Vial) 4 mg IVPUSH Q6H PRN PRN Reason: Nausea and Vomiting Last Admin: 07/21/23 09:55 Dose: 4 mg Documented By: MELINA Oxycodone HCl (Oxycodone Hcl Immed Release 5 Mg Tablet) 5 mg PO Q6H PRN PRN Reason: Pain, Moderate(Pain Scale 4-6) Last Admin: 07/21/23 02:24 Dose: 5 mg Documented By: VIV Prednisone (Prednisone 20 Mg Tablet) 40 mg PO DAILY [facility] Last Admin: 07/21/23 09:53 Dose: 40 mg Documented By: MELINA Sodium Chloride (0.9 % Sodium Chloride Flush 3 Ml Syringe) 3 ml [facility] Last Admin: 07/21/23 09:53 Dose: 3 ml Documented By: MELINA Thiamine HCl (Thiamine Hcl 100 Mg Tablet) 100 mg PO DAILY [facility] Last Admin: 07/21/23 09:53 Dose: 100 mg Documented By: MELINA Tramadol HCl (Tramadol Hcl 50 Mg Tablet) 50 mg PO Q6H PRN PRN Reason: Pain, Moderate(Pain Scale 4-6) Last Admin: 07/21/23 09:55 Dose: 50 mg Documented By: MELINA Vitamin D (Cholecalciferol (Vitamin D3) 25 Mcg Tablet) 25 mcg PO DAILY [facility] Last Admin: 07/21/23 09:52 Dose: 25 mcg Documented By: MELINA Labs 07/21/23 03:28 07/21/23 03:28 Labs: Laboratory Results - last 24 hr 07/20/23 07/20/23 07/21/23 16:25 20:13 03:28 MCV 83.2 MCH 27.1 MCHC 32.6 RDW 16.0 Plt Count 389 MPV 8.9 L Immature Gran % (Auto) 2.0 H Neut % (Auto) 66.1 Lymph % (Auto) 24.4 Mchenry % (Auto) 7.3 Eos % (Auto) 0.1 Baso % (Auto) 0.1 Lymph # (Auto) 3.5 Mchenry # (Auto) 1.0 Eos # (Auto) 0.0 Baso # (Auto) 0.0 Abs Immat Gran (auto) 0.29 H Absolute Neuts (auto) 9.4 H Absolute Nucleated RBC 0.000 Nucleated RBC % (auto) 0.0 VBG pH VBG pCO2 VBG pO2 VBG HCO3 VBG O2 Saturation VBG Base Excess Anion Gap 11 L Estim Creat Clear Calc 56.4 Estimated GFR > 60 POC Glucose 361 H* 244 H Random Glucose 96 Calcium 9.2 Total Bilirubin 0.5 AST 13 ALT 14 Alkaline Phosphatase 115 Total Protein 6.2 L Albumin 3.3 L 07/21/23 07/21/23 07/21/23 03:38 07:33 11:14 MCV MCH MCHC RDW Plt Count MPV Immature Gran % (Auto) Neut % (Auto) Lymph % (Auto) Mchenry % (Auto) Eos % (Auto) Baso % (Auto) Lymph # (Auto) Mchenry # (Auto) Eos # (Auto) Baso # (Auto) Abs Immat Gran (auto) Absolute Neuts (auto) Absolute Nucleated RBC Nucleated RBC % (auto) VBG pH 7.42 VBG pCO2 46 VBG pO2 74 VBG HCO3 30 H VBG O2 Saturation 94.0 VBG Base Excess 5.3 Anion Gap Estim Creat Clear Calc Estimated GFR POC Glucose 128 H 104 Random Glucose Calcium Total Bilirubin AST ALT Alkaline Phosphatase Total Protein Albumin Assessment and Plan (1) Epistaxis: Status: Acute (2) COPD exacerbation: Status: Acute (3) Acute and chronic respiratory failure with hypoxia: Status: Acute (4) COVID-19: Status: Acute Plan This is a 82-year-old female with pertinent history of chronic hypoxemic respiratory failure secondary to COPD, AFib on Eliquis, [id number] diabetes mellitus, history of CRISTA noncompliant with CPAP, hypothyroidism, coronary artery disease, 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 Epistaxis Status post packing placement and removal Hold Eliquis, aspirin no further bleeding since packing removed Continue Augmentin for prophylaxis Packing removed 07/19 E coli UTI Initially treated with IV ceftriaxone, changed to Augmentin 07/17; day 7 07/20 Acute respiratory distress on chronic hypoxemic respiratory failure due to COVID-19 infection leading to acute exacerbation of COPD. continue supplemental oxygen. Home oxygen 2 L at baseline. continued scheduled and p.r.n. DuoNebs. s/p 6 days of Decadron, steroids stopped but still with some expiratory wheezing, will resume p.o. prednisone Continue home inhalers Repeat chest x-ray 07/20 negative Hypertension Blood pressure under better control Continue metoprolol, diltiazem Follow up blood pressure closely, if remains elevated will consider adding 5 mg of lisinopril Right hip pain Patient states she intermittently has had right hip/groin pain since she had hip fracture and repair She denies any trauma to the area right hip and pelvis x-ray -negative for fracture or hardware malalignment Discussed with ortho, feels symptoms are likely muscular PT --> muscle irritation due to LLI/pelvic asymmetry with muscle compensation. Able to demonstrate weight-bearing and no signs of instability. rec short-term rehab/PT for strengthening Symptomatic treatment Atrial fibrillation On Eliquis - hold due to epistaxis On Cardizem and beta-becca Coronary artery disease continue high-intensity statin The aspirin for epistaxis as above Congestive heart failure with combined systolic and diastolic dysfunction On beta-becca and diuretics. No decompensation during admission. Not on LUCIANO-inhibitor or ARB Ycl-[id number]-estwzmokw diabetes mellitus Initiating Accu-Cheks with sliding scale insulin Hypothyroidism On Synthroid CRISTA Refused CPAP at bedtime Obesity Counseled regarding diet and exercise DVT prophylaxis: Eliquis on hold for now Full code DISPO Home with services when medically clear, PT recommends rehab, patient declines to go to rehab Continue hospital stay for treatment of COVID-19 with continuous shortness of breath cough, epistaxis Quality Stroke Does the patient have a stroke diagnosis?: No VTE Prior VTE?: No VTE Risk Level:: Medical - moderate - high VTE Device Contraindication: Treatment Not Indicated VTE Drug Contraindication: N/A - Med Ordered
[2023-07-21 16:34] LABS: Glucose, Whole Blood 244 mg/dL (60-115)
[2023-07-21] MEDS: Insulin Lispro 100 UNIT/ML 3 ML VIAL SUBCUT ×2 (18:01→20:36)
[2023-07-21] MEDS: Atorvastatin Calcium 80 MG TABLET PO (20:36)
[2023-07-21 20:48] LABS: Glucose, Whole Blood 154 mg/dL (60-115)
[2023-07-22] VITALS (13 sets, daily range): BP systolic 128–149; BP diastolic 60–72; PULSE 65–83; RESP 16–20; TEMP 36.1–37; O2SAT 94–97
[2023-07-22] MEDS: Amoxicillin/Potassium Clav 875 MG TABLET PO ×2 (00:19→13:24)
[2023-07-22] MEDS: 0.9 % Sodium Chloride Flush 3 ML SYRINGE IVFLUSH ×3 (00:19→17:05)
[2023-07-22] MEDS: ondansetron HCL 4 MG/2 ML VIAL IVPUSH ×2 (01:41→14:38)
[2023-07-22] MEDS: Levothyroxine Sodium 100 MCG TABLET PO (05:51)
[2023-07-22 08:02] LABS: Glucose, Whole Blood 91 mg/dL (60-115)
[2023-07-22] MEDS: Albuterol/Iprat 2.5/0.5MG 3 ML AMPUL.NEB INHALE ×3 (08:03→19:56)
[2023-07-22] MEDS: dilTIAZem HCL CD 120 MG CAP.ER.DEG PO (09:36)
[2023-07-22] MEDS: Ezetimibe 10 MG TABLET PO (09:37)
[2023-07-22] MEDS: Metoprolol Succinate ER 50 MG TAB.ER.24H PO (09:37)
[2023-07-22] MEDS: guaiFENesin LA 600 MG TAB.ER.12H PO ×2 (09:37→21:31)
[2023-07-22] MEDS: Cholecalciferol (Vitamin D3) 25 MCG TABLET PO (09:37)
[2023-07-22] MEDS: DULoxetine HCl 30 MG CAPSULE.DR PO (09:37)
[2023-07-22] MEDS: predniSONE 20 MG TABLET 40 MG PO (09:37)
[2023-07-22] MEDS: Thiamine HCL 100 MG TABLET PO (09:38)
--- NOTE | 2023-07-22 11:14 | MHC.CM.PN ---
Addendum entered by Betty Benson 07/22/23 16:24: MAURICIO JORGEKevin UNABLE TO RESUME SERVICES TODAY PT WILL DC TOMORROW MORNING AT 1000 HOURS VIA [facility] CM SPOKE TO MAGED AT [facility], THEY ARE AWARE OF PLAN AND WILL RESUME SERVICES TOMORROW [facility] TRANSPORT ALREADY BOOKED Original Note: PER MD ROUNDS, PT IS READY TO DC CM CALLED [facility] AND SPOKE TO JANELLE SHE INDICATED THEY USUALLY PROVIDE AFTERNOON AND EVENING CARE FOR THE PT THEY ARE WITH HER UNTIL 2300 HOURS ON WEE[address] AND 2100 HOURS ON WEEKENDS SHE IS CURRENTLY UNSURE IF ANYONE IS AVAILABLE TO START WITH PT THIS EVENING BUT WILL BE ABLE TO START TOMORROW AT THE LATEST JANELLE WILL CALL CM BACK SOON SHE CONFIRMS CM MET WITH PT WHO REPORTS SHE HAS A PRIVATE SHAPER HAND WHO ASSISTS HER FOR 3.5 HOURS DURING THE MORNING SHE SAYS THE SHAPER HAND WILL RESUME TOMORROW, SHE WILL CALL HER TODAY PT IS AWARE [facility] THIS EVENING OR TOMORROW MORNING IF THEY ARE NOT
[2023-07-22 12:16] LABS: Glucose, Whole Blood 107 mg/dL (60-115)
--- NOTE | 2023-07-22 14:11 | P.PNIM_ITS ---
Subjective Subjective Date of Service: 07/22/23 Interval History: Seen and examined this morning Follow-up for respiratory failure, COVID-19 Still with some cough, had nausea overnight. Right hip pain intermittent, slightly better Review of Systems Review of Systems: Yes all other systems are reviewed and are negative Constitutional Constitutional: Denies fever(s) ENT Ears, Nose, Mouth, and Throat: Denies dizziness Cardiovascular Cardiovascular: Denies chest pain Neurologic Neurologic: Denies dizziness Physical Exam 2 Vital Signs: Vital Signs: Last Vital Signs Temp 97.4 F 07/22/23 11:23 Pulse 65 07/22/23 11:26 Resp 18 07/22/23 11:26 BP 141/68 H 07/22/23 11:23 Pulse Ox 95 07/22/23 11:23 O2 Del Method Nasal Cannula 07/22/23 11:23 O2 Flow Rate 1 07/22/23 11:23 BMI result Body Mass Index 39.1 Appearing in no acute distress lung sounds are clear to auscultation heart regular rate rhythm, clear S1, S2 positive bowel sounds, abdomen is soft, nontender neuro patient is alert x3, no focal deficits Objective Data Active Medications Acetaminophen (Acetaminophen 325 Mg Tablet) 650 mg PO Q6H PRN PRN Reason: Fever >100.4 Albuterol Sulfate (Albuterol Sulfate (0.083%) 2.5 Mg/3 Ml Vial.Neb) 2.5 mg INHALE Q2H PRN PRN Reason: Shortness of Breath/Wheezing Albuterol/Ipratropium (Albuterol/Iprat 2.5/0.5mg 3 Ml Ampul.Neb) 3 ml INHALE RQ4H WHILE AWAKE [facility] Last Admin: 07/22/23 11:25 Dose: 3 ml Documented By: FLORENTINO Amoxicillin/Clavulanate Potassium (Amoxicillin/Potassium Clav 875 Mg Tablet) 875 mg PO Q12H [facility] Last Admin: 07/22/23 13:24 Dose: 875 mg Documented By: JUANA Apixaban (Apixaban 5 Mg Tablet) 5 mg PO BID [facility] Last Admin: 07/17/23 21:03 Dose: 5 mg Documented By: JIM Aspirin (Aspirin Enteric Coated 81 Mg Tablet.) 81 mg PO DAILY [facility] Last Admin: 07/17/23 08:27 Dose: 81 mg Documented By: TRISTAN Atorvastatin Calcium (Atorvastatin Calcium 80 Mg Tablet) 80 mg PO BEDTIME [facility] Last Admin: 07/21/23 20:36 Dose: 80 mg Documented By: MELINA Cyanocobalamin (Cyanocobalamin (Vitamin B-12) 1,000 Mcg/Ml Vial) 1,000 mcg IM Q28D [facility] Last Admin: 07/17/23 08:35 Dose: 1,000 mcg Documented By: TRISTAN Diltiazem HCl (Diltiazem Hcl Cd 120 Mg Cap.Er.Deg) 120 mg PO DAILY [facility]; Protocol Last Admin: 07/22/23 09:36 Dose: 120 mg Documented By: JUANA Duloxetine HCl (Duloxetine Hcl 30 Mg Capsule.Dr) 30 mg PO DAILY [facility] Last Admin: 07/22/23 09:37 Dose: 30 mg Documented By: JUANA Ezetimibe (Ezetimibe 10 Mg Tablet) 10 mg PO DAILY [facility] Last Admin: 07/22/23 09:37 Dose: 10 mg Documented By: JUANA Glucose (Glucose Gel 15 Gm Gel..Gram.) 15 gm PO Q15M PRN; Protocol PRN Reason: per Hypoglycemia Standing Ord. Guaifenesin (Guaifenesin La 600 Mg Tab.Er.12h) 600 mg PO BID [facility] Last Admin: 07/22/23 09:37 Dose: 600 mg Documented By: JUANA Dextrose (D10) 250 mls @ 750 mls/hr IV Q15M PRN; Protocol PRN Reason: per Hypoglycemia Standing Ord. Insulin Human Lispro (Insulin Lispro 100 Unit/Ml 3 Ml Vial) 0 unit SUBCUT QIDACHS [facility]; Protocol Last Admin: 07/22/23 12:38 Dose: Not Given Documented By: JUANA Non-Admin Reason: No Insulin Coverage Levothyroxine Sodium (Levothyroxine Sodium 100 Mcg Tablet) 100 mcg PO DAILY@0600 [facility] Last Admin: 07/22/23 05:51 Dose: 100 mcg Documented By: ANYA Melatonin (Melatonin 3 Mg Tablet) 6 mg PO BEDTIME PRN PRN Reason: Insomnia Last Admin: 07/17/23 21:13 Dose: 6 mg Documented By: JIM Metoprolol Succinate (Metoprolol Succinate Er 50 Mg Tab.Er.24h) 50 mg PO DAILY [facility]; Protocol Last Admin: 07/22/23 09:37 Dose: 50 mg Documented By: JUANA Ondansetron HCl (Ondansetron Hcl 4 Mg/2 Ml Vial) 4 mg IVPUSH Q6H PRN PRN Reason: Nausea and Vomiting Last Admin: 07/22/23 01:41 Dose: 4 mg Documented By: ANYA Oxycodone HCl (Oxycodone Hcl Immed Release 5 Mg Tablet) 5 mg PO Q6H PRN PRN Reason: Pain, Moderate(Pain Scale 4-6) Last Admin: 07/21/23 15:07 Dose: 5 mg Documented By: MELINA Prednisone (Prednisone 20 Mg Tablet) 40 mg PO DAILY [facility] Last Admin: 07/22/23 09:37 Dose: 40 mg Documented By: UJANA Sodium Chloride (0.9 % Sodium Chloride Flush 3 Ml Syringe) 3 ml IVFLUSH QSHIFT [facility] Last Admin: 07/22/23 09:37 Dose: 3 ml Documented By: JUANA Thiamine HCl (Thiamine Hcl 100 Mg Tablet) 100 mg PO DAILY [facility] Last Admin: 07/22/23 09:38 Dose: 100 mg Documented By: JUANA Tramadol HCl (Tramadol Hcl 50 Mg Tablet) 50 mg PO Q6H PRN PRN Reason: Pain, Moderate(Pain Scale 4-6) Last Admin: 07/21/23 09:55 Dose: 50 mg Documented By: MELINA Vitamin D (Cholecalciferol (Vitamin D3) 25 Mcg Tablet) 25 mcg PO DAILY [facility] Last Admin: 07/22/23 09:37 Dose: 25 mcg Documented By: JUANA Labs 07/21/23 03:28 07/21/23 03:28 Labs: Laboratory Results - last 24 hr 07/21/23 07/21/23 07/22/23 15:49 20:30 07:58 POC Glucose 244 H 154 H 91 07/22/23 12:11 POC Glucose 107 Assessment and Plan (1) Epistaxis: Status: Acute (2) COPD exacerbation: Status: Acute (3) Acute and chronic respiratory failure with hypoxia: Status: Acute (4) COVID-19: Status: Acute Plan This is a 82-year-old female with pertinent history of chronic hypoxemic respiratory failure secondary to COPD, AFib on Eliquis, bel-vwdyosn-vbbetlgfs diabetes mellitus, history of CRISTA noncompliant with CPAP, hypothyroidism, coronary artery disease, 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 Epistaxis Status post packing placement and removal Hold Eliquis, aspirin no further bleeding since packing removed Continue Augmentin for prophylaxis Packing removed 07/19 E coli UTI Initially treated with IV ceftriaxone, changed to Augmentin 07/17; day 7 07/20 Acute respiratory distress on chronic hypoxemic respiratory failure due to COVID-19 infection leading to acute exacerbation of COPD. continue supplemental oxygen. Home oxygen 2 L at baseline. continued scheduled and p.r.n. DuoNebs. s/p 6 days of Decadron, steroids stopped but still with some expiratory wheezing, will resume p.o. prednisone Continue home inhalers Repeat chest x-ray 07/20 negative Hypertension Blood pressure under better control Continue metoprolol, diltiazem Follow up blood pressure closely, if remains elevated will consider adding 5 mg of lisinopril Right hip pain Patient states she intermittently has had right hip/groin pain since she had hip fracture and repair She denies any trauma to the area right hip and pelvis x-ray -negative for fracture or hardware malalignment Discussed with ortho, feels symptoms are likely muscular PT --> muscle irritation due to LLI/pelvic asymmetry with muscle compensation. Able to demonstrate weight-bearing and no signs of instability. rec short-term rehab/PT for strengthening Symptomatic treatment Atrial fibrillation On Eliquis - hold due to epistaxis On Cardizem and beta-becca Coronary artery disease continue high-intensity statin The aspirin for epistaxis as above Congestive heart failure with combined systolic and diastolic dysfunction On beta-becca and diuretics. No decompensation during admission. Not on LUCIANO-inhibitor or ARB Fij-apvfajh-cmwhqxzny diabetes mellitus Initiating Accu-Cheks with sliding scale insulin Hypothyroidism On Synthroid CRISTA Refused CPAP at bedtime Obesity Counseled regarding diet and exercise DVT prophylaxis: Eliquis on hold for now Full code DISPO Home with services when medically clear, PT recommends rehab, patient declines to go to rehab Continue hospital stay for treatment of COVID-19 with continuous shortness of breath cough, epistaxis Quality Stroke Does the patient have a stroke diagnosis?: No VTE Prior VTE?: No VTE Risk Level:: Medical - moderate - high VTE Device Contraindication: Treatment Not Indicated VTE Drug Contraindication: N/A - Med Ordered
[2023-07-22 16:44] LABS: Glucose, Whole Blood 162 mg/dL (60-115)
[2023-07-22] MEDS: Insulin Lispro 100 UNIT/ML 3 ML VIAL SUBCUT ×2 (17:05→21:31)
[2023-07-22 21:07] LABS: Glucose, Whole Blood 248 mg/dL (60-115)
[2023-07-22] MEDS: Atorvastatin Calcium 80 MG TABLET PO (21:31)
[2023-07-23] VITALS: BP 135/61; PULSE 67; RESP 18; TEMP 36.7; O2SAT 94
[2023-07-23] MEDS: Amoxicillin/Potassium Clav 875 MG TABLET PO (00:52)
[2023-07-23] MEDS: 0.9 % Sodium Chloride Flush 3 ML SYRINGE IVFLUSH ×2 (00:52→08:38)
[2023-07-23] MEDS: ondansetron HCL 4 MG/2 ML VIAL IVPUSH (02:30)
[2023-07-23 04:00] VITALS: BP 145/74; PULSE 67; RESP 16; TEMP 36.7; O2SAT 99
[2023-07-23] MEDS: Levothyroxine Sodium 100 MCG TABLET PO (06:35)
[2023-07-23 08:00] VITALS: BP 145/72; PULSE 64; RESP 20; TEMP 36.2; O2SAT 100
[2023-07-23] MEDS: Albuterol/Iprat 2.5/0.5MG 3 ML AMPUL.NEB INHALE (08:30)
[2023-07-23 08:31] VITALS: PULSE 71; RESP 16; O2SAT 99
--- NOTE | 2023-07-23 08:35 | MHC.CM.PN ---
IMM 07/23/23 She is discharged today to home. [facility] will resume services today. Confirmation of resumption of services obtained from [facility]. [facility] will provide transport home. 10am pick time has been confirmed. The RN is aware of the scheduled pick time.
[2023-07-23 08:36] LABS: Glucose, Whole Blood 106 mg/dL (60-115)
[2023-07-23 08:37] VITALS: BP 145/74; PULSE 71
[2023-07-23] MEDS: Cholecalciferol (Vitamin D3) 25 MCG TABLET PO (08:37)
[2023-07-23] MEDS: guaiFENesin LA 600 MG TAB.ER.12H PO (08:37)
[2023-07-23] MEDS: Metoprolol Succinate ER 50 MG TAB.ER.24H PO (08:37)
[2023-07-23] MEDS: Thiamine HCL 100 MG TABLET PO (08:37)
[2023-07-23 08:38] VITALS: BP 145/74; PULSE 71
[2023-07-23] MEDS: predniSONE 20 MG TABLET 40 MG PO (08:38)
[2023-07-23] MEDS: DULoxetine HCl 30 MG CAPSULE.DR PO (08:38)
[2023-07-23] MEDS: dilTIAZem HCL CD 120 MG CAP.ER.DEG PO (08:38)
[2023-07-23] MEDS: Ezetimibe 10 MG TABLET PO (08:38)
--- NOTE | 2023-07-23 08:44 | PM.DS ---
DS: Providers Provider Date of Service: 07/23/23 Date of admission: 07/14/23 08:54 Primary care physician: Chantal Lay MD Consults: 07/15/23 00:56 Consult to Wound Care Routine Reason for consultation: maceration to inner thighs DS: Diagnosis Discharge Diagnosis (1) Epistaxis: Status: Acute (2) COPD exacerbation: Status: Acute (3) Acute and chronic respiratory failure with hypoxia: Status: Acute (4) COVID-19: Status: Acute DS: Summary Hospital Course Hospital Course: History and physical as per admitting provider. 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 Patient states her symptoms started 1 day prior to presentation. She has been having dyspnea which is constant, without any relieving factors. Patient took home COVID test which was positive. No sick contacts. Also has associated wheezing and nonproductive cough. Denies fever, chills, nausea, vomiting, chest pain, abdominal pain, changes in urinary bowel habits. In the emergency department, patient with wheezing despite multiple DuoNeb treatments. Tested positive for COVID-19. 83-year-old woman initially treated for acute respiratory distress on chronic hypoxemic respiratory failure secondary to COVID-19. She was also treated for acute COPD exacerbation. She was initially started on IV Decadron and completed 6 days, steroids have been stopped but patient continued with expiratory wheezing and prednisone 40 mg was resumed. She was also treated with scheduled DuoNebs and had a repeat x-ray on 07/21/2023 which was negative for consolidation or effusion. Patient is on 2 L of baseline oxygen and will continue that on discharge. Patient has been under quarantine for 9 total days and at this time is clear. She developed an episode of epistaxis and had packing placed, her Eliquis and aspirin were held. She was started on prophylactic Augmentin and packing was removed on 07/20/2023. She was also treated for and E coli urinary tract infection with IV ceftriaxone for total of 7 days of antibiotics. At this time patient is stable for discharge, has home services that were resumed by the upper caser. Plan is to discharge patient home via ambulance. Patient is in agreement with this. Hypertension. Blood pressure under good control. Continue metoprolol, diltiazem Patient did experience some right hip pain intermittently she had a x-ray which was negative for fracture or hardware malalignment. She was seen by Physical therapy who recommended short-term rehab the patient refused because she has services at home. Atrial fibrillation. On Eliquis, Cardizem beta-becca Coronary artery disease. Continue aspirin and statin Congestive heart failure with combined systolic and diastolic dysfunction. Continue beta-becca diuretics Diabetes mellitus. Continue medications Hypothyroidism. Continue Synthroid CRISTA. Refused CPAP at bedtime Obesity. BMI 39.1. Discussed importance of weight management as this may be contributing to worsening of other comorbidities Time Attestation Discharge Coordination Time (in mins): 40 Quality: Safe Use of Opioids Does Pt have an Active Cancer Diagnosis on the Problem List?: No Quality: Stroke Does the patient have a stroke diagnosis?: No Physical Exam Vital Signs: Vital Signs: Last Vital Signs Temp 98.0 F 07/23/23 04:00 Pulse 71 07/23/23 08:38 Resp 16 07/23/23 08:31 BP 145/74 H 07/23/23 08:38 Pulse Ox 99 07/23/23 04:00 O2 Del Method Nasal Cannula 07/23/23 04:00 O2 Flow Rate 2 07/23/23 04:00 BMI result Body Mass Index 39.1 Appearing in no acute distress head is normocephalic atraumatic eyes pupils are PERRLA sclera is anicteric mouth throat mucous membranes are intact and moist neck is supple no lymphadenopathy, no JVD noted lung sounds are clear to auscultation heart regular rate rhythm, clear S1, S2 positive bowel sounds, abdomen is soft, nontender neuro patient is alert x3, no focal deficits DS: Data Data Completed and Pending Completed studies during hospitalization [Text1]: Procedures Reposition Right Upper Femur with Intramedullary Internal Fixation Device, Percutaneous Approach (02/08/23) Labs on day of discharge: Laboratory Results - last 24 hr 07/22/23 07/22/23 07/22/23 12:11 16:40 21:04 POC Glucose 107 162 H 248 H 07/23/23 08:33 POC Glucose 106 Discharge Plan Discharge Anticipated Discharge Date/Time: 07/23/23 07:33 Patient Disposition: Home Health Service Discharge Diagnosis: COVID-19 Acute respiratory distress on chronic hypoxemic respiratory failure COPD exacerbation Epistaxis Referrals: [facility] [Outside] - 1 Week Discharge Medications: New prednisone 10 mg tablet See Taper PO DIRECTED Qty: 30 0RF Taper: Prednisone 40 mg daily for 3 Days and 0 Hour 30 mg daily for 3 Days and 0 Hour 20 mg daily for 3 Days and 0 Hour 10 mg daily for 3 Days and 0 Hour Rx Instructions: see taper instructions Continued (DME) stair lift and ramp See Rx Instructions .Route .MEDSUPPLY Qty: 1 0RF Rx Instructions: As directed (DME) blood-glucose meter [OneTouch Ultra2 Meter] Kit See Rx Instructions .Route Qty: 1 0RF Rx Instructions: As directed (DME) blood-glucose meter [OneTouch UltraMini] Kit See Rx Instructions .Route Qty: 1 0RF Rx Instructions: As directed (DME) Wheelchair Ramp See Rx Instructions .Route .MEDSUPPLY Qty: 1 0RF Rx Instructions: As directed (DME) Transfer Bench Misc See Rx Instructions .Route Qty: 1 0RF Rx Instructions: As directed for bath tub (DME) blood pressure monitor [Blood Pressure Kit] Kit See Rx Instructions .Route Qty: 1 0RF Rx Instructions: As directed (DME) [facility] Bed diagnosis I50.32 See Rx Instructions .Route .MEDSUPPLY Qty: 1 0RF Rx Instructions: As directed, GERMAN 99 (DME) Nebulizer supplies See Rx Instructions .Route .MEDSUPPLY Qty: 3 3RF Rx Instructions: As directed (DME) Air mattress See Rx Instructions .Route .MEDSUPPLY Qty: 1 0RF Rx Instructions: As directed nitroglycerin 0.4 mg tablet, sublingual 0.4 mg sublingual Q5M PRN (Reason: for angina) 90 Days Qty: 25 0RF (DME) FOUR WHEEL SCOOTER See Rx Instructions .Route .MEDSUPPLY Qty: 1 0RF Rx Instructions: As directed ondansetron HCl 8 mg tablet 8 mg PO Q12H PRN (Reason: nausea and vomiting) Qty: 30 0RF (DME) pads for bedsores 7 7/8 X 11 3/4 pad See Rx Instructions .Route Qty: 50 11RF Rx Instructions: As directed thiamine HCl (vitamin B1) 100 mg tablet 100 mg PO DAILY Qty: 90 2RF fluticasone propion-salmeterol 500-50 mcg/dose blister with device 1 inh inhalation BID Qty: 60 11RF (DME) pressure release mattress See Rx Instructions .Route .MEDSUPPLY Qty: 1 0RF Rx Instructions: As directed ezetimibe 10 mg tablet 10 mg PO DAILY Qty: 90 3RF (DME) OneTouch Ultra Test Strip See Rx Instructions .ROUTE .COMPLEX Qty: 100 3RF Dose Instruction: DIRECTED TEST BLOOD GLUCOSE DAILY Rx Instructions: DIRECTED TEST BLOOD GLUCOSE DAILY cyanocobalamin (vitamin B-12) 1,000 mcg/mL solution 1,000 mcg IM Q4W 90 Days Qty: 4 11RF albuterol sulfate 90 mcg/actuation HFA aerosol inhaler 2 puff PO Q4H PRN (Reason: for respiratory distress) Qty: 8.5 5RF (DME) lancets Misc See Rx Instructions .Route Qty: 100 3RF Rx Instructions: As directed test blood glucose daily Eliquis 5 mg tablet 5 mg PO BID 90 Days Qty: 180 3RF ascorbic acid (vitamin C) 500 mg tablet 500 mg PO BID Qty: 180 3RF metoprolol succinate 50 mg tablet extended release 24 hr 50 mg PO DAILY Qty: 30 2RF (DME) lancets [OneTouch Delica Plus Lancet] 33 gauge misc See Rx Instructions .ROUTE .COMPLEX Qty: 100 0RF Dose Instruction: USE TO TEST DAILY Rx Instructions: USE TO TEST DAILY cholecalciferol (vitamin D3) [Vitamin D3] 25 mcg (1,000 unit) Capsule 25 mcg PO DAILY dicyclomine 10 mg Capsule 10 mg PO Q6H PRN (Reason: Abdominal Pain) aspirin 81 mg Tablet,Delayed Release (Dr/Ec) 81 mg PO DAILY duloxetine 30 mg Capsule, Delayed Rel Sprinkle 30 mg PO DAILY furosemide 40 mg tablet 20 - 40 mg PO DAILY atorvastatin 80 mg tablet 80 mg PO BEDTIME meclizine 12.5 mg tablet 25 mg PO TID PRN (Reason: for motion sickness/dizziness) levothyroxine 100 mcg tablet 100 mcg PO DAILY@0600 Trulicity 3 mg/0.5 mL pen injector 3 mg subcut SA diltiazem HCl [Cardizem CD] 120 mg Capsule,Extended Release 24hr 120 mg PO DAILY Qty: 90 0RF Protocol: Hold for SBP/HR < HOLD for SBP < : 90 HOLD for HR < : 60 ipratropium-albuterol 0.5 mg-3 mg(2.5 mg base)/3 mL solution for nebulization 3 ml inhalation QID PRN (Reason: Shortness Of Breath Or Wheezing) ketoconazole 2 % shampoo 1 appl topical 2XW albuterol sulfate 2.5 mg /3 mL (0.083 %) solution for nebulization 2.5 mg inhalation Q6H PRN (Reason: wheezing) acetaminophen 650 mg Tablet Extended Release 650 mg PO Q8H PRN (Reason: Pain) clotrimazole 1 % cream 1 appl topical BID PRN (Reason: Rash) dexlansoprazole 30 mg capsule,biphase delayed releas 30 mg PO DAILY (DME) compress.stocking,knee,reg,lrg Misc See Rx Instructions .Route Qty: 12 0RF Rx Instructions: As directed 20-30 mm HG (DME) hospital bed See Rx Instructions .Route .MEDSUPPLY Qty: 1 0RF Rx Instructions: As directed tramadol 50 mg tablet 50 mg PO Q6H PRN (Reason: Pain) (DME) UNDERPADS Disposable BED See Rx Instructions .Route .MEDSUPPLY Qty: 3 11RF Rx Instructions: As directed Discharge Orders: Discharge Order (Routine); Ordered 07/23/23 Ordered By: Marlyn Shook Diet: Advance to usual diet Activity on Discharge: As tolerated Stand Alone Forms: Patient Portal Discharge page Print Language: Nicarag[place] Care Plan Goals: Complete prednisone taper Health Concerns: COVID-19 Acute respiratory distress on chronic hypoxemic respiratory failure COPD exacerbation Epistaxis Plan of Treatment: Follow-up with primary care provider as needed Take all medications as prescribed Assessment: Treated for COVID-19. Completed quarantine.
--- NOTE | 2023-07-30 16:45 | P.CDIM_ITS ---
PROVIDER RESPONSE TEXT: To clarify, the appropriate diagnosis supported by the clinical indicators: Viral sepsis was present on admission and is now resolved QUERY TEXT: PHYSICIAN'S DOCUMENTATION REQUEST Date of Query: 07/30/2023 07:31 AM EDT Patient Name: Carly Unger Admit Date: 07/14/2023 Dear Marlyn Shook, A review of the medical record indicates additional documentation may be needed. Please review below and update the documentation accordingly. Clinical Indicators: Temperature 101.8 Pulse 107 Respiratory rate 22 WBC 7.9 LA 1.2 Per H&P Addendum 07/14/23: Viral sepsis due to COVID: Ordering lactic acid and blood cultures. Defer a ntibiotics. Resuscitated with crystalloids The diagnosis of Viral sepsis was documented but is not consistently noted in subsequent documentatio n/the Discharge Summary Please clarify the following: Viral sepsis was present on admission and is now resolved Viral sepsis was present on admission and is still being monitored, evaluated, or treated Viral sepsis was ruled out Viral sepsis is still a likely, suspected, probable diagnosis Other (explain) Clinically unable to determine (explain) Thank you, Ansley Winston RN Use of terms such as suspected, likely, concern for, or probable (associated with a specific diagnosi s that is being evaluated, monitored, or treated as if it exists) are acceptable and can be coded in the inpatient se tting, when documented at the time of discharge. Please use your independent medical judgment in providing your response. THIS QUERY IS PART OF THE PERMANENT MEDICAL RECORD
== END 2023-07-23 12:11 | disposition home health service (06) | DRG 178 ==
LOC: HO.ED 23:01 → HO.EDOVER 07-14 00:25 → HO.IMC 07-14 23:59
PROVIDERS: Internal Medicine; Physician Assistant Medical; Admitting Provider Student in an Organized Health Care Education/Training Program; Emergency Provider Internal Medicine; PCP Internal Medicine; Visit Provider Nurse Practitioner Acute Care
DX: U07.1 COVID-19 (principal); E87.4 Mixed disorder of acid-base balance; N39.0 Urinary tract infection, site not specified; I50.42 Chronic combined systolic (congestive) and diastolic (congestive) heart failure; J44.1 Chronic obstructive pulmonary disease with (acute) exacerbation; I25.10 Atherosclerotic heart disease of native coronary artery without angina pectoris; G47.33 Obstructive sleep apnea (adult) (pediatric); E03.9 Hypothyroidism, unspecified; I48.91 Unspecified atrial fibrillation; E11.9 Type 2 diabetes mellitus without complications; E66.9 Obesity, unspecified; I11.0 Hypertensive heart disease with heart failure; Z68.39 Body mass index [BMI] 39.0-39.9, adult; M25.551 Pain in right hip; G89.4 Chronic pain syndrome; B96.20 Unspecified Escherichia coli [E. coli] as the cause of diseases classified elsewhere; R04.0 Epistaxis; Z99.81 Dependence on supplemental oxygen; Z87.891 Personal history of nicotine dependence; Z91.199 Patient's noncompliance with other medical treatment and regimen due to unspecified reason; Z79.01 Long term (current) use of anticoagulants; Z79.82 Long term (current) use of aspirin; Z79.85 Long-term (current) use of injectable non-insulin antidiabetic drugs; Z79.890 Hormone replacement therapy; Z79.899 Other long term (current) drug therapy
CPT/HCPCS: 0241U; 36415; 71045; 73502; 80048; 80053; 81001; 82803; 82947; 83605; 83735; 83880; 84484; 85025; 85027; 85610; 87040; 87086; 87088; 87186; 93005; 94640; 97162; 99285; J0360; J0696; J1100; J2405; J3420; J3430

== ENCOUNTER → 2023-07-13 21:18 | Outpatient (BNV) | payer OTHER, SELFPAY | PROVIDERS: Emergency Provider Internal Medicine; Visit Provider Student in an Organized Health Care Education/Training Program | DX: R04.0 Epistaxis (principal) | CPT/HCPCS: 30901; 99222; 99232; 99239; 99499 ==

== ENCOUNTER → 2023-07-13 21:46 | Outpatient (BNV) | payer OTHER, SELFPAY | PROVIDERS: Admitting Provider Student in an Organized Health Care Education/Training Program; Emergency Provider Internal Medicine; Visit Provider Internal Medicine Cardiovascular Disease | DX: R94.31 Abnormal electrocardiogram [ECG] [EKG] (principal) | CPT/HCPCS: 93010 ==

== ENCOUNTER 2023-09-06 12:00 | Emergency (ER) | payer OTHER, SELFPAY ==
[2023-09-06] VITALS (8 sets, daily range): BP systolic 98–143; BP diastolic 37–58; PULSE 67–100; RESP 16–20; TEMP 36.1–36.6; O2SAT 88–95; BMI 41.0
--- NOTE | 2023-09-06 | ECG_ITS ---
Test Reason : dizziness Blood Pressure : / mmHG Vent. Rate : 070 BPM Atrial Rate : 070 BPM P-R Int : 232 ms QRS Dur : 088 ms QT Int : 408 ms P-R-T Axes : 023 076 123 degrees QTc Int : 440 ms Sinus rhythm with 1st degree A-V block Septal infarct , age undetermined T wave abnormality, consider lateral ischemia Abnormal ECG When compared with ECG of 13-JUL-2023 21:46, No significant change was found Referred By: Generic ED Physician Electronically Signed By:TATO PERDOMO MD
--- NOTE | ~2023-09-06 | XR_ITS ---
EXAMINATION: XR CHEST CLINICAL INFORMATION: Shortness of breath COMPARISON: Chest radiograph 07/21/2023. TECHNIQUE: Frontal view of the chest was obtained. FINDINGS: Unchanged probable retrocardiac atelectasis or scarring with leftward mediastinal shift and chronic blunting of the left costophrenic angle. Slightly low lung volumes with similar bibasilar reticular opacities, likely also atelectasis. No new, focal consolidation. No significant pleural effusion or pneumothorax. Cardiomediastinal silhouette is unchanged. Redemonstrated left shoulder arthroplasty hardware. XR/XR chest 1V IMPRESSION: 1. No acute cardiopulmonary abnormality. 2. Unchanged probable retrocardiac atelectasis or scarring with leftward mediastinal shift and chronic blunting of the left costophrenic angle.
--- NOTE | ~2023-09-06 | CT_ITS ---
EXAMINATION: CT ABDOMEN AND PELVIS WITH CONTRAST CLINICAL INFORMATION: Left-sided abdominal pain COMPARISON: CT from 11/01/2021 TECHNIQUE: Multidetector volumetric images were obtained from the superior aspect of the liver through the pubic symphysis following administration 85 mL of Omnipaque 350 intravenous contrast. Sagittal and coronal reformatted images were obtained on the technologist's workstation. Oral contrast: No This CT examination was performed using dose optimization techniques as appropriate, variously including the following: *Automated exposure control *Adjustment of mA and/or kV according to patient size (this includes techniques or standardized protocols for targeted exams where dose is matched to indication/reason for exam; i.e. extremities or head) *Use of iterative reconstruction technique DLP: 915 mGy-cm FINDINGS: LUNG BASES: Dependent changes in the lung bases. LIVER, GALLBLADDER, AND BILIARY TREE: The liver is normal in size, shape, and attenuation. No focal hepatic lesion or biliary ductal dilatation is present. Status post hysterectomy. There is chronic dilation of the common bile duct measuring up to 1.7 cm. PANCREAS: Unremarkable. SPLEEN: Unremarkable. ADRENAL GLANDS: Unremarkable. KIDNEYS AND URETERS: Bilateral kidneys demonstrate a lobulated appearance with diffuse cortical thinning. There are multiple subcentimeter hypodensities within the bilateral kidneys which are too small reliably characterize but likely represent simple cysts. There are multiple additional simple fluid density cyst within the bilateral kidneys, largest of which is seen within the right upper pole measuring 5.3 cm which is stable BLADDER: Unremarkable. GASTROINTESTINAL TRACT: The small bowel are unremarkable. Extensive diverticula seen throughout the entire colon. No bowel thickening or inflammatory stranding. ABDOMINAL WALL: No significant hernia is appreciated. LYMPH NODES: Normal. VASCULAR: Calcified and noncalcified atherosclerotic plaque in the visualized descending thoracic aorta. There is an area of ulcerative plaque seen within the distal descending thoracic aorta. There is a fusiform infrarenal abdominal aortic aneurysm with extensive calcified and noncalcified plaque seen. Additional area of ulcerative plaque seen in the area of the aneurysm. Aneurysm has a maximum diameter of 3.6 cm which is stable compared to the prior exam. No evidence of acute leak or rupture. PELVIC VISCERA: Status post hysterectomy. No adnexal mass lesions. OSSEOUS STRUCTURES: Scoliosis with diffuse degenerative disc disease in the lumbar spine. CT/CT abdomen pelvis w IV con IMPRESSION: 1. No acute process. 2. Extensive diverticulosis without acute diverticulitis. 3. Stable infrarenal abdominal aortic aneurysm with maximum diameter of 3.6 cm. No evidence of acute leak or rupture. There are multiple areas of ulcerative plaques in the distal descending thoracic aorta and abdominal aorta. 4. Multiple bilateral renal cysts. 5. Chronic dilation of the common bile duct.
--- NOTE | 2023-09-06 12:48 | PC.NURSE ---
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
--- NOTE | 2023-09-06 13:33 | ED.GENADULT ---
HPI - General Adult General Chief complaint: Dizziness Stated complaint: NAUSEA VOMITING Time Seen by Provider: 09/06/23 13:03 Source: patient Mode of arrival: EMS History of Present Illness ED Provider: Dr Javier HPI narrative: 83-year-old female with end-stage COPD currently on home oxygen at 2 L, is referred in from Dr. Bolton's office with complaints of feeling weak, nausea and vomiting since this morning last BM was yesterday also has abdominal discomfort and dizziness and also complaint of lower back pain. Related Data Home Medications ?Medication ?Instructions ?Recorded ?Confirmed cholecalciferol (vitamin D3) 25 25 mcg PO DAILY 12/01/19 07/14/23 mcg (1,000 unit) capsule (Vitamin D3) dicyclomine 10 mg capsule 10 mg PO Q6H PRN Abdominal Pain 12/01/19 07/14/23 tramadol 50 mg tablet 50 mg PO Q6H PRN Pain 06/21/23 07/14/23 aspirin 81 mg tablet,delayed 81 mg PO DAILY 07/08/23 07/14/23 release atorvastatin 80 mg tablet 80 mg PO BEDTIME 07/08/23 07/14/23 duloxetine 30 mg capsule,delayed 30 mg PO DAILY 07/08/23 07/14/23 release sprinkle furosemide 40 mg tablet 20 - 40 mg PO DAILY 07/08/23 07/14/23 levothyroxine 100 mcg tablet 100 mcg PO DAILY@0600 07/08/23 07/14/23 meclizine 12.5 mg tablet 25 mg PO TID PRN for motion 07/08/23 07/14/23 sickness/dizziness acetaminophen 650 mg 650 mg PO Q8H PRN Pain 07/14/23 07/14/23 tablet,extended release clotrimazole 1 % topical cream 1 appl topical BID PRN Rash 07/14/23 07/14/23 dexlansoprazole 30 mg 30 mg PO DAILY 07/14/23 07/14/23 capsule,biphase delayed release ipratropium 0.5 mg-albuterol 3 mg 3 ml inhalation QID PRN Shortness 07/14/23 07/14/23 (2.5 mg base)/3 mL nebulization Of Breath Or Wheezing soln Previous Rx's ?Medication ?Instructions ?Recorded stair lift and ramp #1 ea 08/31/20 blood-glucose meter (OneTouch #1 ea 09/14/20 Ultra2 Meter kit) blood-glucose meter (OneTouch #1 ea 09/16/20 UltraMini kit) Wheelchair Ramp #1 ea 10/06/20 Transfer Bench #1 ea 11/01/20 blood pressure monitor (Blood #1 ea 11/03/20 Pressure Kit) hospital bed #1 ea 01/23/21 Nebulizer supplies #3 ea 03/22/21 Semi Electric Hospital Bed #1 ea 03/22/21 diagnosis I50.32 Air mattress #1 ea 11/27/21 nitroglycerin 0.4 mg sublingual 0.4 mg sublingual Q5M PRN for 02/22/22 tablet angina 90 days #25 tabs FOUR WHEEL SCOOTER #1 ea 06/08/22 ondansetron HCl 8 mg tablet 8 mg PO Q12H PRN nausea and 06/22/22 vomiting #30 tabs pads for bedsores 7 7/8 X 11 3/4 #50 ea 07/10/22 thiamine HCl (vitamin B1) 100 mg 100 mg PO DAILY #90 tabs 09/17/22 tablet fluticasone 500 mcg-salmeterol 50 1 inh inhalation BID #60 ea 10/11/22 mcg/dose blistr powdr for inhalation pressure release mattress #1 ea 11/13/22 ezetimibe 10 mg tablet 10 mg PO DAILY #90 tabs 01/15/23 blood sugar diagnostic (OneTouch #100 strips 01/30/23 Ultra Test strips) cyanocobalamin (vitamin B-12) 1,000 mcg IM Q4W 90 days #4 mL 01/30/23 1,000 mcg/mL injection solution lancets #100 ea 02/09/23 apixaban 5 mg tablet (Eliquis) 5 mg PO BID 90 days #180 tabs 05/20/23 ascorbic acid (vitamin C) 500 mg 500 mg PO BID #180 tabs 05/20/23 tablet UNDERPADS Disposable BED #3 ea 06/21/23 metoprolol succinate 50 mg 50 mg PO DAILY #30 tabs 06/22/23 tablet,extended release 24 hr compress.stocking,knee,reg,lrg #12 ea 07/01/23 lancets 33 gauge (OneTouch Delica #100 ea 07/01/23 Plus Lancet) diltiazem HCl 120 mg 120 mg PO DAILY #90 caps 07/11/23 capsule,extended release 24 hr (Cardizem CD) prednisone 10 mg tablet See Taper PO DIRECTED #30 tabs 07/23/23 ketoconazole 2 % shampoo 1 appl topical 2XW #120 mL 08/14/23 dulaglutide 3 mg/0.5 mL 3 mg (0.5 mL) subcut SA #2 mL 08/21/23 subcutaneous pen injector (Trulicity) albuterol sulfate 90 mcg/actuation 2 puff PO Q4H PRN for respiratory 08/27/23 aerosol inhaler distress #8.5 ea loperamide 2 mg capsule (Imodium 2 mg PO Q6H PRN loose stool #14 08/27/23 A-D) caps loratadine 10 mg tablet (Claritin) 10 mg PO DAILY #30 tabs 08/27/23 nystatin 100,000 unit/gram topical 1 appl topical TID #30 grams 08/28/23 cream wound dressings (Triad Wound 1 appl topical TID #852 grams 08/29/23 Dressing paste) carbamide peroxide 6.5 % ear drops 10 drp otic (ears) DAILY 4 days 08/30/23 (Debrox) #15 mL albuterol sulfate 2.5 mg/3 mL 4.1667 mg (5 mL) inhalation Q6H 09/02/23 (0.083 %) solution for nebulization PRN for wheezing #450 mL polymyxin B sulfate 10,000 1 drp ophthalmic (eye) QID 7 days 09/03/23 unit-trimethoprim 1 mg/mL eye drops #10 mL Allergies Allergy/AdvReac Type Severity Reaction Status Date / Time morphine [MORPHINE] Allergy Unknown RASH Verified 09/06/23 12:30 pregabalin [From LYRICA] Allergy Unknown NAUSEA, Verified 09/06/23 12:30 felt high on drugs Review of Systems Review of Systems: Pertinent positives and negatives as stated in HPI [facility] Past Medical History Source: nursing notes reviewed Medical History COPD (chronic obstructive pulmonary disease) Strong odor of stools Dysuria Pulmonary nodules Diarrhea Weakness Bradycardia Ingrowing nail Impacted cerumen of right ear Urinary incontinence Impacted cerumen of right ear Pulmonary nodule Chronic anticoagulation First degree atrioventricular block Atrial fibrillation Chronic pain syndrome 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 Low back pain Respiratory failure with hypoxia and hypercapnia Lower extremity weakness Nasal congestion Otitis externa Coronary artery disease Restrictive lung disease Diarrhea History of spinal stenosis Fibromyalgia Obesity (BMI 30-39.9) Carpal tunnel syndrome Abdominal aortic aneurysm Hypothyroid Obstructive sleep apnea Congestive heart failure Pernicious anemia Paroxysmal atrial fibrillation DVT (deep venous thrombosis) Diverticulitis GERD (gastroesophageal reflux disease) HTN (hypertension) Clostridium difficile colitis CAD (coronary artery disease) Hypercholesterolemia Surgical History S/P BREANN-BSO (total abdominal hysterectomy and bilateral salpingo-oophorectomy) History of arthroplasty of left shoulder Hx of cholecystectomy H/O angioplasty Hx of appendectomy H/O cardiac catheterization Family History Family History Father Hypertension CVD (cardiovascular disease) Mother Colon cancer Sister Leukemia Sister Colon cancer Son Lung cancer Colon polyps Social History Social History Household Members: None Household Members Other:: self Housing: Apartment Do you presently have visiting nurse or other home services: Yes (Nurses to prep meds. [employer] RE[employer]IVE everyday 3x a day) Alcohol intake: never Patient Tobacco Use Status: Former Tobacco user Tobacco use type: Cigarette Years Smoked: stopped 2010 Smoked in Last 30 Days: No e-Cigarette/Vaping Use: Never Used Second Hand Smoke Exposure: No Use of substances other than those prescribed or required for medical reasons: No Advance Directives: Yes Advance Directives on File: Yes Advance Directives Date on File: 10/10/21 Do you have a plan to hurt others: No Plan service: No Current occupational status: retired Current occupational exposures/hazards: No Cognitive needs: No Hearing needs: No Vision needs: Yes Physical Exam ED Vital Signs: Vital Signs - 24 hr 09/06/23 12:21 09/06/23 12:45 09/06/23 14:48 Temperature 97.5 F Pulse Rate 75 77 67 Respiratory Rate 20 20 16 Blood Pressure 128/58 L 116/37 L Pulse Oximetry 89 L 90 L Oxygen Delivery Method Nasal Cannula Nasal Cannula Oxygen Flow Rate 2 09/06/23 15:49 Temperature Pulse Rate Respiratory Rate Blood Pressure 143/56 H Pulse Oximetry Oxygen Delivery Method Oxygen Flow Rate BMI result Body Mass Index 41.0 VITAL SIGNS: Reviewed. GENERAL: Elevated BMI, Well developed, well nourished, in no acute distress. HEAD: Normocephalic/atraumatic EYES: PERRLA, EOMI EARS: Ext canals without abnormality NOSE: Nares patent bilateral OROPHARYNX: no oral lesions noted, posterior pharynx clear NECK: Supple, no adenopathy LUNGS: Decreased breath sounds, no tachypnea, coarse breath sound SpO2<90> onto L CARDIOVASCULAR: Regular rate and rhythm without noted murmurs, no JVD trace nonpitting, symmetric extremity edema. ABDOMEN: Soft, left-sided abdominal discomfort non-distended with bowel sounds. MUSCULOSKELETAL: No tenderness, deformities, or effusions noted on gross inspection. EXTREMITIES: No cyanosis, clubbing or edema. SKIN: Inspection of the skin reveals no rashes NEUROLOGIC: Alert and oriented x 4. Strength and sensation to light touch were grossly intact x 4. Medications Administered Discontinued Medications Generic Name Dose Route Start Last Admin Trade Name Freq PRN Reason Stop Dose Admin Albuterol Sulfate 2.5 mg/ 0 mg 09/06/23 14:43 09/06/23 14:47 Albuterol/Ipratropium 3 ml INHALE 09/06/23 14:44 5 dose ONCE ONE Administration Furosemide 40 mg 09/06/23 15:30 09/06/23 15:49 Furosemide 40 Mg/4 Ml Vial IVPUSH 09/06/23 15:31 40 mg ONCE ONE Administration Protocol Iohexol 100 ml 09/06/23 15:45 09/06/23 15:45 Iohexol 350 Mg/Ml 100 Ml Infus..Btl IV 09/06/23 15:46 85 ml ONCE ONE Administration Methylprednisolone Sodium Succinate 125 mg 09/06/23 14:35 09/06/23 15:05 Methylprednisolone Sod Succ 125 Mg/2 Ml Vial IVPUSH 09/06/23 14:36 125 mg ONCE ONE Administration Medical Decision Making Medical Decision Making [facility] Narrative: 1345: 83-year-old female with history and clinical presentation, DDX: reactive airway,CHF, viral syndrome EKG: Sinus rhythm with first-degree AV block, no STEMI, T-wave abnormalities, QRS/QTC is within normal limits, on comparison with EKG from June/2023 there are no acute changes. I reviewed all investigations and hematologic indices negative for leukocytosis and has a stable chronic normocytic anemia without thrombocytopenia. VBG negative for respiratory acidosis but mild hypercapnia. Chemistry indices negative for SHANEL/eletcrolyte or liver enzyme derangements. BNP elevated and treated with 40mg lasix. Also received ED Bronch and solumedrol. Signed out to Dr Fraser - f/u CT scan abd/pelvis - planned dispo is admission Differential Diagnosis Differential Diagnoses: The differential diagnosis associated with the presentation includes see discussion above Admission/Observation Consideration of admission/observation: Escalation of care including admission/observation considered see discussion above Lab Data MDM Lab Attestation statement: I reviewed the patient's lab results. see discussion above 09/06/23 14:20 09/06/23 14:20 Labs: Lab Results 09/06/23 09/06/23 Range/Units 14:20 14:21 WBC 9.0 (4.8-10.8) X10*3/uL RBC 4.13 L (4.20-5.50) X10*6/uL Hgb 11.5 L (12.0-16.0) g/dl Hct 36.1 L (37.0-47.0) % MCV 87.4 (80.0-98.0) fL MCH 27.8 (27.0-33.0) pg MCHC 31.9 (31.0-35.0) g/dl RDW 15.1 (11.0-16.0) % Plt Count 287 D (160-400) X10*3/uL MPV 9.0 L (9.4-12.3) fL Immature Gran % (Auto) 0.7 H (0.0-0.4) % Neut % (Auto) 64.6 (45-73) % Lymph % (Auto) 20.5 (20-40) % [place] % (Auto) 11.5 H (2-11) % Eos % (Auto) 2.1 (0-4) % Baso % (Auto) 0.6 (0-2) % Lymph # (Auto) 1.8 (1.2-4.9) X10*3/uL [place] # (Auto) 1.0 (0.1-1.2) X10*3/uL Eos # (Auto) 0.2 (0.0-0.4) X10*3/uL Baso # (Auto) 0.1 (0.0-0.2) X10*3/uL Abs Immat Gran (auto) 0.06 H (0.00-0.03) X10*3/uL Absolute Neuts (auto) 5.8 (2.0-8.3) x10*3/uL Absolute Nucleated RBC 0.000 (0.0-0.012) X10*3/uL Nucleated RBC % (auto) 0.0 (0.0-0.2) /100WBC VBG pH 7.33 (7.32-7.43) VBG pCO2 66 mmHg VBG pO2 50 mmHg VBG HCO3 35 H (22-26) mmol/L VBG O2 Saturation 76.0 % VBG Base Excess 7.9 mmol/L Sodium 144 (135-145) mmol/L Potassium 4.1 (3.3-5.1) mmol/L Chloride 102 (96-108) mmol/L Carbon Dioxide 32 H (22-29) mmol/L Anion Gap 14 (12-20) BUN 14 (9-16) mg/dL Creatinine 0.83 (0.5-1.4) mg/dL Estim Creat Clear Calc 55.2 Estimated GFR > 60 Random Glucose 97 (60-115) mg/dL Calcium 9.8 D (8.4-10.2) mg/dL Total Bilirubin 0.6 (0.0-1.0) mg/dL AST 17 (5-31) U/L ALT 8 (0-31) U/L Alkaline Phosphatase 174 H (39-117) U/L B-Natriuretic Peptide 194 H (<100) pg/mL Total Protein 6.8 (6.5-8.0) g/dL Albumin 3.5 (3.5-5.0) g/dL Independent Interpretation I performed an independent interpretation of an: EKG Interpretation: see discussion above Radiology Impression Discussion of test interpretation with radiology: I have reviewed the radiologist's reading. Radiologist Impression: see discussion above Critical Care Time Critical Care Time Critical Care Time: Yes Total Critical Care Time: 45 Attestation: I attest to the time spent in the care of this patient. Discharge Plan Discharge Clinical Impression: CHF (congestive heart failure) Patient Disposition: Still a Patient Prescriptions: No Action (DME) stair lift and ramp See Rx Instructions .Route .MEDSUPPLY Qty: 1 0RF Rx Instructions: As directed (DME) blood-glucose meter [OneTouch Ultra2 Meter] Kit See Rx Instructions .Route Qty: 1 0RF Rx Instructions: As directed (DME) blood-glucose meter [OneTouch UltraMini] Kit See Rx Instructions .Route Qty: 1 0RF Rx Instructions: As directed (DME) Wheelchair Ramp See Rx Instructions .Route .MEDSUPPLY Qty: 1 0RF Rx Instructions: As directed (DME) Transfer Bench Misc See Rx Instructions .Route Qty: 1 0RF Rx Instructions: As directed for bath tub (DME) blood pressure monitor [Blood Pressure Kit] Kit See Rx Instructions .Route Qty: 1 0RF Rx Instructions: As directed ([facility] [place] [facility] Bed diagnosis I50.32 See Rx Instructions .Route .MEDSUPPLY Qty: 1 0RF Rx Instructions: As directed, GERMAN 99 (DME) Nebulizer supplies See Rx Instructions .Route .MEDSUPPLY Qty: 3 3RF Rx Instructions: As directed (DME) Air mattress See Rx Instructions .Route .MEDSUPPLY Qty: 1 0RF Rx Instructions: As directed nitroglycerin 0.4 mg tablet, sublingual 0.4 mg sublingual Q5M PRN (Reason: for angina) 90 Days Qty: 25 0RF (DME) FOUR WHEEL SCOOTER See Rx Instructions .Route .MEDSUPPLY Qty: 1 0RF Rx Instructions: As directed ondansetron HCl 8 mg tablet 8 mg PO Q12H PRN (Reason: nausea and vomiting) Qty: 30 0RF (DME) pads for bedsores 7 7/8 X 11 3/4 pad See Rx Instructions .Route Qty: 50 11RF Rx Instructions: As directed thiamine HCl (vitamin B1) 100 mg tablet 100 mg PO DAILY Qty: 90 2RF fluticasone propion-salmeterol 500-50 mcg/dose blister with device 1 inh inhalation BID Qty: 60 11RF (DME) pressure release mattress See Rx Instructions .Route .MEDSUPPLY Qty: 1 0RF Rx Instructions: As directed ezetimibe 10 mg tablet 10 mg PO DAILY Qty: 90 3RF (DME) OneTouch Ultra Test Strip See Rx Instructions .ROUTE .COMPLEX Qty: 100 3RF Dose Instruction: DIRECTED TEST BLOOD GLUCOSE DAILY Rx Instructions: DIRECTED TEST BLOOD GLUCOSE DAILY cyanocobalamin (vitamin B-12) 1,000 mcg/mL solution 1,000 mcg IM Q4W 90 Days Qty: 4 11RF (DME) lancets Misc See Rx Instructions .Route Qty: 100 3RF Rx Instructions: As directed test blood glucose daily Eliquis 5 mg tablet 5 mg PO BID 90 Days Qty: 180 3RF ascorbic acid (vitamin C) 500 mg tablet 500 mg PO BID Qty: 180 3RF metoprolol succinate 50 mg tablet extended release 24 hr 50 mg PO DAILY Qty: 30 2RF (DME) lancets [OneTouch Delica Plus Lancet] 33 gauge misc See Rx Instructions .ROUTE .COMPLEX Qty: 100 0RF Dose Instruction: USE TO TEST DAILY Rx Instructions: USE TO TEST DAILY ketoconazole 2 % shampoo 1 appl topical 2XW Qty: 120 0RF Trulicity 3 mg/0.5 mL pen injector 3 mg subcut SA Qty: 2 11RF albuterol sulfate 90 mcg/actuation HFA aerosol inhaler 2 puff PO Q4H PRN (Reason: for respiratory distress) Qty: 8.5 5RF loperamide [Imodium A-D] 2 mg capsule 2 mg PO Q6H PRN (Reason: loose stool) Qty: 14 0RF loratadine [Claritin] 10 mg tablet 10 mg PO DAILY Qty: 30 2RF nystatin 100,000 unit/gram cream 1 appl topical TID Qty: 30 0RF Triad Wound Dressing Paste 1 appl topical TID Qty: 852 0RF Debrox 6.5 % drops 10 drp otic (ears) DAILY 4 Days Qty: 15 0RF albuterol sulfate 2.5 mg /3 mL (0.083 %) solution for nebulization 4.1667 mg inhalation Q6H PRN (Reason: for wheezing) Qty: 450 5RF polymyxin B sulf-trimethoprim 10,000 unit- 1 mg/mL drops 1 drp ophthalmic (eye) QID 7 Days Qty: 10 0RF cholecalciferol (vitamin D3) [Vitamin D3] 25 mcg (1,000 unit) Capsule 25 mcg PO DAILY dicyclomine 10 mg Capsule 10 mg PO Q6H PRN (Reason: Abdominal Pain) aspirin 81 mg Tablet,Delayed Release (Dr/Ec) 81 mg PO DAILY duloxetine 30 mg Capsule, Delayed Rel Sprinkle 30 mg PO DAILY furosemide 40 mg tablet 20 - 40 mg PO DAILY atorvastatin 80 mg tablet 80 mg PO BEDTIME meclizine 12.5 mg tablet 25 mg PO TID PRN (Reason: for motion sickness/dizziness) levothyroxine 100 mcg tablet 100 mcg PO DAILY@0600 diltiazem HCl [Cardizem CD] 120 mg Capsule,Extended Release 24hr 120 mg PO DAILY Qty: 90 0RF Protocol: Hold for SBP/HR < HOLD for SBP < : 90 HOLD for HR < : 60 ipratropium-albuterol 0.5 mg-3 mg(2.5 mg base)/3 mL solution for nebulization 3 ml inhalation QID PRN (Reason: Shortness Of Breath Or Wheezing) acetaminophen 650 mg Tablet Extended Release 650 mg PO Q8H PRN (Reason: Pain) clotrimazole 1 % cream 1 appl topical BID PRN (Reason: Rash) dexlansoprazole 30 mg capsule,biphase delayed releas 30 mg PO DAILY prednisone 10 mg tablet See Taper PO DIRECTED Qty: 30 0RF Taper: Prednisone 40 mg daily for 3 Days and 0 Hour 30 mg daily for 3 Days and 0 Hour 20 mg daily for 3 Days and 0 Hour 10 mg daily for 3 Days and 0 Hour Rx Instructions: see taper instructions (DME) compress.stocking,knee,reg,lrg Misc See Rx Instructions .Route Qty: 12 0RF Rx Instructions: As directed 20-30 mm HG (DME) hospital bed See Rx Instructions .Route .MEDSUPPLY Qty: 1 0RF Rx Instructions: As directed tramadol 50 mg tablet 50 mg PO Q6H PRN (Reason: Pain) (DME) UNDERPADS Disposable BED See Rx Instructions .Route .MEDSUPPLY Qty: 3 11RF Rx Instructions: As directed Print Language: Belarusian
[2023-09-06 14:24] LABS: MANUAL DIFF FLAG NO
[2023-09-06 14:27] LABS: Basophils Absolute Auto 0.1 X10*3/uL (0.0-0.2); Basophils Percent Auto 0.6 % (0-2); Eosinophils Absolute Auto 0.2 X10*3/uL (0.0-0.4); Eosinophils Percent Auto 2.1 % (0-4); Hematocrit 36.1 % (37.0-47.0); Hemoglobin 11.5 g/dl (12.0-16.0); Imm Gran Abs Auto 0.06 X10*3/uL (0.00-0.03); Imm Gran Pct Auto 0.7 % (0.0-0.4); Lymphocytes Absolute Auto 1.8 X10*3/uL (1.2-4.9); Lymphocytes Percent Auto 20.5 % (20-40); Mean Corpuscular HGB Conc 31.9 g/dl (31.0-35.0); Mean Corpuscular Hemoglobin 27.8 pg (27.0-33.0); Mean Corpuscular Volume 87.4 fL (80.0-98.0); Monocytes Percent Auto 11.5 % (2-11); Neutrophils Absolute Auto 5.8 x10*3/uL (2.0-8.3); Neutrophils Percent Auto 64.6 % (45-73); Platelet Count 287 X10*3/uL (160-400); Red Blood Count 4.13 X10*6/uL (4.20-5.50); Red Cell Distribution Width 15.1 % (11.0-16.0)
[2023-09-06 14:29] LABS: Venous Blood Gas Refer to POC result
[2023-09-06 14:29] LABS: VBG Base Excess 7.9 mmol/L; VBG HCO3 35 mmol/L (22-26); VBG pCO2 66 mmHg; VBG pH 7.33 (7.32-7.43); VBG pO2 50 mmHg
[2023-09-06 14:43] LABS: Alanine Aminotransferase 8 U/L (0-31); Albumin Level 3.5 g/dL (3.5-5.0); Alkaline Phosphatase 174 U/L (39-117); Anion Gap 14 (12-20); Aspartate Amino Transferase 17 U/L (5-31); Bilirubin Total 0.6 mg/dL (0.0-1.0); Blood Urea Nitrogen 14 mg/dL (9-16); Calcium 9.8 mg/dL (8.4-10.2); Carbon Dioxide 32 mmol/L (22-29); Chloride 102 mmol/L (96-108); Creatinine Clr Calc Pharmacy 55.2; Estimated Glomerular Filt Rate > 60; Glucose Random 97 mg/dL (60-115); Potassium 4.1 mmol/L (3.3-5.1); Sodium 144 mmol/L (135-145); Total Protein 6.8 g/dL (6.5-8.0)
[2023-09-06] MEDS: Albuterol Sulfate 2.5 MG, Albuterol/Iprat 2.5/0.5MG 3 ML 3 ML INHALE (14:47)
[2023-09-06] MEDS: methylPREDNISolone Sod Succ 125 MG/2 ML VIAL IVPUSH (15:05)
[2023-09-06 15:27] LABS: B Type Natriuretic Peptide 194 pg/mL (<100)
--- NOTE | 2023-09-06 15:40 | PC.NURSE ---
Pt taken to CT
[2023-09-06] MEDS: iohexoL 350 MG/ML 100 ML INFUS..BTL IV (15:45)
[2023-09-06] MEDS: Furosemide 40 MG/4 ML VIAL IVPUSH (15:49)
--- NOTE | 2023-09-06 22:34 | MHC.EDTECH ---
Patient was incontinent of large amount of loose stool and urine care given and bedding change ,2200 rounding and vitals taken .
== END 2023-09-06 22:46 | disposition home or self-care (01) ==
PROVIDERS: Student in an Organized Health Care Education/Training Program; Emergency Provider Emergency Medicine; PCP Internal Medicine
DX: I11.0 Hypertensive heart disease with heart failure (principal); I50.9 Heart failure, unspecified; R06.02 Shortness of breath; E11.9 Type 2 diabetes mellitus without complications; E78.00 Pure hypercholesterolemia, unspecified; I48.0 Paroxysmal atrial fibrillation; J44.9 Chronic obstructive pulmonary disease, unspecified; Z99.81 Dependence on supplemental oxygen; Z87.891 Personal history of nicotine dependence; Z79.01 Long term (current) use of anticoagulants; Z79.82 Long term (current) use of aspirin; Z79.899 Other long term (current) drug therapy
CPT/HCPCS: 36415; 71045; 74177; 80053; 82803; 83880; 85025; 93005; 94640; 96374; 96375; 99285; J1940; J2919; Q9967

== ENCOUNTER → 2023-09-06 13:01 | Outpatient (BNV) | payer OTHER, SELFPAY | PROVIDERS: Emergency Provider Student in an Organized Health Care Education/Training Program; PCP Internal Medicine; Visit Provider Internal Medicine Cardiovascular Disease | DX: R94.31 Abnormal electrocardiogram [ECG] [EKG] (principal) | CPT/HCPCS: 93010 ==

== ENCOUNTER 2023-10-16 10:43 | Outpatient (REF) | payer OTHER, SELFPAY ==
[2023-10-16 10:55] LABS: Appearance Urine Clear; Color Urine Yellow; Glucose Urine UA Negative (Negative); Leukocyte Esterase Urine Negative (Negative); Nitrite Urine Positive (Negative); PH 7.5 (5.0-9.0); Specific Gravity - Urine <= 1.005 (1.005-1.025); UMIC TRIGGER UACC YES; Urine Blood Negative (Negative); Urine Ketones Negative (Negative); Urine Protein Negative (Neg-Trace)
[2023-10-16 11:02] LABS: Bacteria Urine 4+ (None Seen); Hyaline Casts Urine 0-2 /LPF (0-2); RBC Urine 0-2 /HPF (0-2); Squamous Epithelial Cell Urine 0-2 /HPF (0-2); UACC Culture Trigger YES; WBC Urine 0-5 /HPF (0-5)
== END 2023-10-16 10:44 | disposition home or self-care (01) ==
LOC: HO.LNP 10:43
PROVIDERS: Visit Provider Internal Medicine
DX: N39.0 Urinary tract infection, site not specified (principal); R41.89 Other symptoms and signs involving cognitive functions and awareness
CPT/HCPCS: 81001; 87086

== ENCOUNTER 2023-11-26 12:03 | Outpatient (AMB) | payer OTHER, SELFPAY ==
--- NOTE | 2023-11-26 12:44 | A.OFFPC_ITS ---
Vital Signs 3 11/26/23 12:45 Height 5 ft 1 in BP 124/74 Blood Pressure Location Rt brachial Position Sitting Pulse 96 Pulse Source Pulse Oximeter Pulse Oximetry (%) 98 Oxygen Delivery Method Nasal Cannula Intake Visit Reasons: Right Hip Fracture, COPD, itchy and crusty eyes Intake Note: Patient is here to follow up on Right hip fracture, COPD, Itchy and crusty eyes. Critical Care Educator Required: No Patch Driller: Present Accompanied by: AIDE Allergies morphine [MORPHINE] Allergy (Unknown, Verified 11/26/23 12:45) RASH pregabalin [From LYRICA] Allergy (Unknown, Verified 11/26/23 12:45) NAUSEA, felt high on drugs Tobacco use date assessed: 11/26/23 Fall risk assessment: No Falls in past year Last assessed Fall Risk: 11/26/23 Dental Screening Dental Screen Date: 07/01/23 HPI Right Hip Fracture, COPD, itchy and crusty eyes 2 HPI0 Details 83-year-old female now on Stretcher hav ing a history of coronary artery disease COPD history of right hip fracture hypothyroidism obstructive sleep apnea atrial fibrillation lumbar degenerative disc disease diabetes mellitus hypertension COPD coming in for follow-up. Last seen in June 2023. Review of the notes had an ER visit in 09/07/2023 complaining of nausea and vomiting had a CT scan done with no acute findings diagnosis of congestive heart failure. Had a CT scan done in 09/07/2023 stable abdominal aortic aneurysm 3.6 cm multiple areas of ulcerative plaques in the distal descending thoracic aorta and abdominal aorta. Bilateral cyst noted dilatation chronic of the common bile duct. June hospitalization for COPD exacerbation positive COVID test was given prednisone taper. Patient is seen in the office lying down on the stretcher and discussed with her the need for her to move sit up and exercise as the patient has not been moving. Complains of pain but discussed with the patient that the pain is just going to get worse if she continues not to move. [facility] Medical History (Updated 09/07/23 @ 00:01 by Background Daemon) COPD (chronic obstructive pulmonary disease) Strong odor of stools Dysuria Pulmonary nodules Diarrhea Weakness Bradycardia Ingrowing nail Impacted cerumen of right ear Urinary incontinence Impacted cerumen of right ear Pulmonary nodule Chronic anticoagulation First degree atrioventricular block Atrial fibrillation Chronic pain syndrome 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 Low back pain Respiratory failure with hypoxia and hypercapnia Lower extremity weakness Nasal congestion Otitis externa Coronary artery disease Restrictive lung disease Diarrhea History of spinal stenosis Fibromyalgia Obesity (BMI 30-39.9) Carpal tunnel syndrome Abdominal aortic aneurysm Hypothyroid Obstructive sleep apnea Congestive heart failure Pernicious anemia Paroxysmal atrial fibrillation DVT (deep venous thrombosis) Diverticulitis GERD (gastroesophageal reflux disease) HTN (hypertension) Clostridium difficile colitis CAD (coronary artery disease) Hypercholesterolemia Surgical History (Updated 11/26/23 @ 12:52 by DEVON Monteiro) History of hip surgery S/P BREANN-BSO (total abdominal hysterectomy and bilateral salpingo-oophorectomy) History of arthroplasty of left shoulder Hx of cholecystectomy H/O angioplasty Hx of appendectomy H/O cardiac catheterization Family History Father Hypertension CVD (cardiovascular disease) Mother Colon cancer Sister Leukemia Sister Colon cancer Son Lung cancer Colon polyps Social History Household Members: None Household Members Other:: self Housing: Apartment Do you presently have visiting nurse or other home services: Yes (Nurses to prep meds. [employer] everyday 3x a day) Alcohol intake: never Patient Tobacco Use Status: Former Tobacco user Tobacco use type: Cigarette Years Smoked: stopped 2009 e-Cigarette/Vaping Use: Never Used Second Hand Smoke Exposure: Yes Advance Directives Date on File: 10/10/21 service: No Current occupational status: retired Current occupational exposures/hazards: No Cognitive needs: No Hearing needs: No Vision needs: Yes Questionnaire Thrive Questionnaire Date Thrive assessed: 07/15/23 Are you currently unemployed and looking for a job?: No DONNY-7 AMB Questionnaire DONNY-7 Date DONNY - 7 assessed: 06/21/23 Source: Developed by Drs. Chang Perez, Allie Segovia, Emiliano Mitchell and colleagues, with an educational fernando from [employer]. Physical exam (Primary Care) Vital Signs: Last Vital Signs Pulse 96 11/26/23 12:45 BP 124/74 11/26/23 12:45 Pulse Ox 98 11/26/23 12:45 Oxygen Delivery Method Nasal Cannula 11/26/23 12:45 Tobacco/Smoking Status: Tobacco use Status Tobacco use date assessed 11/26/23 11/26/23 12:54 Patient Tobacco Use Status Former Tobacco user 11/26/23 12:54 Tobacco use type Cigarette 11/26/23 12:54 e-Cigarette/Vaping Use Never Used 11/26/23 12:54 Thrive Assessment: Date of Thrive Assessment Date Thrive assessed 07/15/23 11/26/23 12:54 Const General: alert HENMT Other: Patient is lying on the stretcher lying on the left side left TM intact right TM can not be visualized due to impacted cerumen. Eyes Other: Has some red rash on the lateral left eye Conjunctivae: conjunctivae normal Eyes/upper lids images: 2 1. 1 cm red rash on the left eye Resp Other: Decreased breath sounds and mild crackles on both sides Cardio Rate: regular rate Rhythm: regular rhythm GI Other: No tenderness on palpation Inspection: Yes normal to inspection Extrem Other: Mild swelling on bilateral extremities with tenderness on palpation but no redness noted Office Procedures Flu Questionnaire Does the patient have a severe egg allergy?: No Does the patient have severe life threatening allergies?: No Does the patient have a fever or illness today?: No Has the patient ever had Guillain-[place] Syndrome?: No Has the patient ever had any past reaction to a flu shot?: No Immunizations Fluarix Triv [id number] (PF) 45 mcg (15 mcg x 3)/0.5 mL IM syringe Performing Provider: Chantal Lay MD [facility] Administered by: ИРИНА Bowen on 11/26/23 13:36 2 Dose Route Admin Location Dispensed Lot Number Expiration Date [facility] Home [employer] 0.5 mL IM Right Gluteus Enrico 0.5 mL [id number] 08/17/24 [id number] [employer] 2 VIS Given Date VIS Provided VIS Publication Date 11/26/23 Single Vaccine 20 Eligibility Eligibility Date Funding Source Not [facility] Eligible 11/26/23 Private Coding Level of Care Code Est Pt Level 4 (34609) Diagnoses Type 2 diabetes mellitus with hyperglycemia E11.65 Acquired hypothyroidism E03.9 Hypothyroidism type: acquired Paroxysmal atrial fibrillation I48.0 Obstructive sleep apnea G47.33 Essential hypertension I10 Atherosclerotic cardiovascular disease I25.10 Closed fracture of right hip with routine healing, subsequent encounter S72.001D Encounter type: subsequent encounter Fracture healing: with routine healing Panlobular emphysema J44.9 Assessment & Plan Assessment & Plan (1) Type 2 diabetes mellitus with hyperglycemia: Comment: E[facility] and [facility] Code(s): E11.65 - Type 2 diabetes mellitus with hyperglycemia Category: Medical Plan: Decrease the amount of carbohydrate intake, pasta, bread, rice and potatoes are all sugar and that is aside from all the sweet stuff, remember that fruits are good but they are Sweet also. On Trulicity 3 mg once a week (2) Hypothyroid: Code(s): E03.9 - Hypothyroidism, unspecified Category: Medical Qualifiers: Hypothyroidism type: acquired Qualified Code(s): E03.9 - Hypothyroidism, unspecified Plan: Continue with thyroid medication June 2023 last test (3) Paroxysmal atrial fibrillation: Code(s): I48.0 - Paroxysmal atrial fibrillation Category: Medical Plan: On Eliquis 5 mg twice a day (4) Obstructive sleep apnea: Comment: Cannot tolerate CPAP, DEPENDS UPON O2 2 L/MINUTE Code(s): G47.33 - Obstructive sleep apnea (adult) (pediatric) Category: Medical Plan: Patient follows up with Pulmonary but can not tolerate the CPAP. On oxygen (5) Essential hypertension: Code(s): I10 - Essential (primary) hypertension Category: Medical Plan: Continue with blood pressure medication. Decrease salt intake and exercise diltiazem 120 mg once a day metoprolol 50 mg once a day (6) Atherosclerotic cardiovascular disease: Code(s): I25.10 - Atherosclerotic heart disease of [place] coronary artery without angina pectoris Category: Medical Plan: Control the cholesterol, weight, blood pressure, diabetes continue with aspirin and on anticoagulation. (7) Closed fracture of right hip: Comment: 2022 fall subtrochanteric fracture, status post intramedullary nailing January 2023 Code(s): S72.001A - Fracture of unspecified part of neck of right femur, initial encounter for closed fracture Category: Medical Qualifiers: Encounter type: subsequent encounter Fracture healing: with routine healing Qualified Code(s): S72.001D - Fracture of unspecified part of neck of right femur, subsequent encounter for closed fracture with routine healing Plan: . . Discussed lengthily about moving as the patient needs to move discussed that there will be pain but the importance of exercise. Discussed about complications of non movement from ulcers to blood clots. (8) COPD (chronic obstructive pulmonary disease): Comment: COPD IS RATHER SEVERE, BUT REMAINS STABLE EXPECTED. tx : ADVISED TO CONTINUE USING ADVAIR 500-50 1 INHALATION B.I.D.. AND DUONEB UPDRAFTS Q 6 HOURS WHILE AWAKE ( 4 TIMES A DAY ) ALSO MAY USE ALBUTEROL UPDRAFT OR ALBUTEROL HFA 2 PUFFS Q 4 HOURS P.R.N. I explained to her that the above combination is, maximum treatment for her. But she does need to use the DuoNeb updraft 3 to 4 times a day. ACAPELLA VALVE IS ORDERED FOR HER, AND SHE SHOULD USE IT EVERY FEW HOURS, Code(s): J44.9 - Chronic obstructive pulmonary disease, unspecified Category: Medical Plan: Continue with albuterol and Symbicort. Signed a form for Chief Taryn torres as patient has the nebulizer treatment and oxygen. Orders: Orders 2 Influenza [id number] Immunization Today Z23 - Encounter for immunization Free T4 (Free Thyroxine) Today E11.65 - Type 2 diabetes mellitus with hyperglycemia Thyroid Stimulating Hormone Today E11.65 - Type 2 diabetes mellitus with hyperglycemia Lipid Panel Today E11.65 - Type 2 diabetes mellitus with hyperglycemia, E78.00 - Pure hypercholesterolemia, unspecified Vitamin D 25-OH Total Today E11.65 - Type 2 diabetes mellitus with hyperglycemia Microalbumin, Random (w Creat) Today E11.65 - Type 2 diabetes mellitus with hyperglycemia Complete Blood Count Auto Diff Today E11.65 - Type 2 diabetes mellitus with hyperglycemia Comprehensive Met. Panel Today E11.65 - Type 2 diabetes mellitus with hyperglycemia Vitamin B12 and Folate Today E11.65 - Type 2 diabetes mellitus with hyperglycemia Creatinine Urine Today E11.65 - Type 2 diabetes mellitus with hyperglycemia UA CC w/rflx Micro + Cult Today E11.65 - Type 2 diabetes mellitus with hyperglycemia, R30.0 - Dysuria Medications: New 2 Fluarix Triv [id number] (PF) (flu vacc [id number] 6mos up(PF)) 0.5 mL IM ONCE 0.5 mL 0RF NS Z23 - Encounter for immunization
[2023-11-26 12:45] VITALS: BP 124/74; PULSE 96; O2SAT 98
== END 2023-11-26 13:33 | disposition home or self-care (01) ==
PROVIDERS: PCP Internal Medicine; Visit Provider Internal Medicine
DX: E11.65 Type 2 diabetes mellitus with hyperglycemia (principal); I48.0 Paroxysmal atrial fibrillation; J44.9 Chronic obstructive pulmonary disease, unspecified; E03.9 Hypothyroidism, unspecified; G47.33 Obstructive sleep apnea (adult) (pediatric); I10 Essential (primary) hypertension; I25.10 Atherosclerotic heart disease of native coronary artery without angina pectoris; S72.001D Fracture of unspecified part of neck of right femur, subsequent encounter for closed fracture with routine healing; Z23 Encounter for immunization

== ENCOUNTER → 2023-11-26 12:03 | Outpatient (BNVA) | payer OTHER, SELFPAY | PROVIDERS: PCP Internal Medicine; Visit Provider Internal Medicine | DX: Z23 Encounter for immunization (principal); E11.65 Type 2 diabetes mellitus with hyperglycemia; E03.9 Hypothyroidism, unspecified; I48.0 Paroxysmal atrial fibrillation; I10 Essential (primary) hypertension; G47.33 Obstructive sleep apnea (adult) (pediatric); I25.10 Atherosclerotic heart disease of native coronary artery without angina pectoris; S72.001D Fracture of unspecified part of neck of right femur, subsequent encounter for closed fracture with routine healing; J44.9 Chronic obstructive pulmonary disease, unspecified | CPT/HCPCS: 90471; 90656; 99212 ==

== ENCOUNTER 2024-01-08 11:05 | Outpatient (REF) | payer OTHER, SELFPAY ==
[2024-01-08 11:17] LABS: Appearance Urine Cloudy; Color Urine Yellow; Glucose Urine UA 250 mg/dL (Negative); Leukocyte Esterase Urine Small (1+) (Negative); Nitrite Urine Positive (Negative); UMIC TRIGGER UACC YES; Urine Blood Trace (Negative); Urine Ketones Negative (Negative); Urine Protein 100 (2+) mg/dL (Neg-Trace)
[2024-01-08 11:37] LABS: Bacteria Urine 4+ (None Seen); Calcium Oxalate Crystals Urine Present; Hyaline Casts Urine 0-2 /LPF (0-2); RBC Urine 0-2 /HPF (0-2); Squamous Epithelial Cell Urine 0-2 /HPF (0-2); UACC Culture Trigger YES; WBC Urine 21-50 /HPF (0-5)
== END 2024-01-08 11:06 | disposition home or self-care (01) ==
LOC: HO.LNP 11:05
PROVIDERS: Visit Provider Internal Medicine
DX: R41.89 Other symptoms and signs involving cognitive functions and awareness (principal); N39.0 Urinary tract infection, site not specified
CPT/HCPCS: 81001; 87086; 87088; 87186

== ENCOUNTER 2024-04-29 11:44 | Outpatient (REF) | payer OTHER, SELFPAY ==
[2024-04-29 11:56] LABS: Appearance Urine Cloudy; Color Urine Yellow; Glucose Urine UA Negative (Negative); Leukocyte Esterase Urine Small (1+) (Negative); Nitrite Urine Positive (Negative); UMIC TRIGGER UACC YES; Urine Blood Negative (Negative); Urine Ketones Negative (Negative); Urine Protein 30 (1+) mg/dL (Neg-Trace)
[2024-04-29 12:03] LABS: Bacteria Urine 4+ (None Seen); Calcium Oxalate Crystals Urine Present; Hyaline Casts Urine 0-2 /LPF (0-2); RBC Urine 0-2 /HPF (0-2); UACC Culture Trigger YES
[2024-04-29 12:43] LABS: Creatinine Urine 145.77 mg/dL
--- OUTSIDE RECORDS SUMMARY | 2024-04-29 13:49 | XMS_ITS ---
Author Organization [facility] [place] Address [address] [place] [address] Care Team Providers Care Superintendent Communications Name Role Phone Chantal Lay Primary Care Provider Quinn Sterling Unavailable [phone] Allergies Allergen (clinical drug ingredient) Drug/Non Drug Allergy documented on EMR Reaction Allergy Type Onset Date Status pregabalin Lyrica nervousness Drug Allergy Acti ve morphine Morphine rash Drug Allergy Active pregabalin Pregabalin Unknown Drug Allergy Activ e REASON FOR VISIT Painful nail(s) aggrevated by shoes and causing difficulty standing/walking. Medications Medication SIG (Take, Route, Frequency, Duration) Notes Start Date End Date Status Extra Depth Diabetic Shoes with 3 Pair Custom heat-molded multi-density innersoles for 1 year Dx: Active Meloxicam Not-Taking Potassium Chloride ER Not-Taking Prevnar 13 Not-Takin g Sucralfate Not-Takin g Nitroglycerin Not-Ta angela oxygen Not-Taking Cefuroxime Axetil No t-Taking Furosemide Not-Takin g Losartan Potassium N ot-Taking Meclizine HCl Not-Ta angela Albuterol Sulfate HFA Not-Taking Advair Diskus Not-Ta angela Extra Depth Diabetic Shoes with 3 Pair Custom heat-molded multi-density innersoles for 1 year Dx: 11/02/2020 Not-Taking Carvedilol Not-Takin g Ezetimibe 10 MG 1 tablet Orally Once a day Active Cyanocobalamin Not-T aking [facility] Vitamin C Active Dexilant Not-Taking DULoxetine HCl 30 MG as directed Orally Active Eliquis 5 MG as directed Orally Active Semaglutide (2 MG/DOSE) 8 MG/3ML as directed Subcutaneous Not-Taking Thiamine HCl 100 MG 1 tablet Orally Once a day for 30 day(s) Not-Taking Levothyroxine Sodium 100 MCG as directed Orally Active Spiriva HandiHaler A ctive Atorvastatin Calcium 40 MG as directed Orally Active Docusate Sodium 100 MG 1 capsule as need ed Orally Once a day for 30 day(s) Active Albuterol Sulfate Ac tive Clotrimazole 1 % 1 application Externally Twice a day for 28 day(s) Active Fluticasone-Salmeterol(sen sor) Active Cholecalciferol 25 MCG (1000 UT) 1 capsule Orally Once a day for 30 day(s) Active Aspirin 81 MG 1 capsule Orally Onc e a day for 30 day(s) Active Ferrous Sulfate 325 (65 Fe) MG 1 tablet Orally Once a day for 30 day(s) Active Metoprolol Succinate ER 50 MG 1 tablet Orally Once a day for 30 day(s) Active Cholestyramine 4 GM 1 packet mixed with water or non-carbonated drink Orally Once a day for 30 day(s) Not-Taking Dicyclomine HCl 10 MG 2 capsules Orally Three times a day for 30 day(s) Active Ipratropium-Albuterol 0.5-2.5 (3) MG/3ML 3 mL as needed Inhalation every 6 hrs Active Nebulizer Active Dexlansoprazole 30 MG 1 capsule Orally O nce a day for 30 day(s) Active Vitamin B12 Active Meclizine HCl 12.5 MG 1 tablet as needed Orally every 12 hrs Active Social History Tobacco Use: Social History Observation Description Date Details (start date - stop date) Former Smoker NA - 10/26/1970 Tobacco Use/Smoking Question Answer Notes Are you a: former smoker When did you stop smoking? 10/26/1970 Additional Findings: Tobacco Non-User Ex-cigaret te smoker Alcohol Screen Question Answer Notes Did you have a drink containing alcohol in the p ast year? No Points 0 Interpretation Negative Tobacco use other than smoking: Question Answer Notes Are you an other tobacco user? 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 and Idiopathic gout, right ankle and foot M10.071 Assessments Encounter Date Diagnosis (ICD Code) Assessment Notes Treatment Notes Treatment Clinical Notes Section Notes 12/17/2022 Tinea unguium (ICD-10 - B35.1) 12/17/2022 Pain in right toe(s) (ICD-10 - M79.674) 12/17/2022 Pain in left toe(s) (ICD-10 - M79.675) 12/17/2022 Type 2 diabetes mellitus with diabetic polyneuropathy (ICD-10 - E11.42) 12/17/2022 Ingrowing nail (ICD-10 - L60.0) 12/17/2022 Xerosis cutis (ICD-10 - L85.3) 12/17/2022 Idiopathic gout, left ankle and foot (ICD-10 - M10.072) 12/17/2022 Idiopathic gout, right ankle and foot (ICD-10 - M10.071) Plan Of Treatment Medication Medication Name Sig Start Date Stop Date Notes Extra Depth Diabetic Shoes w ith 3 Pair Custom heat-molded multi-density innersoles for 1 year Dx: Next Appt Details Follow Up: 6 Months, Reason: Procedure Notes * Category Sub-Category Detail Notes Debride Nail 6-10 Nail debridement Nail debridem ent performed extensively to reduce/remove overall nail length and girth, subungual debris, and necrotic tissue, by manual and electrical means with use of a nail nipper and/or dremel, to more viable healthy nail plate or bed tissue 6-10. Silver nitrate used for any petechial bleeding as necessary. Patient chooses, no pharmaceutical tx (35930) Keratoma Treatment Parring or Cutting o f Benign Hyperkeratotic Lesion(s) 40089 ( >4 Lesions) - The Benign hyperkeratotic lesions, as described above were pared, and/or cut utilizing a sterile #15 blade, tissue nippers, and/or dremel Progress Notes * Carly UNGERDOB:1940 ( 82 yo F)Acc No.[id number]:12/17/2022 Progress Note Patient:Carly Mayorga Provider:?Quinn Leija DPM :1940???Age:82 Y???Sex:Female D ate:12/17/2022 [facility] [address] [facility] Pcp:Chantal Lay Subjective: * Chief Complaints: * ??? Painful nail(s) aggrevat ed by shoes and causing difficulty standing/walking. * HPI: ???Painful Nails:?Pt States Last PCP Visit:?Date:?08/20/2022 ?Misc:?pt is now wheelchair bd.?Foot Pain:?Nature:?numbness, burning.?Location:?B/L, Forefoot.?Duration:?several months.?Onset:?DM.?Course:?worse, progressive.?Toe pain:?Nature:?tingling, throbbing, sharp.?Location:?Top, B/L feet-ff.?Duration:?several months.?Onset/Cause:?dpn.?Course:?worse.?Aggrevated by:?any pressure.? * ROS:?General/Constitutional:?Nausea?denies.?Vomiting?denies.?Hunger Thirst?denies.?Loss appetite?admits.?Chills?denies.?Fatigue?denies.?Fever?denies.?Night Sweats?admits.?Unexplained weight loss?denies.?Unexplained weight gain?denies.?HEENTM:?Dentures?admits.?Dizziness?admits.?Glasses/contacts?admits.?Retinopathy?de nies.?Blurred/double vision?admits, admits.?TMJ?denies.?Discharge/drainage?denies.?Implants?denies.?Sore throat?denies.?Dental implants?denies.?Hard of hearing ?denies.?Difficulty chewing/swallowing/speaking?denies.?Nose bleeds?denies.?Sore mouth?denies.?Respiratory:?On Oxygen?admits.?Pneumonia/pleurisy?denies.?Bronchitis?denies.?Emphysema?denies.?C oughing?admits.?Cough blood?denies.?Shortness of breath?admits.?Wheezing?denies.?Cardiovascular:?Pacemaker?denies.?MVP?denies.?WPW?denies.?CHF?admits.?Heart attack?denies.?Septal defect?denies, denies.?Rapid beat?admits.?Chest pain ?denies.?Atrial Fib.?admits.?Murmur/Palpitations?denies.?Gastrointestinal:?Hemorrhoids?admits.?Stomach/Abdominal pain?denies, denies.?Dark blood stool?denies.?Irritable bowel ?admits, admits.?Constipation?denies.?Diarrhea?admits.?Hematology:?Swelling?denies.?Clots?Denies.?Varicose Veins?admits.?Bruising?denies.?Bleeding problem?denies, denies.?Genitourinary:?Blood urine?denies.?Frequent/Painfu/urination/bladder control?denies.?Kidney stones?denies.?Infection (UTI)?denies, denies.?Nephropathy?denies.?sex trans dis (STD)?denies.?Prostate?denies.?Musculoskeletal:?Hammertoes?denies.?Bunions?denies.?Back Pain?denies.?Muscle Cramps/ Resting?denies.?Muscle cramps / walking?denies, denies.?Generalized aches and pains?admits.?Weakness?denies.?Integ.:?Menjivar?denies.?Scars?admits.?Corns/calluses?denies.?Ingrown nails?denies.?Painful nails?admits.?Open Sores?denies, denies.?Rashes?denies.?Neurologic:?Difficulty sleeping?admits.?Brain disorder?denies.?Numbness?denies.?Balance trouble?admits.?Confusion?denies, denies.?Fainting/blackouts?denies.?Tingling?denies.?Tremors?denies.? * Medical History:? * Surgical History:?varicose v eins hysterectomy gall bladder 1959-houlder replacement cataract surgery * Hospitalization/Major Diagno stic Procedure:?heart attack [facility], breathing issues 03/11[facility], dizziness 05/09 * Family History:?Mother: dece ased, diagnosed with Other malignant neoplasm of unspecified site.?Father: , poor circulation, diagnosed with Unspecified heart disease, Unspecified essential hypertension.?Siblings: poor circulation, dementia , diagnosed with Diabetic - NIDDM, Unspecified heart disease, Unspecified cerebral artery occlusion with cerebral infarction, Other malignant neoplasm of unspecified site.? * Social History:?Tobacco Use:?Tobacco Use/Smoking?Are you a:?former smoker ?When did you stop smoking??10/26/1970 ?Additional Findings: Tobacco Non-User?Ex-cigarette smoker ?Tobacco use other than smoking?Are you an other tobacco user??No ???Drugs/Alcohol:?Drugs?Have you used drugs other than those for medical reasons in the past 12 months??No ?Alcohol Screen?Did you have a drink containing alcohol in the past year??No ?Points?0 ?Interpretation?Negative ???Miscellaneous:?Caffeine: yes, occassionally coffee and soda. ?Children: yes, 8. ?no Exercise. ?Marital status: . ?Occupation: Retired. * Medications:?TakingMeclizine HCl 12.5 MG Tablet 1 tablet as needed Orally every 12 hrsVitamin B12 Ipratropium-Albuterol 0.5-2.5 (3) MG/3ML Solution 3 mL as needed Inhalation every 6 hrsNebulizer Dexlansoprazole 30 MG Capsule Delayed Release 1 capsule Orally Once a dayDicyclomine HCl 10 MG Capsule 2 capsules Orally Three times a dayCholecalciferol 25 MCG (1000 UT) Capsule 1 capsule Orally Once a dayAspirin 81 MG Capsule 1 capsule Orally Once a dayFerrous Sulfate 325 (65 Fe) MG Tablet 1 tablet Orally Once a dayMetoprolol Succinate ER 50 MG Tablet Extended Release 24 Hour 1 tablet Orally Once a dayClotrimazole 1 % Cream 1 application Externally Twice a dayFluticasone-Salmeterol(sensor) Docusate Sodium 100 MG Capsule 1 capsule as needed Orally Once a dayAlbuterol Sulfate Atorvastatin Calcium 40 MG Tablet as directed Orally Eliquis 5 MG Tablet as directed Orally Levothyroxine Sodium 100 MCG Tablet as directed Orally Spiriva HandiHaler [facility] Vitamin C DULoxetine HCl 30 MG Capsule Delayed Release Particles as directed Orally Ezetimibe 10 MG Tablet 1 tablet Orally Once a dayExtra Depth Diabetic Shoes with 3 Pair Custom heat-molded multi-density innersoles for 1 year Dx:Taking Meclizine HCl 12.5 MG Tablet 1 tablet as needed Orally every 12 hrsTaking Vitamin B12 Taking Ipratropium-Albuterol 0.5-2.5 (3) MG/3ML Solution 3 mL as needed Inhalation every 6 hrsTaking Nebulizer Taking Dexlansoprazole 30 MG Capsule Delayed Release 1 capsule Orally Once a dayTaking Dicyclomine HCl 10 MG Capsule 2 capsules Orally Three times a dayTaking Cholecalciferol 25 MCG (1000 UT) Capsule 1 capsule Orally Once a dayTaking Aspirin 81 MG Capsule 1 capsule Orally Once a dayTaking Ferrous Sulfate 325 (65 Fe) MG Tablet 1 tablet Orally Once a dayTaking Metoprolol Succinate ER 50 MG Tablet Extended Release 24 Hour 1 tablet Orally Once a dayTaking Clotrimazole 1 % Cream 1 application Externally Twice a dayTaking Fluticasone-Salmeterol(sensor) Taking Docusate Sodium 100 MG Capsule 1 capsule as needed Orally Once a dayTaking Albuterol Sulfate Taking Atorvastatin Calcium 40 MG Tablet as directed Orally Taking Eliquis 5 MG Tablet as directed Orally Taking Levothyroxine Sodium 100 MCG Tablet as directed Orally Taking Spiriva HandiHaler Taking [facility] Vitamin C Taking DULoxetine HCl 30 MG Capsule Delayed Release Particles as directed Orally Taking Ezetimibe 10 MG Tablet 1 tablet Orally Once a dayTaking Extra Depth Diabetic Shoes with 3 Pair Custom heat-molded multi-density innersoles for 1 year Dx:Not-Taking/PRNCholestyramine 4 GM Packet 1 packet mixed with water or non-carbonated drink Orally Once a daySemaglutide (2 MG/DOSE) 8 MG/3ML Solution Pen-injector as directed Subcutaneous Thiamine HCl 100 MG Tablet 1 tablet Orally Once a dayDexilant Cyanocobalamin Extra Depth Diabetic Shoes with 3 Pair Custom heat-molded multi-density innersoles for 1 year Dx:Meclizine HCl Albuterol Sulfate HFA Advair Diskus Carvedilol Cefuroxime Axetil Furosemide Losartan Potassium Nitroglycerin oxygen Prevnar 13 Sucralfate Meloxicam Potassium Chloride ER Medication List reviewed and reconciled with the patientNot-Taking/PRN Cholestyramine 4 GM Packet 1 packet mixed with water or non-carbonated drink Orally Once a dayNot-Taking/PRN Semaglutide (2 MG/DOSE) 8 MG/3ML Solution Pen-injector as directed Subcutaneous Not-Taking/PRN Thiamine HCl 100 MG Tablet 1 tablet Orally Once a dayNot-Taking/PRN Dexilant Not-Taking/PRN Cyanocobalamin Not-Taking/PRN Extra Depth Diabetic Shoes with 3 Pair Custom heat-molded multi-density innersoles for 1 year Dx:Not-Taking/PRN Meclizine HCl Not-Taking/PRN Albuterol Sulfate HFA Not- Taking/PRN Advair Diskus Not-Taking/PRN Carvedilol Not-Taking/PRN Cefuroxime Axetil Not-Taking/PRN Furosemide Not-Taking/PRN Losartan Potassium Not-Taking/PRN Nitroglycerin Not-Taking/PRN oxygen Not-Taking/PRN Prevnar 13 Not-Taking/PRN Sucralfate Not-Taking/PRN Meloxicam Not-Taking/PRN Potassium Chloride ER Medication List reviewed and reconciled with the patient * Allergies:?Morphine: rashLyr ica: nervousnessPregabalinyes[Allergies Verified] Objective: * Vitals:?Ht: 5 ft 1.5 in, Wt: 207, BMI:38.47, Shoe size:9W, BP:136/74 mm Hg, HR:48 /min, BS:146. * ???Past Orders: ???Lab:HEMOGLOBIN A1C (GLYCO HEMOGLOBIN) (Order Date - 03/06/2022) (Collection Date - 03/06/2022) ? Value Reference Range ?HEMOGLOBIN A1C % (HH) 5.1 * Examination: ???Nails: ?NAILS are:?Elongated, overgrown, dystrophic, lytic, greater than 3mm thick, discolored and friable with crumbly malodorous subungual debris, with dull to no pain on palpation due to neuropathy, 1-5 B/L.?Neurological: ?SENSORY:? Neurological exam demonstrates, reduced vibration sensation, 5.07 monofilament test performed at plantar aspects of 5 varied sites per foot shows sensation, reduced , B/L, Neurological exam demonstrates pop james dorsum mtpj's.?Vascular: ?DP PULSES:? 1/4, B/L.?PT PULSES:?0/4. B/L.?CAPILLARY FILL TIME:? delayed, all digits, B/L.?SKIN TEMPERTURE GRADIENT OF THE LOWER EXTERMITIES:? decreased, cool to cold, proximal to distal, B/L.?EDEMA:? 2/4, B/L, Feet, Ankle(s), Leg(s).?TELANGECTASIA:? moderate.?VARICOSITIES:? present, moderate, nonpainful, B/L.?Dermatologic: ?SKIN FINDINGS:? Skin exam reveals Keratotic lesion(s) located at, Medial plantar, IPJ, TA, T5.?General Examination: ?GENERAL APPEARANCE:?Reveals a pleasant, alert, well nourished, well developed, well hydrated individual, who demonstrates proper attention to hygene/body habitus, and is in no acute distress.?ORIENTED:?person, place, and time.?FOOT EXAM:?Lower Extremity Neurological Exam performed:?Yes ?Visual exam of foot performed:?Yes ?Date?03/09/2022 ?Sensory testing performed:?sensations diminished ?Pedal pulse taking performed:?1+?Orthopedic: ?MUSCLE STRENGTH:?5/5 all groups in a symmetrical fashion , B/L.?Ophthalmology Referral: ?DIABETES EYE EXAM?Diabetic Retinopathy Screening:?No ?Findings of Diabetic Eye Exam:?no retinopathy??? Assessment: * Assessment: 1.?Tinea unguium - B35.1 (Pr imary)?2.?Pain in right toe(s) - M79.674?3.?Pain in left toe(s) - M79.675?4.?Type 2 diabetes mellitus with diabetic polyneuropathy - E11.42?5.?Ingrowing nail - L60.0?6.?Xerosis cutis - L85.3?7.?Idiopathic gout, left ankle and foot - M10.072?8.?Idiopathic gout, right ankle and foot - M10.071? Plan: * Treatment: * Procedures:?Debride Nail 6-10:?Nail debridement?Nail debridement performed extensively to reduce/remove overall nail length and girth, subungual debris, and necrotic tissue, by manual and electrical means with use of a nail nipper and/or dremel, to more viable healthy nail plate or bed tissue 6-10. Silver nitrate used for any petechial bleeding as necessary. Patient chooses, no pharmaceutical tx (19326).?Keratoma Treatment:?Parring or Cutting of Benign Hyperkeratotic Lesion(s)?98197 ( >4 Lesions) - The Benign hyperkeratotic lesions, as described above were pared, and/or cut utilizing a sterile #15 blade, tissue nippers, and/or dremel.? * Procedure Codes:?80046 TRIM SKIN LESIONS, OVER 4, Modifiers: XS * Preventive Medicine:? ??Counseling:?Discussion:?-14: Office or other outpatient visit for the evaluation and management of an established patient, which required a medically appropriate history and/or examination and moderate level of decision making. When using time for code selection, 30-39 min of total time was spent on the day of the encounter interpreting the data and educating the patient as to the nature of their condition, treatment options available according to their individual PMH, meds, allergies, and overall health/living conditions, as well as any potential risks or complications that may occur from a failure to adhere to, and participate in, the recommended course of therapy. The discussion included a complete verbal, and/or written explanation of the examination results, any x-rays taken, the proposed diagnosis, and outline of the treatment plan. A schedule for future care needs was also explained. The patient verbalized an understanding of the instructions at this time and agreed to be an active participant in their treatment. If the patient should think of any questions or concerns after the visit, I have encouraged the patient to call the office.?Consult:?The Pt. was counseled on the diagnosis, treatment options, and the need for a , PCP Consult for continued eval and tx of gout; I recommended for pt to use unsweetened caldera juice daily until she sees PCP in a few weeks.?Gout:?I explained to the patient the possible etiologies Gout, including genetic, excess dietary protein, excess dietary sugar, alcohol, diuretic medications, dehydration, and/or previous surgery. An information sheet re: the foods to enjoy as well as avoid was dispensed and detailed at the time of visit. We discussed the risks/benefits of all the different treatment options for Gout including: No treatment at all, Rest, Ice, NSAIDs(only if well tolerated after meals), Oral steroids, Colchicine, New/supportive Shoegear, Foot/Ankle AFO Bracing, Arch support/shoe inserts, Custom orthoses, Topical analgesics including Aspercream/Voltaren gel/Custom compounded combination therapy, and Dietary modification. Advantages and disadvantages of each option were discussed and the patients' questions re: shoegear, custom vs prefabricated inserts, activity level, PO vs Topical medications (and their respective potential complications/drug interactions/side effects including the possible interaction with statin medications ), diet, and consistency in home treatment regimens for optimal success were answered to their verbally confirmed satisfaction, Anti-inflammatories, Diet modification, Handout given and reviewed.? * Follow Up:?6 Months * Images: * Sign off status: Completed true * Provider:?Quinn Leija DPM Date:? 023 Generated for Ciera jin/Carolina/Aris on:?04/29/2024 01:48 PM EDT History and Physical Notes * HPI (History of Present Illness) Category Sub-Category Detail Notes Category Not es Toe pain Nature: tingling, throbbing, sharp Location: Top, B/L feet-ff Duration: several months Onset/Cause: dpn Course: worse Aggravated by: any pressure Painful Nails Misc: pt is now wheelchair bd Pt States Last PCP Visit: Date:: 08/20/2022 Foot Pain Nature: numbness, burning Location: B/L, Forefoot Duration: several months Onset: DM Course: worse, progressive Examination Category Sub-Category Detail Notes Category Not es Neurological SENSORY: Neurological exa m demonstrates, reduced vibration sensation, 5.07 monofilament test performed at plantar aspects of 5 varied sites per foot shows sensation, reduced , B/L, Neurological exam demonstrates pop james dorsum mtpj's Dermatologic SKIN FINDINGS: Skin exam reveal s Keratotic lesion(s) located at, Medial plantar, IPJ, TA, T5 Orthopedic MUSCLE STRENGTH: 5/5 all groups in a symmetrical fashion , B/L General Examination GENERAL APPEARANCE: Reveals a pleasant, alert, well nourished, well developed, well hydrated individual, who demonstrates proper attention to hygene/body habitus, and is in no acute distress FOOT EXAM: Lower Extremity Neurological Exa m performed:: Yes Visual exam of foot performed:: Yes Date: 03/09/2022 Sensory testing performed:: sensations d iminished Pedal pulse taking performed:: 1+ ORIENTED: person, place, and t ondina Ophthalmology Referral DIABETES EYE EXAM Diabetic Retinopa thy Screening:: No Findings of Diabetic Eye Exam:: no retin opathy Vascular DP PULSES (B): 1/4, B/L PT PULSES (B): 0/4. B/L CAPILLARY FILL TIME: delayed, all digits , B/L TEMPERTURE GRADIENT (C): decreased, cool to cold, proximal to distal, B/L EDEMA (C): 2/4, B/L, Feet, Ankl e(s), Leg(s) TELANGECTASIA: moderate VARICOSITIES: present, moderate, n onpainful, B/L Nails NAILS are: Elongated, overg rown, dystrophic, lytic, greater than 3mm thick, discolored and friable with crumbly malodorous subungual debris, with dull to no pain on palpation due to neuropathy, 1-5 B/L
--- OUTSIDE RECORDS SUMMARY | 2024-04-29 13:49 | XMS_ITS ---
Author Organization [facility] Address [address] [place] [address] Care Team Providers Care Pillowcase Folder Name Role Phone Chantal Lay Primary Care Provider Quinn Sterling [phone] REASON FOR VISIT No Show Encounters Encounter Location Date Provider Diagnosis [facility] [address] [place] [address] 06/17/2023 Quinn Leija Plan Of Treatment No Information Progress Notes * DARINELCarly YATESDOB:1940 ( 83 yo F)Acc No.[id number]:06/17/2023 Patient:?Carly Unger :1940???Age:83 Y???Sex:Female Address[address] [place], [address] * true * Date:? Generated for Jeffryi davin/[place]ina/eTransmitting on:?04/29/2024 01:49 PM EDT
--- OUTSIDE RECORDS SUMMARY | 2024-04-29 13:49 | XMS_ITS ---
Author Organization [facility] Address [address] [place] [address] Care Team Providers Care Research Quality Assurance Analyst Name Role Phone Chantal Lay Primary Care Provider Quinn Sterling Unavailable [phone] REASON FOR VISIT Painful nail(s) aggrevated by shoes and causing difficulty standing/walking. Medications Medication SIG (Take, Route, Frequency, Duration) Notes Start Date End Date Status Extra Depth Diabetic Shoes with 3 Pair Custom heat-molded multi-density innersoles for 1 year Dx: Active Encounters Encounter Location Date Provider Diagnosis [facility] [address] [place] [address] 06/17/2023 Quinn Leija Tinea unguium B35.1 ; Pain [...] Treatment Notes Treatment Clinical Notes Section Notes 06/17/2023 Tinea unguium (ICD-10 - B35.1) 06/17/2023 Pain in right toe(s) (ICD-10 - M79.674) 06/17/2023 Pain in left toe(s) (ICD-10 - M79.675) 06/17/2023 Type 2 diabetes mellitus with diabetic polyneuropathy (ICD-10 - E11.42) 06/17/2023 Ingrowing nail (ICD-10 - L60.0) 06/17/2023 Xerosis cutis (ICD-10 - L85.3) 06/17/2023 Idiopathic gout, 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 Patient chooses, no pharmaceutical tx (61196) Keratoma Treatment Parring or Cutting o f Benign Hyperkeratotic Lesion(s) 87548 ( >4 Lesions) - The Benign hyperkeratotic lesions, as described above were pared, and/or cut utilizing a sterile #15 blade, tissue nippers, and/or dremel Progress Notes * Carly UNGERDOB:1940 ( 83 yo F)Acc No.[id number]:06/17/2023 Progress Note Patient:?Carly UNGER Provider:?Quinn Leija DPM :1940???Age:83 Y???Sex:Female D ate:06/17/2023 Address: [id number] Pcp:Chantal Lay Subjective: * Chief Complaints: * ???1. Painful nail(s) aggrev ated by shoes and causing difficulty standing/walking.. * HPI: ???Painful Nails:?Pt States Last PCP Visit:?Date:?08/20/2022 ?Misc:?pt is now wheelchair bd.?Foot Pain:?Nature:?numbness, burning.?Location:?B/L, Forefoot.?Duration:?several months.?Onset:?DM.?Course:?worse, progressive.?Toe pain:?Nature:?tingling, throbbing, sharp.?Location:?Top, B/L feet-ff.?Duration:?several months.?Onset/Cause:?dpn.?Course:?worse.?Aggravated by:?any pressure.? * ROS:?General/Constitutional:?Nausea?denies.?Vomiting?denies.?Hunger Thirst?denies.?Loss appetite?admits.?Chills?denies.?Fatigue?denies.?Fever?denies.?Night Sweats?admits.?Unexplained [...] sleeping?admits.?Brain disorder?denies.?Numbness?denies.?Balance trouble?admits.?Confusion?denies, denies.?Fainting/blackouts?denies.?Tingling?denies.?Tremors?denies.? * Medical History:? Objective: * Vitals:? * Examination: ???Nails: ?NAILS are:?Elongated, overgrown, dystrophic, [...] exam demonstrates pop james dorsum mtpj's.?Vascular: ?DP PULSES (B):? 1/4, B/L.?PT PULSES (B):?0/4. B/L.?CAPILLARY FILL TIME:? delayed, all digits, B/L.?TEMPERTURE GRADIENT (C):? decreased, cool to cold, proximal to distal, B/L.?EDEMA (C):? 2/4, B/L, Feet, Ankle(s), Leg(s).?TELANGECTASIA:? moderate.?VARICOSITIES:? present, [...] * Assessment: 1.?Tinea unguium - B35.1 (Pr imary)???2.?Pain in right toe(s) - M79.674???3.?Pain in left toe(s) - M79.675???4.?Type 2 diabetes mellitus with diabetic polyneuropathy - E11.42???5.?Ingrowing nail - L60.0?? 6.?Xerosis cutis - L85.3???7.?Idiopathic gout, left ankle and foot - M10.072???8.?Idiopathic gout, right ankle and foot - M10.071??? Plan: * Treatment: * Procedures:?Debride Nail 6-10:?Nail debridement?Nail debridement performed extensively to reduce/remove overall nail length and girth, subungual debris, and necrotic tissue, by manual and electrical means with use of a nail nipper and/or dremel, to more viable healthy nail plate or bed tissue 6-10. Silver nitrate used for any petechial bleeding as necessary. Patient chooses, no pharmaceutical tx (11305).?Keratoma Treatment:?Parring or Cutting of Benign Hyperkeratotic Lesion(s)?43697 ( >4 Lesions) - The Benign hyperkeratotic lesions, as described above were pared, and/or cut utilizing a sterile #15 blade, tissue nippers, and/or dremel.? * Procedure Codes:?80816 TRIM SKIN LESIONS, OVER 4, Modifiers: XS * Follow Up:?6 Months * Images: * The named appointment provid er may or may not be the originator of this progress note, and it is not deemed complete until electronically signed by the appointment provider. Sign off status: Pending * Provider:Taina Leija DPM Date:? 024 Generated for Ciera jin/Carolina/Aris on:?04/29/2024 01:49 PM EDT History and Physical Notes * [...]
--- OUTSIDE RECORDS SUMMARY | 2024-04-29 13:49 | XMS_ITS | Patient Health Record ---
[facility] Address [address] [place] [place] [address] Care Team Providers Care Strategic Partnership Representative Name Role Phone Chantal Lay Primary Care Provider Quinn Sterling Unavailable [phone] Allergies Allergen (clinical drug ingredient) Drug/Non Drug Allergy documented on EMR Reaction Allergy Type Onset Date Status pregabalin Lyrica nervousness Drug Allergy Acti ve morphine Morphine rash Drug Allergy Active pregabalin Pregabalin Unknown Drug Allergy Activ e Reason For Referral No Information Medications Medication SIG (Take, Route, Frequency, Duration) Notes Start Date End Date Status Meloxicam Not-Taking Potassium Chloride ER Not-Taking Dicyclomine HCl 10 MG 2 capsules Orally Three times a day for 30 day(s) Active Cholecalciferol 25 MCG (1000 UT) 1 capsule Orally Once a day for 30 day(s) Active Meclizine HCl Not-Alexy miller Aspirin 81 MG 1 capsule Orally Onc e a day for 30 day(s) Active Albuterol Sulfate HFA Not-Taking Ferrous Sulfate 325 (65 Fe) MG 1 tablet Orally Once a day for 30 day(s) Active Advair Diskus Not-Ta Ezetimibe 10 MG 1 tablet Orally Once a day Active Extra Depth Diabetic Shoes with 3 Pair Custom heat-molded multi-density innersoles for 1 year Dx: 11/02/2020 Not-Taking Docusate Sodium 100 MG 1 capsule as need ed Orally Once a day for 30 day(s) Active Albuterol Sulfate Ac tive Extra Depth Diabetic Shoes with 3 Pair Custom heat-molded multi-density innersoles for 1 year Dx: Active Metoprolol Succinate ER 50 MG 1 tablet Orally Once a day for 30 day(s) Active Carvedilol Not-Takin g Cholestyramine 4 GM 1 packet mixed with water or non-carbonated drink Orally Once a day for 30 day(s) Not-Taking Cefuroxime Axetil No t-Taking Clotrimazole 1 % 1 application Externally Twice a day for 28 day(s) Active Furosemide Not-Takin g Fluticasone-Salmeterol(sen sor) Active Losartan Potassium N ot-Taking Eliquis 5 MG as directed Orally Active Semaglutide (2 MG/DOSE) 8 MG/3ML as directed Subcutaneous Not-Taking Thiamine HCl 100 MG 1 tablet Orally Once a day for 30 day(s) Not-Taking Levothyroxine Sodium 100 MCG as directed Orally Active Atorvastatin Calcium 40 MG as directed Orally Active Ipratropium-Albuterol 0.5-2.5 (3) MG/3ML 3 mL as needed Inhalation every 6 hrs Active Cyanocobalamin Not-T aking Nitroglycerin Not-Ta angela Nebulizer Active oxygen Not-Taking Dexlansoprazole 30 MG 1 capsule Orally O nce a day for 30 day(s) Active Prevnar 13 Not-Takin g Sucralfate Not-Takin g Spiriva HandiHaler A ctive [facility] Vitamin C Active Meclizine HCl 12.5 MG 1 tablet as needed Orally every 12 hrs Active Dexilant Not-Taking Vitamin B12 Active DULoxetine HCl 30 MG as directed Orally Active Immunizations Vaccine Route Administration Date Status Comme nts COVID-19 [facility] [employer] [facility]/Erica Unknown 01/05/2021 A dministered 05/20/20 Social History Tobacco Use: Social History Observation [...] Are you an other tobacco user? No Problems Problem Type SNOMED Code ICD Code Onset Dates Problem Status W/U Status Risk Notes Problem Polyneuropathy due to type 2 diabetes mellitus (372668146) Type 2 diabetes mellitus with diabetic polyneuropathy (E11.42) Active confirmed Problem Primary gout (58171378) Idiopathic gout, right ankle and foot (M10.071) Active confirmed Problem Primary gout (55082178) Idiopathic gout, left ankle and foot (M10.072) Active confirmed Problem Polyneuropathy due to diabetes mellitus type I (792143367) Type 1 diabetes mellitus with diabetic polyneuropathy (E10.42) Active confirmed Encounters Encounter Location Date Provider Diagnosis [facility] [address] [place] [address] 06/17/2023 Quinn Leija Plan Of Treatment Pending Test Test Name Order Date *Uric Acid, Serum 08/22/2021 *Sedimentation Rate-Westergren 2 [id number] SKIN LESIONS, OVER 4 11/03/19 21 [id number] SKIN LESIONS, OVER 04/19/19 Insurance Providers Payer Name Payer Address Payer Phone Subscriber Number Group Number Insured Name Patient Relationship to Insured Coverage Start Date Coverage End Date [facility] [id number] BETTINA Mckeon [phone] [id number] Carly Unger Self - patient is the insured Medical (General) History Medical History History ICD Code Anxiety Arthritis Back,Hip,and Knee pain CAD (Cholesterol) Cataracts Depression Diabetic Fibromyalgia Gall bladder problems Heart disease High blood pressure Lung disease Poor circulation Reflux ( GERD) chronic sinusitis Stomach ulcer thyroid Measles Mumps Chicken pox Joint implants/screws Surgical History Surgery Date(Month/Year) varicose veins hysterectomy gall bladder shoulder replacement cataract surgery Hospitalization History Reason Date(Month/Year) [facility], dizziness 05/09 heart attack C, breathing issues 03/11
--- OUTSIDE RECORDS SUMMARY | 2024-04-29 13:50 | XMS_ITS | Data Portability ---
Author Organization [facility], Main Office Address 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 Lab None record ed. Referral None record ed. Procedures None record ed. Surgeries None record ed. Imaging None record ed. Medication Orders None record ed. Patient TargetsNo targets recorded. Patient InstructionsNo instructions recorded. Reason for Referral None Reported. Problems Name Problem SNOMED Code Status Onset Date Resolution Date Notes Provider Name and Address Organization Details Recorded Time Dizziness 252174786 Active 2021 Not Available [facility] 4 23:47:36 Vertebral artery occlusion 864958557 Active 2021 Not Available [facility] 4 23:47:36 Aneurysm of middle cerebral artery 600150843 Active 2021 Not Available [facility] 4 23:47:36 Low blood pressure 02812300 Active 2021 Not Available [facility] 4 23:47:36 Chronic respiratory failure 64668875 Active 2021 Not Available [facility] 4 23:47:36 Hypothyroidis m 76636792 Active 2021 Not Available [facility] 4 23:47:36 Diabetes mellitus 18696227 Active 2021 Not Available [facility] 4 23:47:36 Anemia 937416441 Active 2021 Not Available [facility] 4 23:47:36 Vitamin D deficiency 84060429 Active 2021 Not Available [facility] 4 23:47:36 Paroxysmal atrial fibrillation 002546806 Active 2021 Not Available [facility] 4 23:47:36 Falls 498464524 Active 2021 Not Available [facility] 4 23:47:36 Coronary arteriosclero sis 00967685 Active 2021 Not Available [facility] 4 23:47:36 Obesity 684249653 Active 2021 Not Available [facility] 4 23:47:36 Obstructive sleep apnea syndrome 52999490 Active 2021 Not Available [facility] 4 23:47:36 Essential hypertension 45555352 Active 2021 Not Available [facility] 4 23:47:36 Gastroesophag eal reflux disease without esophagitis 465336878 Active 2021 Not Available [facility] 4 23:47:36 Congestive heart failure 02952686 Active 2021 Not Available [facility] 4 23:47:36 Fibromyalgia 818965361 Active 2021 Not Available [facility] 4 23:47:36 Mixed hyperlipidemi a 252831599 Active 2021 Not Available [facility] 4 23:47:36 Gout 21581792 Active 2021 Not Available [facility] 4 23:47:36 Closed fracture of hip 570198715 Active 2022 Not Available [facility] 4 23:47:36 Nausea 168365891 Active 2023 Not Available [facility] 4 23:47:36 Irritable bowel syndrome with diarrhea 275749924 Active 2023 Not Available [facility] 4 23:47:36 Notes:Some problems listed i n Documents: #[id number], #[id number], #[id number] could not be added to this patient's chart. Please review these documents and add these problems to the patient's chart manually as needed. Problem Notes None recorded. Procedures Surgical History Date Name Laterality Status Provider Name and Address Organization Details Recorded Time appendectomy completed JAMAICASA CHAO, [employer] [address], [address], [place], [address], [facility] 09/05/2021 14:35:03 Cholecystectomy completed JAMAICA BRIANROSALBA, [employer] [address], [address], [place], [address], [facility] 09/05/2021 14:35:12 hysterectomy completed JAMAICA JEREMIE, [employer] OFF[employer] [address], [address], [place], [address], [facility] 09/05/2021 14:35:20 procedure on heart completed JORDAN CHAO, [employer]ING OFF[employer] [address], [address], [place], [address], [facility] 09/05/2021 14:36:04 total shoulder replacement completed JAMAICASA CHAO, [employer] [address], [address], [place], [address], [facility] 09/05/2021 14:36:27 procedure on vein completed JAMAICASA CHAO, [employer]ING OFF[employer]ER [address], [address], [place], [address], [facility] 09/05/2021 14:36:48 operation on stomach completed JAMAICA CHAO, [employer]ING OFF[employer]ER [address], [address], [place], [address], [facility] 09/05/2021 14:37:08 Imaging Results None recorded. Procedure Notes None recorded. Medical Equipment None Reported. Allergies Allergen ID Allergen Name Allergen Category Reaction Reaction Severity Criticality Documentation Date Start Date Code Code System Note Provider Name and Address Organization Details Recorded Time 94437 morphine medicatio n Not available Not available Not available 09/05/2021 7052 RxNorm Not Available Not Available Not Available 08547 Lyrica medicatio n Not available Not available Not available 09/05/2021 54071 1 RxNorm Not Available Not Available Not Available Medications Name Sig Start Date Stop Date Status Note LastModified by Organization Details LastModified Time tramadol 50 mg tablet Take 1 tablet every 6 hours by oral route as needed. 023 active Not Available Not Available Not Avai lable Vitals Date Recorded Body height Body temperature Respiratory rate Heart rate Oxygen saturation Oxygen saturation in Arterial blood by Pulse oximetry Systolic blood pressure Diastolic blood pressure Provider Name and Address Organization Details Last Updated DateTime 4 160.02 cm 98.3 [degF] 18 /min 97 /min 97 % 97 % 128 mm[Hg] 61 mm[Hg] YUNG CALVILLO [address] [facility], [address], [place], [address], [facility] 4 13:10:16 Date Recorded Body height Provider Name an d Address Organization Details Last Updated DateTime 05/01/2023 160.02 cm YUNG CALVILLO [address] [place] [address], [address], [place], [address], [facility] 05/01/2023 15:43:18 Date Recorded Body height Body temperature Heart rate Respiratory rate Systolic blood pressure Diastolic blood pressure Provider Name and Address Organization Details Last Updated DateTime 4 160.02 cm 98 [degF] 77 /min 17 /min 130 mm[Hg] 72 mm[Hg] YUNG CALVILLO [address] [place] [address], [address], [place], [address], [facility] 4 13:03:17 Date Recorded Body height Body temperature Respiratory rate Heart rate Oxygen saturation Oxygen saturation in Arterial blood by Pulse oximetry Systolic blood pressure Diastolic blood pressure Provider Name and Address Organization Details Last Updated DateTime 4 160.02 cm 97.9 [degF] 18 /min 87 /min 96 % 96 % 122 mm[Hg] 72 mm[Hg] YUNG CALVILLO [address] [facility], [address], [place], [address], [facility] 4 00:16:06 Social History Question Answer Notes LastModified by Organizat ion Details LastModified Time Tobacco Smoking Status Former Smoker quit about 1999 Verna Barney MD [address] [facility], [address], [place], [address], [facility] 02/19/2023 18:54:47 Do You Have An Advance Directive? Yes Information not available 02/13/2023 What Is Your Level Of Alcohol Consumption? None Information not available 09/05/2021 What Is Your Level Of Caffeine Consumption? Occasional Information not available 09/05/2021 What Is Your Code Status? DNR/DNI DNH Information not available 02/13/2023 Where Do You Live? Multi[place] Home Alone, Has A Lift Information not available 02/19/2023 Legal Guardian? No Informati on not available 09/05/2021 Do You Have A Medical Power Of Ell Teacher? Yes HCP On File Information not available 09/05/2021 What Was The Date Of Your Most Recent Tobacco Screening? 02/19/2023 Information not available 02/19/2023 Do You Have An Out Of Hospital DNR? Yes Information not available 04/12/2023 What Is Your Relationship Status? In 2006 Information not available 02/19/2023 How Much Tobacco Do You Smoke? 1 PPD Information not available 02/19/2023 Do You Use Any Illicit Or Recreational Drugs? No Information not available 09/05/2021 Has Tobacco Cessation Counseling Been Provided? No Information not available 09/05/2021 How Many Years Have You Smoked Tobacco? 66 Information not available 02/19/2023 Do You Have Any Dietary Restrictions? No Information not available 09/05/2021 Do You Or Have You Ever Used Any Other Forms Of Tobacco Or Nicotine? No Information not available 09/05/2021 Sex: Female Functional Status None recorded. Mental Status None recorded. Family History Relationship Description Onset Age of this Age Resolved Age Notes LastModified by Organization Details LastModified Time Mother Malignant tumor of colon [email or web address] Not available 09/05/2021 14:20:39 Sister Malignant tumor of colon [email or web address] Not available 09/05/2021 14:20:39 Sister Leukemia [email or web address] Not available 09/05/2021 14:21:17 Father Heart failure [email or web address] Not available 09/05/2021 14:20:58 Medical History No medical history recorded. Gynecological HistoryNo gynecological history recorded. Obstetrics History GPAL:G 0 P 0 0 0 0 Immunizations Vaccine Type Date Status Note Provider Nam e and Address Organization Details Recorded Time COVID-19, mRNA, LNP-S, PF, 100 mcg/0.5mL dose or 50 mcg/0.25mL dose 1 completed Not Available [facility] 04/08/2023 23:47:37 COVID-19, mRNA, LNP-S, PF, 100 mcg/0.5mL dose or 50 mcg/0.25mL dose 2 completed Not Available [facility] 04/08/2023 23:47:37 Tdap 6 completed Not Available [facility] 04/08/2023 23:47:37 Influenza, split virus, quadrivalent, preservative 1 completed Not Available [facility] 04/08/2023 23:47:37 pneumococcal polysaccharide PPV23 1 completed Not Available [facility] 04/08/2023 23:47:37 pneumococcal polysaccharide PPV23 9 completed Not Available [facility] 04/08/2023 23:47:37 Pneumococcal conjugate PCV 13 0 completed Not Available [facility] 04/08/2023 23:47:37 zoster, unspecified formulation 8 completed Not Available [facility] 04/08/2023 23:47:37 zoster, unspecified formulation 9 completed Not Available [facility] 04/08/2023 23:47:37 zoster, unspecified formulation 6 completed Not Available [facility] 04/08/2023 23:47:37 Influenza, adjuvanted, quadrivalent, PF 3 completed Not Available [facility] 04/08/2023 23:47:37 Past Encounters Encounter ID Performer Location Encounter Start Date Encounter Closed Date Diagnosis/Indication Diagnosis SNOMED-CT Code Diagnosis ICD10 Code Diagnosis Note [id number] YUNG EGAN [address] [address] 09/05/2021 11:46:21 09/07/2021 08:06:00 Dizziness 069261126 R42 meclizine 12.5 mg bid prn monitor Low blood pressure 21349 003 I95.89 lasix 40 mg bid and losartan 50 mg qd discontinu ed in hospital for now monitor b/p and add back as able Vertebral artery occlusion 614383009 I65.02 needs to have a appt with outpatient [facility] neurosurge ry monitor Aneurysm o f middle cerebral artery 969934781 I67.1 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 will need to have outpatient appt with [facility] neurosurge [place] 353055343 R29.6 PT/OT eval and treat prn monitor for safety Essential hypertension 49748639 I10 ASA 81 mg qd diltiazem 120 mg qd carvedilol 25 mg bid lasix and losartan discontinu ed-watch to be able to add back monitor b/p and labs Coronary arteriosclerosis 58535648 I25.10 nitro 0.4 mg SL q 5 minutes x3 atorvastat in 40 mg qd ezetimibe 10 mg qd eliquis 5 mg bid ASA 81 mg qd diltiazem 120 mg qd carvedilol 25 mg bid monitor Diabetes mellitus 951595 09 E11.9 carb control diet glucose check bid semaglutid e 1.5 mg sq weekly monitor for s/s of hypo/hyper glycemia monitor A1c Congestive heart failure 14360032 I50.89 was on lasix 40 mg bid-monito r for need to add back monitor weights and s/s of heart failure Chronic re spiratory failure 22234531 J96.10 secondary to COPD oxygen at 2 liters via ri fluticason e propion-sa lmeterol 500-50 mcg 1 inhalation bid spiriva 18 mcg 1 inhalation qd mucinex 600 mg bid prn albuterol neb 2.5 mg/3 ml q 4 hrs prn duo neb qid albuterol hfa 90 mcg 2 puffs q 4 hrs prn monitor for respirator y symptoms Anemia 178279594 D50.8 vitamin B12 1000 mcg IM q 4 weeks vitamin C 500 mg bid ferrous sulfate 325 mg qd monitor labs Fibromyalgia 361910650 M 79.7 duloxetine 30 mg qd meloxicam 7.5 mg qd tylenol 650 mg q 4 hrs prn monitor pain Gastroesop hageal reflux disease without esophagitis 608763087 K21.9 dexilant 30 mg qd dicyclomin e 10 mg qid prn carafate 1 gm q hs monitor for symptoms Hypothyroidism 06933418 E03.8 levothyrox ine 100 mcg qd monitor labs Mixed hyperlipidemia 267 802007 E78.2 atorvastat in 40 mg qd ezetimibe 10 mg qd questran 4 gms qid monitor labs Obesity 593800383 E66.9 encourage good choices cto consult as needed monitor Paroxysmal atrial fibrillation 458935559 I48.0 eliquis 5 mg bid carvedilol 25 mg bid diltiazem 120 mg qd monitor rate and rhythm Obstructiv e sleep apnea syndrome 14327717 G47.33 not on cpap/bipap uses oxygen at 2 liters via nc monitor Vitamin D deficiency 347 83689 E55.9 vitamin D3 1000 iu qd monitor labs Gout 23699090 M10.9 she notes she has gout on/off in bilateral great toes they are noted to be slightly red may need to give prednisone burst if continues monitor [id number] Efren Hobson MD [facility] [address] [address] 09/06/2021 09:47:43 09/11/2021 20:47:26 Dizziness 978959553 R42 see above continued on meclizine 12.5 mg bid prn monitor utilizatio n Low blood pressure 92269 003 I95.89 see HPIhtn/hyp o tensionnow with losartan and lasix heldcontin ued on coreg 25 mg bidmonitor bp and need to adjust Vertebral artery occlusion 073862551 I65.02 eval by neuro now onasa 81 mg qdlipitor 40 mg qdmonitor for sx Aneurysm o f middle cerebral artery 957471660 I67.1 see HPIright MCA aneurysm 4.6 mmto f/u with neurosurge rymonitor for sxupdate neurosurge ry with concernsmo nitor bp [place] 628157335 R29.6 PT OT eval and treatmonit or fall risk Essential hypertension 71801252 I10 medication s adjusted during hospitaliz ationnow oncoreg 25 mg biddiltiaz em 120 mg qdmonitor bp and need to adjust with lasix and losartan held Coronary arteriosclerosis 14668177 I25.10 at baseline added to PMHlipitor 40 mg qdasa 81 mg qdcoreg 25 mg bidmonitor for sxcards eval prn Diabetes mellitus 518592 09 E11.9 continue current medication smonitor blood glucose and need to adjust Congestive heart failure 84704012 I50.22 see abovecarry ing dxnow off lasixmonit or respirator y function and fluid status Anemia 737364169 D50.8 continue supplement smonitor cbciron studies prn Fibromyalgia 909476570 M 79.7 added to PMHcontinu e out patient meds Gastroesop hageal reflux disease without esophagitis 402419686 K21.9 stable on out patient medsmonito r sxupdate GI with concerns Hypothyroidism 20870299 E03.8 synthroid 100 mcg qdtsh prn Mixed hyperlipidemia 267 195197 E78.2 with baseline cadcontinu e statin and zetia Obesity 204090302 E66.09 dietary to eval Paroxysmal atrial fibrillation 274569012 I48.0 eliquis 5 mg bidcoreg 25 mg bidmonitor for rate control Obstructiv e sleep apnea syndrome 48803538 G47.33 added to PMHdoes not utilize cpap Chronic ob structive pulmonary disease 31323519 J41.1 baseline copd on O2 by 2 liters NC at baselineco ntinue out patient medsmonito r respirator y statuspulm onary eval prn [id number] YUNG EGAN [address] [address] 09/15/2021 13:21:28 09/19/2021 11:48:58 Dizziness 288386261 R42 meclizine 12.5 mg bid prn monitor Vertebral artery occlusion 742752005 I65.02 needs to have a appt with outpatient [facility] neurosurge ry monitor Aneurysm o f middle cerebral artery 962168359 I67.1 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 will need to have outpatient appt with [facility] neurosurge [facility] [place] 244952134 R29.6 PT/OT eval and treat prn monitor for safety Essential hypertension 93918807 I10 ASA 81 mg qd diltiazem 120 mg qd carvedilol 25 mg bid monitor b/p and labs Coronary arteriosclerosis 96657927 I25.10 nitro 0.4 mg SL q 5 minutes x3 atorvastat in 40 mg qd ezetimibe 10 mg qd eliquis 5 mg bid ASA 81 mg qd diltiazem 120 mg qd carvedilol 25 mg bid monitor Diabetes mellitus 645954 09 E11.9 carb control diet glucose check bid semaglutid e 1.5 mg sq weekly monitor for s/s of hypo/hyper glycemia monitor A1c Congestive heart failure 14054004 I50.89 not on diuretic at this time monitor weights and s/s of heart failure Chronic re spiratory failure 52654738 J96.10 secondary to COPD oxygen at 2 liters via ri fluticason e propion-sa lmeterol 500-50 mcg 1 inhalation bid spiriva 18 mcg 1 inhalation qd mucinex 600 mg bid prn albuterol neb 2.5 mg/3 ml q 4 hrs prn duo neb qid albuterol hfa 90 mcg 2 puffs q 4 hrs prn monitor for respirator y symptoms Anemia 483027190 D50.8 vitamin C 500 mg bid ferrous sulfate 325 mg qd monitor labs Fibromyalgia 801695786 M 79.7 duloxetine 30 mg qd meloxicam 7.5 mg qd tylenol 650 mg q 4 hrs prn monitor pain Gastroesop hageal reflux disease without esophagitis 395884476 K21.9 dexilant 30 mg qd dicyclomin e 10 mg qid prn carafate 1 gm q hs monitor for symptoms Hypothyroidism 62378880 E03.8 levothyrox ine 100 mcg qd monitor labs Mixed hyperlipidemia 267 719818 E78.2 atorvastat in 40 mg qd ezetimibe 10 mg qd questran 4 gms qid monitor labs Obesity 239873486 E66.9 encourage good choices cto consult as needed monitor Paroxysmal atrial fibrillation 912680349 I48.0 eliquis 5 mg bid carvedilol 25 mg bid diltiazem 120 mg qd monitor rate and rhythm Obstructiv e sleep apnea syndrome 90044078 G47.33 not on cpap/bipap uses oxygen at 2 liters via ri monitor Vitamin D deficiency 347 82354 E55.9 vitamin D3 1000 iu qd monitor labs Gout 37138858 M10.9 she notes she has gout on/off in bilateral great toes monitor Acute urin dom tract infection 142199320 N39.0 keflex 250 mg q 6 hrs x 3 days probiotic bid x 6 days monitor for resolution [id number] YUNG EGAN [facility] [address] [address] 09/18/2021 10:54:07 09/20/2021 15:18:56 Chronic respiratory failure 52004254 J96.10 secondary to COPD oxygen at 2 liters via ri fluticason e propion-sa lmeterol 500-50 mcg 1 inhalation bid spiriva 18 mcg 1 inhalation qd mucinex 600 mg bid prn albuterol neb 2.5 mg/3 ml q 4 hrs prn duo neb qid albuterol hfa 90 mcg 2 puffs q 4 hrs prn monitor for respirator y symptoms Essential hypertension 99655172 I10 ASA 81 mg qd eliquis 5 mg bid diltiazem 120 mg qd carvedilol 25 mg bid monitor b/p and labs [id number] RADHA YODER NP [facility] [address] [address] 09/21/2021 08:34:12 09/26/2021 14:28:17 Acute urinary tract infection 550381643 N39.0 keflex 250 mg q 6 hrs x 3 days completecl inically improvedMo nitor for sx. as outpt. Dizziness 157475510 R42 continue meclizine 12.5 mg bid prn monitor as outpt Aneurysm o f middle cerebral artery 284258482 I67.1 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continue asa and statinneed s outpatient appt with [facility] neuro[facility]ge [facility] [place] 321416290 R29.6 PT/OT eval and treat - meeting goals for d/c home monitor for safety as outpt Essential hypertension 85029105 I10 Prior issues low BP, taken off lasix 40 mg bid and losartan 50 mg qd in the hospitalNo issues with low BP hereCurren tly on: diltiazem 120 mg qd carvedilol 25 mg bid monitor b/p and labs as outpt. Coronary arteriosclerosis 61679388 I25.10 Continue current meds:nitro 0.4 mg SL q 5 minutes x3 atorvastat in 40 mg qd ezetimibe 10 mg qd eliquis 5 mg bid ASA 81 mg qd diltiazem 120 mg qd carvedilol 25 mg bid monitor VS, labs, CP status as outpt. Diabetes mellitus 599320 09 E11.9 Conitnue:c arb control diet semaglutid e 1.5 mg sq weekly monitor for s/s of hypo/hyper glycemia - no issues here monitor A1c Congestive heart failure 26004502 I50.89 not on diuretic at this time monitor weights and s/s of heart failure Chronic re spiratory failure 45355232 J96.10 secondary to COPDContin ue: oxygen at 2 liters via ri fluticason e propion-sa lmeterol 500-50 mcg 1 inhalation bid spiriva 18 mcg 1 inhalation qd mucinex 600 mg bid albuterol neb 2.5 mg/3 ml q 4 hrs prn duo neb qid albuterol hfa 90 mcg 2 puffs q 4 hrs prn monitor respirator y symptoms as outpt. Anemia 092378095 D50.8 Continue:v itamin C 500 mg bid ferrous sulfate 325 mg qd monitor CBC, s/s active bleeding as outpt. Fibromyalgia 232202821 M 79.7 Continue:d uloxetine 30 mg qd meloxicam 7.5 mg qd tylenol 650 mg q 4 hrs prn monitor pain Gastroesop hageal reflux disease without esophagitis 877098111 K21.9 Continue:d exilant 30 mg qd dicyclomin e 10 mg qid prn carafate 1 gm q hs monitor for symptoms Hypothyroidism 50442876 E03.8 continue levothyrox ine 100 mcg qd monitor labs Mixed hyperlipidemia 267 153059 E78.2 continue:a torvastati n 40 mg qd ezetimibe 10 mg qd questran 4 gms qid monitor labs Paroxysmal atrial fibrillation 082934475 I48.0 continue:e liquis 5 mg bid carvedilol 25 mg bid diltiazem 120 mg qd monitor as outpt Obstructiv e sleep apnea syndrome 11089010 G47.33 not on cpap/bipap uses oxygen at 2 liters via ri monitor Vitamin D deficiency 347 59533 E55.9 vitamin D3 1000 iu qd monitor labs [id number] CONNOR NOVAK [address] [place] [address], [place] [address] 02/13/2023 10:15:03 02/26/2023 10:04:21 [place] 426806677 R29.6 PT OT eval and treatfall precaution sfrequent safety checks Dizziness 467918034 R42 meclizine 12.5 mg bid prnmonitor as outpt Essential hypertension 57893583 I10 lasix 40 mg dailymonit or b/p and labs as outpt. Coronary arteriosclerosis 78439354 I25.10 nitro 0.4 mg SL q 5 minutes g8rykfriop atin 80 mg qdezetimib e 10 mg qdeliquis 5 mg bidASA 81 mg qdmonitor VS, labs, CP status as outpt. Diabetes mellitus 712887 09 E11.9 carb control dietsemagl utide 3 mg sq weeklymoni tor for s/s of hypo/hyper glycemiamo nitor A1c Congestive heart failure 03201016 I50.89 lasix 40 mg dailymonit or weights and s/s of heart failure Chronic re spiratory failure 97107889 J96.10 oxygen at 2 liters via ri fluticason e propion-sa lmeterol 500-50 mcg 1 inhalation bidspiriva 18 mcg 1 inhalation qdalbutero l neb 2.5 mg/3 ml q 4 hrs prnduo neb qidalbuter ol hfa 90 mcg 2 puffs q 4 hrs prnmonitor respirator y symptoms as outpt. Paroxysmal atrial fibrillation 932433510 I48.0 eliquis 5 mg bidtoprol 50 mg dailymonit or as outpt Anemia 226391089 D50.8 vitamin C 500 mg bidferrous sulfate 325 mg qdthiamine 100 mg znnupQ24 1000 om monthlymon itor CBC Fibromyalgia 860210459 M 79.7 duloxetine 30 mg qdtylenol 650 mg q 4 hrs prnmonitor pain Gastroesop hageal reflux disease without esophagitis 399646006 K21.9 dexilant 30 mg qddicyclom ine 10 mg qid prncarafat e 1 gm q hszofran 8 mg q12 hr prnmonitor for symptoms Hypothyroidism 76800261 E03.8 levothyrox ine 100 mcg qdmonitor labs Mixed hyperlipidemia 267 113189 E78.2 atorvastat in 80 mg qdezetimib e 10 mg qdmonitor labs Obstructiv e sleep apnea syndrome 14952193 G47.33 not on cpap/bipap uses oxygen at 2 liters via ri monitor Vitamin D deficiency 347 21005 E55.9 vitamin D3 1000 iu qd monitor labs Closed fra cture of hip 640213617 S72.001A followup with ortho in 2 weekstrama dol 50 mg q6hr prnmonitor surgical incision for s/s infection [id number] SARAH PETERSON NP [facility] [address] [place] [address] 02/15/2023 09:53:27 02/26/2023 11:30:23 Dizziness 127273159 R42 meclizine 25 mg tidmonitor as outpt Closed fra cture of hip 836425097 S72.001A followup with ortho in 2 weekstrama dol 50 mg q6hr prnmonitor surgical incision for s/s infection Congestive heart failure [id number] I50.89 lasix 40 mg dailymonit or weights and s/s of heart failure [id number] Verna Barney MD [facility] [address] [place] [address] 02/19/2023 13:15:20 02/26/2023 13:59:05 Falls [id number] R29.6 As above. Closed fra cture of hip [id number] S72.041D Poor cooperatio n with rehab.Very deconditio [place].Needs PT/OT for strengthen ing, balance, gait training, safety and function.C ontinue fall precaution s.Monitor for safety.Con tinue tramadol 50 mg q 6 hrs prnWill add APAP 1000 mg TID,Monito r surgical incision.F /U with ortho as planned Dizziness [id number] R42 Not clearly vertigo, could be orthostati c hypotensio n.Will check orthostati c vitals BID x 2 days.Tracy nue meclizine 25 mg TIDMonitor sxs Essential hypertension 23698683 I10 Good control lasix 40 mg qd and metoprolol 50 mg qd.Monitor BP and labs. Coronary arteriosclerosis 63012172 I25.10 No current sxs.Contin ue meds as above and NTG 0.4 mg SL q 5 minutes x3 prn, atorvastat in 80 mg qd, ezetimibe 10 mg qd and ASA 81 mg qdMonitor sxs and vital.F/U with cardio prn. Diabetes mellitus 342481 09 E11.9 In excellent control since here.Tracy nue semaglutid e 3 mg sq weekly and SSI.Will decrease fingerstic ks to fasting and monitor HgA1C q 3 months. Congestive heart failure 67171732 I50.89 Appears euvolemic. Continue meds as above.Urmila tor resp. status, fluid status, wts and labs. Chronic re spiratory failure 38950863 J96.11 At baseline.C ontinue supplement al O2 at 2 liters by OR.Duonebs are supposed to be qid scheduled, but written as prn, will change.Con tinue Advair 500/50 mcg BID, spiriva 18 mcg qd, albuterol nebs q 6 hrs prn, and albuterol HFA 90 mcg 2 puffs q 4 hrs prn.Monito r resp status. Paroxysmal atrial fibrillation 457018043 I48.0 Rate in good control on meds as above.Cont inue eliquis 5 mg BID for AC.Monitor HR and bleeding risk. Anemia 841698875 D50.8 With minimal drop post-op.Co ntinue FeSO4 325 mg qd with vitamin C 500 mg BID, thiamine 100 mg qd and vitamin B12 1000 mcg q monthMonit or labs. Fibromyalgia 957485348 M 79.7 Continue duloxetine 30 mg qdAlso currently on tramadol and APAP for hip fx.Monitor sxs. Gastroesop hageal reflux disease without esophagitis 163826746 K21.9 No current sxs.Contin ue omeprazole 20 mg qd and zofran 8 mg q 12 hrs prnMonitor for sxs Hypothyroidism 21359029 E03.8 Last TSH 4.82 in 11/2022 with nl FT4.Contin ue levothyrox ine 100 mcg qdMonitor labs prn Mixed hyperlipidemia 267 278680 E78.2 Continue atorvastat in 80 mg qd and ezetimibe 10 mg qdMonitor labs as outpt. Obstructiv e sleep apnea syndrome 04163530 G47.33 Intolerant of cpap/bipap Continue supplement al O2 as above.Urmila tor sats. Vitamin D deficiency 347 36366 E55.9 Continue vitamin D3 1000 IU qdMonitor labs as outpt. Aneurysm o f middle cerebral artery 196387363 I67.1 Hx of 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Saw neurosurg several times, imaging showed stable size.Decis ion for conservati ve tx due to other medical problems.W ould embolize only if sxs of severe [place]OR[place]. Nausea 355890022 R11.0 Pt. thinks from eye problem as it was there before fallContin ue Zofran 8 mg q 12 hrs prn.F/U with eye dr as planned.Wi ll have nursing try and figure out when appt is. Irritable bowel syndrome with diarrhea 796191041 K58.0 Continue dicyclomin e 10 mg qid prnPt. not interested in trying imodium.Mo nitor bowel habits. [id number] SARAH PETERSON, CON[place] [address] [address] 02/22/2023 12:34:39 02/26/2023 15:08:05 Congestive heart failure 27339842 I50.89 lasix 40 mg dailymonit or weights and s/s of heart failure Dizziness 041605779 R42 meclizine 25 mg tidmonitor as outpt Closed fra cture of hip 178423121 S72.001A followup with ortho in 2 weekstrama dol 50 mg q6hr prnmonitor surgical incision for s/s infection [id number] YUNG CALVILLO [address] [address] 02/26/2023 11:35:20 03/06/2023 12:35:17 Falls [id number] R29.6 PT OT eval and treatfall precaution sfrequent safety checks Closed fra cture of hip 527731053 S72.001A follow up with ortho in 2 weekstrama dol 50 mg q6hr prnmonitor surgical incision for s/s infection Dizziness 992521279 R42 meclizine 12.5 mg bid prnmonitor as outpt Essential hypertension 22143866 I10 stablelasi x 40 mg dailymonit or b/p and labs as outpt. Coronary arteriosclerosis 90166537 I25.10 02/26/23 denies chest discomfort nitro 0.4 mg SL q 5 minutes [id number] atin 80 mg qdezetimib e 10 mg qdeliquis 5 mg bidASA 81 mg qdmonitor VS, labs, CP status as outpt. Diabetes mellitus 826800 09 E11.9 stable readings under 150carb control dietsemagl utide 3 mg sq weeklymoni tor for s/s of hypo/hyper glycemiamo nitor A1c Congestive heart failure 14498539 I50.89 lasix 40 mg dailymonit or weights and s/s of heart failure Chronic re spiratory failure 96216450 J96.10 oxygen at 2 liters via nc fluticason e propion-sa lmeterol 500-50 mcg 1 inhalation bidspiriva 18 mcg 1 inhalation qdalbutero l neb 2.5 mg/3 ml q 4 hrs prnduo neb qidalbuter ol hfa 90 mcg 2 puffs q 4 hrs prnmonitor respirator y symptoms as outpt. Paroxysmal atrial fibrillation 015596112 I48.0 eliquis 5 mg bidtoprol 50 mg dailymonit or as outpt Gastroesop hageal reflux disease without esophagitis 909115419 K21.9 dexilant 30 mg qddicyclom ine 10 mg qid prncarafat e 1 gm q hszofran 8 mg q12 hr prnmonitor for symptoms [id number] YUNG CALVILLO JESSIKA [address] [place] [address] [place] [address] 02/28/2023 09:39:57 03/06/2023 13:35:24 Closed fracture of hip 868297039 S72.001A staple intactappt to remove later today.tram adol 50 mg q6hr prnmonitor surgical incision for s/s infection Dizziness 424960704 R42 meclizine 12.5 mg bid prnmonitor as outpt Essential hypertension 56700121 I10 stablelasi x 40 mg dailymonit or b/p and labs as outpt. Coronary arteriosclerosis 40042061 I25.10 02/26/23 denies chest discomfort nitro 0.4 mg SL q 5 minutes [id number] atin 80 mg qdezetimib e 10 mg qdeliquis 5 mg bidASA 81 mg qdmonitor VS, labs, CP status as outpt. Diabetes mellitus 407997 09 E11.9 stable readings under 150carb control dietsemagl utide 3 mg sq weeklymoni tor for s/s of hypo/hyper glycemiamo nitor A1c Congestive heart failure 61886611 I50.89 lasix 40 mg dailymonit or weights and s/s of heart failure Chronic re spiratory failure 77329918 J96.10 oxygen at 2 liters via ri fluticason e propion-sa lmeterol 500-50 mcg 1 inhalation bidspiriva 18 mcg 1 inhalation qdalbutero l neb 2.5 mg/3 ml q 4 hrs prnduo neb qidalbuter ol hfa 90 mcg 2 puffs q 4 hrs prnmonitor respirator y symptoms as outpt. Paroxysmal atrial fibrillation 592049483 I48.0 eliquis 5 mg bidtoprol 50 mg dailymonit or as outpt Gastroesop hageal reflux disease without esophagitis 339414887 K21.9 dexilant 30 mg qddicyclom ine 10 mg qid prncarafat e 1 gm q hszofran 8 mg q12 hr prnmonitor for symptoms [id number] YUNG CALVILLO JESSIKA [address] [place] [address] 03/04/2023 11:36:26 03/06/2023 14:27:58 Closed fracture of hip 759570125 S72.001A anisa removed 02/28/11tra madol 50 mg q6hr prnmonitor surgical incision for s/s infection Dizziness 517156977 R42 reports that she has not been working with PT due to dizziness. Patient encouraged to utilized prnnursing to assess for dizziness. meclizine 12.5 mg bid prnmonitor as outpt Essential hypertension 56789380 I10 stablelasi x 40 mg dailymonit or b/p and labs as outpt. Congestive heart failure 87649308 I50.89 lasix 40 mg dailymonit or weights and s/s of heart failuretra ce edema noted to ble. Chronic re spiratory failure 25903833 J96.10 oxygen at 2 liters via ri fluticason e propion-sa lmeterol 500-50 mcg 1 inhalation bidspiriva 18 mcg 1 inhalation qdalbutero l neb 2.5 mg/3 ml q 4 hrs prnduo neb qidalbuter ol hfa 90 mcg 2 puffs q 4 hrs prnmonitor respirator y symptoms as outpt. Paroxysmal atrial fibrillation 220898238 I48.0 eliquis 5 mg bidtoprol 50 mg dailymonit or as outpt Gastroesop hageal reflux disease without esophagitis 442651194 K21.9 dexilant 30 mg qddicyclom ine 10 mg qid prncarafat e 1 gm q hszofran 8 mg q12 hr prnmonitor for symptoms [id number] YUNG CALVILLO [address] [place] [address] 03/07/2023 10:08:49 03/11/2023 15:58:17 Closed fracture of hip 451762902 S72.001A right hip with minimal swelling, no s/sx of infection. anisa removed 02/28/11tra madol 50 mg q6hr prnmonitor surgical incision for s/s infection Dizziness 627809583 R42 reports that she has not been working with PT due to dizziness. Patient is encouraged to take prn meclizine prior to therapy.Hung kimball encouraged to utilized prnnursing to assess for dizziness. meclizine 12.5 mg bid prnmonitor as outpt Essential hypertension 60351877 I10 stablelasi x 40 mg dailymonit or b/p and labs as outpt. Congestive heart failure 34793786 I50.89 lasix 40 mg dailymonit or weights and s/s of heart failuretra ce edema noted to ble. Chronic re spiratory failure 24262436 J96.10 oxygen at 2 liters via ri fluticason e propion-sa lmeterol 500-50 mcg 1 inhalation bidspiriva 18 mcg 1 inhalation qdalbutero l neb 2.5 mg/3 ml q 4 hrs prnduo neb qidalbuter ol hfa 90 mcg 2 puffs q 4 hrs prnmonitor respirator y symptoms as outpt. Paroxysmal atrial fibrillation 778391218 I48.0 eliquis 5 mg bidtoprol 50 mg dailymonit or as outpt Gastroesop hageal reflux disease without esophagitis 715841171 K21.9 dexilant 30 mg qddicyclom ine 10 mg qid prncarafat e 1 gm q hszofran 8 mg q12 hr prnmonitor for symptoms [id number] YUNG CALVILLO [address] [place], [place] [address] [place]I SINHA [address] 03/12/2023 07:48:41 03/15/2023 08:33:06 Closed fracture of hip 329974998 S72.001A right hip with minimal swelling, no s/sx of infection. anisa removed 02/28/11tra madol 50 mg q6hr prnmonitor surgical incision for s/s infection Dizziness 436305047 R42 reports improvemen tmeclizine prior to therapy.Hung kimball encouraged to utilized prnnursing to assess for dizziness. meclizine 12.5 mg bid prnmonitor as outpt Essential hypertension 29677783 I10 stablelasi x 40 mg dailymonit or b/p and labs as outpt. Congestive heart failure 18547780 I50.89 lasix 40 mg dailymonit or weights and s/s of heart failuretra ce edema noted to ble. Chronic re spiratory failure 30991557 J96.10 oxygen at 2 liters via nc fluticason e propion-sa lmeterol 500-50 mcg 1 inhalation bidspiriva 18 mcg 1 inhalation qdalbutero l neb 2.5 mg/3 ml q 4 hrs prnduo neb qidalbuter ol hfa 90 mcg 2 puffs q 4 hrs prnmonitor respirator y symptoms as outpt. Paroxysmal atrial fibrillation 576434579 I48.0 eliquis 5 mg bidtoprol 50 mg dailymonit or as outpt Gastroesop hageal reflux disease without esophagitis 473249138 K21.9 dexilant 30 mg qddicyclom ine 10 mg qid prncarafat e 1 gm q hszofran 8 mg q12 hr prnmonitor for symptoms [id number] YUNG CALVILLO RUSTY JESSIKA [address] [place] [address] [place] [address] 03/15/2023 08:18:00 03/20/2023 11:41:33 Closed fracture of hip 061925836 S72.001A right hip with minimal swelling, no s/sx of infection. anisa removed 02/28/11tra madol 50 mg q6hr prnmonitor surgical incision for s/s infection Dizziness 382627298 R42 meclizine 12.5 mg bid prnmonitor as outpt Essential hypertension 61965333 I10 stablelasi x 40 mg dailymonit or b/p and labs as outpt. Congestive heart failure 96236202 I50.89 lasix 40 mg dailymonit or weights and s/s of heart failure2+ edema noted to lower ankles Chronic re spiratory failure 85143856 J96.10 O2 dependento xygen at 2 liters via nc fluticason e propion-sa lmeterol 500-50 mcg 1 inhalation bidspiriva 18 mcg 1 inhalation qdalbutero l neb 2.5 mg/3 ml q 4 hrs prnduo neb qidalbuter ol hfa 90 mcg 2 puffs q 4 hrs prnmonitor respirator y symptoms as outpt. Paroxysmal atrial fibrillation 508516725 I48.0 eliquis 5 mg bidtoprol 50 mg dailymonit or as outpt Gastroesop hageal reflux disease without esophagitis 040466830 K21.9 dexilant 30 mg qddicyclom ine 10 mg qid prncarafat e 1 gm q hszofran 8 mg q12 hr prnmonitor for symptoms [id number] YUNG CALVILLO [address] [place] [address] [place] [address] 03/18/2023 07:52:24 04/02/2023 15:36:02 Closed fracture of hip 917223920 S72.001A right hip with minimal swelling, no s/sx of infection. anisa removed 02/28/11tra madol 50 mg q6hr prnmonitor surgical incision for s/s infection Dizziness 462748195 R42 meclizine 12.5 mg bid prnmonitor as outpt Essential hypertension 98209612 I10 stablelasi x 40 mg dailymonit or b/p and labs as outpt. Congestive heart failure 93205327 I50.89 weight today 204 up 3 lbs from 201 on 03/16- may need to give additional lasix , will monitorlas ix 40 mg dailymonit or weights and s/s of heart failure2+ edema noted to lower ankles Chronic re spiratory failure 45278112 J96.10 O2 dependento xygen at 2 liters via nc fluticason e propion-sa lmeterol 500-50 mcg 1 inhalation bidspiriva 18 mcg 1 inhalation qdalbutero l neb 2.5 mg/3 ml q 4 hrs prnduo neb qidalbuter ol hfa 90 mcg 2 puffs q 4 hrs prnmonitor respirator y symptoms as outpt. Paroxysmal atrial fibrillation 778682982 I48.0 eliquis 5 mg bidtoprol 50 mg dailymonit or as outpt [id number] YUNG CALVILLO [address] [address] 03/25/2023 11:40:05 03/27/2023 15:02:29 Closed fracture of hip 101436305 S72.001A right hip with minimal swelling, no s/sx of infection. anisa removed 02/28/11tra madol 50 mg q6hr prn Dizziness 423312166 R42 meclizine 12.5 mg bid prnmonitor as outpt Essential hypertension 59867598 I10 stablelasi x 40 mg dailymonit or b/p and labs as outpt. Congestive heart failure 14101671 I50.89 lasix 40 mg dailymonit or weights and s/s of heart failure1-2 + edema noted to lower ankles Chronic re spiratory failure 32597102 J96.10 supplement al O2 at 2 liters via ri fluticason e propion-sa lmeterol 500-50 mcg 1 inhalation bidspiriva 18 mcg 1 inhalation qdalbutero l neb 2.5 mg/3 ml q 4 hrs prnduo neb qidalbuter ol hfa 90 mcg 2 puffs q 4 hrs prnmonitor respirator y symptoms as outpt. Paroxysmal atrial fibrillation 101570788 I48.0 eliquis 5 mg bidtoprol 50 mg dailymonit or as outpt [id number] YUNG CALVILLO [address] [address] 04/01/2023 07:59:04 04/04/2023 13:27:21 Closed fracture of hip 928129864 S72.001A right hip with minimal swelling, no s/sx of infection. anisa removed 02/28/11tra madol 50 mg q6hr prn Congestive heart failure 93332211 I50.89 lasix 40 mg dailymonit or weights and s/s of heart failure1-2 + edema noted to lower anklesenco uraged legs elevations and oksana bandages to bilateral lower extremitie s. Falls 669196625 R29.6 PT/OT prnfall precaution sfrequent safety checks [id number] YUNG CALVILLO [address] [address] 04/04/2023 14:04:47 04/08/2023 12:33:49 Closed fracture of hip 089066985 S72.001A s/p fall 02/10 with right hip repair.tra madol 50 mg q6hr prnpatient stays in bed, refuses OOB per nursing staff. Congestive heart failure 87939948 I50.89 lasix 40 mg dailymonit or weights and s/s of heart failure1-2 + edema noted to lower anklesenco uraged legs elevations and oksana bandages to bilateral lower extremitie s. Falls 280034841 R29.6 fall precaution sfrequent safety checks [id number] YUNG CALVILLO [address] [address] 04/10/2023 08:45:25 04/11/2023 18:26:36 Closed fracture of hip 702617750 S72.001A s/p fall 02/10 with right hip repair.tra madol 50 mg q6hr prnpatient stays in bed, refuses OOB per nursing staff.04/09: patient got OOB yesterday per her request. Congestive heart failure 68115003 I50.89 lasix 40 mg dailymonit or weights and s/s of heart failure1-2 + edema noted to lower anklesenco uraged legs elevations and oksana bandages to bilateral lower extremitie s. Falls 075559154 R29.6 fall precaution sfrequent safety checks [id number] Verna Barney MD [address] [address] 04/12/2023 18:36:04 04/16/2023 11:21:31 Closed fracture of hip 428749917 S72.041D Has recovered from fx, but mobility is still an issue.Will have lots of help at home, but not overnight. Will need to be monitored closely outpt for safety.No further f/u with ortho, unless needed. Congestive heart failure 74536225 I50.89 Continues at baseline.C ontinue meds as above.Urmila tor resp. status, fluid status, wts and labs. Falls 802287630 R29.6 Continue fall precaution s.Monitor for safety. Dizziness 799422714 R42 No c/o todayConti nue meclizine 25 mg TIDMonitor sxs Nausea 788659224 R11.0 Seems better per pt.Continu e Zofran 8 mg q 12 hrs prn.Monito r Essential hypertension 01657788 I10 Good control on lasix 40 mg qd and metoprolol 50 mg qd.Monitor BP and labs. Coronary arteriosclerosis 75398289 I25.10 No current sxs.Contin ue meds as above and NTG 0.4 mg SL q 5 minutes x3 prn, atorvastat in 80 mg qd, ezetimibe 10 mg qd and ASA 81 mg qdMonitor sxs and vital.F/U with cardio prn. Diabetes mellitus 937571 09 E11.9 In excellent control since here.Tracy nue semaglutid e 3 mg sq weekly.Poli l d/c SSI and monitor sugars prn. Chronic re spiratory failure 56385121 J96.11 Continues at baseline.C ontinue supplement al O2 at 1-2 liters by OR to maintain sats 90-94%Duon ebs qid prn, Advair 500/50 mcg BID, spiriva 18 mcg qd, albuterol nebs q 6 hrs prn, and albuterol HFA 90 mcg 2 puffs q 4 hrs prn.Monito r resp status. Paroxysmal atrial fibrillation 159320107 I48.0 Rate in good control on meds as above.Cont inue eliquis 5 mg BID for AC.Monitor HR and bleeding risk. Anemia 921504204 D50.8 With minimal drop post-op.Co ntinue FeSO4 325 mg qd with vitamin C 500 mg BID, thiamine 100 mg qd and vitamin B12 1000 mcg q monthMonit or labs. Fibromyalgia 290642489 M 79.7 Continue duloxetine 30 mg qdMonitor sxs. Gastroesop hageal reflux disease without esophagitis 188262463 K21.9 No current sxs.Contin ue omeprazole 20 mg qd and zofran 8 mg q 12 hrs prnMonitor for sxs Hypothyroidism 37456779 E03.8 Last TSH 4.82 in 11/2022 with nl FT4.Contin ue levothyrox ine 100 mcg qdMonitor labs prn Mixed hyperlipidemia 267 523648 E78.2 Continue atorvastat in 80 mg qd and ezetimibe 10 mg qdMonitor labs as outpt. Obstructiv e sleep apnea syndrome 02601203 G47.33 Intolerant of cpap/bipap Continue supplement al O2 as above.Urmila tor sats. Vitamin D deficiency 347 88558 E55.9 Continue vitamin D3 1000 IU qdMonitor labs as outpt. Aneurysm o f middle cerebral artery 644063297 I67.1 Hx of 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Saw neurosurg several times, imaging showed stable size.Decis ion for conservati ve tx due to other medical problems.W ould embolize only if sxs of severe [place]. Irritable bowel syndrome with diarrhea 905576273 K58.0 Continue dicyclomin e 10 mg qid prnMonitor bowel habits. [id number] YUNG CALVILLO JESSIKA [address] [place] [address] [place] [address] 04/17/2023 07:50:06 04/23/2023 10:23:47 Closed fracture of hip 138243811 S72.001A s/p fall 02/10 with right hip repair.tra madol 50 mg q6hr prnpatient stays in bed, refuses OOB per nursing staff.04/09: patient got OOB yesterday per her request. Congestive heart failure 53790762 I50.89 lasix 40 mg dailymonit or weights and s/s of heart failure1-2 + edema noted to lower anklesenco uraged legs elevations and oksana bandages to bilateral lower extremitie s. Falls 359740593 R29.6 fall precaution sfrequent safety checks Essential hypertension 56919451 I10 stablelasi x 40 mg dailymonit or b/p and labs as outpt. Diabetes mellitus 769057 09 E11.9 stable readings under 150carb control dietsemagl utide 3 mg sq weeklymoni tor for s/s of hypo/hyper glycemiamo nitor A1c [id number] RALPH RIDER [address] [address] 04/24/2023 10:07:25 04/26/2023 13:02:59 Closed fracture of hip 993158578 S72.001A s/p fall 02/10 with right hip repair.tra madol 50 mg q6hr prnpatient stays in bed, refuses OOB per nursing staff.04/09: patient got OOB yesterday per her request. Congestive heart failure 78696645 I50.89 lasix 40 mg dailyweigh t stablemoni tor weights and s/s of heart failuretra ce edemaencou raged legs elevations and oksana bandages to bilateral lower extremitie s. Falls 143951326 R29.6 fall precaution sfrequent safety checks Essential hypertension 90793166 I10 stablelasi x 40 mg dailymonit or b/p and labs as outpt. Diabetes mellitus 108736 09 E11.9 stable readings under 150carb control dietsemagl utide 3 mg sq weeklymoni tor for s/s of hypo/hyper glycemiamo nitor A1c [id number] YUNG CALVILLO [address] [address] 05/01/2023 09:21:18 05/03/2023 14:11:33 Closed fracture of hip 590065559 S72.001A s/p fall 02/10 with right hip repair.tra madol 50 mg q6hr prnpatient stays in bed, refuses OOB per nursing staff.04/09: patient got OOB yesterday per her request. Congestive heart failure 72416614 I50.89 lasix 40 mg dailyweigh t stablemoni tor weights and s/s of heart failuretra ce edemaencou raged legs elevations and oksana bandages to bilateral lower extremitie s. Falls 685471691 R29.6 fall precaution sfrequent safety checks Essential hypertension 36051699 I10 stablelasi x 40 mg dailymonit or b/p and labs as outpt. Diabetes mellitus 359588 09 E11.9 stable readings under 150carb control dietsemagl utide 3 mg sq weeklymoni tor for s/s of hypo/hyper glycemiamo nitor A1c [id number] RALPH RIDER, [employer] [address] [address] 05/08/2023 11:17:04 05/13/2023 16:10:41 Closed fracture of hip 552263486 S72.001A s/p fall 02/10 with right hip repair.tra madol 50 mg q6hr Congestive heart failure 93784889 I50.89 lasix 40 mg dailyweigh t stablemoni tor weights and s/s of heart failuretra ce edemaencou raged legs elevations and oksana bandages to bilateral lower extremitie s. Falls 909599787 R29.6 fall precaution sfrequent safety checks Essential hypertension 80935499 I10 stablelasi x 40 mg dailymonit or b/p and labs as outpt. Diabetes mellitus 164096 09 E11.9 stable readings under 150carb control dietsemagl utide 3 mg sq weeklymoni tor for s/s of hypo/hyper glycemiamo nitor A1c [id number] YUNG CALVILLO [address] [address] 05/15/2023 08:19:24 05/20/2023 15:40:14 Closed fracture of hip 966159034 S72.001A s/p fall 02/10 with right hip repair.tra madol 50 mg q6hr Congestive heart failure 61023565 I50.89 lasix 40 mg dailyweigh t stablemoni tor weights and s/s of heart failuretra ce edemaencou raged legs elevations and oksana bandages to bilateral lower extremitie s. Falls 126298546 R29.6 fall precaution sfrequent safety checks Essential hypertension 82382227 I10 stablelasi x 40 mg dailymonit or b/p and labs as outpt. Diabetes mellitus 538793 09 E11.9 stable readings under 150carb control dietsemagl utide 3 mg sq weeklymoni tor for s/s of hypo/hyper glycemiamo nitor A1c [id number] YUNG CALVILLO [address] [address] 05/17/2023 15:20:25 05/21/2023 12:20:46 Closed fracture of hip 477685224 S72.001A s/p fall 02/10 with right hip repair.tra madol 50 mg q6hr Congestive heart failure 22872987 I50.89 lasix 40 mg dailyweigh t stable tor weights and s/s of heart failuretra ce edemaencou raged legs elevations and oksana bandages to bilateral lower extremitie s. Falls 756682061 R29.6 fall precaution sfrequent safety checks Essential hypertension 87505827 I10 lasix 40 mg daily Diabetes mellitus 025977 09 E11.9 semaglutid e 3 mg sq weekly tor for s/s of hypo/hyper glycemiamo nitor A1c Anemia 031851245 D50.8 Continue FeSO4 325 mg qd with vitamin C 500 mg BID, thiamine 100 mg qd and vitamin B12 1000 mcg q Aneurysm o f middle cerebral artery 272892024 I67.1 Ccarrying dx Chronic re spiratory failure 53723256 J96.11 supplement al O2 at 2 liters via ncfluticas one propion-sa lmeterol 500-50 mcg 1 inhalation bidspiriva 18 mcg 1 inhalation qdalbutero l neb 2.5 mg/3 ml q 4 hrs prnduo neb qidalbuter ol hfa 90 mcg 2 puffs q 4 hrs prn Coronary arteriosclerosis 61316788 I25.10 nitro 0.4 mg SL q 5 minutes [id number] atin 80 mg qdezetimib e 10 mg qdeliquis 5 mg bidASA 81 mg qdmonitor VS, labs Dizziness 691291738 R42 meclizine 12.5 mg bid prnmonitor as outpt Gastroesop hageal reflux disease without esophagitis 850178400 K21.9 dexilant 30 mg qddicyclom ine 10 mg qid prncarafat e 1 gm q hszofran 8 mg q12 hr prn Fibromyalgia 980790237 M 79.7 Continue duloxetine 30 mg qd Gout 00377510 M10.9 carrying dx Hypothyroidism 45103706 E03.8 Continue levothyrox ine 100 mcg qd Irritable bowel syndrome with diarrhea 682500867 K58.0 Continue dicyclomin e 10 mg qid prn Mixed hyperlipidemia 267 493544 E78.2 Continue atorvastat in 80 mg qd and ezetimibe 10 mg qd Nausea [id number] R11.0 Continue Zofran 8 mg q 12 hrs prn. Obstructiv e sleep apnea syndrome [id number] G47.33 Intolerant of cpap/bipap Continue supplement al O2 as above. Paroxysmal atrial fibrillation [id number] I48.0 eliquis 5 mg bidtoprol 50 mg dailymonit or as outpt Vitamin D deficiency [id number] E55.9 Continue vitamin D3 1000 IU qdMonitor labs as outpt. 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 needs to have a appt with outpatient [facility] Health Concerns Section Related Observation LastModified by Organization Detai ls LastModified Time None Recorded Concern Status LastModified by Organization Details LastModified Time None Recorded Advance Directives Directive Y: Payers Encounter Date Sequence Insurance Name Policy Number Policy [place] Covered Member ID [place] Member ID Guarantor Name 04/24/2023 2 [place] [employer] Carly Hotte [id number] Carly Hotte 04/24/2023 1 [facility] - DUAL ELIGIBLE - [employer] - SENIOR PLAN (MEDICARE REPLACEMENT/A DVANTAGE - HMO) Carly Hotte [id number] Carly Hotte 05/01/2023 2 [place] [employer] Carly Hotte [id number] Carly Hotte 05/01/2023 1 [facility] - DUAL ELIGIBLE - [employer]ARE - SENIOR PLAN (MEDICARE REPLACEMENT/A DVANTAGE - HMO) Carly Hotte [id number] Carly Hotte 05/08/2023 2 [place] [employer] Carly Hotte [id number] Carly Hotte 05/08/2023 1 [facility] - DUAL ELIGIBLE - [employer] - SENIOR PLAN (MEDICARE REPLACEMENT/A DVANTAGE - HMO) Carly Hotte [id number] Carly Hotte 05/15/2023 2 MED[place]: [employer] Carly Hotte [id number] Carly Hotte 05/15/2023 1 [facility] - DUAL ELIGIBLE - [employer] - SENIOR PLAN (MEDICARE REPLACEMENT/A DVANTAGE - HMO) Carly Hotte [id number] Carly Hotte 05/17/2023 2 MEDICARE [place]: [employer] Carly Hotte [id number] Carly Unger 05/17/2023 1 [facility] - DUAL ELIGIBLE - [facility] - SENIOR PLAN (MEDICARE REPLACEMENT/A DVANTAGE - HMO) Carly Unger [id number] Carly Unger Notes Date Note Type Note Provider Name and Address Organization Details Recorded Time 04/24/2023 text/html 82 yr old female with PMH includes HTN, Afib on Eliquis, CAD s/p CABG and angioplasty, CHF combined type, COPD on home O2, AODM, GERD, gait instability, hypothyroidism, anemia, HLD, CRISTA intolerant of CPAP, gout, obesity, chronic pain, vitamin D deficiency, first degree AV block, lumbar spondylosis, fibromyalgia, hx of c.diff, hx of R MCA bifurcation aneurysm, and hx of AAA.Admitted to for rehab after she had a fall at home and went to the hospital 02/10, she was found to have a fractured hip and underwent repair of the right hip. Patient seen today for acute rounding visit.- She is stable, currently lying in be breathing easy and unlabored- there is no acute nursing concerns. YUNG CALVILLO [address] [facility], [address], [place], [address], [employer] 04/24/2023 13:13:25 05/01/2023 text/html 82 yr old female with PMH includes HTN, Afib on Eliquis, CAD s/p CABG and angioplasty, CHF combined type, COPD on home O2, AODM, GERD, gait instability, hypothyroidism, anemia, HLD, CRISTA intolerant of CPAP, gout, obesity, chronic pain, vitamin D deficiency, first degree AV block, lumbar spondylosis, fibromyalgia, hx of c.diff, hx of R MCA bifurcation aneurysm, and hx of AAA.Admitted to for rehab after she had a fall at home and went to the hospital 02/10, she was found to have a fractured hip and underwent repair of the right hip. Patient seen today for acute rounding visit.-She is stable, anticipating discharge to home.- there is no acute nursing concerns. YUNG CALVILLO [address] [facility], [address], [place], [address], [employer] 05/01/2023 15:45:39 05/08/2023 text/html 82 yr old female with PMH includes HTN, Afib on Eliquis, CAD s/p CABG and angioplasty, CHF combined type, COPD on home O2, AODM, GERD, gait instability, hypothyroidism, anemia, HLD, CRISTA intolerant of CPAP, gout, obesity, chronic pain, vitamin D deficiency, first degree AV block, lumbar spondylosis, fibromyalgia, hx of c.diff, hx of R MCA bifurcation aneurysm, and hx of AAA.Admitted to for rehab after she had a fall at home and went to the hospital 02/10, she was found to have a fractured hip and underwent repair of the right hip. Patient seen today for routine rounding visit. Patient is alert and oriented, stable. There is no acute nursing concerns. YUNG CALVILLO [address] [facility], [address], [place], [address], [employer] 05/09/2023 09:20:31 05/15/2023 text/html 82 yr old female with PMH includes HTN, Afib on Eliquis, CAD s/p CABG and angioplasty, CHF combined type, COPD on home O2, AODM, GERD, gait instability, hypothyroidism, anemia, HLD, CRISTA intolerant of CPAP, gout, obesity, chronic pain, vitamin D deficiency, first degree AV block, lumbar spondylosis, fibromyalgia, hx of c.diff, hx of R MCA bifurcation aneurysm, and hx of AAA.Admitted to for rehab after she had a fall at home and went to the hospital 02/10, she was found to have a fractured hip and underwent repair of the right hip. Patient seen today for acute rounding visit. YUNG CALVILLO [address] [facility], [address], [place], [address], [employer] [facility] 05/16/2023 00:18:01 05/17/2023 text/html 82 yr old female with PMH includes HTN, Afib on Eliquis, CAD s/p CABG and angioplasty, CHF combined type, COPD on home O2, AODM, GERD, gait instability, hypothyroidism, anemia, HLD, CRISTA intolerant of CPAP, gout, obesity, chronic pain, vitamin D deficiency, first degree AV block, lumbar spondylosis, fibromyalgia, hx of c.diff, hx of R MCA bifurcation aneurysm, and hx of AAA. Admitted to for rehab after she had a fall at home and went to the hospital 02/10, she was found to have a fractured hip and underwent repair of the right hip. Patient seen today for discharge, she is stable and can be discharge with medications, PT/OT and VNA services. YUNG CALVILLO [address] [facility], [address], [place], [address], [facility] - [employer] 05/17/2023 15:28:55 OBGyn Episode No OBEpisode recorded.
== END 2024-04-29 11:45 | disposition home or self-care (01) ==
LOC: HO.LNP 11:44
PROVIDERS: Visit Provider Internal Medicine
DX: E11.65 Type 2 diabetes mellitus with hyperglycemia (principal); R41.89 Other symptoms and signs involving cognitive functions and awareness; N39.0 Urinary tract infection, site not specified
CPT/HCPCS: 81001; 82043; 82570; 87086; 87088; 87186

== ENCOUNTER 2024-07-17 17:06 | Outpatient (REF) | payer OTHER, SELFPAY ==
--- OUTSIDE RECORDS SUMMARY | 2024-07-17 17:09 | XMS_ITS | Data Portability ---
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 Name Role Phone RUSTY ROSEN 1ST FLOOR [...] and Address Organization Details Recorded Time Dizziness 803098926 Active 2021 Not Available [facility] 4 23:47:36 Vertebral artery occlusion 804601231 Active 2021 Not Available [facility] 4 23:47:36 Aneurysm of middle cerebral artery 348389610 Active 2021 Not Available [facility] 4 23:47:36 Low blood pressure 48919089 Active 2021 Not Available [facility] 4 23:47:36 Chronic respiratory failure 42112257 Active 2021 Not Available [facility] 4 23:47:36 Hypothyroidis m 48342455 Active 2021 Not Available [facility] 4 23:47:36 Diabetes mellitus 08569761 Active 2021 Not Available [facility] 4 23:47:36 Anemia 242467481 Active 2021 Not Available [facility] 4 23:47:36 Vitamin D deficiency 67073464 Active 2021 Not Available [facility] 4 23:47:36 Paroxysmal atrial fibrillation 595771422 Active 2021 Not Available [facility] 4 23:47:36 Falls 556638679 Active 2021 Not Available [facility] 4 23:47:36 Coronary arteriosclero sis 73456139 Active 2021 Not Available [facility] 4 23:47:36 Obesity 644494189 Active 2021 Not Available [facility] 4 23:47:36 Obstructive sleep apnea syndrome 72234275 Active 2021 Not Available [facility] 4 23:47:36 Essential hypertension 43105534 Active 2021 Not Available [facility] 4 23:47:36 Gastroesophag eal reflux disease without esophagitis 658401654 Active 2021 Not Available [facility] 4 23:47:36 Congestive heart failure 34751508 Active 2021 Not Available [facility] 4 23:47:36 Fibromyalgia 437302210 Active 2021 Not Available [facility] 4 23:47:36 Mixed hyperlipidemi a 546640904 Active 2021 Not Available [facility] 4 23:47:36 Gout 06172341 Active 2021 Not Available [facility] 4 23:47:36 Closed fracture of hip 894354663 Active 2022 Not Available [facility] 4 23:47:36 Nausea 922111422 Active 2023 Not Available [facility] 4 23:47:36 Irritable bowel syndrome with diarrhea 711940564 Active 2023 Not Available [facility] 4 23:47:36 Notes:Some problems listed i n Documents: #[id number], #[id number], #[id number] could not be added to this patient's chart. Please review these documents and add these problems to the patient's chart manually as needed. Problem Notes None recorded. Procedures Surgical History Date Name Laterality Status Provider Name and Address Organization Details Recorded Time appendectomy completed JAMAICA CHAO, SAXOPHONE TEACHER [address], [address], [place], [address], [facility] [employer] [facility] 09/05/2021 14:35:03 Cholecystectomy completed JAMAICA CHAO, SAXOPHONE TEACHER [address], [address], [place], [address], [facility] [employer] [facility] 09/05/2021 14:35:12 hysterectomy completed JAMAICA CHAO [employer]OPHONE TEACH[employer] [address], [address], [place], [address], [facility] 09/05/2021 14:35:20 procedure on heart completed JORDAN CHAO [employer]XOPHONE TEACHER [address], [address], [place], [address], [facility] 09/05/2021 14:36:04 total shoulder replacement completed JAMAICA CHAO [employer]XOPHONE TEACHER [address], [address], [place], [address], [facility] 09/05/2021 14:36:27 procedure on vein completed JAMAICA CHAO, SAXOPHONE TEACHER [address], [address], [place], [address], [facility] 09/05/2021 14:36:48 operation on stomach completed JAMAICA CHAO SAXOPHONE TEACHER [address], [address], [place], [address], [facility] 09/05/2021 14:37:08 Imaging Results None recorded. Procedure Notes None recorded. Medical Equipment None Reported. Allergies Allergen ID Allergen Name Allergen Category Reaction Reaction Severity Criticality Documentation Date Start Date Code Code System Note Provider Name and Address Organization Details Recorded Time 46770 morphine medicatio n Not available Not available Not available 09/05/2021 7052 RxNorm JAMAICA CHAO SAXOPHONE TEACHER [address], [address], [place], [address], [facility] 14:28:42 44717 Lyrica medicatio n Not available Not available Not available 09/05/2021 24969 1 RxNorm JAMAICA JEREMIE, SAXOPHONE TEACHER [address], [address], [place], [address], [facility] 2 14:28:48 Medications Name Sig Start Date Stop Date [...] 128 mm[Hg] 61 mm[Hg] YUNG CALVILLO [address], [place], [address], [facility] 4 13:10:16 Date Recorded Body height Provider Name an d Address Organization Details Last Updated DateTime 05/01/2023 160.02 cm [facility] [address], [place], [address], [facility] 05/01/2023 15:43:18 Date Recorded Body height Body temperature Heart rate Respiratory rate Systolic blood pressure Diastolic blood pressure Provider Name and Address Organization Details Last Updated DateTime 4 160.02 cm 98 [degF] 77 /min 17 /min 130 mm[Hg] 72 mm[Hg] YUNG CALVILLO [address], [place], [address], [facility] 4 13:03:17 Date Recorded Body height Body temperature Respiratory rate Heart rate Oxygen saturation Oxygen saturation in Arterial blood by Pulse oximetry Systolic blood pressure Diastolic blood pressure Provider Name and Address Organization Details Last Updated DateTime 4 160.02 cm 97.9 [degF] 18 /min 87 /min 96 % 96 % 122 mm[Hg] 72 mm[Hg] CARMEN CALVILLOP [address] , [address], [place], [address], [facility] 4 00:16:06 Social History Question Answer Notes LastModified by Organizat ion Details LastModified Time Tobacco Smoking Status Former Smoker quit about 1999 Veran Barney MD [address], [address], [place], [address], [facility] 02/19/2023 18:54:47 Do You Have An Advance Directive? Yes Information not available 02/13/2023 What Is Your Level Of Caffeine Consumption? Occasional Information not available 09/05/2021 What Is Your Code Status? DNR/DNI DNH Information not available 02/13/2023 Where Do You Live? [place] Home Alone, Has A Lift Information not available 02/19/2023 Legal Guardian? No Informati on not available 09/05/2021 Do You Have A Medical Power Of Home Health Administrator? Yes HCP On File Information not available 09/05/2021 What Was The Date Of Your Most Recent Tobacco Screening? 02/19/2023 Information not available 02/19/2023 Do You Have An Out Of Hospital DNR? Yes Information not available 04/12/2023 What Is Your Relationship Status? In 2006 Information not available 02/19/2023 How Much Tobacco Do You Smoke? 1 PPD Information not available 02/19/2023 Has Tobacco Cessation Counseling Been Provided? No Information not available 09/05/2021 How Many Years Have You Smoked Tobacco? 66 Information not available 02/19/2023 Do You Have Any Dietary Restrictions? No Information not available 09/05/2021 Sex: Female Functional Status Question Answer Note LastModified by Organizat ion Details LastModified Time Do you use any illicit or recreational drugs? No Information not available 09/05/2021 Do you or have you ever used any other forms of tobacco or nicotine? No Information not available 09/05/2021 What is your level of alcohol consumption? None Information not available 09/05/2021 Mental Status None recorded. Family History Relationship [...] 50 mcg/0.25mL dose 1 completed Not Available [facility] 04/08/2023 23:47:37 COVID-19, mRNA, LNP-S, PF, 100 mcg/0.5mL dose or 50 mcg/0.25mL dose 2 completed Not Available [facility] 04/08/2023 23:47:37 Tdap 6 completed Not Available [facility] 04/08/2023 23:47:37 Influenza, split virus, quadrivalent, preservative 1 completed Not Available [facility] 04/08/2023 23:47:37 pneumococcal polysaccharide PPV23 1 completed Not Available [facility] 04/08/2023 23:47:37 pneumococcal polysaccharide PPV23 9 completed Not Available [facility] 04/08/2023 23:47:37 Pneumococcal conjugate PCV 13 0 completed Not Available [facility] 04/08/2023 23:47:37 zoster, unspecified formulation 8 completed Not Available [facility] 04/08/2023 23:47:37 zoster, unspecified formulation 9 completed Not Available [facility] 04/08/2023 23:47:37 zoster, unspecified formulation 6 completed Not Available [facility] 04/08/2023 23:47:37 Influenza, adjuvanted, quadrivalent, PF 3 completed Not Available [facility] 04/08/2023 23:47:37 Past Encounters Encounter ID Performer Location Encounter Start Date Encounter Closed Date Diagnosis/Indication Diagnosis SNOMED-CT Code Diagnosis ICD10 Code Diagnosis Note [id number] YUNG EGAN [facility] [address] [place] [address] 09/05/2021 11:46:21 09/07/2021 08:06:00 Dizziness 696990995 R42 meclizine 12.5 mg bid prn monitor Low blood pressure 12509 003 I95.89 lasix 40 mg bid and losartan 50 mg qd discontinu ed in hospital for now monitor b/p and add back as able Vertebral artery occlusion 087250473 I65.02 needs to have a appt with outpatient [facility] neurosurge ry monitor Aneurysm o f middle cerebral artery 994234286 I67.1 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 will need to have outpatient appt with [facility] neurosurge ry [place] 865710889 R29.6 PT/OT eval and treat prn monitor for safety Essential hypertension 17005080 I10 ASA 81 mg qd diltiazem 120 mg qd carvedilol 25 mg bid lasix and losartan discontinu ed-watch to be able to add back monitor b/p and labs Coronary arteriosclerosis 08503982 I25.10 nitro 0.4 mg SL q 5 minutes x3 atorvastat in 40 mg qd ezetimibe 10 mg qd eliquis 5 mg bid ASA 81 mg qd diltiazem 120 mg qd carvedilol 25 mg bid monitor Diabetes mellitus 592557 09 E11.9 carb control diet glucose check bid semaglutid e 1.5 mg sq weekly monitor for s/s of hypo/hyper glycemia monitor A1c Congestive heart failure 06046183 I50.89 was on lasix 40 mg bid-monito r for need to add back monitor weights and s/s of heart failure Chronic re spiratory failure 82742401 J96.10 secondary to COPD oxygen at 2 liters via nc fluticason e propion-sa lmeterol 500-50 mcg 1 inhalation bid spiriva 18 mcg 1 inhalation qd mucinex 600 mg bid prn albuterol neb 2.5 mg/3 ml q 4 hrs prn duo neb qid albuterol hfa 90 mcg 2 puffs q 4 hrs prn monitor for respirator y symptoms Anemia 282455438 D50.8 vitamin B12 1000 mcg IM q 4 weeks vitamin C 500 mg bid ferrous sulfate 325 mg qd monitor labs Fibromyalgia 037636506 M 79.7 duloxetine 30 mg qd meloxicam 7.5 mg qd tylenol 650 mg q 4 hrs prn monitor pain Gastroesop hageal reflux disease without esophagitis 568844779 K21.9 dexilant 30 mg qd dicyclomin e 10 mg qid prn carafate 1 gm q hs monitor for symptoms Hypothyroidism 13825827 E03.8 levothyrox ine 100 mcg qd monitor labs Mixed hyperlipidemia 267 606774 E78.2 atorvastat in 40 mg qd ezetimibe 10 mg qd questran 4 gms qid monitor labs Obesity 099034034 E66.9 encourage good choices traffic circuit engineer consult as needed monitor Paroxysmal atrial fibrillation 303138760 I48.0 eliquis 5 mg bid carvedilol 25 mg bid diltiazem 120 mg qd monitor rate and rhythm Obstructiv e sleep apnea syndrome 05586071 G47.33 not on cpap/bipap uses oxygen at 2 liters via nc monitor Vitamin D deficiency 347 17844 E55.9 vitamin D3 1000 iu qd monitor labs Gout 64243059 M10.9 she notes she has gout on/off in bilateral great toes they are noted to be slightly red may need to give prednisone burst if continues monitor [id number] Efren Hobson MD [address] [address] 09/06/2021 09:47:43 09/11/2021 20:47:26 Dizziness 918808449 R42 see above continued on meclizine 12.5 mg bid prn monitor utilizatio n Low blood pressure 40240 003 I95.89 see HPIhtn/hyp o tensionnow with losartan and lasix heldcontin ued on coreg 25 mg bidmonitor bp and need to adjust Vertebral artery occlusion 593730452 I65.02 eval by neuro now onasa 81 mg qdlipitor 40 mg qdmonitor for sx Aneurysm o f middle cerebral artery 912925674 I67.1 see HPIright MCA aneurysm 4.6 mmto f/u with neurosurge rymonitor for sxupdate neurosurge ry with concernsmo nitor bp [place] 127481563 R29.6 PT OT eval and treatmonit or fall risk Essential hypertension 30332478 I10 medication s adjusted during hospitaliz ationnow oncoreg 25 mg biddiltiaz em 120 mg qdmonitor bp and need to adjust with lasix and losartan held Coronary arteriosclerosis 27292889 I25.10 at baseline added to PMHlipitor 40 mg qdasa 81 mg qdcoreg 25 mg bidmonitor for sxcards eval prn Diabetes mellitus 296014 09 E11.9 continue current medication smonitor blood glucose and need to adjust Congestive heart failure 27493450 I50.22 see abovecarry ing dxnow off lasixmonit or respirator y function and fluid status Anemia 727550010 D50.8 continue supplement smonitor cbciron studies prn Fibromyalgia 171542445 M 79.7 added to PMHcontinu e out patient meds Gastroesop hageal reflux disease without esophagitis 142651180 K21.9 stable on out patient medsmonito r sxupdate GI with concerns Hypothyroidism 04660674 E03.8 synthroid 100 mcg qdtsh prn Mixed hyperlipidemia 267 988357 E78.2 with baseline cadcontinu e statin and zetia Obesity 097800416 E66.09 dietary to eval Paroxysmal atrial fibrillation 926626983 I48.0 eliquis 5 mg bidcoreg 25 mg bidmonitor for rate control Obstructiv e sleep apnea syndrome 02327703 G47.33 added to PMHdoes not utilize cpap Chronic ob structive pulmonary disease 98766802 J41.1 baseline copd on O2 by 2 liters NC at baselineco ntinue out patient medsmonito r respirator y statuspulm onary eval prn [id number] YUNG EGAN [address] [address] 09/15/2021 13:21:28 09/19/2021 11:48:58 Dizziness 805817700 R42 meclizine 12.5 mg bid prn monitor Vertebral artery occlusion 509332414 I65.02 needs to have a appt with outpatient [facility] neurosurge ry monitor Aneurysm o f middle cerebral artery 743968113 I67.1 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 will need to have outpatient appt with [facility] neurosurge ry [place] 744057194 R29.6 PT/OT eval and treat prn monitor for safety Essential hypertension 38284884 I10 ASA 81 mg qd diltiazem 120 mg qd carvedilol 25 mg bid monitor b/p and labs Coronary arteriosclerosis 54104057 I25.10 nitro 0.4 mg SL q 5 minutes x3 atorvastat in 40 mg qd ezetimibe 10 mg qd eliquis 5 mg bid ASA 81 mg qd diltiazem 120 mg qd carvedilol 25 mg bid monitor Diabetes mellitus 926872 09 E11.9 carb control diet glucose check bid semaglutid e 1.5 mg sq weekly monitor for s/s of hypo/hyper glycemia monitor A1c Congestive heart failure 22451047 I50.89 not on diuretic at this time monitor weights and s/s of heart failure Chronic re spiratory failure 06516298 J96.10 secondary to COPD oxygen at 2 liters via nc fluticason e propion-sa lmeterol 500-50 mcg 1 inhalation bid spiriva 18 mcg 1 inhalation qd mucinex 600 mg bid prn albuterol neb 2.5 mg/3 ml q 4 hrs prn duo neb qid albuterol hfa 90 mcg 2 puffs q 4 hrs prn monitor for respirator y symptoms Anemia 557033498 D50.8 vitamin C 500 mg bid ferrous sulfate 325 mg qd monitor labs Fibromyalgia 194291615 M 79.7 duloxetine 30 mg qd meloxicam 7.5 mg qd tylenol 650 mg q 4 hrs prn monitor pain Gastroesop hageal reflux disease without esophagitis 348685553 K21.9 dexilant 30 mg qd dicyclomin e 10 mg qid prn carafate 1 gm q hs monitor for symptoms Hypothyroidism 83695695 E03.8 levothyrox ine 100 mcg qd monitor labs Mixed hyperlipidemia 267 592773 E78.2 atorvastat in 40 mg qd ezetimibe 10 mg qd questran 4 gms qid monitor labs Obesity 295376608 E66.9 encourage good choices traffic circuit 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 consult as needed monitor Paroxysmal atrial fibrillation 837082816 I48.0 eliquis 5 mg bid carvedilol 25 mg bid diltiazem 120 mg qd monitor rate and rhythm Obstructiv e sleep apnea syndrome 44993228 G47.33 not on cpap/bipap uses oxygen at 2 liters via [place] monitor Vitamin D deficiency 347 59126 E55.9 vitamin D3 1000 iu qd monitor labs Gout 83603089 M10.9 she notes she has gout on/off in bilateral great toes monitor Acute urin dom tract infection 416236757 N39.0 keflex 250 mg q 6 hrs x 3 days probiotic bid x 6 days monitor for resolution [id number] YUNG EGAN [facility] [address] [address] 09/18/2021 10:54:07 09/20/2021 15:18:56 Chronic respiratory failure 31646321 J96.10 secondary to COPD oxygen at 2 liters via [place] fluticason e propion-sa lmeterol 500-50 mcg 1 inhalation bid spiriva 18 mcg 1 inhalation qd mucinex 600 mg bid prn albuterol neb 2.5 mg/3 ml q 4 hrs prn duo neb qid albuterol hfa 90 mcg 2 puffs q 4 hrs prn monitor for respirator y symptoms Essential hypertension 79494778 I10 ASA 81 mg qd eliquis 5 mg bid diltiazem 120 mg qd carvedilol 25 mg bid monitor b/p and labs [id number] RADHA YODER NP [facility] [address] [address] 09/21/2021 08:34:12 09/26/2021 14:28:17 Acute urinary tract infection 937022987 N39.0 keflex 250 mg q 6 hrs x 3 days completecl inically improvedMo nitor for sx. as outpt. Dizziness 832230080 R42 continue meclizine 12.5 mg bid prn monitor as outpt Aneurysm o f middle cerebral artery 549373180 I67.1 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continue asa and statinneed s outpatient appt with [facility] neuro[facility]ge [facility] [place] 027863237 R29.6 PT/OT eval and treat - meeting goals for d/c home monitor for safety as outpt Essential hypertension 24004530 I10 Prior issues low BP, taken off lasix 40 mg bid and losartan 50 mg qd in the hospitalNo issues with low BP hereCurren tly on: diltiazem 120 mg qd carvedilol 25 mg bid monitor b/p and labs as outpt. Coronary arteriosclerosis 24395465 I25.10 Continue current meds:nitro 0.4 mg SL q 5 minutes x3 atorvastat in 40 mg qd ezetimibe 10 mg qd eliquis 5 mg bid ASA 81 mg qd diltiazem 120 mg qd carvedilol 25 mg bid monitor VS, labs, CP status as outpt. Diabetes mellitus 794688 09 E11.9 Conitnue:c arb control diet semaglutid e 1.5 mg sq weekly monitor for s/s of hypo/hyper glycemia - no issues here monitor A1c Congestive heart failure 76253565 I50.89 not on diuretic at this time monitor weights and s/s of heart failure Chronic re spiratory failure 87741777 J96.10 secondary to COPDContin ue: oxygen at 2 liters via nc fluticason e propion-sa lmeterol 500-50 mcg 1 inhalation bid spiriva 18 mcg 1 inhalation qd mucinex 600 mg bid albuterol neb 2.5 mg/3 ml q 4 hrs prn duo neb qid albuterol hfa 90 mcg 2 puffs q 4 hrs prn monitor respirator y symptoms as outpt. Anemia 048772403 D50.8 Continue:v itamin C 500 mg bid ferrous sulfate 325 mg qd monitor CBC, s/s active bleeding as outpt. Fibromyalgia 156379657 M 79.7 Continue:d uloxetine 30 mg qd meloxicam 7.5 mg qd tylenol 650 mg q 4 hrs prn monitor pain Gastroesop hageal reflux disease without esophagitis 230695241 K21.9 Continue:d exilant 30 mg qd dicyclomin e 10 mg qid prn carafate 1 gm q hs monitor for symptoms Hypothyroidism 16170252 E03.8 continue levothyrox ine 100 mcg qd monitor labs Mixed hyperlipidemia 267 854113 E78.2 continue:a torvastati n 40 mg qd ezetimibe 10 mg qd questran 4 gms qid monitor labs Paroxysmal atrial fibrillation 599564658 I48.0 continue:e liquis 5 mg bid carvedilol 25 mg bid diltiazem 120 mg qd monitor as outpt Obstructiv e sleep apnea syndrome 03426164 G47.33 not on cpap/bipap uses oxygen at 2 liters via [place] monitor Vitamin D deficiency 347 82581 E55.9 vitamin D3 1000 iu qd monitor labs [id number] CONNOR NOVAK [address] [place] [address] rd [place] [address] 02/13/2023 10:15:03 02/26/2023 10:04:21 [place] 931040734 R29.6 PT OT eval and treatfall precaution sfrequent safety checks Dizziness 021663351 R42 meclizine 12.5 mg bid prnmonitor as outpt Essential hypertension 40825418 I10 lasix 40 mg dailymonit or b/p and labs as outpt. Coronary arteriosclerosis 24652318 I25.10 nitro 0.4 mg SL q 5 minutes [id number] atin 80 mg qdezetimib e 10 mg qdeliquis 5 mg bidASA 81 mg qdmonitor VS, labs, CP status as outpt. Diabetes mellitus 801134 09 E11.9 carb control dietsemagl utide 3 mg sq weeklymoni tor for s/s of hypo/hyper glycemiamo nitor A1c Congestive heart failure 55724953 I50.89 lasix 40 mg dailymonit or weights and s/s of heart failure Chronic re spiratory failure 65396287 J96.10 oxygen at 2 liters via [place] fluticason e propion-sa lmeterol 500-50 mcg 1 inhalation bidspiriva 18 mcg 1 inhalation qdalbutero l neb 2.5 mg/3 ml q 4 hrs prnduo neb qidalbuter ol hfa 90 mcg 2 puffs q 4 hrs prnmonitor respirator y symptoms as outpt. Paroxysmal atrial fibrillation 623606384 I48.0 eliquis 5 mg bidtoprol 50 mg dailymonit or as outpt Anemia 999271876 D50.8 vitamin C 500 mg bidferrous sulfate 325 mg qdthiamine 100 mg [id number] 1000 om monthlymon itor CBC Fibromyalgia 825193164 M 79.7 duloxetine 30 mg qdtylenol 650 mg q 4 hrs prnmonitor pain Gastroesop hageal reflux disease without esophagitis 756870652 K21.9 dexilant 30 mg qddicyclom ine 10 mg qid prncarafat e 1 gm q hszofran 8 mg q12 hr prnmonitor for symptoms Hypothyroidism 88223760 E03.8 levothyrox ine 100 mcg qdmonitor labs Mixed hyperlipidemia 267 468701 E78.2 atorvastat in 80 mg qdezetimib e 10 mg qdmonitor labs Obstructiv e sleep apnea syndrome 32253991 G47.33 not on cpap/bipap uses oxygen at 2 liters via nc monitor Vitamin D deficiency 347 20636 E55.9 vitamin D3 1000 iu qd monitor labs Closed fra cture of hip 444342771 S72.001A followup with ortho in 2 weekstrama dol 50 mg q6hr prnmonitor surgical incision for s/s infection [id number] CONNOR NOVAK JESSIKA [address] [place] [address] 02/15/2023 09:53:27 02/26/2023 11:30:23 Dizziness 671946387 R42 meclizine 25 mg tidmonitor as outpt Closed fra cture of hip 945764131 S72.001A followup with ortho in 2 weekstrama dol 50 mg q6hr prnmonitor surgical incision for s/s infection Congestive heart failure 70588956 I50.89 lasix 40 mg dailymonit or weights and s/s of heart failure [id number] MD RUSTY Samano [address] [address] 02/19/2023 13:15:20 02/26/2023 13:59:05 [place] 939768101 R29.6 As above. Closed fra cture of hip 997747624 S72.041D Poor cooperatio n with rehab.Very deconditio [place].Needs PT/OT for strengthen ing, balance, gait training, safety and function.C ontinue fall precaution s.Monitor for safety.Con tinue tramadol 50 mg q 6 hrs prnWill add APAP 1000 mg TID,Monito r surgical incision.F /U with ortho as planned Dizziness 432993148 R42 Not clearly vertigo, could be orthostati c hypotensio n.Will check orthostati c vitals BID x 2 days.Tracy nue meclizine 25 mg TIDMonitor sxs Essential hypertension 09256012 I10 Good control lasix 40 mg qd and metoprolol 50 mg qd.Monitor BP and labs. Coronary arteriosclerosis 56625665 I25.10 No current sxs.Contin ue meds as above and NTG 0.4 mg SL q 5 minutes x3 prn, atorvastat in 80 mg qd, ezetimibe 10 mg qd and ASA 81 mg qdMonitor sxs and vital.F/U with cardio prn. Diabetes mellitus 014173 09 E11.9 In excellent control since here.Tracy nue semaglutid e 3 mg sq weekly and SSI.Will decrease fingerstic ks to fasting and monitor HgA1C q 3 months. Congestive heart failure 63930231 I50.89 Appears euvolemic. Continue meds as above.Urmila tor resp. status, fluid status, wts and labs. Chronic re spiratory failure 04804348 J96.11 At baseline.C ontinue supplement al O2 at 2 liters by [place].Duonebs are supposed to be qid scheduled, but written as prn, will change.Con tinue Advair 500/50 mcg BID, spiriva 18 mcg qd, albuterol nebs q 6 hrs prn, and albuterol HFA 90 mcg 2 puffs q 4 hrs prn.Monito r resp status. Paroxysmal atrial fibrillation 998948526 I48.0 Rate in good control on meds as above.Cont inue eliquis 5 mg BID for AC.Monitor HR and bleeding risk. Anemia 312163021 D50.8 With minimal drop post-op.Co ntinue FeSO4 325 mg qd with vitamin C 500 mg BID, thiamine 100 mg qd and vitamin B12 1000 mcg q monthMonit or labs. Fibromyalgia 438200041 M 79.7 Continue duloxetine 30 mg qdAlso currently on tramadol and APAP for hip fx.Monitor sxs. Gastroesop hageal reflux disease without esophagitis 058589620 K21.9 No current sxs.Contin ue omeprazole 20 mg qd and zofran 8 mg q 12 hrs prnMonitor for sxs Hypothyroidism 16195657 E03.8 Last TSH 4.82 in 11/2022 with nl FT4.Contin ue levothyrox ine 100 mcg qdMonitor labs prn Mixed hyperlipidemia 267 731945 E78.2 Continue atorvastat in 80 mg qd and ezetimibe 10 mg qdMonitor labs as outpt. Obstructiv e sleep apnea syndrome 85027867 G47.33 Intolerant of cpap/bipap Continue supplement al O2 as above.Urmila tor sats. Vitamin D deficiency 347 20326 E55.9 Continue vitamin D3 1000 IU qdMonitor labs as outpt. Aneurysm o f middle cerebral artery 612516256 I67.1 Hx of 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Saw neurosurg several times, imaging showed stable size.Decis ion for conservati ve tx due to other medical problems.W ould embolize only if sxs of severe [place]. Nausea 227757904 R11.0 Pt. thinks from eye problem as it was there before fallContin ue Zofran 8 mg q 12 hrs prn.F/U with eye dr as planned.Wi ll have nursing try and figure out when appt is. Irritable bowel syndrome with diarrhea 489062472 K58.0 Continue dicyclomin e 10 mg qid prnPt. not interested in trying imodium.Mo nitor bowel habits. [id number] SARAH PETERSON NP [address] [address] 02/22/2023 12:34:39 02/26/2023 15:08:05 Congestive heart failure 03344660 I50.89 lasix 40 mg dailymonit or weights and s/s of heart failure Dizziness 994166473 R42 meclizine 25 mg tidmonitor as outpt Closed fra cture of hip 291211650 S72.001A followup with ortho in 2 weekstrama dol 50 mg q6hr prnmonitor surgical incision for s/s infection [id number] YUNG CALVILLO [facility] [address] [place] [address] 02/26/2023 11:35:20 03/06/2023 12:35:17 Falls 170905195 R29.6 PT OT eval and treatfall precaution sfrequent safety checks Closed fra cture of hip 759898943 S72.001A follow up with ortho in 2 weekstrama dol 50 mg q6hr prnmonitor surgical incision for s/s infection Dizziness 007053621 R42 meclizine 12.5 mg bid prnmonitor as outpt Essential hypertension 21841763 I10 stablelasi x 40 mg dailymonit or b/p and labs as outpt. Coronary arteriosclerosis 45480964 I25.10 02/26/23 denies chest discomfort nitro 0.4 mg SL q 5 minutes [id number] atin 80 mg qdezetimib e 10 mg qdeliquis 5 mg bidASA 81 mg qdmonitor VS, labs, CP status as outpt. Diabetes mellitus 416820 09 E11.9 stable readings under 150carb control dietsemagl utide 3 mg sq weeklymoni tor for s/s of hypo/hyper glycemiamo nitor A1c Congestive heart failure 72149289 I50.89 lasix 40 mg dailymonit or weights and s/s of heart failure Chronic re spiratory failure 19312228 J96.10 oxygen at 2 liters via nc fluticason e propion-sa lmeterol 500-50 mcg 1 inhalation bidspiriva 18 mcg 1 inhalation qdalbutero l neb 2.5 mg/3 ml q 4 hrs prnduo neb qidalbuter ol hfa 90 mcg 2 puffs q 4 hrs prnmonitor respirator y symptoms as outpt. Paroxysmal atrial fibrillation 084719067 I48.0 eliquis 5 mg bidtoprol 50 mg dailymonit or as outpt Gastroesop hageal reflux disease without esophagitis 636491491 K21.9 dexilant 30 mg qddicyclom ine 10 mg qid prncarafat e 1 gm q hszofran 8 mg q12 hr prnmonitor for symptoms [id number] YUNG CALVILLO JESSIKA [address] [place] [address] 02/28/2023 09:39:57 03/06/2023 13:35:24 Closed fracture of hip 187266059 S72.001A staple intactappt to remove later today.tram adol 50 mg q6hr prnmonitor surgical incision for s/s infection Dizziness 400002238 R42 meclizine 12.5 mg bid prnmonitor as outpt Essential hypertension 75839129 I10 stablelasi x 40 mg dailymonit or b/p and labs as outpt. Coronary arteriosclerosis 63759955 I25.10 02/26/23 denies chest discomfort nitro 0.4 mg SL q 5 minutes [id number] atin 80 mg qdezetimib e 10 mg qdeliquis 5 mg bidASA 81 mg qdmonitor VS, labs, CP status as outpt. Diabetes mellitus 243860 09 E11.9 stable readings under 150carb control dietsemagl utide 3 mg sq weeklymoni tor for s/s of hypo/hyper glycemiamo nitor A1c Congestive heart failure 34690564 I50.89 lasix 40 mg dailymonit or weights and s/s of heart failure Chronic re spiratory failure 96222635 J96.10 oxygen at 2 liters via nc fluticason e propion-sa lmeterol 500-50 mcg 1 inhalation bidspiriva 18 mcg 1 inhalation qdalbutero l neb 2.5 mg/3 ml q 4 hrs prnduo neb qidalbuter ol hfa 90 mcg 2 puffs q 4 hrs prnmonitor respirator y symptoms as outpt. Paroxysmal atrial fibrillation 845927852 I48.0 eliquis 5 mg bidtoprol 50 mg dailymonit or as outpt Gastroesop hageal reflux disease without esophagitis 600052924 K21.9 dexilant 30 mg qddicyclom ine 10 mg qid prncarafat e 1 gm q hszofran 8 mg q12 hr prnmonitor for symptoms [id number] YUNG CALVILLO [address] [place] [address] [place] [address] 03/04/2023 11:36:26 03/06/2023 14:27:58 Closed fracture of hip 403424462 S72.001A anisa removed 02/28/11tra madol 50 mg q6hr prnmonitor surgical incision for s/s infection Dizziness 737831635 R42 reports that she has not been working with PT due to dizziness. Patient encouraged to utilized prnnursing to assess for dizziness. meclizine 12.5 mg bid prnmonitor as outpt Essential hypertension 32273902 I10 stablelasi x 40 mg dailymonit or b/p and labs as outpt. Congestive heart failure 22359279 I50.89 lasix 40 mg dailymonit or weights and s/s of heart failuretra ce edema noted to ble. Chronic re spiratory failure 85209871 J96.10 oxygen at 2 liters via [place] fluticason e propion-sa lmeterol 500-50 mcg 1 inhalation bidspiriva 18 mcg 1 inhalation qdalbutero l neb 2.5 mg/3 ml q 4 hrs prnduo neb qidalbuter ol hfa 90 mcg 2 puffs q 4 hrs prnmonitor respirator y symptoms as outpt. Paroxysmal atrial fibrillation 862833912 I48.0 eliquis 5 mg bidtoprol 50 mg dailymonit or as outpt Gastroesop hageal reflux disease without esophagitis 403708896 K21.9 dexilant 30 mg qddicyclom ine 10 mg qid prncarafat e 1 gm q hszofran 8 mg q12 hr prnmonitor for symptoms [id number] YUNG CALVILLO [address] [place] [address] 03/07/2023 10:08:49 03/11/2023 15:58:17 Closed fracture of hip 091323281 S72.001A right hip with minimal swelling, no s/sx of infection. anisa removed 02/28/11tra madol 50 mg q6hr prnmonitor surgical incision for s/s infection Dizziness 077411168 R42 reports that she has not been working with PT due to dizziness. Patient is encouraged to take prn meclizine prior to therapy.Hung kimball encouraged to utilized prnnursing to assess for dizziness. meclizine 12.5 mg bid prnmonitor as outpt Essential hypertension 83523686 I10 stablelasi x 40 mg dailymonit or b/p and labs as outpt. Congestive heart failure 79288292 I50.89 lasix 40 mg dailymonit or weights and s/s of heart failuretra ce edema noted to ble. Chronic re spiratory failure 57158497 J96.10 oxygen at 2 liters via [place] fluticason e propion-sa lmeterol 500-50 mcg 1 inhalation bidspiriva 18 mcg 1 inhalation qdalbutero l neb 2.5 mg/3 ml q 4 hrs prnduo neb qidalbuter ol hfa 90 mcg 2 puffs q 4 hrs prnmonitor respirator y symptoms as outpt. Paroxysmal atrial fibrillation 742445849 I48.0 eliquis 5 mg bidtoprol 50 mg dailymonit or as outpt Gastroesop hageal reflux disease without esophagitis 682043821 K21.9 dexilant 30 mg qddicyclom ine 10 mg qid prncarafat e 1 gm q hszofran 8 mg q12 hr prnmonitor for symptoms [id number] YUNG CALVILLO [address] [address] 03/12/2023 07:48:41 03/15/2023 08:33:06 Closed fracture of hip 241658721 S72.001A right hip with minimal swelling, no s/sx of infection. anisa removed 02/28/11tra madol 50 mg q6hr prnmonitor surgical incision for s/s infection Dizziness 195279012 R42 reports improvemen tmeclizine prior to therapy.Hung kimball encouraged to utilized prnnursing to assess for dizziness. meclizine 12.5 mg bid prnmonitor as outpt Essential hypertension 03796940 I10 stablelasi x 40 mg dailymonit or b/p and labs as outpt. Congestive heart failure 09114287 I50.89 lasix 40 mg dailymonit or weights and s/s of heart failuretra ce edema noted to ble. Chronic re spiratory failure 48755438 J96.10 oxygen at 2 liters via [place] fluticason e propion-sa lmeterol 500-50 mcg 1 inhalation bidspiriva 18 mcg 1 inhalation qdalbutero l neb 2.5 mg/3 ml q 4 hrs prnduo neb qidalbuter ol hfa 90 mcg 2 puffs q 4 hrs prnmonitor respirator y symptoms as outpt. Paroxysmal atrial fibrillation 949451017 I48.0 eliquis 5 mg bidtoprol 50 mg dailymonit or as outpt Gastroesop hageal reflux disease without esophagitis 169975725 K21.9 dexilant 30 mg qddicyclom ine 10 mg qid prncarafat e 1 gm q hszofran 8 mg q12 hr prnmonitor for symptoms [id number] YUNG CALVILLO [facility] JESSIKA [address] [place] [address] 03/15/2023 08:18:00 03/20/2023 11:41:33 Closed fracture of hip 643699333 S72.001A right hip with minimal swelling, no s/sx of infection. anisa removed 02/28/11tra madol 50 mg q6hr prnmonitor surgical incision for s/s infection Dizziness 198953528 R42 meclizine 12.5 mg bid prnmonitor as outpt Essential hypertension 33308426 I10 stablelasi x 40 mg dailymonit or b/p and labs as outpt. Congestive heart failure 69293179 I50.89 lasix 40 mg dailymonit or weights and s/s of heart failure2+ edema noted to lower ankles Chronic re spiratory failure 78129413 J96.10 O2 dependento xygen at 2 liters via nc fluticason e propion-sa lmeterol 500-50 mcg 1 inhalation bidspiriva 18 mcg 1 inhalation qdalbutero l neb 2.5 mg/3 ml q 4 hrs prnduo neb qidalbuter ol hfa 90 mcg 2 puffs q 4 hrs prnmonitor respirator y symptoms as outpt. Paroxysmal atrial fibrillation 282221394 I48.0 eliquis 5 mg bidtoprol 50 mg dailymonit or as outpt Gastroesop hageal reflux disease without esophagitis 050710339 K21.9 dexilant 30 mg qddicyclom ine 10 mg qid prncarafat e 1 gm q hszofran 8 mg q12 hr prnmonitor for symptoms [id number] YUNG CALVILLO [address] [place] [phone] 03/18/2023 07:52:24 04/02/2023 15:36:02 Closed fracture of hip 233439662 S72.001A right hip with minimal swelling, no s/sx of infection. anisa removed 02/28/11tra madol 50 mg q6hr prnmonitor surgical incision for s/s infection Dizziness 534861705 R42 meclizine 12.5 mg bid prnmonitor as outpt Essential hypertension 98003266 I10 stablelasi x 40 mg dailymonit or b/p and labs as outpt. Congestive heart failure 11772719 I50.89 weight today 204 up 3 lbs from 201 on 03/16- may need to give additional lasix , will monitorlas ix 40 mg dailymonit or weights and s/s of heart failure2+ edema noted to lower ankles Chronic re spiratory failure 69247661 J96.10 O2 dependento xygen at 2 liters via ky fluticason e propion-sa lmeterol 500-50 mcg 1 inhalation bidspiriva 18 mcg 1 inhalation qdalbutero l neb 2.5 mg/3 ml q 4 hrs prnduo neb qidalbuter ol hfa 90 mcg 2 puffs q 4 hrs prnmonitor respirator y symptoms as outpt. Paroxysmal atrial fibrillation 947131472 I48.0 eliquis 5 mg bidtoprol 50 mg dailymonit or as outpt [id number] YUNG CALVILLO [address] [address] 03/25/2023 11:40:05 03/27/2023 15:02:29 Closed fracture of hip 103686748 S72.001A right hip with minimal swelling, no s/sx of infection. anisa removed 02/28/11tra madol 50 mg q6hr prn Dizziness 056143691 R42 meclizine 12.5 mg bid prnmonitor as outpt Essential hypertension 28010838 I10 stablelasi x 40 mg dailymonit or b/p and labs as outpt. Congestive heart failure 08344993 I50.89 lasix 40 mg dailymonit or weights and s/s of heart failure1-2 + edema noted to lower ankles Chronic re spiratory failure 90772049 J96.10 supplement al O2 at 2 liters via ky fluticason e propion-sa lmeterol 500-50 mcg 1 inhalation bidspiriva 18 mcg 1 inhalation qdalbutero l neb 2.5 mg/3 ml q 4 hrs prnduo neb qidalbuter ol hfa 90 mcg 2 puffs q 4 hrs prnmonitor respirator y symptoms as outpt. Paroxysmal atrial fibrillation 275992696 I48.0 eliquis 5 mg bidtoprol 50 mg dailymonit or as outpt [id number] YUNG CALVILLO [address] [address] 04/01/2023 07:59:04 04/04/2023 13:27:21 Closed fracture of hip 091794670 S72.001A right hip with minimal swelling, no s/sx of infection. anisa removed 02/28/11tra madol 50 mg q6hr prn Congestive heart failure 82791070 I50.89 lasix 40 mg dailymonit or weights and s/s of heart failure1-2 + edema noted to lower anklesenco uraged legs elevations and oksana bandages to bilateral lower extremitie s. Falls 271975330 R29.6 PT/OT prnfall precaution sfrequent safety checks [id number] RALPHYUNG AGUILAR [address] [address] 04/04/2023 14:04:47 04/08/2023 12:33:49 Closed fracture of hip 195244200 S72.001A s/p fall 02/10 with right hip repair.tra madol 50 mg q6hr prnpatient stays in bed, refuses OOB per nursing staff. Congestive heart failure 38500093 I50.89 lasix 40 mg dailymonit or weights and s/s of heart failure1-2 + edema noted to lower anklesenco uraged legs elevations and oksana bandages to bilateral lower extremitie s. Falls 934619250 R29.6 fall precaution sfrequent safety checks [id number] YUNG CALVILLO [address] [address] 04/10/2023 08:45:25 04/11/2023 18:26:36 Closed fracture of hip 726181068 S72.001A s/p fall 02/10 with right hip repair.tra madol 50 mg q6hr prnpatient stays in bed, refuses OOB per nursing staff.04/09: patient got OOB yesterday per her request. Congestive heart failure 34968486 I50.89 lasix 40 mg dailymonit or weights and s/s of heart failure1-2 + edema noted to lower anklesenco uraged legs elevations and oksana bandages to bilateral lower extremitie s. Falls 315449987 R29.6 fall precaution sfrequent safety checks [id number] MD RUSTY Samano [address] [facility] [place] [address] 04/12/2023 18:36:04 04/16/2023 11:21:31 Closed fracture of hip 945613751 S72.041D Has recovered from fx, but mobility is still an issue.Will have lots of help at home, but not overnight. Will need to be monitored closely outpt for safety.No further f/u with ortho, unless needed. Congestive heart failure 22221245 I50.89 Continues at baseline.C ontinue meds as above.Urmila tor resp. status, fluid status, wts and labs. Falls 250804858 R29.6 Continue fall precaution s.Monitor for safety. Dizziness 748743821 R42 No c/o todayConti nue meclizine 25 mg TIDMonitor sxs Nausea 586816943 R11.0 Seems better per pt.Continu e Zofran 8 mg q 12 hrs prn.Monito r Essential hypertension 27073223 I10 Good control on lasix 40 mg qd and metoprolol 50 mg qd.Monitor BP and labs. Coronary arteriosclerosis 97418248 I25.10 No current sxs.Contin ue meds as above and NTG 0.4 mg SL q 5 minutes x3 prn, atorvastat in 80 mg qd, ezetimibe 10 mg qd and ASA 81 mg qdMonitor sxs and vital.F/U with cardio prn. Diabetes mellitus 324004 09 E11.9 In excellent control since here.Tracy nue semaglutid e 3 mg sq weekly.Poli l d/c SSI and monitor sugars prn. Chronic re spiratory failure 39190945 J96.11 Continues at baseline.C ontinue supplement al O2 at 1-2 liters by HI to maintain sats 90-94%Duon ebs qid prn, Advair 500/50 mcg BID, spiriva 18 mcg qd, albuterol nebs q 6 hrs prn, and albuterol HFA 90 mcg 2 puffs q 4 hrs prn.Monito r resp status. Paroxysmal atrial fibrillation 759023294 I48.0 Rate in good control on meds as above.Cont inue eliquis 5 mg BID for AC.Monitor HR and bleeding risk. Anemia 896085851 D50.8 With minimal drop post-op.Co ntinue FeSO4 325 mg qd with vitamin C 500 mg BID, thiamine 100 mg qd and vitamin B12 1000 mcg q monthMonit or labs. Fibromyalgia 297552411 M 79.7 Continue duloxetine 30 mg qdMonitor sxs. Gastroesop hageal reflux disease without esophagitis 352026904 K21.9 No current sxs.Contin ue omeprazole 20 mg qd and zofran 8 mg q 12 hrs prnMonitor for sxs Hypothyroidism 53420323 E03.8 Last TSH 4.82 in 11/2022 with nl FT4.Contin ue levothyrox ine 100 mcg qdMonitor labs prn Mixed hyperlipidemia 267 661721 E78.2 Continue atorvastat in 80 mg qd and ezetimibe 10 mg qdMonitor labs as outpt. Obstructiv e sleep apnea syndrome 56497829 G47.33 Intolerant of cpap/bipap Continue supplement al O2 as above.Urmila tor sats. Vitamin D deficiency 347 76113 E55.9 Continue vitamin D3 1000 IU qdMonitor labs as outpt. Aneurysm o f middle cerebral artery 998516340 I67.1 Hx of 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Saw neurosurg several times, imaging showed stable size.Decis ion for conservati ve tx due to other medical problems.W ould embolize only if sxs of severe [place]. Irritable bowel syndrome with diarrhea 877979783 K58.0 Continue dicyclomin e 10 mg qid prnMonitor bowel habits. [id number] YUNG CALIVLLO [address] [place] [address] 04/17/2023 07:50:06 04/23/2023 10:23:47 Closed fracture of hip 781819959 S72.001A s/p fall 02/10 with right hip repair.tra madol 50 mg q6hr prnpatient stays in bed, refuses OOB per nursing staff.04/09: patient got OOB yesterday per her request. Congestive heart failure 60347494 I50.89 lasix 40 mg dailymonit or weights and s/s of heart failure1-2 + edema noted to lower anklesenco uraged legs elevations and oksana bandages to bilateral lower extremitie s. Falls 693303562 R29.6 fall precaution sfrequent safety checks Essential hypertension 88223864 I10 stablelasi x 40 mg dailymonit or b/p and labs as outpt. Diabetes mellitus 304717 09 E11.9 stable readings under 150carb control dietsemagl utide 3 mg sq weeklymoni tor for s/s of hypo/hyper glycemiamo nitor A1c [id number] YUNG CALVILLO [address] [address] 04/24/2023 10:07:25 04/26/2023 13:02:59 Closed fracture of hip 008563573 S72.001A s/p fall 02/10 with right hip repair.tra madol 50 mg q6hr prnpatient stays in bed, refuses OOB per nursing staff.04/09: patient got OOB yesterday per her request. Congestive heart failure 10706920 I50.89 lasix 40 mg dailyweigh t stablemoni tor weights and s/s of heart failuretra ce edemaencou raged legs elevations and oksana bandages to bilateral lower extremitie s. Falls 830481303 R29.6 fall precaution sfrequent safety checks Essential hypertension 66974673 I10 stablelasi x 40 mg dailymonit or b/p and labs as outpt. Diabetes mellitus 285278 09 E11.9 stable readings under 150carb control dietsemagl utide 3 mg sq weeklymoni tor for s/s of hypo/hyper glycemiamo nitor A1c [id number] YUNG CALVILLO [address] [address] 05/01/2023 09:21:18 05/03/2023 14:11:33 Closed fracture of hip 800761797 S72.001A s/p fall 02/10 with right hip repair.tra madol 50 mg q6hr prnpatient stays in bed, refuses OOB per nursing staff.04/09: patient got OOB yesterday per her request. Congestive heart failure 01424703 I50.89 lasix 40 mg dailyweigh t stablemoni tor weights and s/s of heart failuretra ce edemaencou raged legs elevations and oksana bandages to bilateral lower extremitie s. Falls 467276676 R29.6 fall precaution sfrequent safety checks Essential hypertension 63135372 I10 stablelasi x 40 mg dailymonit or b/p and labs as outpt. Diabetes mellitus 063238 09 E11.9 stable readings under 150carb control dietsemagl utide 3 mg sq weeklymoni tor for s/s of hypo/hyper glycemiamo nitor A1c [id number] YUNG CALVILLO [address] [address] 05/08/2023 11:17:04 05/13/2023 16:10:41 Closed fracture of hip 035600969 S72.001A s/p fall 02/10 with right hip repair.tra madol 50 mg q6hr Congestive heart failure 92201493 I50.89 lasix 40 mg dailyweigh t stablemoni tor weights and s/s of heart failuretra ce edemaencou raged legs elevations and oksana bandages to bilateral lower extremitie s. Falls 905597441 R29.6 fall precaution sfrequent safety checks Essential hypertension 96759888 I10 stablelasi x 40 mg dailymonit or b/p and labs as outpt. Diabetes mellitus 137159 E11.9 stable readings under 150carb control dietsemagl utide 3 mg sq weeklymoni tor for s/s of hypo/hyper glycemiamo nitor A1c [id number] YUNG CALVILLO [address] [address] 05/15/2023 08:19:24 05/20/2023 15:40:14 Closed fracture of hip 248461876 S72.001A s/p fall 02/10 with right hip repair.tra madol 50 mg q6hr Congestive heart failure 67295485 I50.89 lasix 40 mg dailyweigh t stablemoni tor weights and s/s of heart failuretra ce edemaencou raged legs elevations and oksana bandages to bilateral lower extremitie s. Falls 659194472 R29.6 fall precaution sfrequent safety checks Essential hypertension 49021070 I10 stablelasi x 40 mg dailymonit or b/p and labs as outpt. Diabetes mellitus 091829 E11.9 stable readings under 150carb control dietsemagl utide 3 mg sq weeklymoni tor for s/s of hypo/hyper glycemiamo nitor A1c [id number] YUNG CALVILLO [address] [place] [address] rd [place] [address] 05/17/2023 15:20:25 05/21/2023 12:20:46 Closed fracture of hip 748060393 S72.001A s/p fall 02/10 with right hip repair.tra madol 50 mg q6hr Congestive heart failure 62339655 I50.89 lasix 40 mg dailyweigh t stablemoni tor weights and s/s of heart failuretra ce edemaencou raged legs elevations and oksana bandages to bilateral lower extremitie s. Falls 568496963 R29.6 fall precaution sfrequent safety checks Essential hypertension 25803639 I10 lasix 40 mg daily Diabetes mellitus 821287 09 E11.9 semaglutid e 3 mg sq weeklymoni tor for s/s of hypo/hyper glycemiamo nitor A1c Anemia 059847740 D50.8 Continue FeSO4 325 mg qd with vitamin C 500 mg BID, thiamine 100 mg qd and vitamin B12 1000 mcg q Aneurysm o f middle cerebral artery 331043348 I67.1 Ccarrying dx Chronic re spiratory failure 52577898 J96.11 supplement al O2 at 2 liters via ncfluticas one propion-sa lmeterol 500-50 mcg 1 inhalation bidspiriva 18 mcg 1 inhalation qdalbutero l neb 2.5 mg/3 ml q 4 hrs prnduo neb qidalbuter ol hfa 90 mcg 2 puffs q 4 hrs prn Coronary arteriosclerosis 33178800 I25.10 nitro 0.4 mg SL q 5 minutes [id number] atin 80 mg qdezetimib e 10 mg qdeliquis 5 mg bidASA 81 mg qdmonitor VS, labs Dizziness 602767608 R42 meclizine 12.5 mg bid prnmonitor as outpt Gastroesop hageal reflux disease without esophagitis 926681414 K21.9 dexilant 30 mg qddicyclom ine 10 mg qid prncarafat e 1 gm q hszofran 8 mg q12 hr prn Fibromyalgia 325957795 M 79.7 Continue duloxetine 30 mg qd Gout 82851404 M10.9 carrying dx Hypothyroidism 51825552 E03.8 Continue levothyrox ine 100 mcg qd Irritable bowel syndrome with diarrhea 034733667 K58.0 Continue dicyclomin e 10 mg qid prn Mixed hyperlipidemia 267 481996 E78.2 Continue atorvastat in 80 mg qd and ezetimibe 10 mg qd Nausea 259824507 R11.0 Continue Zofran 8 mg q 12 hrs prn. Obstructiv e sleep apnea syndrome 99286070 G47.33 Intolerant of cpap/bipap Continue supplement al O2 as above. Paroxysmal atrial fibrillation 352356407 I48.0 eliquis 5 mg bidtoprol 50 mg dailymonit or as outpt Vitamin D deficiency 347 08765 E55.9 Continue vitamin D3 1000 IU qdMonitor labs as outpt. 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 - DUAL ELIGIBLE - [facility] - SENIOR PLAN (MEDICARE REPLACEMENT/A DVANTAGE - HMO) [facility]arly [facility] [id number] [facility]23 2 MEDICARE B-ND: [employer] Carly Hotte [id number] [facility]/01/[address] [facility] - DUAL ELIGIBLE - [employer] - SENIOR PLAN (MEDICARE REPLACEMENT/A DVANTAGE - HMO) Carly Hotte [id number] [facility] 05/01/2023 2 MEDICARE B-ND: [employer] Calry Hotte [id number] Carly Hotte 05/08/[address] [facility] - DUAL ELIGIBLE - [employer] - SENIOR PLAN (MEDICARE REPLACEMENT/A DVANTAGE - HMO) Carly Hotte [id number] Carly Hotte 05/08/2023 2 MEDICARE B-ND: [employer] Carly Hotte [id number] Carly Hotte 05/15/[address] [facility] - DUAL ELIGIBLE - [facility] - [facility] PLAN (MEDICARE REPLACEMENT/A DVANTAGE - HMO) Carly Hotte [id number] Carly Hotte 05/15/2023 2 MEDICARE B-ND: [facility] Carly Hotte [id number] Carly Hotte 05/17/[address] [facility] - DUAL ELIGIBLE - [facility] - SENIOR PLAN (MEDICARE REPLACEMENT/A DVANTAGE - HMO) Carly Hotte [id number] Carly Hotte 05/17/2023 2 [facility] B[facility]ND: [facility] HOSPITAL SERVICES Carly Hotte [id number] Carly Hotte Notes Date Note Type Note Provider Name [...] no acute nursing concerns. YUNG CALVILLO [address] [facility], [address], [place], [address], [facility] 04/24/2023 13:13:25 05/01/2023 text/html 82 yr old [...] no acute nursing concerns. YUNG CALVILLO [address] [facility], [address], [place], [address], [facility] [employer] 05/01/2023 15:45:39 05/08/2023 text/html 82 yr old [...] no acute nursing concerns. YUNG CALVILLO [address] [facility], [address], [place], [address], [facility] 05/09/2023 09:20:31 05/15/2023 text/html 82 yr [...] for acute rounding visit. YUNG CALVILLO [address] [facility], [address], [place], [address], [facility] 05/16/2023 00:18:01 05/17/2023 text/html 82 yr [...] PT/OT and VNA services. YUNG CALVILLO [address] [facility], [address], [place], [address], [facility] 05/17/2023 15:28:55 OBGyn Episode No OBEpisode recorded.
[2024-07-17 17:13] LABS: Appearance Urine Clear; Color Urine Yellow; Glucose Urine UA Negative (Negative); Leukocyte Esterase Urine Negative (Negative); Nitrite Urine Negative (Negative); Urine Blood Negative (Negative); Urine Ketones Negative (Negative); Urine Protein Trace mg/dL (Neg-Trace)
[2024-07-17 17:50] LABS: Creatinine Urine 103.08 mg/dL
== END 2024-07-17 17:07 | disposition home or self-care (01) ==
LOC: HO.LNP 17:06
PROVIDERS: Visit Provider Internal Medicine
DX: E11.65 Type 2 diabetes mellitus with hyperglycemia (principal); R30.0 Dysuria
CPT/HCPCS: 81003; 82570

== ENCOUNTER 2024-09-11 11:11 | Outpatient (REF) | payer OTHER, SELFPAY ==
--- OUTSIDE RECORDS SUMMARY | 2024-09-11 11:18 | XMS_ITS | Clinical Summary ---
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 Name Role Phone Unavailable Primary Care Provider Unavailabl e Social History Tobacco Use Types Packs/Day Years Used Date Smoking Tobacco: Never Assessed Comments Unknown Sex and Gender Information Value Date Recorded Sex Assigned at Not on file Legal Sex Female 10:38 PM EDT Gender Identity Not on file Sexual Orientation Not on file Plan of Treatment Health Maintenance Due Date Last Done Comments DEPRESSION SCREENING 1952 OSTEOPOROSIS SCREENING INITIAL (ONE-TIME) 2005 RSV VACCINE (1 - 1-dose 75+ series) 05/11/2015 COVID-19 VACCINE ( - season) 2023 01/05/2021 Adult Td,Tdap Booster 11/21/2025 11/22/2015 ZOSTER VACCINES Completed 07/03/2018, 07/2017, 11/07/2015 PNEUMOCOCCAL VACCINES (50+ years) Completed 12/02/2020, 11/25/2019, 12/08/2018, Additional history exists HEPATITIS A VACCINES Aged Out No long er eligible based on patient's age to complete this topic HIB VACCINES Aged Out No longer eligi ble based on patient's age to complete this topic MENINGOCOCCAL VACCINES (ACWY) Aged Out No longer eligible based on patient's age to complete this topic MENINGOCOCCAL VACCINES (B) Aged Out N o longer eligible based on patient's age to complete this topic Medical Devices Not on file Insurance [employer] [place] [employer] [place] [phone] [employer] Additional Source Comments The information contained in this document represents components of the legal health record. It is not the complete legal health record.[facility]
--- OUTSIDE RECORDS SUMMARY | 2024-09-11 11:18 | XMS_ITS | Data Portability ---
Author Organization [facility], Main Office Address [address] [place] [address] Care Team Providers Care Director Private Name Role Phone RUTSY ROSEN 1ST FLOOR OTHER FLAVIA PURCELL Primary [...] and Address Organization Details Recorded Time Dizziness 928837003 Active 2021 Not Available [facility] 4 23:47:36 Vertebral artery occlusion 923838971 Active 2021 Not Available [facility] 4 23:47:36 Aneurysm of middle cerebral artery 220590427 Active 2021 Not Available [facility] 4 23:47:36 Low blood pressure 64981725 Active 2021 Not Available [facility] 4 23:47:36 Chronic respiratory failure 40765921 Active 2021 Not Available [facility] 4 23:47:36 Hypothyroidis m 75811314 Active 2021 Not Available [facility] 4 23:47:36 Diabetes mellitus 02893359 Active 2021 Not Available [facility] 4 23:47:36 Anemia 032550780 Active 2021 Not Available [facility] 4 23:47:36 Vitamin D deficiency 94357039 Active 2021 Not Available [facility] 4 23:47:36 Paroxysmal atrial fibrillation 639747773 Active 2021 Not Available [facility] 4 23:47:36 Falls 332656238 Active 2021 Not Available [facility] 4 23:47:36 Coronary arteriosclero sis 04066509 Active 2021 Not Available [facility] 4 23:47:36 Obesity 982692901 Active 2021 Not Available [facility] 4 23:47:36 Obstructive sleep apnea syndrome 62913133 Active 2021 Not Available [facility] 4 23:47:36 Essential hypertension 99788932 Active 2021 Not Available [facility] 4 23:47:36 Gastroesophag eal reflux disease without esophagitis 764328095 Active 2021 Not Available [facility] 4 23:47:36 Congestive heart failure 43528206 Active 2021 Not Available [facility] 4 23:47:36 Fibromyalgia 746455991 Active 2021 Not Available [facility] 4 23:47:36 Mixed hyperlipidemi a 229770597 Active 2021 Not Available [facility] 4 23:47:36 Gout 43792680 Active 2021 Not Available [facility] 4 23:47:36 Closed fracture of hip 918516718 Active 2022 Not Available [facility] 4 23:47:36 Nausea 740143468 Active 2023 Not Available [facility] 4 23:47:36 Irritable bowel syndrome with diarrhea 173132227 Active 2023 Not Available [facility] 4 23:47:36 Notes:Some problems listed i n Documents: #[id number], #[id number], #[id number] could not be added to this patient's chart. Please review these documents and add these problems to the patient's chart manually as needed. Problem Notes None recorded. Procedures Surgical History Date Name Laterality Status Provider Name and Address Organization Details Recorded Time appendectomy completed JAMAICA CHAO, DRILLING FIELD SPECIALIST [address], [address], [place], [address], [facility] [employer] [facility] 09/05/2021 14:35:03 Cholecystectomy completed JAMAICA CHAO, DRILLING FIELD SPECIALIST [address], [address], [place], [address], [facility] 09/05/2021 14:35:12 hysterectomy completed JAMAICA CHAO, DRILLING FIELD SPECIALIST [address], [address], [place], [address], [facility] 09/05/2021 14:35:20 procedure on heart completed JORDAN CHAO DRILLING FIELD SPECIALIST [address], [address], [place], [address], [facility] 09/05/2021 14:36:04 total shoulder replacement completed JAMAICA CHAO, DRILLING FIELD SPECIALIST [address], [address], [place], [address], [facility] 09/05/2021 14:36:27 procedure on vein completed JAMAICA CHAO, DRILLING FIELD SPECIALIST [address], [address], [place], [address], [facility] 09/05/2021 14:36:48 operation on stomach completed JAMAICA CHAO DRILLING FIELD SPECIALIST [address], [address], [place], [address], [facility] 09/05/2021 14:37:08 Imaging Results None recorded. Procedure Notes None recorded. Medical Equipment None Reported. Allergies Allergen ID Allergen Name Allergen Category Reaction Reaction Severity Criticality Documentation Date Start Date Code Code System Note Provider Name and Address Organization Details Recorded Time 89724 morphine medicatio n Not available Not available Not available 09/05/2021 7052 RxNorm JAMAICA CHAO, DRILLING FIELD SPECIALIST [address], [address], [place], [address], [facility] 2 14:28:42 75748 Lyrica medicatio n Not available Not available Not available 09/05/2021 13103 1 RxNorm JAMAICA JEREMIE, DRILLING FIELD SPECIALIST [address], [address], [place], [address], [facility] 2 14:28:48 Medications Name Sig Start Date Stop Date Status Note LastModified by Organization Details LastModified Time tramadol 50 mg tablet Take 1 tablet every 6 hours by oral route as needed. 023 active Not Available Not Available Not Avai lable Vitals Date Recorded Body height Body temperature Respiratory rate Heart rate Oxygen saturation Oxygen saturation in Arterial blood by Pulse oximetry Systolic And Diastolic Provider Name and Address Organization Details Last Updated DateTime 4 160.02 cm 98.3 [degF] 18 /min 97 /min 97 % 97 % 128/61 mm[Hg] YUNG CALVILLO [address], [address], [place], [address], [facility] 4 13:10:16 Date Recorded Body height Provider Name an d Address Organization Details Last Updated DateTime 05/01/2023 160.02 cm YUNG CALVILLO [address] [place] [address], [address], [place], [address], [facility] 05/01/2023 15:43:18 Date Recorded Body height Body temperature Heart rate Respiratory rate Systolic And Diastolic Provider Name and Address Organization Details Last Updated DateTime 4 160.02 cm 98 [degF] 77 /min 17 /min 130/72 mm[Hg] YUNG CALVILLO [address] [place] [address], [address], [place], [address], [facility] 4 13:03:17 Date Recorded Body height Body temperature Respiratory rate Heart rate Oxygen saturation Oxygen saturation in Arterial blood by Pulse oximetry Systolic And Diastolic Provider Name and Address Organization Details Last Updated DateTime 4 160.02 cm 97.9 [degF] 18 /min 87 /min 96 % 96 % 122/72 mm[Hg] YUNG CALVILLO [address] [facility], [address], [place], [address], [facility] 4 00:16:06 Social History Question Answer Notes LastModified by Organizat ion Details LastModified Time Tobacco Smoking Status Former Smoker quit about 1999 Verna Barney MD [address] [place] [address], [address], [place], [address], [facility] [employer] [facility] 02/19/2023 18:54:47 Do You Have An [...] Do You Have A Medical Power Of Combination Building Inspector? Yes HCP On File Information not available [...] 50 mcg/0.25mL dose 1 completed Not Available [facility] 04/08/2023 23:47:37 COVID-19, mRNA, LNP-S, PF, 100 mcg/0.5mL dose or 50 mcg/0.25mL dose 2 completed Not [facility] 04/08/2023 23:47:37 Tdap 6 completed Not Available [facility] 04/08/2023 23:47:37 Influenza, split virus, quadrivalent, preservative 1 completed Not Available [facility] 04/08/2023 23:47:37 pneumococcal polysaccharide PPV23 1 completed Not Available [facility] 04/08/2023 23:47:37 pneumococcal polysaccharide PPV23 9 completed Not Available [facility] 04/08/2023 23:47:37 Pneumococcal conjugate PCV 13 0 completed Not Available [facility] 04/08/2023 23:47:37 zoster, unspecified formulation 8 completed Not Available [facility] 04/08/2023 23:47:37 zoster, unspecified formulation 9 completed Not Available [facility] 04/08/2023 23:47:37 zoster, unspecified formulation 6 completed Not Available [facility] 04/08/2023 23:47:37 Influenza, adjuvanted, quadrivalent, PF 3 completed Not Available [facility] 04/08/2023 23:47:37 Past Encounters Encounter ID Performer Location Encounter Start Date Encounter Closed Date Diagnosis/Indication Diagnosis SNOMED-CT Code Diagnosis ICD10 Code Diagnosis Note [id number] YUNG EGAN [address] [address] 09/05/2021 11:46:21 09/07/2021 08:06:00 Dizziness 198742238 R42 meclizine 12.5 mg bid prn monitor Low blood pressure 51005 003 I95.89 lasix 40 mg bid and losartan 50 mg qd discontinu ed in hospital for now monitor b/p and add back as able Vertebral artery occlusion 468638239 I65.02 needs to have a appt with outpatient [facility] neurosurge ry monitor Aneurysm o f middle cerebral artery 287677457 I67.1 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 will need to have outpatient appt with [facility] neurosurge ry [place] 899880571 R29.6 PT/OT eval and treat prn monitor for safety Essential hypertension 65125595 I10 ASA 81 mg qd diltiazem 120 mg qd carvedilol 25 mg bid lasix and losartan discontinu ed-watch to be able to add back monitor b/p and labs Coronary arteriosclerosis 61578763 I25.10 nitro 0.4 mg SL q 5 minutes x3 atorvastat in 40 mg qd ezetimibe 10 mg qd eliquis 5 mg bid ASA 81 mg qd diltiazem 120 mg qd carvedilol 25 mg bid monitor Diabetes mellitus 172577 09 E11.9 carb control diet glucose check bid semaglutid e 1.5 mg sq weekly monitor for s/s of hypo/hyper glycemia monitor A1c Congestive heart failure 38696558 I50.89 was on lasix 40 mg bid-monito r for need to add back monitor weights and s/s of heart failure Chronic re spiratory failure 87363456 J96.10 secondary to COPD oxygen at 2 liters via id fluticason e propion-sa lmeterol 500-50 mcg 1 inhalation bid spiriva 18 mcg 1 inhalation qd mucinex 600 mg bid prn albuterol neb 2.5 mg/3 ml q 4 hrs prn duo neb qid albuterol hfa 90 mcg 2 puffs q 4 hrs prn monitor for respirator y symptoms Anemia 970038820 D50.8 vitamin B12 1000 mcg IM q 4 weeks vitamin C 500 mg bid ferrous sulfate 325 mg qd monitor labs Fibromyalgia 848733351 M 79.7 duloxetine 30 mg qd meloxicam 7.5 mg qd tylenol 650 mg q 4 hrs prn monitor pain Gastroesop hageal reflux disease without esophagitis 944343491 K21.9 dexilant 30 mg qd dicyclomin e 10 mg qid prn carafate 1 gm q hs monitor for symptoms Hypothyroidism 02934639 E03.8 levothyrox ine 100 mcg qd monitor labs Mixed hyperlipidemia 267 083572 E78.2 atorvastat in 40 mg qd ezetimibe 10 mg qd questran 4 gms qid monitor labs Obesity 863121699 E66.9 encourage good choices facility manager histology consult as needed monitor Paroxysmal atrial fibrillation 481172056 I48.0 eliquis 5 mg bid carvedilol 25 mg bid diltiazem 120 mg qd monitor rate and rhythm Obstructiv e sleep apnea syndrome 07718042 G47.33 not on cpap/bipap uses oxygen at 2 liters via nc monitor Vitamin D deficiency 347 40593 E55.9 vitamin D3 1000 iu qd monitor labs Gout 09598101 M10.9 she notes she has gout on/off in bilateral great toes they are noted to be slightly red may need to give prednisone burst if continues monitor [id number] Efren Hobson MD [address] [address] 09/06/2021 09:47:43 09/11/2021 20:47:26 Dizziness 713840069 R42 see above continued on meclizine 12.5 mg bid prn monitor utilizatio n Low blood pressure 40102 003 I95.89 see HPIhtn/hyp o tensionnow with losartan and lasix heldcontin ued on coreg 25 mg bidmonitor bp and need to adjust Vertebral artery occlusion 344553862 I65.02 eval by neuro now onasa 81 mg qdlipitor 40 mg qdmonitor for sx Aneurysm o f middle cerebral artery 675550979 I67.1 see HPIright MCA aneurysm 4.6 mmto f/u with neurosurge rymonitor for sxupdate neurosurge ry with concernsmo nitor bp [place] 584666360 R29.6 PT OT eval and treatmonit or fall risk Essential hypertension 72189869 I10 medication s adjusted during hospitaliz ationnow oncoreg 25 mg biddiltiaz em 120 mg qdmonitor bp and need to adjust with lasix and losartan held Coronary arteriosclerosis 01777998 I25.10 at baseline added to PMHlipitor 40 mg qdasa 81 mg qdcoreg 25 mg bidmonitor for sxcards eval prn Diabetes mellitus 407110 09 E11.9 continue current medication smonitor blood glucose and need to adjust Congestive heart failure 93981997 I50.22 see abovecarry ing dxnow off lasixmonit or respirator y function and fluid status Anemia 618605907 D50.8 continue supplement smonitor cbciron studies prn Fibromyalgia 423489379 M 79.7 added to PMHcontinu e out patient meds Gastroesop hageal reflux disease without esophagitis 705632056 K21.9 stable on out patient medsmonito r sxupdate GI with concerns Hypothyroidism 83351313 E03.8 synthroid 100 mcg qdtsh prn Mixed hyperlipidemia 267 835788 E78.2 with baseline cadcontinu e statin and zetia Obesity 214214997 E66.09 dietary to eval Paroxysmal atrial fibrillation 250607527 I48.0 eliquis 5 mg bidcoreg 25 mg bidmonitor for rate control Obstructiv e sleep apnea syndrome 13893047 G47.33 added to PMHdoes not utilize cpap Chronic ob structive pulmonary disease 59430133 J41.1 baseline copd on O2 by 2 liters NC at baselineco ntinue out patient medsmonito r respirator y statuspulm onary eval prn [id number] YUNG EGAN [address] [address] 09/15/2021 13:21:28 09/19/2021 11:48:58 Dizziness 420376817 R42 meclizine 12.5 mg bid prn monitor Vertebral artery occlusion 383894491 I65.02 needs to have a appt with outpatient [facility] neurosurge ry monitor Aneurysm o f middle cerebral artery 520548336 I67.1 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 will need to have outpatient appt with [facility] neurosurge ry [place] 402534255 R29.6 PT/OT eval and treat prn monitor for safety Essential hypertension 06711447 I10 ASA 81 mg qd diltiazem 120 mg qd carvedilol 25 mg bid monitor b/p and labs Coronary arteriosclerosis 87985534 I25.10 nitro 0.4 mg SL q 5 minutes x3 atorvastat in 40 mg qd ezetimibe 10 mg qd eliquis 5 mg bid ASA 81 mg qd diltiazem 120 mg qd carvedilol 25 mg bid monitor Diabetes mellitus 684461 09 E11.9 carb control diet glucose check bid semaglutid e 1.5 mg sq weekly monitor for s/s of hypo/hyper glycemia monitor A1c Congestive heart failure 66273753 I50.89 not on diuretic at this time monitor weights and s/s of heart failure Chronic re spiratory failure 40392898 J96.10 secondary to COPD oxygen at 2 liters via nc fluticason e propion-sa lmeterol 500-50 mcg 1 inhalation bid spiriva 18 mcg 1 inhalation qd mucinex 600 mg bid prn albuterol neb 2.5 mg/3 ml q 4 hrs prn duo neb qid albuterol hfa 90 mcg 2 puffs q 4 hrs prn monitor for respirator y symptoms Anemia 924627432 D50.8 vitamin C 500 mg bid ferrous sulfate 325 mg qd monitor labs Fibromyalgia 269052778 M 79.7 duloxetine 30 mg qd meloxicam 7.5 mg qd tylenol 650 mg q 4 hrs prn monitor pain Gastroesop hageal reflux disease without esophagitis 155536360 K21.9 dexilant 30 mg qd dicyclomin e 10 mg qid prn carafate 1 gm q hs monitor for symptoms Hypothyroidism 26225480 E03.8 levothyrox ine 100 mcg qd monitor labs Mixed hyperlipidemia 267 253055 E78.2 atorvastat in 40 mg qd ezetimibe 10 mg qd questran 4 gms qid monitor labs Obesity 305767208 E66.9 encourage good choices facility manager histology consult as needed monitor Paroxysmal atrial fibrillation 955542288 I48.0 eliquis 5 mg bid carvedilol 25 mg bid diltiazem 120 mg qd monitor rate and rhythm Obstructiv e sleep apnea syndrome 96370898 G47.33 not on cpap/bipap uses oxygen at 2 liters via id monitor Vitamin D deficiency 347 12860 E55.9 vitamin D3 1000 iu qd monitor labs Gout 56395971 M10.9 she notes she has gout on/off in bilateral great toes monitor Acute urin dom tract infection 577754172 N39.0 keflex 250 mg q 6 hrs x 3 days probiotic bid x 6 days monitor for resolution [id number] YUNG EGAN [facility] [address] [address] 09/18/2021 10:54:07 09/20/2021 15:18:56 Chronic respiratory failure 24276320 J96.10 secondary to COPD oxygen at 2 liters via id fluticason e propion-sa lmeterol 500-50 mcg 1 inhalation bid spiriva 18 mcg 1 inhalation qd mucinex 600 mg bid prn albuterol neb 2.5 mg/3 ml q 4 hrs prn duo neb qid albuterol hfa 90 mcg 2 puffs q 4 hrs prn monitor for respirator y symptoms Essential hypertension 61573215 I10 ASA 81 mg qd eliquis 5 mg bid diltiazem 120 mg qd carvedilol 25 mg bid monitor b/p and labs [id number] RADHA YODER NP [facility] [address] [address] 09/21/2021 08:34:12 09/26/2021 14:28:17 Acute urinary tract infection 457311780 N39.0 keflex 250 mg q 6 hrs x 3 days completecl inically improvedMo nitor for sx. as outpt. Dizziness 568425972 R42 continue meclizine 12.5 mg bid prn monitor as outpt Aneurysm o f middle cerebral artery 369911987 I67.1 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continue asa and statinneed s outpatient appt with [facility] neuro[facility]ge [facility] [place] 773703597 R29.6 PT/OT eval and treat - meeting goals for d/c home monitor for safety as outpt Essential hypertension 70816550 I10 Prior issues low BP, taken off lasix 40 mg bid and losartan 50 mg qd in the hospitalNo issues with low BP hereCurren tly on: diltiazem 120 mg qd carvedilol 25 mg bid monitor b/p and labs as outpt. Coronary arteriosclerosis 32567921 I25.10 Continue current meds:nitro 0.4 mg SL q 5 minutes x3 atorvastat in 40 mg qd ezetimibe 10 mg qd eliquis 5 mg bid ASA 81 mg qd diltiazem 120 mg qd carvedilol 25 mg bid monitor VS, labs, CP status as outpt. Diabetes mellitus 211234 09 E11.9 Conitnue:c arb control diet semaglutid e 1.5 mg sq weekly monitor for s/s of hypo/hyper glycemia - no issues here monitor A1c Congestive heart failure 37995791 I50.89 not on diuretic at this time monitor weights and s/s of heart failure Chronic re spiratory failure 87610014 J96.10 secondary to COPDContin ue: oxygen at 2 liters via nc fluticason e propion-sa lmeterol 500-50 mcg 1 inhalation bid spiriva 18 mcg 1 inhalation qd mucinex 600 mg bid albuterol neb 2.5 mg/3 ml q 4 hrs prn duo neb qid albuterol hfa 90 mcg 2 puffs q 4 hrs prn monitor respirator y symptoms as outpt. Anemia 963305005 D50.8 Continue:v itamin C 500 mg bid ferrous sulfate 325 mg qd monitor CBC, s/s active bleeding as outpt. Fibromyalgia 850376505 M 79.7 Continue:d uloxetine 30 mg qd meloxicam 7.5 mg qd tylenol 650 mg q 4 hrs prn monitor pain Gastroesop hageal reflux disease without esophagitis 366660306 K21.9 Continue:d exilant 30 mg qd dicyclomin e 10 mg qid prn carafate 1 gm q hs monitor for symptoms Hypothyroidism 58109241 E03.8 continue levothyrox ine 100 mcg qd monitor labs Mixed hyperlipidemia 267 816006 E78.2 continue:a torvastati n 40 mg qd ezetimibe 10 mg qd questran 4 gms qid monitor labs Paroxysmal atrial fibrillation 791451690 I48.0 continue:e liquis 5 mg bid carvedilol 25 mg bid diltiazem 120 mg qd monitor as outpt Obstructiv e sleep apnea syndrome 31421973 G47.33 not on cpap/bipap uses oxygen at 2 liters via nc monitor Vitamin D deficiency 347 68476 E55.9 vitamin D3 1000 iu qd monitor labs [id number] CONNOR NOVAK [address] [place] [address] rd [place] [address] 02/13/2023 10:15:03 02/26/2023 10:04:21 [place] 431194545 R29.6 PT OT eval and treatfall precaution sfrequent safety checks Dizziness 517843247 R42 meclizine 12.5 mg bid prnmonitor as outpt Essential hypertension 48435567 I10 lasix 40 mg dailymonit or b/p and labs as outpt. Coronary arteriosclerosis 09992072 I25.10 nitro 0.4 mg SL q 5 minutes m6risaiddz atin 80 mg qdezetimib e 10 mg qdeliquis 5 mg bidASA 81 mg qdmonitor VS, labs, CP status as outpt. Diabetes mellitus 915719 09 E11.9 carb control dietsemagl utide 3 mg sq weeklymoni tor for s/s of hypo/hyper glycemiamo nitor A1c Congestive heart failure 81398141 I50.89 lasix 40 mg dailymonit or weights and s/s of heart failure Chronic re spiratory failure 82247819 J96.10 oxygen at 2 liters via id fluticason e propion-sa lmeterol 500-50 mcg 1 inhalation bidspiriva 18 mcg 1 inhalation qdalbutero l neb 2.5 mg/3 ml q 4 hrs prnduo neb qidalbuter ol hfa 90 mcg 2 puffs q 4 hrs prnmonitor respirator y symptoms as outpt. Paroxysmal atrial fibrillation 703375641 I48.0 eliquis 5 mg bidtoprol 50 mg dailymonit or as outpt Anemia 657463297 D50.8 vitamin C 500 mg bidferrous sulfate 325 mg qdthiamine 100 mg [id number] 1000 om monthlymon itor CBC Fibromyalgia 386090540 M 79.7 duloxetine 30 mg qdtylenol 650 mg q 4 hrs prnmonitor pain Gastroesop hageal reflux disease without esophagitis 102945778 K21.9 dexilant 30 mg qddicyclom ine 10 mg qid prncarafat e 1 gm q hszofran 8 mg q12 hr prnmonitor for symptoms Hypothyroidism 50566028 E03.8 levothyrox ine 100 mcg qdmonitor labs Mixed hyperlipidemia 267 247014 E78.2 atorvastat in 80 mg qdezetimib e 10 mg qdmonitor labs Obstructiv e sleep apnea syndrome 79665126 G47.33 not on cpap/bipap uses oxygen at 2 liters via nc monitor Vitamin D deficiency 347 62273 E55.9 vitamin D3 1000 iu qd monitor labs Closed fra cture of hip 747278522 S72.001A followup with ortho in 2 weekstrama dol 50 mg q6hr prnmonitor surgical incision for s/s infection [id number] SARAH PETERSON NP [address] [address] 02/15/2023 09:53:27 02/26/2023 11:30:23 Dizziness 338055006 R42 meclizine 25 mg tidmonitor as outpt Closed fra cture of hip 166057644 S72.001A followup with ortho in 2 weekstrama dol 50 mg q6hr prnmonitor surgical incision for s/s infection Congestive heart failure 57137208 I50.89 lasix 40 mg dailymonit or weights and s/s of heart failure [id number] Verna Barney MD [address] [address] 02/19/2023 13:15:20 02/26/2023 13:59:05 [place] 444669690 R29.6 As above. Closed fra cture of hip 636021346 S72.041D Poor cooperatio n with rehab.Very deconditio [place].Needs PT/OT for strengthen ing, balance, gait training, safety and function.C ontinue fall precaution s.Monitor for safety.Con tinue tramadol 50 mg q 6 hrs prnWill add APAP 1000 mg TID,Monito r surgical incision.F /U with ortho as planned Dizziness 097870179 R42 Not clearly vertigo, could be orthostati c hypotensio n.Will check orthostati c vitals BID x 2 days.Tracy nue meclizine 25 mg TIDMonitor sxs Essential hypertension 69413177 I10 Good control lasix 40 mg qd and metoprolol 50 mg qd.Monitor BP and labs. Coronary arteriosclerosis 71290472 I25.10 No current sxs.Contin ue meds as above and NTG 0.4 mg SL q 5 minutes x3 prn, atorvastat in 80 mg qd, ezetimibe 10 mg qd and ASA 81 mg qdMonitor sxs and vital.F/U with cardio prn. Diabetes mellitus 498803 09 E11.9 In excellent control since here.Tracy nue semaglutid e 3 mg sq weekly and SSI.Will decrease fingerstic ks to fasting and monitor HgA1C q 3 months. Congestive heart failure 55805964 I50.89 Appears euvolemic. Continue meds as above.Urmila tor resp. status, fluid status, wts and labs. Chronic re spiratory failure 75765081 J96.11 At baseline.C ontinue supplement al O2 at 2 liters by DC.Duonebs are supposed to be qid scheduled, but written as prn, will change.Con tinue Advair 500/50 mcg BID, spiriva 18 mcg qd, albuterol nebs q 6 hrs prn, and albuterol HFA 90 mcg 2 puffs q 4 hrs prn.Monito r resp status. Paroxysmal atrial fibrillation 150585281 I48.0 Rate in good control on meds as above.Cont inue eliquis 5 mg BID for AC.Monitor HR and bleeding risk. Anemia 231817161 D50.8 With minimal drop post-op.Co ntinue FeSO4 325 mg qd with vitamin C 500 mg BID, thiamine 100 mg qd and vitamin B12 1000 mcg q monthMonit or labs. Fibromyalgia 763261124 M 79.7 Continue duloxetine 30 mg qdAlso currently on tramadol and APAP for hip fx.Monitor sxs. Gastroesop hageal reflux disease without esophagitis 951103120 K21.9 No current sxs.Contin ue omeprazole 20 mg qd and zofran 8 mg q 12 hrs prnMonitor for sxs Hypothyroidism 41783791 E03.8 Last TSH 4.82 in 11/2022 with nl FT4.Contin ue levothyrox ine 100 mcg qdMonitor labs prn Mixed hyperlipidemia 267 982014 E78.2 Continue atorvastat in 80 mg qd and ezetimibe 10 mg qdMonitor labs as outpt. Obstructiv e sleep apnea syndrome 77367107 G47.33 Intolerant of cpap/bipap Continue supplement al O2 as above.Urmila tor sats. Vitamin D deficiency 347 74581 E55.9 Continue vitamin D3 1000 IU qdMonitor labs as outpt. Aneurysm o f middle cerebral artery 804516216 I67.1 Hx of 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Saw neurosurg several times, imaging showed stable size.Decis ion for conservati ve tx due to other medical problems.W ould embolize only if sxs of severe [place]. Nausea [id number] R11.0 Pt. thinks from eye problem as it was there before fallContin ue Zofran 8 mg q 12 hrs prn.F/U with eye dr as planned.Wi ll have nursing try and figure out when appt is. Irritable bowel syndrome with diarrhea 162405598 K58.0 Continue dicyclomin e 10 mg qid prnPt. not interested in trying imodium.Mo nitor bowel habits. [id number] CONNOR NOVAK [address] [place] [phone] 02/22/2023 12:34:39 02/26/2023 15:08:05 Congestive heart failure 82223656 I50.89 lasix 40 mg dailymonit or weights and s/s of heart failure Dizziness 169371523 R42 meclizine 25 mg tidmonitor as outpt Closed fra cture of hip 234476032 S72.001A followup with ortho in 2 weekstrama dol 50 mg q6hr prnmonitor surgical incision for s/s infection [id number] YUNG CALVILLO [address] [place] [address] 5 02/26/2023 11:35:20 03/06/2023 12:35:17 Falls 805325972 R29.6 PT OT eval and treatfall precaution sfrequent safety checks Closed fra cture of hip [id number] S72.001A follow up with ortho in 2 weekstrama dol 50 mg q6hr prnmonitor surgical incision for s/s infection Dizziness 676001176 R42 meclizine 12.5 mg bid prnmonitor as outpt Essential hypertension 41538189 I10 stablelasi x 40 mg dailymonit or b/p and labs as outpt. Coronary arteriosclerosis 45978927 I25.10 02/26/23 denies chest discomfort nitro 0.4 mg SL q 5 minutes [id number] atin 80 mg qdezetimib e 10 mg qdeliquis 5 mg bidASA 81 mg qdmonitor VS, labs, CP status as outpt. Diabetes mellitus 561182 09 E11.9 stable readings under 150carb control dietsemagl utide 3 mg sq weeklymoni tor for s/s of hypo/hyper glycemiamo nitor A1c Congestive heart failure 59881461 I50.89 lasix 40 mg dailymonit or weights and s/s of heart failure Chronic re spiratory failure 97318984 J96.10 oxygen at 2 liters via nc fluticason e propion-sa lmeterol 500-50 mcg 1 inhalation bidspiriva 18 mcg 1 inhalation qdalbutero l neb 2.5 mg/3 ml q 4 hrs prnduo neb qidalbuter ol hfa 90 mcg 2 puffs q 4 hrs prnmonitor respirator y symptoms as outpt. Paroxysmal atrial fibrillation 289082651 I48.0 eliquis 5 mg bidtoprol 50 mg dailymonit or as outpt Gastroesop hageal reflux disease without esophagitis 531371942 K21.9 dexilant 30 mg qddicyclom ine 10 mg qid prncarafat e 1 gm q hszofran 8 mg q12 hr prnmonitor for symptoms [id number] YUNG CALVILLO JESSIKA [address] [place] [address] [place] [phone] 02/28/2023 09:39:57 03/06/2023 13:35:24 Closed fracture of hip 897240998 S72.001A staple intactappt to remove later today.tram adol 50 mg q6hr prnmonitor surgical incision for s/s infection Dizziness 534584641 R42 meclizine 12.5 mg bid prnmonitor as outpt Essential hypertension 38240643 I10 stablelasi x 40 mg dailymonit or b/p and labs as outpt. Coronary arteriosclerosis 23757371 I25.10 02/26/23 denies chest discomfort nitro 0.4 mg SL q 5 minutes [id number] atin 80 mg qdezetimib e 10 mg qdeliquis 5 mg bidASA 81 mg qdmonitor VS, labs, CP status as outpt. Diabetes mellitus 765763 09 E11.9 stable readings under 150carb control dietsemagl utide 3 mg sq weeklymoni tor for s/s of hypo/hyper glycemiamo nitor A1c Congestive heart failure 36728770 I50.89 lasix 40 mg dailymonit or weights and s/s of heart failure Chronic re spiratory failure 80419668 J96.10 oxygen at 2 liters via nc fluticason e propion-sa lmeterol 500-50 mcg 1 inhalation bidspiriva 18 mcg 1 inhalation qdalbutero l neb 2.5 mg/3 ml q 4 hrs prnduo neb qidalbuter ol hfa 90 mcg 2 puffs q 4 hrs prnmonitor respirator y symptoms as outpt. Paroxysmal atrial fibrillation 293997192 I48.0 eliquis 5 mg bidtoprol 50 mg dailymonit or as outpt Gastroesop hageal reflux disease without esophagitis 111619347 K21.9 dexilant 30 mg qddicyclom ine 10 mg qid prncarafat e 1 gm q hszofran 8 mg q12 hr prnmonitor for symptoms [id number] YUNG CALVILLO JESSIKA [address] [place] [phone] 03/04/2023 11:36:26 03/06/2023 14:27:58 Closed fracture of hip 850209210 S72.001A anisa removed 02/28/11tra madol 50 mg q6hr prnmonitor surgical incision for s/s infection Dizziness 343258259 R42 reports that she has not been working with PT due to dizziness. Patient encouraged to utilized prnnursing to assess for dizziness. meclizine 12.5 mg bid prnmonitor as outpt Essential hypertension 88906837 I10 stablelasi x 40 mg dailymonit or b/p and labs as outpt. Congestive heart failure 87092742 I50.89 lasix 40 mg dailymonit or weights and s/s of heart failuretra ce edema noted to ble. Chronic re spiratory failure 50027616 J96.10 oxygen at 2 liters via nc fluticason e propion-sa lmeterol 500-50 mcg 1 inhalation bidspiriva 18 mcg 1 inhalation qdalbutero l neb 2.5 mg/3 ml q 4 hrs prnduo neb qidalbuter ol hfa 90 mcg 2 puffs q 4 hrs prnmonitor respirator y symptoms as outpt. Paroxysmal atrial fibrillation 697647522 I48.0 eliquis 5 mg bidtoprol 50 mg dailymonit or as outpt Gastroesop hageal reflux disease without esophagitis 720499087 K21.9 dexilant 30 mg qddicyclom ine 10 mg qid prncarafat e 1 gm q hszofran 8 mg q12 hr prnmonitor for symptoms [id number] YUNG CALVILLO [address] [place] [address] 03/07/2023 10:08:49 03/11/2023 15:58:17 Closed fracture of hip 315603100 S72.001A right hip with minimal swelling, no s/sx of infection. anisa removed 02/28/11tra madol 50 mg q6hr prnmonitor surgical incision for s/s infection Dizziness 300987666 R42 reports that she has not been working with PT due to dizziness. Patient is encouraged to take prn meclizine prior to therapy.Hung kimball encouraged to utilized prnnursing to assess for dizziness. meclizine 12.5 mg bid prnmonitor as outpt Essential hypertension 10428506 I10 stablelasi x 40 mg dailymonit or b/p and labs as outpt. Congestive heart failure 16612014 I50.89 lasix 40 mg dailymonit or weights and s/s of heart failuretra ce edema noted to ble. Chronic re spiratory failure 85624246 J96.10 oxygen at 2 liters via id fluticason e propion-sa lmeterol 500-50 mcg 1 inhalation bidspiriva 18 mcg 1 inhalation qdalbutero l neb 2.5 mg/3 ml q 4 hrs prnduo neb qidalbuter ol hfa 90 mcg 2 puffs q 4 hrs prnmonitor respirator y symptoms as outpt. Paroxysmal atrial fibrillation 339921399 I48.0 eliquis 5 mg bidtoprol 50 mg dailymonit or as outpt Gastroesop hageal reflux disease without esophagitis 148130122 K21.9 dexilant 30 mg qddicyclom ine 10 mg qid prncarafat e 1 gm q hszofran 8 mg q12 hr prnmonitor for symptoms [id number] YUNG CALVILLO RUSTY ROSEN [address] [place] [address] [place] [address] 03/12/2023 07:48:41 03/15/2023 08:33:06 Closed fracture of hip 633719050 S72.001A right hip with minimal swelling, no s/sx of infection. anisa removed 02/28/11tra madol 50 mg q6hr prnmonitor surgical incision for s/s infection Dizziness 004566313 R42 reports improvemen tmeclizine prior to therapy.Hung kimball encouraged to utilized prnnursing to assess for dizziness. meclizine 12.5 mg bid prnmonitor as outpt Essential hypertension 20316250 I10 stablelasi x 40 mg dailymonit or b/p and labs as outpt. Congestive heart failure 33379873 I50.89 lasix 40 mg dailymonit or weights and s/s of heart failuretra ce edema noted to ble. Chronic re spiratory failure 73562257 J96.10 oxygen at 2 liters via nc fluticason e propion-sa lmeterol 500-50 mcg 1 inhalation bidspiriva 18 mcg 1 inhalation qdalbutero l neb 2.5 mg/3 ml q 4 hrs prnduo neb qidalbuter ol hfa 90 mcg 2 puffs q 4 hrs prnmonitor respirator y symptoms as outpt. Paroxysmal atrial fibrillation 564540596 I48.0 eliquis 5 mg bidtoprol 50 mg dailymonit or as outpt Gastroesop hageal reflux disease without esophagitis 201067519 K21.9 dexilant 30 mg qddicyclom ine 10 mg qid prncarafat e 1 gm q hszofran 8 mg q12 hr prnmonitor for symptoms [id number] YUNG CALVILLO RUSTY ROSEN [address] [place] [address] [place] [address] 03/15/2023 08:18:00 03/20/2023 11:41:33 Closed fracture of hip 291645311 S72.001A right hip with minimal swelling, no s/sx of infection. anisa removed 02/28/11tra madol 50 mg q6hr prnmonitor surgical incision for s/s infection Dizziness 661052690 R42 meclizine 12.5 mg bid prnmonitor as outpt Essential hypertension 64582780 I10 stablelasi x 40 mg dailymonit or b/p and labs as outpt. Congestive heart failure 21824344 I50.89 lasix 40 mg dailymonit or weights and s/s of heart failure2+ edema noted to lower ankles Chronic re spiratory failure 03205905 J96.10 O2 dependento xygen at 2 liters via nc fluticason e propion-sa lmeterol 500-50 mcg 1 inhalation bidspiriva 18 mcg 1 inhalation qdalbutero l neb 2.5 mg/3 ml q 4 hrs prnduo neb qidalbuter ol hfa 90 mcg 2 puffs q 4 hrs prnmonitor respirator y symptoms as outpt. Paroxysmal atrial fibrillation 284987005 I48.0 eliquis 5 mg bidtoprol 50 mg dailymonit or as outpt Gastroesop hageal reflux disease without esophagitis 017888970 K21.9 dexilant 30 mg qddicyclom ine 10 mg qid prncarafat e 1 gm q hszofran 8 mg q12 hr prnmonitor for symptoms [id number] YUNG CALVILLO [address] [address] 03/18/2023 07:52:24 04/02/2023 15:36:02 Closed fracture of hip 571895324 S72.001A right hip with minimal swelling, no s/sx of infection. anisa removed 02/28/11tra madol 50 mg q6hr prnmonitor surgical incision for s/s infection Dizziness 748295934 R42 meclizine 12.5 mg bid prnmonitor as outpt Essential hypertension 05482695 I10 stablelasi x 40 mg dailymonit or b/p and labs as outpt. Congestive heart failure 70963292 I50.89 weight today 204 up 3 lbs from 201 on 03/16- may need to give additional lasix , will monitorlas ix 40 mg dailymonit or weights and s/s of heart failure2+ edema noted to lower ankles Chronic re spiratory failure 76625890 J96.10 O2 dependento xygen at 2 liters via id fluticason e propion-sa lmeterol 500-50 mcg 1 inhalation bidspiriva 18 mcg 1 inhalation qdalbutero l neb 2.5 mg/3 ml q 4 hrs prnduo neb qidalbuter ol hfa 90 mcg 2 puffs q 4 hrs prnmonitor respirator y symptoms as outpt. Paroxysmal atrial fibrillation 261996046 I48.0 eliquis 5 mg bidtoprol 50 mg dailymonit or as outpt [id number] YUNG CALVILLO [address] [address] 03/25/2023 11:40:05 03/27/2023 15:02:29 Closed fracture of hip 900259709 S72.001A right hip with minimal swelling, no s/sx of infection. anisa removed 02/28/11tra madol 50 mg q6hr prn Dizziness 899724477 R42 meclizine 12.5 mg bid prnmonitor as outpt Essential hypertension 33502439 I10 stablelasi x 40 mg dailymonit or b/p and labs as outpt. Congestive heart failure 76213133 I50.89 lasix 40 mg dailymonit or weights and s/s of heart failure1-2 + edema noted to lower ankles Chronic re spiratory failure 92160040 J96.10 supplement al O2 at 2 liters via id fluticason e propion-sa lmeterol 500-50 mcg 1 inhalation bidspiriva 18 mcg 1 inhalation qdalbutero l neb 2.5 mg/3 ml q 4 hrs prnduo neb qidalbuter ol hfa 90 mcg 2 puffs q 4 hrs prnmonitor respirator y symptoms as outpt. Paroxysmal atrial fibrillation 766176039 I48.0 eliquis 5 mg bidtoprol 50 mg dailymonit or as outpt [id number] YUNG CALVILLO [address] [address] 04/01/2023 07:59:04 04/04/2023 13:27:21 Closed fracture of hip 806110110 S72.001A right hip with minimal swelling, no s/sx of infection. anisa removed 02/28/11tra madol 50 mg q6hr prn Congestive heart failure 46343496 I50.89 lasix 40 mg dailymonit or weights and s/s of heart failure1-2 + edema noted to lower anklesenco uraged legs elevations and oksana bandages to bilateral lower extremitie s. Falls 465548586 R29.6 PT/OT prnfall precaution sfrequent safety checks [id number] YUNG CALVILLO [address] [address] 04/04/2023 14:04:47 04/08/2023 12:33:49 Closed fracture of hip 673218279 S72.001A s/p fall 02/10 with right hip repair.tra madol 50 mg q6hr prnpatient stays in bed, refuses OOB per nursing staff. Congestive heart failure 85301491 I50.89 lasix 40 mg dailymonit or weights and s/s of heart failure1-2 + edema noted to lower anklesenco uraged legs elevations and oksana bandages to bilateral lower extremitie s. Falls 488930280 R29.6 fall precaution sfrequent safety checks [id number] YUNG CALVILLO [address] [address] 04/10/2023 08:45:25 04/11/2023 18:26:36 Closed fracture of hip 765049955 S72.001A s/p fall 02/10 with right hip repair.tra madol 50 mg q6hr prnpatient stays in bed, refuses OOB per nursing staff.04/09: patient got OOB yesterday per her request. Congestive heart failure 55042724 I50.89 lasix 40 mg dailymonit or weights and s/s of heart failure1-2 + edema noted to lower anklesenco uraged legs elevations and oksana bandages to bilateral lower extremitie s. Falls 623430959 R29.6 fall precaution sfrequent safety checks [id number] Verna Barney MD [address] [place] [address] 04/12/2023 18:36:04 04/16/2023 11:21:31 Closed fracture of hip 572206328 S72.041D Has recovered from fx, but mobility is still an issue.Will have lots of help at home, but not overnight. Will need to be monitored closely outpt for safety.No further f/u with ortho, unless needed. Congestive heart failure 15132422 I50.89 Continues at baseline.C ontinue meds as above.Urmila tor resp. status, fluid status, wts and labs. Falls 380448336 R29.6 Continue fall precaution s.Monitor for safety. Dizziness 445667113 R42 No c/o todayConti nue meclizine 25 mg TIDMonitor sxs Nausea 808381021 R11.0 Seems better per pt.Continu e Zofran 8 mg q 12 hrs prn.Monito r Essential hypertension 91179646 I10 Good control on lasix 40 mg qd and metoprolol 50 mg qd.Monitor BP and labs. Coronary arteriosclerosis 31810435 I25.10 No current sxs.Contin ue meds as above and NTG 0.4 mg SL q 5 minutes x3 prn, atorvastat in 80 mg qd, ezetimibe 10 mg qd and ASA 81 mg qdMonitor sxs and vital.F/U with cardio prn. Diabetes mellitus 449023 09 E11.9 In excellent control since here.Tracy nue semaglutid e 3 mg sq weekly.Poli l d/c SSI and monitor sugars prn. Chronic re spiratory failure 47844967 J96.11 Continues at baseline.C ontinue supplement al O2 at 1-2 liters by DC to maintain sats 90-94%Duon ebs qid prn, Advair 500/50 mcg BID, spiriva 18 mcg qd, albuterol nebs q 6 hrs prn, and albuterol HFA 90 mcg 2 puffs q 4 hrs prn.Monito r resp status. Paroxysmal atrial fibrillation 175572566 I48.0 Rate in good control on meds as above.Cont inue eliquis 5 mg BID for AC.Monitor HR and bleeding risk. Anemia 887991635 D50.8 With minimal drop post-op.Co ntinue FeSO4 325 mg qd with vitamin C 500 mg BID, thiamine 100 mg qd and vitamin B12 1000 mcg q monthMonit or labs. Fibromyalgia 005395698 M 79.7 Continue duloxetine 30 mg qdMonitor sxs. Gastroesop hageal reflux disease without esophagitis 679378986 K21.9 No current sxs.Contin ue omeprazole 20 mg qd and zofran 8 mg q 12 hrs prnMonitor for sxs Hypothyroidism 23749993 E03.8 Last TSH 4.82 in 11/2022 with nl FT4.Contin ue levothyrox ine 100 mcg qdMonitor labs prn Mixed hyperlipidemia 267 960954 E78.2 Continue atorvastat in 80 mg qd and ezetimibe 10 mg qdMonitor labs as outpt. Obstructiv e sleep apnea syndrome 30686096 G47.33 Intolerant of cpap/bipap Continue supplement al O2 as above.Urmila tor sats. Vitamin D deficiency 347 83290 E55.9 Continue vitamin D3 1000 IU qdMonitor labs as outpt. Aneurysm o f middle cerebral artery 215164842 I67.1 Hx of 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Saw neurosurg several times, imaging showed stable size.Decis ion for conservati ve tx due to other medical problems.W ould embolize only if sxs of severe [place]. Irritable bowel syndrome with diarrhea 643550833 K58.0 Continue dicyclomin e 10 mg qid prnMonitor bowel habits. [id number] YUNG CALVILLO [address] [address] 04/17/2023 07:50:06 04/23/2023 10:23:47 Closed fracture of hip 032003253 S72.001A s/p fall 02/10 with right hip repair.tra madol 50 mg q6hr prnpatient stays in bed, refuses OOB per nursing staff.04/09: patient got OOB yesterday per her request. Congestive heart failure 61944814 I50.89 lasix 40 mg dailymonit or weights and s/s of heart failure1-2 + edema noted to lower anklesenco uraged legs elevations and oksana bandages to bilateral lower extremitie s. Falls 117207850 R29.6 fall precaution sfrequent safety checks Essential hypertension 47048351 I10 stablelasi x 40 mg dailymonit or b/p and labs as outpt. Diabetes mellitus 087726 09 E11.9 stable readings under 150carb control dietsemagl utide 3 mg sq weeklymoni tor for s/s of hypo/hyper glycemiamo nitor A1c [id number] RALPHMAXIM RIDER [address] [address] 04/24/2023 10:07:25 04/26/2023 13:02:59 Closed fracture of hip 347493796 S72.001A s/p fall 02/10 with right hip repair.tra madol 50 mg q6hr prnpatient stays in bed, refuses OOB per nursing staff.04/09: patient got OOB yesterday per her request. Congestive heart failure 56831927 I50.89 lasix 40 mg dailyweigh t stablemoni tor weights and s/s of heart failuretra ce edemaencou raged legs elevations and oksana bandages to bilateral lower extremitie s. Falls 859531894 R29.6 fall precaution sfrequent safety checks Essential hypertension 10943471 I10 stablelasi x 40 mg dailymonit or b/p and labs as outpt. Diabetes mellitus 609399 09 E11.9 stable readings under 150carb control dietsemagl utide 3 mg sq weeklymoni tor for s/s of hypo/hyper glycemiamo nitor A1c [id number] RALPH RIDER [address] [address] 05/01/2023 09:21:18 05/03/2023 14:11:33 Closed fracture of hip 109529630 S72.001A s/p fall 02/10 with right hip repair.tra madol 50 mg q6hr prnpatient stays in bed, refuses OOB per nursing staff.04/09: patient got OOB yesterday per her request. Congestive heart failure 09521354 I50.89 lasix 40 mg dailyweigh t stablemoni tor weights and s/s of heart failuretra ce edemaencou raged legs elevations and oksana bandages to bilateral lower extremitie s. Falls 674375275 R29.6 fall precaution sfrequent safety checks Essential hypertension 42784801 I10 stablelasi x 40 mg dailymonit or b/p and labs as outpt. Diabetes mellitus 517545 09 E11.9 stable readings under 150carb control dietsemagl utide 3 mg sq weeklymoni tor for s/s of hypo/hyper glycemiamo nitor A1c [id number] RALPH RIDER[address] [address] 05/08/2023 11:17:04 05/13/2023 16:10:41 Closed fracture of hip 666030633 S72.001A s/p fall 02/10 with right hip repair.tra madol 50 mg q6hr Congestive heart failure 90255476 I50.89 lasix 40 mg dailyweigh t stablemoni tor weights and s/s of heart failuretra ce edemaencou raged legs elevations and oksana bandages to bilateral lower extremitie s. Falls 196950531 R29.6 fall precaution sfrequent safety checks Essential hypertension 85263549 I10 stablelasi x 40 mg dailymonit or b/p and labs as outpt. Diabetes mellitus 060530 09 E11.9 stable readings under 150carb control dietsemagl utide 3 mg sq weeklymoni tor for s/s of hypo/hyper glycemiamo nitor A1c [id number] RALPH RIDER [address] [address] 05/15/2023 08:19:24 05/20/2023 15:40:14 Closed fracture of hip 863176882 S72.001A s/p fall 02/10 with right hip repair.tra madol 50 mg q6hr Congestive heart failure 38214200 I50.89 lasix 40 mg dailyweigh t stablemoni tor weights and s/s of heart failuretra ce edemaencou raged legs elevations and oksana bandages to bilateral lower extremitie s. Falls 979017240 R29.6 fall precaution sfrequent safety checks Essential hypertension 61234586 I10 stablelasi x 40 mg dailymonit or b/p and labs as outpt. Diabetes mellitus 782767 09 E11.9 stable readings under 150carb control dietsemagl utide 3 mg sq weeklymoni tor for s/s of hypo/hyper glycemiamo nitor A1c [id number] YUNG CALVILLO [address] [place] [address] 05/17/2023 15:20:25 05/21/2023 12:20:46 Closed fracture of hip 347773120 S72.001A s/p fall 02/10 with right hip repair.tra madol 50 mg q6hr Congestive heart failure 25905560 I50.89 lasix 40 mg dailyweigh t stable tor weights and s/s of heart failuretra ce edemaencou raged legs elevations and oksana bandages to bilateral lower extremitie s. Falls 954956773 R29.6 fall precaution sfrequent safety checks Essential hypertension 75861380 I10 lasix 40 mg daily Diabetes mellitus 669797 09 E11.9 semaglutid e 3 mg sq weekly for s/s of hypo/hyper glycemiamo nitor A1c Anemia 564773811 D50.8 Continue FeSO4 325 mg qd with vitamin C 500 mg BID, thiamine 100 mg qd and vitamin B12 1000 mcg q Aneurysm o f middle cerebral artery 083156566 I67.1 Ccarrying dx Chronic re spiratory failure 12335161 J96.11 supplement al O2 at 2 liters via ncfluticas one propion-sa lmeterol 500-50 mcg 1 inhalation bidspiriva 18 mcg 1 inhalation qdalbutero l neb 2.5 mg/3 ml q 4 hrs prnduo neb qidalbuter ol hfa 90 mcg 2 puffs q 4 hrs prn Coronary arteriosclerosis 59756562 I25.10 nitro 0.4 mg SL q 5 minutes [id number] atin 80 mg qdezetimib e 10 mg qdeliquis 5 mg bidASA 81 mg qdmonitor VS, labs Dizziness 411618788 R42 meclizine 12.5 mg bid prnmonitor as outpt Gastroesop hageal reflux disease without esophagitis 209343353 K21.9 dexilant 30 mg qddicyclom ine 10 mg qid prncarafat e 1 gm q hszofran 8 mg q12 hr prn Fibromyalgia 644606568 M 79.7 Continue duloxetine 30 mg qd Gout 16352445 M10.9 carrying dx Hypothyroidism 07615877 E03.8 Continue levothyrox ine 100 mcg qd Irritable bowel syndrome with diarrhea 314130186 K58.0 Continue dicyclomin e 10 mg qid prn Mixed hyperlipidemia 267 583360 E78.2 Continue atorvastat in 80 mg qd and ezetimibe 10 mg qd Nausea 270998434 R11.0 Continue Zofran 8 mg q 12 hrs prn. Obstructiv e sleep apnea syndrome 96082351 G47.33 Intolerant of cpap/bipap Continue supplement al O2 as above. Paroxysmal atrial fibrillation 438910605 I48.0 eliquis 5 mg bidtoprol 50 mg dailymonit or as outpt Vitamin D deficiency 347 23903 E55.9 Continue vitamin D3 1000 IU qdMonitor labs as outpt. 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 needs to have a appt with outpatient [facility] neurosurge ry Health Concerns Section Related Observation LastModified by Organization Detai ls LastModified Time None Recorded Concern Status LastModified by Organization Details LastModified Time None Recorded Advance Directives Directive Y: Payers Insurance Date Sequence Insurance Name Policy Number Policy Palomino Covered Member ID Palomino Member ID Guarantor Name 05/20/2023 1 [employer] - DUAL ELIGIBLE - [employer] - SENIOR PLAN (MEDICARE REPLACEMENT/A DVANTAGE - HMO) Carly Darinlete [id number] Carly [employer] 04/24/2023 2 MEDICARE B-[place]: [facility] [employer] Carly Hotte [id number] Carlyjoaquin Tenate Notes Date Note Type Note Provider Name and Address Organization Details Recorded Time 04/24/2023 text/html ROS as noted in the HPI 82 yr old female with PMH includes [...] no acute nursing concerns. YUNG CALVILLO [address] [facility], [address], [place], [address], [employer] 04/24/2023 13:13:25 05/01/2023 text/html ROS as noted in the [facility] 82 yr old female with PMH includes [...] no acute nursing concerns. YUNG CALVILLO [address] [facility], [address], [place], [address], [employer] 05/01/2023 15:45:39 05/08/2023 text/html ROS as noted in the [facility] 82 yr old female with PMH includes [...] no acute nursing concerns. YUNG CALVILLO [address] [facility], [address], [place], [address], [employer] [facility] 05/09/2023 09:20:31 05/15/2023 text/html ROS as noted in the [facility] 82 yr old female with PMH includes [...] for acute rounding visit. YUNG CALVILLO [address] [facility], [address], [place], [address], [employer] 05/16/2023 00:18:01 05/17/2023 text/html ROS as noted in the [facility] 82 yr old female with PMH includes [...] PT/OT and VNA services. YUNG CALVILLO [address] [facility], [address], [place], [address], [employer] [facility] 05/17/2023 15:28:55 OBGyn Episode No OBEpisode recorded.
[2024-09-11 11:46] LABS: Appearance Urine Clear; Glucose Urine UA Negative (Negative); PH 5.5 (5.0-9.0); Specific Gravity - Urine 1.015 (1.005-1.025)
== END 2024-09-11 11:12 | disposition home or self-care (01) ==
LOC: HO.LNP 11:11
PROVIDERS: Visit Provider Internal Medicine
DX: R30.0 Dysuria (principal)
CPT/HCPCS: 81003

== ENCOUNTER 2024-10-29 15:49 | Outpatient (AMB) | payer OTHER, SELFPAY ==
--- NOTE | 2024-10-29 15:49 | A.OFFPC_ITS ---
Intake Visit Reasons: Earache Allergies morphine (MORPHINE) Allergy (Unknown, Verified 10/29/24 15:50) RASH pregabalin (From [facility]) Allergy (Unknown, Verified 10/29/24 15:50) NAUSEA, felt high on drugs Tobacco use date assessed: 10/29/24 Fall risk assessment: No Falls in past year Last assessed Fall Risk: 10/29/24 Dental Screening Dental Screen Date: 10/29/24 Did you have a dental visit in the last 12 months?: No Did you have a dental problem in the last 6 months where you did not have access to dental care?: No Was dental information given to patient?: No [facility] Medical History (Updated 10/29/24 @ 17:20 by Chantal Lay MD) COPD (chronic obstructive pulmonary disease) Strong odor of stools Dysuria Pulmonary nodules Diarrhea Weakness Bradycardia Ingrowing nail Impacted cerumen of right ear Urinary incontinence Impacted cerumen of right ear Pulmonary nodule Chronic anticoagulation First degree atrioventricular block Atrial fibrillation Chronic pain syndrome 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 Low back pain Respiratory failure with hypoxia and hypercapnia Lower extremity weakness Nasal congestion Otitis externa Coronary artery disease Restrictive lung disease Diarrhea History of spinal stenosis Fibromyalgia Obesity (BMI 30-39.9) Carpal tunnel syndrome Abdominal aortic aneurysm Hypothyroid Obstructive sleep apnea Congestive heart failure Pernicious anemia Paroxysmal atrial fibrillation DVT (deep venous thrombosis) Diverticulitis GERD (gastroesophageal reflux disease) HTN (hypertension) Clostridium difficile colitis CAD (coronary artery disease) Hypercholesterolemia Surgical History (Updated 11/26/23 @ 12:52 by DEVON Monteiro) History of hip surgery S/P BREANN-BSO (total abdominal hysterectomy and bilateral salpingo-oophorectomy) History of arthroplasty of left shoulder Hx of cholecystectomy H/O angioplasty Hx of appendectomy H/O cardiac catheterization Family History Father Hypertension CVD (cardiovascular disease) Mother Colon cancer Sister Leukemia Sister Colon cancer Son Lung cancer Colon polyps Social History Household Members: None Household Members Other:: self Housing: Apartment Do you presently have visiting nurse or other home services: Yes (Nurses to prep meds. FINANCE ANALYST everyday 3x a day) Alcohol intake: never Patient Tobacco Use Status: Former Tobacco user Tobacco use type: Cigarette Years Smoked: stopped 2009 e-Cigarette/Vaping Use: Never Used Second Hand Smoke Exposure: Yes Advance Directives Date on File: 10/10/21 service: No Current occupational status: retired Current occupational exposures/hazards: No Cognitive needs: No Hearing needs: No Vision needs: Yes Questionnaire Thrive Questionnaire Date Thrive assessed: 07/15/23 DONNY-7 AMB Questionnaire DONNY-7 Date DONNY - 7 assessed: 06/21/23 Source: Developed by Drs. Chang Perez, Allie Segovia, Emiliano Mitchell and colleagues, with an educational fernando from [employer]. Physical exam (Primary Care) Tobacco/Smoking Status: Tobacco use Status Tobacco use date assessed 10/29/24 10/29/24 15:52 Patient Tobacco Use Status Former Tobacco user 10/29/24 15:52 Tobacco use type Cigarette 10/29/24 15:52 e-Cigarette/Vaping Use Never Used 10/29/24 15:52 Thrive Assessment: Date of Thrive Assessment Date Thrive assessed 07/15/23 10/29/24 15:52 Telehealth Telehealth Telehealth Platform: Telephone Location of provider rendering services: practice address Location of patient: address on file Patient Identification confirmed using: Name, : Yes Telehealth method: voice only Patient verbally consented to treatment: Yes Patient verbally consented to billing insurance company: Yes Patient informed of any privacy concerns related to visit: Yes Minutes spent on Phone/Video with Pt.: 25 Coding Level of Care Code Tele Est Pt Level 3 (66981) Diagnoses Closed fracture of right hip with routine healing, subsequent encounter S72.001D Encounter type: subsequent encounter Fracture healing: with routine healing Right ear pain H92.01 Assessment & Plan Assessment & Plan (1) Closed fracture of right hip: Comment: 2022 fall subtrochanteric fracture, status post intramedullary nailing January 2023 Code(s): S72.001A - Fracture of unspecified part of neck of right femur, initial encounter for closed fracture Category: Medical Qualifiers: Encounter type: subsequent encounter Fracture healing: with routine healing Qualified Code(s): S72.001D - Fracture of unspecified part of neck of right femur, subsequent encounter for closed fracture with routine healing (2) Right ear pain: Code(s): H92.01 - Otalgia, right ear Category: Medical Plan History of Present Illness The patient is an 84-year-old female presenting with ear pain and a request for a new hospital bed prescription. She reports right ear pain for about a week, with the pain extending to the side of her face. There is no discharge from the ear, and she does not suspect a perforated eardrum. An antibiotic ear drop was considered as a treatment option. The patient also requires a new hospital bed due to the current one being broken, which affects her comfort and health management. A prescription for a hospital bed was arranged to be sent by the medical payment poster. For preventative care, she was advised to receive her flu shot in November, along with the COVID-19 and RSV vaccines. Review of Systems - Ear, Nose, Throat: Reports right ear pain for about a week, extending to the side of the face. Denies ear discharge. Plan Patient was informed and verbally consented to the use of an ambient scribe for clinic note documentation during this visit. 1. Ear Pain The patient reports right ear pain for about a week, with no discharge and no suspicion of a perforated eardrum. An antibiotic ear drop was discussed as a treatment option, and it was agreed to send the prescription to the patient's preferred pharmacy. 2. Hospital Bed Requirement The patient requires a new hospital bed as the current one is broken, affecting her comfort and health management. A prescription for a hospital bed was arra nged to be sent by the medical payment poster. 3. Preventative Care The patient was advised to receive her flu shot in November, along with the COVID-19 and RSV vaccines, as part of her preventative care regimen. Discussion Notes During the consultation, we discussed the patient's right ear pain and the potential use of antibiotic ear drops as a treatment option. I confirmed the prescription would be sent to her preferred pharmacy. We also addressed her need for a new hospital bed, and I arranged for a prescription to be sent by the medical payment poster. Additionally, I reminded her of the importance of receiving her flu shot in November, along with the COVID-19 and RSV vaccines, to maintain her preventative care regimen. Patient Instructions - Use the prescribed antibiotic ear drops as directed for right ear pain. - Arrange for the delivery of the new hospital bed as per the prescription sent. - Ensure to receive the flu shot in November, and consider getting the COVID-19 and RSV vaccines. Medications: New odvzcqdl-evvxsawti-AU 3.5-10,000-1 mg/mL-unit/mL-% 4 drps otic (ear) right Q8H 10 mL 0RF 5 days H92.01 - Otalgia, right ear Refilled [hospital bed] As directed 1 ea 0RF I50.32 - Chronic diastolic (congestive) heart failure
--- OUTSIDE RECORDS SUMMARY | 2024-10-29 18:49 | XMS_ITS | Encounter Summary ---
Author Organization [facility] Address [address] [place] [address] Phone Care Team Providers Care Supervisor Modern Languages Name Role Phone Unavailable Primary Care Provider Unavailabl e Encounter Details Date Type Department Care Team (Late st Contact Info) Description 04/09/2017 Ancillary Orders [facility] [address] [place] [address] [address] Floor, [address] [place] [address] Sanya Benítez, CONNOR [address] [facility] [address] [place] [phone] Social History Tobacco Use Types Packs/Day Years Used Date Smoking Tobacco: Never Assessed Comments Unknown Sex and Gender Information Value Date Recorded Sex Assigned at Not on file Legal Sex Female 10:38 PM EDT Gender Identity Not on file Sexual Orientation Not on file documented as of this encounter Plan of Treatment Not on file documented as of this encounter Visit Diagnoses Not on filedocumented in this encounter Additional Source Comments The information contained in this document represents components of the legal health record. It is not the complete legal health record.[facility]
--- OUTSIDE RECORDS SUMMARY | 2024-10-29 18:49 | XMS_ITS | Encounter Summary ---
Author Organization [facility] Address [address] [place] [phone] Phone Care Team Providers Care Delivery Supervisor Name Role Phone Unavailable Primary Care Provider Unavailabl e Encounter Details Date Type Department Care Team (Latest Contact Info) Description 04/09/2017 Ancillary Orders [facility] [address] [place] [address] [place] [address] Sanya Benítez, CONNOR [address] [facility] [address] [place] [phone] Sick sinus syndrome; Coronary artery disease involving white earth coronary artery of white earth heart, angina presence unspecified Social History Tobacco Use Types Packs/Day Years Used Date Smoking Tobacco: Never Assessed Comments Unknown Sex and Gender Information Value Date Recorded Sex Assigned at Not on file Legal Sex Female 10:38 PM EDT Gender Identity Not on file Sexual Orientation Not on file documented as of this encounter Plan of Treatment Not on file documented as of this encounter Results * Holter Monitor 48 Hours (04/09/2017 12:18 PM EST) Anatomical Region Laterality Modality Heart Other Narrative 04/10/2017 9:34 AM EST 48 hour Holter monitor report on Carly Unger Date of 1940 Indication for study palpitations and tachycardia Referring physician Sanya Rivera Findings: Patient was monitored for 48 hours and was in sinus rhythm throughout the recording with a heart rate varying from 93 232 bpm with an average heart rate of 107. There were frequent isolated PVCs a total of 860 were seen there were 4 couplets and no higher degrees of ventricular ectopy there were rare isolated PACs and no runs of supraventricular tachycardia. There were no significant pauses or bradycardia arrhythmia. According to the patient log, no symptoms were identified. Conclusion: Essentially normal 48 hour Holter monitor showing sinus rhythm throughout with predominantly tachycardia secondary to her COPD and pulmonary medications. There were occasional PVCs but no higher degrees of ventricular ectopy. No symptoms were identified. There is no prior study available for comparison. Sanay Benítez NP [facility] ES Final Result documented in this encounter Visit Diagnoses Diagnosis Sick sinus syndrome Sinoatrial node dysfunction Coronary artery disease involving white earth coronary artery of white earth heart, angina presence unspecified Sick sinus syndrome Sinoatrial node dysfunction Coronary artery disease involving white earth coronary artery of white earth heart, angina presence unspecified documented in this encounter Additional Source Comments The information contained in this document represents components of the legal health record. It is not the complete legal health record.[facility]
--- OUTSIDE RECORDS SUMMARY | 2024-10-29 18:49 | XMS_ITS | Clinical Summary ---
Author Organization [facility] Address [address] [place] [phone] Phone Care Team Providers Care Book Coverer Name Role Phone Unavailable Primary Care Provider [...] Devices Not on file Insurance [employer] [place] [id number] [place] Additional Source Comments The information contained in this document represents components of the legal health record. It is not the complete legal health record.[facility]
== END 2024-10-29 17:29 | disposition home or self-care (01) ==
LOC: HO.HMCH 15:49
PROVIDERS: PCP Internal Medicine; Visit Provider Internal Medicine
DX: S72.001D Fracture of unspecified part of neck of right femur, subsequent encounter for closed fracture with routine healing (principal); H92.01 Otalgia, right ear

== ENCOUNTER 2024-11-26 15:24 | Emergency (ER) | payer OTHER, SELFPAY ==
--- NOTE | ~2024-11-26 | CT_ITS ---
CLINICAL HISTORY: dyspnea CT chest with contrast Comparison: CR/SR - XR CHEST 2 VIEWS - 11/26/24 16:[address]/CA - CT ABDOMEN PELVIS WITH IV CONTRAST - 09/06/23 15:33 EDT Findings: No focal areas of consolidation identified within the lungs. No pleural effusion or pneumothorax. The heart is slightly rotated deviated to the left. No significant cardiac chamber enlargement is seen. Dense vascular calcification of the coronary arteries and thoracic aorta. Tortuosity of the descending thoracic aorta crosses the midline to extend into along the right aspect of the vertebral bodies. Mural thrombus is seen along the posterior 1/3 of the descending thoracic aorta without dissection or aneurysmal dilatation. This atherosclerotic calcification extends into the abdominal aorta. Mildly prominent lymph nodes within the precarinal region measuring 12 mm in short axis. No enlarged axillary or hilar lymph nodes. Small hiatal hernia. Surgical clips are seen adjacent to the hiatal hernia. Metal artifact from the patient's left shoulder arthroplasty. No acute fractures. IMPRESSION: 1. No acute infiltrates or edema. 2. Multifocal vasculopathy as discussed above. This document has been electronically signed by: Jeffry Lyn MD on 11/26/2024 22:19:47
--- NOTE | ~2024-11-26 | CT_ITS ---
CLINICAL HISTORY: LLQ pain CT abdomen and pelvis with contrast Comparison: CT/MN - CT ABDOMEN PELVIS WITH IV CONTRAST - 09/06/23 15:33 EDT Findings: Please refer to the patient's separately dictated CT of the chest from same time for information regarding findings within the lower chest. CT abdomen: Extensive vascular calcification of the abdominal aorta, mesenteric arteries, renal arteries, and iliac arteries. Unchanged 3.6 cm infrarenal abdominal aortic aneurysms. There is mild aneurysmal dilatation of the right common iliac artery 0.7 cm. Left common iliac artery is ectatic at 0.5 cm. Gallbladder is not visualized. Dilation of the extrahepatic biliary tree as seen on prior study without discrete intraluminal filling defects within the common bile duct. Focal hepatic lesions. Spleen, pancreas, and adrenal glands are unremarkable. Bilateral renal cysts are not appreciably changed compared to prior study. Small hiatal hernia. Fluid-filled loops of nondilated small bowel. No free fluid or free air. CT pelvis: Uterus is surgically absent. Urinary bladder is minimally distended. Scattered diverticuli within the colon, especially within the descending colon and sigmoid colon. No findings of diverticulitis. Appendix is not visualized. No free fluid or free air. Antegrade intramedullary higinio with single spanning gamma nail seen within the right proximal femur. IMPRESSION: No acute imaging explanation for the patient's symptoms. This document has been electronically signed by: Jeffry Lyn MD on 11/27/2024 01:37:34
--- NOTE | ~2024-11-26 | CT_ITS ---
CLINICAL HISTORY: confusion CT of the head without contrast. Comparison 02/08/2023. Findings: There is mild atrophy and white matter changes. No acute hemorrhage or definite acute infarct is seen. There is no hydrocephalus or mass effect. Moderate fluid left mastoid air cells. There is minimal sinus disease. Impression: No acute hemorrhage or definite acute infarct. This document has been electronically signed by: Hugo Connor MD on 11/26/2024 20:05:13
--- NOTE | ~2024-11-26 | XR_ITS ---
EXAMINATION: XR CHEST CLINICAL INFORMATION: SOB COMPARISON: X-ray 09/06/2023 TECHNIQUE: 2 views of the chest were obtained. FINDINGS: Lordotic view. Rotated positioning. Overlying cardiac leads. The heart size is enlarged, accentuated by positioning, technique. Mediastinal silhouette is within normal limits. Aortic arch calcification. There is hazy opacity in bilateral mid and lower lungs. This includes retrocardiac opacity. This could be technical, however airspace disease cannot be excluded. No overt pulmonary edema seen. No pneumothorax is identified.. Status post left shoulder arthroplasty. XR/XR chest 2V IMPRESSION: Study limited by lordotic view, rotated positioning. Diffuse hazy opacity in bilateral mid and lower lungs.. This could be related to the technique/positioning. Pulmonary process, airspace disease cannot be excluded. Recommend repeat radiographs. Electronically signed by: Timur Jose MD 11/26/2024 04:09 PM EDT
[2024-11-26 15:31] VITALS: BP 180/80; BP 186/58; PULSE 110; RESP 16; TEMP 37.4; O2SAT 93; O2SAT 95; BMI 40.6
--- NOTE | 2024-11-26 15:35 | ECG_ITS ---
Test Reason : SOB Blood Pressure : */* mmHG Vent. Rate : 108 BPM Atrial Rate : 159 BPM P-R Int : 240 ms QRS Dur : 86 ms QT Int : 356 ms P-R-T Axes : * 73 70 degrees QTcB Int : 477 ms Sinus tachycardia with 1st degree A-V block with Premature atrial complexes Septal infarct (cited on or before 06-Sep-2023) Abnormal ECG When compared with ECG of 06-Sep-2023 13:01, Premature atrial complexes are now Present Vent. rate has increased by 38 bpm Nonspecific T wave abnormality has replaced inverted T waves in Lateral leads Referred By: Margoth Perla Electronically Signed By: TATO PERDOMO MD
[2024-11-26 16:21] VITALS: BP 186/58; PULSE 116; RESP 23; TEMP 37.4; O2SAT 92
[2024-11-26 16:45] LABS: MANUAL DIFF FLAG NO
[2024-11-26 16:45] LABS: VBG HCO3 36 mmol/L (22-26); VBG O2 % Saturation 72.0 %
[2024-11-26 16:46] LABS: Hematocrit 39.5 % (37.0-47.0); Hemoglobin 12.4 g/dl (12.0-16.0); Imm Gran Abs Auto 0.03 X10*3/uL (0.00-0.03); Imm Gran Pct Auto 0.3 % (0.0-0.4); Lymphocytes Absolute Auto 2.1 X10*3/uL (1.2-4.9); Mean Corpuscular HGB Conc 31.4 g/dl (31.0-35.0); Mean Corpuscular Hemoglobin 27.8 pg (27.0-33.0); Mean Corpuscular Volume 88.6 fL (80.0-98.0); NRBC Abs Auto 0.000 X10*3/uL (0.0-0.012); NRBC Pct Auto 0.0 /100WBC (0.0-0.2); Platelet Count 245 X10*3/uL (160-400); Red Blood Count 4.46 X10*6/uL (4.20-5.50); White Blood Count 9.3 X10*3/uL (4.8-10.8)
[2024-11-26 16:47] LABS: Venous Blood Gas Refer to POC result
--- NOTE | 2024-11-26 16:59 | PC.NURSE ---
pt comes in from home with reports of not feeling well for several days. she states her symptoms are feeling off confusion and not myself She also reports some SOB. work of breathing even. not tachypneic. pt has chronic pain and fibromylagia. She came in sitting in a large amount of liquid stool. 22g IV in right upper arm labs and EKG done. Afib on tele. awaiting for ED provider
[2024-11-26 17:09] LABS: Alanine Aminotransferase 7 U/L (0-31); Albumin Level 3.7 g/dL (3.5-5.0); Anion Gap 12 (12-20); Aspartate Amino Transferase 22 U/L (5-31); Blood Urea Nitrogen 13 mg/dL (9-16); Calcium 9.5 mg/dL (8.4-10.2); Carbon Dioxide 33 mmol/L (22-29); Chloride 103 mmol/L (96-108); Creatinine Clr Calc Pharmacy 65.8; Estimated Glomerular Filt Rate > 60; Magnesium 2.0 mg/dL (1.6-2.6); Potassium 3.0 mmol/L (3.3-5.1); Sodium 145 mmol/L (135-145); Total Protein 7.1 g/dL (6.5-8.0)
[2024-11-26 17:17] LABS: Troponin-I High Sensitivity 13.1 ng/L (<3.5-17.0)
[2024-11-26 17:20] LABS: Alkaline Phosphatase 183 U/L (39-117)
[2024-11-26 17:39] LABS: NT Pro B Type Natriuretic Pept 978.3 pg/mL (<300)
[2024-11-26 17:42] LABS: IDNOW Serial# 152EDE1D; Influenza B2 Negative (Negative)
[2024-11-26 17:43] LABS: COVID-19 Test Negative (Negative); IDNOW Serial# 16C4AD1C
--- NOTE | 2024-11-26 18:44 | ED.GENADULT ---
HPI - General Adult General Chief complaint: Altered Mental Status Stated complaint: SOB,HX of copd, non ambulatory Time Seen by Provider: 11/26/24 17:27 Source: patient, RN notes reviewed and old records reviewed Mode of arrival: EMS Limitations: no limitations History of Present Illness ED Provider: Jess HPI narrative: 84-year-old female past medical history significant for COPD on chronic 2 L, congestive heart failure, IBS, type 2 diabetes, hypertension renal insufficiency, fibromyalgia and chronic pain, obesity, AFib on Eliquis presents for evaluation of body aches Patient lives alone and she has for last 15 years pain She reports for the last few days she has had increased forgetfulness, she has had worsening general body aches and pain pain She does complain of a left-sided headache. She has not noticed any fevers or chills pain She does complain of burning with urination and urinary frequency She does not believe her legs have been swollen Denies any significant chest pain Related Data Home Medications ?Medication ?Instructions ?Recorded ?Confirmed cholecalciferol (vitamin D3) 25 25 mcg PO DAILY 12/01/19 01/22/25 mcg (1,000 unit) capsule (Vitamin D3) dicyclomine 10 mg capsule 10 mg PO Q6H PRN Abdominal Pain 12/01/19 01/22/25 aspirin 81 mg tablet,delayed 81 mg PO DAILY 07/08/23 01/22/25 release acetaminophen 650 mg 650 mg PO Q8H PRN Pain 07/14/23 01/22/25 tablet,extended release ipratropium 0.5 mg-albuterol 3 mg 3 ml inhalation QID PRN Shortness 07/14/23 01/22/25 (2.5 mg base)/3 mL nebulization Of Breath Or Wheezing soln fluticasone 500 mcg-salmeterol 50 1 inh inhalation BID 11/27/24 01/22/25 mcg/dose blistr powdr for inhalation (Wixela Inhub) duloxetine 30 mg capsule,delayed 30 mg PO DAILY 01/22/25 01/22/25 release Previous Rx's ?Medication ?Instructions ?Recorded stair lift and ramp #1 ea 08/31/20 blood-glucose meter (OneTouch #1 ea 09/14/20 Ultra2 Meter kit) blood-glucose meter (OneTouch #1 ea 09/16/20 UltraMini kit) Wheelchair Ramp #1 ea 10/06/20 Transfer Bench #1 ea 11/01/20 blood pressure monitor (Blood #1 ea 11/03/20 Pressure Kit) Nebulizer supplies #3 ea 03/22/21 Semi Electric Hospital Bed #1 ea 03/22/21 diagnosis I50.32 Air mattress #1 ea 11/27/21 nitroglycerin 0.4 mg sublingual 0.4 mg sublingual Q5M PRN for 02/22/22 tablet angina 90 days #25 tabs FOUR WHEEL SCOOTER #1 ea 06/08/22 pads for bedsores 7 7/8 X 11 3/4 #50 ea 07/10/22 pressure release mattress #1 ea 11/13/22 blood sugar diagnostic (HiFiKiddoTouch #100 strips 01/30/23 Ultra Test strips) lancets #100 ea 02/09/23 compress.stocking,knee,reg,lrg #12 ea 07/01/23 lancets 33 gauge (OneTouch Delica #100 ea 07/01/23 Plus Lancet) loperamide 2 mg capsule (Imodium 2 mg PO Q6H PRN loose stool #14 08/27/23 A-D) caps carbamide peroxide 6.5 % ear drops 10 drp otic (ears) DAILY 4 days 08/30/23 (Debrox) #15 mL polymyxin B sulfate 10,000 1 drp ophthalmic (eye) QID 7 days 09/03/23 unit-trimethoprim 1 mg/mL eye drops #10 mL thiamine HCl (vitamin B1) 100 mg 100 mg PO DAILY #90 tabs 09/24/23 tablet POWER WHEELCHAIR #1 ea 10/08/23 ketoconazole 2 % shampoo 1 appl topical 2XW #120 mL 11/19/23 nystatin 100,000 unit/gram topical 1 appl topical TID #30 grams 11/19/23 cream gabapentin 100 mg capsule 100 mg PO BEDTIME #90 caps 12/10/23 meclizine 12.5 mg tablet 12.5 mg PO BID PRN for motion 01/06/24 sickness #60 tabs UNDERPADS Disposable BED #3 ea 01/27/24 pads overnight- large #2 ea 01/27/24 white petrolatum 71.3 % topical 1 appl topical BID-TID PRN dry 01/27/24 ointment (Desitin Multi-Purpose) skin #99 grams dexlansoprazole 30 mg 30 mg PO DAILY #90 caps 01/31/24 capsule,biphase delayed release ezetimibe 10 mg tablet 10 mg PO DAILY #90 tabs 01/31/24 levothyroxine 100 mcg tablet 100 mcg PO DAILY@0600 #90 tabs 01/31/24 cyanocobalamin (vitamin B-12) 1,000 mcg IM Q4W 90 days #4 mL 02/26/24 1,000 mcg/mL injection solution Purewick external catheter #1 ea 03/02/24 cetirizine 10 mg tablet 10 mg PO DAILY PRN for allergies 04/26/24 #90 tabs nitrofurantoin 100 mg PO Q12H 7 days #14 caps 04/30/24 monohydrate/macrocrystals 100 mg capsule (Macrobid) lactobacillus combination no.9 4 4,000 mmu cells PO DAILY #30 caps 05/01/24 billion cell capsule (Adult 50 Plus Probiotic) albuterol sulfate 90 mcg/actuation 2 puff PO Q4H PRN for respiratory 05/08/24 aerosol inhaler distress #8.5 ea syringe with needle, safety 3 mL #100 ea 05/27/24 25 gauge x 5/8 (BD Integra Syringe) ascorbic acid (vitamin C) 500 mg 500 mg PO BID #180 tabs 06/20/24 tablet ondansetron HCl 8 mg tablet 8 mg PO Q12H PRN nausea and 06/20/24 vomiting #30 tabs albuterol sulfate 2.5 mg/3 mL 2.5 mg (3 mL) inhalation Q6H PRN 07/06/24 (0.083 %) solution for nebulization for wheezing #180 mL atorvastatin 80 mg tablet 80 mg PO BEDTIME #90 tabs 08/03/24 clotrimazole 1 % topical cream 1 appl topical BID PRN Rash #45 08/19/24 grams dulaglutide 3 mg/0.5 mL 3 mg (0.5 mL) subcut SA #2 mL 09/07/24 subcutaneous pen injector ([facility]) replacement mattress for her #1 ea 09/24/24 hospital bed Half bed rail for hospital bed #2 ea 09/29/24 diltiazem HCl 120 mg 120 mg PO DAILY #90 caps 10/19/24 capsule,extended release 24 hr (Cardizem CD) metoprolol succinate 100 mg 100 mg PO DAILY #30 tabs 11/05/24 tablet,extended release 24 hr hospital bed #1 ea 12/04/24 Reclining wheelchair #1 ea 12/25/24 apixaban 5 mg tablet (Eliquis) 5 mg PO BID 90 days #180 tabs 12/27/24 furosemide 40 mg tablet 20 - 40 mg (0.5 - 1 x 40 mg) PO 12/27/24 DAILY #90 tabs tramadol 50 mg tablet 50 mg PO Q6H PRN Pain #30 tabs 01/04/25 Allergies Allergy/AdvReac Type Severity Reaction Status Date / Time morphine (MORPHINE) Allergy Unknown RASH Verified 01/21/25 15:34 pregabalin (From LYRICA) Allergy Unknown NAUSEA, Verified 01/21/25 15:34 felt high on drugs Review of Systems Constitutional: Constitutional: Reports body ache(s), Denies chills, Denies fever(s) and Reports headache(s) Eyes: Eyes: Denies blurry vision and Denies exophthalmos ENT: Reports headache(s) Cardiovascular: Cardiovascular: Denies chest pain, Denies chest pain at rest, Reports leg edema, Denies dyspnea and Denies dyspnea on exertion Respiratory: Respiratory: Reports cough, Denies dyspnea and Denies dyspnea on exertion Gastrointestinal: Gastrointestinal: Denies abdominal pain, Denies nausea and Denies vomiting Genitourinary: Genitourinary: Reports difficulty voiding and Reports dysuria Musculoskeletal: Musculoskeletal: Reports back pain Integumentary/Breasts: Skin/Breast: Denies rash Neurologic: Reports headache(s) Psychiatric: Psychiatric: Denies anxiety [facility] Past Medical History Medical History (Updated 01/28/25 @ 14:21 by Petra Van MD) COPD (chronic obstructive pulmonary disease) Strong odor of stools Dysuria Pulmonary nodules Diarrhea Weakness Bradycardia Ingrowing nail Impacted cerumen of right ear Urinary incontinence Impacted cerumen of right ear Pulmonary nodule Chronic anticoagulation First degree atrioventricular block Atrial fibrillation Chronic pain syndrome 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 Low back pain Respiratory failure with hypoxia and hypercapnia Lower extremity weakness Nasal congestion Otitis externa Coronary artery disease Restrictive lung disease Diarrhea History of spinal stenosis Fibromyalgia Obesity (BMI 30-39.9) Carpal tunnel syndrome Abdominal aortic aneurysm Hypothyroid Obstructive sleep apnea Congestive heart failure Pernicious anemia Paroxysmal atrial fibrillation DVT (deep venous thrombosis) Diverticulitis GERD (gastroesophageal reflux disease) HTN (hypertension) Clostridium difficile colitis CAD (coronary artery disease) Hypercholesterolemia Surgical History History of hip surgery S/P BREANN-BSO (total abdominal hysterectomy and bilateral salpingo-oophorectomy) History of arthroplasty of left shoulder Hx of cholecystectomy H/O angioplasty Hx of appendectomy H/O cardiac catheterization Family History Family History Father Hypertension CVD (cardiovascular disease) Mother Colon cancer Sister Leukemia Sister Colon cancer Son Lung cancer Colon polyps Social History Social History Household Members: None Household Members Other:: self Housing: House Do you presently have visiting nurse or other home services: Yes Alcohol intake: never Patient Tobacco Use Status: Former Tobacco user Tobacco use type: Cigarette Years Smoked: stopped 2009 e-Cigarette/Vaping Use: Never Used Second Hand Smoke Exposure: Yes Advance Directives Date on File: 10/10/21 service: No Current occupational status: retired Current occupational exposures/hazards: No Cognitive needs: No Hearing needs: No Vision needs: Yes Physical Exam ED Vital Signs: Vital Signs - 24 hr 11/26/24 15:31 11/26/24 16:21 11/26/24 21:35 Temperature 99.4 F 99.4 F 97.8 F Pulse Rate 110 H 116 H 116 H Respiratory Rate 16 23 H 23 H Blood Pressure 186/58 H 186/58 H Pulse Oximetry 93 92 Oxygen Delivery Method Nasal Cannula Nasal Cannula Nasal Cannula Oxygen Flow Rate 2 2 11/26/24 22:12 11/27/24 01:09 11/27/24 11:36 Temperature 97.6 F 97.6 F Pulse Rate 85 108 H Respiratory Rate 20 20 20 Blood Pressure 168/96 H 168/94 H 133/54 L Pulse Oximetry 93 95 93 Oxygen Delivery Method Nasal Cannula Room Air Nasal Cannula Oxygen Flow Rate 2 3 BMI result Body Mass Index 40.6 Const General: healthy appearing, comfortable, no acute distress, alert and awake Nutritional Appearance: well nourished Orientation/consciousness: patient oriented x3 [facility] Head: Yes normocephalic and Yes atraumatic Eyes Eyelids: Yes eyelids normal Conjunctivae: conjunctivae normal Sclerae: sclerae normal Corneas: corneas normal Pupils: Equal, round and reactive pupils present EOM: EOMs intact bilaterally Neck Neck: Yes full ROM Resp Other: Breath sounds diminished throughout but otherwise clear to auscultation. Effort & Inspection: normal respiratory effort, able to speak in complete sentences, no audible wheezes and not labored Auscultation: clear to auscultation bilaterally Cardio Other: No significant lower extremity edema Rate: tachycardic Rhythm: abnormal rhythm irregularly irregular GI Inspection: No distended Palpation (GI): Soft to palpation, not firm, Tenderness to palpation present (GI) in the LLQ and in the LUQ, Guarding due to palpation present (GI) (Left lower quadrant) and not rigid Skin General skin exam: elasticity normal Neuro General: patient oriented x3 Cranial nerves: Yes CN's II-XII intact bilaterally, Yes Equal, round and reactive pupils present and Yes Bilaterally intact EOM present Cognition (Neuro): normal cognition Extrem Other: Moving all extremities well without any obvious deformities Course Reevaluation(s) Reevaluation #1: The patient has had a fairly extensive workup, she still complains of a headache with increased weakness. The CT scan of the head did not show any acute findings, she has no neuro deficits. CT scan of the chest did not show any pneumonia versus pleural effusion, she is stable on her home 2 L, with an oxygen saturation of 93 %. No evidence of acute CHF exacerbation. Again, she was tender on exam palpation of the abdomen. Her CT scan of the pelvis did not show any acute findings. The urinalysis did not show any evidence of UTI. The patient's vital signs have remained stable. She however does not feel safe with discharge back home, she has nobody home with her she does have age turned the day. She will be held overnight in the ER for a physical therapy and case management evaluation in the morning. Time: 01:50 Additional Reevaluation(s): Time: 08:12 Date: 11/27/24 Provider: VENECIA Ponce Patient in physician observation for case management needs. No acute events reported overnight.? No current issues or complaints. VS stable. Labs and imaging reviewed > PO K+ repletion ordered as well as repeat BMP. Patient is pending PT/CM eval. Will continue to monitor. -1500--patient will discharge home with resumption of VNA via BLS Medications Administered Discontinued Medications Generic Name Dose Route Start Last Admin Trade Name Remi PRN Reason Stop Dose Admin Acetaminophen 325 mg 11/27/24 10:20 11/27/24 10:26 Acetaminophen 325 Mg Tablet PO 325 mg Q4H PRN Administration Pain, Mild (Pain Scale 1-3) Ondansetron HCl 4 mg 11/27/24 04:08 11/27/24 04:23 Ondansetron Odt 4 Mg Tab.Rapdis TRANSLINGU 11/27/24 04:09 4 mg ONCE ONE Administration Potassium Chloride 40 meq 11/27/24 08:10 11/27/24 09:31 Potassium Chloride Packet 20 Meq Packet PO 11/27/24 08:11 40 meq ONCE ONE Administration Medical Decision Making Medical Decision Making MDM Narrative: 84-year-old female with a past medical history as above presents for evaluation of multiple complaints including headache, body aches. She reports her shortness of breath is consistent with a baseline. Denies any fevers or chills but has not remembered temp of 99.4? rectally in the ER. Denies any some get leg swelling she does not have any on exam. She denied abdominal pain during the history but on physical examination she has some significant tenderness with guarding in the left lower abdomen. She reports feeling confused but is alert and oriented x4. Her labs do not show any significant findings on her hematology, no white count, no significant anemia, no left shift. Chemistries showed a potassium of 3.0 which could be due to decreased p.o. intake and also the furosemide that the patient takes daily. We will replete orally. I will obtain a CT scan of the head given her headache with reported confusion and the fact that she is on Eliquis. Her chest x-ray shows mild pulmonary vascular congestion but could not rule out pneumonia and that we will get a CT scan chest as well. And given the guarding of the abdomen pelvis and we will get a CT scan of the abdomen pelvis as well. A urinalysis is still pending Differential Diagnosis Differential Diagnoses: The differential diagnosis associated with the presentation includes Viral syndrome Pneumonia CHF Diverticulitis IBS UTI Pyelonephritis Admission/Observation Consideration of admission/observation: Escalation of care including admission/observation considered Lab Data MDM Lab Attestation statement: I reviewed the patient's lab results. As above 11/26/24 16:38 11/27/24 09:07 Labs: Lab Results 11/26/24 11/26/24 11/26/24 Range/Units 16:38 16:42 18:57 WBC 9.3 (4.8-10.8) X10*3/uL RBC 4.46 (4.20-5.50) X10*6/uL Hgb 12.4 (12.0-16.0) g/dl Hct 39.5 (37.0-47.0) % MCV 88.6 (80.0-98.0) fL MCH 27.8 (27.0-33.0) pg MCHC 31.4 (31.0-35.0) g/dl RDW 14.1 (11.0-16.0) % Plt Count 245 (160-400) X10*3/uL MPV 9.2 L (9.4-12.3) fL Immature Gran % (Auto) 0.3 (0.0-0.4) % Neut % (Auto) 65.6 (45-73) % Lymph % (Auto) 22.8 (20-40) % [place] % (Auto) 10.4 (2-11) % Eos % (Auto) 0.6 (0-4) % Baso % (Auto) 0.3 (0-2) % Lymph # (Auto) 2.1 (1.2-4.9) X10*3/uL [place] # (Auto) 1.0 (0.1-1.2) X10*3/uL Eos # (Auto) 0.1 (0.0-0.4) X10*3/uL Baso # (Auto) 0.0 (0.0-0.2) X10*3/uL Abs Immat Gran (auto) 0.03 (0.00-0.03) X10*3/uL Absolute Neuts (auto) 6.1 (2.0-8.3) x10*3/uL Absolute Nucleated RBC 0.000 (0.0-0.012) X10*3/uL Nucleated RBC % (auto) 0.0 (0.0-0.2) /100WBC VBG pH 7.45 H (7.32-7.43) VBG pCO2 51 mmHg VBG pO2 45 mmHg VBG HCO3 36 H (22-26) mmol/L VBG O2 Saturation 72.0 % VBG Base Excess 11.1 mmol/L Sodium 145 (135-145) mmol/L Potassium 3.0 L D (3.3-5.1) mmol/L Chloride 103 (96-108) mmol/L Carbon Dioxide 33 H (22-29) mmol/L Anion Gap 12 (12-20) BUN 13 (9-16) mg/dL Creatinine 0.68 (0.5-1.4) mg/dL Estim Creat Clear Calc 65.8 Estimated GFR > 60 Random Glucose 102 (60-115) mg/dL Calcium 9.5 (8.4-10.2) mg/dL Magnesium 2.0 (1.6-2.6) mg/dL Total Bilirubin 0.6 (0.0-1.0) mg/dL AST 22 (5-31) U/L ALT 7 (0-31) U/L Alkaline Phosphatase 183 H (39-117) U/L Troponin I High Sens 13.1 (<3.5-17.0) ng/L NT-Pro-B Natriuret Pep 978.3 H (<300) pg/mL Total Protein 7.1 (6.5-8.0) g/dL Albumin 3.7 (3.5-5.0) g/dL Urine Color Yellow Urine Appearance Turbid Urine pH 6.5 (5.0-9.0) Ur Specific [place] 1.020 (1.005-1.025) Urine Protein 30 (1+) H (Neg-Trace) mg/dL Urine Glucose (UA) Negative (Negative) mg/dL Urine Ketones Negative (Negative) mg/dL Urine Blood Small (1+) H (Negative) Urine Nitrite Negative (Negative) Ur Leukocyte Esterase Negative (Negative) Urine RBC 6-10 H (0-2) /HPF Urine WBC 0-5 (0-5) /HPF Ur Squamous Epith Cells 3-5 (0-2) /HPF Calcium Oxalate Crystal Present Urine Bacteria None Seen (None Seen) Hyaline Casts 11-20 (0-2) /LPF COVID-19 (VALARIE) Negative (Negative) COVID-19 Clin Com See Note Influenza Type A (ALICIA) Negative (Negative) Influenza Type B (ALICIA) Negative (Negative) Influenza A & B Note See Note 11/27/24 Range/Units 09:07 WBC (4.8-10.8) X10*3/uL RBC (4.20-5.50) X10*6/uL Hgb (12.0-16.0) g/dl Hct (37.0-47.0) % MCV (80.0-98.0) fL MCH (27.0-33.0) pg MCHC (31.0-35.0) g/dl RDW (11.0-16.0) % Plt Count (160-400) X10*3/uL MPV (9.4-12.3) fL Immature Gran % (Auto) (0.0-0.4) % Neut % (Auto) (45-73) % Lymph % (Auto) (20-40) % [place] % (Auto) (2-11) % Eos % (Auto) (0-4) % Baso % (Auto) (0-2) % Lymph # (Auto) (1.2-4.9) X10*3/uL [place] # (Auto) (0.1-1.2) X10*3/uL Eos # (Auto) (0.0-0.4) X10*3/uL Baso # (Auto) (0.0-0.2) X10*3/uL Abs Immat Gran (auto) (0.00-0.03) X10*3/uL Absolute Neuts (auto) (2.0-8.3) x10*3/uL Absolute Nucleated RBC (0.0-0.012) X10*3/uL Nucleated RBC % (auto) (0.0-0.2) /100WBC VBG pH (7.32-7.43) VBG pCO2 mmHg VBG pO2 mmHg VBG HCO3 (22-26) mmol/L VBG O2 Saturation % VBG Base Excess mmol/L Sodium 143 (135-145) mmol/L Potassium 3.4 (3.3-5.1) mmol/L Chloride 101 (96-108) mmol/L Carbon Dioxide 35 H (22-29) mmol/L Anion Gap 10 L (12-20) BUN 9 (9-16) mg/dL Creatinine 0.64 (0.5-1.4) mg/dL Estim Creat Clear Calc 69.9 Estimated GFR > 60 Random Glucose 93 (60-115) mg/dL Calcium 9.2 (8.4-10.2) mg/dL Magnesium (1.6-2.6) mg/dL Total Bilirubin (0.0-1.0) mg/dL AST (5-31) U/L ALT (0-31) U/L Alkaline Phosphatase (39-117) U/L Troponin I High Sens (<3.5-17.0) ng/L NT-Pro-B Natriuret Pep (<300) pg/mL Total Protein (6.5-8.0) g/dL Albumin (3.5-5.0) g/dL Urine Color Urine Appearance Urine pH (5.0-9.0) Ur Specific [place] (1.005-1.025) Urine Protein (Neg-Trace) mg/dL Urine Glucose (UA) (Negative) mg/dL Urine Ketones (Negative) mg/dL Urine Blood (Negative) Urine Nitrite (Negative) Ur Leukocyte Esterase (Negative) Urine RBC (0-2) /HPF Urine WBC (0-5) /HPF Ur Squamous Epith Cells (0-2) /HPF Calcium Oxalate Crystal Urine Bacteria (None Seen) Hyaline Casts (0-2) /LPF COVID-19 (VALARIE) (Negative) COVID-19 Clin Com Influenza Type A (ALICIA) (Negative) Influenza Type B (ALICIA) (Negative) Influenza A & B Note Radiology Impression Discussion of test interpretation with radiology: I have reviewed the radiologist's reading. Radiologist Impression: Findings: There is mild atrophy and white matter changes. No acute hemorrhage or definite acute infarct is seen. There is no hydrocephalus or mass effect. Moderate fluid left mastoid air cells. There is minimal sinus disease. Impression: No acute hemorrhage or definite acute infarct. This document has been electronically signed by: Hugo Connor MD on 11/26/2024 20:05:13 Findings: No focal areas of consolidation identified within the lungs. No pleural effusion or pneumothorax. The heart is slightly rotated deviated to the left. No significant cardiac chamber enlargement is seen. Dense vascular calcification of the coronary arteries and thoracic aorta. Tortuosity of the descending thoracic aorta crosses the midline to extend into along the right aspect of the vertebral bodies. Mural thrombus is seen along the posterior 1/3 of the descending thoracic aorta without dissection or aneurysmal dilatation. This atherosclerotic calcification extends into the abdominal aorta. Mildly prominent lymph nodes within the precarinal region measuring 12 mm in short axis. No enlarged axillary or hilar lymph nodes. Small hiatal hernia. Surgical clips are seen adjacent to the hiatal hernia. Metal artifact from the patient's left shoulder arthroplasty. No acute fractures. IMPRESSION: 1. No acute infiltrates or edema. 2. Multifocal vasculopathy as discussed above. This document has been electronically signed by: Jeffry Lyn MD on 11/26/2024 22:19:47 Findings: Please refer to the patient's separately dictated CT of the chest from same time for information regarding findings within the lower chest. CT abdomen: Extensive vascular calcification of the abdominal aorta, mesenteric arteries, renal arteries, and iliac arteries. Unchanged 3.6 cm infrarenal abdominal aortic aneurysms. There is mild aneurysmal dilatation of the right common iliac artery 0.7 cm. Left common iliac artery is ectatic at 0.5 cm. Gallbladder is not visualized. Dilation of the extrahepatic biliary tree as seen on prior study without discrete intraluminal filling defects within the common bile duct. Focal hepatic lesions. Spleen, pancreas, and adrenal glands are unremarkable. Bilateral renal cysts are not appreciably changed compared to prior study. Small hiatal hernia. Fluid-filled loops of nondilated small bowel. No free fluid or free air. CT pelvis: Uterus is surgically absent. Urinary bladder is minimally distended. Scattered diverticuli within the colon, especially within the descending colon and sigmoid colon. No findings of diverticulitis. Appendix is not visualized. No free fluid or free air. Antegrade intramedullary higinio with single spanning gamma nail seen within the right proximal femur. IMPRESSION: No acute imaging explanation for the patient's symptoms. This document has been electronically signed by: Jeffry Lyn MD on 11/27/2024 01:37:34 Discharge Plan Discharge Clinical Impression: Falls, Weakness Patient Disposition: Home, Self-Care Instructions: Weakness (ED) Additional Instructions: Please continue home prescribed medications. You are being discharged home with resumption of VNA Please have close follow up with the primary care doctor If her symptoms persist or worsen, you have recurrent or increasing falls return to the ED Prescriptions: No Action (DME) stair lift and ramp See Rx Instructions .Route .MEDSUPPLY Qty: 1 0RF Rx Instructions: As directed (DME) blood-glucose meter [OneTouch Ultra2 Meter] Kit See Rx Instructions .Route Qty: 1 0RF Rx Instructions: As directed (DME) blood-glucose meter [OneTouch UltraMini] Kit See Rx Instructions .Route Qty: 1 0RF Rx Instructions: As directed (DME) Wheelchair Ramp See Rx Instructions .Route .MEDSUPPLY Qty: 1 0RF Rx Instructions: As directed (DME) Transfer Bench Misc See Rx Instructions .Route Qty: 1 0RF Rx Instructions: As directed for bath tub (DME) blood pressure monitor [Blood Pressure Kit] Kit See Rx Instructions .Route Qty: 1 0RF Rx Instructions: As directed (DME) [facility] Bed diagnosis I50.32 See Rx Instructions .Route .MEDSUPPLY Qty: 1 0RF Rx Instructions: As directed, GERMAN 99 (DME) Nebulizer supplies See Rx Instructions .Route .MEDSUPPLY Qty: 3 3RF Rx Instructions: As directed (DME) Air mattress See Rx Instructions .Route .MEDSUPPLY Qty: 1 0RF Rx Instructions: As directed nitroglycerin 0.4 mg tablet, sublingual 0.4 mg sublingual Q5M PRN (Reason: for angina) 90 Days Qty: 25 0RF (DME) FOUR WHEEL SCOOTER See Rx Instructions .Route .MEDSUPPLY Qty: 1 0RF Rx Instructions: As directed (DME) pads for bedsores 7 7/8 X 11 3/4 pad See Rx Instructions .Route Qty: 50 11RF Rx Instructions: As directed (DME) pressure release mattress See Rx Instructions .Route .MEDSUPPLY Qty: 1 0RF Rx Instructions: As directed (DME) OneTouch Ultra Test Strip See Rx Instructions .ROUTE .COMPLEX Qty: 100 3RF Dose Instruction: DIRECTED TEST BLOOD GLUCOSE DAILY Rx Instructions: DIRECTED TEST BLOOD GLUCOSE DAILY (DME) lancets Misc See Rx Instructions .Route Qty: 100 3RF Rx Instructions: As directed test blood glucose daily (DME) lancets [OneTouch Delica Plus Lancet] 33 gauge misc See Rx Instructions .ROUTE .COMPLEX Qty: 100 0RF Dose Instruction: USE TO TEST DAILY Rx Instructions: USE TO TEST DAILY loperamide [Imodium A-D] 2 mg capsule 2 mg PO Q6H PRN (Reason: loose stool) Qty: 14 0RF Debrox 6.5 % drops 10 drp otic (ears) DAILY 4 Days Qty: 15 0RF polymyxin B sulf-trimethoprim 10,000 unit- 1 mg/mL drops 1 drp ophthalmic (eye) QID 7 Days Qty: 10 0RF thiamine HCl (vitamin B1) 100 mg tablet 100 mg PO DAILY Qty: 90 2RF (DME) POWER WHEELCHAIR See Rx Instructions .Route .MEDSUPPLY Qty: 1 0RF Rx Instructions: As directed ketoconazole 2 % shampoo 1 appl topical 2XW Qty: 120 2RF nystatin 100,000 unit/gram cream 1 appl topical TID Qty: 30 1RF gabapentin 100 mg capsule 100 mg PO BEDTIME Qty: 90 1RF meclizine 12.5 mg tablet 12.5 mg PO BID PRN (Reason: for motion sickness) Qty: 60 5RF (DME) UNDERPADS Disposable BED See Rx Instructions .Route .MEDSUPPLY Qty: 3 11RF Rx Instructions: As directed (DME) pads overnight- large See Rx Instructions .Route .MEDSUPPLY Qty: 2 0RF Rx Instructions: As directed Desitin Multi-Purpose 71.3 % ointment 1 appl topical BID-TID PRN (Reason: dry skin) Qty: 99 1RF ezetimibe 10 mg tablet 10 mg PO DAILY Qty: 90 3RF levothyroxine 100 mcg tablet 100 mcg PO DAILY@0600 Qty: 90 3RF dexlansoprazole 30 mg capsule,biphase delayed releas 30 mg PO DAILY Qty: 90 3RF cyanocobalamin (vitamin B-12) 1,000 mcg/mL solution 1,000 mcg IM Q4W 90 Days Qty: 4 15RF (DME) Purewick external catheter See Rx Instructions .Route .MEDSUPPLY Qty: 1 0RF Rx Instructions: As directed cetirizine 10 mg tablet 10 mg PO DAILY PRN (Reason: for allergies) Qty: 90 1RF nitrofurantoin monohyd/m-cryst [Macrobid] 100 mg capsule 100 mg PO Q12H 7 Days Qty: 14 0RF Rx Instructions: must administer with a meal/food Adult 50 Plus Probiotic 4 billion cell capsule 4,000 mmu cells PO DAILY Qty: 30 2RF Rx Instructions: administer with a meal albuterol sulfate 90 mcg/actuation HFA aerosol inhaler 2 puff PO Q4H PRN (Reason: for respiratory distress) Qty: 8.5 5RF (DME) BD Integra Syringe 3 mL 25 gauge x 5/8 syringe See Rx Instructions .Route Qty: 100 12RF Rx Instructions: As directed ondansetron HCl 8 mg tablet 8 mg PO Q12H PRN (Reason: nausea and vomiting) Qty: 30 0RF ascorbic acid (vitamin C) 500 mg tablet 500 mg PO BID Qty: 180 3RF albuterol sulfate 2.5 mg /3 mL (0.083 %) solution for nebulization 2.5 mg inhalation Q6H PRN (Reason: for wheezing) Qty: 180 11RF atorvastatin 80 mg tablet 80 mg PO BEDTIME Qty: 90 1RF clotrimazole 1 % cream 1 appl topical BID PRN (Reason: Rash) Qty: 45 11RF Trulicity 3 mg/0.5 mL pen injector 3 mg subcut SA Qty: 2 3RF (DME) replacement mattress for her hospital bed See Rx Instructions .Route .MEDSUPPLY Qty: 1 0RF Rx Instructions: As directed (DME) Half bed rail for hospital bed See Rx Instructions .Route .MEDSUPPLY Qty: 2 0RF Rx Instructions: As directed diltiazem HCl [Cardizem CD] 120 mg capsule,extended release 24hr 120 mg PO DAILY Qty: 90 2RF Protocol: Hold for SBP/HR < HOLD for SBP < : 90 HOLD for HR < : 60 metoprolol succinate 100 mg tablet extended release 24 hr 100 mg PO DAILY Qty: 30 2RF (DME) hospital bed See Rx Instructions .Route .MEDSUPPLY Qty: 1 0RF Rx Instructions: As directed (DME) Reclining wheelchair See Rx Instructions .Route .MEDSUPPLY Qty: 1 0RF Rx Instructions: As directed furosemide 40 mg tablet 20 - 40 mg PO DAILY Qty: 90 3RF Eliquis 5 mg tablet 5 mg PO BID 90 Days Qty: 180 0RF tramadol 50 mg tablet 50 mg PO Q6H PRN (Reason: Pain) Qty: 30 0RF cholecalciferol (vitamin D3) [Vitamin D3] 25 mcg (1,000 unit) Capsule 25 mcg PO DAILY dicyclomine 10 mg Capsule 10 mg PO Q6H PRN (Reason: Abdominal Pain) aspirin 81 mg Tablet,Delayed Release (Dr/Ec) 81 mg PO DAILY ipratropium-albuterol 0.5 mg-3 mg(2.5 mg base)/3 mL solution for nebulization 3 ml inhalation QID PRN (Reason: Shortness Of Breath Or Wheezing) acetaminophen 650 mg Tablet Extended Release 650 mg PO Q8H PRN (Reason: Pain) duloxetine 30 mg capsule,delayed release(DR/EC) 30 mg PO DAILY Rx Instructions: TAKE 1 CAPSULE BY MOUTH EVERY DAY fluticasone propion-salmeterol [Wixela Inhub] 500-50 mcg/dose blister with device 1 inh inhalation BID (DME) compress.stocking,knee,reg,lrg Misc See Rx Instructions .Route Qty: 12 0RF Rx Instructions: As directed 20-30 mm HG Referrals: [facility] [Outside] Po,Chantal Albrecht MD [Primary Care Provider, Internal Medicine] - 5 days Interventions: ED Discharge Assessment Last Done: 11/27/24 15:26 Discharge Date/Time: 11/27/24 15:27 Print Language: Faroese
[2024-11-26 19:05] LABS: Appearance Urine Turbid; Glucose Urine UA Negative (Negative); PH 6.5 (5.0-9.0); Specific Gravity - Urine 1.020 (1.005-1.025); UMIC TRIGGER UACC YES
--- NOTE | 2024-11-26 19:27 | PC.NURSE ---
assumed care of pt, awaiting to be taken for CT scans, pt prefers to lie of her left side, states she is more comfortable. respirations even and unlabored. IV placed by RN before me, intact and patent at this time in R bicep.
--- NOTE | 2024-11-26 21:21 | PC.NURSE ---
pt placed on purewick by central sterile supply technician REGGIE. pt on 2L 02 as this is her baseline at home, SP02 at 93% on 2L
[2024-11-26 21:35] VITALS: PULSE 116; RESP 23; TEMP 36.6
[2024-11-26 22:12] VITALS: BP 168/96; RESP 20; O2SAT 93
--- NOTE | 2024-11-26 22:14 | PC.NURSE ---
pt daughter Casandra called and I returned call to [phone], updated; pt in ED room 4, on baseline oxygen of 2L, Ct scans done and awaiting results. Casandra asked that we call her if pt gets admitted.
[2024-11-27 01:09] VITALS: BP 168/94; PULSE 85; RESP 20; TEMP 36.4; O2SAT 95
--- NOTE | 2024-11-27 04:10 | PC.NURSE ---
pt request medication for her nausea. attempted to do pt med req, pt states she is unsure what medications she takes, she has a home nurse that dispenses them. she kniows she takes a blood pressure pill but not what kind.
--- NOTE | 2024-11-27 04:26 | PC.NURSE ---
pt medicated per APR for nausea.
[2024-11-27 09:25] LABS: Anion Gap 10 (12-20); Blood Urea Nitrogen 9 mg/dL (9-16); Calcium 9.2 mg/dL (8.4-10.2); Carbon Dioxide 35 mmol/L (22-29); Chloride 101 mmol/L (96-108); Creatinine Clr Calc Pharmacy 69.9; Estimated Glomerular Filt Rate > 60; Potassium 3.4 mmol/L (3.3-5.1); Sodium 143 mmol/L (135-145)
[2024-11-27] MEDS: Potassium Chloride Packet 20 MEQ PACKET 40 MEQ PO (09:31)
[2024-11-27 11:36] VITALS: BP 133/54; PULSE 108; RESP 20; TEMP 36.4; O2SAT 93
--- NOTE | 2024-11-27 14:45 | MHC.CM.ED ---
Received case management consult overnight. Patient came to the ER due to shortness of breath and weakness. Work up essentially negative. Physical therapy eval completed. Short term rehab is recommended. Met with patient in regards to discharge planning. Patient has services through [facility] and has oxygen through [facility]. PCP verified. Copy of HCP verified to be on file. Patient is declining STR at this time and will go home with resumption of services via BLS. [facility] BLS booked for 3pm. Med nec with chart. Patient, Donna DENTON and Valencia CUADRA aware. Continue to monitor for d/c needs.
[2024-11-27 15:26] VITALS: BP 133/54; PULSE 108; RESP 20; TEMP 36.4; O2SAT 93
== END 2024-11-27 15:27 | disposition home or self-care (01) ==
PROVIDERS: Physician Assistant; Physician Assistant Medical; Emergency Provider Emergency Medicine; PCP Internal Medicine
DX: R53.1 Weakness (principal); J44.9 Chronic obstructive pulmonary disease, unspecified; E11.9 Type 2 diabetes mellitus without complications; I11.0 Hypertensive heart disease with heart failure; I50.9 Heart failure, unspecified; I48.91 Unspecified atrial fibrillation; G89.4 Chronic pain syndrome; R10.814 Left lower quadrant abdominal tenderness; R10.812 Left upper quadrant abdominal tenderness; R51.9 Headache, unspecified; R06.02 Shortness of breath; Z99.81 Dependence on supplemental oxygen; Z99.3 Dependence on wheelchair; Z79.01 Long term (current) use of anticoagulants; Z79.4 Long term (current) use of insulin; Z79.899 Other long term (current) drug therapy
CPT/HCPCS: 36415; 70450; 71046; 71260; 74177; 80048; 80053; 81001; 82803; 83735; 83880; 84484; 85025; 87502; 87635; 93005; 97162; 99285

== ENCOUNTER → 2024-11-26 15:35 | Outpatient (BNV) | payer OTHER, SELFPAY | PROVIDERS: PCP Internal Medicine; Visit Provider Radiology Diagnostic Ultrasound | DX: R06.00 Dyspnea, unspecified (principal); M31.8 Other specified necrotizing vasculopathies; R41.0 Disorientation, unspecified; R91.8 Other nonspecific abnormal finding of lung field | CPT/HCPCS: 70450; 71046; 71260 ==

== ENCOUNTER → 2024-11-26 15:35 | Outpatient (BNV) | payer OTHER, SELFPAY | PROVIDERS: Emergency Provider Emergency Medicine; PCP Internal Medicine; Visit Provider Internal Medicine Cardiovascular Disease | DX: R00.0 Tachycardia, unspecified (principal); I44.0 Atrioventricular block, first degree; I49.3 Ventricular premature depolarization; I25.2 Old myocardial infarction | CPT/HCPCS: 93010 ==

== ENCOUNTER 2024-12-15 18:26 | Outpatient (REF) | payer OTHER, SELFPAY ==
--- OUTSIDE RECORDS SUMMARY | 2024-12-15 20:24 | XMS_ITS | Clinical Summary ---
Author Organization [facility] Address [address] [place] [phone] Phone Care Team Providers Care Water Meter Reader Name Role Phone Unavailable Primary Care Provider [...] VACCINE (1 - 1-dose 75+ series) 05/11/2015 INFLUENZA VACCINE (#1) 2024 , 11/25/2019, 12/08/2018, Additional history exists COVID-19 VACCINE ( season) 2024 01/05/2021 Adult Td,Tdap Booster 11/21/2025 11/22/2015 ZOSTER [...] topic Medical Devices Not on file Insurance [employer] [place] [address] [employer] V[employer] [id number] Additional Source Comments The information contained in this document represents components of the legal health record. It is not the complete legal health record.[facility]
--- OUTSIDE RECORDS SUMMARY | 2024-12-15 20:24 | XMS_ITS | Encounter Summary ---
Author Organization [facility] Address [address] [place] [phone] Phone Care Team Providers Care Dough Brake Machine Operator Name Role Phone Unavailable Primary Care Provider Unavailabl e Encounter Details Date Type Department Care Team (Latest Contact Info) Description 04/09/2017 Ancillary Orders [facility] [address] [place] [address] [place] [address] Sanya Benítez, CONNOR [address] [facility] [address] [place] [phone] Sick sinus syndrome; Coronary artery disease involving [place] coronary artery of [place] heart, angina presence unspecified Social History Tobacco [...] is no prior study available for comparison. Sanya Benítez NP [facility] ORDERABL ES Final Result documented in this encounter Visit Diagnoses Diagnosis Sick sinus syndrome Sinoatrial node dysfunction Coronary artery disease involving [place] coronary artery of [place] heart, angina presence unspecified Sick sinus syndrome Sinoatrial node dysfunction Coronary artery disease involving [place] coronary artery of [place] heart, angina presence unspecified documented in this encounter Additional Source Comments The information contained in this document represents components of the legal health record. It is not the complete legal health record.[facility]
--- OUTSIDE RECORDS SUMMARY | 2024-12-15 20:24 | XMS_ITS | Encounter Summary ---
Author Organization [facility] Address [address] [place] [address] Phone Care Team Providers Care Sap Pi Architect Name Role Phone Unavailable Primary Care Provider Unavailabl e Encounter Details Date Type Department Care Team (Late st Contact Info) Description 04/09/2017 Ancillary Orders [facility] [address] [place] [address] [address] Floor, [address] [place] [address] Sanya Benítez, CONNOR [address] [facility] [address] [place] [phone] Social History Tobacco Use Types Packs/Day Years [...] It is not the complete legal health record.[facility]
--- OUTSIDE RECORDS SUMMARY | 2024-12-15 20:25 | XMS_ITS | Data Portability ---
Author Organization [facility], Main Office Address [address], [address] [place] [address] Care Team Providers Care Mission Manager Name Role Phone RUSTY ROSEN 1ST FLOOR [...] and Address Organization Details Recorded Time Dizziness 570052830 Active 2021 Not Available [facility] 4 23:47:36 Vertebral artery occlusion 147659799 Active 2021 Not Available [facility] 4 23:47:36 Aneurysm of middle cerebral artery 201064935 Active 2021 Not Available [facility] 4 23:47:36 Low blood pressure 77181320 Active 2021 Not Available [facility] 4 23:47:36 Chronic respiratory failure 91715117 Active 2021 Not Available [facility] 4 23:47:36 Hypothyroidis m 69450768 Active 2021 Not Available [facility] 4 23:47:36 Diabetes mellitus 71722214 Active 2021 Not Available [facility] 4 23:47:36 Anemia 084500822 Active 2021 Not Available [facility] 4 23:47:36 Vitamin D deficiency 54063551 Active 2021 Not Available [facility] 4 23:47:36 Paroxysmal atrial fibrillation 071312866 Active 2021 Not Available [facility] 4 23:47:36 Falls 622015387 Active 2021 Not Available [facility] 4 23:47:36 Coronary arteriosclero sis 60537178 Active 2021 Not Available [facility] 4 23:47:36 Obesity 299934016 Active 2021 Not Available [facility] 4 23:47:36 Obstructive sleep apnea syndrome 60400311 Active 2021 Not Available [facility] 4 23:47:36 Essential hypertension 73499789 Active 2021 Not Available [facility] 4 23:47:36 Gastroesophag eal reflux disease without esophagitis 935996658 Active 2021 Not Available [facility] 4 23:47:36 Congestive heart failure 16973648 Active 2021 Not Available [facility] 4 23:47:36 Fibromyalgia 377562858 Active 2021 Not Available [facility] 4 23:47:36 Mixed hyperlipidemi a 461548479 Active 2021 Not Available [facility] 4 23:47:36 Gout 04770886 Active 2021 Not Available [facility] 4 23:47:36 Closed fracture of hip 848051275 Active 2022 Not Available [facility] 4 23:47:36 Nausea 727892268 Active 2023 Not Available [facility] 4 23:47:36 Irritable bowel syndrome with diarrhea 933342652 Active 2023 Not Available [facility] 4 23:47:36 Notes:Some problems listed i n Documents: #[id number], #[id number], #[id number] could not be added to this patient's chart. Please review these documents and add these problems to the patient's chart manually as needed. Problem Notes None recorded. Procedures Surgical History Date Name Laterality Status Provider Name and Address Organization Details Recorded Time appendectomy completed JAMAICA CHAO, [employer] [address], [address], [place], [address], [facility] [place] [facility] 09/05/2021 14:35:03 Cholecystectomy completed JAMAICA CHAO, [employer]CTOR [address], [address], [place], [address], [facility] [place] [facility] 09/05/2021 14:35:12 hysterectomy completed AJMAICA CHAO, [employer]ENCE [employer] [address], [address], [place], [address], [facility] [place] [facility] 09/05/2021 14:35:20 procedure on heart completed JORDAN CHAO [employer] [address], [address], [place], [address], [facility] [place] [facility] 09/05/2021 14:36:04 total shoulder replacement completed JAMAICA CHAO, [employer] [address], [address], [place], [address], [facility] [place] [facility] 09/05/2021 14:36:27 procedure on vein completed JAMAICA CHAO, [employer]CTOR [address], [address], [place], [address], [facility] [place] [facility] 09/05/2021 14:36:48 operation on stomach completed JAMAICA CHAO [employer] [address], [address], [place], [address], [facility] [place] [facility] 09/05/2021 14:37:08 Imaging Results None recorded. Procedure Notes None recorded. Medical Equipment None Reported. Allergies Allergen ID Allergen Name Allergen Category Reaction Reaction Severity Criticality Documentation Date Start Date Code Code System Note Provider Name and Address Organization Details Recorded Time 97768 morphine medicatio n Not available Not available Not available 09/05/2021 7052 RxNorm JAMAICA CHAO, [employer]CTOR [address], [address], [place], [address], [facility] 2 14:28:42 51278 Lyrica medicatio n Not available Not available Not available 09/05/2021 41861 1 RxNorm JAMAICA JEREMIE, [employer]RES[employer] IN[employer]CTOR [address] [facility], [address], [place], [address], [facility] 2 14:28:48 Medications Name Sig Start Date [...] 97 % 128/61 mm[Hg] YUNG CALVILLO [address] [facility], [address], [place], [address], [facility] 4 13:10:16 Date Recorded Body height Provider Name an d Address Organization Details Last Updated DateTime 05/01/2023 160.02 cm YUNG CALVILLO [address] [place] [address], [address], [place], [address], [facility] 05/01/2023 15:43:18 Date Recorded Body height Body temperature Heart rate Respiratory rate Systolic And Diastolic Provider Name and Address Organization Details Last Updated DateTime 4 160.02 cm 98 [degF] 77 /min 17 /min 130/72 mm[Hg] YUNG CALVILLO [address] [place] [address], [address], [place], [address], [facility] 4 13:03:17 Date Recorded Body height Body temperature Respiratory rate Heart rate Oxygen saturation Oxygen saturation in Arterial blood by Pulse oximetry Systolic And Diastolic Provider Name and Address Organization Details Last Updated DateTime 4 160.02 cm 97.9 [degF] 18 /min 87 /min 96 % 96 % 122/72 mm[Hg] YUNG CALVILLO [address] [facility], [address], [place], [address], [facility] 4 00:16:06 Social History Question Answer Notes LastModified by Organizat ion Details LastModified Time Tobacco Smoking Status Former Smoker quit about 1999 Verna Barney MD [address] [place] [address], [address], [place], [address], [facility] [place] [facility] 02/19/2023 18:54:47 Do You Have [...] Do You Have A Medical Power Of Tattoo Designer? Yes HCP On File Information not available [...] by Organization Details LastModified Time Mother Malignant neoplasm of colon [email or web address] Not available 09/05/2021 14:20:39 Sister Malignant neoplasm of colon [email or web address] Not available [...] dose 1 completed Not Available [facility] 04/08/2023 23:47:37 COVID-19, mRNA, LNP-S, PF, 100 mcg/0.5mL dose or 50 mcg/0.25mL dose 2 completed Not Available [facility] 04/08/2023 23:47:37 Tdap 6 completed Not Available [facility] 04/08/2023 23:47:37 Influenza, split virus, quadrivalent, preservative 1 completed Not Available [facility] 04/08/2023 23:47:37 pneumococcal polysaccharide PPV23 1 completed Not Available [facility] 04/08/2023 23:47:37 pneumococcal polysaccharide PPV23 9 completed Not Available [facility] 04/08/2023 23:47:37 Pneumococcal conjugate PCV 13 0 completed Not Available [facility] 04/08/2023 23:47:37 zoster, unspecified formulation 8 completed Not Available [facility] 04/08/2023 23:47:37 zoster, unspecified formulation 9 completed Not Available [facility] 04/08/2023 23:47:37 zoster, unspecified formulation 6 completed Not Available [facility] 04/08/2023 23:47:37 Influenza, adjuvanted, quadrivalent, PF 3 completed Not Available [facility] 04/08/2023 23:47:37 Past Encounters Encounter ID Performer Location Encounter Start Date Encounter Closed Date Diagnosis/Indication Diagnosis SNOMED-CT Code Diagnosis ICD10 Code Diagnosis IMO Codes Diagnosis Note [id number] YUNG EGAN [address] [address] 09/05/2021 11:46:21 09/07/2021 08:06:00 Dizziness 087439799 R42 meclizine 12.5 mg bid prn monitor Low blood pressure 62766 003 I95.89 lasix 40 mg bid and losartan 50 mg qd discontinu ed in hospital for now monitor b/p and add back as able Vertebral artery occlusion 554097872 I65.02 needs to have a appt with outpatient [facility] neurosurge ry monitor Aneurysm o f middle cerebral artery 787183668 I67.1 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 will need to have outpatient appt with [facility] neurosurge ry [place] 025736237 R29.6 PT/OT eval and treat prn monitor for safety Essential hypertension 58299611 I10 ASA 81 mg qd diltiazem 120 mg qd carvedilol 25 mg bid lasix and losartan discontinu ed-watch to be able to add back monitor b/p and labs Coronary arteriosclerosis 44136081 I25.10 nitro 0.4 mg SL q 5 minutes x3 atorvastat in 40 mg qd ezetimibe 10 mg qd eliquis 5 mg bid ASA 81 mg qd diltiazem 120 mg qd carvedilol 25 mg bid monitor Diabetes mellitus 048382 09 E11.9 carb control diet glucose check bid semaglutid e 1.5 mg sq weekly monitor for s/s of hypo/hyper glycemia monitor A1c Congestive heart failure 76333719 I50.89 was on lasix 40 mg bid-monito r for need to add back monitor weights and s/s of heart failure Chronic re spiratory failure 11009899 J96.10 secondary to COPD oxygen at 2 liters via [place] fluticason e propion-sa lmeterol 500-50 mcg 1 inhalation bid spiriva 18 mcg 1 inhalation qd mucinex 600 mg bid prn albuterol neb 2.5 mg/3 ml q 4 hrs prn duo neb qid albuterol hfa 90 mcg 2 puffs q 4 hrs prn monitor for respirator y symptoms Anemia 990588803 D50.8 vitamin B12 1000 mcg IM q 4 weeks vitamin C 500 mg bid ferrous sulfate 325 mg qd monitor labs Fibromyalgia 270221573 M 79.7 duloxetine 30 mg qd meloxicam 7.5 mg qd tylenol 650 mg q 4 hrs prn monitor pain Gastroesop hageal reflux disease without esophagitis 824750844 K21.9 dexilant 30 mg qd dicyclomin e 10 mg qid prn carafate 1 gm q hs monitor for symptoms Hypothyroidism 46621030 E03.8 levothyrox ine 100 mcg qd monitor labs Mixed hyperlipidemia 267 865039 E78.2 atorvastat in 40 mg qd ezetimibe 10 mg qd questran 4 gms qid monitor labs Obesity 438427906 E66.9 encourage good choices director pharmacovigilance consult as needed monitor Paroxysmal atrial fibrillation 865085824 I48.0 eliquis 5 mg bid carvedilol 25 mg bid diltiazem 120 mg qd monitor rate and rhythm Obstructiv e sleep apnea syndrome 43151331 G47.33 not on cpap/bipap uses oxygen at 2 liters via nc monitor Vitamin D deficiency 347 00674 E55.9 vitamin D3 1000 iu qd monitor labs Gout 33712001 M10.9 she notes she has gout on/off in bilateral great toes they are noted to be slightly red may need to give prednisone burst if continues monitor [id number] [facility] [address] [address] 09/06/2021 09:47:43 09/11/2021 20:47:26 Dizziness 460965844 R42 see above continued on meclizine 12.5 mg bid prn monitor utilizatio n Low blood pressure 50669 003 I95.89 see HPIhtn/hyp o tensionnow with losartan and lasix heldcontin ued on coreg 25 mg bidmonitor bp and need to adjust Vertebral artery occlusion 099345274 I65.02 eval by neuro now onasa 81 mg qdlipitor 40 mg qdmonitor for sx Aneurysm o f middle cerebral artery 346068018 I67.1 see HPIright MCA aneurysm 4.6 mmto f/u with neurosurge rymonitor for sxupdate neurosurge ry with concernsmo nitor bp [place] 624361764 R29.6 PT OT eval and treatmonit or fall risk Essential hypertension 60760463 I10 medication s adjusted during hospitaliz ationnow oncoreg 25 mg biddiltiaz em 120 mg qdmonitor bp and need to adjust with lasix and losartan held Coronary arteriosclerosis 46676237 I25.10 at baseline added to PMHlipitor 40 mg qdasa 81 mg qdcoreg 25 mg bidmonitor for sxcards eval prn Diabetes mellitus 714109 09 E11.9 continue current medication smonitor blood glucose and need to adjust Congestive heart failure 80415923 I50.22 see abovecarry ing dxnow off lasixmonit or respirator y function and fluid status Anemia 273895994 D50.8 continue supplement smonitor cbciron studies prn Fibromyalgia 104955231 M 79.7 added to PMHcontinu e out patient meds Gastroesop hageal reflux disease without esophagitis 280507676 K21.9 stable on out patient medsmonito r sxupdate GI with concerns Hypothyroidism 94355062 E03.8 synthroid 100 mcg qdtsh prn Mixed hyperlipidemia 267 581900 E78.2 with baseline cadcontinu e statin and zetia Obesity 934411446 E66.09 dietary to eval Paroxysmal atrial fibrillation 488849761 I48.0 eliquis 5 mg bidcoreg 25 mg bidmonitor for rate control Obstructiv e sleep apnea syndrome 46097316 G47.33 added to PMHdoes not utilize cpap Chronic ob structive pulmonary disease 54838757 J41.1 baseline copd on O2 by 2 liters NC at baselineco ntinue out patient medsmonito r respirator y statuspulm onary eval prn [id number] YUNG EGAN [address] [address] 09/15/2021 13:21:28 09/19/2021 11:48:58 Dizziness 900961619 R42 meclizine 12.5 mg bid prn monitor Vertebral artery occlusion 815068864 I65.02 needs to have a appt with outpatient [facility] neurosurge ry monitor Aneurysm o f middle cerebral artery 821044074 I67.1 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 will need to have outpatient appt with [facility] neurosurge ry [place] 656095869 R29.6 PT/OT eval and treat prn monitor for safety Essential hypertension 48614739 I10 ASA 81 mg qd diltiazem 120 mg qd carvedilol 25 mg bid monitor b/p and labs Coronary arteriosclerosis 75262803 I25.10 nitro 0.4 mg SL q 5 minutes x3 atorvastat in 40 mg qd ezetimibe 10 mg qd eliquis 5 mg bid ASA 81 mg qd diltiazem 120 mg qd carvedilol 25 mg bid monitor Diabetes mellitus 541481 09 E11.9 carb control diet glucose check bid semaglutid e 1.5 mg sq weekly monitor for s/s of hypo/hyper glycemia monitor A1c Congestive heart failure 04831956 I50.89 not on diuretic at this time monitor weights and s/s of heart failure Chronic re spiratory failure 15734215 J96.10 secondary to COPD oxygen at 2 liters via nc fluticason e propion-sa lmeterol 500-50 mcg 1 inhalation bid spiriva 18 mcg 1 inhalation qd mucinex 600 mg bid prn albuterol neb 2.5 mg/3 ml q 4 hrs prn duo neb qid albuterol hfa 90 mcg 2 puffs q 4 hrs prn monitor for respirator y symptoms Anemia 980362149 D50.8 vitamin C 500 mg bid ferrous sulfate 325 mg qd monitor labs Fibromyalgia 540827339 M 79.7 duloxetine 30 mg qd meloxicam 7.5 mg qd tylenol 650 mg q 4 hrs prn monitor pain Gastroesop hageal reflux disease without esophagitis 428394148 K21.9 dexilant 30 mg qd dicyclomin e 10 mg qid prn carafate 1 gm q hs monitor for symptoms Hypothyroidism 03874335 E03.8 levothyrox ine 100 mcg qd monitor labs Mixed hyperlipidemia 267 524021 E78.2 atorvastat in 40 mg qd ezetimibe 10 mg qd questran 4 gms qid monitor labs Obesity 786084129 E66.9 encourage good choices director pharmacovigilance consult as needed monitor Paroxysmal atrial fibrillation 645092315 I48.0 eliquis 5 mg bid carvedilol 25 mg bid diltiazem 120 mg qd monitor rate and rhythm Obstructiv e sleep apnea syndrome 01289381 G47.33 not on cpap/bipap uses oxygen at 2 liters via [place] monitor Vitamin D deficiency 347 58818 E55.9 vitamin D3 1000 iu qd monitor labs Gout 33069010 M10.9 she notes she has gout on/off in bilateral great toes monitor Acute urin dom tract infection 500042707 N39.0 keflex 250 mg q 6 hrs x 3 days probiotic bid x 6 days monitor for resolution [id number] YUNG EGAN [facility] [address] [address] 09/18/2021 10:54:07 09/20/2021 15:18:56 Chronic respiratory failure 13378694 J96.10 secondary to COPD oxygen at 2 liters via [place] fluticason e propion-sa lmeterol 500-50 mcg 1 inhalation bid spiriva 18 mcg 1 inhalation qd mucinex 600 mg bid prn albuterol neb 2.5 mg/3 ml q 4 hrs prn duo neb qid albuterol hfa 90 mcg 2 puffs q 4 hrs prn monitor for respirator y symptoms Essential hypertension 91636556 I10 ASA 81 mg qd eliquis 5 mg bid diltiazem 120 mg qd carvedilol 25 mg bid monitor b/p and labs [id number] RADHA YODER NP [facility] [address] 09/21/2021 08:34:12 09/26/2021 14:28:17 Acute urinary tract infection 429866028 N39.0 keflex 250 mg q 6 hrs x 3 days completecl inically improvedMo nitor for sx. as outpt. Dizziness 797316020 R42 continue meclizine 12.5 mg bid prn monitor as outpt Aneurysm o f middle cerebral artery 286717700 I67.1 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continue asa and statinneed s outpatient appt with [facility] neuro[facility]ge [facility] [place] 454510631 R29.6 PT/OT eval and treat - meeting goals for d/c home monitor for safety as outpt Essential hypertension 78060692 I10 Prior issues low BP, taken off lasix 40 mg bid and losartan 50 mg qd in the hospitalNo issues with low BP hereCurren tly on: diltiazem 120 mg qd carvedilol 25 mg bid monitor b/p and labs as outpt. Coronary arteriosclerosis 07353845 I25.10 Continue current meds:nitro 0.4 mg SL q 5 minutes x3 atorvastat in 40 mg qd ezetimibe 10 mg qd eliquis 5 mg bid ASA 81 mg qd diltiazem 120 mg qd carvedilol 25 mg bid monitor VS, labs, CP status as outpt. Diabetes mellitus 702857 09 E11.9 Conitnue:c arb control diet semaglutid e 1.5 mg sq weekly monitor for s/s of hypo/hyper glycemia - no issues here monitor A1c Congestive heart failure 68884895 I50.89 not on diuretic at this time monitor weights and s/s of heart failure Chronic re spiratory failure 64630833 J96.10 secondary to COPDContin ue: oxygen at 2 liters via nc fluticason e propion-sa lmeterol 500-50 mcg 1 inhalation bid spiriva 18 mcg 1 inhalation qd mucinex 600 mg bid albuterol neb 2.5 mg/3 ml q 4 hrs prn duo neb qid albuterol hfa 90 mcg 2 puffs q 4 hrs prn monitor respirator y symptoms as outpt. Anemia 577249089 D50.8 Continue:v itamin C 500 mg bid ferrous sulfate 325 mg qd monitor CBC, s/s active bleeding as outpt. Fibromyalgia 984031903 M 79.7 Continue:d uloxetine 30 mg qd meloxicam 7.5 mg qd tylenol 650 mg q 4 hrs prn monitor pain Gastroesop hageal reflux disease without esophagitis 409087477 K21.9 Continue:d exilant 30 mg qd dicyclomin e 10 mg qid prn carafate 1 gm q hs monitor for symptoms Hypothyroidism 00762744 E03.8 continue levothyrox ine 100 mcg qd monitor labs Mixed hyperlipidemia 267 784347 E78.2 continue:a torvastati n 40 mg qd ezetimibe 10 mg qd questran 4 gms qid monitor labs Paroxysmal atrial fibrillation 870122372 I48.0 continue:e liquis 5 mg bid carvedilol 25 mg bid diltiazem 120 mg qd monitor as outpt Obstructiv e sleep apnea syndrome 34885826 G47.33 not on cpap/bipap uses oxygen at 2 liters via [place] monitor Vitamin D deficiency 347 54228 E55.9 vitamin D3 1000 iu qd monitor labs [id number] CONNOR NOVAK [address] [place] [address] rd [place] [address] 02/13/2023 10:15:03 02/26/2023 10:04:21 [place] 983043997 R29.6 PT OT eval and treatfall precaution sfrequent safety checks Dizziness 940427746 R42 meclizine 12.5 mg bid prnmonitor as outpt Essential hypertension 19530088 I10 lasix 40 mg dailymonit or b/p and labs as outpt. Coronary arteriosclerosis 05621329 I25.10 nitro 0.4 mg SL q 5 minutes [id number] atin 80 mg qdezetimib e 10 mg qdeliquis 5 mg bidASA 81 mg qdmonitor VS, labs, CP status as outpt. Diabetes mellitus 024083 09 E11.9 carb control dietsemagl utide 3 mg sq weeklymoni tor for s/s of hypo/hyper glycemiamo nitor A1c Congestive heart failure 62951894 I50.89 lasix 40 mg dailymonit or weights and s/s of heart failure Chronic re spiratory failure 28691501 J96.10 oxygen at 2 liters via [place] fluticason e propion-sa lmeterol 500-50 mcg 1 inhalation bidspiriva 18 mcg 1 inhalation qdalbutero l neb 2.5 mg/3 ml q 4 hrs prnduo neb qidalbuter ol hfa 90 mcg 2 puffs q 4 hrs prnmonitor respirator y symptoms as outpt. Paroxysmal atrial fibrillation 463879522 I48.0 eliquis 5 mg bidtoprol 50 mg dailymonit or as outpt Anemia 686425043 D50.8 vitamin C 500 mg bidferrous sulfate 325 mg qdthiamine 100 mg [id number] 1000 om monthlymon itor CBC Fibromyalgia 286383969 M 79.7 duloxetine 30 mg qdtylenol 650 mg q 4 hrs prnmonitor pain Gastroesop hageal reflux disease without esophagitis 140194005 K21.9 dexilant 30 mg qddicyclom ine 10 mg qid prncarafat e 1 gm q hszofran 8 mg q12 hr prnmonitor for symptoms Hypothyroidism 76919977 E03.8 levothyrox ine 100 mcg qdmonitor labs Mixed hyperlipidemia 267 950234 E78.2 atorvastat in 80 mg qdezetimib e 10 mg qdmonitor labs Obstructiv e sleep apnea syndrome 08235175 G47.33 not on cpap/bipap uses oxygen at 2 liters via nc monitor Vitamin D deficiency 347 55773 E55.9 vitamin D3 1000 iu qd monitor labs Closed fra cture of hip 666162603 S72.001A followup with ortho in 2 weekstrama dol 50 mg q6hr prnmonitor surgical incision for s/s infection [id number] SARAH PETERSON NP [address] [address] 02/15/2023 09:53:27 02/26/2023 11:30:23 Dizziness 952284610 R42 meclizine 25 mg tidmonitor as outpt Closed fra cture of hip 107359294 S72.001A followup with ortho in 2 weekstrama dol 50 mg q6hr prnmonitor surgical incision for s/s infection Congestive heart failure 47256631 I50.89 lasix 40 mg dailymonit or weights and s/s of heart failure [id number] Verna Barney MD [address] [address] 02/19/2023 13:15:20 02/26/2023 13:59:05 [place] 624645883 R29.6 As above. Closed fra cture of hip 524424965 S72.041D Poor cooperatio n with rehab.Very deconditio [place].Needs PT/OT for strengthen ing, balance, gait training, safety and function.C ontinue fall precaution s.Monitor for safety.Con tinue tramadol 50 mg q 6 hrs prnWill add APAP 1000 mg TID,Monito r surgical incision.F /U with ortho as planned Dizziness 391409016 R42 Not clearly vertigo, could be orthostati c hypotensio n.Will check orthostati c vitals BID x 2 days.Tracy nue meclizine 25 mg TIDMonitor sxs Essential hypertension 25883563 I10 Good control lasix 40 mg qd and metoprolol 50 mg qd.Monitor BP and labs. Coronary arteriosclerosis 10494014 I25.10 No current sxs.Contin ue meds as above and NTG 0.4 mg SL q 5 minutes x3 prn, atorvastat in 80 mg qd, ezetimibe 10 mg qd and ASA 81 mg qdMonitor sxs and vital.F/U with cardio prn. Diabetes mellitus 167194 09 E11.9 In excellent control since here.Tracy nue semaglutid e 3 mg sq weekly and SSI.Will decrease fingerstic ks to fasting and monitor HgA1C q 3 months. Congestive heart failure 46079807 I50.89 Appears euvolemic. Continue meds as above.Urmila tor resp. status, fluid status, wts and labs. Chronic re spiratory failure 05970221 J96.11 At baseline.C ontinue supplement al O2 at 2 liters by [place].Duonebs are supposed to be qid scheduled, but written as prn, will change.Con tinue Advair 500/50 mcg BID, spiriva 18 mcg qd, albuterol nebs q 6 hrs prn, and albuterol HFA 90 mcg 2 puffs q 4 hrs prn.Monito r resp status. Paroxysmal atrial fibrillation 127497564 I48.0 Rate in good control on meds as above.Cont inue eliquis 5 mg BID for AC.Monitor HR and bleeding risk. Anemia 235808127 D50.8 With minimal drop post-op.Co ntinue FeSO4 325 mg qd with vitamin C 500 mg BID, thiamine 100 mg qd and vitamin B12 1000 mcg q monthMonit or labs. Fibromyalgia 472149211 M 79.7 Continue duloxetine 30 mg qdAlso currently on tramadol and APAP for hip fx.Monitor sxs. Gastroesop hageal reflux disease without esophagitis 883887548 K21.9 No current sxs.Contin ue omeprazole 20 mg qd and zofran 8 mg q 12 hrs prnMonitor for sxs Hypothyroidism 26410350 E03.8 Last TSH 4.82 in 11/2022 with nl FT4.Contin ue levothyrox ine 100 mcg qdMonitor labs prn Mixed hyperlipidemia 267 243974 E78.2 Continue atorvastat in 80 mg qd and ezetimibe 10 mg qdMonitor labs as outpt. Obstructiv e sleep apnea syndrome 69499620 G47.33 Intolerant of cpap/bipap Continue supplement al O2 as above.Urmila tor sats. Vitamin D deficiency 347 57367 E55.9 Continue vitamin D3 1000 IU qdMonitor labs as outpt. Aneurysm o f middle cerebral artery 071331709 I67.1 Hx of 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Saw neurosurg several times, imaging showed stable size.Decis ion for conservati ve tx due to other medical problems.W ould embolize only if sxs of severe [place]. Nausea [id number] R11.0 Pt. thinks from eye problem as it was there before fallContin ue Zofran 8 mg q 12 hrs prn.F/U with eye dr as planned.Wi ll have nursing try and figure out when appt is. Irritable bowel syndrome with diarrhea 665404486 K58.0 Continue dicyclomin e 10 mg qid prnPt. not interested in trying imodium.Mo nitor bowel habits. [id number] CONNOR NOVAK [address] [place] [phone] 5 02/22/2023 12:34:39 02/26/2023 15:08:05 Congestive heart failure 91384591 I50.89 lasix 40 mg dailymonit or weights and s/s of heart failure Dizziness 724312226 R42 meclizine 25 mg tidmonitor as outpt Closed fra cture of hip 999433646 S72.001A followup with ortho in 2 weekstrama dol 50 mg q6hr prnmonitor surgical incision for s/s infection [id number] YUNG CALVILLO JESSIKA [address] [place] [phone] 5 02/26/2023 11:35:20 03/06/2023 12:35:17 Falls 367040722 R29.6 PT OT eval and treatfall precaution sfrequent safety checks Closed fra cture of hip 114884944 S72.001A follow up with ortho in 2 weekstrama dol 50 mg q6hr prnmonitor surgical incision for s/s infection Dizziness 355789620 R42 meclizine 12.5 mg bid prnmonitor as outpt Essential hypertension 58034759 I10 stablelasi x 40 mg dailymonit or b/p and labs as outpt. Coronary arteriosclerosis 61290431 I25.10 02/26/23 denies chest discomfort nitro 0.4 mg SL q 5 minutes [id number] atin 80 mg qdezetimib e 10 mg qdeliquis 5 mg bidASA 81 mg qdmonitor VS, labs, CP status as outpt. Diabetes mellitus 430249 09 E11.9 stable readings under 150carb control dietsemagl utide 3 mg sq weeklymoni tor for s/s of hypo/hyper glycemiamo nitor A1c Congestive heart failure 79417970 I50.89 lasix 40 mg dailymonit or weights and s/s of heart failure Chronic re spiratory failure 25530295 J96.10 oxygen at 2 liters via nc fluticason e propion-sa lmeterol 500-50 mcg 1 inhalation bidspiriva 18 mcg 1 inhalation qdalbutero l neb 2.5 mg/3 ml q 4 hrs prnduo neb qidalbuter ol hfa 90 mcg 2 puffs q 4 hrs prnmonitor respirator y symptoms as outpt. Paroxysmal atrial fibrillation 008300191 I48.0 eliquis 5 mg bidtoprol 50 mg dailymonit or as outpt Gastroesop hageal reflux disease without esophagitis 951685635 K21.9 dexilant 30 mg qddicyclom ine 10 mg qid prncarafat e 1 gm q hszofran 8 mg q12 hr prnmonitor for symptoms [id number] YUNG CALVILLO [address] [place] [address] [phone] 5 02/28/2023 09:39:57 03/06/2023 13:35:24 Closed fracture of hip 934300538 S72.001A staple intactappt to remove later today.tram adol 50 mg q6hr prnmonitor surgical incision for s/s infection Dizziness 308127190 R42 meclizine 12.5 mg bid prnmonitor as outpt Essential hypertension 88067353 I10 stablelasi x 40 mg dailymonit or b/p and labs as outpt. Coronary arteriosclerosis 13832926 I25.10 02/26/23 denies chest discomfort nitro 0.4 mg SL q 5 minutes [id number] atin 80 mg qdezetimib e 10 mg qdeliquis 5 mg bidASA 81 mg qdmonitor VS, labs, CP status as outpt. Diabetes mellitus 456731 09 E11.9 stable readings under 150carb control dietsemagl utide 3 mg sq weeklymoni tor for s/s of hypo/hyper glycemiamo nitor A1c Congestive heart failure 58431718 I50.89 lasix 40 mg dailymonit or weights and s/s of heart failure Chronic re spiratory failure 40303050 J96.10 oxygen at 2 liters via [place] fluticason e propion-sa lmeterol 500-50 mcg 1 inhalation bidspiriva 18 mcg 1 inhalation qdalbutero l neb 2.5 mg/3 ml q 4 hrs prnduo neb qidalbuter ol hfa 90 mcg 2 puffs q 4 hrs prnmonitor respirator y symptoms as outpt. Paroxysmal atrial fibrillation 760849775 I48.0 eliquis 5 mg bidtoprol 50 mg dailymonit or as outpt Gastroesop hageal reflux disease without esophagitis 802997170 K21.9 dexilant 30 mg qddicyclom ine 10 mg qid prncarafat e 1 gm q hszofran 8 mg q12 hr prnmonitor for symptoms [id number] YUNG CALVILLO [address] [place] [address] [phone] 5 03/04/2023 11:36:26 03/06/2023 14:27:58 Closed fracture of hip 496090544 S72.001A anisa removed 02/28/11tra madol 50 mg q6hr prnmonitor surgical incision for s/s infection Dizziness 802011937 R42 reports that she has not been working with PT due to dizziness. Patient encouraged to utilized prnnursing to assess for dizziness. meclizine 12.5 mg bid prnmonitor as outpt Essential hypertension 60381382 I10 stablelasi x 40 mg dailymonit or b/p and labs as outpt. Congestive heart failure 91006152 I50.89 lasix 40 mg dailymonit or weights and s/s of heart failuretra ce edema noted to ble. Chronic re spiratory failure 14262130 J96.10 oxygen at 2 liters via nc fluticason e propion-sa lmeterol 500-50 mcg 1 inhalation bidspiriva 18 mcg 1 inhalation qdalbutero l neb 2.5 mg/3 ml q 4 hrs prnduo neb qidalbuter ol hfa 90 mcg 2 puffs q 4 hrs prnmonitor respirator y symptoms as outpt. Paroxysmal atrial fibrillation 843576196 I48.0 eliquis 5 mg bidtoprol 50 mg dailymonit or as outpt Gastroesop hageal reflux disease without esophagitis 517346219 K21.9 dexilant 30 mg qddicyclom ine 10 mg qid prncarafat e 1 gm q hszofran 8 mg q12 hr prnmonitor for symptoms [id number] YUNG CALVILLO [address] [place] [phone] 5 03/07/2023 10:08:49 03/11/2023 15:58:17 Closed fracture of hip 709340737 S72.001A right hip with minimal swelling, no s/sx of infection. anisa removed 02/28/11tra madol 50 mg q6hr prnmonitor surgical incision for s/s infection Dizziness 793193957 R42 reports that she has not been working with PT due to dizziness. Patient is encouraged to take prn meclizine prior to therapy.Hung kimball encouraged to utilized prnnursing to assess for dizziness. meclizine 12.5 mg bid prnmonitor as outpt Essential hypertension 04703217 I10 stablelasi x 40 mg dailymonit or b/p and labs as outpt. Congestive heart failure 08511420 I50.89 lasix 40 mg dailymonit or weights and s/s of heart failuretra ce edema noted to ble. Chronic re spiratory failure 82942421 J96.10 oxygen at 2 liters via [place] fluticason e propion-sa lmeterol 500-50 mcg 1 inhalation bidspiriva 18 mcg 1 inhalation qdalbutero l neb 2.5 mg/3 ml q 4 hrs prnduo neb qidalbuter ol hfa 90 mcg 2 puffs q 4 hrs prnmonitor respirator y symptoms as outpt. Paroxysmal atrial fibrillation 927354559 I48.0 eliquis 5 mg bidtoprol 50 mg dailymonit or as outpt Gastroesop hageal reflux disease without esophagitis 368388870 K21.9 dexilant 30 mg qddicyclom ine 10 mg qid prncarafat e 1 gm q hszofran 8 mg q12 hr prnmonitor for symptoms [id number] YUNG CALVILLO RUSTY [address]IK[address] [place] [address] 03/12/2023 07:48:41 03/15/2023 08:33:06 Closed fracture of hip 256912385 S72.001A right hip with minimal swelling, no s/sx of infection. anisa removed 02/28/11tra madol 50 mg q6hr prnmonitor surgical incision for s/s infection Dizziness 186399220 R42 reports improvemen tmeclizine prior to therapy.Hung kimball encouraged to utilized prnnursing to assess for dizziness. meclizine 12.5 mg bid prnmonitor as outpt Essential hypertension 20228779 I10 stablelasi x 40 mg dailymonit or b/p and labs as outpt. Congestive heart failure 54655795 I50.89 lasix 40 mg dailymonit or weights and s/s of heart failuretra ce edema noted to ble. Chronic re spiratory failure 79866707 J96.10 oxygen at 2 liters via [place] fluticason e propion-sa lmeterol 500-50 mcg 1 inhalation bidspiriva 18 mcg 1 inhalation qdalbutero l neb 2.5 mg/3 ml q 4 hrs prnduo neb qidalbuter ol hfa 90 mcg 2 puffs q 4 hrs prnmonitor respirator y symptoms as outpt. Paroxysmal atrial fibrillation 085711869 I48.0 eliquis 5 mg bidtoprol 50 mg dailymonit or as outpt Gastroesop hageal reflux disease without esophagitis 858034581 K21.9 dexilant 30 mg qddicyclom ine 10 mg qid prncarafat e 1 gm q hszofran 8 mg q12 hr prnmonitor for symptoms [id number] YUNG CALVILLO [facility] JESSIKA [address] [facility] [place] [phone] 03/15/2023 08:18:00 03/20/2023 11:41:33 Closed fracture of hip 097461547 S72.001A right hip with minimal swelling, no s/sx of infection. anisa removed 02/28/11tra madol 50 mg q6hr prnmonitor surgical incision for s/s infection Dizziness 101813511 R42 meclizine 12.5 mg bid prnmonitor as outpt Essential hypertension 17518036 I10 stablelasi x 40 mg dailymonit or b/p and labs as outpt. Congestive heart failure 56715358 I50.89 lasix 40 mg dailymonit or weights and s/s of heart failure2+ edema noted to lower ankles Chronic re spiratory failure 32498711 J96.10 O2 dependento xygen at 2 liters via nc fluticason e propion-sa lmeterol 500-50 mcg 1 inhalation bidspiriva 18 mcg 1 inhalation qdalbutero l neb 2.5 mg/3 ml q 4 hrs prnduo neb qidalbuter ol hfa 90 mcg 2 puffs q 4 hrs prnmonitor respirator y symptoms as outpt. Paroxysmal atrial fibrillation 361857249 I48.0 eliquis 5 mg bidtoprol 50 mg dailymonit or as outpt Gastroesop hageal reflux disease without esophagitis 747133140 K21.9 dexilant 30 mg qddicyclom ine 10 mg qid prncarafat e 1 gm q hszofran 8 mg q12 hr prnmonitor for symptoms [id number] YUNG CALVILLO [address] [phone] 5 03/18/2023 07:52:24 04/02/2023 15:36:02 Closed fracture of hip 016716697 S72.001A right hip with minimal swelling, no s/sx of infection. anisa removed 02/28/11tra madol 50 mg q6hr prnmonitor surgical incision for s/s infection Dizziness 631084311 R42 meclizine 12.5 mg bid prnmonitor as outpt Essential hypertension 29647809 I10 stablelasi x 40 mg dailymonit or b/p and labs as outpt. Congestive heart failure 00885050 I50.89 weight today 204 up 3 lbs from 201 on 03/16- may need to give additional lasix , will monitorlas ix 40 mg dailymonit or weights and s/s of heart failure2+ edema noted to lower ankles Chronic re spiratory failure 22444957 J96.10 O2 dependento xygen at 2 liters via [place] fluticason e propion-sa lmeterol 500-50 mcg 1 inhalation bidspiriva 18 mcg 1 inhalation qdalbutero l neb 2.5 mg/3 ml q 4 hrs prnduo neb qidalbuter ol hfa 90 mcg 2 puffs q 4 hrs prnmonitor respirator y symptoms as outpt. Paroxysmal atrial fibrillation 096325764 I48.0 eliquis 5 mg bidtoprol 50 mg dailymonit or as outpt [id number] YUNG CALVILLO [address] [phone] 03/25/2023 11:40:05 03/27/2023 15:02:29 Closed fracture of hip 341368879 S72.001A right hip with minimal swelling, no s/sx of infection. anisa removed 02/28/11tra madol 50 mg q6hr prn Dizziness 508962660 R42 meclizine 12.5 mg bid prnmonitor as outpt Essential hypertension 95445808 I10 stablelasi x 40 mg dailymonit or b/p and labs as outpt. Congestive heart failure 96566563 I50.89 lasix 40 mg dailymonit or weights and s/s of heart failure1-2 + edema noted to lower ankles Chronic re spiratory failure 32501281 J96.10 supplement al O2 at 2 liters via [place] fluticason e propion-sa lmeterol 500-50 mcg 1 inhalation bidspiriva 18 mcg 1 inhalation qdalbutero l neb 2.5 mg/3 ml q 4 hrs prnduo neb qidalbuter ol hfa 90 mcg 2 puffs q 4 hrs prnmonitor respirator y symptoms as outpt. Paroxysmal atrial fibrillation 724929643 I48.0 eliquis 5 mg bidtoprol 50 mg dailymonit or as outpt [id number] YUNG CALVILLO [address] [phone] 04/01/2023 07:59:04 04/04/2023 13:27:21 Closed fracture of hip 300931190 S72.001A right hip with minimal swelling, no s/sx of infection. anisa removed 02/28/11tra madol 50 mg q6hr prn Congestive heart failure 10172202 I50.89 lasix 40 mg dailymonit or weights and s/s of heart failure1-2 + edema noted to lower anklesenco uraged legs elevations and oksana bandages to bilateral lower extremitie s. Falls 961317521 R29.6 PT/OT prnfall precaution sfrequent safety checks [id number] YUNG CALVILLO [address] [phone] 5 04/04/2023 14:04:47 04/08/2023 12:33:49 Closed fracture of hip 177102862 S72.001A s/p fall 02/10 with right hip repair.tra madol 50 mg q6hr prnpatient stays in bed, refuses OOB per nursing staff. Congestive heart failure 67710285 I50.89 lasix 40 mg dailymonit or weights and s/s of heart failure1-2 + edema noted to lower anklesenco uraged legs elevations and oksana bandages to bilateral lower extremitie s. Falls 519411703 R29.6 fall precaution sfrequent safety checks [id number] YUNG CALVILLO [address] [phone] 04/10/2023 08:45:25 04/11/2023 18:26:36 Closed fracture of hip 098333593 S72.001A s/p fall 02/10 with right hip repair.tra madol 50 mg q6hr prnpatient stays in bed, refuses OOB per nursing staff.04/09: patient got OOB yesterday per her request. Congestive heart failure 81306540 I50.89 lasix 40 mg dailymonit or weights and s/s of heart failure1-2 + edema noted to lower anklesenco uraged legs elevations and oksana bandages to bilateral lower extremitie s. Falls 647704504 R29.6 fall precaution sfrequent safety checks [id number] Verna Barney MD [address] [place] [address] 04/12/2023 18:36:04 04/16/2023 11:21:31 Closed fracture of hip 070181414 S72.041D Has recovered from fx, but mobility is still an issue.Will have lots of help at home, but not overnight. Will need to be monitored closely outpt for safety.No further f/u with ortho, unless needed. Congestive heart failure 74950525 I50.89 Continues at baseline.C ontinue meds as above.Urmila tor resp. status, fluid status, wts and labs. Falls 791910794 R29.6 Continue fall precaution s.Monitor for safety. Dizziness 177087146 R42 No c/o todayConti nue meclizine 25 mg TIDMonitor sxs Nausea 120745239 R11.0 Seems better per pt.Continu e Zofran 8 mg q 12 hrs prn.Monito r Essential hypertension 48211389 I10 Good control on lasix 40 mg qd and metoprolol 50 mg qd.Monitor BP and labs. Coronary arteriosclerosis 84170575 I25.10 No current sxs.Contin ue meds as above and NTG 0.4 mg SL q 5 minutes x3 prn, atorvastat in 80 mg qd, ezetimibe 10 mg qd and ASA 81 mg qdMonitor sxs and vital.F/U with cardio prn. Diabetes mellitus 162684 09 E11.9 In excellent control since here.Tracy nue semaglutid e 3 mg sq weekly.Poli l d/c SSI and monitor sugars prn. Chronic re spiratory failure 20106834 J96.11 Continues at baseline.C ontinue supplement al O2 at 1-2 liters by [place] to maintain sats 90-94%Duon ebs qid prn, Advair 500/50 mcg BID, spiriva 18 mcg qd, albuterol nebs q 6 hrs prn, and albuterol HFA 90 mcg 2 puffs q 4 hrs prn.Monito r resp status. Paroxysmal atrial fibrillation 603271479 I48.0 Rate in good control on meds as above.Cont inue eliquis 5 mg BID for AC.Monitor HR and bleeding risk. Anemia 845160078 D50.8 With minimal drop post-op.Co ntinue FeSO4 325 mg qd with vitamin C 500 mg BID, thiamine 100 mg qd and vitamin B12 1000 mcg q monthMonit or labs. Fibromyalgia 580560893 M 79.7 Continue duloxetine 30 mg qdMonitor sxs. Gastroesop hageal reflux disease without esophagitis 898299377 K21.9 No current sxs.Contin ue omeprazole 20 mg qd and zofran 8 mg q 12 hrs prnMonitor for sxs Hypothyroidism 27451530 E03.8 Last TSH 4.82 in 11/2022 with nl FT4.Contin ue levothyrox ine 100 mcg qdMonitor labs prn Mixed hyperlipidemia 267 822641 E78.2 Continue atorvastat in 80 mg qd and ezetimibe 10 mg qdMonitor labs as outpt. Obstructiv e sleep apnea syndrome 43266298 G47.33 Intolerant of cpap/bipap Continue supplement al O2 as above.Urmila tor sats. Vitamin D deficiency 347 35250 E55.9 Continue vitamin D3 1000 IU qdMonitor labs as outpt. Aneurysm o f middle cerebral artery 007678125 I67.1 Hx of 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Saw neurosurg several times, imaging showed stable size.Decis ion for conservati ve tx due to other medical problems.W ould embolize only if sxs of severe [place]. Irritable bowel syndrome with diarrhea 045784855 K58.0 Continue dicyclomin e 10 mg qid prnMonitor bowel habits. [id number] YUNG CALVILLO [address] [address] 04/17/2023 07:50:06 04/23/2023 10:23:47 Closed fracture of hip 109913915 S72.001A s/p fall 02/10 with right hip repair.tra madol 50 mg q6hr prnpatient stays in bed, refuses OOB per nursing staff.04/09: patient got OOB yesterday per her request. Congestive heart failure 08558498 I50.89 lasix 40 mg dailymonit or weights and s/s of heart failure1-2 + edema noted to lower anklesenco uraged legs elevations and oksana bandages to bilateral lower extremitie s. Falls 570075208 R29.6 fall precaution sfrequent safety checks Essential hypertension 09944166 I10 stablelasi x 40 mg dailymonit or b/p and labs as outpt. Diabetes mellitus 817080 09 E11.9 stable readings under 150carb control dietsemagl utide 3 mg sq weeklymoni tor for s/s of hypo/hyper glycemiamo nitor A1c [id number] RALPH RIDER [address] [phone] 5 04/24/2023 10:07:25 04/26/2023 13:02:59 Closed fracture of hip 020131701 S72.001A s/p fall 02/10 with right hip repair.tra madol 50 mg q6hr prnpatient stays in bed, refuses OOB per nursing staff.04/09: patient got OOB yesterday per her request. Congestive heart failure 24635319 I50.89 lasix 40 mg dailyweigh t stablemoni tor weights and s/s of heart failuretra ce edemaencou raged legs elevations and oksana bandages to bilateral lower extremitie s. Falls 505408851 R29.6 fall precaution sfrequent safety checks Essential hypertension 12887106 I10 stablelasi x 40 mg dailymonit or b/p and labs as outpt. Diabetes mellitus 665369 09 E11.9 stable readings under 150carb control dietsemagl utide 3 mg sq weeklymoni tor for s/s of hypo/hyper glycemiamo nitor A1c [id number] RALPH RIDER [address] [address] 05/01/2023 09:21:18 05/03/2023 14:11:33 Closed fracture of hip 440206701 S72.001A s/p fall 02/10 with right hip repair.tra madol 50 mg q6hr prnpatient stays in bed, refuses OOB per nursing staff.04/09: patient got OOB yesterday per her request. Congestive heart failure 39241665 I50.89 lasix 40 mg dailyweigh t stablemoni tor weights and s/s of heart failuretra ce edemaencou raged legs elevations and oksana bandages to bilateral lower extremitie s. Falls 999017044 R29.6 fall precaution sfrequent safety checks Essential hypertension 95904712 I10 stablelasi x 40 mg dailymonit or b/p and labs as outpt. Diabetes mellitus 909846 09 E11.9 stable readings under 150carb control dietsemagl utide 3 mg sq weeklymoni tor for s/s of hypo/hyper glycemiamo nitor A1c [id number] RALPH RIDER [address] [address] 05/08/2023 11:17:04 05/13/2023 16:10:41 Closed fracture of hip 817059013 S72.001A s/p fall 02/10 with right hip repair.tra madol 50 mg q6hr Congestive heart failure 29625192 I50.89 lasix 40 mg dailyweigh t stablemoni tor weights and s/s of heart failuretra ce edemaencou raged legs elevations and oksana bandages to bilateral lower extremitie s. Falls 161053966 R29.6 fall precaution sfrequent safety checks Essential hypertension 44760080 I10 stablelasi x 40 mg dailymonit or b/p and labs as outpt. Diabetes mellitus 478981 E11.9 stable readings under 150carb control dietsemagl utide 3 mg sq weeklymoni tor for s/s of hypo/hyper glycemiamo nitor A1c [id number] RALPH RIDER [address] [address] 05/15/2023 08:19:24 05/20/2023 15:40:14 Closed fracture of hip 797362168 S72.001A s/p fall 02/10 with right hip repair.tra madol 50 mg q6hr Congestive heart failure 22780207 I50.89 lasix 40 mg dailyweigh t stablemoni tor weights and s/s of heart failuretra ce edemaencou raged legs elevations and oksana bandages to bilateral lower extremitie s. Falls 354998542 R29.6 fall precaution sfrequent safety checks Essential hypertension 25509944 I10 stablelasi x 40 mg dailymonit or b/p and labs as outpt. Diabetes mellitus 555928 09 E11.9 stable readings under 150carb control dietsemagl utide 3 mg sq weeklymoni tor for s/s of hypo/hyper glycemiamo nitor A1c [id number] YUNG CALVILLO [address] [place] [address] rd [place] [address] 05/17/2023 15:20:25 05/21/2023 12:20:46 Closed fracture of hip 090273652 S72.001A s/p fall 02/10 with right hip repair.tra madol 50 mg q6hr Congestive heart failure 51154377 I50.89 lasix 40 mg dailyweigh t stablemoni tor weights and s/s of heart failuretra ce edemaencou raged legs elevations and oksana bandages to bilateral lower extremitie s. Falls 562265976 R29.6 fall precaution sfrequent safety checks Essential hypertension 80488260 I10 lasix 40 mg daily Diabetes mellitus 870916 09 E11.9 semaglutid e 3 mg sq weeklymoni tor for s/s of hypo/hyper glycemiamo nitor A1c Anemia 097406320 D50.8 Continue FeSO4 325 mg qd with vitamin C 500 mg BID, thiamine 100 mg qd and vitamin B12 1000 mcg q Aneurysm o f middle cerebral artery 870999122 I67.1 Ccarrying dx Chronic re spiratory failure 55107870 J96.11 supplement al O2 at 2 liters via ncfluticas one propion-sa lmeterol 500-50 mcg 1 inhalation bidspiriva 18 mcg 1 inhalation qdalbutero l neb 2.5 mg/3 ml q 4 hrs prnduo neb qidalbuter ol hfa 90 mcg 2 puffs q 4 hrs prn Coronary arteriosclerosis 14461260 I25.10 nitro 0.4 mg SL q 5 minutes [id number] atin 80 mg qdezetimib e 10 mg qdeliquis 5 mg bidASA 81 mg qdmonitor VS, labs Dizziness 252325751 R42 meclizine 12.5 mg bid prnmonitor as outpt Gastroesop hageal reflux disease without esophagitis 104828331 K21.9 dexilant 30 mg qddicyclom ine 10 mg qid prncarafat e 1 gm q hszofran 8 mg q12 hr prn Fibromyalgia 297394576 M 79.7 Continue duloxetine 30 mg qd Gout 96812124 M10.9 carrying dx Hypothyroidism 21118914 E03.8 Continue levothyrox ine 100 mcg qd Irritable bowel syndrome with diarrhea 358350401 K58.0 Continue dicyclomin e 10 mg qid prn Mixed hyperlipidemia 267 123402 E78.2 Continue atorvastat in 80 mg qd and ezetimibe 10 mg qd Nausea 915548226 R11.0 Continue Zofran 8 mg q 12 hrs prn. Obstructiv e sleep apnea syndrome 76388112 G47.33 Intolerant of cpap/bipap Continue supplement al O2 as above. Paroxysmal atrial fibrillation 583667145 I48.0 eliquis 5 mg bidtoprol 50 mg dailymonit or as outpt Vitamin D deficiency 347 05631 E55.9 Continue vitamin D3 1000 IU qdMonitor labs as outpt. 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 needs to have a appt with outpatient [facility] neurosurge ry Health Concerns Section Related Observation LastModified by Organization Detai ls LastModified Time None Recorded Concern Status LastModified by Organization Details LastModified Time None Recorded Advance Directives Directive Y: Payers Insurance Date Sequence Insurance Name Policy Number Policy Palomino Covered Member ID Palomino Member ID Guarantor Name 05/20/2023 1 [employer] - D[facility] ELIGIBLE [facility] S[facility]IC[facility]PLACEMENT/A DVANTAGE - HMO) Carlyjoaquin Tenate [id number] [facility]arly [employer] 04/24/2023 2 MEDICARE B-[place]: [employer] Carly Hotte [id number] [employer] [employer] [facility] Notes Date Note Type Note Provider Name [...] no acute nursing concerns. YUNG CALVILLO [address] [facility], [address], [place], [address], [facility] 04/24/2023 13:13:25 05/01/2023 text/html ROS as noted in the [facility] 82 yr old female with PMH includes [...] no acute nursing concerns. YUNG CALVILLO [address] [facility], [address], [place], [address], [employer] 05/01/2023 15:45:39 05/08/2023 text/html ROS as noted in the [facility] 82 yr old female with PMH includes [...] no acute nursing concerns. YUNG CALVILLO [address] [facility], [address], [place], [address], [facility] 05/09/2023 09:20:31 05/15/2023 text/html ROS as noted in the [facility] 82 yr old female with PMH includes [...] for acute rounding visit. YUNG CALVILLO [address] [facility], [address], [place], [address], [facility] 05/16/2023 00:18:01 05/17/2023 text/html ROS as noted in the [facility] 82 yr old female with PMH includes [...] PT/OT and VNA services. YUNG CALVILLO [address] [facility], [address], [place], [address], [facility] 05/17/2023 15:28:55 OBGyn Episode No OBEpisode recorded.
[2024-12-15 21:25] LABS: Appearance Urine Cloudy; Glucose Urine UA Negative (Negative); PH 5.5 (5.0-9.0); Specific Gravity - Urine 1.020 (1.005-1.025); UMIC TRIGGER UACC YES
[2024-12-15 21:43] LABS: UACC Culture Trigger YES
== END 2024-12-15 18:27 | disposition home or self-care (01) ==
LOC: HO.LNP 18:26
PROVIDERS: Visit Provider Internal Medicine
DX: R33.8 Other retention of urine (principal)
CPT/HCPCS: 81001; 81003; 87086

== ENCOUNTER 2024-12-24 10:56 | Emergency (ER) | payer OTHER, SELFPAY ==
[2024-12-24] VITALS (9 sets, daily range): BP systolic 112–176; BP diastolic 64–96; PULSE 73–117; RESP 18–23; TEMP 36.8; O2SAT 92–100; BMI 47.2
--- NOTE | ~2024-12-24 | CT_ITS ---
EXAMINATION: CT ANGIOGRAM ABDOMEN AND PELVIS CLINICAL INFORMATION: Mesenteric ischemia rule out. COMPARISON: November 26, 2024 TECHNIQUE: Multiple axial images were obtained through the abdomen and pelvis following the administration of 80 mL of Omnipaque 350 intravenous contrast during the arterial phase. Images were reviewed on a dedicated 3-D workstation. Maximum intensity projections. This CT examination was performed using dose optimization techniques as appropriate, variously including the following: *Automated exposure control *Adjustment of mA and/or kV according to patient size (this includes techniques or standardized protocols for targeted exams where dose is matched to indication/reason for exam; i.e. extremities or head) *Use of iterative reconstruction technique. DLP: 1279 mGy-cm FINDINGS: Descending thoracic aorta has a maximum diameter of 29 mm with irregular shaped mixed plaques and likely ulcerations. No IV contrast extravasation. Abdominal aorta: Suprarenal segment: 20 x 20 mm in maximum dimension with irregular shaped mixed plaques. No IV contrast extravasation. Infrarenal segment: 39 x 34 mm in maximal diameter with an irregularly-shaped mixed plaque. There is a 34 mm in maximal length IV contrast enhanced abnormality at the 8-9:00 position with a linear attenuation. No IV contrast extravasation. No periaortic edema pattern. Distal abdominal aorta segment: 24 x 30 mm. Mixed plaques throughout the wall. No IV contrast dilatation. No periaortic edema pattern. Right common iliac artery diameter is 19 mm with calcified plaque. Right internal iliac artery diameter is 12 mm with calcified plaque. Right external iliac artery diameter is 8 mm with calcified plaque. Left common iliac artery diameter is 12 mm in maximal diameter with calcified plaque. Left internal iliac artery diameter is 7 mm. Left external iliac artery diameter is 8 mm. Celiac trunk: Proximal segment diameter is 3 mm. Mid to distal segmental diameter is 7 mm. Normal patency. Calcified plaque in the proximal segment. Superior mesenteric artery: Proximal segment measures 3 mm. Mid to distal segment measures 6 mm. Normal patency. Inferior mesenteric artery is patent. Ancillary findings: Liver measures 13 cm with a nodular surface. Spleen measures 10 cm. Common bile duct measures 18 mm in maximal diameter with an abrupt vessel shape at the junction with the duodenum. There is a hiatal hernia and vascular clips in the gastroesophageal junction likely from the Hui application. Bilateral renal cysts. Numerous diverticula, left hemicolon. Diastases abdominal rectus muscles in the periumbilical and suprapubic umbilical region. Metallic transfemoral neck and intramedullary higinio, right femur. Scoliosis and multilevel spondylosis, thoracolumbar spine. CT/CT angio abdomen pelvis IMPRESSION: 39 x 34 mm, infrarenal to distal, nonruptured abdominal aortic aneurysm with ulcerated plaque versus pseudoaneurysm. Aneurysm, common iliac arteries. High degree stenosis at the proximal celiac trunk and superior mesenteric artery. Cirrhosis. Diverticular disease. No ascites. . Fleischner guidelines were followed. Electronically signed by: Zack Mcelroy MD 12/24/2024 02:38 PM [facility]
--- NOTE | 2024-12-24 12:00 | ED.GENADULT ---
HPI - General Adult General Chief complaint: Abdominal Pain Stated complaint: INSIDES FEELS LIKE THEIR CHURNING Time Seen by Provider: 12/24/24 12:00 Source: patient Mode of arrival: ambulatory Limitations: no limitations History of Present Illness ED Provider: Dr. De Jesus HPI narrative: This is a 84-year-old female history of COPD clemons respiratory failure on 2 L nasal cannula, right hip fracture , diabetes, hyperlipidemia, hypertension presented hospital today for evaluation of gastric discomfort. Patient stated it is diffusely in her abdomen. She does have history of IBS in the past. Patient has been very nauseous and weak. She stated this has been going on for 4 days now. She is having trouble urinating as well. Denies any fever. Does complain of dysuria Related Data Home Medications ?Medication ?Instructions ?Recorded ?Confirmed cholecalciferol (vitamin D3) 25 25 mcg PO DAILY 12/01/19 07/14/23 mcg (1,000 unit) capsule (Vitamin D3) dicyclomine 10 mg capsule 10 mg PO Q6H PRN Abdominal Pain 12/01/19 12/24/24 tramadol 50 mg tablet 50 mg PO Q6H PRN Pain 06/21/23 07/14/23 aspirin 81 mg tablet,delayed 81 mg PO DAILY 07/08/23 07/14/23 release acetaminophen 650 mg 650 mg PO Q8H PRN Pain 07/14/23 07/14/23 tablet,extended release ipratropium 0.5 mg-albuterol 3 mg 3 ml inhalation QID PRN Shortness 07/14/23 07/14/23 (2.5 mg base)/3 mL nebulization Of Breath Or Wheezing soln fluticasone 500 mcg-salmeterol 50 1 inh inhalation BID 11/27/24 mcg/dose blistr powdr for inhalation (Wixela Inhub) Previous Rx's ?Medication ?Instructions ?Recorded stair lift and ramp #1 ea 08/31/20 blood-glucose meter (OneTouch #1 ea 09/14/20 Ultra2 Meter kit) blood-glucose meter (OneTouch #1 ea 09/16/20 UltraMini kit) Wheelchair Ramp #1 ea 10/06/20 Transfer Bench #1 ea 11/01/20 blood pressure monitor (Blood #1 ea 11/03/20 Pressure Kit) Nebulizer supplies #3 ea 03/22/21 Semi Electric Hospital Bed #1 ea 03/22/21 diagnosis I50.32 Air mattress #1 ea 11/27/21 nitroglycerin 0.4 mg sublingual 0.4 mg sublingual Q5M PRN for 02/22/22 tablet angina 90 days #25 tabs FOUR WHEEL SCOOTER #1 ea 06/08/22 pads for bedsores 7 7/8 X 11 3/4 #50 ea 07/10/22 pressure release mattress #1 ea 11/13/22 blood sugar diagnostic (ClinicIQTouch #100 strips 01/30/23 Ultra Test strips) lancets #100 ea 02/09/23 compress.stocking,knee,reg,lrg #12 ea 07/01/23 lancets 33 gauge (ClinicIQTouch Delica #100 ea 07/01/23 Plus Lancet) loperamide 2 mg capsule (Imodium 2 mg PO Q6H PRN loose stool #14 08/27/23 A-D) caps carbamide peroxide 6.5 % ear drops 10 drp otic (ears) DAILY 4 days 08/30/23 (Debrox) #15 mL polymyxin B sulfate 10,000 1 drp ophthalmic (eye) QID 7 days 09/03/23 unit-trimethoprim 1 mg/mL eye drops #10 mL ondansetron 4 mg disintegrating 4 mg PO Q8H PRN nausea and 09/10/23 tablet vomiting #20 tabs thiamine HCl (vitamin B1) 100 mg 100 mg PO DAILY #90 tabs 09/24/23 tablet furosemide 40 mg tablet 20 - 40 mg (0.5 - 1 x 40 mg) PO 10/05/23 DAILY #90 tabs POWER WHEELCHAIR #1 ea 10/08/23 ketoconazole 2 % shampoo 1 appl topical 2XW #120 mL 11/19/23 nystatin 100,000 unit/gram topical 1 appl topical TID #30 grams 11/19/23 cream gabapentin 100 mg capsule 100 mg PO BEDTIME #90 caps 12/10/23 meclizine 12.5 mg tablet 12.5 mg PO BID PRN for motion 01/06/24 sickness #60 tabs UNDERPADS Disposable BED #3 ea 01/27/24 pads overnight- large #2 ea 01/27/24 white petrolatum 71.3 % topical 1 appl topical BID-TID PRN dry 01/27/24 ointment (Desitin Multi-Purpose) skin #99 grams dexlansoprazole 30 mg 30 mg PO DAILY #90 caps 01/31/24 capsule,biphase delayed release ezetimibe 10 mg tablet 10 mg PO DAILY #90 tabs 01/31/24 levothyroxine 100 mcg tablet 100 mcg PO DAILY@0600 #90 tabs 01/31/24 cyanocobalamin (vitamin B-12) 1,000 mcg IM Q4W 90 days #4 mL 02/26/24 1,000 mcg/mL injection solution Tarisa external catheter #1 ea 03/02/24 cetirizine 10 mg tablet 10 mg PO DAILY PRN for allergies 04/26/24 #90 tabs nitrofurantoin 100 mg PO Q12H 7 days #14 caps 04/30/24 monohydrate/macrocrystals 100 mg capsule (Macrobid) lactobacillus combination no.9 4 4,000 mmu cells PO DAILY #30 caps 05/01/24 billion cell capsule (Adult 50 Plus Probiotic) albuterol sulfate 90 mcg/actuation 2 puff PO Q4H PRN for respiratory 05/08/24 aerosol inhaler distress #8.5 ea syringe with needle, safety 3 mL #100 ea 05/27/24 25 gauge x 5/8 (BD Integra Syringe) ascorbic acid (vitamin C) 500 mg 500 mg PO BID #180 tabs 06/20/24 tablet ondansetron HCl 8 mg tablet 8 mg PO Q12H PRN nausea and 06/20/24 vomiting #30 tabs albuterol sulfate 2.5 mg/3 mL 2.5 mg (3 mL) inhalation Q6H PRN 07/06/24 (0.083 %) solution for nebulization for wheezing #180 mL atorvastatin 80 mg tablet 80 mg PO BEDTIME #90 tabs 08/03/24 clotrimazole 1 % topical cream 1 appl topical BID PRN Rash #45 08/19/24 grams dulaglutide 3 mg/0.5 mL 3 mg (0.5 mL) subcut SA #2 mL 09/07/24 subcutaneous pen injector (Trulicity) apixaban 5 mg tablet (Eliquis) 5 mg PO BID 90 days #180 tabs 09/20/24 replacement mattress for her #1 ea 09/24/24 hospital bed Half bed rail for hospital bed #2 ea 09/29/24 diltiazem HCl 120 mg 120 mg PO DAILY #90 caps 10/19/24 capsule,extended release 24 hr (Cardizem CD) duloxetine 30 mg capsule,delayed See Rx Instructions .Route 10/22/24 release .COMPLEX #90 caps lsssexip-oxcrjrxmg-nvcajwbfe 3.5 4 drp otic (ear) right Q8H 5 days 10/29/24 mg/mL-10,000 unit/mL-1 % ear #10 mL solution metoprolol succinate 100 mg 100 mg PO DAILY #30 tabs 11/05/24 tablet,extended release 24 hr hospital bed #1 ea 12/04/24 cephalexin 500 mg capsule 500 mg PO Q6H 7 days #28 caps 12/24/24 Reclining wheelchair #1 ea 12/25/24 Allergies Allergy/AdvReac Type Severity Reaction Status Date / Time morphine (MORPHINE) Allergy Unknown RASH Verified 12/24/24 11:15 pregabalin (From [facility]ICA) Allergy Unknown NAUSEA, Verified 12/24/24 11:15 felt high on drugs Review of Systems Review of Systems: Pertinent review of systems as mentioned in HPI. All other system otherwise negative. 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 Low back pain Respiratory failure with hypoxia and hypercapnia Lower extremity weakness Nasal congestion Otitis externa Coronary artery disease Restrictive lung disease Diarrhea History of spinal stenosis Fibromyalgia Obesity (BMI 30-39.9) Carpal tunnel syndrome Abdominal aortic aneurysm Hypothyroid Obstructive sleep apnea Congestive heart failure Pernicious anemia Paroxysmal atrial fibrillation DVT (deep venous thrombosis) Diverticulitis GERD (gastroesophageal reflux disease) HTN (hypertension) Clostridium difficile colitis CAD (coronary artery disease) Hypercholesterolemia Surgical History (Updated 11/26/23 @ 12:52 by DEVON Monteiro) History of hip surgery S/P BREANN-BSO (total abdominal hysterectomy and bilateral salpingo-oophorectomy) History of arthroplasty of left shoulder Hx of cholecystectomy H/O angioplasty Hx of appendectomy H/O cardiac catheterization Family History Family History Father Hypertension CVD (cardiovascular disease) Mother Colon cancer Sister Leukemia Sister Colon cancer Son Lung cancer Colon polyps Social History Social History Household Members: None Household Members Other:: self Housing: Apartment Do you presently have visiting nurse or other home services: Yes (Nurses to prep meds. [employer] everyday 3x a day) Unable to assess alcohol history related to: Unknown Alcohol intake: never Patient Tobacco Use Status: Former Tobacco user Tobacco use type: Cigarette Years Smoked: stopped 2009 e-Cigarette/Vaping Use: Never Used Second Hand Smoke Exposure: Yes Use of substances other than those prescribed or required for medical reasons: Unknown Advance Directives: Yes Advance Directives on File: Yes Advance Directives Date on File: 10/10/21 service: No Current occupational status: retired Current occupational exposures/hazards: No Cognitive needs: No Hearing needs: No Vision needs: Yes Physical Exam ED Exam Exam: General: Appears dry and nauseous Head: Normacephalic, atraumatic ENT: oral mucosa dry neck supple, no tracheal deviation Cardiovascular: Tachycardic rate, regular rhythm, no murmurs, rubbing, gallops Respiratory: CTAB, no wheeze, rales, rhonchi Gastrointestinal: diffuse abdominal tenderness. There was distention on exam. Neurological: Awake and alert, no facial droop noted Skin: Warm and dry Psychiatric: Appropriate mood and thoughts Vital Signs: Vital Signs - 24 hr 12/24/24 16:30 12/24/24 19:44 12/24/24 21:51 Temperature Pulse Rate 86 82 82 Respiratory Rate 20 20 20 Blood Pressure 112/67 131/64 112/65 Pulse Oximetry 100 94 Oxygen Delivery Method Nasal Cannula Nasal Cannula Nasal Cannula Oxygen Flow Rate 2 2 3 12/24/24 23:49 12/25/24 03:15 12/25/24 06:00 Temperature 97.1 F 97 F Pulse Rate 73 76 80 Respiratory Rate 18 18 18 Blood Pressure 128/73 121/67 138/73 Pulse Oximetry 96 96 97 Oxygen Delivery Method Nasal Cannula Nasal Cannula Nasal Cannula Oxygen Flow Rate 3 3 3 12/25/24 11:07 12/25/24 13:18 12/25/24 14:17 Temperature 97.5 F Pulse Rate 93 93 93 Respiratory Rate 18 Blood Pressure 124/54 L 124/54 L 124/54 L Pulse Oximetry 98 Oxygen Delivery Method Nasal Cannula Oxygen Flow Rate 2 BMI result Body Mass Index 47.2 Course Reevaluation(s) Reevaluation #1: VENECIA Christy Physician observation continued. Uneventful night. Vital signs stable. No complaints from nursing overnight. Med reconciliation reviewed and done. Pending disposition. Will continue to monitor. Reevaluation #2: Patient will discharge home with resumption of VNA via BLS at 17:00 she is declining short-term rehab. Time: 16:19 Medications Administered Generic Name Dose Route Start Last Admin Trade Name Freq PRN Reason Stop Dose Admin Acetaminophen 975 mg 12/24/24 22:00 12/25/24 09:51 Acetaminophen 325 Mg Tablet PO 975 mg Q8H DANIEL Administration Cephalexin HCl 500 mg 12/25/24 09:00 12/25/24 14:29 Cephalexin 500 Mg Capsule PO 500 mg Q6H DANIEL Administration Diltiazem HCl 120 mg 12/25/24 12:00 12/25/24 13:18 Diltiazem Hcl Cd 120 Mg Cap.Er.Deg PO 120 mg DAILY DANIEL Administration Protocol Duloxetine HCl 30 mg 12/25/24 12:00 12/25/24 13:18 Duloxetine Hcl 30 Mg Capsule.Dr PO 30 mg DAILY DANIEL Administration Ezetimibe 10 mg 12/25/24 09:00 12/25/24 14:17 Ezetimibe 10 Mg Tablet PO Not Given DAILY DANIEL Metoprolol Succinate 100 mg 12/25/24 09:00 12/25/24 14:17 Metoprolol Succinate Er 100 Mg Tab.Er.24h PO Not Given DAILY DANIEL Protocol Discontinued Medications Generic Name Dose Route Start Last Admin Trade Name Freq PRN Reason Stop Dose Admin Dicyclomine HCl 10 mg 12/25/24 12:13 12/25/24 13:19 Dicyclomine Hcl 10 Mg Capsule PO 12/25/24 12:14 10 mg ONCE ONE Administration Sodium Chloride 1,000 mls @ 500 mls/hr 12/24/24 12:15 12/24/24 14:34 Ns IV 12/24/24 14:14 Infused .Q2H DANIEL Infusion Ceftriaxone Sodium 2 gm/ 50 mls @ 100 mls/hr 12/24/24 14:38 12/24/24 16:26 Sodium Chloride IV 12/24/24 15:07 Infused ONCE ONE Infusion Iohexol 100 ml 12/24/24 13:49 12/24/24 13:50 Iohexol 350 Mg/Ml 100 Ml Infus..Btl IV 12/24/24 13:50 80 ml ONCE ONE Administration Morphine Sulfate 2 mg 12/24/24 12:16 12/24/24 12:34 Morphine Sulfate 4 Mg/Ml Cartridge IVPUSH 12/24/24 12:17 2 mg ONCE ONE Administration Protocol Ondansetron HCl 4 mg 12/24/24 12:11 12/24/24 12:34 Ondansetron Hcl 4 Mg/2 Ml Vial IVPUSH 12/24/24 12:12 4 mg ONCE ONE Administration Phenazopyridine HCl 200 mg 12/24/24 17:52 12/24/24 18:18 Phenazopyridine Hcl 200 Mg Tablet PO 12/24/24 17:53 200 mg ONCE ONE Administration Medical Decision Making Medical Decision Making MDM Narrative: 84-year-old female history of clemons respiratory failure on 2 L nasal cannula, COPD, diabetes, hypertension, hypothyroidism, paroxysmal AFib on Eliquis presented hospital today for evaluation of nausea vomiting diffuse abdominal discomfort. Patient's is noted to have AFib. Patient does have abdominal pain with nausea and vomiting. We will obtain a CTA abdomen and pelvis to rule out mesenteric ischemia. We will plan to obtain abdominal lab work the patient we will obtain a UA. We will plan to bladder scan the patient for signs of possible urinary retention as well. This may be colitis in nature as well. IV fluid be initiated. With the patient. Zofran will be initiated for the patient for nausea. We will plan to give patient a dose of IV morphine. 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 Discussed this with Dr. Rivera from vascular surgery. Who recommends outpatient follow up. Patient's UA did show signs of UTI. IV ceftriaxone was given to the patient. Patient is currently lives at home and does have a set come visit and help with her medications. She has no support other than aides that come visit her. I did consult case management for evaluation. Patient at baseline is bed bound. She stated that she is linked up with physical therapy to attempt to get her stronger. Case management has evaluated the patient does time. Patient is linked with 2 VNA services. Due to the patient's comorbidity and chronic illnesses. We will plan to observe the patient here overnight. I did attempt to admit the patient to the hospitalist service. According to hospitalist service, they do not think patient meets admission criteria at this time. The patient will be held in the ED overnight. Anticipate discharge in the morning. Keflex will be sent off for antibiotic coverage. She does not have any signs of sepsis no leukocytosis no elevated lactic acid. She stated her pain has improved however she is still having some pain over her bladder and radiates up to her right flank. Differential Diagnosis Differential Diagnoses: The differential diagnosis associated with the presentation includes Colitis, gastroenteritis, gastritis, mesenteric ischemia, UTI, urinary retention Consult Healthcare Provider Management of the patient was discussed with: Hospitalist (Dr. Moss) and Inventory Control Manager (Dr. Rivera) Lab Data MDM Lab Attestation statement: I reviewed the patient's lab results. 12/24/24 12:00 12/24/24 12:56 Labs: Lab Results 12/24/24 12/24/24 12/24/24 Range/Units 12:00 12:56 14:22 WBC 7.1 (4.8-10.8) X10*3/uL RBC 4.59 (4.20-5.50) X10*6/uL Hgb 12.8 (12.0-16.0) g/dl Hct 40.2 (37.0-47.0) % MCV 87.6 (80.0-98.0) fL MCH 27.9 (27.0-33.0) pg MCHC 31.8 (31.0-35.0) g/dl RDW 14.1 (11.0-16.0) % Plt Count 255 (160-400) X10*3/uL MPV 9.6 (9.4-12.3) fL Immature Gran % (Auto) 0.3 (0.0-0.4) % Neut % (Auto) 64.0 (45-73) % Lymph % (Auto) 26.4 (20-40) % [place] % (Auto) 8.3 (2-11) % Eos % (Auto) 0.6 (0-4) % Baso % (Auto) 0.4 (0-2) % Lymph # (Auto) 1.9 (1.2-4.9) X10*3/uL [place] # (Auto) 0.6 (0.1-1.2) X10*3/uL Eos # (Auto) 0.0 (0.0-0.4) X10*3/uL Baso # (Auto) 0.0 (0.0-0.2) X10*3/uL Abs Immat Gran (auto) 0.02 (0.00-0.03) X10*3/uL Absolute Neuts (auto) 4.5 (2.0-8.3) x10*3/uL Absolute Nucleated RBC 0.000 (0.0-0.012) X10*3/uL Nucleated RBC % (auto) 0.0 (0.0-0.2) /100WBC Sodium 142 (135-145) mmol/L Potassium 4.4 D (3.3-5.1) mmol/L Chloride 106 (96-108) mmol/L Carbon Dioxide 28 (22-29) mmol/L Anion Gap 12 (12-20) BUN 14 (9-16) mg/dL Creatinine 0.68 (0.5-1.4) mg/dL Estim Creat Clear Calc 71.9 Estimated GFR > 60 Random Glucose 99 (60-115) mg/dL Lactic Acid (0.5-2.0) mmol/L Calcium 9.3 (8.4-10.2) mg/dL Total Bilirubin 0.6 (0.0-1.0) mg/dL AST 33 H (5-31) U/L ALT 20 (0-31) U/L Alkaline Phosphatase 187 H (39-117) U/L Total Protein 7.3 (6.5-8.0) g/dL Albumin 3.7 (3.5-5.0) g/dL Lipase 12 (8-78) U/L Urine Color Yellow Urine Appearance Cloudy Urine pH 6.0 (5.0-9.0) Ur Specific [place] >= 1.030 H (1.005-1.025) Urine Protein 30 (1+) H (Neg-Trace) mg/dL Urine Glucose (UA) Negative (Negative) mg/dL Urine Ketones Negative (Negative) mg/dL Urine Blood Moderate (2+) H (Negative) Urine Nitrite Positive H (Negative) Ur Leukocyte Esterase Moderate (2+) H (Negative) Urine RBC 11-20 H (0-2) /HPF Urine WBC >50 H (0-5) /HPF Ur Squamous Epith Cells 0-2 (0-2) /HPF Urine Bacteria 4+ (None Seen) Hyaline Casts 3-5 (0-2) /LPF 12/24/24 Range/Units 15:37 WBC (4.8-10.8) X10*3/uL RBC (4.20-5.50) X10*6/uL Hgb (12.0-16.0) g/dl Hct (37.0-47.0) % MCV (80.0-98.0) fL MCH (27.0-33.0) pg MCHC (31.0-35.0) g/dl RDW (11.0-16.0) % Plt Count (160-400) X10*3/uL MPV (9.4-12.3) fL Immature Gran % (Auto) (0.0-0.4) % Neut % (Auto) (45-73) % Lymph % (Auto) (20-40) % [place] % (Auto) (2-11) % Eos % (Auto) (0-4) % Baso % (Auto) (0-2) % Lymph # (Auto) (1.2-4.9) X10*3/uL [place] # (Auto) (0.1-1.2) X10*3/uL Eos # (Auto) (0.0-0.4) X10*3/uL Baso # (Auto) (0.0-0.2) X10*3/uL Abs Immat Gran (auto) (0.00-0.03) X10*3/uL Absolute Neuts (auto) (2.0-8.3) x10*3/uL Absolute Nucleated RBC (0.0-0.012) X10*3/uL Nucleated RBC % (auto) (0.0-0.2) /100WBC Sodium (135-145) mmol/L Potassium (3.3-5.1) mmol/L Chloride (96-108) mmol/L Carbon Dioxide (22-29) mmol/L Anion Gap (12-20) BUN (9-16) mg/dL Creatinine (0.5-1.4) mg/dL Estim Creat Clear Calc Estimated GFR Random Glucose (60-115) mg/dL Lactic Acid 1.0 (0.5-2.0) mmol/L Calcium (8.4-10.2) mg/dL Total Bilirubin (0.0-1.0) mg/dL AST (5-31) U/L ALT (0-31) U/L Alkaline Phosphatase (39-117) U/L Total Protein (6.5-8.0) g/dL Albumin (3.5-5.0) g/dL Lipase (8-78) U/L Urine Color Urine Appearance Urine pH (5.0-9.0) Ur Specific [place] (1.005-1.025) Urine Protein (Neg-Trace) mg/dL Urine Glucose (UA) (Negative) mg/dL Urine Ketones (Negative) mg/dL Urine Blood (Negative) Urine Nitrite (Negative) Ur Leukocyte Esterase (Negative) Urine RBC (0-2) /HPF Urine WBC (0-5) /HPF Ur Squamous Epith Cells (0-2) /HPF Urine Bacteria (None Seen) Hyaline Casts (0-2) /LPF Independent Interpretation I performed an independent interpretation of an: CT Scan Radiology Impression Discussion of test interpretation with radiology: I have reviewed the radiologist's reading. Chronic Conditions Chronic respiratory failure Discharge Plan Discharge Clinical Impression: UTI (urinary tract infection), Celiac artery stenosis Patient Disposition: Home, Self-Care Instructions: Urinary Tract Infection in Women (ED) Additional Instructions: Take your medications as prescribed. If you were prescribed antibiotics today, it is important that you take your medication to their entirety, do not skip any doses, do not finish them early. Follow-up with your primary care provider this week. Return to the emergency department with new or worsening symptoms. Such as fevers, chills, chest pain, shortness of breath, nausea, vomiting, dizziness, headache, vision changes, lethargy In case of emergency call 911 Prescriptions: New cephalexin 500 mg capsule 500 mg PO Q6H 7 Days Qty: 28 0RF No Action (DME) stair lift and ramp See Rx Instructions .Route .MEDSUPPLY Qty: 1 0RF Rx Instructions: As directed (DME) blood-glucose meter [OneTouch Ultra2 Meter] Kit See Rx Instructions .Route Qty: 1 0RF Rx Instructions: As directed (DME) blood-glucose meter [OneTouch UltraMini] Kit See Rx Instructions .Route Qty: 1 0RF Rx Instructions: As directed (DME) Wheelchair Ramp See Rx Instructions .Route .MEDSUPPLY Qty: 1 0RF Rx Instructions: As directed (DME) Transfer Bench Misc See Rx Instructions .Route Qty: 1 0RF Rx Instructions: As directed for bath tub (DME) blood pressure monitor [Blood Pressure Kit] Kit See Rx Instructions .Route Qty: 1 0RF Rx Instructions: As directed (DME) [facility] Bed diagnosis I50.32 See Rx Instructions .Route .MEDSUPPLY Qty: 1 0RF Rx Instructions: As directed, GERMAN 99 (DME) Nebulizer supplies See Rx Instructions .Route .MEDSUPPLY Qty: 3 3RF Rx Instructions: As directed (DME) Air mattress See Rx Instructions .Route .MEDSUPPLY Qty: 1 0RF Rx Instructions: As directed nitroglycerin 0.4 mg tablet, sublingual 0.4 mg sublingual Q5M PRN (Reason: for angina) 90 Days Qty: 25 0RF (DME) FOUR WHEEL SCOOTER See Rx Instructions .Route .MEDSUPPLY Qty: 1 0RF Rx Instructions: As directed (DME) pads for bedsores 7 7/8 X 11 3/4 pad See Rx Instructions .Route Qty: 50 11RF Rx Instructions: As directed (DME) pressure release mattress See Rx Instructions .Route .MEDSUPPLY Qty: 1 0RF Rx Instructions: As directed (DME) OneTouch Ultra Test Strip See Rx Instructions .ROUTE .COMPLEX Qty: 100 3RF Dose Instruction: DIRECTED TEST BLOOD GLUCOSE DAILY Rx Instructions: DIRECTED TEST BLOOD GLUCOSE DAILY (DME) lancets Misc See Rx Instructions .Route Qty: 100 3RF Rx Instructions: As directed test blood glucose daily (DME) lancets [OneTouch Delica Plus Lancet] 33 gauge misc See Rx Instructions .ROUTE .COMPLEX Qty: 100 0RF Dose Instruction: USE TO TEST DAILY Rx Instructions: USE TO TEST DAILY loperamide [Imodium A-D] 2 mg capsule 2 mg PO Q6H PRN (Reason: loose stool) Qty: 14 0RF Debrox 6.5 % drops 10 drp otic (ears) DAILY 4 Days Qty: 15 0RF polymyxin B sulf-trimethoprim 10,000 unit- 1 mg/mL drops 1 drp ophthalmic (eye) QID 7 Days Qty: 10 0RF ondansetron 4 mg tablet,disintegrating 4 mg PO Q8H PRN (Reason: nausea and vomiting) Qty: 20 0RF thiamine HCl (vitamin B1) 100 mg tablet 100 mg PO DAILY Qty: 90 2RF furosemide 40 mg tablet 20 - 40 mg PO DAILY Qty: 90 3RF (DME) POWER WHEELCHAIR See Rx Instructions .Route .MEDSUPPLY Qty: 1 0RF Rx Instructions: As directed ketoconazole 2 % shampoo 1 appl topical 2XW Qty: 120 2RF nystatin 100,000 unit/gram cream 1 appl topical TID Qty: 30 1RF gabapentin 100 mg capsule 100 mg PO BEDTIME Qty: 90 1RF meclizine 12.5 mg tablet 12.5 mg PO BID PRN (Reason: for motion sickness) Qty: 60 5RF (DME) UNDERPADS Disposable BED See Rx Instructions .Route .MEDSUPPLY Qty: 3 11RF Rx Instructions: As directed (DME) pads overnight- large See Rx Instructions .Route .MEDSUPPLY Qty: 2 0RF Rx Instructions: As directed Desitin Multi-Purpose 71.3 % ointment 1 appl topical BID-TID PRN (Reason: dry skin) Qty: 99 1RF ezetimibe 10 mg tablet 10 mg PO DAILY Qty: 90 3RF levothyroxine 100 mcg tablet 100 mcg PO DAILY@0600 Qty: 90 3RF dexlansoprazole 30 mg capsule,biphase delayed releas 30 mg PO DAILY Qty: 90 3RF cyanocobalamin (vitamin B-12) 1,000 mcg/mL solution 1,000 mcg IM Q4W 90 Days Qty: 4 15RF (DME) Purewick external catheter See Rx Instructions .Route .MEDSUPPLY Qty: 1 0RF Rx Instructions: As directed cetirizine 10 mg tablet 10 mg PO DAILY PRN (Reason: for allergies) Qty: 90 1RF nitrofurantoin monohyd/m-cryst [Macrobid] 100 mg capsule 100 mg PO Q12H 7 Days Qty: 14 0RF Rx Instructions: must administer with a meal/food Adult 50 Plus Probiotic 4 billion cell capsule 4,000 mmu cells PO DAILY Qty: 30 2RF Rx Instructions: administer with a meal albuterol sulfate 90 mcg/actuation HFA aerosol inhaler 2 puff PO Q4H PRN (Reason: for respiratory distress) Qty: 8.5 5RF (DME) BD Integra Syringe 3 mL 25 gauge x 5/8 syringe See Rx Instructions .Route Qty: 100 12RF Rx Instructions: As directed ondansetron HCl 8 mg tablet 8 mg PO Q12H PRN (Reason: nausea and vomiting) Qty: 30 0RF ascorbic acid (vitamin C) 500 mg tablet 500 mg PO BID Qty: 180 3RF albuterol sulfate 2.5 mg /3 mL (0.083 %) solution for nebulization 2.5 mg inhalation Q6H PRN (Reason: for wheezing) Qty: 180 11RF atorvastatin 80 mg tablet 80 mg PO BEDTIME Qty: 90 1RF clotrimazole 1 % cream 1 appl topical BID PRN (Reason: Rash) Qty: 45 11RF Trulicity 3 mg/0.5 mL pen injector 3 mg subcut SA Qty: 2 3RF Eliquis 5 mg tablet 5 mg PO BID 90 Days Qty: 180 0RF (DME) replacement mattress for her hospital bed See Rx Instructions .Route .MEDSUPPLY Qty: 1 0RF Rx Instructions: As directed (DME) Half bed rail for hospital bed See Rx Instructions .Route .MEDSUPPLY Qty: 2 0RF Rx Instructions: As directed diltiazem HCl [Cardizem CD] 120 mg capsule,extended release 24hr 120 mg PO DAILY Qty: 90 2RF Protocol: Hold for SBP/HR < HOLD for SBP < : 90 HOLD for HR < : 60 duloxetine 30 mg capsule,delayed release(DR/EC) See Rx Instructions .ROUTE .COMPLEX Qty: 90 1RF Dose Instruction: TAKE 1 CAPSULE BY MOUTH EVERY DAY Rx Instructions: TAKE 1 CAPSULE BY MOUTH EVERY DAY metoprolol succinate 100 mg tablet extended release 24 hr 100 mg PO DAILY Qty: 30 2RF (DME) hospital bed See Rx Instructions .Route .MEDSUPPLY Qty: 1 0RF Rx Instructions: As directed (DME) Reclining wheelchair See Rx Instructions .Route .MEDSUPPLY Qty: 1 0RF Rx Instructions: As directed cholecalciferol (vitamin D3) [Vitamin D3] 25 mcg (1,000 unit) Capsule 25 mcg PO DAILY dicyclomine 10 mg Capsule 10 mg PO Q6H PRN (Reason: Abdominal Pain) aspirin 81 mg Tablet,Delayed Release (Dr/Ec) 81 mg PO DAILY ipratropium-albuterol 0.5 mg-3 mg(2.5 mg base)/3 mL solution for nebulization 3 ml inhalation QID PRN (Reason: Shortness Of Breath Or Wheezing) acetaminophen 650 mg Tablet Extended Release 650 mg PO Q8H PRN (Reason: Pain) fluticasone propion-salmeterol [Wixela Inhub] 500-50 mcg/dose blister with device 1 inh inhalation BID (DME) compress.stocking,knee,reg,lrg Misc See Rx Instructions .Route Qty: 12 0RF Rx Instructions: As directed 20-30 mm HG tramadol 50 mg tablet 50 mg PO Q6H PRN (Reason: Pain) wisskdzk-woukzsfxt-FE 3.5-10,000-1 mg/mL-unit/mL-% solution 4 drp otic (ear) right Q8H 5 Days Qty: 10 0RF Referrals: [facility] [place] Vascular Services [Provider Group, Vascular Surgery] 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
[2024-12-24 12:04] LABS: MANUAL DIFF FLAG NO
[2024-12-24 12:06] LABS: Hematocrit 40.2 % (37.0-47.0); Hemoglobin 12.8 g/dl (12.0-16.0); Imm Gran Abs Auto 0.02 X10*3/uL (0.00-0.03); Imm Gran Pct Auto 0.3 % (0.0-0.4); Lymphocytes Absolute Auto 1.9 X10*3/uL (1.2-4.9); Mean Corpuscular HGB Conc 31.8 g/dl (31.0-35.0); Mean Corpuscular Hemoglobin 27.9 pg (27.0-33.0); Mean Corpuscular Volume 87.6 fL (80.0-98.0); NRBC Abs Auto 0.000 X10*3/uL (0.0-0.012); NRBC Pct Auto 0.0 /100WBC (0.0-0.2); Platelet Count 255 X10*3/uL (160-400); Red Blood Count 4.59 X10*6/uL (4.20-5.50); White Blood Count 7.1 X10*3/uL (4.8-10.8)
[2024-12-24 13:21] LABS: Alanine Aminotransferase 20 U/L (0-31); Albumin Level 3.7 g/dL (3.5-5.0); Alkaline Phosphatase 187 U/L (39-117); Anion Gap 12 (12-20); Aspartate Amino Transferase 33 U/L (5-31); Blood Urea Nitrogen 14 mg/dL (9-16); Calcium 9.3 mg/dL (8.4-10.2); Carbon Dioxide 28 mmol/L (22-29); Chloride 106 mmol/L (96-108); Creatinine Clr Calc Pharmacy 71.9; Estimated Glomerular Filt Rate > 60; Lipase 12 U/L (8-78); Potassium 4.4 mmol/L (3.3-5.1); Sodium 142 mmol/L (135-145); Total Protein 7.3 g/dL (6.5-8.0)
[2024-12-24] MEDS: iohexoL 350 MG/ML 100 ML INFUS..BTL IV (13:50)
[2024-12-24 14:32] LABS: Appearance Urine Cloudy; Glucose Urine UA Negative (Negative); PH 6.0 (5.0-9.0); Specific Gravity - Urine >= 1.030 (1.005-1.025); UMIC TRIGGER UACC YES
[2024-12-24 14:35] LABS: UACC Culture Trigger YES
--- OUTSIDE RECORDS SUMMARY | 2024-12-24 16:12 | XMS_ITS | Encounter Summary ---
Author Organization [facility] Address [address] [place] [id number] Phone Care Team Providers Care Gyn Name Role Phone Unavailable Primary Care Provider Unavailabl e Encounter Details Date Type Department Care Team (Latest Contact Info) Description 04/09/2017 Ancillary Orders [facility] [address] [place] [address] [place] [address] Sanya Benítez, CONNOR [address] [facility] [address] [place] [phone] Sick sinus syndrome; Coronary artery disease involving [place] coronary artery of [place] heart, angina presence unspecified Social History Tobacco [...] Sinoatrial node dysfunction Coronary artery disease involving [place] coronary artery of [place] heart, angina presence unspecified Sick sinus syndrome Sinoatrial node dysfunction Coronary artery disease involving [place] coronary artery of [place] heart, angina presence unspecified documented in this encounter Additional Source Comments The information contained in this document represents components of the legal health record. It is not the complete legal health record.[facility]
--- OUTSIDE RECORDS SUMMARY | 2024-12-24 16:12 | XMS_ITS | Clinical Summary ---
Author Organization [facility] Address [address] [place] [id number] Phone Care Team Providers Care Imaging Technician Name Role Phone Unavailable Primary Care Provider [...] topic Medical Devices Not on file Insurance [employer] [place] [address] [employer] [place] [phone] Additional Source Comments The information contained in this document represents components of the legal health record. It is not the complete legal health record.[facility]
--- OUTSIDE RECORDS SUMMARY | 2024-12-24 16:12 | XMS_ITS | Encounter Summary ---
Author Organization [facility] Address [address] [place] [address] Phone Care Team Providers Care Hip Hop Artist Name Role Phone Unavailable Primary Care Provider Unavailabl e Encounter Details Date Type Department Care Team (Late st Contact Info) Description 04/09/2017 Ancillary Orders [facility] [address] [place] [address] [address], [address] [place] [address] Sanya Benítez, CONNOR [address] [facility] [address] [place], [place] [phone] Social History Tobacco Use Types Packs/Day Years [...] It is not the complete legal health record.[facility]
--- OUTSIDE RECORDS SUMMARY | 2024-12-24 16:13 | XMS_ITS | Data Portability ---
Author Organization [facility], Main Office Address [address] [place] [address] Care Team Providers Care Casting Associate Name Role Phone RUSTY ROSEN 1ST FLOOR OTHER FLAVIA PURCELL Primary Care Provider [phone] Assessment Encounter Date Assessment Date Assessment LastModified [...] and Address Organization Details Recorded Time Dizziness 789783850 Active 2021 Not Available [facility] 4 23:47:36 Vertebral artery occlusion 354491529 Active 2021 Not Available [facility] 4 23:47:36 Aneurysm of middle cerebral artery 625223915 Active 2021 Not Available [facility] 4 23:47:36 Low blood pressure 40272541 Active 2021 Not Available [facility] 4 23:47:36 Chronic respiratory failure 41328143 Active 2021 Not Available [facility] 4 23:47:36 Hypothyroidis m 01537315 Active 2021 Not Available [facility] 4 23:47:36 Diabetes mellitus 30575686 Active 2021 Not Available [facility] 4 23:47:36 Anemia 994434748 Active 2021 Not Available [facility] 4 23:47:36 Vitamin D deficiency 64574168 Active 2021 Not Available [facility] 4 23:47:36 Paroxysmal atrial fibrillation 804045612 Active 2021 Not Available [facility] 4 23:47:36 Falls 959716875 Active 2021 Not Available [facility] 4 23:47:36 Coronary arteriosclero sis 41360845 Active 2021 Not Available [facility] 4 23:47:36 Obesity 355152746 Active 2021 [facility] Available [facility] 4 23:47:36 Obstructive sleep apnea syndrome 83258655 Active 2021 [facility] Available [facility] 4 23:47:36 Essential hypertension 71675420 Active 2021 Not Available [facility] 4 23:47:36 Gastroesophag eal reflux disease without esophagitis 359868369 Active 2021 Not Available [facility] 4 23:47:36 Congestive heart failure 89032052 Active 2021 [facility] Available [facility] 4 23:47:36 Fibromyalgia 428820870 Active 2021 [facility] Available [facility] 4 23:47:36 Mixed hyperlipidemi a 673191734 Active 2021 Not Available [facility] 4 23:47:36 Gout 50291810 Active 2021 Not Available [facility] 4 23:47:36 Closed fracture of hip 942976698 Active 2022 Not Available [facility] 4 23:47:36 Nausea 593448799 Active 2023 Not Available [facility] 4 23:47:36 Irritable bowel syndrome with diarrhea 702621912 Active 2023 Not Available [facility] 4 23:47:36 Notes:Some problems listed i n Documents: #[id number], #[id number], #[id number] could not be added to this patient's chart. Please review these documents and add these problems to the patient's chart manually as needed. Problem Notes None recorded. Procedures Surgical History Date Name Laterality Status Provider Name and Address Organization Details Recorded Time appendectomy completed JAMAICA CHAO, WINTERIZER [address], [address], [place], [address], [facility] 09/05/2021 14:35:03 Cholecystectomy completed JAMAICA CHAO, WINTERIZER [address], [address], [place], [address], [facility] 09/05/2021 14:35:12 hysterectomy completed JAMAICA CHAO, WINTERIZER [address], [address], [place], [address], [facility] 09/05/2021 14:35:20 procedure on heart completed JORDAN CHAO WINTERIZER [address], [address], [place], [address], [facility] 09/05/2021 14:36:04 total shoulder replacement completed JAMAICA CHAO, WINTERIZER [address], [address], [place], [address], [facility] 09/05/2021 14:36:27 procedure on vein completed JAMAICA CHAO, WINTERIZER [address], [address], [place], [address], [facility] 09/05/2021 14:36:48 operation on stomach completed JAMAICA CHAO WINTERIZER [address], [address], [place], [address], [facility] 09/05/2021 14:37:08 Imaging Results None recorded. Procedure Notes None recorded. Medical Equipment None Reported. Allergies Allergen ID Allergen Name Allergen Category Reaction Reaction Severity Criticality Documentation Date Start Date Code Code System Note Provider Name and Address Organization Details Recorded Time 31583 morphine medicatio n Not available Not available Not available 09/05/2021 7052 RxNorm JAMAICA CHAO, WINTERIZER [address], [address], [place], [address], [facility] 2 14:28:42 52085 Lyrica medicatio n Not available Not available Not available 09/05/2021 79431 1 RxNorm JAMAICA JEREMIE, WINTERIZER [address] [facility], [address], [place], [address], [facility] 2 14:28:48 Medications Name Sig Start Date [...] 97 % 128/61 mm[Hg] YUNG CALVILLO [address] [facility], [address], [place], [address], [facility] 4 13:10:16 Date Recorded Body height Provider Name an d Address Organization Details Last Updated DateTime 05/01/2023 160.02 cm YUNG CALVILLO [address] [place] [address], [address], [place], [address], [facility] 05/01/2023 15:43:18 Date Recorded Body height Body temperature Heart rate Respiratory rate Systolic And Diastolic Provider Name and Address Organization Details Last Updated DateTime 4 160.02 cm 98 [degF] 77 /min 17 /min 130/72 mm[Hg] YUNG CALVILLO [address] [place] [address], [address], [place], [address], [facility] 4 13:03:17 Date Recorded Body height Body temperature Respiratory rate Heart rate Oxygen saturation Oxygen saturation in Arterial blood by Pulse oximetry Systolic And Diastolic Provider Name and Address Organization Details Last Updated DateTime 4 160.02 cm 97.9 [degF] 18 /min 87 /min 96 % 96 % 122/72 mm[Hg] YUNG CALVILLO [address] [facility], [address], [place], [address], [facility] 4 00:16:06 Social History Question Answer Notes LastModified by Organizat ion Details LastModified Time Tobacco Smoking Status Former Smoker quit about 1999 Verna Barney MD [address] [place] [address], [address], [place], [address], [facility] 02/19/2023 18:54:47 Do You Have [...] 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 HCP On File Information not available [...] 50 mcg/0.25mL dose 1 completed Not Available [facility] 04/08/2023 23:47:37 COVID-19, mRNA, LNP-S, PF, 100 mcg/0.5mL dose or 50 mcg/0.25mL dose 2 completed Not Available [facility] 04/08/2023 23:47:37 Tdap 6 completed Not Available [facility] 04/08/2023 23:47:37 Influenza, split virus, quadrivalent, preservative 1 completed [facility] Available [facility] 04/08/2023 23:47:37 pneumococcal polysaccharide PPV23 1 completed Not Available [facility] 04/08/2023 23:47:37 pneumococcal polysaccharide PPV23 9 completed Not Available [facility] 04/08/2023 23:47:37 Pneumococcal conjugate PCV 13 0 completed Not Available [facility] 04/08/2023 23:47:37 zoster, unspecified formulation 8 completed Not Available [facility] 04/08/2023 23:47:37 zoster, unspecified formulation 9 completed Not Available [facility] 04/08/2023 23:47:37 zoster, unspecified formulation 6 completed Not Available [facility] 04/08/2023 23:47:37 Influenza, adjuvanted, quadrivalent, PF 3 completed Not Available [facility] 04/08/2023 23:47:37 Past Encounters Encounter ID Performer Location Encounter Start Date Encounter Closed Date Diagnosis/Indication Diagnosis SNOMED-CT Code Diagnosis ICD10 Code Diagnosis IMO Codes Diagnosis Note [id number] YUNG EGAN [address] [address] 09/05/2021 11:46:21 09/07/2021 08:06:00 Dizziness 308065271 R42 meclizine 12.5 mg bid prn monitor Low blood pressure 66300 003 I95.89 lasix 40 mg bid and losartan 50 mg qd discontinu ed in hospital for now monitor b/p and add back as able Vertebral artery occlusion 216774300 I65.02 needs to have a appt with outpatient [facility] neurosurge ry monitor Aneurysm o f middle cerebral artery 972199588 I67.1 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 will need to have outpatient appt with [facility] neurosurge ry [place] 769577258 R29.6 PT/OT eval and treat prn monitor for safety Essential hypertension 66315541 I10 ASA 81 mg qd diltiazem 120 mg qd carvedilol 25 mg bid lasix and losartan discontinu ed-watch to be able to add back monitor b/p and labs Coronary arteriosclerosis 90783898 I25.10 nitro 0.4 mg SL q 5 minutes x3 atorvastat in 40 mg qd ezetimibe 10 mg qd eliquis 5 mg bid ASA 81 mg qd diltiazem 120 mg qd carvedilol 25 mg bid monitor Diabetes mellitus 926065 09 E11.9 carb control diet glucose check bid semaglutid e 1.5 mg sq weekly monitor for s/s of hypo/hyper glycemia monitor A1c Congestive heart failure 50927807 I50.89 was on lasix 40 mg bid-monito r for need to add back monitor weights and s/s of heart failure Chronic re spiratory failure 00798690 J96.10 secondary to COPD oxygen at 2 liters via de fluticason e propion-sa lmeterol 500-50 mcg 1 inhalation bid spiriva 18 mcg 1 inhalation qd mucinex 600 mg bid prn albuterol neb 2.5 mg/3 ml q 4 hrs prn duo neb qid albuterol hfa 90 mcg 2 puffs q 4 hrs prn monitor for respirator y symptoms Anemia 652969749 D50.8 vitamin B12 1000 mcg IM q 4 weeks vitamin C 500 mg bid ferrous sulfate 325 mg qd monitor labs Fibromyalgia 196411161 M 79.7 duloxetine 30 mg qd meloxicam 7.5 mg qd tylenol 650 mg q 4 hrs prn monitor pain Gastroesop hageal reflux disease without esophagitis 857917946 K21.9 dexilant 30 mg qd dicyclomin e 10 mg qid prn carafate 1 gm q hs monitor for symptoms Hypothyroidism 43127344 E03.8 levothyrox ine 100 mcg qd monitor labs Mixed hyperlipidemia 267 028102 E78.2 atorvastat in 40 mg qd ezetimibe 10 mg qd questran 4 gms qid monitor labs Obesity 222699154 E66.9 encourage good choices ui application developer consult as needed monitor Paroxysmal atrial fibrillation 109937738 I48.0 eliquis 5 mg bid carvedilol 25 mg bid diltiazem 120 mg qd monitor rate and rhythm Obstructiv e sleep apnea syndrome 64730182 G47.33 not on cpap/bipap uses oxygen at 2 liters via nc monitor Vitamin D deficiency 347 30257 E55.9 vitamin D3 1000 iu qd monitor labs Gout 68560172 M10.9 she notes she has gout on/off in bilateral great toes they are noted to be slightly red may need to give prednisone burst if continues monitor [id number] [facility] [address] [address] 09/06/2021 09:47:43 09/11/2021 20:47:26 Dizziness 625946532 R42 see above continued on meclizine 12.5 mg bid prn monitor utilizatio n Low blood pressure 64378 003 I95.89 see HPIhtn/hyp o tensionnow with losartan and lasix heldcontin ued on coreg 25 mg bidmonitor bp and need to adjust Vertebral artery occlusion 636144042 I65.02 eval by neuro now onasa 81 mg qdlipitor 40 mg qdmonitor for sx Aneurysm o f middle cerebral artery 003959414 I67.1 see HPIright MCA aneurysm 4.6 mmto f/u with neurosurge rymonitor for sxupdate neurosurge ry with concernsmo nitor bp [place] 103735776 R29.6 PT OT eval and treatmonit or fall risk Essential hypertension 10646904 I10 medication s adjusted during hospitaliz ationnow oncoreg 25 mg biddiltiaz em 120 mg qdmonitor bp and need to adjust with lasix and losartan held Coronary arteriosclerosis 24888329 I25.10 at baseline added to PMHlipitor 40 mg qdasa 81 mg qdcoreg 25 mg bidmonitor for sxcards eval prn Diabetes mellitus 906780 09 E11.9 continue current medication smonitor blood glucose and need to adjust Congestive heart failure 55296853 I50.22 see abovecarry ing dxnow off lasixmonit or respirator y function and fluid status Anemia 626580531 D50.8 continue supplement smonitor cbciron studies prn Fibromyalgia 820557250 M 79.7 added to PMHcontinu e out patient meds Gastroesop hageal reflux disease without esophagitis 153565436 K21.9 stable on out patient medsmonito r sxupdate GI with concerns Hypothyroidism 98938818 E03.8 synthroid 100 mcg qdtsh prn Mixed hyperlipidemia 267 532049 E78.2 with baseline cadcontinu e statin and zetia Obesity 337383601 E66.09 dietary to eval Paroxysmal atrial fibrillation 743863013 I48.0 eliquis 5 mg bidcoreg 25 mg bidmonitor for rate control Obstructiv e sleep apnea syndrome 27111178 G47.33 added to PMHdoes not utilize cpap Chronic ob structive pulmonary disease 90136153 J41.1 baseline copd on O2 by 2 liters NC at baselineco ntinue out patient medsmonito r respirator y statuspulm onary eval prn [id number] YUNG EGAN [address] [address] 09/15/2021 13:21:28 09/19/2021 11:48:58 Dizziness 426960197 R42 meclizine 12.5 mg bid prn monitor Vertebral artery occlusion 159409771 I65.02 needs to have a appt with outpatient [facility] neurosurge ry monitor Aneurysm o f middle cerebral artery 617958383 I67.1 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 will need to have outpatient appt with [facility] neurosurge ry [place] 885311409 R29.6 PT/OT eval and treat prn monitor for safety Essential hypertension 32297315 I10 ASA 81 mg qd diltiazem 120 mg qd carvedilol 25 mg bid monitor b/p and labs Coronary arteriosclerosis 39398229 I25.10 nitro 0.4 mg SL q 5 minutes x3 atorvastat in 40 mg qd ezetimibe 10 mg qd eliquis 5 mg bid ASA 81 mg qd diltiazem 120 mg qd carvedilol 25 mg bid monitor Diabetes mellitus 436893 09 E11.9 carb control diet glucose check bid semaglutid e 1.5 mg sq weekly monitor for s/s of hypo/hyper glycemia monitor A1c Congestive heart failure 65931602 I50.89 not on diuretic at this time monitor weights and s/s of heart failure Chronic re spiratory failure 51509801 J96.10 secondary to COPD oxygen at 2 liters via nc fluticason e propion-sa lmeterol 500-50 mcg 1 inhalation bid spiriva 18 mcg 1 inhalation qd mucinex 600 mg bid prn albuterol neb 2.5 mg/3 ml q 4 hrs prn duo neb qid albuterol hfa 90 mcg 2 puffs q 4 hrs prn monitor for respirator y symptoms Anemia 835774367 D50.8 vitamin C 500 mg bid ferrous sulfate 325 mg qd monitor labs Fibromyalgia 454981088 M 79.7 duloxetine 30 mg qd meloxicam 7.5 mg qd tylenol 650 mg q 4 hrs prn monitor pain Gastroesop hageal reflux disease without esophagitis 807306744 K21.9 dexilant 30 mg qd dicyclomin e 10 mg qid prn carafate 1 gm q hs monitor for symptoms Hypothyroidism 48283016 E03.8 levothyrox ine 100 mcg qd monitor labs Mixed hyperlipidemia 267 503619 E78.2 atorvastat in 40 mg qd ezetimibe 10 mg qd questran 4 gms qid monitor labs Obesity 302853609 E66.9 encourage good choices ui application developer consult as needed monitor Paroxysmal atrial fibrillation 432573074 I48.0 eliquis 5 mg bid carvedilol 25 mg bid diltiazem 120 mg qd monitor rate and rhythm Obstructiv e sleep apnea syndrome 22982830 G47.33 not on cpap/bipap uses oxygen at 2 liters via de monitor Vitamin D deficiency 347 90303 E55.9 vitamin D3 1000 iu qd monitor labs Gout 50551202 M10.9 she notes she has gout on/off in bilateral great toes monitor Acute urin dom tract infection 147109694 N39.0 keflex 250 mg q 6 hrs x 3 days probiotic bid x 6 days monitor for resolution [id number] YUNG EGAN [facility] [address] [address] 09/18/2021 10:54:07 09/20/2021 15:18:56 Chronic respiratory failure 84624835 J96.10 secondary to COPD oxygen at 2 liters via de fluticason e propion-sa lmeterol 500-50 mcg 1 inhalation bid spiriva 18 mcg 1 inhalation qd mucinex 600 mg bid prn albuterol neb 2.5 mg/3 ml q 4 hrs prn duo neb qid albuterol hfa 90 mcg 2 puffs q 4 hrs prn monitor for respirator y symptoms Essential hypertension 91750731 I10 ASA 81 mg qd eliquis 5 mg bid diltiazem 120 mg qd carvedilol 25 mg bid monitor b/p and labs [id number] RADHA YODER NP [facility] [address] 09/21/2021 08:34:12 09/26/2021 14:28:17 Acute urinary tract infection 836232893 N39.0 keflex 250 mg q 6 hrs x 3 days completecl inically improvedMo nitor for sx. as outpt. Dizziness 132030680 R42 continue meclizine 12.5 mg bid prn monitor as outpt Aneurysm o f middle cerebral artery 998523641 I67.1 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continue asa and statinneed s outpatient appt with [facility] neuro[facility]ge [facility] [place] 424450977 R29.6 PT/OT eval and treat - meeting goals for d/c home monitor for safety as outpt Essential hypertension 34273922 I10 Prior issues low BP, taken off lasix 40 mg bid and losartan 50 mg qd in the hospitalNo issues with low BP hereCurren tly on: diltiazem 120 mg qd carvedilol 25 mg bid monitor b/p and labs as outpt. Coronary arteriosclerosis 51214124 I25.10 Continue current meds:nitro 0.4 mg SL q 5 minutes x3 atorvastat in 40 mg qd ezetimibe 10 mg qd eliquis 5 mg bid ASA 81 mg qd diltiazem 120 mg qd carvedilol 25 mg bid monitor VS, labs, CP status as outpt. Diabetes mellitus 739047 09 E11.9 Conitnue:c arb control diet semaglutid e 1.5 mg sq weekly monitor for s/s of hypo/hyper glycemia - no issues here monitor A1c Congestive heart failure 53037400 I50.89 not on diuretic at this time monitor weights and s/s of heart failure Chronic re spiratory failure 47714516 J96.10 secondary to COPDContin ue: oxygen at 2 liters via nc fluticason e propion-sa lmeterol 500-50 mcg 1 inhalation bid spiriva 18 mcg 1 inhalation qd mucinex 600 mg bid albuterol neb 2.5 mg/3 ml q 4 hrs prn duo neb qid albuterol hfa 90 mcg 2 puffs q 4 hrs prn monitor respirator y symptoms as outpt. Anemia 753189942 D50.8 Continue:v itamin C 500 mg bid ferrous sulfate 325 mg qd monitor CBC, s/s active bleeding as outpt. Fibromyalgia 639537447 M 79.7 Continue:d uloxetine 30 mg qd meloxicam 7.5 mg qd tylenol 650 mg q 4 hrs prn monitor pain Gastroesop hageal reflux disease without esophagitis 592050916 K21.9 Continue:d exilant 30 mg qd dicyclomin e 10 mg qid prn carafate 1 gm q hs monitor for symptoms Hypothyroidism 80828367 E03.8 continue levothyrox ine 100 mcg qd monitor labs Mixed hyperlipidemia 267 631591 E78.2 continue:a torvastati n 40 mg qd ezetimibe 10 mg qd questran 4 gms qid monitor labs Paroxysmal atrial fibrillation 314807368 I48.0 continue:e liquis 5 mg bid carvedilol 25 mg bid diltiazem 120 mg qd monitor as outpt Obstructiv e sleep apnea syndrome 55224306 G47.33 not on cpap/bipap uses oxygen at 2 liters via de monitor Vitamin D deficiency 347 07857 E55.9 vitamin D3 1000 iu qd monitor labs [id number] CONNOR NOVAK [address] [place] [address] rd [place] [address] 02/13/2023 10:15:03 02/26/2023 10:04:21 [place] 674937878 R29.6 PT OT eval and treatfall precaution sfrequent safety checks Dizziness 888512637 R42 meclizine 12.5 mg bid prnmonitor as outpt Essential hypertension 56272720 I10 lasix 40 mg dailymonit or b/p and labs as outpt. Coronary arteriosclerosis 45584352 I25.10 nitro 0.4 mg SL q 5 minutes [id number] atin 80 mg qdezetimib e 10 mg qdeliquis 5 mg bidASA 81 mg qdmonitor VS, labs, CP status as outpt. Diabetes mellitus 414911 09 E11.9 carb control dietsemagl utide 3 mg sq weeklymoni tor for s/s of hypo/hyper glycemiamo nitor A1c Congestive heart failure 16079870 I50.89 lasix 40 mg dailymonit or weights and s/s of heart failure Chronic re spiratory failure 97420356 J96.10 oxygen at 2 liters via de fluticason e propion-sa lmeterol 500-50 mcg 1 inhalation bidspiriva 18 mcg 1 inhalation qdalbutero l neb 2.5 mg/3 ml q 4 hrs prnduo neb qidalbuter ol hfa 90 mcg 2 puffs q 4 hrs prnmonitor respirator y symptoms as outpt. Paroxysmal atrial fibrillation 694421238 I48.0 eliquis 5 mg bidtoprol 50 mg dailymonit or as outpt Anemia 564102319 D50.8 vitamin C 500 mg bidferrous sulfate 325 mg qdthiamine 100 mg [id number] 1000 om monthlymon itor CBC Fibromyalgia 911855929 M 79.7 duloxetine 30 mg qdtylenol 650 mg q 4 hrs prnmonitor pain Gastroesop hageal reflux disease without esophagitis 414772661 K21.9 dexilant 30 mg qddicyclom ine 10 mg qid prncarafat e 1 gm q hszofran 8 mg q12 hr prnmonitor for symptoms Hypothyroidism 42151812 E03.8 levothyrox ine 100 mcg qdmonitor labs Mixed hyperlipidemia 267 400379 E78.2 atorvastat in 80 mg qdezetimib e 10 mg qdmonitor labs Obstructiv e sleep apnea syndrome 30101786 G47.33 not on cpap/bipap uses oxygen at 2 liters via nc monitor Vitamin D deficiency 347 92508 E55.9 vitamin D3 1000 iu qd monitor labs Closed fra cture of hip 859832822 S72.001A followup with ortho in 2 weekstrama dol 50 mg q6hr prnmonitor surgical incision for s/s infection [id number] SARAH PETERSON NP [address] [address] 02/15/2023 09:53:27 02/26/2023 11:30:23 Dizziness 103911138 R42 meclizine 25 mg tidmonitor as outpt Closed fra cture of hip 382481554 S72.001A followup with ortho in 2 weekstrama dol 50 mg q6hr prnmonitor surgical incision for s/s infection Congestive heart failure 91054596 I50.89 lasix 40 mg dailymonit or weights and s/s of heart failure [id number] Verna Barney MD [address] [address] 02/19/2023 13:15:20 02/26/2023 13:59:05 [place] 382842738 R29.6 As above. Closed fra cture of hip 108275126 S72.041D Poor cooperatio n with rehab.Very deconditio [place].Needs PT/OT for strengthen ing, balance, gait training, safety and function.C ontinue fall precaution s.Monitor for safety.Con tinue tramadol 50 mg q 6 hrs prnWill add APAP 1000 mg TID,Monito r surgical incision.F /U with ortho as planned Dizziness 239653579 R42 Not clearly vertigo, could be orthostati c hypotensio n.Will check orthostati c vitals BID x 2 days.Tracy nue meclizine 25 mg TIDMonitor sxs Essential hypertension 02349190 I10 Good control lasix 40 mg qd and metoprolol 50 mg qd.Monitor BP and labs. Coronary arteriosclerosis 49292061 I25.10 No current sxs.Contin ue meds as above and NTG 0.4 mg SL q 5 minutes x3 prn, atorvastat in 80 mg qd, ezetimibe 10 mg qd and ASA 81 mg qdMonitor sxs and vital.F/U with cardio prn. Diabetes mellitus 458623 09 E11.9 In excellent control since here.Tracy nue semaglutid e 3 mg sq weekly and SSI.Will decrease fingerstic ks to fasting and monitor HgA1C q 3 months. Congestive heart failure 66579219 I50.89 Appears euvolemic. Continue meds as above.Urmila tor resp. status, fluid status, wts and labs. Chronic re spiratory failure 77359627 J96.11 At baseline.C ontinue supplement al O2 at 2 liters by SD.Duonebs are supposed to be qid scheduled, but written as prn, will change.Con tinue Advair 500/50 mcg BID, spiriva 18 mcg qd, albuterol nebs q 6 hrs prn, and albuterol HFA 90 mcg 2 puffs q 4 hrs prn.Monito r resp status. Paroxysmal atrial fibrillation 283927241 I48.0 Rate in good control on meds as above.Cont inue eliquis 5 mg BID for AC.Monitor HR and bleeding risk. Anemia 095356556 D50.8 With minimal drop post-op.Co ntinue FeSO4 325 mg qd with vitamin C 500 mg BID, thiamine 100 mg qd and vitamin B12 1000 mcg q monthMonit or labs. Fibromyalgia 053843765 M 79.7 Continue duloxetine 30 mg qdAlso currently on tramadol and APAP for hip fx.Monitor sxs. Gastroesop hageal reflux disease without esophagitis 437406764 K21.9 No current sxs.Contin ue omeprazole 20 mg qd and zofran 8 mg q 12 hrs prnMonitor for sxs Hypothyroidism 77291747 E03.8 Last TSH 4.82 in 11/2022 with nl FT4.Contin ue levothyrox ine 100 mcg qdMonitor labs prn Mixed hyperlipidemia 267 344646 E78.2 Continue atorvastat in 80 mg qd and ezetimibe 10 mg qdMonitor labs as outpt. Obstructiv e sleep apnea syndrome 10333505 G47.33 Intolerant of cpap/bipap Continue supplement al O2 as above.Urmila tor sats. Vitamin D deficiency 347 51084 E55.9 Continue vitamin D3 1000 IU qdMonitor labs as outpt. Aneurysm o f middle cerebral artery 624835578 I67.1 Hx of 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Saw neurosurg several times, imaging showed stable size.Decis ion for conservati ve tx due to other medical problems.W ould embolize only if sxs of severe [place]. Nausea 014824541 R11.0 Pt. thinks from eye problem as it was there before fallContin ue Zofran 8 mg q 12 hrs prn.F/U with eye dr as planned.Wi ll have nursing try and figure out when appt is. Irritable bowel syndrome with diarrhea 433076739 K58.0 Continue dicyclomin e 10 mg qid prnPt. not interested in trying imodium.Mo nitor bowel habits. [id number] CONNOR NOVAK [address] [place] [phone] 5 02/22/2023 12:34:39 02/26/2023 15:08:05 Congestive heart failure [id number] I50.89 lasix 40 mg dailymonit or weights and s/s of heart failure Dizziness 661999856 R42 meclizine 25 mg tidmonitor as outpt Closed fra cture of hip 863003318 S72.001A followup with ortho in 2 weekstrama dol 50 mg q6hr prnmonitor surgical incision for s/s infection [id number] YUNG CALVILLO JESSIKA [address] [place] [phone] 5 02/26/2023 11:35:20 03/06/2023 12:35:17 Falls 033700050 R29.6 PT OT eval and treatfall precaution sfrequent safety checks Closed fra cture of hip [id number] S72.001A follow up with ortho in 2 weekstrama dol 50 mg q6hr prnmonitor surgical incision for s/s infection Dizziness 635625565 R42 meclizine 12.5 mg bid prnmonitor as outpt Essential hypertension 85251106 I10 stablelasi x 40 mg dailymonit or b/p and labs as outpt. Coronary arteriosclerosis 94559939 I25.10 02/26/23 denies chest discomfort nitro 0.4 mg SL q 5 minutes [id number] atin 80 mg qdezetimib e 10 mg qdeliquis 5 mg bidASA 81 mg qdmonitor VS, labs, CP status as outpt. Diabetes mellitus 639338 09 E11.9 stable readings under 150carb control dietsemagl utide 3 mg sq weeklymoni tor for s/s of hypo/hyper glycemiamo nitor A1c Congestive heart failure 24234642 I50.89 lasix 40 mg dailymonit or weights and s/s of heart failure Chronic re spiratory failure 93528102 J96.10 oxygen at 2 liters via nc fluticason e propion-sa lmeterol 500-50 mcg 1 inhalation bidspiriva 18 mcg 1 inhalation qdalbutero l neb 2.5 mg/3 ml q 4 hrs prnduo neb qidalbuter ol hfa 90 mcg 2 puffs q 4 hrs prnmonitor respirator y symptoms as outpt. Paroxysmal atrial fibrillation 609928701 I48.0 eliquis 5 mg bidtoprol 50 mg dailymonit or as outpt Gastroesop hageal reflux disease without esophagitis 619224322 K21.9 dexilant 30 mg qddicyclom ine 10 mg qid prncarafat e 1 gm q hszofran 8 mg q12 hr prnmonitor for symptoms [id number] YUNG CALVILLO [address] [place] [address] [phone] 5 02/28/2023 09:39:57 03/06/2023 13:35:24 Closed fracture of hip 911165053 S72.001A staple intactappt to remove later today.tram adol 50 mg q6hr prnmonitor surgical incision for s/s infection Dizziness 377638448 R42 meclizine 12.5 mg bid prnmonitor as outpt Essential hypertension 00543572 I10 stablelasi x 40 mg dailymonit or b/p and labs as outpt. Coronary arteriosclerosis 45714840 I25.10 02/26/23 denies chest discomfort nitro 0.4 mg SL q 5 minutes [id number] atin 80 mg qdezetimib e 10 mg qdeliquis 5 mg bidASA 81 mg qdmonitor VS, labs, CP status as outpt. Diabetes mellitus 571901 09 E11.9 stable readings under 150carb control dietsemagl utide 3 mg sq weeklymoni tor for s/s of hypo/hyper glycemiamo nitor A1c Congestive heart failure 63169702 I50.89 lasix 40 mg dailymonit or weights and s/s of heart failure Chronic re spiratory failure 28086968 J96.10 oxygen at 2 liters via de fluticason e propion-sa lmeterol 500-50 mcg 1 inhalation bidspiriva 18 mcg 1 inhalation qdalbutero l neb 2.5 mg/3 ml q 4 hrs prnduo neb qidalbuter ol hfa 90 mcg 2 puffs q 4 hrs prnmonitor respirator y symptoms as outpt. Paroxysmal atrial fibrillation 547444396 I48.0 eliquis 5 mg bidtoprol 50 mg dailymonit or as outpt Gastroesop hageal reflux disease without esophagitis 678845188 K21.9 dexilant 30 mg qddicyclom ine 10 mg qid prncarafat e 1 gm q hszofran 8 mg q12 hr prnmonitor for symptoms [id number] YUNG CALVILLO [address] [place] [phone] 5 03/04/2023 11:36:26 03/06/2023 14:27:58 Closed fracture of hip 129407103 S72.001A anisa removed 02/28/11tra madol 50 mg q6hr prnmonitor surgical incision for s/s infection Dizziness 038539122 R42 reports that she has not been working with PT due to dizziness. Patient encouraged to utilized prnnursing to assess for dizziness. meclizine 12.5 mg bid prnmonitor as outpt Essential hypertension 77583244 I10 stablelasi x 40 mg dailymonit or b/p and labs as outpt. Congestive heart failure 50374431 I50.89 lasix 40 mg dailymonit or weights and s/s of heart failuretra ce edema noted to ble. Chronic re spiratory failure 01578162 J96.10 oxygen at 2 liters via nc fluticason e propion-sa lmeterol 500-50 mcg 1 inhalation bidspiriva 18 mcg 1 inhalation qdalbutero l neb 2.5 mg/3 ml q 4 hrs prnduo neb qidalbuter ol hfa 90 mcg 2 puffs q 4 hrs prnmonitor respirator y symptoms as outpt. Paroxysmal atrial fibrillation 400920860 I48.0 eliquis 5 mg bidtoprol 50 mg dailymonit or as outpt Gastroesop hageal reflux disease without esophagitis 223700336 K21.9 dexilant 30 mg qddicyclom ine 10 mg qid prncarafat e 1 gm q hszofran 8 mg q12 hr prnmonitor for symptoms [id number] YUNG CALVILLO [address] [place] [phone] 5 03/07/2023 10:08:49 03/11/2023 15:58:17 Closed fracture of hip 478275574 S72.001A right hip with minimal swelling, no s/sx of infection. anisa removed 02/28/11tra madol 50 mg q6hr prnmonitor surgical incision for s/s infection Dizziness [id number] R42 reports that she has not been working with PT due to dizziness. Patient is encouraged to take prn meclizine prior to therapy.Hung kimball encouraged to utilized prnnursing to assess for dizziness. meclizine 12.5 mg bid prnmonitor as outpt Essential hypertension 78286801 I10 stablelasi x 40 mg dailymonit or b/p and labs as outpt. Congestive heart failure 40216164 I50.89 lasix 40 mg dailymonit or weights and s/s of heart failuretra ce edema noted to ble. Chronic re spiratory failure 18852193 J96.10 oxygen at 2 liters via de fluticason e propion-sa lmeterol 500-50 mcg 1 inhalation bidspiriva 18 mcg 1 inhalation qdalbutero l neb 2.5 mg/3 ml q 4 hrs prnduo neb qidalbuter ol hfa 90 mcg 2 puffs q 4 hrs prnmonitor respirator y symptoms as outpt. Paroxysmal atrial fibrillation 624349959 I48.0 eliquis 5 mg bidtoprol 50 mg dailymonit or as outpt Gastroesop hageal reflux disease without esophagitis 235235760 K21.9 dexilant 30 mg qddicyclom ine 10 mg qid prncarafat e 1 gm q hszofran 8 mg q12 hr prnmonitor for symptoms [id number] YUNG CALVILLO RUSTY JESSIK[address] [place] [phone] 5 03/12/2023 07:48:41 03/15/2023 08:33:06 Closed fracture of hip 578240439 S72.001A right hip with minimal swelling, no s/sx of infection. anisa removed 02/28/11tra madol 50 mg q6hr prnmonitor surgical incision for s/s infection Dizziness 989989656 R42 reports improvemen tmeclizine prior to therapy.Hung kimball encouraged to utilized prnnursing to assess for dizziness. meclizine 12.5 mg bid prnmonitor as outpt Essential hypertension 95556588 I10 stablelasi x 40 mg dailymonit or b/p and labs as outpt. Congestive heart failure 94804104 I50.89 lasix 40 mg dailymonit or weights and s/s of heart failuretra ce edema noted to ble. Chronic re spiratory failure 79613639 J96.10 oxygen at 2 liters via de fluticason e propion-sa lmeterol 500-50 mcg 1 inhalation bidspiriva 18 mcg 1 inhalation qdalbutero l neb 2.5 mg/3 ml q 4 hrs prnduo neb qidalbuter ol hfa 90 mcg 2 puffs q 4 hrs prnmonitor respirator y symptoms as outpt. Paroxysmal atrial fibrillation 888675764 I48.0 eliquis 5 mg bidtoprol 50 mg dailymonit or as outpt Gastroesop hageal reflux disease without esophagitis 911022246 K21.9 dexilant 30 mg qddicyclom ine 10 mg qid prncarafat e 1 gm q hszofran 8 mg q12 hr prnmonitor for symptoms [id number] YUNG CALVILLO [facility] JESSIKA [address] [facility] [place] [phone] 5 03/15/2023 08:18:00 03/20/2023 11:41:33 Closed fracture of hip 352987759 S72.001A right hip with minimal swelling, no s/sx of infection. anisa removed 02/28/11tra madol 50 mg q6hr prnmonitor surgical incision for s/s infection Dizziness 598250065 R42 meclizine 12.5 mg bid prnmonitor as outpt Essential hypertension 81105623 I10 stablelasi x 40 mg dailymonit or b/p and labs as outpt. Congestive heart failure 67966012 I50.89 lasix 40 mg dailymonit or weights and s/s of heart failure2+ edema noted to lower ankles Chronic re spiratory failure 19525344 J96.10 O2 dependento xygen at 2 liters via nc fluticason e propion-sa lmeterol 500-50 mcg 1 inhalation bidspiriva 18 mcg 1 inhalation qdalbutero l neb 2.5 mg/3 ml q 4 hrs prnduo neb qidalbuter ol hfa 90 mcg 2 puffs q 4 hrs prnmonitor respirator y symptoms as outpt. Paroxysmal atrial fibrillation 415261584 I48.0 eliquis 5 mg bidtoprol 50 mg dailymonit or as outpt Gastroesop hageal reflux disease without esophagitis 540269167 K21.9 dexilant 30 mg qddicyclom ine 10 mg qid prncarafat e 1 gm q hszofran 8 mg q12 hr prnmonitor for symptoms [id number] YUNG CALVILLO [address] [phone] 5 03/18/2023 07:52:24 04/02/2023 15:36:02 Closed fracture of hip 690840403 S72.001A right hip with minimal swelling, no s/sx of infection. anisa removed 02/28/11tra madol 50 mg q6hr prnmonitor surgical incision for s/s infection Dizziness 858763241 R42 meclizine 12.5 mg bid prnmonitor as outpt Essential hypertension 81813275 I10 stablelasi x 40 mg dailymonit or b/p and labs as outpt. Congestive heart failure 62407524 I50.89 weight today 204 up 3 lbs from 201 on 03/16- may need to give additional lasix , will monitorlas ix 40 mg dailymonit or weights and s/s of heart failure2+ edema noted to lower ankles Chronic re spiratory failure 26120723 J96.10 O2 dependento xygen at 2 liters via de fluticason e propion-sa lmeterol 500-50 mcg 1 inhalation bidspiriva 18 mcg 1 inhalation qdalbutero l neb 2.5 mg/3 ml q 4 hrs prnduo neb qidalbuter ol hfa 90 mcg 2 puffs q 4 hrs prnmonitor respirator y symptoms as outpt. Paroxysmal atrial fibrillation 150418899 I48.0 eliquis 5 mg bidtoprol 50 mg dailymonit or as outpt [id number] YUNG CALVILLO [address] [phone] 5 03/25/2023 11:40:05 03/27/2023 15:02:29 Closed fracture of hip 128121837 S72.001A right hip with minimal swelling, no s/sx of infection. anisa removed 02/28/11tra madol 50 mg q6hr prn Dizziness 980910784 R42 meclizine 12.5 mg bid prnmonitor as outpt Essential hypertension 15134160 I10 stablelasi x 40 mg dailymonit or b/p and labs as outpt. Congestive heart failure 39625804 I50.89 lasix 40 mg dailymonit or weights and s/s of heart failure1-2 + edema noted to lower ankles Chronic re spiratory failure 18745235 J96.10 supplement al O2 at 2 liters via de fluticason e propion-sa lmeterol 500-50 mcg 1 inhalation bidspiriva 18 mcg 1 inhalation qdalbutero l neb 2.5 mg/3 ml q 4 hrs prnduo neb qidalbuter ol hfa 90 mcg 2 puffs q 4 hrs prnmonitor respirator y symptoms as outpt. Paroxysmal atrial fibrillation 637285651 I48.0 eliquis 5 mg bidtoprol 50 mg dailymonit or as outpt [id number] YUNG CALVILLO [address] [phone] 5 04/01/2023 07:59:04 04/04/2023 13:27:21 Closed fracture of hip 264167918 S72.001A right hip with minimal swelling, no s/sx of infection. anisa removed 02/28/11tra madol 50 mg q6hr prn Congestive heart failure 26077238 I50.89 lasix 40 mg dailymonit or weights and s/s of heart failure1-2 + edema noted to lower anklesenco uraged legs elevations and oksana bandages to bilateral lower extremitie s. Falls 603221884 R29.6 PT/OT prnfall precaution sfrequent safety checks [id number] YUNG CALVILLO [address] [phone] 5 04/04/2023 14:04:47 04/08/2023 12:33:49 Closed fracture of hip 423466005 S72.001A s/p fall 02/10 with right hip repair.tra madol 50 mg q6hr prnpatient stays in bed, refuses OOB per nursing staff. Congestive heart failure 83615649 I50.89 lasix 40 mg dailymonit or weights and s/s of heart failure1-2 + edema noted to lower anklesenco uraged legs elevations and oksana bandages to bilateral lower extremitie s. Falls 929072693 R29.6 fall precaution sfrequent safety checks [id number] YUNG CALVILLO [address] [phone] 5 04/10/2023 08:45:25 04/11/2023 18:26:36 Closed fracture of hip 800901612 S72.001A s/p fall 02/10 with right hip repair.tra madol 50 mg q6hr prnpatient stays in bed, refuses OOB per nursing staff.04/09: patient got OOB yesterday per her request. Congestive heart failure 88548769 I50.89 lasix 40 mg dailymonit or weights and s/s of heart failure1-2 + edema noted to lower anklesenco uraged legs elevations and oksana bandages to bilateral lower extremitie s. Falls 582157896 R29.6 fall precaution sfrequent safety checks [id number] Verna Barney MD [address] [place] SINHA [phone] 5 04/12/2023 18:36:04 04/16/2023 11:21:31 Closed fracture of hip 048894139 S72.041D Has recovered from fx, but mobility is still an issue.Will have lots of help at home, but not overnight. Will need to be monitored closely outpt for safety.No further f/u with ortho, unless needed. Congestive heart failure 43266128 I50.89 Continues at baseline.C ontinue meds as above.Urmila tor resp. status, fluid status, wts and labs. Falls 216686236 R29.6 Continue fall precaution s.Monitor for safety. Dizziness 076818845 R42 No c/o todayConti nue meclizine 25 mg TIDMonitor sxs Nausea 667062526 R11.0 Seems better per pt.Continu e Zofran 8 mg q 12 hrs prn.Monito r Essential hypertension 95544105 I10 Good control on lasix 40 mg qd and metoprolol 50 mg qd.Monitor BP and labs. Coronary arteriosclerosis 57486639 I25.10 No current sxs.Contin ue meds as above and NTG 0.4 mg SL q 5 minutes x3 prn, atorvastat in 80 mg qd, ezetimibe 10 mg qd and ASA 81 mg qdMonitor sxs and vital.F/U with cardio prn. Diabetes mellitus 280809 09 E11.9 In excellent control since here.Tracy nue semaglutid e 3 mg sq weekly.Poli l d/c SSI and monitor sugars prn. Chronic re spiratory failure 35765798 J96.11 Continues at baseline.C ontinue supplement al O2 at 1-2 liters by SD to maintain sats 90-94%Duon ebs qid prn, Advair 500/50 mcg BID, spiriva 18 mcg qd, albuterol nebs q 6 hrs prn, and albuterol HFA 90 mcg 2 puffs q 4 hrs prn.Monito r resp status. Paroxysmal atrial fibrillation 774525840 I48.0 Rate in good control on meds as above.Cont inue eliquis 5 mg BID for AC.Monitor HR and bleeding risk. Anemia 323421163 D50.8 With minimal drop post-op.Co ntinue FeSO4 325 mg qd with vitamin C 500 mg BID, thiamine 100 mg qd and vitamin B12 1000 mcg q monthMonit or labs. Fibromyalgia 673926033 M 79.7 Continue duloxetine 30 mg qdMonitor sxs. Gastroesop hageal reflux disease without esophagitis 443981866 K21.9 No current sxs.Contin ue omeprazole 20 mg qd and zofran 8 mg q 12 hrs prnMonitor for sxs Hypothyroidism 76029104 E03.8 Last TSH 4.82 in 11/2022 with nl FT4.Contin ue levothyrox ine 100 mcg qdMonitor labs prn Mixed hyperlipidemia 267 377615 E78.2 Continue atorvastat in 80 mg qd and ezetimibe 10 mg qdMonitor labs as outpt. Obstructiv e sleep apnea syndrome 78278211 G47.33 Intolerant of cpap/bipap Continue supplement al O2 as above.Urmila tor sats. Vitamin D deficiency 347 98026 E55.9 Continue vitamin D3 1000 IU qdMonitor labs as outpt. Aneurysm o f middle cerebral artery 830213640 I67.1 Hx of 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Saw neurosurg several times, imaging showed stable size.Decis ion for conservati ve tx due to other medical problems.W ould embolize only if sxs of severe LOGNORIA. Irritable bowel syndrome with diarrhea 286169312 K58.0 Continue dicyclomin e 10 mg qid prnMonitor bowel habits. [id number] YUNG CALVILLO [address] [phone] 5 04/17/2023 07:50:06 04/23/2023 10:23:47 Closed fracture of hip 345258482 S72.001A s/p fall 02/10 with right hip repair.tra madol 50 mg q6hr prnpatient stays in bed, refuses OOB per nursing staff.04/09: patient got OOB yesterday per her request. Congestive heart failure 67394384 I50.89 lasix 40 mg dailymonit or weights and s/s of heart failure1-2 + edema noted to lower anklesenco uraged legs elevations and oksana bandages to bilateral lower extremitie s. Falls 631656764 R29.6 fall precaution sfrequent safety checks Essential hypertension 52440562 I10 stablelasi x 40 mg dailymonit or b/p and labs as outpt. Diabetes mellitus 199325 09 E11.9 stable readings under 150carb control dietsemagl utide 3 mg sq weeklymoni tor for s/s of hypo/hyper glycemiamo nitor A1c [id number] RALPH RIDER [address] [address] 5 04/24/2023 10:07:25 04/26/2023 13:02:59 Closed fracture of hip 883839565 S72.001A s/p fall 02/10 with right hip repair.tra madol 50 mg q6hr prnpatient stays in bed, refuses OOB per nursing staff.04/09: patient got OOB yesterday per her request. Congestive heart failure 33139036 I50.89 lasix 40 mg dailyweigh t stablemoni tor weights and s/s of heart failuretra ce edemaencou raged legs elevations and oksana bandages to bilateral lower extremitie s. Falls 311772437 R29.6 fall precaution sfrequent safety checks Essential hypertension 53204065 I10 stablelasi x 40 mg dailymonit or b/p and labs as outpt. Diabetes mellitus 114051 09 E11.9 stable readings under 150carb control dietsemagl utide 3 mg sq weeklymoni tor for s/s of hypo/hyper glycemiamo nitor A1c [id number] RALPH RIDER [address] [address] 5 05/01/2023 09:21:18 05/03/2023 14:11:33 Closed fracture of hip 902940514 S72.001A s/p fall 02/10 with right hip repair.tra madol 50 mg q6hr prnpatient stays in bed, refuses OOB per nursing staff.04/09: patient got OOB yesterday per her request. Congestive heart failure 52888871 I50.89 lasix 40 mg dailyweigh t stablemoni tor weights and s/s of heart failuretra ce edemaencou raged legs elevations and oksana bandages to bilateral lower extremitie s. Falls 345719730 R29.6 fall precaution sfrequent safety checks Essential hypertension 63613056 I10 stablelasi x 40 mg dailymonit or b/p and labs as outpt. Diabetes mellitus 059254 09 E11.9 stable readings under 150carb control dietsemagl utide 3 mg sq weeklymoni tor for s/s of hypo/hyper glycemiamo nitor A1c [id number] RALPH RIDER [address] [address] 5 05/08/2023 11:17:04 05/13/2023 16:10:41 Closed fracture of hip 185138251 S72.001A s/p fall 02/10 with right hip repair.tra madol 50 mg q6hr Congestive heart failure 73429924 I50.89 lasix 40 mg dailyweigh t stablemoni tor weights and s/s of heart failuretra ce edemaencou raged legs elevations and oksana bandages to bilateral lower extremitie s. Falls 940374668 R29.6 fall precaution sfrequent safety checks Essential hypertension 19804098 I10 stablelasi x 40 mg dailymonit or b/p and labs as outpt. Diabetes mellitus 937503 E11.9 stable readings under 150carb control dietsemagl utide 3 mg sq weeklymoni tor for s/s of hypo/hyper glycemiamo nitor A1c [id number] RALPH RIDER [address] [address] 5 05/15/2023 08:19:24 05/20/2023 15:40:14 Closed fracture of hip 150700346 S72.001A s/p fall 02/10 with right hip repair.tra madol 50 mg q6hr Congestive heart failure 93454701 I50.89 lasix 40 mg dailyweigh t stablemoni tor weights and s/s of heart failuretra ce edemaencou raged legs elevations and oksana bandages to bilateral lower extremitie s. Falls 698583410 R29.6 fall precaution sfrequent safety checks Essential hypertension 00365369 I10 stablelasi x 40 mg dailymonit or b/p and labs as outpt. Diabetes mellitus 140419 09 E11.9 stable readings under 150carb control dietsemagl utide 3 mg sq weeklymoni tor for s/s of hypo/hyper glycemiamo nitor A1c [id number] YUNG CALVILLO [address] [place] [address] rd [place]I SIN[place] [address] 5 05/17/2023 15:20:25 05/21/2023 12:20:46 Closed fracture of hip 165205967 S72.001A s/p fall 02/10 with right hip repair.tra madol 50 mg q6hr Congestive heart failure 67668355 I50.89 lasix 40 mg dailyweigh t stablemoni tor weights and s/s of heart failuretra ce edemaencou raged legs elevations and oksana bandages to bilateral lower extremitie s. Falls 582471268 R29.6 fall precaution sfrequent safety checks Essential hypertension 56042389 I10 lasix 40 mg daily Diabetes mellitus 431729 09 E11.9 semaglutid e 3 mg sq weeklymoni tor for s/s of hypo/hyper glycemiamo nitor A1c Anemia 877670116 D50.8 Continue FeSO4 325 mg qd with vitamin C 500 mg BID, thiamine 100 mg qd and vitamin B12 1000 mcg q Aneurysm o f middle cerebral artery 191823867 I67.1 Ccarrying dx Chronic re spiratory failure 61607292 J96.11 supplement al O2 at 2 liters via ncfluticas one propion-sa lmeterol 500-50 mcg 1 inhalation bidspiriva 18 mcg 1 inhalation qdalbutero l neb 2.5 mg/3 ml q 4 hrs prnduo neb qidalbuter ol hfa 90 mcg 2 puffs q 4 hrs prn Coronary arteriosclerosis 50064879 I25.10 nitro 0.4 mg SL q 5 minutes [id number] atin 80 mg qdezetimib e 10 mg qdeliquis 5 mg bidASA 81 mg qdmonitor VS, labs Dizziness 304114319 R42 meclizine 12.5 mg bid prnmonitor as outpt Gastroesop hageal reflux disease without esophagitis 084390070 K21.9 dexilant 30 mg qddicyclom ine 10 mg qid prncarafat e 1 gm q hszofran 8 mg q12 hr prn Fibromyalgia 736392233 M 79.7 Continue duloxetine 30 mg qd Gout 19087055 M10.9 carrying dx Hypothyroidism 68669744 E03.8 Continue levothyrox ine 100 mcg qd Irritable bowel syndrome with diarrhea 939763110 K58.0 Continue dicyclomin e 10 mg qid prn Mixed hyperlipidemia 267 807192 E78.2 Continue atorvastat in 80 mg qd and ezetimibe 10 mg qd Nausea 050853360 R11.0 Continue Zofran 8 mg q 12 hrs prn. Obstructiv e sleep apnea syndrome 42225310 G47.33 Intolerant of cpap/bipap Continue supplement al O2 as above. Paroxysmal atrial fibrillation 405419576 I48.0 eliquis 5 mg bidtoprol 50 mg dailymonit or as outpt Vitamin D deficiency 347 28069 E55.9 Continue vitamin D3 1000 IU qdMonitor labs as outpt. 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.02 needs to have a appt with outpatient [facility] neurosurge ry Health Concerns Section Related Observation LastModified by Organization Detai ls LastModified Time None Recorded Concern Status LastModified by Organization Details LastModified Time None Recorded Advance Directives Directive Y: Payers Insurance Date Sequence Insurance Name Policy Number Policy Palomino Covered Member ID Palomino Member ID Guarantor Name 05/20/2023 1 [facility] - [facility] ELIG[facility]IC[facility]PLACEMENT/A DVANTAGE - HMO) Carlyjoaquin Tenate [id number] Carly [employer] 04/24/2023 2 MEDICARE B-[place]: [employer] Carly Hotte [id number] Carly [employer]ppo [employer] Notes Date Note Type Note Provider Name and Address Organization Details Recorded Time 04/24/2023 text/html ROS as noted in the HPI 82 yr old female with PMH includes HTN, Afib on Eliquis, CAD s/p CABG and angioplasty, CHF combined type, COPD on home O2, AODM, GERD, gait instability, hypothyroidism, anemia, HLD, RCISTA intolerant of CPAP, gout, obesity, chronic pain, [...] no acute nursing concerns. YUNG CALVILLO [address] [facility], [address], [place], [address], [facility] 04/24/2023 13:13:25 05/01/2023 text/html ROS as noted in the [facility] 82 yr old female with PMH includes [...] no acute nursing concerns. YUNG CALVILLO [address] [facility], [address], [place], [address], [employer] 05/01/2023 15:45:39 05/08/2023 text/html ROS as noted in the [facility] 82 yr old female with PMH includes [...] no acute nursing concerns. YUNG CALVILLO [address] [facility], [address], [place], [address], [facility] 05/09/2023 09:20:31 05/15/2023 text/html ROS as noted in the [facility] 82 yr old female with PMH includes [...] for acute rounding visit. YUNG CALVILLO [address] [facility], [address], [place], [address], [employer] 05/16/2023 00:18:01 05/17/2023 text/html ROS as noted in the [facility] 82 yr old female with PMH includes [...] PT/OT and VNA services. YUNG CALVILLO [address] [facility], [address], [place], [address], [facility] 05/17/2023 15:28:55 OBGyn Episode No OBEpisode recorded.
--- NOTE | 2024-12-24 19:56 | MHC.EDTECH ---
This panman placed a purewick on patient.
--- NOTE | 2024-12-24 19:59 | PC.NURSE ---
assumed care of pt, pt resting in stretcher. no complaints at this time per pt. respirations even and unlabored.
--- NOTE | 2024-12-24 20:41 | MHC.CM.ED ---
CM received consult from Dr. De Jesus to assess what home services this patient has and if she needs more assistance. CM met with patient. A&Ox3. Lives alone. Pt states she feels safe at home and feels she has enough services. She has [facility] and PT services. She has [facility], which come daily for 2-3 hours. She has oxygen from [employer] at 2 Liters. She has MOW. She has a walker and Wheel chair, however she has been essentially bedridden for 2 years since she fractured her hip. She wears adult briefs. She was in [facility] on 11/26-11/27. At that time PT recommended STR, however patient refused. Pt is continuing to refuse any rehab, as she has home services. Pt will remain overnight under physician obs. Expect d/c to home in the morning. Pt is agreeable. Pt to resume all services. CM will alert [facility] via [facility].
--- NOTE | 2024-12-24 21:45 | PC.NURSE ---
this RN reached out to pharmacy to do a med req on pt, provider at bedside.
--- NOTE | 2024-12-24 21:49 | MHC.EDTECH ---
Patient incontinent of stool. Caro care was provided and a new purewick was put in place.
--- NOTE | 2024-12-24 22:24 | PC.NURSE ---
pt medicated per MAR.
[2024-12-25] VITALS (7 sets, daily range): BP systolic 114–138; BP diastolic 49–73; PULSE 76–93; RESP 18–20; TEMP 36.1–36.6; O2SAT 96–98
--- NOTE | 2024-12-25 01:45 | PC.NURSE ---
report given to Flor DENTON in overflow.
--- NOTE | 2024-12-25 06:10 | PC.NURSE ---
Assumed care of patient at 0300 in ED OVF. Alert and Oriented x 4 [address]L NC[address]wick in place. Bed in lowest setting, locked, alarm and call renteria in place. Plan for patient to d/c home today
--- NOTE | 2024-12-25 08:32 | MHC.CM.ED ---
Addendum entered by Vesna Henry 12/25/24 12:08: Received notification from Yany DENTON, that patient has medical complaints. Will need to be seen by Sabine CUADRA. [facility] changed to 5pm. Original Note: Patient remains in ER overflow. Will d/c home with resumption of services via [facility] at 12pm. Med nec with chart. Patient, Yany DENTON and Sabine CUADRA aware. Continue to monitor for d/c needs.
--- NOTE | 2024-12-25 09:34 | PC.NURSE ---
Pt has been resting quietly. Ate full breakfast and went back to sleep.
--- NOTE | 2024-12-25 09:55 | PC.NURSE ---
Pt is axox3. medicated for lower pelvic/abd pain and lower back pain. is aware that she's going home around noon.
--- NOTE | 2024-12-25 10:24 | PC.NURSE ---
Pt had one large bout of liquid diarrhea. States this is baseline D/T IBS. cleansed and barrier cream applied. perineum and buttocks are red and tender but no open areas. pt has moderatly good bed mobility. states she has lots of help at home. axox3. able to state needs.
[2024-12-25] MEDS: dilTIAZem HCL CD 120 MG CAP.ER.DEG PO (13:18)
--- NOTE | 2024-12-25 18:19 | PC.NURSE ---
This RN called Elizabeth, daughter, P/T d/c. Elizabeth states that patient is fine to be brought home and that she can call her staff when she arrives. Pt is axox3. One small bout of diarrhea just b/f d/c.
== END 2024-12-25 18:24 | disposition home or self-care (01) ==
PROVIDERS: Physician Assistant Medical; Emergency Provider Student in an Organized Health Care Education/Training Program; PCP Internal Medicine
DX: I77.1 Stricture of artery (principal); R10.9 Unspecified abdominal pain; N39.0 Urinary tract infection, site not specified; I71.40 Abdominal aortic aneurysm, without rupture, unspecified; E11.9 Type 2 diabetes mellitus without complications; I10 Essential (primary) hypertension; E78.5 Hyperlipidemia, unspecified; R30.0 Dysuria; Z79.899 Other long term (current) drug therapy
CPT/HCPCS: 36415; 74174; 80053; 81001; 83605; 83690; 85025; 87040; 87086; 87088; 87186; 96361; 96365; 96375; 99284; 99285; J0696; J2270; J2405; Q9967

== ENCOUNTER → 2024-12-24 12:13 | Outpatient (BNV) | payer OTHER, SELFPAY | PROVIDERS: Emergency Provider Student in an Organized Health Care Education/Training Program; PCP Internal Medicine; Visit Provider Radiology Diagnostic Radiology | DX: I71.40 Abdominal aortic aneurysm, without rupture, unspecified (principal); I72.3 Aneurysm of iliac artery; I77.4 Celiac artery compression syndrome; K55.1 Chronic vascular disorders of intestine; K74.60 Unspecified cirrhosis of liver; K57.90 Diverticulosis of intestine, part unspecified, without perforation or abscess without bleeding | CPT/HCPCS: 74174 ==

== ENCOUNTER 2025-01-21 15:21 | Inpatient (IN) | payer OTHER, SELFPAY ==
--- NOTE | ~2025-01-21 | CT_ITS ---
CLINICAL HISTORY: Failure to thrive, vague abdominal pain Exam: Unenhanced CT abdomen and pelvis without multiplanar reformats. Comparison: 12/24/2024. Findings: CT abdomen: Lung bases appear clear. Similar small hiatal hernia. Liver is free of gross focal lesions and intrahepatic ductal dilatation. Gallbladder is absent. Spleen appears unremarkable. Pancreas and adrenal glands appear stable and unremarkable. Kidneys reveal a stable right renal upper pole cyst measuring up to 6.1 cm cross-sectional dimension (4; 256, 10 Hounsfield units density). Additional subcentimeter right renal cysts or hypodensities are stable as well. Kidneys otherwise unremarkable. No urolithiasis or hydroureteronephrosis. No free intraperitoneal fluid or retroperitoneal masses or adenopathy. Abdominal aorta reveals similar infrarenal abdominal aortic aneurysm measuring up to 3.5 cm cross-sectional dimension (measured on 7; 55). No evidence of leak. Bowel loops reveal no abnormal wall thickening or distention. Colonic diverticulosis is present, without CT evidence of diverticulitis. The appendix is not identified, however there is no secondary CT evidence of appendicitis. CT pelvis: Uterus is surgically absent.. Urinary bladder reveals slight perivesical stranding, raising the possibility of cystitis. No pelvic masses, fluid or adenopathy. Osseous structures reveal no new destructive osseous lesions. Impression: 1. Mild perivesical stranding could suggest cystitis, consider correlation with urinalysis. 2. Otherwise, no acute abnormalities or significant interval change compared with the prior exam. No CT explanation for reported history of vague abdominal pain. This document has been electronically signed by: Tony Ratliff MD on 01/21/2025 18:08:10
--- NOTE | ~2025-01-21 | CT_ITS ---
CLINICAL HISTORY: Abnormal chest x-ray Exam: Unenhanced CT chest. Comparison: Same-day chest x-ray. Findings: Lungs are free of focal consolidation. Mild septal thickening is nonspecific although suggest mild interstitial edema. No pulmonary nodules or parenchymal lesions. Airways are patent. No pneumothorax. There are nonspecific pretracheal lymph nodes measuring up to 2.1 cm AP dimension (4; 136 and 162). No other significant mediastinal or hilar masses or adenopathy. A small right pleural effusion is present. No left effusion or pericardial effusion. Images below the diaphragms reveal no acute abnormalities. A partially imaged right renal cyst measuring up to 5.8 cm (4; 38, -4 Hounsfield units density). Osseous structures reveal no destructive osseous lesions. Impression: 1. Mild septal thickening and small right pleural effusion are nonspecific although suggest mild interstitial pulmonary edema. 2. Mild nonspecific mediastinal adenopathy. This document has been electronically signed by: Tony Ratliff MD on 01/21/2025 20:13:09
--- NOTE | ~2025-01-21 | CT_ITS ---
EXAMINATION: CT ABDOMEN AND PELVIS WITH CONTRAST CLINICAL INFORMATION: Bilateral lower quadrant abdominal pain, also right upper quadrant. 84-year-old female. COMPARISON: Numerous priors, most recently 01/21/2025. TECHNIQUE: Multidetector volumetric images were obtained from the superior aspect of the liver through the pubic symphysis following administration 100 mL of Omnipaque 350 intravenous contrast. Sagittal and coronal reformatted images were obtained on the technologist's workstation. Oral contrast: No This CT examination was performed using dose optimization techniques as appropriate, variously including the following: *Automated exposure control *Adjustment of mA and/or kV according to patient size (this includes techniques or standardized protocols for targeted exams where dose is matched to indication/reason for exam; i.e. extremities or head) *Use of iterative reconstruction technique FINDINGS: LUNG BASES: There is segmental consolidation in the posterior right lower lobe, without effusion. There is subsegmental atelectasis in the left lower lobe. There is moderate cardiomegaly. There is no pericardial effusion. There is significant right atrial enlargement. Small to moderate size type I hiatus hernia. LIVER, GALLBLADDER, AND BILIARY TREE: The liver is normal in size. There is mild macrolobulation of the left hepatic lobe. No suspicious focal lesion. There is diffuse fatty infiltration present. There is no significant intrahepatic biliary dilatation. There is marked extrahepatic dilatation of the common hepatic duct and common bile duct, stable from prior exams. The common hepatic duct measures up to 19 mm in diameter. Gallbladder is surgically absent. PANCREAS: Moderate fatty atrophy. No inflammation. Otherwise normal. SPLEEN: Unremarkable. ADRENAL GLANDS: Unremarkable. KIDNEYS AND URETERS: There are numerous cysts both kidneys. The largest cyst is in the right kidney upper pole, measuring approximately 5.7 x 4.4 cm in axial plane. There is patchy cortical scarring in both kidneys. No hydronephrosis or hydroureter. No calculus. No mass. BLADDER: Poorly distended. There is mucosal enhancement and wall thickening suggestive of cystitis. There is mild pericystic fat stranding. GASTROINTESTINAL TRACT: Moderate-sized type I hiatus hernia. The remainder of the stomach decompressed. Duodenum appears grossly normal. The small bowel is normal in caliber, course, and appearance. The appendix is not seen. There is no CT evidence of appendicitis. The colon demonstrates scattered diverticula, most notable in the descending and sigmoid colon . No inflammation, wall thickening, or mass identified. ABDOMINAL WALL: Obesity. There is mild anasarca in the flank regions. There is atrophy of the pelvic girdle musculature. LYMPH NODES: There is no abnormal lymphadenopathy. VASCULAR: Extensive atheromatous plaque of the aorta and arterial vessels present. There is a chronic dissection versus plaque ulceration in the infrarenal aorta (series 3, images 33-34). This is stable. Aorta is tortuous. There is a small 3.2 cm infrarenal fusiform aortic aneurysm, unchanged in diameter. There is mild aneurysmal dilatation of both common iliac arteries, stable. PELVIC VISCERA: There has been a hysterectomy. There are no adnexal masses. OSSEOUS STRUCTURES: There is a levoconvex lumbar scoliosis with extensive degenerative spondylosis. There has been ORIF of a right intertrochanteric hip fracture with intramedullary higinio and compression screw in the femoral head. There is no definite lytic or blastic bone lesion present. CT/CT abdomen pelvis w IV con IMPRESSION: 1. Wall thickening of the urinary bladder with mucosal enhancement suggestive of cystitis. 2. Otherwise, no definite acute finding in the abdomen or pelvis. 3. There is new segmental consolidation in the right lower lobe posteriorly, which could represent pneumonia in the appropriate clinical setting. 4. Severe aortic atherosclerotic disease with a infrarenal chronic dissection versus large plaque ulceration, stable from the prior examinations. Fusiform aneurysm in the infrarenal region measuring 3.2 cm, stable. 5. Numerous chronic findings which are stable from the prior examinations. Electronically signed by: Shaun Miles MD 01/27/2025 04:12 PM [facility]
--- NOTE | ~2025-01-21 | XR_ITS ---
EXAMINATION: XR CHEST CLINICAL INFORMATION: Failure to thrive, CP COMPARISON: November 26, 2024 TECHNIQUE: Frontal view of the chest was obtained. FINDINGS: Dextro scoliosis is again noted in the upper lumbar junction. There is moderate degenerative change with osteophytes involving the right humeral head are Left shoulder arthroplasty is stable.. Distal clavicle has been resected on the left. Enlargement of the cardiac silhouette is again noted. There is diffuse groundglass density and increased reticular markings in the right lung. XR/XR chest 1V IMPRESSION: Cardiomegaly. The right lung shows increased reticular markings and groundglass density which in part may be due to overlying soft tissues/body habitus but underlying acute pulmonary process such as early changes from interstitial edema or atypical/viral pneumonia is not ruled out. Electronically signed by: Melvin Martinez MD 01/21/2025 04:46 PM [facility]
--- NOTE | ~2025-01-21 | CT_ITS ---
CLINICAL HISTORY: severe low back pain CT lumbar spine without contrast Comparison: CT abdomen and pelvis 01/21/2025 Findings: Lumbar spine lordosis is maintained. Mild S shaped thoracolumbar scoliosis. Vertebral body heights are preserved. No acute compression fractures. Trace grade 1 L3 on L4 retrolisthesis. Extensive multilevel endplate, discogenic and facet arthropathy most notably L2-L3 and L3-L4. Moderate narrowing of spinal canal at L1-L2 moderate narrowing of right-sided neural foramina at L2-L3 and L3-L4 and left-sided neural foramina at L3 -L4 and L4-L5. Arthritic changes throughout bilateral SI joints. Mild dependent bibasilar consolidation. Aneurysmal dilation of the infrarenal abdominal aorta up to 3.1 cm. Impression: 1. No acute lumbar spine fracture or traumatic subluxation. 2. Moderately extensive multilevel lumbar spine arthropathy as detailed above. If patient continues to have persistent worsening symptoms, consider MRI for further evaluation. 3. Additional findings as above. This document has been electronically signed by: Pepe Méndez MD on 01/24/2025 15:31:36
--- NOTE | ~2025-01-21 | XR_ITS ---
EXAMINATION: XR CHEST CLINICAL INFORMATION: hypoxia COMPARISON: 01/21/2025 TECHNIQUE: 2 views of the chest were obtained. FINDINGS: Changes from shoulder replacement are noted on the left, unchanged. Cardiac silhouette is enlarged. There is moderate atherosclerotic ossification in the aortic knob. Increased reticular markings are evident in the right lung on the prior exam have decreased. Overlying soft tissues attenuate the right lung. There is probable left basilar increased density. XR/XR chest 2V IMPRESSION: Improving reticular density in the right lung. Left basilar density probably represents atelectasis, pneumonia is not ruled out. Cardiomegaly. Electronically signed by: Melvin Martinez MD 01/26/2025 10:57 AM [facility]
--- NOTE | ~2025-01-21 | XR_ITS ---
CLINICAL HISTORY: Sob 1 view chest x-ray. Comparison: CT/REG/SR - CT CHEST WO IV CON - 01/21/25 19:25 EST CR/SR - XR CHEST 1 VIEW - 01/21/25 16:33 EST Findings: Normal lung volumes. Stable interstitial thickening. No pneumothorax or pleural effusion. Stable cardiomegaly with passive venous congestion. Unfolding of the thoracic aorta stable. No acute fracture. Impression: 1. Cardiomegaly with passive venous congestion and interstitial thickening remains stable This document has been electronically signed by: Dexter Gonzales MD on 01/31/2025 10:56:49
[2025-01-21 15:24] VITALS: BP 144/87; PULSE 105; PULSE 107; RESP 18; TEMP 36.4; O2SAT 96; O2SAT 98; BMI 41.6
[2025-01-21 15:30] VITALS: BP 174/70; PULSE 80; O2SAT 94
--- NOTE | 2025-01-21 15:42 | ECG_ITS ---
Test Reason : Failure to thrive Blood Pressure : */* mmHG Vent. Rate : 111 BPM Atrial Rate : * BPM P-R Int : * ms QRS Dur : 88 ms QT Int : 328 ms P-R-T Axes : * 116 96 degrees QTcB Int : 446 ms Atrial fibrillation with rapid ventricular response Right axis deviation Septal infarct (cited on or before 06-Sep-2023) Abnormal ECG When compared with ECG of 26-Nov-2024 16:15, Atrial fibrillation has replaced Sinus rhythm Referred By: Angel Story Electronically Signed By: EMANUEL JULIAN
--- NOTE | 2025-01-21 15:44 | ED_ITS ---
HPI - General Adult General Chief complaint: Failure to Thrive Stated complaint: failure to thirve Time Seen by Provider: 01/21/25 15:28 Source: patient, EMS and old records reviewed Mode of arrival: EMS Limitations: no limitations History of Present Illness ED Provider: DR. Story HPI narrative: 84-year-old female pertinent history of chronic hypoxemic respiratory failure, COPD, AFib on Eliquis, non insulin DM, CRISTA noncompliant with CPAP, CAD, CHF who came by ambulance from home for evaluation of abdominal pain, generalized weakness, and difficulty breathing with lower extremity swelling and edema. patient normally lives home, bed ridden, get help by home administrator 14 hours a day. Patient is complaining of both abdominal and chest pain, patient overall is a poor historian unable to explain the pain. Related Data Home Medications ?Medication ?Instructions ?Recorded ?Confirmed cholecalciferol (vitamin D3) 25 25 mcg PO DAILY 07/14/23 mcg (1,000 unit) capsule (Vitamin D3) dicyclomine 10 mg capsule 10 mg PO Q6H PRN Abdominal P ain 12/01/19 12/24/24 aspirin 81 mg tablet,delayed 81 mg PO DAILY 07/08/23 0 07/14/23 release acetaminophen 650 mg 650 mg PO Q8H PRN Pain 07/1307/14/23 tablet,extended release ipratropium 0.5 mg-albuterol 3 mg 3 ml inhalation QID PRN Shortness 07/14/23 07/14/23 (2.5 mg base)/3 mL nebulization Of Breath Or Wheezing soln fluticasone 500 mcg-salmeterol 50 1 inh inhalation BID 11/27/24 mcg/dose blistr powdr for inhalation (Wixela Inhub) Previous Rx's ?Medication ?Instructions ?Recorded stair lift and ramp #1 ea 08/31/20 blood-glucose meter (OneTouch #1 ea 09/14/20 Ultra2 Meter kit) blood-glucose meter (OneTouch #1 ea 09/16/20 UltraMini kit) Wheelchair Ramp #1 ea 10/06/20 Transfer Bench #1 ea 11/01/20 blood pressure monitor (Blood #1 ea 11/03/20 Pressure Kit) Nebulizer supplies #3 ea 03/22/21 [facility] Bed #1 ea 03/22/21 diagnosis I50.32 Air mattress #1 ea 11/27/21 nitroglycerin 0.4 mg sublingual 0.4 mg sublingual Q5M PRN for 02/22/22 tablet angina 90 days #25 tabs FOUR WHEEL SCOOTER #1 ea 06/08/22 pads for bedsores 7 7/8 X 11 3/4 #50 ea 07/10/22 pressure release mattress #1 ea 11/13/22 blood sugar diagnostic (PC Network ServicesTouch #100 strips 01/30/23 Ultra Test strips) lancets #100 ea 02/09/23 compress.stocking,knee,reg,lrg #12 ea 07/01/23 lancets 33 gauge (PC Network ServicesTouch Delica #100 ea 07/01/23 Plus Lancet) loperamide 2 mg capsule (Imodium 2 mg PO Q6H PRN loose stool #14 08/27/23 A-D) caps carbamide peroxide 6.5 % ear drops 10 drp otic (ears) DAILY 4 days 08/30/23 (Debrox) #15 mL polymyxin B sulfate 10,000 1 drp ophthalmic (eye) QID 7 days 09/03/23 unit-trimethoprim 1 mg/mL eye drops #10 mL ondansetron 4 mg disintegrating 4 mg PO Q8H PRN nausea and 09/10/23 tablet vomiting #20 tabs thiamine HCl (vitamin B1) 100 mg 100 mg PO DAILY #90 t abs 09/24/23 tablet POWER WHEELCHAIR #1 ea 10/08/23 ketoconazole 2 % shampoo 1 appl topical 2XW #120 mL 1 nystatin 100,000 unit/gram topical 1 appl topical TID #30 grams 11/19/23 cream gabapentin 100 mg capsule 100 mg PO BEDTIME #90 caps 1 meclizine 12.5 mg tablet 12.5 mg PO BID PRN for motio n 01/06/24 sickness #60 tabs UNDERPADS Disposable BED #3 ea 01/27/24 pads overnight- large #2 ea 01/27/24 white petrolatum 71.3 % topical 1 appl topical BID-TID PRN dry 01/27/24 ointment (Desitin Multi-Purpose) skin #99 grams dexlansoprazole 30 mg 30 mg PO DAILY #90 caps 01/18 05/11 capsule,biphase delayed release ezetimibe 10 mg tablet 10 mg PO DAILY #90 tabs 01/18 05/11 levothyroxine 100 mcg tablet 100 mcg PO DAILY@0600 #90 tabs 01/31/24 cyanocobalamin (vitamin B-12) 1,000 mcg IM Q4W 90 days #4 mL 02/26/24 1,000 mcg/mL injection solution Purewick external catheter #1 ea 03/02/24 cetirizine 10 mg tablet 10 mg PO DAILY PRN for aller gies 04/26/24 #90 tabs nitrofurantoin 100 mg PO Q12H 7 days #14 ca ps 04/30/24 monohydrate/macrocrystals 100 mg capsule (Macrobid) lactobacillus combination no.9 4 4,000 mmu cells PO DA MONCHO #30 caps 05/01/24 billion cell capsule (Adult 50 Plus Probiotic) albuterol sulfate 90 mcg/actuation 2 puff PO Q4H PRN f or respiratory 05/08/24 aerosol inhaler distress #8.5 ea syringe with needle, safety 3 mL #100 ea 05/27/24 25 gauge x 5/8 (BD Integra Syringe) ascorbic acid (vitamin C) 500 mg 500 mg PO BID #180 ta bs 06/20/24 tablet ondansetron HCl 8 mg tablet 8 mg PO Q12H PRN nausea an d 06/20/24 vomiting #30 tabs albuterol sulfate 2.5 mg/3 mL 2.5 mg (3 mL) inhalation Q6H PRN 07/06/24 (0.083 %) solution for nebulization for wheezing #180 mL atorvastatin 80 mg tablet 80 mg PO BEDTIME #90 tabs clotrimazole 1 % topical cream 1 appl topical BID PRN Rash #45 08/19/24 grams dulaglutide 3 mg/0.5 mL 3 mg (0.5 mL) subcut SA #2 m L 09/07/24 [facility] replacement mattress for her #1 ea 09/24/24 hospital bed Half bed rail for hospital bed #2 ea 09/29/24 diltiazem HCl 120 mg 120 mg PO DAILY #90 caps 03/14 capsule,extended release 24 hr (Cardizem CD) duloxetine 30 mg capsule,delayed See Rx Instructions . Route 10/22/24 release .COMPLEX #90 caps cdigkdkd-mjesybgaq-vhqpqbyja 3.5 4 drp otic (ear) righ t Q8H 5 days 10/29/24 mg/mL-10,000 unit/mL-1 % ear #10 mL solution metoprolol succinate 100 mg 100 mg PO DAILY #30 tabs 0 11/05/24 tablet,extended release 24 hr hospital bed #1 ea 12/04/24 cephalexin 500 mg capsule 500 mg PO Q6H 7 days #28 cap s 12/24/24 Reclining wheelchair #1 ea 12/25/24 apixaban 5 mg tablet (Eliquis) 5 mg PO BID 90 days #18 0 tabs 12/27/24 furosemide 40 mg tablet 20 - 40 mg (0.5 - 1 x 40 mg) PO 12/27/24 DAILY #90 tabs tramadol 50 mg tablet 50 mg PO Q6H PRN Pain #30 ta bs 01/04/25 Allergies Allergy/AdvReac Type Severity Reaction Status Date / Time morphine (MORPHINE) Allergy Unknown RASH Verified 01/21/25 15:34 pregabalin (From LYRICA) Allergy Unknown NAUSEA, Verified 01/21/25 15:34 felt high on drugs Review of Systems 2 Review of Systems: All other systems are reviewed and are negative Constitutional: Reports as per HPI and Reports no additional constitutional complaints Eyes: Reports as per HPI and Reports no additional eye complaints Reports system reviewed and no additional complaints, except as documented Cardiovascular: Reports as per HPI and Reports no additional cardiovascular complaints Respiratory: Reports as per HPI and Reports no additional respiratory complaints Gastrointestinal: Reports as per HPI and Reports no additional gastrointestinal complaints Genitourinary: Reports no additional female genitourinary complaints Musculoskeletal: Reports no additional musculoskeletal complaints Skin/Breast: Reports system reviewed and no additional complaints, except as docu Psychiatric: Reports no additional psychiatric complaints Endocrine: Reports no additional endocrine complaints Hematologic/Lymphatic: Reports no additional hematologic/lymphatic complaints Allergic/Immunologic: Reports no additional allergic/immunologic complaints Reports system reviewed and no additional complaints, except as documented and Reports Abnormal speech present PMFSH Past Medical History Medical History COPD (chronic obstructive pulmonary disease) Strong odor of stools Dysuria Pulmonary nodules Diarrhea Weakness Bradycardia Ingrowing nail Impacted cerumen of right ear Urinary incontinence Impacted cerumen of right ear Pulmonary nodule Chronic anticoagulation First degree atrioventricular block Atrial fibrillation Chronic pain syndrome 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 Low back pain Respiratory failure with hypoxia and hypercapnia Lower extremity weakness Nasal congestion Otitis externa Coronary artery disease Restrictive lung disease Diarrhea History of spinal stenosis Fibromyalgia Obesity (BMI 30-39.9) Carpal tunnel syndrome Abdominal aortic aneurysm Hypothyroid Obstructive sleep apnea Congestive heart failure Pernicious anemia Paroxysmal atrial fibrillation DVT (deep venous thrombosis) Diverticulitis GERD (gastroesophageal reflux disease) HTN (hypertension) Clostridium difficile colitis CAD (coronary artery disease) Hypercholesterolemia Surgical History History of hip surgery S/P BREANN-BSO (total abdominal hysterectomy and bilateral salpingo-oophorectomy) History of arthroplasty of left shoulder Hx of cholecystectomy H/O angioplasty Hx of appendectomy H/O cardiac catheterization Family History Family History Father Hypertension CVD (cardiovascular disease) Mother Colon cancer Sister Leukemia Sister Colon cancer Son Lung cancer Colon polyps Social History Social History Household Members: None Household Members Other:: self Housing: Apartment Do you presently have visiting nurse or other home services: Yes (Nurses to prep meds. 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 everyday 3x a day) Alcohol intake: never Patient Tobacco Use Status: Former Tobacco user Tobacco use type: Cigarette Years Smoked: stopped 2009 e-Cigarette/Vaping Use: Never Used Second Hand Smoke Exposure: Yes Advance Directives: Yes Advance Directives on File: Yes Advance Directives Date on File: 10/10/21 service: No Current occupational status: retired Current occupational exposures/hazards: No Cognitive needs: No Hearing needs: No Vision needs: Yes Physical Exam ED Vital Signs: Vital Signs - 24 hr 01/21/25 15:24 01/21/25 18:01 01/21/25 18:32 Temperature 97.5 F 97.6 F Pulse Rate 107 H 102 H Respiratory Rate 18 22 H Blood Pressure 144/87 H 148/75 H 148/75 H Pulse Oximetry 96 97 Oxygen Delivery Method Nasal Cannula Nasal Cannula Oxygen Flow Rate 2 01/21/25 19:43 Temperature Pulse Rate 103 H Respiratory Rate Blood Pressure 160/113 H Pulse Oximetry Oxygen Delivery Method Oxygen Flow Rate BMI result Body Mass Index 41.6 Vital signs have been reviewed and appear to be correct. Blood pressure elevated. Heart rate elevated. Respiratory rate normal. Temperature normal. Oxygen saturation normal. Appearance: Alert. Oriented X3. No acute distress. Head: Normal external exam. Normocephalic. Atraumatic. No Woods signs noted. No raccoon eyes noted Eyes: PERRLA. EOMI. Conjunctiva and sclera normal. Eyelids normal. ENT: TM's Normal. Pharynx normal. Uvula midline. Moist mucous membranes. No trismus noted. No drooling noted. No muffled voice noted. Neck: Normal inspection. Neck supple. FROM. No adenopathy. Thyroid Normal. No meningeal signs. No neck mass noted. CVS: Normal heart rate and rhythm. Heart sound normal. No murmurs noted. Pulses normal throughout. Respiratory: No respiratory distress. Painless inspiration. Breath sounds normal. No wheezes/rales/rhonchi noted. Chest nontender. No accessory muscle usage noted or decreased air movement noted. Abdomen: Soft and nontender. Bowel sounds normal in all 4 quadrants. No distention noted. No organomegaly noted. No visible injury noted. Back: No CVA tenderness. Full range of motion noted. Skin: Skin warm and dry. Normal skin color. Normal skin turgor. No rashes/lesions/lacerations noted. Extremities: No lower extremity edema. Extremities exhibit normal range of motion. Extremities nontender. Neuro: Oriented X 3. Cranial nerve exam: II-XII are grossly intact No motor deficit. No sensory deficit. Reflexes normal. Course Reevaluation(s) Reevaluation #1: 84-year-old female came in with shortness of breath and lower extremity swelling, patient is in CHF will diurese with Lasix. Abdominal pain, CT abdomen pelvis is unremarkable. Time: 19:35 Medications Administered Generic Name Dose Route Start Last Admin Trade Name Freq PRN Reason Stop Dose Admin Apixaban 5 mg 01/21/25 21:00 01/21/25 20:06 Apixaban 5 Mg Tablet PO 5 mg BID DANIEL Administration Insulin Human Lispro 0 unit 01/21/25 21:00 01/21/25 20:10 Insulin Lispro 100 Unit/Ml 3 Ml Vial SUBCUT Not Given QIDACHS [facility] Protocol Discontinued Medications Generic Name Dose Route Start Last Admin Trade Name Remi PRN Reason Stop Dose Admin Furosemide 40 mg 01/21/25 18:24 01/21/25 18:32 Furosemide 40 Mg/4 Ml Vial IVPUSH 01/21/25 18:25 40 mg ONCE ONE Administration Protocol Nitroglycerin 0.5 inch 01/21/25 19:34 01/21/25 19:43 Nitroglycerin 2 % Oint 1 Gm Packet TRANSDERMA 01/21/25 19:35 0.5 inch ONCE ONE Administration Medical Decision Making Differential Diagnosis Differential Diagnoses: The differential diagnosis associated with the presentation includes (CHF, pneumonia, pneumothorax, pleural effusion, electrolyte derangement, severe anemia, UTI, ACS.) Admission/Observation Consideration of admission/observation: Escalation of care including admission/observation considered Consult Healthcare Provider Management of the patient was discussed with: Hospitalist (Dr. Poe) Lab Data MDM Lab Attestation statement: I reviewed the patient's lab results. 01/21/25 16:19 01/21/25 17:33 Labs: Lab Results 01/21/25 01/21/25 01/21/25 Range/Units 16:19 16:29 17:33 WBC 7.3 (4.8-10.8) X10*3/uL RBC 4.53 (4.20-5.50) X10*6/uL Hgb 12.4 (12.0-16.0) g/dl Hct 40.8 (37.0-47.0) % MCV 90.1 (80.0-98.0) fL MCH 27.4 (27.0-33.0) pg MCHC 30.4 L (31.0-35.0) g/dl RDW 14.8 (11.0-16.0) % Plt Count 235 (160-400) X10*3/uL MPV 9.6 (9.4-12.3) fL Immature Gran % (Auto) 1.0 H (0.0-0.4) % Neut % (Auto) 68.8 (45-73) % Lymph % (Auto) 20.8 (20-40) % Grimes % (Auto) 8.6 (2-11) % Eos % (Auto) 0.4 (0-4) % Baso % (Auto) 0.4 (0-2) % Lymph # (Auto) 1.5 (1.2-4.9) X10*3/uL Grimes # (Auto) 0.6 (0.1-1.2) X10*3/uL Eos # (Auto) 0.0 (0.0-0.4) X10*3/uL Baso # (Auto) 0.0 (0.0-0.2) X10*3/uL Abs Immat Gran (auto) 0.07 H (0.00-0.03) X10*3/uL Absolute Neuts (auto) 5.1 (2.0-8.3) x10*3/uL Absolute Nucleated RBC 0.000 (0.0-0.012) X10*3/uL Nucleated RBC % (auto) 0.0 (0.0-0.2) /100WBC Sodium 143 (135-145) mmol/L Potassium 4.3 (3.3-5.1) mmol/L Chloride 106 (96-108) mmol/L Carbon Dioxide 31 H (22-29) mmol/L Anion Gap 10 L (12-20) BUN 16 (9-16) mg/dL Creatinine 0.74 (0.5-1.4) mg/dL Estim Creat Clear Calc 61.3 Estimated GFR > 60 Random Glucose 92 (60-115) mg/dL Lactic Acid 1.3 (0.5-2.0) mmol/L Calcium 9.2 (8.4-10.2) mg/dL Total Bilirubin 0.5 (0.0-1.0) mg/dL Direct Bilirubin 0.2 (0.0-0.5) mg/dL AST 16 (5-31) U/L ALT 7 (0-31) U/L Alkaline Phosphatase 151 H (39-117) U/L Troponin I High Sens 8.5 (<3.5-17.0) ng/L NT-Pro-B Natriuret Pep 4289.4 H (<300) pg/mL Total Protein 6.6 (6.5-8.0) g/dL Albumin 3.7 (3.5-5.0) g/dL Urine Color Urine Appearance Urine pH (5.0-9.0) Ur Specific [place] (1.005-1.025) Urine Protein (Neg-Trace) mg/dL Urine Glucose (UA) (Negative) mg/dL Urine Ketones (Negative) mg/dL Urine Blood (Negative) Urine Nitrite (Negative) Ur Leukocyte Esterase (Negative) Urine RBC (0-2) /HPF Urine WBC (0-5) /HPF Ur Squamous Epith Cells (0-2) /HPF Calcium Oxalate Crystal Urine Bacteria (None Seen) Hyaline Casts (0-2) /LPF Influenza Type A (PCR) NEGATIVE (Negative) Influenza Type B (PCR) NEGATIVE (Negative) RSV RNA Qual (PCR) NEGATIVE (Negative) SARS-CoV-2 RNA (RT-PCR) NEGATIVE (Negative) 01/21/25 Range/Units 18:02 WBC (4.8-10.8) X10*3/uL RBC (4.20-5.50) X10*6/uL Hgb (12.0-16.0) g/dl Hct (37.0-47.0) % MCV (80.0-98.0) fL MCH (27.0-33.0) pg MCHC (31.0-35.0) g/dl RDW (11.0-16.0) % Plt Count (160-400) X10*3/uL MPV (9.4-12.3) fL Immature Gran % (Auto) (0.0-0.4) % Neut % (Auto) (45-73) % Lymph % (Auto) (20-40) % Grimes % (Auto) (2-11) % Eos % (Auto) (0-4) % Baso % (Auto) (0-2) % Lymph # (Auto) (1.2-4.9) X10*3/uL Grimes # (Auto) (0.1-1.2) X10*3/uL Eos # (Auto) (0.0-0.4) X10*3/uL Baso # (Auto) (0.0-0.2) X10*3/uL Abs Immat Gran (auto) (0.00-0.03) X10*3/uL Absolute Neuts (auto) (2.0-8.3) x10*3/uL Absolute Nucleated RBC (0.0-0.012) X10*3/uL Nucleated RBC % (auto) (0.0-0.2) /100WBC Sodium (135-145) mmol/L Potassium (3.3-5.1) mmol/L Chloride (96-108) mmol/L Carbon Dioxide (22-29) mmol/L Anion Gap (12-20) BUN (9-16) mg/dL Creatinine (0.5-1.4) mg/dL Estim Creat Clear Calc Estimated GFR Random Glucose (60-115) mg/dL Lactic Acid (0.5-2.0) mmol/L Calcium (8.4-10.2) mg/dL Total Bilirubin (0.0-1.0) mg/dL Direct Bilirubin (0.0-0.5) mg/dL AST (5-31) U/L ALT (0-31) U/L Alkaline Phosphatase (39-117) U/L Troponin I High Sens (<3.5-17.0) ng/L NT-Pro-B Natriuret Pep (<300) pg/mL Total Protein (6.5-8.0) g/dL Albumin (3.5-5.0) g/dL Urine Color Yellow Urine Appearance Cloudy Urine pH 6.0 (5.0-9.0) Ur Specific [place] 1.020 (1.005-1.025) Urine Protein 100 (2+) H (Neg-Trace) mg/dL Urine Glucose (UA) Negative (Negative) mg/dL Urine Ketones Negative (Negative) mg/dL Urine Blood Small (1+) H (Negative) Urine Nitrite Negative (Negative) Ur Leukocyte Esterase Negative (Negative) Urine RBC >20 H (0-2) /HPF Urine WBC 0-5 (0-5) /HPF Ur Squamous Epith Cells 0-2 (0-2) /HPF Calcium Oxalate Crystal Present Urine Bacteria None Seen (None Seen) Hyaline Casts 11-20 (0-2) /LPF Influenza Type A (PCR) (Negative) Influenza Type B (PCR) (Negative) RSV RNA Qual (PCR) (Negative) SARS-CoV-2 RNA (RT-PCR) (Negative) Independent Interpretation I performed an independent interpretation of an: CT Scan (Abdomen pelvis:1. Mild perivesical stranding could suggest cystitis, consider correlation with urinalysis. 2. Otherwise, no acute abnormalities or significant interval change compared with the prior exam. No CT explanation for reported history of vague abdominal pain.) Radiology Impression Discussion of test interpretation with radiology: I have reviewed the radiologist's reading. Critical Care Time Critical Care Time Critical Care Time: Yes Total Critical Care Time: 60 Attestation: The patient was critically ill with a high probability of imminent or life- threatening deterioration. I spent greater than 30 minutes of discontinuous time evaluating the patient, delivering critical care at the bedside, discussing evaluating data with consultants. Critical care time does not include time spent performing separately billable procedures or teaching. Time spent performing critical care was 60 minutes. Discharge Plan Discharge Clinical Impression: Congestive heart failure Patient Disposition: Admitted As Inpatient
[2025-01-21 16:30] LABS: MANUAL DIFF FLAG NO
[2025-01-21 16:34] LABS: Hematocrit 40.8 % (37.0-47.0); Hemoglobin 12.4 g/dl (12.0-16.0); Imm Gran Abs Auto 0.07 X10*3/uL (0.00-0.03); Imm Gran Pct Auto 1.0 % (0.0-0.4); Lymphocytes Absolute Auto 1.5 X10*3/uL (1.2-4.9); Mean Corpuscular HGB Conc 30.4 g/dl (31.0-35.0); Mean Corpuscular Hemoglobin 27.4 pg (27.0-33.0); Mean Corpuscular Volume 90.1 fL (80.0-98.0); NRBC Abs Auto 0.000 X10*3/uL (0.0-0.012); NRBC Pct Auto 0.0 /100WBC (0.0-0.2); Platelet Count 235 X10*3/uL (160-400); Red Blood Count 4.53 X10*6/uL (4.20-5.50); White Blood Count 7.3 X10*3/uL (4.8-10.8)
--- NOTE | 2025-01-21 16:46 | MHC.EDTECH ---
attempted to do ekg, and redraw pt not in the room.
[2025-01-21 16:52] LABS: Troponin-I High Sensitivity 8.5 ng/L (<3.5-17.0)
[2025-01-21 17:19] LABS: Resp Syncy Virus RNA Qual PCR NEGATIVE (Negative); SARS COV2 PCR INHOUSE NEGATIVE (Negative)
--- NOTE | 2025-01-21 17:28 | PC.NURSE ---
spoke with pt albert olivas- updated on plan of care- all questions answered at this time
[2025-01-21 17:54] LABS: Alanine Aminotransferase 7 U/L (0-31); Albumin Level 3.7 g/dL (3.5-5.0); Alkaline Phosphatase 151 U/L (39-117); Anion Gap 10 (12-20); Aspartate Amino Transferase 16 U/L (5-31); Blood Urea Nitrogen 16 mg/dL (9-16); Calcium 9.2 mg/dL (8.4-10.2); Carbon Dioxide 31 mmol/L (22-29); Chloride 106 mmol/L (96-108); Creatinine Clr Calc Pharmacy 61.3; Estimated Glomerular Filt Rate > 60; Potassium 4.3 mmol/L (3.3-5.1); Sodium 143 mmol/L (135-145); Total Protein 6.6 g/dL (6.5-8.0)
[2025-01-21 18:01] VITALS: BP 148/75; PULSE 102; RESP 22; TEMP 36.4; O2SAT 97
[2025-01-21 18:11] LABS: Appearance Urine Cloudy; Glucose Urine UA Negative (Negative); PH 6.0 (5.0-9.0); Specific Gravity - Urine 1.020 (1.005-1.025); UMIC TRIGGER UACC YES
[2025-01-21 18:32] VITALS: BP 148/75
[2025-01-21] MEDS: Furosemide 40 MG/4 ML VIAL IVPUSH (18:32)
[2025-01-21 19:43] VITALS: BP 160/113; PULSE 103
[2025-01-21] MEDS: Nitroglycerin 2 % Oint 1 GM Packet 0.5 INCH TRANSDERMA (19:43)
[2025-01-21 20:12] LABS: Glucose, Whole Blood 80 mg/dL (60-115)
[2025-01-21 21:11] VITALS: BP 124/66; PULSE 104; RESP 20; TEMP 36.4; O2SAT 99
--- OUTSIDE RECORDS SUMMARY | 2025-01-21 22:13 | XMS_ITS | Encounter Summary ---
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 Phone Unavailable Primary Care Provider Unavailabl e Encounter Details Date Type Department Care Team (Latest Contact Info) Description 04/09/2017 Ancillary Orders [facility] [address] [place] [address] [place] [address] Sanya Benítez, CONNOR [address] [facility] [address] [place] [phone] Sick sinus syndrome; Coronary artery disease involving [place] coronary artery of [place] heart, angina presence unspecified Social History Tobacco [...] Sinoatrial node dysfunction Coronary artery disease involving [place] coronary artery of [place] heart, angina presence unspecified Sick sinus syndrome Sinoatrial node dysfunction Coronary artery disease involving [place] coronary artery of [place] heart, angina presence unspecified documented in this encounter Additional Source Comments The information contained in this document represents components of the legal health record. It is not the complete legal health record.[facility]
--- OUTSIDE RECORDS SUMMARY | 2025-01-21 22:13 | XMS_ITS | Clinical Summary ---
Author Organization 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 It is not the complete legal health record.[facility]
--- OUTSIDE RECORDS SUMMARY | 2025-01-21 22:13 | XMS_ITS | Encounter Summary ---
Author Organization [facility] Address [address] [place] [address] Phone Care Team Providers Care Director Biologics Name Role Phone Unavailable Primary Care Provider Unavailabl e Encounter Details Date Type Department Care Team (Late st Contact Info) Description 04/09/2017 Ancillary Orders [facility] [address] [place] [address] [address], [address] [place] [address] Sanya Benítez, CONNOR [address] [facility] [address] [place], [place] [phone] Social History Tobacco Use Types Packs/Day Years [...] is not the complete legal health record.[facility]
--- NOTE | 2025-01-21 22:14 | PC.NURSE ---
spoke with pt albert olivas updated on plan of care- all questions answered at this time
--- OUTSIDE RECORDS SUMMARY | 2025-01-21 22:14 | XMS_ITS | Data Portability ---
Author Organization [facility], Main Office Address [address], [address] [place] [address] Care Team Providers Care Reading Aide Name Role Phone RUSTY ROSEN 1ST FLOOR OTHER [phone] FLAVIA PURCELL Primary Care Provider Assessment Encounter [...] and Address Organization Details Recorded Time Dizziness 374101153 Active 2021 Not Available [facility] 4 23:47:36 Vertebral artery occlusion 501114716 Active 2021 Not Available [facility] 4 23:47:36 Aneurysm of middle cerebral artery 647473259 Active 2021 Not Available [facility] 4 23:47:36 Low blood pressure 79676528 Active 2021 Not Available [facility] 4 23:47:36 Chronic respiratory failure 00601206 Active 2021 Not Available [facility] 4 23:47:36 Hypothyroidis m 84437599 Active 2021 Not Available [facility] 4 23:47:36 Diabetes mellitus 60780617 Active 2021 Not Available [facility] 4 23:47:36 Anemia 947854783 Active 2021 Not Available [facility] 4 23:47:36 Vitamin D deficiency 67757655 Active 2021 Not Available [facility] 4 23:47:36 Paroxysmal atrial fibrillation 810105314 Active 2021 Not Available [facility] 4 23:47:36 Falls 909807574 Active 2021 Not Available [facility] 4 23:47:36 Coronary arteriosclero sis 53070005 Active 2021 Not Available [facility] 4 23:47:36 Obesity 019772546 Active 2021 Not Available [facility] 4 23:47:36 Obstructive sleep apnea syndrome 72043604 Active 2021 Not Available [facility] 4 23:47:36 Essential hypertension 61286255 Active 2021 Not Available [facility] 4 23:47:36 Gastroesophag eal reflux disease without esophagitis 987174948 Active 2021 Not Available [facility] 4 23:47:36 Congestive heart failure 53395109 Active 2021 Not Available [facility] 4 23:47:36 Fibromyalgia 178410142 Active 2021 Not Available [facility] 4 23:47:36 Mixed hyperlipidemi a 814534915 Active 2021 Not Available [facility] 4 23:47:36 Gout 09097423 Active 2021 Not Available [facility] 4 23:47:36 Closed fracture of hip 127647925 Active 2022 Not Available [facility] 4 23:47:36 Nausea 867294431 Active 2023 Not Available [facility] 4 23:47:36 Irritable bowel syndrome with diarrhea 017368093 Active 2023 Not Available [facility] 4 23:47:36 Notes:Some problems listed i n Documents: #[id number], #[id number], #[id number] could not be added to this patient's chart. Please review these documents and add these problems to the patient's chart manually as needed. Problem Notes None recorded. Procedures Surgical History Date Name Laterality Status Provider Name and Address Organization Details Recorded Time appendectomy completed JAMAICA CHAO, RAG GRADER [address], [address], [place], [address], [facility] [employer] [facility] 09/05/2021 14:35:03 Cholecystectomy completed JAMAICA CHAO, RAG GRADER [address], [address], [place], [address], [facility] [employer] 09/05/2021 14:35:12 hysterectomy completed JAMAICA CHAO, RAG GRADER [address], [address], [place], [address], [facility] 09/05/2021 14:35:20 procedure on heart completed JORDAN CHAO RAG GRADER [address], [address], [place], [address], [facility] 09/05/2021 14:36:04 total shoulder replacement completed JAMAICA CHAO, RAG GRADER [address], [address], [place], [address], [facility] 09/05/2021 14:36:27 procedure on vein completed JAMAICA CHAO, RAG GRADER [address], [address], [place], [address], [facility] 09/05/2021 14:36:48 operation on stomach completed JAMAICA CHAO RAG GRADER [address], [address], [place], [address], [facility] 09/05/2021 14:37:08 Imaging Results None recorded. Procedure Notes None recorded. Medical Equipment None Reported. Allergies Allergen ID Allergen Name Allergen Category Reaction Reaction Severity Criticality Documentation Date Start Date Code Code System Note Provider Name and Address Organization Details Recorded Time 90354 morphine medicatio n Not available Not available Not available 09/05/2021 7052 RxNorm JAMAICA CHAO, RAG GRADER [address], [address], [place], [address], [facility] 2 14:28:42 59605 Lyrica medicatio n Not available Not available Not available 09/05/2021 81695 1 RxNorm JAMAICA JEREMIE, RAG GRADER [address] [facility], [address], [place], [address], [employer] 2 14:28:48 Medications Name Sig Start Date Stop Date Status Note LastModified by Organization Details LastModified Time tramadol 50 mg tablet Take 1 tablet every 6 hours by oral route as needed. 023 active Not Available Not Available Not Avai lable Vitals Date Recorded Body height Body temperature Respiratory rate Heart rate Oxygen saturation Systolic And Diastolic Provider Name and Address Organization Details Last Updated DateTime 4 160.02 cm 98.3 [degF] 18 /min 97 /min 97 % 128/61 mm[Hg] RALPHYUNG AGUILAR [address] [facility], [address], [place], [address], [employer] 4 13:10:16 Date Recorded Body height Provider Name an d Address Organization Details Last Updated DateTime 05/01/2023 160.02 cm YUNG CALVILLO [address] [place] [address], [address], [place], [address], [employer] 05/01/2023 15:43:18 Date Recorded Body height Body temperature Heart rate Respiratory rate Systolic And Diastolic Provider Name and Address Organization Details Last Updated DateTime 4 160.02 cm 98 [degF] 77 /min 17 /min 130/72 mm[Hg] RALPHYUNG AGUILAR [address] [facility], [address], [place], [address], [employer] 4 13:03:17 Date Recorded Body height Body temperature Respiratory rate Heart rate Oxygen saturation Systolic And Diastolic Provider Name and Address Organization Details Last Updated DateTime 4 160.02 cm 97.9 [degF] 18 /min 87 /min 96 % 122/72 mm[Hg] YUNG CALVILLO [address] [facility], [address], [place], [address], [employer] 4 00:16:06 Social History Question Answer Notes LastModified by Organizat ion Details LastModified Time Tobacco Smoking Status Former Smoker quit about 1999 Verna Barney MD [address] [facility], [address], [place], [address], [facility] 02/19/2023 18:54:47 Do You Have An [...] 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 HCP On File Information not available [...] 50 mcg/0.25mL dose 1 completed Not Available [facility] 04/08/2023 23:47:37 COVID-19, mRNA, LNP-S, PF, 100 mcg/0.5mL dose or 50 mcg/0.25mL dose 2 completed Not Available [facility] 04/08/2023 23:47:37 Tdap 6 completed Not Available [facility] 04/08/2023 23:47:37 Influenza, split virus, quadrivalent, preservative 1 completed Not Available [facility] 04/08/2023 23:47:37 pneumococcal polysaccharide PPV23 1 completed Not Available [facility] 04/08/2023 23:47:37 pneumococcal polysaccharide PPV23 9 completed Not Available [facility] 04/08/2023 23:47:37 Pneumococcal conjugate PCV 13 0 completed Not Available [facility] 04/08/2023 23:47:37 zoster, unspecified formulation 8 completed Not Available [facility] 04/08/2023 23:47:37 zoster, unspecified formulation 9 completed Not Available [facility] 04/08/2023 23:47:37 zoster, unspecified formulation 6 completed Not Available [facility] 04/08/2023 23:47:37 Influenza, adjuvanted, quadrivalent, PF 3 completed Not Available [facility] 04/08/2023 23:47:37 Past Encounters Encounter ID Performer Location Encounter Start Date Encounter Closed Date Diagnosis/Indication Diagnosis SNOMED-CT Code Diagnosis ICD10 Code Diagnosis IMO Codes Diagnosis Note [id number] YUNG EGAN [address] [address] 09/05/2021 11:46:21 09/07/2021 08:06:00 Dizziness 157450720 R42 meclizine 12.5 mg bid prn monitor Low blood pressure 38962 003 I95.89 lasix 40 mg bid and losartan 50 mg qd discontinu ed in hospital for now monitor b/p and add back as able Vertebral artery occlusion 764933615 I65.02 needs to have a appt with outpatient [facility] neurosurge ry monitor Aneurysm o f middle cerebral artery 235007470 I67.1 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 will need to have outpatient appt with [facility] neurosurge ry [place] 956734734 R29.6 PT/OT eval and treat prn monitor for safety Essential hypertension 01960317 I10 ASA 81 mg qd diltiazem 120 mg qd carvedilol 25 mg bid lasix and losartan discontinu ed-watch to be able to add back monitor b/p and labs Coronary arteriosclerosis 77003427 I25.10 nitro 0.4 mg SL q 5 minutes x3 atorvastat in 40 mg qd ezetimibe 10 mg qd eliquis 5 mg bid ASA 81 mg qd diltiazem 120 mg qd carvedilol 25 mg bid monitor Diabetes mellitus 200394 09 E11.9 carb control diet glucose check bid semaglutid e 1.5 mg sq weekly monitor for s/s of hypo/hyper glycemia monitor A1c Congestive heart failure 45737953 I50.89 was on lasix 40 mg bid-monito r for need to add back monitor weights and s/s of heart failure Chronic re spiratory failure 15696651 J96.10 secondary to COPD oxygen at 2 liters via ia fluticason e propion-sa lmeterol 500-50 mcg 1 inhalation bid spiriva 18 mcg 1 inhalation qd mucinex 600 mg bid prn albuterol neb 2.5 mg/3 ml q 4 hrs prn duo neb qid albuterol hfa 90 mcg 2 puffs q 4 hrs prn monitor for respirator y symptoms Anemia 470502056 D50.8 vitamin B12 1000 mcg IM q 4 weeks vitamin C 500 mg bid ferrous sulfate 325 mg qd monitor labs Fibromyalgia 347353855 M 79.7 duloxetine 30 mg qd meloxicam 7.5 mg qd tylenol 650 mg q 4 hrs prn monitor pain Gastroesop hageal reflux disease without esophagitis 417034352 K21.9 dexilant 30 mg qd dicyclomin e 10 mg qid prn carafate 1 gm q hs monitor for symptoms Hypothyroidism 87141009 E03.8 levothyrox ine 100 mcg qd monitor labs Mixed hyperlipidemia 267 023137 E78.2 atorvastat in 40 mg qd ezetimibe 10 mg qd questran 4 gms qid monitor labs Obesity 239071648 E66.9 encourage good choices informaticist consult as needed monitor Paroxysmal atrial fibrillation 357043633 I48.0 eliquis 5 mg bid carvedilol 25 mg bid diltiazem 120 mg qd monitor rate and rhythm Obstructiv e sleep apnea syndrome 06379860 G47.33 not on cpap/bipap uses oxygen at 2 liters via nc monitor Vitamin D deficiency 347 16908 E55.9 vitamin D3 1000 iu qd monitor labs Gout 69946960 M10.9 she notes she has gout on/off in bilateral great toes they are noted to be slightly red may need to give prednisone burst if continues monitor [id number] Efren Hobson MD [address] [address] 09/06/2021 09:47:43 09/11/2021 20:47:26 Dizziness 837591437 R42 see above continued on meclizine 12.5 mg bid prn monitor utilizatio n Low blood pressure 33157 003 I95.89 see HPIhtn/hyp o tensionnow with losartan and lasix heldcontin ued on coreg 25 mg bidmonitor bp and need to adjust Vertebral artery occlusion 328191582 I65.02 eval by neuro now onasa 81 mg qdlipitor 40 mg qdmonitor for sx Aneurysm o f middle cerebral artery 246713672 I67.1 see HPIright MCA aneurysm 4.6 mmto f/u with neurosurge rymonitor for sxupdate neurosurge ry with concernsmo nitor bp [place] 197454897 R29.6 PT OT eval and treatmonit or fall risk Essential hypertension 54395608 I10 medication s adjusted during hospitaliz ationnow oncoreg 25 mg biddiltiaz em 120 mg qdmonitor bp and need to adjust with lasix and losartan held Coronary arteriosclerosis 23449159 I25.10 at baseline added to PMHlipitor 40 mg qdasa 81 mg qdcoreg 25 mg bidmonitor for sxcards eval prn Diabetes mellitus 844932 09 E11.9 continue current medication smonitor blood glucose and need to adjust Congestive heart failure 73530587 I50.22 see abovecarry ing dxnow off lasixmonit or respirator y function and fluid status Anemia 994000999 D50.8 continue supplement smonitor cbciron studies prn Fibromyalgia 394216473 M 79.7 added to PMHcontinu e out patient meds Gastroesop hageal reflux disease without esophagitis 829299173 K21.9 stable on out patient medsmonito r sxupdate GI with concerns Hypothyroidism 71985035 E03.8 synthroid 100 mcg qdtsh prn Mixed hyperlipidemia 267 382493 E78.2 with baseline cadcontinu e statin and zetia Obesity 033214152 E66.09 dietary to eval Paroxysmal atrial fibrillation 525847706 I48.0 eliquis 5 mg bidcoreg 25 mg bidmonitor for rate control Obstructiv e sleep apnea syndrome 14127080 G47.33 added to PMHdoes not utilize cpap Chronic ob structive pulmonary disease 34416271 J41.1 baseline copd on O2 by 2 liters NC at baselineco ntinue out patient medsmonito r respirator y statuspulm onary eval prn [id number] YNUG EGAN [address] [address] 09/15/2021 13:21:28 09/19/2021 11:48:58 Dizziness 722386063 R42 meclizine 12.5 mg bid prn monitor Vertebral artery occlusion 752516963 I65.02 needs to have a appt with outpatient [facility] neurosurge ry monitor Aneurysm o f middle cerebral artery 106955522 I67.1 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 will need to have outpatient appt with [facility] neurosurge ry [place] 766851632 R29.6 PT/OT eval and treat prn monitor for safety Essential hypertension 07219169 I10 ASA 81 mg qd diltiazem 120 mg qd carvedilol 25 mg bid monitor b/p and labs Coronary arteriosclerosis 84253403 I25.10 nitro 0.4 mg SL q 5 minutes x3 atorvastat in 40 mg qd ezetimibe 10 mg qd eliquis 5 mg bid ASA 81 mg qd diltiazem 120 mg qd carvedilol 25 mg bid monitor Diabetes mellitus 279636 09 E11.9 carb control diet glucose check bid semaglutid e 1.5 mg sq weekly monitor for s/s of hypo/hyper glycemia monitor A1c Congestive heart failure 74809604 I50.89 not on diuretic at this time monitor weights and s/s of heart failure Chronic re spiratory failure 13842533 J96.10 secondary to COPD oxygen at 2 liters via nc fluticason e propion-sa lmeterol 500-50 mcg 1 inhalation bid spiriva 18 mcg 1 inhalation qd mucinex 600 mg bid prn albuterol neb 2.5 mg/3 ml q 4 hrs prn duo neb qid albuterol hfa 90 mcg 2 puffs q 4 hrs prn monitor for respirator y symptoms Anemia 617197460 D50.8 vitamin C 500 mg bid ferrous sulfate 325 mg qd monitor labs Fibromyalgia 089323776 M 79.7 duloxetine 30 mg qd meloxicam 7.5 mg qd tylenol 650 mg q 4 hrs prn monitor pain Gastroesop hageal reflux disease without esophagitis 438600479 K21.9 dexilant 30 mg qd dicyclomin e 10 mg qid prn carafate 1 gm q hs monitor for symptoms Hypothyroidism 07598758 E03.8 levothyrox ine 100 mcg qd monitor labs Mixed hyperlipidemia 267 929893 E78.2 atorvastat in 40 mg qd ezetimibe 10 mg qd questran 4 gms qid monitor labs Obesity 699740882 E66.9 encourage good choices informaticist consult as needed monitor Paroxysmal atrial fibrillation 235478280 I48.0 eliquis 5 mg bid carvedilol 25 mg bid diltiazem 120 mg qd monitor rate and rhythm Obstructiv e sleep apnea syndrome 07843163 G47.33 not on cpap/bipap uses oxygen at 2 liters via nc monitor Vitamin D deficiency 347 51511 E55.9 vitamin D3 1000 iu qd monitor labs Gout 18307342 M10.9 she notes she has gout on/off in bilateral great toes monitor Acute urin dom tract infection 870415559 N39.0 keflex 250 mg q 6 hrs x 3 days probiotic bid x 6 days monitor for resolution [id number] YUNG EGAN [facility] [address] [place] [address] 09/18/2021 10:54:07 09/20/2021 15:18:56 Chronic respiratory failure 10868780 J96.10 secondary to COPD oxygen at 2 liters via ia fluticason e propion-sa lmeterol 500-50 mcg 1 inhalation bid spiriva 18 mcg 1 inhalation qd mucinex 600 mg bid prn albuterol neb 2.5 mg/3 ml q 4 hrs prn duo neb qid albuterol hfa 90 mcg 2 puffs q 4 hrs prn monitor for respirator y symptoms Essential hypertension 95840018 I10 ASA 81 mg qd eliquis 5 mg bid diltiazem 120 mg qd carvedilol 25 mg bid monitor b/p and labs [id number] RADHA YODER NP [facility] [address] [place] [address] 09/21/2021 08:34:12 09/26/2021 14:28:17 Acute urinary tract infection 191379423 N39.0 keflex 250 mg q 6 hrs x 3 days completecl inically improvedMo nitor for sx. as outpt. Dizziness 866883992 R42 continue meclizine 12.5 mg bid prn monitor as outpt Aneurysm o f middle cerebral artery 006336142 I67.1 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continue asa and statinneed s outpatient appt with [facility] neurosurge ry [place] 146083108 R29.6 PT/OT eval and treat - meeting goals for d/c home monitor for safety as outpt Essential hypertension 94673462 I10 Prior issues low BP, taken off lasix 40 mg bid and losartan 50 mg qd in the hospitalNo issues with low BP hereCurren tly on: diltiazem 120 mg qd carvedilol 25 mg bid monitor b/p and labs as outpt. Coronary arteriosclerosis 45838389 I25.10 Continue current meds:nitro 0.4 mg SL q 5 minutes x3 atorvastat in 40 mg qd ezetimibe 10 mg qd eliquis 5 mg bid ASA 81 mg qd diltiazem 120 mg qd carvedilol 25 mg bid monitor VS, labs, CP status as outpt. Diabetes mellitus 648867 09 E11.9 Conitnue:c arb control diet semaglutid e 1.5 mg sq weekly monitor for s/s of hypo/hyper glycemia - no issues here monitor A1c Congestive heart failure 84751713 I50.89 not on diuretic at this time monitor weights and s/s of heart failure Chronic re spiratory failure 29211325 J96.10 secondary to COPDContin ue: oxygen at 2 liters via nc fluticason e propion-sa lmeterol 500-50 mcg 1 inhalation bid spiriva 18 mcg 1 inhalation qd mucinex 600 mg bid albuterol neb 2.5 mg/3 ml q 4 hrs prn duo neb qid albuterol hfa 90 mcg 2 puffs q 4 hrs prn monitor respirator y symptoms as outpt. Anemia 394539088 D50.8 Continue:v itamin C 500 mg bid ferrous sulfate 325 mg qd monitor CBC, s/s active bleeding as outpt. Fibromyalgia 574276481 M 79.7 Continue:d uloxetine 30 mg qd meloxicam 7.5 mg qd tylenol 650 mg q 4 hrs prn monitor pain Gastroesop hageal reflux disease without esophagitis 494992805 K21.9 Continue:d exilant 30 mg qd dicyclomin e 10 mg qid prn carafate 1 gm q hs monitor for symptoms Hypothyroidism 72844266 E03.8 continue levothyrox ine 100 mcg qd monitor labs Mixed hyperlipidemia 267 680617 E78.2 continue:a torvastati n 40 mg qd ezetimibe 10 mg qd questran 4 gms qid monitor labs Paroxysmal atrial fibrillation 160728096 I48.0 continue:e liquis 5 mg bid carvedilol 25 mg bid diltiazem 120 mg qd monitor as outpt Obstructiv e sleep apnea syndrome 65687131 G47.33 not on cpap/bipap uses oxygen at 2 liters via nc monitor Vitamin D deficiency 347 55964 E55.9 vitamin D3 1000 iu qd monitor labs [id number] CONNOR NOVAK JESSIKA [address] [place] [address] [address] [facility] [place] [place] [address] 02/13/2023 10:15:03 02/26/2023 10:04:21 [place] 450176938 R29.6 PT OT eval and treatfall precaution sfrequent safety checks Dizziness 843502339 R42 meclizine 12.5 mg bid prnmonitor as outpt Essential hypertension 32657360 I10 lasix 40 mg dailymonit or b/p and labs as outpt. Coronary arteriosclerosis 71369276 I25.10 nitro 0.4 mg SL q 5 minutes [id number] atin 80 mg qdezetimib e 10 mg qdeliquis 5 mg bidASA 81 mg qdmonitor VS, labs, CP status as outpt. Diabetes mellitus 627194 09 E11.9 carb control dietsemagl utide 3 mg sq weeklymoni tor for s/s of hypo/hyper glycemiamo nitor A1c Congestive heart failure 22740129 I50.89 lasix 40 mg dailymonit or weights and s/s of heart failure Chronic re spiratory failure 10097690 J96.10 oxygen at 2 liters via ia fluticason e propion-sa lmeterol 500-50 mcg 1 inhalation bidspiriva 18 mcg 1 inhalation qdalbutero l neb 2.5 mg/3 ml q 4 hrs prnduo neb qidalbuter ol hfa 90 mcg 2 puffs q 4 hrs prnmonitor respirator y symptoms as outpt. Paroxysmal atrial fibrillation 773503793 I48.0 eliquis 5 mg bidtoprol 50 mg dailymonit or as outpt Anemia 698565558 D50.8 vitamin C 500 mg bidferrous sulfate 325 mg qdthiamine 100 mg uozetW51 1000 om monthlymon itor CBC Fibromyalgia 515014634 M 79.7 duloxetine 30 mg qdtylenol 650 mg q 4 hrs prnmonitor pain Gastroesop hageal reflux disease without esophagitis 894452380 K21.9 dexilant 30 mg qddicyclom ine 10 mg qid prncarafat e 1 gm q hszofran 8 mg q12 hr prnmonitor for symptoms Hypothyroidism 44113258 E03.8 levothyrox ine 100 mcg qdmonitor labs Mixed hyperlipidemia 267 238716 E78.2 atorvastat in 80 mg qdezetimib e 10 mg qdmonitor labs Obstructiv e sleep apnea syndrome 43064748 G47.33 not on cpap/bipap uses oxygen at 2 liters via nc monitor Vitamin D deficiency 347 39552 E55.9 vitamin D3 1000 iu qd monitor labs Closed fra cture of hip 111997544 S72.001A followup with ortho in 2 weekstrama dol 50 mg q6hr prnmonitor surgical incision for s/s infection [id number] SARAH PETERSON NP [facility] [address] [place] [address] 02/15/2023 09:53:27 02/26/2023 11:30:23 Dizziness 004171954 R42 meclizine 25 mg tidmonitor as outpt Closed fra cture of hip 124029180 S72.001A followup with ortho in 2 weekstrama dol 50 mg q6hr prnmonitor surgical incision for s/s infection Congestive heart failure 22757136 I50.89 lasix 40 mg dailymonit or weights and s/s of heart failure [id number] Verna Barney MD [facility] [address] [place] [address] 02/19/2023 13:15:20 02/26/2023 13:59:05 [place] 273124697 R29.6 As above. Closed fra cture of hip 615222705 S72.041D Poor cooperatio n with rehab.Very deconditio [place].Needs PT/OT for strengthen ing, balance, gait training, safety and function.C ontinue fall precaution s.Monitor for safety.Con tinue tramadol 50 mg q 6 hrs prnWill add APAP 1000 mg TID,Monito r surgical incision.F /U with ortho as planned Dizziness 212050315 R42 Not clearly vertigo, could be orthostati c hypotensio n.Will check orthostati c vitals BID x 2 days.Tracy nue meclizine 25 mg TIDMonitor sxs Essential hypertension 34657808 I10 Good control lasix 40 mg qd and metoprolol 50 mg qd.Monitor BP and labs. Coronary arteriosclerosis 00024869 I25.10 No current sxs.Contin ue meds as above and NTG 0.4 mg SL q 5 minutes x3 prn, atorvastat in 80 mg qd, ezetimibe 10 mg qd and ASA 81 mg qdMonitor sxs and vital.F/U with cardio prn. Diabetes mellitus 201140 09 E11.9 In excellent control since here.Tracy nue semaglutid e 3 mg sq weekly and SSI.Will decrease fingerstic ks to fasting and monitor HgA1C q 3 months. Congestive heart failure 74325706 I50.89 Appears euvolemic. Continue meds as above.Urmila tor resp. status, fluid status, wts and labs. Chronic re spiratory failure 38714635 J96.11 At baseline.C ontinue supplement al O2 at 2 liters by [place].Duonebs are supposed to be qid scheduled, but written as prn, will change.Con tinue Advair 500/50 mcg BID, spiriva 18 mcg qd, albuterol nebs q 6 hrs prn, and albuterol HFA 90 mcg 2 puffs q 4 hrs prn.Monito r resp status. Paroxysmal atrial fibrillation 656252822 I48.0 Rate in good control on meds as above.Cont inue eliquis 5 mg BID for AC.Monitor HR and bleeding risk. Anemia 494241143 D50.8 With minimal drop post-op.Co ntinue FeSO4 325 mg qd with vitamin C 500 mg BID, thiamine 100 mg qd and vitamin B12 1000 mcg q monthMonit or labs. Fibromyalgia 874421871 M 79.7 Continue duloxetine 30 mg qdAlso currently on tramadol and APAP for hip fx.Monitor sxs. Gastroesop hageal reflux disease without esophagitis 816094436 K21.9 No current sxs.Contin ue omeprazole 20 mg qd and zofran 8 mg q 12 hrs prnMonitor for sxs Hypothyroidism 17099069 E03.8 Last TSH 4.82 in 11/2022 with nl FT4.Contin ue levothyrox ine 100 mcg qdMonitor labs prn Mixed hyperlipidemia 267 767099 E78.2 Continue atorvastat in 80 mg qd and ezetimibe 10 mg qdMonitor labs as outpt. Obstructiv e sleep apnea syndrome 68393683 G47.33 Intolerant of cpap/bipap Continue supplement al O2 as above.Urmila tor sats. Vitamin D deficiency 347 26130 E55.9 Continue vitamin D3 1000 IU qdMonitor labs as outpt. Aneurysm o f middle cerebral artery 027354911 I67.1 Hx of 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Saw neurosurg several times, imaging showed stable size.Decis ion for conservati ve tx due to other medical problems.W ould embolize only if sxs of severe [place]. Nausea 356249549 R11.0 Pt. thinks from eye problem as it was there before fallContin ue Zofran 8 mg q 12 hrs prn.F/U with eye dr as planned.Wi ll have nursing try and figure out when appt is. Irritable bowel syndrome with diarrhea [id number] K58.0 Continue dicyclomin e 10 mg qid prnPt. not interested in trying imodium.Mo nitor bowel habits. [id number] CONNOR NOVAK [address] [place] [phone] 5 02/22/2023 12:34:39 02/26/2023 15:08:05 Congestive heart failure 39643704 I50.89 lasix 40 mg dailymonit or weights and s/s of heart failure Dizziness 682466139 R42 meclizine 25 mg tidmonitor as outpt Closed fra cture of hip 126268653 S72.001A followup with ortho in 2 weekstrama dol 50 mg q6hr prnmonitor surgical incision for s/s infection [id number] YUNG CALVILLO JESSIKA [address] [place] [address] 5 02/26/2023 11:35:20 03/06/2023 12:35:17 Falls 442928680 R29.6 PT OT eval and treatfall precaution sfrequent safety checks Closed fra cture of hip 410532205 S72.001A follow up with ortho in 2 weekstrama dol 50 mg q6hr prnmonitor surgical incision for s/s infection Dizziness 595669311 R42 meclizine 12.5 mg bid prnmonitor as outpt Essential hypertension 57755517 I10 stablelasi x 40 mg dailymonit or b/p and labs as outpt. Coronary arteriosclerosis 32039968 I25.10 02/26/23 denies chest discomfort nitro 0.4 mg SL q 5 minutes [id number] atin 80 mg qdezetimib e 10 mg qdeliquis 5 mg bidASA 81 mg qdmonitor VS, labs, CP status as outpt. Diabetes mellitus 957142 09 E11.9 stable readings under 150carb control dietsemagl utide 3 mg sq weeklymoni tor for s/s of hypo/hyper glycemiamo nitor A1c Congestive heart failure 15259431 I50.89 lasix 40 mg dailymonit or weights and s/s of heart failure Chronic re spiratory failure 70699185 J96.10 oxygen at 2 liters via nc fluticason e propion-sa lmeterol 500-50 mcg 1 inhalation bidspiriva 18 mcg 1 inhalation qdalbutero l neb 2.5 mg/3 ml q 4 hrs prnduo neb qidalbuter ol hfa 90 mcg 2 puffs q 4 hrs prnmonitor respirator y symptoms as outpt. Paroxysmal atrial fibrillation 117793304 I48.0 eliquis 5 mg bidtoprol 50 mg dailymonit or as outpt Gastroesop hageal reflux disease without esophagitis 321093398 K21.9 dexilant 30 mg qddicyclom ine 10 mg qid prncarafat e 1 gm q hszofran 8 mg q12 hr prnmonitor for symptoms [id number] YUNG CALVILLO JESSIKA [address] [place] [address] 15120[address]118 5 02/28/2023 09:39:57 03/06/2023 13:35:24 Closed fracture of hip 985553797 S72.001A staple intactappt to remove later today.tram adol 50 mg q6hr prnmonitor surgical incision for s/s infection Dizziness 329335712 R42 meclizine 12.5 mg bid prnmonitor as outpt Essential hypertension 34959051 I10 stablelasi x 40 mg dailymonit or b/p and labs as outpt. Coronary arteriosclerosis 78567503 I25.10 02/26/23 denies chest discomfort nitro 0.4 mg SL q 5 minutes [id number] atin 80 mg qdezetimib e 10 mg qdeliquis 5 mg bidASA 81 mg qdmonitor VS, labs, CP status as outpt. Diabetes mellitus 485161 09 E11.9 stable readings under 150carb control dietsemagl utide 3 mg sq weeklymoni tor for s/s of hypo/hyper glycemiamo nitor A1c Congestive heart failure 22574898 I50.89 lasix 40 mg dailymonit or weights and s/s of heart failure Chronic re spiratory failure 91692702 J96.10 oxygen at 2 liters via nc fluticason e propion-sa lmeterol 500-50 mcg 1 inhalation bidspiriva 18 mcg 1 inhalation qdalbutero l neb 2.5 mg/3 ml q 4 hrs prnduo neb qidalbuter ol hfa 90 mcg 2 puffs q 4 hrs prnmonitor respirator y symptoms as outpt. Paroxysmal atrial fibrillation 553159987 I48.0 eliquis 5 mg bidtoprol 50 mg dailymonit or as outpt Gastroesop hageal reflux disease without esophagitis 287793882 K21.9 dexilant 30 mg qddicyclom ine 10 mg qid prncarafat e 1 gm q hszofran 8 mg q12 hr prnmonitor for symptoms [id number] YUNG CALVILLO JESSIKA [address] [place] [phone] 5 03/04/2023 11:36:26 03/06/2023 14:27:58 Closed fracture of hip 493793239 S72.001A anisa removed 02/28/11tra madol 50 mg q6hr prnmonitor surgical incision for s/s infection Dizziness 852940658 R42 reports that she has not been working with PT due to dizziness. Patient encouraged to utilized prnnursing to assess for dizziness. meclizine 12.5 mg bid prnmonitor as outpt Essential hypertension 90103053 I10 stablelasi x 40 mg dailymonit or b/p and labs as outpt. Congestive heart failure 09054233 I50.89 lasix 40 mg dailymonit or weights and s/s of heart failuretra ce edema noted to ble. Chronic re spiratory failure 22030016 J96.10 oxygen at 2 liters via nc fluticason e propion-sa lmeterol 500-50 mcg 1 inhalation bidspiriva 18 mcg 1 inhalation qdalbutero l neb 2.5 mg/3 ml q 4 hrs prnduo neb qidalbuter ol hfa 90 mcg 2 puffs q 4 hrs prnmonitor respirator y symptoms as outpt. Paroxysmal atrial fibrillation 603757987 I48.0 eliquis 5 mg bidtoprol 50 mg dailymonit or as outpt Gastroesop hageal reflux disease without esophagitis 247725798 K21.9 dexilant 30 mg qddicyclom ine 10 mg qid prncarafat e 1 gm q hszofran 8 mg q12 hr prnmonitor for symptoms [id number] YUNG CALVILLO [address] [facility] [address] [place] [phone] 5 03/07/2023 10:08:49 03/11/2023 15:58:17 Closed fracture of hip 662771693 S72.001A right hip with minimal swelling, no s/sx of infection. anisa removed 02/28/11tra madol 50 mg q6hr prnmonitor surgical incision for s/s infection Dizziness 030793673 R42 reports that she has not been working with PT due to dizziness. Patient is encouraged to take prn meclizine prior to therapy.Hung kimball encouraged to utilized prnnursing to assess for dizziness. meclizine 12.5 mg bid prnmonitor as outpt Essential hypertension 70136645 I10 stablelasi x 40 mg dailymonit or b/p and labs as outpt. Congestive heart failure 18519599 I50.89 lasix 40 mg dailymonit or weights and s/s of heart failuretra ce edema noted to ble. Chronic re spiratory failure 20848126 J96.10 oxygen at 2 liters via nc fluticason e propion-sa lmeterol 500-50 mcg 1 inhalation bidspiriva 18 mcg 1 inhalation qdalbutero l neb 2.5 mg/3 ml q 4 hrs prnduo neb qidalbuter ol hfa 90 mcg 2 puffs q 4 hrs prnmonitor respirator y symptoms as outpt. Paroxysmal atrial fibrillation 167891949 I48.0 eliquis 5 mg bidtoprol 50 mg dailymonit or as outpt Gastroesop hageal reflux disease without esophagitis 138614539 K21.9 dexilant 30 mg qddicyclom ine 10 mg qid prncarafat e 1 gm q hszofran 8 mg q12 hr prnmonitor for symptoms [id number] YUNG CALVILLO [address] [place] [address] 03/12/2023 07:48:41 03/15/2023 08:33:06 Closed fracture of hip 649868589 S72.001A right hip with minimal swelling, no s/sx of infection. anisa removed 02/28/11tra madol 50 mg q6hr prnmonitor surgical incision for s/s infection Dizziness 376824338 R42 reports improvemen tmeclizine prior to therapy.Hung kimball encouraged to utilized prnnursing to assess for dizziness. meclizine 12.5 mg bid prnmonitor as outpt Essential hypertension 43612748 I10 stablelasi x 40 mg dailymonit or b/p and labs as outpt. Congestive heart failure 27303181 I50.89 lasix 40 mg dailymonit or weights and s/s of heart failuretra ce edema noted to ble. Chronic re spiratory failure 88745699 J96.10 oxygen at 2 liters via ia fluticason e propion-sa lmeterol 500-50 mcg 1 inhalation bidspiriva 18 mcg 1 inhalation qdalbutero l neb 2.5 mg/3 ml q 4 hrs prnduo neb qidalbuter ol hfa 90 mcg 2 puffs q 4 hrs prnmonitor respirator y symptoms as outpt. Paroxysmal atrial fibrillation 036518594 I48.0 eliquis 5 mg bidtoprol 50 mg dailymonit or as outpt Gastroesop hageal reflux disease without esophagitis 081153691 K21.9 dexilant 30 mg qddicyclom ine 10 mg qid prncarafat e 1 gm q hszofran 8 mg q12 hr prnmonitor for symptoms [id number] [facility] [address] [place] [address] [place] [address] 03/15/2023 08:18:00 03/20/2023 11:41:33 Closed fracture of hip 590621603 S72.001A right hip with minimal swelling, no s/sx of infection. anisa removed 02/28/11tra madol 50 mg q6hr prnmonitor surgical incision for s/s infection Dizziness 124970776 R42 meclizine 12.5 mg bid prnmonitor as outpt Essential hypertension 30759122 I10 stablelasi x 40 mg dailymonit or b/p and labs as outpt. Congestive heart failure 22050157 I50.89 lasix 40 mg dailymonit or weights and s/s of heart failure2+ edema noted to lower ankles Chronic re spiratory failure 34105634 J96.10 O2 dependento xygen at 2 liters via nc fluticason e propion-sa lmeterol 500-50 mcg 1 inhalation bidspiriva 18 mcg 1 inhalation qdalbutero l neb 2.5 mg/3 ml q 4 hrs prnduo neb qidalbuter ol hfa 90 mcg 2 puffs q 4 hrs prnmonitor respirator y symptoms as outpt. Paroxysmal atrial fibrillation 758699524 I48.0 eliquis 5 mg bidtoprol 50 mg dailymonit or as outpt Gastroesop hageal reflux disease without esophagitis 551193350 K21.9 dexilant 30 mg qddicyclom ine 10 mg qid prncarafat e 1 gm q hszofran 8 mg q12 hr prnmonitor for symptoms [id number] YUNG CALVILLO [facility] [address] [place] [address] 5 03/18/2023 07:52:24 04/02/2023 15:36:02 Closed fracture of hip 478868256 S72.001A right hip with minimal swelling, no s/sx of infection. anisa removed 02/28/11tra madol 50 mg q6hr prnmonitor surgical incision for s/s infection Dizziness 477625224 R42 meclizine 12.5 mg bid prnmonitor as outpt Essential hypertension 31680533 I10 stablelasi x 40 mg dailymonit or b/p and labs as outpt. Congestive heart failure 73835117 I50.89 weight today 204 up 3 lbs from 201 on 03/16- may need to give additional lasix , will monitorlas ix 40 mg dailymonit or weights and s/s of heart failure2+ edema noted to lower ankles Chronic re spiratory failure 09812255 J96.10 O2 dependento xygen at 2 liters via ia fluticason e propion-sa lmeterol 500-50 mcg 1 inhalation bidspiriva 18 mcg 1 inhalation qdalbutero l neb 2.5 mg/3 ml q 4 hrs prnduo neb qidalbuter ol hfa 90 mcg 2 puffs q 4 hrs prnmonitor respirator y symptoms as outpt. Paroxysmal atrial fibrillation 717577347 I48.0 eliquis 5 mg bidtoprol 50 mg dailymonit or as outpt [id number] YUNG CALVILLO [address] [address] 5 03/25/2023 11:40:05 03/27/2023 15:02:29 Closed fracture of hip 803900033 S72.001A right hip with minimal swelling, no s/sx of infection. anisa removed 02/28/11tra madol 50 mg q6hr prn Dizziness 075054451 R42 meclizine 12.5 mg bid prnmonitor as outpt Essential hypertension 11340131 I10 stablelasi x 40 mg dailymonit or b/p and labs as outpt. Congestive heart failure 94831389 I50.89 lasix 40 mg dailymonit or weights and s/s of heart failure1-2 + edema noted to lower ankles Chronic re spiratory failure 27058890 J96.10 supplement al O2 at 2 liters via ia fluticason e propion-sa lmeterol 500-50 mcg 1 inhalation bidspiriva 18 mcg 1 inhalation qdalbutero l neb 2.5 mg/3 ml q 4 hrs prnduo neb qidalbuter ol hfa 90 mcg 2 puffs q 4 hrs prnmonitor respirator y symptoms as outpt. Paroxysmal atrial fibrillation 666502237 I48.0 eliquis 5 mg bidtoprol 50 mg dailymonit or as outpt [id number] YUNG CALVILLO [address] [address] 5 04/01/2023 07:59:04 04/04/2023 13:27:21 Closed fracture of hip 223146578 S72.001A right hip with minimal swelling, no s/sx of infection. anisa removed 02/28/11tra madol 50 mg q6hr prn Congestive heart failure 77073210 I50.89 lasix 40 mg dailymonit or weights and s/s of heart failure1-2 + edema noted to lower anklesenco uraged legs elevations and oksana bandages to bilateral lower extremitie s. Falls 869998477 R29.6 PT/OT prnfall precaution sfrequent safety checks [id number] YUNG CALVILLO [address] [address] 5 04/04/2023 14:04:47 04/08/2023 12:33:49 Closed fracture of hip 665014946 S72.001A s/p fall 02/10 with right hip repair.tra madol 50 mg q6hr prnpatient stays in bed, refuses OOB per nursing staff. Congestive heart failure 38354320 I50.89 lasix 40 mg dailymonit or weights and s/s of heart failure1-2 + edema noted to lower anklesenco uraged legs elevations and oksana bandages to bilateral lower extremitie s. Falls 942543316 R29.6 fall precaution sfrequent safety checks [id number] YUNG CALVILLO [address] [address] 5 04/10/2023 08:45:25 04/11/2023 18:26:36 Closed fracture of hip 422514547 S72.001A s/p fall 02/10 with right hip repair.tra madol 50 mg q6hr prnpatient stays in bed, refuses OOB per nursing staff.04/09: patient got OOB yesterday per her request. Congestive heart failure 84677078 I50.89 lasix 40 mg dailymonit or weights and s/s of heart failure1-2 + edema noted to lower anklesenco uraged legs elevations and oksana bandages to bilateral lower extremitie s. Falls 171984529 R29.6 fall precaution sfrequent safety checks [id number] Verna Barney MD [address] [address] 04/12/2023 18:36:04 04/16/2023 11:21:31 Closed fracture of hip 571710533 S72.041D Has recovered from fx, but mobility is still an issue.Will have lots of help at home, but not overnight. Will need to be monitored closely outpt for safety.No further f/u with ortho, unless needed. Congestive heart failure 98991233 I50.89 Continues at baseline.C ontinue meds as above.Urmila tor resp. status, fluid status, wts and labs. Falls 199061058 R29.6 Continue fall precaution s.Monitor for safety. Dizziness 874993663 R42 No c/o todayConti nue meclizine 25 mg TIDMonitor sxs Nausea 288128976 R11.0 Seems better per pt.Continu e Zofran 8 mg q 12 hrs prn.Monito r Essential hypertension 30517054 I10 Good control on lasix 40 mg qd and metoprolol 50 mg qd.Monitor BP and labs. Coronary arteriosclerosis 27779013 I25.10 No current sxs.Contin ue meds as above and NTG 0.4 mg SL q 5 minutes x3 prn, atorvastat in 80 mg qd, ezetimibe 10 mg qd and ASA 81 mg qdMonitor sxs and vital.F/U with cardio prn. Diabetes mellitus 782643 09 E11.9 In excellent control since here.Tracy nue semaglutid e 3 mg sq weekly.Poli l d/c SSI and monitor sugars prn. Chronic re spiratory failure 11130801 J96.11 Continues at baseline.C ontinue supplement al O2 at 1-2 liters by [place] to maintain sats 90-94%Duon ebs qid prn, Advair 500/50 mcg BID, spiriva 18 mcg qd, albuterol nebs q 6 hrs prn, and albuterol HFA 90 mcg 2 puffs q 4 hrs prn.Monito r resp status. Paroxysmal atrial fibrillation 822395869 I48.0 Rate in good control on meds as above.Cont inue eliquis 5 mg BID for AC.Monitor HR and bleeding risk. Anemia 798356268 D50.8 With minimal drop post-op.Co ntinue FeSO4 325 mg qd with vitamin C 500 mg BID, thiamine 100 mg qd and vitamin B12 1000 mcg q monthMonit or labs. Fibromyalgia 056980659 M 79.7 Continue duloxetine 30 mg qdMonitor sxs. Gastroesop hageal reflux disease without esophagitis 841582609 K21.9 No current sxs.Contin ue omeprazole 20 mg qd and zofran 8 mg q 12 hrs prnMonitor for sxs Hypothyroidism 80595576 E03.8 Last TSH 4.82 in 11/2022 with nl FT4.Contin ue levothyrox ine 100 mcg qdMonitor labs prn Mixed hyperlipidemia 267 223245 E78.2 Continue atorvastat in 80 mg qd and ezetimibe 10 mg qdMonitor labs as outpt. Obstructiv e sleep apnea syndrome 22601099 G47.33 Intolerant of cpap/bipap Continue supplement al O2 as above.Urmila tor sats. Vitamin D deficiency 347 93971 E55.9 Continue vitamin D3 1000 IU qdMonitor labs as outpt. Aneurysm o f middle cerebral artery 695293899 I67.1 Hx of 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Saw neurosurg several times, imaging showed stable size.Decis ion for conservati ve tx due to other medical problems.W ould embolize only if sxs of severe [place]. Irritable bowel syndrome with diarrhea 611768612 K58.0 Continue dicyclomin e 10 mg qid prnMonitor bowel habits. [id number] YUNG CALVILLO JESSIKA [address] [place] [address] [place] [address] 04/17/2023 07:50:06 04/23/2023 10:23:47 Closed fracture of hip 422184416 S72.001A s/p fall 02/10 with right hip repair.tra madol 50 mg q6hr prnpatient stays in bed, refuses OOB per nursing staff.04/09: patient got OOB yesterday per her request. Congestive heart failure 04623650 I50.89 lasix 40 mg dailymonit or weights and s/s of heart failure1-2 + edema noted to lower anklesenco uraged legs elevations and oksana bandages to bilateral lower extremitie s. Falls 185480232 R29.6 fall precaution sfrequent safety checks Essential hypertension 63104697 I10 stablelasi x 40 mg dailymonit or b/p and labs as outpt. Diabetes mellitus 494368 09 E11.9 stable readings under 150carb control dietsemagl utide 3 mg sq weeklymoni tor for s/s of hypo/hyper glycemiamo nitor A1c [id number] RALPH RIDER [address] [address] 04/24/2023 10:07:25 04/26/2023 13:02:59 Closed fracture of hip 375233405 S72.001A s/p fall 02/10 with right hip repair.tra madol 50 mg q6hr prnpatient stays in bed, refuses OOB per nursing staff.04/09: patient got OOB yesterday per her request. Congestive heart failure 35408819 I50.89 lasix 40 mg dailyweigh t stablemoni tor weights and s/s of heart failuretra ce edemaencou raged legs elevations and oksana bandages to bilateral lower extremitie s. Falls 426698072 R29.6 fall precaution sfrequent safety checks Essential hypertension 98593556 I10 stablelasi x 40 mg dailymonit or b/p and labs as outpt. Diabetes mellitus 043534 09 E11.9 stable readings under 150carb control dietsemagl utide 3 mg sq weeklymoni tor for s/s of hypo/hyper glycemiamo nitor A1c [id number] RALPH RIDER [address] [address] 05/01/2023 09:21:18 05/03/2023 14:11:33 Closed fracture of hip 180293555 S72.001A s/p fall 02/10 with right hip repair.tra madol 50 mg q6hr prnpatient stays in bed, refuses OOB per nursing staff.04/09: patient got OOB yesterday per her request. Congestive heart failure 14086603 I50.89 lasix 40 mg dailyweigh t stablemoni tor weights and s/s of heart failuretra ce edemaencou raged legs elevations and oksana bandages to bilateral lower extremitie s. Falls 018014618 R29.6 fall precaution sfrequent safety checks Essential hypertension 09439463 I10 stablelasi x 40 mg dailymonit or b/p and labs as outpt. Diabetes mellitus 352226 09 E11.9 stable readings under 150carb control dietsemagl utide 3 mg sq weeklymoni tor for s/s of hypo/hyper glycemiamo nitor A1c [id number] YUNG CALVILLO [address] [address] 05/08/2023 11:17:04 05/13/2023 16:10:41 Closed fracture of hip 672443280 S72.001A s/p fall 02/10 with right hip repair.tra madol 50 mg q6hr Congestive heart failure 88149131 I50.89 lasix 40 mg dailyweigh t stablemoni tor weights and s/s of heart failuretra ce edemaencou raged legs elevations and oksana bandages to bilateral lower extremitie s. Falls 961030798 R29.6 fall precaution sfrequent safety checks Essential hypertension 00894147 I10 stablelasi x 40 mg dailymonit or b/p and labs as outpt. Diabetes mellitus 911056 09 E11.9 stable readings under 150carb control dietsemagl utide 3 mg sq weeklymoni tor for s/s of hypo/hyper glycemiamo nitor A1c [id number] YUNG CALVILLO [address] [address] 05/15/2023 08:19:24 05/20/2023 15:40:14 Closed fracture of hip 102047768 S72.001A s/p fall 02/10 with right hip repair.tra madol 50 mg q6hr Congestive heart failure 68759533 I50.89 lasix 40 mg dailyweigh t stablemoni tor weights and s/s of heart failuretra ce edemaencou raged legs elevations and oskana bandages to bilateral lower extremitie s. Falls 752589687 R29.6 fall precaution sfrequent safety checks Essential hypertension 73882365 I10 stablelasi x 40 mg dailymonit or b/p and labs as outpt. Diabetes mellitus 875031 09 E11.9 stable readings under 150carb control dietsemagl utide 3 mg sq weeklymoni tor for s/s of hypo/hyper glycemiamo nitor A1c [id number] YUNG CALVILLO [address] [place] [address] rd [place] [address] 05/17/2023 15:20:25 05/21/2023 12:20:46 Closed fracture of hip 048997404 S72.001A s/p fall 02/10 with right hip repair.tra madol 50 mg q6hr Congestive heart failure 93828830 I50.89 lasix 40 mg dailyweigh t stablemoni tor weights and s/s of heart failuretra ce edemaencou raged legs elevations and oksana bandages to bilateral lower extremitie s. Falls 410117455 R29.6 fall precaution sfrequent safety checks Essential hypertension 87117605 I10 lasix 40 mg daily Diabetes mellitus 593757 09 E11.9 semaglutid e 3 mg sq weeklymoni tor for s/s of hypo/hyper glycemiamo nitor A1c Anemia 065270404 D50.8 Continue FeSO4 325 mg qd with vitamin C 500 mg BID, thiamine 100 mg qd and vitamin B12 1000 mcg q Aneurysm o f middle cerebral artery 834074514 I67.1 Ccarrying dx Chronic re spiratory failure 28125955 J96.11 supplement al O2 at 2 liters via ncfluticas one propion-sa lmeterol 500-50 mcg 1 inhalation bidspiriva 18 mcg 1 inhalation qdalbutero l neb 2.5 mg/3 ml q 4 hrs prnduo neb qidalbuter ol hfa 90 mcg 2 puffs q 4 hrs prn Coronary arteriosclerosis 22143094 I25.10 nitro 0.4 mg SL q 5 minutes [id number] atin 80 mg qdezetimib e 10 mg qdeliquis 5 mg bidASA 81 mg qdmonitor VS, labs Dizziness 068381940 R42 meclizine 12.5 mg bid prnmonitor as outpt Gastroesop hageal reflux disease without esophagitis 547228334 K21.9 dexilant 30 mg qddicyclom ine 10 mg qid prncarafat e 1 gm q hszofran 8 mg q12 hr prn Fibromyalgia 155412003 M 79.7 Continue duloxetine 30 mg qd Gout 24066353 M10.9 carrying dx Hypothyroidism 99246337 E03.8 Continue levothyrox ine 100 mcg qd Irritable bowel syndrome with diarrhea 549696670 K58.0 Continue dicyclomin e 10 mg qid prn Mixed hyperlipidemia 267 065649 E78.2 Continue atorvastat in 80 mg qd and ezetimibe 10 mg qd Nausea 540694259 R11.0 Continue Zofran 8 mg q 12 hrs prn. Obstructiv e sleep apnea syndrome 77228841 G47.33 Intolerant of cpap/bipap Continue supplement al O2 as above. Paroxysmal atrial fibrillation 113289991 I48.0 eliquis 5 mg bidtoprol 50 mg dailymonit or as outpt Vitamin D deficiency 347 40102 E55.9 Continue vitamin D3 1000 IU qdMonitor labs as outpt. 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 needs to have a appt with outpatient [facility] neurosurge ry Health Concerns Section Related Observation LastModified by Organization Paul [email or web address] LastModified Time None Recorded Concern Status LastModified by Organization Details LastModified Time None Recorded Advance Directives Directive Y: Payers Insurance Date Sequence Insurance Name Policy Number Policy Palomino Covered Member ID Palomino Member ID Guarantor Name 05/20/2023 1 [employer] - DUAL ELIGIBLE - [facility] - SENIOR [facility] (MEDICARE REPLACEMENT/A DVANTAGE - HMO) Carly Hotte [id number] Carly Hotte 04/24/2023 2 MEDICARE B-[place]: [employer] Carly Hotte [id number] Carly Hotte Notes Date Note Type Note [...] no acute nursing concerns. YUNG CALVILLO [address] [facility], [address], [place], [address], [email or web address] 04/24/2023 13:13:25 05/01/2023 text/html ROS as noted in the [facility] 82 yr old female with [...] no acute nursing concerns. YUNG CALVILLO [address] [facility], [address], [place], [address], [email or web address] 05/01/2023 15:45:39 05/08/2023 text/html ROS as noted in the [facility] 82 yr old female with [...] no acute nursing concerns. YUNG CALVILLO [address] [facility], [address], [place], [address], [email or web address] [facility] 05/09/2023 09:20:31 05/15/2023 text/html ROS as noted in the [facility] 82 yr old female with [...] for acute rounding visit. YUNG CALVILLO [address] [facility], [address], [place], [address], [email or web address] 05/16/2023 00:18:01 05/17/2023 text/html ROS as noted in the HPI [...] PT/OT and VNA services. YUNG CALVILLO [address] [facility], [address], [place], [address], [email or web address] 05/17/2023 15:28:55 OBGyn Episode No OBEpisode recorded.
--- NOTE | 2025-01-21 23:46 | PC.NURSE ---
Assumed care of this Pt at 2300.
[2025-01-22] VITALS (9 sets, daily range): BP systolic 113–154; BP diastolic 64–100; PULSE 68–104; RESP 12–22; TEMP 36.1–36.6; O2SAT 91–97; BMI 39.4
[2025-01-22] MEDS: 0.9 % Sodium Chloride Flush 3 ML SYRINGE IVFLUSH ×3 (01:00→20:45)
--- NOTE | 2025-01-22 03:11 | PC.NURSE ---
Pt incontinent of urine, incontinent care provided, new lines place.
[2025-01-22 04:13] LABS: Hematocrit 39.5 % (37.0-47.0); Hemoglobin 11.8 g/dl (12.0-16.0); Imm Gran Abs Auto 0.05 X10*3/uL (0.00-0.03); Imm Gran Pct Auto 0.8 % (0.0-0.4); Lymphocytes Absolute Auto 1.6 X10*3/uL (1.2-4.9); MANUAL DIFF FLAG NO; Mean Corpuscular HGB Conc 29.9 g/dl (31.0-35.0); Mean Corpuscular Hemoglobin 27.4 pg (27.0-33.0); Mean Corpuscular Volume 91.6 fL (80.0-98.0); NRBC Abs Auto 0.000 X10*3/uL (0.0-0.012); NRBC Pct Auto 0.0 /100WBC (0.0-0.2); Platelet Count 226 X10*3/uL (160-400); Red Blood Count 4.31 X10*6/uL (4.20-5.50); White Blood Count 6.6 X10*3/uL (4.8-10.8)
[2025-01-22 04:32] LABS: Alanine Aminotransferase < 6 U/L (0-31); Albumin Level 3.8 g/dL (3.5-5.0); Alkaline Phosphatase 166 U/L (39-117); Anion Gap 16 (12-20); Aspartate Amino Transferase 20 U/L (5-31); Blood Urea Nitrogen 13 mg/dL (9-16); Calcium 9.4 mg/dL (8.4-10.2); Carbon Dioxide 34 mmol/L (22-29); Chloride 101 mmol/L (96-108); Creatinine Clr Calc Pharmacy 57.4; Estimated Glomerular Filt Rate > 60; Potassium 3.9 mmol/L (3.3-5.1); Sodium 147 mmol/L (135-145); Total Protein 6.9 g/dL (6.5-8.0)
--- NOTE | 2025-01-22 06:06 | PM.IMHP ---
History of Present Illness Date of Service: 01/22/25 Chief Complaint: Abdominal pain 84-year-old female with a past medical history of HTN, HLD, CAD, CHF, chronic pain syndrome, degenerative spine disease, arthritis, HX C diff infection, pulmonary nodules, COPD, abdominal aortic aneurysm, hypothyroidism, fibromyalgia, restrictive lung disease; obesity presented to the hospital with a chief complaint of abdominal pain. Patient mentioned that over the past 4-5 days she has been having abdominal pain associated nausea. Also reports having chest pain and shortness of breath. Denies any falls or injury. Denies any fevers. Denies any cough or sputum production. Reports her pain is located in the epigastrium and radiates to the back. Denies any alcohol or illicit drug use. Patient denies any urinary symptoms. Review of all other systems is negative except mentioned above ER course: Per ER team, CT and pelvis shows done which showed no acute findings except for findings concerning for possible cystitis but UA was negative. Noted microscopic hematuria. ProBNP elevated. Patient was mildly hypoxic. Placed on supplemental oxygen. Concern for possible acute CHF. [facility] Medical History COPD (chronic obstructive pulmonary disease) Strong odor of stools Dysuria Pulmonary nodules Diarrhea Weakness Bradycardia Ingrowing nail Impacted cerumen of right ear Urinary incontinence Impacted cerumen of right ear Pulmonary nodule Chronic anticoagulation First degree atrioventricular block Atrial fibrillation Chronic pain syndrome 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 Low back pain Respiratory failure with hypoxia and hypercapnia Lower extremity weakness Nasal congestion Otitis externa Coronary artery disease Restrictive lung disease Diarrhea History of spinal stenosis Fibromyalgia Obesity (BMI 30-39.9) Carpal tunnel syndrome Abdominal aortic aneurysm Hypothyroid Obstructive sleep apnea Congestive heart failure Pernicious anemia Paroxysmal atrial fibrillation DVT (deep venous thrombosis) Diverticulitis GERD (gastroesophageal reflux disease) HTN (hypertension) Clostridium difficile colitis CAD (coronary artery disease) Hypercholesterolemia Family History Father Hypertension CVD (cardiovascular disease) Mother Colon cancer Sister Leukemia Sister Colon cancer Son Lung cancer Colon polyps Surgical History History of hip surgery S/P BREANN-BSO (total abdominal hysterectomy and bilateral salpingo-oophorectomy) History of arthroplasty of left shoulder Hx of cholecystectomy H/O angioplasty Hx of appendectomy H/O cardiac catheterization Social History Household Members: None Household Members Other:: self Housing: Apartment Do you presently have visiting nurse or other home services: Yes (Nurses to prep meds. [employer] everyday 3x a day) Alcohol intake: never Patient Tobacco Use Status: Former Tobacco user Tobacco use type: Cigarette Years Smoked: stopped 2009 e-Cigarette/Vaping Use: Never Used Second Hand Smoke Exposure: Yes Advance Directives: Yes Advance Directives on File: Yes Advance Directives Date on File: 10/10/21 service: No Current occupational status: retired Current occupational exposures/hazards: No Cognitive needs: No Hearing needs: No Vision needs: Yes Meds Allergies Allergy/AdvReac Type Severity Reaction Status Date / Time morphine (MORPHINE) Allergy Unknown RASH Verified 01/21/25 15:34 pregabalin (From LYRICA) Allergy Unknown NAUSEA, Verified 01/21/25 15:34 felt high on drugs Active Medications: Current Medications Acetaminophen (Acetaminophen 325 Mg Tablet) 650 mg PO Q6H PRN PRN Reason: Pain, Mild 1-3,fever,headache Albuterol/Ipratropium (Albuterol/Iprat 2.5/0.5mg 3 Ml Ampul.Neb) 3 ml INHALE RQ4H WHILE AWAKE PRN PRN Reason: Shortness of Breath Apixaban (Apixaban 5 Mg Tablet) 5 mg PO BID DANIEL Last Admin: 01/21/25 20:06 Dose: 5 mg Benzonatate (Benzonatate 100 Mg Capsule) 100 mg PO TID PRN PRN Reason: Cough Calcium Carbonate (Calcium Carbonate 750 Mg Tab.Chew) 750 mg PO Q4H PRN PRN Reason: Heartburn Dextrose (Dextrose 50 % 25 Gm/50 Ml Syringe) 25 gm IVPUSH Q15M PRN; Protocol PRN Reason: per Hypoglycemia Standing Ord. Furosemide (Furosemide 40 Mg/4 Ml Vial) 40 mg IVPUSH DAILY [facility]; Protocol Glucose (Glucose Gel 15 Gm Gel..Gram.) 15 gm PO Q15M PRN; Protocol PRN Reason: per Hypoglycemia Standing Ord. Insulin Human Lispro (Insulin Lispro 100 Unit/Ml 3 Ml Vial) 0 unit SUBCUT QIDACHS [facility]; Protocol Last Admin: 01/21/25 20:10 Dose: Not Given Magnesium Hydroxide (Milk Of Magnesia 30 Ml Oral.Susp) 30 ml PO DAILY PRN PRN Reason: Constipation Melatonin (Melatonin 3 Mg Tablet) 6 mg PO BEDTIME PRN PRN Reason: Insomnia Sodium Chloride (0.9 % Sodium Chloride Flush 3 Ml Syringe) 3 ml IVFLUSH [facility] Last Admin: 01/22/25 01:00 Dose: 3 ml Home Medications ?Medication ?Instructions ?Recorded ?Confirmed ?Last Taken ?Type cholecalciferol (vitamin D3) 25 25 mcg PO DAILY 12/01/19 07/14/23 02/08/23 History mcg (1,000 unit) capsule (Vitamin D3) dicyclomine 10 mg capsule 10 mg PO Q6H PRN Abdominal Pain 12/01/19 12/24/24 Unknown History aspirin 81 mg tablet,delayed 81 mg PO DAILY 07/08/23 07/14/23 Unknown History release acetaminophen 650 mg 650 mg PO Q8H PRN Pain 07/14/23 07/14/23 Unknown History tablet,extended release ipratropium 0.5 mg-albuterol 3 mg 3 ml inhalation QID PRN Shortness 07/14/23 07/14/23 Unknown History (2.5 mg base)/3 mL nebulization Of Breath Or Wheezing soln fluticasone 500 mcg-salmeterol 50 1 inh inhalation BID 11/27/24 Unknown History mcg/dose blistr powdr for inhalation (Wixela Inhub) duloxetine 30 mg capsule,delayed 30 mg PO DAILY 01/22/25 Unknown History release Physical Exam Vital Signs and Narrative: Vital Signs: Last Vital Signs Temp 97.8 F 01/22/25 02:24 Pulse 99 01/22/25 04:00 Resp 20 01/22/25 04:00 BP 122/80 01/22/25 04:00 Pulse Ox 96 01/22/25 04:00 O2 Del Method Nasal Cannula 01/22/25 04:00 O2 Flow Rate 3 01/22/25 04:00 Oxygen Flow Rate 2 01/21/25 15:24 BMI result Body Mass Index 41.6 Gen: Appears be in no acute distress. On supplemental oxygen. Speaks in full sentences HEENT: NCAT, Moist mucosa. Pulmonary: Coarse breath sounds CVS: Normal S1-S2 Abdomen: BS+, Soft, tender in the epigastrium; no guarding no rigidity Extremities: Warm well perfused Neuro: Alert and awake. Results Labs 01/22/25 04:08 01/22/25 04:08 Labs: Laboratory Results - last 24 hr 01/21/25 01/21/25 01/21/25 16:19 16:29 17:33 MCV 90.1 MCH 27.4 MCHC 30.4 L RDW 14.8 Plt Count 235 MPV 9.6 Immature Gran % (Auto) 1.0 H Neut % (Auto) 68.8 Lymph % (Auto) 20.8 [place] % (Auto) 8.6 Eos % (Auto) 0.4 Baso % (Auto) 0.4 Lymph # (Auto) 1.5 [place] # (Auto) 0.6 Eos # (Auto) 0.0 Baso # (Auto) 0.0 Abs Immat Gran (auto) 0.07 H Absolute Neuts (auto) 5.1 Absolute Nucleated RBC 0.000 Nucleated RBC % (auto) 0.0 Anion Gap 10 L Estim Creat Clear Calc 61.3 Estimated GFR > 60 POC Glucose Random Glucose 92 Lactic Acid 1.3 Calcium 9.2 Total Bilirubin 0.5 Direct Bilirubin 0.2 AST 16 ALT 7 Alkaline Phosphatase 151 H Troponin I High Sens 8.5 NT-Pro-B Natriuret Pep 4289.4 H Total Protein 6.6 Albumin 3.7 Urine Color Urine Appearance Urine pH Ur Specific [place] Urine Protein Urine Glucose (UA) Urine Ketones Urine Blood Urine Nitrite Ur Leukocyte Esterase Urine RBC Urine WBC Ur Squamous Epith Cells Calcium Oxalate Crystal Urine Bacteria Hyaline Casts Influenza Type A (PCR) NEGATIVE Influenza Type B (PCR) NEGATIVE RSV RNA Qual (PCR) NEGATIVE SARS-CoV-2 RNA (RT-PCR) NEGATIVE 01/21/25 01/21/25 01/22/25 18:02 20:09 04:08 MCV 91.6 MCH 27.4 MCHC 29.9 L RDW 14.6 Plt Count 226 MPV 9.4 Immature Gran % (Auto) 0.8 H Neut % (Auto) 61.9 Lymph % (Auto) 24.2 [place] % (Auto) 11.4 H Eos % (Auto) 1.1 Baso % (Auto) 0.6 Lymph # (Auto) 1.6 [place] # (Auto) 0.8 Eos # (Auto) 0.1 Baso # (Auto) 0.0 Abs Immat Gran (auto) 0.05 H Absolute Neuts (auto) 4.1 Absolute Nucleated RBC 0.000 Nucleated RBC % (auto) 0.0 Anion Gap 16 Estim Creat Clear Calc 57.4 Estimated GFR > 60 POC Glucose 80 Random Glucose 95 Lactic Acid Calcium 9.4 Total Bilirubin 0.7 Direct Bilirubin AST 20 ALT < 6 Alkaline Phosphatase 166 H Troponin I High Sens NT-Pro-B Natriuret Pep Total Protein 6.9 Albumin 3.8 Urine Color Yellow Urine Appearance Cloudy Urine pH 6.0 Ur Specific [place] 1.020 Urine Protein 100 (2+) H Urine Glucose (UA) Negative Urine Ketones Negative Urine Blood Small (1+) H Urine Nitrite Negative Ur Leukocyte Esterase Negative Urine RBC >20 H Urine WBC 0-5 Ur Squamous Epith Cells 0-2 Calcium Oxalate Crystal Present Urine Bacteria None Seen Hyaline Casts 11-20 Influenza Type A (PCR) Influenza Type B (PCR) RSV RNA Qual (PCR) SARS-CoV-2 RNA (RT-PCR) Imaging Radiologist's Impressions: Impressions Chest X-Ray 01/21/25 16:33 IMPRESSION: Cardiomegaly. The right lung shows increased reticular markings and groundglass density which in part may be due to overlying soft tissues/body habitus but underlying acute pulmonary process such as early changes from interstitial edema or atypical/viral pneumonia is not ruled out. Electronically signed by: Melvin Martinez MD 01/21/2025 04:46 PM [facility] [place] and Plan (1) Congestive heart failure: Qualifiers: Heart failure type: combined systolic and diastolic Heart failure chronicity: acute on chronic Qualified Code(s): I50.43 - Acute on chronic combined systolic (congestive) and diastolic (congestive) heart failure Status: Acute Plan 84-year-old female with a past medical history of HTN, HLD, CAD, CHF, chronic pain syndrome, degenerative spine disease, HX C diff infection arthritis, pulmonary nodules, COPD, abdominal aortic aneurysm, hypothyroidism, fibromyalgia, restrictive lung disease; obesity presented to the hospital with a chief complaint of abdominal pain/chest pain/shortness of breath. Admitted for following. Acute on chronic CHF: Chest pain: EKG nonischemic. Troponin negative. CT chest showed no pneumonia. Continue Lasix IV daily Daily weights and I's and o's Telemetry Cardiology consult Epigastric pain: CT abdomen pelvis showed no acute findings Lipase pending. Pain control Advanced diet as tolerated Ppi Diabetes: Insulin sliding scale COPD: DuoNeb p.r.n. Microscopic hematuria: Follow-up urinalysis recommended to ensure improvement. Paroxysmal AFib: Continue home Eliquis. CAD: Continue home aspirin, statin Med reconciliation: Resume home medications once med rec is completed by pharmacy. DVT prophylaxis: Patient on Eliquis Code status: Full code Quality Stroke Does the patient have a stroke diagnosis?: No VTE Prior VTE?: No VTE Risk Level:: Medical - moderate - high VTE Device Contraindication: Treatment Not Indicated VTE Drug Contraindication: N/A - Med Ordered
--- NOTE | 2025-01-22 06:45 | HO.NURTONUR ---
Pt is an 84yo F from home with c/o abd pain x4-5 days with associated n/v. +CP/SOB. Pt is bed bound, hx of chronic pain, HTN, CHF, CAD, DDD, AAA, fibromyalgia. Has child care provider at home 14hrs a day. CTabd negative, BNP>4000. Given a dose of lasix in ED. Pt has purewick in place. voided approx 300. Afebrile. VSS. Oriented to person. Difficult to follow commands. Inc confusion per caregiver. Midly hypoxic, placed on 3LNC. Concern for acute CHF exacerbation and failure to thrive. 22gRUA, 20gRFA.
--- NOTE | 2025-01-22 07:00 | CA_ITS ---
Transthoracic Echocardiogram Patient (Last, First, Middle): Carly Unger L Gender: Female Date of : 1940 Age: 84 Procedure Date: 01/22/2025 Procedure Type: Transthoracic Echocardiogram Location: ER Height: 154. cm Weight: 99.79 kg BSA: 1.96 m2 Heart Rate: 116 bpm BP: 125 / 75 mmHg Shoe Cutter: MERLY Referring MD: Rosales Mccarthy MD Symptoms: chf Study Quality: Technically Difficult w/Contrast ECG Rhythm: Atrial Fibrillation Conclusions: - The left ventricular systolic function is mild to moderately decreased. The calculated ejection fraction is 40% by biplane method. - No obvious valvular pathology seen on this study. Findings Procedure Information Contrast agent, definity, is being given per protocol without apparent complications. The quality of the study was technically difficult. The study quality is limited by the patients inability to tolerate the test and patients body habitus. Left Ventricle Normal left ventricular cavity size. There is moderately increased left ventricular wall thickness. The left ventricular systolic function is mild to moderately decreased. The calculated ejection fraction is 40% by biplane method. There is moderate global hypokinesis. Diastolic function is indeterminate on the basis of available data. Right Ventricle Normal right ventricular cavity size. There is mildly decreased right ventricular systolic function. Atria Both atria are normal in size. Aortic Valve There is mild calcification of the aortic valve. There is no aortic valve regurgitation. No significant aortic stenosis. Mitral Valve There is mild mitral annular calcification. There is no mitral valve regurgitation. There is no mitral valve stenosis. Pulmonic Valve The pulmonic valve is likely normal. Tricuspid Valve There is mild tricuspid valve regurgitation. There is no evidence of pulmonary hypertension. Great Vessels The asc aorta is normal in size. Venous The inferior vena cava was not well visualized. Pericardium/Pleural There is no evidence of pericardial effusion. Prior Study Comparison No significant change compared to prior study dated: 03/21/2022. Recommendations, Care & Conclusions No obvious valvular pathology seen on this study. Measurements 2D Linear Measurements IVSd: 1.17 0.6-0.9/0.6-1.0 cm LVIDd: 3.85 3.9-5.3/4.2-5.9 cm LVIDd Index: 1.96 2.4-3.2/2.2-3.1 cm/m2 LVIDs: 2.60 2.0-3.6 cm LVPWd: 1.40 0.7-1.1 cm LA Diam: 4.30 2.7-3.8/3.0-4.0 cm LAIDs Index: 2.19 1.5-2.3 cm/m2 LV Mass: 215.84 67-162/88-224 g LV Mass Index: 110.12 43-95/49-115 g/m2 LVOT Diam: 2.10 3.0+(-)1.3 cm 2D Systolic Function EF 4C: 40.40 >55% EF 2C: 41.80 >55% EF BiP: 40.00 >55% Mitral Valve MV Pk E: 1.11 MV Decel Time: 167.00 E'Lateral: 5.59 E'Medial: 4.03 E/E' Med: 27.50 E/E' Lat: 19.90 PHT: 49.00 MVA PHT: 4.49 Decel [place]: 6.79 Aortic Valve AoV Pk Edgardo: 1.33 AoV Mn Edgardo: 0.93 AoV VTI: 0.22 AoV Pk Grad: 7.00 Aov Mn Grad: 4.00 SACHI Cont.VTI: 1.24 LVOT LVOT Pk Edgardo: 0.55 LVOT Mn Edgardo: 0.34 LVOT VTI: 0.08 LVOT Pk Grad: 1.00 LVOT Mn Grad: 1.00 LVOT Diam: 2.10 LVOT Area: 3.46 Diastolic Function MV Pk E: 1.11 E'Medial: 4.03 E/E' Med: 27.50 E' Laterial: 5.59 E/E' Lat: 19.90 Right Ventricle TAPSE (mm): 13.30 TVS' Edgardo: 7.98 Tricuspid Valve TR Pk Edgardo: 2.85 TR Pk Grad: 32.00 Great Vessels Aorta Sinus of Valsalva: 3.30 2.0-3.5 cm Ao Asc: 3.20 2.1-3.4 cm Pulmonary Valve PV Pk Edgardo: 0.89 Peak PV Grad: 3.00 Updated in Other Vendor System with Status of Final Clarke Rudolph MD electronically signed on 01/22/2025 3:14:36 PM with status of Final
[2025-01-22 07:36] LABS: Glucose, Whole Blood 72 mg/dL (60-115)
[2025-01-22] MEDS: Furosemide 40 MG/4 ML VIAL IVPUSH (08:13)
--- NOTE | 2025-01-22 09:44 | HO.PM.IMPN ---
Subjective Subjective Date of Service: 01/22/25 Interval History: everything hurts Physical Exam Exam: Exam: General: AO X 3, in acute distress Resp: CTA bilateral, no accessory muscles used CVS: S1,S2,RRR GI: soft, non tender, non distended Neuro: motor grossly intact, alert Vital Signs: Vital Signs: Last Vital Signs Temp 97.8 F 01/22/25 02:24 Pulse 99 01/22/25 04:00 Resp 20 01/22/25 04:00 BP 124/72 01/22/25 08:13 Pulse Ox 96 01/22/25 07:46 O2 Del Method Nasal Cannula 01/22/25 07:46 O2 Flow Rate 3 01/22/25 04:00 Oxygen Flow Rate 2 01/22/25 07:46 BMI result Body Mass Index 41.6 Objective Data Active Medications Acetaminophen (Acetaminophen 325 Mg Tablet) 650 mg PO Q6H PRN PRN Reason: Pain, Mild 1-3,fever,headache Albuterol/Ipratropium (Albuterol/Iprat 2.5/0.5mg 3 Ml Ampul.Neb) 3 ml INHALE RQ4H WHILE AWAKE PRN PRN Reason: Shortness of Breath Apixaban (Apixaban 5 Mg Tablet) 5 mg PO BID [facility] Last Admin: 01/22/25 08:12 Dose: 5 mg Documented By: JOSSELYN Benzonatate (Benzonatate 100 Mg Capsule) 100 mg PO TID PRN PRN Reason: Cough Calcium Carbonate (Calcium Carbonate 750 Mg Tab.Chew) 750 mg PO Q4H PRN PRN Reason: Heartburn Dextrose (Dextrose 50 % 25 Gm/50 Ml Syringe) 25 gm IVPUSH Q15M PRN; Protocol PRN Reason: per Hypoglycemia Standing Ord. Furosemide (Furosemide 40 Mg/4 Ml Vial) 40 mg IVPUSH DAILY [facility]; Protocol Last Admin: 01/22/25 08:13 Dose: 40 mg Documented By: JOSSELYN Glucose (Glucose Gel 15 Gm Gel..Gram.) 15 gm PO Q15M PRN; Protocol PRN Reason: per Hypoglycemia Standing Ord. Insulin Human Lispro (Insulin Lispro 100 Unit/Ml 3 Ml Vial) 0 unit SUBCUT QIDACHS [facility]; Protocol Last Admin: 01/22/25 08:13 Dose: Not Given Documented By: JOSSELYN Non-Admin Reason: No Insulin Coverage Magnesium Hydroxide (Milk Of Magnesia 30 Ml Oral.Susp) 30 ml PO DAILY PRN PRN Reason: Constipation Melatonin (Melatonin 3 Mg Tablet) 6 mg PO BEDTIME PRN PRN Reason: Insomnia Pantoprazole Sodium (Pantoprazole Sodium 40 Mg/10 Ml Vial) 40 mg IVPUSH DAILY@0630 [facility] Last Admin: 01/22/25 06:23 Dose: 40 mg Documented By: THUAN Sodium Chloride (0.9 % Sodium Chloride Flush 3 Ml Syringe) 3 ml IVFLUSH QSHIFT [facility] Last Admin: 01/22/25 08:12 Dose: 3 ml Documented By: JOSSELYN Labs 01/22/25 04:08 01/22/25 04:08 Labs: Laboratory Results - last 24 hr 01/21/25 01/21/25 01/21/25 16:19 16:29 17:33 MCV 90.1 MCH 27.4 MCHC 30.4 L RDW 14.8 Plt Count 235 MPV 9.6 Immature Gran % (Auto) 1.0 H Neut % (Auto) 68.8 Lymph % (Auto) 20.8 [place] % (Auto) 8.6 Eos % (Auto) 0.4 Baso % (Auto) 0.4 Lymph # (Auto) 1.5 [place] # (Auto) 0.6 Eos # (Auto) 0.0 Baso # (Auto) 0.0 Abs Immat Gran (auto) 0.07 H Absolute Neuts (auto) 5.1 Absolute Nucleated RBC 0.000 Nucleated RBC % (auto) 0.0 Anion Gap 10 L Estim Creat Clear Calc 61.3 Estimated GFR > 60 POC Glucose Random Glucose 92 Lactic Acid 1.3 Calcium 9.2 Total Bilirubin 0.5 Direct Bilirubin 0.2 AST 16 ALT 7 Alkaline Phosphatase 151 H Troponin I High Sens 8.5 C-Reactive Protein 1.93 H NT-Pro-B Natriuret Pep 4289.4 H Total Protein 6.6 Albumin 3.7 Urine Color Urine Appearance Urine pH Ur Specific Williams Urine Protein Urine Glucose (UA) Urine Ketones Urine Blood Urine Nitrite Ur Leukocyte Esterase Urine RBC Urine WBC Ur Squamous Epith Cells Calcium Oxalate Crystal Urine Bacteria Hyaline Casts Influenza Type A (PCR) NEGATIVE Influenza Type B (PCR) NEGATIVE RSV RNA Qual (PCR) NEGATIVE SARS-CoV-2 RNA (RT-PCR) NEGATIVE 01/21/25 01/21/25 01/22/25 18:02 20:09 04:08 MCV 91.6 MCH 27.4 MCHC 29.9 L RDW 14.6 Plt Count 226 MPV 9.4 Immature Gran % (Auto) 0.8 H Neut % (Auto) 61.9 Lymph % (Auto) 24.2 [place] % (Auto) 11.4 H Eos % (Auto) 1.1 Baso % (Auto) 0.6 Lymph # (Auto) 1.6 [place] # (Auto) 0.8 Eos # (Auto) 0.1 Baso # (Auto) 0.0 Abs Immat Gran (auto) 0.05 H Absolute Neuts (auto) 4.1 Absolute Nucleated RBC 0.000 Nucleated RBC % (auto) 0.0 Anion Gap 16 Estim Creat Clear Calc 57.4 Estimated GFR > 60 POC Glucose 80 Random Glucose 95 Lactic Acid Calcium 9.4 Total Bilirubin 0.7 Direct Bilirubin AST 20 ALT < 6 Alkaline Phosphatase 166 H Troponin I High Sens C-Reactive Protein NT-Pro-B Natriuret Pep Total Protein 6.9 Albumin 3.8 Urine Color Yellow Urine Appearance Cloudy Urine pH 6.0 Ur Specific Williams 1.020 Urine Protein 100 (2+) H Urine Glucose (UA) Negative Urine Ketones Negative Urine Blood Small (1+) H Urine Nitrite Negative Ur Leukocyte Esterase Negative Urine RBC >20 H Urine WBC 0-5 Ur Squamous Epith Cells 0-2 Calcium Oxalate Crystal Present Urine Bacteria None Seen Hyaline Casts 11-20 Influenza Type A (PCR) Influenza Type B (PCR) RSV RNA Qual (PCR) SARS-CoV-2 RNA (RT-PCR) 01/22/25 07:32 MCV MCH MCHC RDW Plt Count MPV Immature Gran % (Auto) Neut % (Auto) Lymph % (Auto) [place] % (Auto) Eos % (Auto) Baso % (Auto) Lymph # (Auto) [place] # (Auto) Eos # (Auto) Baso # (Auto) Abs Immat Gran (auto) Absolute Neuts (auto) Absolute Nucleated RBC Nucleated RBC % (auto) Anion Gap Estim Creat Clear Calc Estimated GFR POC Glucose 72 Random Glucose Lactic Acid Calcium Total Bilirubin Direct Bilirubin AST ALT Alkaline Phosphatase Troponin I High Sens C-Reactive Protein NT-Pro-B Natriuret Pep Total Protein Albumin Urine Color Urine Appearance Urine pH Ur Specific Williams Urine Protein Urine Glucose (UA) Urine Ketones Urine Blood Urine Nitrite Ur Leukocyte Esterase Urine RBC Urine WBC Ur Squamous Epith Cells Calcium Oxalate Crystal Urine Bacteria Hyaline Casts Influenza Type A (PCR) Influenza Type B (PCR) RSV RNA Qual (PCR) SARS-CoV-2 RNA (RT-PCR) Assessment and Plan (1) Congestive heart failure: Status: Acute Plan 84F PMH chornic diastolic chf, CAD, htn, hld, DM, chronic pain syndrome, history of C diff, COPD, abdominal aortic aneurysm, hypothyroid, fibromyalgia, restrictive lung disease, morbid obesity presented with abdominal pain Acute on chronic diastolic CHF IV Lasix, echo, cardio eval Diffuse pain most concentrated in abdomen in a patient with chronic pain Possible contribution of constipation, MiraLax and Dulcolax ordered Morbid obesity Weight loss recommended CAD Continue apixaban COPD Stable Diabetes Insulin sliding scale DVT prophylaxis with apixaban Full code reason for continued hospitalization: IV diuresis, pain Quality Stroke Does the patient have a stroke diagnosis?: No VTE Prior VTE?: No VTE Risk Level:: Medical - moderate - high VTE Device Contraindication: Treatment Not Indicated VTE Drug Contraindication: N/A - Med Ordered
--- NOTE | 2025-01-22 10:31 | P.CONCA_ITS ---
History of Present Illness History of Present Illness Date of Service: 01/22/25 Chief complaint: SOB Narrative: This is a cardiology consultation regarding congestive heart failure. When evaluated the patient, she is lying down and essentially she states that she is in just having pain everywhere. That has any her main complaint. Per notes, she had reported abdominal pain and nausea for the last few days. Additionally, some chest pain, some shortness of breath and pain in diary body. Then had workup in the ER with CTA abdomen/pelvis which apparently had no acute findings. There was concern for congestive heart failure and she was then admitted. Currently, she states that everything hurts which is in fact her primary complaint. At baseline apparently she has minimal morbidity if any. She is mostly in bed according to her. Last seen in clinic in 2021. At that time, based on notes, she has paroxysmal atrial fibrillation, nonobstructive disease on cardiac catheterization. Review of Systems 2 Review of Systems: Yes all other systems are reviewed and are negative Constitutional: Constitutional: Reports as per HPI, Reports no additional constitutional complaints, Reports fatigue, Reports lethargy, Reports malaise and Reports weakness Eyes: Eyes: Reports as per HPI and Denies no additional eye complaints ENT: Denies system reviewed and no additional complaints, except as documented and Reports as per HPI Cardiovascular: Cardiovascular: Reports as per HPI, Reports no additional cardiovascular complaints, Denies acrocyanosis, Denies cool extremities, Reports chest pain, Denies leg edema, Denies lightheadedness, Reports palpitations and Reports dyspnea Respiratory: Respiratory: Reports as per HPI, Denies no additional respiratory complaints and Reports dyspnea Gastrointestinal: Gastrointestinal: Reports as per HPI and Denies no additional gastrointestinal complaints Genitourinary: Genitourinary: Reports as per HPI Musculoskeletal: Musculoskeletal: Reports no additional musculoskeletal complaints and Reports as per HPI Integumentary/Breasts: Skin/Breast: Reports system reviewed and no additional complaints, except as docu Neurologic: Reports system reviewed and no additional complaints, except as documented, Reports as per HPI and Reports weakness Psychiatric: Psychiatric: Reports no additional psychiatric complaints and Reports as per HPI Endocrine: Endocrine: Reports no additional endocrine complaints, Reports as per HPI, Reports fatigue and Reports palpitations Hematologic/Lymphatic: Hematologic/Lymphatic: Reports no additional hematologic/lymphatic complaints and Reports as per HPI Allergic/Immunologic: Allergic/Immunologic: Reports no additional allergic/immunologic complaints and Reports as per HPI PMFSH Past Medical History Medical History (Updated 01/22/25 @ 10:44 by Clarke Rudolph MD) COPD (chronic obstructive pulmonary disease) Strong odor of stools Dysuria Pulmonary nodules Diarrhea Weakness Bradycardia Ingrowing nail Impacted cerumen of right ear Urinary incontinence Impacted cerumen of right ear Pulmonary nodule Chronic anticoagulation First degree atrioventricular block Atrial fibrillation Chronic pain syndrome 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 Low back pain Respiratory failure with hypoxia and hypercapnia Lower extremity weakness Nasal congestion Otitis externa Coronary artery disease Restrictive lung disease Diarrhea History of spinal stenosis Fibromyalgia Obesity (BMI 30-39.9) Carpal tunnel syndrome Abdominal aortic aneurysm Hypothyroid Obstructive sleep apnea Congestive heart failure Pernicious anemia Paroxysmal atrial fibrillation DVT (deep venous thrombosis) Diverticulitis GERD (gastroesophageal reflux disease) HTN (hypertension) Clostridium difficile colitis CAD (coronary artery disease) Hypercholesterolemia Family History Family History Father Hypertension CVD (cardiovascular disease) Mother Colon cancer Sister Leukemia Sister Colon cancer Son Lung cancer Colon polyps Surgical History Surgical History History of hip surgery S/P BREANN-BSO (total abdominal hysterectomy and bilateral salpingo-oophorectomy) History of arthroplasty of left shoulder Hx of cholecystectomy H/O angioplasty Hx of appendectomy H/O cardiac catheterization Social History Social History Household Members: None Household Members Other:: self Housing: Apartment Do you presently have visiting nurse or other home services: Yes (Nurses to prep meds. TEAM COORDINATOR everyday 3x a day) Alcohol intake: never Patient Tobacco Use Status: Former Tobacco user Tobacco use type: Cigarette Years Smoked: stopped 2010 Smoked in Last 30 Days: No e-Cigarette/Vaping Use: Never Used Second Hand Smoke Exposure: Yes Use of substances other than those prescribed or required for medical reasons: No Advance Directives: Yes Advance Directives on File: Yes Advance Directives Date on File: 10/10/21 service: No Current occupational status: retired Current occupational exposures/hazards: No Cognitive needs: No Hearing needs: No Vision needs: Yes Meds Allergies Allergy/AdvReac Type Severity Reaction Status Date / Time morphine (MORPHINE) Allergy Unknown RASH Verified 01/21/25 15:34 pregabalin (From LYRICA) Allergy Unknown NAUSEA, Verified 01/21/25 15:34 felt high on drugs Active Medications: Current Medications Acetaminophen (Acetaminophen 325 Mg Tablet) 650 mg PO Q6H PRN PRN Reason: Pain, Mild 1-3,fever,headache Albuterol/Ipratropium (Albuterol/Iprat 2.5/0.5mg 3 Ml Ampul.Neb) 3 ml INHALE RQ4H WHILE AWAKE PRN PRN Reason: Shortness of Breath Apixaban (Apixaban 5 Mg Tablet) 5 mg PO BID [facility] Last Admin: 01/22/25 08:12 Dose: 5 mg Benzonatate (Benzonatate 100 Mg Capsule) 100 mg PO TID PRN PRN Reason: Cough Calcium Carbonate (Calcium Carbonate 750 Mg Tab.Chew) 750 mg PO Q4H PRN PRN Reason: Heartburn Dextrose (Dextrose 50 % 25 Gm/50 Ml Syringe) 25 gm IVPUSH Q15M PRN; Protocol PRN Reason: per Hypoglycemia Standing Ord. Furosemide (Furosemide 40 Mg/4 Ml Vial) 40 mg IVPUSH DAILY [facility]; Protocol Last Admin: 01/22/25 08:13 Dose: 40 mg Glucose (Glucose Gel 15 Gm Gel..Gram.) 15 gm PO Q15M PRN; Protocol PRN Reason: per Hypoglycemia Standing Ord. Insulin Human Lispro (Insulin Lispro 100 Unit/Ml 3 Ml Vial) 0 unit SUBCUT QIDACHS [facility]; Protocol Last Admin: 01/22/25 08:13 Dose: Not Given Magnesium Hydroxide (Milk Of Magnesia 30 Ml Oral.Susp) 30 ml PO DAILY PRN PRN Reason: Constipation Melatonin (Melatonin 3 Mg Tablet) 6 mg PO BEDTIME PRN PRN Reason: Insomnia Pantoprazole Sodium (Pantoprazole Sodium 40 Mg/10 Ml Vial) 40 mg IVPUSH DAILY@0630 [facility] Last Admin: 01/22/25 06:23 Dose: 40 mg Sodium Chloride (0.9 % Sodium Chloride Flush 3 Ml Syringe) [facility] Last Admin: 01/22/25 08:12 Dose: 3 ml Home Medications ?Medication ?Instructions ?Recorded ?Confirmed ?Last Taken ?Type cholecalciferol (vitamin D3) 25 25 mcg PO DAILY 07/14/2323 History mcg (1,000 unit) capsule (Vitamin D3) dicyclomine 10 mg capsule 10 mg PO Q6H PRN Abdominal P ain 12/01/19 12/24/24 Unknown History aspirin 81 mg tablet,delayed 81 mg PO DAILY 07/08/23 0 07/14/23 Unknown History release acetaminophen 650 mg 650 mg PO Q8H PRN Pain 07/1307/14/23 Unknown History tablet,extended release ipratropium 0.5 mg-albuterol 3 mg 3 ml inhalation QID PRN Shortness 07/14/23 07/14/23 Unknown History (2.5 mg base)/3 mL nebulization Of Breath Or Wheezing soln fluticasone 500 mcg-salmeterol 50 1 inh inhalation BID 11/27/24 Unknown History mcg/dose blistr powdr for inhalation (Wixela Inhub) duloxetine 30 mg capsule,delayed 30 mg PO DAILY Unknown History release Physical Exam 2 Vital Signs: Vital Signs: Last Vital Signs Temp 97.8 F 01/22/25 02:24 Pulse 99 01/22/25 04:00 Resp 20 01/22/25 04:00 BP 124/72 01/22/25 08:13 Pulse Ox 96 01/22/25 07:46 O2 Del Method Nasal Cannula 01/22/25 07:46 O2 Flow Rate 3 01/22/25 04:00 Oxygen Flow Rate 2 01/22/25 07:46 BMI result Body Mass Index 41.6 Const: General: cooperative, alert, awake, ill appearing and tired appearing Orientation/consciousness: patient oriented x3 HEENT: Other: Unremarkable Head: Yes normal to inspection Neck: Neck: Yes normal visual inspection Chest: Chest palpation & inspection: normal inspection of the chest Resp: Auscultation: clear to auscultation bilaterally Cardio: Palpation: normal PMI Heart sounds: S1 normal heart sound present, S2 normal heart sound present, no gallops, no murmurs and no rubs GI: Palpation (GI): Soft to palpation Back/Spine/Pelvis: Other: unremarkable Skin: General skin exam: no rashes or lesions noted Neuro: General: patient oriented x3 Extrem: General: Yes normal to inspection Psych: Mental Status: mental status grossly normal Objective Labs and Meds 01/22/25 04:08 01/22/25 04:08 Lab results: Laboratory Results - last 24 hr 01/21/25 01/21/25 01/21/25 16:19 16:29 17:33 WBC 7.3 RBC 4.53 Hgb 12.4 Hct 40.8 MCV 90.1 MCH 27.4 MCHC 30.4 L RDW 14.8 Plt Count 235 MPV 9.6 Immature Gran % (Auto) 1.0 H Neut % (Auto) 68.8 Lymph % (Auto) 20.8 [place] % (Auto) 8.6 Eos % (Auto) 0.4 Baso % (Auto) 0.4 Lymph # (Auto) 1.5 [place] # (Auto) 0.6 Eos # (Auto) 0.0 Baso # (Auto) 0.0 Abs Immat Gran (auto) 0.07 H Absolute Neuts (auto) 5.1 Absolute Nucleated RBC 0.000 Nucleated RBC % (auto) 0.0 Sodium 143 Potassium 4.3 Chloride 106 Carbon Dioxide 31 H Anion Gap 10 L BUN 16 Creatinine 0.74 Estim Creat Clear Calc 61.3 Estimated GFR > 60 POC Glucose Random Glucose 92 Lactic Acid 1.3 Calcium 9.2 Total Bilirubin 0.5 Direct Bilirubin 0.2 AST 16 ALT 7 Alkaline Phosphatase 151 H Troponin I High Sens 8.5 C-Reactive Protein 1.93 H NT-Pro-B Natriuret Pep 4289.4 H Total Protein 6.6 Albumin 3.7 Urine Color Urine Appearance Urine pH Ur Specific [place] Urine Protein Urine Glucose (UA) Urine Ketones Urine Blood Urine Nitrite Ur Leukocyte Esterase Urine RBC Urine WBC Ur Squamous Epith Cells Calcium Oxalate Crystal Urine Bacteria Hyaline Casts Influenza Type A (PCR) NEGATIVE Influenza Type B (PCR) NEGATIVE RSV RNA Qual (PCR) NEGATIVE SARS-CoV-2 RNA (RT-PCR) NEGATIVE 01/21/25 01/21/25 01/22/25 18:02 20:09 04:08 WBC 6.6 RBC 4.31 Hgb 11.8 L Hct 39.5 MCV 91.6 MCH 27.4 MCHC 29.9 L RDW 14.6 Plt Count 226 MPV 9.4 Immature Gran % (Auto) 0.8 H Neut % (Auto) 61.9 Lymph % (Auto) 24.2 [place] % (Auto) 11.4 H Eos % (Auto) 1.1 Baso % (Auto) 0.6 Lymph # (Auto) 1.6 [place] # (Auto) 0.8 Eos # (Auto) 0.1 Baso # (Auto) 0.0 Abs Immat Gran (auto) 0.05 H Absolute Neuts (auto) 4.1 Absolute Nucleated RBC 0.000 Nucleated RBC % (auto) 0.0 Sodium 147 H Potassium 3.9 Chloride 101 Carbon Dioxide 34 H Anion Gap 16 BUN 13 Creatinine 0.79 Estim Creat Clear Calc 57.4 Estimated GFR > 60 POC Glucose 80 Random Glucose 95 Lactic Acid Calcium 9.4 Total Bilirubin 0.7 Direct Bilirubin AST 20 ALT < 6 Alkaline Phosphatase 166 H Troponin I High Sens C-Reactive Protein NT-Pro-B Natriuret Pep Total Protein 6.9 Albumin 3.8 Urine Color Yellow Urine Appearance Cloudy Urine pH 6.0 Ur Specific [place] 1.020 Urine Protein 100 (2+) H Urine Glucose (UA) Negative Urine Ketones Negative Urine Blood Small (1+) H Urine Nitrite Negative Ur Leukocyte Esterase Negative Urine RBC >20 H Urine WBC 0-5 Ur Squamous Epith Cells 0-2 Calcium Oxalate Crystal Present Urine Bacteria None Seen Hyaline Casts 11-20 Influenza Type A (PCR) Influenza Type B (PCR) RSV RNA Qual (PCR) SARS-CoV-2 RNA (RT-PCR) 01/22/25 07:32 WBC RBC Hgb Hct MCV MCH MCHC RDW Plt Count MPV Immature Gran % (Auto) Neut % (Auto) Lymph % (Auto) [place] % (Auto) Eos % (Auto) Baso % (Auto) Lymph # (Auto) [place] # (Auto) Eos # (Auto) Baso # (Auto) Abs Immat Gran (auto) Absolute Neuts (auto) Absolute Nucleated RBC Nucleated RBC % (auto) Sodium Potassium Chloride Carbon Dioxide Anion Gap BUN Creatinine Estim Creat Clear Calc Estimated GFR POC Glucose 72 Random Glucose Lactic Acid Calcium Total Bilirubin Direct Bilirubin AST ALT Alkaline Phosphatase Troponin I High Sens C-Reactive Protein NT-Pro-B Natriuret Pep Total Protein Albumin Urine Color Urine Appearance Urine pH Ur Specific [place] Urine Protein Urine Glucose (UA) Urine Ketones Urine Blood Urine Nitrite Ur Leukocyte Esterase Urine RBC Urine WBC Ur Squamous Epith Cells Calcium Oxalate Crystal Urine Bacteria Hyaline Casts Influenza Type A (PCR) Influenza Type B (PCR) RSV RNA Qual (PCR) SARS-CoV-2 RNA (RT-PCR) ECG Interpretation: EKG with atrial fibrillation at a rate of 111/Min; rightward axis; cannot exclude old septal infarct. Imaging Radiologist's impression: Impressions Chest X-Ray 01/21/25 16:33 IMPRESSION: Cardiomegaly. The right lung shows increased reticular markings and groundglass density which in part may be due to overlying soft tissues/body habitus but underlying acute pulmonary process such as early changes from interstitial edema or atypical/viral pneumonia is not ruled out. Electronically signed by: Melvin Martinez MD 01/21/2025 04:46 PM [facility] Assessment and Plan (1) Acute on chronic heart failure: Status: Acute (2) Atrial fibrillation: Status: Acute Plan Elevated NT pro BNP. High sensitivity troponins within range. EKG shows atrial fibrillation with slightly rapid rate. Chest CT reported have possible mild interstitial edema. Last echocardiogram from 2022 with LVEF of 40-45%. Overall, constitutional complaints like aches and pains, possibly some shortness of breath and associated palpitations but difficult to delineate from her generalized complaints. Clinically, in atrial fibrillation and possibly some congestive heart failure. IV diuretics. She is already on metoprolol and diltiazem at home and and he does not appear that she got a dose. May resume and see how her heart rate is. If needed, consider digoxin. She is a poor candidate for rhythm control. Already on anticoagulation and continue that. Procedures Date of Service Date of Service: 01/22/25
[2025-01-22 12:39] LABS: Glucose, Whole Blood 63 mg/dL (60-115)
--- NOTE | 2025-01-22 12:46 | PC.NURSE ---
1230 POC 63 No s/sx of hypoglycemia Admnistered D50 per MAR, effectiveness pending
--- NOTE | 2025-01-22 12:49 | PHA.MEDREC ---
Addendum entered by Juan Viramontes PharmD 01/22/25 12:59: reviewed Original Note: Pharmacy Consult ? Medication Reconciliation Pharmacy has completed the medication reconciliation. Attempted to speak with pt multiple time with no luck due to how somnolent pt is at this time. Called pt sister and she was no help with confirming pt meds at this time nor where the pt VNA services are at this time. Pm team 01/21 received a Visit Summary, dated from 10/29/2024 and it had a med list that we utilized and confirm pt med rec.
--- NOTE | 2025-01-22 12:56 | MHC.EDTECH ---
pt refused lunch tray at this time, RN aware
[2025-01-22 12:58] LABS: Glucose, Whole Blood 131 mg/dL (60-115)
--- NOTE | 2025-01-22 12:59 | PC.NURSE ---
POC [id number] no s/sx of hypoglycemia
--- NOTE | 2025-01-22 14:42 | MHC.CM.PN ---
Addendum entered by Betty Benson 01/30/25 15:54: PT IS ACTIVE WITH [facility] Original Note: IMM 01/22/25, Pt. lives alone, she is bedbound and has COMMERCIAL COUNSEL with her all the time, she said the name of the agency in the [place]. She has a nurse that comes every 2 days, from [facility]. PCP is confirmed: Dr. Lay, Transport home at DC will be by BLS. HCP is on file and confirmed: Gio. DCP: home, resume services, CM to follow for DC needs.
[2025-01-22 16:19] LABS: Glucose, Whole Blood 121 mg/dL (60-115)
[2025-01-22 20:17] LABS: Glucose, Whole Blood 101 mg/dL (60-115)
[2025-01-22] MEDS: Albuterol/Iprat 2.5/0.5MG 3 ML AMPUL.NEB INHALE (22:09)
[2025-01-23] VITALS (9 sets, daily range): BP systolic 100–119; BP diastolic 52–78; PULSE 72–110; RESP 14–20; TEMP 35.9–36.6; O2SAT 92–97
[2025-01-23 07:20] LABS: Hematocrit 40.8 % (37.0-47.0); Hemoglobin 12.3 g/dl (12.0-16.0); Mean Corpuscular HGB Conc 30.1 g/dl (31.0-35.0); Mean Corpuscular Hemoglobin 27.5 pg (27.0-33.0); Mean Corpuscular Volume 91.3 fL (80.0-98.0); NRBC Abs Auto 0.000 X10*3/uL (0.0-0.012); NRBC Pct Auto 0.0 /100WBC (0.0-0.2); Platelet Count 260 X10*3/uL (160-400); Red Blood Count 4.47 X10*6/uL (4.20-5.50); White Blood Count 9.5 X10*3/uL (4.8-10.8)
[2025-01-23] MEDS: Fluticasone/Vilanterol 200/25 BLST.W.DEV 1 PUFF INHALE (07:40)
[2025-01-23] MEDS: Albuterol/Iprat 2.5/0.5MG 3 ML AMPUL.NEB INHALE ×2 (07:41→20:35)
[2025-01-23 07:47] LABS: Anion Gap 16 (12-20); Blood Urea Nitrogen 20 mg/dL (9-16); Calcium 9.5 mg/dL (8.4-10.2); Carbon Dioxide 37 mmol/L (22-29); Chloride 96 mmol/L (96-108); Creatinine Clr Calc Pharmacy 53.6; Estimated Glomerular Filt Rate > 60; Magnesium 1.8 mg/dL (1.6-2.6); Potassium 3.8 mmol/L (3.3-5.1); Sodium 145 mmol/L (135-145)
[2025-01-23 08:06] LABS: Glucose, Whole Blood 94 mg/dL (60-115)
[2025-01-23] MEDS: Furosemide 40 MG/4 ML VIAL IVPUSH (09:04)
[2025-01-23] MEDS: 0.9 % Sodium Chloride Flush 3 ML SYRINGE IVFLUSH ×3 (09:05→20:23)
[2025-01-23] MEDS: Aspirin Enteric Coated 81 MG TABLET.DR PO (09:58)
[2025-01-23] MEDS: dilTIAZem HCL CD 120 MG CAP.ER.DEG PO (09:58)
[2025-01-23] MEDS: Metoprolol Succinate ER 100 MG TAB.ER.24H PO (09:58)
--- NOTE | 2025-01-23 10:26 | P.PNIM_ITS ---
Subjective Subjective Date of Service: 01/23/25 Interval History: everything hurts Physical Exam 2 Vital Signs: Vital Signs: Last Vital Signs Temp 97.8 F 01/23/25 08:00 Pulse 72 01/23/25 08:00 Resp 18 01/23/25 08:00 BP 119/78 01/23/25 08:00 Pulse Ox 97 01/23/25 08:00 O2 Del Method Room Air 01/23/25 08:00 O2 Flow Rate 2 01/23/25 03:22 Oxygen Flow Rate 2 01/22/25 07:46 BMI result Body Mass Index 39.4 Const: General: cooperative, alert, awake, ill appearing and tired appearing Orientation/consciousness: patient oriented x3 HEENT: Other: Unremarkable Head: Yes normal to inspection Neck: Neck: Yes normal visual inspection Chest: Chest palpation & inspection: normal inspection of the chest Resp: Auscultation: clear to auscultation bilaterally Cardio: Palpation: normal PMI Heart sounds: S1 normal heart sound present, S2 normal heart sound present, no gallops, no murmurs and no rubs GI: Palpation (GI): Soft to palpation Back/Spine/Pelvis: Other: unremarkable Skin: General skin exam: no rashes or lesions noted Neuro: General: patient oriented x3 Extrem: General: Yes normal to inspection Psych: Mental Status: mental status grossly normal Objective Data Active Medications Acetaminophen (Acetaminophen 325 Mg Tablet) 650 mg PO Q6H PRN PRN Reason: Pain, Mild 1-3,fever,headache Last Admin: 01/23/25 09:59 Dose: 650 mg Documented By: PIPER Albuterol/Ipratropium (Albuterol/Iprat 2.5/0.5mg 3 Ml Ampul.Neb) 3 ml INHALE RQ4H WHILE AWAKE PRN PRN Reason: Shortness of Breath Last Admin: 01/23/25 07:41 Dose: 3 ml Documented By: EZEQUIEL Apixaban (Apixaban 5 Mg Tablet) 5 mg PO BID [facility] Last Admin: 01/23/25 09:58 Dose: 5 mg Documented By: PIPER Ascorbic Acid (Ascorbic Acid 500 Mg Tablet) 500 mg PO BID [facility] Last Admin: 01/23/25 09:58 Dose: 500 mg Documented By: PIPER Aspirin (Aspirin Enteric Coated 81 Mg Tablet.) 81 mg PO DAILY [facility] Last Admin: 01/23/25 09:58 Dose: 81 mg Documented By: PIPER Atorvastatin Calcium (Atorvastatin Calcium 80 Mg Tablet) 80 mg PO BEDTIME [facility] Last Admin: 01/22/25 20:44 Dose: 80 mg Documented By: OFELIA Benzonatate (Benzonatate 100 Mg Capsule) 100 mg PO TID PRN PRN Reason: Cough Calcium Carbonate (Calcium Carbonate 750 Mg Tab.Chew) 750 mg PO Q4H PRN PRN Reason: Heartburn Dextrose (Dextrose 50 % 25 Gm/50 Ml Syringe) 25 gm IVPUSH Q15M PRN; Protocol PRN Reason: per Hypoglycemia Standing Ord. Last Admin: 01/22/25 12:42 Dose: 25 gm Documented By: JOSSELYN Diltiazem HCl (Diltiazem Hcl Cd 120 Mg Cap.Er.Deg) 120 mg PO DAILY [facility]; Protocol Last Admin: 01/23/25 09:58 Dose: 120 mg Documented By: PIPER Duloxetine HCl (Duloxetine Hcl 30 Mg Capsule.) 30 mg PO DAILY [facility] Last Admin: 01/23/25 09:59 Dose: 30 mg Documented By: PIPER Ezetimibe (Ezetimibe 10 Mg Tablet) 10 mg PO DAILY [facility] Last Admin: 01/23/25 09:59 Dose: 10 mg Documented By: PIPER Fluticasone/Vilanterol (Fluticasone/Vilanterol 200/25 Blst.W.Dev) 1 puff INHALE RDAILY [facility] Last Admin: 01/23/25 07:40 Dose: 1 puff Documented By: EZEQUIEL Furosemide (Furosemide 40 Mg/4 Ml Vial) 40 mg IVPUSH DAILY [facility]; Protocol Last Admin: 01/23/25 09:04 Dose: 40 mg Documented By: PIPER Gabapentin (Gabapentin 100 Mg Capsule) 100 mg PO BEDTIME [facility] Last Admin: 01/22/25 20:44 Dose: 100 mg Documented By: OFELIA Glucose (Glucose Gel 15 Gm Gel..Gram.) 15 gm PO Q15M PRN; Protocol PRN Reason: per Hypoglycemia Standing Ord. Insulin Human Lispro (Insulin Lispro 100 Unit/Ml 3 Ml Vial) 0 unit SUBCUT QIDACHS [facility]; Protocol Last Admin: 01/23/25 09:05 Dose: Not Given Documented By: PIPER Non-Admin Reason: No Insulin Coverage Levothyroxine Sodium (Levothyroxine Sodium 100 Mcg Tablet) 100 mcg PO DAILY@0600 [facility] Last Admin: 01/23/25 05:25 Dose: 100 mcg Documented By: OFELIA Magnesium Hydroxide (Milk Of Magnesia 30 Ml Oral.Susp) 30 ml PO DAILY PRN PRN Reason: Constipation Melatonin (Melatonin 3 Mg Tablet) 6 mg PO BEDTIME PRN PRN Reason: Insomnia Metoprolol Succinate (Metoprolol Succinate Er 100 Mg Tab.Er.24h) 100 mg PO DAILY [facility]; Protocol Last Admin: 01/23/25 09:58 Dose: 100 mg Documented By: PIPER Ondansetron HCl (Ondansetron Hcl 4 Mg/2 Ml Vial) 4 mg IVPUSH Q6H PRN PRN Reason: Nausea Last Admin: 01/23/25 09:31 Dose: 4 mg Documented By: PIPER Pantoprazole Sodium (Pantoprazole Sodium 40 Mg/10 Ml Vial) 40 mg IVPUSH DAILY@0630 [facility] Last Admin: 01/23/25 05:25 Dose: 40 mg Documented By: OFELIA Sodium Chloride (0.9 % Sodium Chloride Flush 3 Ml Syringe) 3 ml IVFLUSH QSHIFT [facility] Last Admin: 01/23/25 09:05 Dose: 3 ml Documented By: PIPER Thiamine HCl (Thiamine Hcl 100 Mg Tablet) 100 mg PO DAILY [facility] Last Admin: 01/23/25 09:59 Dose: 100 mg Documented By: PIPER Vitamin D (Cholecalciferol (Vitamin D3) 25 Mcg Tablet) 25 mcg PO DAILY [facility] Last Admin: 01/23/25 09:58 Dose: 25 mcg Documented By: PIPER Labs 01/23/25 06:27 01/23/25 06:27 Labs: Laboratory Results - last 24 hr 01/22/25 01/22/25 01/22/25 12:35 12:54 16:15 MCV MCH MCHC RDW Plt Count MPV Absolute Nucleated RBC Nucleated RBC % (auto) Anion Gap Estim Creat Clear Calc Estimated GFR POC Glucose 63 131 H 121 H Random Glucose Calcium Magnesium 01/22/25 01/23/25 01/23/25 19:44 06:27 08:00 MCV 91.3 MCH 27.5 MCHC 30.1 L RDW 14.6 Plt Count 260 MPV 9.7 Absolute Nucleated RBC 0.000 Nucleated RBC % (auto) 0.0 Anion Gap 16 Estim Creat Clear Calc 53.6 Estimated GFR > 60 POC Glucose 101 94 Random Glucose 89 Calcium 9.5 Magnesium 1.8 Microbiology Microbiology Results: Microbiology 01/21/25 16:29 Blood Culture - Preliminary Blood - Venous No growth after 24 hours. 01/21/25 16:20 Blood Culture - Preliminary Blood - Venous No growth after 24 hours. Assessment and Plan (1) Congestive heart failure: Status: Acute Plan 84F PMH chornic systolic chf, CAD, htn, hld, DM, chronic pain syndrome, history of C diff, COPD, abdominal aortic aneurysm, hypothyroid, fibromyalgia, restrictive lung disease, morbid obesity presented with abdominal pain Acute on chronic systolic CHF IV Lasix, cardio appreciated Diffuse pain most concentrated in abdomen in a patient with chronic pain Possible contribution of constipation, continue bowel regiment Morbid obesity Weight loss recommended CAD Continue apixaban COPD Stable Diabetes Insulin sliding scale DVT prophylaxis with apixaban Full code reason for continued hospitalization: IV diuresis, pain Quality Stroke Does the patient have a stroke diagnosis?: No VTE Prior VTE?: No VTE Risk Level:: Medical - moderate - high VTE Device Contraindication: Treatment Not Indicated VTE Drug Contraindication: N/A - Med Ordered
--- NOTE | 2025-01-23 10:58 | PM.PNCARD ---
Subjective Subjective Date of Service: 01/23/25 Interval history: Generalized discomfort and constitutional complaints. Nothing definitively cardiac. Lying in bed. Review of Systems Review of Systems Yes all other systems are reviewed and are negative Constitutional: Reports as per HPI and Reports no additional constitutional complaints Eyes: Reports as per HPI and Denies no additional eye complaints Denies system reviewed and no additional complaints, except as documented and Reports as per HPI Cardiovascular: Reports as per HPI, Reports no additional cardiovascular complaints, Denies acrocyanosis, Denies cool extremities, Denies chest pain, Denies leg edema, Denies lightheadedness, Denies palpitations and Reports dyspnea Respiratory: Reports as per HPI, Denies no additional respiratory complaints and Reports dyspnea Gastrointestinal: Reports as per HPI and Denies no additional gastrointestinal complaints Genitourinary: Reports as per HPI Musculoskeletal: Reports no additional musculoskeletal complaints and Reports as per HPI Skin/Breast: Reports system reviewed and no additional complaints, except as docu Reports system reviewed and no additional complaints, except as documented and Reports as per HPI Psychiatric: Reports no additional psychiatric complaints and Reports as per HPI Endocrine: Reports no additional endocrine complaints, Reports as per HPI and Denies palpitations Hematologic/Lymphatic: Reports no additional hematologic/lymphatic complaints and Reports as per HPI Allergic/Immunologic: Reports no additional allergic/immunologic complaints and Reports as per HPI Physical Exam Vital Signs: Last Vital Signs Temp 97.8 F 01/23/25 08:00 Pulse 72 01/23/25 08:00 Resp 18 01/23/25 08:00 BP 119/78 01/23/25 08:00 Pulse Ox 97 01/23/25 08:00 O2 Del Method Room Air 01/23/25 08:00 O2 Flow Rate 2 01/23/25 03:22 Oxygen Flow Rate 2 01/22/25 07:46 BMI result Body Mass Index 39.4 Const General: cooperative, alert, awake, ill appearing and tired appearing Orientation/consciousness: patient oriented x3 HEENT Other: Unremarkable Head: Yes normal to inspection Neck Neck: Yes normal visual inspection Chest Chest palpation & inspection: normal inspection of the chest Resp Auscultation: clear to auscultation bilaterally Cardio Palpation: normal PMI Heart sounds: S1 normal heart sound present, S2 normal heart sound present, no gallops, no murmurs and no rubs GI Palpation (GI): Soft to palpation Back/Spine/Pelvis Other: unremarkable Skin General skin exam: no rashes or lesions noted Neuro General: patient oriented x3 Extrem General: Yes normal to inspection Psych Mental Status: mental status grossly normal Objective Labs and Meds 01/23/25 06:27 01/23/25 06:27 Lab results: Laboratory Results - last 24 hr 01/22/25 01/22/25 01/22/25 12:35 12:54 16:15 WBC RBC Hgb Hct MCV MCH MCHC RDW Plt Count MPV Absolute Nucleated RBC Nucleated RBC % (auto) Sodium Potassium Chloride Carbon Dioxide Anion Gap BUN Creatinine Estim Creat Clear Calc Estimated GFR POC Glucose 63 131 H 121 H Random Glucose Calcium Magnesium 01/22/25 01/23/25 01/23/25 19:44 06:27 08:00 WBC 9.5 RBC 4.47 Hgb 12.3 Hct 40.8 MCV 91.3 MCH 27.5 MCHC 30.1 L RDW 14.6 Plt Count 260 MPV 9.7 Absolute Nucleated RBC 0.000 Nucleated RBC % (auto) 0.0 Sodium 145 Potassium 3.8 Chloride 96 Carbon Dioxide 37 H Anion Gap 16 BUN 20 H Creatinine 0.82 Estim Creat Clear Calc 53.6 Estimated GFR > 60 POC Glucose 101 94 Random Glucose 89 Calcium 9.5 Magnesium 1.8 Progress Note: A&P Assessment and plan (1) Acute on chronic heart failure: Status: Acute (2) Atrial fibrillation: Status: Acute Plan Elevated NT pro BNP. High sensitivity troponins within range. EKG shows atrial fibrillation with slightly rapid rate. Chest CT reported have possible mild interstitial edema. Echocardiogram from this admission with LVEF of 40%. In the prior study from 2022, LVEF similar at 40-45%. Overall, constitutional complaints like aches and pains, possibly some shortness of breath and associated palpitations but difficult to delineate from her generalized complaints. Clinically, in atrial fibrillation and possibly some congestive heart failure. IV diuretics. Continue her usual dose of metoprolol and diltiazem. If necessary, we can add digoxin. Not a good candidate for rhythm control. Otherwise, continue anticoagulation. Multiple comorbidities, minimal to no ambulation, guarded prognosis. Time Spent With Patient Time: Total time managing care of this patient today ____ minutes. Progress Note: Quality Stroke Does the patient have a stroke diagnosis?: No Procedures Date of Service Date of Service: 01/23/25
[2025-01-23 11:41] LABS: Glucose, Whole Blood 103 mg/dL (60-115)
[2025-01-23 16:48] LABS: Glucose, Whole Blood 92 mg/dL (60-115)
[2025-01-23 20:11] LABS: Glucose, Whole Blood 104 mg/dL (60-115)
[2025-01-24] VITALS (8 sets, daily range): BP systolic 92–123; BP diastolic 55–64; PULSE 69–88; RESP 18–20; TEMP 36.1–36.5; O2SAT 92–97
[2025-01-24 06:46] LABS: Hematocrit 38.5 % (37.0-47.0); Hemoglobin 11.9 g/dl (12.0-16.0); Mean Corpuscular HGB Conc 30.9 g/dl (31.0-35.0); Mean Corpuscular Hemoglobin 28.0 pg (27.0-33.0); Mean Corpuscular Volume 90.6 fL (80.0-98.0); NRBC Abs Auto 0.000 X10*3/uL (0.0-0.012); NRBC Pct Auto 0.0 /100WBC (0.0-0.2); Platelet Count 246 X10*3/uL (160-400); Red Blood Count 4.25 X10*6/uL (4.20-5.50); White Blood Count 9.4 X10*3/uL (4.8-10.8)
[2025-01-24 07:09] LABS: Anion Gap 13 (12-20); Blood Urea Nitrogen 32 mg/dL (9-16); Calcium 9.2 mg/dL (8.4-10.2); Carbon Dioxide 36 mmol/L (22-29); Chloride 95 mmol/L (96-108); Creatinine Clr Calc Pharmacy 35.1; Estimated Glomerular Filt Rate 41; Magnesium 1.8 mg/dL (1.6-2.6); Potassium 4.1 mmol/L (3.3-5.1); Sodium 140 mmol/L (135-145)
[2025-01-24 07:26] LABS: Erythrocyte Sedimentation Rate 32 MM/HR (0-20)
[2025-01-24] MEDS: Fluticasone/Vilanterol 200/25 BLST.W.DEV 1 PUFF INHALE (07:28)
[2025-01-24] MEDS: Furosemide 40 MG/4 ML VIAL IVPUSH (08:00)
[2025-01-24] MEDS: dilTIAZem HCL CD 120 MG CAP.ER.DEG PO (08:00)
[2025-01-24] MEDS: Metoprolol Succinate ER 100 MG TAB.ER.24H PO (08:01)
[2025-01-24] MEDS: Aspirin Enteric Coated 81 MG TABLET.DR PO (08:01)
[2025-01-24 08:29] LABS: Glucose, Whole Blood 69 mg/dL (60-115)
[2025-01-24 09:16] LABS: Venous Blood Gas Refer to POC result
[2025-01-24 09:17] LABS: VBG HCO3 40 mmol/L (22-26); VBG O2 % Saturation 86.0 %
--- NOTE | 2025-01-24 10:53 | HO.PM.IMPN ---
Subjective Subjective Date of Service: 01/24/25 Interval History: Severe low back pain Physical Exam Exam: Exam: Alert oriented x3, in acute distress, complaining of pain, bed-bound, 2/5 strength lower extremities bilateral Vital Signs: Vital Signs: Last Vital Signs Temp 97.2 F 01/24/25 09:00 Pulse 77 01/24/25 07:51 Resp 18 01/24/25 07:51 BP 123/64 01/24/25 07:51 Pulse Ox 94 01/24/25 07:51 O2 Del Method Oxymask 01/24/25 07:51 O2 Flow Rate 4 01/24/25 07:51 Oxygen Flow Rate 2 01/22/25 07:46 BMI result Body Mass Index 39.4 Objective Data Active Medications Acetaminophen (Acetaminophen 325 Mg Tablet) 650 mg PO Q6H PRN PRN Reason: Pain, Mild 1-3,fever,headache Last Admin: 01/23/25 09:59 Dose: 650 mg Documented By: PIPER Albuterol/Ipratropium (Albuterol/Iprat 2.5/0.5mg 3 Ml Ampul.Neb) 3 ml INHALE RQ4H WHILE AWAKE PRN PRN Reason: Shortness of Breath Last Admin: 01/23/25 20:35 Dose: 3 ml Documented By: THERESA Apixaban (Apixaban 5 Mg Tablet) 5 mg PO BID [facility] Last Admin: 01/24/25 08:01 Dose: 5 mg Documented By: PIPER Ascorbic Acid (Ascorbic Acid 500 Mg Tablet) 500 mg PO BID [facility] Last Admin: 01/24/25 08:01 Dose: 500 mg Documented By: PIPER Aspirin (Aspirin Enteric Coated 81 Mg Tablet.) 81 mg PO DAILY [facility] Last Admin: 01/24/25 08:01 Dose: 81 mg Documented By: PIPER Atorvastatin Calcium (Atorvastatin Calcium 80 Mg Tablet) 80 mg PO BEDTIME [facility] Last Admin: 01/23/25 20:23 Dose: 80 mg Documented By: ANAYA Benzonatate (Benzonatate 100 Mg Capsule) 100 mg PO TID PRN PRN Reason: Cough Calcium Carbonate (Calcium Carbonate 750 Mg Tab.Chew) 750 mg PO Q4H PRN PRN Reason: Heartburn Dextrose (Dextrose 50 % 25 Gm/50 Ml Syringe) 25 gm IVPUSH Q15M PRN; Protocol PRN Reason: per Hypoglycemia Standing Ord. Last Admin: 01/22/25 12:42 Dose: 25 gm Documented By: JOSSELYN Diltiazem HCl (Diltiazem Hcl Cd 120 Mg Cap.Er.Deg) 120 mg PO DAILY [facility]; Protocol Last Admin: 01/24/25 08:00 Dose: 120 mg Documented By: PIPER Duloxetine HCl (Duloxetine Hcl 30 Mg Capsule.Dr) 30 mg PO DAILY [facility] Last Admin: 01/24/25 08:01 Dose: 30 mg Documented By: PIPER Ezetimibe (Ezetimibe 10 Mg Tablet) 10 mg PO DAILY [facility] Last Admin: 01/24/25 08:01 Dose: 10 mg Documented By: PIPER Fluticasone/Vilanterol (Fluticasone/Vilanterol 200/25 Blst.W.Dev) 1 puff INHALE RDAILY [facility] Last Admin: 01/24/25 07:28 Dose: 1 puff Documented By: FOLRENTINO Furosemide (Furosemide 40 Mg/4 Ml Vial) 40 mg IVPUSH DAILY [facility]; Protocol Last Admin: 01/24/25 08:00 Dose: 40 mg Documented By: PIPER Gabapentin (Gabapentin 100 Mg Capsule) 100 mg PO BEDTIME [facility] Last Admin: 01/23/25 20:23 Dose: 100 mg Documented By: ANAYA Glucose (Glucose Gel 15 Gm Gel..Gram.) 15 gm PO Q15M PRN; Protocol PRN Reason: per Hypoglycemia Standing Ord. Insulin Human Lispro (Insulin Lispro 100 Unit/Ml 3 Ml Vial) 0 unit SUBCUT QIDACHS [facility]; Protocol Last Admin: 01/24/25 08:39 Dose: Not Given Documented By: PIPER Non-Admin Reason: No Insulin Coverage Levothyroxine Sodium (Levothyroxine Sodium 100 Mcg Tablet) 100 mcg PO DAILY@0600 [facility] Last Admin: 01/24/25 05:18 Dose: 100 mcg Documented By: ANAYA Magnesium Hydroxide (Milk Of Magnesia 30 Ml Oral.Susp) 30 ml PO DAILY PRN PRN Reason: Constipation Melatonin (Melatonin 3 Mg Tablet) 6 mg PO BEDTIME PRN PRN Reason: Insomnia Metoprolol Succinate (Metoprolol Succinate Er 100 Mg Tab.Er.24h) 100 mg PO DAILY [facility]; Protocol Last Admin: 01/24/25 08:01 Dose: 100 mg Documented By: PIPER Ondansetron HCl (Ondansetron Hcl 4 Mg/2 Ml Vial) 4 mg IVPUSH Q6H PRN PRN Reason: Nausea Last Admin: 01/24/25 09:42 Dose: 4 mg Documented By: PIPER Pantoprazole Sodium (Pantoprazole Sodium 40 Mg/10 Ml Vial) 40 mg IVPUSH DAILY@0630 [facility] Last Admin: 01/24/25 05:18 Dose: 40 mg Documented By: ANAYA Sodium Chloride (0.9 % Sodium Chloride Flush 3 Ml Syringe) 3 ml IVFLUSH QSHIFT [facility] Last Admin: 01/24/25 08:41 Dose: Not Given Documented By: PIPER Non-Admin Reason: Patient Refused Thiamine HCl (Thiamine Hcl 100 Mg Tablet) 100 mg PO DAILY [facility] Last Admin: 01/24/25 08:01 Dose: 100 mg Documented By: PIPER Tramadol HCl (Tramadol Hcl 50 Mg Tablet) 50 mg PO Q6H PRN PRN Reason: Pain, Moderate(Pain Scale 4-6) Last Admin: 01/24/25 08:01 Dose: 50 mg Documented By: PIPER Vitamin D (Cholecalciferol (Vitamin D3) 25 Mcg Tablet) 25 mcg PO DAILY [facility] Last Admin: 01/24/25 08:01 Dose: 25 mcg Documented By: PIPER Labs 01/24/25 06:25 01/24/25 06:25 Labs: Laboratory Results - last 24 hr 01/23/25 01/23/25 01/23/25 11:35 16:44 19:32 MCV MCH MCHC RDW Plt Count MPV Absolute Nucleated RBC Nucleated RBC % (auto) ESR VBG pH VBG pCO2 VBG pO2 VBG HCO3 VBG O2 Saturation VBG Base Excess Anion Gap Estim Creat Clear Calc Estimated GFR POC Glucose 103 92 104 Random Glucose Calcium Magnesium 01/24/25 01/24/25 01/24/25 06:25 08:24 09:09 MCV 90.6 MCH 28.0 MCHC 30.9 L RDW 14.8 Plt Count 246 MPV 9.8 Absolute Nucleated RBC 0.000 Nucleated RBC % (auto) 0.0 ESR 32 H VBG pH 7.45 H VBG pCO2 57 VBG pO2 60 VBG HCO3 40 H VBG O2 Saturation 86.0 VBG Base Excess 13.9 Anion Gap 13 Estim Creat Clear Calc 35.1 Estimated GFR 41 POC Glucose 69 Random Glucose 87 Calcium 9.2 Magnesium 1.8 Microbiology Microbiology Results: Microbiology 01/21/25 16:29 Blood Culture - Preliminary Blood - Venous No growth after 48 hours. 01/21/25 16:20 Blood Culture - Preliminary Blood - Venous No growth after 48 hours. Assessment and Plan (1) Paroxysmal atrial fibrillation: Status: Acute (2) Congestive heart failure: Status: Acute Plan 84F PMH chornic systolic chf, CAD, htn, hld, DM, chronic pain syndrome, history of C diff, COPD, abdominal aortic aneurysm, hypothyroid, fibromyalgia, restrictive lung disease, morbid obesity presented with abdominal pain Acute on chronic systolic CHF IV Lasix, cardio appreciated Diffuse pain most concentrated in abdomen in a patient with chronic pain Possible contribution of constipation, continue bowel regiment now with back pain check ct lumbar spine Morbid obesity Weight loss recommended CAD Continue apixaban COPD Stable Diabetes Insulin sliding scale DVT prophylaxis with apixaban Full code reason for continued hospitalization: IV diuresis, pain Quality Stroke Does the patient have a stroke diagnosis?: No VTE Prior VTE?: No VTE Risk Level:: Medical - moderate - high VTE Device Contraindication: Treatment Not Indicated VTE Drug Contraindication: N/A - Med Ordered
[2025-01-24 12:31] LABS: Glucose, Whole Blood 106 mg/dL (60-115)
[2025-01-24 16:29] LABS: Glucose, Whole Blood 96 mg/dL (60-115)
[2025-01-24] MEDS: 0.9 % Sodium Chloride Flush 3 ML SYRINGE IVFLUSH (20:05)
[2025-01-24 20:37] LABS: Glucose, Whole Blood 113 mg/dL (60-115)
[2025-01-25] VITALS (8 sets, daily range): BP systolic 100–130; BP diastolic 52–65; PULSE 65–82; RESP 16–20; TEMP 36–36.6; O2SAT 93–97
[2025-01-25 07:10] LABS: Glucose, Whole Blood 70 mg/dL (60-115)
[2025-01-25] MEDS: Aspirin Enteric Coated 81 MG TABLET.DR PO (08:13)
[2025-01-25] MEDS: Metoprolol Succinate ER 100 MG TAB.ER.24H PO (08:13)
[2025-01-25] MEDS: dilTIAZem HCL CD 120 MG CAP.ER.DEG PO (08:13)
[2025-01-25] MEDS: Furosemide 40 MG/4 ML VIAL IVPUSH (08:14)
[2025-01-25] MEDS: 0.9 % Sodium Chloride Flush 3 ML SYRINGE IVFLUSH ×2 (08:14→21:30)
[2025-01-25] MEDS: Fluticasone/Vilanterol 200/25 BLST.W.DEV 1 PUFF INHALE (08:20)
[2025-01-25 08:27] LABS: Glucose, Whole Blood 80 mg/dL (60-115)
[2025-01-25 09:33] LABS: Hematocrit 38.2 % (37.0-47.0); Hemoglobin 11.9 g/dl (12.0-16.0); Mean Corpuscular HGB Conc 31.2 g/dl (31.0-35.0); Mean Corpuscular Hemoglobin 27.7 pg (27.0-33.0); Mean Corpuscular Volume 89.0 fL (80.0-98.0); NRBC Abs Auto 0.000 X10*3/uL (0.0-0.012); NRBC Pct Auto 0.0 /100WBC (0.0-0.2); Platelet Count 191 X10*3/uL (160-400); Red Blood Count 4.29 X10*6/uL (4.20-5.50); White Blood Count 10.7 X10*3/uL (4.8-10.8)
[2025-01-25 09:56] LABS: Anion Gap 16 (12-20); Blood Urea Nitrogen 40 mg/dL (9-16); Calcium 9.3 mg/dL (8.4-10.2); Carbon Dioxide 34 mmol/L (22-29); Chloride 94 mmol/L (96-108); Creatinine Clr Calc Pharmacy 30.5; Estimated Glomerular Filt Rate 35; Magnesium 1.9 mg/dL (1.6-2.6); Potassium 4.7 mmol/L (3.3-5.1); Sodium 139 mmol/L (135-145)
[2025-01-25 11:16] LABS: Glucose, Whole Blood 115 mg/dL (60-115)
--- NOTE | 2025-01-25 15:41 | MHC.CM.PN ---
Pt. is not ready to DC, she requires continues acute care for diereses and pain management.
--- NOTE | 2025-01-25 16:29 | P.PNIM_ITS ---
Subjective Subjective Date of Service: 01/25/25 Interval History: dyspnea improving chronic pain Review of Systems Review of Systems: Yes all other systems are reviewed and are negative Physical Exam 2 Vital Signs: Vital Signs: Last Vital Signs Temp 97.8 F 01/25/25 11:07 Pulse 80 01/25/25 11:07 Resp 16 01/25/25 11:07 BP 104/65 01/25/25 11:07 Pulse Ox 93 01/25/25 11:07 O2 Del Method Nasal Cannula 01/25/25 11:07 O2 Flow Rate 4 01/25/25 11:07 Oxygen Flow Rate 2 01/22/25 07:46 BMI result Body Mass Index 39.4 Gen: in no acute distress, chronically weak HEENT: sclera anicteric, moist mucus membranes Neck: supple Lungs: diminished Heart: regular rate and rhythm, no murmurs Abd: soft, non-tender, non-distended Ext: no edema Skin: warm/well-perfused Neuro: alert and oriented x3, bilateral leg weakness 2/5 Psych: appropriate affect Objective Data Active Medications Acetaminophen (Acetaminophen 325 Mg Tablet) 650 mg PO Q6H PRN PRN Reason: Pain, Mild 1-3,fever,headache Last Admin: 01/23/25 09:59 Dose: 650 mg Documented By: PIPER Albuterol/Ipratropium (Albuterol/Iprat 2.5/0.5mg 3 Ml Ampul.Neb) 3 ml INHALE RQ4H WHILE AWAKE PRN PRN Reason: Shortness of Breath Last Admin: 01/23/25 20:35 Dose: 3 ml Documented By: THERESA Apixaban (Apixaban 5 Mg Tablet) 5 mg PO BID [facility] Last Admin: 01/25/25 08:14 Dose: 5 mg Documented By: BRIDGETT Ascorbic Acid (Ascorbic Acid 500 Mg Tablet) 500 mg PO BID [facility] Last Admin: 01/25/25 08:13 Dose: 500 mg Documented By: BRIDGETT Aspirin (Aspirin Enteric Coated 81 Mg Tablet.) 81 mg PO DAILY [facility] Last Admin: 01/25/25 08:13 Dose: 81 mg Documented By: BRIDGETT Atorvastatin Calcium (Atorvastatin Calcium 80 Mg Tablet) 80 mg PO BEDTIME [facility] Last Admin: 01/24/25 20:04 Dose: 80 mg Documented By: HO.POTTSSU Benzonatate (Benzonatate 100 Mg Capsule) 100 mg PO TID PRN PRN Reason: Cough Calcium Carbonate (Calcium Carbonate 750 Mg Tab.Chew) 750 mg PO Q4H PRN PRN Reason: Heartburn Dextrose (Dextrose 50 % 25 Gm/50 Ml Syringe) 25 gm IVPUSH Q15M PRN; Protocol PRN Reason: per Hypoglycemia Standing Ord. Last Admin: 01/22/25 12:42 Dose: 25 gm Documented By: JOSSELYN Diltiazem HCl (Diltiazem Hcl Cd 120 Mg Cap.Er.Deg) 120 mg PO DAILY [facility]; Protocol Last Admin: 01/25/25 08:13 Dose: 120 mg Documented By: BRIDGETT Duloxetine HCl (Duloxetine Hcl 30 Mg Capsule.Dr) 30 mg PO DAILY [facility] Last Admin: 01/25/25 08:13 Dose: 30 mg Documented By: BRIDGETT Ezetimibe (Ezetimibe 10 Mg Tablet) 10 mg PO DAILY [facility] Last Admin: 01/25/25 08:14 Dose: 10 mg Documented By: BRIDGETT Fluticasone/Vilanterol (Fluticasone/Vilanterol 200/25 Blst.W.Dev) 1 puff INHALE RDAILY [facility] Last Admin: 01/25/25 08:20 Dose: 1 puff Documented By: CARMENZA Furosemide (Furosemide 40 Mg/4 Ml Vial) 40 mg IVPUSH DAILY [facility]; Protocol On Hold: 01/25/25 11:10 Last Admin: 01/25/25 08:14 Dose: 40 mg Documented By: BRIDGETT Gabapentin (Gabapentin 100 Mg Capsule) 100 mg PO BEDTIME [facility] Last Admin: 01/24/25 20:04 Dose: 100 mg Documented By: ANAYA Glucose (Glucose Gel 15 Gm Gel..Gram.) 15 gm PO Q15M PRN; Protocol PRN Reason: per Hypoglycemia Standing Ord. Insulin Human Lispro (Insulin Lispro 100 Unit/Ml 3 Ml Vial) 0 unit SUBCUT QIDACHS [facility]; Protocol Last Admin: 01/25/25 11:23 Dose: Not Given Documented By: BRIDGETT Non-Admin Reason: No Insulin Coverage Levothyroxine Sodium (Levothyroxine Sodium 100 Mcg Tablet) 100 mcg PO DAILY@0600 [facility] Last Admin: 01/25/25 05:48 Dose: 100 mcg Documented By: ANAYA Magnesium Hydroxide (Milk Of Magnesia 30 Ml Oral.Susp) 30 ml PO DAILY PRN PRN Reason: Constipation Melatonin (Melatonin 3 Mg Tablet) 6 mg PO BEDTIME PRN PRN Reason: Insomnia Metoprolol Succinate (Metoprolol Succinate Er 100 Mg Tab.Er.24h) 100 mg PO DAILY [facility]; Protocol Last Admin: 01/25/25 08:13 Dose: 100 mg Documented By: BRIDGETT Ondansetron HCl (Ondansetron Hcl 4 Mg/2 Ml Vial) 4 mg IVPUSH Q6H PRN PRN Reason: Nausea Last Admin: 01/24/25 09:42 Dose: 4 mg Documented By: PIPER Sodium Chloride (0.9 % Sodium Chloride Flush 3 Ml Syringe) 3 ml IVFLUSH QSHIFT [facility] Last Admin: 01/25/25 11:30 Dose: Not Given Documented By: JOSUÉ Non-Admin Reason: Previously Administered Thiamine HCl (Thiamine Hcl 100 Mg Tablet) 100 mg PO DAILY [facility] Last Admin: 01/25/25 08:14 Dose: 100 mg Documented By: BRIDGETT Tramadol HCl (Tramadol Hcl 50 Mg Tablet) 50 mg PO Q6H PRN PRN Reason: Pain, Moderate(Pain Scale 4-6) Last Admin: 01/25/25 13:51 Dose: 50 mg Documented By: JOSUÉ Vitamin D (Cholecalciferol (Vitamin D3) 25 Mcg Tablet) 25 mcg PO DAILY [facility] Last Admin: 01/25/25 08:14 Dose: 25 mcg Documented By: BRIDGETT Labs 01/25/25 09:16 01/25/25 09:16 Labs: Laboratory Results - last 24 hr 01/24/25 01/24/25 01/25/25 16:25 20:34 07:05 MCV MCH MCHC RDW Plt Count MPV Absolute Nucleated RBC Nucleated RBC % (auto) Anion Gap Estim Creat Clear Calc Estimated GFR POC Glucose 96 113 70 Random Glucose Calcium Magnesium NT-Pro-B Natriuret Pep 01/25/25 01/25/25 01/25/25 08:20 09:16 11:09 MCV 89.0 MCH 27.7 MCHC 31.2 RDW 15.2 Plt Count 191 MPV 10.5 Absolute Nucleated RBC 0.000 Nucleated RBC % (auto) 0.0 Anion Gap 16 Estim Creat Clear Calc 30.5 Estimated GFR 35 POC Glucose 80 115 Random Glucose 103 Calcium 9.3 Magnesium 1.9 NT-Pro-B Natriuret Pep 3527.7 H Assessment and Plan (1) Paroxysmal atrial fibrillation: Status: Acute (2) Congestive heart failure: Status: Acute Plan d5, 84yo M with chronic systolic HF, CAD, HTN, HLD, DM2, chronic pain, hx C. difficile, COPD, AAA, hypothyroidism, FM, restrictive lung disease, morbid obesity presenting with abd pain, admitted for suspected CHF exacerbation SHANEL - suspect due to overdiuresis; hold furosemide acute/chronic HFrEF - holding furosemide as above - Cardiology consulted - TTE 01/22/25: '- The left ventricular systolic function is mild to moderately decreased. The calculated ejection fraction is 40% by biplane method. - No obvious valvular pathology seen on this study' constipation - bowel regimen chronic back pain - CT L-spine 01/24: '1. No acute lumbar spine fracture or traumatic subluxation. 2. Moderately extensive multilevel lumbar spine arthropathy as detailed above. If patient continues to have persistent worsening symptoms, consider MRI for further evaluation.' chronic pain/FM: duloxetine, gabapentin COPD: Breo, Duonebs pAF: apixaban, dilitiazem, metoprolol succinate DM2: correction-dose lispro hypothyroidism: LT4 morbid obesity: diet/exercise counseling VTE ppx: apixaban dispo: has 10/09 care at home from home health aides In my clinical judgment, the patient requires continued inpatient hospitalization for the following reasons: SHANEL Total time managing care of this patient today: 45 minutes. Quality Stroke Does the patient have a stroke diagnosis?: No VTE Prior VTE?: No VTE Risk Level:: Medical - moderate - high VTE Device Contraindication: Treatment Not Indicated VTE Drug Contraindication: N/A - Med Ordered
[2025-01-25 17:04] LABS: Glucose, Whole Blood 108 mg/dL (60-115)
[2025-01-25 20:41] LABS: Glucose, Whole Blood 143 mg/dL (60-115)
[2025-01-25] MEDS: Albuterol/Iprat 2.5/0.5MG 3 ML AMPUL.NEB INHALE (20:49)
[2025-01-26] VITALS (7 sets, daily range): BP systolic 106–138; BP diastolic 53–66; PULSE 62–93; RESP 16–20; TEMP 35.7–36.8; O2SAT 90–96
[2025-01-26 08:23] LABS: Anion Gap 16 (12-20); Blood Urea Nitrogen 49 mg/dL (9-16); Calcium 9.3 mg/dL (8.4-10.2); Carbon Dioxide 34 mmol/L (22-29); Chloride 95 mmol/L (96-108); Creatinine Clr Calc Pharmacy 33.0; Estimated Glomerular Filt Rate 38; Magnesium 2.1 mg/dL (1.6-2.6); Potassium 4.6 mmol/L (3.3-5.1); Sodium 140 mmol/L (135-145)
[2025-01-26] MEDS: Fluticasone/Vilanterol 200/25 BLST.W.DEV 1 PUFF INHALE (08:43)
[2025-01-26 09:11] LABS: Glucose, Whole Blood 75 mg/dL (60-115)
[2025-01-26] MEDS: Aspirin Enteric Coated 81 MG TABLET.DR PO (11:14)
[2025-01-26 11:24] LABS: Glucose, Whole Blood 233 mg/dL (60-115)
[2025-01-26] MEDS: Metoprolol Succinate ER 100 MG TAB.ER.24H PO (11:25)
[2025-01-26] MEDS: 0.9 % Sodium Chloride Flush 3 ML SYRINGE IVFLUSH ×3 (11:25→22:27)
[2025-01-26] MEDS: dilTIAZem HCL CD 120 MG CAP.ER.DEG PO (11:25)
[2025-01-26] MEDS: Lidocaine 4 % Patch ADH..PATCH 1 PATCH TRANSDERMA (11:28)
--- NOTE | 2025-01-26 12:56 | P.PNIM_ITS ---
Subjective Subjective Date of Service: 01/26/25 Interval History: dyspnea about the same c/o chronic back/leg pain Review of Systems Review of Systems: Yes all other systems are reviewed and are negative Physical Exam 2 Vital Signs: Vital Signs: Last Vital Signs Temp 97.2 F 01/26/25 11:21 Pulse 80 01/26/25 11:21 Resp 20 01/26/25 11:21 BP 116/53 L 01/26/25 11:21 Pulse Ox 96 01/26/25 11:21 O2 Del Method Oxymask 01/26/25 11:21 O2 Flow Rate 4 01/26/25 11:21 Oxygen Flow Rate 2 01/22/25 07:46 BMI result Body Mass Index 39.4 Gen: in no acute distress, chronically weak HEENT: sclera anicteric, moist mucus membranes Neck: supple Lungs: diminished Heart: regular rate and rhythm, no murmurs Abd: soft, non-tender, non-distended Ext: no edema Skin: warm/well-perfused Neuro: alert and oriented x3, bilateral leg weakness 2/5 Psych: appropriate affect Objective Data Active Medications Acetaminophen (Acetaminophen 325 Mg Tablet) 650 mg PO Q6H PRN PRN Reason: Pain, Mild 1-3,fever,headache Last Admin: 01/23/25 09:59 Dose: 650 mg Documented By: PIPER Albuterol/Ipratropium (Albuterol/Iprat 2.5/0.5mg 3 Ml Ampul.Neb) 3 ml INHALE RQ4H WHILE AWAKE PRN PRN Reason: Shortness of Breath Last Admin: 01/25/25 20:49 Dose: 3 ml Documented By: LUIGI Apixaban (Apixaban 5 Mg Tablet) 5 mg PO BID [facility] Last Admin: 01/26/25 11:15 Dose: 5 mg Documented By: CHRISTINE Ascorbic Acid (Ascorbic Acid 500 Mg Tablet) 500 mg PO BID [facility] Last Admin: 01/26/25 11:15 Dose: 500 mg Documented By: CHRISTINE Aspirin (Aspirin Enteric Coated 81 Mg Tablet.) 81 mg PO DAILY [facility] Last Admin: 01/26/25 11:14 Dose: 81 mg Documented By: CHRISTINE Atorvastatin Calcium (Atorvastatin Calcium 80 Mg Tablet) 80 mg PO BEDTIME [facility] Last Admin: 01/25/25 21:28 Dose: 80 mg Documented By: JUWAN Benzonatate (Benzonatate 100 Mg Capsule) 100 mg PO TID PRN PRN Reason: Cough Calcium Carbonate (Calcium Carbonate 750 Mg Tab.Chew) 750 mg PO Q4H PRN PRN Reason: Heartburn Dextrose (Dextrose 50 % 25 Gm/50 Ml Syringe) 25 gm IVPUSH Q15M PRN; Protocol PRN Reason: per Hypoglycemia Standing Ord. Last Admin: 01/22/25 12:42 Dose: 25 gm Documented By: JOSSELYN Diltiazem HCl (Diltiazem Hcl Cd 120 Mg Cap.Er.Deg) 120 mg PO DAILY [facility]; Protocol Last Admin: 01/26/25 11:25 Dose: 120 mg Documented By: CHRISTINE Duloxetine HCl (Duloxetine Hcl 30 Mg Capsule.Dr) 30 mg PO DAILY [facility] Last Admin: 01/26/25 11:14 Dose: 30 mg Documented By: CHRISTINE Ezetimibe (Ezetimibe 10 Mg Tablet) 10 mg PO DAILY [facility] Last Admin: 01/26/25 11:14 Dose: 10 mg Documented By: CHRISTINE Fluticasone/Vilanterol (Fluticasone/Vilanterol 200/25 Blst.W.Dev) 1 puff INHALE RDAILY [facility] Last Admin: 01/26/25 08:43 Dose: 1 puff Documented By: CARMENZA Furosemide (Furosemide 40 Mg/4 Ml Vial) 40 mg IVPUSH DAILY [facility]; Protocol On Hold: 01/25/25 11:10 Last Admin: 01/25/25 08:14 Dose: 40 mg Documented By: BRIDGETT Gabapentin (Gabapentin 100 Mg Capsule) 100 mg PO BEDTIME [facility] Last Admin: 01/25/25 21:28 Dose: 100 mg Documented By: JUWAN Glucose (Glucose Gel 15 Gm Gel..Gram.) 15 gm PO Q15M PRN; Protocol PRN Reason: per Hypoglycemia Standing Ord. Insulin Human Lispro (Insulin Lispro 100 Unit/Ml 3 Ml Vial) 0 unit SUBCUT QIDACHS [facility]; Protocol Last Admin: 01/26/25 11:25 Dose: 4 unit Documented By: CHRISTINE Levothyroxine Sodium (Levothyroxine Sodium 100 Mcg Tablet) 100 mcg PO DAILY@0600 [facility] Last Admin: 01/26/25 05:38 Dose: 100 mcg Documented By: JUWAN Lidocaine (Lidocaine 4 % Patch Adh..Patch) 1 patch TRANSDERMA DAILY [facility]; Protocol Last Admin: 01/26/25 11:28 Dose: 1 patch Documented By: CHRISTINE Magnesium Hydroxide (Milk Of Magnesia 30 Ml Oral.Susp) 30 ml PO DAILY PRN PRN Reason: Constipation Melatonin (Melatonin 3 Mg Tablet) 6 mg PO BEDTIME PRN PRN Reason: Insomnia Metoprolol Succinate (Metoprolol Succinate Er 100 Mg Tab.Er.24h) 100 mg PO DAILY [facility]; Protocol Last Admin: 01/26/25 11:25 Dose: 100 mg Documented By: CHRISTINE Ondansetron HCl (Ondansetron Hcl 4 Mg/2 Ml Vial) 4 mg IVPUSH Q6H PRN PRN Reason: Nausea Last Admin: 01/24/25 09:42 Dose: 4 mg Documented By: PIPER Sodium Chloride (0.9 % Sodium Chloride Flush 3 Ml Syringe) [facility] Last Admin: 01/26/25 11:25 Dose: 3 ml Documented By: CHRISTINE Thiamine HCl (Thiamine Hcl 100 Mg Tablet) 100 mg PO DAILY [facility] Last Admin: 01/26/25 11:15 Dose: 100 mg Documented By: CHRISTINE Tramadol HCl (Tramadol Hcl 50 Mg Tablet) 50 mg PO Q6H PRN PRN Reason: Pain, Moderate(Pain Scale 4-6) Last Admin: 01/26/25 11:14 Dose: 50 mg Documented By: CHRISTINE Vitamin D (Cholecalciferol (Vitamin D3) 25 Mcg Tablet) 25 mcg PO DAILY [facility] Last Admin: 01/26/25 11:15 Dose: 25 mcg Documented By: CHRISTINE Labs 01/25/25 09:16 01/26/25 07:16 Labs: Laboratory Results - last 24 hr 01/25/25 01/25/25 01/26/25 16:48 20:28 07:16 Anion Gap 16 Estim Creat Clear Calc 33.0 Estimated GFR 38 POC Glucose 108 143 H Random Glucose 86 Calcium 9.3 Magnesium 2.1 NT-Pro-B Natriuret Pep 3467.2 H 01/26/25 01/26/25 07:48 11:19 Anion Gap Estim Creat Clear Calc Estimated GFR POC Glucose 75 233 H Random Glucose Calcium Magnesium NT-Pro-B Natriuret Pep Assessment and Plan (1) Paroxysmal atrial fibrillation: Status: Acute (2) Congestive heart failure: Status: Acute Plan d6, 84yo M with chronic systolic HF, CAD, HTN, HLD, DM2, chronic pain, hx C. difficile, COPD, AAA, hypothyroidism, FM, restrictive lung disease, morbid obesity presenting with abd pain, admitted for suspected CHF exacerbation SHANEL - suspect due to overdiuresis; held furosemide and SCr improving acute/chronic HFrEF - holding furosemide as above - Cardiology consulted - TTE 01/22/25: '- The left ventricular systolic function is mild to moderately decreased. The calculated ejection fraction is 40% by biplane method. - No obvious valvular pathology seen on this study' constipation - bowel regimen chronic back pain - CT L-spine 01/24: '1. No acute lumbar spine fracture or traumatic subluxation. 2. Moderately extensive multilevel lumbar spine arthropathy as detailed above. If patient continues to have persistent worsening symptoms, consider MRI for further evaluation.' - add lidocaine patch chronic pain/FM: duloxetine, gabapentin COPD: Breo, Duonebs pAF: apixaban, dilitiazem, metoprolol succinate DM2: correction-dose lispro hypothyroidism: LT4 morbid obesity: diet/exercise counseling VTE ppx: apixaban dispo: has 10/09 care at home from home health aides In my clinical judgment, the patient requires continued inpatient hospitalization for the following reasons: SHANEL Total time managing care of this patient today: 35 minutes. Quality Stroke Does the patient have a stroke diagnosis?: No VTE Prior VTE?: No VTE Risk Level:: Medical - moderate - high VTE Device Contraindication: Treatment Not Indicated VTE Drug Contraindication: N/A - Med Ordered
[2025-01-26 16:21] LABS: Glucose, Whole Blood 54 mg/dL (60-115)
[2025-01-26 16:45] LABS: Glucose, Whole Blood 230 mg/dL (60-115)
[2025-01-26 20:57] LABS: Glucose, Whole Blood 106 mg/dL (60-115)
[2025-01-27 03:53] VITALS: BP 122/58; PULSE 70; RESP 16; TEMP 36.3; O2SAT 90
[2025-01-27 07:02] LABS: Glucose, Whole Blood 86 mg/dL (60-115)
[2025-01-27 07:35] VITALS: BP 114/63; PULSE 69; RESP 20; TEMP 36.3; O2SAT 94
[2025-01-27] MEDS: Fluticasone/Vilanterol 200/25 BLST.W.DEV 1 PUFF INHALE (07:43)
[2025-01-27 07:45] VITALS: PULSE 69; RESP 20; O2SAT 95
[2025-01-27 08:41] LABS: Anion Gap 15 (12-20); Blood Urea Nitrogen 49 mg/dL (9-16); Calcium 9.1 mg/dL (8.4-10.2); Carbon Dioxide 32 mmol/L (22-29); Chloride 98 mmol/L (96-108); Creatinine Clr Calc Pharmacy 37.2; Estimated Glomerular Filt Rate 44; Potassium 4.9 mmol/L (3.3-5.1); Sodium 140 mmol/L (135-145)
[2025-01-27 08:49] LABS: NT Pro B Type Natriuretic Pept 3067.7 pg/mL (<300)
[2025-01-27] MEDS: Lidocaine 4 % Patch ADH..PATCH 1 PATCH TRANSDERMA (09:11)
[2025-01-27] MEDS: Metoprolol Succinate ER 100 MG TAB.ER.24H PO (09:11)
[2025-01-27] MEDS: dilTIAZem HCL CD 120 MG CAP.ER.DEG PO (09:12)
[2025-01-27] MEDS: Aspirin Enteric Coated 81 MG TABLET.DR PO (09:12)
[2025-01-27] MEDS: 0.9 % Sodium Chloride Flush 3 ML SYRINGE IVFLUSH ×2 (09:15→17:44)
--- NOTE | 2025-01-27 10:43 | MHC.CM.PN ---
Per ROUNDS, Patient is not yet medically cleared for dc (work up for abdominal pain).
[2025-01-27 10:51] LABS: Glucose, Whole Blood 151 mg/dL (60-115)
[2025-01-27 11:06] VITALS: BP 112/68; PULSE 78; RESP 18; TEMP 36.5; O2SAT 92
--- NOTE | 2025-01-27 11:24 | HO.PM.IMPN ---
Subjective Subjective Date of Service: 01/27/25 Interval History: breathing improved c/o abd pain, RUQ and bilateral lower quadrants with nausea no diarrhea Review of Systems Review of Systems: Yes all other systems are reviewed and are negative Physical Exam Vital Signs: Vital Signs: Last Vital Signs Temp 97.7 F 01/27/25 11:06 Pulse 78 01/27/25 11:06 Resp 18 01/27/25 11:06 BP 112/68 01/27/25 11:06 Pulse Ox 92 01/27/25 11:06 O2 Del Method Oxymask 01/27/25 11:06 O2 Flow Rate 2 01/27/25 11:06 Oxygen Flow Rate 2 01/22/25 07:46 BMI result Body Mass Index 39.4 Gen: in no acute distress, chronically weak HEENT: sclera anicteric, moist mucus membranes Neck: supple Lungs: diminished Heart: regular rate and rhythm, no murmurs Abd: soft, bilateral lower quadrant tenderness without rebound, RUQ tenderness without Lynn sign, non-distended Ext: no edema Skin: warm/well-perfused Neuro: alert and oriented x3, bilateral leg weakness 2/5 Psych: appropriate affect Objective Data Active Medications Acetaminophen (Acetaminophen 325 Mg Tablet) 650 mg PO Q6H PRN PRN Reason: Pain, Mild 1-3,fever,headache Last Admin: 01/23/25 09:59 Dose: 650 mg Documented By: PIPER Albuterol/Ipratropium (Albuterol/Iprat 2.5/0.5mg 3 Ml Ampul.Neb) 3 ml INHALE RQ4H WHILE AWAKE PRN PRN Reason: Shortness of Breath Last Admin: 01/25/25 20:49 Dose: 3 ml Documented By: LUIGI Apixaban (Apixaban 5 Mg Tablet) 5 mg PO BID [facility] Last Admin: 01/27/25 09:12 Dose: 5 mg Documented By: CHRISTINE Ascorbic Acid (Ascorbic Acid 500 Mg Tablet) 500 mg PO BID [facility] Last Admin: 01/27/25 09:11 Dose: 500 mg Documented By: CHRISTINE Aspirin (Aspirin Enteric Coated 81 Mg Tablet.) 81 mg PO DAILY [facility] Last Admin: 01/27/25 09:12 Dose: 81 mg Documented By: CHRISTINE Atorvastatin Calcium (Atorvastatin Calcium 80 Mg Tablet) 80 mg PO BEDTIME [facility] Last Admin: 01/26/25 20:14 Dose: 80 mg Documented By: JUWAN Benzonatate (Benzonatate 100 Mg Capsule) 100 mg PO TID PRN PRN Reason: Cough Calcium Carbonate (Calcium Carbonate 750 Mg Tab.Chew) 750 mg PO Q4H PRN PRN Reason: Heartburn Dextrose (Dextrose 50 % 25 Gm/50 Ml Syringe) 25 gm IVPUSH Q15M PRN; Protocol PRN Reason: per Hypoglycemia Standing Ord. Last Admin: 01/26/25 16:20 Dose: 25 gm Documented By: CHRISTINE Diltiazem HCl (Diltiazem Hcl Cd 120 Mg Cap.Er.Deg) 120 mg PO DAILY [facility]; Protocol Last Admin: 01/27/25 09:12 Dose: 120 mg Documented By: CHRISTINE Duloxetine HCl (Duloxetine Hcl 30 Mg Capsule.Dr) 30 mg PO DAILY [facility] Last Admin: 01/27/25 09:12 Dose: 30 mg Documented By: CHRISTINE Ezetimibe (Ezetimibe 10 Mg Tablet) 10 mg PO DAILY [facility] Last Admin: 01/27/25 09:11 Dose: 10 mg Documented By: CHRISTINE Fluticasone/Vilanterol (Fluticasone/Vilanterol 200/25 Blst.W.Dev) 1 puff INHALE RDAILY [facility] Last Admin: 01/27/25 07:43 Dose: 1 puff Documented By: EZEQUIEL Furosemide (Furosemide 40 Mg/4 Ml Vial) 40 mg IVPUSH DAILY [facility]; Protocol On Hold: 01/25/25 11:10 Last Admin: 01/25/25 08:14 Dose: 40 mg Documented By: BRIDGETT Gabapentin (Gabapentin 100 Mg Capsule) 100 mg PO BEDTIME [facility] Last Admin: 01/26/25 20:14 Dose: 100 mg Documented By: JUWAN Glucose (Glucose Gel 15 Gm Gel..Gram.) 15 gm PO Q15M PRN; Protocol PRN Reason: per Hypoglycemia Standing Ord. Insulin Human Lispro (Insulin Lispro 100 Unit/Ml 3 Ml Vial) 0 unit SUBCUT QIDACHS [facility]; Protocol Last Admin: 01/27/25 11:22 Dose: 2 unit Documented By: CHRISTINE Levothyroxine Sodium (Levothyroxine Sodium 100 Mcg Tablet) 100 mcg PO DAILY@0600 [facility] Last Admin: 01/27/25 04:26 Dose: 100 mcg Documented By: JUWAN Lidocaine (Lidocaine 4 % Patch Adh..Patch) 1 patch TRANSDERMA DAILY [facility]; Protocol Last Admin: 01/27/25 09:11 Dose: 1 patch Documented By: CHRISTINE Magnesium Hydroxide (Milk Of Magnesia 30 Ml Oral.Susp) 30 ml PO DAILY PRN PRN Reason: Constipation Melatonin (Melatonin 3 Mg Tablet) 6 mg PO BEDTIME PRN PRN Reason: Insomnia Metoprolol Succinate (Metoprolol Succinate Er 100 Mg Tab.Er.24h) 100 mg PO DAILY [facility]; Protocol Last Admin: 01/27/25 09:11 Dose: 100 mg Documented By: CHRISTINE Ondansetron HCl (Ondansetron Hcl 4 Mg/2 Ml Vial) 4 mg IVPUSH Q6H PRN PRN Reason: Nausea Last Admin: 01/27/25 09:15 Dose: 4 mg Documented By: CHRISTINE Sodium Chloride (0.9 % Sodium Chloride Flush 3 Ml Syringe) [facility] Last Admin: 01/27/25 09:15 Dose: 3 ml Documented By: CHRISTINE Thiamine HCl (Thiamine Hcl 100 Mg Tablet) 100 mg PO DAILY [facility] Last Admin: 01/27/25 09:11 Dose: 100 mg Documented By: CHRISTINE Tramadol HCl (Tramadol Hcl 50 Mg Tablet) 50 mg PO Q6H PRN PRN Reason: Pain, Moderate(Pain Scale 4-6) Last Admin: 01/26/25 17:43 Dose: 50 mg Documented By: CHRISTINE Vitamin D (Cholecalciferol (Vitamin D3) 25 Mcg Tablet) 25 mcg PO DAILY [facility] Last Admin: 01/27/25 09:11 Dose: 25 mcg Documented By: CHRISTINE Labs 01/25/25 09:16 01/27/25 07:19 Labs: Laboratory Results - last 24 hr 01/26/25 01/26/25 01/26/25 11:19 16:10 16:41 Anion Gap Estim Creat Clear Calc Estimated GFR POC Glucose 233 H 54 L* 230 H Random Glucose Calcium NT-Pro-B Natriuret Pep 01/26/25 01/27/25 01/27/25 20:54 06:57 07:19 Anion Gap 15 Estim Creat Clear Calc 37.2 Estimated GFR 44 POC Glucose 106 86 Random Glucose 76 Calcium 9.1 NT-Pro-B Natriuret Pep 3067.7 H 01/27/25 10:47 Anion Gap Estim Creat Clear Calc Estimated GFR POC Glucose 151 H Random Glucose Calcium NT-Pro-B Natriuret Pep Microbiology Microbiology Results: Microbiology 01/21/25 16:29 Blood Culture - Final Blood - Venous No growth after 5 days. 01/21/25 16:20 Blood Culture - Final Blood - Venous No growth after 5 days. Assessment and Plan (1) Paroxysmal atrial fibrillation: Status: Acute (2) Congestive heart failure: Status: Acute Plan d7, 84yo M with chronic systolic HF, CAD, HTN, HLD, DM2, chronic pain, hx C. difficile, COPD, AAA, hypothyroidism, FM, restrictive lung disease, morbid obesity presenting with abd pain, admitted for suspected CHF exacerbation abd pain - CT A/P SHANEL - suspect due to overdiuresis; continues to improve after holding diuresis acute/chronic HFrEF - holding furosemide as above - Cardiology consulted - TTE 01/22/25: '- The left ventricular systolic function is mild to moderately decreased. The calculated ejection fraction is 40% by biplane method. - No obvious valvular pathology seen on this study' constipation - bowel regimen chronic back pain - CT L-spine 01/24: '1. No acute lumbar spine fracture or traumatic subluxation. 2. Moderately extensive multilevel lumbar spine arthropathy as detailed above. If patient continues to have persistent worsening symptoms, consider MRI for further evaluation.' - add lidocaine patch chronic pain/FM: duloxetine, gabapentin COPD: Breo, Duonebs pAF: apixaban, dilitiazem, metoprolol succinate DM2: correction-dose lispro hypothyroidism: LT4 morbid obesity: diet/exercise counseling VTE ppx: apixaban dispo: has 10/09 care at home from home health aides In my clinical judgment, the patient requires continued inpatient hospitalization for the following reasons: abd pain Total time managing care of this patient today: 35 minutes. Quality Stroke Does the patient have a stroke diagnosis?: No VTE Prior VTE?: No VTE Risk Level:: Medical - moderate - high VTE Device Contraindication: Treatment Not Indicated VTE Drug Contraindication: N/A - Med Ordered
--- NOTE | 2025-01-27 14:07 | HO.WOUND ---
Wound Consult: Initial 84 yr old female admitted to [facility] [place] on 01/21/25 - See progress notes and H&P for detailed history. Wound consult placed for groin MASD. Patient agreeable to assessment and photo documentation. Mild MASD to groin/perineum/buttocks- skin is intact, mildly red and blanching. Patient with incontinence, purewick in place. recommend barrier cream Recommendations: 1. Turn and Reposition every 2 hours and as needed for patient comfort. Use pillows or wedges to support off loading positions. 2. Off Load all bony prominences with use of pillows and heel boots if needed. Apply Preventative foams where needed. 3. Monitor for incontinence and moisture control, use barrier creams when needed for prevention and treatment. 4. Provide adequate and supplemental nutrition. 5. Order or Continue low air loss mattress. 6. When applicable maintain blood glucose levels per Providers order. Groin/buttocks/perineum: Off Load Pressure with Q2 hr turns and use of pillows - Cleanse with PH balance spray or wipes, pat dry. ?Apply thin layer of barrier cream to affected area. Apply twice daily and Reapply thin layer PRN after each episode of incontinence. Re-consult wound care Nurse for wound deterioration or wound changes.
[2025-01-27 15:12] VITALS: BP 124/59; PULSE 64; RESP 20; TEMP 36.1; O2SAT 92
[2025-01-27] MEDS: iohexoL 350 MG/ML 100 ML INFUS..BTL 85 ML IV (15:38)
[2025-01-27 17:23] LABS: Glucose, Whole Blood 75 mg/dL (60-115)
[2025-01-27 19:30] VITALS: BP 113/64; PULSE 72; RESP 18; TEMP 36.4; O2SAT 93
[2025-01-27 20:01] LABS: Glucose, Whole Blood 82 mg/dL (60-115)
[2025-01-28] VITALS (8 sets, daily range): BP systolic 95–127; BP diastolic 55–68; PULSE 61–93; RESP 15–20; TEMP 36.1–36.7; O2SAT 92–95
[2025-01-28 07:37] LABS: Glucose, Whole Blood 70 mg/dL (60-115)
[2025-01-28] MEDS: Metoprolol Succinate ER 100 MG TAB.ER.24H PO (08:21)
[2025-01-28] MEDS: Aspirin Enteric Coated 81 MG TABLET.DR PO (08:21)
[2025-01-28] MEDS: dilTIAZem HCL CD 120 MG CAP.ER.DEG PO (08:21)
[2025-01-28] MEDS: Lidocaine 4 % Patch ADH..PATCH 1 PATCH TRANSDERMA (08:22)
[2025-01-28] MEDS: 0.9 % Sodium Chloride Flush 3 ML SYRINGE IVFLUSH (08:22)
[2025-01-28 08:48] LABS: Anion Gap 16 (12-20); Blood Urea Nitrogen 50 mg/dL (9-16); Calcium 9.1 mg/dL (8.4-10.2); Carbon Dioxide 31 mmol/L (22-29); Chloride 97 mmol/L (96-108); Creatinine Clr Calc Pharmacy 33.0; Estimated Glomerular Filt Rate 38; Potassium 4.6 mmol/L (3.3-5.1); Sodium 139 mmol/L (135-145)
[2025-01-28 08:50] LABS: Hematocrit 39.9 % (37.0-47.0); Hemoglobin 12.4 g/dl (12.0-16.0); Mean Corpuscular HGB Conc 31.1 g/dl (31.0-35.0); Mean Corpuscular Hemoglobin 28.0 pg (27.0-33.0); Mean Corpuscular Volume 90.1 fL (80.0-98.0); NRBC Abs Auto 0.000 X10*3/uL (0.0-0.012); NRBC Pct Auto 0.0 /100WBC (0.0-0.2); Platelet Count 268 X10*3/uL (160-400); Red Blood Count 4.43 X10*6/uL (4.20-5.50); White Blood Count 12.0 X10*3/uL (4.8-10.8)
[2025-01-28 09:12] LABS: Procalcitonin 0.04 ng/mL
[2025-01-28 11:25] LABS: Glucose, Whole Blood 105 mg/dL (60-115)
--- NOTE | 2025-01-28 12:34 | P.PNIM_ITS ---
Subjective Subjective Date of Service: 01/28/25 Interval History: still has lower abd pain occasional wheezing Review of Systems Review of Systems: Yes all other systems are reviewed and are negative Physical Exam 2 Vital Signs: Vital Signs: Last Vital Signs Temp 97.9 F 01/28/25 11:42 Pulse 65 01/28/25 11:42 Resp 18 01/28/25 11:42 BP 95/56 L 01/28/25 11:42 Pulse Ox 92 01/28/25 11:42 O2 Del Method Oxymask 01/28/25 11:42 O2 Flow Rate 4.0 01/28/25 11:42 Oxygen Flow Rate 2 01/22/25 07:46 BMI result Body Mass Index 39.4 Gen: in no acute distress, chronically weak HEENT: sclera anicteric, moist mucus membranes Neck: supple Lungs: diminished, soft exp wheezing Heart: regular rate and rhythm, no murmurs Abd: soft, bilateral lower quadrant tenderness without rebound, non-distended Ext: no edema Skin: warm/well-perfused Neuro: alert and oriented x3, bilateral leg weakness 2/5 Psych: appropriate affect Objective Data Active Medications Acetaminophen (Acetaminophen 325 Mg Tablet) 650 mg PO Q6H PRN PRN Reason: Pain, Mild 1-3,fever,headache Last Admin: 01/23/25 09:59 Dose: 650 mg Documented By: PIPER Albuterol/Ipratropium (Albuterol/Iprat 2.5/0.5mg 3 Ml Ampul.Neb) 3 ml INHALE RQ4H WHILE AWAKE PRN PRN Reason: Shortness of Breath Last Admin: 01/25/25 20:49 Dose: 3 ml Documented By: LUIGI Apixaban (Apixaban 5 Mg Tablet) 5 mg PO BID [facility] Last Admin: 01/28/25 08:21 Dose: 5 mg Documented By: CECILIA Ascorbic Acid (Ascorbic Acid 500 Mg Tablet) 500 mg PO BID [facility] Last Admin: 01/28/25 08:21 Dose: 500 mg Documented By: CECILIA Aspirin (Aspirin Enteric Coated 81 Mg Tablet.) 81 mg PO DAILY [facility] Last Admin: 01/28/25 08:21 Dose: 81 mg Documented By: CECILIA Atorvastatin Calcium (Atorvastatin Calcium 80 Mg Tablet) 80 mg PO BEDTIME [facility] Last Admin: 01/27/25 19:59 Dose: 80 mg Documented By: YANG Benzonatate (Benzonatate 100 Mg Capsule) 100 mg PO TID PRN PRN Reason: Cough Calcium Carbonate (Calcium Carbonate 750 Mg Tab.Chew) 750 mg PO Q4H PRN PRN Reason: Heartburn Dextrose (Dextrose 50 % 25 Gm/50 Ml Syringe) 25 gm IVPUSH Q15M PRN; Protocol PRN Reason: per Hypoglycemia Standing Ord. Last Admin: 01/26/25 16:20 Dose: 25 gm Documented By: CHRISTINE Diltiazem HCl (Diltiazem Hcl Cd 120 Mg Cap.Er.Deg) 120 mg PO DAILY [facility]; Protocol Last Admin: 01/28/25 08:21 Dose: 120 mg Documented By: CECILIA Doxycycline Monohydrate (Doxycycline Monohydrate 100 Mg Capsule) 100 mg PO Q12H [facility] Duloxetine HCl (Duloxetine Hcl 30 Mg Capsule.Dr) 30 mg PO DAILY [facility] Last Admin: 01/28/25 08:21 Dose: 30 mg Documented By: CECILIA Ezetimibe (Ezetimibe 10 Mg Tablet) 10 mg PO DAILY [facility] Last Admin: 01/28/25 08:21 Dose: 10 mg Documented By: CECILIA Fluticasone/Vilanterol (Fluticasone/Vilanterol 200/25 Blst.W.Dev) 1 puff INHALE RDAILY [facility] Last Admin: 01/28/25 11:15 Dose: Not Given Documented By: MUSHTAQ Non-Admin Reason: See Note Furosemide (Furosemide 40 Mg/4 Ml Vial) 40 mg IVPUSH DAILY [facility]; Protocol On Hold: 01/25/25 11:10 Last Admin: 01/25/25 08:14 Dose: 40 mg Documented By: BRIDGETT Gabapentin (Gabapentin 100 Mg Capsule) 100 mg PO BEDTIME [facility] Last Admin: 01/27/25 19:59 Dose: 100 mg Documented By: YANG Glucose (Glucose Gel 15 Gm Gel..Gram.) 15 gm PO Q15M PRN; Protocol PRN Reason: per Hypoglycemia Standing Ord. Ceftriaxone Sodium 1 gm/ (Sodium Chloride) 50 mls @ 100 mls/hr IV Q24H [facility] Insulin Human Lispro (Insulin Lispro 100 Unit/Ml 3 Ml Vial) 0 unit SUBCUT QIDACHS [facility]; Protocol Last Admin: 01/28/25 11:30 Dose: Not Given Documented By: CECILIA Non-Admin Reason: No Insulin Coverage Levothyroxine Sodium (Levothyroxine Sodium 100 Mcg Tablet) 100 mcg PO DAILY@0600 [facility] Last Admin: 01/28/25 05:42 Dose: 100 mcg Documented By: YANG Lidocaine (Lidocaine 4 % Patch Adh..Patch) 1 patch TRANSDERMA DAILY [facility]; Protocol Last Admin: 01/28/25 08:22 Dose: 1 patch Documented By: CECILIA Magnesium Hydroxide (Milk Of Magnesia 30 Ml Oral.Susp) 30 ml PO DAILY PRN PRN Reason: Constipation Melatonin (Melatonin 3 Mg Tablet) 6 mg PO BEDTIME PRN PRN Reason: Insomnia Methylprednisolone Sodium Succinate (Methylprednisolone Sod Succ 40 Mg/Ml Vial) 40 mg IVPUSH Q24H [facility] Metoprolol Succinate (Metoprolol Succinate Er 100 Mg Tab.Er.24h) 100 mg PO DAILY [facility]; Protocol Last Admin: 01/28/25 08:21 Dose: 100 mg Documented By: CECILIA Ondansetron HCl (Ondansetron Hcl 4 Mg/2 Ml Vial) 4 mg IVPUSH Q6H PRN PRN Reason: Nausea Last Admin: 01/27/25 17:44 Dose: 4 mg Documented By: BERTRAND Sodium Chloride (0.9 % Sodium Chloride Flush 3 Ml Syringe) 3 [facility] Last Admin: 01/28/25 08:22 Dose: 3 ml Documented By: CECILIA Thiamine HCl (Thiamine Hcl 100 Mg Tablet) 100 mg PO DAILY [facility] Last Admin: 01/28/25 08:21 Dose: 100 mg Documented By: CECILIA Tramadol HCl (Tramadol Hcl 50 Mg Tablet) 50 mg PO Q6H PRN PRN Reason: Pain, Moderate(Pain Scale 4-6) Last Admin: 01/27/25 19:59 Dose: 50 mg Documented By: YANG Vitamin D (Cholecalciferol (Vitamin D3) 25 Mcg Tablet) 25 mcg PO DAILY [facility] Last Admin: 01/28/25 08:21 Dose: 25 mcg Documented By: CECILIA Labs 01/28/25 08:44 01/28/25 08:15 Labs: Laboratory Results - last 24 hr 01/27/25 01/27/25 01/28/25 17:18 19:40 07:32 MCV MCH MCHC RDW Plt Count MPV Absolute Nucleated RBC Nucleated RBC % (auto) Anion Gap Estim Creat Clear Calc Estimated GFR POC Glucose 75 82 70 Random Glucose Calcium NT-Pro-B Natriuret Pep Procalcitonin 01/28/25 01/28/25 01/28/25 08:15 08:44 11:19 MCV 90.1 MCH 28.0 MCHC 31.1 RDW 15.0 Plt Count 268 D MPV 10.2 Absolute Nucleated RBC 0.000 Nucleated RBC % (auto) 0.0 Anion Gap 16 Estim Creat Clear Calc 33.0 Estimated GFR 38 POC Glucose 105 Random Glucose 80 Calcium 9.1 NT-Pro-B Natriuret Pep 3349.8 H Procalcitonin 0.04 Impressions Abdomen/Pelvis CT 01/27/25 15:36 IMPRESSION: 1. Wall thickening of the urinary bladder with mucosal enhancement suggestive of cystitis. 2. Otherwise, no definite acute finding in the abdomen or pelvis. 3. There is new segmental consolidation in the right lower lobe posteriorly, which could represent pneumonia in the appropriate clinical setting. 4. Severe aortic atherosclerotic disease with a infrarenal chronic dissection versus large plaque ulceration, stable from the prior examinations. Fusiform aneurysm in the infrarenal region measuring 3.2 cm, stable. 5. Numerous chronic findings which are stable from the prior examinations. Electronically signed by: Shaun Miles MD 01/27/2025 04:12 PM [facility] Assessment and Plan (1) Paroxysmal atrial fibrillation: Status: Acute (2) Congestive heart failure: Status: Acute Plan d7, 84yo M with chronic systolic HF, CAD, HTN, HLD, DM2, chronic pain, hx C. difficile, COPD, AAA, hypothyroidism, FM, restrictive lung disease, morbid obesity presenting with abd pain, admitted for suspected CHF exacerbation cystitis/UTI - ceftriaxone 01/28-, follow UCx RLL PNA - ceftriaxone + doxycycline 01/28- COPD exacerbation - start methlyprednisolone 01/28-, ABX as above, prn nebs, continue Breo SHANEL - suspect due to overdiuresis; monitor SCr while holding diuresis acute/chronic HFrEF - holding furosemide as above - Cardiology consulted - TTE 01/22/25: '- The left ventricular systolic function is mild to moderately decreased. The calculated ejection fraction is 40% by biplane method. - No obvious valvular pathology seen on this study' constipation - bowel regimen chronic back pain - CT L-spine 01/24: '1. No acute lumbar spine fracture or traumatic subluxation. 2. Moderately extensive multilevel lumbar spine arthropathy as detailed above. If patient continues to have persistent worsening symptoms, consider MRI for further evaluation.' - add lidocaine patch chronic pain/FM: duloxetine, gabapentin pAF: apixaban, dilitiazem, metoprolol succinate DM2: correction-dose lispro hypothyroidism: LT4 morbid obesity: diet/exercise counseling VTE ppx: apixaban dispo: has 10/09 care at home from home health aides In my clinical judgment, the patient requires continued inpatient hospitalization for the following reasons: IV ABX Total time managing care of this patient today: 35 minutes. Quality Stroke Does the patient have a stroke diagnosis?: No VTE Prior VTE?: No VTE Risk Level:: Medical - moderate - high VTE Device Contraindication: Treatment Not Indicated VTE Drug Contraindication: N/A - Med Ordered
[2025-01-28] MEDS: Albuterol/Iprat 2.5/0.5MG 3 ML AMPUL.NEB INHALE (14:05)
[2025-01-28 16:36] LABS: Glucose, Whole Blood 99 mg/dL (60-115)
[2025-01-28 17:30] LABS: Appearance Urine Cloudy; Glucose Urine UA Negative (Negative); PH 5.5 (5.0-9.0); Specific Gravity - Urine >= 1.030 (1.005-1.025); UMIC TRIGGER UA YES
[2025-01-28 20:29] LABS: Glucose, Whole Blood 284 mg/dL (60-115)
[2025-01-29] VITALS (7 sets, daily range): BP systolic 112–148; BP diastolic 63–69; PULSE 56–82; RESP 16–20; TEMP 35.8–36.8; O2SAT 90–95
[2025-01-29] MEDS: 0.9 % Sodium Chloride Flush 3 ML SYRINGE IVFLUSH ×3 (00:35→17:05)
[2025-01-29 06:31] LABS: Venous Blood Gas Refer to POC result
[2025-01-29 06:31] LABS: VBG HCO3 38 mmol/L (22-26); VBG O2 % Saturation 52.0 %
[2025-01-29 06:50] LABS: Anion Gap 14 (12-20); Blood Urea Nitrogen 55 mg/dL (9-16); Calcium 9.4 mg/dL (8.4-10.2); Carbon Dioxide 35 mmol/L (22-29); Chloride 96 mmol/L (96-108); Creatinine Clr Calc Pharmacy 32.7; Estimated Glomerular Filt Rate 38; Potassium 4.9 mmol/L (3.3-5.1); Sodium 140 mmol/L (135-145)
[2025-01-29 07:30] LABS: Glucose, Whole Blood 127 mg/dL (60-115)
[2025-01-29] MEDS: Fluticasone/Vilanterol 200/25 BLST.W.DEV 1 PUFF INHALE (07:41)
[2025-01-29] MEDS: dilTIAZem HCL CD 120 MG CAP.ER.DEG PO (08:16)
[2025-01-29] MEDS: Metoprolol Succinate ER 100 MG TAB.ER.24H PO (08:16)
[2025-01-29] MEDS: Lidocaine 4 % Patch ADH..PATCH 1 PATCH TRANSDERMA (08:16)
[2025-01-29] MEDS: Aspirin Enteric Coated 81 MG TABLET.DR PO (08:16)
--- NOTE | 2025-01-29 11:12 | HO.PM.IMPN ---
Subjective Subjective Date of Service: 01/29/25 Interval History: found to retain CO2; currently on 4L [2L at home] dyspnea and wheezing improved Review of Systems Review of Systems: Yes all other systems are reviewed and are negative Physical Exam Vital Signs: Vital Signs: Last Vital Signs Temp 98.1 F 01/29/25 07:12 Pulse 77 01/29/25 07:45 Resp 18 01/29/25 07:45 BP 112/63 01/29/25 07:12 Pulse Ox 92 01/29/25 07:12 O2 Del Method Nasal Cannula 01/29/25 07:12 O2 Flow Rate 4 01/29/25 03:13 Oxygen Flow Rate 2 01/22/25 07:46 BMI result Body Mass Index 39.4 Gen: in no acute distress, chronically weak HEENT: sclera anicteric, moist mucus membranes Neck: supple Lungs: diminished Heart: regular rate and rhythm, no murmurs Abd: soft, bilateral lower quadrant tenderness without rebound, non-distended Ext: no edema Skin: warm/well-perfused Neuro: alert and oriented x3, bilateral leg weakness 2/5 Psych: appropriate affect Objective Data Active Medications Acetaminophen (Acetaminophen 325 Mg Tablet) 650 mg PO Q6H PRN PRN Reason: Pain, Mild 1-3,fever,headache Last Admin: 01/23/25 09:59 Dose: 650 mg Documented By: PIPER Albuterol/Ipratropium (Albuterol/Iprat 2.5/0.5mg 3 Ml Ampul.Neb) 3 ml INHALE RQ4H WHILE AWAKE PRN PRN Reason: Shortness of Breath Last Admin: 01/28/25 14:05 Dose: 3 ml Documented By: MUSHTAQ Apixaban (Apixaban 5 Mg Tablet) 5 mg PO BID [facility] Last Admin: 01/29/25 08:16 Dose: 5 mg Documented By: CECILIA Ascorbic Acid (Ascorbic Acid 500 Mg Tablet) 500 mg PO BID [facility] Last Admin: 01/29/25 08:16 Dose: 500 mg Documented By: CECILIA Aspirin (Aspirin Enteric Coated 81 Mg Tablet.) 81 mg PO DAILY [facility] Last Admin: 01/29/25 08:16 Dose: 81 mg Documented By: CECILIA Atorvastatin Calcium (Atorvastatin Calcium 80 Mg Tablet) 80 mg PO BEDTIME [facility] Last Admin: 01/28/25 20:42 Dose: 80 mg Documented By: YANG Benzonatate (Benzonatate 100 Mg Capsule) 100 mg PO TID PRN PRN Reason: Cough Calcium Carbonate (Calcium Carbonate 750 Mg Tab.Chew) 750 mg PO Q4H PRN PRN Reason: Heartburn Dextrose (Dextrose 50 % 25 Gm/50 Ml Syringe) 25 gm IVPUSH Q15M PRN; Protocol PRN Reason: per Hypoglycemia Standing Ord. Last Admin: 01/26/25 16:20 Dose: 25 gm Documented By: CHRISTINE Diltiazem HCl (Diltiazem Hcl Cd 120 Mg Cap.Er.Deg) 120 mg PO DAILY [facility]; Protocol Last Admin: 01/29/25 08:16 Dose: 120 mg Documented By: CECILIA Doxycycline Monohydrate (Doxycycline Monohydrate 100 Mg Capsule) 100 mg PO Q12H [facility] Last Admin: 01/29/25 00:32 Dose: 100 mg Documented By: YANG Duloxetine HCl (Duloxetine Hcl 30 Mg Capsule.Dr) 30 mg PO DAILY [facility] Last Admin: 01/29/25 08:16 Dose: 30 mg Documented By: CECILIA Ezetimibe (Ezetimibe 10 Mg Tablet) 10 mg PO DAILY [facility] Last Admin: 01/29/25 08:16 Dose: 10 mg Documented By: CECILIA Fluticasone/Vilanterol (Fluticasone/Vilanterol 200/25 Blst.W.Dev) 1 puff INHALE RDAILY [facility] Last Admin: 01/29/25 07:41 Dose: 1 puff Documented By: MUSHTAQ Furosemide (Furosemide 40 Mg/4 Ml Vial) 40 mg IVPUSH DAILY [facility]; Protocol On Hold: 01/25/25 11:10 Last Admin: 01/25/25 08:14 Dose: 40 mg Documented By: BRIDGETT Gabapentin (Gabapentin 100 Mg Capsule) 100 mg PO BEDTIME [facility] Last Admin: 01/28/25 20:42 Dose: 100 mg Documented By: YANG Glucose (Glucose Gel 15 Gm Gel..Gram.) 15 gm PO Q15M PRN; Protocol PRN Reason: per Hypoglycemia Standing Ord. Ceftriaxone Sodium 1 gm/ (Sodium Chloride) 50 mls @ 100 mls/hr IV Q24H [facility] Last Infusion: 01/28/25 13:40 Dose: Infused Documented By: CECILIA Insulin Human Lispro (Insulin Lispro 100 Unit/Ml 3 Ml Vial) 0 unit SUBCUT QIDACHS [facility]; Protocol Last Admin: 01/29/25 07:38 Dose: Not Given Documented By: CECILIA Non-Admin Reason: No Insulin Coverage Levothyroxine Sodium (Levothyroxine Sodium 100 Mcg Tablet) 100 mcg PO DAILY@0600 [facility] Last Admin: 01/29/25 05:19 Dose: 100 mcg Documented By: YANG Lidocaine (Lidocaine 4 % Patch Adh..Patch) 1 patch TRANSDERMA DAILY [facility]; Protocol Last Admin: 01/29/25 08:16 Dose: 1 patch Documented By: CECILIA Magnesium Hydroxide (Milk Of Magnesia 30 Ml Oral.Susp) 30 ml PO DAILY PRN PRN Reason: Constipation Melatonin (Melatonin 3 Mg Tablet) 6 mg PO BEDTIME PRN PRN Reason: Insomnia Methylprednisolone Sodium Succinate (Methylprednisolone Sod Succ 40 Mg/Ml Vial) 40 mg IVPUSH Q24H [facility] Last Admin: 01/28/25 12:56 Dose: 40 mg Documented By: CECILIA Metoprolol Succinate (Metoprolol Succinate Er 100 Mg Tab.Er.24h) 100 mg PO DAILY [facility]; Protocol Last Admin: 01/29/25 08:16 Dose: 100 mg Documented By: CECILIA Ondansetron HCl (Ondansetron Hcl 4 Mg/2 Ml Vial) 4 mg IVPUSH Q6H PRN PRN Reason: Nausea Last Admin: 01/27/25 17:44 Dose: 4 mg Documented By: BERTRAND Sodium Chloride (0.9 % Sodium Chloride Flush 3 Ml Syringe) 3 ml IVFLUSH QSHIFT [facility] Last Admin: 01/29/25 08:17 Dose: 3 ml Documented By: CECILIA Thiamine HCl (Thiamine Hcl 100 Mg Tablet) 100 mg PO DAILY [facility] Last Admin: 01/29/25 08:16 Dose: 100 mg Documented By: CECILIA Tramadol HCl (Tramadol Hcl 50 Mg Tablet) 50 mg PO Q6H PRN PRN Reason: Pain, Moderate(Pain Scale 4-6) Last Admin: 01/29/25 05:47 Dose: 50 mg Documented By: HO.MARTYA Vitamin D (Cholecalciferol (Vitamin D3) 25 Mcg Tablet) 25 mcg PO DAILY [facility] Last Admin: 01/29/25 08:16 Dose: 25 mcg Documented By: CECILIA Labs 01/28/25 08:44 01/29/25 06:19 Labs: Laboratory Results - last 24 hr 01/28/25 01/28/25 01/28/25 11:19 16:28 17:02 VBG pH VBG pCO2 VBG pO2 VBG HCO3 VBG O2 Saturation VBG Base Excess Anion Gap Estim Creat Clear Calc Estimated GFR POC Glucose 105 99 Random Glucose Calcium Urine Color Yellow Urine Appearance Cloudy Urine pH 5.5 Ur Specific Ames >= 1.030 H Urine Protein 30 (1+) H Urine Glucose (UA) Negative Urine Ketones Negative Urine Blood Large (3+) H Urine Nitrite Negative Ur Leukocyte Esterase Moderate (2+) H Urine RBC 11-20 H Urine WBC >50 H Ur Squamous Epith Cells 0-2 Urine Bacteria 4+ Hyaline Casts 0-2 01/28/25 01/29/25 01/29/25 19:58 06:19 06:25 VBG pH 7.43 VBG pCO2 57 VBG pO2 37 VBG HCO3 38 H VBG O2 Saturation 52.0 VBG Base Excess 11.8 Anion Gap 14 Estim Creat Clear Calc 32.7 Estimated GFR 38 POC Glucose 284 H Random Glucose 147 H Calcium 9.4 Urine Color Urine Appearance Urine pH Ur Specific Ames Urine Protein Urine Glucose (UA) Urine Ketones Urine Blood Urine Nitrite Ur Leukocyte Esterase Urine RBC Urine WBC Ur Squamous Epith Cells Urine Bacteria Hyaline Casts 01/29/25 07:14 VBG pH VBG pCO2 VBG pO2 VBG HCO3 VBG O2 Saturation VBG Base Excess Anion Gap Estim Creat Clear Calc Estimated GFR POC Glucose 127 H Random Glucose Calcium Urine Color Urine Appearance Urine pH Ur Specific Ames Urine Protein Urine Glucose (UA) Urine Ketones Urine Blood Urine Nitrite Ur Leukocyte Esterase Urine RBC Urine WBC Ur Squamous Epith Cells Urine Bacteria Hyaline Casts Assessment and Plan (1) Paroxysmal atrial fibrillation: Status: Acute (2) Congestive heart failure: Status: Acute Plan d8, 84yo M with chronic systolic HF, CAD, HTN, HLD, DM2, chronic pain, hx C. difficile, COPD, AAA, hypothyroidism, FM, restrictive lung disease, morbid obesity presenting with abd pain, admitted for suspected CHF exacerbation; complicated by SHANEL so diuresis held; found to have RLL PNA and COPD flare along with UTI/cystitis cystitis/UTI - ceftriaxone 01/28-, follow UCx RLL PNA - ceftriaxone + doxycycline 01/28- COPD exacerbation - started methlyprednisolone 01/28-, ABX as above, prn nebs, continue Breo SHANEL - suspect due to overdiuresis; monitor SCr while holding diuresis acute/chronic HFrEF - holding furosemide as above - Cardiology consulted - TTE 01/22/25: '- The left ventricular systolic function is mild to moderately decreased. The calculated ejection fraction is 40% by biplane method. - No obvious valvular pathology seen on this study' constipation - bowel regimen chronic back pain - CT L-spine 01/24: '1. No acute lumbar spine fracture or traumatic subluxation. 2. Moderately extensive multilevel lumbar spine arthropathy as detailed above. If patient continues to have persistent worsening symptoms, consider MRI for further evaluation.' - added lidocaine patch chronic pain/FM: duloxetine, gabapentin pAF: apixaban, dilitiazem, metoprolol succinate DM2: correction-dose lispro hypothyroidism: LT4 morbid obesity: diet/exercise counseling VTE ppx: apixaban dispo: has 10/09 care at home from home health aides; likely home in next 1-2d In my clinical judgment, the patient requires continued inpatient hospitalization for the following reasons: IV ABX Total time managing care of this patient today: 35 minutes. Quality Stroke Does the patient have a stroke diagnosis?: No VTE Prior VTE?: No VTE Risk Level:: Medical - moderate - high VTE Device Contraindication: Treatment Not Indicated VTE Drug Contraindication: N/A - Med Ordered
[2025-01-29 11:43] LABS: Glucose, Whole Blood 156 mg/dL (60-115)
--- NOTE | 2025-01-29 16:22 | MHC.CM.PN ---
Addendum entered by Betty Benson 01/31/25 09:17: PT WILL NOT BE DISCHARGED TODAY DUE TO GI BLEED CM CALLED [facility] [phone] AND SPOKE TO FARA AT THE ANSWERING SERVICE WHO STATED SHE WOULD SEND THE MESSAGE TO THE SENIOR ACCOUNTING CLERK STAFF BLS TRANSPORT WITH [facility] NOTIFIED VIA [facility] WILL NOTIFY PTS DAUGHTER Addendum entered by Betty Benson 01/30/25 15:55: TOSHIA REAVES ALSO NOTIFIED OF EXPECTED DC Addendum entered by Betty Benson 01/30/25 15:52: JOAQUIN SPOKE TO JOSELITO AT [facility] TODAY SHE CONFIRMS THEY ARE ABLE TO START TOMORROW PER DISCUSSION, TRANSPORT BOOKED FOR 1000, [employer]MM[employer] TO RESUME SOC AT 1100 VM MESSAGE LEFT FOR DAUGHTER/HCP FABIOLA Original Note: PER MD ROUNDS, PT MAY BE READY TO DC TOMORROW VM MESSAGES LEFT FOR DAUGHTER/HCP, FABIOLA AND [facility]
[2025-01-29 16:58] LABS: Glucose, Whole Blood 167 mg/dL (60-115)
[2025-01-29 20:54] LABS: Glucose, Whole Blood 179 mg/dL (60-115)
[2025-01-30] VITALS (8 sets, daily range): BP systolic 120–156; BP diastolic 60–77; PULSE 71–90; RESP 17–20; TEMP 36–36.7; O2SAT 86–92
[2025-01-30] MEDS: 0.9 % Sodium Chloride Flush 3 ML SYRINGE IVFLUSH ×4 (00:42→21:37)
[2025-01-30 06:18] LABS: Hematocrit 37.5 % (37.0-47.0); Hemoglobin 11.5 g/dl (12.0-16.0); Mean Corpuscular HGB Conc 30.7 g/dl (31.0-35.0); Mean Corpuscular Hemoglobin 28.0 pg (27.0-33.0); Mean Corpuscular Volume 91.2 fL (80.0-98.0); NRBC Abs Auto 0.000 X10*3/uL (0.0-0.012); NRBC Pct Auto 0.0 /100WBC (0.0-0.2); Platelet Count 286 X10*3/uL (160-400); Red Blood Count 4.11 X10*6/uL (4.20-5.50); White Blood Count 9.3 X10*3/uL (4.8-10.8)
[2025-01-30 06:20] LABS: Venous Blood Gas Refer to POC result
[2025-01-30 06:22] LABS: VBG HCO3 44 mmol/L (22-26); VBG O2 % Saturation 75.0 %
[2025-01-30 06:47] LABS: Anion Gap 14 (12-20); Blood Urea Nitrogen 62 mg/dL (9-16); Calcium 9.5 mg/dL (8.4-10.2); Carbon Dioxide 33 mmol/L (22-29); Chloride 97 mmol/L (96-108); Creatinine Clr Calc Pharmacy 36.9; Estimated Glomerular Filt Rate 43; Potassium 4.9 mmol/L (3.3-5.1); Sodium 139 mmol/L (135-145)
[2025-01-30 07:04] LABS: Procalcitonin 0.03 ng/mL
[2025-01-30 07:43] LABS: Glucose, Whole Blood 138 mg/dL (60-115)
[2025-01-30] MEDS: Metoprolol Succinate ER 100 MG TAB.ER.24H PO (08:31)
[2025-01-30] MEDS: dilTIAZem HCL CD 120 MG CAP.ER.DEG PO (08:31)
[2025-01-30] MEDS: Lidocaine 4 % Patch ADH..PATCH 1 PATCH TRANSDERMA (08:32)
[2025-01-30] MEDS: Aspirin Enteric Coated 81 MG TABLET.DR PO (08:32)
[2025-01-30] MEDS: Albuterol/Iprat 2.5/0.5MG 3 ML AMPUL.NEB INHALE (08:46)
[2025-01-30] MEDS: Fluticasone/Vilanterol 200/25 BLST.W.DEV 1 PUFF INHALE (08:47)
[2025-01-30 11:28] LABS: Glucose, Whole Blood 115 mg/dL (60-115)
[2025-01-30] MEDS: Milk of Magnesia 30 ML ORAL.SUSP PO (13:04)
--- NOTE | 2025-01-30 14:27 | P.PNIM_ITS ---
Subjective Subjective Date of Service: 01/30/25 Interval History: No acute issues overnight. Notes some improvement since admission Review of Systems Denies chest pain Denies shortness of breath Denies nausea vomiting diarrhea Denies fever chills Physical Exam 2 Vital Signs: Vital Signs: Last Vital Signs Temp 98.0 F 01/30/25 12:00 Pulse 78 01/30/25 12:00 Resp 18 01/30/25 12:00 BP 120/70 01/30/25 12:00 Pulse Ox 92 01/30/25 12:00 O2 Del Method Nasal Cannula 01/30/25 12:00 O2 Flow Rate 2 01/30/25 12:00 Oxygen Flow Rate 2 01/22/25 07:46 BMI result Body Mass Index 39.4 Const: Other: Awake alert no acute distress Resp: Other: Clear to auscultation bilaterally no rales rhonchi or wheezes Cardio: Other: No S4; positive S1-S2; no S3 murmurs rubs or gallops GI: Other: Soft nontender nondistended normoactive bowel sounds Extrem: Other: No edema bilaterally Objective Data Active Medications Acetaminophen (Acetaminophen 325 Mg Tablet) 650 mg PO Q6H PRN PRN Reason: Pain, Mild 1-3,fever,headache Last Admin: 01/23/25 09:59 Dose: 650 mg Documented By: PIPER Albuterol/Ipratropium (Albuterol/Iprat 2.5/0.5mg 3 Ml Ampul.Neb) 3 ml INHALE RQ4H WHILE AWAKE PRN PRN Reason: Shortness of Breath Last Admin: 01/30/25 08:46 Dose: 3 ml Documented By: PASTOR Apixaban (Apixaban 5 Mg Tablet) 5 mg PO BID [facility] Last Admin: 01/30/25 08:31 Dose: 5 mg Documented By: TAN Ascorbic Acid (Ascorbic Acid 500 Mg Tablet) 500 mg PO BID [facility] Last Admin: 01/30/25 08:31 Dose: 500 mg Documented By: TAN Aspirin (Aspirin Enteric Coated 81 Mg Tablet.) 81 mg PO DAILY [facility] Last Admin: 01/30/25 08:32 Dose: 81 mg Documented By: TAN Atorvastatin Calcium (Atorvastatin Calcium 80 Mg Tablet) 80 mg PO BEDTIME [facility] Last Admin: 01/29/25 21:15 Dose: 80 mg Documented By: MARU Benzonatate (Benzonatate 100 Mg Capsule) 100 mg PO TID PRN PRN Reason: Cough Calcium Carbonate (Calcium Carbonate 750 Mg Tab.Chew) 750 mg PO Q4H PRN PRN Reason: Heartburn Dextrose (Dextrose 50 % 25 Gm/50 Ml Syringe) 25 gm IVPUSH Q15M PRN; Protocol PRN Reason: per Hypoglycemia Standing Ord. Last Admin: 01/26/25 16:20 Dose: 25 gm Documented By: CHRISTINE Diltiazem HCl (Diltiazem Hcl Cd 120 Mg Cap.Er.Deg) 120 mg PO DAILY [facility]; Protocol Last Admin: 01/30/25 08:31 Dose: 120 mg Documented By: TAN Doxycycline Monohydrate (Doxycycline Monohydrate 100 Mg Capsule) 100 mg PO Q12H [facility] Last Admin: 01/30/25 13:04 Dose: 100 mg Documented By: TAN Duloxetine HCl (Duloxetine Hcl 30 Mg Capsule.Dr) 30 mg PO DAILY [facility] Last Admin: 01/30/25 08:31 Dose: 30 mg Documented By: TAN Ezetimibe (Ezetimibe 10 Mg Tablet) 10 mg PO DAILY [facility] Last Admin: 01/30/25 08:32 Dose: 10 mg Documented By: TAN Fluticasone/Vilanterol (Fluticasone/Vilanterol 200/25 Blst.W.Dev) 1 puff INHALE RDAILY [facility] Last Admin: 01/30/25 08:47 Dose: 1 puff Documented By: PASTOR Furosemide (Furosemide 40 Mg/4 Ml Vial) 40 mg IVPUSH DAILY [facility]; Protocol On Hold: 01/25/25 11:10 Last Admin: 01/25/25 08:14 Dose: 40 mg Documented By: BRIDGETT Gabapentin (Gabapentin 100 Mg Capsule) 100 mg PO BEDTIME [facility] Last Admin: 01/29/25 21:15 Dose: 100 mg Documented By: MARU Glucose (Glucose Gel 15 Gm Gel..Gram.) 15 gm PO Q15M PRN; Protocol PRN Reason: per Hypoglycemia Standing Ord. Ceftriaxone Sodium 1 gm/ (Sodium Chloride) 50 mls @ 100 mls/hr IV Q24H [facility] Last Infusion: 01/30/25 13:48 Dose: Infused Documented By: TAN Insulin Human Lispro (Insulin Lispro 100 Unit/Ml 3 Ml Vial) 0 unit SUBCUT QIDACHS [facility]; Protocol Last Admin: 01/30/25 12:03 Dose: Not Given Documented By: TAN Non-Admin Reason: No Insulin Coverage Levothyroxine Sodium (Levothyroxine Sodium 100 Mcg Tablet) 100 mcg PO DAILY@0600 [facility] Last Admin: 01/30/25 05:05 Dose: 100 mcg Documented By: MARU Lidocaine (Lidocaine 4 % Patch Adh..Patch) 1 patch TRANSDERMA DAILY [facility]; Protocol Last Admin: 01/30/25 08:32 Dose: 1 patch Documented By: TAN Magnesium Hydroxide (Milk Of Magnesia 30 Ml Oral.Susp) 30 ml PO DAILY PRN PRN Reason: Constipation Last Admin: 01/30/25 13:04 Dose: 30 ml Documented By: TAN Melatonin (Melatonin 3 Mg Tablet) 6 mg PO BEDTIME PRN PRN Reason: Insomnia Methylprednisolone Sodium Succinate (Methylprednisolone Sod Succ 40 Mg/Ml Vial) 40 mg IVPUSH Q24H [facility] Last Admin: 01/30/25 13:05 Dose: 40 mg Documented By: TAN Metoprolol Succinate (Metoprolol Succinate Er 100 Mg Tab.Er.24h) 100 mg PO DAILY [facility]; Protocol Last Admin: 01/30/25 08:31 Dose: 100 mg Documented By: TAN Ondansetron HCl (Ondansetron Hcl 4 Mg/2 Ml Vial) 4 mg IVPUSH Q4H PRN PRN Reason: Nausea Last Admin: 01/30/25 13:26 Dose: 4 mg Documented By: TAN Sodium Chloride (0.9 % Sodium Chloride Flush 3 Ml Syringe) 3 ml IVFLUSH QSHIFT [facility] Last Admin: 01/30/25 08:33 Dose: 3 ml Documented By: TAN Thiamine HCl (Thiamine Hcl 100 Mg Tablet) 100 mg PO DAILY [facility] Last Admin: 01/30/25 08:31 Dose: 100 mg Documented By: TAN Tramadol HCl (Tramadol Hcl 50 Mg Tablet) 50 mg PO Q6H PRN PRN Reason: Pain, Moderate(Pain Scale 4-6) Last Admin: 01/30/25 13:25 Dose: 50 mg Documented By: TAN Vitamin D (Cholecalciferol (Vitamin D3) 25 Mcg Tablet) 25 mcg PO DAILY [facility] Last Admin: 01/30/25 08:31 Dose: 25 mcg Documented By: TAN Labs 01/30/25 06:09 01/30/25 06:09 Labs: Laboratory Results - last 24 hr 01/29/25 01/29/25 01/30/25 16:52 20:43 06:09 MCV 91.2 MCH 28.0 MCHC 30.7 L RDW 15.2 Plt Count 286 MPV 10.2 Absolute Nucleated RBC 0.000 Nucleated RBC % (auto) 0.0 VBG pH VBG pCO2 VBG pO2 VBG HCO3 VBG O2 Saturation VBG Base Excess Anion Gap 14 Estim Creat Clear Calc 36.9 Estimated GFR 43 POC Glucose 167 H 179 H Random Glucose 130 H Calcium 9.5 Procalcitonin 0.03 01/30/25 01/30/25 01/30/25 06:16 07:39 11:25 MCV MCH MCHC RDW Plt Count MPV Absolute Nucleated RBC Nucleated RBC % (auto) VBG pH 7.53 H VBG pCO2 52 VBG pO2 49 VBG HCO3 44 H VBG O2 Saturation 75.0 VBG Base Excess 19.5 Anion Gap Estim Creat Clear Calc Estimated GFR POC Glucose 138 H 115 Random Glucose Calcium Procalcitonin Microbiology Microbiology Results: Microbiology 01/28/25 17:02 Urine Culture - Final Urine clean catch - Clean Catch Midstream Assessment and Plan (1) Urinary tract infection: Status: Acute (2) Atrial fibrillation: Status: Acute (3) Congestive heart failure: Status: Acute Plan d8, 84yo M with chronic systolic HF, CAD, HTN, HLD, DM2, chronic pain, hx C. difficile, COPD, AAA, hypothyroidism, FM, restrictive lung disease, morbid obesity presenting with abd pain, admitted for suspected CHF exacerbation; complicated by SHANEL so diuresis held; found to have RLL PNA and COPD flare along with UTI/cystitis 1.Cystitis/UTI - ceftriaxone (3)... Culture with mixed nichole -complete a course of Ceftin 2. Right lower lobe infiltrate - ceftriaxone/doxycycline (3) -O2 titrated back to baseline. . . 2 L -switch to oral upon DC 3.COPD exacerbation -improved with therapy -p.o. prednisone as outpatient completeness -continue all other outpatient therapies 4.SHANEL - suspect due to overdiuresis; monitor SCr while holding diuresis -follow renals divalent in a.m. 5.Acute/chronic HFrEF - holding furosemide as above - clinically improved -continue current therapies 6. Chronic atrial fibrillation -acceptable control on current therapies.. Eliquis as ordered -adjust as clinically indicate Full code Eliquis Requires ongoing hospitalization to treat pneumonia with IV antibiotics Quality Stroke Does the patient have a stroke diagnosis?: No VTE Prior VTE?: No VTE Risk Level:: Medical - moderate - high VTE Device Contraindication: Treatment Not Indicated VTE Drug Contraindication: N/A - Med Ordered
[2025-01-30 16:06] LABS: Glucose, Whole Blood 149 mg/dL (60-115)
[2025-01-30 21:19] LABS: Glucose, Whole Blood 206 mg/dL (60-115)
[2025-01-31] VITALS (10 sets, daily range): BP systolic 120–159; BP diastolic 56–83; PULSE 68–88; RESP 16–18; TEMP 36.3–36.6; O2SAT 88–94
--- NOTE | 2025-01-31 03:08 | PM.EVENT ---
Event Note Date of Service: 01/31/25 Event Note: 0300 AM, nursing reported one episode of melena, when yesterday BM was normal. hemodynamics stable. Stat labs pending. Type and Screen ordered. Protonix IV. Pt has been on Apixiban for AFIB and ASA. Those 2 medications are on hold. Pt made NPO and will startt IVF. GI consulted. No reported hx of GIB. 0430 H/H stable 10/31.8, was 11.5/37.5, PLTs 325K, INR 2.7, VBG 7.48, 57, 76, 43, K 5.3. Administering 5 u R insulin and [address] pt on tele. Hemodynamics have remained stable, pt appears comfortable lying in bed sleeping. Will continue to hold eliquis and ASA. GI consulted. Repeat H/H and K 10 AM Pt has baseline confusion and will not be able to sign blood consent if needed. No current indication for transfusion at this time. 0520 Pt had second episode of melena, hemodynamics remain stable. Stool sent for occult. Pt now on tele. Sign out provided to day rounder. Time Spent With Patient Time: Total time managing care of this patient today ____ minutes.
[2025-01-31 03:21] LABS: Glucose, Whole Blood 97 mg/dL (60-115)
[2025-01-31 04:12] LABS: MANUAL DIFF FLAG NO
[2025-01-31 04:13] LABS: Hematocrit 31.8 % (37.0-47.0); Hemoglobin 10.0 g/dl (12.0-16.0); Imm Gran Abs Auto 0.09 X10*3/uL (0.00-0.03); Imm Gran Pct Auto 1.0 % (0.0-0.4); Lymphocytes Absolute Auto 1.3 X10*3/uL (1.2-4.9); Mean Corpuscular HGB Conc 31.4 g/dl (31.0-35.0); Mean Corpuscular Hemoglobin 27.6 pg (27.0-33.0); Mean Corpuscular Volume 87.8 fL (80.0-98.0); NRBC Abs Auto 0.000 X10*3/uL (0.0-0.012); NRBC Pct Auto 0.0 /100WBC (0.0-0.2); Platelet Count 325 X10*3/uL (160-400); Red Blood Count 3.62 X10*6/uL (4.20-5.50); White Blood Count 8.7 X10*3/uL (4.8-10.8)
[2025-01-31 04:15] LABS: Venous Blood Gas Refer to POC result
[2025-01-31 04:15] LABS: VBG HCO3 43 mmol/L (22-26); VBG O2 % Saturation 95.0 %
[2025-01-31 04:18] LABS: INTERNATIONAL NORM RATIO 2.1 (0.9-1.1); Prothrombin Time 25.2 SEC (11.2-13.5)
[2025-01-31 04:21] LABS: Partial Thromboplastin Time 33.1 SEC (26.7-34.1)
[2025-01-31 04:28] LABS: Alanine Aminotransferase 6 U/L (0-31); Albumin Level 3.3 g/dL (3.5-5.0); Alkaline Phosphatase 106 U/L (39-117); Anion Gap 14 (12-20); Aspartate Amino Transferase 23 U/L (5-31); Blood Urea Nitrogen 64 mg/dL (9-16); Calcium 9.1 mg/dL (8.4-10.2); Carbon Dioxide 32 mmol/L (22-29); Chloride 101 mmol/L (96-108); Creatinine Clr Calc Pharmacy 40.3; Estimated Glomerular Filt Rate 48; Potassium 5.3 mmol/L (3.3-5.1); Sodium 142 mmol/L (135-145); Total Protein 5.9 g/dL (6.5-8.0)
--- NOTE | 2025-01-31 04:46 | PC.NURSE ---
at 0300 pt was being repositioned and was found to have a bowel movement containing dark red blood clots. pt mental status and vital signs within normal limits, [employer] Michael notified, new orders obtained, refer to pt chart.
[2025-01-31 05:44] LABS: OBS Int Ctl Valid YES
[2025-01-31 05:47] LABS: OBS1 POSITIVE (NEGATIVE)
[2025-01-31 08:09] LABS: Glucose, Whole Blood 146 mg/dL (60-115)
[2025-01-31] MEDS: 0.9 % Sodium Chloride Flush 3 ML SYRINGE IVFLUSH ×2 (08:18→14:57)
[2025-01-31] MEDS: Metoprolol Succinate ER 100 MG TAB.ER.24H PO (08:26)
[2025-01-31] MEDS: Lidocaine 4 % Patch ADH..PATCH 1 PATCH TRANSDERMA (08:26)
[2025-01-31] MEDS: dilTIAZem HCL CD 120 MG CAP.ER.DEG PO (08:26)
--- NOTE | 2025-01-31 08:35 | P.CNGI_ITS ---
History of Present Illness Data of Consult Service Date: 01/31/25 Primary Care Provider: Chantal Lay MD HPI Reason for consult: GI bleeding 84 YF with HTN, HLD, CAD, CHF, chronic pain syndrome, degenerative spine disease, arthritis, HX C diff infection, pulmonary nodules, COPD, abdominal aortic aneurysm, hypothyroidism, fibromyalgia, restrictive lung disease; obesity admitted to [facility] on 01/22/25 with abdominal pain. Patient reported 4-5 day hx of abdominal pain with nausea, chest pain and shortness of breath. Reports her pain is located in the epigastrium and radiates to the back. Pt denied alcohol or illicit drug use. GI consulted for evaluation of GI bleedin AM, nursing reported one episode of melena, (of note BM was normal yesterday). hemodynamics stable. Type and Screen ordered. Protonix IV. Pt has been on Apixiban for AFIB and ASA. Those 2 medications are on hold. Pt made NPO and will start IVF. No reported hx of GIB. 0430 H/H stable 10/31.8, was 11.5/37.5, PLTs 325K, INR 2.7, VBG 7.48, 57, 76, 43, K 5.3. Administering 5 u R insulin and 25 G dextrose. Pt was placed on tele. Hemodynamics remained stable, pt appears comfortable lying in bed sleeping. Repeat H/H and K 10 AM Pt has baseline confusion and will not be able to sign blood consent if needed. No current indication for transfusion at this time. 0520 Pt had second episode of melena, hemodynamics remain stable. Stool sent for occult. 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 Low back pain Respiratory failure with hypoxia and hypercapnia Lower extremity weakness Nasal congestion Otitis externa Coronary artery disease Restrictive lung disease Diarrhea History of spinal stenosis Fibromyalgia Obesity (BMI 30-39.9) Carpal tunnel syndrome Abdominal aortic aneurysm Hypothyroid Obstructive sleep apnea Congestive heart failure Pernicious anemia Paroxysmal atrial fibrillation DVT (deep venous thrombosis) Diverticulitis GERD (gastroesophageal reflux disease) HTN (hypertension) Clostridium difficile colitis CAD (coronary artery disease) Hypercholesterolemia Family History Family History Father Hypertension CVD (cardiovascular disease) Mother Colon cancer Sister Leukemia Sister Colon cancer Son Lung cancer Colon polyps Surgical History Surgical History History of hip surgery S/P BREANN-BSO (total abdominal hysterectomy and bilateral salpingo-oophorectomy) History of arthroplasty of left shoulder Hx of cholecystectomy H/O angioplasty Hx of appendectomy H/O cardiac catheterization Social History Social History Household Members: None Household Members Other:: self Housing: House Do you presently have visiting nurse or other home services: Yes Alcohol intake: never Patient Tobacco Use Status: Former Tobacco user Tobacco use type: Cigarette Years Smoked: stopped 2009 e-Cigarette/Vaping Use: Never Used Second Hand Smoke Exposure: Yes Advance Directives Date on File: 10/10/21 service: No Current occupational status: retired Current occupational exposures/hazards: No Cognitive needs: No Hearing needs: No Vision needs: Yes Meds Allergies Allergy/AdvReac Type Severity Reaction Status Date / Time morphine (MORPHINE) Allergy Unknown RASH Verified 01/21/25 15:34 pregabalin (From LYRICA) Allergy Unknown NAUSEA, Verified 01/21/25 15:34 felt high on drugs Active Medications: Current Medications Acetaminophen (Acetaminophen 325 Mg Tablet) 650 mg PO Q6H PRN PRN Reason: Pain, Mild 1-3,fever,headache Last Admin: 01/23/25 09:59 Dose: 650 mg Albuterol/Ipratropium (Albuterol/Iprat 2.5/0.5mg 3 Ml Ampul.Neb) 3 ml INHALE RQ4H WHILE AWAKE PRN PRN Reason: Shortness of Breath Last Admin: 01/30/25 08:46 Dose: 3 ml Apixaban (Apixaban 5 Mg Tablet) 5 mg PO BID [facility] On Hold: 01/31/25 02:57 Last Admin: 01/30/25 21:37 Dose: 5 mg Ascorbic Acid (Ascorbic Acid 500 Mg Tablet) 500 mg PO BID [facility] Last Admin: 01/31/25 08:25 Dose: 500 mg Aspirin (Aspirin Enteric Coated 81 Mg Tablet.Dr) 81 mg PO DAILY [facility] On Hold: 01/31/25 02:57 Last Admin: 01/30/25 08:32 Dose: 81 mg Atorvastatin Calcium (Atorvastatin Calcium 80 Mg Tablet) 80 mg PO BEDTIME [facility] Last Admin: 01/30/25 21:37 Dose: 80 mg Benzonatate (Benzonatate 100 Mg Capsule) 100 mg PO TID PRN PRN Reason: Cough Calcium Carbonate (Calcium Carbonate 750 Mg Tab.Chew) 750 mg PO Q4H PRN PRN Reason: Heartburn Dextrose (Dextrose 50 % 25 Gm/50 Ml Syringe) 25 gm IVPUSH Q15M PRN; Protocol PRN Reason: per Hypoglycemia Standing Ord. Last Admin: 01/26/25 16:20 Dose: 25 gm Diltiazem HCl (Diltiazem Hcl Cd 120 Mg Cap.Er.Deg) 120 mg PO DAILY [facility]; Protocol Last Admin: 01/31/25 08:26 Dose: 120 mg Doxycycline Monohydrate (Doxycycline Monohydrate 100 Mg Capsule) 100 mg PO Q12H [facility] Last Admin: 01/31/25 00:11 Dose: 100 mg Duloxetine HCl (Duloxetine Hcl 30 Mg Capsule.) 30 mg PO DAILY [facility] Last Admin: 01/31/25 08:25 Dose: 30 mg Ezetimibe (Ezetimibe 10 Mg Tablet) 10 mg PO DAILY [facility] Last Admin: 01/31/25 08:25 Dose: 10 mg Fluticasone/Vilanterol (Fluticasone/Vilanterol 200/25 Blst.W.Dev) 1 puff INHALE RDAILY [facility] Last Admin: 01/30/25 08:47 Dose: 1 puff Furosemide (Furosemide 40 Mg/4 Ml Vial) 40 mg IVPUSH DAILY [facility]; Protocol On Hold: 01/25/25 11:10 Last Admin: 01/25/25 08:14 Dose: 40 mg Gabapentin (Gabapentin 100 Mg Capsule) 100 mg PO BEDTIME [facility] Last Admin: 01/30/25 21:37 Dose: 100 mg Glucose (Glucose Gel 15 Gm Gel..Gram.) 15 gm PO Q15M PRN; Protocol PRN Reason: per Hypoglycemia Standing Ord. Ceftriaxone Sodium 1 gm/ (Sodium Chloride) 50 mls @ 100 mls/hr IV Q24H [facility] Last Infusion: 01/30/25 13:48 Dose: Infused Sodium Chloride (Ns) 1,000 mls @ 100 mls/hr IVCONT .Q10H [facility] Last Admin: 01/31/25 03:22 Dose: 100 mls/hr Insulin Human Lispro (Insulin Lispro 100 Unit/Ml 3 Ml Vial) 0 unit SUBCUT QIDACHS [facility]; Protocol Last Admin: 01/31/25 08:10 Dose: Not Given Levothyroxine Sodium (Levothyroxine Sodium 100 Mcg Tablet) 100 mcg PO DAILY@0600 [facility] Last Admin: 01/31/25 05:15 Dose: 100 mcg Lidocaine (Lidocaine 4 % Patch Adh..Patch) 1 patch TRANSDERMA DAILY [facility]; Protocol Last Admin: 01/31/25 08:26 Dose: 1 patch Magnesium Hydroxide (Milk Of Magnesia 30 Ml Oral.Susp) 30 ml PO DAILY PRN PRN Reason: Constipation Last Admin: 01/30/25 13:04 Dose: 30 ml Melatonin (Melatonin 3 Mg Tablet) 6 mg PO BEDTIME PRN PRN Reason: Insomnia Methylprednisolone Sodium Succinate (Methylprednisolone Sod Succ 40 Mg/Ml Vial) 40 mg IVPUSH Q24H [facility] Last Admin: 01/30/25 13:05 Dose: 40 mg Metoprolol Succinate (Metoprolol Succinate Er 100 Mg Tab.Er.24h) 100 mg PO DAILY [facility]; Protocol Last Admin: 01/31/25 08:25 Dose: 100 mg Ondansetron HCl (Ondansetron Hcl 4 Mg/2 Ml Vial) 4 mg IVPUSH Q4H PRN PRN Reason: Nausea Last Admin: 01/30/25 13:26 Dose: 4 mg Pantoprazole Sodium (Pantoprazole Sodium 40 Mg/10 Ml Vial) 40 mg IVPUSH BID@0630,1630 [facility] Sodium Chloride (0.9 % Sodium Chloride Flush 3 Ml Syringe) 3 ml IVFLUSH QSHIFT [facility] Last Admin: 01/31/25 08:18 Dose: 3 ml Thiamine HCl (Thiamine Hcl 100 Mg Tablet) 100 mg PO DAILY [facility] Last Admin: 01/31/25 08:25 Dose: 100 mg Tramadol HCl (Tramadol Hcl 50 Mg Tablet) 50 mg PO Q6H PRN PRN Reason: Pain, Moderate(Pain Scale 4-6) Last Admin: 01/30/25 13:25 Dose: 50 mg Vitamin D (Cholecalciferol (Vitamin D3) 25 Mcg Tablet) 25 mcg PO DAILY [facility] Last Admin: 01/31/25 08:25 Dose: 25 mcg Home Medications ?Medication ?Instructions ?Recorded ?Confirmed ?Last Taken ?Type cholecalciferol (vitamin D3) 25 25 mcg PO DAILY 01/22/25 02/08/23 History mcg (1,000 unit) capsule (Vitamin D3) dicyclomine 10 mg capsule 10 mg PO Q6H PRN Abdominal P ain 12/01/19 01/22/25 Unknown History aspirin 81 mg tablet,delayed 81 mg PO DAILY 07/08/23 1 03/25/24 Unknown History release acetaminophen 650 mg 650 mg PO Q8H PRN Pain 07/1301/22/25 Unknown History tablet,extended release ipratropium 0.5 mg-albuterol 3 mg 3 ml inhalation QID PRN Shortness 07/14/23 01/22/25 Unknown History (2.5 mg base)/3 mL nebulization Of Breath Or Wheezing soln fluticasone 500 mcg-salmeterol 50 1 inh inhalation BID 11/27/24 01/22/25 Unknown History mcg/dose blistr powdr for inhalation (Blanca Solorzano) duloxetine 30 mg capsule,delayed 30 mg PO DAILY 01/22/25 Unknown History release Physical Exam 2 Vital Signs: Vital Signs: Last Vital Signs Temp 97.3 F 01/31/25 07:50 Pulse 78 01/31/25 07:50 Resp 16 01/31/25 07:50 BP 144/66 H 01/31/25 07:50 Pulse Ox 91 L 01/31/25 08:23 O2 Del Method Oxymask 01/31/25 08:23 O2 Flow Rate 1.5 01/31/25 08:23 Oxygen Flow Rate 2 01/22/25 07:46 BMI result Body Mass Index 39.4 Results Labs 02/01/25 05:47 02/01/25 05:47 Labs: Short CBC 01/31/25 Range/Units 04:04 WBC 8.7 (4.8-10.8) X10*3/uL Hgb 10.0 L (12.0-16.0) g/dl Hct 31.8 L (37.0-47.0) % Plt Count 325 (160-400) X10*3/uL BMP 01/31/25 04:04 Sodium 142 Potassium 5.3 H Chloride 101 Carbon Dioxide 32 H BUN 64 H Creatinine 1.09 Calcium 9.1 Liver Function 01/31/25 Range/Units 04:04 Total Bilirubin 0.4 (0.0-1.0) mg/dL AST 23 (5-31) U/L ALT 6 (0-31) U/L Alkaline Phosphatase 106 (39-117) U/L Albumin 3.3 L (3.5-5.0) g/dL Microbiology Microbiology Results: Microbiology 01/28/25 17:02 Urine clean catch - Clean Catch Midstream Urine Culture - Final 01/21/25 16:29 Blood - Venous Blood Culture - Final No growth after 5 days. 01/21/25 16:20 Blood - Venous Blood Culture - Final No growth after 5 days. Assessment and Plan (1) Acute GI bleeding: Status: Acute Plan 84 YF with HTN, HLD, CAD, CHF, chronic pain syndrome, degenerative spine disease, arthritis, HX C diff infection, pulmonary nodules, COPD, abdominal aortic aneurysm, hypothyroidism, fibromyalgia, restrictive lung disease; obesity admitted to [facility] on 01/22/25 with abdominal pain. GI consulted for evaluation of GI bleedin AM, nursing reported one episode of melena, (of note BM was normal yesterday). hemodynamics stable. Type and Screen ordered. Protonix IV. Pt has been on Apixiban for AFIB and ASA. Those 2 medications are on hold. Pt made NPO and will start IVF. No reported hx of GIB. 0430 H/H stable 12/18.8, was 11.5/37.5, PLTs 325K, INR 2.7, VBG 7.48, 57, 76, 43, K 5.3. Administering 5 u R insulin and 25 G dextrose. Pt was placed on tele. Hemodynamics remained stable, pt appears comfortable lying in bed sleeping. 0520 Pt had second episode of melena, hemodynamics remain stable. Stool sent for occult. Procedures Date of Service Date of Service: 02/01/25
[2025-01-31 10:32] LABS: Hematocrit 33.4 % (37.0-47.0); Hemoglobin 10.3 g/dl (12.0-16.0); Mean Corpuscular HGB Conc 30.8 g/dl (31.0-35.0); Mean Corpuscular Hemoglobin 27.3 pg (27.0-33.0); Mean Corpuscular Volume 88.6 fL (80.0-98.0); NRBC Abs Auto 0.000 X10*3/uL (0.0-0.012); NRBC Pct Auto 0.0 /100WBC (0.0-0.2); Platelet Count 303 X10*3/uL (160-400); Red Blood Count 3.77 X10*6/uL (4.20-5.50); White Blood Count 13.5 X10*3/uL (4.8-10.8)
[2025-01-31 11:52] LABS: Glucose, Whole Blood 111 mg/dL (60-115)
[2025-01-31] MEDS: Fluticasone/Vilanterol 200/25 BLST.W.DEV 1 PUFF INHALE (12:05)
--- NOTE | 2025-01-31 12:43 | P.PNIM_ITS ---
Subjective Subjective Date of Service: 01/31/25 Interval History: Episode of melena overnight. Nothing further. Hemoglobin stable Review of Systems Denies chest pain Denies shortness of breath Denies nausea vomiting diarrhea Denies fever chills Physical Exam 2 Vital Signs: Vital Signs: Last Vital Signs Temp 97.9 F 01/31/25 11:54 Pulse 72 01/31/25 12:10 Resp 18 01/31/25 12:10 BP 133/80 01/31/25 11:54 Pulse Ox 90 L 01/31/25 11:54 O2 Del Method Oxymask 01/31/25 11:54 O2 Flow Rate 1.5 01/31/25 11:54 Oxygen Flow Rate 2 01/22/25 07:46 BMI result Body Mass Index 39.4 Const: Other: Awake alert no acute distress Resp: Other: Clear to auscultation bilaterally no rales rhonchi or wheezes Cardio: Other: No S4; positive S1-S2; no S3 murmurs rubs or gallops GI: Other: Soft nontender nondistended normoactive bowel sounds Extrem: Other: No edema bilaterally Objective Data Active Medications Acetaminophen (Acetaminophen 325 Mg Tablet) 650 mg PO Q6H PRN PRN Reason: Pain, Mild 1-3,fever,headache Last Admin: 01/23/25 09:59 Dose: 650 mg Documented By: PIPER Albuterol/Ipratropium (Albuterol/Iprat 2.5/0.5mg 3 Ml Ampul.Neb) 3 ml INHALE RQ4H WHILE AWAKE PRN PRN Reason: Shortness of Breath Last Admin: 01/30/25 08:46 Dose: 3 ml Documented By: PASTOR Apixaban (Apixaban 5 Mg Tablet) 5 mg PO BID [facility] On Hold: 01/31/25 02:57 Last Admin: 01/30/25 21:37 Dose: 5 mg Documented By: MARU Ascorbic Acid (Ascorbic Acid 500 Mg Tablet) 500 mg PO BID [facility] Last Admin: 01/31/25 08:25 Dose: 500 mg Documented By: GEORGE Aspirin (Aspirin Enteric Coated 81 Mg Tablet.) 81 mg PO DAILY [facility] On Hold: 01/31/25 02:57 Last Admin: 01/30/25 08:32 Dose: 81 mg Documented By: TAN Atorvastatin Calcium (Atorvastatin Calcium 80 Mg Tablet) 80 mg PO BEDTIME [facility] Last Admin: 01/30/25 21:37 Dose: 80 mg Documented By: MARU Benzonatate (Benzonatate 100 Mg Capsule) 100 mg PO TID PRN PRN Reason: Cough Calcium Carbonate (Calcium Carbonate 750 Mg Tab.Chew) 750 mg PO Q4H PRN PRN Reason: Heartburn Dextrose (Dextrose 50 % 25 Gm/50 Ml Syringe) 25 gm IVPUSH Q15M PRN; Protocol PRN Reason: per Hypoglycemia Standing Ord. Last Admin: 01/26/25 16:20 Dose: 25 gm Documented By: CHRISTINE Diltiazem HCl (Diltiazem Hcl Cd 120 Mg Cap.Er.Deg) 120 mg PO DAILY [facility]; Protocol Last Admin: 01/31/25 08:26 Dose: 120 mg Documented By: GEORGE Doxycycline Monohydrate (Doxycycline Monohydrate 100 Mg Capsule) 100 mg PO Q12H [facility] Last Admin: 01/31/25 12:29 Dose: 100 mg Documented By: GEORGE Duloxetine HCl (Duloxetine Hcl 30 Mg Capsule.Dr) 30 mg PO DAILY [facility] Last Admin: 01/31/25 08:25 Dose: 30 mg Documented By: GEORGE Ezetimibe (Ezetimibe 10 Mg Tablet) 10 mg PO DAILY [facility] Last Admin: 01/31/25 08:25 Dose: 10 mg Documented By: GEORGE Fluticasone/Vilanterol (Fluticasone/Vilanterol 200/25 Blst.W.Dev) 1 puff INHALE RDAILY [facility] Last Admin: 01/31/25 12:05 Dose: 1 puff Documented By: CARMENZA Furosemide (Furosemide 40 Mg/4 Ml Vial) 40 mg IVPUSH DAILY [facility]; Protocol On Hold: 01/25/25 11:10 Last Admin: 01/25/25 08:14 Dose: 40 mg Documented By: BRIDGETT Gabapentin (Gabapentin 100 Mg Capsule) 100 mg PO BEDTIME [facility] Last Admin: 01/30/25 21:37 Dose: 100 mg Documented By: MARU Glucose (Glucose Gel 15 Gm Gel..Gram.) 15 gm PO Q15M PRN; Protocol PRN Reason: per Hypoglycemia Standing Ord. Ceftriaxone Sodium 1 gm/ (Sodium Chloride) 50 mls @ 100 mls/hr IV Q24H [facility] Last Admin: 01/31/25 12:29 Dose: 100 mls/hr Documented By: GEORGE Sodium Chloride (Ns) 1,000 mls @ 100 mls/hr IVCONT .Q10H [facility] Last Admin: 01/31/25 03:22 Dose: 100 mls/hr Documented By: MARU Insulin Human Lispro (Insulin Lispro 100 Unit/Ml 3 Ml Vial) 0 unit SUBCUT QIDACHS [facility]; Protocol Last Admin: 01/31/25 12:11 Dose: Not Given Documented By: GEORGE Non-Admin Reason: No Insulin Coverage Levothyroxine Sodium (Levothyroxine Sodium 100 Mcg Tablet) 100 mcg PO DAILY@0600 [facility] Last Admin: 01/31/25 05:15 Dose: 100 mcg Documented By: MARU Lidocaine (Lidocaine 4 % Patch Adh..Patch) 1 patch TRANSDERMA DAILY [facility]; Protocol Last Admin: 01/31/25 08:26 Dose: 1 patch Documented By: GEORGE Magnesium Hydroxide (Milk Of Magnesia 30 Ml Oral.Susp) 30 ml PO DAILY PRN PRN Reason: Constipation Last Admin: 01/30/25 13:04 Dose: 30 ml Documented By: TAN Melatonin (Melatonin 3 Mg Tablet) 6 mg PO BEDTIME PRN PRN Reason: Insomnia Methylprednisolone Sodium Succinate (Methylprednisolone Sod Succ 40 Mg/Ml Vial) 40 mg IVPUSH Q24H [facility] Last Admin: 01/31/25 12:29 Dose: 40 mg Documented By: GEORGE Metoprolol Succinate (Metoprolol Succinate Er 100 Mg Tab.Er.24h) 100 mg PO DAILY [facility]; Protocol Last Admin: 01/31/25 08:25 Dose: 100 mg Documented By: GEORGE Ondansetron HCl (Ondansetron Hcl 4 Mg/2 Ml Vial) 4 mg IVPUSH Q4H PRN PRN Reason: Nausea Last Admin: 01/30/25 13:26 Dose: 4 mg Documented By: TAN Pantoprazole Sodium (Pantoprazole Sodium 40 Mg/10 Ml Vial) 40 mg IVPUSH BID@0630,1630 [facility] Sodium Chloride (0.9 % Sodium Chloride Flush 3 Ml Syringe) 3 ml IVFLUSH QSHIFT [facility] Last Admin: 01/31/25 08:18 Dose: 3 ml Documented By: GEORGE Thiamine HCl (Thiamine Hcl 100 Mg Tablet) 100 mg PO DAILY [facility] Last Admin: 01/31/25 08:25 Dose: 100 mg Documented By: GEORGE Tramadol HCl (Tramadol Hcl 50 Mg Tablet) 50 mg PO Q6H PRN PRN Reason: Pain, Moderate(Pain Scale 4-6) Last Admin: 01/30/25 13:25 Dose: 50 mg Documented By: TAN Vitamin D (Cholecalciferol (Vitamin D3) 25 Mcg Tablet) 25 mcg PO DAILY [facility] Last Admin: 01/31/25 08:25 Dose: 25 mcg Documented By: GEORGE Labs 01/31/25 10:17 01/31/25 04:04 Labs: Laboratory Results - last 24 hr 01/30/25 01/30/25 01/31/25 16:00 21:15 02:59 MCV MCH MCHC RDW Plt Count MPV Immature Gran % (Auto) Neut % (Auto) Lymph % (Auto) [place] % (Auto) Eos % (Auto) Baso % (Auto) Lymph # (Auto) [place] # (Auto) Eos # (Auto) Baso # (Auto) Abs Immat Gran (auto) Absolute Neuts (auto) Absolute Nucleated RBC Nucleated RBC % (auto) PT INR APTT VBG pH VBG pCO2 VBG pO2 VBG HCO3 VBG O2 Saturation VBG Base Excess Anion Gap Estim Creat Clear Calc Estimated GFR POC Glucose 149 H 206 H 97 Random Glucose Lactic Acid Calcium Total Bilirubin AST ALT Alkaline Phosphatase Total Protein Albumin Stool Occult Blood Blood Type Antibody Screen 01/31/25 01/31/25 01/31/25 04:04 04:11 05:25 MCV 87.8 MCH 27.6 MCHC 31.4 RDW 15.1 Plt Count 325 MPV 10.3 Immature Gran % (Auto) 1.0 H Neut % (Auto) 77.6 H Lymph % (Auto) 15.1 L [place] % (Auto) 6.1 Eos % (Auto) 0.0 Baso % (Auto) 0.2 Lymph # (Auto) 1.3 [place] # (Auto) 0.5 Eos # (Auto) 0.0 Baso # (Auto) 0.0 Abs Immat Gran (auto) 0.09 H Absolute Neuts (auto) 6.7 Absolute Nucleated RBC 0.000 Nucleated RBC % (auto) 0.0 PT 25.2 H INR 2.1 H APTT 33.1 VBG pH 7.48 H VBG pCO2 57 VBG pO2 76 VBG HCO3 43 H VBG O2 Saturation 95.0 VBG Base Excess 17.7 Anion Gap 14 Estim Creat Clear Calc 40.3 Estimated GFR 48 POC Glucose Random Glucose 129 H Lactic Acid 1.4 Calcium 9.1 Total Bilirubin 0.4 AST 23 ALT 6 Alkaline Phosphatase 106 Total Protein 5.9 L Albumin 3.3 L Stool Occult Blood POSITIVE Blood Type A Positive Antibody Screen NEGATIVE 01/31/25 01/31/25 01/31/25 07:48 10:17 11:36 MCV 88.6 MCH 27.3 MCHC 30.8 L RDW 15.3 Plt Count 303 MPV 10.3 Immature Gran % (Auto) Neut % (Auto) Lymph % (Auto) [place] % (Auto) Eos % (Auto) Baso % (Auto) Lymph # (Auto) [place] # (Auto) Eos # (Auto) Baso # (Auto) Abs Immat Gran (auto) Absolute Neuts (auto) Absolute Nucleated RBC 0.000 Nucleated RBC % (auto) 0.0 PT INR APTT VBG pH VBG pCO2 VBG pO2 VBG HCO3 VBG O2 Saturation VBG Base Excess Anion Gap Estim Creat Clear Calc Estimated GFR POC Glucose 146 H 111 Random Glucose Lactic Acid Calcium Total Bilirubin AST ALT Alkaline Phosphatase Total Protein Albumin Stool Occult Blood Blood Type Antibody Screen Assessment and Plan (1) Acute GI bleeding: Status: Acute (2) Urinary tract infection: Status: Acute Plan d8, 84yo M with chronic systolic HF, CAD, HTN, HLD, DM2, chronic pain, hx C. difficile, COPD, AAA, hypothyroidism, FM, restrictive lung disease, morbid obesity presenting with abd pain, admitted for suspected CHF exacerbation; complicated by SHANEL so diuresis held; found to have RLL PNA and COPD flare along with UTI/cystitis 1. Melena -intermittent; hemoglobin stable -GI consult pending 2..Cystitis/UTI - ceftriaxone (4)... Culture with mixed nichole -complete a course of Ceftin 3. Right lower lobe infiltrate - ceftriaxone/doxycycline (4) -O2 titrated back to baseline. . . 2 L -switch to oral upon DC 4.COPD exacerbation -improved with therapy -p.o. prednisone as outpatient completeness -continue all other outpatient therapies 5.SHANEL - suspect due to overdiuresis; monitor SCr while holding diuresis -follow renals divalent in a.m. 6.Acute/chronic HFrEF - holding furosemide as above - clinically improved -continue current therapies 7. Chronic atrial fibrillation -acceptable control on current therapies.. Eliquis as ordered -adjust as clinically indicate Full code Eliquis Requires ongoing hospitalization to treat pneumonia with IV antibiotics Quality Stroke Does the patient have a stroke diagnosis?: No VTE Prior VTE?: No VTE Risk Level:: Medical - moderate - high VTE Device Contraindication: Treatment Not Indicated VTE Drug Contraindication: N/A - Med Ordered
[2025-01-31 16:00] LABS: Glucose, Whole Blood 107 mg/dL (60-115)
--- NOTE | 2025-01-31 18:12 | PC.NURSE ---
Patient was incontinent of large loose black bloody bowel movement ,Dr. Booth notified
[2025-01-31 21:10] LABS: Glucose, Whole Blood 168 mg/dL (60-115)
--- NOTE | 2025-02-01 | ECG_ITS ---
Test Reason : hyperkalemia Blood Pressure : */* mmHG Vent. Rate : 83 BPM Atrial Rate : * BPM P-R Int : * ms QRS Dur : 90 ms QT Int : 358 ms P-R-T Axes : * 82 117 degrees QTcB Int : 420 ms Atrial fibrillation Septal infarct (cited on or before 06-Sep-2023) Abnormal ECG When compared with ECG of 21-Jan-2025 17:17, QRS axis Shifted left Referred By: Lea Mercado Electronically Signed By: Adelfo Anthony
[2025-02-01 03:14] VITALS: BP 157/73; PULSE 81; RESP 16; TEMP 36.4; O2SAT 93
--- NOTE | 2025-02-01 05:59 | PC.NURSE ---
patient had 2 episodes of melena overnight
[2025-02-01 06:02] LABS: MANUAL DIFF FLAG NO
[2025-02-01 06:06] LABS: Hematocrit 33.8 % (37.0-47.0); Hemoglobin 10.2 g/dl (12.0-16.0); Imm Gran Abs Auto 0.10 X10*3/uL (0.00-0.03); Imm Gran Pct Auto 1.3 % (0.0-0.4); Lymphocytes Absolute Auto 1.9 X10*3/uL (1.2-4.9); Mean Corpuscular HGB Conc 30.2 g/dl (31.0-35.0); Mean Corpuscular Hemoglobin 27.4 pg (27.0-33.0); Mean Corpuscular Volume 90.9 fL (80.0-98.0); NRBC Abs Auto 0.000 X10*3/uL (0.0-0.012); NRBC Pct Auto 0.0 /100WBC (0.0-0.2); Platelet Count 308 X10*3/uL (160-400); Red Blood Count 3.72 X10*6/uL (4.20-5.50); White Blood Count 7.7 X10*3/uL (4.8-10.8)
[2025-02-01 06:41] LABS: Alanine Aminotransferase 8 U/L (0-31); Albumin Level 3.2 g/dL (3.5-5.0); Alkaline Phosphatase 96 U/L (39-117); Anion Gap 13 (12-20); Aspartate Amino Transferase 20 U/L (5-31); Blood Urea Nitrogen 56 mg/dL (9-16); Calcium 9.0 mg/dL (8.4-10.2); Carbon Dioxide 28 mmol/L (22-29); Chloride 106 mmol/L (96-108); Creatinine Clr Calc Pharmacy 41.1; Estimated Glomerular Filt Rate 49; Potassium 6.0 mmol/L (3.3-5.1); Sodium 141 mmol/L (135-145); Total Protein 5.8 g/dL (6.5-8.0)
[2025-02-01 07:21] LABS: Glucose, Whole Blood 114 mg/dL (60-115)
[2025-02-01 07:22] VITALS: BP 147/68; PULSE 82; RESP 16; TEMP 36.1; O2SAT 97
[2025-02-01] MEDS: Fluticasone/Vilanterol 200/25 BLST.W.DEV 1 PUFF INHALE (07:49)
[2025-02-01 07:52] VITALS: PULSE 91; RESP 20; O2SAT 95
[2025-02-01 10:08] VITALS: BP 133/60; PULSE 94
[2025-02-01] MEDS: Metoprolol Succinate ER 100 MG TAB.ER.24H PO (11:22)
[2025-02-01] MEDS: dilTIAZem HCL CD 120 MG CAP.ER.DEG PO (11:22)
[2025-02-01] MEDS: Lidocaine 4 % Patch ADH..PATCH 1 PATCH TRANSDERMA (11:24)
--- NOTE | 2025-02-01 11:41 | MHC.CM.PN ---
Patient medically cleared for dc home w/ resumption of [employer] and [facility] services. Mago @ [facility] confirms resumption of [employer] services today at 5pm. BLS transport scheduled for 430pm. Patient, daughter, RN and MD aware. IMM delivered.
[2025-02-01 11:42] LABS: Glucose, Whole Blood 106 mg/dL (60-115)
[2025-02-01 12:00] VITALS: BP 114/61; PULSE 88; RESP 18; O2SAT 94
--- NOTE | 2025-02-01 14:42 | P.DS_ITS ---
DS: Providers Provider Date of admission: 01/21/25 19:50 Date of discharge: 02/01/25 Primary care physician: Chantal Lay MD Consults: 01/21/25 19:49 Consult to Cardiology Routine Consulting Provider: [facility] Reason for consultation: chf 01/27/25 12:04 Consult to Wound Care Routine Consulting Provider: [facility] W[facility] Management Reason for consultation: MASD gam[place] area 01/31/25 02:59 Consult to Gastroenterology Routine Consulting Provider: Michele Dukes Reason for consultation: possible GIB new on blood thinners for AFIB DS: Diagnosis Discharge Diagnosis (1) Acute GI bleeding: Status: Acute DS: Summary Hospital Course Hospital Course: 84-year-old female with a past medical history of HTN, HLD, CAD, CHF, chronic pain syndrome, degenerative spine disease, arthritis, HX C diff infection, pulmonary nodules, COPD, abdominal aortic aneurysm, hypothyroidism, fibromyalgia, restrictive lung disease; obesity presented to the hospital with a chief complaint of abdominal pain. Patient mentioned that over the past 4-5 days she has been having abdominal pain associated nausea. Also reports having chest pain and shortness of breath. Hospital [facility] Patient admitted to hospital and started on IV Lasix to treat likely CHF. She was seen by Cardiology who agreed with continued IV diuresis. Echo was done which showing LVEF of 40%. Over the course of the next several days her creatinine began to rise likely from over-diuresis. Lasix was stopped and creatinine returned to baseline. During this admission patient did have several bouts of melena however hemoglobin remained stable. She was seen in consultation by GI who stated given her age and overall health she does not a good candidate for colonoscopy. Her hemoglobin has remained stable without further bleeding. At this point in time she is medically acceptable to returned to home and resume her 24 hour care Time Attestation Discharge Coordination Time (in mins): 35 Quality: Safe Use of Opioids Does Pt have an Active Cancer Diagnosis on the Problem List?: No Quality: Stroke Does the patient have a stroke diagnosis?: No Physical Exam Vital Signs: Vital Signs: Last Vital Signs Temp 97.0 F 02/01/25 07:22 Pulse 88 02/01/25 12:00 Resp 18 02/01/25 12:00 BP 114/61 02/01/25 12:00 Pulse Ox 94 02/01/25 12:00 O2 Del Method Oxymask 02/01/25 12:00 O2 Flow Rate 2 02/01/25 12:00 Oxygen Flow Rate 2 01/22/25 07:46 BMI result Body Mass Index 39.4 Const: Other: Awake alert no acute distress Resp: Other: Clear to auscultation bilaterally no rales rhonchi or wheezes Cardio: Other: No S4; positive S1-S2; no S3 murmurs rubs or gallops GI: Other: Soft nontender nondistended normoactive bowel sounds Extrem: Other: No edema bilaterally DS: Data Data Completed and Pending Completed studies during hospitalization [Text1]: Procedures Packing of Nasal Region using Packing Material (07/14/23) Reposition Right Upper Femur with Intramedullary Internal Fixation Device, Percutaneous Approach (02/08/23) Labs on day of discharge: Laboratory Results - last 24 hr 01/31/25 01/31/25 02/01/25 15:57 21:05 05:47 WBC 7.7 RBC 3.72 L Hgb 10.2 L Hct 33.8 L MCV 90.9 MCH 27.4 MCHC 30.2 L RDW 15.3 Plt Count 308 MPV 10.4 Immature Gran % (Auto) 1.3 H Neut % (Auto) 66.2 Lymph % (Auto) 25.2 [place] % (Auto) 7.2 Eos % (Auto) 0.0 Baso % (Auto) 0.1 Lymph # (Auto) 1.9 [place] # (Auto) 0.6 Eos # (Auto) 0.0 Baso # (Auto) 0.0 Abs Immat Gran (auto) 0.10 H Absolute Neuts (auto) 5.1 Absolute Nucleated RBC 0.000 Nucleated RBC % (auto) 0.0 Sodium 141 Potassium 6.0 H* Chloride 106 Carbon Dioxide 28 Anion Gap 13 BUN 56 H Creatinine 1.07 Estim Creat Clear Calc 41.1 Estimated GFR 49 POC Glucose 107 168 H Fasting Glucose 132 H Calcium 9.0 Total Bilirubin 0.5 AST 20 ALT 8 Alkaline Phosphatase 96 Total Protein 5.8 L Albumin 3.2 L 02/01/25 02/01/25 07:04 11:37 WBC RBC Hgb Hct MCV MCH MCHC RDW Plt Count MPV Immature Gran % (Auto) Neut % (Auto) Lymph % (Auto) [place] % (Auto) Eos % (Auto) Baso % (Auto) Lymph # (Auto) [place] # (Auto) Eos # (Auto) Baso # (Auto) Abs Immat Gran (auto) Absolute Neuts (auto) Absolute Nucleated RBC Nucleated RBC % (auto) Sodium Potassium Chloride Carbon Dioxide Anion Gap BUN Creatinine Estim Creat Clear Calc Estimated GFR POC Glucose 114 106 Fasting Glucose Calcium Total Bilirubin AST ALT Alkaline Phosphatase Total Protein Albumin Discharge Plan Discharge Anticipated Discharge Date/Time: 02/01/25 14:33 Patient Disposition: Home Health Service Discharge Diagnosis: UTI Referrals: [facility] [Other] - 1 Week Referral Note: resume [employer] services [facility] [Outside] - 3-5 Days Referral Note: resume nursing services Alireza,Chantal Albrecht MD [Primary Care Provider, Internal Medicine] - 1 Week Discharge Medications: Continued (DME) stair lift and ramp See Rx Instructions .Route .MEDSUPPLY Qty: 1 0RF Rx Instructions: As directed (DME) blood-glucose meter [OneTouch Ultra2 Meter] Kit See Rx Instructions .Route Qty: 1 0RF Rx Instructions: As directed (DME) blood-glucose meter [OneTouch UltraMini] Kit See Rx Instructions .Route Qty: 1 0RF Rx Instructions: As directed (DME) Wheelchair Ramp See Rx Instructions .Route .MEDSUPPLY Qty: 1 0RF Rx Instructions: As directed (DME) Transfer Bench Misc See Rx Instructions .Route Qty: 1 0RF Rx Instructions: As directed for bath tub (DME) blood pressure monitor [Blood Pressure Kit] Kit See Rx Instructions .Route Qty: 1 0RF Rx Instructions: As directed (DME) [facility] Bed diagnosis I50.32 See Rx Instructions .Route .MEDSUPPLY Qty: 1 0RF Rx Instructions: As directed, GERMAN 99 (DME) Nebulizer supplies See Rx Instructions .Route .MEDSUPPLY Qty: 3 3RF Rx Instructions: As directed (DME) Air mattress See Rx Instructions .Route .MEDSUPPLY Qty: 1 0RF Rx Instructions: As directed nitroglycerin 0.4 mg tablet, sublingual 0.4 mg sublingual Q5M PRN (Reason: for angina) 90 Days Qty: 25 0RF (DME) FOUR WHEEL SCOOTER See Rx Instructions .Route .MEDSUPPLY Qty: 1 0RF Rx Instructions: As directed (DME) pads for bedsores 7 7/8 X 11 3/4 pad See Rx Instructions .Route Qty: 50 11RF Rx Instructions: As directed (DME) pressure release mattress See Rx Instructions .Route .MEDSUPPLY Qty: 1 0RF Rx Instructions: As directed (DME) OneTouch Ultra Test Strip See Rx Instructions .ROUTE .COMPLEX Qty: 100 3RF Dose Instruction: DIRECTED TEST BLOOD GLUCOSE DAILY Rx Instructions: DIRECTED TEST BLOOD GLUCOSE DAILY (DME) lancets Misc See Rx Instructions .Route Qty: 100 3RF Rx Instructions: As directed test blood glucose daily (DME) lancets [OneTouch Delica Plus Lancet] 33 gauge misc See Rx Instructions .ROUTE .COMPLEX Qty: 100 0RF Dose Instruction: USE TO TEST DAILY Rx Instructions: USE TO TEST DAILY loperamide [Imodium A-D] 2 mg capsule 2 mg PO Q6H PRN (Reason: loose stool) Qty: 14 0RF Debrox 6.5 % drops 10 drp otic (ears) DAILY 4 Days Qty: 15 0RF polymyxin B sulf-trimethoprim 10,000 unit- 1 mg/mL drops 1 drp ophthalmic (eye) QID 7 Days Qty: 10 0RF thiamine HCl (vitamin B1) 100 mg tablet 100 mg PO DAILY Qty: 90 2RF (DME) POWER WHEELCHAIR See Rx Instructions .Route .MEDSUPPLY Qty: 1 0RF Rx Instructions: As directed ketoconazole 2 % shampoo 1 appl topical 2XW Qty: 120 2RF nystatin 100,000 unit/gram cream 1 appl topical TID Qty: 30 1RF gabapentin 100 mg capsule 100 mg PO BEDTIME Qty: 90 1RF meclizine 12.5 mg tablet 12.5 mg PO BID PRN (Reason: for motion sickness) Qty: 60 5RF (DME) UNDERPADS Disposable BED See Rx Instructions .Route .MEDSUPPLY Qty: 3 11RF Rx Instructions: As directed (DME) pads overnight- large See Rx Instructions .Route .MEDSUPPLY Qty: 2 0RF Rx Instructions: As directed Desitin Multi-Purpose 71.3 % ointment 1 appl topical BID-TID PRN (Reason: dry skin) Qty: 99 1RF levothyroxine 100 mcg tablet 100 mcg PO DAILY@0600 Qty: 90 3RF dexlansoprazole 30 mg capsule,biphase delayed releas 30 mg PO DAILY Qty: 90 3RF cyanocobalamin (vitamin B-12) 1,000 mcg/mL solution 1,000 mcg IM Q4W 90 Days Qty: 4 15RF (DME) Purewick external catheter See Rx Instructions .Route .MEDSUPPLY Qty: 1 0RF Rx Instructions: As directed cetirizine 10 mg tablet 10 mg PO DAILY PRN (Reason: for allergies) Qty: 90 1RF Adult 50 Plus Probiotic 4 billion cell capsule 4,000 mmu cells PO DAILY Qty: 30 2RF Rx Instructions: administer with a meal albuterol sulfate 90 mcg/actuation HFA aerosol inhaler 2 puff PO Q4H PRN (Reason: for respiratory distress) Qty: 8.5 5RF (DME) BD Integra Syringe 3 mL 25 gauge x 5/8 syringe See Rx Instructions .Route Qty: 100 12RF Rx Instructions: As directed ondansetron HCl 8 mg tablet 8 mg PO Q12H PRN (Reason: nausea and vomiting) Qty: 30 0RF ascorbic acid (vitamin C) 500 mg tablet 500 mg PO BID Qty: 180 3RF albuterol sulfate 2.5 mg /3 mL (0.083 %) solution for nebulization 2.5 mg inhalation Q6H PRN (Reason: for wheezing) Qty: 180 11RF atorvastatin 80 mg tablet 80 mg PO BEDTIME Qty: 90 1RF clotrimazole 1 % cream 1 appl topical BID PRN (Reason: Rash) Qty: 45 11RF Trulicity 3 mg/0.5 mL pen injector 3 mg subcut SA Qty: 2 3RF (DME) replacement mattress for her hospital bed See Rx Instructions .Route .MEDSUPPLY Qty: 1 0RF Rx Instructions: As directed (DME) Half bed rail for hospital bed See Rx Instructions .Route .MEDSUPPLY Qty: 2 0RF Rx Instructions: As directed diltiazem HCl [Cardizem CD] 120 mg capsule,extended release 24hr 120 mg PO DAILY Qty: 90 2RF Protocol: Hold for SBP/HR < HOLD for SBP < : 90 HOLD for HR < : 60 metoprolol succinate 100 mg tablet extended release 24 hr 100 mg PO DAILY Qty: 30 2RF (DME) hospital bed See Rx Instructions .Route .MEDSUPPLY Qty: 1 0RF Rx Instructions: As directed (DME) Reclining wheelchair See Rx Instructions .Route .MEDSUPPLY Qty: 1 0RF Rx Instructions: As directed furosemide 40 mg tablet 20 - 40 mg PO DAILY Qty: 90 3RF Eliquis 5 mg tablet 5 mg PO BID 90 Days Qty: 180 0RF tramadol 50 mg tablet 50 mg PO Q6H PRN (Reason: Pain) Qty: 30 0RF ezetimibe 10 mg tablet 10 mg PO DAILY Qty: 90 3RF cholecalciferol (vitamin D3) [Vitamin D3] 25 mcg (1,000 unit) Capsule 25 mcg PO DAILY dicyclomine 10 mg Capsule 10 mg PO Q6H PRN (Reason: Abdominal Pain) aspirin 81 mg Tablet,Delayed Release (Dr/Ec) 81 mg PO DAILY ipratropium-albuterol 0.5 mg-3 mg(2.5 mg base)/3 mL solution for nebulization 3 ml inhalation QID PRN (Reason: Shortness Of Breath Or Wheezing) acetaminophen 650 mg Tablet Extended Release 650 mg PO Q8H PRN (Reason: Pain) duloxetine 30 mg capsule,delayed release(DR/EC) 30 mg PO DAILY Rx Instructions: TAKE 1 CAPSULE BY MOUTH EVERY DAY fluticasone propion-salmeterol [Wixela Inhub] 500-50 mcg/dose blister with device 1 inh inhalation BID (DME) compress.stocking,knee,reg,lrg Misc See Rx Instructions .Route Qty: 12 0RF Rx Instructions: As directed 20-30 mm HG Discontinued nitrofurantoin monohyd/m-cryst [Macrobid] 100 mg capsule 100 mg PO Q12H 7 Days Qty: 14 0RF Rx Instructions: must administer with a meal/food Discharge Orders: Discharge Order (Routine); Ordered 02/01/25 Ordered By: Nilay Booth Diet: Advance to usual diet Activity on Discharge: As tolerated Stand Alone Forms: Patient Portal Discharge page Print Language: Chinese Care Plan Goals: Resume all meds as taken prior to the hospital/listed on transfer sheet Health Concerns: Resume all home care services Plan of Treatment: Follow up with PCP next available Assessment: See discharge summary
[2025-02-01 16:00] VITALS: BP 115/56; PULSE 82; RESP 18; TEMP 36.3; O2SAT 97
== END 2025-02-01 16:46 | disposition home health service (06) | DRG 291 ==
LOC: HO.ED 18:31 → HO.EDOVER 19:57 → HO.IMC 01-22 12:30 → HO.S3 01-27 16:48
PROVIDERS: Family Medicine; Internal Medicine; Internal Medicine Gastroenterology; Nurse Practitioner Family; Admitting Provider Hospitalist; Emergency Provider Emergency Medicine; PCP Internal Medicine; Visit Provider Hospitalist
DX: I11.0 Hypertensive heart disease with heart failure (principal); I50.23 Acute on chronic systolic (congestive) heart failure; J18.9 Pneumonia, unspecified organism; N17.9 Acute kidney failure, unspecified; J44.0 Chronic obstructive pulmonary disease with (acute) lower respiratory infection; J44.1 Chronic obstructive pulmonary disease with (acute) exacerbation; K92.1 Melena; I25.10 Atherosclerotic heart disease of native coronary artery without angina pectoris; Z20.822 Contact with and (suspected) exposure to COVID-19; G47.33 Obstructive sleep apnea (adult) (pediatric); E11.9 Type 2 diabetes mellitus without complications; I48.0 Paroxysmal atrial fibrillation; E66.01 Morbid (severe) obesity due to excess calories; Z68.39 Body mass index [BMI] 39.0-39.9, adult; Z71.3 Dietary counseling and surveillance; R31.29 Other microscopic hematuria; M54.9 Dorsalgia, unspecified; M79.7 Fibromyalgia; K59.00 Constipation, unspecified; E03.9 Hypothyroidism, unspecified; N30.90 Cystitis, unspecified without hematuria; M47.816 Spondylosis without myelopathy or radiculopathy, lumbar region; G89.4 Chronic pain syndrome; Z91.199 Patient's noncompliance with other medical treatment and regimen due to unspecified reason; Z79.01 Long term (current) use of anticoagulants; Z79.82 Long term (current) use of aspirin; Z79.85 Long-term (current) use of injectable non-insulin antidiabetic drugs; Z79.890 Hormone replacement therapy; Z79.899 Other long term (current) drug therapy
CPT/HCPCS: 36415; 71045; 71046; 71250; 72131; 74176; 74177; 80048; 80053; 80076; 81001; 82272; 82803; 82947; 83605; 83735; 83880; 84145; 84484; 85025; 85027; 85610; 85652; 85730; 86140; 86850; 86900; 86901; 87040; 87086; 87637; 93005; 93306; 94640; 97162; 99285; J0696; J1938; J2405; J2470; J2919; Q9957; Q9967

== ENCOUNTER → 2025-01-21 15:43 | Outpatient (BNV) | payer OTHER, SELFPAY | PROVIDERS: Emergency Provider Emergency Medicine; PCP Internal Medicine; Visit Provider Radiology Diagnostic Radiology | DX: R62.7 Adult failure to thrive (principal); I51.7 Cardiomegaly; R91.8 Other nonspecific abnormal finding of lung field | CPT/HCPCS: 71045; 71250; 74176 ==

== ENCOUNTER 2025-01-21 19:50 | Outpatient (BNV) | payer OTHER, SELFPAY | END 2025-01-31 10:40 | PROVIDERS: Admitting Provider Hospitalist; Emergency Provider Emergency Medicine; PCP Internal Medicine; Visit Provider Radiology Diagnostic Radiology | DX: R06.02 Shortness of breath (principal) | CPT/HCPCS: 71045 ==

== ENCOUNTER 2025-01-21 19:50 | Outpatient (BNV) | payer OTHER, SELFPAY | END 2025-01-27 15:36 | PROVIDERS: Admitting Provider Hospitalist; Emergency Provider Emergency Medicine; PCP Internal Medicine; Visit Provider Radiology Diagnostic Radiology | DX: N32.89 Other specified disorders of bladder (principal); I71.43 Infrarenal abdominal aortic aneurysm, without rupture; I25.10 Atherosclerotic heart disease of native coronary artery without angina pectoris; R91.8 Other nonspecific abnormal finding of lung field | CPT/HCPCS: 74177 ==

== ENCOUNTER 2025-01-21 19:50 | Outpatient (BNV) | payer OTHER, SELFPAY | END 2025-01-26 10:45 | PROVIDERS: Admitting Provider Hospitalist; Emergency Provider Emergency Medicine; PCP Internal Medicine; Visit Provider Radiology Diagnostic Radiology | DX: I51.7 Cardiomegaly (principal) | CPT/HCPCS: 71046 ==

== ENCOUNTER 2025-01-21 19:50 | Outpatient (BNV) | payer OTHER, SELFPAY | END 2025-01-24 14:48 | PROVIDERS: Admitting Provider Hospitalist; Emergency Provider Emergency Medicine; PCP Internal Medicine; Visit Provider Radiology Diagnostic Radiology | DX: M46.96 Unspecified inflammatory spondylopathy, lumbar region (principal) | CPT/HCPCS: 72131 ==

== ENCOUNTER 2025-01-21 19:50 | Outpatient (BNV) | payer OTHER, SELFPAY | END 2025-02-01 08:21 | PROVIDERS: Admitting Provider Hospitalist; Emergency Provider Emergency Medicine; PCP Internal Medicine; Visit Provider Internal Medicine Cardiovascular Disease | DX: I48.91 Unspecified atrial fibrillation (principal); I25.2 Old myocardial infarction | CPT/HCPCS: 93010 ==

== ENCOUNTER 2025-01-21 19:50 | Outpatient (BNV) | payer OTHER, SELFPAY | END 2025-01-22 07:00 | PROVIDERS: Admitting Provider Hospitalist; Emergency Provider Emergency Medicine; PCP Internal Medicine; Visit Provider Internal Medicine | DX: I50.9 Heart failure, unspecified (principal); I35.8 Other nonrheumatic aortic valve disorders; I34.81 Nonrheumatic mitral (valve) annulus calcification | CPT/HCPCS: 93306 ==

== ENCOUNTER → 2025-01-21 19:50 | Outpatient (BNV) | payer OTHER, SELFPAY | PROVIDERS: Admitting Provider Hospitalist; Emergency Provider Emergency Medicine; PCP Internal Medicine; Visit Provider Internal Medicine | DX: I50.9 Heart failure, unspecified (principal); I48.91 Unspecified atrial fibrillation | CPT/HCPCS: 93010; 99223; 99233 ==

== ENCOUNTER → 2025-01-21 19:50 | Outpatient (BNV) | payer OTHER, SELFPAY | PROVIDERS: Admitting Provider Hospitalist; Emergency Provider Emergency Medicine; PCP Internal Medicine; Visit Provider Internal Medicine | DX: I50.43 Acute on chronic combined systolic (congestive) and diastolic (congestive) heart failure (principal); R10.13 Epigastric pain; R10.84 Generalized abdominal pain | CPT/HCPCS: 99222; 99232; 99233; 99499 ==